=== PATIENT | male | born 1940 | race Caucasian/White ===

== ENCOUNTER 2017-08-09 17:58 | Inpatient (IN) | payer MEDICARE, SELFPAY ==
[2017-08-09 18:00] VITALS: BP 139/89; PULSE 89; RESP 20; TEMP 37.1; O2SAT 99; BMI 26.9
[2017-08-09 18:36] LABS: Anion Gap 9 (5-15); BUN 25 mg/dL (7-18); BUN/Creat Ratio 21.2 RATIO (10-20); Calcium,Total 8.6 mg/dL (8.5-10.1); Chloride 109 mmol/L (98-107); Creatinine, Serum 1.18 mg/dL (0.70-1.30); EST Glomerular Filtration Rate 63 mL/min (>60); Est Glom Filt Rate - Afr Amer 77 mL/min (>60); Estimated Creatinine Clearance 52.41 ml/min; Glucose 91 mg/dL (70-110); Potassium 3.7 mmol/L (3.5-5.1); Sodium Level 146 mmol/L (136-145)
[2017-08-09 18:49] LABS: Prothrombin Time (Protime)PT. 37.2 SECONDS (11.7-14.9)
[2017-08-09 18:50] LABS: Absolute Lymphocyte Count 1.22 X10^3/ul (0.83-4.51); Absolute Neutrophil Count 5.1 X10^3/uL (2.0-7.7); Basophil# 0.02 X10^3/uL; Basophil% 0.3 % (0-1); Eosinophil# 0.02 X10^3/uL; Eosinophils% 0.3 % (0-5); Hematocrit 31.5 % (40-54); Lymphocyte # 1.22 X10^3/ul (4.0); Lymphocyte % 17.7 % (19-41); Mean Corp Hgb Conc 28.6 g/gl (32-36); Mean Corpuscular Hgb 31.4 pg (27.0-32.0); Mean Corpuscular Volume 109.8 fL (80-94); Mean Platelet Vol. 11.4 fl (6.2-12.0); Monocyte# 0.57 X10^3/uL; Monocyte% 8.3 % (0-10); Neutrophil # 5.05 X10^3/uL (2.7-7.7); Neutrophil % 73.3 % (47-70); Platelet Count 185 K/mm3 (150-450); RBC Distribution Width SD 74.7 fl (35.1-43.9); Red Blood Count 2.87 M/mm3 (4.6-6.2); White Blood Count 6.9 K/mm3 (4.4-11.0)
[2017-08-09 18:54] LABS: Differential Indicated SCAN CRITERIA MET; POSITIVE COUNT NO; POSITIVE DIFFERENTIAL NO; POSITIVE MORPHOLOGY YES
--- NOTE | 2017-08-09 19:03 | ED.RN ---
inr called critical
[2017-08-09 19:06] VITALS: RESP 18; TEMP 36.6; O2SAT 94
[2017-08-09 19:17] LABS: Anisocytosis 2+; Differential Comment SCANNED; Microcytosis RARE; Polychromasia 1+
--- NOTE | 2017-08-09 19:53 | RAD_ITS ---
STUDY: X-RAY CHEST REASON FOR EXAM: Male, 77 years old. Shortness of breath TECHNIQUE: Single AP portable view of the chest. COMPARISON: February 08, 2017 FINDINGS: There is hyperinflation of the lungs consistent with chronic obstructive lung disease (COPD). There is no demonstrated pleural abnormality. Sternal cerclage wires are present from a prior sternotomy. Normal mediastinum and yonas. Normal visualized pulmonary arteries. There is atherosclerotic calcification of the aortic arch with tortuosity. Normal visualized thoracic spine. Normal visualized ribs, clavicles, and shoulders. There is no demonstrated abnormality of the visualized soft tissue structures of the upper abdomen. RAD/Chest 1 View (Portable) IMPRESSION: Degenerative changes, as described above. No demonstrated acute cardiopulmonary process. Electronically Signed: Yusuf Lo MD at 20:24 EST , Service support ,
[2017-08-09] MEDS: Ipratropium/Albuterol Sulfate 3 ML AMPUL.NEB INHALATION (20:08)
[2017-08-09 20:09] VITALS: PULSE 76; RESP 18
[2017-08-09 20:44] VITALS: BP 120/67; PULSE 64; RESP 18; O2SAT 96
--- NOTE | 2017-08-09 22:07 | ED.RN ---
PAGED DR. OSULLIVAN
--- NOTE | 2017-08-09 22:29 | ED.RN ---
spoke with blood bank regarding blood orders. will be hours [facility].
[2017-08-09] MEDS: Phytonadione (Vit K) 10 MG/ML Ampul PO (22:36)
[2017-08-09 22:38] VITALS: BP 114/71; PULSE 64; RESP 14; O2SAT 95
--- NOTE | 2017-08-09 22:47 | ED.RN ---
[facility]
--- NOTE | 2017-08-09 23:29 | HP.PCM_ITS ---
Problem List (1) GI bleed Status: Acute Qualifiers: GI bleed type/associated pathology: gastrointestinal hemorrhage with hematemesis Qualified Code(s): K92.0 - Hematemesis (2) Heart failure with reduced ejection fraction Status: Chronic Qualifiers: Heart failure chronicity: unspecified Qualified Code(s): I50.20 - Unspecified systolic (congestive) heart failure (3) COPD (chronic obstructive pulmonary disease) Status: Chronic Qualifiers: COPD type: unspecified COPD Qualified Code(s): J44.9 - Chronic obstructive pulmonary disease, unspecified (4) Anemia Status: Acute Qualifiers: Anemia type: unspecified type Qualified Code(s): D64.9 - Anemia, unspecified (5) Aortocoronary bypass status Status: Chronic (6) Atrial fibrillation Status: Chronic Qualifiers: Atrial fibrillation type: paroxysmal Qualified Code(s): I48.0 - Paroxysmal atrial fibrillation (7) HX: anticoagulation Status: Chronic (8) HLD (hyperlipidemia) Status: Chronic Qualifiers: Hyperlipidemia type: unspecified (9) HTN (hypertension) Status: Chronic Qualifiers: Hypertension type: essential hypertension (10) History of aortic valve replacement Status: Chronic Comment: Mechanical prosthetic (11) Spinal stenosis of lumbar region Status: Chronic Qualifiers: Neurogenic claudication status: unspecified Qualified Code(s): M48.061 - Spinal stenosis, lumbar region without neurogenic claudication (12) Tobacco use disorder Status: Chronic (13) CAD (coronary artery disease) Status: Chronic Qualifiers: Coronary Disease-Associated Artery/Lesion type: unspecified vessel or lesion type [place] vs. transplanted heart: unspecified whether telida or transplanted heart Associated angina: angina presence unspecified Qualified Code(s): I25.10 - Atherosclerotic heart disease of [place] coronary artery without angina pectoris (14) Chronic pain syndrome Status: Chronic Comment: follows with pain Management, Dr. HERNANDEZ History of Present Illness Date of Admission: 08/09/17 Chief Complaint: Dyspnea, weak The patient is a 77 y/o M w/ PMHx: PAF, Chronic COPD, HTN, HLD, CAD s/p CABG, Fe deficiency anemia, Chronic pain syndrome following with pain management, Tobacco use who presents to the [facility] ED on 10/31/16 w/ history of recent increased cough and wheezing w/ dx 08/08/17 with acute COPD exacerbation, started on z-pack and steroid taper with ongoing progressively worsening weakness and dyspnea over the last week. He takes Fe supplementation chronically so his stools are always dark and he denied any marked change from baseline. In the ED work-up included T 97.7, HR 60-70s, BP 120/67, RR 18, 96% on RA, CBC w/ WBC 6.9, Hgb 9 (reportedly [facility] 12), Plts 185 without shift, INR 4 (goal 2.5-3.5), BMP w/ Na 146, Chl 109, BUN/Cr 25/1.18, trop 0.03, guiac +, CXR with chronic changes. In the ED PRBC 1 u ordered given patient symptomatic in addition to duoneb and vitamin K 10 mg po x 1. Past Medical History Past Medical History (Chronic Problems): Chronic Problems Heart failure with reduced ejection fraction (Chronic) COPD (chronic obstructive pulmonary disease) (Chronic) Aortocoronary bypass status (Chronic) Atrial fibrillation (Chronic) 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 HERNANDEZ Right foot pain (Chronic) Synovitis of ankle (Chronic) Allergies No Known Allergies Allergy (Verified 08/09/17 18:04) Home Medications: Ambulatory Orders Medication Instructions Recorded Hydrocodone/Acetaminophen [Vicodin 1 tablet PO Q8H PRN PRN 07/15/13 Hp 10-300 mg Tablet] Isosorbide Mononitrate [Imdur] 30 mg PO QHS 07/15/13 Pantoprazole Sodium [Protonix] 40 mg PO DAILY 07/15/13 Rosuvastatin Calcium [Crestor] 40 mg PO QHS 07/15/13 Zolpidem Tartrate [Ambien] 10 mg PO QHS 07/15/13 Ferrous Sulfate 325 mg PO BIDCM 09/13/15 Albuterol Sulfate [Proair 1 puff INHALATION Q4H PRN PRN 09/25/15 Respiclick] Cholecalciferol (VIT D3) [Vitamin 2,000 unit PO DAILY 09/25/15 D3] Pregabalin [Lyrica] 75 mg PO TID 09/25/15 Nitroglycerin [Nitrostat] 0.4 mg SUBLINGUAL Q5M PRN #30 09/26/15 tablet Aspirin E.C. [Ecotrin] 81 mg PO DAILY@0800 06/24/16 Folic Acid 1 mg PO QHS 06/24/16 Ipratropium/Albuterol Sulfate 3 ml INHALATION Q4H PRN PRN #30 11/02/16 [Duoneb] ampul.neb Metoprolol Tartrate [Lopressor 12.5 mg PO BID 01/20/17 (beta zach)] Docusate Sodium [Colace] 200 mg PO BID PRN PRN capsule 01/27/17 Warfarin Sodium [Coumadin] 10 mg PO SUTHSA 01/30/17 Warfarin [Coumadin] 5 mg PO MOTUWEFR 01/30/17 Budesonide/Formoterol 160/4.5 2 puff INHALATION BID 02/08/17 [Symbicort 160/4.5 Mcg Inhaler (SP)] Furosemide [Lasix] 40 mg PO DAILY 02/08/17 Surgical History: coronary bypass surgery, - - Mechanical aortic valve replacement, back surgeries, RLE ankle surgery recently. Psychiatric History: No pertinent psych hx Lives: Alone Smoking Status: Current every day smoker - 1 ppd. Tobacco Use: Cigarettes Alcohol: None Drugs: None - *Family History Maternal History Items: Diabetes, Heart Disease, Hypertension Paternal History Items: Diabetes, Heart Disease, Hypertension Review of Systems Constitutional: Reports: Malaise, Weakness, Fatigue. Denies: Chills, Fever, Weight Change HEENT: Denies: Head Aches, Sinus Congestion, Sinus Drainage Cardiovascular: Denies: Chest Pain, Palpitations Respiratory: Reports: Cough, Shortness of Breath, Shortness of breath at rest, Shortness of breath upon exertion, Sputum production, Wheezing Gastrointestinal: Denies: Abdominal Pain, Nausea, Vomiting Genitourinary: Denies: Dysuria Musculoskeletal: Denies: Joint Pain, Joint Tenderness Skin: Denies: Rash, Wounds Neurological: Denies: Numbness, Tingling, Focal weakness Psychiatric: Denies: Anxiety, Depression, Homicidal Ideations, Suicidal Ideations Hematologic/ Lymphatic: Reports: Anemia. Denies: Easy Bruising, Easy Bleeding VTE Information - Inpt Only VTE Present on Admission: No VTE Mechan Device Prophylaxis: SCD's VTE Pharm Prophylaxis ordered?: No Reason prophylaxis not ordered:: Treatment Not Indicated Patient Problems: Active and Suspected Problems GI bleed (Acute) Subjective: Seated upright in the ED bed, mildly irritable secondary to wait, otherwise NAD. Objective: Physical Examination: General: awake, alert, oriented x 3 and cooperative, seated upright in the ED bed in no apparent distress. Skin: normal color, turgor, no icterus, cyanosis. HEENT: AT/NC, EOMI, PERRLA, mildly dry MM, no carotid bruits or JVD noted. Lungs: Severely diminished, greater bases, moderate effort, diffuse and expiratory wheezing noted, no rales, ronchi. Heart: Regular rate and rhythm; no gallop, rub audible. Abdomen: soft, NTTP, ND, normal BS, no HSM. Extremities: no cyanosis, clubbing, or edema. Neurological: patient awake, alert, oriented x 3; cognitive function intact; pupils equally reactive to light and accomodation; cranial nerves II-XII grossly normal, moving all 4 extremities, no focal deficits, strength moderately globally decreased secondary to acute presentation. Psychiatric: affect appears mildly irritable, no acute evidence of depressive or anxiety feelings. - Physical Exam Vital Signs Temp Pulse Resp BP Pulse Ox 98 F 64 14 114/71 95 08/09/17 19:06 08/09/17 22:38 08/09/17 22:38 08/09/17 22:38 08/09/17 22:38 Oxygen Delivery Method Room Air Weight: 187 lb 6.287 oz Body Mass Index (BMI) 26.9 Microbiology Past 72 Hours 08/09/17 20:40 Stool Occult Blood (COREEN) - Final Stool Occult Blood Positive Laboratory Tests Past 24 Hrs 08/09/17 08/09/17 08/09/17 18:05 18:05 18:05 WBC 6.9 RBC 2.87 L Hgb 9.0 L Hct 31.5 L MCV 109.8 H MCH 31.4 MCHC 28.6 L RDW 19.0 H RDW Differential 74.7 H Plt Count 185 MPV 11.4 Immature Gran % (Auto) 0.100 Neut % (Auto) 73.3 H Lymph % (Auto) 17.7 L [place] % (Auto) 8.3 Eos % (Auto) 0.3 Baso % (Auto) 0.3 Absolute Neuts (auto) 5.1 Absolute Lymphs (auto) 1.22 Total Counted Not Reportable Differential Comment SCANNED Polychromasia 1+ Anisocytosis 2+ Microcytosis RARE PT 37.2 H INR 4.0 H* Sodium 146 H Potassium 3.7 Chloride 109 H Carbon Dioxide 28.0 Anion Gap 9 BUN 25 H Creatinine 1.18 Estim Creat Clear Calc 52.41 Est GFR (MDRD) Af Amer 77 Est GFR (MDRD) Non-Af 63 BUN/Creatinine Ratio 21.2 H Glucose 91 Calcium 8.6 Troponin I Blood Type Antibody Screen Crossmatch 08/09/17 08/09/17 18:05 20:10 WBC RBC Hgb Hct MCV MCH MCHC RDW RDW Differential Plt Count MPV Immature Gran % (Auto) Neut % (Auto) Lymph % (Auto) [place] % (Auto) Eos % (Auto) Baso % (Auto) Absolute Neuts (auto) Absolute Lymphs (auto) Total Counted Differential Comment Polychromasia Anisocytosis Microcytosis PT INR Sodium Potassium Chloride Carbon Dioxide Anion Gap BUN Creatinine Estim Creat Clear Calc Est GFR (MDRD) Af Amer Est GFR (MDRD) Non-Af BUN/Creatinine Ratio Glucose Calcium Troponin I 0.03 Blood Type Pending Antibody Screen Pending Crossmatch See Detail Assessment/Plan Active and Suspected Problems GI bleed (Acute) The patient is a 77 y/o M w/ PMHx: PAF, Chronic COPD, HTN, HLD, CAD s/p CABG, Fe deficiency anemia, Chronic pain syndrome following with pain management, Tobacco use who presents to the [facility] ED on 10/31/16 w/ history of recent increased cough and wheezing w/ dx 08/08/17 with acute COPD exacerbation, started on z-pack and steroid taper with ongoing progressively worsening weakness and dyspnea over the last week. (1) Acute on Chronic Macrocytic Anemia w/ History additionally Fe Deficiency Anemia secondary to Acute GI Bleed: Admission Hgb 9, recently 12, guiac positive , history of anemia prior w/ unclear etiology with transfusion needs prior, will admit to PCU, maintain on IVFs, admission INR 4.0, given vitamin K 10 mg po x 1 in the ED, will trend INR but defer FFP given AVR history, obtain serial H+H q 6 hours, continue w/ ED plan for PRBC given notably symptomatic. Will maintain on IV PPI. GI consulted, Dr. Valencia noted he would see patient in AM. Continue Fe supplementation. (2) Acute on chronic COPD exacerbation: CXR w/ chronic changes, maintain on oxygen with wean as tolerated to room air, continue ATC duonebs, PRN albuterol, IV methylprednisolone, HOB, IS parameters, defer abx given afebrile, no marked WBC elevation or shift. (3) PAF: Holding coumadin, trending INR given #1, maintain on BB. (4) CAD: Will continue home statin, BB, holding both asa, coumadin. (5) Hypertension: Continue home regimen including lasix, metoprolol, imdur with hold parameters, PRN hydralazine. (6) Hyperlipidemia: Continue home statin regimen. (7) Tobacco Abuse: Encouraged cessation, inpatient consultation per RT, NR if desired. (8) Valvular Heart Disease: s/p AVR, maintained on coumadin which is being held secondary to #1, INR 4 upon admission, vitamin K given, will trend. (9) DVT Prophylaxis: SCDs, coumadin w/ INR trending. Code Visit Inpatient E&M: 42912 Init Hosp L3
--- NOTE | 2017-08-09 23:43 | ED.VISSUMM ---
- ER Visit Summary Date of Service: 08/09/17 Chief Complaint: Abnormal labs History of Present Illness: The patient is a 77 M who [facility] He had his hemoglobin checked yesterday and it was 8.3, decreased from 12 in April. Patient states for 1 week he has been having shortness of breath, bilateral lower extremity edema, and dyspnea on exertion. He states he has had these symptoms before when his blood count was low, and he has had anemia requiring transfusions, but they do not know why he gets anemia. He denies it being from a GI bleed. He states he was started on a Z-Juan and prednisone taper yesterday for COPD exacerbation. History of aortic valve replacement and anemia of unknown origin. Also COPD. Physical Examination: [ Vital signs: afebrile, hemodynamically stable, no hypoxia on room air General: well nourished, well developed, in no distress Skin: warm, dry, no rash, skin is pale and conjunctivae show pallor HEENT: normocephalic and atraumatic; PERRL, EOMI, moist mucous membranes Cardiovascular: regular rate and rhythm without murmurs, mild nonpitting symmetric peripheral edema, 2+ pulses all distal extremities Respiratory: No increased work of breathing, lungs show diffuse wheezing on inspiration and expiration Abdominal: Abdomen is soft, nontender with normoactive bowel sounds, no guarding or rebound, no masses MSK: Moves all extremities, no deformities, normal strength Neuro: Awake and alert, oriented ?4. No facial droop, sensation and motor function intact and symmetric Test Results: Abnormal Lab Results 08/09/17 08/09/17 08/09/17 18:05 18:05 18:05 WBC 6.9 RBC 2.87 L Hgb 9.0 L Hct 31.5 L MCV 109.8 H MCH 31.4 MCHC 28.6 L RDW 19.0 H RDW Differential 74.7 H Plt Count 185 MPV 11.4 Immature Gran % (Auto) 0.100 Neut % (Auto) 73.3 H Lymph % (Auto) 17.7 L [place] % (Auto) 8.3 Eos % (Auto) 0.3 Baso % (Auto) 0.3 Absolute Neuts (auto) 5.1 Absolute Lymphs (auto) 1.22 Total Counted Not Reportable Differential Comment SCANNED Polychromasia 1+ Anisocytosis 2+ Microcytosis RARE PT 37.2 H INR 4.0 H* Sodium 146 H Potassium 3.7 Chloride 109 H Carbon Dioxide 28.0 Anion Gap 9 BUN 25 H Creatinine 1.18 Estim Creat Clear Calc 52.41 Est GFR (MDRD) Af Amer 77 Est GFR (MDRD) Non-Af 63 BUN/Creatinine Ratio 21.2 H Glucose 91 Calcium 8.6 Troponin I Crossmatch 08/09/17 08/09/17 18:05 20:10 WBC RBC Hgb Hct MCV MCH MCHC RDW RDW Differential Plt Count MPV Immature Gran % (Auto) Neut % (Auto) Lymph % (Auto) [place] % (Auto) Eos % (Auto) Baso % (Auto) Absolute Neuts (auto) Absolute Lymphs (auto) Total Counted Differential Comment Polychromasia Anisocytosis Microcytosis PT INR Sodium Potassium Chloride Carbon Dioxide Anion Gap BUN Creatinine Estim Creat Clear Calc Est GFR (MDRD) Af Amer Est GFR (MDRD) Non-Af BUN/Creatinine Ratio Glucose Calcium Troponin I 0.03 Crossmatch See Detail Emergency Department Course and Treatment: EKG showed a sinus rhythm with first-degree block, no ischemic changes. Chest x-ray showed no acute process. Because of patient's lung exam, he was given a DuoNeb, and had some improvement in his respiratory effort. His dyspnea on exertion, shortness of breath at rest, and the lower extremity edema along with his pallor is concerning for possible symptomatic anemia. His labs were repeated and his hemoglobin is 9. This is still a decline from his baseline. Hemoccult was positive for blood, but there was no alyssa blood or melena on exam, no evidence of brisk bleed or bleeding elsewhere. Troponin was within normal limits. INR was 4. Patient was typed and crossed for 1 unit given his symptomatic anemia with the drop in hemoglobin. Patient does have a supratherapeutic INR, however he does not appear to have a brisk life-threatening bleed, and this likely has been a gradual process. Thus he was given oral vitamin K but no other medications were given for rapid reversal, especially since patient has an aortic valve replacement and needs the anticoagulation. Patient was cleared for admission at [place] by the [place]. Patient was discussed with Dr. Valencia, who will consult on the patient if needed for the GI bleed. He was discussed with the hospitalist and admitted for further workup and management. Impression: 1. Symptomatically anemia 2. Supratherapeutic INR 3. GI bleed This note was generated with Oversee dictation software. It may contain incorrect words, spelling, and punctuation that were not noted in review of the chart prior to signing ED Disposition - Plan for ED Patient: Chief Complaint: Abn Labs
[2017-08-10] VITALS (29 sets, daily range): BP systolic 97–130; BP diastolic 48–85; PULSE 57–109; RESP 12–20; TEMP 36.4–36.6; O2SAT 93–99; BMI 27.0
[2017-08-10] MEDS: Isosorbide Mononitrate 60 MG Tablet 30 MG PO ×2 (01:43→21:35)
[2017-08-10] MEDS: Metoprolol Tartrate 25 MG Tablet 12.5 MG PO ×3 (01:43→21:36)
[2017-08-10] MEDS: Pregabalin 25 MG Capsule 75 MG PO ×4 (01:44→21:58)
[2017-08-10] MEDS: 0.9% Normal Saline 1,000 ML 125 ML IV (01:58)
[2017-08-10 03:55] LABS: Magnesium 2.3 mg/dL (1.6-2.6)
[2017-08-10 04:26] LABS: Prothrombin Time (Protime)PT. 34.8 SECONDS (11.7-14.9)
[2017-08-10 05:11] LABS: International Normalized Ratio 3.6
--- NOTE | 2017-08-10 05:30 | EKG12_ITS ---
Test Reason : CP Blood Pressure : / mmHG Vent. Rate : 075 BPM Atrial Rate : 049 BPM P-R Int : 000 ms QRS Dur : 128 ms QT Int : 442 ms P-R-T Axes : 000 -62 035 degrees QTc Int : 493 ms Atrial fibrillation with premature ventricular or aberrantly conducted complexes Left axis deviation Right bundle branch block Abnormal ECG When compared with ECG of 08-FEB-2017 13:43, Atrial fibrillation has replaced Sinus rhythm QRS duration has decreased Confirmed by JOSÉ KO, WEI ([id number]), non linear editor ADELIA MOLINA ([id number]) on 08/12/2017 11:57:31 AM Referred By: Confirmed By:WEI KUMAR MD
[2017-08-10] MEDS: Ipratropium/Albuterol Sulfate 3 ML AMPUL.NEB INHALATION ×3 (07:18→15:15)
[2017-08-10 07:23] LABS: Hematocrit 27.8 % (40-54)
[2017-08-10] MEDS: Furosemide 40 MG Tablet PO (09:48)
[2017-08-10] MEDS: Azithromycin 250 MG Tablet PO (09:48)
[2017-08-10] MEDS: Ferrous Sulfate 325 MG Tablet PO ×2 (09:48→16:32)
[2017-08-10] MEDS: HYDROcodone Bitartrate/Apap 5/325 Tablet PO (12:26)
[2017-08-10] MEDS: 0.9% NaCl Peripheral Flush Adult/Peds IV ×2 (13:40→21:50)
--- NOTE | 2017-08-10 14:21 | CASEMGMT ---
Face to Face with patient for initial transition planning/care coordination assessment. RN ALEXANDER introduced self and role at [facility], pt voices understanding and consents to assessment at this time. Pt sitting up on side of bed in no distress at this time. Pt A/O x4 at this time and answers all questions appropriately at this time. Care providers, pharmacy, and demographics verified. See attached link. Pt voices no further concerns/needs at this time. Advised pt to ask for CM if any further questions/concerns/needs arise, voices understanding. CM to follow for any further discharge planning/needs. [place]AN: [place]
[2017-08-10 14:24] LABS: Anion Gap 11 (5-15); BUN 27 mg/dL (7-18); BUN/Creat Ratio 24.3 RATIO (10-20); Calcium,Total 8.3 mg/dL (8.5-10.1); Chloride 111 mmol/L (98-107); Creatinine, Serum 1.11 mg/dL (0.70-1.30); EST Glomerular Filtration Rate 68 mL/min (>60); Est Glom Filt Rate - Afr Amer 82 mL/min (>60); Estimated Creatinine Clearance 55.72 ml/min; Glucose 96 mg/dL (70-110); Potassium 3.6 mmol/L (3.5-5.1); Sodium Level 148 mmol/L (136-145)
[2017-08-10] MEDS: Electrolyte Solution/Peg's 4000 ML 2000 ML PO (16:32)
[2017-08-10 17:22] LABS: International Normalized Ratio 1.6; Prothrombin Time (Protime)PT. 18.1 SECONDS (11.7-14.9)
--- NOTE | 2017-08-10 17:53 | PCM.PROGNOTE ---
Patient Problems: Active and Suspected Problems GI bleed (Acute) Subjective: Patient was seen and examined today, I transfused another unit of packed red blood cells today-patient had only received one this morning and I felt that it would be beneficial to have 2 in total. I also talked to the patient about his anemia, patient's states that he had a history of anemia before and he has had a colonoscopy several years ago which he states found polyps. Patient also states that he recently had an EGD performed by the [place], he does not feel that they found anything to explain his anemia. Patient was placed on prednisone and Zithromax recently for bronchitis, on exam today, he has minimal wheezing and I really do not believe he needs to continue on corticosteroids. - Physical Exam General: Alert, Oriented x3, Cooperative, No apparent distress, Well developed, Well nourished HEENT: Atraumatic, PERRLA, EOMI, Normocephalic Oral: Moist Mucosa Neck: Supple, No JVD, No Nuchal Rigidity, Trachea Midline, Thyroid Normal Size and Texture Lungs: Clear to auscultation, Normal air movement, No rhonchi, Wheezes - Scattered expiratory wheezes bilaterally which are mild Cardiovascular: Regular rate, Regular Rhythm, Normal S1, Normal S2, No Ectopic Activity, PMI Normal, - - Systolic click is noted over the left sternal border and apex Abdomen: Bowel Sounds Present, Soft, Non Tender, Non-Distended Extremities: No clubbing, No cyanosis, No edema, Capillary Refill Less than 3 Seconds Skin: No rashes, No breakdown Neurological: Cranial nerves II-XII grossly intact, Neuro grossly intact, Motor Exam 5/5 strength throughout, Sensory exam intact to light touch and pain, Coordination normal Psych/Mental Status: Normal Affect, Appropriate, Alert and oriented to time, place, person, mood and affect Vital Signs Temp Pulse Resp BP Pulse Ox 97.5 F L 88 18 118/60 95 08/10/17 16:08/10/17 16:01 08/10/17 16:08/10/17 16:08/10/17 16:01 Oxygen Flow Rate 2 Oxygen Delivery Method Room Air Weight: 85.5 kg Body Mass Index (BMI) 27.0 Intake and Output for Last 24 Hours 08/08/17 08/09/17 08/10/17 23:59 23:59 23:59 Intake Total 4211.6 / 4211.6 Output Total 1150 / 1150 Balance 3061.6 / 3061.6 Laboratory Tests Past 24 Hrs 08/10/17 08/10/17 08/10/17 00:57 02:43 02:43 Hgb 8.0 L Hct 27.8 L PT 34.8 H INR 3.6 H* Sodium Potassium Chloride Carbon Dioxide Anion Gap BUN Creatinine Estim Creat Clear Calc Est GFR (MDRD) Af Amer Est GFR (MDRD) Non-Af BUN/Creatinine Ratio Glucose Calcium Magnesium 2.3 08/10/17 08/10/17 02:43 16:45 Hgb Hct PT 18.1 H INR 1.6 Sodium 148 H Potassium 3.6 Chloride 111 H Carbon Dioxide 26.0 Anion Gap 11 BUN 27 H Creatinine 1.11 Estim Creat Clear Calc 55.72 Est GFR (MDRD) Af Amer 82 Est GFR (MDRD) Non-Af 68 BUN/Creatinine Ratio 24.3 H Glucose 96 Calcium 8.3 L Magnesium Assessment/Plan Active and Suspected Problems GI bleed (Acute) #1 hematochezia with symptomatic anemia-patient's labs will be monitored, INR will be repeated this afternoon, he may require plasma administration if the INR is not trending downward toward 2. Gastroenterology once the INR to be 2 or lower before they are willing to do endoscopy. #2 blood loss anemia-acute on chronic-secondary to suspected GI bleed requiring blood transfusion-acute versus chronic-patient's hemoglobin was 12 in April according to the patient #3 COPD #4 coronary artery disease #5 Mechanical aortic valve #6 supratherapeutic INR-INR will be rechecked, patient was given vitamin K in the emergency room #7 pulmonary hypertension #8 chronic atrial fibrillation #9 ischemic cardiomyopathy-last EF on documented echocardiogram was 45-50% in January 2017 Code Visit Inpatient E&M: 38270 [facility] Hosp L3
[2017-08-10 21:07] LABS: Iron 18 ug/dL (65-175); Iron Binding Capacity,Total 366 ug/dL (250-450); PERCENT IRON SATURATION 4.9 % (15.0-55.0)
[2017-08-10 21:15] LABS: Vitamin B12 545 pg/mL (211-911)
[2017-08-10] MEDS: Folic Acid 1 MG Tablet PO (21:34)
[2017-08-10] MEDS: Atorvastatin Calcium 80 MG Tablet PO (21:36)
[2017-08-10] MEDS: Zolpidem Tartrate 5 MG Tablet PO (21:44)
[2017-08-11] VITALS (19 sets, daily range): BP systolic 99–134; BP diastolic 59–74; PULSE 51–113; RESP 12–20; TEMP 35.8–36.7; O2SAT 92–97; BMI 27.0
[2017-08-11] MEDS: Electrolyte Solution/Peg's 4000 ML 2000 ML PO (06:28)
[2017-08-11] MEDS: Pregabalin 75 MG Capsule PO ×3 (06:34→21:20)
[2017-08-11 06:50] LABS: Absolute Neutrophil Count 3.9 X10^3/uL (2.0-7.7); Hematocrit 31.7 % (40-54); Hemoglobin 9.5 g/dl (13.0-16.5); Lymphocyte % 12.4 % (19-41); Mean Corpuscular Hgb 30.8 pg (27.0-32.0); Mean Corpuscular Volume 102.9 fL (80-94); Mean Platelet Vol. 11.2 fl (6.2-12.0); Monocyte# 0.35 X10^3/uL; Monocyte% 7.2 % (0-10); Neutrophil # 3.87 X10^3/uL (2.7-7.7); Neutrophil % 80.2 % (47-70); Platelet Count 130 K/mm3 (150-450); RBC Distribution Width CV 22.2 % (11.6-14.6); RBC Distribution Width SD 81.5 fl (35.1-43.9); Red Blood Count 3.08 M/mm3 (4.6-6.2); White Blood Count 4.8 K/mm3 (4.4-11.0)
[2017-08-11 06:52] LABS: Differential Indicated SCAN CRITERIA MET; POSITIVE COUNT NO; POSITIVE DIFFERENTIAL YES; POSITIVE MORPHOLOGY YES
[2017-08-11 06:53] LABS: Anisocytosis 3+; Differential Comment SCANNED; Hypochromasia 1+; Microcytosis 2+; Polychromasia RARE; Target Cells 1+
[2017-08-11 06:56] LABS: Anion Gap 9 (5-15); BUN 27 mg/dL (7-18); Calcium,Total 7.8 mg/dL (8.5-10.1); Chloride 108 mmol/L (98-107); Creatinine, Serum 1.04 mg/dL (0.70-1.30); EST Glomerular Filtration Rate 73 mL/min (>60); Est Glom Filt Rate - Afr Amer 89 mL/min (>60); Estimated Creatinine Clearance 59.47 ml/min; Glucose 123 mg/dL (70-110); Sodium Level 144 mmol/L (136-145)
[2017-08-11] MEDS: Ipratropium/Albuterol Sulfate 3 ML AMPUL.NEB INHALATION ×2 (07:46→19:59)
[2017-08-11] MEDS: 0.9% NaCl Peripheral Flush Adult/Peds IV ×2 (09:34→21:20)
[2017-08-11] MEDS: Furosemide 40 MG Tablet PO (09:35)
[2017-08-11] MEDS: Ferrous Sulfate 325 MG Tablet PO ×2 (09:35→16:49)
[2017-08-11] MEDS: Metoprolol Tartrate 25 MG Tablet 12.5 MG PO ×2 (09:35→21:20)
[2017-08-11] MEDS: Azithromycin 250 MG Tablet PO (09:35)
--- NOTE | 2017-08-11 11:33 | NURSING ---
Called report to Cecy GA in PACU
--- NOTE | 2017-08-11 13:30 | COLBX_PTH ---
PATIENT: REBECCA ARRIOLA I LOC: [facility] U#:[id number] AGE/SX: 77/M ROOM: [facility] RE08/09/[address]: Dr. Jerad Nichole, : 1940 BED: 1 DIS: 08/12/2017 SPEC #: [id number] RECD: 08/11/17 15:21 STATUS: ANYI REQ #: [id number] ANGEL: 08/11/17 13:[address]: Ketan Valencia DEPT: SURGICAL PATHOLOGY RECD BY: Darien Conklin ENTERED: 08/12/17 07:31 SP TYPE: COLON BX OTHR DR: MD Dr. Jerad Calderon, [facility] Tissues: Transverse colon Procedures: Surgery Specimen Level IV Comments: @ Ordering doctor for SUIV edited from to @ by RGOOD at 08/15/17 0808 @ Submitting doctor edited from to @ by RGOOD at 08/15/17 0808 HEADER OPERATION: Colonoscopy PRE-OP DIAGNOSIS: Anemia TISSUE SUBMITTED: Transverse colon polyp; rule out adenoma MICROSCOPIC DIAGNOSIS Transverse colon polyp, biopsy: Fragments of tubular adenoma. AM:marcella 08/15/17 MICROSCOPIC DESCRIPTION Slides are reviewed. GROSS DESCRIPTION Received in fixative is one container labeled with the patient's name and designated transverse colon polyp. The specimen consists of multiple irregular fragments of light frausto soft tissue that in aggregate measure 0.6 x 0.5 x 0.1 cm. The specimen is totally submitted in one cassette. / AM:marcella 08/12/17 TC:5 CPT: 64065
--- NOTE | 2017-08-11 13:47 | PCM.OP.BLANK ---
Operative Report Date of Procedure: 08/11/17 Preop diagnosis: Patient with anemia and guaiac positive stools on Coumadin Postop diagnosis: EGD with biopsy mild gastritis no active bleeding in the upper GI tract Anesthesia: Provided a MAC Instrument: Olympus upper and Informed consent was taken prior to procedure. The patient was brought to the endoscopy suite[ she] was placed left shoulder down. Anesthesia provided the MAC. The scope was passed under direct visualization down into the esophagus. The proximal esophagus was normal Z line was intact at 39 cm from the incisors no evidence of esophageal varices. The stomach was easily insufflated no evidence of peptic ulcer disease or bleeding there was some erythema in the prepyloric region the bulbar duodenum was normal the sweep of the duodenum was normal. The scope was withdrawn back into the stomach retroflexion was performed there was no evidence of bleeding around the cardia no evidence of gastric varices. Careful examination the stomach showed no evidence of vascular malformations. Biopsies were taken of the antral mucosa for testing for H. pylori the stomach was decompressed and scope was withdrawn and the patient tolerated procedure well. Impression: Anemia guaiac positive stools patient on Coumadin no evidence of upper GI bleeding Plan: will proceed onto colonoscopy continue the patient on iron supplement
--- NOTE | 2017-08-11 13:51 | PCM.OP.BLANK ---
Operative Report Date of Procedure: 08/11/17 Preop diagnosis: [Patient with anemia guaiac positive stools] Postop diagnosis: Colonoscopy [T0 the cecum with snare polypectomies performed] Anesthesia:[Provided a MAC] Instrument:[Olympus adjustable pediatric colonoscope] Informed consent was taken prior to procedure. The patient was brought to the endoscopy suite and placed in the left shoulder down. Anesthesia provided the MAC. Rectal exam was performed prior to inserting the scope. The colonoscope was passed into the rectum rectal mucosa was normal. Moving up the left colon there was some scattered diverticuli there was some tortuosity of the left colon. Psoas: There were 2 sessile polyps noted in the mid to distal transverse area the patient was grounded using hot snare both polyps were removed. Scope was then advanced towards the hepatic flexure and down the right colon retained tubal matter of the right colon I could not exclude a small polyp or vascular malformations in the right colon there were no mass or large polyps. Backup the right colon the mucosa remain normal across the transverse colon there were no large polyps seen. Below the splenic flexure into the left colon there was some scattered diverticuli there were no large polyps seen retroflexion performed the rectum showed some small internal hemorrhoids the colon was decompressed and the patient tolerated procedure well. Impression: Guaiac positive stools and anemia no evidence of lower GI bleed Plan: Follow-up the pathology of the polyps repeat a colonoscopy in 5 years may start the patient's Coumadin tomorrow evening
[2017-08-11] MEDS: Enoxaparin 100 MG/ML Syringe 90 MG SC (17:54)
--- NOTE | 2017-08-11 20:43 | PCM.PROGNOTE ---
Subjective: Seen and examined today, he underwent a colonoscopy with removal of a small sessile polyp, he also underwent an EGD which showed some mild gastritis. These findings do not account for the patient's anemia however. I have restarted the patient's Coumadin tonight at 7.5 mg daily, I gave him an injection of Lovenox 90 mg subcu. I will recheck the patient's H&H tomorrow as well as an INR. Patient has no complaints at the present time tonight, he appears comfortable and does not complain of any chest pain or shortness of breath. - Physical Exam General: Alert, Oriented x3, Cooperative, No apparent distress, Well developed, Well nourished HEENT: Atraumatic, PERRLA, EOMI, Normocephalic Oral: Moist Mucosa Neck: Supple, No JVD, Negative Carotid Bruits Lungs: Clear to auscultation, Normal air movement Cardiovascular: No murmurs, PMI Normal, Irregular Rate, No rub noted Abdomen: Bowel Sounds Present, Soft, Non Tender, Non-Distended, No hernias noted Extremities: No edema, Capillary Refill Less than 3 Seconds Skin: No rashes, No breakdown Musculoskeletal: No Tenderness to Palpation of Joints or Extremities Neurological: Cranial nerves II-XII grossly intact, Neuro grossly intact, Sensory exam intact to light touch and pain, Coordination normal Psych/Mental Status: Normal Affect, Appropriate, Alert and oriented to time, place, person, mood and affect Vital Signs Temp Pulse Resp BP Pulse Ox 98.0 F 84 18 128/68 H 92 08/11/17 15:20 08/11/17 20:01 08/11/17 20:01 08/11/17 15:20 08/11/17 15:20 Oxygen Flow Rate 2 Oxygen Delivery Method Nasal Cannula Weight: 85.5 kg Body Mass Index (BMI) 27.0 Intake and Output for Last 24 Hours 08/09/17 08/10/17 08/11/17 23:59 23:59 23:59 Intake Total 4433.6 / 4433.6 3486.8 / 3486.8 Output Total 1300 / 1300 1375 / 1375 Balance 3133.6 / 3133.6 2111.8 / 2111.8 Laboratory Tests Past 24 Hrs 01/24/18 01/25/18 01/25/18 02:44 06:15 06:15 WBC 4.8 RBC 3.08 L Hgb 9.5 L Hct 31.7 L MCV 102.9 H MCH 30.8 MCHC 30.0 L RDW 22.2 H RDW Differential 81.5 H Plt Count 130 L MPV 11.2 Immature Gran % (Auto) 0.200 Neut % (Auto) 80.2 H Lymph % (Auto) 12.4 L Stephenson % (Auto) 7.2 Eos % (Auto) 0.0 Baso % (Auto) 0.0 Absolute Neuts (auto) 3.9 Absolute Lymphs (auto) 0.60 L Total Counted Not Reportable Differential Comment SCANNED Polychromasia RARE Hypochromasia 1+ Anisocytosis 3+ Microcytosis 2+ Target Cells 1+ Sodium 144 Potassium 4.0 Chloride 108 H Carbon Dioxide 27.0 Anion Gap 9 BUN 27 H Creatinine 1.04 Estim Creat Clear Calc 59.47 Est GFR (MDRD) Af Amer 89 Est GFR (MDRD) Non-Af 73 BUN/Creatinine Ratio 26.0 H Glucose 123 H Calcium 7.8 L Iron 18 L TIBC 366 Iron Saturation 4.9 L Assessment/Plan #1 hematochezia with symptomatic anemia-etiology unclear, labs will be repeated in the morning, patient will need to be discharged on Lovenox short-term #2 blood loss anemia-acute on chronic-secondary to suspected GI bleed requiring blood transfusion-acute versus chronic-patient's hemoglobin was 12 in April according to the patient, labs will be repeated in the morning #3 COPD #4 coronary artery disease #5 Mechanical aortic valve #6 supratherapeutic INR-resolved, patient will be started back on Coumadin #7 pulmonary hypertension #8 chronic atrial fibrillation #9 ischemic cardiomyopathy-last EF on documented echocardiogram was 45-50% in January 2017 Code Visit Inpatient E&M: 01084 Subs Hosp L2
[2017-08-11] MEDS: Folic Acid 1 MG Tablet PO (21:20)
[2017-08-11] MEDS: Zolpidem Tartrate 5 MG Tablet PO (21:20)
[2017-08-11] MEDS: Atorvastatin Calcium 80 MG Tablet PO (21:20)
[2017-08-11] MEDS: Isosorbide Mononitrate 60 MG Tablet 30 MG PO (21:20)
[2017-08-11] MEDS: HYDROcodone Bitartrate/Apap 5/325 Tablet PO (21:27)
[2017-08-12 03:00] VITALS: PULSE 69
[2017-08-12 03:15] VITALS: BP 115/53; PULSE 66; RESP 20; TEMP 36.9; O2SAT 93
[2017-08-12] MEDS: Pregabalin 75 MG Capsule PO (05:36)
[2017-08-12] MEDS: Enoxaparin 100 MG/ML Syringe 90 MG SC (05:37)
[2017-08-12 06:57] VITALS: PULSE 74; RESP 16; O2SAT 91
[2017-08-12] MEDS: Ipratropium/Albuterol Sulfate 3 ML AMPUL.NEB INHALATION (06:57)
[2017-08-12 06:58] VITALS: PULSE 81
[2017-08-12 07:17] LABS: Hemoglobin 9.7 g/dl (13.0-16.5)
[2017-08-12 08:56] LABS: International Normalized Ratio 1.4; Prothrombin Time (Protime)PT. 16.4 SECONDS (11.7-14.9)
[2017-08-12 09:18] VITALS: BP 120/60; PULSE 62; RESP 18; TEMP 36.8; O2SAT 92
[2017-08-12] MEDS: Furosemide 40 MG Tablet PO (09:23)
[2017-08-12] MEDS: Ferrous Sulfate 325 MG Tablet PO (09:23)
[2017-08-12 09:24] VITALS: BP 120/60; PULSE 62
[2017-08-12] MEDS: Metoprolol Tartrate 25 MG Tablet 12.5 MG PO (09:24)
[2017-08-12] MEDS: Pantoprazole Sodium 40 MG Tablet PO (09:24)
[2017-08-12] MEDS: Azithromycin 250 MG Tablet PO (09:24)
--- NOTE | 2017-08-12 11:55 | PCM.DC ---
- Discharge Diagnoses Current Active Problems: Current Active and Chronic Problems GI bleed (Acute) You will use the following diet at home:: No restrictions Your food should be the consistency of: Regular Your liquids should be the consistency of: Regular/Thin Discharge Activity: Return to Normal Activity Weight Bearing Status: Full weight bearing Additional Instructions: discuss getting capsule endoscopy done by electromechanical equipment tester if anemia continues Allergies/Adverse Reactions: Allergies No Known Allergies Allergy (Verified 08/09/17 18:04) Medications to take at Discharge Hydrocodone/Acetaminophen [Vicodin Hp 10-300 mg Tablet] 1 tablet PO Q8H PRN PRN 07/15/13 Isosorbide Mononitrate [Imdur] 30 mg PO DAILY 07/15/13 Pantoprazole Sodium [Protonix] 40 mg PO DAILY 07/15/13 Rosuvastatin Calcium [Crestor] 40 mg PO QHS 07/15/13 Zolpidem Tartrate [Ambien] 10 mg PO QHS 07/15/13 Ferrous Sulfate 325 mg PO BIDCM 09/13/15 Albuterol Sulfate [Proair Respiclick] 1 puff INHALATION Q4H PRN PRN 09/25/15 Cholecalciferol (VIT D3) [Vitamin D3] 2,000 unit PO DAILY 09/25/15 Pregabalin [Lyrica] 75 mg PO TID 09/25/15 Nitroglycerin [Nitrostat] 0.4 mg SUBLINGUAL Q5M PRN #30 tablet 09/26/15 Aspirin E.C. [Ecotrin] 81 mg PO DAILY@0800 06/24/16 Folic Acid 1 mg PO QHS 06/24/16 Ipratropium/Albuterol Sulfate [Duoneb] 3 ml INHALATION Q4H PRN PRN #30 ampul.neb 11/02/16 Metoprolol Tartrate [Lopressor (beta zach)] 12.5 mg PO BID 01/20/17 Docusate Sodium [Colace] 200 mg PO BID PRN PRN capsule 01/27/17 Budesonide/Formoterol 160/4.5 [Symbicort 160/4.5 Mcg Inhaler (SP)] 2 puff INHALATION BID 02/08/17 Furosemide [Lasix] 40 mg PO DAILY 02/08/17 Enoxaparin Sodium [Lovenox] 80 mg SQ BID #1 syringe 08/12/17 Warfarin Sodium [Coumadin] 1 mg PO DAILY #30 tab 08/12/17 Warfarin [Coumadin] 5 mg PO DAILY #1 tablet 08/12/17 The following prescriptions were given: Warfarin [Coumadin] 5 mg PO DAILY #1 tablet Warfarin Sodium [Coumadin] 1 mg PO DAILY #30 tab Enoxaparin Sodium [Lovenox] 80 mg SQ BID #1 syringe [facility] Care Physician: [facility] [Primary Care Provider] - Please follow up with your Primary Care Physician in: appointment to see his physician in two weeks, get Hb and INR done 08/15/17
--- NOTE | 2017-08-12 11:58 | DCINST_ITS ---
- Discharge Diagnoses Current Active Problems: Current Active and Chronic Problems GI bleed (Acute) You will use the following diet at home:: No restrictions Your food should be the consistency of: Regular Your liquids should be the consistency of: Regular/Thin Discharge Activity: Return to Normal Activity Weight Bearing Status: Full weight bearing Additional Instructions: discuss getting capsule endoscopy done by aging room hand if anemia continues Allergies/Adverse Reactions: Allergies No Known Allergies Allergy (Verified 08/09/17 18:04) Medications to take at Discharge Hydrocodone/Acetaminophen [Vicodin Hp 10-300 mg Tablet] 1 tablet PO Q8H PRN PRN 07/15/13 Isosorbide Mononitrate [Imdur] 30 mg PO DAILY 07/15/13 Pantoprazole Sodium [Protonix] 40 mg PO DAILY 07/15/13 Rosuvastatin Calcium [Crestor] 40 mg PO QHS 07/15/13 Zolpidem Tartrate [Ambien] 10 mg PO QHS 07/15/13 Ferrous Sulfate 325 mg PO BIDCM 09/13/15 Albuterol Sulfate [Proair Respiclick] 1 puff INHALATION Q4H PRN PRN 09/25/15 Cholecalciferol (VIT D3) [Vitamin D3] 2,000 unit PO DAILY 09/25/15 Pregabalin [Lyrica] 75 mg PO TID 09/25/15 Nitroglycerin [Nitrostat] 0.4 mg SUBLINGUAL Q5M PRN #30 tablet 09/26/15 Aspirin E.C. [Ecotrin] 81 mg PO DAILY@0800 06/24/16 Folic Acid 1 mg PO QHS 06/24/16 Ipratropium/Albuterol Sulfate [Duoneb] 3 ml INHALATION Q4H PRN PRN #30 ampul.neb 11/02/16 Metoprolol Tartrate [Lopressor (beta zach)] 12.5 mg PO BID 01/20/17 Docusate Sodium [Colace] 200 mg PO BID PRN PRN capsule 01/27/17 Budesonide/Formoterol 160/4.5 [Symbicort 160/4.5 Mcg Inhaler (SP)] 2 puff INHALATION BID 02/08/17 Furosemide [Lasix] 40 mg PO DAILY 02/08/17 Enoxaparin Sodium [Lovenox] 80 mg SQ BID #1 syringe 08/12/17 Warfarin Sodium [Coumadin] 1 mg PO DAILY #30 tab 08/12/17 Warfarin [Coumadin] 5 mg PO DAILY #1 tablet 08/12/17 The following prescriptions were given: Warfarin [Coumadin] 5 mg PO DAILY #1 tablet Warfarin Sodium [Coumadin] 1 mg PO DAILY #30 tab Enoxaparin Sodium [Lovenox] 80 mg SQ BID #1 syringe [facility] Care Physician: [facility] [Primary Care Provider] - Please follow up with your Primary Care Physician in: appointment to see his physician in two weeks, get Hb and INR done 08/15/17
--- NOTE | 2017-08-14 08:07 | DS.PCM_ITS ---
Discharge Date and Diagnosis Date of Admission: 08/09/17 Date of Discharge: 08/12/17 - Primary Discharge Diagnosis #1 acute on chronic blood loss anemia suspected from the gastrointestinal tract but exact etiology not confirmed, requiring blood transfusion #2 supratherapeutic INR #3 gastritis #4 colon polyp #5 chronic atrial fibrillation #6 mechanical aortic valve #7 ischemic cardiomyopathy #8 coronary artery disease #9 COPD - Secondary Discharge Diagnosis Chronic Problems Heart failure with reduced ejection fraction (Chronic) COPD (chronic obstructive pulmonary disease) (Chronic) Aortocoronary bypass status (Chronic) Atrial fibrillation (Chronic) 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 HERNANDEZ Right foot pain (Chronic) Synovitis of ankle (Chronic) Hospital Course and Treatment Operations: None Procedures: Blood transfusion, Colonoscopy, EGD Summary of Care Provided: The patient is a 77 year old M seen in the emergency room at [facility] after being sent there for evaluation after abnormal outpatient labs which showed a low hemoglobin. Labs obtained in the emergency room showed a hemoglobin of 9-the last time patient's hemoglobin was checked was April 2017 and it reportedly was 12. Patient's INR was also checked in the emergency room it was 4. Hemoccult of the stool was positive. Patient was admitted to PCU, he received blood transfusion, and he was given vitamin K to reverse his INR for colonoscopy and EGD. Colonoscopy and EGD was performed which showed some mild gastritis and a small polyp which was removed, these findings were not felt to reflect a reason for the patient's acute on chronic anemia. Discussions were carried out with the patient's daughter and it was emphasized that the patient should have more frequent blood draws and be seen by a GI specialist for a possible capsule endoscopy as an outpatient. Patient receives his care at the [facility]. On 08/12/17, patient was seen and examined felt in stable condition for discharge home, he was bridged with Lovenox as an outpatient until his INR was therapeutic, he was instructed to resume his Coumadin as an outpatient. Discharge Activity: Return to Normal Activity Weight Bearing Status: Full weight bearing Home Medications: Medications to take at Discharge Hydrocodone/Acetaminophen [Vicodin Hp 10-300 mg Tablet] 1 tablet PO Q8H PRN PRN 07/15/13 Isosorbide Mononitrate [Imdur] 30 mg PO DAILY 07/15/13 Pantoprazole Sodium [Protonix] 40 mg PO DAILY 07/15/13 Rosuvastatin Calcium [Crestor] 40 mg PO QHS 07/15/13 Zolpidem Tartrate [Ambien] 10 mg PO QHS 07/15/13 Ferrous Sulfate 325 mg PO BIDCM 09/13/15 Albuterol Sulfate [Proair Respiclick] 1 puff INHALATION Q4H PRN PRN 09/25/15 Cholecalciferol (VIT D3) [Vitamin D3] 2,000 unit PO DAILY 09/25/15 Pregabalin [Lyrica] 75 mg PO TID 09/25/15 Nitroglycerin [Nitrostat] 0.4 mg SUBLINGUAL Q5M PRN #30 tablet 09/26/15 Aspirin E.C. [Ecotrin] 81 mg PO DAILY@0800 06/24/16 Folic Acid 1 mg PO QHS 06/24/16 Ipratropium/Albuterol Sulfate [Duoneb] 3 ml INHALATION Q4H PRN PRN #30 ampul.neb 11/02/16 Metoprolol Tartrate [Lopressor (beta zach)] 12.5 mg PO BID 01/20/17 Docusate Sodium [Colace] 200 mg PO BID PRN PRN capsule 01/27/17 Budesonide/Formoterol 160/4.5 [Symbicort 160/4.5 Mcg Inhaler (SP)] 2 puff INHALATION BID 02/08/17 Furosemide [Lasix] 40 mg PO DAILY 02/08/17 Enoxaparin Sodium [Lovenox] 80 mg SQ BID #1 syringe 08/12/17 Warfarin Sodium [Coumadin] 1 mg PO DAILY #30 tab 08/12/17 Warfarin [Coumadin] 5 mg PO DAILY #1 tablet 08/12/17 Following Prescrptions Were Given to Patient: Warfarin [Coumadin] 5 mg PO DAILY #1 tablet Warfarin Sodium [Coumadin] 1 mg PO DAILY #30 tab Enoxaparin Sodium [Lovenox] 80 mg SQ BID #1 syringe [facility] Physician[facility] [Primary Care Provider] - Please follow up with your Primary Care Physician in: appointment to see his physician in two weeks, get Hb and INR done 08/15/17 [facility] Follow Up With[facility] Disposition: Home Minutes spent on discharge:: 38 Patient Condition:: Stable Meaningful Use Info Meaningful Use Diagnoses (Choose all that apply): None applicable Code Visit Inpatient E&M: 47775 Disch Hosp
== END 2017-08-12 12:50 | disposition home or self-care (01) | DRG 812 ==
LOC: ED 19:58 → PCU 23:45
PROVIDERS: Internal Medicine Gastroenterology; Admitting Provider Family Medicine; Emergency Provider Emergency Medicine; Visit Provider Internal Medicine
PROC: 0DJD8ZZ Inspection of Lower Intestinal Tract, Via Natural or Artificial Opening Endoscopic (ICD-10-PCS; CPT 45378; principal; 2017-08-11 12:40)
DX: D62 Acute posthemorrhagic anemia (principal); I27.20 Pulmonary hypertension, unspecified; I48.2 Chronic atrial fibrillation; I11.0 Hypertensive heart disease with heart failure; I50.20 Unspecified systolic (congestive) heart failure; J44.1 Chronic obstructive pulmonary disease with (acute) exacerbation; K92.2 Gastrointestinal hemorrhage, unspecified; I25.5 Ischemic cardiomyopathy; I25.10 Atherosclerotic heart disease of native coronary artery without angina pectoris; K63.5 Polyp of colon; D50.0 Iron deficiency anemia secondary to blood loss (chronic); E78.5 Hyperlipidemia, unspecified; F17.210 Nicotine dependence, cigarettes, uncomplicated; Z79.01 Long term (current) use of anticoagulants; K29.70 Gastritis, unspecified, without bleeding; Z95.2 Presence of prosthetic heart valve; Z95.1 Presence of aortocoronary bypass graft; M48.061 Spinal stenosis, lumbar region without neurogenic claudication; G89.4 Chronic pain syndrome; J44.9 Chronic obstructive pulmonary disease, unspecified; R79.1 Abnormal coagulation profile
CPT/HCPCS: 36415; 71045; 80048; 82274; 82607; 83540; 83550; 83735; 84484; 85014; 85018; 85025; 85610; 86850; 86900; 86902; 86920; 86922; 88305; 93005; 94640; 97165; 97802; 99285; 99406; J7030; J7040; P9016; A4216

== ENCOUNTER → 2018-01-19 09:27 | Outpatient (CLI) | payer OTHER, MEDICARE, SELFPAY ==
--- NOTE | 2018-01-19 09:42 | RAD_ITS ---
STUDY: X-RAY - LUMBAR SPINE REASON FOR EXAM: Male, 77 years old. Chronic low back pain TECHNIQUE: 5 view(s) of the lumbar spine were obtained. COMPARISON: Prior lumbar spine films of May 22, 2017. FINDINGS: Straightening of the lumbar spine. There is no substantial scoliosis. The patient is status post laminectomy and posterior spinal fusion of L4, L5 and S1 with posterior fusion rods and pedicle screws. There is a bilateral bone grafting. The hardware appears to be in good position and is not changed from prior exam. There is a effusion of the L4-L5 and S1 levels. Normal vertebral body height. Mild disc narrowing and spondylitic endplate changes at L1 to. Moderate disc narrowing and spondylitic endplate changes at L2-3 and L3-4. Atherosclerotic vascular calcifications of the aorta and iliac arteries. RAD/L/S Spine Min 4 Views IMPRESSION: No acute lumbar changes. Continued straightening of the lumbar spine status post posterior hardware fusion of L4, L5 and S1 without change in alignment or hardware position. The intervening disc spaces are fused. Lateral bone graft fusion at the same level. Mild to moderate degenerative disc narrowing and spondylitic endplate changes at upper lumbar levels which are not substantially changed from the prior examination. Electronically Signed: Lydia Aguayo MD at 23:59 EDT , Service support ,
== END ==
PROVIDERS: PCP Family Medicine; Visit Provider Anesthesiology Pain Medicine
DX: M54.5 Low back pain (principal)
CPT/HCPCS: 72110

== ENCOUNTER 2018-03-25 12:41 | Emergency (ER) | payer MEDICARE, OTHER, SELFPAY ==
[2018-03-25 12:43] VITALS: BP 114/59; PULSE 62; RESP 18; TEMP 36.8; O2SAT 96; BMI 26.9
[2018-03-25 12:46] VITALS: O2SAT 98
[2018-03-25] MEDS: Ondansetron ODT 4 MG Tablet PO (13:01)
[2018-03-25] MEDS: morphine 8 MG/ML Syringe SC (13:01)
[2018-03-25] MEDS: Ketorolac 15 MG/ML Vial IV (15:29)
[2018-03-25 15:50] LABS: Absolute Lymphocyte Count 0.53 X10^3/ul (0.83-4.51); Absolute Neutrophil Count 2.9 X10^3/uL (2.0-7.7); Basophil# 0.03 X10^3/uL; Basophil% 0.8 % (0-1); Eosinophil# 0.08 X10^3/uL; Eosinophils% 2.1 % (0-5); Hemoglobin 9.4 g/dl (13.0-16.5); Lymphocyte # 0.53 X10^3/ul (4.0); Lymphocyte % 13.7 % (19-41); Mean Corp Hgb Conc 30.3 g/gl (32-36); Mean Corpuscular Volume 102.3 fL (80-94); Mean Platelet Vol. 10.2 fl (6.2-12.0); Monocyte# 0.33 X10^3/uL; Monocyte% 8.5 % (0-10); Neutrophil # 2.89 X10^3/uL (2.7-7.7); Neutrophil % 74.9 % (47-70); Platelet Count 176 K/mm3 (150-450); RBC Distribution Width CV 15.3 % (11.6-14.6); RBC Distribution Width SD 57.1 fl (35.1-43.9); Red Blood Count 3.03 M/mm3 (4.6-6.2); White Blood Count 3.9 K/mm3 (4.4-11.0)
[2018-03-25 16:02] LABS: POSITIVE COUNT NO; POSITIVE DIFFERENTIAL YES; POSITIVE MORPHOLOGY NO
[2018-03-25 16:03] LABS: Differential Indicated SCAN CRITERIA MET
[2018-03-25 16:05] LABS: Anion Gap 6 (5-15); BUN 26 mg/dL (7-18); BUN/Creat Ratio 21.5 RATIO (10-20); Chloride 107 mmol/L (98-107); Creatinine, Serum 1.21 mg/dL (0.70-1.30); EST Glomerular Filtration Rate 61 mL/min (>60); Est Glom Filt Rate - Afr Amer 74 mL/min (>60); Estimated Creatinine Clearance 51.11 ml/min; Glucose 152 mg/dL (74-106); Potassium 3.4 mmol/L (3.5-5.1); Sodium Level 143 mmol/L (136-145)
[2018-03-25 16:12] LABS: Prothrombin Time (Protime)PT. 38.9 SECONDS (11.7-14.9)
[2018-03-25 16:14] VITALS: BP 145/67; PULSE 67; RESP 18; O2SAT 93
[2018-03-25 16:30] LABS: Differential Comment SCANNED
--- NOTE | 2018-03-25 16:30 | ED.VISSUMM ---
- ER Visit Summary Date of Service: 03/25/18 Chief Complaint: Right elbow left leg injury History of Present Illness: The patient is a 77 M who slipped and fell in the garage as he was attempting to leave it today. He notes bruising and pain to the right medial elbow. He notes distal left leg pain. He has a history of atrial fibrillation coronary artery disease and is [facility] R[facility]'s mechanical valve replacement. He is on Coumadin. He sees Dr. Villarreal for foot and ankle care. He denies striking his head or have any neck pain. No change in his chronic back issues. Physical Examination: Afebrile vital signs stable Patient has abrasion contusion to the right medial elbow. Full range of motion. Minimally tender to palpation The left ankle show significant swelling laterally as well as pain medially and posteriorly. Neurovascular intact distal. Test Results: X-rays of the right elbow were negative. X-rays of the tibia and fibula which were obtained through nursing protocol demonstrated a distal fibular fracture and in my opinion a distal tibial fracture. Therefore ankle films were ordered which in my opinion demonstrate a trimalleolar fracture. Emergency Department Course and Treatment: Patient received morphine and Zofran. Patient was placed in a Ortho-Glass posterior stirrup splint. Patient was able to ambulate without any difficulty on crutches. I spoke with Dr. Hale who is covering for his surgeon will be happy to follow with the patient and relay the message to his surgeon. I write the patient pain medicine at home. He is to elevate as much as possible. He is to ice on the anterior aspect of the splint. The patient is to monitor for circulatory changes of the foot. His INR today is 4 therefore we will have him hold his Coumadin tonight and tomorrow. He is to have his INR rechecked on Tuesday. Return if worsening or concerns. He is to have family stay with them. We did speak at length regarding admission and how we could offer him PT eval and ensure that he is safe at home but he ensures me that he is. Impression: 1. Left trimalleolar fracture 2. Right elbow contusion 3. Splint by physician This note was generated with [employer] Lock dictation software. It may contain incorrect words, spelling, and punctuation that were not noted in review of the chart prior to signing ED Disposition - Plan for ED Patient: Disposition: Home or Assisted Living Chief Complaint: Fall Instructions: ED Fx Ankle General Prescriptions: Hydrocodone/Acetaminophen [[place] 5-325 Tablet] 1 - 2 ea PO 4X/DAY PRN PRN 3 Days #12 tab PRN Reason: Pain Referrals: Mary Alice Villarreal DPM [STAFF PHYSICIAN] - As soon as possible Additional Instructions: Today her INR is 4. I would recommend you hold your Coumadin dose tonight and tomorrow night and have it checked on Tuesday. Do not bear any weight on this left leg. Elevate the leg as much as possible above the level of your heart. Apply ice anteriorly to the injury. These injuries resulted in a tremendous amount of swelling. Please monitor your toes for signs of decreased blood flow such as but not limited to cold, white, decreased ability to return to pink when squeezed. As discussed in the room if you feel unsafe at any point please return to the emergency department. We can have physical therapy and social work work with you to ensure safety at home. I would highly recommend you have an adult stay with you the next several days.
[2018-03-25 17:12] VITALS: BP 145/67; PULSE 76; RESP 24; O2SAT 99
[2018-03-27 13:45] LABS: Pathologist Review Reviewed
== END 2018-03-25 17:14 | disposition home or self-care (01) ==
PROVIDERS: Emergency Provider Emergency Medicine; PCP Family Medicine
DX: S82.855A Nondisplaced trimalleolar fracture of left lower leg, initial encounter for closed fracture (principal); S50.01XA Contusion of right elbow, initial encounter; I25.10 Atherosclerotic heart disease of native coronary artery without angina pectoris; J44.9 Chronic obstructive pulmonary disease, unspecified; I10 Essential (primary) hypertension; E78.00 Pure hypercholesterolemia, unspecified; I48.91 Unspecified atrial fibrillation; Z72.0 Tobacco use; Z79.82 Long term (current) use of aspirin; Z79.51 Long term (current) use of inhaled steroids; Z79.01 Long term (current) use of anticoagulants; Z79.899 Other long term (current) drug therapy; W01.0XXA Fall on same level from slipping, tripping and stumbling without subsequent striking against object, initial encounter; Y93.89 Activity, other specified; Y92.008 Other place in unspecified non-institutional (private) residence as the place of occurrence of the external cause; Y99.8 Other external cause status
CPT/HCPCS: 29515; 73080; 73590; 73610; 80048; 85025; 85610; 96372; 96374; 99285; A4216

== ENCOUNTER 2018-03-26 16:09 | Observation (INO) | payer MEDICARE, SELFPAY ==
[2018-03-26] VITALS (7 sets, daily range): BP systolic 103–121; BP diastolic 45–62; PULSE 57–79; RESP 16–18; TEMP 36.9; O2SAT 93–99; BMI 25.2; BMI 26.2; BMI 26.3
--- NOTE | 2018-03-26 16:27 | ED.VISSUMM ---
- ER Visit Summary Date of Service: 03/26/18 Chief Complaint: Left ankle pain History of Present Illness: The patient is a 77 M who presents with worsening left ankle pain. Patient states he is unable to tolerate the pain at home. Patient was seen here yesterday and diagnosed with a trimalleolar fracture. Patient had a splint placed. Patient also states he is having difficulty getting around at home. Patient denies any chest pain or shortness of breath. Patient denies any nausea or vomiting. Patient denies any paresthesias or weakness. Physical Examination: Vital signs are stable. Patient is afebrile. Patient is in no acute distress. Oral mucosa is pink and moist. Neck is supple. Trachea is midline. Heart was regular rate and rhythm. Lungs are clear and equal bilateral. Abdomen is soft. Bowel sounds are normal. There is no tenderness. Cranial nerves II through XII are intact. There are no focal motor or sensory deficits noted. Sugar tong splint is in place over the left lower extremity. Sensation was intact to light touch in all digits. Capillary refill is less than 2 seconds in all digits. The remaining physical exam is within normal limits. Test Results: CBC, comprehensive metabolic profile, pro time with INR, and PTT were obtained. Hemoglobin of 9.5. INR was elevated at 3.6. Emergency Department Course and Treatment: Patient was given morphine here. Patient states he was still having pain. Case was discussed with Dr. Mantilla. He will admit the patient to his service. Patient and family understood and were agreeable with the plan. All questions were answered. Disposition: Admit to hospital Impression: Intractable pain left ankle This note was generated with [employer] dictation software. It may contain incorrect words, spelling, and punctuation that were not noted in review of the chart prior to signing ED Disposition - Plan for ED Patient: Disposition: Acute Care Hospital [facility] Chief Complaint: Lower Extremity Injury Diagnosis: Intractable pain Referrals: Guillermo Pritchard MD [Primary Care Provider] -
[2018-03-26] MEDS: Morphine 4 MG/ML Syringe IV (16:53)
[2018-03-26] MEDS: Ondansetron 4 MG/2 ML Vial IV (16:53)
[2018-03-26 17:03] LABS: Prothrombin Time (Protime)PT. 36.3 SECONDS (11.7-14.9)
[2018-03-26 17:04] LABS: Partial Thromboplast Time 53.5 Seconds (24.1-36.2)
[2018-03-26 17:07] LABS: International Normalized Ratio 3.6
[2018-03-26 17:08] LABS: Absolute Lymphocyte Count 0.92 X10^3/ul (0.83-4.51); Basophil# 0.03 X10^3/uL; Basophil% 0.5 % (0-1); Eosinophil# 0.13 X10^3/uL; Eosinophils% 2.4 % (0-5); Hematocrit 31.7 % (40-54); Hemoglobin 9.5 g/dl (13.0-16.5); Lymphocyte # 0.92 X10^3/ul (4.0); Lymphocyte % 16.7 % (19-41); Mean Corpuscular Hgb 30.9 pg (27.0-32.0); Mean Corpuscular Volume 103.3 fL (80-94); Mean Platelet Vol. 10.3 fl (6.2-12.0); Monocyte# 0.44 X10^3/uL; Neutrophil # 3.99 X10^3/uL (2.7-7.7); Neutrophil % 72.2 % (47-70); Platelet Count 192 K/mm3 (150-450); RBC Distribution Width CV 15.6 % (11.6-14.6); RBC Distribution Width SD 57.9 fl (35.1-43.9); Red Blood Count 3.07 M/mm3 (4.6-6.2); White Blood Count 5.5 K/mm3 (4.4-11.0)
[2018-03-26 17:09] LABS: POSITIVE COUNT NO; POSITIVE DIFFERENTIAL NO; POSITIVE MORPHOLOGY NO
[2018-03-26 17:19] LABS: AST(SGOT) 27 U/L (15-37); Alanine Aminotransfer ALT/SGPT 24 U/L (16-61); Albumin, Serum 3.4 g/dL (3.2-5.0); Alkaline Phosphatase 103 U/L (45-117); Anion Gap 9 (5-15); BUN 23 mg/dL (7-18); BUN/Creat Ratio 18.1 RATIO (10-20); Calcium,Total 7.9 mg/dL (8.5-10.1); Chloride 105 mmol/L (98-107); Creatinine, Serum 1.27 mg/dL (0.70-1.30); EST Glomerular Filtration Rate 58 mL/min (>60); Est Glom Filt Rate - Afr Amer 70 mL/min (>60); Globulin 3.3 g/dL (2.2-4.2); Glucose 102 mg/dL (74-106); Potassium 3.7 mmol/L (3.5-5.1); Protein, Total 6.7 g/dL (6.4-8.2); Sodium Level 141 mmol/L (136-145)
--- NOTE | 2018-03-26 18:26 | PCM.HP.STD ---
Problem List (1) Closed left ankle fracture Status: Acute Qualifiers: Encounter type: subsequent encounter Fracture healing: with routine healing Qualified Code(s): S82.892D - Other fracture of left lower leg, subsequent encounter for closed fracture with routine healing History of Present Illness Date of Admission: 03/26/18 Chief Complaint: ankle pain The patient is a 77 year old M who is in his normal state of health and when she tripped in his garage yesterday. Patient hit his right elbow and sustained a tri-malleolar fracture of his left ankle. Patient was casted in the emergency room and he did prescription for Salem. Patient stated that his pain has gotten worse since being at home and the Salem was insufficient so return to the emergency room for pain control. In the emergency room, patient received morphine and Zofran. They are concerned because he only received 4 mg of morphine whereas he received 8 mg yesterday. The ER contacted Dr. Villarreal, who said that she would be willing to be on consult but no imminent plans for surgery until the swelling in his left ankle goes down. [] Past Medical History Past Medical History (Chronic Problems): Chronic Problems (Last Reviewed 01/10/18 @ 08:31 by Carol Bautista) Non-rheumatic tricuspid valve insufficiency (Chronic) Secondary pulmonary arterial hypertension (Chronic) Chronic systolic (congestive) heart failure (Chronic) Ischemic cardiomyopathy (Chronic) History of coronary artery stent placement (Chronic) 06/28/2011 prior to PTCA and BMS (3.0 mm X 18 mm long Integrity stent) to mid LAD, BMS to the mid distal CX (4.5 X 16mm Veriflex stent), and BMS to the proximal CX (3.5 X 15 mm Integrity stent) @ [facility] Atherosclerotic heart disease of [place] coronary artery without angina pectoris (Chronic) 03/27/1993: RED to LAD (CABG X1 along with AVR, [facility]):06/28/2011 prior to PTCA and BMS to mid LAD, BMS to the mid distal CX, and BMS to the proximal CX @ [facility] History of left heart catheterization (Chronic) 03/27/1993 [facility] prior to CABG X1 and AVR; 06/28/2011 prior to PTCA and BMS to mid LAD, BMS to the mid distal CX, and BMS to the proximal CX @ [facility] History of aortic valve replacement (Chronic) 03/27/1993: RED to LAD and 23mm [facility] Rachid Mechanical AVR placed for severe per Dr. Darrell Shaw, [facility] S/P CABG x 1 (Chronic) 03/27/1993: RED to LAD and 23mm [facility] Rachid Prosthetic AVR placed for severe per Dr. 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 HERNANDEZ Medical History: Medical History (Last Reviewed 03/26/18 @ 18:28 by Pancho Mantilla DO) Non-rheumatic tricuspid valve insufficiency (Chronic) I36.1 Secondary pulmonary arterial hypertension (Chronic) I27.21 Chronic systolic (congestive) heart failure (Chronic) I50.22 Ischemic cardiomyopathy (Chronic) I25.5 History of coronary artery stent placement (Chronic) Z95.5 06/28/2011 prior to PTCA and BMS (3.0 mm X 18 mm long Integrity stent) to mid LAD, BMS to the mid distal CX (4.5 X 16mm Veriflex stent), and BMS to the proximal CX (3.5 X 15 mm Integrity stent) @ [facility] Atherosclerotic heart disease of [place] coronary artery without angina pectoris (Chronic) I25.10 03/27/1993: RED to LAD (CABG X1 along with AVR, [facility]):06/28/2011 prior to PTCA and BMS to mid LAD, BMS to the mid distal CX, and BMS to the proximal CX @ [facility] custodial current use of anticoagulant (Chronic) Z79.01 History of GI bleed (Chronic) Z87.19 08/09/2017 GI bleed (Resolved) K92.2 COPD (chronic obstructive pulmonary disease) (Chronic) J44.9 Atrial fibrillation (Chronic) I48.91 Anemia due to chronic blood loss (Chronic) D50.0 Spinal stenosis of lumbar region (Chronic) M48.06 Tobacco use disorder (Chronic) F17.200 Chronic pain syndrome (Chronic) G89.4 follows with pain Management, Dr. HERNANDEZ Uncontrolled pain (Inactive) R52 Allergies No Known Allergies Allergy (Verified 03/26/18 16:12) Home Medications: Ambulatory Orders Medication Instructions Recorded Rosuvastatin Calcium [Crestor] 40 mg PO QHS 07/15/13 Zolpidem Tartrate [Ambien] 10 mg PO QHS 07/15/13 Ferrous Sulfate 325 mg PO BIDCM 09/13/15 Albuterol Sulfate [Proair 1 puff INHALATION Q4H PRN PRN 09/25/15 Respiclick] Cholecalciferol (VIT D3) [Vitamin 2,000 unit PO DAILY 09/25/15 D3] Nitroglycerin [Nitrostat] 0.4 mg SUBLINGUAL Q5M PRN #30 tab 09/26/15 Aspirin E.C. [Ecotrin] 81 mg PO DAILY@0800 06/24/16 Folic Acid 1 mg PO QHS 06/24/16 Ipratropium/Albuterol Sulfate 3 ml INHALATION Q4H PRN PRN #30 11/02/16 [Duoneb] ampul.neb Metoprolol Tartrate [Lopressor 12.5 mg PO BID 01/20/17 (beta zach)] Docusate Sodium [Colace] 200 mg PO BID PRN PRN cap 01/27/17 Budesonide/Formoterol 160/4.5 2 puff INHALATION BID 02/08/17 [Symbicort 160/4.5 Mcg Inhaler (SP)] Furosemide [Lasix] 40 mg PO DAILY 02/08/17 isosorbide mononitrate ER 30 mg 30 mg PO QAM 11/21/17 tablet,extended release 24 hr pregabalin 75 mg capsule 75 mg PO TID 11/21/17 pantoprazole 40 mg tablet,delayed 40 mg PO BID tab 01/02/18 release warfarin 5 mg tablet 5 mg PO DAILY tab 01/02/18 warfarin 7.5 mg tablet 7.5 mg PO QDAY tab 01/02/18 Hydrocodone/Acetaminophen [[place]em 1 - 2 ea PO 4X/DAY PRN PRN 3 Days 03/25/18 5-325 Tablet] #12 tab Surgical History: Surgical History (Last Reviewed 09/09/18 @ 18:28 by Pancho Mantilla DO) History of left heart catheterization (Chronic) Z98.890 03/27/1993 [facility] prior to CABG X1 and AVR; 06/28/2011 prior to PTCA and BMS to mid LAD, BMS to the mid distal CX, and BMS to the proximal CX @ [facility] History of aortic valve replacement (Chronic) Z95.2 03/27/1993: RED to LAD and 23mm St[facility] Rachid Mechanical AVR placed for severe per Dr. Darrell Shaw, [facility] S/P CABG x 1 (Chronic) Z95.1 03/27/1993: RED to LAD and 23mm [facility] Rachid Prosthetic AVR placed for severe per Dr. Darrell Shaw, [facility] Surgical History: coronary bypass surgery, - - Mechanical aortic valve replacement, back surgeries, RLE ankle surgery recently. Psychiatric History: No pertinent psych hx Smoking Status: Current every day smoker - *Family History Maternal Family History: Family History (Last Reviewed 03/26/18 @ 18:28 by Pancho Mantilla DO) Son CAD (coronary artery disease) Myocardial infarction Sudden cardiac Brother CAD (coronary artery disease) Sister CAD (coronary artery disease) History Items: Diabetes, Heart Disease, Hypertension Paternal Family History: Family History (Last Reviewed 03/26/18 @ 18:28 by Pancho Mantilla DO) Son CAD (coronary artery disease) Myocardial infarction Sudden cardiac Brother CAD (coronary artery disease) Sister CAD (coronary artery disease) History Items: Diabetes, Heart Disease, Hypertension Review of Systems Constitutional: Denies: Anorexia, Chills, Fever Eyes: Denies: Blurred vision, Double vision HEENT: Denies: Head Aches, Sinus Congestion, Sinus Drainage Cardiovascular: Denies: Chest Pain, Palpitations Respiratory: Denies: Cough, Shortness of breath at rest, Sputum production Gastrointestinal: Denies: Abdominal Pain, Nausea, Vomiting Genitourinary: Denies: Dysuria Musculoskeletal: Reports: Joint Pain, Joint Tenderness, - - Left ankle pain status post fracture Skin: Denies: Rash, Wounds Neurological: Reports: - - Does complain of numbness on the dorsum of his left foot since the injury.. Denies: Focal weakness, Numbness, Tingling Psychiatric: Denies: Anxiety, Depression Hematologic/ Lymphatic: Denies: Easy Bruising, Easy Bleeding, Hx of blood clot Comment: All review of systems are negative except as mentioned in the history of present illness and the other review of systems. VTE Information - Inpt Only VTE Present on Admission: No VTE Pharm Prophylaxis ordered?: Yes Patient Problems: Active and Suspected Problems (Last Reviewed 01/10/18 @ 08:31 by Carol Bautista) Closed left ankle fracture (Acute) - Physical Exam General: - - Slightly groggy. Afebrile. No acute distress. HEENT: Atraumatic, Normocephalic Oral: Moist Mucosa, No Gingival or Mucosal Lesions/ Ulcerations Neck: No Nodes, Thyroid Normal Size and Texture Lungs: Clear to auscultation, Normal air movement, No rhonchi, No wheeze Cardiovascular: Regular rate, Regular Rhythm, Normal S1, Normal S2, No murmurs Abdomen: Bowel Sounds Present, Soft, Non Tender, Non-Distended, No Hepato-splenomegaly Extremities: No edema, - - Left forefoot and distal ankle in a cast. Skin: No rashes, No breakdown Musculoskeletal: No Muscle Wasting Neurological: Sensory exam intact to light touch and pain, Coordination normal, - - Patient able to move his left toes side of the cast. Sensation of the toes is intact. Psych/Mental Status: Appropriate, Flat Affect Vital Signs Temp Pulse Resp BP Pulse Ox 36.9 C 67 18 103/62 99 03/26/18 16:10 03/26/18 16:10 03/26/18 18:20 03/26/18 16:10 03/26/18 16:10 Weight: 79.832 kg Body Mass Index (BMI) 25.2 Laboratory Tests Past 24 Hrs 03/26/18 03/26/18 03/26/18 16:41 16:41 16:41 WBC 5.5 RBC 3.07 L Hgb 9.5 L Hct 31.7 L MCV 103.3 H MCH 30.9 MCHC 30.0 L RDW 15.6 H RDW Differential 57.9 H Plt Count 192 MPV 10.3 Immature Gran % (Auto) 0.200 Neut % (Auto) 72.2 H Lymph % (Auto) 16.[address] [place] % (Auto) 8.0 Eos % (Auto) 2.4 Baso % (Auto) 0.5 Absolute Neuts (auto) 4.0 Absolute Lymphs (auto) 0.92 Total Counted Not Reportable PT 36.3 H INR 3.6 H* APTT 53.5 H Sodium 141 Potassium 3.7 Chloride 105 Carbon Dioxide 27.0 Anion Gap 9 BUN 23 H Creatinine 1.27 Estim Creat Clear Calc 48.70 Est GFR (MDRD) Af Amer 70 Est GFR (MDRD) Non-Af 58 L BUN/Creatinine Ratio 18.1 Glucose 102 Calcium 7.9 L Total Bilirubin 0.80 AST 27 ALT 24 Alkaline Phosphatase 103 Total Protein 6.7 Albumin 3.4 Globulin 3.3 Albumin/Globulin Ratio 1.0 Assessment/Plan All Active Problems (Last Reviewed 01/10/18 @ 08:31 by Carol Bautista) Closed left ankle fracture (Acute) GI bleed (Resolved) SALVADOR (acute kidney injury) (Resolved) Acute exacerbation of chronic obstructive pulmonary disease (Resolved) Bradycardia (Resolved) COPD with acute exacerbation (Resolved) Gram-negative pneumonia (Resolved) History of colonoscopy (Resolved) History of endoscopy (Resolved) Hypotension (Resolved) Hypoxia (Resolved) Subconjunctival hematoma (Resolved) 1. Left trimalleolar ankle fracture The [place] that he was discharged with yesterday was insufficient. Patient will be brought in under observation status for further optimization of pain control. Patient will be put on oxycodone 5-10 mg every 4 hours as needed +2-4 mg of IV morphine for breakthrough pain. Patient is also on Lyrica at baseline 75 mg. Nonweightbearing to left lower extremity Physical and Occupational Therapy consultations Consultation to podiatry. No urgent plans at this time for surgery until the swelling resolves. Check a 25-hydroxy vitamin D level Patient was slightly groggy in the emergency room having only received 4 mg of morphine. Given his current status even though he was alert I was concerned about patient receiving Dilaudid so I's recommend that be held. Will initiate oral treatment with oxycodone and then have the morphine available as needed for breakthrough. 2. Atrial fibrillation Currently rate controlled. Continue with metoprolol 3. Coagulopathy Secondary to Coumadin INR is elevated at 3.6 Hold Coumadin for now 4. Coronary artery disease Currently stable Continue with aspirin, metoprolol and Crestor 5. Disposition Patient will be brought in under observation status Disposition will be pending the patient's pain control, therapy evaluations, and whether or not there is any urgent need for surgery during this admission. The patient does require surgery during this admission then his status changed to admission. Code Visit OBSV E&M: 15891 Initial observation care L3
--- NOTE | 2018-03-26 18:29 | ED.RN ---
PT'S FAMILY MADE THIS RN AWARE THAT DR. BOYLE IS NOT TO SEE PT THEY HAVE HAD ISSUES IN PAST. SAVI, ED GOLD BEATER AWARE AND SPOKE WITH NURSING CUSTOMER INSIGHT ANALYST.
--- NOTE | 2018-03-26 19:16 | HP.PCM_ITS ---
Problem List (1) Closed left ankle fracture Status: Acute Qualifiers: Encounter type: subsequent encounter Fracture healing: with routine healing Qualified Code(s): S82.892D - Other fracture of left lower leg, subsequent encounter for closed fracture with routine healing History of Present Illness Date of Admission: 03/26/18 Chief Complaint: x The patient is a 77 year old M [] Past Medical History Past Medical History (Chronic Problems): Chronic Problems (Last Reviewed 03/26/18 @ 18:28 by Pancho Mantilla DO) Non-rheumatic tricuspid valve insufficiency (Chronic) Secondary pulmonary arterial hypertension (Chronic) Chronic systolic (congestive) heart failure (Chronic) Ischemic cardiomyopathy (Chronic) History of coronary artery stent placement (Chronic) 06/28/2011 prior to PTCA and BMS (3.0 mm X 18 mm long Integrity stent) to mid LAD, BMS to the mid distal CX (4.5 X 16mm Veriflex stent), and BMS to the proximal CX (3.5 X 15 mm Integrity stent) @ [facility] Atherosclerotic heart disease of [place] coronary artery without angina pectoris (Chronic) 03/27/1993: RED to LAD (CABG X1 along with AVR, [facility]):06/28/2011 prior to PTCA and BMS to mid LAD, BMS to the mid distal CX, and BMS to the proximal CX @ [facility] History of left heart catheterization (Chronic) 03/27/1993 [facility] prior to CABG X1 and AVR; 06/28/2011 prior to PTCA and BMS to mid LAD, BMS to the mid distal CX, and BMS to the proximal CX @ [facility] History of aortic valve replacement (Chronic) 03/27/1993: RED to LAD and 23mm St[facility] Rachid Mechanical AVR placed for severe per Dr. Darrell Shaw [facility] S/P CABG x 1 (Chronic) 03/27/1993: RED to LAD and 23mm [facility] Rachid Prosthetic AVR placed for severe per Dr. Darrell Shaw [facility] nursing home current use of anticoagulant (Chronic) History of GI bleed (Chronic) 08/09/2017 COPD (chronic obstructive pulmonary disease) (Chronic) Atrial fibrillation (Chronic) Anemia due to chronic blood loss (Chronic) Chronic airway obstruction (Chronic) HLD (hyperlipidemia) (Chronic) HTN (hypertension) (Chronic) Spinal stenosis of lumbar region (Chronic) Tobacco use disorder (Chronic) Chronic pain syndrome (Chronic) follows with pain Management, Dr. HERNANDEZ Medical History: Medical History (Last Reviewed 03/26/18 @ 18:28 by Pancho Mantilla DO) Non-rheumatic tricuspid valve insufficiency (Chronic) I36.1 Secondary pulmonary arterial hypertension (Chronic) I27.21 Chronic systolic (congestive) heart failure (Chronic) I50.22 Ischemic cardiomyopathy (Chronic) I25.5 History of coronary artery stent placement (Chronic) Z95.5 06/28/2011 prior to PTCA and BMS (3.0 mm X 18 mm long Integrity stent) to mid LAD, BMS to the mid distal CX (4.5 X 16mm Veriflex stent), and BMS to the proximal CX (3.5 X 15 mm Integrity stent) @ [facility] Atherosclerotic heart disease of [place] coronary artery without angina pectoris (Chronic) I25.10 03/27/1993: RED to LAD (CABG X1 along with AVR, [facility]):06/28/2011 prior to PTCA and BMS to mid LAD, BMS to the mid distal CX, and BMS to the proximal CX @ 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 HERNANDEZ Uncontrolled pain (Inactive) R52 Allergies No Known Allergies Allergy (Verified 03/26/18 16:12) Home Medications: Ambulatory Orders Medication Instructions Recorded Rosuvastatin Calcium [Crestor] 40 mg PO QHS 07/15/13 Ferrous Sulfate 325 mg PO BIDCM 09/13/15 Albuterol Sulfate [Proair 1 puff INHALATION Q4H PRN PRN 09/25/15 Respiclick] Cholecalciferol (VIT D3) [Vitamin 2,000 unit PO DAILY 09/25/15 D3] Nitroglycerin [Nitrostat] 0.4 mg SUBLINGUAL Q5M PRN #30 tab 09/26/15 Aspirin E.C. [Ecotrin] 81 mg PO DAILY@0800 06/24/16 Folic Acid 1 mg PO QHS 06/24/16 Ipratropium/Albuterol Sulfate 3 ml INHALATION Q4H PRN PRN #30 11/02/16 [Duoneb] ampul.neb Metoprolol Tartrate [Lopressor 12.5 mg PO BID 01/20/17 (beta zach)] Docusate Sodium [Colace] 200 mg PO BID PRN PRN cap 01/27/17 Budesonide/Formoterol 160/4.5 2 puff INHALATION BID 02/08/17 [Symbicort 160/4.5 Mcg Inhaler (SP)] Furosemide [Lasix] 40 mg PO DAILY 02/08/17 isosorbide mononitrate ER 30 mg 30 mg PO QAM 11/21/17 tablet,extended release 24 hr pregabalin 75 mg capsule 75 mg PO BID 11/21/17 pantoprazole 40 mg tablet,delayed 40 mg PO BID tab 01/02/18 release warfarin 5 mg tablet 5 mg PO FULLER tab 01/02/18 warfarin 7.5 mg tablet 7.5 mg PO MOTUWETHFRSA tab 01/02/18 Surgical History: Surgical History (Last Reviewed 03/26/18 @ 18:28 by Pancho Mantilla DO) History of left heart catheterization (Chronic) Z98.890 03/27/1993 [facility] prior to CABG X1 and AVR; 06/28/2011 prior to PTCA and BMS to mid LAD, BMS to the mid distal CX, and BMS to the proximal CX @ [facility] History of aortic valve replacement (Chronic) Z95.2 03/27/1993: RED to LAD and 23mm [facility] Rachid Mechanical AVR placed for severe per Dr. Darrell Shaw [facility] S/P CABG x 1 (Chronic) Z95.1 03/27/1993: RED to LAD and 23mm [facility] Rachid Prosthetic AVR placed for severe per Dr. Darrell Shaw, [facility] Surgical History: coronary bypass surgery, - - Mechanical aortic valve replacement, back surgeries, RLE ankle surgery recently. Psychiatric History: No pertinent psych hx Smoking Status: Current every day smoker - *Family History Maternal Family History: Family History (Last Reviewed 03/26/18 @ 18:28 by Pancho Mantilla DO) Son CAD (coronary artery disease) Myocardial infarction Sudden cardiac Brother CAD (coronary artery disease) Sister CAD (coronary artery disease) History Items: Diabetes, Heart Disease, Hypertension Paternal Family History: Family History (Last Reviewed 03/26/18 @ 18:28 by Pancho Mantilla DO) Son CAD (coronary artery disease) Myocardial infarction Sudden cardiac Brother CAD (coronary artery disease) Sister CAD (coronary artery disease) History Items: Diabetes, Heart Disease, Hypertension Review of Systems Unable to obtain accurate/complete ROS d/t: x Comment: x VTE Information - Inpt Only VTE Present on Admission: No Subjective: x Objective: x - Physical Exam Vital Signs Temp Pulse Resp BP Pulse Ox 36.9 C 71 18 121/57 H 96 03/26/18 16:10 03/26/18 18:28 03/26/18 18:28 03/26/18 18:28 03/26/18 18:28 Weight: 79.832 kg Body Mass Index (BMI) 25.2 Laboratory Tests Past 24 Hrs 03/26/18 03/26/18 03/26/18 16:41 16:41 16:41 WBC 5.5 RBC 3.07 L Hgb 9.5 L Hct 31.7 L MCV 103.3 H MCH 30.9 MCHC 30.0 L RDW 15.6 H RDW Differential 57.9 H Plt Count 192 MPV 10.3 Immature Gran % (Auto) 0.200 Neut % (Auto) 72.2 H Lymph % (Auto) 16.7 L [place] % (Auto) 8.0 Eos % (Auto) 2.4 Baso % (Auto) 0.5 Absolute Neuts (auto) 4.0 Absolute Lymphs (auto) 0.92 Total Counted Not Reportable PT 36.3 H INR 3.6 H* APTT 53.5 H Sodium 141 Potassium 3.7 Chloride 105 Carbon Dioxide 27.0 Anion Gap 9 BUN 23 H Creatinine 1.27 Estim Creat Clear Calc 48.70 Est GFR (MDRD) Af Amer 70 Est GFR (MDRD) Non-Af 58 L BUN/Creatinine Ratio 18.1 Glucose 102 Calcium 7.9 L Total Bilirubin 0.80 AST 27 ALT 24 Alkaline Phosphatase 103 Total Protein 6.7 Albumin 3.4 Globulin 3.3 Albumin/Globulin Ratio 1.0 Assessment/Plan All Active Problems (Last Reviewed 03/26/18 @ 18:28 by Pancho Mantilla DO) Closed left ankle fracture (Acute) Intractable pain (Acute) Trimalleolar fracture of ankle, closed (Acute) Left ankle pain (Acute) Risk for falls (Acute) GI bleed (Resolved) [place] (acute kidney injury) (Resolved) Acute exacerbation of chronic obstructive pulmonary disease (Resolved) Bradycardia (Resolved) COPD with acute exacerbation (Resolved) Gram-negative pneumonia (Resolved) History of colonoscopy (Resolved) History of endoscopy (Resolved) Hypotension (Resolved) Hypoxia (Resolved) Subconjunctival hematoma (Resolved) incomplete. see other H+P. for further details.
[2018-03-26] MEDS: oxyCODONE 5 MG Tablet PO (19:30)
[2018-03-26] MEDS: Acetaminophen 325 MG Tablet 650 MG PO (19:31)
[2018-03-26] MEDS: Morphine 2 MG/ML Syringe IV (20:28)
[2018-03-26] MEDS: 0.9% Normal Saline 1,000 ML 100 ML IV (20:30)
[2018-03-26] MEDS: Atorvastatin Calcium 80 MG Tablet PO (21:47)
[2018-03-26] MEDS: Metoprolol Tartrate 25 MG Tablet 12.5 MG PO (21:47)
[2018-03-26] MEDS: Folic Acid 1 MG Tablet PO (21:47)
[2018-03-26] MEDS: Pantoprazole Sodium 40 MG Tablet PO (21:47)
[2018-03-26] MEDS: Pregabalin 75 MG Capsule PO (21:53)
[2018-03-26] MEDS: Albuterol 2.5 MG/3 ML VIAL.NEB. INHALATION (22:50)
[2018-03-26] MEDS: Budesonide Respules 0.5 MG/2 ML AMPUL.NEB. INHALATION (22:50)
[2018-03-27] MEDS: Ketorolac 15 MG/ML Vial IV (00:03)
[2018-03-27] MEDS: oxyCODONE 5 MG Tablet PO ×2 (01:25→05:44)
[2018-03-27 03:15] VITALS: BP 110/47; PULSE 54; RESP 18; TEMP 36.7; O2SAT 99
[2018-03-27] MEDS: Morphine 2 MG/ML Syringe IV (03:18)
[2018-03-27 03:24] VITALS: PULSE 54; RESP 18; O2SAT 99
[2018-03-27] MEDS: Acetaminophen 325 MG Tablet 650 MG PO (05:44)
[2018-03-27] MEDS: Pregabalin 75 MG Capsule PO (05:44)
[2018-03-27] MEDS: 0.9% NaCl Peripheral Flush Adult/Peds IV ×2 (05:45→06:56)
[2018-03-27 06:42] LABS: International Normalized Ratio 3.3
[2018-03-27] MEDS: Ondansetron 4 MG/2 ML Vial IV (06:55)
[2018-03-27] MEDS: Budesonide Respules 0.5 MG/2 ML AMPUL.NEB. INHALATION (07:03)
[2018-03-27] MEDS: Albuterol 2.5 MG/3 ML VIAL.NEB. INHALATION (07:03)
[2018-03-27 07:04] VITALS: PULSE 52; RESP 16; O2SAT 92
[2018-03-27 08:05] VITALS: BP 132/67; PULSE 64; RESP 16; TEMP 36.6; O2SAT 97
--- NOTE | 2018-03-27 08:07 | PCM.DC ---
- Discharge Diagnoses Current Active Problems: Current Active and Chronic Problems (Last Reviewed 03/26/18 @ 18:28 by Pancho Mantilla DO) Closed left ankle fracture (Acute) Intractable pain (Acute) You will use the following diet at home:: No restrictions Your food should be the consistency of: Regular Discharge Activity: Use Walker Weight Bearing Status: No weight bearing - on the Left Foot Allergies/Adverse Reactions: Allergies No Known Allergies Allergy (Verified 03/26/18 16:12) Medications to take at Discharge Rosuvastatin Calcium [Crestor] 40 mg PO QHS 07/15/13 Ferrous Sulfate 325 mg PO BIDCM 09/13/15 Albuterol Sulfate [Proair Respiclick] 1 puff INHALATION Q4H PRN PRN 09/25/15 Cholecalciferol (VIT D3) [Vitamin D3] 2,000 unit PO DAILY 09/25/15 Nitroglycerin [Nitrostat] 0.4 mg SUBLINGUAL Q5M PRN #30 tab 09/26/15 Aspirin E.C. [Ecotrin] 81 mg PO DAILY@0800 06/24/16 Folic Acid 1 mg PO QHS 06/24/16 Ipratropium/Albuterol Sulfate [Duoneb] 3 ml INHALATION Q4H PRN PRN #30 ampul.neb 11/02/16 Metoprolol Tartrate [Lopressor (beta zach)] 12.5 mg PO BID 01/20/17 Docusate Sodium [Colace] 200 mg PO BID PRN PRN cap 01/27/17 Budesonide/Formoterol 160/4.5 [Symbicort 160/4.5 Mcg Inhaler (SP)] 2 puff INHALATION BID 02/08/17 Furosemide [Lasix] 40 mg PO DAILY 02/08/17 isosorbide mononitrate ER 30 mg tablet,extended release 24 hr 30 mg PO QAM 11/21/17 pregabalin 75 mg capsule 75 mg PO TID 11/21/17 pantoprazole 40 mg tablet,delayed release 40 mg PO BID tab 01/02/18 warfarin 5 mg tablet 5 mg PO FULLER tab 01/02/18 warfarin 7.5 mg tablet 7.5 mg PO MOTUWETHFRSA tab 01/02/18 Hydrocodone/Acetaminophen [Collins 5-325 Tablet] 1 - 2 ea PO 4X/DAY PRN PRN 3 Days #12 tab 03/25/18 Primary Care Physician: Guillermo Pritchard MD [Primary Care Provider] - Please follow up with your Primary Care Physician in: in 3-5 days Test Results: Test results from this visit will be discussed in further detail at your follow-up appointment, if applicable. Please Follow Up With: Mary Alice Villarreal DPM When: in 3-5 days Proposed Discharge Date: 03/27/18
[2018-03-27 08:11] VITALS: PULSE 64
[2018-03-27] MEDS: Isosorbide Mononitrate 30 MG Tablet PO (08:11)
[2018-03-27] MEDS: Ferrous Sulfate 325 MG Tablet PO (08:11)
[2018-03-27] MEDS: Aspirin E.C. 81 MG Tablet PO (08:11)
[2018-03-27] MEDS: Metoprolol Tartrate 25 MG Tablet 12.5 MG PO (08:11)
[2018-03-27] MEDS: Furosemide 40 MG Tablet PO (08:11)
[2018-03-27] MEDS: Pantoprazole Sodium 40 MG Tablet PO (08:12)
--- NOTE | 2018-03-27 08:16 | DS.PCM_ITS ---
Discharge Date and Diagnosis Date of Admission: 03/26/18 Date of Discharge: 03/27/18 - Primary Discharge Diagnosis Active and Suspected Problems (Last Reviewed 03/26/18 @ 18:28 by Pancho Mantilla DO) Closed left ankle fracture (Acute) Intractable pain (Acute) - Secondary Discharge Diagnosis Chronic Problems (Last Reviewed 03/26/18 @ 18:28 by Pancho Mantilla DO) Non-rheumatic tricuspid valve insufficiency (Chronic) Secondary pulmonary arterial hypertension (Chronic) Chronic systolic (congestive) heart failure (Chronic) Ischemic cardiomyopathy (Chronic) History of coronary artery stent placement (Chronic) 06/28/2011 prior to PTCA and BMS (3.0 mm X 18 mm long Integrity stent) to mid LAD, BMS to the mid distal CX (4.5 X 16mm Veriflex stent), and BMS to the proximal CX (3.5 X 15 mm Integrity stent) @ [facility] 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 Rach[facility] Mechanical AVR placed for severe per Dr. Darrell Shaw [facility] S/P CABG x 1 (Chronic) 03/27/1993: RED to LAD and 23mm [facility] 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 WSAF Hospital Course and Treatment Operations: None Summary of Care Provided: Admitted with intractable left lower extremity pain. Patient had apparently been diagnosed with left trimalleolar ankle fracture and discharge from the ED however presented back to the emergency department in view of worsening pain 1. Left trimalleolar ankle fracture patient was admitted for pain control as well as nonweightbearing to the left lower extremity patient was discharged home to follow-up with Dr. Villarreal with podiatry ; saw the patient prior to discharge 2. Paroxysmal A. fib rate controlled with metoprolol on systemic anticoagulation with Coumadin which was held and instructed to resume on 03/28/18 2. Coagulopathy secondary to Coumadin use Coumadin was held 4. CAD stable on recommended medications include aspirin beta blockers as well as statin therapy Discharge Diet: No Restrictions Discharge Activity: Use Walker Weight Bearing Status: No weight bearing - on the Left Foot Home Medications: Medications to take at Discharge Rosuvastatin Calcium [Crestor] 40 mg PO QHS 07/15/13 Ferrous Sulfate 325 mg PO BIDCM 09/13/15 Albuterol Sulfate [Proair Respiclick] 1 puff INHALATION Q4H PRN PRN 09/25/15 Cholecalciferol (VIT D3) [Vitamin D3] 2,000 unit PO DAILY 09/25/15 Nitroglycerin [Nitrostat] 0.4 mg SUBLINGUAL Q5M PRN #30 tab 09/26/15 Aspirin E.C. [Ecotrin] 81 mg PO DAILY@0800 06/24/16 Folic Acid 1 mg PO QHS 06/24/16 Ipratropium/Albuterol Sulfate [Duoneb] 3 ml INHALATION Q4H PRN PRN #30 ampul.neb 11/02/16 Metoprolol Tartrate [Lopressor (beta zach)] 12.5 mg PO BID 01/20/17 Docusate Sodium [Colace] 200 mg PO BID PRN PRN cap 01/27/17 Budesonide/Formoterol 160/4.5 [Symbicort 160/4.5 Mcg Inhaler (SP)] 2 puff INHALATION BID 02/08/17 Furosemide [Lasix] 40 mg PO DAILY 02/08/17 isosorbide mononitrate ER 30 mg tablet,extended release 24 hr 30 mg PO QAM 11/21 pregabalin 75 mg capsule 75 mg PO TID 11/21/17 pantoprazole 40 mg tablet,delayed release 40 mg PO BID tab 01/02/18 warfarin 5 mg tablet 5 mg PO FULLER tab 01/02/18 warfarin 7.5 mg tablet 7.5 mg PO MOTUWETHFRSA tab 01/02/18 Hydrocodone/Acetaminophen [[place] 5-325 Tablet] 1 - 2 ea PO 4X/DAY PRN PRN 3 Days #12 tab 03/25/18 Primary Care Physician: Guillermo Pritchard MD [Primary Care Provider] - Please follow up with your Primary Care Physician in: in 3-5 days Please Follow Up With: Mary Alice Villarreal DPM When: in 3-5 days Disposition: Home Minutes spent on discharge:: 35 Patient Condition:: Stable Medical Necessity - Tobacco Use Smoking Status: Current every day smoker Meaningful Use Info Meaningful Use Diagnoses (Choose all that apply): None applicable Code Visit OBSV E&M: 19655 Observation care discharge
--- NOTE | 2018-03-27 11:06 | PCA ---
therapy working with pt
--- NOTE | 2018-03-27 11:20 | CASEMGMT ---
RN CM Note: Pt plans to return home. Home Health was recommended as pt has ankle fx and lives alone. Pt declining. RN CM discussed PT/OT at home but pt states he has walker, crutches and daughter will be available to assist. RN discussed there would be times pt would be alone, may need assistance, may be beneficial to stay with daughter, however pt states he has no concerns with returning home and knows his family will assist. Naty MICHAELSN RN ACM
--- NOTE | 2018-03-27 12:08 | CON.PCM_ITS ---
Problem List (1) Trimalleolar fracture of ankle, closed Status: Acute (2) Closed left ankle fracture Status: Acute Qualifiers: Encounter type: subsequent encounter Fracture healing: with routine healing Qualified Code(s): S82.892D - Other fracture of left lower leg, subsequent encounter for closed fracture with routine healing (3) Left ankle pain Status: Acute (4) Risk for falls Status: Acute Reason for Consult Date of Consultation: 03/27/18 Reason for Consultation: Left ankle fracture History of Present Illness: The patient is a 77 year old M sustained a left ankle fracture when he fell in his basement yesterday when he slipped on slick adilia. He was discharged home and readmitted for pain control late yesterday evening. His pain is better controlled on IV morphine. He denies loss of consciousness. He did also hurt his right arm. His splint remains intact to the left lower extremity. Past Medical History Past Medical History (Chronic Problems): Chronic Problems (Last Reviewed 03/26/18 @ 18:28 by Pancho Mantilla DO) Non-rheumatic tricuspid valve insufficiency (Chronic) Secondary pulmonary arterial hypertension (Chronic) Chronic systolic (congestive) heart failure (Chronic) Ischemic cardiomyopathy (Chronic) History of coronary artery stent placement (Chronic) 06/28/2011 prior to PTCA and BMS (3.0 mm X 18 mm long Integrity stent) to mid LAD, BMS to the mid distal CX (4.5 X 16mm Veriflex stent), and BMS to the proximal CX (3.5 X 15 mm Integrity stent) @ [facility] Atherosclerotic heart disease of habematolel coronary artery without angina pectoris (Chronic) 03/27/1993: RED to LAD (CABG X1 along with AVR, [facility]):06/28/2011 prior to PTCA and BMS to mid LAD, BMS to the mid distal CX, and BMS to the proximal CX @ [facility] History of left heart catheterization (Chronic) 03/27/1993 [facility] prior to CABG X1 and AVR; 06/28/2011 prior to PTCA and BMS to mid LAD, BMS to the mid distal CX, and BMS to the proximal CX @ [facility] History of aortic valve replacement (Chronic) 03/27/1993: RED to LAD and 23mm St[facility] Rachid Mechanical AVR placed for severe per Dr. Darrell Shaw, [facility] S/P CABG x 1 (Chronic) 03/27/1993: RED to LAD and 23mm St[facility] 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 HERNANDEZ Medical History: Medical History (Last Reviewed 03/26/18 @ 18:28 by Pancho Mantilla DO) Non-rheumatic tricuspid valve insufficiency (Chronic) I36.1 Secondary pulmonary arterial hypertension (Chronic) I27.21 Chronic systolic (congestive) heart failure (Chronic) I50.22 Ischemic cardiomyopathy (Chronic) I25.5 History of coronary artery stent placement (Chronic) Z95.5 06/28/2011 prior to PTCA and BMS (3.0 mm X 18 mm long Integrity stent) to mid LAD, BMS to the mid distal CX (4.5 X 16mm Veriflex stent), and BMS to the proximal CX (3.5 X 15 mm Integrity stent) @ [facility] Atherosclerotic heart disease of habematolel coronary artery without angina pectoris (Chronic) I25.10 03/27/1993: RED to LAD (CABG X1 along with AVR, [facility]):06/28/2011 prior to PTCA and BMS to mid LAD, BMS to the mid distal CX, and BMS to the proximal CX @ [facility] alf current use of anticoagulant (Chronic) Z79.01 History of GI bleed (Chronic) Z87.19 08/09/2017 GI bleed (Resolved) K92.2 COPD (chronic obstructive pulmonary disease) (Chronic) J44.9 Atrial fibrillation (Chronic) I48.91 Anemia due to chronic blood loss (Chronic) D50.0 Spinal stenosis of lumbar region (Chronic) M48.06 Tobacco use disorder (Chronic) F17.200 Chronic pain syndrome (Chronic) G89.4 follows with pain Management, Dr. HERNANDEZ Uncontrolled pain (Inactive) R52 Allergies No Known Allergies Allergy (Verified 03/26/18 16:12) Home Medications: Ambulatory Orders Medication Instructions Recorded Rosuvastatin Calcium [Crestor] 40 mg PO QHS 07/15/13 Ferrous Sulfate 325 mg PO BIDCM 09/13/15 Albuterol Sulfate [Proair 1 puff INHALATION Q4H PRN PRN 09/25/15 Respiclick] Cholecalciferol (VIT D3) [Vitamin 2,000 unit PO DAILY 09/25/15 D3] Nitroglycerin [Nitrostat] 0.4 mg SUBLINGUAL Q5M PRN #30 tab 09/26/15 Aspirin E.C. [Ecotrin] 81 mg PO DAILY@0800 06/24/16 Folic Acid 1 mg PO QHS 06/24/16 Ipratropium/Albuterol Sulfate 3 ml INHALATION Q4H PRN PRN #30 11/02/16 [Duoneb] ampul.neb Metoprolol Tartrate [Lopressor 12.5 mg PO BID 01/20/17 (beta zach)] Docusate Sodium [Colace] 200 mg PO BID PRN PRN cap 01/27/17 Budesonide/Formoterol 160/4.5 2 puff INHALATION BID 02/08/17 [Symbicort 160/4.5 Mcg Inhaler (SP)] Furosemide [Lasix] 40 mg PO DAILY 02/08/17 isosorbide mononitrate ER 30 mg 30 mg PO QAM 11/21/17 tablet,extended release 24 hr pregabalin 75 mg capsule 75 mg PO TID 11/21/17 pantoprazole 40 mg tablet,delayed 40 mg PO BID tab 01/02/18 release warfarin 5 mg tablet 5 mg PO FULLER tab 01/02/18 warfarin 7.5 mg tablet 7.5 mg PO MOTUWETHFRSA tab 01/02/18 Hydrocodone/Acetaminophen [[place] 1 - 2 ea PO 4X/DAY PRN PRN 3 Days 03/25/18 5-325 Tablet] #12 tab Surgical History: Surgical History (Last Reviewed 03/26/18 @ 18:28 by Pancho Mantilla DO) History of left heart catheterization (Chronic) Z98.890 03/27/1993 [facility] prior to CABG X1 and AVR; 06/28/2011 prior to PTCA and BMS to mid LAD, BMS to the mid distal CX, and BMS to the proximal CX @ [facility] History of aortic valve replacement (Chronic) Z95.2 03/27/1993: RED to LAD and 23mm [facility] Rachid Mechanical AVR placed for severe per Dr. Darrell Shaw [facility] S/P CABG x 1 (Chronic) Z95.1 03/27/1993: RED to LAD and 23mm [facility] Rachid Prosthetic AVR placed for severe per Dr. Darrell Shaw, [facility] Surgical History: coronary bypass surgery, - - Mechanical aortic valve replacement, back surgeries, RLE ankle surgery recently. Psychiatric History: No pertinent psych hx Smoking Status: Current every day smoker - *Family History Maternal Family History: Family History (Last Reviewed 03/26/18 @ 18:28 by Pancho Mantilla DO) Son CAD (coronary artery disease) Myocardial infarction Sudden cardiac Brother CAD (coronary artery disease) Sister CAD (coronary artery disease) History Items: Diabetes, Heart Disease, Hypertension Paternal Family History: Family History (Last Reviewed 03/26/18 @ 18:28 by Pancho Mantilla DO) Son CAD (coronary artery disease) Myocardial infarction Sudden cardiac Brother CAD (coronary artery disease) Sister CAD (coronary artery disease) History Items: Diabetes, Heart Disease, Hypertension Review of Systems Constitutional: Denies: Chills, Fever Cardiovascular: Denies: Chest Pain, Claudication Respiratory: Denies: Shortness of Breath Gastrointestinal: Denies: Diarrhea, Nausea, Vomiting Musculoskeletal: Reports: Foot Pain, Joint Pain, Joint swelling, Leg Pain Skin: Reports: -. Denies: Wounds Neurological: Reports: Incoordination Hematologic/ Lymphatic: Reports: Anemia, Easy Bruising, Easy Bleeding - Physical Exam General: Alert, Oriented x3, Cooperative HEENT: Atraumatic Extremities: No cyanosis, Capillary Refill Less than 3 Seconds - All digits of the left foot, No Calf Tenderness - Negative Ibanez sign left, Peripheral Pulses Normal - 2 out of 4 palpable DP pulse. Mild to moderate edema to left ankle makes palpation of the PT pulse challenging Skin: - - No skin tenting or open lesions appreciated with the evaluation with the splint intact. His splint remains clean dry and intact with ankle and rectus position with no strikethrough or evidence of adjacent infection Musculoskeletal: No Tenderness to Palpation of Joints or Extremities, Muscle Wasting, Tenderness - Pain to palpate ankle joint including the medial lateral malleolus. No pain with heel compression, palpation of the navicula, or midfoot. There is pain to palpate the fifth metatarsal and lateral rear foot aspect Neurological: Sensory exam intact to light touch and pain, - Psych/Mental Status: Normal Affect, Appropriate Vital Signs Temp Pulse Resp BP Pulse Ox 97.8 F 64 16 132/67 H 97 03/27/18 08:05 03/27/18 08:11 03/27/18 08:05 03/27/18 08:05 03/27/18 08:05 Oxygen Flow Rate (L/min) 0.5 Oxygen Delivery Method Room Air Weight: 83 kg Body Mass Index (BMI) 26.2 Intake and Output for Last 24 Hours 03/25/18 03/26/18 03/27/18 23:59 23:59 23:59 Intake Total 1318 / 1318 Output Total 300 / 300 Balance 1018 / 1018 Laboratory Tests Past 24 Hrs 03/27/18 06:20 PT 34.0 H INR 3.3 Assessment/Plan All Active Problems (Last Reviewed 03/26/18 @ 18:28 by Pancho Mantilla DO) Closed left ankle fracture (Acute) Intractable pain (Acute) Trimalleolar fracture of ankle, closed (Acute) Left ankle pain (Acute) Risk for falls (Acute) GI bleed (Resolved) SALVADOR (acute kidney injury) (Resolved) Acute exacerbation of chronic obstructive pulmonary disease (Resolved) Bradycardia (Resolved) COPD with acute exacerbation (Resolved) Gram-negative pneumonia (Resolved) History of colonoscopy (Resolved) History of endoscopy (Resolved) Hypotension (Resolved) Hypoxia (Resolved) Subconjunctival hematoma (Resolved) Left trimalleolar ankle fracture Fall risk Uncontrolled left lower extremity pain Other comorbidities include atrial fibrillation on chronic Coumadin, anemia COPD , hypertension, hyperlipidemia, ischemic cardiomyopathy history with previous CABG, cardiac valve abnormality, history of GI bleed, history of chronic pain I reviewed and discussed his case and reviewed his x-rays which demonstrate reduction of a trimalleolar ankle fracture of the left lower extremity. This is unstable and I recommend surgical intervention if he can obtain cardiac and medical clearance. His INR was 3.6 noted yesterday and I recommend he holds his coumadin at this time. His soft tissue envelope is continuing to calm down and I recommend trying to perform the surgery within the next 1-2 weeks on an inpatient versus outpatient basis. His pain medication regimen is noted and he is tentatively scheduled for discharge today. I reached out to hospitalist, Dr. Hoffman, to further review the timing of the surgery. I recommend strict nonweightbearing. To ice and elevate for pain and inflammation management. The ptient understands he will need to be admitted after surgery for pain control given the extent of the surgical intervention as well as his history of chronic pain issues. He also understands that he may need to also consider temporary rehabilitation placement. He is considered a high fall risk at this time. Thank you for the consultation. Please not hesitate to call if you have any questions. Mary Alice Villarreal DPM, FACFAS [facility] [phone]
[2018-03-27 13:20] VITALS: BP 110/56; PULSE 59; RESP 16; TEMP 36.6; O2SAT 93
== END 2018-03-27 13:34 | disposition home or self-care (01) ==
LOC: ED 18:26 → MS2 18:28
PROVIDERS: Emergency Provider Emergency Medicine; Family Provider Family Medicine; PCP Family Medicine; Visit Provider Internal Medicine
DX: S82.852A Displaced trimalleolar fracture of left lower leg, initial encounter for closed fracture (principal); W18.40XA Slipping, tripping and stumbling without falling, unspecified, initial encounter; Y93.9 Activity, unspecified; Y92.015 Private garage of single-family (private) house as the place of occurrence of the external cause; I27.21 Secondary pulmonary arterial hypertension; E11.9 Type 2 diabetes mellitus without complications; I11.0 Hypertensive heart disease with heart failure; I50.22 Chronic systolic (congestive) heart failure; Z95.2 Presence of prosthetic heart valve; Z95.1 Presence of aortocoronary bypass graft; J44.9 Chronic obstructive pulmonary disease, unspecified; I48.2 Chronic atrial fibrillation; D50.0 Iron deficiency anemia secondary to blood loss (chronic); Z79.899 Other long term (current) drug therapy; Z79.82 Long term (current) use of aspirin; Z79.01 Long term (current) use of anticoagulants; G89.4 Chronic pain syndrome; E78.5 Hyperlipidemia, unspecified; I48.0 Paroxysmal atrial fibrillation; D68.32 Hemorrhagic disorder due to extrinsic circulating anticoagulants; T45.515A Adverse effect of anticoagulants, initial encounter; M48.061 Spinal stenosis, lumbar region without neurogenic claudication; Z79.51 Long term (current) use of inhaled steroids; F17.200 Nicotine dependence, unspecified, uncomplicated
CPT/HCPCS: 36415; 80053; 85025; 85610; 85730; 94640; 96361; 96374; 96375; 96376; 97162; 97165; 99218; 99284; J7030; A4216; G0378; G8978; G8979; G8987; G8988; J2405

== ENCOUNTER → 2018-04-03 16:07 | Outpatient (CLI) | payer MEDICARE, OTHER, SELFPAY ==
[2018-04-03 17:56] LABS: International Normalized Ratio 1.3; Prothrombin Time (Protime)PT. 16.6 SECONDS (11.7-14.9)
[2018-04-03 17:59] LABS: AST(SGOT) 31 U/L (15-37); Alanine Aminotransfer ALT/SGPT 22 U/L (16-61); Albumin, Serum 3.7 g/dL (3.2-5.0); Alkaline Phosphatase 122 U/L (45-117); Anion Gap 8 (5-15); BUN 24 mg/dL (7-18); BUN/Creat Ratio 20.2 RATIO (10-20); Calcium,Total 8.8 mg/dL (8.5-10.1); Chloride 103 mmol/L (98-107); Creatinine, Serum 1.19 mg/dL (0.70-1.30); EST Glomerular Filtration Rate 63 mL/min (>60); Est Glom Filt Rate - Afr Amer 76 mL/min (>60); Globulin 3.7 g/dL (2.2-4.2); Glucose 95 mg/dL (74-106); Potassium 3.5 mmol/L (3.5-5.1); Protein, Total 7.4 g/dL (6.4-8.2); Sodium Level 139 mmol/L (136-145)
[2018-04-03 18:03] LABS: Absolute Lymphocyte Count 0.69 X10^3/ul (0.83-4.51); Absolute Neutrophil Count 3.4 X10^3/uL (2.0-7.7); Basophil# 0.03 X10^3/uL; Basophil% 0.7 % (0-1); Eosinophil# 0.06 X10^3/uL; Eosinophils% 1.3 % (0-5); Hematocrit 34.9 % (40-54); Hemoglobin 10.5 g/dl (13.0-16.5); Lymphocyte # 0.69 X10^3/ul (4.0); Lymphocyte % 15.2 % (19-41); Mean Corp Hgb Conc 30.1 g/gl (32-36); Mean Corpuscular Hgb 30.7 pg (27.0-32.0); Mean Platelet Vol. 10.5 fl (6.2-12.0); Monocyte# 0.38 X10^3/uL; Monocyte% 8.4 % (0-10); Neutrophil # 3.37 X10^3/uL (2.7-7.7); Neutrophil % 74.2 % (47-70); POSITIVE COUNT NO; POSITIVE DIFFERENTIAL NO; POSITIVE MORPHOLOGY NO; Platelet Count 217 K/mm3 (150-450); RBC Distribution Width CV 14.8 % (11.6-14.6); RBC Distribution Width SD 55.5 fl (35.1-43.9); Red Blood Count 3.42 M/mm3 (4.6-6.2); White Blood Count 4.5 K/mm3 (4.4-11.0)
[2018-04-03 18:18] LABS: Vitamin D,25 Hydroxy 36.5 ng/mL (29.95-100.01)
== END ==
PROVIDERS: Family Provider Family Medicine; PCP Family Medicine; Visit Provider Family Medicine
DX: Z00.00 Encounter for general adult medical examination without abnormal findings (principal)
CPT/HCPCS: 36415; 80053; 82306; 85025; 85610

== ENCOUNTER → 2018-04-04 09:34 | Outpatient (CLI) | payer MEDICARE, OTHER, SELFPAY ==
--- NOTE | 2018-04-04 09:35 | STEWCON_ITS ---
Reason For Study: CAD/ASHD Stress Results Protocol: Dobutamine Stress Echocardiogram Maximum Predicted HR: 141 bpm Target HR: 120 bpm% Maximum Predicted HR: 110 % Heart Stage Duration Rate BPDos eComment (mm:ss) (bpm) DILUTED DEFINITY 4 ML USED DURING STRESS, VENTRICULAR BASELINE 95 112/ 62 BIGEMINY, TRIGEMINY, COUPLETS DSE- 10 MCG 3:29 76 110/5810.00VENTRICULAR COUPLETS, BIGEMINY, TRIGEMINY DSE- 20 MCG 3:06 11 3 .00VENTRICULAR ECTOPY CONTINUES, RARE VENTRICULAR TRIPLET DSE- 30 MCG 1:53 13 0 100/7230.00NO CP, VENTRICULAR TRIPLETS, COUPLETS, TRIGEMINY RECOVERY 155 93/ 59 PT HR WENT UP TO 155, SVT VS AFIB W/RVR PT DENIES COMPLAINT, VENTRICULAR COUPLETS, BIGEMINY AND RECOVERY 90 122/ 71 TRIGEMINY. Stress Duration: 8:28 mm:ss Maximum Stress HR: 155 bpm Baseline Echocardiogram Findings The estimated ejection fraction is 40 %. Stress Echo Wall motion Data Resting WMIntermediate WMStress WM Resting Wall Motion Anterior [facility] : Akinetic. Mid-anteroseptal : Severly Hypokinetic. EKG Data The baseline ECG displays normal sinus rhythm. RBBB. The patient was titrated from 10 mcg to a maximun of 30 mcg of dobutamine during the stress. The maximum heart rate attained was 155 beats per minute. This was 109% of maximum predicted heart rate. During dobutamine infusion, there were no ST or T wave changes noted to suggest ischemia. No clinical angina was noted. Interpretation Summary The patient was titrated from 10 mcg to a maximun of 30 mcg of dobutamine during the stress. Normal, adequate, dobutamine echocardiogram. Negative for ischemia by EKG and echocardiographic criteria. Frequent PACs and rare PVCs noted. Patient had baseline mid anteroseptal and apical hypokinesis from previous myocardial infarction. All remaining enciso contracted normally. Final LVEF of 55%. No anginal symptoms noted. Appropriate blood pressure response to dobutamine. Test terminated due to the attainment of target heart rate. Decreased sensitivity due to poor echo windows requiring Definity agent. No complications. Patient is at moderate risk for noncardiac surgery. Ordering Physician: Gavino Rosas Referring Physician: Gavino Rosas Performed By: Amarjit Zeng RCS
== END ==
PROVIDERS: Family Provider Family Medicine; PCP Family Medicine; Visit Provider Internal Medicine Cardiovascular Disease
DX: I25.5 Ischemic cardiomyopathy (principal); I50.22 Chronic systolic (congestive) heart failure; I25.10 Atherosclerotic heart disease of native coronary artery without angina pectoris; I48.91 Unspecified atrial fibrillation; Z95.5 Presence of coronary angioplasty implant and graft; Z95.1 Presence of aortocoronary bypass graft; Z95.2 Presence of prosthetic heart valve
CPT/HCPCS: 93017; 93350; J7030; Q9957; A4216; C8928

== ENCOUNTER 2018-04-07 16:53 | Inpatient (IN) | payer MEDICARE, SELFPAY ==
[2018-04-07] VITALS (11 sets, daily range): BP systolic 114–162; BP diastolic 55–76; PULSE 57–85; RESP 16–20; TEMP 36.2–37.1; O2SAT 94–100; BMI 25.1
--- NOTE | 2018-04-07 11:45 | RAD_ITS ---
STUDY: X-RAY - LEFT FOOT CLINICAL: Male, 77 years old. Fracture of the distal fibula. TECHNIQUE: 3 view(s) of the foot were obtained in a cast. COMPARISON: None. FINDINGS: Normal talus, calcaneus, and tarsal bones. Presents of a nondisplaced oblique fracture of the distal fibula extending to the lateral malleolus. Normal visualized subtalar, talonavicular, calcaneocuboid, tarsal and tarsometatarsal articulations. Normal metatarsi. Normal metatarsophalangeal joint of the great toe. Normal tibial and fibular sesamoid bones. Normal interphalangeal joint of the great toe. Normal phalanges of the great toe. Normal second through fifth metatarsophalangeal joints. Normal interphalangeal joints and phalanges of the lesser toes. Soft tissue swelling. RAD/Foot min 3 Views IMPRESSION: Nondisplaced oblique fracture distal fibula with extension of the lateral malleolus. Soft tissue swelling. Electronically Signed: Tyler Early MD at 12:54 EDT Tel [phone], Service support ,
--- NOTE | 2018-04-07 12:05 | RAD_ITS ---
STUDY: X-RAY CHEST REASON FOR EXAM: Male, 77 years old. Preoperative evaluation. TECHNIQUE: PA and lateral views of the chest. COMPARISON: Comparison is made with prior study dated August 09, 2017. FINDINGS: Hyperinflation. Decreased bronchovascular markings in the upper lobes suggestive of emphysematous changes. Scattered calcified granulomas. There is no demonstrated pleural abnormality. Sternal cerclage wires and vascular clips are present from a prior sternotomy and coronary artery bypass graft procedure (CABG). Normal mediastinum and yonas. Normal visualized pulmonary arteries. There is atherosclerotic calcification of the aortic arch with tortuosity. There is demineralization of the osseous structures. Normal visualized ribs, clavicles, and shoulders. There is no demonstrated abnormality of the visualized soft tissue structures of the upper abdomen. RAD/Chest PA and Lateral IMPRESSION: Hyperinflation. Electronically Signed: Tyler Early MD at 12:48 EDT Tel [phone], Service support ,
[2018-04-07] MEDS: Cefazolin 2 GM in 0.9% Normal Saline 100 ML IV (13:15)
--- NOTE | 2018-04-07 13:30 | RAD_ITS ---
STUDY: X-RAY - LEFT ANKLE REASON FOR EXAM: Male, 77 years old. Intraoperative assessment, ankle fracture TECHNIQUE: Three view(s) of the ankle were obtained. COMPARISON: March 25, 2018 FINDINGS: Bones: There are two lag screws through the medial malleolus. A plate and screws overlie the distal fibula. There are two additional screws in the distal fibula. Joints: The visualized joints are unremarkable. Soft tissues: There is mild soft tissue swelling. Fluoroscopy time 127.7 seconds. Cumulative dose 4.02 mGy. RAD/Ankle 2 Views IMPRESSION: Limited imaging of the left ankle was obtained intraoperatively during fracture fixation. Electronically Signed: Radha Garcia MD at 17:21 EDT Tel Direct: [phone], Service support ,
[2018-04-07] MEDS: Bupivacaine Mpf 0.5% 30 ML VIAL (14:30)
--- NOTE | 2018-04-07 16:20 | PCM.IMDPSTOP ---
Problem List (1) Intractable pain Status: Chronic (2) Trimalleolar fracture of ankle, closed Status: Acute Qualifiers: Encounter type: subsequent encounter Laterality: left (3) Tobacco use disorder Status: Chronic Immediate Post-Op Note Date of Procedure: 04/07/18 - certified pharmacist assistant: Pasquale Grande, pgy3, Kim Cabral, PGY1 Surgeon: Mary Alice Villarreal DPM Primary Surgeon/Physician: Mary Alice Villarreal DPM legal support assistant: none Pre-Operative Diagnosis: trimalleolus ankle fracture, left Post-Operative Diagnosis: trimalleolus ankle fracture, left Surgery/Procedure Performed:: Open reduction internal fixation of the left trimalleolus ankle fracture Description of Surgical Findings:: hemostasis controlled materials: arthrex fibular locking plate, 4 x locking 2.5 screws, 2 x locking 3.5 screws, 3 x cortical 3.5 screw, 2 x 4.0 cannulated short thread screws, 2-0 vicryl, 3-0 vicryl, 3-0 nylon solid fixation of fractures see detailed operation report The patient tolerated the procedure and anesthesia well. He was transported to the PACU with vital signs stable and vascular status intact to the left lower extremity. He will be transferred to the medical surgical floor upon continued stability. Post operative orders were entered electronically. Estimated Blood Loss: < 150 mL Specimen's removed: none Type of Anesthesia:: General/Regional - post op popliteal block, Local - preop: 18 cc 1:1 mix of 0.5% marcaine plain and 1% lidocain plain administered in local infiltrative / high ankle block manner of left lower extremity - Admit VTE Documentation VTE Present on Admission: No VTE Mechan Device Prophylaxis: SCD's VTE Pharm Prophylaxis ordered?: Yes
--- NOTE | 2018-04-07 16:24 | OP.PN_ITS ---
Problem List (1) Intractable pain Status: Chronic (2) Trimalleolar fracture of ankle, closed Status: Acute Qualifiers: Encounter type: subsequent encounter Laterality: left (3) Tobacco use disorder Status: Chronic Immediate Post-Op Note Date of Procedure: 04/07/18 - assistant purchasing manager: Pasquale Grande, pgy3, Kim Cabral, PGY1 Surgeon: Mary Alice Villarreal DPM Primary Surgeon/Physician: Mary Alice Villarreal DPM director of finance: none Pre-Operative Diagnosis: trimalleolus ankle fracture, left Post-Operative Diagnosis: trimalleolus ankle fracture, left Surgery/Procedure Performed:: Open reduction internal fixation of the left trimalleolus ankle fracture Description of Surgical Findings:: hemostasis controlled materials: arthrex fibular locking plate, 4 x locking 2.5 screws, 2 x locking 3.5 screws, 3 x cortical 3.5 screw, 2 x 4.0 cannulated short thread screws, 2-0 vicryl, 3-0 vicryl, 3-0 nylon solid fixation of fractures see detailed operation report The patient tolerated the procedure and anesthesia well. He was transported to the PACU with vital signs stable and vascular status intact to the left lower extremity. He will be transferred to the medical surgical floor upon continued stability. Post operative orders were entered electronically. Estimated Blood Loss: < 150 mL Specimen's removed: none Type of Anesthesia:: General/Regional - post op popliteal block, Local - preop: 18 cc 1:1 mix of 0.5% marcaine plain and 1% lidocain plain administered in local infiltrative / high ankle block manner of left lower extremity - Admit VTE Documentation VTE Present on Admission: No VTE Mechan Device Prophylaxis: SCD's VTE Pharm Prophylaxis ordered?: Yes
--- NOTE | 2018-04-07 16:38 | PCM.OPRPT ---
Problem List (1) Intractable pain Status: Chronic (2) Trimalleolar fracture of ankle, closed Status: Acute Qualifiers: Encounter type: subsequent encounter Laterality: left (3) Tobacco use disorder Status: Chronic Report of Operation Date of Procedure: 04/07/18 - research assistant professor: Pasquale Grande, pgy3, Kim Cabral, PGY1 Surgeon: Mary Alice Villarreal DPM Pre-Operative Diagnosis: trimalleolus ankle fracture, left Post-Operative Diagnosis: trimalleolus ankle fracture, left Surgery/Procedure Performed:: Open reduction internal fixation of the left trimalleolus ankle fracture Description of Surgical Findings:: hemostasis: Well-padded pneumatic thigh tourniquet at 315 mmHg, 96 minutes materials: arthrex fibular locking plate, 4 x locking 2.5 screws, 2 x locking 3.5 screws, 3 x cortical 3.5 screw, 2 x 4.0 cannulated short thread screws, 2-0 vicryl, 3-0 vicryl, 3-0 nylon Complications: None home school teacher: none Type of Anesthesia:: General/Regional - post op popliteal block, Local - preop: 18 cc 1:1 mix of 0.5% marcaine plain and 1% lidocain plain administered in local infiltrative / high ankle block manner of left lower extremity Specimen's removed: none Estimated Blood Loss (mL): < 150 mL Description of Procedure: Indications: This 77-year-old male with significant past medical history of coronary artery disease, mechanical valve on chronic anticoagulation, chronic anemia, atrial fibrillation, spinal stenosis, hypertension, hyperlipidemia, nicotine use sustained an unstable trimalleolar ankle fracture of the left lower extremity approximately two and half weeks ago. This fracture site was reduced in the emergency room and his skin envelope remains intact. His neurovascular status remains intact. He has a spiral oblique fracture of the distal fibula, transverse fracture of the medial malleolus, and a less than 20% posterior malleolus fracture fragment. He is unable to bear weight. He is still fairly active at home and I recommend surgical intervention. The preoperative indications, planned procedure, possible benefits, risks, complications, and anticipated healing time and management were discussed in detail the patient. He understands and elects to proceed with surgery at this time. He understands complications may include but are not limited to the following: Pain, swelling, scarring, delayed or non-healing of the skin or bone, hardware failure, infection, under or overcorrection, need for additional surgery, blood clot, allergic reaction, loss of limb, function, life, numbness, chronic pain syndrome. I answered all his questions. The informed surgical consent and the surgical limb were signed. Medical clearance was obtained by his primary care physician as well as his foreign agent. It is noted his ejection fraction is around 45%. His preoperative diagnostic data was reviewed and without gross abnormalities. Preoperative INR was subtherapeutic. Procedure in detail: The patient was transferred to the operating room via cart and placed on the operating table in supine position. Final verification of the patient, surgery, and limb designation was performed via the timeout procedure. A well-padded pneumatic thigh tourniquet was placed on the left lower extremity. The patient was given 2 g of IV Ancef prior to the surgical procedure initiation. General anesthesia was initiated by the anesthesia team. The left lower extremity was prepped and draped in the usual aseptic manner. Exsanguination was performed with an Esmarch bandage and the tourniquet was inflated at this time. Attention was first directed to the lateral aspect of the ankle in which a 7 cm linear incision was made through the skin. Blunt dissection was performed down to the fracture fragment taking care to preserve the periosteum. The fracture hematoma was identified and the fracture site was gently mobilized. A bone reducing forceps was used to obtain anatomic reduction. Two 3.5 cortical screws were applied perpendicular to the fracture fragment utilizing lag technique and proper AO fixation techniques to achieve solid fracture fixation and improved stability. Intraoperative fluoroscopy was utilized to confirm appropriate hinduism of the fibular length and rotational position. The distal fibula locking plate was next applied and secured with screws to the distal lateral malleolus. Additional locking and nonlocking screws were applied via the plate to span the entire fracture fragment. All reduction clamps were removed and this fracture was fixated in a stable manner removed as one solid unit. Next attention was directed to the medial malleolus in which a small incision was made in the skin and the fracture fragment was identified and gently mobilized. The periosteal lipping was reflected out of the fracture fragment site and manual manipulation of this fragment site was performed. Intraoperative fluoroscopy was used to confirm improved rectus mortise alignment in multiple views. This was next secured in place with two 4.0 cannulated screws. His bone was relatively soft and the screws however solid fixation was achieved as the screws were applied utilizing lag technique. Solid fixation was achieved clinically. Radiographically all hardware was checked and the desired trajectory, length, and position with fixated fracture position was confirmed. A fibular transitional stress test was next performed and there was no syndesmosis gapping. The posterior malleolus fracture fragment reduced into anatomic alignment and additional fixation at the site was not pursued. All wound sites were irrigated with normal saline. Deep closure was achieved with 2-0 Vicryl to cover all hardware. The tourniquet was deflated and brisk capillary refill time was noted to all digits of the left lower extremity. No pulsatile bleeding was noted. Pressure was applied to maintain hemostasis and minimal electrocauterization was needed. Deep closure was achieved with 2-0 and 3-0 Vicryl. The skin was reapproximated with 4-0 nylon utilizing no touch technique with simple and horizontal mattress technique. Formal postoperative x-rays will be obtained postoperatively. A postoperative dressing consisting of Adaptic, gauze, abdominal pads, Kerlix, sterile webril, and Kerlix was applied in a protective manner. Next, a posterior mold and sugar tong splint were applied with the foot and ankle in a rectus position and this was secured gently with Nic wraps. After procedure: The patient tolerated the procedure and anesthesia well. He was transported to the PACU with vital signs stable and vascular status intact to the left lower extremity. He will be transferred back to the medical surgical floor upon continued stability for pain control and medical management. All of his postoperative orders were entered electronically. He was advised to maintain a strict nonweightbearing left lower extremity status. To ice and elevate for pain and inflammation management. Medical management, DVT prophylaxis, and pain management per primary team is appreciated. He will resume Coumadin. Rehabilitation placement is highly recommended and this is in process pending PT/OT evaluation. I recommend nutritional supplementation, Jonathan, nicotine cessation. It is noted his vitamin D level is currently within the normal range. This case was discussed with anesthesia who will administer a popliteal block. This case was also discussed with the admitting hospitalist. All of his postoperative orders were entered electronically. Mary Alice Villarreal DPM, [facility] [place]
--- NOTE | 2018-04-07 16:44 | OP.PCM_ITS ---
Problem List (1) Intractable pain Status: Chronic (2) Trimalleolar fracture of ankle, closed Status: Acute Qualifiers: Encounter type: subsequent encounter Laterality: left (3) Tobacco use disorder Status: Chronic Report of Operation Date of Procedure: 04/07/18 - assistant press operator offset: Pasquale Grande, pgy3, Kim Cabral, PGY1 Surgeon: MaryA lice Villarreal DPM Pre-Operative Diagnosis: trimalleolus ankle fracture, left Post-Operative Diagnosis: trimalleolus ankle fracture, left Surgery/Procedure Performed:: Open reduction internal fixation of the left trimalleolus ankle fracture Description of Surgical Findings:: hemostasis: Well-padded pneumatic thigh tourniquet at 315 mmHg, 96 minutes materials: arthrex fibular locking plate, 4 x locking 2.5 screws, 2 x locking 3.5 screws, 3 x cortical 3.5 screw, 2 x 4.0 cannulated short thread screws, 2-0 vicryl, 3-0 vicryl, 3-0 nylon Complications: None merchandise flow associate: none Type of Anesthesia:: General/Regional - post op popliteal block, Local - preop: 18 cc 1:1 mix of 0.5% marcaine plain and 1% lidocain plain administered in local infiltrative / high ankle block manner of left lower extremity Specimen's removed: none Estimated Blood Loss (mL): < 150 mL Description of Procedure: Indications: This 77-year-old male with significant past medical history of coronary artery disease, mechanical valve on chronic anticoagulation, chronic anemia, atrial fibrillation, spinal stenosis, hypertension, hyperlipidemia, nicotine use sustained an unstable trimalleolar ankle fracture of the left lower extremity approximately two and half weeks ago. This fracture site was reduced in the emergency room and his skin envelope remains intact. His neurovascular status remains intact. He has a spiral oblique fracture of the distal fibula, transverse fracture of the medial malleolus, and a less than 20% posterior malleolus fracture fragment. He is unable to bear weight. He is still fairly active at home and I recommend surgical intervention. The preoperative indications, planned procedure, possible benefits, risks, complications, and anticipated healing time and management were discussed in detail the patient. He understands and elects to proceed with surgery at this time. He understands complications may include but are not limited to the following: Pain, swelling, scarring, delayed or non-healing of the skin or bone, hardware failure, infection, under or overcorrection, need for additional surgery, blood clot, allergic reaction, loss of limb, function, life, numbness, chronic pain syndrome. I answered all his questions. The informed surgical consent and the surgical limb were signed. Medical clearance was obtained by his primary care physician as well as his beamster. It is noted his ejection fraction is around 45%. His preoperative diagnostic data was reviewed and without gross abnormalities. Preoperative INR was subtherapeutic. Procedure in detail: The patient was transferred to the operating room via cart and placed on the operating table in supine position. Final verification of the patient, surgery, and limb designation was performed via the timeout procedure. A well-padded pneumatic thigh tourniquet was placed on the left lower extremity. The patient was given 2 g of IV Ancef prior to the surgical procedure initiation. General anesthesia was initiated by the anesthesia team. The left lower extremity was prepped and draped in the usual aseptic manner. Exsanguination was performed with an Esmarch bandage and the tourniquet was inflated at this time. Attention was first directed to the lateral aspect of the ankle in which a 7 cm linear incision was made through the skin. Blunt dissection was performed down to the fracture fragment taking care to preserve the periosteum. The fracture hematoma was identified and the fracture site was gently mobilized. A bone reducing forceps was used to obtain anatomic reduction. Two 3.5 cortical screws were applied perpendicular to the fracture fragment utilizing lag technique and proper AO fixation techniques to achieve solid fracture fixation and improved stability. Intraoperative fluoroscopy was utilized to confirm appropriate episcopalian of the fibular length and rotational position. The distal fibula locking plate was next applied and secured with screws to the distal lateral malleolus. Additional locking and nonlocking screws were applied via the plate to span the entire fracture fragment. All reduction clamps were removed and this fracture was fixated in a stable manner removed as one solid unit. Next attention was directed to the medial malleolus in which a small incision was made in the skin and the fracture fragment was identified and gently mobilized. The periosteal lipping was reflected out of the fracture fragment site and manual manipulation of this fragment site was performed. Intraoperative fluoroscopy was used to confirm improved rectus mortise alignment in multiple views. This was next secured in place with two 4.0 cannulated screws. His bone was relatively soft and the screws however solid fixation was achieved as the screws were applied utilizing lag technique. Solid fixation was achieved clinically. Radiographically all hardware was checked and the desired trajectory, length, and position with fixated fracture position was confirmed. A fibular transitional stress test was next performed and there was no syndesmosis gapping. The posterior malleolus fracture fragment reduced into anatomic alignment and additional fixation at the site was not pursued. All wound sites were irrigated with normal saline. Deep closure was achieved with 2-0 Vicryl to cover all hardware. The tourniquet was deflated and brisk capillary refill time was noted to all digits of the left lower extremity. No pulsatile bleeding was noted. Pressure was applied to maintain hemostasis and minimal electrocauterization was needed. Deep closure was achieved with 2-0 and 3-0 Vicryl. The skin was reapproximated with 4-0 nylon utilizing no touch technique with simple and horizontal mattress technique. Formal postoperative x-rays will be obtained postoperatively. A postoperative dressing consisting of Adaptic, gauze, abdominal pads, Kerlix, sterile webril, and Kerlix was applied in a protective manner. Next, a posterior mold and sugar tong splint were applied with the foot and ankle in a rectus position and this was secured gently with Nic wraps. After procedure: The patient tolerated the procedure and anesthesia well. He was transported to the PACU with vital signs stable and vascular status intact to the left lower extremity. He will be transferred back to the medical surgical floor upon continued stability for pain control and medical management. All of his postoperative orders were entered electronically. He was advised to maintain a strict nonweightbearing left lower extremity status. To ice and elevate for pain and inflammation management. Medical management, DVT prophylaxis, and pain management per primary team is appreciated. He will resume Coumadin. Rehabilitation placement is highly recommended and this is in process pending PT/OT evaluation. I recommend nutritional supplementation, Jonathan, nicotine cessation. It is noted his vitamin D level is currently within the normal range. This case was discussed with anesthesia who will administer a popliteal block. This case was also discussed with the admitting hospitalist. All of his postoperative orders were entered electronically. Mary Alice Villarreal DPM, [facility] [place]
--- NOTE | 2018-04-07 17:00 | RAD_ITS ---
STUDY: X-RAY - LEFT ANKLE REASON FOR EXAM: Male, 77 years old. Status post open reduction internal fixation. TECHNIQUE: 3 view(s) of the ankle. COMPARISON: 03/25/2018. FINDINGS: There are 2 surgical screws securing fracture of the medial malleolus. There is a side plate and screws securing the fracture of the distal fibula. There may be minimal step of the medial malleolus. Normal tibiotalar articulation and ankle mortise. Normal visualized talus and calcaneus. The visualized subtalar, talonavicular, calcaneocuboid and tarsal articulations are normal. The ankle is in cast obscuring the soft tissue details. RAD/Ankle min 3 Views IMPRESSION: Status post open reduction internal fixation as described above. Electronically Signed: Aristeo Jhonston MD at 0:04 EDT Tel , Service support ,
--- NOTE | 2018-04-07 17:01 | PCM.HP.STD ---
Problem List (1) Trimalleolar fracture of ankle, closed Status: Acute Qualifiers: Encounter type: subsequent encounter Laterality: left History of Present Illness Date of Admission: 04/07/18 Chief Complaint: post op pain control. The patient is a 77 year old M who suffered a fracture of his left ankle and was found to have a trimalleolar fracture. This occurred March 26. Patient was admitted through the through the for pain control. Patient was seen by podiatry and wanted to wait until the swelling improved before patient underwent surgery. Today, the patient underwent an open reduction and internal fixation of the left dry malleolus ankle fracture by Dr. Villarreal. Patient being admitted for further postoperative pain control and also assessing to see the patient will acquire additional therapeutic measures upon discharge. Currently, the patient is groggy postoperatively and unable to provide any history. [] Past Medical History Past Medical History (Chronic Problems): Chronic Problems (Last Reviewed 03/26/18 @ 18:28 by Pancho Mantilla DO) Intractable pain (Chronic) Non-rheumatic tricuspid valve insufficiency (Chronic) Secondary pulmonary arterial hypertension (Chronic) Chronic systolic (congestive) heart failure (Chronic) Ischemic cardiomyopathy (Chronic) History of coronary artery stent placement (Chronic) 06/28/2011 prior to PTCA and BMS (3.0 mm X 18 mm long Integrity stent) to mid LAD, BMS to the mid distal CX (4.5 X 16mm Veriflex stent), and BMS to the proximal CX (3.5 X 15 mm Integrity stent) @ [facility] Atherosclerotic heart disease of [place] coronary artery without angina pectoris (Chronic) 03/27/1993: RED to LAD (CABG X1 along with AVR, [facility]):06/28/2011 prior to PTCA and BMS to mid LAD, BMS to the mid distal CX, and BMS to the proximal CX @ [facility] History of left heart catheterization (Chronic) 03/27/1993 [facility] prior to CABG X1 and AVR; 06/28/2011 prior to PTCA and BMS to mid LAD, BMS to the mid distal CX, and BMS to the proximal CX @ [facility] History of aortic valve replacement (Chronic) 03/27/1993: RED to LAD and 23mm [facility] Rachid Mechanical AVR placed for severe per Dr. Darrell Shaw, [facility] S/P CABG x 1 (Chronic) 03/27/1993: RED to LAD and 23mm [facility] Rachid Prosthetic AVR placed for severe per Dr. Darrell Shaw, [facility] current use of anticoagulant (Chronic) History of GI bleed (Chronic) 08/09/2017 COPD (chronic obstructive pulmonary disease) (Chronic) Atrial fibrillation (Chronic) Anemia due to chronic blood loss (Chronic) Chronic airway obstruction (Chronic) HLD (hyperlipidemia) (Chronic) HTN (hypertension) (Chronic) Spinal stenosis of lumbar region (Chronic) Tobacco use disorder (Chronic) Chronic pain syndrome (Chronic) follows with pain Management, Dr. HERNANDEZ Medical History: Medical History (Last Reviewed 04/07/18 @ 17:04 by Pancho Mantilla DO) Non-rheumatic tricuspid valve insufficiency (Chronic) I36.1 Secondary pulmonary arterial hypertension (Chronic) I27.21 Chronic systolic (congestive) heart failure (Chronic) I50.22 Ischemic cardiomyopathy (Chronic) I25.5 History of coronary artery stent placement (Chronic) Z95.5 06/28/2011 prior to PTCA and BMS (3.0 mm X 18 mm long Integrity stent) to mid LAD, BMS to the mid distal CX (4.5 X 16mm Veriflex stent), and BMS to the proximal CX (3.5 X 15 mm Integrity stent) @ [facility] Atherosclerotic heart disease of [place] coronary artery without angina pectoris (Chronic) I25.10 03/27/1993: RED to LAD (CABG X1 along with AVR, [facility]):06/28/2011 prior to PTCA and BMS to mid LAD, BMS to the mid distal CX, and BMS to the proximal CX @ [facility] [employer] current use of anticoagulant (Chronic) Z79.01 History of GI bleed (Chronic) Z87.19 08/09/2017 GI bleed (Resolved) K92.2 COPD (chronic obstructive pulmonary disease) (Chronic) J44.9 Atrial fibrillation (Chronic) I48.91 Anemia due to chronic blood loss (Chronic) D50.0 Spinal stenosis of lumbar region (Chronic) M48.06 Tobacco use disorder (Chronic) F17.200 Chronic pain syndrome (Chronic) G89.4 follows with pain Management, Dr. HERNANDEZ Uncontrolled pain (Inactive) R52 Allergies No Known Allergies Allergy (Verified 04/04/18 12:51) Home Medications: Ambulatory Orders Medication Instructions Recorded Rosuvastatin Calcium [Crestor] 40 mg PO QHS 07/15/13 Ferrous Sulfate 325 mg PO BIDCM 09/13/15 Albuterol Sulfate [Proair 1 puff INHALATION Q4H PRN PRN 09/25/15 Respiclick] Cholecalciferol (VIT D3) [Vitamin 2,000 unit PO DAILY 09/25/15 D3] Nitroglycerin [Nitrostat] 0.4 mg SUBLINGUAL Q5M PRN #30 tab 09/26/15 Aspirin E.C. [Ecotrin] 81 mg PO DAILY@0800 06/24/16 Folic Acid 1 mg PO QHS 06/24/16 Ipratropium/Albuterol Sulfate 3 ml INHALATION Q4H PRN PRN #30 11/02/16 [Duoneb] ampul.neb Metoprolol Tartrate [Lopressor 12.5 mg PO BID 01/20/17 (beta zach)] Docusate Sodium [Colace] 200 mg PO BID PRN PRN cap 01/27/17 Budesonide/Formoterol 160/4.5 2 puff INHALATION BID 02/08/17 [Symbicort 160/4.5 Mcg Inhaler (SP)] Furosemide [Lasix] 40 mg PO DAILY 02/08/17 isosorbide mononitrate ER 30 mg 30 mg PO QAM 11/21/17 tablet,extended release 24 hr pregabalin 75 mg capsule 75 mg PO BID 11/21/17 pantoprazole 40 mg tablet,delayed 40 mg PO BID tab 01/02/18 release warfarin 5 mg tablet 5 mg PO FULLER tab 01/02/18 warfarin 7.5 mg tablet 7.5 mg PO MOTUWETHFRSA tab 01/02/18 Surgical History: Surgical History (Last Reviewed 04/07/18 @ 17:04 by Pancho Mantilla DO) History of left heart catheterization (Chronic) Z98.890 03/27/1993 [facility] prior to CABG X1 and AVR; 06/28/2011 prior to PTCA and BMS to mid LAD, BMS to the mid distal CX, and BMS to the proximal CX @ [facility] History of aortic valve replacement (Chronic) Z95.2 03/27/1993: RED to LAD and 23mm [facility] Rachid Mechanical AVR placed for severe per Dr. Darrell Shaw, [facility] S/P CABG x 1 (Chronic) Z95.1 03/27/1993: RED to LAD and 23mm [facility] Rachid Prosthetic AVR placed for severe per Dr. Darrell Shaw, [facility] Surgical History: coronary bypass surgery, - - Mechanical aortic valve replacement, back surgeries, RLE ankle surgery recently. Psychiatric History: No pertinent psych hx Smoking Status: Current every day smoker Tobacco Use: Cigarettes - *Family History Maternal Family History: Family History (Last Reviewed 04/07/18 @ 17:04 by Pancho Mantilla DO) Son CAD (coronary artery disease) Myocardial infarction Sudden cardiac Brother CAD (coronary artery disease) Sister CAD (coronary artery disease) History Items: Diabetes, Heart Disease, Hypertension Paternal Family History: Family History (Last Reviewed 04/07/18 @ 17:04 by Pancho Mantilla DO) Son CAD (coronary artery disease) Myocardial infarction Sudden cardiac Brother CAD (coronary artery disease) Sister CAD (coronary artery disease) History Items: Diabetes, Heart Disease, Hypertension Review of Systems Unable to obtain accurate/complete ROS d/t: Unable to obtain as the patient is groggy postoperatively. VTE Information - Inpt Only VTE Present on Admission: Yes VTE Pharm Prophylaxis ordered?: Yes - Physical Exam General: Confused, - - Afebrile HEENT: Atraumatic, Normocephalic Oral: Moist Mucosa, No Gingival or Mucosal Lesions/ Ulcerations Neck: No Nodes, Thyroid Normal Size and Texture Lungs: Clear to auscultation, Normal air movement, No rhonchi, No wheeze Cardiovascular: Regular rate, Regular Rhythm, Normal S1, Normal S2, No murmurs Abdomen: Bowel Sounds Present, Soft, Non Tender, Non-Distended, No Hepato-splenomegaly Musculoskeletal: - - Left foot and distal lower extremity are intact past, did not remove. Psych/Mental Status: Agitated Vital Signs Temp Pulse Resp BP Pulse Ox 36.2 C L 85 20 H 145/76 H 97 04/07/18 16:27 04/07/18 16:44 04/07/18 16:44 04/07/18 16:44 04/07/18 16:44 Oxygen Delivery Method Room Air Weight: 79.379 kg Body Mass Index (BMI) 25.1 Laboratory Tests Past 24 Hrs 04/07/18 04/07/18 12:45 12:45 PT 13.0 INR 1.0 Blood Type O POSITIVE Antibody Screen NEGATIVE Assessment/Plan All Active Problems (Last Reviewed 03/26/18 @ 18:28 by Pancho Mantilla DO) Closed left ankle fracture (Acute) Trimalleolar fracture of ankle, closed (Acute) Left ankle pain (Acute) Risk for falls (Acute) GI bleed (Resolved) SALVADOR (acute kidney injury) (Resolved) Acute exacerbation of chronic obstructive pulmonary disease (Resolved) Bradycardia (Resolved) COPD with acute exacerbation (Resolved) Gram-negative pneumonia (Resolved) History of colonoscopy (Resolved) History of endoscopy (Resolved) Hypotension (Resolved) Hypoxia (Resolved) Subconjunctival hematoma (Resolved) 1. Trimalleolar fracture Status post ORIF today Patient being admitted for further pain control Patient did have some issues in regards to oversedation with some of the pain control earlier this month so we will be cautious in regards to administration. Nonweightbearing Physical and occupational therapy evaluation for further assessment in regards to eventual disposition once patient is a stable for discharge Patient did have a nerve block performed in the PACU 2. Atrial fibrillation Continue with Coumadin. Discussed with podiatry and okay to start as his INR will not be therapeutic for several days Continue with metoprolol 3. CAD hold ASA 4. DVT proph: LMWH until INR therapeutic Code Visit Inpatient E&M: 23075 Init Hosp L2
--- NOTE | 2018-04-07 17:05 | HP.PCM_ITS ---
Problem List (1) Trimalleolar fracture of ankle, closed Status: Acute Qualifiers: Encounter type: subsequent encounter Laterality: left History of Present Illness Date of Admission: 04/07/18 Chief Complaint: post op pain control. The patient is a 77 year old M who suffered a fracture of his left ankle and was found to have a trimalleolar fracture. This occurred March 26. Patient was admitted through the through the for pain control. Patient was seen by podiatry and wanted to wait until the swelling improved before patient underwent surgery. Today, the patient underwent an open reduction and internal fixation of the left dry malleolus ankle fracture by Dr. Villarreal. Patient being admitted for further postoperative pain control and also assessing to see the patient will acquire additional therapeutic measures upon discharge. Currently, the patient is groggy postoperatively and unable to provide any history. [] Past Medical History Past Medical History (Chronic Problems): Chronic Problems (Last Reviewed 03/26/18 @ 18:28 by Pancho Mantilla DO) Intractable pain (Chronic) Non-rheumatic tricuspid valve insufficiency (Chronic) Secondary pulmonary arterial hypertension (Chronic) Chronic systolic (congestive) heart failure (Chronic) Ischemic cardiomyopathy (Chronic) History of coronary artery stent placement (Chronic) 06/28/2011 prior to PTCA and BMS (3.0 mm X 18 mm long Integrity stent) to mid LAD, BMS to the mid distal CX (4.5 X 16mm Veriflex stent), and BMS to the proximal CX (3.5 X 15 mm Integrity stent) @ [facility] Atherosclerotic heart disease of [place] coronary artery without angina pectoris (Chronic) 03/27/1993: RED to LAD (CABG X1 along with AVR, [facility]):06/28/2011 prior to PTCA and BMS to mid LAD, BMS to the mid distal CX, and BMS to the proximal CX @ [facility] History of left heart catheterization (Chronic) 03/27/1993 [facility] prior to CABG X1 and AVR; 06/28/2011 prior to PTCA and BMS to mid LAD, BMS to the mid distal CX, and BMS to the proximal CX @ [facility] History of aortic valve replacement (Chronic) 03/27/1993: RED to LAD and 23mm St[facility] Rachid Mechanical AVR placed for severe per Dr. Darrell Shaw, [facility] S/P CABG x 1 (Chronic) 03/27/1993: RED to LAD and 23mm St[facility] 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 HERNANDEZ Medical History: Medical History (Last Reviewed 04/07/18 @ 17:04 by Pancho Mantilla DO) Non-rheumatic tricuspid valve insufficiency (Chronic) I36.1 Secondary pulmonary arterial hypertension (Chronic) I27.21 Chronic systolic (congestive) heart failure (Chronic) I50.22 Ischemic cardiomyopathy (Chronic) I25.5 History of coronary artery stent placement (Chronic) Z95.5 06/28/2011 prior to PTCA and BMS (3.0 mm X 18 mm long Integrity stent) to mid LAD, BMS to the mid distal CX (4.5 X 16mm Veriflex stent), and BMS to the proximal CX (3.5 X 15 mm Integrity stent) @ [facility] Atherosclerotic heart disease of [place] coronary artery without angina pectoris (Chronic) I25.10 03/27/1993: RED to LAD (CABG X1 along with AVR, [facility]):06/28/2011 prior to PTCA and BMS to mid LAD, BMS to the mid distal CX, and BMS to the proximal CX @ [facility]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 HERNANDEZ Uncontrolled pain (Inactive) R52 Allergies No Known Allergies Allergy (Verified 04/04/18 12:51) Home Medications: Ambulatory Orders Medication Instructions Recorded Rosuvastatin Calcium [Crestor] 40 mg PO QHS 07/15/13 Ferrous Sulfate 325 mg PO BIDCM 09/13/15 Albuterol Sulfate [Proair 1 puff INHALATION Q4H PRN PRN 09/25/15 Respiclick] Cholecalciferol (VIT D3) [Vitamin 2,000 unit PO DAILY 09/25/15 D3] Nitroglycerin [Nitrostat] 0.4 mg SUBLINGUAL Q5M PRN #30 tab 09/26/15 Aspirin E.C. [Ecotrin] 81 mg PO DAILY@0800 06/24/16 Folic Acid 1 mg PO QHS 06/24/16 Ipratropium/Albuterol Sulfate 3 ml INHALATION Q4H PRN PRN #30 11/02/16 [Duoneb] ampul.neb Metoprolol Tartrate [Lopressor 12.5 mg PO BID 01/20/17 (beta zach)] Docusate Sodium [Colace] 200 mg PO BID PRN PRN cap 01/27/17 Budesonide/Formoterol 160/4.5 2 puff INHALATION BID 02/08/17 [Symbicort 160/4.5 Mcg Inhaler (SP)] Furosemide [Lasix] 40 mg PO DAILY 02/08/17 isosorbide mononitrate ER 30 mg 30 mg PO QAM 11/21/17 tablet,extended release 24 hr pregabalin 75 mg capsule 75 mg PO BID 11/21/17 pantoprazole 40 mg tablet,delayed 40 mg PO BID tab 01/02/18 release warfarin 5 mg tablet 5 mg PO FULLER tab 01/02/18 warfarin 7.5 mg tablet 7.5 mg PO MOTUWETHFRSA tab 01/02/18 Surgical History: Surgical History (Last Reviewed 04/07/18 @ 17:04 by Pancho Mantilla DO) History of left heart catheterization (Chronic) Z98.890 03/27/1993 [facility] prior to CABG X1 and AVR; 06/28/2011 prior to PTCA and BMS to mid LAD, BMS to the mid distal CX, and BMS to the proximal CX @ [facility] History of aortic valve replacement (Chronic) Z95.2 03/27/1993: RED to LAD and 23mm [facility] Rachid Mechanical AVR placed for severe per Dr. Darrell Shaw, [facility] S/P CABG x 1 (Chronic) Z95.1 03/27/1993: RED to LAD and 23mm [facility] Rachid Prosthetic AVR placed for severe per Dr. Darrell Shaw, [facility] Surgical History: coronary bypass surgery, - - Mechanical aortic valve replacement, back surgeries, RLE ankle surgery recently. Psychiatric History: No pertinent psych hx Smoking Status: Current every day smoker Tobacco Use: Cigarettes - *Family History Maternal Family History: Family History (Last Reviewed 04/07/18 @ 17:04 by Pancho Mantilla DO) Son CAD (coronary artery disease) Myocardial infarction Sudden cardiac Brother CAD (coronary artery disease) Sister CAD (coronary artery disease) History Items: Diabetes, Heart Disease, Hypertension Paternal Family History: Family History (Last Reviewed 04/07/18 @ 17:04 by Pancho Mantilla DO) Son CAD (coronary artery disease) Myocardial infarction Sudden cardiac Brother CAD (coronary artery disease) Sister CAD (coronary artery disease) History Items: Diabetes, Heart Disease, Hypertension Review of Systems Unable to obtain accurate/complete ROS d/t: Unable to obtain as the patient is groggy postoperatively. VTE Information - Inpt Only VTE Present on Admission: Yes VTE Pharm Prophylaxis ordered?: Yes - Physical Exam General: Confused, - - Afebrile HEENT: Atraumatic, Normocephalic Oral: Moist Mucosa, No Gingival or Mucosal Lesions/ Ulcerations Neck: No Nodes, Thyroid Normal Size and Texture Lungs: Clear to auscultation, Normal air movement, No rhonchi, No wheeze Cardiovascular: Regular rate, Regular Rhythm, Normal S1, Normal S2, No murmurs Abdomen: Bowel Sounds Present, Soft, Non Tender, Non-Distended, No Hepato- splenomegaly Musculoskeletal: - - Left foot and distal lower extremity are intact past, did not remove. Psych/Mental Status: Agitated Vital Signs Temp Pulse Resp BP Pulse Ox 36.2 C L 85 20 H 145/76 H 97 04/07/18 16:27 04/07/18 16:44 04/07/18 16:44 04/07/18 16:44 04/07/18 16:44 Oxygen Delivery Method Room Air Weight: 79.379 kg Body Mass Index (BMI) 25.1 Laboratory Tests Past 24 Hrs 04/07/18 04/07/18 12:45 12:45 PT 13.0 INR 1.0 Blood Type O POSITIVE Antibody Screen NEGATIVE Assessment/Plan All Active Problems (Last Reviewed 03/26/18 @ 18:28 by Pancho Mantilla DO) Closed left ankle fracture (Acute) Trimalleolar fracture of ankle, closed (Acute) Left ankle pain (Acute) Risk for falls (Acute) GI bleed (Resolved) SALVADOR (acute kidney injury) (Resolved) Acute exacerbation of chronic obstructive pulmonary disease (Resolved) Bradycardia (Resolved) COPD with acute exacerbation (Resolved) Gram-negative pneumonia (Resolved) History of colonoscopy (Resolved) History of endoscopy (Resolved) Hypotension (Resolved) Hypoxia (Resolved) Subconjunctival hematoma (Resolved) 1. Trimalleolar fracture * Status post ORIF today * Patient being admitted for further pain control * Patient did have some issues in regards to oversedation with some of the pain control earlier this month so we will be cautious in regards to administration. * Nonweightbearing * Physical and occupational therapy evaluation for further assessment in regards to eventual disposition once patient is a stable for discharge * Patient did have a nerve block performed in the PACU 2. Atrial fibrillation * Continue with Coumadin. Discussed with podiatry and okay to start as his INR will not be therapeutic for several days * Continue with metoprolol 3. CAD * hold ASA 4. DVT proph: LMWH until INR therapeutic Code Visit Inpatient E&M: 75708 Init Hosp L2
[2018-04-07] MEDS: Ferrous Sulfate 325 MG Tablet PO (20:13)
[2018-04-07] MEDS: oxyCODONE 5 MG Tablet 10 MG PO (20:14)
[2018-04-07] MEDS: Folic Acid 1 MG Tablet PO (22:38)
[2018-04-07] MEDS: Pregabalin 75 MG Capsule PO (22:38)
[2018-04-07] MEDS: Pantoprazole Sodium 40 MG Tablet PO (22:38)
[2018-04-07] MEDS: Metoprolol Tartrate 25 MG Tablet 12.5 MG PO (22:38)
[2018-04-07] MEDS: Atorvastatin Calcium 80 MG Tablet PO (22:38)
[2018-04-08] VITALS (9 sets, daily range): BP systolic 112–137; BP diastolic 52–62; PULSE 65–75; RESP 16–20; TEMP 36.7–37.3; O2SAT 90–99
[2018-04-08] MEDS: HYDROmorphone 1 MG/ML Syringe IV ×5 (01:41→22:52)
[2018-04-08] MEDS: oxyCODONE 5 MG Tablet 10 MG PO ×3 (05:02→17:21)
[2018-04-08] MEDS: Budesonide Respules 0.5 MG/2 ML AMPUL.NEB. INHALATION ×2 (06:43→19:28)
[2018-04-08] MEDS: Albuterol 2.5 MG/3 ML VIAL.NEB. INHALATION ×3 (06:43→19:28)
[2018-04-08 07:03] LABS: Absolute Lymphocyte Count 0.44 X10^3/ul (0.83-4.51); Absolute Neutrophil Count 3.8 X10^3/uL (2.0-7.7); Basophil# 0.01 X10^3/uL; Basophil% 0.2 % (0-1); Eosinophil# 0.05 X10^3/uL; Hematocrit 34.7 % (40-54); Hemoglobin 10.3 g/dl (13.0-16.5); International Normalized Ratio 1.1; Lymphocyte # 0.44 X10^3/ul (4.0); Mean Corp Hgb Conc 29.7 g/gl (32-36); Mean Corpuscular Hgb 30.3 pg (27.0-32.0); Mean Corpuscular Volume 102.1 fL (80-94); Mean Platelet Vol. 10.7 fl (6.2-12.0); Monocyte# 0.56 X10^3/uL; Monocyte% 11.5 % (0-10); Neutrophil # 3.82 X10^3/uL (2.7-7.7); Neutrophil % 78.1 % (47-70); Platelet Count 182 K/mm3 (150-450); Prothrombin Time (Protime)PT. 13.9 SECONDS (11.7-14.9); RBC Distribution Width CV 14.5 % (11.6-14.6); RBC Distribution Width SD 53.8 fl (35.1-43.9); White Blood Count 4.9 K/mm3 (4.4-11.0)
[2018-04-08 07:06] LABS: Differential Indicated SCAN CRITERIA MET; POSITIVE COUNT NO; POSITIVE DIFFERENTIAL YES; POSITIVE MORPHOLOGY NO
[2018-04-08 07:19] LABS: Differential Comment SCANNED
[2018-04-08 07:29] LABS: Anion Gap 7 (5-15); BUN 16 mg/dL (7-18); BUN/Creat Ratio 15.5 RATIO (10-20); Calcium,Total 8.6 mg/dL (8.5-10.1); Chloride 104 mmol/L (98-107); Creatinine, Serum 1.03 mg/dL (0.70-1.30); EST Glomerular Filtration Rate 74 mL/min (>60); Est Glom Filt Rate - Afr Amer 89 mL/min (>60); Estimated Creatinine Clearance 60.05 ml/min; Glucose 120 mg/dL (74-106); Potassium 4.1 mmol/L (3.5-5.1); Sodium Level 141 mmol/L (136-145)
--- NOTE | 2018-04-08 08:41 | PCM.PROGNOTE ---
Subjective: This 77 year old male was seen bedside POD #1 ORIF left trimalleolar ankle fracture. He denies fever, chill, nausea, vomiting, chest pain, shortness of breath, urinary retention, constipation, calf pain. His pain is moderate to severe. - Physical Exam General: Alert, Oriented x3, Cooperative Extremities: No cyanosis, Capillary Refill Less than 3 Seconds - All digits left foot, No Calf Tenderness - Negative Ibanez sign bilateral, Edema Skin: - - Dressing and posterior mold with sugar tong splint are clean dry and intact without strike through Musculoskeletal: No Tenderness to Palpation of Joints or Extremities, Muscle Wasting, - - Active range of motion of digits ?5 left Neurological: Sensory exam intact to light touch and pain Psych/Mental Status: Normal Affect, Appropriate Vital Signs Temp Pulse Resp BP Pulse Ox 98.8 F 67 18 137/60 H 99 04/08/18 07:17 04/08/18 07:17 04/08/18 07:17 04/08/18 07:17 04/08/18 07:17 Oxygen Flow Rate (L/min) 4 Oxygen Delivery Method Nasal Cannula Weight: 79.38 kg Body Mass Index (BMI) 25.1 Intake and Output for Last 24 Hours 04/06/18 04/07/18 04/08/18 23:59 23:59 23:59 Intake Total 1949 440 / 440 Output Total 1000 / 1000 Balance 1949 -560 / -560 Laboratory Tests Past 24 Hrs 04/07/18 04/07/18 04/08/18 12:45 12:45 06:24 WBC 4.9 RBC 3.40 L Hgb 10.3 L Hct 34.7 L MCV 102.1 H MCH 30.3 MCHC 29.7 L RDW 14.5 RDW Differential 53.8 H Plt Count 182 MPV 10.7 Immature Gran % (Auto) 0.200 Neut % (Auto) 78.1 H Lymph % (Auto) 9.0 L [place] % (Auto) 11.5 H Eos % (Auto) 1.0 Baso % (Auto) 0.2 Absolute Neuts (auto) 3.8 Absolute Lymphs (auto) 0.44 L Total Counted Not Reportable Differential Comment SCANNED PT 13.0 INR 1.0 Sodium Potassium Chloride Carbon Dioxide Anion Gap BUN Creatinine Estim Creat Clear Calc Est GFR (MDRD) Af Amer Est GFR (MDRD) Non-Af BUN/Creatinine Ratio Glucose Calcium Blood Type O POSITIVE Antibody Screen NEGATIVE 04/08/18 04/08/18 06:24 06:24 WBC RBC Hgb Hct MCV MCH MCHC RDW RDW Differential Plt Count MPV Immature Gran % (Auto) Neut % (Auto) Lymph % (Auto) [place] % (Auto) Eos % (Auto) Baso % (Auto) Absolute Neuts (auto) Absolute Lymphs (auto) Total Counted Differential Comment PT 13.9 INR 1.1 Sodium 141 Potassium 4.1 Chloride 104 Carbon Dioxide 30.0 Anion Gap 7 BUN 16 Creatinine 1.03 Estim Creat Clear Calc 60.05 Est GFR (MDRD) Af Amer 89 Est GFR (MDRD) Non-Af 74 BUN/Creatinine Ratio 15.5 Glucose 120 H Calcium 8.6 Blood Type Antibody Screen Medical Necessity - Tobacco Use Smoking Status: Current every day smoker Tobacco Use: Cigarettes Assessment/Plan All Active Problems (Last Reviewed 04/07/18 @ 17:04 by Pancho Mantilla DO) Closed left ankle fracture (Acute) Trimalleolar fracture of ankle, closed (Acute) Left ankle pain (Acute) Risk for falls (Acute) GI bleed (Resolved) SALVADOR (acute kidney injury) (Resolved) Acute exacerbation of chronic obstructive pulmonary disease (Resolved) Bradycardia (Resolved) COPD with acute exacerbation (Resolved) Gram-negative pneumonia (Resolved) History of colonoscopy (Resolved) History of endoscopy (Resolved) Hypotension (Resolved) Hypoxia (Resolved) Subconjunctival hematoma (Resolved) POD # 1 ORIF left trimalleolus ankle fracture Left lower extremity pain Fall risk and gait impairment On chronic anticoagulation medication secondary to mechanical valve and atrial fibrillation Other comorbidities are noted I reviewed and discussed his case this morning. It appears as regional anesthetic block is wearing off. To continue on IV and oral pain medication. To continue to ice and elevate for additional pain and inflammation management. I recommend he hangs his heel over the pillows while in bed to take pressure off of the surgical limb. He will continue work with PT and OT on safe gait and transfers and will likely be transferred to a intermediate facility after his pain is better controlled and his initial assessment is complete. It is noted that he does live at home alone and he has family that lives nearby in the neighborhood. His postoperative x-rays were reviewed with hardware in place in fracture reduction maintained. No acute injuries are noted. Smoking cessation was encouraged and he continues on a nicotine patch at this time. The anticipated healing time and management were reviewed improving and today. I answered all his questions. This case was discussed with hospitalist this morning. I will continue to follow him close while in house. Mary Alice Villarreal DPM, [facility] [phone]
--- NOTE | 2018-04-08 09:21 | PCM.PN.HOSP ---
Subjective: Still with pain in Left ankle. Vitals/I&O's: Vital Signs Temp Pulse Resp BP Pulse Ox 37.1 C 67 18 137/60 H 99 04/08/18 07:17 04/08/18 07:17 04/08/18 07:17 04/08/18 07:17 04/08/18 07:17 Oxygen Flow Rate (L/min) 3 Oxygen Delivery Method Nasal Cannula Weight: 79.38 kg Body Mass Index (BMI) 25.1 Intake and Output for Last 24 Hours 04/06/18 04/07/18 04/08/18 23:59 23:59 23:59 Intake Total 1949 440 / 440 Output Total 1000 / 1000 Balance 1949 -560 / -560 General: - - more alert today, but groggy. afebrile. HEENT: Atraumatic, Normocephalic Oral: Moist Mucosa, No Gingival or Mucosal Lesions/ Ulcerations Neck: No Nodes, Thyroid Normal Size and Texture Lungs: Clear to auscultation, Normal air movement, No rhonchi, No wheeze Cardiovascular: Regular rate, Regular Rhythm, Normal S1, Normal S2, - - aortic click Abdomen: Bowel Sounds Present, Soft, Non Tender, Non-Distended Extremities: No edema, No Calf Tenderness, - - LLE in cast Psych/Mental Status: Anxious Laboratory Results 04/07/18 12:45: PT 13.0, INR 1.0 04/07/18 12:45: Blood Type O POSITIVE, Antibody Screen NEGATIVE 04/08/18 06:24: WBC 4.9, RBC 3.40 L, Hgb 10.3 L, Hct 34.7 L, MCV 102.1 H, MCH 30.3, MCHC 29.7 L, RDW 14.5, RDW Differential 53.8 H, Plt Count 182, MPV 10.7, Immature Gran % (Auto) 0.200, Neut % (Auto) 78.1 H, Lymph % (Auto) 9.0 L, [place] % (Auto) 11.5 H, Eos % (Auto) 1.0, Baso % (Auto) 0.2, Absolute Neuts (auto) 3.8, Absolute Lymphs (auto) 0.44 L, Total Counted Not Reportable, Differential Comment SCANNED 04/08/18 06:24: Sodium 141, Potassium 4.1, Chloride 104, Carbon Dioxide 30.0, Anion Gap 7, BUN 16, Creatinine 1.03, Estim Creat Clear Calc 60.05, Est GFR (MDRD) Af Amer 89, Est GFR (MDRD) Non-Af 74, BUN/Creatinine Ratio 15.5, Glucose 120 H, Calcium 8.6 04/08/18 06:24: PT 13.9, INR 1.1 Current Medications Albuterol Sulfate (Ventolin Aerosols) 2.5 mg INHALATION Q4H PRN PRN PRN Reason: Wheezing Albuterol Sulfate (Ventolin Aerosols) 2.5 mg INHALATION Q6HWA.RT [facility] Last Admin: 04/08/18 06:43 Dose: 2.5 mg Albuterol/Ipratropium (Duoneb) 3 ml INHALATION Q4H PRN PRN PRN Reason: sob/wheezing Atorvastatin Calcium (Lipitor) 80 mg PO QHS [facility] Last Admin: 04/07/18 22:38 Dose: 80 mg Budesonide (Pulmicort Aerosol) 0.5 mg INHALATION BID.RT [facility] Last Admin: 04/08/18 06:43 Dose: 0.5 mg Cholecalciferol (Vitamin D) 2,000 unit PO DAILY [facility] Docusate Sodium (Colace) 200 mg PO BID PRN PRN PRN Reason: Constipation Enoxaparin Sodium (Lovenox) 40 mg SC DAILY@1000 [facility]ous [facility] ([facility]) [facility] Last Admin: 04/07/18 20:13 Dose: 325 mg Folic Acid (Folic Acid) 1 mg PO QHS [facility] Last Admin: 04/07/18 22:38 Dose: 1 mg Furosemide (Lasix) 40 mg PO DAILY [facility] Hydromorphone HCl (Dilaudid Inj) 1 mg IV Q3H PRN PRN PRN Reason: SEVERE PAIN (6-10/10) Last Admin: 04/08/18 07:21 Dose: 1 mg Influenza Virus Vaccine Quadrival (Fluarix/Fluzone) 0.5 ml IM .ONCE ONE Stop: 04/08/18 10:01 Isosorbide Mononitrate (Imdur) 30 mg PO QAM [facility] Magnesium Hydroxide (Milk Of Magnesia) 30 ml PO DAILY PRN PRN PRN Reason: Constipation Metoprolol Tartrate (Lopressor (Beta Martha)) 12.5 mg PO BID [facility] Last Admin: 04/07/18 22:38 Dose: 12.5 mg Nicotine (Nicoderm Cq (Pbkc)) 14 mg TRANSDERM. DAILY [facility] Last Admin: 04/07/18 19:22 Dose: 14 mg Nitroglycerin (Nitrostat) 0.4 mg SUBLINGUAL Q5M PRN PRN Reason: Chest Pain Oxycodone HCl (Oxyir) 10 mg PO Q6H PRN PRN PRN Reason: SEVERE PAIN (6-10/10) Last Admin: 04/08/18 05:02 Dose: 10 mg Pantoprazole Sodium (Protonix) 40 mg PO BID [facility] Last Admin: 04/07/18 22:38 Dose: 40 mg Pregabalin (Lyrica) 75 mg PO BID [facility] Last Admin: 04/07/18 22:38 Dose: 75 mg Sodium Chloride () 5 - 30 ml IV UD PRN PRN Reason: SALINE FLUSH Warfarin Sodium (Coumadin (Pbkc)) 5 mg PO Anand@1700 [facility] Warfarin Sodium (Coumadin (Pbkc)) 7.5 mg PO MoTuWeThFrSa@1700 [facility] Medical Necessity - Tobacco Use Smoking Status: Current every day smoker Tobacco Use: Cigarettes Assessment/Plan All Active Problems (Last Reviewed 04/07/18 @ 17:04 by Pancho Mantilla DO) Closed left ankle fracture (Acute) Trimalleolar fracture of ankle, closed (Acute) Left ankle pain (Acute) Risk for falls (Acute) GI bleed (Resolved) SALVADOR (acute kidney injury) (Resolved) Acute exacerbation of chronic obstructive pulmonary disease (Resolved) Bradycardia (Resolved) COPD with acute exacerbation (Resolved) Gram-negative pneumonia (Resolved) History of colonoscopy (Resolved) History of endoscopy (Resolved) Hypotension (Resolved) Hypoxia (Resolved) Subconjunctival hematoma (Resolved) 1. Trimalleolar fracture Status post ORIF today Patient being admitted for further pain control Patient did have some issues in regards to oversedation with some of the pain control earlier this month so we will be cautious in regards to administration. Nonweightbearing to LLE Physical and occupational therapy evaluation for further assessment in regards to eventual disposition once patient is a stable for discharge Patient did have a nerve block performed in the PACU 2. Atrial fibrillation Continue with Coumadin. Discussed with podiatry and okay to start as his INR will not be therapeutic for several days Continue with metoprolol 3. Mechanical aortic valve DW Dr. Villarreal, would prefer he be on heparin gtt for now. Likely upon discharge can be changed to lovenox, if needed. Goal INR is 2.5-3.5 4. CAD hold ASA 5. DVT proph: anticoagulated. Code Visit Inpatient E&M: 78818 Subs Hosp L2
--- NOTE | 2018-04-08 09:24 | PN_ITS ---
Subjective: Still with pain in Left ankle. Vitals/I&O's: Vital Signs Temp Pulse Resp BP Pulse Ox 37.1 C 67 18 137/60 H 99 04/08/18 07:17 04/08/18 07:17 04/08/18 07:17 04/08/18 07:17 04/08/18 07:17 Oxygen Flow Rate (L/min) 3 Oxygen Delivery Method Nasal Cannula Weight: 79.38 kg Body Mass Index (BMI) 25.1 Intake and Output for Last 24 Hours 04/06/18 04/07/18 04/08/18 23:59 23:59 23:59 Intake Total 1949 440 / 440 Output Total 1000 / 1000 Balance 1949 -560 / -560 General: - - more alert today, but groggy. afebrile. HEENT: Atraumatic, Normocephalic Oral: Moist Mucosa, No Gingival or Mucosal Lesions/ Ulcerations Neck: No Nodes, Thyroid Normal Size and Texture Lungs: Clear to auscultation, Normal air movement, No rhonchi, No wheeze Cardiovascular: Regular rate, Regular Rhythm, Normal S1, Normal S2, - - aortic click Abdomen: Bowel Sounds Present, Soft, Non Tender, Non-Distended Extremities: No edema, No Calf Tenderness, - - LLE in cast Psych/Mental Status: Anxious Laboratory Results 04/07/18 12:45: PT 13.0, INR 1.0 04/07/18 12:45: Blood Type O POSITIVE, Antibody Screen NEGATIVE 04/08/18 06:24: WBC 4.9, RBC 3.40 L, Hgb 10.3 L, Hct 34.7 L, MCV 102.1 H, MCH 30.3, MCHC 29.7 L, RDW 14.5, RDW Differential 53.8 H, Plt Count 182, MPV 10.7, Immature Gran % (Auto) 0.200, Neut % (Auto) 78.1 H, Lymph % (Auto) 9.0 L, [place] % (Auto) 11.5 H, Eos % (Auto) 1.0, Baso % (Auto) 0.2, Absolute Neuts (auto) 3.8 , Absolute Lymphs (auto) 0.44 L, Total Counted Not Reportable, Differential Comment SCANNED 04/08/18 06:24: Sodium 141, Potassium 4.1, Chloride 104, Carbon Dioxide 30.0, Anion Gap 7, BUN 16, Creatinine 1.03, Estim Creat Clear Calc 60.05, Est GFR ( MDRD) Af Amer 89, Est GFR (MDRD) Non-Af 74, BUN/Creatinine Ratio 15.5, Glucose 120 H, Calcium 8.6 04/08/18 06:24: PT 13.9, INR 1.1 Current Medications Albuterol Sulfate (Ventolin Aerosols) 2.5 mg INHALATION Q4H PRN PRN PRN Reason: Wheezing Albuterol Sulfate (Ventolin Aerosols) 2.5 mg INHALATION Q6HWA.RT [facility] Last Admin: 04/08/18 06:43 Dose: 2.5 mg Albuterol/Ipratropium (Duoneb) 3 ml INHALATION Q4H PRN PRN PRN Reason: sob/wheezing Atorvastatin Calcium (Lipitor) 80 mg PO QHS [facility] Last Admin: 04/07/18 22:38 Dose: 80 mg Budesonide (Pulmicort Aerosol) 0.5 mg INHALATION BID.RT [facility] Last Admin: 04/08/18 06:43 Dose: 0.5 mg Cholecalciferol (Vitamin D) 2,000 unit PO DAILY [facility] Docusate Sodium (Colace) 200 mg PO BID PRN PRN PRN Reason: Constipation Enoxaparin Sodium (Lovenox) 40 mg SC DAILY@1000 [facility] Last Admin: 04/07/18 20:13 Dose: 325 mg Folic Acid (Folic Acid) 1 mg PO QHS [facility] Last Admin: 04/07/18 22:38 Dose: 1 mg Furosemide (Lasix) 40 mg PO DAILY [facility] Hydromorphone HCl (Dilaudid Inj) 1 mg IV Q3H PRN PRN PRN Reason: SEVERE PAIN (6-10/10) Last Admin: 04/08/18 07:21 Dose: 1 mg Influenza Virus Vaccine Quadrival (Fluarix/Fluzone) 0.5 ml IM .ONCE ONE Stop: 04/08/18 10:01 Isosorbide Mononitrate (Imdur) 30 mg PO QAM [facility] Magnesium Hydroxide (Milk Of Magnesia) 30 ml PO DAILY PRN PRN PRN Reason: Constipation Metoprolol Tartrate (Lopressor (Beta Martha)) 12.5 mg PO BID [facility] Last Admin: 04/07/18 22:38 Dose: 12.5 mg Nicotine (Nicoderm Cq (Pbkc)) 14 mg TRANSDERM. DAILY [facility] Last Admin: 04/07/18 19:22 Dose: 14 mg Nitroglycerin (Nitrostat) 0.4 mg SUBLINGUAL Q5M PRN PRN Reason: Chest Pain Oxycodone HCl (Oxyir) 10 mg PO Q6H PRN PRN PRN Reason: SEVERE PAIN (6-10/10) Last Admin: 04/08/18 05:02 Dose: 10 mg Pantoprazole Sodium (Protonix) 40 mg PO BID [facility] Last Admin: 04/07/18 22:38 Dose: 40 mg Pregabalin (Lyrica) 75 mg PO BID [facility] Last Admin: 04/07/18 22:38 Dose: 75 mg Sodium Chloride () 5 - 30 ml IV UD PRN PRN Reason: SALINE FLUSH Warfarin Sodium (Coumadin (Pbkc)) 5 mg PO Anand@1700 [facility] Warfarin Sodium (Coumadin (Pbkc)) 7.5 mg PO MoTuWeThFrSa@1700 [facility] Medical Necessity - Tobacco Use Smoking Status: Current every day smoker Tobacco Use: Cigarettes Assessment/Plan All Active Problems (Last Reviewed 04/07/18 @ 17:04 by Pancho Mantilla DO) Closed left ankle fracture (Acute) Trimalleolar fracture of ankle, closed (Acute) Left ankle pain (Acute) Risk for falls (Acute) GI bleed (Resolved) SALVADOR (acute kidney injury) (Resolved) Acute exacerbation of chronic obstructive pulmonary disease (Resolved) Bradycardia (Resolved) COPD with acute exacerbation (Resolved) Gram-negative pneumonia (Resolved) History of colonoscopy (Resolved) History of endoscopy (Resolved) Hypotension (Resolved) Hypoxia (Resolved) Subconjunctival hematoma (Resolved) 1. Trimalleolar fracture * Status post ORIF today * Patient being admitted for further pain control * Patient did have some issues in regards to oversedation with some of the pain control earlier this month so we will be cautious in regards to administration. * Nonweightbearing to LLE * Physical and occupational therapy evaluation for further assessment in regards to eventual disposition once patient is a stable for discharge * Patient did have a nerve block performed in the PACU 2. Atrial fibrillation * Continue with Coumadin. Discussed with podiatry and okay to start as his INR will not be therapeutic for several days * Continue with metoprolol 3. Mechanical aortic valve * DW Dr. Villarreal, would prefer he be on heparin gtt for now. Likely upon discharge can be changed to lovenox, if needed. * Goal INR is 2.5-3.5 4. CAD * hold ASA 5. DVT proph: anticoagulated. Code Visit Inpatient E&M: 10812 Subs Hosp L2
[2018-04-08] MEDS: Isosorbide Mononitrate 30 MG Tablet PO (10:25)
[2018-04-08] MEDS: Furosemide 40 MG Tablet PO (10:25)
[2018-04-08] MEDS: Pantoprazole Sodium 40 MG Tablet PO ×2 (10:25→22:52)
[2018-04-08] MEDS: Metoprolol Tartrate 25 MG Tablet 12.5 MG PO ×2 (10:26→22:51)
[2018-04-08] MEDS: Ferrous Sulfate 325 MG Tablet PO ×2 (10:26→17:19)
[2018-04-08 10:33] LABS: Partial Thromboplast Time 32.9 Seconds (24.1-36.2)
[2018-04-08] MEDS: Docusate Sodium 100 MG Capsule 200 MG PO (10:37)
[2018-04-08] MEDS: Pregabalin 75 MG Capsule PO ×2 (10:37→22:52)
[2018-04-08] MEDS: HEPARIN/D5w 25,000 UNITS 25,000 UNITS/250 ML IV.SOLN. 11 UNITS IV (12:23)
[2018-04-08] MEDS: 0.9% NaCl Peripheral Flush Adult/Peds IV ×4 (12:34→22:52)
--- NOTE | 2018-04-08 12:47 | CASEMGMT ---
Social Work MS3 Reason for Intervention: Assess for home going needs. Reason for admission: Patient fell and broke an ankle on 03-26-18, has been at home since with family support, awaiting surgical intervention. Summary: Housing: Lives alone, one story home, one step to enter. Self Care: Was independent prior to fall. Since fall has been using home adaptive equipment to get around the home. Patient's daughter Emily has been preparing meals, setting up medications, grocery shopping, cleaning and doing the laundry. Adaptive Equipment: using manual wheelchair, crutches when transferring, and rosa maria also has a cane and rollator walker. Patient has a medical alert, provided by the [place]. Patient reports Emily is working with the [place] for possible ramp installation into the home. Support System: daughter Emily lives 4 doors down and a niece lives across the street. Patient reports to feel support system is adequate at this time. Agency involvement: Uses the [employer]. Has used [facility] in the past and reports was happy wit this service. Pharmacy: [facility] in [place]. Transportation: normally independent, now daughter assisting. Assessment: Patient states intent to return home as has been managing at home with broken ankle as before the surgery, though patient has not yet walked with therapy yet today. Patient reports belief that will be able to manage again at home as before. [facility], and even nursing if needed. Talked with patient about potential short term SNF, but at this point is not really interested in this. Patient pleasant, joking, talkative, alert, oriented, good eye contact during social work visit. Plan: If patient is discharged over the weekend, then staff will work on setting up HHC on Tuesday. If patient remains in the hospital through the weekend, ALIVIA dish network installer CM will follow up to ensure that patient still thinking HHC, or whether would consider or need SNF. At this point anticipating Home with skilled HHC. -ZAYRA Nava, LOCOMOTIVE BOILERMAKER
[2018-04-08 18:53] LABS: Partial Thromboplast Time 95.4 Seconds (24.1-36.2)
--- NOTE | 2018-04-08 18:57 | NURSING ---
PTT 95.4. PER PROTOCOL, HEPARIN DRIP STOPPED AT THIS TIME, TO RESUME AT 2000 WITH A RATE REDUCED TO 9ML/HR. WILL ORDER PTT TO BE DRAWN AT MIDNIGHT, BEING 4 HOURS AFTER DRIP IS TO BE RESUMED.
[2018-04-08] MEDS: Folic Acid 1 MG Tablet PO (22:51)
[2018-04-08] MEDS: Atorvastatin Calcium 80 MG Tablet PO (22:51)
[2018-04-09] VITALS (9 sets, daily range): BP systolic 110–127; BP diastolic 52–61; PULSE 53–70; RESP 16–18; TEMP 36.7–37.4; O2SAT 93–96
[2018-04-09 00:52] LABS: Partial Thromboplast Time 83.7 Seconds (24.1-36.2)
[2018-04-09] MEDS: oxyCODONE 5 MG Tablet 10 MG PO (02:25)
[2018-04-09] MEDS: HYDROmorphone 1 MG/ML Syringe IV (06:45)
[2018-04-09] MEDS: 0.9% NaCl Peripheral Flush Adult/Peds IV ×2 (06:46→16:27)
[2018-04-09] MEDS: Albuterol 2.5 MG/3 ML VIAL.NEB. INHALATION ×3 (07:33→19:04)
[2018-04-09] MEDS: Budesonide Respules 0.5 MG/2 ML AMPUL.NEB. INHALATION ×2 (07:33→19:05)
[2018-04-09 08:31] LABS: Absolute Lymphocyte Count 0.76 X10^3/ul (0.83-4.51); Absolute Neutrophil Count 2.4 X10^3/uL (2.0-7.7); Basophil# 0.02 X10^3/uL; Basophil% 0.5 % (0-1); Eosinophil# 0.08 X10^3/uL; Eosinophils% 2.1 % (0-5); Hematocrit 31.9 % (40-54); Hemoglobin 9.5 g/dl (13.0-16.5); Lymphocyte # 0.76 X10^3/ul (4.0); Lymphocyte % 20.3 % (19-41); Mean Corp Hgb Conc 29.8 g/gl (32-36); Mean Corpuscular Hgb 30.3 pg (27.0-32.0); Mean Corpuscular Volume 101.6 fL (80-94); Mean Platelet Vol. 10.7 fl (6.2-12.0); Monocyte# 0.45 X10^3/uL; Neutrophil # 2.43 X10^3/uL (2.7-7.7); Neutrophil % 64.8 % (47-70); Platelet Count 173 K/mm3 (150-450); RBC Distribution Width CV 14.3 % (11.6-14.6); RBC Distribution Width SD 53.4 fl (35.1-43.9); Red Blood Count 3.14 M/mm3 (4.6-6.2); White Blood Count 3.8 K/mm3 (4.4-11.0)
[2018-04-09 08:32] LABS: International Normalized Ratio 1.1; POSITIVE COUNT NO; POSITIVE DIFFERENTIAL NO; POSITIVE MORPHOLOGY NO; Prothrombin Time (Protime)PT. 14.6 SECONDS (11.7-14.9)
[2018-04-09 08:35] LABS: Partial Thromboplast Time 83.2 Seconds (24.1-36.2)
[2018-04-09] MEDS: Pantoprazole Sodium 40 MG Tablet PO ×2 (08:50→22:50)
[2018-04-09] MEDS: Ferrous Sulfate 325 MG Tablet PO ×2 (08:50→18:20)
[2018-04-09] MEDS: Furosemide 40 MG Tablet PO (08:51)
[2018-04-09] MEDS: Isosorbide Mononitrate 30 MG Tablet PO (08:51)
[2018-04-09] MEDS: Metoprolol Tartrate 25 MG Tablet 12.5 MG PO ×2 (08:51→22:48)
--- NOTE | 2018-04-09 09:42 | PCM.PROGNOTE ---
Subjective: This 77-year-old male was seen postoperative day #2 left trimalleolar ankle fracture open reduction internal fixation. He is eager to return home. He denies fever, chill, nausea, vomiting, chest pain, shortness of breath, calf pain. He rates his pain as a 5 out of 10 in relates he feels much better compared to yesterday. He has been elevating. - Physical Exam General: Alert, Oriented x3, Cooperative Extremities: No edema, Capillary Refill Less than 3 Seconds - all digits left foot, No Calf Tenderness - Negative Ibanez sign bilateral, Diminished Peripheral Pulses Skin: - - The dressing and splint to the left lower extremity remain clean dry and intact without stricture Musculoskeletal: - - Rectus left ankle. Compartments remain soft on palpation left lower extremity Neurological: Sensory exam intact to light touch and pain - To digits of the left foot Psych/Mental Status: Normal Affect, Appropriate Vital Signs Temp Pulse Resp BP Pulse Ox 98.6 F 64 16 127/52 H 96 04/09/18 08:47 04/09/18 08:51 04/09/18 08:47 04/09/18 08:51 04/09/18 08:47 Oxygen Flow Rate (L/min) 3 Oxygen Delivery Method Nasal Cannula Weight: 79.4 kg Body Mass Index (BMI) 25.1 Intake and Output for Last 24 Hours 04/07/18 04/08/18 04/09/18 23:59 23:59 23:59 Intake Total 1949 1093 / 1093 444.6 / 444.6 Output Total 1625 / 1625 550 / 550 Balance 1949 -532 / -532 -105.4 / -105.4 Laboratory Tests Past 24 Hrs 04/08/18 04/08/18 04/09/18 06:24 18:30 00:06 WBC RBC Hgb Hct MCV MCH MCHC RDW RDW Differential Plt Count MPV Immature Gran % (Auto) Neut % (Auto) Lymph % (Auto) [place] % (Auto) Eos % (Auto) Baso % (Auto) Absolute Neuts (auto) Absolute Lymphs (auto) Total Counted PT INR APTT 32.9 95.4 H* 83.7 H 04/09/18 04/09/18 04/09/18 07:38 07:38 07:38 WBC 3.8 L RBC 3.14 L Hgb 9.5 L Hct 31.9 L MCV 101.6 H MCH 30.3 MCHC 29.8 L RDW 14.3 RDW Differential 53.4 H Plt Count 173 MPV 10.7 Immature Gran % (Auto) 0.300 Neut % (Auto) 64.8 Lymph % (Auto) 20.3 [place] % (Auto) 12.0 H Eos % (Auto) 2.1 Baso % (Auto) 0.5 Absolute Neuts (auto) 2.4 Absolute Lymphs (auto) 0.76 L Total Counted Not Reportable PT 14.6 INR 1.1 APTT 83.2 H Medical Necessity - Tobacco Use Smoking Status: Current every day smoker Tobacco Use: Cigarettes Assessment/Plan All Active Problems (Last Reviewed 04/07/18 @ 17:04 by Pancho Mantilla DO) Closed left ankle fracture (Acute) Trimalleolar fracture of ankle, closed (Acute) Left ankle pain (Acute) Risk for falls (Acute) GI bleed (Resolved) SALVADOR (acute kidney injury) (Resolved) Acute exacerbation of chronic obstructive pulmonary disease (Resolved) Bradycardia (Resolved) COPD with acute exacerbation (Resolved) Gram-negative pneumonia (Resolved) History of colonoscopy (Resolved) History of endoscopy (Resolved) Hypotension (Resolved) Hypoxia (Resolved) Subconjunctival hematoma (Resolved) POD # 2 ORIF left trimalleolus ankle fracture Left lower extremity pain Fall risk and gait impairment On chronic anticoagulation medication secondary to mechanical valve and atrial fibrillation Other comorbidities are noted I reviewed and discussed his case this morning. To continue on IV and oral pain medication. He will progress off of IV pain medication prior to home discharge. To continue to ice and elevate for additional pain and inflammation management. I recommend he hangs his heel over the pillows while in bed to take pressure off of the surgical limb. He will continue work with PT and OT on safe gait and transfers and will likely be transferred to a prison facility versus home with home health care assistance. consulting services manager notes were reviewed. I recommend he continues with a strict nonweightbearing status to left lower extremity. He is on heparin at this time for anticoagulation due to his mechanical valve. Upon discharge from the hospital he will be transitioned to a therapeutic twice daily Lovenox dose while he achieves a therapeutic INR range on Coumadin (goal 2.5-3). I answered all his questions. He is okay to discharge from a surgical standpoint at this time. To follow-up with Dr. [facility] within the next week. Please do not hesitate to call if you have any questions. Mary Alice Villarreal DPM, FACFAS [facility] [phone]
--- NOTE | 2018-04-09 09:59 | PCM.DC.POD ---
Discharge Activity: Use Walker, Use Crutches, - - shower with assistance to remain non weight bearing to left. Use shower bag to surgical limb to keep dry Weight Bearing Status: No weight bearing Keep extremity elevated above heart level: Left Leg Call your doctor if your incision/area has: Continuous Slow Oozing, Sudden Increased Bleeding, Increased Pain/ Swelling, Increased Redness, Foul Smelling Discharge, Swelling at the incision site Call your doctor if you observe: Fever of 101 or Higher, Numbness or Tingling, Calf discomfort, Uncontrolled pain Cleanse incision/area with: Keep Dressing Clean & Dry Allergies/Adverse Reactions: Allergies No Known Allergies Allergy (Verified 04/04/18 12:51) Medications to take at Discharge Rosuvastatin Calcium [Crestor] 40 mg PO QHS 07/15/13 Ferrous Sulfate 325 mg PO BIDCM 09/13/15 Albuterol Sulfate [Proair Respiclick] 1 puff INHALATION Q4H PRN PRN 09/25/15 Cholecalciferol (VIT D3) [Vitamin D3] 2,000 unit PO DAILY 09/25/15 Nitroglycerin [Nitrostat] 0.4 mg SUBLINGUAL Q5M PRN #30 tab 09/26/15 Aspirin E.C. [Ecotrin] 81 mg PO DAILY@0800 06/24/16 Folic Acid 1 mg PO QHS 06/24/16 Ipratropium/Albuterol Sulfate [Duoneb] 3 ml INHALATION Q4H PRN PRN #30 ampul.neb 11/02/16 Metoprolol Tartrate [Lopressor (beta zach)] 12.5 mg PO BID 01/20/17 Docusate Sodium [Colace] 200 mg PO BID PRN PRN cap 01/27/17 Budesonide/Formoterol 160/4.5 [Symbicort 160/4.5 Mcg Inhaler (SP)] 2 puff INHALATION BID 02/08/17 Furosemide [Lasix] 40 mg PO DAILY 02/08/17 isosorbide mononitrate ER 30 mg tablet,extended release 24 hr 30 mg PO QAM 11/21/17 pregabalin 75 mg capsule 75 mg PO BID 11/21/17 pantoprazole 40 mg tablet,delayed release 40 mg PO BID tab 01/02/18 warfarin 5 mg tablet 5 mg PO FULLER tab 06/18/18 warfarin 7.5 mg tablet 7.5 mg PO MOTUWETHFRSA tab 01/02/18 Primary Care Physician: Guillermo Pritchard MD [Primary Care Provider] - Test Results: Test results from this visit will be discussed in further detail at your follow-up appointment, if applicable. Please Follow Up With: Mary Alice Villarreal DPM When: within 1 wk [facility]; [phone]
[2018-04-09] MEDS: Pregabalin 75 MG Capsule PO ×2 (10:34→22:50)
[2018-04-09] MEDS: HEPARIN/D5w 25,000 UNITS 25,000 UNITS/250 ML IV.SOLN. 7 UNITS IV (14:44)
[2018-04-09 14:53] LABS: Partial Thromboplast Time 65.6 Seconds (24.1-36.2)
--- NOTE | 2018-04-09 15:39 | PCM.PN.HOSP ---
Subjective: Patient was seen and examined. Patient has Left ankle trimalleolar fracture status post ORIF Patient also has subtherapeutic INR. Has biomechanical aortic valve replacement in . On 2-3 L of oxygen. Vitals/I&O's: Vital Signs Temp Pulse Resp BP Pulse Ox 98.6 F 55 L 16 127/52 H 96 04/09/18 08:47 04/09/18 13:20 04/09/18 13:20 04/09/18 08:51 04/09/18 08:47 Oxygen Flow Rate (L/min) 3 Oxygen Delivery Method Nasal Cannula Weight: 175 lb 0.752 oz Body Mass Index (BMI) 25.1 Intake and Output for Last 24 Hours 04/07/18 04/08/18 04/09/18 23:59 23:59 23:59 Intake Total 1949 1093 / 1093 1094.6 / 1094.6 Output Total 1625 / 1625 1050 / 1050 Balance 1949 -532 / -532 44.6 / 44.6 General: Alert, Oriented x3, Cooperative HEENT: Atraumatic, PERRLA, EOMI, Normocephalic Neck: Supple, No JVD, Negative Carotid Bruits Lungs: No rhonchi, No wheeze, Diminished Cardiovascular: Regular rate, Normal S1, Normal S2, - - Mechanical aortic valve sound Abdomen: Bowel Sounds Present, Soft, Non Tender, Non-Distended Extremities: Capillary Refill Less than 3 Seconds, Edema Skin: No rashes, No breakdown Musculoskeletal: Arthritic Changes, - - Left below-knee cast Neurological: Cranial nerves II-XII grossly intact Psych/Mental Status: Normal Affect, Appropriate Laboratory Results 04/08/18 18:30: APTT 95.4 H* 04/09/18 00:06: APTT 83.7 H 04/09/18 07:38: PT 14.6, INR 1.1 04/09/18 07:38: WBC 3.8 L, RBC 3.14 L, Hgb 9.5 L, Hct 31.9 L, MCV 101.6 H, MCH 30.3, MCHC 29.8 L, RDW 14.3, RDW Differential 53.4 H, Plt Count 173, MPV 10.7, Immature Gran % (Auto) 0.300, Neut % (Auto) 64.8, Lymph % (Auto) 20.3, [place] % (Auto) 12.0 H, Eos % (Auto) 2.1, Baso % (Auto) 0.5, Absolute Neuts (auto) 2.4, Absolute Lymphs (auto) 0.76 L, Total Counted Not Reportable 04/09/18 07:38: APTT 83.2 H 04/09/18 14:36: APTT 65.6 H Current Medications Albuterol Sulfate (Ventolin Aerosols) 2.5 mg INHALATION Q4H PRN PRN PRN Reason: Wheezing Albuterol Sulfate (Ventolin Aerosols) 2.5 mg INHALATION Q6HWA.RT [facility] Last Admin: 04/09/18 13:20 Dose: 2.5 mg Albuterol/Ipratropium (Duoneb) 3 ml INHALATION Q4H PRN PRN PRN Reason: sob/wheezing Atorvastatin Calcium (Lipitor) 80 mg PO QHS [facility] Last Admin: 04/08/18 22:51 Dose: 80 mg Budesonide (Pulmicort Aerosol) 0.5 mg INHALATION BID.RT [facility] Last Admin: 04/09/18 07:33 Dose: 0.5 mg Cholecalciferol (Vitamin D) 2,000 unit PO DAILY [facility] Last Admin: 04/09/18 10:36 Dose: 2,000 unit Docusate Sodium (Colace) 200 mg PO BID PRN PRN PRN Reason: Constipation Last Admin: 04/08/18 10:37 Dose: 200 mg Enoxaparin Sodium (Lovenox) 80 mg SC Q12H [facility] Ferrous Sulfate (Ferrous Sulfate) 325 mg PO BIDCM [facility] Last Admin: 04/09/18 08:50 Dose: 325 mg Folic Acid (Folic Acid) 1 mg PO QHS [facility] Last Admin: 04/08/18 22:51 Dose: 1 mg Furosemide (Lasix) 40 mg PO DAILY [facility] Last Admin: 04/09/18 08:51 Dose: 40 mg Hydromorphone HCl (Dilaudid Inj) 1 mg IV Q3H PRN PRN PRN Reason: SEVERE PAIN (6-10/10) Last Admin: 04/09/18 06:45 Dose: 1 mg Isosorbide Mononitrate (Imdur) [facility] Last Admin: 04/09/18 08:51 Dose: 30 mg Magnesium Hydroxide (Milk Of Magnesia) 30 ml PO DAILY PRN PRN PRN Reason: Constipation Metoprolol Tartrate (Lopressor (Beta Martha)) 12.5 mg PO BID [facility] Last Admin: 04/09/18 08:51 Dose: 12.5 mg Nicotine (Nicoderm Cq (Pbkc)) 14 mg TRANSDERM. DAILY [facility] Last Admin: 04/09/18 10:35 Dose: 14 mg Nitroglycerin (Nitrostat) 0.4 mg SUBLINGUAL Q5M PRN PRN Reason: Chest Pain Oxycodone HCl (Oxyir) 10 mg PO Q6H PRN PRN PRN Reason: SEVERE PAIN (6-10/10) Last Admin: 04/09/18 02:25 Dose: 10 mg Pantoprazole Sodium (Protonix) 40 mg PO BID [facility] Last Admin: 04/09/18 08:50 Dose: 40 mg Pregabalin (Lyrica) 75 mg PO BID [facility] Last Admin: 04/09/18 10:34 Dose: 75 mg Sodium Chloride () 5 - 30 ml IV UD PRN PRN Reason: SALINE FLUSH Last Admin: 04/09/18 06:46 Dose: 10 ml Warfarin Sodium (Coumadin (Pbkc)) 7.5 mg PO [email or web address] [facility] Last Admin: 04/08/18 17:19 Dose: 7.5 mg Warfarin Sodium (Coumadin (Pbkc)) 7.5 mg PO Anand@1700 [facility] Medical Necessity - Tobacco Use Smoking Status: Current every day smoker Tobacco Use: Cigarettes Assessment/Plan All Active Problems (Last Reviewed 04/07/18 @ 17:04 by Pancho Mantilla DO) Closed left ankle fracture (Acute) Trimalleolar fracture of ankle, closed (Acute) Left ankle pain (Acute) Risk for falls (Acute) GI bleed (Resolved) SALVADOR (acute kidney injury) (Resolved) Acute exacerbation of chronic obstructive pulmonary disease (Resolved) Bradycardia (Resolved) COPD with acute exacerbation (Resolved) Gram-negative pneumonia (Resolved) History of colonoscopy (Resolved) History of endoscopy (Resolved) Hypotension (Resolved) Hypoxia (Resolved) Subconjunctival hematoma (Resolved) This is a 77-year-old male with history of aortic valve replacement and A. fib was admitted after elective ORIF for left ankle trimalleolar fracture for further perioperative care. 1. Trimalleolar fracture Status post ORIF on 04/08/2018 Patient being admitted for further pain control Patient did have some issues in regards to oversedation with some of the pain control earlier this month so we will be cautious in regards to administration. Nonweightbearing to LLE Physical and occupational therapy evaluation for further assessment in regards to eventual disposition once patient is a stable for discharge Patient had a nerve block performed in the PACU 2. Atrial fibrillation Continue with Coumadin. INR subtherapeutic. On heparin drip Continue with metoprolol 3. Mechanical aortic valve DW Dr. Villarreal, would prefer he be on heparin gtt for now. Likely upon discharge can be changed to lovenox, if needed. Goal INR is 2.5-3.5 4. CAD hold ASA Acute hypoxic respiratory failure, exact etiology unclear possible history of COPD: Incentive spirometry. DuoNeb bronchodilator as needed. Patient does not seem to be an acute exacerbation. 5. DVT proph: anticoagulated. Code Visit Inpatient E&M: [id number] [facility] L3
--- NOTE | 2018-04-09 15:43 | PN_ITS ---
Subjective: Patient was seen and examined. Patient has Left ankle trimalleolar fracture status post ORIF Patient also has subtherapeutic INR. Has biomechanical aortic valve replacement in . On 2-3 L of oxygen. Vitals/I&O's: Vital Signs Temp Pulse Resp BP Pulse Ox 98.6 F 55 L 16 127/52 H 96 04/09/18 08:47 04/09/18 13:20 04/09/18 13:20 04/09/18 08:51 04/09/18 08:47 Oxygen Flow Rate (L/min) 3 Oxygen Delivery Method Nasal Cannula Weight: 175 lb 0.752 oz Body Mass Index (BMI) 25.1 Intake and Output for Last 24 Hours 04/07/18 04/08/18 04/09/18 23:59 23:59 23:59 Intake Total 1949 1093 / 1093 1094.6 / 1094.6 Output Total 1625 / 1625 1050 / 1050 Balance 1949 -532 / -532 44.6 / 44.6 General: Alert, Oriented x3, Cooperative HEENT: Atraumatic, PERRLA, EOMI, Normocephalic Neck: Supple, No JVD, Negative Carotid Bruits Lungs: No rhonchi, No wheeze, Diminished Cardiovascular: Regular rate, Normal S1, Normal S2, - - Mechanical aortic valve sound Abdomen: Bowel Sounds Present, Soft, Non Tender, Non-Distended Extremities: Capillary Refill Less than 3 Seconds, Edema Skin: No rashes, No breakdown Musculoskeletal: Arthritic Changes, - - Left below-knee cast Neurological: Cranial nerves II-XII grossly intact Psych/Mental Status: Normal Affect, Appropriate Laboratory Results 04/08/18 18:30: APTT 95.4 H* 04/09/18 00:06: APTT 83.7 H 04/09/18 07:38: PT 14.6, INR 1.1 04/09/18 07:38: WBC 3.8 L, RBC 3.14 L, Hgb 9.5 L, Hct 31.9 L, MCV 101.6 H, MCH 30.3, MCHC 29.8 L, RDW 14.3, RDW Differential 53.4 H, Plt Count 173, MPV 10.7, Immature Gran % (Auto) 0.300, Neut % (Auto) 64.8, Lymph % (Auto) 20.3, [place] % ( Auto) 12.0 H, Eos % (Auto) 2.1, Baso % (Auto) 0.5, Absolute Neuts (auto) 2.4, Absolute Lymphs (auto) 0.76 L, Total Counted Not Reportable 04/09/18 07:38: APTT 83.2 H 04/09/18 14:36: APTT 65.6 H Current Medications Albuterol Sulfate (Ventolin Aerosols) 2.5 mg INHALATION Q4H PRN PRN PRN Reason: Wheezing Albuterol Sulfate (Ventolin Aerosols) 2.5 mg INHALATION Q6HWA.RT [facility] Last Admin: 04/09/18 13:20 Dose: 2.5 mg Albuterol/Ipratropium (Duoneb) 3 ml INHALATION Q4H PRN PRN PRN Reason: sob/wheezing Atorvastatin Calcium (Lipitor) 80 mg PO QHS [facility] Last Admin: 04/08/18 22:51 Dose: 80 mg Budesonide (Pulmicort Aerosol) 0.5 mg INHALATION BID.RT [facility] Last Admin: 04/09/18 07:33 Dose: 0.5 mg Cholecalciferol (Vitamin D) 2,000 unit PO DAILY [facility] Last Admin: 04/09/18 10:36 Dose: 2,000 unit Docusate Sodium (Colace) 200 mg PO BID PRN PRN PRN Reason: Constipation Last Admin: 04/08/18 10:37 Dose: 200 mg Enoxaparin Sodium (Lovenox) 80 mg SC Q12H [facility] Ferrous Sulfate (Ferrous Sulfate) 325 mg PO BIDCM [facility] Last Admin: 04/09/18 08:50 Dose: 325 mg Folic Acid (Folic Acid) 1 mg PO QHS [facility] Last Admin: 04/08/18 22:51 Dose: 1 mg Furosemide (Lasix) 40 mg PO DAILY [facility] Last Admin: 04/09/18 08:51 Dose: 40 mg Hydromorphone HCl (Dilaudid Inj) 1 mg IV Q3H PRN PRN PRN Reason: SEVERE PAIN (6-10/10) Last Admin: 04/09/18 06:45 Dose: 1 mg Isosorbide [facility]onitrate (Imdur) [facility] [place] Admin: 04/09/18 08:51 Dose: 30 mg Magnesium Hydroxide (Milk Of Magnesia) 30 ml PO DAILY PRN PRN PRN Reason: Constipation Metoprolol Tartrate (Lopressor (Beta Martha)) 12.5 mg PO BID [facility] Last Admin: 04/09/18 08:51 Dose: 12.5 mg Nicotine (Nicoderm Cq (Pbkc)) 14 mg TRANSDERM. DAILY [facility] Last Admin: 04/09/18 10:35 Dose: 14 mg Nitroglycerin (Nitrostat) 0.4 mg SUBLINGUAL Q5M PRN PRN Reason: Chest Pain Oxycodone HCl (Oxyir) 10 mg PO Q6H PRN PRN PRN Reason: SEVERE PAIN (6-10/10) Last Admin: 04/09/18 02:25 Dose: 10 mg Pantoprazole Sodium (Protonix) 40 mg PO BID [facility] Last Admin: 04/09/18 08:50 Dose: 40 mg Pregabalin (Lyrica) 75 mg PO BID [facility] Last Admin: 04/09/18 10:34 Dose: 75 mg Sodium Chloride () 5 - 30 ml IV UD PRN PRN Reason: SALINE FLUSH Last Admin: 04/09/18 06:46 Dose: 10 ml Warfarin Sodium (Coumadin (Pbkc)) 7.5 mg PO [id number] [facility] Last Admin: 04/08/18 17:19 Dose: 7.5 mg Warfarin Sodium (Coumadin (Pbkc)) 7.5 mg PO Anand@1700 [facility] Medical Necessity - Tobacco Use Smoking Status: Current every day smoker Tobacco Use: Cigarettes Assessment/Plan All Active Problems (Last Reviewed 04/07/18 @ 17:04 by Pancho Mantilla DO) Closed left ankle fracture (Acute) Trimalleolar fracture of ankle, closed (Acute) Left ankle pain (Acute) Risk for falls (Acute) GI bleed (Resolved) SALVADOR (acute kidney injury) (Resolved) Acute exacerbation of chronic obstructive pulmonary disease (Resolved) Bradycardia (Resolved) COPD with acute exacerbation (Resolved) Gram-negative pneumonia (Resolved) History of colonoscopy (Resolved) History of endoscopy (Resolved) Hypotension (Resolved) Hypoxia (Resolved) Subconjunctival hematoma (Resolved) This is a 77-year-old male with history of aortic valve replacement and A. fib was admitted after elective ORIF for left ankle trimalleolar fracture for further perioperative care. 1. Trimalleolar fracture * Status post ORIF on 04/08/2018 * Patient being admitted for further pain control * Patient did have some issues in regards to oversedation with some of the pain control earlier this month so we will be cautious in regards to administration. * Nonweightbearing to LLE * Physical and occupational therapy evaluation for further assessment in regards to eventual disposition once patient is a stable for discharge * Patient had a nerve block performed in the PACU 2. Atrial fibrillation * Continue with Coumadin. INR subtherapeutic. On heparin drip * Continue with metoprolol 3. Mechanical aortic valve * DW Dr. Villarreal, would prefer he be on heparin gtt for now. Likely upon discharge can be changed to lovenox, if needed. * Goal INR is 2.5-3.5 4. CAD * hold ASA * Acute hypoxic respiratory failure, exact etiology unclear possible history of COPD: Incentive spirometry. DuoNeb bronchodilator as needed. Patient does not seem to be an acute exacerbation. 5. DVT proph: anticoagulated. Code Visit Inpatient E&M: [id number] [facility] L3
[2018-04-09] MEDS: Enoxaparin 80 MG/0.8 ML Syringe SC (18:19)
[2018-04-09] MEDS: Folic Acid 1 MG Tablet PO (22:50)
[2018-04-09] MEDS: Atorvastatin Calcium 80 MG Tablet PO (22:50)
[2018-04-10 02:13] VITALS: BP 136/59; PULSE 68; RESP 20; TEMP 36.8; O2SAT 97
[2018-04-10 06:42] LABS: International Normalized Ratio 1.1; Prothrombin Time (Protime)PT. 14.6 SECONDS (11.7-14.9)
[2018-04-10 07:06] LABS: Absolute Lymphocyte Count 0.56 X10^3/ul (0.83-4.51); Absolute Neutrophil Count 2.2 X10^3/uL (2.0-7.7); Basophil# 0.02 X10^3/uL; Basophil% 0.6 % (0-1); Eosinophil# 0.08 X10^3/uL; Eosinophils% 2.5 % (0-5); Hematocrit 32.3 % (40-54); Hemoglobin 9.9 g/dl (13.0-16.5); Lymphocyte # 0.56 X10^3/ul (4.0); Lymphocyte % 17.7 % (19-41); Mean Corp Hgb Conc 30.7 g/gl (32-36); Mean Corpuscular Hgb 30.9 pg (27.0-32.0); Mean Corpuscular Volume 100.9 fL (80-94); Mean Platelet Vol. 11.2 fl (6.2-12.0); Monocyte# 0.26 X10^3/uL; Monocyte% 8.2 % (0-10); Neutrophil # 2.24 X10^3/uL (2.7-7.7); Neutrophil % 70.7 % (47-70); Platelet Count 169 K/mm3 (150-450); RBC Distribution Width CV 13.6 % (11.6-14.6); RBC Distribution Width SD 49.2 fl (35.1-43.9); White Blood Count 3.2 K/mm3 (4.4-11.0)
[2018-04-10 07:07] LABS: Differential Indicated SCAN CRITERIA MET; POSITIVE COUNT NO; POSITIVE DIFFERENTIAL YES; POSITIVE MORPHOLOGY NO
[2018-04-10 07:08] VITALS: PULSE 70; RESP 18; O2SAT 94
[2018-04-10] MEDS: Budesonide Respules 0.5 MG/2 ML AMPUL.NEB. INHALATION (07:08)
[2018-04-10] MEDS: Albuterol 2.5 MG/3 ML VIAL.NEB. INHALATION (07:10)
[2018-04-10 08:00] VITALS: BP 125/62; PULSE 60; RESP 16; TEMP 36.9; O2SAT 98
[2018-04-10 08:02] LABS: Hypochromasia 1+; Platelet Estimate ADEQUATE (ADEQ); Polychromasia RARE
[2018-04-10 08:03] LABS: Macrocytosis RARE
[2018-04-10 09:14] VITALS: PULSE 62
[2018-04-10] MEDS: Metoprolol Tartrate 25 MG Tablet 12.5 MG PO (09:14)
[2018-04-10] MEDS: Furosemide 40 MG Tablet PO (09:14)
[2018-04-10] MEDS: Pantoprazole Sodium 40 MG Tablet PO (09:14)
[2018-04-10] MEDS: Ferrous Sulfate 325 MG Tablet PO (09:14)
[2018-04-10] MEDS: Enoxaparin 80 MG/0.8 ML Syringe SC (09:15)
[2018-04-10] MEDS: Pregabalin 75 MG Capsule PO (09:18)
[2018-04-10 09:56] VITALS: O2SAT 93
[2018-04-10] MEDS: Isosorbide Mononitrate 30 MG Tablet PO (10:32)
--- NOTE | 2018-04-10 10:40 | PCM.DC ---
You will use the following diet at home:: Calorie/Carbohydrate Controlled (specify 1200, 1400, etc) - 1800 [place] diet Discharge Activity: May not drive while taking narcotic pain medications., Use Walker, Use Crutches, - - shower with assistance to remain non weight bearing to left. Use shower bag to surgical limb to keep dry Weight Bearing Status: No weight bearing Keep extremity elevated above heart level: Left Leg Call your doctor if your incision/area has: Continuous Slow Oozing, Sudden Increased Bleeding, Increased Pain/ Swelling, Increased Redness, Foul Smelling Discharge, Swelling at the incision site Call your doctor if you observe: Fever of 101 or Higher, Numbness or Tingling, Calf discomfort, Uncontrolled pain Cleanse incision/area with: Keep Dressing Clean & Dry Allergies/Adverse Reactions: Allergies No Known Allergies Allergy (Verified 04/04/18 12:51) Medications to take at Discharge Rosuvastatin Calcium [Crestor] 40 mg PO QHS 07/15/13 Ferrous Sulfate 325 mg PO BIDCM 09/13/15 Albuterol Sulfate [Proair Respiclick] 1 puff INHALATION Q4H PRN PRN 09/25/15 Cholecalciferol (VIT D3) [Vitamin D3] 2,000 unit PO DAILY 09/25/15 Nitroglycerin [Nitrostat] 0.4 mg SUBLINGUAL Q5M PRN #30 tab 09/26/15 Aspirin E.C. [Ecotrin] 81 mg PO DAILY@0800 06/24/16 Folic Acid 1 mg PO QHS 06/24/16 Ipratropium/Albuterol Sulfate [Duoneb] 3 ml INHALATION Q4H PRN PRN #30 ampul.neb 11/02/16 Metoprolol Tartrate [Lopressor (beta zach)] 12.5 mg PO BID 01/20/17 Docusate Sodium [Colace] 200 mg PO BID PRN PRN cap 01/27/17 Budesonide/Formoterol 160/4.5 [Symbicort 160/4.5 Mcg Inhaler (SP)] 2 puff INHALATION BID 02/08/17 Furosemide [Lasix] 40 mg PO DAILY 02/08/17 isosorbide mononitrate ER 30 mg tablet,extended release 24 hr 30 mg PO QAM 11/21/17 pregabalin 75 mg capsule 75 mg PO BID 11/21/17 pantoprazole 40 mg tablet,delayed release 40 mg PO BID tab 01/02/18 warfarin 5 mg tablet 5 mg PO FULLER tab 01/02/18 warfarin 7.5 mg tablet 7.5 mg PO MOTUWETHFRSA tab 01/02/18 Enoxaparin [Lovenox] 80 mg SC Q12@0600,1800 #14 syringe 04/10/18 The following prescriptions were given: Enoxaparin [Lovenox] 80 mg SC Q12@0600,1800 #14 syringe Primary Care Physician: Guillermo Pritchard MD [Primary Care Provider] - Please follow up with your Primary Care Physician in: in 1-2 weeks Test Results: Test results from this visit will be discussed in further detail at your follow-up appointment, if applicable. F/U INR on 04/11 and titrate dose of Coumadin accordingly and CBC on 04/14/2018 Please Follow Up With: Mary Alice Villarreal DPM When: within 1 wk at [facility]; [phone]
--- NOTE | 2018-04-10 12:34 | CASEMGMT ---
SURY CM discussed discharge plans with patient. Patient states that he would like to discharge home with [facility]. Patient prefers [facility], who he has had in the past. Referral made to [facility] and they are able to accept the patient. CM will continue to follow this patient and plan for a safe discharge.
--- NOTE | 2018-04-10 12:43 | PCA ---
mariela make the appointments for the patient but the daughter Emily Montejo will make his appointments cause she is the one who takes him and so it will work around her schedule.
--- NOTE | 2018-04-10 16:37 | PCM.DC.SUM ---
Discharge Date and Diagnosis Date of Admission: 04/07/18 Date of Discharge: 04/10/18 - Primary Discharge Diagnosis Left ankle trimalleolar fracture or pain control after surgery 2. Atrial fibrillation 3. Mechanical aortic valve 4. 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) Chronic systolic (congestive) heart failure (Chronic) Ischemic cardiomyopathy (Chronic) History of coronary artery stent placement (Chronic) 06/28/2011 prior to PTCA and BMS (3.0 mm X 18 mm long Integrity stent) to mid LAD, BMS to the mid distal CX (4.5 X 16mm Veriflex stent), and BMS to the proximal CX (3.5 X 15 mm Integrity stent) @ [facility] Atherosclerotic heart disease of [place] coronary artery without angina pectoris (Chronic) 03/27/1993: RED to LAD (CABG X1 along with AVR, [facility]):06/28/2011 prior to PTCA and BMS to mid LAD, BMS to the mid distal CX, and BMS to the proximal CX @ [facility] History of left heart catheterization (Chronic) 03/27/1993 [facility] prior to CABG X1 and AVR; 06/28/2011 prior to PTCA and BMS to mid LAD, BMS to the mid distal CX, and BMS to the proximal CX @ [facility] History of aortic valve replacement (Chronic) 03/27/1993: RED to LAD and 23mm [facility] Mechanical AVR placed for severe per Dr. Darrell Shaw [facility] S/P CABG x 1 (Chronic) 03/27/1993: RED to LAD and 23mm [facility] Prosthetic AVR placed for severe per Dr. 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 HERNANDEZ Hospital Course and Treatment Operations: None Summary of Care Provided: [] This is a 77-year-old male with history of aortic valve replacement and A. fib was admitted after elective ORIF for left ankle trimalleolar fracture for further perioperative care. Patient seen and examined today. Patient is off oxygen. Sitting comfortably in the chair. No fever. General: Alert, Oriented x3, Cooperative HEENT: Atraumatic, PERRLA, EOMI, Normocephalic Neck: Supple, No JVD, Negative Carotid Bruits Lungs: No rhonchi, No wheeze, Diminished Cardiovascular: Regular rate, Normal S1, Normal S2, - - Mechanical aortic valve sound Abdomen: Bowel Sounds Present, Soft, Non Tender, Non-Distended Extremities: Capillary Refill Less than 3 Seconds, Edema Skin: No rashes, No breakdown Musculoskeletal: Arthritic Changes, - - Left below-knee cast Neurological: Cranial nerves II-XII grossly intact Psych/Mental Status: Normal Affect, Appropriate shoe 1. Trimalleolar fracture Status post ORIF on 04/08/2018 Patient being admitted for further pain control. Pain was controlled Nonweightbearing to LLE Physical and occupational therapy evaluation for further assessment in regards to eventual disposition once patient is a stable for discharge Patient had a nerve block performed in the PACU 2. Atrial fibrillation Continue with Coumadin. INR subtherapeutic. On heparin drip Continue with metoprolol 3. Mechanical aortic valve DW Dr. Villarreal, would prefer he be on heparin gtt for now. Likely upon discharge can be changed to lovenox, if needed. Goal INR is 2.5-3.5. Patient is discharged on Lovenox. Patient has experienced with Lovenox subcutaneous injection in the past and has Lovenox syringes. Prescription given for follow-up INR tomorrow and follow with PCP Dr. Simpson to titrate the dose of Coumadin accordingly. 4. CAD hold ASA Acute hypoxic respiratory failure, exact etiology unclear possible history of COPD: Incentive spirometry. DuoNeb bronchodilator as needed. Patient does not seem to be an acute exacerbation. Resolved. 5. DVT proph: anticoagulated. Discharge meds reconciliation done. Follow-up instructions given. Repeat outpatient lab of CBC and PT/INR discussed with the patient and advised follow with PCP. Total time spent, exact 35 minutes on discharge meds reconciliation, examination, review of imaging and blood test and discussion with the patient on follow-up instructions. Discharge Activity: May not drive while taking narcotic pain medications., Use Walker, Use Crutches, - - shower with assistance to remain non weight bearing to left. Use shower bag to surgical limb to keep dry Weight Bearing Status: No weight bearing Keep extremity elevated above heart level: Left Leg Call your doctor if your incision/area has: Continuous Slow Oozing, Sudden Increased Bleeding, Increased Pain/ Swelling, Increased Redness, Foul Smelling Discharge, Swelling at the incision site Call your doctor if you observe: Fever of 101 or Higher, Numbness or Tingling, Calf discomfort, Uncontrolled pain Cleanse incision/area with: Keep Dressing Clean & Dry Home Medications: Medications to take at Discharge Rosuvastatin Calcium [Crestor] 40 mg PO QHS 07/15/13 Ferrous Sulfate 325 mg PO BIDCM 09/13/15 Albuterol Sulfate [Proair Respiclick] 1 puff INHALATION Q4H PRN PRN 09/25/15 Cholecalciferol (VIT D3) [Vitamin D3] 2,000 unit PO DAILY 09/25/15 Nitroglycerin [Nitrostat] 0.4 mg SUBLINGUAL Q5M PRN #30 tab 09/26/15 Aspirin E.C. [Ecotrin] 81 mg PO DAILY@0800 06/24/16 Folic Acid 1 mg PO QHS 06/24/16 Ipratropium/Albuterol Sulfate [Duoneb] 3 ml INHALATION Q4H PRN PRN #30 ampul.neb 11/02/16 Metoprolol Tartrate [Lopressor (beta zach)] 12.5 mg PO BID 01/20/17 Docusate Sodium [Colace] 200 mg PO BID PRN PRN cap 01/27/17 Budesonide/Formoterol 160/4.5 [Symbicort 160/4.5 Mcg Inhaler (SP)] 2 puff INHALATION BID 02/08/17 Furosemide [Lasix] 40 mg PO DAILY 02/08/17 isosorbide mononitrate ER 30 mg tablet,extended release 24 hr 30 mg PO QAM 11/21/17 pregabalin 75 mg capsule 75 mg PO BID 11/21/17 pantoprazole 40 mg tablet,delayed release 40 mg PO BID tab 01/02/18 warfarin 5 mg tablet 5 mg PO FULLER tab 01/02/18 warfarin 7.5 mg tablet 7.5 mg PO MOTUWETHFRSA tab 01/02/18 Enoxaparin [Lovenox] 80 mg SC Q12@0600,1800 #14 syringe 04/10/18 Following Prescrptions Were Given to Patient: Enoxaparin [Lovenox] 80 mg SC Q12@0600,1800 #14 syringe Primary Care Physician: Guillermo Pritchard MD [Primary Care Provider] - Please follow up with your Primary Care Physician in: in 1-2 weeks Please Follow Up With: Mary Alice Villarreal DPM When: within 1 wk at [facility]; [phone] Medical Necessity - Tobacco Use Smoking Status: Current every day smoker Tobacco Use: Cigarettes Meaningful Use Info Meaningful Use Diagnoses (Choose all that apply): None applicable Code Visit Inpatient E&M: 38399 [facility]
--- NOTE | 2018-04-10 16:42 | DS.PCM_ITS ---
Discharge Date and Diagnosis Date of Admission: 04/07/18 Date of Discharge: 04/10/18 - Primary Discharge Diagnosis Left ankle trimalleolar fracture or pain control after surgery * 2. Atrial fibrillation * 3. Mechanical aortic valve 4. 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) Chronic systolic (congestive) heart failure (Chronic) Ischemic cardiomyopathy (Chronic) History of coronary artery stent placement (Chronic) 06/28/2011 prior to PTCA and BMS (3.0 mm X 18 mm long Integrity stent) to mid LAD, BMS to the mid distal CX (4.5 X 16mm Veriflex stent), and BMS to the proximal CX (3.5 X 15 mm Integrity stent) @ [facility] Atherosclerotic heart disease of [place] coronary artery without angina pectoris (Chronic) 03/27/1993: RED to LAD (CABG X1 along with AVR, [facility]):06/28/2011 prior to PTCA and BMS to mid LAD, BMS to the mid distal CX, and BMS to the proximal CX @ [facility] History of left heart catheterization (Chronic) 03/27/1993 [facility] prior to CABG X1 and AVR; 06/28/2011 prior to PTCA and BMS to mid LAD, BMS to the mid distal CX, and BMS to the proximal CX @ [facility] History of aortic valve replacement (Chronic) 03/27/1993: RED to LAD and 23mm [facility] Rachid Mechanical AVR placed for severe per Dr. Darrell Shaw [facility] S/P CABG x 1 (Chronic) 03/27/1993: RED to LAD and 23mm St[facility] Rachid Prosthetic AVR placed for severe per Dr. 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 HERNANDEZ Hospital Course and Treatment Operations: None Summary of Care Provided: [] This is a 77-year-old male with history of aortic valve replacement and A. fib was admitted after elective ORIF for left ankle trimalleolar fracture for further perioperative care. Patient seen and examined today. Patient is off oxygen. Sitting comfortably in the chair. No fever. General: Alert, Oriented x3, Cooperative HEENT: Atraumatic, PERRLA, EOMI, Normocephalic Neck: Supple, No JVD, Negative Carotid Bruits Lungs: No rhonchi, No wheeze, Diminished Cardiovascular: Regular rate, Normal S1, Normal S2, - - Mechanical aortic valve sound Abdomen: Bowel Sounds Present, Soft, Non Tender, Non-Distended Extremities: Capillary Refill Less than 3 Seconds, Edema Skin: No rashes, No breakdown Musculoskeletal: Arthritic Changes, - - Left below-knee cast Neurological: Cranial nerves II-XII grossly intact Psych/Mental Status: Normal Affect, Appropriate shoe 1. Trimalleolar fracture * Status post ORIF on 04/08/2018 * Patient being admitted for further pain control. Pain was controlled * Nonweightbearing to LLE * Physical and occupational therapy evaluation for further assessment in regards to eventual disposition once patient is a stable for discharge * Patient had a nerve block performed in the PACU 2. Atrial fibrillation * Continue with Coumadin. INR subtherapeutic. On heparin drip * Continue with metoprolol 3. Mechanical aortic valve * DW Dr. Villarreal, would prefer he be on heparin gtt for now. Likely upon discharge can be changed to lovenox, if needed. * Goal INR is 2.5-3.5. * Patient is discharged on Lovenox. Patient has experienced with Lovenox subcutaneous injection in the past and has Lovenox syringes. * Prescription given for follow-up INR tomorrow and follow with PCP Dr. Simpson to titrate the dose of Coumadin accordingly. 4. CAD * hold ASA * Acute hypoxic respiratory failure, exact etiology unclear possible history of COPD: Incentive spirometry. DuoNeb bronchodilator as needed. Patient does not seem to be an acute exacerbation. Resolved. 5. DVT proph: anticoagulated. Discharge meds reconciliation done. Follow-up instructions given. Repeat outpatient lab of CBC and PT/INR discussed with the patient and advised follow with PCP. Total time spent, exact 35 minutes on discharge meds reconciliation, examination, review of imaging and blood test and discussion with the patient on follow-up instructions. Discharge Activity: May not drive while taking narcotic pain medications., Use Walker, Use Crutches, - - shower with assistance to remain non weight bearing to left. Use shower bag to surgical limb to keep dry Weight Bearing Status: No weight bearing Keep extremity elevated above heart level: Left Leg Call your doctor if your incision/area has: Continuous Slow Oozing, Sudden Increased Bleeding, Increased Pain/ Swelling, Increased Redness, Foul Smelling Discharge, Swelling at the incision site Call your doctor if you observe: Fever of 101 or Higher, Numbness or Tingling, Calf discomfort, Uncontrolled pain Cleanse incision/area with: Keep Dressing Clean & Dry Home Medications: Medications to take at Discharge Rosuvastatin Calcium [Crestor] 40 mg PO QHS 07/15/13 Ferrous Sulfate 325 mg PO BIDCM 09/13/15 Albuterol Sulfate [Proair Respiclick] 1 puff INHALATION Q4H PRN PRN 09/25/15 Cholecalciferol (VIT D3) [Vitamin D3] 2,000 unit PO DAILY 09/25/15 Nitroglycerin [Nitrostat] 0.4 mg SUBLINGUAL Q5M PRN #30 tab 09/26/15 Aspirin E.C. [Ecotrin] 81 mg PO DAILY@0800 06/24/16 Folic Acid 1 mg PO QHS 06/24/16 Ipratropium/Albuterol Sulfate [Duoneb] 3 ml INHALATION Q4H PRN PRN #30 ampul.neb 11/02/16 Metoprolol Tartrate [Lopressor (beta zach)] 12.5 mg PO BID 01/20/17 Docusate Sodium [Colace] 200 mg PO BID PRN PRN cap 01/27/17 Budesonide/Formoterol 160/4.5 [Symbicort 160/4.5 Mcg Inhaler (SP)] 2 puff INHALATION BID 02/08/17 Furosemide [Lasix] 40 mg PO DAILY 02/08/17 isosorbide mononitrate ER 30 mg tablet,extended release 24 hr 30 mg PO QAM 11/21 pregabalin 75 mg capsule 75 mg PO BID 11/21/17 pantoprazole 40 mg tablet,delayed release 40 mg PO BID tab 01/02/18 warfarin 5 mg tablet 5 mg PO FULLER tab 01/02/18 warfarin 7.5 mg tablet 7.5 mg PO MOTUWETHFRSA tab 01/02/18 Enoxaparin [Lovenox] 80 mg SC Q12@0600,1800 #14 syringe 04/10/18 Following Prescrptions Were Given to Patient: Enoxaparin [Lovenox] 80 mg SC Q12@0600,1800 #14 syringe Primary Care Physician: Guillermo Pritchard MD [Primary Care Provider] - Please follow up with your Primary Care Physician in: in 1-2 weeks Please Follow Up With: Mary Alice Villarreal DPM When: within 1 wk at [facility]; [phone] Medical Necessity - Tobacco Use Smoking Status: Current every day smoker Tobacco Use: Cigarettes Meaningful Use Info Meaningful Use Diagnoses (Choose all that apply): None applicable Code Visit Inpatient E&M: 80186 Disch Hosp
--- NOTE | 2018-04-11 14:57 | CASEMGMT ---
SURY UMNOZ Discharge call DC Date: 01/08/18 GAUTAM 3 Intro role of CM to patient via home phone call. Pt states he does not have questions re: medications and has f/u appointment @ 1130 with podiatry. Pt states he had not heard from [facility] yet. SURY MUNOZ offered to call and check on planned start of care. Pt is agreeable and asked that I then contact his daughter. -Per Giuliana @ [facility], start of care is tomorrow and they will call in am. SURY MUNOZ called to daughter Emily to notify that [facility] was going to call in am with time of appt. Notified I would let [facility] know that INR was due to be drawn today. -INR was due to be drawn today. Call to REFUGIO Santamaria for [facility]- message left re: start of care, INR to be drawn and pt's daughter requests a call. Naty MICHAELSN RN ACM
== END 2018-04-10 12:40 | disposition home health service (06) | DRG 492 ==
LOC: MS3 04-09 03:06 → SDC 04-10 08:04
PROVIDERS: Podiatrist; Family Provider Family Medicine; PCP Family Medicine; Visit Provider Internal Medicine
PROC: 0QSK04Z Reposition Left Fibula with Internal Fixation Device, Open Approach (ICD-10-PCS; principal; 2018-04-07 13:10)
DX: S82.852A Displaced trimalleolar fracture of left lower leg, initial encounter for closed fracture (principal); J96.01 Acute respiratory failure with hypoxia; X58.XXXA Exposure to other specified factors, initial encounter; I48.91 Unspecified atrial fibrillation; I25.10 Atherosclerotic heart disease of native coronary artery without angina pectoris; F17.210 Nicotine dependence, cigarettes, uncomplicated; I10 Essential (primary) hypertension; E78.5 Hyperlipidemia, unspecified; Z95.2 Presence of prosthetic heart valve; Z95.1 Presence of aortocoronary bypass graft; Z95.5 Presence of coronary angioplasty implant and graft; Z79.01 Long term (current) use of anticoagulants; J44.9 Chronic obstructive pulmonary disease, unspecified
CPT/HCPCS: 36415; 71046; 73600; 73610; 73630; 76000; 80048; 85025; 85610; 85730; 86850; 86900; 93017; 93350; 94640; 97110; 97162; 97165; 97530; 97802; 99406; C1713; J7030; J7120; Q9957; A4216; C8928; J2405

== ENCOUNTER → 2018-04-14 11:50 | Outpatient (CLI) | payer MEDICARE, SELFPAY ==
[2018-04-14 12:30] LABS: Absolute Lymphocyte Count 0.88 X10^3/ul (0.83-4.51); Absolute Neutrophil Count 1.6 X10^3/uL (2.0-7.7); Basophil# 0.05 X10^3/uL; Basophil% 1.7 % (0-1); Eosinophils% 3.4 % (0-5); Hematocrit 35.7 % (40-54); Hemoglobin 10.9 g/dl (13.0-16.5); Lymphocyte # 0.88 X10^3/ul (4.0); Lymphocyte % 29.5 % (19-41); Mean Corp Hgb Conc 30.5 g/gl (32-36); Mean Corpuscular Hgb 29.9 pg (27.0-32.0); Mean Corpuscular Volume 97.8 fL (80-94); Mean Platelet Vol. 11.2 fl (6.2-12.0); Monocyte# 0.33 X10^3/uL; Monocyte% 11.1 % (0-10); Neutrophil # 1.62 X10^3/uL (2.7-7.7); Neutrophil % 54.3 % (47-70); POSITIVE COUNT NO; POSITIVE DIFFERENTIAL NO; POSITIVE MORPHOLOGY NO; Platelet Count 241 K/mm3 (150-450); RBC Distribution Width CV 13.9 % (11.6-14.6); RBC Distribution Width SD 49.8 fl (35.1-43.9); Red Blood Count 3.65 M/mm3 (4.6-6.2)
== END ==
PROVIDERS: Family Provider Family Medicine; PCP Family Medicine; Referring Provider Internal Medicine; Visit Provider Internal Medicine
DX: D64.9 Anemia, unspecified (principal)
CPT/HCPCS: 85025

== ENCOUNTER 2018-05-12 00:50 | Emergency (ER) | payer MEDICARE, SELFPAY ==
[2018-05-12 00:50] VITALS: BP 134/71; PULSE 66; RESP 18; TEMP 36.4; O2SAT 96; BMI 24.1
[2018-05-12 01:33] VITALS: O2SAT 97
--- NOTE | 2018-05-12 01:41 | CT_ITS ---
STUDY: CT CHEST WITHOUT CONTRAST REASON FOR EXAM: Male, 78 years old. Patient fell RADIATION DOSAGE (If Supplied By Facility): CTDIvol = ( 18.49 ) mGy, DLP = ( 785.16 ) mGycm TECHNIQUE: Transaxial imaging was performed without the administration of intravenous contrast material. Individualized dose optimization techniques were used for this CT. COMPARISON: None. FINDINGS: : TRACHEA, THYROID, ESOPHAGUS: No tracheomalacia,stricture or wall thickening. 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 At the same level with corresponding descending aorta has a diameter of 3.1 cm. The pulmonary trunk and the left and right pulmonary arteries are grossly within normal limits. ESTHER AND LYMPH NODES: No hilar masses and no mediastinal, hilar, axillary or supraclavicular adenopathy LUNGS, LOW-ATTENUATION: No traction bronchiectasis, honeycombing,emphysema, lung cysts or cavitations. No lung lacerations. Centrilobular emphysematous changes in both lung bases. It 0.4 cm lung cyst in the right lung base. LUNGS, HIGH ATTENUATION: There is a 1.1 cm groundglass nodule in the right apex. No lung contusion. LUNGS, MOSAIC/CRAZY PAVING: Not evident PLEURA AND CHEST WALL: No plural effusions, pneumothoraces,rib fractures or any osteolytic/osteoblastic changes . The soft tissue chest wall including the breasts are normal CT/Chest without Contrast IMPRESSION: No evidence of lung contusions or lacerations. No rib fractures and no pneumothoraces. A 1.1 cm groundglass nodule in the right apex. A follow-up examination in 3 months is suggested Electronically Signed: Samson Sepulveda MD at 3:13 EDT Tel , Service support ,
--- NOTE | 2018-05-12 01:41 | CT_ITS ---
STUDY: CT ABDOMEN AND PELVIS WITHOUT CONTRAST REASON FOR EXAM: Male, 78 years old. Patient fell RADIATION DOSAGE (If Supplied By Facility): CTDIvol = ( 20.37 ) mGy, DLP = ( 1172.02 ) mGycm TECHNIQUE: Transaxial images were obtained from the dome of the diaphragm to the symphysis pubis without oral contrast, and without intravenous contrast. Sagittal and coronal images were reconstructed. Individualized dose optimization techniques were used for this CT. COMPARISON: None. FINDINGS: The lung bases are clear. The liver is normal. No dilated intrahepatic biliary radicles. The gallbladder is normal with no calcifications within it. There is no pericholecystic fluid collection or streakiness The spleen is normal. The pancreas is normal. Both adrenals are normal. 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 The stomach is normal. There is no bowel distention, acute appendicitis or diverticulitis. No constricting lesions are seen in large bowel. The abdominal wall is intact with no hernias. There is no ascites or any free intraperitoneal air. No indication of epiploic appendagitis The vascular structures in the retroperitoneum are normal. There is no retrocrural, retroperitoneal or mesenteric adenopathy. Previous surgery in the lower lumbosacral spine. There are no acute fractures or dislocations The urinary bladder is normal.--The prostate is enlarged. There is no inguinal or pelvic adenopathy. There is no inguinal hernia. . CT/Abdomen/Pelvis without Cont IMPRESSION: No contusions or lacerations involving any of the intra-abdominal organs all involving the abdominal wall. There are no acute fractures. 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 No acute appendicitis or diverticulitis Electronically Signed: Samson Sepulveda MD at 3:23 EDT Tel , Service support ,
--- NOTE | 2018-05-12 01:41 | CT_ITS ---
STUDY: CT BRAIN WITHOUT CONTRAST REASON FOR EXAM: Male, 78 years old. Patient RADIATION DOSAGE (If Supplied By Facility): CTDIvol = ( 44.99 ) mGy, DLP = ( 796.11 ) mGycm TECHNIQUE: Transaxial CT imaging of the brain was performed without administration of intravenous contrast material. Individualized dose optimization techniques were used for this CT. COMPARISON: None. FINDINGS: Normal soft tissue structures. Normal calvarium. Normal size ventricles and extra-axial spaces for the patient's age. Normal white matter tracts of the cerebral hemispheres. Normal basal ganglia and thalami. Normal brainstem. Normal cerebellum. There is no intracranial hemorrhage. There are no findings of an acute ischemic infarction. Normal visualized paranasal sinuses. Bilateral senile scleral plaques are noted CT/Brain/Head without Contrast IMPRESSION: No acute findings in the brain Electronically Signed: Samson Sepulveda MD at 3:04 EDT Tel , Service support ,
--- NOTE | 2018-05-12 01:42 | ED.VIS.GEN ---
History of Present Illness Chief Complaint: Fall Informant: Patient, Family Onset: Today Context: Sudden Onset - getting out of bed to get something to drink -- I just fell Timing: Continuous Quality: pain Location: left side/flank Current Severity: Severe Maximum Severity: Severe Worsened by: moving Relieved by: nothing Associated Symptoms: none. no LOC, n/v, headache. Narrative: Patient states he does not know why he fell. He had no prodromal symptoms. He currently is using crutches because of a recent ORIF left ankle 1-2 months ago. He fell next to a closet and was able to crawl to his bed and called his daughter, who came to evaluate him and called 911 for assistance. He does not think he hit his head, but he is a relatively poor historian, although he is in a lot of pain with regards to his left side. Hurts worse to breathe but he does not feel short of breath. He scraped his left elbow/forearm but does not have any significant extremity pain except for the postoperative pain that he has been having in his left ankle he states that is no worse. - Past Medical History (1) Atrial fibrillation Status: Chronic (2) COPD (chronic obstructive pulmonary disease) Status: Chronic (3) Chronic pain syndrome Status: Chronic Comment: follows with pain Management, Dr. HERNANDEZ (4) Chronic systolic (congestive) heart failure Status: Chronic (5) HLD (hyperlipidemia) Status: Chronic (6) HTN (hypertension) Status: Chronic (7) History of GI bleed Status: Chronic Comment: 08/09/2017 (8) History of aortic valve replacement Status: Chronic Comment: 03/27/1993: RED to LAD and 23mm St[facility] Rachid Mechanical AVR placed for severe per Dr. Darrell Shaw, [facility] (9) History of coronary artery stent placement Status: Chronic Comment: 06/28/2011 prior to PTCA and BMS (3.0 mm X 18 mm long Integrity stent) to mid LAD, BMS to the mid distal CX (4.5 X 16mm Veriflex stent), and BMS to the proximal CX (3.5 X 15 mm Integrity stent) @ [facility] (10) Non-rheumatic tricuspid valve insufficiency Status: Chronic (11) S/P CABG x 1 Status: Chronic Comment: 03/27/1993: RED to LAD and 23mm St[facility] Rachid Prosthetic AVR placed for severe per Dr. Darrell Shaw, [facility] (12) Secondary pulmonary arterial hypertension Status: Chronic (13) Spinal stenosis of lumbar region Status: Chronic Past Medical History - Allergies and Home Meds Allergies/Adverse Reactions: Allergies No Known Allergies Allergy (Verified 05/12/18 00:54) Primary Care Physician: Guillermo Pritchard MD [Primary Care Provider] - Surgical History: coronary bypass surgery, - - Mechanical aortic valve replacement, back surgeries, RLE ankle surgery recently. Lives: Alone Smoking Status: Current every day smoker - Family History Maternal Family History: Family History (Last Reviewed 04/07/18 @ 17:04 by Pancho Mantilla DO) Son CAD (coronary artery disease) Myocardial infarction Sudden cardiac Brother CAD (coronary artery disease) Sister CAD (coronary artery disease) Family History: Reports: Diabetes, Heart Disease, Hypertension Paternal Family History: Family History (Last Reviewed 04/07/18 @ 17:04 by Pancho Mantilla DO) Son CAD (coronary artery disease) Myocardial infarction Sudden cardiac Brother CAD (coronary artery disease) Sister CAD (coronary artery disease) Family History: Reports: Diabetes, Heart Disease, Hypertension Review of Systems General: Denies: Chills, Fever, Sweats Eyes: Denies: Visual changes - bilaterally, Diplopia Cardiovascular: Reports: Chest pain - left lower ribcage. Denies: Palpitations Respiratory: Denies: Dyspnea, Cough, Dyspnea on exertion Gastrointestinal: Reports: Abdominal pain. Denies: Nausea, Vomiting, Diarrhea, Melena, Hematochezia Genitourinary: Denies: Dysuria, Hematuria, Frequency Musculoskeletal: Reports: Extremity Pain - left ankle. Denies: Neck pain, Back pain Skin: Denies: Rash Neurological: Denies: Headache, Weakness, Numbness Physical Exam Vital Signs/Narrative: Vital Signs Temp Pulse Resp BP Pulse Ox 05/12/18 00:50 97.5 F L 66 18 134/71 H 96 Inital Vital Signs reviewed: Yes General: Well nourished, Well developed Head: Normocephalic, Atraumatic Eyes: Perrl, EOMI ENT: Moist mucous membranes, No rhinorrhea Neck: Supple, Nontender, - - FROM w/o difficulty or meningismus. Cardiovascular: Regular rate, Regular rhythm, No murmurs Respiratory: No distress, CTA bilaterally, Chest tenderness - left lower ant-lat ribcage. no crepitance or step-offs. Abdomen: Soft, Nondistended, Normal bowel sounds, Tender - diffusely, worse throughout left side. contusion left flank., Guarding. Negative for: Rebound tenderness Back: Nontender, Normal Inspection. Negative for: Spinal tenderness Extremities: Nontender, No edema Skin: Normal color, No rash, Trauma - contusion left flank. no hematoma. Neurological: Alert, Oriented x3, Cranial nerves II-XII grossly intact, Normal Strength, Normal Sensation Psychological: - - anxious. in pain. Diagnostic/Tx/Re-eval Impressions Abdomen/Pelvis CT 05/12/18 01:41 IMPRESSION: No contusions or lacerations involving any of the intra-abdominal organs all involving the abdominal wall. There are no acute fractures. 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 No acute appendicitis or diverticulitis Electronically Signed: Samson Sepulveda MD at 3:23 EDT Tel , Service support , Brain CT 05/12/18 01:41 IMPRESSION: No acute findings in the brain Electronically Signed: Samson Sepulveda MD at 3:04 EDT Tel , Service support , Chest CT 05/12/18 01:41 IMPRESSION: No evidence of lung contusions or lacerations. No rib fractures and no pneumothoraces. A 1.1 cm groundglass nodule in the right apex. A follow-up examination in 3 months is suggested Electronically Signed: Samson Sepulveda MD at 3:13 EDT Tel , Service support , 05/12/18 01:41 Abdomen/Pelvis without Cont [CT] Stat Brain/Head without Contrast [CT] Stat Chest without Contrast [CT] Stat Laboratory Results 05/12/18 05/12/18 05/12/18 02:04 02:04 02:04 WBC 4.7 RBC 4.33 L Hgb 12.8 L Hct 41.7 MCV 96.3 H MCH 29.6 MCHC 30.7 L RDW 14.7 H RDW Differential 52.0 H Plt Count 139 L MPV 10.3 Immature Gran % (Auto) 0.000 Neut % (Auto) 70.5 H Lymph % (Auto) 17.6 L [place] % (Auto) 9.4 Eos % (Auto) 1.9 Baso % (Auto) 0.6 Absolute Neuts (auto) 3.3 Absolute Lymphs (auto) 0.82 L Total Counted Not Reportable PT 32.6 H INR 3.2 Sodium 143 Potassium 3.6 Chloride 108 H Carbon Dioxide 31.0 Anion Gap 4 L BUN 20 H Creatinine 1.08 Estim Creat Clear Calc 56.33 Est GFR (MDRD) Af Amer 85 Est GFR (MDRD) Non-Af 70 BUN/Creatinine Ratio 18.5 Glucose 131 H Calcium 8.8 - Medical Decision Making Patient is pretty tender in his left abdomen and left chest wall, and is not the greatest historian so I chose to image all of this especially since he is on Coumadin, including his head. CT scanning shows no acute injuries in any of these areas. He does have a small nodule in the left lung which I discussed with him as well as follow-up imaging it was recommended by the radiologist. His INR is therapeutic around 3. His pain was controlled with a couple doses of morphine. He is able to stand and walk and is comfortable going home. He has Percocet left over from his surgery to use as needed for pain, they are comfortable with this plan. ED Disposition - Plan for ED Patient: Disposition: Home or Assisted Living Chief Complaint: Fall Diagnosis: Contusion of flank, Contusion of rib on left side Instructions: ED Mechanical Fall, ED Contusion Chest Wall Referrals: Guillermo Pritchard MD [Primary Care Provider] - 1 Week if not improving Additional Instructions: If you need something in addition to your Percocet for the pain, use ice over the affected area, not heat.
--- NOTE | 2018-05-12 01:48 | ED.DCSUM_ITS ---
History of Present Illness Chief Complaint: Fall Informant: Patient, Family Onset: Today Context: Sudden Onset - getting out of bed to get something to drink -- I just fell Timing: Continuous Quality: pain Location: left side/flank Current Severity: Severe Maximum Severity: Severe Worsened by: moving Relieved by: nothing Associated Symptoms: none. no LOC, n/v, headache. Narrative: Patient states he does not know why he fell. He had no prodromal symptoms. He currently is using crutches because of a recent ORIF left ankle 1-2 months ago. He fell next to a closet and was able to crawl to his bed and called his daughter, who came to evaluate him and called 911 for assistance. He does not think he hit his head, but he is a relatively poor historian, although he is in a lot of pain with regards to his left side. Hurts worse to breathe but he does not feel short of breath. He scraped his left elbow/forearm but does not have any significant extremity pain except for the postoperative pain that he has been having in his left ankle he states that is no worse. - Past Medical History (1) Atrial fibrillation Status: Chronic (2) COPD (chronic obstructive pulmonary disease) Status: Chronic (3) Chronic pain syndrome Status: Chronic Comment: follows with pain Management, Dr. HERNANDEZ (4) Chronic systolic (congestive) heart failure Status: Chronic (5) HLD (hyperlipidemia) Status: Chronic (6) HTN (hypertension) Status: Chronic (7) History of GI bleed Status: Chronic Comment: 08/09/2017 (8) History of aortic valve replacement Status: Chronic Comment: 03/27/1993: RED to LAD and 23mm [facility] History of coronary artery stent placement Status: Chronic Comment: 06/28/2011 prior to PTCA and BMS (3.0 mm X 18 mm long Integrity stent) to mid LAD, BMS to the mid distal CX (4.5 X 16mm Veriflex stent), and BMS to the proximal CX (3.5 X 15 mm Integrity stent) @ [facility] (10) Non-rheumatic tricuspid valve insufficiency Status: Chronic (11) S/P CABG x 1 Status: Chronic Comment: 03/27/1993: RED to LAD and 23mm [facility] Rachid Prosthetic AVR placed for severe per Dr. Darrell Shaw, [facility] (12) Secondary pulmonary arterial hypertension Status: Chronic (13) Spinal stenosis of lumbar region Status: Chronic Past Medical History - Allergies and Home Meds Allergies/Adverse Reactions: Allergies No Known Allergies Allergy (Verified 05/12/18 00:54) Primary Care Physician: Guillermo Pritchard MD [Primary Care Provider] - Surgical History: coronary bypass surgery, - - Mechanical aortic valve replacement, back surgeries, RLE ankle surgery recently. Lives: Alone Smoking Status: Current every day smoker - Family History Maternal Family History: Family History (Last Reviewed 04/07/18 @ 17:04 by Pancho Mantilla DO) Son CAD (coronary artery disease) Myocardial infarction Sudden cardiac Brother CAD (coronary artery disease) Sister CAD (coronary artery disease) Family History: Reports: Diabetes, Heart Disease, Hypertension Paternal Family History: Family History (Last Reviewed 04/07/18 @ 17:04 by Pancho Mantilla DO) Son CAD (coronary artery disease) Myocardial infarction Sudden cardiac Brother CAD (coronary artery disease) Sister CAD (coronary artery disease) Family History: Reports: Diabetes, Heart Disease, Hypertension Review of Systems General: Denies: Chills, Fever, Sweats Eyes: Denies: Visual changes - bilaterally, Diplopia Cardiovascular: Reports: Chest pain - left lower ribcage. Denies: Palpitations Respiratory: Denies: Dyspnea, Cough, Dyspnea on exertion Gastrointestinal: Reports: Abdominal pain. Denies: Nausea, Vomiting, Diarrhea, Melena, Hematochezia Genitourinary: Denies: Dysuria, Hematuria, Frequency Musculoskeletal: Reports: Extremity Pain - left ankle. Denies: Neck pain, Back pain Skin: Denies: Rash Neurological: Denies: Headache, Weakness, Numbness Physical Exam Vital Signs/Narrative: Vital Signs Temp Pulse Resp BP Pulse Ox 05/12/18 00:50 97.5 F L 66 18 134/71 H 96 Inital Vital Signs reviewed: Yes General: Well nourished, Well developed Head: Normocephalic, Atraumatic Eyes: Perrl, EOMI ENT: Moist mucous membranes, No rhinorrhea Neck: Supple, Nontender, - - FROM w/o difficulty or meningismus. Cardiovascular: Regular rate, Regular rhythm, No murmurs Respiratory: No distress, CTA bilaterally, Chest tenderness - left lower ant-lat ribcage. no crepitance or step-offs. Abdomen: Soft, Nondistended, Normal bowel sounds, Tender - diffusely, worse throughout left side. contusion left flank., Guarding. Negative for: Rebound tenderness Back: Nontender, Normal Inspection. Negative for: Spinal tenderness Extremities: Nontender, No edema Skin: Normal color, No rash, Trauma - contusion left flank. no hematoma. Neurological: Alert, Oriented x3, Cranial nerves II-XII grossly intact, Normal Strength, Normal Sensation Psychological: - - anxious. in pain. Diagnostic/Tx/Re-eval Impressions Abdomen/Pelvis CT 05/12/18 01:41 IMPRESSION: No contusions or lacerations involving any of the intra-abdominal organs all involving the abdominal wall. There are no acute fractures. 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 No acute appendicitis or diverticulitis Electronically Signed: Samson Sepulveda MD at 3:23 EDT Tel , Service support , Brain CT 05/12/18 01:41 IMPRESSION: No acute findings in the brain Electronically Signed: Samson Sepulveda MD at 3:04 EDT Tel , Service support , Chest CT 05/12/18 01:41 IMPRESSION: No evidence of lung contusions or lacerations. No rib fractures and no pneumothoraces. A 1.1 cm groundglass nodule in the right apex. A follow-up examination in 3 months is suggested Electronically Signed: Samson Sepulveda MD at 3:13 EDT Tel , Service support , 05/12/18 01:41 Abdomen/Pelvis without Cont [CT] Stat Brain/Head without Contrast [CT] Stat Chest without Contrast [CT] Stat Laboratory Results 05/12/18 05/12/18 05/12/18 02:04 02:04 02:04 WBC 4.7 RBC 4.33 L Hgb 12.8 L Hct 41.7 MCV 96.3 H MCH 29.6 MCHC 30.7 L RDW 14.7 H RDW Differential 52.0 H Plt Count 139 L MPV 10.3 Immature Gran % (Auto) 0.000 Neut % (Auto) 70.5 H Lymph % (Auto) 17.6 L [place] % (Auto) 9.4 Eos % (Auto) 1.9 Baso % (Auto) 0.6 Absolute Neuts (auto) 3.3 Absolute Lymphs (auto) 0.82 L Total Counted Not Reportable PT 32.6 H INR 3.2 Sodium 143 Potassium 3.6 Chloride 108 H Carbon Dioxide 31.0 Anion Gap 4 L BUN 20 H Creatinine 1.08 Estim Creat Clear Calc 56.33 Est GFR (MDRD) Af Amer 85 Est GFR (MDRD) Non-Af 70 BUN/Creatinine Ratio 18.5 Glucose 131 H Calcium 8.8 - Medical Decision Making Patient is pretty tender in his left abdomen and left chest wall, and is not the greatest historian so I chose to image all of this especially since he is on Coumadin, including his head. CT scanning shows no acute injuries in any of these areas. He does have a small nodule in the left lung which I discussed with him as well as follow-up imaging it was recommended by the radiologist. His INR is therapeutic around 3. His pain was controlled with a couple doses of morphine. He is able to stand and walk and is comfortable going home. He has Percocet left over from his surgery to use as needed for pain, they are comfortable with this plan. ED Disposition - Plan for ED Patient: Disposition: Home or Assisted Living Chief Complaint: Fall Diagnosis: Contusion of flank, Contusion of rib on left side Instructions: ED Mechanical Fall, ED Contusion Chest Wall Referrals: Guillermo Pritchard MD [Primary Care Provider] - 1 Week if not improving Additional Instructions: If you need something in addition to your Percocet for the pain, use ice over the affected area, not heat.
[2018-05-12] MEDS: Ondansetron 4 MG/2 ML Vial IV (02:04)
[2018-05-12] MEDS: 0.9% Normal Saline 1,000 ML 100 ML IV (02:04)
[2018-05-12] MEDS: Morphine 4 MG/ML Syringe IV ×2 (02:07→02:58)
[2018-05-12 02:16] LABS: Absolute Lymphocyte Count 0.82 X10^3/ul (0.83-4.51); Absolute Neutrophil Count 3.3 X10^3/uL (2.0-7.7); Basophil# 0.03 X10^3/uL; Basophil% 0.6 % (0-1); Eosinophil# 0.09 X10^3/uL; Eosinophils% 1.9 % (0-5); Hematocrit 41.7 % (40-54); Hemoglobin 12.8 g/dl (13.0-16.5); Lymphocyte # 0.82 X10^3/ul (4.0); Lymphocyte % 17.6 % (19-41); Mean Corp Hgb Conc 30.7 g/gl (32-36); Mean Corpuscular Hgb 29.6 pg (27.0-32.0); Mean Corpuscular Volume 96.3 fL (80-94); Mean Platelet Vol. 10.3 fl (6.2-12.0); Monocyte# 0.44 X10^3/uL; Monocyte% 9.4 % (0-10); Neutrophil # 3.28 X10^3/uL (2.7-7.7); Neutrophil % 70.5 % (47-70); Platelet Count 139 K/mm3 (150-450); RBC Distribution Width CV 14.7 % (11.6-14.6); Red Blood Count 4.33 M/mm3 (4.6-6.2); White Blood Count 4.7 K/mm3 (4.4-11.0)
[2018-05-12 02:20] LABS: POSITIVE COUNT NO; POSITIVE DIFFERENTIAL NO; POSITIVE MORPHOLOGY NO
[2018-05-12 02:27] LABS: International Normalized Ratio 3.2; Prothrombin Time (Protime)PT. 32.6 SECONDS (11.7-14.9)
[2018-05-12 02:46] LABS: Anion Gap 4 (5-15); BUN 20 mg/dL (7-18); BUN/Creat Ratio 18.5 RATIO (10-20); Calcium,Total 8.8 mg/dL (8.5-10.1); Chloride 108 mmol/L (98-107); Creatinine, Serum 1.08 mg/dL (0.70-1.30); EST Glomerular Filtration Rate 70 mL/min (>60); Est Glom Filt Rate - Afr Amer 85 mL/min (>60); Estimated Creatinine Clearance 56.33 ml/min; Glucose 131 mg/dL (74-106); Potassium 3.6 mmol/L (3.5-5.1); Sodium Level 143 mmol/L (136-145)
[2018-05-12 02:59] VITALS: BP 136/74; PULSE 66; RESP 18; O2SAT 96
[2018-05-12 04:17] LABS: Bacteria 0 SEEN /hpf (None Seen); Mucous, Urine 0 SEEN /hpf (<or=2+); Red Blood Cells-Urine 0 SEEN /hpf (0-5)
[2018-05-12 04:22] LABS: Color, Urine Yellow (Yellow); Glucose, Dipstick Normal (Normal); Ketone-Dipstick 5 mg/dl (Negative); Leukocyte Esterase-Dipstick 25 /ul (Negative); Nitrite-Dipstick Negative (Negative); Occult Blood-Urine 25 /ul (Negative); Protein-Dipstick 30 mg/dl (Negative); Urine Bilirubin Dipstick Negative (Negative); Urine Clarity Sl. Cloudy (Clear); Urine Urobilinogen 1 mg/dl (Normal)
[2018-05-12 04:30] LABS: Squamous Epithelial Cells - UA 0-5 SEEN /hpf (0-5); White Blood Cells 0-5 SEEN /hpf (0-5)
[2018-05-12 04:42] VITALS: BP 132/74; PULSE 60; RESP 18; O2SAT 93
== END 2018-05-12 04:44 | disposition home or self-care (01) ==
PROVIDERS: Emergency Provider Emergency Medicine; Family Provider Family Medicine; PCP Family Medicine
DX: S30.1XXA Contusion of abdominal wall, initial encounter (principal); S20.212A Contusion of left front wall of thorax, initial encounter; G89.4 Chronic pain syndrome; M48.061 Spinal stenosis, lumbar region without neurogenic claudication; I48.91 Unspecified atrial fibrillation; Z95.2 Presence of prosthetic heart valve; Z95.1 Presence of aortocoronary bypass graft; Z79.01 Long term (current) use of anticoagulants; Z79.891 Long term (current) use of opiate analgesic; W06.XXXA Fall from bed, initial encounter; Y93.89 Activity, other specified; Y92.003 Bedroom of unspecified non-institutional (private) residence as the place of occurrence of the external cause; Y99.8 Other external cause status
CPT/HCPCS: 70450; 71250; 74176; 80048; 81001; 85025; 85610; 96361; 96374; 96375; 96376; 99284; J7030; J2405

== ENCOUNTER 2018-05-25 16:59 | Inpatient (IN) | payer OTHER, MEDICARE, SELFPAY ==
[2018-05-25 17:00] VITALS: BP 132/67; PULSE 65; RESP 17; TEMP 36.8; O2SAT 96
[2018-05-25 17:01] VITALS: BP 112/56; PULSE 61; RESP 18; TEMP 36.8; O2SAT 97; BMI 26.5
--- NOTE | 2018-05-25 17:23 | ED.VISSUMM ---
- ER Visit Summary Date of Service: 05/25/18 Chief Complaint: Left ankle pain History of Present Illness: The patient is a 78 M presenting with left ankle pain. He had surgery per Dr. Villarreal 04/07/2018 for open reduction internal fixation of left trimalleolus ankle fracture. He has been doing well and is scheduled to see Dr. Villarreal on Tuesday. He states today he started having significant pain in his left ankle. He was wearing a boot and has been nonweightbearing. He had to take the boot off today due to pain. He denies any new injury. He is on Percocet and in pain management. Physical Examination: Vitals are stable. Patient is afebrile. Alert no acute distress. HEENT exam is unremarkable. Neck is supple. Lungs are clear and equal bilaterally. Heart is regular rate and rhythm. Abdomen is soft nontender nondistended. Extremities left ankle erythema and warmth, purulent drainage from lateral incision Skin is warm and dry. No focal neurologic deficit. Remainder of exam is unremarkable. Emergency Department Course and Treatment: Left ankle x-ray shows no acute process. CBC unremarkable. ESR 30, CRP 61.6. Chemistries normal except for BUN of 19. Wound culture was sent. Patient given morphine, Zofran IV. He was given vancomycin and Zosyn. Discussed with Dr. Hale and Dr. Rosario. Patient will be admitted. Disposition: Admission Impression: Left ankle wound infection This note was generated with [employer] dictation software. It may contain incorrect words, spelling, and punctuation that were not noted in review of the chart prior to signing ED Disposition - Plan for ED Patient: Chief Complaint: Lower Extremity Injury Referrals: Guillermo Pritchard MD [Primary Care Provider] -
[2018-05-25] MEDS: Ondansetron 4 MG/2 ML Vial IV (17:39)
[2018-05-25] MEDS: Morphine 4 MG/ML Syringe IV (17:39)
--- NOTE | 2018-05-25 17:45 | RAD_ITS ---
STUDY: X-RAY - LEFT ANKLE REASON FOR EXAM: Male, 78 years old. Left ankle infection. Prior ankle surgery in March. TECHNIQUE: 3 view(s) of the ankle. COMPARISON: None. FINDINGS: There is no acute fracture or dislocation. The patient is status post internal fixation of the fibula with lateral plate and screws, and pinning of the medial malleolus. Bones are demineralized. Soft tissues and bony structures are otherwise unremarkable. RAD/Ankle min 3 Views IMPRESSION: 1. No acute findings. 2. Old healed ankle fractures with internal fixation. Electronically Signed: Yanira Yanez MD at 18:20 EST Tel , Service support ,
[2018-05-25 18:04] LABS: Absolute Lymphocyte Count 0.99 X10^3/ul (0.83-4.51); Basophil# 0.03 X10^3/uL; Basophil% 0.4 % (0-1); Eosinophil# 0.06 X10^3/uL; Eosinophils% 0.9 % (0-5); Hemoglobin 11.9 g/dl (13.0-16.5); Lymphocyte # 0.99 X10^3/ul (4.0); Lymphocyte % 14.7 % (19-41); Mean Corp Hgb Conc 31.3 g/gl (32-36); Mean Corpuscular Hgb 29.2 pg (27.0-32.0); Mean Corpuscular Volume 93.4 fL (80-94); Mean Platelet Vol. 10.4 fl (6.2-12.0); Monocyte% 8.9 % (0-10); Neutrophil # 5.04 X10^3/uL (2.7-7.7); Neutrophil % 75.1 % (47-70); Platelet Count 214 K/mm3 (150-450); RBC Distribution Width CV 14.4 % (11.6-14.6); RBC Distribution Width SD 48.8 fl (35.1-43.9); Red Blood Count 4.07 M/mm3 (4.6-6.2); White Blood Count 6.7 K/mm3 (4.4-11.0)
--- NOTE | 2018-05-25 18:08 | ED.RN ---
WOUND CULTURE OBTAINED PER DR CASTILLO
[2018-05-25 18:14] LABS: Anion Gap 5 (5-15); BUN 19 mg/dL (7-18); BUN/Creat Ratio 17.8 RATIO (10-20); Calcium,Total 8.9 mg/dL (8.5-10.1); Chloride 104 mmol/L (98-107); Creatinine, Serum 1.07 mg/dL (0.70-1.30); EST Glomerular Filtration Rate 71 mL/min (>60); Est Glom Filt Rate - Afr Amer 86 mL/min (>60); Estimated Creatinine Clearance 56.85 ml/min; Glucose 97 mg/dL (74-106); Potassium 3.9 mmol/L (3.5-5.1); Sodium Level 141 mmol/L (136-145)
[2018-05-25 18:16] LABS: POSITIVE COUNT NO; POSITIVE DIFFERENTIAL NO; POSITIVE MORPHOLOGY NO
[2018-05-25 18:27] LABS: Erythrocyte Sedimentation Rate 30 mm/hr (0-20)
[2018-05-25 19:31] VITALS: BMI 26.5
[2018-05-25] MEDS: Piperacil/Tazobactam 3.375 GM/50 ML ML IV (19:43)
[2018-05-25] MEDS: Vancomycin IV 1,000 MG/200 ML BAG 200 MG IV (19:43)
[2018-05-25 20:10] VITALS: BP 122/75; PULSE 65; RESP 14; O2SAT 98
--- NOTE | 2018-05-25 20:15 | PCM.HP.STD ---
Problem List (1) Trimalleolar fracture of ankle, closed Status: Chronic (2) Non-rheumatic tricuspid valve insufficiency Status: Chronic (3) Secondary pulmonary arterial hypertension Status: Chronic (4) Chronic systolic (congestive) heart failure Status: Chronic (5) Ischemic cardiomyopathy Status: Chronic (6) History of coronary artery stent placement Status: Chronic Comment: 06/28/2011 prior to PTCA and BMS (3.0 mm X 18 mm long Integrity stent) to mid LAD, BMS to the mid distal CX (4.5 X 16mm Veriflex stent), and BMS to the proximal CX (3.5 X 15 mm Integrity stent) @ [facility] (7) Atherosclerotic heart disease of [place] coronary artery without angina pectoris Status: Chronic Comment: 03/27/1993: RED to LAD (CABG X1 along with AVR, [facility]):06/28/2011 prior to PTCA and BMS to mid LAD, BMS to the mid distal CX, and BMS to the proximal CX @ [facility] (8) History of aortic valve replacement Status: Chronic Comment: 03/27/1993: RED to LAD and 23mm [facility] Mechanical AVR placed for severe per Dr. Darrell Shaw [facility] (9) S/P CABG x 1 Status: Chronic Comment: 03/27/1993: RED to LAD and 23mm [facility] Rachid Prosthetic AVR placed for severe per Dr. Darrell Shaw [facility] (10) COPD (chronic obstructive pulmonary disease) Status: Chronic Qualifiers: COPD type: unspecified COPD (11) Atrial fibrillation Status: Chronic Qualifiers: Atrial fibrillation type: paroxysmal (12) HLD (hyperlipidemia) Status: Chronic Qualifiers: Hyperlipidemia type: unspecified (13) HTN (hypertension) Status: Chronic Qualifiers: Hypertension type: essential hypertension (14) Tobacco use disorder Status: Chronic (15) Chronic pain syndrome Status: Chronic Comment: follows with pain ManagementDr. HERNANDEZ History of Present Illness Date of Admission: 05/25/18 Chief Complaint: L ankle redness, pain, mild edema, incisional discharge The patient is a 78 y/o M w/ PMHx: PAF, Ischemic Cardiomyopathy, Chronic Systolic CHF, Chronic COPD, HTN, HLD, CAD s/p CABG, Valvular Heart Disease s/p AVR (mechanical, Fe deficiency anemia, Chronic pain syndrome following with pain management, Tobacco use who presents to the [facility] ED on 05/25/18 with history of onset of day of ED presentation lateral L ankle s/p 04/07/2018 for open reduction internal fixation of left trimalleolus ankle fracture per Dr. Villarreal onset L lateral incision erythema, edema, pain and purulent drainage with chills. He notes he been well prior to this and had upcoming visit with Dr. reynaga on Tuesday. He states that he has been wearing a boot and has been compliant with nonweightbearing status. The ED workup included T 98.2, HR 65, BP 132/67, RR 17, 96% on RA, CBC with WBC 6.7, hemoglobin 11.9, platelet 214 with mild left shift, ESR 30, BMP with BUN/creatinine 19/1.07, CRP 61.6, blood culture x2 pending per ED, wound culture of the left ankle obtained and pending per ED, pain film of the ankle with no acute findings with old healed ankle fractures with internal fixation present. In the ED patient administered gentamicin, Zosyn, Zofran, morphine. Past Medical History Past Medical History (Chronic Problems): Chronic Problems (Last Reviewed 04/07/18 @ 17:04 by Pancho Mantilla DO) Intractable pain (Chronic) Trimalleolar fracture of ankle, closed (Chronic) Non-rheumatic tricuspid valve insufficiency (Chronic) Secondary pulmonary arterial hypertension (Chronic) Chronic systolic (congestive) heart failure (Chronic) Ischemic cardiomyopathy (Chronic) History of coronary artery stent placement (Chronic) 06/28/2011 prior to PTCA and BMS (3.0 mm X 18 mm long Integrity stent) to mid LAD, BMS to the mid distal CX (4.5 X 16mm Veriflex stent), and BMS to the proximal CX (3.5 X 15 mm Integrity stent) @ [facility] Atherosclerotic heart disease of [place] coronary artery without angina pectoris (Chronic) 03/27/1993: RED to LAD (CABG X1 along with AVR, [facility]):06/28/2011 prior to PTCA and BMS to mid LAD, BMS to the mid distal CX, and BMS to the proximal CX @ [facility] History of left heart catheterization (Chronic) 03/27/1993 [facility] prior to CABG X1 and AVR; 06/28/2011 prior to PTCA and BMS to mid LAD, BMS to the mid distal CX, and BMS to the proximal CX @ [facility] History of aortic valve replacement (Chronic) 03/27/1993: RED to LAD and 23mm [facility] Rachid Mechanical AVR placed for severe per Dr. Darrell Shaw, [facility] S/P CABG x 1 (Chronic) 03/27/1993: RED to LAD and 23mm [facility] 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 HERNANDEZ Medical History: Medical History (Last Reviewed 04/07/18 @ 17:04 by Pancho Mantilla DO) Non-rheumatic tricuspid valve insufficiency (Chronic) I36.1 Secondary pulmonary arterial hypertension (Chronic) I27.21 Chronic systolic (congestive) heart failure (Chronic) I50.22 Ischemic cardiomyopathy (Chronic) I25.5 Atherosclerotic heart disease of [place] coronary artery without angina pectoris (Chronic) I25.10 03/27/1993: RED to LAD (CABG X1 along with AVR, [facility]):06/28/2011 prior to PTCA and BMS to mid LAD, BMS to the mid distal CX, and BMS to the proximal CX @ [facility]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 HERNANDEZ Uncontrolled pain (Inactive) R52 Allergies No Known Allergies Allergy (Verified 05/25/18 16:59) Home Medications: Ambulatory Orders Medication Instructions Recorded Rosuvastatin Calcium [Crestor] 40 mg PO QHS 07/15/13 Ferrous Sulfate 325 mg PO BIDCM 09/13/15 Albuterol Sulfate [Proair 1 puff INHALATION Q4H PRN PRN 09/25/15 Respiclick] Cholecalciferol (VIT D3) [Vitamin 2,000 unit PO DAILY 09/25/15 D3] Nitroglycerin [Nitrostat] 0.4 mg SUBLINGUAL Q5M PRN #30 tab 09/26/15 Aspirin E.C. [Ecotrin] 81 mg PO DAILY@0800 06/24/16 Folic Acid 1 mg PO QHS 06/24/16 Ipratropium/Albuterol Sulfate 3 ml INHALATION Q4H PRN PRN #30 11/02/16 [Duoneb] ampul.neb Metoprolol Tartrate [Lopressor 12.5 mg PO BID 01/20/17 (beta zach)] Docusate Sodium [Colace] 200 mg PO BID PRN PRN cap 01/27/17 Budesonide/Formoterol 160/4.5 2 puff INHALATION BID 02/08/17 [Symbicort 160/4.5 Mcg Inhaler (SP)] Furosemide [Lasix] 40 mg PO DAILY 02/08/17 isosorbide mononitrate ER 30 mg 30 mg PO QAM 11/21/17 tablet,extended release 24 hr pregabalin 75 mg capsule 75 mg PO BID 11/21/17 pantoprazole 40 mg tablet,delayed 40 mg PO BID tab 01/02/18 release warfarin 5 mg tablet 5 mg PO FULLER tab 01/02/18 warfarin 7.5 mg tablet 7.5 mg PO MOTUWETHFRSA tab 01/02/18 Enoxaparin [Lovenox] 80 mg SC Q12@0600,1800 #14 syringe 04/10/18 Surgical History: Surgical History (Last Reviewed 04/07/18 @ 17:04 by Pancho Mantilla DO) History of coronary artery stent placement (Chronic) Z95.5 06/28/2011 prior to PTCA and BMS (3.0 mm X 18 mm long Integrity stent) to mid LAD, BMS to the mid distal CX (4.5 X 16mm Veriflex stent), and BMS to the proximal CX (3.5 X 15 mm Integrity stent) @ [facility] History of left heart catheterization (Chronic) Z98.890 03/27/1993 [facility] prior to CABG X1 and AVR; 06/28/2011 prior to PTCA and BMS to mid LAD, BMS to the mid distal CX, and BMS to the proximal CX @ [facility] History of aortic valve replacement (Chronic) Z95.2 03/27/1993: RED to LAD and 23mm [facility] Rachid Mechanical AVR placed for severe per Dr. Darrell Shaw, [facility] S/P CABG x 1 (Chronic) Z95.1 03/27/1993: RED to LAD and 23mm [facility] Rachid Prosthetic AVR placed for severe per Dr. Darrell Shaw, [facility] Surgical History: coronary bypass surgery, - - Mechanical aortic valve replacement, back surgeries, RLE ankle surgery recently. Psychiatric History: No pertinent psych hx Lives: Alone Smoking Status: Current every day smoker - 3/4 ppd. Tobacco Use: Cigarettes Alcohol: None Drugs: None - *Family History Maternal Family History: Family History (Last Reviewed 04/07/18 @ 17:04 by Pancho Mantilla DO) Son CAD (coronary artery disease) Myocardial infarction Sudden cardiac Brother CAD (coronary artery disease) Sister CAD (coronary artery disease) History Items: Diabetes, Heart Disease, Hypertension Paternal Family History: Family History (Last Reviewed 04/07/18 @ 17:04 by Pancho Mantilla DO) Son CAD (coronary artery disease) Myocardial infarction Sudden cardiac Brother CAD (coronary artery disease) Sister CAD (coronary artery disease) History Items: Diabetes, Heart Disease, Hypertension Review of Systems Constitutional: Reports: Chills, Malaise, Weakness, Fatigue. Denies: Fever, Weight Change HEENT: Denies: Head Aches, Sinus Congestion, Sinus Drainage Cardiovascular: Denies: Chest Pain, Palpitations Respiratory: Reports: Shortness of breath upon exertion. Denies: Cough, Shortness of breath at rest, Sputum production Gastrointestinal: Denies: Abdominal Pain, Nausea, Vomiting Genitourinary: Denies: Dysuria Musculoskeletal: Reports: Joint Pain, Joint stiffness, Joint swelling, Joint Tenderness Skin: Reports: Skin Changes, Wounds. Denies: Rash Neurological: Denies: Numbness, Tingling, Focal weakness Psychiatric: Denies: Anxiety, Depression, Homicidal Ideations, Suicidal Ideations Hematologic/ Lymphatic: Reports: Anemia, Easy Bruising, Easy Bleeding VTE Information - Inpt Only VTE Present on Admission: No VTE Mechan Device Prophylaxis: SCD's VTE Pharm Prophylaxis ordered?: No Reason prophylaxis not ordered:: Medical Contraindication - INR pending, on coumadin. Subjective: Seated upright in the ED bed, fatigued, NAD, noted TTP L ankle. Objective: Physical Examination: General: awake, alert, oriented x 3 and cooperative, seated upright in the ED bed in no apparent distress. Skin: normal color, turgor, no icterus, cyanosis except notable L ankle incision laterally w/ erythema, edema to the region, severe TTP, no current drainage but was purulent drainage prior obtained per ED for wound Cx. HEENT: AT/NC, EOMI, PERRLA, mildly dry MM, no carotid bruits or JVD noted. Lungs: Diminished BS diffusely, > bases, moderate effort, no rales, ronchi or wheezing. Heart: Regular rate and rhythm; no gallop, rub audible, SM, AVR mechanical. Abdomen: soft, NTTP, ND, normal BS, no HSM. Extremities: no cyanosis, clubbing, see skin. Neurological: patient awake, alert, oriented x 3; cognitive function intact; pupils equally reactive to light and accomodation; cranial nerves II-XII grossly normal, moving all 4 extremities, no focal deficits, strength moderately to severely globally decreased secondary to acute presentation. Psychiatric: affect appears normal, no acute evidence of depressive or anxiety feelings. - Physical Exam Vital Signs Temp Pulse Resp BP Pulse Ox 98.2 F 65 14 122/75 H 98 05/25/18 17:01 05/25/18 20:10 05/25/18 20:10 05/25/18 20:10 05/25/18 20:10 Oxygen Delivery Method Room Air Weight: 185 lb Body Mass Index (BMI) 26.5 Laboratory Tests Past 24 Hrs 05/25/18 05/25/18 17:40 17:40 WBC 6.7 RBC 4.07 L Hgb 11.9 L Hct 38.0 L MCV 93.4 MCH 29.2 MCHC 31.3 L RDW 14.4 RDW Differential 48.8 H Plt Count 214 MPV 10.4 Immature Gran % (Auto) 0.000 Neut % (Auto) 75.1 H Lymph % (Auto) 14.[address] [place] % (Auto) 8.9 Eos % (Auto) 0.9 Baso % (Auto) 0.4 Absolute Neuts (auto) 5.0 Absolute Lymphs (auto) 0.99 Total Counted Not Reportable ESR 30 H Sodium 141 Potassium 3.9 Chloride 104 Carbon Dioxide 32.0 Anion Gap 5 BUN 19 H Creatinine 1.07 Estim Creat Clear Calc 56.85 Est GFR (MDRD) Af Amer 86 Est GFR (MDRD) Non-Af 71 BUN/Creatinine Ratio 17.8 Glucose 97 Calcium 8.9 C-React Prot Ext Range 61.60 H Assessment/Plan All Active Problems (Last Reviewed 04/07/18 @ 17:04 by Pancho Mantilla DO) Closed left ankle fracture (Acute) Left ankle pain (Acute) Risk for falls (Acute) GI bleed (Resolved) [place] (acute kidney injury) (Resolved) Acute exacerbation of chronic obstructive pulmonary disease (Resolved) Bradycardia (Resolved) COPD with acute exacerbation (Resolved) Gram-negative pneumonia (Resolved) History of colonoscopy (Resolved) History of endoscopy (Resolved) Hypotension (Resolved) Hypoxia (Resolved) Subconjunctival hematoma (Resolved) The patient is a 78 y/o M w/ PMHx: PAF, Ischemic Cardiomyopathy, Chronic Systolic CHF, Chronic COPD, HTN, HLD, CAD s/p CABG, Valvular Heart Disease s/p AVR (mechanical, Fe deficiency anemia, Chronic pain syndrome following with pain management, Tobacco use who presents to the [facility] ED on 05/25/18 with history of onset of day of ED presentation lateral L ankle s/p 04/07/2018 for open reduction internal fixation of left trimalleolus ankle fracture per Dr. Villarreal onset L lateral incision erythema, edema, pain and purulent drainage with chills. (1) LLE Incisional Cellulitis, Purulent drainage s/p L Ankle Fx w/ ORIF: Will admit to [facility], maintain on IV vanc and zosyn, pending ED Wound Cx, will add Wound MRSA PCR, plan repeat CBC in AM, continue affected extremity elevation above heart when seated and in bed, monitor erythema outline with VS checks. Podiatry consulted and planned AM evaluation. No plans OR currently pending Dr. Villarreal evaluation. INR pending as anticoagulated as well which will need addressed prior as patient will need transitioned to heparin drip in the interim given mechanical valve status. (2) Valvular Heart Disease: s/p AVR, mechanical, INR pending upon admission, hold coumadin pending this level, given history will need to continue anticoagulation but may consider transition to heparin drip for possible OR needs. (3) Chronic COPD: Will maintain on oxygen with wean as tolerated to room air/home oxygen supplementation, continue ATC duonebs, PRN albuterol, HOB, IS parameters. (4) PAF: Holding coumadin as noted, INR pending, continue BB therapy. (5) Chronic iron deficiency anemia: Admission hemoglobin 11.9, stable, continue iron supplementation. (6) Hypertension: Continue home regimen including Lasix, metoprolol, isosorbide, PRN hydralazine. (7) Hyperlipidemia: Continue home statin regimen. (8) Tobacco Abuse: Encouraged cessation, inpatient consultation per RT, NR if desired. (9) CAD: s/p CABG x 1, maintain on asa, holding coumadin as noted pending admission INR, continue statin, BB therapy. (10) Ischemic Cardiomyopathy, Chronic Systolic CHF: Maintain on asa, holding coumadin as noted, continue statin, BB, lasix, not on NABIL/ARB. (11) GERD: Continue home PPI. (12) DVT prophylaxis: SCDs, pending INR, hold coumadin regimen in case of planned OR needs, likely not 05/26/[address] Hale. Code Visit Inpatient E&M: 82584 Init Hosp L3
[2018-05-25 20:24] VITALS: BMI 23.0
[2018-05-25 20:25] VITALS: BP 130/61; PULSE 70; RESP 18; TEMP 36.6; O2SAT 96
[2018-05-25 20:28] LABS: International Normalized Ratio 2.9; Prothrombin Time (Protime)PT. 30.8 SECONDS (11.7-14.9)
--- NOTE | 2018-05-25 20:34 | HP.PCM_ITS ---
Problem List (1) Trimalleolar fracture of ankle, closed Status: Chronic (2) Non-rheumatic tricuspid valve insufficiency Status: Chronic (3) Secondary pulmonary arterial hypertension Status: Chronic (4) Chronic systolic (congestive) heart failure Status: Chronic (5) Ischemic cardiomyopathy Status: Chronic (6) History of coronary artery stent placement Status: Chronic Comment: 06/28/2011 prior to PTCA and BMS (3.0 mm X 18 mm long Integrity stent) to mid LAD, BMS to the mid distal CX (4.5 X 16mm Veriflex stent), and BMS to the proximal CX (3.5 X 15 mm Integrity stent) @ [facility] (7) Atherosclerotic heart disease of [place] coronary artery without angina pectoris Status: Chronic Comment: 03/27/1993: RED to LAD (CABG X1 along with AVR, [facility]):06/28/2011 prior to PTCA and BMS to mid LAD, BMS to the mid distal CX, and BMS to the proximal CX @ [facility] (8) History of aortic valve replacement Status: Chronic Comment: 03/27/1993: RED to LAD and 23mm [facility] Mechanical AVR placed for severe per Dr. Darrell Shaw [facility] (9) S/P CABG x 1 Status: Chronic Comment: 03/27/1993: RED to LAD and 23mm [facility] Rachid Prosthetic AVR placed for severe per Dr. Darrell Shaw [facility] (10) COPD (chronic obstructive pulmonary disease) Status: Chronic Qualifiers: COPD type: unspecified COPD (11) Atrial fibrillation Status: Chronic Qualifiers: Atrial fibrillation type: paroxysmal (12) HLD (hyperlipidemia) Status: Chronic Qualifiers: Hyperlipidemia type: unspecified (13) HTN (hypertension) Status: Chronic Qualifiers: Hypertension type: essential hypertension (14) Tobacco use disorder Status: Chronic (15) Chronic pain syndrome Status: Chronic Comment: follows with pain ManagementDr. HERNANDEZ History of Present Illness Date of Admission: 05/25/18 Chief Complaint: L ankle redness, pain, mild edema, incisional discharge The patient is a 78 y/o M w/ PMHx: PAF, Ischemic Cardiomyopathy, Chronic Systolic CHF, Chronic COPD, HTN, HLD, CAD s/p CABG, Valvular Heart Disease s/p AVR (mechanical, Fe deficiency anemia, Chronic pain syndrome following with pain management, Tobacco use who presents to the [facility] ED on 05/25/18 with history of onset of day of ED presentation lateral L ankle s/p 04/07/2018 for open reduction internal fixation of left trimalleolus ankle fracture per Dr. Villarreal onset L lateral incision erythema, edema, pain and purulent drainage with chills. He notes he been well prior to this and had upcoming visit with Dr. reynaga on Tuesday. He states that he has been wearing a boot and has been compliant with nonweightbearing status. The ED workup included T 98.2, HR 65, BP 132/67, RR 17, 96% on RA, CBC with WBC 6.7, hemoglobin 11.9, platelet 214 with mild left shift, ESR 30, BMP with BUN/creatinine 19/1.07, CRP 61.6, blood culture x2 pending per ED, wound culture of the left ankle obtained and pending per ED, pain film of the ankle with no acute findings with old healed ankle fractures with internal fixation present. In the ED patient administered gentamicin, Zosyn, Zofran, morphine. Past Medical History Past Medical History (Chronic Problems): Chronic Problems (Last Reviewed 04/07/18 @ 17:04 by Pancho Mantilla DO) Intractable pain (Chronic) Trimalleolar fracture of ankle, closed (Chronic) Non-rheumatic tricuspid valve insufficiency (Chronic) Secondary pulmonary arterial hypertension (Chronic) Chronic systolic (congestive) heart failure (Chronic) Ischemic cardiomyopathy (Chronic) History of coronary artery stent placement (Chronic) 06/28/2011 prior to PTCA and BMS (3.0 mm X 18 mm long Integrity stent) to mid LAD, BMS to the mid distal CX (4.5 X 16mm Veriflex stent), and BMS to the proximal CX (3.5 X 15 mm Integrity stent) @ [facility] Atherosclerotic heart disease of [place] coronary artery without angina pectoris (Chronic) 03/27/1993: RED to LAD (CABG X1 along with AVR, [facility]):06/28/2011 prior to PTCA and BMS to mid LAD, BMS to the mid distal CX, and BMS to the proximal CX @ [facility] History of left heart catheterization (Chronic) 03/27/1993 [facility] prior to CABG X1 and AVR; 06/28/2011 prior to PTCA and BMS to mid LAD, BMS to the mid distal CX, and BMS to the proximal CX @ [facility] History of aortic valve replacement (Chronic) 03/27/1993: RED to LAD and 23mm [facility] Rachid Mechanical AVR placed for severe per Dr. Darrell Shaw, [facility] S/P CABG x 1 (Chronic) 03/27/1993: RED to LAD and 23mm [facility] Rachid Prosthetic AVR placed for severe per Dr. 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 HERNANDEZ Medical History: Medical History (Last Reviewed 04/07/18 @ 17:04 by Pancho Mantilla DO) Non-rheumatic tricuspid valve insufficiency (Chronic) I36.1 Secondary pulmonary arterial hypertension (Chronic) I27.21 Chronic systolic (congestive) heart failure (Chronic) I50.22 Ischemic cardiomyopathy (Chronic) I25.5 Atherosclerotic heart disease of [place] coronary artery without angina pectoris (Chronic) I25.10 03/27/1993: RED to LAD (CABG X1 along with AVR, [facility]):06/28/2011 prior to PTCA and BMS to mid LAD, BMS to the mid distal CX, and BMS to the proximal CX @ [facility] 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 HERNANDEZ Uncontrolled pain (Inactive) R52 Allergies No Known Allergies Allergy (Verified 05/25/18 16:59) Home Medications: Ambulatory Orders Medication Instructions Recorded Rosuvastatin Calcium [Crestor] 40 mg PO QHS 07/15/13 Ferrous Sulfate 325 mg PO BIDCM 09/13/15 Albuterol Sulfate [Proair 1 puff INHALATION Q4H PRN PRN 09/25/15 Respiclick] Cholecalciferol (VIT D3) [Vitamin 2,000 unit PO DAILY 09/25/15 D3] Nitroglycerin [Nitrostat] 0.4 mg SUBLINGUAL Q5M PRN #30 tab 09/26/15 Aspirin E.C. [Ecotrin] 81 mg PO DAILY@0800 06/24/16 Folic Acid 1 mg PO QHS 06/24/16 Ipratropium/Albuterol Sulfate 3 ml INHALATION Q4H PRN PRN #30 11/02/16 [Duoneb] ampul.neb Metoprolol Tartrate [Lopressor 12.5 mg PO BID 01/20/17 (beta zach)] Docusate Sodium [Colace] 200 mg PO BID PRN PRN cap 01/27/17 Budesonide/Formoterol 160/4.5 2 puff INHALATION BID 02/08/17 [Symbicort 160/4.5 Mcg Inhaler (SP)] Furosemide [Lasix] 40 mg PO DAILY 02/08/17 isosorbide mononitrate ER 30 mg 30 mg PO QAM 11/21/17 tablet,extended release 24 hr pregabalin 75 mg capsule 75 mg PO BID 11/21/17 pantoprazole 40 mg tablet,delayed 40 mg PO BID tab 01/02/18 release warfarin 5 mg tablet 5 mg PO FULLER tab 01/02/18 warfarin 7.5 mg tablet 7.5 mg PO MOTUWETHFRSA tab 01/02/18 Enoxaparin [Lovenox] 80 mg SC Q12@0600,1800 #14 syringe 04/10/18 Surgical History: Surgical History (Last Reviewed 04/07/18 @ 17:04 by Pancho Mantilla DO) History of coronary artery stent placement (Chronic) Z95.5 06/28/2011 prior to PTCA and BMS (3.0 mm X 18 mm long Integrity stent) to mid LAD, BMS to the mid distal CX (4.5 X 16mm Veriflex stent), and BMS to the proximal CX (3.5 X 15 mm Integrity stent) @ [facility] History of left heart catheterization (Chronic) Z98.890 03/27/1993 [facility] prior to CABG X1 and AVR; 06/28/2011 prior to PTCA and BMS to mid LAD, BMS to the mid distal CX, and BMS to the proximal CX @ [facility] History of aortic valve replacement (Chronic) Z95.2 03/27/1993: RED to LAD and 23mm [facility] Rachid Mechanical AVR placed for severe per Dr. Darrell Shaw, [facility] S/P CABG x 1 (Chronic) Z95.1 03/27/1993: RED to LAD and 23mm [facility] Rachid Prosthetic AVR placed for severe per Dr. Darrell Shaw, [facility] Surgical History: coronary bypass surgery, - - Mechanical aortic valve replacement, back surgeries, RLE ankle surgery recently. Psychiatric History: No pertinent psych hx Lives: Alone Smoking Status: Current every day smoker - 3/4 ppd. Tobacco Use: Cigarettes Alcohol: None Drugs: None - *Family History Maternal Family History: Family History (Last Reviewed 04/07/18 @ 17:04 by Pancho Mantilla DO) Son CAD (coronary artery disease) Myocardial infarction Sudden cardiac Brother CAD (coronary artery disease) Sister CAD (coronary artery disease) History Items: Diabetes, Heart Disease, Hypertension Paternal Family History: Family History (Last Reviewed 04/07/18 @ 17:04 by Pancho Mantilla DO) Son CAD (coronary artery disease) Myocardial infarction Sudden cardiac Brother CAD (coronary artery disease) Sister CAD (coronary artery disease) History Items: Diabetes, Heart Disease, Hypertension Review of Systems Constitutional: Reports: Chills, Malaise, Weakness, Fatigue. Denies: Fever, Weight Change HEENT: Denies: Head Aches, Sinus Congestion, Sinus Drainage Cardiovascular: Denies: Chest Pain, Palpitations Respiratory: Reports: Shortness of breath upon exertion. Denies: Cough, Shortness of breath at rest, Sputum production Gastrointestinal: Denies: Abdominal Pain, Nausea, Vomiting Genitourinary: Denies: Dysuria Musculoskeletal: Reports: Joint Pain, Joint stiffness, Joint swelling, Joint Tenderness Skin: Reports: Skin Changes, Wounds. Denies: Rash Neurological: Denies: Numbness, Tingling, Focal weakness Psychiatric: Denies: Anxiety, Depression, Homicidal Ideations, Suicidal Ideations Hematologic/ Lymphatic: Reports: Anemia, Easy Bruising, Easy Bleeding VTE Information - Inpt Only VTE Present on Admission: No VTE Mechan Device Prophylaxis: SCD's VTE Pharm Prophylaxis ordered?: No Reason prophylaxis not ordered:: Medical Contraindication - INR pending, on coumadin. Subjective: Seated upright in the ED bed, fatigued, NAD, noted TTP L ankle. Objective: Physical Examination: General: awake, alert, oriented x 3 and cooperative, seated upright in the ED bed in no apparent distress. Skin: normal color, turgor, no icterus, cyanosis except notable L ankle incision laterally w/ erythema, edema to the region, severe TTP, no current drainage but was purulent drainage prior obtained per ED for wound Cx. HEENT: AT/NC, EOMI, PERRLA, mildly dry MM, no carotid bruits or JVD noted. Lungs: Diminished BS diffusely, > bases, moderate effort, no rales, ronchi or wheezing. Heart: Regular rate and rhythm; no gallop, rub audible, SM, AVR mechanical. Abdomen: soft, NTTP, ND, normal BS, no HSM. Extremities: no cyanosis, clubbing, see skin. Neurological: patient awake, alert, oriented x 3; cognitive function intact; pupils equally reactive to light and accomodation; cranial nerves II-XII grossly normal, moving all 4 extremities, no focal deficits, strength moderately to severely globally decreased secondary to acute presentation. Psychiatric: affect appears normal, no acute evidence of depressive or anxiety feelings. - Physical Exam Vital Signs Temp Pulse Resp BP Pulse Ox 98.2 F 65 14 122/75 H 98 05/25/18 17:01 05/25/18 20:10 05/25/18 20:10 05/25/18 20:10 05/25/18 20:10 Oxygen Delivery Method Room Air Weight: 185 lb Body Mass Index (BMI) 26.5 Laboratory Tests Past 24 Hrs 05/25/18 05/25/18 17:40 17:40 WBC 6.7 RBC 4.07 L Hgb 11.9 L Hct 38.0 L MCV 93.4 MCH 29.2 MCHC 31.3 L RDW 14.4 RDW Differential 48.8 H Plt Count 214 MPV 10.4 Immature Gran % (Auto) 0.000 Neut % (Auto) 75.1 H Lymph % (Auto) 14.7 L Coleman % (Auto) 8.9 Eos % (Auto) 0.9 Baso % (Auto) 0.4 Absolute Neuts (auto) 5.0 Absolute Lymphs (auto) 0.99 Total Counted Not Reportable ESR 30 H Sodium 141 Potassium 3.9 Chloride 104 Carbon Dioxide 32.0 Anion Gap 5 BUN 19 H Creatinine 1.07 Estim Creat Clear Calc 56.85 Est GFR (MDRD) Af Amer 86 Est GFR (MDRD) Non-Af 71 BUN/Creatinine Ratio 17.8 Glucose 97 Calcium 8.9 C-React Prot Ext Range 61.60 H Assessment/Plan All Active Problems (Last Reviewed 04/07/18 @ 17:04 by Pancho Mantilla DO) Closed left ankle fracture (Acute) Left ankle pain (Acute) Risk for falls (Acute) GI bleed (Resolved) [place] (acute kidney injury) (Resolved) Acute exacerbation of chronic obstructive pulmonary disease (Resolved) Bradycardia (Resolved) COPD with acute exacerbation (Resolved) Gram-negative pneumonia (Resolved) History of colonoscopy (Resolved) History of endoscopy (Resolved) Hypotension (Resolved) Hypoxia (Resolved) Subconjunctival hematoma (Resolved) The patient is a 78 y/o M w/ PMHx: PAF, Ischemic Cardiomyopathy, Chronic Systolic CHF, Chronic COPD, HTN, HLD, CAD s/p CABG, Valvular Heart Disease s/p AVR (mechanical, Fe deficiency anemia, Chronic pain syndrome following with pain management, Tobacco use who presents to the [facility] ED on 05/25/18 with history of onset of day of ED presentation lateral L ankle s/p 04/07/2018 for open reduction internal fixation of left trimalleolus ankle fracture per Dr. Villarreal onset L lateral incision erythema, edema, pain and purulent drainage with chills. (1) LLE Incisional Cellulitis, Purulent drainage s/p L Ankle Fx w/ ORIF: Will admit to [facility], maintain on IV vanc and zosyn, pending ED Wound Cx, will add Wound MRSA PCR, plan repeat CBC in AM, continue affected extremity elevation above heart when seated and in bed, monitor erythema outline with VS checks. Podiatry consulted and planned AM evaluation. No plans OR currently pending Dr. Villarreal evaluation. INR pending as anticoagulated as well which will need addressed prior as patient will need transitioned to heparin drip in the interim given mechanical valve status. (2) Valvular Heart Disease: s/p AVR, mechanical, INR pending upon admission, hold coumadin pending this level, given history will need to continue anticoagulation but may consider transition to heparin drip for possible OR needs. (3) Chronic COPD: Will maintain on oxygen with wean as tolerated to room air/home oxygen supplementation, continue ATC duonebs, PRN albuterol, HOB, IS parameters. (4) PAF: Holding coumadin as noted, INR pending, continue BB therapy. (5) Chronic iron deficiency anemia: Admission hemoglobin 11.9, stable, continue iron supplementation. (6) Hypertension: Continue home regimen including Lasix, metoprolol, isosorbide, PRN hydralazine. (7) Hyperlipidemia: Continue home statin regimen. (8) Tobacco Abuse: Encouraged cessation, inpatient consultation per RT, NR if desired. (9) CAD: s/p CABG x 1, maintain on asa, holding coumadin as noted pending admission INR, continue statin, BB therapy. (10) Ischemic Cardiomyopathy, Chronic Systolic CHF: Maintain on asa, holding coumadin as noted, continue statin, BB, lasix, not on NABIL/ARB. (11) GERD: Continue home PPI. (12) DVT prophylaxis: SCDs, pending INR, hold coumadin regimen in case of planned OR needs, likely not 05/26/[address] Hale. Code Visit Inpatient E&M: 64744 Init Hosp L3
--- NOTE | 2018-05-25 21:19 | PCM.HOSP.N ---
Hospitalist Note INR reviewed. INR is 2.9. Hold the Coumadin and PT/INR ordered for tomorrow a.m. Depending upon the INR level and proposed date of surgery, heparin drip can be started tomorrow as a bridging as the patient has mechanical aortic valve. Currently INR is therapeutic.
[2018-05-25 22:06] VITALS: PULSE 70
[2018-05-25] MEDS: Metoprolol Tartrate 25 MG Tablet 12.5 MG PO (22:06)
[2018-05-25] MEDS: Folic Acid 1 MG Tablet PO (22:06)
[2018-05-25] MEDS: Pantoprazole Sodium 40 MG Tablet PO (22:06)
[2018-05-25] MEDS: Atorvastatin Calcium 80 MG Tablet PO (22:07)
[2018-05-25] MEDS: Pregabalin 75 MG Capsule PO (22:07)
[2018-05-25] MEDS: oxyCODONE 5 MG Tablet PO (22:09)
--- NOTE | 2018-05-25 22:29 | PCM.RX.CS ---
Consult Pharmacy has been consulted to manage selected antiobiotic: Vancomycin Type of Consult: New start Suspected Infection: Skin/Soft tissue Labs: Sodium 141 mmol/L (136-145) 05/25/18 17:40 Potassium 3.9 mmol/L (3.5-5.1) 05/25/18 17:40 Chloride 104 mmol/L (98-107) 05/25/18 17:40 Carbon Dioxide 32.0 mmol/L (21.0-32.0) 05/25/18 17:40 Anion Gap 5 (5-15) 05/25/18 17:40 BUN 19 mg/dL (7-18) H 05/25/18 17:40 Creatinine 1.07 mg/dL (0.70-1.30) 05/25/18 17:40 Est GFR (MDRD) Af Amer 86 mL/min (>60) 05/25/18 17:40 Est GFR (MDRD) Non-Af 71 mL/min (>60) 05/25/18 17:40 BUN/Creatinine Ratio 17.8 RATIO (10-20) 05/25/18 17:40 Glucose 97 mg/dL (74-106) 05/25/18 17:40 Weight used for dosin.8 kg Estimated Creatinine Clearance: 56.85 Goal Trough: 10-15 mcg/mL Pharmacy Plan for Drug Dosing: Pharmacy Service will continue to monitor and adjust dosing as required. Medications Vancomycin HCl () 500 mg in 100 mls @ 100 mls/hr IV Q12H RACHEL Discontinued Medications Vancomycin HCl (Vancomycin) 1,000 mg in 200 mls @ 200 mls/hr IV X1 ONE Stop: 05/25/18 20:12 Last Admin: 05/25/18 19:43 Dose: 200 mls/hr Follow-Up Labs: Trough Vancomycin Labs to be done on [date and time ordered]: 05/27 @ 2887
[2018-05-26] VITALS (8 sets, daily range): BP systolic 98–116; BP diastolic 53–63; PULSE 60–68; RESP 14–16; TEMP 36.4–36.8; O2SAT 93–97
[2018-05-26 01:13] LABS: M R Staph aureus DNA By PCR Negative (Negative); Probe Check PASS; Specimen Processing Control PASS; Staph aureus DNA By PCR POSITIVE (Negative)
[2018-05-26] MEDS: Acetaminophen 325 MG Tablet 650 MG PO ×3 (03:30→17:41)
[2018-05-26] MEDS: oxyCODONE 5 MG Tablet PO ×4 (03:30→22:39)
[2018-05-26 05:45] LABS: Absolute Lymphocyte Count 0.87 X10^3/ul (0.83-4.51); Absolute Neutrophil Count 3.8 X10^3/uL (2.0-7.7); Basophil# 0.05 X10^3/uL; Basophil% 0.9 % (0-1); Eosinophil# 0.09 X10^3/uL; Eosinophils% 1.7 % (0-5); Hematocrit 36.1 % (40-54); Hemoglobin 11.3 g/dl (13.0-16.5); Lymphocyte # 0.87 X10^3/ul (4.0); Lymphocyte % 16.4 % (19-41); Mean Corp Hgb Conc 31.3 g/gl (32-36); Mean Corpuscular Hgb 29.3 pg (27.0-32.0); Mean Corpuscular Volume 93.5 fL (80-94); Mean Platelet Vol. 10.9 fl (6.2-12.0); Monocyte# 0.54 X10^3/uL; Monocyte% 10.2 % (0-10); Neutrophil # 3.75 X10^3/uL (2.7-7.7); Neutrophil % 70.4 % (47-70); Platelet Count 189 K/mm3 (150-450); RBC Distribution Width CV 14.2 % (11.6-14.6); Red Blood Count 3.86 M/mm3 (4.6-6.2); White Blood Count 5.3 K/mm3 (4.4-11.0)
[2018-05-26 05:46] LABS: POSITIVE COUNT NO; POSITIVE DIFFERENTIAL NO; POSITIVE MORPHOLOGY NO
[2018-05-26 05:54] LABS: Anion Gap 8 (5-15); BUN 21 mg/dL (7-18); BUN/Creat Ratio 20.2 RATIO (10-20); Calcium,Total 8.5 mg/dL (8.5-10.1); Chloride 105 mmol/L (98-107); Creatinine, Serum 1.04 mg/dL (0.70-1.30); EST Glomerular Filtration Rate 73 mL/min (>60); Est Glom Filt Rate - Afr Amer 88 mL/min (>60); Estimated Creatinine Clearance 58.33 ml/min; Glucose 99 mg/dL (74-106); Potassium 3.9 mmol/L (3.5-5.1); Sodium Level 142 mmol/L (136-145)
[2018-05-26] MEDS: 0.9% NaCl IVPB Med Flush (250 mL) 15 ML IV (05:55)
[2018-05-26] MEDS: Piperacil/Tazobactam 3.375 GM/50 ML ML IV ×3 (05:55→22:38)
[2018-05-26] MEDS: Ipratropium/Albuterol Sulfate 3 ML AMPUL.NEB INHALATION ×2 (06:54→13:39)
[2018-05-26 07:00] LABS: Bedside Glucose 111 mg/dL (70-110)
--- NOTE | 2018-05-26 07:57 | PCM.CONS.GEN ---
Problem List (1) Cellulitis of leg, left Status: Acute (2) Intractable pain Status: Chronic (3) Trimalleolar fracture of ankle, closed Status: Chronic Reason for Consult Date of Consultation: 05/26/18 Reason for Consultation: Pain and redness to left ankle History of Present Illness: The patient is a 78 year old M with significant past medical history of COPD, chronic pain, coronary artery disease on chronic anticoagulation medication underwent open reduction internal fixation of left ankle fracture on April 07, 2018. He has been progressing well for the most part however started having left ankle pain that was progressively worsening to a 10 about two days ago. His daughter noticed some drainage at home and some redness. They presented to the emergency room and he was admitted for pain control and antibiotics. A culture was obtained from the apparent drainage at the time of admission. The patient denies current fever, chill, nausea, vomiting, chest pain, shortness of breath, calf pain. He also concerned that his cam walker may been too tight over this site. He denies placing weight on this ankle fracture site so far. He denies trauma. Since he has been admitted and started on antibiotics and leg elevation, his pain has decreased to a 6. Past Medical History Past Medical History (Chronic Problems): Chronic Problems (Last Reviewed 04/07/18 @ 17:04 by Pancho Mantilla DO) Intractable pain (Chronic) Trimalleolar fracture of ankle, closed (Chronic) Non-rheumatic tricuspid valve insufficiency (Chronic) Secondary pulmonary arterial hypertension (Chronic) Chronic systolic (congestive) heart failure (Chronic) Ischemic cardiomyopathy (Chronic) History of coronary artery stent placement (Chronic) 06/28/2011 prior to PTCA and BMS (3.0 mm X 18 mm long Integrity stent) to mid LAD, BMS to the mid distal CX (4.5 X 16mm Veriflex stent), and BMS to the proximal CX (3.5 X 15 mm Integrity stent) @ [facility] Atherosclerotic heart disease of [place] coronary artery without angina pectoris (Chronic) 03/27/1993: RED to LAD (CABG X1 along with AVR, [facility]):06/28/2011 prior to PTCA and BMS to mid LAD, BMS to the mid distal CX, and BMS to the proximal CX @ [facility] History of left heart catheterization (Chronic) 03/27/1993 [facility] prior to CABG X1 and AVR; 06/28/2011 prior to PTCA and BMS to mid LAD, BMS to the mid distal CX, and BMS to the proximal CX @ [facility] History of aortic valve replacement (Chronic) 03/27/1993: RED to LAD and 23mm [facility] Mechanical AVR placed for severe per Dr. Darrell Shaw [facility] S/P CABG x 1 (Chronic) 03/27/1993: RED to LAD and 23mm [facility] Prosthetic AVR placed for severe per Dr. 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 HERNANDEZ Medical History: Medical History (Last Reviewed 04/07/18 @ 17:04 by Pancho Mantilla DO) Non-rheumatic tricuspid valve insufficiency (Chronic) I36.1 Secondary pulmonary arterial hypertension (Chronic) I27.21 Chronic systolic (congestive) heart failure (Chronic) I50.22 Ischemic cardiomyopathy (Chronic) I25.5 Atherosclerotic heart disease of [place] coronary artery without angina pectoris (Chronic) I25.10 03/27/1993: RED to LAD (CABG X1 along with AVR, [facility]):06/28/2011 prior to PTCA and BMS to mid LAD, BMS to the mid distal CX, and BMS to the proximal CX @ [facility] superintendent [employer] terminal current use of anticoagulant (Chronic) Z79.01 History of GI bleed (Chronic) Z87.19 08/09/2017 GI bleed (Resolved) K92.2 COPD (chronic obstructive pulmonary disease) (Chronic) J44.9 Atrial fibrillation (Chronic) I48.91 Anemia due to chronic blood loss (Chronic) D50.0 Spinal stenosis of lumbar region (Chronic) M48.06 Tobacco use disorder (Chronic) F17.200 Chronic pain syndrome (Chronic) G89.4 follows with pain Management, Dr. HERNANDEZ Uncontrolled pain (Inactive) R52 Allergies No Known Allergies Allergy (Verified 05/25/18 16:59) Home Medications: Ambulatory Orders Medication Instructions Recorded Rosuvastatin Calcium [Crestor] 40 mg PO QHS 07/15/13 Ferrous Sulfate 325 mg PO BIDCM 09/13/15 Albuterol Sulfate [Proair 1 puff INHALATION Q4H PRN PRN 09/25/15 Respiclick] Cholecalciferol (VIT D3) [Vitamin 2,000 unit PO DAILY 09/25/15 D3] Nitroglycerin [Nitrostat] 0.4 mg SUBLINGUAL Q5M PRN #30 tab 09/26/15 Aspirin E.C. [Ecotrin] 81 mg PO DAILY@0800 06/24/16 Folic Acid 1 mg PO QHS 06/24/16 Ipratropium/Albuterol Sulfate 3 ml INHALATION Q4H PRN PRN #30 11/02/16 [Duoneb] ampul.neb Metoprolol Tartrate [Lopressor 12.5 mg PO BID 01/20/17 (beta zach)] Docusate Sodium [Colace] 200 mg PO BID PRN PRN cap 01/27/17 Budesonide/Formoterol 160/4.5 2 puff INHALATION BID 02/08/17 [Symbicort 160/4.5 Mcg Inhaler (SP)] Furosemide [Lasix] 40 mg PO DAILY 02/08/17 isosorbide mononitrate ER 30 mg 30 mg PO QAM 11/21/17 tablet,extended release 24 hr pantoprazole 40 mg tablet,delayed 40 mg PO BID tab 01/02/18 release warfarin 5 mg tablet 5 mg PO SUTUTH tab 01/02/18 warfarin 7.5 mg tablet 7.5 mg PO MOWEFRSA tab 01/02/18 Celecoxib [Celebrex] 200 mg PO DAILY 05/26/18 Oxycodone HCl/Acetaminophen 1 tab PO Q6H PRN PRN 05/26/18 [Percocet 7.5-325 mg Tablet] Pregabalin [Lyrica] 1 tab PO BID 05/26/18 Zolpidem Tartrate [Ambien] 10 mg PO QHS 05/26/18 Surgical History: Surgical History (Last Reviewed 04/07/18 @ 17:04 by Pancho Mantilla DO) History of coronary artery stent placement (Chronic) Z95.5 06/28/2011 prior to PTCA and BMS (3.0 mm X 18 mm long Integrity stent) to mid LAD, BMS to the mid distal CX (4.5 X 16mm Veriflex stent), and BMS to the proximal CX (3.5 X 15 mm Integrity stent) @ [facility] History of left heart catheterization (Chronic) Z98.890 03/27/1993 [facility] prior to CABG X1 and AVR; 06/28/2011 prior to PTCA and BMS to mid LAD, BMS to the mid distal CX, and BMS to the proximal CX @ [facility] History of aortic valve replacement (Chronic) Z95.2 03/27/1993: RED to LAD and 23mm [facility] Rachid Mechanical AVR placed for severe per Dr. Darrell Shaw [facility] S/P CABG x 1 (Chronic) Z95.1 03/27/1993: RED to LAD and 23mm [facility] Rachid Prosthetic AVR placed for severe per Dr. Darrell Shaw [facility] Surgical History: coronary bypass surgery, - - Mechanical aortic valve replacement, back surgeries, RLE ankle surgery recently. Psychiatric History: No pertinent psych hx Lives: Alone Smoking Status: Current every day smoker Tobacco Use: Cigarettes Alcohol: None Drugs: None - *Family History Maternal Family History: Family History (Last Reviewed 04/07/18 @ 17:04 by Pancho Mantilla DO) Son CAD (coronary artery disease) Myocardial infarction Sudden cardiac Brother CAD (coronary artery disease) Sister CAD (coronary artery disease) History Items: Diabetes, Heart Disease, Hypertension Paternal Family History: Family History (Last Reviewed 04/07/18 @ 17:04 by Pancho Mantilla DO) Son CAD (coronary artery disease) Myocardial infarction Sudden cardiac Brother CAD (coronary artery disease) Sister CAD (coronary artery disease) History Items: Diabetes, Heart Disease, Hypertension Review of Systems Constitutional: Denies: Chills, Fever, Weakness, Fatigue Cardiovascular: Denies: Chest Pain, Claudication Respiratory: Denies: Shortness of Breath Gastrointestinal: Denies: Nausea, Vomiting Musculoskeletal: Reports: Leg Pain - Left ankle lateral side Skin: Reports: Skin Changes. Denies: Pruritis Neurological: Denies: Numbness, Tingling Hematologic/ Lymphatic: Reports: Easy Bruising Patient Problems: Active and Suspected Problems (Last Reviewed 04/07/18 @ 17:04 by Pancho Mantilla DO) Cellulitis of leg, left (Acute) - Physical Exam General: Alert, Oriented x3, Cooperative HEENT: Atraumatic Extremities: No cyanosis, Capillary Refill Less than 3 Seconds - All digits of left lower extremity, No Calf Tenderness - Negative Adriana and Ibanez sign bilateral, Edema - Edema mild to left lateral ankle site, Peripheral Pulses Normal - Palpable dorsalis pedis pulse on the left lower extremity Skin: Incision - Medial left ankle incision is well-healed. The lateral left ankle incision also appears healed and I do not appreciate any drainage odor or wound today. There is some induration erythema and edema along the lateral incision and on palpation there is no fluctuance or bogginess or fluid expressed from the tissues. There is no eschar noted. His adjacent skin is very dry and peeling and is hairless and atrophic. Musculoskeletal: Muscle Wasting, Tenderness - Along the lateral surgical site. Noticing pain to the ankle joint or with passive range of motion of the ankle or to the medial aspect where the medial malleolar fracture site was repaired. The compartments of the left lower extremity remains soft on palpation Neurological: Sensory exam intact to light touch and pain - Hypersensitive to touch consistent with previous exams Psych/Mental Status: Normal Affect, Appropriate Vital Signs Temp Pulse Resp BP Pulse Ox 98.3 F 63 16 116/62 93 05/26/18 03:16 05/26/18 06:54 05/26/18 06:54 05/26/18 03:16 05/26/18 06:54 Oxygen Delivery Method Room Air Weight: 72.8 kg Body Mass Index (BMI) 23.0 Intake and Output for Last 24 Hours 05/24/18 05/25/18 05/26/18 23:59 23:59 23:59 Intake Total 600 / 600 Output Total 200 / 200 Balance 400 / 400 Laboratory Tests Past 24 Hrs 05/25/18 05/25/18 05/25/18 17:40 17:40 17:40 WBC 6.7 RBC 4.07 L Hgb 11.9 L Hct 38.0 L MCV 93.4 MCH 29.2 MCHC 31.3 L RDW 14.4 RDW Differential 48.8 H Plt Count 214 MPV 10.4 Immature Gran % (Auto) 0.000 Neut % (Auto) 75.1 H Lymph % (Auto) 14.7 L Coffey % (Auto) 8.9 Eos % (Auto) 0.9 Baso % (Auto) 0.4 Absolute Neuts (auto) 5.0 Absolute Lymphs (auto) 0.99 Total Counted Not Reportable ESR 30 H PT 30.8 H INR 2.9 Sodium 141 Potassium 3.9 Chloride 104 Carbon Dioxide 32.0 Anion Gap 5 BUN 19 H Creatinine 1.07 Estim Creat Clear Calc 56.85 Est GFR (MDRD) Af Amer 86 Est GFR (MDRD) Non-Af 71 BUN/Creatinine Ratio 17.8 Glucose 97 Calcium 8.9 Magnesium C-React Prot Ext Range 61.60 H S.aureus Protein A PCR MRSA (PCR) 05/25/18 05/25/18 05/26/18 17:40 21:17 05:17 WBC 5.3 RBC 3.86 L Hgb 11.3 L Hct 36.1 L MCV 93.5 MCH 29.3 MCHC 31.3 L RDW 14.2 RDW Differential 47.0 H Plt Count 189 MPV 10.9 Immature Gran % (Auto) 0.400 Neut % (Auto) 70.4 H Lymph % (Auto) 16.4 L Coffey % (Auto) 10.2 H Eos % (Auto) 1.7 Baso % (Auto) 0.9 Absolute Neuts (auto) 3.8 Absolute Lymphs (auto) 0.87 Total Counted Not Reportable ESR PT INR Sodium Potassium Chloride Carbon Dioxide Anion Gap BUN Creatinine Estim Creat Clear Calc Est GFR (MDRD) Af Amer Est GFR (MDRD) Non-Af BUN/Creatinine Ratio Glucose Calcium Magnesium 2.0 C-React Prot Ext Range S.aureus Protein A PCR POSITIVE H MRSA (PCR) Negative 05/26/18 05/26/18 05:17 05:17 WBC RBC Hgb Hct MCV MCH MCHC RDW RDW Differential Plt Count MPV Immature Gran % (Auto) Neut % (Auto) Lymph % (Auto) Coffey % (Auto) Eos % (Auto) Baso % (Auto) Absolute Neuts (auto) Absolute Lymphs (auto) Total Counted ESR PT 31.0 H INR 3.0 Sodium 142 Potassium 3.9 Chloride 105 Carbon Dioxide 29.0 Anion Gap 8 BUN 21 H Creatinine 1.04 Estim Creat Clear Calc 58.33 Est GFR (MDRD) Af Amer 88 Est GFR (MDRD) Non-Af 73 BUN/Creatinine Ratio 20.2 H Glucose 99 Calcium 8.5 Magnesium C-React Prot Ext Range S.aureus Protein A PCR MRSA (PCR) POC Glucose 05/26/18 06:04 POC Glucose 111 H Assessment/Plan All Active Problems (Last Reviewed 04/07/18 @ 17:04 by Pancho Mantilla DO) Closed left ankle fracture (Acute) Left ankle pain (Acute) Risk for falls (Acute) Cellulitis of leg, left (Acute) GI bleed (Resolved) [place] (acute kidney injury) (Resolved) Acute exacerbation of chronic obstructive pulmonary disease (Resolved) Bradycardia (Resolved) COPD with acute exacerbation (Resolved) Gram-negative pneumonia (Resolved) History of colonoscopy (Resolved) History of endoscopy (Resolved) Hypotension (Resolved) Hypoxia (Resolved) Subconjunctival hematoma (Resolved) Left lower extremity cellulitis with possible concurrent suture reaction and mechanical irritation from cam walker Left lower extremity pain Approximately 6 weeks status post open reduction internal fixation trimalleolar ankle fracture Other comorbidities noted I examined this patient and there is no apparent drainage noted bedside this morning. The Steri-Strips were removed and the area was cleansed with an alcohol wipe. There is erythema, inflammation, and tenderness on palpation along the lateral incision site and I am suspecting a cellulitis and mechanical irritation possibly from his cam walker boot. I recommend continuing on antibiotics. His blood cultures are pending. It is noted he did not have leukocytosis. Sedimentation rate is 30 and C-reactive protein is elevated. He is advised to elevate while in bed. I also recommend moisturizing the leg to improve skin integrity. His x-rays were reviewed and osseous bridging is noted at the fracture repair site. There is no osteolysis around the hardware or alteration in initial hardware placement. Infectious disease on consultation and input is greatly appreciated. The wound culture obtained by another care provider at the time of admission is pending. Pending response to IV antibiotics and rest, additional imaging will be obtained to rule out deeper injury or infection. It is okay for him to begin 50% weightbearing as tolerated in the cam walker boot. I will continue to follow him close while in house. I reviewed this care plan with his daughter Emily. Please not hesitate to call if you have any questions. Mary Alice Villarreal DPM, FACF[facility] [phone]
[2018-05-26] MEDS: Ferrous Sulfate 325 MG Tablet PO ×2 (08:15→17:41)
[2018-05-26] MEDS: Aspirin E.C. 81 MG Tablet PO (08:15)
[2018-05-26] MEDS: Vancomycin IV 500 MG/100 ML BAG 100 MG IV ×2 (08:18→20:29)
--- NOTE | 2018-05-26 09:47 | CASEMGMT ---
RN CM Assessment Pt presented to ER with redness, drainage,cellulitis L ankle. Hx of ORIF L trimalleolus fx on 04/07/18. Podiatry consult- 50% weight bearing is now permitted. Intro role of CM to patient in room. Pt states he has been doing well at home. Physician states he can be 50% weight bearing in the cam walker boot. PT/OT ordered. PCP: Dr. Pritchard Pharmacy: [facility] Housing: Lives alone, one story home. Ramp to entryway. Self Care: Uses crutches for mobility while NWB. Current status will be 50% WB. Patient's daughter Emily has been preparing meals, setting up medications, grocery shopping, cleaning and doing the laundry. Adaptive Equipment: using manual wheelchair, crutches when transferring, Has a cane and rollator walker. Patient has a medical alert, provided by the [place]. Pt had ramp placed to entryway. Support System: daughter Emily lives 4 doors down and a niece lives across the street. Patient reports to feel support system is adequate at this time. Agency involvement: Uses the [facility]. [facility] nursing is still active. Pt had PT/OT after foot surgery, not active now. Transportation: Daughter assists with transportation. DC Plan: Home, resume [facility] on dc. Have PT/OT eval if therapy is recommended to be added for home. Naty RASHID RN ACM
--- NOTE | 2018-05-26 09:50 | PCM.PN.HOSP ---
Patient Problems: Active and Suspected Problems (Last Reviewed 04/07/18 @ 17:04 by Pancho Mantilla DO) Cellulitis of leg, left (Acute) Subjective: Patient seen and examined. He is an 78-year-old male who was admitted with a complaint of left lateral incision erythema, edema and purulent drainage with associated chills. He had open reduction and internal fixation of left trimalleolar ankle fracture on 04/07/2018. He is status post I&D by podiatry. He has no complaints and feels well. He denies any fever chills cough or chest pain, any shortness of breath, abdominal pain, any diarrhea or vomiting. Review of systems otherwise negative. Labs and vitals reviewed. Vitals/I&O's: Vital Signs Temp Pulse Resp BP Pulse Ox 98.3 F 63 16 116/62 93 05/26/18 03:16 05/26/18 06:54 05/26/18 06:54 05/26/18 03:16 05/26/18 06:54 Oxygen Delivery Method Room Air Weight: 160 lb 7.944 oz Body Mass Index (BMI) 23.0 Intake and Output for Last 24 Hours 05/24/18 05/25/18 05/26/18 23:59 23:59 23:59 Intake Total 600 / 600 Output Total 200 / 200 Balance 400 / 400 General: Alert, Oriented x3, Cooperative, No apparent distress HEENT: Atraumatic, PERRLA, EOMI, Normocephalic Oral: Moist Mucosa Neck: Supple, No JVD, Negative Carotid Bruits, Negative Hepatojugular Reflux, No Nodes Lungs: Clear to auscultation, Normal air movement, No rhonchi, No wheeze, No rales Cardiovascular: Regular rate, Regular Rhythm, Normal S1, Normal S2, No murmurs Abdomen: Bowel Sounds Present, Soft, Non Tender, Non-Distended, No Hepato-splenomegaly Extremities: No edema, Capillary Refill Less than 3 Seconds Skin: No rashes, No breakdown Musculoskeletal: - - left ankle and LE in bandage. Distal DP and PT pulses palpable bilaterally Lymphatic: No Cervical, Supraclavicular, or Inguinal Adenopathy Neurological: Cranial nerves II-XII grossly intact, Neuro grossly intact, Motor Exam 5/5 strength throughout Psych/Mental Status: Normal Affect, Appropriate, Alert and oriented to time, place, person, mood and affect Microbiology Past 72 Hours 05/25/18 18:05 Wound - Ankle Gram Stain - Final Laboratory Results 05/25/18 17:40: WBC 6.7, RBC 4.07 L, Hgb 11.9 L, Hct 38.0 L, MCV 93.4, MCH 29.2, MCHC 31.3 L, RDW 14.4, RDW Differential 48.8 H, Plt Count 214, MPV 10.4, Immature Gran % (Auto) 0.000, Neut % (Auto) 75.1 H, Lymph % (Auto) 14.7 L, [place] % (Auto) 8.9, Eos % (Auto) 0.9, Baso % (Auto) 0.4, Absolute Neuts (auto) 5.0, Absolute Lymphs (auto) 0.99, Total Counted Not Reportable, ESR 30 H 05/25/18 17:40: Sodium 141, Potassium 3.9, Chloride 104, Carbon Dioxide 32.0, Anion Gap 5, BUN 19 H, Creatinine 1.07, Estim Creat Clear Calc 56.85, Est GFR (MDRD) Af Amer 86, Est GFR (MDRD) Non-Af 71, BUN/Creatinine Ratio 17.8, Glucose 97, Calcium 8.9, C-React Prot Ext Range 61.60 H 05/25/18 17:40: PT 30.8 H, INR 2.9 05/25/18 17:40: Magnesium 2.0 05/25/18 21:17: S.aureus Protein A PCR POSITIVE H, MRSA (PCR) Negative 05/26/18 05:17: WBC 5.3, RBC 3.86 L, Hgb 11.3 L, Hct 36.1 L, MCV 93.5, MCH 29.3, MCHC 31.3 L, RDW 14.2, RDW Differential 47.0 H, Plt Count 189, MPV 10.9, Immature Gran % (Auto) 0.400, Neut % (Auto) 70.4 H, Lymph % (Auto) 16.4 L, [place] % (Auto) 10.2 H, Eos % (Auto) 1.7, Baso % (Auto) 0.9, Absolute Neuts (auto) 3.8, Absolute Lymphs (auto) 0.87, Total Counted Not Reportable 05/26/18 05:17: Sodium 142, Potassium 3.9, Chloride 105, Carbon Dioxide 29.0, Anion Gap 8, BUN 21 H, Creatinine 1.04, Estim Creat Clear Calc 58.33, Est GFR (MDRD) Af Amer 88, Est GFR (MDRD) Non-Af 73, BUN/Creatinine Ratio 20.2 H, Glucose 99, Calcium 8.5 05/26/18 05:17: PT 31.0 H, INR 3.0 05/26/18 06:04: POC Glucose 111 H Diagnostic Data Ankle X-Ray 05/25/18 17:45 IMPRESSION: 1. No acute findings. 2. Old healed ankle fractures with internal fixation. Electronically Signed: Yanira Yanez MD at 18:20 EST Tel , Service support , Current Medications Acetaminophen (Tylenol) 650 mg PO Q6H PRN PRN PRN Reason: Mild Pain (scale 0-3)/T>100.7 Last Admin: 05/26/18 03:30 Dose: 650 mg Al Hydroxide/Mg Hydroxide (Mylanta Ii) 30 ml PO Q6H PRN PRN PRN Reason: Gastric burning Albuterol Sulfate (Ventolin Aerosols) 2.5 mg INHALATION Q2H PRN PRN PRN Reason: dyspnea, wheezing Albuterol/Ipratropium (Duoneb) 3 ml INHALATION Q6HWA.RT [facility] Last Admin: 05/26/18 06:54 Dose: 3 ml Aspirin (Ecotrin) 81 mg PO DAILY@0800 [facility] Last Admin: 05/26/18 08:15 Dose: 81 mg Atorvastatin Calcium (Lipitor) 80 mg PO QHS [facility] Last Admin: 05/25/18 22:07 Dose: 80 mg Dextrose (D50w Syringe) 0 gm IV X1 PRN; Protocol PRN Reason: Hypoglycemia Ferrous Sulfate (Ferrous Sulfate) 325 mg PO BIDCM [facility] Last Admin: 05/26/18 08:15 Dose: 325 mg Folic Acid (Folic Acid) 1 mg PO QHS [facility] Last Admin: 05/25/18 22:06 Dose: 1 mg Furosemide (Lasix) 40 mg PO DAILY [facility] Glucagon () 1 mg IM .X1 PRN PRN Reason: Hypoglycemia Piperacillin Sod/Tazobactam Sod (Zosyn) 3.375 gm in 50 mls @ 12.5 mls/hr IV Q8 [facility] Last Admin: 05/26/18 05:55 Dose: 12.5 mls/hr Vancomycin IV Pharmacy to Dose (1 ea/ Sodium Chloride) 500 mls @ 250 mls/hr IV X1 PRN; Protocol PRN Reason: Rx to Dose Sodium Chloride () 250 mls @ 15 mls/hr IV .[id number] PRN PRN Reason: SALINE FLUSH Last Admin: 05/26/18 05:55 Dose: 15 mls/hr Vancomycin HCl () 500 mg in 100 mls @ 100 mls/hr IV Q12H [facility] Last Admin: 05/26/18 08:18 Dose: 100 mls/hr Isosorbide Mononitrate (Imdur) 30 mg PO QAM [facility] Magnesium Hydroxide (Milk Of Magnesia) 30 ml PO DAILY PRN PRN PRN Reason: Constipation Metoprolol Tartrate (Lopressor (Beta Martha)) 12.5 mg PO BID [facility] Last Admin: 05/25/18 22:06 Dose: 12.5 mg Morphine Sulfate () 2 - 4 mg IV Q3H PRN PRN PRN Reason: Severe Pain (pain scale 6-10) Morphine Sulfate () 1 - 2 mg IV Q4H PRN PRN PRN Reason: Moderate Pain (pain scale 4-5) Nicotine (Nicoderm Cq (Pbkc)) 14 mg TRANSDERM. DAILY [facility] Last Admin: 05/25/18 22:07 Dose: 14 mg Ondansetron HCl (Zofran) 4 mg IV Q8H PRN PRN PRN Reason: NAUSEA Oxycodone HCl (Oxyir) 5 mg PO Q4H PRN PRN PRN Reason: Moderate Pain (pain scale 4-5) Last Admin: 05/26/18 03:30 Dose: 5 mg Pantoprazole Sodium (Protonix) 40 mg PO BID [facility] Last Admin: 05/25/18 22:06 Dose: 40 mg Pregabalin (Lyrica) 75 mg PO BID [facility] Last Admin: 05/25/18 22:07 Dose: 75 mg Sodium Chloride () 5 - 30 ml IV UD PRN PRN Reason: SALINE FLUSH Zolpidem Tartrate (Ambien (Generic)) 5 mg PO QHS PRN PRN PRN Reason: INSOMNIA Medical Necessity - Tobacco Use Smoking Status: Current every day smoker Tobacco Use: Cigarettes Assessment/Plan All Active Problems (Last Reviewed 04/07/18 @ 17:04 by Pancho Mantilla DO) Closed left ankle fracture (Acute) Left ankle pain (Acute) Risk for falls (Acute) Cellulitis of leg, left (Acute) GI bleed (Resolved) SALVADOR (acute kidney injury) (Resolved) Acute exacerbation of chronic obstructive pulmonary disease (Resolved) Bradycardia (Resolved) COPD with acute exacerbation (Resolved) Gram-negative pneumonia (Resolved) History of colonoscopy (Resolved) History of endoscopy (Resolved) Hypotension (Resolved) Hypoxia (Resolved) Subconjunctival hematoma (Resolved) 1. LLE incisional cellulitis Had a left ankle fracture not open reduction internal fixation in March 2018. currently on IV vancomycin and zosyn. has no complaints; pain is well controlled is afebrile; cultures pending podiatry on board; per their recs, continue conservative management for now with antibiotics and to have 50% weightbearing as tolerated in the calm walker boot. 2. 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 INR today is 3. 3. Successful atrial fibrillation: On beta-martha. On Coumadin. INR today is 3. 4. COPD: Saturating well on room air. On breathing treatments. 5. Hypertension: Controlled: Metoprolol, Imdur and Lasix. As needed hydralazine. 6. Iron deficiency anemia: Stable. On iron supplementation. 7. Hyperlipidemia: On statin 8. CAD status post CABG: Aspirin. On statin and beta-martha. 9. Chronic heart failure with reduced ejection fraction due to ischemic cardiomyopathy On beta-martha and Lasix. Not on NABIL or arm. Reason is not clear. Follow-up with payroll and benefits assistant on discharge. 10. GERD. on PPI DVT prophylaxis: on coumadin. Code Visit Inpatient E&M: 29035 [facility] L3
--- NOTE | 2018-05-26 10:00 | PN_ITS ---
Patient Problems: Active and Suspected Problems (Last Reviewed 04/07/18 @ 17:04 by Pancho Mantilla DO) Cellulitis of leg, left (Acute) Subjective: Patient seen and examined. He is an 78-year-old male who was admitted with a complaint of left lateral incision erythema, edema and purulent drainage with associated chills. He had open reduction and internal fixation of left trimalleolar ankle fracture on 04/07/2018. He is status post I&D by podiatry. He has no complaints and feels well. He denies any fever chills cough or chest pain, any shortness of breath, abdominal pain, any diarrhea or vomiting. Review of systems otherwise negative. Labs and vitals reviewed. Vitals/I&O's: Vital Signs Temp Pulse Resp BP Pulse Ox 98.3 F 63 16 116/62 93 05/26/18 03:16 05/26/18 06:54 05/26/18 06:54 05/26/18 03:16 05/26/18 06:54 Oxygen Delivery Method Room Air Weight: 160 lb 7.944 oz Body Mass Index (BMI) 23.0 Intake and Output for Last 24 Hours 05/24/18 05/25/18 05/26/18 23:59 23:59 23:59 Intake Total 600 / 600 Output Total 200 / 200 Balance 400 / 400 General: Alert, Oriented x3, Cooperative, No apparent distress HEENT: Atraumatic, PERRLA, EOMI, Normocephalic Oral: Moist Mucosa Neck: Supple, No JVD, Negative Carotid Bruits, Negative Hepatojugular Reflux, No Nodes Lungs: Clear to auscultation, Normal air movement, No rhonchi, No wheeze, No rales Cardiovascular: Regular rate, Regular Rhythm, Normal S1, Normal S2, No murmurs Abdomen: Bowel Sounds Present, Soft, Non Tender, Non-Distended, No Hepato-s plenomegaly Extremities: No edema, Capillary Refill Less than 3 Seconds Skin: No rashes, No breakdown Musculoskeletal: - - left ankle and LE in bandage. Distal DP and PT pulses palpable bilaterally Lymphatic: No Cervical, Supraclavicular, or Inguinal Adenopathy Neurological: Cranial nerves II-XII grossly intact, Neuro grossly intact, Motor Exam 5/5 strength throughout Psych/Mental Status: Normal Affect, Appropriate, Alert and oriented to time, pl nabil, person, mood and affect Microbiology Past 72 Hours 05/25/18 18:05 Wound - Ankle Gram Stain - Final Laboratory Results 05/25/18 17:40: WBC 6.7, RBC 4.07 L, Hgb 11.9 L, Hct 38.0 L, MCV 93.4, MCH 29.2, MCHC 31.3 L, RDW 14.4, RDW Differential 48.8 H, Plt Count 214, MPV 10.4, Immature Gran % (Auto) 0.000, Neut % (Auto) 75.1 H, Lymph % (Auto) 14.7 L, [place] % (Auto) 8.9, Eos % (Auto) 0.9, Baso % (Auto) 0.4, Absolute Neuts (auto) 5.0, Absolute Lymphs (auto) 0.99, Total Counted Not Reportable, ESR 30 H 05/25/18 17:40: Sodium 141, Potassium 3.9, Chloride 104, Carbon Dioxide 32.0, Anion Gap 5, BUN 19 H, Creatinine 1.07, Estim Creat Clear Calc 56.85, Est GFR (MDRD) Af Amer 86, Est GFR (MDRD) Non-Af 71, BUN/Creatinine Ratio 17.8, Glucose 97, Calcium 8.9, C-React Prot Ext Range 61.60 H 05/25/18 17:40: PT 30.8 H, INR 2.9 05/25/18 17:40: Magnesium 2.0 05/25/18 21:17: S.aureus Protein A PCR POSITIVE H, MRSA (PCR) Negative 05/26/18 05:17: WBC 5.3, RBC 3.86 L, Hgb 11.3 L, Hct 36.1 L, MCV 93.5, MCH 29.3, MCHC 31.3 L, RDW 14.2, RDW Differential 47.0 H, Plt Count 189, MPV 10.9, Immature Gran % (Auto) 0.400, Neut % (Auto) 70.4 H, Lymph % (Auto) 16.4 L, [place] % (Auto) 10.2 H, Eos % (Auto) 1.7, Baso % (Auto) 0.9, Absolute Neuts (auto) 3.8, Absolute Lymphs (auto) 0.87, Total Counted Not Reportable 05/26/18 05:17: Sodium 142, Potassium 3.9, Chloride 105, Carbon Dioxide 29.0, Anion Gap 8, BUN 21 H, Creatinine 1.04, Estim Creat Clear Calc 58.33, Est GFR (MDRD) Af Amer 88, Est GFR (MDRD) Non-Af 73, BUN/Creatinine Ratio 20.2 H, Glucose 99, Calcium 8.5 05/26/18 05:17: PT 31.0 H, INR 3.0 05/26/18 06:04: POC Glucose 111 H Diagnostic Data Ankle X-Ray 05/25/18 17:45 IMPRESSION: 1. No acute findings. 2. Old healed ankle fractures with internal fixation. Electronically Signed: Yanira Yanez MD at 18:20 EST Tel , Service support , Current Medications Acetaminophen (Tylenol) 650 mg PO Q6H PRN PRN PRN Reason: Mild Pain (scale 0-3)/T>100.7 Last Admin: 05/26/18 03:30 Dose: 650 mg Al Hydroxide/Mg Hydroxide (Mylanta Ii) 30 ml PO Q6H PRN PRN PRN Reason: Gastric burning Albuterol Sulfate (Ventolin Aerosols) 2.5 mg INHALATION Q2H PRN PRN PRN Reason: dyspnea, wheezing Albuterol/Ipratropium (Duoneb) 3 ml INHALATION Q6HWA.RT [facility] Last Admin: 05/26/18 06:54 Dose: 3 ml Aspirin (Ecotrin) 81 mg PO DAILY@0800 [facility] Last Admin: 05/26/18 08:15 Dose: 81 mg Atorvastatin Calcium (Lipitor) 80 mg PO QHS [facility] Last Admin: 05/25/18 22:07 Dose: 80 mg Dextrose (D50w Syringe) 0 gm IV X1 PRN; Protocol PRN Reason: Hypoglycemia Ferrous Sulfate (Ferrous Sulfate) 325 mg PO BIDCM [facility] Last Admin: 05/26/18 08:15 Dose: 325 mg Folic Acid (Folic Acid) 1 mg PO QHS [facility] Last Admin: 05/25/18 22:06 Dose: 1 mg Furosemide (Lasix) 40 mg PO DAILY [facility] Glucagon () 1 mg IM .X1 PRN PRN Reason: Hypoglycemia Piperacillin Sod/Tazobactam Sod (Zosyn) 3.375 gm in 50 mls @ 12.5 mls/hr IV Q8 [facility] Last Admin: 05/26/18 05:55 Dose: 12.5 mls/hr Vancomycin IV Pharmacy to Dose (1 ea/ Sodium Chloride) 500 mls @ 250 mls/hr IV X1 PRN; Protocol PRN Reason: Rx to Dose Sodium Chloride () 250 mls @ 15 mls/hr IV .[id number] PRN PRN Reason: SALINE FLUSH Last Admin: 05/26/18 05:55 Dose: 15 mls/hr Vancomycin HCl () 500 mg in 100 mls @ 100 mls/hr IV Q12H [facility] Last Admin: 05/26/18 08:18 Dose: 100 mls/hr Isosorbide Mononitrate (Imdur) 30 mg PO QAM [facility] Magnesium Hydroxide (Milk Of Magnesia) 30 ml PO DAILY PRN PRN PRN Reason: Constipation Metoprolol Tartrate (Lopressor (Beta Martha)) 12.5 mg PO BID [facility] Last Admin: 05/25/18 22:06 Dose: 12.5 mg Morphine Sulfate () 2 - 4 mg IV Q3H PRN PRN PRN Reason: Severe Pain (pain scale 6-10) Morphine Sulfate () 1 - 2 mg IV Q4H PRN PRN PRN Reason: Moderate Pain (pain scale 4-5) Nicotine (Nicoderm Cq (Pbkc)) 14 mg TRANSDERM. DAILY [facility] Last Admin: 05/25/18 22:07 Dose: 14 mg Ondansetron HCl (Zofran) 4 mg IV Q8H PRN PRN PRN Reason: NAUSEA Oxycodone HCl (Oxyir) 5 mg PO Q4H PRN PRN PRN Reason: Moderate Pain (pain scale 4-5) Last Admin: 05/26/18 03:30 Dose: 5 mg Pantoprazole Sodium (Protonix) 40 mg PO BID [facility] Last Admin: 05/25/18 22:06 Dose: 40 mg Pregabalin (Lyrica) 75 mg PO BID [facility] Last Admin: 05/25/18 22:07 Dose: 75 mg Sodium Chloride () 5 - 30 ml IV UD PRN PRN Reason: SALINE FLUSH Zolpidem Tartrate (Ambien (Generic)) 5 mg PO QHS PRN PRN PRN Reason: INSOMNIA Medical Necessity - Tobacco Use Smoking Status: Current every day smoker Tobacco Use: Cigarettes Assessment/Plan All Active Problems (Last Reviewed 04/07/18 @ 17:04 by Pancho Mantilla DO) Closed left ankle fracture (Acute) Left ankle pain (Acute) Risk for falls (Acute) Cellulitis of leg, left (Acute) GI bleed (Resolved) [place] (acute kidney injury) (Resolved) Acute exacerbation of chronic obstructive pulmonary disease (Resolved) Bradycardia (Resolved) COPD with acute exacerbation (Resolved) Gram-negative pneumonia (Resolved) History of colonoscopy (Resolved) History of endoscopy (Resolved) Hypotension (Resolved) Hypoxia (Resolved) Subconjunctival hematoma (Resolved) 1. LLE incisional cellulitis * Had a left ankle fracture not open reduction internal fixation in March 2018. * currently on IV vancomycin and zosyn. * has no complaints; pain is well controlled * is afebrile; cultures pending * podiatry on board; per their recs, continue conservative management for now with antibiotics and to have 50% weightbearing as tolerated in the calm walker boot. * 2. Valvular heart disease s/p mechanical aotic valve replacement * On Coumadin. INR today is 3. * 3. Successful atrial fibrillation: On beta-martha. On Coumadin. INR today is 3. 4. COPD: Saturating well on room air. On breathing treatments. 5. Hypertension: Controlled: Metoprolol, Imdur and Lasix. As needed hydralazine. 6. Iron deficiency anemia: Stable. On iron supplementation. 7. Hyperlipidemia: On statin 8. CAD status post CABG: * Aspirin. On statin and beta-martha. 9. 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 Not on NABIL or arm. Reason is not clear. * Follow-up with motor polarizer on discharge. * 10. GERD. on PPI DVT prophylaxis: on coumadin. Code Visit Inpatient E&M: 27969 [facility] L3
[2018-05-26] MEDS: Pantoprazole Sodium 40 MG Tablet PO ×2 (10:01→22:38)
[2018-05-26] MEDS: Metoprolol Tartrate 25 MG Tablet 12.5 MG PO ×2 (10:01→22:38)
[2018-05-26] MEDS: Isosorbide Mononitrate 30 MG Tablet PO (10:02)
[2018-05-26] MEDS: Furosemide 40 MG Tablet PO (10:02)
[2018-05-26] MEDS: Pregabalin 75 MG Capsule PO ×2 (10:15→22:39)
--- NOTE | 2018-05-26 12:04 | CASEMGMT ---
RN CM Note: Home Health updated re: addition of PT/OT on discharge. Naty RASHID RN ACM
--- NOTE | 2018-05-26 13:08 | PCM.HP.ID ---
Problem List (1) Cellulitis of leg, left Status: Acute Reason for Consult: cellulitis Consulted by: Dr. Tejada History of Present Illness: The patient is a 78 year old M with [facility] AVR and 04/07/18 L ankle ORIF by Dr. Villarreal who presented yesterday due to sudden onset L ankle pain, redness, drainage. Wound had been doing well prior to this point. Noticed sx when boot was taken off. No fever or chills. Saw some bloody drainage. Came to ED, given vanc/zosyn, cxs pending. Full ROS performed and neg except as noted above. 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):06/28/2011 prior to PTCA and BMS to mid LAD, BMS to the mid distal CX, and BMS to the proximal CX @ [facility] History of left heart catheterization (Chronic) 03/27/1993 [facility] prior to CABG X1 and AVR; 06/28/2011 prior to PTCA and BMS to mid LAD, BMS to the mid distal CX, and BMS to the proximal CX @ [facility] History of aortic valve replacement (Chronic) 03/27/1993: RED to LAD and 23mm [facility]ach[facility] Mechanical AVR placed for severe per Dr. Darrell Shaw, [facility] S/P CABG x 1 (Chronic) 03/27/1993: RED to LAD and 23mm [facility] 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 HERNANDEZ Allergies/Adverse Reactions: Allergies No Known Allergies Allergy (Verified 05/25/18 16:59) Home Medications: Ambulatory Orders Medication Instructions Recorded Rosuvastatin Calcium [Crestor] 40 mg PO QHS 07/15/13 Ferrous Sulfate 325 mg PO BIDCM 09/13/15 Albuterol Sulfate [Proair 1 puff INHALATION Q4H PRN PRN 09/25/15 Respiclick] Cholecalciferol (VIT D3) [Vitamin 2,000 unit PO DAILY 09/25/15 D3] Nitroglycerin [Nitrostat] 0.4 mg SUBLINGUAL Q5M PRN #30 tab 09/26/15 Aspirin E.C. [Ecotrin] 81 mg PO DAILY@0800 06/24/16 Folic Acid 1 mg PO QHS 06/24/16 Ipratropium/Albuterol Sulfate 3 ml INHALATION Q4H PRN PRN #30 11/02/16 [Duoneb] ampul.neb Metoprolol Tartrate [Lopressor 12.5 mg PO BID 01/20/17 (beta zach)] Docusate Sodium [Colace] 200 mg PO BID PRN PRN cap 01/27/17 Budesonide/Formoterol 160/4.5 2 puff INHALATION BID 02/08/17 [Symbicort 160/4.5 Mcg Inhaler (SP)] Furosemide [Lasix] 40 mg PO DAILY 02/08/17 isosorbide mononitrate ER 30 mg 30 mg PO QAM 11/21/17 tablet,extended release 24 hr pantoprazole 40 mg tablet,delayed 40 mg PO BID tab 01/02/18 release warfarin 5 mg tablet 5 mg PO SUTUTH tab 01/02/18 warfarin 7.5 mg tablet 7.5 mg PO MOWEFRSA tab 01/02/18 Celecoxib [Celebrex] 200 mg PO DAILY 05/26/18 Oxycodone HCl/Acetaminophen 1 tab PO Q6H PRN PRN 05/26/18 [Percocet 7.5-325 mg Tablet] Pregabalin [Lyrica] 1 tab PO BID 05/26/18 Zolpidem Tartrate [Ambien] 10 mg PO QHS 05/26/18 - Social History SMOKING STATUS:: Current every day smoker Vital Signs Temp Pulse Resp BP Pulse Ox 97.9 F 61 16 106/63 94 05/26/18 09:57 05/26/18 10:01 05/26/18 09:57 05/26/18 10:01 05/26/18 09:57 Oxygen Delivery Method Room Air Weight: 72.8 kg Body Mass Index (BMI) 23.0 Microbiology Past 72 Hours 05/25/18 18:05 Gram Stain - Final Wound - Ankle Wound Culture - Preliminary Gram negative hilario GPC Poss Enterococcus sp Laboratory Tests Past 24 Hrs 05/25/18 05/25/18 05/25/18 17:40 17:40 17:40 WBC 6.7 RBC 4.07 L Hgb 11.9 L Hct 38.0 L MCV 93.4 MCH 29.2 MCHC 31.3 L RDW 14.4 RDW Differential 48.8 H Plt Count 214 MPV 10.4 Immature Gran % (Auto) 0.000 Neut % (Auto) 75.1 H Lymph % (Auto) 14.7 L [place] % (Auto) 8.9 Eos % (Auto) 0.9 Baso % (Auto) 0.4 Absolute Neuts (auto) 5.0 Absolute Lymphs (auto) 0.99 Total Counted Not Reportable ESR 30 H PT 30.8 H INR 2.9 Sodium 141 Potassium 3.9 Chloride 104 Carbon Dioxide 32.0 Anion Gap 5 BUN 19 H Creatinine 1.07 Estim Creat Clear Calc 56.85 Est GFR (MDRD) Af Amer 86 Est GFR (MDRD) Non-Af 71 BUN/Creatinine Ratio 17.8 Glucose 97 Calcium 8.9 Magnesium C-React Prot Ext Range 61.60 H S.aureus Protein A PCR MRSA (PCR) 05/25/18 05/25/18 05/26/18 17:40 21:17 05:17 WBC 5.3 RBC 3.86 L Hgb 11.3 L Hct 36.1 L MCV 93.5 MCH 29.3 MCHC 31.3 L RDW 14.2 RDW Differential 47.0 H Plt Count 189 MPV 10.9 Immature Gran % (Auto) 0.400 Neut % (Auto) 70.4 H Lymph % (Auto) 16.4 L [place] % (Auto) 10.2 H Eos % (Auto) 1.7 Baso % (Auto) 0.9 Absolute Neuts (auto) 3.8 Absolute Lymphs (auto) 0.87 Total Counted Not Reportable ESR PT INR Sodium Potassium Chloride Carbon Dioxide Anion Gap BUN Creatinine Estim Creat Clear Calc Est GFR (MDRD) Af Amer Est GFR (MDRD) Non-Af BUN/Creatinine Ratio Glucose Calcium Magnesium 2.0 C-React Prot Ext Range S.aureus Protein A PCR POSITIVE H MRSA (PCR) Negative 05/26/18 05/26/18 05:17 05:17 WBC RBC Hgb Hct MCV MCH MCHC RDW RDW Differential Plt Count MPV Immature Gran % (Auto) Neut % (Auto) Lymph % (Auto) [place] % (Auto) Eos % (Auto) Baso % (Auto) Absolute Neuts (auto) Absolute Lymphs (auto) Total Counted ESR PT 31.0 H INR 3.0 Sodium 142 Potassium 3.9 Chloride 105 Carbon Dioxide 29.0 Anion Gap 8 BUN 21 H Creatinine 1.04 Estim Creat Clear Calc 58.33 Est GFR (MDRD) Af Amer 88 Est GFR (MDRD) Non-Af 73 BUN/Creatinine Ratio 20.2 H Glucose 99 Calcium 8.5 Magnesium C-React Prot Ext Range S.aureus Protein A PCR MRSA (PCR) - Other Studies Radiology: [] reviewed Other Studies: [] Route of nutrition/ use of supplements: [] Nutritional Intake: [] IV Site: [] Howell Catheter: [] - Physical Exam General: Alert, Cooperative, No apparent distress HEENT: Atraumatic, PERRLA, EOMI Neck: Supple, No Nodes Lungs: Clear to auscultation, Normal air movement Cardiovascular: Regular rate, Regular Rhythm Abdomen: Soft, Non Tender, Non-Distended Skin: Ulcer/ Wound - L ankle redness lateral IV Site: Peripheral, without redness Neurological: Cranial nerves II-XII grossly intact - Assessment/Plan Antibiotics: [] Assessment/Plan: [] Active and Suspected Problems (Last Reviewed 04/07/18 @ 17:04 by Pancho Mantilla DO) Cellulitis of leg, left (Acute) L ankle surg site infection s/p ORIF 04/07/[address] Villarreal - wound cx with enterococcus-like and GNR, pcr showing mSSA. Continue vanc/zosyn for now. May need MRI or CT to eval for deeper involvement depending on clinical progress. No fever, no leukocytosis. . Will follow, thank you.
--- NOTE | 2018-05-26 13:12 | CON.PCM_ITS ---
Problem List (1) Cellulitis of leg, left Status: Acute Reason for Consult: cellulitis Consulted by: Dr. Tejada History of Present Illness: The patient is a 78 year old M with [facility] AVR and 04/07/18 L ankle ORIF by Dr. Villarreal who presented yesterday due to sudden onset L ankle pain, redness, drainage. Wound had been doing well prior to this point. Noticed sx when boot was taken off. No fever or chills. Saw some bloody drainage. Came to ED, given vanc/zosyn, cxs pending. Full ROS performed and neg except as noted above. - Medical History Past Medical History (Chronic Problems): Chronic Problems (Last Reviewed 04/07/18 @ 17:04 by Pancho Mantilla DO) Intractable pain (Chronic) Trimalleolar fracture of ankle, closed (Chronic) Non-rheumatic tricuspid valve insufficiency (Chronic) Secondary pulmonary arterial hypertension (Chronic) Chronic systolic (congestive) heart failure (Chronic) Ischemic cardiomyopathy (Chronic) History of coronary artery stent placement (Chronic) 06/28/2011 prior to PTCA and BMS (3.0 mm X 18 mm long Integrity stent) to mid LAD, BMS to the mid distal CX (4.5 X 16mm Veriflex stent), and BMS to the proximal CX (3.5 X 15 mm Integrity stent) @ [facility] Atherosclerotic heart disease of [place] coronary artery without angina pectoris (Chronic) 03/27/1993: RED to LAD (CABG X1 along with AVR, [facility]):06/28/2011 prior to PTCA and BMS to mid LAD, BMS to the mid distal CX, and BMS to the proximal CX @ [facility] History of left heart catheterization (Chronic) 03/27/1993 [facility] prior to CABG X1 and AVR; 06/28/2011 prior to PTCA and BMS to mid LAD, BMS to the mid distal CX, and BMS to the proximal CX @ [facility] History of aortic valve replacement (Chronic) 03/27/1993: RED to LAD and 23mm [facility] Rachid Mechanical AVR placed for severe per Dr. Darrell Shaw, [facility] S/P CABG x 1 (Chronic) 03/27/1993: RED to LAD and 23mm [facility] 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 HERNANDEZ Allergies/Adverse Reactions: Allergies No Known Allergies Allergy (Verified 05/25/18 16:59) Home Medications: Ambulatory Orders Medication Instructions Recorded Rosuvastatin Calcium [Crestor] 40 mg PO QHS 07/15/13 Ferrous Sulfate 325 mg PO BIDCM 09/13/15 Albuterol Sulfate [Proair 1 puff INHALATION Q4H PRN PRN 09/25/15 Respiclick] Cholecalciferol (VIT D3) [Vitamin 2,000 unit PO DAILY 09/25/15 D3] Nitroglycerin [Nitrostat] 0.4 mg SUBLINGUAL Q5M PRN #30 tab 09/26/15 Aspirin E.C. [Ecotrin] 81 mg PO DAILY@0800 06/24/16 Folic Acid 1 mg PO QHS 06/24/16 Ipratropium/Albuterol Sulfate 3 ml INHALATION Q4H PRN PRN #30 11/02/16 [Duoneb] ampul.neb Metoprolol Tartrate [Lopressor 12.5 mg PO BID 01/20/17 (beta zach)] Docusate Sodium [Colace] 200 mg PO BID PRN PRN cap 01/27/17 Budesonide/Formoterol 160/4.5 2 puff INHALATION BID 02/08/17 [Symbicort 160/4.5 Mcg Inhaler (SP)] Furosemide [Lasix] 40 mg PO DAILY 02/08/17 isosorbide mononitrate ER 30 mg 30 mg PO QAM 11/21/17 tablet,extended release 24 hr pantoprazole 40 mg tablet,delayed 40 mg PO BID tab 01/02/18 release warfarin 5 mg tablet 5 mg PO SUTUTH tab 01/02/18 warfarin 7.5 mg tablet 7.5 mg PO MOWEFRSA tab 01/02/18 Celecoxib [Celebrex] 200 mg PO DAILY 05/26/18 Oxycodone HCl/Acetaminophen 1 tab PO Q6H PRN PRN 05/26/18 [Percocet 7.5-325 mg Tablet] Pregabalin [Lyrica] 1 tab PO BID 05/26/18 Zolpidem Tartrate [Ambien] 10 mg PO QHS 05/26/18 - Social History SMOKING STATUS:: Current every day smoker Vital Signs Temp Pulse Resp BP Pulse Ox 97.9 F 61 16 106/63 94 05/26/18 09:57 05/26/18 10:01 05/26/18 09:57 05/26/18 10:01 05/26/18 09:57 Oxygen Delivery Method Room Air Weight: 72.8 kg Body Mass Index (BMI) 23.0 Microbiology Past 72 Hours 05/25/18 18:05 Gram Stain - Final Wound - Ankle Wound Culture - Preliminary Gram negative hilario GPC Poss Enterococcus sp Laboratory Tests Past 24 Hrs 05/25/18 05/25/18 05/25/18 17:40 17:40 17:40 WBC 6.7 RBC 4.07 L Hgb 11.9 L Hct 38.0 L MCV 93.4 MCH 29.2 MCHC 31.3 L RDW 14.4 RDW Differential 48.8 H Plt Count 214 MPV 10.4 Immature Gran % (Auto) 0.000 Neut % (Auto) 75.1 H Lymph % (Auto) 14.7 L [place] % (Auto) 8.9 Eos % (Auto) 0.9 Baso % (Auto) 0.4 Absolute Neuts (auto) 5.0 Absolute Lymphs (auto) 0.99 Total Counted Not Reportable ESR 30 H PT 30.8 H INR 2.9 Sodium 141 Potassium 3.9 Chloride 104 Carbon Dioxide 32.0 Anion Gap 5 BUN 19 H Creatinine 1.07 Estim Creat Clear Calc 56.85 Est GFR (MDRD) Af Amer 86 Est GFR (MDRD) Non-Af 71 BUN/Creatinine Ratio 17.8 Glucose 97 Calcium 8.9 Magnesium C-React Prot Ext Range 61.60 H S.aureus Protein A PCR MRSA (PCR) 05/25/18 05/25/18 05/26/18 17:40 21:17 05:17 WBC 5.3 RBC 3.86 L Hgb 11.3 L Hct 36.1 L MCV 93.5 MCH 29.3 MCHC 31.3 L RDW 14.2 RDW Differential 47.0 H Plt Count 189 MPV 10.9 Immature Gran % (Auto) 0.400 Neut % (Auto) 70.4 H Lymph % (Auto) 16.4 L [place] % (Auto) 10.2 H Eos % (Auto) 1.7 Baso % (Auto) 0.9 Absolute Neuts (auto) 3.8 Absolute Lymphs (auto) 0.87 Total Counted Not Reportable ESR PT INR Sodium Potassium Chloride Carbon Dioxide Anion Gap BUN Creatinine Estim Creat Clear Calc Est GFR (MDRD) Af Amer Est GFR (MDRD) Non-Af BUN/Creatinine Ratio Glucose Calcium Magnesium 2.0 C-React Prot Ext Range S.aureus Protein A PCR POSITIVE H MRSA (PCR) Negative 05/26/18 05/26/18 05:17 05:17 WBC RBC Hgb Hct MCV MCH MCHC RDW RDW Differential Plt Count MPV Immature Gran % (Auto) Neut % (Auto) Lymph % (Auto) [place] % (Auto) Eos % (Auto) Baso % (Auto) Absolute Neuts (auto) Absolute Lymphs (auto) Total Counted ESR PT 31.0 H INR 3.0 Sodium 142 Potassium 3.9 Chloride 105 Carbon Dioxide 29.0 Anion Gap 8 BUN 21 H Creatinine 1.04 Estim Creat Clear Calc 58.33 Est GFR (MDRD) Af Amer 88 Est GFR (MDRD) Non-Af 73 BUN/Creatinine Ratio 20.2 H Glucose 99 Calcium 8.5 Magnesium C-React Prot Ext Range S.aureus Protein A PCR MRSA (PCR) - Other Studies Radiology: [] reviewed Other Studies: [] Route of nutrition/ use of supplements: [] Nutritional Intake: [] IV Site: [] Howell Catheter: [] - Physical Exam General: Alert, Cooperative, No apparent distress HEENT: Atraumatic, PERRLA, EOMI Neck: Supple, No Nodes Lungs: Clear to auscultation, Normal air movement Cardiovascular: Regular rate, Regular Rhythm Abdomen: Soft, Non Tender, Non-Distended Skin: Ulcer/ Wound - L ankle redness lateral IV Site: Peripheral, without redness Neurological: Cranial nerves II-XII grossly intact - Assessment/Plan Antibiotics: [] Assessment/Plan: [] Active and Suspected Problems (Last Reviewed 04/07/18 @ 17:04 by Pancho Mantilla DO) Cellulitis of leg, left (Acute) L ankle surg site infection s/p ORIF 04/07/[address] Villarreal - wound cx with enterococcus-like and GNR, pcr showing mSSA. Continue vanc/zosyn for now. May need MRI or CT to eval for deeper involvement depending on clinical progress. No fever, no leukocytosis. . Will follow, thank you.
[2018-05-26] MEDS: Atorvastatin Calcium 80 MG Tablet PO (22:39)
[2018-05-26] MEDS: Folic Acid 1 MG Tablet PO (22:39)
[2018-05-27] VITALS (11 sets, daily range): BP systolic 109–127; BP diastolic 57–64; PULSE 53–67; RESP 16–19; TEMP 36.3–36.8; O2SAT 95–97
[2018-05-27] MEDS: Acetaminophen 325 MG Tablet 650 MG PO (00:02)
[2018-05-27] MEDS: Morphine 2 MG/ML Syringe IV ×4 (03:24→21:52)
[2018-05-27] MEDS: Piperacil/Tazobactam 3.375 GM/50 ML ML IV ×3 (06:21→21:57)
--- NOTE | 2018-05-27 06:43 | PN_ITS ---
Patient Problems: Active and Suspected Problems (Last Reviewed 04/07/18 @ 17:04 by Pancho Mantilla DO) Cellulitis of leg, left (Acute) Subjective: This 78-year-old male was seen bedside for follow-up of left lower extremity cellulitis. He reports his pain is decreased to a 4 out of 10 and he is now able to move his ankle much better. He has been receiving IV vancomycin and Zosyn for treatment so far and has been elevating the limb. He denies drainage or odor coming from the limb. He denies current fever, chill, nausea, vomiting, chest pain, shortness of breath, calf pain. - Physical Exam General: Alert, Oriented x3, Cooperative Skin: - - The skin is intact to left lower extremity without ulcer, drainage, or streaking. The incision site remains healed. The erythema and inflammation around the previously healed incision site has decreased and this is less tender to touch. There is no fluctuance or bogginess on palpation. His lower extremity skin is dry, atrophic, hairless bilateral lower extremities. There is no interdigital maceration. Musculoskeletal: No Tenderness to Palpation of Joints or Extremities, Muscle Wasting, - - Palpation pain reduced to lateral ankle. The compartments remain soft the left lower extremity. No pain on palpation to the ankle joint line or with passive range of motion which is smooth and gliding. Muscle strength is 5 out of 5 the ankle in all directions left lower extremity Neurological: Sensory exam intact to light touch and pain Psych/Mental Status: Normal Affect, Appropriate Vital Signs Temp Pulse Resp BP Pulse Ox 97.4 F L 55 L 16 127/57 H 97 05/27/18 03:16 05/27/18 03:16 05/27/18 03:16 05/27/18 03:16 05/27/18 03:16 Oxygen Delivery Method Room Air Weight: 72.8 kg Body Mass Index (BMI) 23.0 Intake and Output for Last 24 Hours 05/25/18 05/26/18 05/27/18 23:59 23:59 23:59 Intake Total 1832 / 1832 605.5 / 605.5 Output Total 850 / 850 675 / 675 Balance 982 / 982 -69.5 / -69.5 Microbiology Past 72 Hours 05/25/18 18:05 Gram Stain - Final Wound - Ankle Wound Culture - Preliminary Gram negative hilario GPC Poss Enterococcus sp POC Glucose 05/26/18 06:04 POC Glucose 111 H Medical Necessity - Tobacco Use Smoking Status: Current every day smoker Tobacco Use: Cigarettes Assessment/Plan All Active Problems (Last Reviewed 04/07/18 @ 17:04 by Pancho Mantilla DO) Closed left ankle fracture (Acute) Left ankle pain (Acute) Risk for falls (Acute) Cellulitis of leg, left (Acute) GI bleed (Resolved) [place] (acute kidney injury) (Resolved) Acute exacerbation of chronic obstructive pulmonary disease (Resolved) Bradycardia (Resolved) COPD with acute exacerbation (Resolved) Gram-negative pneumonia (Resolved) History of colonoscopy (Resolved) History of endoscopy (Resolved) Hypotension (Resolved) Hypoxia (Resolved) Subconjunctival hematoma (Resolved) Left lower extremity cellulitis - improving Left lower extremity pain Approximately 6 weeks status post open reduction internal fixation trimalleolar ankle fracture Other comorbidities noted I examined this patient and there is no apparent drainage or wound noted bedside this morning. He is demonstrating clinical improvement. The left lower extremity limb was gently cleansed with soap. Moisturization cream was applied and I recommend performing this one to two times daily to improve skin integrity; his skin is very dry. His blood cultures are pending and are without growth so far. It is noted he did not have leukocytosis. To continue to elevate limb. His x-rays were reviewed and osseous bridging is noted at the fracture repair site. There is no osteolysis around the hardware or alteration in initial hardware placement. Infectious disease on consultation and input is greatly appreciated. The wound culture obtained by another care provider at the time of admission demonstrates enterococcus-like and GNR; pcr MSSA. He is currently on vancomycin and Zosyn intravenously. Pending continued response and continued culture finalization this broad-spectrum coverage may be narrowed down and transition to an oral antibiotic for discharge home will be considered. He understands if his status starts worsening, additional imaging will be obtained to rule out deeper involvement. He is doing much better at this time. It is okay for him to begin 50% weightbearing as tolerated in the cam walker boot. I will continue to follow him close while in house. Please not hesitate to call if you have any questions. Mary Alice Villarreal DPM, [facility] [phone]
[2018-05-27] MEDS: Ipratropium/Albuterol Sulfate 3 ML AMPUL.NEB INHALATION ×2 (06:49→19:11)
[2018-05-27] MEDS: Budesonide Respules 0.5 MG/2 ML AMPUL.NEB. INHALATION ×2 (06:49→19:11)
[2018-05-27] MEDS: Vancomycin IV 500 MG/100 ML BAG 100 MG IV ×2 (08:03→19:46)
[2018-05-27] MEDS: Pantoprazole Sodium 40 MG Tablet PO ×2 (08:04→21:50)
[2018-05-27] MEDS: Aspirin E.C. 81 MG Tablet PO (08:04)
[2018-05-27] MEDS: Ferrous Sulfate 325 MG Tablet PO ×2 (08:04→17:59)
[2018-05-27] MEDS: Isosorbide Mononitrate 30 MG Tablet PO (08:04)
[2018-05-27] MEDS: 0.9% NaCl Peripheral Flush Adult/Peds IV ×3 (08:14→18:05)
[2018-05-27 09:08] LABS: Absolute Lymphocyte Count 0.88 X10^3/ul (0.83-4.51); Absolute Neutrophil Count 4.3 X10^3/uL (2.0-7.7); Basophil# 0.03 X10^3/uL; Basophil% 0.5 % (0-1); Eosinophils% 1.8 % (0-5); Hematocrit 36.8 % (40-54); Hemoglobin 11.4 g/dl (13.0-16.5); Lymphocyte # 0.88 X10^3/ul (4.0); Lymphocyte % 15.6 % (19-41); Mean Corpuscular Hgb 28.8 pg (27.0-32.0); Mean Corpuscular Volume 92.9 fL (80-94); Mean Platelet Vol. 10.6 fl (6.2-12.0); Monocyte# 0.36 X10^3/uL; Monocyte% 6.4 % (0-10); Neutrophil # 4.27 X10^3/uL (2.7-7.7); Neutrophil % 75.5 % (47-70); Platelet Count 204 K/mm3 (150-450); RBC Distribution Width CV 14.4 % (11.6-14.6); RBC Distribution Width SD 48.7 fl (35.1-43.9); Red Blood Count 3.96 M/mm3 (4.6-6.2); White Blood Count 5.7 K/mm3 (4.4-11.0)
[2018-05-27 09:09] LABS: POSITIVE COUNT NO; POSITIVE DIFFERENTIAL NO; POSITIVE MORPHOLOGY NO
[2018-05-27 09:17] LABS: International Normalized Ratio 2.6; Prothrombin Time (Protime)PT. 27.6 SECONDS (11.7-14.9)
[2018-05-27 09:21] LABS: Anion Gap 5 (5-15); BUN 23 mg/dL (7-18); BUN/Creat Ratio 21.1 RATIO (10-20); Calcium,Total 8.4 mg/dL (8.5-10.1); Chloride 104 mmol/L (98-107); Creatinine, Serum 1.09 mg/dL (0.70-1.30); EST Glomerular Filtration Rate 69 mL/min (>60); Est Glom Filt Rate - Afr Amer 84 mL/min (>60); Estimated Creatinine Clearance 55.66 ml/min; Glucose 111 mg/dL (74-106); Potassium 3.6 mmol/L (3.5-5.1); Sodium Level 140 mmol/L (136-145)
--- NOTE | 2018-05-27 09:59 | PCM.PN.HOSP ---
Patient Problems: Active and Suspected Problems (Last Reviewed 04/07/18 @ 17:04 by Pancho Mantilla DO) Cellulitis of leg, left (Acute) Subjective: Patient seen and examined. He has no complaints and feels well. He denies any fever or chills, cough or chest pain, shortness of breath abdominal pain, any diarrhea vomiting. Pain in left lower extremity is well controlled. Labs and vitals reviewed. Review of systems otherwise negative. Vitals/I&O's: Vital Signs Temp Pulse Resp BP Pulse Ox 97.4 F L 54 L 16 114/61 97 05/27/18 07:56 05/27/18 07:56 05/27/18 07:56 05/27/18 07:56 05/27/18 07:56 Oxygen Delivery Method Room Air Weight: 160 lb 7.944 oz Body Mass Index (BMI) 23.0 Intake and Output for Last 24 Hours 05/25/18 05/26/18 05/27/18 23:59 23:59 23:59 Intake Total 1832 / 1832 605.5 / 605.5 Output Total 850 / 850 675 / 675 Balance 982 / 982 -69.5 / -69.5 General: Alert, Oriented x3, Cooperative, No apparent distress HEENT: Atraumatic, PERRLA, EOMI, Normocephalic Oral: Moist Mucosa Neck: Supple Lungs: Clear to auscultation, Normal air movement, No rhonchi, No wheeze, No rales Cardiovascular: Regular rate, Regular Rhythm, Normal S1, Normal S2, No murmurs Abdomen: Bowel Sounds Present, Soft, Non Tender, Non-Distended, No Hepato-splenomegaly Extremities: No clubbing, No cyanosis, No edema, - - mild erythema over ankle, well healed incision. minimal tenderness and differential warmth Skin: No rashes, No breakdown Musculoskeletal: No Tenderness to Palpation of Joints or Extremities Lymphatic: No Cervical, Supraclavicular, or Inguinal Adenopathy Neurological: Cranial nerves II-XII grossly intact, Neuro grossly intact, Motor Exam 5/5 strength throughout Psych/Mental Status: Normal Affect, Appropriate, Alert and oriented to time, place, person, mood and affect Microbiology Past 72 Hours 05/25/18 18:05 Wound - Ankle Gram Stain - Final 05/25/18 18:05 Wound - Ankle Wound Culture - Preliminary Morganella morganii sp morgani GPC Poss Enterococcus sp Laboratory Results 05/27/18 08:56: PT 27.6 H, INR 2.6 05/27/18 08:56: Vancomycin Trough Pending 05/27/18 08:56: WBC 5.7, RBC 3.96 L, Hgb 11.4 L, Hct 36.8 L, MCV 92.9, MCH 28.8, MCHC 31.0 L, RDW 14.4, RDW Differential 48.7 H, Plt Count 204, MPV 10.6, Immature Gran % (Auto) 0.200, Neut % (Auto) 75.5 H, Lymph % (Auto) 15.6 L, [place] % (Auto) 6.4, Eos % (Auto) 1.8, Baso % (Auto) 0.5, Absolute Neuts (auto) 4.3, Absolute Lymphs (auto) 0.88, Total Counted Not Reportable 05/27/18 08:56: Sodium 140, Potassium 3.6, Chloride 104, Carbon Dioxide 31.0, Anion Gap 5, BUN 23 H, Creatinine 1.09, Estim Creat Clear Calc 55.66, Est GFR (MDRD) Af Amer 84, Est GFR (MDRD) Non-Af 69, BUN/Creatinine Ratio 21.1 H, Glucose 111 H, Calcium 8.4 L Current Medications Acetaminophen (Tylenol) 650 mg PO Q6H PRN PRN PRN Reason: Mild Pain (scale 0-3)/T>100.7 Last Admin: 05/27/18 00:02 Dose: 650 mg Al Hydroxide/Mg Hydroxide (Mylanta Ii) 30 ml PO Q6H PRN PRN PRN Reason: Gastric burning Albuterol Sulfate (Ventolin Aerosols) 2.5 mg INHALATION Q2H PRN PRN PRN Reason: dyspnea, wheezing Albuterol/Ipratropium (Duoneb) 3 ml INHALATION Q6HWA.RT [facility] Last Admin: 05/27/18 06:49 Dose: 3 ml Aspirin (Ecotrin) 81 mg PO DAILY@0800 [facility] Last Admin: 05/27/18 08:04 Dose: 81 mg Atorvastatin Calcium (Lipitor) 80 mg PO QHS [facility] Last Admin: 05/26/18 22:39 Dose: 80 mg Budesonide (Pulmicort Aerosol) 0.5 mg INHALATION Q12H.RT [facility] Last Admin: 05/27/18 06:49 Dose: 0.5 mg Celecoxib (Celebrex) 200 mg PO DAILY [facility] Cholecalciferol (Vitamin D) 2,000 unit PO DAILY [facility] Last Admin: 05/27/18 08:04 Dose: 2,000 unit Dextrose (D50w Syringe) 0 gm IV X1 PRN; Protocol PRN Reason: Hypoglycemia Docusate Sodium (Colace) 200 mg PO BID PRN PRN PRN Reason: Constipation Ferrous Sulfate (Ferrous Sulfate) 325 mg PO BIDCM [facility] Last Admin: 05/27/18 08:04 Dose: 325 mg Folic Acid (Folic Acid) 1 mg PO QHS [facility] Last Admin: 05/26/18 22:39 Dose: 1 mg Furosemide (Lasix) 40 mg PO DAILY [facility] Last Admin: 05/26/18 10:02 Dose: 40 mg Glucagon () 1 mg IM .X1 PRN PRN Reason: Hypoglycemia Piperacillin Sod/Tazobactam Sod (Zosyn) 3.375 gm in 50 mls @ 12.5 mls/hr IV Q8 [facility] Last Admin: 05/27/18 06:21 Dose: 12.5 mls/hr Vancomycin IV Pharmacy to Dose (1 ea/ Sodium Chloride) 500 mls @ 250 mls/hr IV X1 PRN; Protocol PRN Reason: Rx to Dose Sodium Chloride () 250 mls @ 15 mls/hr IV .[id number] PRN PRN Reason: SALINE FLUSH Last Admin: 05/26/18 05:55 Dose: 15 mls/hr Vancomycin HCl () 500 mg in 100 mls @ 100 mls/hr IV Q12H [facility] Last Admin: 05/27/18 08:03 Dose: 100 mls/hr Isosorbide Mononitrate (Imdur) 30 mg PO QAM [facility] Last Admin: 05/27/18 08:04 Dose: 30 mg Lactic Acid (Lac-Hydrin, Amlactin) 1 applic TOPICAL BID [facility]; Protocol Magnesium Hydroxide (Milk Of Magnesia) 30 ml PO DAILY PRN PRN PRN Reason: Constipation Metoprolol Tartrate (Lopressor (Beta Martha)) 12.5 mg PO BID [facility] Last Admin: 05/26/18 22:38 Dose: 12.5 mg Morphine Sulfate () 2 - 4 mg IV Q3H PRN PRN PRN Reason: Severe Pain (pain scale 6-10) Morphine Sulfate () 1 - 2 mg IV Q4H PRN PRN PRN Reason: Moderate Pain (pain scale 4-5) Last Admin: 05/27/18 03:24 Dose: 2 mg Nicotine (Nicoderm Cq (Pbkc)) 14 mg TRANSDERM. DAILY [facility] Last Admin: 05/26/18 10:02 Dose: 14 mg Nitroglycerin (Nitrostat) 0.4 mg SUBLINGUAL Q5M PRN PRN Reason: Chest Pain Ondansetron HCl (Zofran) 4 mg IV Q8H PRN PRN PRN Reason: NAUSEA Oxycodone HCl (Oxyir) 5 mg PO Q4H PRN PRN PRN Reason: Moderate Pain (pain scale 4-5) Last Admin: 05/26/18 22:39 Dose: 5 mg Pantoprazole Sodium (Protonix) 40 mg PO BID [facility] Last Admin: 05/27/18 08:04 Dose: 40 mg Pregabalin (Lyrica) 75 mg PO BID [facility] Last Admin: 05/26/18 22:39 Dose: 75 mg Sodium Chloride () 5 - 30 ml IV UD PRN PRN Reason: SALINE FLUSH Last Admin: 05/27/18 08:14 Dose: 10 ml Warfarin Sodium (Coumadin (Pbkc)) 5 mg PO SuTuTh@1700 [facility] Warfarin Sodium (Coumadin (Pbkc)) 7.5 mg PO MoWeFrSa@1700 [facility] Last Admin: 05/26/18 16:43 Dose: Not Given Zolpidem Tartrate (Ambien (Generic)) 5 mg PO QHS PRN PRN PRN Reason: INSOMNIA Medical Necessity - Tobacco Use Smoking Status: Current every day smoker Tobacco Use: Cigarettes Assessment/Plan All Active Problems (Last Reviewed 04/07/18 @ 17:04 by Pancho Mantilla DO) Closed left ankle fracture (Acute) Left ankle pain (Acute) Risk for falls (Acute) Cellulitis of leg, left (Acute) GI bleed (Resolved) SALVADOR (acute kidney injury) (Resolved) Acute exacerbation of chronic obstructive pulmonary disease (Resolved) Bradycardia (Resolved) COPD with acute exacerbation (Resolved) Gram-negative pneumonia (Resolved) History of colonoscopy (Resolved) History of endoscopy (Resolved) Hypotension (Resolved) Hypoxia (Resolved) Subconjunctival hematoma (Resolved) 1. LLE incisional cellulitis Had a left ankle fracture not open reduction internal fixation in March 2018. currently on IV vancomycin and zosyn. has no complaints; pain is well controlled is afebrile; wound cultures Morganella morganii and possible Enterococcus sp, sensitive to levofloxacin, ciprofloxacin discussed with podiatry; await blood cultures and adjust antibiotics as needed. podiatry on board. conservative management for now with antibiotics.50% weightbearing as tolerated in the calm walker boot. 2. 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 INR is 2.6 continue coumadin and monitor INR 3. Successful atrial fibrillation: On beta-martha. On Coumadin. INR today is 2.6 4. COPD: Saturating well on room air. On breathing treatments. 5. Hypertension: Controlled: Metoprolol, Imdur and Lasix. As needed hydralazine. 6. Iron deficiency anemia: Stable. On iron supplementation. 7. Hyperlipidemia: On statin 8. CAD status post CABG: Aspirin. On statin and beta-martha. 9. Chronic heart failure with reduced ejection fraction due to ischemic cardiomyopathy On beta-martha and Lasix. Not on NABIL/ARB. Reason is not clear. Follow-up with varitype operator on discharge. 10. GERD. on PPI DVT prophylaxis: on coumadin. Code Visit Inpatient E&M: 77882 Subs Hosp L2
--- NOTE | 2018-05-27 10:03 | PN_ITS ---
Patient Problems: Active and Suspected Problems (Last Reviewed 04/07/18 @ 17:04 by Pancho Mantilla DO) Cellulitis of leg, left (Acute) Subjective: Patient seen and examined. He has no complaints and feels well. He denies any fever or chills, cough or chest pain, shortness of breath abdominal pain, any diarrhea vomiting. Pain in left lower extremity is well controlled. Labs and vitals reviewed. Review of systems otherwise negative. Vitals/I&O's: Vital Signs Temp Pulse Resp BP Pulse Ox 97.4 F L 54 L 16 114/61 97 05/27/18 07:56 05/27/18 07:56 05/27/18 07:56 05/27/18 07:56 05/27/18 07:56 Oxygen Delivery Method Room Air Weight: 160 lb 7.944 oz Body Mass Index (BMI) 23.0 Intake and Output for Last 24 Hours 05/25/18 05/26/18 05/27/18 23:59 23:59 23:59 Intake Total 1832 / 1832 605.5 / 605.5 Output Total 850 / 850 675 / 675 Balance 982 / 982 -69.5 / -69.5 General: Alert, Oriented x3, Cooperative, No apparent distress HEENT: Atraumatic, PERRLA, EOMI, Normocephalic Oral: Moist Mucosa Neck: Supple Lungs: Clear to auscultation, Normal air movement, No rhonchi, No wheeze, No rales Cardiovascular: Regular rate, Regular Rhythm, Normal S1, Normal S2, No murmurs Abdomen: Bowel Sounds Present, Soft, Non Tender, Non-Distended, No Hepato- splenomegaly Extremities: No clubbing, No cyanosis, No edema, - - mild erythema over ankle, well healed incision. minimal tenderness and differential warmth Skin: No rashes, No breakdown Musculoskeletal: No Tenderness to Palpation of Joints or Extremities Lymphatic: No Cervical, Supraclavicular, or Inguinal Adenopathy Neurological: Cranial nerves II-XII grossly intact, Neuro grossly intact, Motor Exam 5/5 strength throughout Psych/Mental Status: Normal Affect, Appropriate, Alert and oriented to time, place, person, mood and affect Microbiology Past 72 Hours 05/25/18 18:05 Wound - Ankle Gram Stain - Final 05/25/18 18:05 Wound - Ankle Wound Culture - Preliminary Morganella morganii sp morgani GPC Poss Enterococcus sp Laboratory Results 05/27/18 08:56: PT 27.6 H, INR 2.6 05/27/18 08:56: Vancomycin Trough Pending 05/27/18 08:56: WBC 5.7, RBC 3.96 L, Hgb 11.4 L, Hct 36.8 L, MCV 92.9, MCH 28.8, MCHC 31.0 L, RDW 14.4, RDW Differential 48.7 H, Plt Count 204, MPV 10.6, Immature Gran % (Auto) 0.200, Neut % (Auto) 75.5 H, Lymph % (Auto) 15.6 L, [place] % (Auto) 6.4, Eos % (Auto) 1.8, Baso % (Auto) 0.5, Absolute Neuts (auto) 4.3, Absolute Lymphs (auto) 0.88, Total Counted Not Reportable 05/27/18 08:56: Sodium 140, Potassium 3.6, Chloride 104, Carbon Dioxide 31.0, Anion Gap 5, BUN 23 H, Creatinine 1.09, Estim Creat Clear Calc 55.66, Est GFR (MDRD) Af Amer 84, Est GFR (MDRD) Non-Af 69, BUN/Creatinine Ratio 21.1 H, Glucose 111 H, Calcium 8.4 L Current Medications Acetaminophen (Tylenol) 650 mg PO Q6H PRN PRN PRN Reason: Mild Pain (scale 0-3)/T>100.7 Last Admin: 05/27/18 00:02 Dose: 650 mg Al Hydroxide/Mg Hydroxide (Mylanta Ii) 30 ml PO Q6H PRN PRN PRN Reason: Gastric burning Albuterol Sulfate (Ventolin Aerosols) 2.5 mg INHALATION Q2H PRN PRN PRN Reason: dyspnea, wheezing Albuterol/Ipratropium (Duoneb) 3 ml INHALATION Q6HWA.RT [facility] Last Admin: 05/27/18 06:49 Dose: 3 ml Aspirin (Ecotrin) 81 mg PO DAILY@0800 [facility] Last Admin: 05/27/18 08:04 Dose: 81 mg Atorvastatin Calcium (Lipitor) 80 mg PO QHS [facility] Last Admin: 05/26/18 22:39 Dose: 80 mg Budesonide (Pulmicort Aerosol) 0.5 mg INHALATION Q12H.RT [facility] Last Admin: 05/27/18 06:49 Dose: 0.5 mg Celecoxib (Celebrex) 200 mg PO DAILY [facility] Cholecalciferol (Vitamin D) 2,000 unit PO DAILY [facility] Last Admin: 05/27/18 08:04 Dose: 2,000 unit Dextrose (D50w Syringe) 0 gm IV X1 PRN; Protocol PRN Reason: Hypoglycemia Docusate Sodium (Colace) 200 mg PO BID PRN PRN PRN Reason: Constipation Ferrous Sulfate (Ferrous Sulfate) 325 mg PO BIDCM [facility] Last Admin: 05/27/18 08:04 Dose: 325 mg Folic Acid (Folic Acid) 1 mg PO QHS [facility] Last Admin: 05/26/18 22:39 Dose: 1 mg Furosemide (Lasix) 40 mg PO DAILY [facility] Last Admin: 05/26/18 10:02 Dose: 40 mg Glucagon () 1 mg IM .X1 PRN PRN Reason: Hypoglycemia Piperacillin Sod/Tazobactam Sod (Zosyn) 3.375 gm in 50 mls @ 12.5 mls/hr IV Q8 [facility] Last Admin: 05/27/18 06:21 Dose: 12.5 mls/hr Vancomycin IV Pharmacy to Dose (1 ea/ Sodium Chloride) 500 mls @ 250 mls/hr IV X1 PRN; Protocol PRN Reason: Rx to Dose Sodium Chloride () 250 mls @ 15 mls/hr IV .[id number] PRN PRN Reason: SALINE FLUSH Last Admin: 05/26/18 05:55 Dose: 15 mls/hr Vancomycin HCl () 500 mg in 100 mls @ 100 mls/hr IV Q12H [facility] Last Admin: 05/27/18 08:03 Dose: 100 mls/hr Isosorbide Mononitrate (Imdur) 30 mg PO QAM [facility] Last Admin: 05/27/18 08:04 Dose: 30 mg Lactic Acid (Lac-Hydrin, Amlactin) 1 applic TOPICAL BID [facility]; Protocol Magnesium Hydroxide (Milk Of Magnesia) 30 ml PO DAILY PRN PRN PRN Reason: Constipation Metoprolol Tartrate (Lopressor (Beta Martha)) 12.5 mg PO BID [facility] Last Admin: 05/26/18 22:38 Dose: 12.5 mg Morphine Sulfate () 2 - 4 mg IV Q3H PRN PRN PRN Reason: Severe Pain (pain scale 6-10) Morphine Sulfate () 1 - 2 mg IV Q4H PRN PRN PRN Reason: Moderate Pain (pain scale 4-5) Last Admin: 05/27/18 03:24 Dose: 2 mg Nicotine (Nicoderm Cq (Pbkc)) 14 mg TRANSDERM. DAILY [facility] Last Admin: 05/26/18 10:02 Dose: 14 mg Nitroglycerin (Nitrostat) 0.4 mg SUBLINGUAL Q5M PRN PRN Reason: Chest Pain Ondansetron HCl (Zofran) 4 mg IV Q8H PRN PRN PRN Reason: NAUSEA Oxycodone HCl (Oxyir) 5 mg PO Q4H PRN PRN PRN Reason: Moderate Pain (pain scale 4-5) Last Admin: 05/26/18 22:39 Dose: 5 mg Pantoprazole Sodium (Protonix) 40 mg PO BID [facility] Last Admin: 05/27/18 08:04 Dose: 40 mg Pregabalin (Lyrica) 75 mg PO BID [facility] Last Admin: 05/26/18 22:39 Dose: 75 mg Sodium Chloride () 5 - 30 ml IV UD PRN PRN Reason: SALINE FLUSH Last Admin: 05/27/18 08:14 Dose: 10 ml Warfarin Sodium (Coumadin (Pbkc)) 5 mg PO SuTuTh@1700 [facility] Warfarin Sodium (Coumadin (Pbkc)) 7.5 mg PO MoWeFrSa@1700 [facility] Last Admin: 05/26/18 16:43 Dose: Not Given Zolpidem Tartrate (Ambien (Generic)) 5 mg PO QHS PRN PRN PRN Reason: INSOMNIA Medical Necessity - Tobacco Use Smoking Status: Current every day smoker Tobacco Use: Cigarettes Assessment/Plan All Active Problems (Last Reviewed 04/07/18 @ 17:04 by Pancho Mantilla DO) Closed left ankle fracture (Acute) Left ankle pain (Acute) Risk for falls (Acute) Cellulitis of leg, left (Acute) GI bleed (Resolved) SALVADOR (acute kidney injury) (Resolved) Acute exacerbation of chronic obstructive pulmonary disease (Resolved) Bradycardia (Resolved) COPD with acute exacerbation (Resolved) Gram-negative pneumonia (Resolved) History of colonoscopy (Resolved) History of endoscopy (Resolved) Hypotension (Resolved) Hypoxia (Resolved) Subconjunctival hematoma (Resolved) 1. LLE incisional cellulitis * Had a left ankle fracture not open reduction internal fixation in March 2018. * currently on IV vancomycin and zosyn. * has no complaints; pain is well controlled * is afebrile; wound cultures Morganella morganii and possible Enterococcus sp, sensitive to levofloxacin, ciprofloxacin * discussed with podiatry; await blood cultures and adjust antibiotics as needed. * podiatry on board. conservative management for now with antibiotics.50% weightbearing as tolerated in the calm walker boot. * * 2. Valvular heart disease s/p mechanical aotic valve replacement * On Coumadin. INR is 2.6 * continue coumadin and monitor INR * 3. Successful atrial fibrillation: On beta-martha. On Coumadin. INR today is 2.6 4. COPD: Saturating well on room air. On breathing treatments. 5. Hypertension: Controlled: Metoprolol, Imdur and Lasix. As needed hydra lazine. 6. Iron deficiency anemia: Stable. On iron supplementation. 7. Hyperlipidemia: On statin 8. CAD status post CABG: * Aspirin. On statin and beta-martha. 9. 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 Not on NABIL/ARB. Reason is not clear. * Follow-up with interface developer on discharge. * 10. GERD. on PPI DVT prophylaxis: on coumadin. Code Visit Inpatient E&M: 53932 Subs Hosp L2
--- NOTE | 2018-05-27 10:35 | NURSING ---
Collin, from lab called this RN [id number] and stated that trough was ordered and that vancomycin is currently infusing. Collin asked if lab should still be collected. This RN called pharmacy and notified them that vancomycin was scheduled to be hung at 0800 and was hung at 0803 but that by the time lab came to collect trough it was almost completely infused. Chito, pharmacist states that Giuseppe will be looking at orders for troughs later today and will fix it at that time. States current one drawn will be an error and will not be needed. Lab called this RN and asked if lab will need to be resulted. Notified of what Chito in pharmacy said and that lab result will not need to be completed due to error.
[2018-05-27] MEDS: Furosemide 40 MG Tablet PO (10:50)
[2018-05-27] MEDS: Metoprolol Tartrate 25 MG Tablet 12.5 MG PO ×2 (10:51→21:50)
[2018-05-27] MEDS: Pregabalin 75 MG Capsule PO ×2 (10:55→21:56)
[2018-05-27] MEDS: Ammonium Lactate 225 gm Bottle 1 APPLIC TOPICAL ×2 (10:56→21:51)
[2018-05-27] MEDS: oxyCODONE 5 MG Tablet PO (19:56)
[2018-05-27 20:36] LABS: Vancomycin, Trough Level 11.5 ug/mL (5.0-15.0)
--- NOTE | 2018-05-27 21:22 | PCM.RX.CS ---
Consult Pharmacy has been consulted to manage selected antiobiotic: Vancomycin Type of Consult: Follow-up Suspected Infection: Skin/Soft tissue Labs: Sodium 140 mmol/L (136-145) 05/27/18 08:56 Potassium 3.6 mmol/L (3.5-5.1) 05/27/18 08:56 Chloride 104 mmol/L (98-107) 05/27/18 08:56 Carbon Dioxide 31.0 mmol/L (21.0-32.0) 05/27/18 08:56 Anion Gap 5 (5-15) 05/27/18 08:56 BUN 23 mg/dL (7-18) H 05/27/18 08:56 Creatinine 1.09 mg/dL (0.70-1.30) 05/27/18 08:56 Est GFR (MDRD) Af Amer 84 mL/min (>60) 05/27/18 08:56 Est GFR (MDRD) Non-Af 69 mL/min (>60) 05/27/18 08:56 BUN/Creatinine Ratio 21.1 RATIO (10-20) H 05/27/18 08:56 Glucose 111 mg/dL (74-106) H 05/27/18 08:56 Vancomycin Trough 11.5 ug/mL (5.0-15.0) 05/27/18 19:37 Microbiology: Microbiology 05/25/18 18:05 Wound - Ankle Gram Stain - Final 05/25/18 18:05 Wound - Ankle Wound Culture - Preliminary Morganella morganii sp morgani GPC Poss Enterococcus sp Estimated Creatinine Clearance: 55.66 Goal Trough: 10-15 mcg/mL Pharmacy Plan for Drug Dosing: Pharmacy Service will continue to monitor and adjust dosing as required. TROUGH 11.5 IN RANGE NO CHANGES AT THIS TIME. REDRAW TROUGH ON 05/31 Follow-Up Labs: Trough Vancomycin Labs to be done on [date and time ordered]: 05/31
[2018-05-27] MEDS: Zolpidem Tartrate 5 MG Tablet PO (21:49)
[2018-05-27] MEDS: Atorvastatin Calcium 80 MG Tablet PO (21:50)
[2018-05-27] MEDS: Folic Acid 1 MG Tablet PO (21:51)
[2018-05-28 04:20] VITALS: BP 109/56; PULSE 59; RESP 18; TEMP 36.4; O2SAT 96
[2018-05-28] MEDS: oxyCODONE 5 MG Tablet PO (04:23)
[2018-05-28 04:30] VITALS: PULSE 59; RESP 18; O2SAT 96
[2018-05-28 05:57] LABS: International Normalized Ratio 2.3
[2018-05-28 06:06] LABS: Absolute Lymphocyte Count 0.84 X10^3/ul (0.83-4.51); Absolute Neutrophil Count 3.4 X10^3/uL (2.0-7.7); Basophil# 0.04 X10^3/uL; Basophil% 0.8 % (0-1); Eosinophil# 0.16 X10^3/uL; Eosinophils% 3.3 % (0-5); Hematocrit 33.5 % (40-54); Hemoglobin 10.6 g/dl (13.0-16.5); Lymphocyte # 0.84 X10^3/ul (4.0); Lymphocyte % 17.1 % (19-41); Mean Corp Hgb Conc 31.6 g/gl (32-36); Mean Corpuscular Hgb 29.5 pg (27.0-32.0); Mean Corpuscular Volume 93.3 fL (80-94); Mean Platelet Vol. 10.9 fl (6.2-12.0); Monocyte# 0.45 X10^3/uL; Monocyte% 9.2 % (0-10); Neutrophil # 3.41 X10^3/uL (2.7-7.7); Neutrophil % 69.4 % (47-70); Platelet Count 205 K/mm3 (150-450); RBC Distribution Width CV 14.3 % (11.6-14.6); RBC Distribution Width SD 46.7 fl (35.1-43.9); Red Blood Count 3.59 M/mm3 (4.6-6.2); White Blood Count 4.9 K/mm3 (4.4-11.0)
[2018-05-28 06:21] LABS: POSITIVE COUNT NO; POSITIVE DIFFERENTIAL NO; POSITIVE MORPHOLOGY NO
[2018-05-28] MEDS: Piperacil/Tazobactam 3.375 GM/50 ML ML IV (06:24)
[2018-05-28] MEDS: Docusate Sodium 100 MG Capsule 200 MG PO (06:29)
[2018-05-28] MEDS: Morphine 2 MG/ML Syringe IV (06:29)
[2018-05-28 06:40] VITALS: PULSE 70; RESP 16; O2SAT 92
[2018-05-28] MEDS: Ipratropium/Albuterol Sulfate 3 ML AMPUL.NEB INHALATION (06:40)
[2018-05-28 06:50] LABS: Anion Gap 9 (5-15); BUN 21 mg/dL (7-18); BUN/Creat Ratio 18.9 RATIO (10-20); Calcium,Total 8.3 mg/dL (8.5-10.1); Chloride 106 mmol/L (98-107); Creatinine, Serum 1.11 mg/dL (0.70-1.30); EST Glomerular Filtration Rate 68 mL/min (>60); Est Glom Filt Rate - Afr Amer 82 mL/min (>60); Estimated Creatinine Clearance 54.65 ml/min; Glucose 85 mg/dL (74-106); Potassium 3.8 mmol/L (3.5-5.1); Sodium Level 145 mmol/L (136-145)
[2018-05-28 08:22] VITALS: BP 129/77; PULSE 56; RESP 18; TEMP 36.6; O2SAT 96
[2018-05-28] MEDS: Aspirin E.C. 81 MG Tablet PO (08:26)
[2018-05-28] MEDS: Ferrous Sulfate 325 MG Tablet PO (08:27)
[2018-05-28] MEDS: Isosorbide Mononitrate 30 MG Tablet PO (08:27)
[2018-05-28] MEDS: Ammonium Lactate 225 gm Bottle 1 APPLIC TOPICAL (08:28)
[2018-05-28] MEDS: Pantoprazole Sodium 40 MG Tablet PO (08:28)
[2018-05-28] MEDS: 0.9% NaCl IVPB Med Flush (250 mL) 15 ML IV (08:29)
[2018-05-28] MEDS: Vancomycin IV 500 MG/100 ML BAG 100 MG IV (08:29)
[2018-05-28] MEDS: 0.9% NaCl Peripheral Flush Adult/Peds IV (08:32)
--- NOTE | 2018-05-28 08:48 | PN_ITS ---
Patient Problems: Active and Suspected Problems (Last Reviewed 04/07/18 @ 17:04 by Pancho Mantilla DO) Cellulitis of leg, left (Acute) Subjective: This 78-year-old male was seen bedside for follow-up of left lower extremity cellulitis. He reports his pain is at worse a 4/10 and he is now able to move his ankle much better. He has been receiving IV vancomycin and Zosyn for treatment so far and has been elevating the limb. He relates after he walked with 50% weight yesterday that he developed return of drainage. He reports the drainage was only blood and there was no odor noted. He denies current fever, chill, nausea, vomiting, chest pain, shortness of breath, calf pain. He is eager to return home today. He admits he has fallen at home since his fracture repair surgery and thinks he caught his crutch on something in the room. He does not want to go to a skilled facility. His daughter does live nearby and essentially visits him multiple times a day. I have reviewed the case with her previously and she is able to help provide care on a daily basis however is concerned about his gait stability while she is not there. - Physical Exam General: Alert, Oriented x3, Cooperative Extremities: No cyanosis, Capillary Refill Less than 3 Seconds, No Calf Tenderness - Negative Adriana and Ibanez sign left lower extremity, Edema - Decreased left ankle and sundar-wound site, Peripheral Pulses Normal - Palpable dorsalis pedis pulse Skin: Ulcer/ Wound - There is a dry eschar that was peeled away today at the previous lateral incision site and there is subcutaneous tissue exposed. There is no deeper tissue exposed or probe to bone or hardware. This area was gently debrided with a 15 blade scalpel and any remnants of reactive Vicryl suture knots were also removed. This post debridement site measured 2.4 cm x 0.3 cm x 0.2 cm and is a linear cluster and this skin discontinuity accounts for approximately 30% of this measurement. The peripheral skin is hairless and atrophic. There is no purulence on expression odor streaking or erythema today. There is no bogginess or fluctuance on palpation to the adjacent site. Musculoskeletal: Muscle Wasting, - - Rectus ankle. Resolved pain on palpation to this wound site as well as to the healed fracture sites to the medial lateral malleolus. No pain with passive manipulation of the ankle and the ankle joint is smooth and gliding. Muscle strength is normal to the left ankle Neurological: Sensory exam intact to light touch and pain Psych/Mental Status: Normal Affect, Appropriate Vital Signs Temp Pulse Resp BP Pulse Ox 97.9 F 56 L 18 129/77 H 96 05/28/18 08:22 05/28/18 08:22 05/28/18 08:22 05/28/18 08:22 05/28/18 08:22 Oxygen Delivery Method Room Air Weight: 72.8 kg Body Mass Index (BMI) 23.0 Intake and Output for Last 24 Hours 05/26/18 05/27/18 05/28/18 23:59 23:59 23:59 Intake Total 1832 / 1832 1225.5 / 1225.5 574 / 574 Output Total 850 / 850 1624 / 1624 600 / 600 Balance 982 / 982 -398.5 / -398.5 -26 / -26 Microbiology Past 72 Hours 05/25/18 18:05 Gram Stain - Final Wound - Ankle Wound Culture - Final Morganella morganii sp morgani Enterococcus faecalis Laboratory Tests Past 24 Hrs 05/27/18 05/27/18 05/27/18 08:56 08:56 08:56 WBC 5.7 RBC 3.96 L Hgb 11.4 L Hct 36.8 L MCV 92.9 MCH 28.8 MCHC 31.0 L RDW 14.4 RDW Differential 48.7 H Plt Count 204 MPV 10.6 Immature Gran % (Auto) 0.200 Neut % (Auto) 75.5 H Lymph % (Auto) 15.6 L [place] % (Auto) 6.4 Eos % (Auto) 1.8 Baso % (Auto) 0.5 Absolute Neuts (auto) 4.3 Absolute Lymphs (auto) 0.88 Total Counted Not Reportable PT 27.6 H INR 2.6 Sodium Potassium Chloride Carbon Dioxide Anion Gap BUN Creatinine Estim Creat Clear Calc Est GFR (MDRD) Af Amer Est GFR (MDRD) Non-Af BUN/Creatinine Ratio Glucose Calcium Vancomycin Trough Cancelled 05/27/18 05/27/18 05/28/18 08:56 19:37 05:18 WBC RBC Hgb Hct MCV MCH MCHC RDW RDW Differential Plt Count MPV Immature Gran % (Auto) Neut % (Auto) Lymph % (Auto) [place] % (Auto) Eos % (Auto) Baso % (Auto) Absolute Neuts (auto) Absolute Lymphs (auto) Total Counted PT 25.0 H INR 2.3 Sodium 140 Potassium 3.6 Chloride 104 Carbon Dioxide 31.0 Anion Gap 5 BUN 23 H Creatinine 1.09 Estim Creat Clear Calc 55.66 Est GFR (MDRD) Af Amer 84 Est GFR (MDRD) Non-Af 69 BUN/Creatinine Ratio 21.1 H Glucose 111 H Calcium 8.4 L Vancomycin Trough 11.5 05/28/18 05/28/18 05:18 05:18 WBC 4.9 RBC 3.59 L Hgb 10.6 L Hct 33.5 L MCV 93.3 MCH 29.5 MCHC 31.6 L RDW 14.3 RDW Differential 46.7 H Plt Count 205 MPV 10.9 Immature Gran % (Auto) 0.200 Neut % (Auto) 69.4 Lymph % (Auto) 17.1 L [place] % (Auto) 9.2 Eos % (Auto) 3.3 Baso % (Auto) 0.8 Absolute Neuts (auto) 3.4 Absolute Lymphs (auto) 0.84 Total Counted Not Reportable PT INR Sodium 145 Potassium 3.8 Chloride 106 Carbon Dioxide 30.0 Anion Gap 9 BUN 21 H Creatinine 1.11 Estim Creat Clear Calc 54.65 Est GFR (MDRD) Af Amer 82 Est GFR (MDRD) Non-Af 68 BUN/Creatinine Ratio 18.9 Glucose 85 Calcium 8.3 L Vancomycin Trough Medical Necessity - Tobacco Use Smoking Status: Current every day smoker Tobacco Use: Cigarettes Assessment/Plan All Active Problems (Last Reviewed 04/07/18 @ 17:04 by Pancho Mantilla DO) Closed left ankle fracture (Acute) Left ankle pain (Acute) Risk for falls (Acute) Cellulitis of leg, left (Acute) GI bleed (Resolved) SALVADOR (acute kidney injury) (Resolved) Acute exacerbation of chronic obstructive pulmonary disease (Resolved) Bradycardia (Resolved) COPD with acute exacerbation (Resolved) Gram-negative pneumonia (Resolved) History of colonoscopy (Resolved) History of endoscopy (Resolved) Hypotension (Resolved) Hypoxia (Resolved) Subconjunctival hematoma (Resolved) Left lower extremity cellulitis - improving Left lateral ankle ulcer with fat layer exposed Left lower extremity pain Approximately 6 weeks status post open reduction internal fixation trimalleolar ankle fracture Other comorbidities: History of chronic pain syndrome, atrial fibrillation, status post stent on chronic anticoagulation, COPD, fall history I examined this patient and his skin peeling site is now draining after he went for a walk yesterday. This was further investigated and debrided today as noted. This ulcer/wound site was irrigated with normal saline and Aquacel Ag, gauze, Kerlix dressing was applied. I recommend he change this daily. He is demonstrating continued clinical improvement. To continue to moisturize adjacent skin to improve skin integrity. His blood cultures are pending and are without growth so far. It is noted he did not have leukocytosis. To continue to elevate limb. His x-rays were reviewed and osseous bridging is noted at the fracture repair site. There is no osteolysis around the hardware or alteration in initial hardware placement. Infectious disease on consultation and input is greatly appreciated. The wound culture growth includes Morganelli morganii and enterococcus faecalis. He is currently on vancomycin and Zosyn intravenously and will be transitioned likely to levofloxacin orally at time of discharge. To continue to bear 50% weight protected with cam walker boot. He does not need to sleep or rest with the boot in place. To avoid direct pressure over this wound site while lying in bed and while applying cam walker boot. I reviewed his discharge plan with his daughter Emily yesterday evening and she is concerned about his return home and current walking status. Mr. Montejo is not amenable to go to a skilled facility at this time. I discussed this case with treating hospitalist this morning we will consider home health for wound care and further therapy assistance. Discharge planning is in process. [facility]. Mary Alice Villarreal DPM, FACFAS [facility] [phone]
--- NOTE | 2018-05-28 08:55 | PCM.DC.POD ---
Weight Bearing Status: Partial weight bearing - 50% left lower extremity with cam walker Keep extremity elevated above heart level: Left Leg Call your doctor if your incision/area has: Continuous Slow Oozing, Sudden Increased Bleeding, Increased Pain/ Swelling, Increased Redness, Foul Smelling Discharge, Swelling at the incision site Call your doctor if you observe: Fever of 101 or Higher, Change in Color, Calf discomfort, Uncontrolled pain Cleanse incision/area with: - - Change left ankle dressing daily with Aquacel Ag and gauze. Do not soak. It is okay to gently cleanse the periwound site with Dial soap and water on a washcloth. To moisturize the adjacent skin of the leg and foot with lotion and avoid application directly on the wound. Additional Instructions: Avoid laying on outer ankle aspect while resting to keep pressure off of the wound site Take antibiotics as prescribed. Allergies/Adverse Reactions: Allergies No Known Allergies Allergy (Verified 05/25/18 16:59) Medications to take at Discharge Rosuvastatin Calcium [Crestor] 40 mg PO QHS 07/15/13 Ferrous Sulfate 325 mg PO BIDCM 09/13/15 Albuterol Sulfate [Proair Respiclick] 1 puff INHALATION Q4H PRN PRN 09/25/15 Cholecalciferol (VIT D3) [Vitamin D3] 2,000 unit PO DAILY 09/25/15 Nitroglycerin [Nitrostat] 0.4 mg SUBLINGUAL Q5M PRN #30 tab 09/26/15 Aspirin E.C. [Ecotrin] 81 mg PO DAILY@0800 06/24/16 Folic Acid 1 mg PO QHS 06/24/16 Ipratropium/Albuterol Sulfate [Duoneb] 3 ml INHALATION Q4H PRN PRN #30 ampul.neb 11/02/16 Metoprolol Tartrate [Lopressor (beta zach)] 12.5 mg PO BID 01/20/17 Docusate Sodium [Colace] 200 mg PO BID PRN PRN cap 01/27/17 Budesonide/Formoterol 160/4.5 [Symbicort 160/4.5 Mcg Inhaler (SP)] 2 puff INHALATION BID 02/08/17 Furosemide [Lasix] 40 mg PO DAILY 02/08/17 isosorbide mononitrate ER 30 mg tablet,extended release 24 hr 30 mg PO QAM 11/21/17 pantoprazole 40 mg tablet,delayed release 40 mg PO BID tab 01/02/18 warfarin 5 mg tablet 5 mg PO SUTUTH tab 01/02/18 warfarin 7.5 mg tablet 7.5 mg PO MOWEFRSA tab 01/02/18 Celecoxib [Celebrex] 200 mg PO DAILY 05/26/18 Oxycodone HCl/Acetaminophen [Percocet 7.5-325 mg Tablet] 1 tab PO Q6H PRN PRN 05/26/18 Pregabalin [Lyrica] 1 tab PO BID 05/26/18 Zolpidem Tartrate [Ambien] 10 mg PO QHS 05/26/18 Primary Care Physician: Guillermo Pritchard MD [Primary Care Provider] - Test Results: Test results from this visit will be discussed in further detail at your follow-up appointment, if applicable. Please Follow Up With: Mary Alice Villarreal DPM When: 1 week at [facility]; [phone] Proposed Discharge Date: 05/28/18
--- NOTE | 2018-05-28 08:58 | DCINST_ITS ---
Weight Bearing Status: Partial weight bearing - 50% left lower extremity with cam walker Keep extremity elevated above heart level: Left Leg Call your doctor if your incision/area has: Continuous Slow Oozing, Sudden Increased Bleeding, Increased Pain/ Swelling, Increased Redness, Foul Smelling Discharge, Swelling at the incision site Call your doctor if you observe: Fever of 101 or Higher, Change in Color, Calf discomfort, Uncontrolled pain Cleanse incision/area with: - - Change left ankle dressing daily with Aquacel Ag and gauze. Do not soak. It is okay to gently cleanse the periwound site with Dial soap and water on a washcloth. To moisturize the adjacent skin of the leg and foot with lotion and avoid application directly on the wound. Additional Instructions: Avoid laying on outer ankle aspect while resting to keep pressure off of the wound site Take antibiotics as prescribed. Allergies/Adverse Reactions: Allergies No Known Allergies Allergy (Verified 05/25/18 16:59) Medications to take at Discharge Rosuvastatin Calcium [Crestor] 40 mg PO QHS 07/15/13 Ferrous Sulfate 325 mg PO BIDCM 09/13/15 Albuterol Sulfate [Proair Respiclick] 1 puff INHALATION Q4H PRN PRN 09/25/15 Cholecalciferol (VIT D3) [Vitamin D3] 2,000 unit PO DAILY 09/25/15 Nitroglycerin [Nitrostat] 0.4 mg SUBLINGUAL Q5M PRN #30 tab 09/26/15 Aspirin E.C. [Ecotrin] 81 mg PO DAILY@0800 06/24/16 Folic Acid 1 mg PO QHS 06/24/16 Ipratropium/Albuterol Sulfate [Duoneb] 3 ml INHALATION Q4H PRN PRN #30 ampul.neb 11/02/16 Metoprolol Tartrate [Lopressor (beta zach)] 12.5 mg PO BID 01/20/17 Docusate Sodium [Colace] 200 mg PO BID PRN PRN cap 01/27/17 Budesonide/Formoterol 160/4.5 [Symbicort 160/4.5 Mcg Inhaler (SP)] 2 puff INHALATION BID 02/08/17 Furosemide [Lasix] 40 mg PO DAILY 02/08/17 isosorbide mononitrate ER 30 mg tablet,extended release 24 hr 30 mg PO QAM 11/21/17 pantoprazole 40 mg tablet,delayed release 40 mg PO BID tab 01/02/18 warfarin 5 mg tablet 5 mg PO SUTUTH tab 01/02/18 warfarin 7.5 mg tablet 7.5 mg PO MOWEFRSA tab 01/02/18 Celecoxib [Celebrex] 200 mg PO DAILY 05/26/18 Oxycodone HCl/Acetaminophen [Percocet 7.5-325 mg Tablet] 1 tab PO Q6H PRN PRN Pregabalin [Lyrica] 1 tab PO BID 05/26/18 Zolpidem Tartrate [Ambien] 10 mg PO QHS 05/26/18 Primary Care Physician: Guillermo Pritchard MD [Primary Care Provider] - Test Results: Test results from this visit will be discussed in further detail at your follow- up appointment, if applicable. Please Follow Up With: Mary Alice Villarreal DPM When: 1 week at [facility]; [phone] Proposed Discharge Date: 05/28/18
--- NOTE | 2018-05-28 09:21 | DCINST_ITS ---
- Discharge Diagnoses Current Active Problems: Current Active and Chronic Problems (Last Reviewed 04/07/18 @ 17:04 by Pancho Mantilla DO) Cellulitis of leg, left (Acute) You will use the following diet at home:: Cardiac Your food should be the consistency of: Regular Your liquids should be the consistency of: Regular/Thin Weight Bearing Status: Partial weight bearing - 50% left lower extremity with cam walker Keep extremity elevated above heart level: Left Leg Call your doctor if your incision/area has: Continuous Slow Oozing, Sudden Increased Bleeding, Increased Pain/ Swelling, Increased Redness, Foul Smelling Discharge, Swelling at the incision site Call your doctor if you observe: Fever of 101 or Higher, Change in Color, Calf discomfort, Uncontrolled pain Cleanse incision/area with: - - Change left ankle dressing daily with Aquacel Ag and gauze. Do not soak. It is okay to gently cleanse the periwound site with Dial soap and water on a washcloth. To moisturize the adjacent skin of the leg and foot with lotion and avoid application directly on the wound. Allergies/Adverse Reactions: Allergies No Known Allergies Allergy (Verified 05/25/18 16:59) Medications to take at Discharge Rosuvastatin Calcium [Crestor] 40 mg PO QHS 07/15/13 Ferrous Sulfate 325 mg PO BIDCM 09/13/15 Albuterol Sulfate [Proair Respiclick] 1 puff INHALATION Q4H PRN PRN 09/25/15 Cholecalciferol (VIT D3) [Vitamin D3] 2,000 unit PO DAILY 09/25/15 Nitroglycerin [Nitrostat] 0.4 mg SUBLINGUAL Q5M PRN #30 tab 09/26/15 Aspirin E.C. [Ecotrin] 81 mg PO DAILY@0800 06/24/16 Folic Acid 1 mg PO QHS 06/24/16 Ipratropium/Albuterol Sulfate [Duoneb] 3 ml INHALATION Q4H PRN PRN #30 ampul.neb 11/02/16 Metoprolol Tartrate [Lopressor (beta zach)] 12.5 mg PO BID 01/20/17 Docusate Sodium [Colace] 200 mg PO BID PRN PRN cap 01/27/17 Budesonide/Formoterol 160/4.5 [Symbicort 160/4.5 Mcg Inhaler (SP)] 2 puff INHALATION BID 02/08/17 Furosemide [Lasix] 40 mg PO DAILY 02/08/17 isosorbide mononitrate ER 30 mg tablet,extended release 24 hr 30 mg PO QAM 11/21/17 pantoprazole 40 mg tablet,delayed release 40 mg PO BID tab 01/02/18 warfarin 5 mg tablet 5 mg PO SUTUTH tab 01/02/18 warfarin 7.5 mg tablet 7.5 mg PO MOWEFRSA tab 01/02/18 Celecoxib [Celebrex] 200 mg PO DAILY 05/26/18 Oxycodone HCl/Acetaminophen [Percocet 7.5-325 mg Tablet] 1 tab PO Q6H PRN PRN 05/26/18 Pregabalin [Lyrica] 1 tab PO BID 05/26/18 Zolpidem Tartrate [Ambien] 10 mg PO QHS 05/26/18 levoFLOXacin tablet [Levaquin tablet] 500 mg PO DAILY #10 tablet 05/28/18 The following prescriptions were given: levoFLOXacin tablet [Levaquin tablet] 500 mg PO DAILY #10 tablet Primary Care Physician: Guillermo Pritchard MD [Primary Care Provider] - Please follow up with your Primary Care Physician in: one week Test Results: Test results from this visit will be discussed in further detail at your follow- up appointment, if applicable. Please Follow Up With: Mary Alice Villarreal DPM When: [facility]; [phone] Please Follow Up With: Torito Weller MD When: 2-3 weeks Proposed Discharge Date: 05/28/18
--- NOTE | 2018-05-28 09:22 | DS.PCM_ITS ---
Discharge Date and Diagnosis Date of Admission: 05/25/18 Date of Discharge: 05/28/18 - Primary Discharge Diagnosis Active and Suspected Problems (Last Reviewed 04/07/18 @ 17:04 by Pancho Mantilla DO) Cellulitis of leg, left (Acute) - Secondary Discharge Diagnosis Chronic Problems (Last Reviewed 04/07/18 @ 17:04 by Pancho Mantilla DO) Intractable pain (Chronic) Trimalleolar fracture of ankle, closed (Chronic) Non-rheumatic tricuspid valve insufficiency (Chronic) Secondary pulmonary arterial hypertension (Chronic) Chronic systolic (congestive) heart failure (Chronic) Ischemic cardiomyopathy (Chronic) History of coronary artery stent placement (Chronic) 06/28/2011 prior to PTCA and BMS (3.0 mm X 18 mm long Integrity stent) to mid LAD, BMS to the mid distal CX (4.5 X 16mm Veriflex stent), and BMS to the proximal CX (3.5 X 15 mm Integrity stent) @ [facility] Atherosclerotic heart disease of [place] coronary artery without angina pectoris (Chronic) 03/27/1993: RED to LAD (CABG X1 along with AVR, [facility]):06/28/2011 prior to PTCA and BMS to mid LAD, BMS to the mid distal CX, and BMS to the proximal CX @ [facility] History of left heart catheterization (Chronic) 03/27/1993 [facility] prior to CABG X1 and AVR; 06/28/2011 prior to PTCA and BMS to mid LAD, BMS to the mid distal CX, and BMS to the proximal CX @ [facility] History of aortic valve replacement (Chronic) 03/27/1993: RED to LAD and 23mm [facility] Mechanical AVR placed for severe per Dr. Darrell Shaw [facility] S/P CABG x 1 (Chronic) 03/27/1993: RED to LAD and 23mm [facility] Rachid Prosthetic AVR placed for severe per Dr. 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 HERNANDEZ Hospital Course and Treatment Imaging Results: Diagnostic Data Ankle X-Ray 05/25/18 17:45 IMPRESSION: 1. No acute findings. 2. Old healed ankle fractures with internal fixation. Electronically Signed: Yanira Yanez MD at 18:20 EST Tel , Service support , Operations: None Procedures: None Summary of Care Provided: Patient is an 78-year-old male with an extensive past medical history as listed below. He had open reduction and internal fixation of a left trimalleolar ankle fracture on 04/07/2018. Subsequently presents to the ED on 05/25/2018 with a complaint of erythema, pain and drainage as well as chills from the left lower extremity at the site of the surgery. CRP was 61.6 and ESR was 30, blood cultures were also drawn. He had no leukocytosis. He was admitted and managed for cellulitis of the left lower extremity. He was started on IV Zosyn and vancomycin in the ED. ID and podiatry were consulted. X-ray showed shows progression at the fracture presented with no osteolysis around the hardware. Wound cultures grew Enterococcus faecalis and Morganella morganii sensitive to levofloxacin and ciprofloxacin. Blood cultures were negative after 48 hours. Patient remained stable and was discharged home on 05/28/2018 with a 10-day course of p.o. levofloxacin. Of note, on day of discharge, podiatry inform hospitalist that patient's daughter was concerned about his falls at home. I asked patient in detail with a he had been falling at home. Patient said his first fall was when he had this ankle fracture and with that he slipped on his wet driveway. His most recent fall was when he tripped over a wire in his house. Patient states he is able to take care of himself at home and he lives alone and daughter lives close by. He was evaluated by physical therapy well at that time he was nonweightbearing and so they could not do much with him. He is now been having home physical therapy but is now willing to consider placement in a rehab facility. Patient is being discharged home on p.o. levofloxacin and with a script for home PT and OT. He is to follow-up with his primary care doctor in 1 week. Patient seen and examined prior to discharge. He denied any fever or chills, any cough or chest pain, any shortness of breath, abdominal pain, diarrhea vomiting. He said he had some mild bleeding from site of surgical incision overnight, but it resolved when his foot was bandaged. Per discussion with podiatry, there was some drainage from site of cellulitis this morning. 12 point review systems otherwise negative. Labs and vitals reviewed. Home medications reviewed and reconciled. o/e: Vital Signs Height 5 ft 10 in Weight: 160 lb 7.944 oz Weight in Pounds 160.5 lbs Pulse Ox 96 Temperature 97.9 F Pulse Rate 56 Respiratory Rate 18 Blood Pressure [BP] 115/59 Blood Pressure 129/77 Blood Pressure Position [BP] Semi-Fowlers Blood Pressure Position Semi-Fowlers Plan as stated above. He is to follow up with his PCP, podiatry and ID. Weight bearing instructions as per podiatry. - Physical Exam Vital Signs Temp Pulse Resp BP Pulse Ox 97.9 F 56 L 18 129/77 H 96 05/28/18 08:22 05/28/18 08:22 05/28/18 08:22 05/28/18 08:22 05/28/18 08:22 Oxygen Delivery Method Room Air Weight: 160 lb 7.944 oz Body Mass Index (BMI) 23.0 General: Alert, Oriented x3, Cooperative, No apparent distress HEENT: Atraumatic, PERRLA, EOMI, Normocephalic Oral: Moist Mucosa Neck: Supple Lungs: Clear to auscultation, Normal air movement, No rhonchi, No wheeze, No rales Cardiovascular: Regular rate, Regular Rhythm, Normal S1, Normal S2, No murmurs Abdomen: Bowel Sounds Present, Soft, Non Tender, Non-Distended, No Hepato- splenomegaly Extremities: No clubbing, No cyanosis, No edema, - - mild erythema over left ankle, well healed incision. minimal tenderness and differential warmth. LLE bandaged Skin: No rashes, No breakdown Musculoskeletal: No Tenderness to Palpation of Joints or Extremities Lymphatic: No Cervical, Supraclavicular, or Inguinal Adenopathy Neurological: Cranial nerves II-XII grossly intact, Neuro grossly intact, Motor Exam 5/5 strength throughout Psych/Mental Status: Normal Affect, Appropriate, Alert and oriented to time, place, person, mood and affect Intake and Output for Last 24 Hours 05/26/18 05/27/18 05/28/18 23:59 23:59 23:59 Intake Total 1832 / 1832 1225.5 / 1225.5 574 / 574 Output Total 850 / 850 1624 / 1624 600 / 600 Balance 982 / 982 -398.5 / -398.5 -26 / -26 Microbiology Past 72 Hours 05/25/18 18:05 Gram Stain - Final Wound - Ankle Wound Culture - Final Morganella morganii sp morgani Enterococcus faecalis Laboratory Tests Past 24 Hrs 05/27/18 05/27/18 05/27/18 08:56 08:56 19:37 WBC RBC Hgb Hct MCV MCH MCHC RDW RDW Differential Plt Count MPV Immature Gran % (Auto) Neut % (Auto) Lymph % (Auto) [place] % (Auto) Eos % (Auto) Baso % (Auto) Absolute Neuts (auto) Absolute Lymphs (auto) Total Counted PT INR Sodium 140 Potassium 3.6 Chloride 104 Carbon Dioxide 31.0 Anion Gap 5 BUN 23 H Creatinine 1.09 Estim Creat Clear Calc 55.66 Est GFR (MDRD) Af Amer 84 Est GFR (MDRD) Non-Af 69 BUN/Creatinine Ratio 21.1 H Glucose 111 H Calcium 8.4 L Vancomycin Trough Cancelled 11.5 05/28/18 05/28/18 05/28/18 05:18 05:18 05:18 WBC 4.9 RBC 3.59 L Hgb 10.6 L Hct 33.5 L MCV 93.3 MCH 29.5 MCHC 31.6 L RDW 14.3 RDW Differential 46.7 H Plt Count 205 MPV 10.9 Immature Gran % (Auto) 0.200 Neut % (Auto) 69.4 Lymph % (Auto) 17.1 L [place] % (Auto) 9.2 Eos % (Auto) 3.3 Baso % (Auto) 0.8 Absolute Neuts (auto) 3.4 Absolute Lymphs (auto) 0.84 Total Counted Not Reportable PT 25.0 H INR 2.3 Sodium 145 Potassium 3.8 Chloride 106 Carbon Dioxide 30.0 Anion Gap 9 BUN 21 H Creatinine 1.11 Estim Creat Clear Calc 54.65 Est GFR (MDRD) Af Amer 82 Est GFR (MDRD) Non-Af 68 BUN/Creatinine Ratio 18.9 Glucose 85 Calcium 8.3 L Vancomycin Trough Discharge Diet: Low fat/ Low Cholesterol Weight Bearing Status: Partial weight bearing - 50% left lower extremity with cam walker Keep extremity elevated above heart level: Left Leg Call your doctor if your incision/area has: Continuous Slow Oozing, Sudden Increased Bleeding, Increased Pain/ Swelling, Increased Redness, Foul Smelling Discharge, Swelling at the incision site Call your doctor if you observe: Fever of 101 or Higher, Change in Color, Calf discomfort, Uncontrolled pain Cleanse incision/area with: - - Change left ankle dressing daily with Aquacel Ag and gauze. Do not soak. It is okay to gently cleanse the periwound site with Dial soap and water on a washcloth. To moisturize the adjacent skin of the leg and foot with lotion and avoid application directly on the wound. Home Medications: Medications to take at Discharge Rosuvastatin Calcium [Crestor] 40 mg PO QHS 07/15/13 Ferrous Sulfate 325 mg PO BIDCM 09/13/15 Albuterol Sulfate [Proair Respiclick] 1 puff INHALATION Q4H PRN PRN 09/25/15 Cholecalciferol (VIT D3) [Vitamin D3] 2,000 unit PO DAILY 09/25/15 Nitroglycerin [Nitrostat] 0.4 mg SUBLINGUAL Q5M PRN #30 tab 09/26/15 Aspirin E.C. [Ecotrin] 81 mg PO DAILY@0800 06/24/16 Folic Acid 1 mg PO QHS 06/24/16 Ipratropium/Albuterol Sulfate [Duoneb] 3 ml INHALATION Q4H PRN PRN #30 ampul.neb 11/02/16 Metoprolol Tartrate [Lopressor (beta zach)] 12.5 mg PO BID 01/20/17 Docusate Sodium [Colace] 200 mg PO BID PRN PRN cap 01/27/17 Budesonide/Formoterol 160/4.5 [Symbicort 160/4.5 Mcg Inhaler (SP)] 2 puff INHALATION BID 02/08/17 Furosemide [Lasix] 40 mg PO DAILY 02/08/17 isosorbide mononitrate ER 30 mg tablet,extended release 24 hr 30 mg PO QAM 02/01 pantoprazole 40 mg tablet,delayed release 40 mg PO BID tab 01/02/18 warfarin 5 mg tablet 5 mg PO SUTUTH tab 01/02/18 warfarin 7.5 mg tablet 7.5 mg PO MOWEFRSA tab 01/02/18 Celecoxib [Celebrex] 200 mg PO DAILY 05/26/18 Oxycodone HCl/Acetaminophen [Percocet 7.5-325 mg Tablet] 1 tab PO Q6H PRN PRN 05/26/18 Pregabalin [Lyrica] 1 tab PO BID 05/26/18 Zolpidem Tartrate [Ambien] 10 mg PO QHS 05/26/18 levoFLOXacin tablet [Levaquin tablet] 500 mg PO DAILY #10 tablet 05/28/18 Following Prescrptions Were Given to Patient: levoFLOXacin tablet [Levaquin tablet] 500 mg PO DAILY #10 tablet Primary Care Physician: Guillermo Pritchard MD [Primary Care Provider] - Please follow up with your Primary Care Physician in: one week Please Follow Up With: Mary Alice Villarreal DPM When: 1 week at [facility]; [phone] Please Follow Up With: Torito Weller MD When: 2-3 weeks Additional Instructions: Avoid laying on outer ankle aspect while resting to keep pressure off of the wound site Take antibiotics as prescribed. Disposition: Home with Home Health Minutes spent on discharge:: 40 Patient Condition:: Stable Medical Necessity - Tobacco Use Smoking Status: Current every day smoker Tobacco Use: Cigarettes Meaningful Use Info Meaningful Use Diagnoses (Choose all that apply): None applicable Code Visit Inpatient E&M: 49998 Disch Hosp
--- NOTE | 2018-05-28 11:09 | NURSING ---
[pt refused am meds- daughter came in at this time and stated, he doesn't look ready to me. I am crunched for time and do not have time for this. This RN assisted with wheelchair and gathering belongings. Notified of atb to [facility] at [facility] and given phone numbers for follow up appt with Dr. Weller and phone number for PT OT- prescription written by Dr. Sellers and given to pt by this RN at time of d/c. Notified of need for dressing changes and given supplies and verbal instructions regarding dressing change and lotion-per d/c orders-to do so for the next few days. Understanding verbalized.
--- NOTE | 2018-05-28 11:21 | NURSING ---
pt left without paper prescription for percocet. This RN called his cell phone and left message that it would be at nurses' station if he wanted to pick it up. Will await reply.
--- NOTE | 2018-05-28 13:07 | NURSING ---
This RN called [facility] per green discharge sheet on chart- notifying them that pt has been discharged home. Understanding verbalized by Donna with [facility]
== END 2018-05-28 11:00 | disposition home health service (06) | DRG 857 ==
LOC: ED 17:54 → MS2 19:59
PROVIDERS: Internal Medicine; Admitting Provider Family Medicine; Emergency Provider Emergency Medicine; Family Provider Family Medicine; PCP Family Medicine; Visit Provider Student in an Organized Health Care Education/Training Program
DX: T81.41XA Infection following a procedure, superficial incisional surgical site, initial encounter (principal); I50.22 Chronic systolic (congestive) heart failure; L03.116 Cellulitis of left lower limb; I25.10 Atherosclerotic heart disease of native coronary artery without angina pectoris; I11.0 Hypertensive heart disease with heart failure; F17.210 Nicotine dependence, cigarettes, uncomplicated; J44.9 Chronic obstructive pulmonary disease, unspecified; B95.2 Enterococcus as the cause of diseases classified elsewhere; I27.21 Secondary pulmonary arterial hypertension; E78.5 Hyperlipidemia, unspecified; B96.89 Other specified bacterial agents as the cause of diseases classified elsewhere; S82.852D Displaced trimalleolar fracture of left lower leg, subsequent encounter for closed fracture with routine healing; W01.0XXD Fall on same level from slipping, tripping and stumbling without subsequent striking against object, subsequent encounter; Z95.2 Presence of prosthetic heart valve; Z79.01 Long term (current) use of anticoagulants; Z95.5 Presence of coronary angioplasty implant and graft; Z95.1 Presence of aortocoronary bypass graft; D50.9 Iron deficiency anemia, unspecified; I25.5 Ischemic cardiomyopathy; K21.9 Gastro-esophageal reflux disease without esophagitis
CPT/HCPCS: 36415; 73610; 80048; 80202; 82962; 83735; 85025; 85610; 85652; 86140; 87040; 87070; 87077; 87186; 87205; 87640; 94640; 97116; 97162; 97165; 97530; 97802; 99282; 99406; J7030; J7040; J7050; A4216; J2405

== ENCOUNTER 2018-06-04 18:38 | Emergency (ER) | payer MEDICARE, OTHER, SELFPAY ==
[2018-06-04 18:40] VITALS: BP 136/96; PULSE 76; RESP 16; TEMP 36.4; O2SAT 98; BMI 22.9
[2018-06-04 19:05] VITALS: BP 116/63; PULSE 74; RESP 16; TEMP 36.7; O2SAT 96
[2018-06-04] MEDS: Morphine 4 MG/ML Syringe IV (19:09)
[2018-06-04] MEDS: Ondansetron 4 MG/2 ML Vial IV (19:10)
[2018-06-04 19:31] LABS: International Normalized Ratio 2.8; Prothrombin Time (Protime)PT. 29.5 SECONDS (11.7-14.9)
[2018-06-04 19:34] LABS: Absolute Lymphocyte Count 1.09 X10^3/ul (0.83-4.51); Basophil# 0.04 X10^3/uL; Basophil% 0.6 % (0-1); Eosinophil# 0.11 X10^3/uL; Eosinophils% 1.7 % (0-5); Hematocrit 35.9 % (40-54); Hemoglobin 11.1 g/dl (13.0-16.5); Lymphocyte # 1.09 X10^3/ul (4.0); Lymphocyte % 16.4 % (19-41); Mean Corp Hgb Conc 30.9 g/gl (32-36); Mean Corpuscular Hgb 28.8 pg (27.0-32.0); Mean Corpuscular Volume 93.2 fL (80-94); Mean Platelet Vol. 10.3 fl (6.2-12.0); Monocyte# 0.39 X10^3/uL; Monocyte% 5.9 % (0-10); Neutrophil # 4.99 X10^3/uL (2.7-7.7); Neutrophil % 74.9 % (47-70); Platelet Count 255 K/mm3 (150-450); RBC Distribution Width CV 15.6 % (11.6-14.6); RBC Distribution Width SD 51.8 fl (35.1-43.9); Red Blood Count 3.85 M/mm3 (4.6-6.2); White Blood Count 6.7 K/mm3 (4.4-11.0)
[2018-06-04 19:35] LABS: POSITIVE COUNT NO; POSITIVE DIFFERENTIAL NO; POSITIVE MORPHOLOGY NO
[2018-06-04 19:36] LABS: Anion Gap 5 (5-15); BUN 21 mg/dL (7-18); BUN/Creat Ratio 17.4 RATIO (10-20); Calcium,Total 8.5 mg/dL (8.5-10.1); Chloride 109 mmol/L (98-107); Creatinine, Serum 1.21 mg/dL (0.70-1.30); EST Glomerular Filtration Rate 61 mL/min (>60); Est Glom Filt Rate - Afr Amer 74 mL/min (>60); Estimated Creatinine Clearance 49.98 ml/min; Glucose 123 mg/dL (74-106); Potassium 4.1 mmol/L (3.5-5.1); Sodium Level 143 mmol/L (136-145)
--- NOTE | 2018-06-04 20:00 | ED.VISSUMM ---
- ER Visit Summary Date of Service: 06/04/18 Chief Complaint: [Wound check] History of Present Illness: The patient is a 78 M [since the emergency department with concern for possible infection to surgical wound. Patient had surgery at the end of March for a fractured ankle by Dr. Villarreal. 1 week ago patient was admitted for suspected cellulitis and spent 3 days in the hospital. Patient was discharged home with Levaquin. Patient continues to complain of pain to the left ankle. Today the patient's daughter took off the dressing the patient had had on the left leg and noted that the leg was quite erythematous and warm and so a picture was sent to the surgeon who advised him to come to the emergency department for possible admission for ongoing cellulitis with possible failed outpatient therapy. Patient denies any chest pain or shortness of breath. Patient's not had any fevers.] Physical Examination: [HEENT-PERRLA, EOMI. Cranial nerves II through XII grossly intact. TMs clear. Mucous membranes moist. No adenopathy. Cardiovascular-regular rate and rhythm without murmur or ectopy Lungs-clear to auscultation, chest wall stable without crepitus or subcu emphysema Abdomen-normoactive bowel sounds, soft, nontender, no rebound or rigidity, no peritoneal signs. Extremities-intact ?4, normal range of motion, normal pulses. Left ankle-patient is noted to have surgical wound to the lateral aspect of the ankle without any evidence of erythema or drainage from the wound. There is no evidence of cellulitis at this time. He is neurovascularly intact with normal station normal cap refill. Normal dorsal pedal and posterior tibial pulses. No significant edema noted. There is some slight warmth noted to the ankle compared to the right side. I was shown a picture of the ankle prior to arrival in the emergency department it was noted that it was quite erythematous at home. Test Results: [CBC with differential obtained showed a white count 6.7, hemoglobin 11, hematocrit 36, platelets 255. Chemistries unremarkable. INR was 2.8.] Emergency Department Course and Treatment: [She was given Unasyn IV as well as vancomycin IV.] Treatment Plan: [Case was discussed with Dr. Jordan who will have patient follow-up with our office tomorrow at this point it is felt that the erythema was likely due to the dressing the patient had on the left leg. Patient does not appear septic. He does not appear ill or toxic. I feel patient can follow-up as an outpatient.] Disposition: [Discharged home in stable condition] Impression: [Postop wound check-no cellulitis noted. Postop pain] This note was generated with [employer] dictation software. It may contain incorrect words, spelling, and punctuation that were not noted in review of the chart prior to signing ED Disposition - Plan for ED Patient: Chief Complaint: Wound Referrals: Guillermo Pritchard MD [Primary Care Provider] -
[2018-06-04 20:02] VITALS: BP 121/61; PULSE 59; RESP 14; O2SAT 98
--- NOTE | 2018-06-04 20:03 | ED.DCSUM_ITS ---
- ER Visit Summary Date of Service: 06/04/18 Chief Complaint: [Wound check] History of Present Illness: The patient is a 78 M [since the emergency department with concern for possible infection to surgical wound. Patient had surgery at the end of March for a fractured ankle by Dr. Villarreal. 1 week ago patient was admitted for suspected cellulitis and spent 3 days in the hospital. Patient was discharged home with Levaquin. Patient continues to complain of pain to the left ankle. Today the patient's daughter took off the dressing the patient had had on the left leg and noted that the leg was quite erythematous and warm and so a picture was sent to the surgeon who advised him to come to the emergency department for possible admission for ongoing cellulitis with possible failed outpatient therapy. Patient denies any chest pain or shortness of breath. Patient's not had any fevers.] Physical Examination: [HEENT-PERRLA, EOMI. Cranial nerves II through XII grossly intact. TMs clear. Mucous membranes moist. No adenopathy. Cardiovascular-regular rate and rhythm without murmur or ectopy Lungs-clear to auscultation, chest wall stable without crepitus or subcu emphysema Abdomen-normoactive bowel sounds, soft, nontender, no rebound or rigidity, no peritoneal signs. Extremities-intact ?4, normal range of motion, normal pulses. Left ankle- patient is noted to have surgical wound to the lateral aspect of the ankle without any evidence of erythema or drainage from the wound. There is no evidence of cellulitis at this time. He is neurovascularly intact with normal station normal cap refill. Normal dorsal pedal and posterior tibial pulses. No significant edema noted. There is some slight warmth noted to the ankle compared to the right side. I was shown a picture of the ankle prior to arrival in the emergency department it was noted that it was quite erythematous at home. Test Results: [CBC with differential obtained showed a white count 6.7, hemoglobin 11, hematocrit 36, platelets 255. Chemistries unremarkable. INR was 2.8.] Emergency Department Course and Treatment: [She was given Unasyn IV as well as vancomycin IV.] Treatment Plan: [Case was discussed with Dr. Jordan who will have patient follow-up with our office tomorrow at this point it is felt that the erythema was likely due to the dressing the patient had on the left leg. Patient does not appear septic. He does not appear ill or toxic. I feel patient can follow- up as an outpatient.] Disposition: [Discharged home in stable condition] Impression: [Postop wound check-no cellulitis noted. Postop pain] This note was generated with [employer] dictation software. It may contain incorrect words, spelling, and punctuation that were not noted in review of the chart prior to signing ED Disposition - Plan for ED Patient: Chief Complaint: Wound Referrals: Guillermo Pritchard MD [Primary Care Provider] -
--- NOTE | 2018-06-04 20:03 | ED.DEP ---
ED Disposition - Plan for ED Patient: Chief Complaint: Wound Instructions: ED Post Op Pain, ED Wound Check Post Op No Infec Referrals: Guillermo Pritchard MD [Primary Care Provider] - Mary Alice Villarreal DPM [STAFF PHYSICIAN] - 1 Day
--- NOTE | 2018-06-04 20:05 | ED.RN ---
called daughter to roller picker pt at [phone]
[2018-06-04] MEDS: Vancomycin IV 1,000 MG/200 ML BAG 200 MG IV (20:28)
[2018-06-04 21:44] VITALS: BP 118/62; PULSE 58; RESP 13; O2SAT 97
== END 2018-06-04 21:50 | disposition home or self-care (01) ==
LOC: ED 19:19
PROVIDERS: Emergency Provider Emergency Medicine; Family Provider Family Medicine; PCP Family Medicine
DX: G89.18 Other acute postprocedural pain (principal); M25.572 Pain in left ankle and joints of left foot; I25.10 Atherosclerotic heart disease of native coronary artery without angina pectoris; J44.9 Chronic obstructive pulmonary disease, unspecified; E78.00 Pure hypercholesterolemia, unspecified; I48.91 Unspecified atrial fibrillation; I11.0 Hypertensive heart disease with heart failure; I50.9 Heart failure, unspecified; Z72.0 Tobacco use; Z79.82 Long term (current) use of aspirin; Z79.51 Long term (current) use of inhaled steroids; Z79.01 Long term (current) use of anticoagulants; Z79.899 Other long term (current) drug therapy
CPT/HCPCS: 80048; 85025; 85610; 96365; 96367; 96375; 99283; J7030; J0295; J2405

== ENCOUNTER 2018-07-28 19:05 | Emergency (ER) | payer MEDICARE, OTHER, SELFPAY ==
[2018-07-14 13:37] VITALS: BMI 23.6
[2018-07-28 19:06] VITALS: BP 125/62; PULSE 86; RESP 20; TEMP 36.4; O2SAT 96; BMI 25.4
--- NOTE | 2018-07-28 19:32 | EKG12_ITS ---
Test Reason : AFIB Blood Pressure : / mmHG Vent. Rate : 087 BPM Atrial Rate : 119 BPM P-R Int : 000 ms QRS Dur : 152 ms QT Int : 406 ms P-R-T Axes : 000 -64 084 degrees QTc Int : 488 ms Sinus tachycardia with 2nd degree A-V block (Mobitz I) Left axis deviation Right bundle branch block Anteroseptal infarct , age undetermined Abnormal ECG Confirmed by JOSÉ KO, WEI ([id number]), supervising editor news reel ADELIA MOLINA ([id number]) on 08/01/2018 4:34:38 PM Referred By: SYDNEY/SERINA Confirmed By:WEI KUMAR MD
--- NOTE | 2018-07-28 19:35 | RAD_ITS ---
STUDY: X-RAY CHEST REASON FOR EXAM: Male, 78 years old. Palpitations TECHNIQUE: AP portable COMPARISON: April 07, 2018 FINDINGS: Lungs are hyperinflated but clear.. There is no demonstrated pleural abnormality. Normal size heart. Normal mediastinum and yonas. Normal visualized pulmonary arteries. Normal visualized aortic arch and descending thoracic aorta. Postop change status post median sternotomy and CABG. Normal visualized thoracic spine. Normal visualized ribs, clavicles, and shoulders. There is no demonstrated abnormality of the visualized soft tissue structures of the upper abdomen. No significant change since prior exam RAD/Chest 1 View (Portable) IMPRESSION: COPD. No acute disease Electronically Signed: Jordy Sevilla MD at 21:24 EST , Service support ,
[2018-07-28 19:40] LABS: Absolute Lymphocyte Count 1.06 X10^3/ul (0.83-4.51); Absolute Neutrophil Count 4.9 X10^3/uL (2.0-7.7); Basophil# 0.04 X10^3/uL; Basophil% 0.6 % (0-1); Eosinophil# 0.11 X10^3/uL; Eosinophils% 1.6 % (0-5); Hematocrit 42.1 % (40-54); Hemoglobin 13.3 g/dl (13.0-16.5); Lymphocyte # 1.06 X10^3/ul (4.0); Lymphocyte % 15.8 % (19-41); Mean Corp Hgb Conc 31.6 g/gl (32-36); Mean Corpuscular Hgb 30.4 pg (27.0-32.0); Mean Corpuscular Volume 96.3 fL (80-94); Mean Platelet Vol. 10.8 fl (6.2-12.0); Monocyte# 0.56 X10^3/uL; Monocyte% 8.3 % (0-10); Neutrophil # 4.92 X10^3/uL (2.7-7.7); Neutrophil % 73.4 % (47-70); Platelet Count 159 K/mm3 (150-450); RBC Distribution Width CV 16.9 % (11.6-14.6); RBC Distribution Width SD 60.2 fl (35.1-43.9); Red Blood Count 4.37 M/mm3 (4.6-6.2); White Blood Count 6.7 K/mm3 (4.4-11.0)
[2018-07-28 19:41] LABS: POSITIVE COUNT NO; POSITIVE DIFFERENTIAL NO; POSITIVE MORPHOLOGY NO
[2018-07-28 19:48] LABS: International Normalized Ratio 2.6; Prothrombin Time (Protime)PT. 27.6 SECONDS (11.7-14.9)
[2018-07-28 19:51] VITALS: BP 122/63; PULSE 83; RESP 16; O2SAT 95
[2018-07-28] MEDS: 0.9% Normal Saline 1,000 ML 150 ML IV (19:51)
[2018-07-28 19:53] LABS: Anion Gap 8 (5-15); BUN 22 mg/dL (7-18); BUN/Creat Ratio 19.8 RATIO (10-20); Chloride 105 mmol/L (98-107); Creatinine, Serum 1.11 mg/dL (0.70-1.30); EST Glomerular Filtration Rate 68 mL/min (>60); Est Glom Filt Rate - Afr Amer 82 mL/min (>60); Glucose 99 mg/dL (74-106); Potassium 4.1 mmol/L (3.5-5.1); Sodium Level 144 mmol/L (136-145)
--- NOTE | 2018-07-28 21:02 | ED.VISSUMM ---
- ER Visit Summary Date of Service: 07/28/18 Chief Complaint: [Palpitations and racing heart] History of Present Illness: The patient is a 78 M [presents the emergency department complaint palpitations that started around 3:30 PM. Patient states that he felt like his heart was racing and when he checked it with the pulse oximeter heart rate was 110 initially and then it went up to 129. Patient denies any chest pain or shortness of breath. He denies recent illness. Patient does have a history of atrial fibrillation and states that he has had this happen before. Patient states normally his palpitations will last 15 minutes and then resolve but they have lasted much longer this time.] Physical Examination: [HEENT-PERRLA, EOMI. Cranial nerves II through XII grossly intact. TMs clear. Mucous membranes moist. No adenopathy. Cardiovascular-irregularly irregular with a 2 out of 6 systolic ejection murmur. Lungs-clear to auscultation, chest wall stable without crepitus or subcu emphysema Abdomen-normoactive bowel sounds, soft, nontender, no rebound or rigidity, no peritoneal signs. Extremities-intact ?4, normal range of motion, normal pulses, atraumatic] Test Results: EKG obtained showed atrial fibrillation with a ventricular rate of 87 bpm with some nonspecific ST changes. Patient had an incomplete right bundle branch block. CBC with differential showed a white count 6.7, hemoglobin 13, hematocrit 49, platelets 159. Chemistries unremarkable. INR was 2.6. Troponin was less than 0.015. Chest x-ray showed nothing acute.] Emergency Department Course and Treatment: [No treatment given initially and over time patient did convert back to normal sinus rhythm with occasional PVCs. Patient symptoms have resolved. I did discuss case with clamper Dr. Guillermo Bearden and discussed possibly increasing his beta-zach and this point was recommended that he increase his metoprolol to 25 mg twice a day. I discussed this with the patient and his daughter and they state that last time he was on the higher dose his heart rate went into the 30s and that is when they backed him off to 12.5 mg twice a day. At this point I recommended not making any changes in his medications and following up with a clamper within next 2-3 days] Treatment Plan: [Follow-up with cardiology 2-3 days] Disposition: [Discharged home in stable condition] Impression: [Paroxysmal atrial fibrillation] This note was generated with [employer] dictation software. It may contain incorrect words, spelling, and punctuation that were not noted in review of the chart prior to signing ED Disposition - Plan for ED Patient: Chief Complaint: Palpitations Referrals: Guillermo Pritchard MD [Primary Care Provider] -
--- NOTE | 2018-07-28 21:09 | ED.DCSUM_ITS ---
- ER Visit Summary Date of Service: 07/28/18 Chief Complaint: [Palpitations and racing heart] History of Present Illness: The patient is a 78 M [presents the emergency department complaint palpitations that started around 3:30 PM. Patient states that he felt like his heart was racing and when he checked it with the pulse oximeter heart rate was 110 initially and then it went up to 129. Patient denies any chest pain or shortness of breath. He denies recent illness. Patient does have a history of atrial fibrillation and states that he has had this happen before. Patient states normally his palpitations will last 15 minutes and then resolve but they have lasted much longer this time.] Physical Examination: [HEENT-PERRLA, EOMI. Cranial nerves II through XII grossly intact. TMs clear. Mucous membranes moist. No adenopathy. Cardiovascular-irregularly irregular with a 2 out of 6 systolic ejection murmur. Lungs-clear to auscultation, chest wall stable without crepitus or subcu emphysema Abdomen-normoactive bowel sounds, soft, nontender, no rebound or rigidity, no pe ritoneal signs. Extremities-intact ?4, normal range of motion, normal pulses, atraumatic] Test Results: EKG obtained showed atrial fibrillation with a ventricular rate of 87 bpm with some nonspecific ST changes. Patient had an incomplete right bundle branch block. CBC with differential showed a white count 6.7, hemoglobin 13, hematocrit 49, platelets 159. Chemistries unremarkable. INR was 2.6. Troponin was less than 0.015. Chest x-ray showed nothing acute.] Emergency Department Course and Treatment: [No treatment given initially and over time patient did convert back to normal sinus rhythm with occasional PVCs. Patient symptoms have resolved. I did discuss case with automatic folder seamer Dr. Guillermo Bearden and discussed possibly increasing his beta-zach and this point was recommended that he increase his metoprolol to 25 mg twice a day. I discussed this with the patient and his daughter and they state that last time he was on the higher dose his heart rate went into the 30s and that is when they backed him off to 12.5 mg twice a day. At this point I recommended not making any changes in his medications and following up with a automatic folder seamer within next 2-3 days] Treatment Plan: [Follow-up with cardiology 2-3 days] Disposition: [Discharged home in stable condition] Impression: [Paroxysmal atrial fibrillation] This note was generated with [employer] dictation software. It may contain incorrect words, spelling, and punctuation that were not noted in review of the chart prior to signing ED Disposition - Plan for ED Patient: Chief Complaint: Palpitations Referrals: Guillermo Pritchard MD [Primary Care Provider] -
--- NOTE | 2018-07-28 21:09 | ED.DEP ---
ED Disposition - Plan for ED Patient: Chief Complaint: Palpitations Instructions: ED Paroxysmal Atrial Flutter, ED Afib Referrals: Guillermo Pritchard MD [Primary Care Provider] - Gavino Rosas MD [STAFF PHYSICIAN] - 3-5 Days
[2018-07-28 21:20] VITALS: BP 128/73; PULSE 71; RESP 15; O2SAT 97
== END 2018-07-28 21:40 | disposition home or self-care (01) ==
LOC: ED 20:17
PROVIDERS: Emergency Provider Emergency Medicine; Family Provider Family Medicine; PCP Family Medicine
DX: I48.0 Paroxysmal atrial fibrillation (principal); I10 Essential (primary) hypertension; J44.9 Chronic obstructive pulmonary disease, unspecified; Z72.0 Tobacco use; Z79.82 Long term (current) use of aspirin; Z79.51 Long term (current) use of inhaled steroids; Z79.01 Long term (current) use of anticoagulants; Z79.891 Long term (current) use of opiate analgesic; Z79.899 Other long term (current) drug therapy
CPT/HCPCS: 71045; 80048; 84484; 85025; 85610; 93005; 96360; 96361; 99285; J7030; A4216

== ENCOUNTER 2019-01-07 08:10 | Emergency (ER) | payer MEDICARE, OTHER, SELFPAY ==
[2019-01-07 08:11] VITALS: BP 157/82; PULSE 55; RESP 18; TEMP 36.7; O2SAT 96; BMI 25.2
--- NOTE | 2019-01-07 08:19 | CT_ITS ---
STUDY: CT ABDOMEN AND PELVIS WITHOUT CONTRAST REASON FOR EXAM: Male, 78 years old. RADIATION DOSAGE (If Supplied By Facility): CTDIvol = ( 7.95 ) mGy, DLP = ( 379.37 ) mGycm TECHNIQUE: Transaxial images were obtained from the dome of the diaphragm to the symphysis pubis without oral contrast, and without intravenous contrast. Sagittal and coronal images were reconstructed. Individualized dose optimization techniques were used for this CT. COMPARISON: May 12, 2018 FINDINGS: The visualized lung revealed cystic changes involving the right base base. The visualized portions of the heart are within normal limits except for coronary calcification. The liver and spleen are normal in size and attenuation no focal lesion noted. The the suprarenal glands and pancreas are unremarkable. The stomach is full with food. 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 No evidence of stone formation. There is noted to rule out coronal or periaortic lymphadenopathy. Significant atherosclerotic changes noted within the abdomen and aorta and iliac vessels. The small and large bowel are unremarkable. The appendix is seen without evidence of appendicitis. The urinary bladder is nondistended. The prostate is mildly enlarged. There is no evidence of ascites or free fluid within the peritoneal cavity. Moderate hypertrophic changes noted in the spine with evidence of spinal fixation with hardware in the lower lumbar region. CT/Abdomen/Pelvis without Cont IMPRESSION: Negative unenhanced CT of the abdomen and pelvis unchanged since May 12, 2018. Electronically Signed: Anandkailash Godoytod, at 9:40 EDT Tel , Service support ,
--- NOTE | 2019-01-07 08:21 | ED.VIS.GEN ---
History of Present Illness Chief Complaint: Abd Pain Informant: Patient Onset: Today Current Severity: Moderate Narrative: Patient has a history of cardiac valve placement in the , indicates he went to bed feeling fine then at 4:00 in the morning he was awoken by pain to the right lower quadrant this persisted, he has had normal bowel bladder habits since, he said no vomiting no back pain he has no history of GI illness, no history of kidney stones, he points directly to the right lower quadrant as focus of his pain Past Medical History - Allergies and Home Meds Allergies/Adverse Reactions: Allergies No Known Allergies Allergy (Verified 07/28/18 19:08) Primary Care Physician: Guillermo Pritchard MD [Primary Care Provider] - Past Medical History: - Surgical History: coronary bypass surgery, - - Mechanical aortic valve replacement, back surgeries, RLE ankle surgery recently. Smoking Status: Current every day smoker - Family History Maternal Family History: Family History (Last Reviewed 04/07/18 @ 17:04 by Pancho Mantilla DO) Son CAD (coronary artery disease) Myocardial infarction Sudden cardiac Brother CAD (coronary artery disease) Sister CAD (coronary artery disease) Family History: Reports: Diabetes, Heart Disease, Hypertension Paternal Family History: Family History (Last Reviewed 04/07/18 @ 17:04 by Pancho Mantilla DO) Son CAD (coronary artery disease) Myocardial infarction Sudden cardiac Brother CAD (coronary artery disease) Sister CAD (coronary artery disease) Family History: Reports: Diabetes, Heart Disease, Hypertension Review of Systems ROS: - See above General: Denies: Chills, Fever, Sweats Eyes: Denies: Visual changes - bilaterally, Diplopia ENT: Denies: Rhinorrhea, Sore throat Cardiovascular: Denies: Chest pain, Palpitations Respiratory: Denies: Dyspnea, Cough, Dyspnea on exertion Gastrointestinal: Reports: Abdominal pain. Denies: Nausea, Vomiting, Diarrhea, Melena, Hematochezia Genitourinary: Denies: Dysuria, Hematuria, Frequency Musculoskeletal: Denies: Back pain, Extremity Pain Skin: Denies: Rash, Wounds Neurological: Denies: Headache, Weakness, Numbness Physical Exam Vital Signs/Narrative: Vital Signs Temp Pulse Resp BP Pulse Ox 01/07/19 08:11 98.0 F 55 L 18 157/82 H 96 General: Well nourished, Well developed, No Acute Distress Head: Normocephalic, Atraumatic Eyes: Perrl, EOMI ENT: Moist mucous membranes, No rhinorrhea Neck: Supple, Nontender Cardiovascular: Regular rate, Regular rhythm, No murmurs Respiratory: No distress, CTA bilaterally, Chest nontender Abdomen: Soft, Normal bowel sounds, Tender, - - There is discomfort to the right lower abdomen there is no rebound, his exam is unremarkable his back unremarkable he has minimal distention Back: Nontender, Normal Inspection Extremities: Nontender, No edema Skin: Normal color, No rash Neurological: Alert, Oriented x3, Cranial nerves II-XII grossly intact, Normal Strength, Normal Sensation Psychological: Normal affect, Normal Mood Diagnostic/Tx/Re-eval - Medical Decision Making The differential is extensive this was sudden onset of pain screening labs IV fluids pain management The patient screening labs are generally unremarkable see those reports except the UA shows microscopic hematuria, the CT abdomen pelvis shows nothing acute, on reevaluation the patient's symptoms are resolved his abdomen soft and nontender discussed the patient the family he apparently has had some abnormalities in the past and was seen by ND , the family was not satisfied with that evaluation they have asked that he be referred to a local urologist he is referred to us to urology he will follow-up with them return for change in symptoms Disposition Home stable Final impression Right-sided abdominal pain resolved, microscopic hematuria ED Disposition - Plan for ED Patient: Diagnosis: Abdominal pain Instructions: ABDOMINAL PAIN, Unkown Cause, (Male) Referrals: Guillermo Pritchard MD [Primary Care Provider] - Mateusz Willis MD [STAFF PHYSICIAN] -
[2019-01-07] MEDS: morphine 8 MG/ML Syringe IV (08:26)
[2019-01-07] MEDS: Ondansetron 4 MG/2 ML Vial IV (08:26)
[2019-01-07] MEDS: 0.9% Normal Saline 1,000 ML 125 ML IV (08:26)
[2019-01-07 08:46] LABS: Absolute Lymphocyte Count 0.43 X10^3/ul (0.83-4.51); Absolute Neutrophil Count 2.7 X10^3/uL (2.0-7.7); Basophil# 0.02 X10^3/uL; Basophil% 0.6 % (0-1); Differential Indicated SCAN CRITERIA MET; Eosinophil# 0.05 X10^3/uL; Eosinophils% 1.4 % (0-5); Hematocrit 39.9 % (40-54); Hemoglobin 12.2 g/dl (13.0-16.5); Lymphocyte # 0.43 X10^3/ul (4.0); Lymphocyte % 12.3 % (19-41); Mean Corp Hgb Conc 30.6 g/gl (32-36); Mean Corpuscular Hgb 30.3 pg (27.0-32.0); Mean Platelet Vol. 10.6 fl (6.2-12.0); Monocyte% 8.5 % (0-10); Neutrophil % 76.9 % (47-70); POSITIVE COUNT NO; POSITIVE DIFFERENTIAL YES; POSITIVE MORPHOLOGY NO; Platelet Count 131 K/mm3 (150-450); Red Blood Count 4.03 M/mm3 (4.6-6.2); White Blood Count 3.5 K/mm3 (4.4-11.0)
[2019-01-07 08:50] LABS: International Normalized Ratio 2.7; Prothrombin Time (Protime)PT. 29.1 SECONDS (11.7-14.9)
[2019-01-07 09:00] LABS: AST(SGOT) 44 U/L (15-37); Alanine Aminotransfer ALT/SGPT 29 U/L (16-61); Albumin, Serum 3.5 g/dL (3.2-5.0); Alkaline Phosphatase 121 U/L (45-117); Anion Gap 5 (5-15); BUN 25 mg/dL (7-18); BUN/Creat Ratio 16.4 RATIO (10-20); Bilirubin, Direct 0.17 mg/dL (0.00-0.30); Calcium,Total 8.5 mg/dL (8.5-10.1); Chloride 107 mmol/L (98-107); Creatinine, Serum 1.52 mg/dL (0.70-1.30); EST Glomerular Filtration Rate 47 mL/min (>60); Est Glom Filt Rate - Afr Amer 57 mL/min (>60); Estimated Creatinine Clearance 40.02 ml/min; Globulin 3.1 g/dL (2.2-4.2); Glucose 142 mg/dL (74-106); Lipase 72 U/L (73-393); Potassium 3.9 mmol/L (3.5-5.1); Protein, Total 6.6 g/dL (6.4-8.2); Sodium Level 142 mmol/L (136-145)
[2019-01-07 09:11] LABS: Platelet Estimate SLT DEC (ADEQ)
[2019-01-07 09:33] LABS: Mucous, Urine 0 SEEN /hpf (<or=2+); Squamous Epithelial Cells - UA 0 SEEN /hpf (0-5); White Blood Cells 0 SEEN /hpf (0-5)
[2019-01-07 09:41] LABS: Color, Urine Yellow (Yellow); Glucose, Dipstick Normal (Normal); Ketone-Dipstick Negative (Negative); Leukocyte Esterase-Dipstick Negative /ul (Negative); Nitrite-Dipstick Negative (Negative); Occult Blood-Urine 250 /ul (Negative); Protein-Dipstick 15 mg/dl (Negative); Specific Gravity, Urine 1.015 (1.002-1.030); Urine Bilirubin Dipstick Negative (Negative); Urine Clarity Sl. Cloudy (Clear); Urine Urobilinogen Normal (Normal)
[2019-01-07 09:47] LABS: Bacteria RARE /hpf (None Seen); Red Blood Cells-Urine 50-100 SEEN /hpf (0-5)
[2019-01-07 10:11] VITALS: RESP 18
[2019-01-07] MEDS: HYDROcodone Bitartrate/Apap 5/325 Tablet PO (11:41)
== END 2019-01-07 11:42 | disposition home or self-care (01) ==
PROVIDERS: Emergency Provider Emergency Medicine; Family Provider Family Medicine; PCP Family Medicine
DX: R31.29 Other microscopic hematuria (principal); R10.9 Unspecified abdominal pain; F17.200 Nicotine dependence, unspecified, uncomplicated
CPT/HCPCS: 74176; 80048; 80076; 81001; 83690; 84484; 85025; 85610; 87086; 87088; 96361; 96374; 96375; 99285; J7030; J7040; A4216; J2405

== ENCOUNTER → 2019-03-23 | Outpatient (CLI) | payer MEDICARE, OTHER, SELFPAY ==
--- NOTE | 2019-03-23 15:48 | CT_ITS ---
STUDY: CT ankle REASON FOR EXAM: Male, 78 years old. Ankle fracture RADIATION DOSAGE (If Supplied By Facility): CTDIvol = ( 15.35 ) mGy, DLP = ( 404.88 ) mGycm TECHNIQUE: Transaxial images were obtained post I.V. administration of , and oral contrast. Sagittal and coronal images were reconstructed. Individualized dose optimization techniques were used for this CT. COMPARISON: 25 May 2018 FINDINGS: There is remote fracture of medial malleolus and distal tibia with screw and plate fixation. Fracture is fully healed and not seen. Hardware is intact and in the expected location with normal bone interface. There is no acute fracture. There is mild demineralization of the ankle and hindfoot. Soft tissues are unremarkable. Appearance is similar to prior CT/Extremity Lower without Contra IMPRESSION: 1. No acute findings or change since prior. 2. Expected appearance of remote hardware fixation of medial and lateral malleolar fractures. Electronically Signed: Juanpablo Vazquez, at 18:05 EDT Tel , Service support ,
== END | disposition home or self-care (01) ==
PROVIDERS: Family Provider Family Medicine; PCP Family Medicine; Referring Provider Podiatrist; Visit Provider Podiatrist
DX: M25.572 Pain in left ankle and joints of left foot (principal); M24.172 Other articular cartilage disorders, left ankle; M19.272 Secondary osteoarthritis, left ankle and foot; M87.072 Idiopathic aseptic necrosis of left ankle
CPT/HCPCS: 73700

== ENCOUNTER → 2019-04-27 | Outpatient (CLI) | payer MEDICARE, SELFPAY ==
[2019-04-12 10:43] VITALS: BMI 24.3
--- NOTE | 2019-04-27 12:46 | ECHOCS_ITS ---
Reason For Study: VALVE REPL Procedure This was a 2D Doppler, Color Flow transthoracic echocardiogram. The study was technically difficult. Contrast injection was performed. Exam performed in department. Left Ventricle Moderately dilated left ventricle. The estimated ejection fraction is 45-50 %. Stage 2 diastolic dysfunction. Basal anteroseptal: Mildly hypokinetic. Mid-anteroseptal : Mildly hypokinetic. Right Ventricle Moderately dilated right ventricle. Normal systolic function. Atria The left atrium is mildly enlarged. Normal right atrium. Normal atrial septum. Mitral Valve The mitral valve is structurally normal. No prolapse or stenosis seen. Trivial mitral valve insufficiency. Tricuspid Valve Normal tricuspid valve. Mild (1+) tricuspid valve insufficiency. Right ventricular systolic pressure estimated to be 36 mmHg. Aortic Valve Peak aortic valve gradient 20 mmHg. Mean aortic valve gradient 13 mmHg. Stable appearing bioprosthetic aortic valve apparatus. Pulmonic Valve Normal pulmonic valve. Great Vessels Normal aortic root. Mild atherosclerosis of the aortic arch. Normal inferior vena cava. Inferior vena cava collapse with sniff. Pericardium/Pleural No pericardial effusion. Medication 22 gauge I.V. with prn adaptor inserted into right arm. Diluted definity 3.0ml given slow IV push to enhance endocardial definition. MMode/2D Measurements & Calculations LVIDd: 5.2 cm IVSd: 1.2 cm LVOT diam: 2.0 cm LVIDs: 3.8 cm LVPWd: 1.1 cm RVDd: 4.1 cm FS: 27.5 % LVOT area: 3.2 cm2 Ao root diam: 4.4 cm LAV(MOD-bp): 58.8 ml LA A4 area: 21.3 cm2 LAV(MOD-bp) Indexed: 30.2 ml/m2 LAV(MOD-sp2): 45.7 ml LAV(MOD-sp4): 65.4 ml LA dimension(2D): 4.5 cm RA A4 area: 16.5 cm2 Time Measurements MV dec time: 0.22 sec Doppler Measurements & Calculations MV E max vega: 98.2 cm/sec Lat Peak E' Vega: 12.5 cm/sec Med Peak E' Vega: 6.1 cm/sec MV A max vega: 69.1 cm/sec E/E' lat: 7.8 E/E' med: 16.2 MV E/A: 1.4 Ao V2 max: 242.4 cm/sec LV V1 max: 75.1 cm/sec SV(LVOT): 53.8 ml Ao max P.6 mmHg LV V1 max P.3 mmHg Ao V2 mean: 180.1 cm/sec LV V1 mean P.4 mmHg Ao mean P.0 mmHg LV V1 mean: 56.7 cm/sec Ao V2 VTI: 55.3 cm LV V1 VTI: 17.0 cm MATTEO(I,D): 0.97 cm2 MATTEO(V,D): 0.98 cm2 PA V2 max: 100.9 cm/sec TR max vega: 280.1 cm/sec TR max P.4 mmHg Interpretation Summary Moderately dilated left ventricle. The estimated ejection fraction is 45-50 %. Stage 2 diastolic dysfunction. Moderately dilated right ventricle. The left atrium is mildly enlarged. Mild (1+) tricuspid valve insufficiency. Right ventricular systolic pressure estimated to be 36 mmHg. Stable appearing and normally functioning bioprosthetic aortic valve apparatus. Compared to echo report dated 01/31/2017, LV function has remained the same, and RVSP has improved from 52 to 36 mm Hg. The study was technically difficult. Contrast injection was performed. Ordering Physician: Gavino Rosas Referring Physician: BLOSSOM RIOS Performed By: Rebecca Marlow, RDCS, RVT
== END | disposition home or self-care (01) ==
PROVIDERS: Family Provider Family Medicine; PCP Family Medicine; Referring Provider Internal Medicine Cardiovascular Disease; Visit Provider Internal Medicine Cardiovascular Disease
DX: I36.1 Nonrheumatic tricuspid (valve) insufficiency (principal); Z95.2 Presence of prosthetic heart valve
CPT/HCPCS: 93306; Q9957; A4216; C8929

== ENCOUNTER → 2019-08-10 17:01 | Outpatient (CLI) | payer MEDICARE, SELFPAY ==
[2019-08-03 14:17] VITALS: BMI 24.3
--- NOTE | 2019-08-10 17:03 | RAD_ITS ---
STUDY: X-RAY - LEFT SHOULDER REASON FOR EXAM: Male, 79 years old. left shoulder pain TECHNIQUE: 4 view(s) of the shoulder. COMPARISON: None. FINDINGS: There is mild degenerative arthrosis of the glenohumeral articulation. Normal acromioclavicular joint. Normal acromion. Normal humeral head and visualized proximal humerus. The soft tissue structures are unremarkable. Normal visualized pulmonary apex. RAD/Shoulder min 2 Views IMPRESSION: Mild glenohumeral joint arthrosis. Electronically Signed: Kulwant Parker MD ([place]) at 17:47 EST , Service support ,
== END ==
PROVIDERS: PCP Family Medicine; Referring Provider Family Medicine; Visit Provider Family Medicine
DX: M25.512 Pain in left shoulder (principal)
CPT/HCPCS: 73030

== ENCOUNTER → 2020-05-30 12:03 | Outpatient (CLI) | payer MEDICARE, SELFPAY ==
[2020-05-26 09:19] VITALS: BMI 23.8
[2020-05-30 15:55] LABS: Anion Gap 6 (5-15); BUN 21 mg/dL (7-18); BUN/Creat Ratio 16.9 RATIO (10-20); Calcium,Total 8.7 mg/dL (8.5-10.1); Chloride 104 mmol/L (98-107); Cholesterol 154 mg/dL (200); Creatinine, Serum 1.24 mg/dL (0.70-1.30); EST Glomerular Filtration Rate 59 mL/min (>60); Est Glom Filt Rate - Afr Amer 72 mL/min (>60); Glucose 99 mg/dL (74-106); High Density Lipoprotein 53 mg/dL; Potassium 4.2 mmol/L (3.5-5.1); Sodium Level 140 mmol/L (136-145); Triglycerides 190 mg/dL; Very Low Density Lipoprotein 38 mg/dL (5-40)
== END ==
PROVIDERS: PCP Family Medicine; Referring Provider Family Medicine; Visit Provider Family Medicine
DX: E11.9 Type 2 diabetes mellitus without complications (principal)
CPT/HCPCS: 36415; 80048; 80061

== ENCOUNTER → 2020-07-21 11:07 | Outpatient (CLI) | payer MEDICARE, SELFPAY ==
[2020-05-26 09:19] VITALS: BMI 23.8
[2020-07-21 12:56] LABS: Erythrocyte Sedimentation Rate 26 mm/hr (0-20)
[2020-07-21 12:58] LABS: Absolute Lymphocyte Count 0.73 X10^3/uL (0.83-4.51); Basophil# 0.03 X10^3/uL; Basophil% 0.6 % (0-1); Eosinophil# 0.09 X10^3/uL; Eosinophils% 1.7 % (0-5); Hematocrit 40.4 % (40-54); Hemoglobin 12.9 g/dL (13.0-16.5); Lymphocyte # 0.73 X10^3/ul (4.0); Mean Corp Hgb Conc 31.9 g/dL (32-36); Mean Corpuscular Hgb 29.9 pg (27.0-32.0); Mean Corpuscular Volume 93.7 fL (80-94); Mean Platelet Vol. 11.6 fl (6.2-12.0); Monocyte# 0.37 X10^3/uL; Monocyte% 7.1 % (0-10); NRBC Flagged by Analyzer 0 % (0-5); Neutrophil # 3.98 X10^3/uL (2.7-7.7); Platelet Count 129 K/mm3 (150-450); RBC Distribution Width CV 16.2 % (11.6-14.6); RBC Distribution Width SD 55.8 fl (35.1-43.9); Red Blood Count 4.31 M/mm3 (4.6-6.2); White Blood Count 5.2 K/mm3 (4.4-11.0)
[2020-07-21 13:29] LABS: ALB/GLOB Ratio 1.1 RATIO (0.9-2.4); AST(SGOT) 34 U/L (15-37); Alanine Aminotransfer ALT/SGPT 32 U/L (16-61); Albumin, Serum 3.7 g/dL (3.2-5.0); Alkaline Phosphatase 141 U/L (45-117); Anion Gap 6 (5-15); BUN 16 mg/dL (7-18); BUN/Creat Ratio 14.4 RATIO (10-20); CRP < 2.90 mg/L (0.0-3.0); Calcium,Total 8.6 mg/dL (8.5-10.1); Chloride 108 mmol/L (98-107); Creatinine, Serum 1.11 mg/dL (0.70-1.30); EST Glomerular Filtration Rate 67 mL/min (>60); Est Glom Filt Rate - Afr Amer 82 mL/min (>60); Globulin 3.4 g/dL (2.2-4.2); Glucose 112 mg/dL (74-106); Potassium 3.6 mmol/L (3.5-5.1); Protein, Total 7.1 g/dL (6.4-8.2); Sodium Level 143 mmol/L (136-145)
== END ==
PROVIDERS: PCP Family Medicine; Referring Provider Podiatrist; Visit Provider Podiatrist
DX: L03.116 Cellulitis of left lower limb (principal)
CPT/HCPCS: 36415; 80053; 85025; 85652; 86140; 87070; 87075; 87077; 87186; 87205

== ENCOUNTER → 2020-08-01 05:36 | Outpatient (CLI) | payer MEDICARE, SELFPAY ==
[2020-05-26 09:19] VITALS: BMI 23.8
--- NOTE | 2020-08-01 05:38 | NM_ITS ---
CLINICAL: 80-year-old male with reported history of left ankle fracture with orthopedic hardware placement, with current presentation of soft tissue wound formation involving the left ankle. LIMITED 99m Tc HMPAO LABELED LEUKOCYTE EXAMINATION COMPARISON: None available FINDINGS: Following the intravenous administration of approximately 25.0 mCi of 99m Tc HMPAO labeled leukocytes, image acquisitions of the distal lower extremities at presumably 2.0 hours post radiopharmaceutical administration reveal: 1. There is subtle asymmetric increased radiopharmaceutical concentration identified in the posterior compartment of the left ankle-hindfoot on the posterior projections only. NM/Inflammatory Process Limited IMPRESSION: 1. The increase in tracer concentration observed in the posterior compartment of the left ankle-left hindfoot likely represents a small nidus of activated leukocytes associated with active infection of bone-osteomyelitis. Further evaluation with Tc sulfur colloid imaging may be of benefit and or gallium 67 citrate if more extensive infection is a diagnostic consideration in the setting of chronicity. Select max Electronically Signed: Darien Grove DO at 8:22 EST Tel , Service support ,
== END ==
LOC: NM 05:38
PROVIDERS: PCP Family Medicine; Referring Provider Podiatrist; Visit Provider Podiatrist
DX: T85.79XA Infection and inflammatory reaction due to other internal prosthetic devices, implants and grafts, initial encounter (principal); L03.116 Cellulitis of left lower limb; M25.572 Pain in left ankle and joints of left foot
CPT/HCPCS: 78801; A9521

== ENCOUNTER → 2020-08-13 09:38 | Outpatient (CLI) | payer MEDICARE, SELFPAY ==
[2020-05-26 09:19] VITALS: BMI 23.8
--- NOTE | 2020-08-13 09:42 | NM_ITS ---
CLINICAL: 80-year-old male suspected left hindfoot osteomyelitis. LIMITED 99m Tc SULFUR COLLOID EXAMINATION COMPARISON: Tc HMPAO labeled leukocyte study dated 08/01/2020 FINDINGS: Following the intravenous administration of 10.1 mCi of 99m Tc sulfur colloid, image acquisitions obtained at 30 minutes post radiopharmaceutical administration reveal: 1. There is an increase in tracer concentration identified in the posterior medial compartment of the left ankle corresponding to the abnormality defined on labeled leukocyte imaging dated 08/01/2020. NM/Bone Scan Limited Area IMPRESSION: 1. The increase in uptake visualized in the posterior compartment of the left ankle correlating with the abnormality defined on labeled leukocyte imaging dated 08/01/2020 (labeled leukocyte-sulfur colloid MATCH) is consistent with a low likelihood of active infection of bone-osteomyelitis. (Devon et al, J Nucl Med 39: 346, 1998). Electronically Signed: Darien Grove DO at 18:32 EST Tel , Service support ,
== END ==
LOC: NM 09:39
PROVIDERS: PCP Family Medicine; Referring Provider Podiatrist; Visit Provider Podiatrist
DX: M25.572 Pain in left ankle and joints of left foot (principal); L03.116 Cellulitis of left lower limb; T85.79XA Infection and inflammatory reaction due to other internal prosthetic devices, implants and grafts, initial encounter
CPT/HCPCS: 78300; A9541

== ENCOUNTER 2020-10-11 20:41 | Inpatient (IN) | payer OTHER, MEDICARE, SELFPAY ==
[2020-05-26 09:19] VITALS: BMI 23.8
[2020-10-11] VITALS (7 sets, daily range): BP systolic 136–146; BP diastolic 67–80; PULSE 50–65; RESP 16–21; TEMP 36.4–36.5; O2SAT 94–96; BMI 27.6; BMI 25.4; BMI 25.5
--- NOTE | 2020-10-11 20:44 | ED.RN ---
CALLED FOR EKG PER RN REQUEST, PULLED OLD EKGS FOR
--- NOTE | 2020-10-11 20:55 | EKG12_ITS ---
Test Reason : SOB Blood Pressure : / mmHG Vent. Rate : 067 BPM Atrial Rate : 067 BPM P-R Int : 000 ms QRS Dur : 126 ms QT Int : 456 ms P-R-T Axes : 000 -59 037 degrees QTc Int : 481 ms Atrial fibrillation Left axis deviation Right bundle branch block Anterior infarct , age undetermined Abnormal ECG Confirmed by JOSÉ KO, WEI ([id number]), general expeditor MIMA VALDEZ ([id number]) on 10/13/2020 1:38:13 PM Referred By: RM/DANA Confirmed By:WEI KUMAR MD
--- NOTE | 2020-10-11 20:58 | ED.DCSUM_ITS ---
History of Present Illness Chief Complaint: Shortness of Breath Informant: Patient Onset: Days Context: Gradual Onset Current Severity: Mild Maximum Severity: Moderate Narrative: Present secondary to increased shortness of breath of the past 2 days. He does report a 9 pound weight gain over the past 2 weeks. He states his legs are swollen and burning. His abdomen feels distended and firm. He states he had difficulty lying down to sleep and has had to prop himself up to breathe. Patient does have a history of CHF. Last echocardiogram was from April 2019 at which time his EF was 45 to 50%. Patient states he does take a water pill at home. He states the dosing on this has not changed recently. - Past Medical History (1) Atrial fibrillation Status: Chronic (2) COPD (chronic obstructive pulmonary disease) Status: Chronic (3) Chronic systolic (congestive) heart failure Status: Chronic (4) HLD (hyperlipidemia) Status: Chronic (5) HTN (hypertension) Status: Chronic (6) History of aortic valve replacement Status: Chronic Comment: 03/27/1993: RED to LAD and 23mm [facility] History of coronary artery stent placement Status: Chronic Comment: 06/28/2011 prior to PTCA and BMS (3.0 mm X 18 mm long Integrity stent) to mid LAD, BMS to the mid distal CX (4.5 X 16mm Veriflex stent), and BMS to the proximal CX (3.5 X 15 mm Integrity stent) @ [facility] (8) Ischemic cardiomyopathy Status: Chronic (9) S/P CABG x 1 Status: Chronic Comment: 03/27/1993: RED to LAD and 23mm [facility] Rachid Prosthetic AVR [facility]) Secondary pulmonary arterial hypertension Status: Chronic Past Medical History - Allergies and Home Meds Allergies/Adverse Reactions: Allergies No Known Allergies Allergy (Verified 10/11/20 20:47) Primary Care Physician: Guillermo Pritchard MD [Primary Care Provider] - Surgical History: coronary bypass surgery, - - Mechanical aortic valve replacement, back surgeries, RLE ankle surgery recently. Smoking Status: Current every day smoker - Family History Maternal Family History: Family History (Last Reviewed 11/26/19 @ 13:35 by Laron Clay DIRECTOR OF TECHNOLOGY, DIRECTOR OF TECHNOLOGY-C) Son CAD (coronary artery disease) Myocardial infarction Sudden cardiac Brother CAD (coronary artery disease) Sister CAD (coronary artery disease) Family History: Reports: Diabetes, Heart Disease, Hypertension Paternal Family History: Family History (Last Reviewed 11/26/19 @ 13:35 by Laron Clay DIRECTOR OF TECHNOLOGY, DIRECTOR OF TECHNOLOGY-C) Son CAD (coronary artery disease) Myocardial infarction Sudden cardiac Brother CAD (coronary artery disease) Sister CAD (coronary artery disease) Family History: Reports: Diabetes, Heart Disease, Hypertension Review of Systems General: Denies: Chills, Fever Eyes: Denies: Visual changes - bilaterally ENT: Denies: Bilateral ear pain Cardiovascular: Denies: Chest pain, Palpitations Respiratory: Reports: Dyspnea. Denies: Cough Gastrointestinal: Reports: Abdominal pain - Abdominal distention. Denies: Constipation Genitourinary: Denies: Dysuria Musculoskeletal: Reports: Swelling, Extremity Pain Skin: Denies: Rash Neurological: Denies: Headache Hematologic: Denies: Easy bruising, Easy bleeding Allergy: Denies: Uticaria Physical Exam Vital Signs/Narrative: Vital Signs Temp Pulse Resp BP Pulse Ox 10/11/20 20:41 97.7 F L 65 21 H 146/73 H 96 Inital Vital Signs reviewed: Yes General: Well nourished, Well developed Head: Normocephalic Neck: Supple Cardiovascular: Irregular Respiratory: No distress, Diminished Abdomen: - - Abdomen is distended and slightly firm. Extremities: Edema - 3+ bilateral lower extremity edema. Skin: Normal color Neurological: Alert, Oriented x3 Psychological: Normal affect Diagnostic/Tx/Re-eval Chest X-Ray - ED: 1 View, Read by ED Physician, CHF Impressions Chest X-Ray 10/11/20 21:05 IMPRESSION: Increased interstitial opacities, mostly in the lung bases may represent edema and/or infection. Trace right pleural effusion. Electronically Signed: Charlie Barrientos MD at 21:25 EDT Tel , Service support , 10/11/20 21:05 Chest 1 View (Portable) [RAD] Stat Laboratory Results 10/11/20 10/11/20 10/11/20 20:53 20:53 20:53 WBC 3.3 L RBC 4.12 L Hgb 12.7 L Hct 40.4 MCV 98.1 H MCH 30.8 MCHC 31.4 L RDW Std Deviation 57.6 H RDW Coeff of Kalyan 16.1 H Plt Count 129 L MPV 10.2 Immature Gran % (Auto) 0.600 Neut % (Auto) 71.4 H Lymph % (Auto) 16.0 L [place] % (Auto) 8.4 Eos % (Auto) 2.4 Baso % (Auto) 1.2 H Absolute Neuts (auto) 2.4 Absolute Lymphs (auto) 0.53 L Nucleated RBC % 0 Differential Comment SCANNED Diff Path Review November foll PT 21.1 H INR 1.9 Sodium 143 Potassium 4.0 Chloride 112 H Carbon Dioxide 26.0 Anion Gap 5 BUN 16 Creatinine 1.12 Estim Creat Clear Calc 52.50 Est GFR (MDRD) Af Amer 81 Est GFR (MDRD) Non-Af 67 BUN/Creatinine Ratio 14.3 Glucose 110 H Calcium 8.6 Total Bilirubin 0.90 Direct Bilirubin 0.25 AST 34 ALT 36 Alkaline Phosphatase 154 H Troponin I < 0.015 B-Natriuretic Peptide Total Protein 6.6 Albumin 3.5 Globulin 3.1 10/11/20 20:53 WBC RBC Hgb Hct MCV MCH MCHC RDW Std Deviation RDW Coeff of Kalyan Plt Count MPV Immature Gran % (Auto) Neut % (Auto) Lymph % (Auto) [place] % (Auto) Eos % (Auto) Baso % (Auto) Absolute Neuts (auto) Absolute Lymphs (auto) Nucleated RBC % Differential Comment Diff Path Review PT INR Sodium Potassium Chloride Carbon Dioxide Anion Gap BUN Creatinine Estim Creat Clear Calc Est GFR (MDRD) Af Amer Est GFR (MDRD) Non-Af BUN/Creatinine Ratio Glucose Calcium Total Bilirubin Direct Bilirubin AST ALT Alkaline Phosphatase Troponin I B-Natriuretic Peptide 561.7 H Total Protein Albumin Globulin - EKG Initial EKG Interpretation: Atrial Fibrillation - A. fib at 67 with right bundle branch block. No acute ischemia. - Medical Decision Making Chest x-ray reveals signs of CHF. BNP is elevated at 560. Remainder of blood work is largely unremarkable. INR is 1.9. Patient is given 40 mg of IV Lasix. Patient discussed with hospitalist and will be admitted for further treatment. ED Disposition - Plan for ED Patient: Disposition: Acute Care Hospital [facility] Diagnosis: CHF exacerbation Referrals: Guillermo Pritchard MD [Primary Care Provider] -
[2020-10-11 21:03] LABS: Absolute Lymphocyte Count 0.53 X10^3/uL (0.83-4.51); Absolute Neutrophil Count 2.4 X10^3/uL (2.0-7.7); Basophil# 0.04 X10^3/uL; Basophil% 1.2 % (0-1); Eosinophil# 0.08 X10^3/uL; Eosinophils% 2.4 % (0-5); Hematocrit 40.4 % (40-54); Hemoglobin 12.7 g/dL (13.0-16.5); Lymphocyte # 0.53 X10^3/ul (4.0); Mean Corp Hgb Conc 31.4 g/dL (32-36); Mean Corpuscular Hgb 30.8 pg (27.0-32.0); Mean Corpuscular Volume 98.1 fL (80-94); Mean Platelet Vol. 10.2 fl (6.2-12.0); Monocyte# 0.28 X10^3/uL; Monocyte% 8.4 % (0-10); NRBC Flagged by Analyzer 0 % (0-5); Neutrophil # 2.37 X10^3/uL (2.7-7.7); Neutrophil % 71.4 % (47-70); POSITIVE DIFFERENTIAL YES; Platelet Count 129 K/mm3 (150-450); RBC Distribution Width CV 16.1 % (11.6-14.6); RBC Distribution Width SD 57.6 fl (35.1-43.9); Red Blood Count 4.12 M/mm3 (4.6-6.2); White Blood Count 3.3 K/mm3 (4.4-11.0)
--- NOTE | 2020-10-11 21:05 | RAD_ITS ---
INDICATION: sob EXAMINATION/TECHNIQUE: X-RAY - XR Chest 1 View COMPARISON: 07/28/2018.. FINDINGS: Increased interstitial opacities, most severe in the lung bases. Heart is at the upper limits of normal. Tortuous and calcified thoracic aorta. Median sternotomy wires present. Trace right pleural effusion. No acute osseous abnormalities. RAD/Chest 1 View (Portable) IMPRESSION: Increased interstitial opacities, mostly in the lung bases may represent edema and/or infection. Trace right pleural effusion. Electronically Signed: Charlie Barrientos MD at 21:25 EDT Tel , Service support ,
[2020-10-11 21:08] LABS: Differential Indicated SCAN CRITERIA MET
[2020-10-11 21:21] LABS: AST(SGOT) 34 U/L (15-37); Alanine Aminotransfer ALT/SGPT 36 U/L (16-61); Albumin, Serum 3.5 g/dL (3.2-5.0); Alkaline Phosphatase 154 U/L (45-117); Anion Gap 5 (5-15); BUN 16 mg/dL (7-18); BUN/Creat Ratio 14.3 RATIO (10-20); Bilirubin, Direct 0.25 mg/dL (0.00-0.30); Calcium,Total 8.6 mg/dL (8.5-10.1); Chloride 112 mmol/L (98-107); Creatinine, Serum 1.12 mg/dL (0.70-1.30); EST Glomerular Filtration Rate 67 mL/min (>60); Est Glom Filt Rate - Afr Amer 81 mL/min (>60); Globulin 3.1 g/dL (2.2-4.2); Glucose 110 mg/dL (74-106); Protein, Total 6.6 g/dL (6.4-8.2); Sodium Level 143 mmol/L (136-145)
[2020-10-11 21:22] LABS: International Normalized Ratio 1.9; Prothrombin Time (Protime)PT. 21.1 SECONDS (11.7-14.9)
[2020-10-11] MEDS: Furosemide 40 MG/4 ML Vial IV (21:32)
[2020-10-11 21:35] LABS: Differential Comment SCANNED
[2020-10-11 21:54] LABS: BNP,B-Type NATRIURETIC PEPTIDE 561.7 pg/mL (0-100)
--- NOTE | 2020-10-11 22:17 | PCM.HP.STD ---
Problem List (1) CHF exacerbation Status: Acute Qualifiers: Heart failure type: systolic Qualified Code(s): I50.23 - Acute on chronic systolic (congestive) heart failure (2) Chronic systolic (congestive) heart failure Status: Chronic (3) Ischemic cardiomyopathy Status: Chronic (4) History of coronary artery stent placement Status: Chronic Comment: 06/28/2011 prior to PTCA and BMS (3.0 mm X 18 mm long Integrity stent) to mid LAD, BMS to the mid distal CX (4.5 X 16mm Veriflex stent), and BMS to the proximal CX (3.5 X 15 mm Integrity stent) @ [facility] (5) Atherosclerotic heart disease of [place] coronary artery without angina pectoris Status: Chronic Qualifiers: [place] vs. transplanted heart: [place] heart Qualified Code(s): I25.10 - Atherosclerotic heart disease of [place] coronary artery without angina pectoris Comment: 03/27/1993: RED to LAD (CABG X1 along with AVR, [facility]):06/28/2011 prior to PTCA and BMS to mid LAD, BMS to the mid distal CX, and BMS to the proximal CX @ [facility] (6) History of aortic valve replacement Status: Chronic Comment: 03/27/1993: RED to LAD and 23mm [facility] Rachid Mechanical AVR placed for severe per Dr. Darrell Shaw [facility] (7) S/P CABG x 1 Status: Chronic Comment: 03/27/1993: RED to LAD and 23mm St[facility] Rachid Prosthetic AVR placed for severe per Dr. Darrell Shaw [facility] (8) History of GI bleed Status: Chronic Comment: 08/09/2017 (9) COPD (chronic obstructive pulmonary disease) Status: Chronic Qualifiers: COPD type: unspecified COPD (10) Atrial fibrillation Status: Chronic Qualifiers: Atrial fibrillation type: paroxysmal Qualified Code(s): I48.0 - Paroxysmal atrial fibrillation (11) HLD (hyperlipidemia) Status: Chronic Qualifiers: Hyperlipidemia type: pure hypercholesterolemia Qualified Code(s): E78.00 - Pure hypercholesterolemia, unspecified; E78.0 - Pure hypercholesterolemia (12) HTN (hypertension) Status: Chronic Qualifiers: Hypertension type: essential hypertension Qualified Code(s): I10 - Essential (primary) hypertension (13) Spinal stenosis of lumbar region Status: Chronic Qualifiers: Neurogenic claudication status: unspecified Qualified Code(s): M48.061 - Spinal stenosis, lumbar region without neurogenic claudication (14) Tobacco use disorder Status: Chronic (15) Chronic pain syndrome Status: Chronic Comment: follows with pain Management, Dr. HERNANDEZ History of Present Illness Date of Admission: 10/11/20 Chief Complaint: Dyspnea, orthopnea, weight gain, BL LE worsened edema. The patient is a 80 y/o M w/ PMHx: Persistent AF, Ischemic Cardiomyopathy/Chronic Systolic CHF, Chronic COPD, HTN, HLD, CAD s/p CABG, Valvular Heart Disease s/p AVR (mechanical), Chronic thrombocytopenia, Chronic normocytic anemia/Fe deficiency anemia, Chronic pain syndrome, Tobacco use ongoing who presents to the [facility] ED on 10/11/20 with history of worsening dyspnea, worse with exertion, orthopnea, bilateral lower extremity pedal to near knee worsening edema and discomfort with palpation with pitting present as well as a approximate 9 pound weight gain over the last 1.5 weeks with more severe symptoms with the last to 3 days prompting eventual ED presentation. Patient denies any recent significant productive cough, wheezing or any associated chest pain. Work-up in the ED included T 97.7, heart rate 65, BP 146/73, respiratory rate 21, 96% on 2 L nasal cannula, CBC with WC 3.3, hemoglobin 12.7, platelet 129 with mild lymphopenia, coags with INR 1.9, CMP with chloride 112, glucose 110, alk phos 154, troponin less than 0.015, BNP 561.7, EKG with rate controlled atrial fibrillation with nonspecific changes with no acute evidence of ischemia, chest x-ray with increased interstitial opacities consistent with congestion/edema with trace right pleural effusion. In the ED patient administered 40 mg IV Lasix x1. Past Medical History Past Medical History (Chronic Problems): Chronic Problems (Last Reviewed 11/26/19 @ 13:35 by Laron Clay SKIN CARE THERAPIST, SKIN CARE THERAPIST-C) Intractable pain (Chronic) Trimalleolar fracture of ankle, closed (Chronic) Non-rheumatic tricuspid valve insufficiency (Chronic) Secondary pulmonary arterial hypertension (Chronic) Chronic systolic (congestive) heart failure (Chronic) Ischemic cardiomyopathy (Chronic) History of coronary artery stent placement (Chronic) 06/28/2011 prior to PTCA and BMS (3.0 mm X 18 mm long Integrity stent) to mid LAD, BMS to the mid distal CX (4.5 X 16mm Veriflex stent), and BMS to the proximal CX (3.5 X 15 mm Integrity stent) @ [facility] Atherosclerotic heart disease of [place] coronary artery without angina pectoris (Chronic) 03/27/1993: RED to LAD (CABG X1 along with AVR, [facility]):06/28/2011 prior to PTCA and BMS to mid LAD, BMS to the mid distal CX, and BMS to the proximal CX @ [facility] History of left heart catheterization (Chronic) 03/27/1993 [facility] prior to CABG X1 and AVR; 06/28/2011 prior to PTCA and BMS to mid LAD, BMS to the mid distal CX, and BMS to the proximal CX @ [facility] History of aortic valve replacement (Chronic) 03/27/1993: RED to LAD and 23mm St[facility] Rachid Mechanical AVR placed for severe per Dr. Darrell Shaw [facility] S/P CABG x 1 (Chronic) 03/27/1993: RED to LAD and 23mm St[facility] 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 HERNANDEZ Medical History: Medical History (Last Reviewed 11/26/19 @ 13:35 by Laron Clay SKIN CARE THERAPIST, SKIN CARE THERAPIST-C) Non-rheumatic tricuspid valve insufficiency (Chronic) I36.1 Secondary pulmonary arterial hypertension (Chronic) I27.21 Chronic systolic (congestive) heart failure (Chronic) I50.22 Ischemic cardiomyopathy (Chronic) I25.5 Atherosclerotic heart disease of [place] coronary artery without angina pectoris (Chronic) I25.10 03/27/1993: RED to LAD (CABG X1 along with AVR, [facility]):06/28/2011 prior to PTCA and BMS to mid LAD, BMS to the mid distal CX, and BMS to the proximal CX @ [facility]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 HERNANDEZ Uncontrolled pain (Inactive) R52 Allergies No Known Allergies Allergy (Verified 10/11/20 20:47) Home Medications: Ambulatory Orders Medication Instructions Recorded Rosuvastatin Calcium [Crestor] 40 mg PO QHS 07/15/13 Ferrous Sulfate 325 mg PO BIDCM 09/13/15 Albuterol Sulfate [Proair 1 puff INHALATION Q4H PRN PRN 09/25/15 Respiclick] Cholecalciferol (VIT D3) [Vitamin 2,000 unit PO DAILY 09/25/15 D3] Nitroglycerin (INPATIENT USE) 0.4 mg SUBLINGUAL Q5M PRN #30 tab 09/26/15 [Nitrostat] Aspirin E.C. [Ecotrin] 81 mg PO DAILY@0800 06/24/16 Folic Acid 1 mg PO QHS 06/24/16 Ipratropium/Albuterol Sulfate 3 ml INHALATION Q4H PRN PRN #30 11/02/16 [Duoneb] ampul.neb Budesonide/Formoterol 160/4.5 2 puff INHALATION BID 02/08/17 [Symbicort 160/4.5 Mcg Inhaler (SP)] Furosemide [Lasix] 40 mg PO DAILY 02/08/17 isosorbide mononitrate 30 mg 30 mg PO QAM 11/21/17 tablet,extended release 24 hr pantoprazole 40 mg tablet,delayed 40 mg PO BID tab 01/02/18 release warfarin 5 mg tablet 5 mg PO FULLER tab 01/02/18 warfarin 7.5 mg tablet 7.5 mg PO MOTUWETHFRSA tab 01/02/18 Zolpidem Tartrate [Ambien] 10 mg PO QHS 05/26/18 Pregabalin [Lyrica] 75 mg PO TID 07/28/18 metoprolol tartrate 25 mg tablet 12.5 mg PO BID tab 11/26/19 Surgical History: Surgical History (Last Reviewed 11/26/19 @ 13:35 by Laron Clay SKIN CARE THERAPIST, SKIN CARE THERAPIST-C) History of coronary artery stent placement (Chronic) Z95.5 06/28/2011 prior to PTCA and BMS (3.0 mm X 18 mm long Integrity stent) to mid LAD, BMS to the mid distal CX (4.5 X 16mm Veriflex stent), and BMS to the proximal CX (3.5 X 15 mm Integrity stent) @ [facility] History of left heart catheterization (Chronic) Z98.890 03/27/1993 [facility] prior to CABG X1 and AVR; 06/28/2011 prior to PTCA and BMS to mid LAD, BMS to the mid distal CX, and BMS to the proximal CX @ [facility] History of aortic valve replacement (Chronic) Z95.2 03/27/1993: RED to LAD and 23mm St[facility] Rachid Mechanical AVR placed for severe per Dr. Darrell Shaw, [facility] S/P CABG x 1 (Chronic) Z95.1 03/27/1993: RED to LAD and 23mm St. Rachid Prosthetic AVR placed for severe per Dr. Darrell Shaw, [facility] Surgical History: coronary bypass surgery, - - CABG x 1 with Mechanical aortic valve replacement (St. Rachid Mechanical valve) as well as PCI x 3, back surgeries, RLE ankle surgery. Psychiatric History: No pertinent psych hx Lives: Alone Smoking Status: Current every day smoker - Ongoing 3/4 ppd cigarette tobacco usage since youth. Tobacco Use: Cigarettes Alcohol: None Drugs: None - *Family History Maternal Family History: Family History (Last Reviewed 11/26/19 @ 13:35 by Laron Clay NP, SKIN CARE THERAPIST-C) Son CAD (coronary artery disease) Myocardial infarction Sudden cardiac Brother CAD (coronary artery disease) Sister CAD (coronary artery disease) History Items: Diabetes, Heart Disease, Hypertension Paternal Family History: Family History (Last Reviewed 11/26/19 @ 13:35 by Laron Clay SKIN CARE THERAPIST, SKIN CARE THERAPIST-C) Son CAD (coronary artery disease) Myocardial infarction Sudden cardiac Brother CAD (coronary artery disease) Sister CAD (coronary artery disease) History Items: Diabetes, Heart Disease, Hypertension Review of Systems Constitutional: Reports: Malaise, Weakness, Fatigue. Denies: Anorexia, Chills, Fever, Weight Change HEENT: Denies: Head Aches, Sinus Congestion, Sinus Drainage Cardiovascular: Reports: Edema, Orthopnea. Denies: Chest Pain, Palpitations Respiratory: Reports: Shortness of Breath, Shortness of breath at rest, Shortness of breath upon exertion. Denies: Cough, Sputum production, Wheezing Gastrointestinal: Denies: Abdominal Pain, Nausea, Vomiting Genitourinary: Denies: Dysuria Musculoskeletal: Reports: Back Pain, Joint Pain, Leg Pain. Denies: Joint Tenderness Skin: Denies: Rash, Wounds Neurological: Denies: Numbness, Tingling, Focal weakness Psychiatric: Denies: Anxiety, Depression, Homicidal Ideations, Suicidal Ideations Hematologic/ Lymphatic: Reports: Anemia, Easy Bruising, Easy Bleeding VTE Information - Inpt Only VTE Present on Admission: No VTE Mechan Device Prophylaxis: SCD's VTE Pharm Prophylaxis ordered?: No Reason prophylaxis not ordered:: Treatment Not Indicated - We will continue patient Coumadin with INR trending as noted. Patient Problems: Active and Suspected Problems (Last Reviewed 11/26/19 @ 13:35 by Laron Clya SKIN CARE THERAPIST, SKIN CARE THERAPIST-C) CHF exacerbation (Acute) Subjective: Patient seated upright in the ED bed, fatigued appearance, no obvious distress. Objective: Physical Examination: General: awake, alert, oriented x 3 and cooperative, seated upright in the ED bed in no apparent distress. Skin: normal color, turgor, no icterus, cyanosis except noted staged ecchymoses to the extremities as well as stasis disease to bilateral lower extremities. HEENT: AT/NC, EOMI, PERRLA, MMM, no carotid bruits, + JVD noted. Lungs: Diminished breath sounds, greater bases, bilateral mild rales worse at bases, no obvious ronchi or wheezing. Heart: Irregular, rate controlled; no gallop, rub audible, + SM. Abdomen: soft, NTTP, ND, normal BS, no HSM. Extremities: no cyanosis or clubbing, bilateral lower extremity stasis disease skin changes as well as pedal to proximal knee 3+ pitting edema. Neurological: patient awake, alert, oriented as noted; cognitive function intact; pupils equally reactive to light and accomodation; cranial nerves II-XII grossly normal, moving all 4 extremities, no focal deficits, strength moderately to severely global decrease secondary to acute presentation. Psychiatric: affect appears fatigued, no acute evidence of depressive or anxiety feelings. - Physical Exam Vitals/I&O's: Vital Signs Temp Pulse Resp BP Pulse Ox 97.7 F L 51 L 16 136/67 H 96 10/11/20 22:01 10/11/20 22:01 10/11/20 22:01 10/11/20 22:01 10/11/20 22:01 Oxygen Flow Rate (L/min) 2 Oxygen Delivery Method Nasal Cannula Weight: 192 lb 14.472 oz Body Mass Index (BMI) 27.6 Laboratory Results 10/11/20 20:53: WBC 3.3 L, RBC 4.12 L, Hgb 12.7 L, Hct 40.4, MCV 98.1 H, MCH 30.8, MCHC 31.4 L, RDW Std Deviation 57.6 H, RDW Coeff of [place] 16.1 H, Plt Count 129 L, MPV 10.2, Immature Gran % (Auto) 0.600, Neut % (Auto) 71.4 H, Lymph % (Auto) 16.0 L, [place] % (Auto) 8.4, Eos % (Auto) 2.4, Baso % (Auto) 1.2 H, Absolute Neuts (auto) 2.4, Absolute Lymphs (auto) 0.53 L, Nucleated RBC % 0, Differential Comment SCANNED, Diff Path Review November10/11/20 20:53: PT 21.1 H, INR 1.9 10/11/20 20:53: Sodium 143, Potassium 4.0, Chloride 112 H, Carbon Dioxide 26.0, Anion Gap 5, BUN 16, Creatinine 1.12, Estim Creat Clear Calc 52.50, Est GFR (MDRD) Af Amer 81, Est GFR (MDRD) Non-Af 67, BUN/Creatinine Ratio 14.3, Glucose 110 H, Calcium 8.6, Total Bilirubin 0.90, Direct Bilirubin 0.25, AST 34, ALT 36, Alkaline Phosphatase 154 H, Troponin I < 0.015, Total Protein 6.6, Albumin 3.5, Globulin 3.1 10/11/20 20:53: B-Natriuretic Peptide 561.7 H Assessment/Plan All Active Problems (Last Reviewed 11/26/19 @ 13:35 by Laron Clay SKIN CARE THERAPIST, SKIN CARE THERAPIST-C) Closed left ankle fracture (Acute) Left ankle pain (Acute) Risk for falls (Acute) Cellulitis of leg, left (Acute) CHF exacerbation (Acute) GI bleed (Resolved) [place] (acute kidney injury) (Resolved) Acute exacerbation of chronic obstructive pulmonary disease (Resolved) Bradycardia (Resolved) COPD with acute exacerbation (Resolved) Gram-negative pneumonia (Resolved) History of colonoscopy (Resolved) History of endoscopy (Resolved) Hypotension (Resolved) Hypoxia (Resolved) Subconjunctival hematoma (Resolved) The patient is a 80 y/o M w/ PMHx: Persistent AF, Ischemic Cardiomyopathy/Chronic Systolic CHF, Chronic COPD, HTN, HLD, CAD s/p CABG, Valvular Heart Disease s/p AVR (mechanical), Chronic thrombocytopenia, Chronic anemia, Chronic pain syndrome, Tobacco use who presents to the [facility] ED on 10/11/20 with history of worsening dyspnea, worse with exertion, orthopnea, bilateral lower extremity pedal to near knee worsening edema and discomfort with palpation with pitting present as well as a approximate 9 pound weight gain over the last 1.5 weeks. 1. Acute Systolic CHF Exacerbation/Ischemic Cardiomyopathy: We will admit to the PCU, maintain on telemetry monitoring, will cycle cardiac enzymes and repeat EKGs as needed, continue IV Lasix diuresis initiated in the emergency room with initial dose x1, will obtain magnesium level with supplementation as needed, obtain TSH level, continue aspirin, Coumadin with INR trending, metoprolol, statin therapy, not on NIC inhibitor/ARB, given last echocardiogram noted 04/2019 will request repeat, will maintain on fluid restriction, snug Nic wraps to bilateral lower extremities with elevation, PT and OT assessments as well as Case management for discharge planning, nutrition consultation for education and teaching for appropriate diet with patient comorbidities. 2. Persistent atrial fibrillation: EKG with rate controlled atrial fibrillation upon ED presentation with no acute evidence of ischemia, will continue Coumadin with INR trending, 1.9 upon presentation, therefore will give additional dose and monitor repeat INR in a.m., home regimen may require alteration, continue metoprolol regimen. 3. CAD: Status post CABG x 1 (RED to LAD 03/1993) as well as PCI (angioplasty and bare-metal stenting mid a LAD and left circumflex 06/2011, bare-metal stenting left circumflex 02/2013), continue aspirin, Coumadin with INR trending with additional dose x1 as noted and home regimen may require alteration, statin, metoprolol regimen, per current list not on NIC inhibitor/ARB. 04/04/2018 stress test noted to be normal, adequate dobutamine echocardiogram negative for ischemia by EKG and echocardiographic criteria with noted frequent PACs and rare PVCs. Patient also with baseline mid anterior septal and apical hypokinesis from prior MIs with all remaining wall contractility normal with final LVEF 55%. 4. Valvular heart disease: Patient at the same time is CABG x 1 had mechanical aortic valve secondary to severe , 04/27/2019 echo with moderately dilated LV, EF 45 to 50%, stage II diastolic dysfunction, moderately dilated RV, mildly enlarged LA, mild TVI, RVSP 36 mmHg, stable appearing and normally functioning bioprosthetic AV apparatus, improved from 2017 with LV function the same with reduction in RVSP. Continue Coumadin with INR assessments, will give additional dose upon presentation given INR 1.9, chronic regimen may require alterations. 5. Hypertension: Continue home regimen including metoprolol, isosorbide, IV Lasix as noted, PRN hydralazine. 6. Hyperlipidemia: Continue home statin regimen. AM FLP. 7. Chronic COPD: Will maintain on oxygen with wean as tolerated, hold home inhalers and will continue ATC duonebs, PRN albuterol, HOB, IS parameters. 8. Chronic normocytic anemia, Fe deficiency: Admission hemoglobin 12.7, baseline appears 10-12 range, stable, continue to trend, continue patient on iron supplementation. 9. Chronic thrombocytopenia: Admission platelets 129, similar to prior, continue to trend. 10. Tobacco Abuse: Encouraged cessation, inpatient consultation per RT, NR if desired. 11. GERD: We will continue patient home PPI. 12. History of GI bleed: We will continue patient twice daily high-dose PPI. 13. DVT prophylaxis: SCDs, Coumadin with continued INR trending, admission INR 1.9, will give additional 5 mg dose in addition to home regimen and repeat INR in a.m., chronic regimen may require alterations. 14. CODE status: Patient YONATAN is his daughter Emily Montejo who is present and living will is currently in place. Discussed CODE status at length including difference between FULL code, DNR-CCA and DNR-CC status. Following discussions about the differences in these status, requested Full Code status. Advanced Care Planning Face to Face Time: 16 minutes. Inpatient E&M: 15771 Init Hosp L3 Procedures: 83283 Advncd Care Plan 30 Min
--- NOTE | 2020-10-11 22:43 | ECHOCS_ITS ---
Reason For Study: CHF Procedure This was a 2D Doppler, Color Flow transthoracic echocardiogram. The study was technically difficult. Contrast injection was performed. Exam performed portable in patient room. Left Ventricle Normal LV size. Left ventricular systolic function is normal. The estimated ejection fraction is 45 %. Right Ventricle Normal RV size. Normal systolic function. Atria The left atrium is mildly enlarged. Normal right atrium. Mitral Valve There is moderate to severe mitral annular calcification. Tricuspid Valve Normal tricuspid valve. Mild (1+) tricuspid valve insufficiency. Pulmonary artery systolic pressure is 40 mmHg. Aortic Valve Peak aortic valve gradient 33 mmHg. Mean aortic valve gradient 20 mmHg. Bioprosthetic aortic valve. Pulmonic Valve Normal pulmonic valve. Great Vessels Normal aortic root. The pulmonary artery is normal size. Normal inferior vena cava. Pericardium/Pleural No pericardial effusion. Medication Diluted definity 3.5ml given slow IV push to enhance endocardial definition. MMode/2D Measurements & Calculations LVIDd: 5.2 cm IVSd: 1.0 cm LVOT diam: 2.0 cm LVIDs: 3.4 cm LVPWd: 1.0 cm RVDd: 3.9 cm FS: 34.9 % LVOT area: 3.2 cm2 Ao root diam: 3.2 cm LAV(MOD-bp): 68.6 ml LVAd ap4: 28.9 cm2 LAV(MOD-bp) Indexed: 35.3 ml/m2 EDV(MOD-sp4): 92.0 ml LAV(MOD-sp2): 53.0 ml EDV(sp4-el): 94.0 ml LAV(MOD-sp4): 77.7 ml LVAs ap4: 16.8 cm2 ESV(MOD-sp4): 39.3 ml ESV(sp4-el): 37.2 ml EF(MOD-sp4): 57.3 % EF(sp4-el): 60.4 % SV(MOD-sp4): 52.7 ml SV(sp4-el): 56.8 ml LA A4 area: 23.4 cm2 LA dimension(2D): 4.1 cm RA A4 area: 21.3 cm2 Time Measurements MV dec time: 0.20 sec Doppler Measurements & Calculations MV E max vega: 94.1 cm/sec Med Peak E' [place]: 5.9 cm/sec Ao V2 max: 285.4 cm/sec MV A max vega: 109.7 cm/sec E/E' med: 15.9 Ao max P.8 mmHg MV E/A: 0.86 Ao V2 mean: 204.3 cm/sec Ao mean P.7 mmHg Ao V2 VTI: 57.5 cm MATTEO(I,D): 1.4 cm2 MATTEO(V,D): 0.88 cm2 LV V1 max: 78.2 cm/sec SV(LVOT): 81.0 ml PA V2 max: 127.9 cm/sec LV V1 max P.0 mmHg LV V1 mean P.4 mmHg LV V1 mean: 72.9 cm/sec LV V1 VTI: 25.1 cm TR max vega: 298.7 cm/sec TR max P.7 mmHg ECHO/Echo Complete W/ Contrast Interpretation Summary Normal LV size. Left ventricular systolic function is normal. The estimated ejection fraction is 45 %. Mean aortic valve gradient 20 mmHg. Bioprosthetic aortic valve. Compared to prior study, there is no significant change. Ordering Physician: Chichi Tejada Referring Physician: BLOSSOM RIOS Performed By: Rebecca Marlow, MARIE, RVT
[2020-10-11 22:53] LABS: Magnesium 2.3 mg/dL (1.6-2.6)
[2020-10-11] MEDS: Ipratropium/Albuterol Sulfate 3 ML AMPUL.NEB INHALATION (23:51)
[2020-10-12] VITALS (17 sets, daily range): BP systolic 107–147; BP diastolic 53–71; PULSE 39–75; RESP 9–20; TEMP 36.2–37; O2SAT 94–97
[2020-10-12 03:01] LABS: Absolute Lymphocyte Count 0.58 X10^3/uL (0.83-4.51); Absolute Neutrophil Count 2.6 X10^3/uL (2.0-7.7); Basophil# 0.04 X10^3/uL; Basophil% 1.1 % (0-1); Eosinophil# 0.08 X10^3/uL; Eosinophils% 2.2 % (0-5); Hematocrit 41.4 % (40-54); Hemoglobin 12.7 g/dL (13.0-16.5); Lymphocyte # 0.58 X10^3/ul (4.0); Lymphocyte % 16.1 % (19-41); Mean Corp Hgb Conc 30.7 g/dL (32-36); Mean Corpuscular Volume 97.6 fL (80-94); Mean Platelet Vol. 10.5 fl (6.2-12.0); Monocyte# 0.31 X10^3/uL; Monocyte% 8.6 % (0-10); NRBC Flagged by Analyzer 0 % (0-5); Neutrophil # 2.59 X10^3/uL (2.7-7.7); Neutrophil % 71.7 % (47-70); POSITIVE DIFFERENTIAL YES; Platelet Count 132 K/mm3 (150-450); RBC Distribution Width SD 57.6 fl (35.1-43.9); Red Blood Count 4.24 M/mm3 (4.6-6.2); White Blood Count 3.6 K/mm3 (4.4-11.0)
[2020-10-12 03:07] LABS: Differential Indicated SCAN CRITERIA MET
[2020-10-12 03:12] LABS: Prothrombin Time (Protime)PT. 21.5 SECONDS (11.7-14.9)
[2020-10-12 03:31] LABS: ALB/GLOB Ratio 1.1 RATIO (0.9-2.4); AST(SGOT) 31 U/L (15-37); Alanine Aminotransfer ALT/SGPT 35 U/L (16-61); Albumin, Serum 3.5 g/dL (3.2-5.0); Alkaline Phosphatase 147 U/L (45-117); Anion Gap 4 (5-15); BUN 17 mg/dL (7-18); BUN/Creat Ratio 15.6 RATIO (10-20); Calcium,Total 8.6 mg/dL (8.5-10.1); Chloride 109 mmol/L (98-107); Cholesterol 210 mg/dL (200); Creatinine, Serum 1.09 mg/dL (0.70-1.30); EST Glomerular Filtration Rate 69 mL/min (>60); Est Glom Filt Rate - Afr Amer 83 mL/min (>60); Estimated Creatinine Clearance 53.95 ml/min; Globulin 3.1 g/dL (2.2-4.2); Glucose 110 mg/dL (74-106); High Density Lipoprotein 49 mg/dL; Protein, Total 6.6 g/dL (6.4-8.2); Sodium Level 142 mmol/L (136-145); Thyroid Stim Hormone (TSH) 1.78 uIU/mL (0.358-3.74); Triglycerides 110 mg/dL; Very Low Density Lipoprotein 22 mg/dL (5-40)
[2020-10-12 03:37] LABS: Differential Comment SCANNED
[2020-10-12] MEDS: Pregabalin 75 MG Capsule PO ×3 (04:51→20:19)
[2020-10-12] MEDS: Ipratropium/Albuterol Sulfate 3 ML AMPUL.NEB INHALATION ×3 (06:54→19:41)
[2020-10-12] MEDS: Aspirin E.C. 81 MG Tablet PO (08:06)
[2020-10-12] MEDS: Pantoprazole Sodium 40 MG Tablet PO ×2 (08:06→20:19)
[2020-10-12] MEDS: Ferrous Sulfate 325 MG Tablet PO ×2 (08:07→17:15)
[2020-10-12] MEDS: Metoprolol Tartrate 25 MG Tablet 12.5 MG PO (09:27)
[2020-10-12] MEDS: Furosemide 40 MG/4 ML Vial IV ×2 (09:28→17:15)
[2020-10-12] MEDS: Isosorbide Mononitrate 30 MG Tablet PO (09:28)
[2020-10-12] MEDS: 0.9% Saline Lock 10 ML Syringe IV ×3 (09:30→17:15)
--- NOTE | 2020-10-12 11:32 | PCM.PROGNOTE ---
Patient Problems: Active and Suspected Problems (Last Reviewed 11/26/19 @ 13:35 by Laron Clay PROMOTION MANAGER, PROMOTION MANAGER-C) CHF exacerbation (Acute) Subjective: Patient seen and examined. Reports breathing and lower extremity swelling improved. States he has been using his inhalers frequently at home. Denies cough, fever, chills. - Physical Exam Vitals/I&O's: Vital Signs Temp Pulse Resp BP Pulse Ox 98.4 F 58 L 18 147/71 H 94 10/12/20 08:03 10/12/20 09:27 10/12/20 08:03 10/12/20 09:27 10/12/20 08:03 Oxygen Flow Rate (L/min) 2 Oxygen Delivery Method Nasal Cannula Weight: 178 lb 9.191 oz Body Mass Index (BMI) 25.4 Intake and Output for Last 24 Hours 10/10/20 10/11/20 10/12/20 23:59 23:59 23:59 Intake Total 120 / 120 Output Total 300 / 300 1850 / 1850 Balance -300 / -300 -1730 / -1730 General: Alert, Oriented x3, Cooperative HEENT: Atraumatic, PERRLA, EOMI, Normocephalic Neck: Supple, No JVD, Negative Carotid Bruits Lungs: Diminished, Wheezes, - - Rales bases Cardiovascular: Bradycardic, Murmur Abdomen: Bowel Sounds Present, Soft, Non Tender, Non-Distended Extremities: No clubbing, No cyanosis, Edema - Bilateral lower extremities, Nic wraps in place Skin: No rashes, No breakdown Musculoskeletal: No Tenderness to Palpation of Joints or Extremities Neurological: Cranial nerves II-XII grossly intact, Neuro grossly intact Psych/Mental Status: Normal Affect, Appropriate Laboratory Results 10/11/20 11:45: Troponin I < 0.015 10/11/20 20:53: WBC 3.3 L, RBC 4.12 L, Hgb 12.7 L, Hct 40.4, MCV 98.1 H, MCH 30.8, MCHC 31.4 L, RDW Std Deviation 57.6 H, RDW Coeff of [place] 16.1 H, Plt Count 129 L, MPV 10.2, Immature Gran % (Auto) 0.600, Neut % (Auto) 71.4 H, Lymph % (Auto) 16.0 L, [place] % (Auto) 8.4, Eos % (Auto) 2.4, Baso % (Auto) 1.2 H, Absolute Neuts (auto) 2.4, Absolute Lymphs (auto) 0.53 L, Nucleated RBC % 0, Differential Comment SCANNED, Diff Path Review November [facility] 10/11/20 20:53: PT 21.1 H, INR 1.9 10/11/20 20:53: Sodium 143, Potassium 4.0, Chloride 112 H, Carbon Dioxide 26.0, Anion Gap 5, BUN 16, Creatinine 1.12, Estim Creat Clear Calc 52.50, Est GFR (MDRD) Af Amer 81, Est GFR (MDRD) Non-Af 67, BUN/Creatinine Ratio 14.3, Glucose 110 H, Calcium 8.6, Total Bilirubin 0.90, Direct Bilirubin 0.25, AST 34, ALT 36, Alkaline Phosphatase 154 H, Troponin I < 0.015, Total Protein 6.6, Albumin 3.5, Globulin 3.1 10/11/20 20:53: B-Natriuretic Peptide 561.7 H 10/11/20 20:53: Magnesium 2.3 10/12/20 02:53: WBC 3.6 L, RBC 4.24 L, Hgb 12.7 L, Hct 41.4, MCV 97.6 H, MCH 30.0, MCHC 30.7 L, RDW Std Deviation 57.6 H, RDW Coeff of [place] 16.0 H, Plt Count 132 L, MPV 10.5, Immature Gran % (Auto) 0.300, Neut % (Auto) 71.7 H, Lymph % (Auto) 16.1 L, [place] % (Auto) 8.6, Eos % (Auto) 2.2, Baso % (Auto) 1.1 H, Absolute Neuts (auto) 2.6, Absolute Lymphs (auto) 0.58 L, Nucleated RBC % 0, Differential Comment SCANNED, Diff Path Review November [facility] 10/12/20 02:53: PT 21.5 H, INR 2.0 10/12/20 02:53: Sodium 142, Potassium 4.0, Chloride 109 H, Carbon Dioxide 29.0, Anion Gap 4 L, BUN 17, Creatinine 1.09, Estim Creat Clear Calc 53.95, Est GFR (MDRD) Af Amer 83, Est GFR (MDRD) Non-Af 69, BUN/Creatinine Ratio 15.6, Glucose 110 H, Calcium 8.6, Total Bilirubin 1.00, AST 31, ALT 35, Alkaline Phosphatase 147 H, Total Protein 6.6, Albumin 3.5, Globulin 3.1, Albumin/Globulin Ratio 1.1, Triglycerides 110, Cholesterol 210 H, LDL Cholesterol 139 H, VLDL Cholesterol 22, HDL Cholesterol 49, TSH 1.78 10/12/20 02:53: Troponin I < 0.015 Current Medications Acetaminophen (Acetaminophen 325 Mg Tablet) 650 mg PO Q6H PRN PRN PRN Reason: Pain Score 1-10/Temp > 100.7 F Albuterol Sulfate (Albuterol 2.5 Mg/3 Ml Vial.Neb.) 2.5 mg INHALATION Q2H PRN PRN PRN Reason: Dyspnea, wheezing Albuterol/Ipratropium (Ipratropium/Albuterol Sulfate 3 Ml Ampul.Neb) 3 ml INHALATION Q6HWA.RT [facility] Last Admin: 10/12/20 06:54 Dose: 3 ml Documented by: Aspirin (Aspirin E.C. 81 Mg Tablet) 81 mg PO DAILY@0800 [facility] Last Admin: 10/12/20 08:06 Dose: 81 mg Documented by: Atorvastatin Calcium (Atorvastatin Calcium 80 Mg Tablet) 80 mg PO QHS [facility] Ferrous Sulfate (Ferrous Sulfate 325 Mg Tablet) 325 mg PO BIDCM [facility] Last Admin: 10/12/20 08:07 Dose: 325 mg Documented by: Folic Acid (Folic Acid 1 Mg Tablet) 1 mg PO QHS [facility] Furosemide (Furosemide 40 Mg/4 Ml Vial) 40 mg IV BID@1000,1800 [facility] Last Admin: 10/12/20 09:28 Dose: 40 mg Documented by: Sodium Chloride () 250 mls @ 15 mls/hr IV .[id number] PRN PRN Reason: Saline Flush Isosorbide Mononitrate (Isosorbide Mononitrate 30 Mg Tablet) 30 mg PO QAM [facility] Last Admin: 10/12/20 09:28 Dose: 30 mg Documented by: Methylprednisolone (Methylprednisolone 40 Mg/Ml Vial) 20 mg IV Q8 [facility] Metoprolol Tartrate (Metoprolol Tartrate 25 Mg Tablet) 12.5 mg PO BID [facility] Last Admin: 10/12/20 09:27 Dose: 12.5 mg Documented by: Ondansetron HCl (Ondansetron 4 Mg/2 Ml Vial) 4 mg IV Q8H PRN PRN PRN Reason: NAUSEA/VOMITING Oxycodone HCl (Oxycodone 5 Mg Tablet) 5 mg PO Q4H PRN PRN PRN Reason: Pain Score 4-5 Pantoprazole Sodium (Pantoprazole Sodium 40 Mg Tablet) 40 mg PO BID [facility] Last Admin: 10/12/20 08:06 Dose: 40 mg Documented by: Pregabalin (Pregabalin 75 Mg Capsule) 75 mg PO TID [facility] Last Admin: 10/12/20 04:51 Dose: 75 mg Documented by: Senna/Docusate Sodium (Senna/Docusate Sodium 1 Tablet) 2 tablet PO BID PRN PRN PRN Reason: Constipation Sodium Chloride (0.9% Saline Lock 10 Ml Syringe) 10 - 40 ml IV UD PRN PRN Reason: SALINE FLUSH Last Admin: 10/12/20 09:30 Dose: 10 ml Documented by: Warfarin Sodium (Warfarin 5 Mg Tablet) 5 mg PO Anand@1700 [facility] Warfarin Sodium (Warfarin 7.5 Mg Tablet) 7.5 mg PO MoTuWeThFrSa@1700 [facility] Zolpidem Tartrate (Zolpidem Tartrate 5 Mg Tablet) 5 mg PO QHS [facility] Medical Necessity - Tobacco Use Smoking Status: Current every day smoker Tobacco Use: Cigarettes Assessment/Plan All Active Problems (Last Reviewed 11/26/19 @ 13:35 by Laron Clay PROMOTION MANAGER, PROMOTION MANAGER-C) Closed left ankle fracture (Acute) Left ankle pain (Acute) Risk for falls (Acute) Cellulitis of leg, left (Acute) CHF exacerbation (Acute) GI bleed (Resolved) SALVADOR (acute kidney injury) (Resolved) Acute exacerbation of chronic obstructive pulmonary disease (Resolved) Bradycardia (Resolved) COPD with acute exacerbation (Resolved) Gram-negative pneumonia (Resolved) History of colonoscopy (Resolved) History of endoscopy (Resolved) Hypotension (Resolved) Hypoxia (Resolved) Subconjunctival hematoma (Resolved) 1. Acute on chronic heart failure with reduced ejection fraction/ischemic cardiomyopathy-chest x-ray consistent with congestion. BNP 561. Patient is a poor informant however states he does not wear oxygen at home. IV Lasix. Strict I&O. Daily weight. Continue supplement oxygen to maintain O2 at above 90%. Patient not noted to be hypoxic, wean oxygen as tolerated. Echocardiogram April 2019 demonstrated an EF of 45 to 50%, stage II diastolic dysfunction, mild tricuspid valve insufficiency, RVSP estimated to be 36 mmHg. Repeat echo ordered. 2. COPD exacerbation-patient with significant wheezing on exam. IV Solu-Medrol. Albuterol and DuoNeb aerosols. 3. Persistent atrial fibrillation-currently sinus bradycardia. On metoprolol, Coumadin. 4. CAD with history of CABG-continue aspirin, isosorbide, metoprolol, statin. 5. 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 6. Hypertension-stable, continue isosorbide, metoprolol. 7. Hyperlipidemia-continue statin. 8. Chronic normocytic anemia/iron deficiency anemia/chronic thrombocytopenia-history of GI bleed. Stable, trend CBC. Continue PPI. 9. Tobacco dependence-encouraged cessation. 10. GERD-continue PPI. DVT prophylaxis-Coumadin This patient was seen by AJMES Luciano under the supervision of Dr. Nichole.
[2020-10-12] MEDS: Folic Acid 1 MG Tablet PO (20:19)
[2020-10-12] MEDS: Zolpidem Tartrate 5 MG Tablet PO (20:19)
[2020-10-12] MEDS: Atorvastatin Calcium 80 MG Tablet PO (20:19)
[2020-10-13] VITALS (9 sets, daily range): BP systolic 103–130; BP diastolic 56–67; PULSE 70–77; RESP 12–18; TEMP 36.4–36.8; O2SAT 92–96
[2020-10-13 05:25] LABS: Hematocrit 43.7 % (40-54); Hemoglobin 13.6 g/dL (13.0-16.5); Mean Corp Hgb Conc 31.1 g/dL (32-36); Mean Corpuscular Volume 96.5 fL (80-94); Mean Platelet Vol. 10.5 fl (6.2-12.0); Platelet Count 134 K/mm3 (150-450); RBC Distribution Width CV 15.9 % (11.6-14.6); RBC Distribution Width SD 56.3 fl (35.1-43.9); Red Blood Count 4.53 M/mm3 (4.6-6.2); White Blood Count 5.2 K/mm3 (4.4-11.0)
[2020-10-13 05:32] LABS: International Normalized Ratio 1.8; Prothrombin Time (Protime)PT. 20.3 SECONDS (11.7-14.9)
[2020-10-13 05:38] LABS: Anion Gap 5 (5-15); BUN 23 mg/dL (7-18); BUN/Creat Ratio 20.5 RATIO (10-20); Chloride 106 mmol/L (98-107); Creatinine, Serum 1.12 mg/dL (0.70-1.30); EST Glomerular Filtration Rate 67 mL/min (>60); Est Glom Filt Rate - Afr Amer 81 mL/min (>60); Glucose 154 mg/dL (74-106); Potassium 3.9 mmol/L (3.5-5.1); Sodium Level 140 mmol/L (136-145)
[2020-10-13] MEDS: Pregabalin 75 MG Capsule PO (06:29)
[2020-10-13] MEDS: Ipratropium/Albuterol Sulfate 3 ML AMPUL.NEB INHALATION (07:00)
[2020-10-13] MEDS: Isosorbide Mononitrate 30 MG Tablet PO (08:06)
[2020-10-13] MEDS: Pantoprazole Sodium 40 MG Tablet PO (08:06)
[2020-10-13] MEDS: Aspirin E.C. 81 MG Tablet PO (08:06)
[2020-10-13] MEDS: Metoprolol Tartrate 25 MG Tablet 12.5 MG PO (08:06)
[2020-10-13] MEDS: Ferrous Sulfate 325 MG Tablet PO (08:06)
[2020-10-13] MEDS: Furosemide 40 MG/4 ML Vial IV (09:43)
[2020-10-13] MEDS: 0.9% Saline Lock 10 ML Syringe IV (09:43)
--- NOTE | 2020-10-13 09:59 | PCM.DC ---
- Discharge Diagnoses Current Active Problems: Current Active and Chronic Problems (Last Reviewed 11/26/19 @ 13:35 by Laron Clay SALES DESIGNER, SALES DESIGNER-C) CHF exacerbation (Acute) Secondary pulmonary arterial hypertension (Chronic) Chronic systolic (congestive) heart failure (Chronic) Ischemic cardiomyopathy (Chronic) History of coronary artery stent placement (Chronic) 06/28/2011 prior to PTCA and BMS (3.0 mm X 18 mm long Integrity stent) to mid LAD, BMS to the mid distal CX (4.5 X 16mm Veriflex stent), and BMS to the proximal CX (3.5 X 15 mm Integrity stent) @ [facility] Atherosclerotic heart disease of [place] coronary artery without angina pectoris (Chronic) 03/27/1993: RED to LAD (CABG X1 along with AVR, [facility]):06/28/2011 prior to PTCA and BMS to mid LAD, BMS to the mid distal CX, and BMS to the proximal CX @ [facility] History of aortic valve replacement (Chronic) 03/27/1993: RED to LAD and 23mm [facility] Mechanical AVR placed for severe per Dr. Darrell Shaw, [facility] S/P CABG x 1 (Chronic) 03/27/1993: RED to LAD and 23mm [facility] Rach[facility] Prosthetic AVR placed for severe per Dr. Darrell Shaw [facility] History of GI bleed (Chronic) 08/09/2017 COPD (chronic obstructive pulmonary disease) (Chronic) Atrial fibrillation (Chronic) HLD (hyperlipidemia) (Chronic) HTN (hypertension) (Chronic) Spinal stenosis of lumbar region (Chronic) Tobacco use disorder (Chronic) Chronic pain syndrome (Chronic) follows with pain Management, Dr. HERNANDEZ You will use the following diet at home:: Cardiac Discharge Activity: Return to Normal Activity Call your doctor if you observe: Shortness of breath, Dizziness, Fainting spells, Chest pain Allergies/Adverse Reactions: Allergies No Known Allergies Allergy (Verified 10/11/20 20:47) Medications to take at Discharge Rosuvastatin Calcium [Crestor] 40 mg PO QHS 07/15/13 Ferrous Sulfate 325 mg PO BIDCM 09/13/15 Albuterol Sulfate [Proair Respiclick] 1 puff INHALATION Q4H PRN PRN 09/25/15 Cholecalciferol (VIT D3) [Vitamin D3] 2,000 unit PO DAILY 09/25/15 Nitroglycerin (INPATIENT USE) [Nitrostat] 0.4 mg SUBLINGUAL Q5M PRN #30 tab 09/26/15 Aspirin E.C. [Ecotrin] 81 mg PO DAILY@0800 06/24/16 Folic Acid 1 mg PO QHS 06/24/16 Ipratropium/Albuterol Sulfate [Duoneb] 3 ml INHALATION Q4H PRN PRN #30 ampul.neb 11/02/16 Budesonide/Formoterol 160/4.5 [Symbicort 160/4.5 Mcg Inhaler (SP)] 2 puff INHALATION BID 02/08/17 isosorbide mononitrate 30 mg tablet,extended release 24 hr 30 mg PO QAM 11/21/17 pantoprazole 40 mg tablet,delayed release 40 mg PO BID tab 01/02/18 warfarin 5 mg tablet 5 mg PO FULLER tab 01/02/18 warfarin 7.5 mg tablet 7.5 mg PO MOTUWETHFRSA tab 01/02/18 Zolpidem Tartrate [Ambien] 10 mg PO QHS 05/26/18 Pregabalin [Lyrica] 75 mg PO TID 07/28/18 metoprolol tartrate 25 mg tablet 12.5 mg PO BID tab 11/26/19 Furosemide [Lasix] 40 mg PO BID #30 tablet 10/13/20 Prednisone See Taper PO DAILY #30 tablet 10/13/20 The following prescriptions were given: Furosemide [Lasix] 40 mg PO BID #30 tablet Transmission Status: Pending to [facility] Prednisone See Taper PO DAILY #30 tablet Transmission Status: Pending to [facility] Primary Care Physician: Guillermo Pritchard MD [Primary Care Provider] - Please follow up with your Primary Care Physician in: 1 Week Test Results: Test results from this visit will be discussed in further detail at your follow-up appointment, if applicable. Please Follow Up With: Laron Clay NP, SALES DESIGNER-C When: 1 Week Proposed Discharge Date: 10/13/20
--- NOTE | 2020-10-13 10:00 | PCM.DC.SUM ---
<Roopa Benavidez OPERATIONS ADMINISTRATIVE ASSISTANT - Last Filed: 10/13/20 10:21> Discharge Date and Diagnosis - Problem List Patient Problems: Active and Suspected Problems (Last Reviewed 11/26/19 @ 13:35 by Laron Clay OPERATIONS ADMINISTRATIVE ASSISTANT, OPERATIONS ADMINISTRATIVE ASSISTANT-C) CHF exacerbation (Acute) Date of Admission: 10/11/20 Date of Discharge: 10/13/20 - Primary Discharge Diagnosis Acute Problems: Active Problems (Last Reviewed 11/26/19 @ 13:35 by Laron Clay OPERATIONS ADMINISTRATIVE ASSISTANT, OPERATIONS ADMINISTRATIVE ASSISTANT-C) 1. Acute on chronic heart failure with reduced ejection fraction/ischemic cardiomyopathy 2. COPD exacerbation 3. Persistent atrial fibrillation 4. CAD with history of CABG 5. 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 Hypertension 7. Hyperlipidemia 8. Chronic normocytic anemia/iron deficiency anemia/chronic thrombocytopenia 9. Tobacco dependence 10. GERD - Secondary Discharge Diagnosis Chronic Problems: Chronic Problems (Last Reviewed 11/26/19 @ 13:35 by Laron Clay OPERATIONS ADMINISTRATIVE ASSISTANT, OPERATIONS ADMINISTRATIVE ASSISTANT-C) Intractable pain (Chronic) Trimalleolar fracture of ankle, closed (Chronic) Non-rheumatic tricuspid valve insufficiency (Chronic) Secondary pulmonary arterial hypertension (Chronic) Chronic systolic (congestive) heart failure (Chronic) Ischemic cardiomyopathy (Chronic) History of coronary artery stent placement (Chronic) 06/28/2011 prior to PTCA and BMS (3.0 mm X 18 mm long Integrity stent) to mid LAD, BMS to the mid distal CX (4.5 X 16mm Veriflex stent), and BMS to the proximal CX (3.5 X 15 mm Integrity stent) @ [facility] Atherosclerotic heart disease of [place] coronary artery without angina pectoris (Chronic) 03/27/1993: RED to LAD (CABG X1 along with AVR, [facility]):06/28/2011 prior to PTCA and BMS to mid LAD, BMS to the mid distal CX, and BMS to the proximal CX @ [facility] History of left heart catheterization (Chronic) 03/27/1993 [facility] prior to CABG X1 and AVR; 06/28/2011 prior to PTCA and BMS to mid LAD, BMS to the mid distal CX, and BMS to the proximal CX @ [facility] History of aortic valve replacement (Chronic) 03/27/1993: RED to LAD and 23mm [facility] Rachid Mechanical AVR placed for severe per Dr. Darrell Shaw, [facility] S/P CABG x 1 (Chronic) 03/27/1993: RED to LAD and 23mm St. Rachid Prosthetic AVR placed for severe per Dr. Darrell Shaw [facility] alf current use of anticoagulant (Chronic) History of GI bleed (Chronic) 08/09/2017 COPD (chronic obstructive pulmonary disease) (Chronic) Atrial fibrillation (Chronic) Anemia due to chronic blood loss (Chronic) Chronic airway obstruction (Chronic) HLD (hyperlipidemia) (Chronic) HTN (hypertension) (Chronic) Spinal stenosis of lumbar region (Chronic) Tobacco use disorder (Chronic) Chronic pain syndrome (Chronic) follows with pain Management, Dr. HERNANDEZ [facility] Course and Treatment Imaging Results: Diagnostic Data Chest X-Ray 10/11/20 21:05 IMPRESSION: Increased interstitial opacities, mostly in the lung bases may represent edema and/or infection. Trace right pleural effusion. Electronically Signed: Charlie Barrientos MD at 21:25 EDT Tel , Service support , Operations: None Procedures: 2-D Echocardiogram Summary of Care Provided: The patient is a 80 year old M admitted 10/11/2020 due to dyspnea, lower extremity edema. 1. Acute on chronic heart failure with reduced ejection fraction/ischemic cardiomyopathy-chest x-ray consistent with congestion. BNP 561. IV Lasix during admission. Patient not noted to be hypoxic, patient was weaned off of minimal supplemental oxygen, walking pulse ox completed prior to discharge and patient's oxygen remained stable on room air. Echocardiogram April 2019 demonstrated an EF of 45 to 50%, stage II diastolic dysfunction, mild tricuspid valve insufficiency, RVSP estimated to be 36 mmHg. Repeat echo pending and will be reviewed prior to discharge. Will increase home Lasix regimen to 40 mg twice daily. Follow up with PCP in 1 week, follow up with cardiology in 1 week as well. 2. COPD exacerbation- IV Solu-Medrol during admission. Prednisone taper at discharge. Continue home inhaler regimen. 3. Persistent atrial fibrillation- On metoprolol, Coumadin. 4. CAD with history of CABG-continue aspirin, isosorbide, metoprolol, statin. 5. 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 6. Hypertension-stable, continue isosorbide, metoprolol. 7. Hyperlipidemia-continue statin. 8. Chronic normocytic anemia/iron deficiency anemia/chronic thrombocytopenia-history of GI bleed. Stable. Continue PPI. 9. Tobacco dependence-encouraged cessation. 10. GERD-continue PPI. General: Alert, Oriented x3, Cooperative HEENT: Atraumatic, PERRLA, EOMI, Normocephalic Neck: Supple, No JVD, Negative Carotid Bruits Lungs: Diminished, Wheezes Cardiovascular: Normal rate, Normal rhythm, Murmur Abdomen: Bowel Sounds Present, Soft, Non Tender, Non-Distended Extremities: No clubbing, No cyanosis, Edema - Bilateral lower extremities, Nic wraps in place Skin: No rashes, No breakdown Musculoskeletal: No Tenderness to Palpation of Joints or Extremities Neurological: Cranial nerves II-XII grossly intact, Neuro grossly intact Psych/Mental Status: Normal Affect, Appropriate Patient seen and examined prior to discharge. Physical assessment as noted above. Patient is stable for discharge with follow up recommendations as noted above. This patient was seen by JAMES Luciano under the supervision of Dr. Uribe. Patient Problems: Active and Suspected Problems (Last Reviewed 11/26/19 @ 13:35 by Laron Clay NP, OPERATIONS ADMINISTRATIVE ASSISTANT-C) CHF exacerbation (Acute) - Physical Exam Vitals/I&O's: Vital Signs Temp Pulse Resp BP Pulse Ox 98.3 F 71 18 103/56 L 93 10/13/20 09:36 10/13/20 09:36 10/13/20 09:36 10/13/20 09:36 10/13/20 09:50 Oxygen Flow Rate (L/min) [ 0 AMBULATING on Room Air] Oxygen Flow Rate (L/min) [At 0 REST on Room Air] Oxygen Flow Rate (L/min) 1 Oxygen Delivery Method Room Air Weight: 169 lb 5.04 oz Body Mass Index (BMI) 25.4 Intake and Output for Last 24 Hours 10/11/20 10/12/20 10/13/20 23:59 23:59 23:59 Intake Total 580 / 580 Output Total 300 / 300 4850 / 4850 100 / 100 Balance -300 / -300 -4270 / -4270 -100 / -100 Laboratory Results 10/13/20 05:06: WBC 5.2, RBC 4.53 L, Hgb 13.6, Hct 43.7, MCV 96.5 H, MCH 30.0, MCHC 31.1 L, RDW Std Deviation 56.3 H, RDW Coeff of Kalyan 15.9 H, Plt Count 134 L, MPV 10.5 10/13/20 05:06: PT 20.3 H, INR 1.8 10/13/20 05:06: Sodium 140, Potassium 3.9, Chloride 106, Carbon Dioxide 29.0, Anion Gap 5, BUN 23 H, Creatinine 1.12, Estim Creat Clear Calc 52.50, Est GFR (MDRD) Af Amer 81, Est GFR (MDRD) Non-Af 67, BUN/Creatinine Ratio 20.5 H, Glucose 154 H, Calcium 9.0 Current Medications Acetaminophen (Acetaminophen 325 Mg Tablet) 650 mg PO Q6H PRN PRN PRN Reason: Pain Score 1-10/Temp > 100.7 F Albuterol Sulfate (Albuterol 2.5 Mg/3 Ml Vial.Neb.) 2.5 mg INHALATION Q2H PRN PRN PRN Reason: Dyspnea, wheezing Albuterol/Ipratropium (Ipratropium/Albuterol Sulfate 3 Ml Ampul.Neb) 3 ml INHALATION Q6HWA.RT [facility] Last Admin: 10/13/20 07:00 Dose: 3 ml Documented by: Aspirin (Aspirin E.C. 81 Mg Tablet) 81 mg PO DAILY@0800 [facility] Last Admin: 10/13/20 08:06 Dose: 81 mg Documented by: Atorvastatin Calcium (Atorvastatin Calcium 80 Mg Tablet) 80 mg PO QHS [facility] Last Admin: 10/12/20 20:19 Dose: 80 mg Documented by: Ferrous Sulfate (Ferrous Sulfate 325 Mg Tablet) 325 mg PO BIDCM [facility] Last Admin: 10/13/20 08:06 Dose: 325 mg Documented by: Folic Acid (Folic Acid 1 Mg Tablet) 1 mg PO QHS [facility] Last Admin: 10/12/20 20:19 Dose: 1 mg Documented by: Furosemide (Furosemide 40 Mg/4 Ml Vial) 40 mg IV BID@1000,1800 [facility] Last Admin: 10/13/20 09:43 Dose: 40 mg Documented by: Sodium Chloride () 250 mls @ 15 mls/hr IV .[id number] PRN PRN Reason: Saline Flush Isosorbide Mononitrate (Isosorbide Mononitrate 30 Mg Tablet) 30 mg PO QAM [facility] Last Admin: 10/13/20 08:06 Dose: 30 mg Documented by: Methylprednisolone (Methylprednisolone 40 Mg/Ml Vial) 20 mg IV Q8 [facility] Last Admin: 10/13/20 06:29 Dose: 20 mg Documented by: Metoprolol Tartrate (Metoprolol Tartrate 25 Mg Tablet) 12.5 mg PO BID [facility] Last Admin: 10/13/20 08:06 Dose: 12.5 mg Documented by: Ondansetron HCl (Ondansetron 4 Mg/2 Ml Vial) 4 mg IV Q8H PRN PRN PRN Reason: NAUSEA/VOMITING Oxycodone HCl (Oxycodone 5 Mg Tablet) 5 mg PO Q4H PRN PRN PRN Reason: Pain Score 4-5 Pantoprazole Sodium (Pantoprazole Sodium 40 Mg Tablet) 40 mg PO BID [facility] Last Admin: 10/13/20 08:06 Dose: 40 mg Documented by: Pregabalin (Pregabalin 75 Mg Capsule) 75 mg PO TID [facility] Last Admin: 10/13/20 06:29 Dose: 75 mg Documented by: Senna/Docusate Sodium (Senna/Docusate Sodium 1 Tablet) 2 tablet PO BID PRN PRN PRN Reason: Constipation Sodium Chloride (0.9% Saline Lock 10 Ml Syringe) 10 - 40 ml IV UD PRN PRN Reason: SALINE FLUSH Last Admin: 10/13/20 09:43 Dose: 10 ml Documented by: Warfarin Sodium (Warfarin 5 Mg Tablet) 5 mg PO Fuller@1700 [facility] Last Admin: 10/12/20 17:15 Dose: 5 mg Documented by: Warfarin Sodium (Warfarin 7.5 Mg Tablet) 7.5 mg PO MoTuWeThFrSa@1700 [facility] Zolpidem Tartrate (Zolpidem Tartrate 5 Mg Tablet) 5 mg PO QHS [facility] Last Admin: 10/12/20 20:19 Dose: 5 mg Documented by: Discharge Diet: Low fat/ Low Cholesterol, 8 Cup Fluid Restriciton, 2000 mg Sodium Diet Discharge Activity: Return to Normal Activity Call your doctor if you observe: Shortness of breath, Dizziness, Fainting spells, Chest pain Home Medications: Medications to take at Discharge Rosuvastatin Calcium [Crestor] 40 mg PO QHS 07/15/13 Ferrous Sulfate 325 mg PO BIDCM 09/13/15 Albuterol Sulfate [Proair Respiclick] 1 puff INHALATION Q4H PRN PRN 09/25/15 Cholecalciferol (VIT D3) [Vitamin D3] 2,000 unit PO DAILY 09/25/15 Nitroglycerin (INPATIENT USE) [Nitrostat] 0.4 mg SUBLINGUAL Q5M PRN #30 tab 09/26/15 Aspirin E.C. [Ecotrin] 81 mg PO DAILY@0800 06/24/16 Folic Acid 1 mg PO QHS 06/24/16 Ipratropium/Albuterol Sulfate [Duoneb] 3 ml INHALATION Q4H PRN PRN #30 ampul.neb 11/02/16 Budesonide/Formoterol 160/4.5 [Symbicort 160/4.5 Mcg Inhaler (SP)] 2 puff INHALATION BID 02/08/17 isosorbide mononitrate 30 mg tablet,extended release 24 hr 30 mg PO QAM 11/21/17 pantoprazole 40 mg tablet,delayed release 40 mg PO BID tab 01/02/18 warfarin 5 mg tablet 5 mg PO FULLER tab 01/02/18 warfarin 7.5 mg tablet 7.5 mg PO MOTUWETHFRSA tab 01/02/18 Zolpidem Tartrate [Ambien] 10 mg PO QHS 05/26/18 Pregabalin [Lyrica] 75 mg PO TID 07/28/18 metoprolol tartrate 25 mg tablet 12.5 mg PO BID tab 11/26/19 Furosemide [Lasix] 40 mg PO BID #30 tablet 10/13/20 Prednisone See Taper PO DAILY #30 tablet 10/13/20 Following Prescriptions Were Given to Patient: Furosemide [Lasix] 40 mg PO BID #30 tablet Transmission Status: Received by [facility]30 Prednisone See Taper PO DAILY #30 tablet Transmission Status: Received by [facility] Primary Care Physician: Guillermo Pritchard MD [Primary Care Provider] - Please follow up with your Primary Care Physician in: 1 Week Please Follow Up With: Laron Clay OPERATIONS ADMINISTRATIVE ASSISTANT, OPERATIONS ADMINISTRATIVE ASSISTANT-C When: 1 Week Disposition: Home Minutes spent on discharge:: 35 Patient Condition:: Stable Medical Necessity - Tobacco Use Smoking Status: Current every day smoker Tobacco Use: Cigarettes Meaningful Use Info Meaningful Use Diagnoses (Choose all that apply): CHF - CHF NIC/ARB ordered at discharge?: No Reason NIC/ARB not ordered?: Hypotension Documented LVEF (%): 45 <RonySterling - Last Filed: 10/13/20 15:25> Discharge Date and Diagnosis - Primary Discharge Diagnosis Acute Problems: Active Problems (Last Reviewed 11/26/19 @ 13:35 by Laron Clay OPERATIONS ADMINISTRATIVE ASSISTANT, OPERATIONS ADMINISTRATIVE ASSISTANT-C) CHF exacerbation (Acute) - Secondary Discharge Diagnosis Chronic Problems: Chronic Problems (Last Reviewed 11/26/19 @ 13:35 by Laron Clay OPERATIONS ADMINISTRATIVE ASSISTANT, OPERATIONS ADMINISTRATIVE ASSISTANT-C) Intractable pain (Chronic) Trimalleolar fracture of ankle, closed (Chronic) Non-rheumatic tricuspid valve insufficiency (Chronic) Secondary pulmonary arterial hypertension (Chronic) Chronic systolic (congestive) heart failure (Chronic) Ischemic cardiomyopathy (Chronic) History of coronary artery stent placement (Chronic) 06/28/2011 prior to PTCA and BMS (3.0 mm X 18 mm long Integrity stent) to mid LAD, BMS to the mid distal CX (4.5 X 16mm Veriflex stent), and BMS to the proximal CX (3.5 X 15 mm Integrity stent) @ [facility] Atherosclerotic heart disease of [place] coronary artery without angina pectoris (Chronic) 03/27/1993: RED to LAD (CABG X1 along with AVR, [facility]):06/28/2011 prior to PTCA and BMS to mid LAD, BMS to the mid distal CX, and BMS to the proximal CX @ [facility] History of left heart catheterization (Chronic) 03/27/1993 [facility] prior to CABG X1 and AVR; 06/28/2011 prior to PTCA and BMS to mid LAD, BMS to the mid distal CX, and BMS to the proximal CX @ [facility] History of aortic valve replacement (Chronic) 03/27/1993: RED to LAD and 23mm St. Rachid Mechanical AVR placed for severe per Dr. Darrell Shaw [facility] S/P CABG x 1 (Chronic) 03/27/1993: RED to LAD and 23mm St. Rachid Prosthetic AVR placed for severe per Dr. 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 HERNANDEZ Hospital Course and Treatment Summary of Care Provided: This patient was seen in conjunction with Roopa Benavidez OPERATIONS ADMINISTRATIVE ASSISTANT. I have independently interviewed and examined the patient and reviewed pertinent historical, laboratory, and other data. Please refer to her note for patient's presentation, findings, and recommendations. 80-year-old male with multiple comorbidities including chronic systolic CHF, ischemic cardiomyopathy, chronic atrial fibrillation, COPD, hypertension who comes in with progressive dyspnea, orthopnea, bilateral leg edema, weight gain ongoing for 1 and half weeks. Patient was admitted and managed as acute on chronic systolic CHF. The echo during this hospital stay showed an EF of 45%. Patient was managed that acute on chronic systolic CHF as well as acute COPD exacerbation. He was discharged home on Lasix, and prednisone taper. He will follow-up with pulmonology in the outpatient. On the day of discharge, patient was seen and examined. Denied any new complaint. He was ambulated and did not require oxygen. Vitals were reviewed -stable Physical Exam: Gen: Comfortable, not pale, not jaundiced, alert oriented x3 CVS:HS I +II, regular, no murmurs RESP: Diminished at lung bases, no crackles heard GI: BS present and normal, nontender, no palpable organs EXT:Bilateral trace pedal edema - Physical Exam Vitals/I&O's: Vital Signs Temp Pulse Resp BP Pulse Ox 98.3 F 71 18 103/56 L 93 10/13/20 09:36 10/13/20 09:36 10/13/20 09:36 10/13/20 09:36 10/13/20 09:50 Oxygen Flow Rate (L/min) [ 0 AMBULATING on Room Air] Oxygen Flow Rate (L/min) [At 0 REST on Room Air] Oxygen Flow Rate (L/min) 1 Oxygen Delivery Method Room Air Weight: 76.8 kg Body Mass Index (BMI) 25.4 Intake and Output for Last 24 Hours 10/11/20 10/12/20 10/13/20 23:59 23:59 23:59 Intake Total 580 / 580 320 / 320 Output Total 300 / 300 4850 / 4850 1050 / 1050 Balance -300 / -300 -4270 / -4270 -730 / -730 Laboratory Results 10/11/20 20:53: Diff Path Review Reviewed 10/12/20 02:53: Diff Path Review Reviewed 10/13/20 05:06: WBC 5.2, RBC 4.53 L, Hgb 13.6, Hct 43.7, MCV 96.5 H, MCH 30.0, MCHC 31.1 L, RDW Std Deviation 56.3 H, RDW Coeff of Kalyan 15.9 H, Plt Count 134 L, MPV 10.5 10/13/20 05:06: PT 20.3 H, INR 1.8 10/13/20 05:06: Sodium 140, Potassium 3.9, Chloride 106, Carbon Dioxide 29.0, Anion Gap 5, BUN 23 H, Creatinine 1.12, Estim Creat Clear Calc 52.50, Est GFR (MDRD) Af Amer 81, Est GFR (MDRD) Non-Af 67, BUN/Creatinine Ratio 20.5 H, Glucose 154 H, Calcium 9.0 Inpatient E&M: 78096 Disch Hosp
--- NOTE | 2020-10-13 11:35 | CASEMGMT ---
SURY MUNOZ assessment: Face to Face with patient for initial transition planning/care coordination assessment. SURY MUNOZ introduced self and role at [facility], pt voices understanding and conssents to assessment. Pt is sitting up in bed in no distress. Pt is A/Ox4 and answers all questions appropriately. Care providers, pharmacy, and demographics verified. Presentation: SOB increased over 2 days, weight gain 9# over 2 weeks. Hx CHF, pain BLE Admitting dx: Acute CHF exacerbation PCP: Francheska/Asael CHILDERS Specialists: katina Bearden [facility]erred [facility]acy: [facility] [place] [place] Benefit: [facility] Living Will/HPOA: Pt has LW/HPOA on file at [facility] and his daughter, Emily Montejo, is HPOA. LNOK: Emily Montejo, daughter/HPOA Living Arrangements: Pt states lives alone in 1 story home and states no concerns at home. Pt states is independent with ADL's. Transportation: Pt states drives self and states no transportation concerns. DME/HHC: Pt states has the following DME: cane, walker, w/c, shower chair, hand held shower, power chair, and nebulizer thru [place]. Pt states no need for any further DME. Pt states has had HHC in the past s/p ankle fx and states no hx of SNF. Palliative screening tool completed and pt does not qualify currently. Pt states no concerns with going home at time of discharge. Pt states is retired. Pt states smokes 1/2-3/4pack cigarettes daily and states does not drink ETOH. Pt states no further concerns/needs. CM to follow for any further discharge planning/needs. Advised pt to ask for CM if any further questions/concerns/needs arise, voices understanding. Pt Goal: Home Plan: Home [place] SURY MUNOZ
--- NOTE | 2020-10-13 11:48 | PHA.DC.MC ---
Pharmacy Service has performed discharge medication reconciliation and counseling for this patient. 1. PREDNISONE 40MG PO DAILY X 3 DAYS, THEN 30MG X 3 DAYS, THEN 20MG X 3 DAYS, THEN 10MG X 3 DAYS The patient's discharge medication list was reviewed for discrepancies and discrepancies were resolved. Home Medications Rosuvastatin Calcium [Crestor] 40 mg PO QHS 07/15/13 Ferrous Sulfate 325 mg PO BIDCM 09/13/15 Albuterol Sulfate [Proair Respiclick] 1 puff INHALATION Q4H PRN PRN 09/25/15 Cholecalciferol (VIT D3) [Vitamin D3] 2,000 unit PO DAILY 09/25/15 Nitroglycerin (INPATIENT USE) [Nitrostat] 0.4 mg SUBLINGUAL Q5M PRN #30 tab 09/26/15 Aspirin E.C. [Ecotrin] 81 mg PO DAILY@0800 06/24/16 Folic Acid 1 mg PO QHS 06/24/16 Ipratropium/Albuterol Sulfate [Duoneb] 3 ml INHALATION Q4H PRN PRN #30 ampul.neb 11/02/16 Budesonide/Formoterol 160/4.5 [Symbicort 160/4.5 Mcg Inhaler (SP)] 2 puff INHALATION BID 02/08/17 isosorbide mononitrate 30 mg tablet,extended release 24 hr 30 mg PO QAM 11/21/17 pantoprazole 40 mg tablet,delayed release 40 mg PO BID tab 01/02/18 warfarin 5 mg tablet 5 mg PO FULLER tab 01/02/18 warfarin 7.5 mg tablet 7.5 mg PO MOTUWETHFRSA tab 01/02/18 Zolpidem Tartrate [Ambien] 10 mg PO QHS 05/26/18 Pregabalin [Lyrica] 75 mg PO TID 07/28/18 metoprolol tartrate 25 mg tablet 12.5 mg PO BID tab 11/26/19 Furosemide [Lasix] 40 mg PO BID #30 tablet 10/13/20 Prednisone See Taper PO DAILY #30 tablet 10/13/20 The patient was counseled on the following discharge medications and changes in medications for homegoing were reviewed. The Reason for Use, instructions for use, and potential side effects were reviewed for all new medications. The patient's questions regarding all of their medications were answered. The patient was able to verbally demonstrate an understanding of their discharge medications.
[2020-10-13 13:39] LABS: Pathologist Review Reviewed
[2020-10-13 13:44] LABS: Pathologist Review Reviewed
--- NOTE | 2020-10-14 10:42 | CASEMGMT ---
SURY MUNOZ Discharge F/U Phone Call LACE: Jaime Strata: 3 Discharge date: 10/13/20 Call date: 10/14/20 Call time: [phone] Admission dx: Acute CHF exacerbation Pt states 'I have been doing fine and I feel much better' since discharge. Pt states no questions regarding discharge instructions/medications and states My daughter got all my pills set up for me.' Pt states plans to see PCP and cardiolologist in a week. Pt states no suggestions for [facility] at this time and states 'You all took good care of me.' Pt voices no further questions/concerns/needs and thanks SURY MUNOZ for call. [place] SURY MUNOZ
== END 2020-10-13 13:04 | disposition home or self-care (01) | DRG 292 ==
LOC: ED 22:02 → PCU 10-12 02:28
PROVIDERS: Nurse Practitioner Family; Admitting Provider Family Medicine; Emergency Provider Emergency Medicine; PCP Family Medicine; Visit Provider Internal Medicine
DX: I11.0 Hypertensive heart disease with heart failure (principal); J44.1 Chronic obstructive pulmonary disease with (acute) exacerbation; I48.19 Other persistent atrial fibrillation; I25.5 Ischemic cardiomyopathy; I50.23 Acute on chronic systolic (congestive) heart failure; I25.10 Atherosclerotic heart disease of native coronary artery without angina pectoris; Z95.1 Presence of aortocoronary bypass graft; Z95.2 Presence of prosthetic heart valve; E78.5 Hyperlipidemia, unspecified; D50.9 Iron deficiency anemia, unspecified; D69.6 Thrombocytopenia, unspecified; K21.9 Gastro-esophageal reflux disease without esophagitis; F17.210 Nicotine dependence, cigarettes, uncomplicated
CPT/HCPCS: 36415; 71045; 80048; 80053; 80061; 80076; 83735; 83880; 84443; 84484; 85025; 85027; 85610; 93005; 93306; 94640; 97161; 97166; 97802; 99251; 99285; Q9957; A4216; C8929; G0463; J1940

== ENCOUNTER → 2021-05-29 10:25 | Outpatient (CLI) | payer MEDICARE, SELFPAY ==
--- NOTE | 2021-05-29 10:28 | ART_ITS ---
Reason For Study: ULCER Procedure A bilateral lower extremity continuous wave Doppler with analog waveform analysis,segmental pressures,and ankle brachial indexes without exercise. Left Segmental Pressures Left brachial= 127mmHg. Left posterior tibial artery = 163mmHg. Left dorsalis pedis artery = 159mmHg. Left digit = 136 mmHg. The left dorsalis pedis waveforms are biphasic. The left posterior tibial artery waveforms are biphasic. Right Segmental Pressures Right brachial= 141mmHg. Right posterior tibial artery = 169mmHg. Right dorsalis pedis artery = 163mmHg. Right digit = 113 mmHg. The right dorsalis pedis waveforms are biphasic. The right posterior tibial artery waveforms are biphasic. Indices The right ankle brachial index by the posterior tibial artery is 1.20. The right ankle brachial index by the dorsalis pedis is 1.16. The right digital-brachial index is .80. The left ankle brachial index by the dorsalis pedis is 1.13. The left ankle brachial index by the posterior tibial artery is 1.16. The left digital-brachial index is .96. VL/Lower Ext Art Exam w/o Exercis Interpretation Summary Biphasic Doppler waveforms are noted at ankle level bilaterally. Pulse-volume r ecordings appear satisfactory bilaterally. Resting ankle-brachial indices are normal bilaterally . Digital-brachial indices are normal bilaterally. There is no evidence of significant arterial occlusive disease in the lower ext remities bilaterally. Ordering Physician: Mary Alice Villarreal Referring Physician: BLOSSOM RIOS Performed By: JERALD VALVERDE RDCS
== END ==
PROVIDERS: PCP Family Medicine; Referring Provider Podiatrist; Visit Provider Podiatrist
DX: I73.9 Peripheral vascular disease, unspecified (principal); L97.909 Non-pressure chronic ulcer of unspecified part of unspecified lower leg with unspecified severity
CPT/HCPCS: 93923

== ENCOUNTER → 2021-06-02 | Outpatient (CLI) | payer MEDICARE, SELFPAY ==
[2021-06-02 19:37] LABS: M R Staph aureus DNA By PCR Negative (Negative); Staph aureus DNA By PCR NEGATIVE (Negative)
[2021-06-02 19:38] LABS: Probe Check PASS
== END | disposition home or self-care (01) ==
PROVIDERS: PCP Family Medicine; Visit Provider Podiatrist
DX: L03.90 Cellulitis, unspecified (principal)
CPT/HCPCS: 87070; 87075; 87077; 87186; 87205; 87640

== ENCOUNTER → 2021-06-03 13:13 | Outpatient (CLI) | payer MEDICARE, SELFPAY ==
[2021-06-03 15:42] LABS: Erythrocyte Sedimentation Rate 26 mm/hr (0-20)
[2021-06-03 15:46] LABS: Absolute Lymphocyte Count 0.93 X10^3/uL (0.83-4.51); Absolute Neutrophil Count 2.6 X10^3/uL (2.0-7.7); Basophil# 0.03 X10^3/uL; Basophil% 0.7 % (0-1); Eosinophil# 0.07 X10^3/uL; Eosinophils% 1.7 % (0-5); Hematocrit 36.7 % (40-54); Hemoglobin 11.5 g/dL (13.0-16.5); Lymphocyte # 0.93 X10^3/ul (0.83-4.51); Lymphocyte % 23.2 % (19-41); Mean Corp Hgb Conc 31.3 g/dL (32-36); Mean Corpuscular Hgb 31.7 pg (27.0-32.0); Mean Corpuscular Volume 101.1 fL (80-94); Mean Platelet Vol. 11.3 fl (6.2-12.0); Monocyte# 0.38 X10^3/uL; Monocyte% 9.5 % (0-10); NRBC Flagged by Analyzer 0 % (0-5); Neutrophil # 2.59 X10^3/uL (2.7-7.7); Neutrophil % 64.7 % (47-70); Platelet Count 144 K/mm3 (150-450); RBC Distribution Width CV 14.4 % (11.6-14.6); RBC Distribution Width SD 54.3 fl (35.1-43.9); Red Blood Count 3.63 M/mm3 (4.6-6.2)
[2021-06-03 15:56] LABS: ALB/GLOB Ratio 0.9 RATIO (0.9-2.4); AST(SGOT) 27 U/L (15-37); Alanine Aminotransfer ALT/SGPT 20 U/L (16-61); Albumin, Serum 3.5 g/dL (3.2-5.0); Alkaline Phosphatase 130 U/L (45-117); Anion Gap 5 (5-15); BUN 18 mg/dL (7-18); BUN/Creat Ratio 14.1 RATIO (10-20); Calcium,Total 8.8 mg/dL (8.5-10.1); Chloride 107 mmol/L (98-107); Creatinine, Serum 1.28 mg/dL (0.70-1.30); EST Glomerular Filtration Rate 57 mL/min (>60); Est Glom Filt Rate - Afr Amer 69 mL/min (>60); Globulin 3.7 g/dL (2.2-4.2); Glucose 95 mg/dL (74-106); Potassium 3.8 mmol/L (3.5-5.1); Protein, Total 7.2 g/dL (6.4-8.2); Sodium Level 140 mmol/L (136-145)
== END ==
PROVIDERS: PCP Family Medicine; Referring Provider Podiatrist; Visit Provider Podiatrist
DX: L03.90 Cellulitis, unspecified (principal)
CPT/HCPCS: 36415; 80053; 85025; 85652; 86140

== ENCOUNTER → 2021-06-16 13:37 | Outpatient (CLI) | payer MEDICARE, SELFPAY ==
[2021-06-16 15:06] LABS: Erythrocyte Sedimentation Rate 24 mm/hr (0-20)
[2021-06-16 15:09] LABS: Absolute Lymphocyte Count 0.87 X10^3/uL (0.83-4.51); Absolute Neutrophil Count 3.5 X10^3/uL (2.0-7.7); Basophil# 0.05 X10^3/uL; Eosinophil# 0.07 X10^3/uL; Eosinophils% 1.4 % (0-5); Hematocrit 33.4 % (40-54); Hemoglobin 10.3 g/dL (13.0-16.5); Lymphocyte # 0.87 X10^3/ul (0.83-4.51); Lymphocyte % 17.6 % (19-41); Mean Corp Hgb Conc 30.8 g/dL (32-36); Mean Corpuscular Hgb 30.7 pg (27.0-32.0); Mean Corpuscular Volume 99.4 fL (80-94); Mean Platelet Vol. 11.3 fl (6.2-12.0); Monocyte# 0.44 X10^3/uL; Monocyte% 8.9 % (0-10); NRBC Flagged by Analyzer 0 % (0-5); Neutrophil % 70.7 % (47-70); Platelet Count 165 K/mm3 (150-450); RBC Distribution Width CV 14.7 % (11.6-14.6); RBC Distribution Width SD 52.9 fl (35.1-43.9); Red Blood Count 3.36 M/mm3 (4.6-6.2)
[2021-06-16 15:23] LABS: Prothrombin Time (Protime)PT. 30.7 SECONDS (11.7-14.9)
[2021-06-16 15:29] LABS: AST(SGOT) 29 U/L (15-37); Alanine Aminotransfer ALT/SGPT 23 U/L (16-61); Albumin, Serum 3.6 g/dL (3.2-5.0); Alkaline Phosphatase 115 U/L (45-117); Anion Gap 6 (5-15); BUN 31 mg/dL (7-18); BUN/Creat Ratio 25.8 RATIO (10-20); CRP, High Sensitivity Cardiac 2.58 mg/L; Calcium,Total 8.6 mg/dL (8.5-10.1); Chloride 107 mmol/L (98-107); EST Glomerular Filtration Rate 61 mL/min (>60); Est Glom Filt Rate - Afr Amer 74 mL/min (>60); Globulin 3.6 g/dL (2.2-4.2); Glucose 121 mg/dL (74-106); Potassium 3.9 mmol/L (3.5-5.1); Protein, Total 7.2 g/dL (6.4-8.2); Sodium Level 140 mmol/L (136-145)
== END ==
PROVIDERS: PCP Family Medicine; Referring Provider Family Medicine; Visit Provider Family Medicine
DX: I10 Essential (primary) hypertension (principal)
CPT/HCPCS: 36415; 80053; 85025; 85610; 85652; 86141

== ENCOUNTER 2021-06-21 18:48 | Emergency (ER) | payer OTHER, SELFPAY ==
[2021-06-21] VITALS (7 sets, daily range): BP systolic 100–133; BP diastolic 55–76; PULSE 64–88; RESP 12–24; TEMP 36.7–36.9; O2SAT 93–100; BMI 23.6
--- NOTE | 2021-06-21 19:01 | EKG12_ITS ---
Test Reason : CP Blood Pressure : / mmHG Vent. Rate : 057 BPM Atrial Rate : 056 BPM P-R Int : 000 ms QRS Dur : 156 ms QT Int : 478 ms P-R-T Axes : 000 -63 100 degrees QTc Int : 465 ms Atrial fibrillation Right bundle branch block Left anterior fascicular block Bifascicular block Septal infarct , age undetermined T wave abnormality, consider lateral ischemia Abnormal ECG Confirmed by JOSÉ KO, WEI ([id number]), technical writer and editor MIMA VALDEZ ([id number]) on 06/23/2021 10:05:23 AM Referred By: VENTURA Confirmed By:WEI KUMAR MD
--- NOTE | 2021-06-21 19:10 | EDS_ITS ---
HPI History of Present Illness Chief Complaint: Shortness of Breath Informant: patient and family Onset/Context/Timing Onset: Today Context: sudden Timing: Continuous Quality: Positive for Dyspnea on exertion Worsened by: Exertion Relieved by: Oxygen and Albuterol Associated Symptoms Negative for cough, rhinorrhea, ear pain, fever, sore throat, chills, clear sputum, white sputum, yellow sputum or green sputum Chest Pain: Positive for Continuous and Dull Narrative Narrative: Patient presents with shortness of breath that began today. Patient states he was working in his barn when he became short of breath. Patient states he was having difficulty walking to his house. Patient states his breathing is worse with exertion. Patient states his breathing is better with rest and albuterol. Patient denies any cough. Patient denies any fevers or chills. Patient denies any sore throat or rhinorrhea. Patient denies any exposures to COVID-19. Patient states he has not been vaccinated against COVID-19. Patient states he has lost his sense of taste and smell over the past few days. [facility] Medical History Ambulates with cane Anemia due to chronic blood loss Arthritis Atherosclerotic heart disease of [place] coronary artery without angina pectoris Back pain Cardiology follow-up encounter Chronic cough Chronic pain syndrome Chronic systolic (congestive) heart failure COPD (chronic obstructive pulmonary disease) COPD (chronic obstructive pulmonary disease) Difficulty swallowing Essential hypertension Gastric reflux High cholesterol History of atrial fibrillation History of CHF (congestive heart failure) History of echocardiogram History of edema History of GI bleed History of heart attack History of pain when walking History of stress test Hx of fracture of ankle Hx of fracture of ankle Hypertension Injury of back Ischemic cardiomyopathy [facility] current use of anticoagulant Non-rheumatic tricuspid valve insufficiency Paroxysmal atrial fibrillation Pure hypercholesterolemia Restless legs Secondary pulmonary arterial hypertension Shortness of breath on exertion Smoker Spinal stenosis of lumbar region TIA (transient ischemic attack) Tobacco use disorder Uncontrolled pain Wears dentures Wears glasses Home Medications rosuvastatin 40 mg PO QHS 07/15/13 [History Last Taken 06/03/18] ferrous sulfate 325 mg PO BIDCM 09/13/15 [History Last Taken 06/04/18] albuterol sulfate 1 puff INHALATION Q4H PRN PRN 09/25/15 [History Last Taken 06/04/18] cholecalciferol (vitamin D3) 2,000 unit PO DAILY 09/25/15 [History Last Taken 06/04/18] aspirin 81 mg PO DAILY@0800 06/24/16 [History Last Taken 06/04/18] folic acid 1 mg PO QHS 06/24/16 [History Last Taken 06/03/18] ipratropium-albuterol 3 ml INHALATION Q4H PRN PRN #30 ampul.neb 11/02/16 [Rx Last Taken 06/04/18] isosorbide mononitrate 30 mg tablet,extended release 24 hr 30 mg PO QAM 11/21/17 [History Last Taken 06/04/18] pantoprazole 40 mg tablet,delayed release 40 mg PO BID tab 01/02/18 [History Last Taken 06/04/18] warfarin 5 mg tablet 5 mg PO SUTUTHSA tab 01/02/18 [History Last Taken 06/04/18] warfarin 7.5 mg tablet 7.5 mg PO MOWEFR tab 01/02/18 [History Last Taken 06/03/18] zolpidem 10 mg PO QHS 05/26/18 [History Last Taken 06/03/18] pregabalin 75 mg PO TID 07/28/18 [History Last Taken Unknown] metoprolol tartrate 25 mg tablet 12.5 mg PO BID tab 11/26/19 [History Last Taken Unknown] nitroglycerin 0.4 mg sublingual tablet 0.4 mg SUBLINGUAL Q5M PRN #30 tab 05/25/21 [Rx Last Taken Unknown] amoxicillin-pot clavulanate [Augmentin] 1 tab PO BID 7 Days #14 tab 06/03/21 [Rx Last Taken Unknown] mometasone [Asmanex HFA] 2 puff INHALATION BID 06/18/21 [History Last Taken Unknown] tiotropium-olodaterol [Stiolto Respimat] 1 puff INHALATION DAILY 06/18/21 [History Last Taken Unknown] enoxaparin 60 mg/0.6 mL subcutaneous syringe 60 mg SUBCUT Q12H #6 ml 06/19/21 [Rx Last Taken Unknown] furosemide 40 mg PO DAILY 06/21/21 [History Last Taken Unknown] Allergy/AdvReac Type Severity Reaction Status Date / Time No Known Allergies Allergy Verified 06/21/21 18:50 Family History Son , age 44 from [place] CAD (coronary artery disease) Myocardial infarction Sudden cardiac Brother CAD (coronary artery disease) Pt states all nine of his siblings have heart problems Sister CAD (coronary artery disease) Patient states all nine of his siblings have heart problems Surgical History History of coronary artery stent placement (~06/28/11) History of left heart catheterization History of lumbar fusion History of mechanical aortic valve replacement (~03/27/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) Social History Smoking Status: Current every day smoker tobacco type: cigarettes ROS ROS ED Constitutional Constitutional ED: Denies chills or fever(s) Eyes Eyes: Denies blurry vision or change in vision ENT ENT ED: Denies rhinorrhea or sore throat Cardiovascular Cardiovascular: Reports chest pain; Denies palpitations Respiratory/Chest Respiratory/Chest: Reports dyspnea; Denies cough Gastrointestinal Gastrointestinal: Denies nausea or vomiting Genitourinary Genitourinary ED: Denies dysuria or hematuria Musculoskeletal Musculoskeletal: Denies back pain or neck pain Integumentary Denies abscess or rash Neurologic Neurologic: Denies headache(s) or weakness Allergic/Immunologic Allergic/Immunologic ED: Denies mouth swelling or urticaria EXAM Physical Exam Const Vital Signs: 06/21/21 18:50 06/21/21 18:55 06/21/21 20:01 Temperature 98.0 F 98.0 F Temperature Source Oral Oral Pulse Rate 83 71 69 Respiratory Rate 24 H 16 12 Respiratory Effort Short of Breath Blood Pressure 133/56 H 133/56 H 100/63 Blood Pressure Mean 81 81 75 Pulse Ox 99 100 94 Oxygen Delivery Method Room Air Room Air Room Air 06/21/21 20:14 06/21/21 21:31 06/21/21 22:11 Temperature 98.3 F 98.1 F 98.5 F Temperature Source Temporal Temporal Temporal Pulse Rate 64 73 71 Respiratory Rate 13 18 15 Respiratory Effort Blood Pressure 130/58 H 113/55 L 116/76 Blood Pressure Mean 82 74 89 Pulse Ox 95 93 95 Oxygen Delivery Method Room Air Room Air Room Air Positive well nourished and well developed General Appearance ED: well developed HEENT Reports moist mucous membranes Neck supple and no JVD Resp normal respiratory effort Auscultation: rhonchi throughout Cardio regular rate and no murmurs Rhythm: abnormal rhythm irregularly irregular GI normal to inspection, nondistended, normoactive bowel sounds, non-tender, non- distended and no masses Auscultation: normoactive bowel sounds Palpation: soft Extremity normal to inspection General Extremety ED: Negative for edema or tenderness General Extremity: Negative for edema Neuro oriented x3, CN's II-XII intact bilaterally and no sensory deficits noted Sensorium / Orientation: alert Motor Exam: strength 5/5 throughout Psych mental status grossly normal Skin no rashes or lesions noted MDM MDM MDM Narrative Medical decision making narrative: EKG was obtained. On my interpretation, there is atrial fibrillation with a rate of 57. There is a right bundle branch block noted. There is a left anterior fascicular block. COVID-19 rapid antigen was obtained was negative. CBC was within normal limits. PT with INR was elevated at 4.3. PTT was 56.4. Comprehensive metabolic profile showed a BUN of 30 and creatinine of 1.50. These are consistent with prior results. Portable 1 view chest x-ray was obtained. On my interpretation, lung penn are clear. There is normal cardiac silhouette. Bony thorax is normal. There is no acute process noted. Radiologist also interpreted the x-ray and agrees. Lactate was slightly elevated at 3.3. Patient states he knows he has an infection in his little left ankle and is scheduled to have hardware removed because of this. Patient is currently on antibiotics for this. There is no erythema or warmth over the left ankle. There is no fluctuance. There is no abscess formation. High-sensitivity troponin was obtained and was normal. Patient wants to go home. Patient was instructed to continue his antibiotics. Patient was instructed to hold his Coumadin for the next 2 days. Patient was instructed to follow-up with his primary care physician in 2 to 3 days. Patient understood and was agreeable with the plan. All questions were answered. Lab Data Attestation: I reviewed the patient's lab results. Labs: Laboratory Results - last 24 hr 06/21/21 06/21/21 06/21/21 19:10 19:10 19:10 WBC 5.0 RBC 3.07 L Hgb 9.5 L Hct 30.6 L MCV 99.7 H MCH 30.9 MCHC 31.0 L RDW Std Deviation 53.3 H RDW Coeff of [place] 14.6 Plt Count 167 MPV 11.1 Immature Gran % (Auto) 0.400 Neut % (Auto) 77.2 H Lymph % (Auto) 13.8 L Hart % (Auto) 7.2 Eos % (Auto) 0.8 Baso % (Auto) 0.6 Absolute Neuts (auto) 3.9 Absolute Lymphs (auto) 0.69 L Nucleated RBC % 0 PT 40.7 H INR 4.3 H* APTT 56.4 H Sodium 142 Potassium 3.3 L Chloride 108 H Carbon Dioxide 26.0 Anion Gap 8 BUN 30 H Creatinine 1.50 H Estim Creat Clear Calc 37.31 Est GFR (MDRD) Af Amer 58 L Est GFR (MDRD) Non-Af 48 L BUN/Creatinine Ratio 20.0 Glucose 139 H Lactic Acid Calcium 9.1 Total Bilirubin 0.70 AST 30 ALT 26 Alkaline Phosphatase 109 Troponin I High Sens Total Protein 6.7 Albumin 3.3 Globulin 3.4 Albumin/Globulin Ratio 1.0 06/21/21 06/21/21 19:10 22:19 WBC RBC Hgb Hct MCV MCH MCHC RDW Std Deviation RDW Coeff of [place] Plt Count MPV Immature Gran % (Auto) Neut % (Auto) Lymph % (Auto) Hart % (Auto) Eos % (Auto) Baso % (Auto) Absolute Neuts (auto) Absolute Lymphs (auto) Nucleated RBC % PT INR APTT Sodium Potassium Chloride Carbon Dioxide Anion Gap BUN Creatinine Estim Creat Clear Calc Est GFR (MDRD) Af Amer Est GFR (MDRD) Non-Af BUN/Creatinine Ratio Glucose Lactic Acid 3.3 H* Calcium Total Bilirubin AST ALT Alkaline Phosphatase Troponin I High Sens 33 Total Protein Albumin Globulin Albumin/Globulin Ratio Radiography Chest X-Ray - ED: 1 View, Read by ED Physician, Read by Radiologist and Normal Diagnostic Testing: Clinical Impression(s) from Imaging Studies Chest X-Ray 06/21/21 19:37 IMPRESSION: 1. No radiographic evidence of acute cardiopulmonary disease. Electronically Signed: Ezequiel Tesfaye DO at 21:08 EST Tel , Service support , EKG Initial EKG: Attestation: I personally reviewed and interpreted this EKG as follows: Interpretation: Atrial Fibrillation, RBBB and LAFB Prior EKG tracings: available for review Prior: Unchanged (10/11/2020) Discharge Plan Triage Chief Complaint: Shortness of Breath ED Provider: Pancho Tillman Dx/Rx/DC Orders Clinical Impression: Dyspnea Instructions: ED Dyspnea Prescriptions: No Action isosorbide mononitrate 30 mg tablet extended release 24 hr 30 mg PO QAM RF: 0 warfarin 5 mg tablet 5 mg PO SUTUTHSA RF: 0 warfarin 7.5 mg tablet 7.5 mg PO MOWEFR RF: 0 metoprolol tartrate 25 mg tablet 12.5 mg PO BID RF: 0 nitroglycerin 0.4 mg tablet, sublingual 0.4 mg SUBLINGUAL Q5M PRN (Reason: Chest Pain) Qty: 30 RF: 0 rosuvastatin 40 MG tablet 40 mg PO QHS RF: 0 pantoprazole 40 mg tablet,delayed release (DR/EC) 40 mg PO BID RF: 0 ferrous sulfate 325 MG tablet 325 mg PO BIDCM RF: 0 cholecalciferol (vitamin D3) 1,000 UNIT tablet 2,000 unit PO DAILY RF: 0 albuterol sulfate 90 MCG aerosol powdr breath activated 1 puff INHALATION Q4H PRN PRN (Reason: Wheezing) RF: 0 aspirin 81 MG tablet 81 mg PO DAILY@0800 RF: 0 folic acid 1 MG tablet 1 mg PO QHS RF: 0 ipratropium-albuterol 3 ML solution for nebulization 3 ml INHALATION Q4H PRN PRN (Reason: sob/wheezing) Qty: 30 RF: 0 zolpidem 10 MG tablet 10 mg PO QHS RF: 0 pregabalin 75 MG capsule 75 mg PO TID RF: 0 amoxicillin-pot clavulanate [Augmentin] 875-125 mg tablet 1 tab PO BID 7 Days Qty: 14 RF: 0 Asmanex HFA 100 mcg/actuation Hfa Aerosol Inhaler 2 puff INHALATION BID RF: 0 Stiolto Respimat 2.5-2.5 mcg/actuation Mist 1 puff INHALATION DAILY RF: 0 furosemide 40 MG tablet 40 mg PO DAILY RF: 0 enoxaparin [Lovenox] 60 mg/0.6 mL syringe 60 mg subcut Q12H Qty: 6 RF: 1 Primary Care Provider: Guillermo Pritchard Referrals: Guillermo Pritchard MD [Primary Care Provider] - 3-5 Days Activity Restrictions/Additional Instructions: Your INR was 4.3. Hold your Coumadin for 2 days. Disposition Disposition: Home, Self Care
--- NOTE | 2021-06-21 19:37 | RAD_ITS ---
INDICATION: cough EXAMINATION/TECHNIQUE: X-RAY - XR Chest 1 View COMPARISON: 12/11/2020 chest x-ray FINDINGS: LINES/DEVICES: None. Intact sternotomy wires from prior thoracotomy. Overlying heart monitoring wires. LUNGS: Symmetric normal lung volumes. No airspace opacity or abnormal interstitial pattern. No nodule or mass. No pleural effusion or pneumothorax. MEDIASTINUM AND CARDIOVASCULAR STRUCTURES: Normal size and contour of the cardiomediastinal silhouette. No evidence of pulmonary vascular congestion. Thoracic aortic arch intimal calcifications noted. BONES AND SOFT TISSUES: No abnormality within limits of the exam. RAD/Chest 1 View (Portable) IMPRESSION: 1. No radiographic evidence of acute cardiopulmonary disease. Electronically Signed: Ezequiel Tesfaye DO at 21:08 EST Tel , Service support ,
[2021-06-21 19:51] LABS: AST(SGOT) 30 U/L (15-37); Alanine Aminotransfer ALT/SGPT 26 U/L (16-61); Albumin, Serum 3.3 g/dL (3.2-5.0); Alkaline Phosphatase 109 U/L (45-117); Anion Gap 8 (5-15); BUN 30 mg/dL (7-18); Calcium,Total 9.1 mg/dL (8.5-10.1); Chloride 108 mmol/L (98-107); EST Glomerular Filtration Rate 48 mL/min (>60); Est Glom Filt Rate - Afr Amer 58 mL/min (>60); Estimated Creatinine Clearance 37.31 ml/min; Globulin 3.4 g/dL (2.2-4.2); Glucose 139 mg/dL (74-106); Potassium 3.3 mmol/L (3.5-5.1); Protein, Total 6.7 g/dL (6.4-8.2); Sodium Level 142 mmol/L (136-145)
[2021-06-21 20:05] LABS: Partial Thromboplast Time 56.4 Seconds (24.1-36.2); Prothrombin Time (Protime)PT. 40.7 SECONDS (11.7-14.9)
[2021-06-21 20:22] LABS: Absolute Lymphocyte Count 0.69 X10^3/uL (0.83-4.51); Absolute Neutrophil Count 3.9 X10^3/uL (2.0-7.7); Basophil# 0.03 X10^3/uL; Basophil% 0.6 % (0-1); Eosinophil# 0.04 X10^3/uL; Eosinophils% 0.8 % (0-5); Hematocrit 30.6 % (40-54); Hemoglobin 9.5 g/dL (13.0-16.5); Lymphocyte # 0.69 X10^3/ul (0.83-4.51); Lymphocyte % 13.8 % (19-41); Mean Corpuscular Hgb 30.9 pg (27.0-32.0); Mean Corpuscular Volume 99.7 fL (80-94); Mean Platelet Vol. 11.1 fl (6.2-12.0); Monocyte# 0.36 X10^3/uL; Monocyte% 7.2 % (0-10); NRBC Flagged by Analyzer 0 % (0-5); Neutrophil # 3.86 X10^3/uL (2.7-7.7); Neutrophil % 77.2 % (47-70); Platelet Count 167 K/mm3 (150-450); RBC Distribution Width CV 14.6 % (11.6-14.6); RBC Distribution Width SD 53.3 fl (35.1-43.9); Red Blood Count 3.07 M/mm3 (4.6-6.2)
[2021-06-21 20:24] LABS: Lactic Acid 3.3 mmol/L (0.4-1.9)
[2021-06-21 20:29] LABS: International Normalized Ratio 4.3
[2021-06-21] MEDS: dexAMETHasone 4 MG/ML Vial 6 MG IV (21:29)
[2021-06-21 22:44] LABS: Troponin-I HS 33 pg/mL (3.0-78.0)
[2021-06-21 23:25] LABS: Reflex Lactate? Y
== END 2021-06-21 23:12 | disposition home or self-care (01) ==
PROVIDERS: Emergency Provider Emergency Medicine; PCP Family Medicine
DX: R06.00 Dyspnea, unspecified (principal); M19.90 Unspecified osteoarthritis, unspecified site; I25.10 Atherosclerotic heart disease of native coronary artery without angina pectoris; J44.9 Chronic obstructive pulmonary disease, unspecified; K21.9 Gastro-esophageal reflux disease without esophagitis; I48.0 Paroxysmal atrial fibrillation; E78.00 Pure hypercholesterolemia, unspecified; I11.0 Hypertensive heart disease with heart failure; I50.22 Chronic systolic (congestive) heart failure; F17.210 Nicotine dependence, cigarettes, uncomplicated; Z86.73 Personal history of transient ischemic attack (TIA), and cerebral infarction without residual deficits; Z79.01 Long term (current) use of anticoagulants; Z79.51 Long term (current) use of inhaled steroids; Z79.899 Other long term (current) drug therapy
CPT/HCPCS: 71045; 80053; 83605; 84484; 85025; 85610; 85730; 87040; 87426; 93005; 96361; 96374; 99285; J7040; A4216

== ENCOUNTER → 2021-06-24 08:34 | Outpatient (CLI) | payer MEDICARE, SELFPAY ==
[2021-06-24 10:26] LABS: INR Fingerstick 3.2; Prothrombin Time Fingerstick 35.5 SEC (11.9-14.4)
== END ==
PROVIDERS: PCP Family Medicine; Visit Provider Internal Medicine Cardiovascular Disease
DX: I48.0 Paroxysmal atrial fibrillation (principal); Z95.2 Presence of prosthetic heart valve; Z79.01 Long term (current) use of anticoagulants
CPT/HCPCS: 36416; 85610

== ENCOUNTER → 2021-06-29 09:09 | Outpatient (CLI) | payer MEDICARE, SELFPAY ==
[2021-06-29 10:56] LABS: INR Fingerstick 2.9; Prothrombin Time Fingerstick 32.2 SEC (11.9-14.4)
== END ==
PROVIDERS: PCP Family Medicine; Referring Provider Internal Medicine Cardiovascular Disease; Visit Provider Internal Medicine Cardiovascular Disease
DX: I48.0 Paroxysmal atrial fibrillation (principal); Z95.2 Presence of prosthetic heart valve; Z79.01 Long term (current) use of anticoagulants
CPT/HCPCS: 36416; 85610

== ENCOUNTER → 2021-07-01 04:19 | Outpatient (CLI) | payer MEDICARE, SELFPAY ==
[2021-07-01 10:31] LABS: Prothrombin Time Fingerstick 23.2 SEC (11.9-14.4)
== END ==
PROVIDERS: PCP Family Medicine; Referring Provider Internal Medicine Cardiovascular Disease; Visit Provider Internal Medicine Cardiovascular Disease
DX: I48.0 Paroxysmal atrial fibrillation (principal); Z95.2 Presence of prosthetic heart valve; Z79.01 Long term (current) use of anticoagulants
CPT/HCPCS: 36416; 85610

== ENCOUNTER 2021-07-02 13:28 | Observation (INO) | payer MEDICARE, SELFPAY ==
[2021-07-02] VITALS (15 sets, daily range): BP systolic 98–140; BP diastolic 47–80; PULSE 51–73; RESP 16–18; TEMP 36–37.2; O2SAT 92–100; BMI 24.3
[2021-07-02] MEDS: Lactated Ringers 1,000 ML 15 ML IV (11:30)
--- NOTE | 2021-07-02 11:34 | EKG12_ITS ---
Test Reason : PRE-OP Blood Pressure : / mmHG Vent. Rate : 058 BPM Atrial Rate : 058 BPM P-R Int : 188 ms QRS Dur : 152 ms QT Int : 500 ms P-R-T Axes : 017 -55 105 degrees QTc Int : 490 ms Sinus bradycardia with occasional Premature ventricular complexes Right bundle branch block Left anterior fascicular block Bifascicular block Septal infarct (cited on or before 28-JUL-2018) T wave abnormality, consider lateral ischemia Abnormal ECG Confirmed by JOSÉ KO, WEI ([id number]), purchase request editor MIMA VALDEZ ([id number]) on 07/07/2021 8:36:11 AM Referred By: Mary Alice Villarreal Confirmed By:WEI KUMAR MD
--- NOTE | 2021-07-02 13:30 | RAD_ITS ---
STUDY: INTRAOPERATIVE FLUOROSCOPY TECHNIQUE: The examination was performed with referring physician in attendance. Under fluoroscopic observation, fluoroscopic images were obtained. Radiologist was not present for the study. Radiologist did not perform the procedure. This dictation is for documentation of the radiation dosage only. There is no interpretation of the images. TOTAL NUMBER OF IMAGES: 1 COMPARISON: 05/25/18 RADIATION DOSE: 0.48 mGy FLUOROSCOPY TIME: 19.3 seconds REASON FOR EXAM: HARDWARE REMOVAL WITH BONE BX Male, 81 years old. FINDINGS: Images demonstrate removal of bone hardware. RAD/Ankle 2 Views IMPRESSION: Fluoroscopic assistance images were obtained. Dictation for documentation purposes only. Electronically Signed: John Vickers MD at 15:23 EST , Service support ,
--- NOTE | 2021-07-02 13:37 | PCM.HP.STD ---
HPI - General General Date of Admission: 07/02/21 HPI Narrative REBECCA ARRIOLA, is a 81 M who presents for infected hardware removal. He had initial open reduction internal fixation performed on 04-07-2018 which subsequently healed as planned. Over the course the last year he has had recurrent ulcers to the lateral ankle and underwent further initial work-up with a bone scan which did not confirm the diagnosis of infected hardware or osteomyelitis. Then he had subsequent continued recurrent ulcers with purulence and positive culture results. 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 He already underwent local wound care, antibiotics. He has only been able to intermittently bear weight. He has also been immobilizing with an external ankle-foot brace (Zhaopin). His pertinent significant past medical history includes the following: CAD, CABG (1992-[facility]-RED to the LAD), subsequent PTCA/BMS (LAD/LCx-2010 and LCx-2012), status post AVR (1992-[facility]-23 mm [place] mechanical aortic valve prosthesis), atrial fibrillation, hyperlipidemia, and hypertension. He is currently bridged with 60 mg of enoxaparin every 12 hours. FOR[facility]LY [facility], [facility]–1983 Medical History Ambulates with cane Anemia due to chronic blood loss Arthritis Atherosclerotic heart disease of [place] coronary artery without angina pectoris Back pain Cardiology follow-up encounter Chronic cough Chronic pain syndrome Chronic systolic (congestive) heart failure COPD (chronic obstructive pulmonary disease) COPD (chronic obstructive pulmonary disease) Difficulty swallowing Essential hypertension Gastric reflux High cholesterol History of atrial fibrillation History of CHF (congestive heart failure) History of echocardiogram History of edema History of GI bleed History of heart attack History of pain when walking History of stress test Hx of fracture of ankle Hx of fracture of ankle Hypertension Injury of back Ischemic cardiomyopathy skilled nursing current use of anticoagulant Non-rheumatic tricuspid valve insufficiency Paroxysmal atrial fibrillation Pure hypercholesterolemia Restless legs Secondary pulmonary arterial hypertension Shortness of breath on exertion Smoker Spinal stenosis of lumbar region TIA (transient ischemic attack) Tobacco use disorder Uncontrolled pain Wears dentures Wears glasses Home Medications rosuvastatin 40 mg PO QHS 07/15/13 [History Last Taken 06/03/18] ferrous sulfate 325 mg PO BIDCM 09/13/15 [History Last Taken 06/04/18] albuterol sulfate 1 puff INHALATION Q4H PRN PRN 09/25/15 [History Last Taken 06/04/18] cholecalciferol (vitamin D3) 2,000 unit PO DAILY 09/25/15 [History Last Taken 06/04/18] aspirin 81 mg PO DAILY@0800 06/24/16 [History Last Taken 06/04/18] folic acid 1 mg PO QHS 06/24/16 [History Last Taken 06/03/18] ipratropium-albuterol 3 ml INHALATION Q4H PRN PRN #30 ampul.neb 11/02/16 [Rx Last Taken 06/04/18] isosorbide mononitrate 30 mg tablet,extended release 24 hr 30 mg PO QAM 11/21/17 [History Last Taken 06/04/18] pantoprazole 40 mg tablet,delayed release 40 mg PO BID tab 01/02/18 [History Last Taken 06/04/18] warfarin 5 mg tablet 5 mg PO SUTUTHSA tab 01/02/18 [History Last Taken 06/04/18] warfarin 7.5 mg tablet 7.5 mg PO MOWEFR tab 01/02/18 [History Last Taken 06/03/18] zolpidem 10 mg PO QHS 05/26/18 [History Last Taken 06/03/18] pregabalin 75 mg PO TID 07/28/18 [History Last Taken Unknown] metoprolol tartrate 25 mg tablet 12.5 mg PO BID tab 11/26/19 [History Last Taken Unknown] nitroglycerin 0.4 mg sublingual tablet 0.4 mg SUBLINGUAL Q5M PRN #30 tab 05/25/21 [Rx Last Taken Unknown] amoxicillin-pot clavulanate [Augmentin] 1 tab PO BID 7 Days #14 tab 06/03/21 [Rx Last Taken Unknown] mometasone [Asmanex HFA] 2 puff INHALATION BID 06/18/21 [History Last Taken Unknown] tiotropium-olodaterol [Stiolto Respimat] 1 puff INHALATION DAILY 06/18/21 [History Last Taken Unknown] enoxaparin 60 mg/0.6 mL subcutaneous syringe 60 mg SUBCUT Q12H #6 ml 06/19/21 [Rx Last Taken Unknown] furosemide 40 mg PO DAILY 06/21/21 [History Last Taken Unknown] Allergy/AdvReac Type Severity Reaction Status Date / Time No Known Allergies Allergy Verified 06/21/21 18:50 Family History Son , age 44 from [place] CAD (coronary artery disease) Myocardial infarction Sudden cardiac Brother CAD (coronary artery disease) Pt states all nine of his siblings have heart problems Sister CAD (coronary artery disease) Patient states all nine of his siblings have heart problems Surgical History History of coronary artery stent placement (~06/28/11) History of left heart catheterization History of lumbar fusion History of mechanical aortic valve replacement (~03/27/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) Social History Smoking Status: Current every day smoker tobacco type: cigarettes ROS Constitutional Constitutional: Denies chills or fever(s) Cardiovascular Cardiovascular: Denies chest pain Respiratory/Chest Respiratory/Chest: Reports dry cough; Denies cough Musculoskeletal Musculoskeletal: Reports extremity pain Integumentary Integumentary: Reports wounds Neurologic Neurologic: Denies numbness Hematologic/Lymphatic Hematologic/Lymphatic: Reports easy bruising Vital Signs Vital Signs Vital Signs: 07/02/21 12:01 Temperature 99.0 F Temperature Source Temporal Pulse Rate 73 Respiratory Rate 16 Respiratory Pattern Normal Blood Pressure 122/80 H Blood Pressure Mean 94 Blood Pressure Source Monitor Blood Pressure Position Semi-Fowlers Blood Pressure Location Left Arm Pulse Ox 95 Oxygen Delivery Method Room Air Weight Weight: 77 kg Body Mass Index (BMI) 24.3 Physical Exam Const alert, oriented x3 and no apparent distress General Appearance: cooperative HEENT normocephalic Mouth: oral and palatal mucosa normal Eyes PERRL and EOMs intact bilaterally Extremity Extremity Narrative: No calf tenderness Diminished pulses Muscle wasting noted Compartments remain soft to palpate General Extremity: edema and no tenderness to palpation of joints or extremities; Negative for cyanosis Skin Skin Narrative: no purulence, no streaking, no odor. Skin discontinuity with positive probe to plate noted to lateral ankle. Now he is postoperative with sutures intact and skin edges reapproximated well to medial and lateral ankle. 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 He is under the management of infectious disease in the outpatient setting, and continues on oral Augmentin. Medical records have been requested to confirm the exact plan. He was admitted for postoperative antibiotics and pain control. To keep dressing clean, dry, and intact. It is okay to weight-bear as tolerated. Postoperative x-rays were reviewed prior to leaving the operating room which demonstrate adequate successful hardware removal without acute injuries. Bone biopsy was sent to both microbiology and pathology and the results are pending. His cardiac history is noted and he is currently bridged to heparin. He'll resume bridging back to Coumadin after discharge in which Dr. Bearden's office weekly contacted to coordinate this. Occupational and physical herapy will see him tomorrow. He has a history of chronic pain and pain medications were ordered oral and IV if needed. Hospitalist will be asked in consultation due to his complex medical history. He appears to be stable overall at this time. Please do not hesitate to call if you've any questions. Mary Alice Villarreal DPM, [facility]
[2021-07-02] MEDS: Bupivacaine Mpf 0.5% 30 ML VIAL (14:10)
[2021-07-02] MEDS: Lidocaine 1% (30 ml sdv) 30 ML Vial (14:10)
--- NOTE | 2021-07-02 15:05 | BON_PTH ---
PATIENT: REBECCA ARRIOLA I LOC: MS3 U#:[id number] AGE/SX: 81/M ROOM: RI306 RE07/02/[address]: Dr. Dania Sellers MD : 1940 BED: 1 DIS: 07/03/2021 SPEC #: [id number] RECD: 07/02/21 15:15 STATUS: ANYI REStefan #: [id number] ANGEL: 07/02/21 15:[address]: Mayr Alice Villarreal DEPT: SURGICAL PATHOLOGY RECD BY: [place] ENTERED: 07/03/21 09:46 SP TYPE: Bone OTHR DR: Dr. Mary Alice Villarreal, DPM MD Dr. Guillermo Lindsey MD Dr. Robert Leininger, MD Tissues: Bone of foot, NOS Procedures: Decalcification bone/plaque Surgery Specimen Level V Comments: @ Ordering doctor for DEC edited from to DR.JFASCI Dumont by KULDIP at 07/03/21 1133 @ Ordering doctor for SUIII edited from to DR.JFASCI Dumont by KULDIP at 07/03/21 1133 @ Ordering doctor for SUIV edited from to DR.JFASCI Dumont by KULDIP at 07/03/21 1133 @ Submitting doctor edited from to DR.JFASCI Dumont by KULDIP at 07/03/21 1133 HEADER OPERATION: Lower extremity hardware removal with bone biopsy PRE-OP DIAGNOSIS: Infected hardware left ankle TISSUE SUBMITTED: Left ankle bone biopsy MICROSCOPIC DIAGNOSIS Left ankle bone, biopsy: No pathologic change. See comment. AM:marcella 07/08/2021 COMMENT There is no evidence of osteomyelitis. Clinical correlation is suggested. MICROSCOPIC DESCRIPTION Slides are reviewed. GROSS DESCRIPTION Received in fixative is one container labeled with the patient's name and designated left ankle bone biopsy. The specimen consists of a cylindrical fragment of frausto bone measuring 0.7 cm in length and 0.2 cm in diameter. The specimen is submitted in its entirety in one cassette after decalcification. / AM:marcella 07/03/21 TC:5 CPT: 32543, 12457
--- NOTE | 2021-07-02 15:29 | PCM.OPRPT ---
Problems Associated Problem List Diagnoses (1) Ankle pain, left: (2) Infected hardware in left leg: Report of Operation Date of Procedure: 07/02/21 Pre-Operative Diagnosis: Left infected ankle hardware Left ankle pain Post-Operative Diagnosis: Left infected ankle hardware Left ankle pain Surgery/Procedure Performed:: 1. Removal of hardware left ankle 2. Bone biopsy of fibula Description of Surgical Findings:: Hemostasis: Well-padded pneumatic left thigh tourniquet, 315 mmHg, 60 minutes Materials: 2-0 Vicryl, 3-0 nylon Complications: None Specimens were sent to microbiology and pathology The patient tolerated the procedure and anesthesia well. The patient was transported to the PACU with vital signs stable and vascular status intact to the surgical limb. To ice and elevate for pain and inflammation management. Postoperative x-rays were reviewed prior to leaving the operating room. Successful hardware removal as noted and there were no acute injuries or foreign bodies. It is okay for him to weight-bear as tolerated. He will keep his dressing clean, dry, and intact. He will be admitted to observation for postoperative pain control and infection hardware continued work-up. Postoperative orders were entered electronically. Surgeon: Mary Alice Villarreal ballet company artistic director: None (Wait Staff: Evans Martini, PGY2, DPM) Type of Anesthesia: General and Local (Preoperative: One-to-one mix 1% lidocaine plain and 0.5% Marcaine plain left ankle block local infiltrative fashion) Specimen's removed: Fibula bone biopsy sent to pathology Fibula bone biopsy sent to microbiology (aerobic, anaerobic, acid-fast, fungal) Drains: none Estimated Blood Loss (mL): < 100 mL Description of Procedure: Indications: This 81-year-old male with significant past medical history of CAD (EF 45%), CABG (1992-[facility]-RED to the LAD), subsequent PTCA/BMS (LAD/LCx-2010 and LCx-2012), status post AVR (1992-[facility]-23 mm [place] mechanical aortic valve prosthesis), atrial fibrillation, hyperlipidemia, and hypertension and a prior ankle fracture in 2018 which healed within normal range. He recently over the past year had recurrent ulcers with local infection and now recently with exposed hardware. He has failed other conservative measures including advanced imaging work-up, wound care, immobilization, offloading, and oral antibiotics. He continues to smoke. He presented to the operating room today for hardware removal and bone biopsy. He had recent invasive vascular studies which did not demonstrate any occlusive disease. He also has chronic pain and is under the care of pain management. Preoperative H&P were reviewed including his diagnostic data. There is no gross abnormalities noted with labs. His preoperative INR has been monitored as he has been bridged to 60 mg enoxaparin twice daily; managed by travel med surg rn office (Dr. Bearden). His INR today is 1.7. He was cleared by Dr. Pritchard. The preoperative indications, planned procedure, benefits, risk, anticipated healing time and management were reviewed. The patient understands and elects proceed with surgery at this time. No guarantees were made. The patient understands risk and complications include but are not limited to following: pain, swelling, scarring, need for further surgery, tendon contracture, transfer lesion, hardware failure, arthritis, need for further surgery, delayed or nonhealing, infection, blood clot, allergic reaction, loss of limb, function, or life. The informed surgical limb and consent were signed. I answered all the patient's questions. The patient also understands there is an inherent risk with being in the hospital and undergoing a procedure during the time of COVID-19 pandemic. The patient understands precautions are being taken to prevent transmission. This patient understands the benefits and risks of having a procedure at this time versus waiting in which the benefits are reasonable at this time. Procedure in detail: The patient was transported to the operating room via cart and placed on the operating room table in the supine position. Final verification of the patient, surgery, limb designation was performed via the timeout procedure. Well-padded pneumatic left thigh tourniquet was placed. IV antibiotics were held until after the bone biopsy was obtained. General anesthesia was initiated by the anesthesia team. The podiatry team administered the local anesthetic. The left lower extremity was prepped and draped in the usual aseptic manner. An Esmarch bandage was used to examine at the limb and the tourniquet was inflated at this time. Surgery proceeded as the following: Attention was directed to the lateral left ankle in which an 8 cm linear incision was made through the skin using the prior cicatrix. Care was taken to ellipse out the ulcer site that had a predebridement measurements of 4 x 4 x 4 mm and a post excisional debridement of 7 x 6 x 4 mm. Next, blunt dissection was next performed down to the plate and screws taking care to identify, protect, and retract all neurovascular structures at this point and throughout the remainder of surgery. The plate and screws were removed in total without difficulty. Additional stab incisions were made to the medial malleolus ankle site in which these additional two screws were removed as well without difficulty. These were disposed of according to hospital protocol. There was no purulence, necrosis, or deep tissue abnormalities seen. No acute injuries were identified. A Brenton needle biopsy kit was next used to obtain a distal fibula bone biopsy which this was sent to pathology and microbiology. The surgical wounds were copiously irrigated with normal saline. Antibiotics were administered at this time. Intraoperative fluoroscopy was utilized to confirm removal of all hardware, no foreign body, no osseous destruction, or acute injuries. The ankle mortise is well aligned in a rectus position. Deep closure was performed with Vicryl. The skin was reapproximated with nylon suture utilizing horizontal mattress and simple suture technique with care taken to utilize no touch technique due to his skin fragility. The tourniquet was deflated at this time and brisk capillary refill time was noted to all digits of the left foot. No pulsatile bleeding was noted and pressure was applied to maintain hemostasis. A dressing consisting of Betadine soaked Adaptic, 4 x 4's, Kerlix, abdominal pad and Nic wrap were applied. After procedure: The patient tolerated the procedure and anesthesia well. The patient was transported to the PACU with vital signs stable and vascular status intact to the surgical limb. He was advised to ice and elevate for pain and inflammation management. Postoperative x-rays were reviewed prior to leaving the operating room as noted. Postoperative orders were entered electronically. It is okay for him to weight-bear as tolerated. He'll work with physical and occupational therapy tomorrow. He will continue on antibiotics. I will evaluate him clinically tomorrow to confirm resolution of infection signs. Infectious disease was also reconsulted. He is currently on augmentin per outpatient infectious disease recommendation. Hospitalist was consulted for medical management and input is appreciated. It is noted he is currently on enoxaparin for bridge and his cardiology office will be contacted upon discharge to resume the Coumadin bridge with the home out reach program. Mary Alice Villarreal DPM, [facility] Grafts/Implants Used: none Complications none Admit VTE Documentation VTE Present on Admission: No VTE Mechan Device Prophylaxis: SCD's VTE Pharm Prophylaxis ordered?: Yes
--- NOTE | 2021-07-02 15:50 | RAD_ITS ---
EXAM: XR LEFT ANKLE COMPLETE, 3 OR MORE VIEWS CLINICAL INDICATION: s/p hardware removal ankle TECHNIQUE: Frontal, lateral and oblique views of the left ankle. This report was created using [employer] report generation technology. COMPARISON: 05/25/18 FINDINGS: BONES/JOINTS: There has been removal of the distal fibular sideplate. There has been removal of the 2 cortical screws transfixing the prior noted medial malleolus fracture. Overlying soft tissue swelling noted. Preservation of the joint space. No sclerotic or destructive changes observed. SOFT TISSUES: See above. RAD/Ankle min 3 Views IMPRESSION: There has been removal of the distal fibular sideplate. There has been removal of the 2 cortical screws transfixing the prior noted medial malleolus fracture. Overlying soft tissue swelling noted. Electronically Signed: John Vickers MD at 16:28 EST , Service support ,
[2021-07-02 16:15] LABS: Absolute Lymphocyte Count 0.39 X10^3/uL (0.83-4.51); Absolute Neutrophil Count 2.6 X10^3/uL (2.0-7.7); Basophil# 0.02 X10^3/uL; Basophil% 0.6 % (0-1); Eosinophil# 0.05 X10^3/uL; Eosinophils% 1.6 % (0-5); Hematocrit 29.2 % (40-54); Hemoglobin 8.7 g/dL (13.0-16.5); Lymphocyte # 0.39 X10^3/ul (0.83-4.51); Lymphocyte % 12.4 % (19-41); Mean Corp Hgb Conc 29.8 g/dL (32-36); Mean Corpuscular Hgb 30.9 pg (27.0-32.0); Mean Corpuscular Volume 103.5 fL (80-94); Monocyte# 0.12 X10^3/uL; Monocyte% 3.8 % (0-10); NRBC Flagged by Analyzer 0 % (0-5); Neutrophil # 2.56 X10^3/uL (2.7-7.7); Neutrophil % 81.3 % (47-70); POSITIVE DIFFERENTIAL YES; Platelet Count 111 K/mm3 (150-450); RBC Distribution Width CV 15.7 % (11.6-14.6); RBC Distribution Width SD 58.9 fl (35.1-43.9); Red Blood Count 2.82 M/mm3 (4.6-6.2); White Blood Count 3.2 K/mm3 (4.4-11.0)
[2021-07-02 16:20] LABS: Differential Indicated SCAN CRITERIA MET
--- NOTE | 2021-07-02 16:22 | CON.PCM.HO_ITS ---
Assessment & Plan Assessment/Plan (1) Ankle pain, left: (2) 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 Bone biopsy taken * Management as per primary team podiatry. * incentive spirometry. * PT/OT. Fall precautions * #History of A. fib * Coumadin has been on hold and patient was transitioned to subcu Lovenox 60 mg every 6. He is to resume this when okay with podiatry. * On metoprolol 12.5 mg twice daily. We will hold for now as patient is bradycardic. Will resume once it resolves * #Bradycardia: Patient's HR is in the 50s. Might be a sequelae of anesthesia after surgery. Will monitor for now. #Heart failure with reduced ejection fraction: Not in exacerbation. On furosemide. Will continue. #CAD s/p CABG: On aspirin and Imdur. Does not appear to be on statin. Not clear why. DVT prophylaxis: Currently on therapeutic Lovenox Thank you for the courtesy of the consult. We will continue to follow with you. Please contact hospitalist team with any questions or concerns. HPI Consult Data Date of Consult: 07/02/21 HPI Narrative HPI Narrative: REBECCA ARRIOLA, is a 81 M who was admitted to the podiatry service for infected hardware removal. He had open reduction and internal fixation of an ankle fracture on 04/07/2018. For the cause of the last year, patient had recurrent ulcers on the lateral ankle. Bone scan was negative for any infected hardware or osteomyelitis. Subsequently, he kept on having the recurrent ulcers with purulence and positive culture results and so he was wor ked up for osteomyelitis. He has an extensive past medical history which includes CAD s/p CABG in 1992 as well as chronic systolic heart failure and hypertension as well as atrial fibrillation and hypercholesterolemia. Patient had removal of the infected hardware of the left ankle on 07/02/2021 and hospitalist service was consulted for medical management. Per podiatry, patient transition to subcu Lovenox in preparation for surgery and had been taken off his Coumadin which he was on for thromboprophylaxis for A. fib. Patient was seen in PACU after surgery. He had no complaints and review of systems otherwise negative. He was noted to be mildly bradycardic but he was otherwise hemodynamically stable. [facility] Medical History Ambulates with cane Anemia due to chronic blood loss Arthritis Atherosclerotic heart disease of [place] coronary artery without angina pectoris Back pain Cardiology follow-up encounter Chronic cough Chronic pain syndrome Chronic systolic (congestive) heart failure COPD (chronic obstructive pulmonary disease) COPD (chronic obstructive pulmonary disease) Difficulty swallowing Essential hypertension Gastric reflux High cholesterol History of atrial fibrillation History of CHF (congestive heart failure) History of echocardiogram History of edema History of GI bleed History of heart attack History of pain when walking History of stress test Hx of fracture of ankle Hx of fracture of ankle Hypertension Injury of back 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 Non-rheumatic tricuspid valve insufficiency Paroxysmal atrial fibrillation Pure hypercholesterolemia Restless legs Secondary pulmonary arterial hypertension Shortness of breath on exertion Smoker Spinal stenosis of lumbar region TIA (transient ischemic attack) Tobacco use disorder Uncontrolled pain Wears dentures Wears glasses Home Medications rosuvastatin 40 mg PO QHS 07/15/13 [History Last Taken 06/03/18] ferrous sulfate 325 mg PO BIDCM 09/13/15 [History Last Taken 06/04/18] albuterol sulfate 1 puff INHALATION Q4H PRN PRN 09/25/15 [History Last Taken 06/04/18] cholecalciferol (vitamin D3) 2,000 unit PO DAILY 09/25/15 [History Last Taken 06/04/18] aspirin 81 mg PO DAILY@0800 06/24/16 [History Last Taken 06/04/18] folic acid 1 mg PO QHS 06/24/16 [History Last Taken 06/03/18] ipratropium-albuterol 3 ml INHALATION Q4H PRN PRN #30 ampul.neb 11/02/16 [Rx Last Taken 06/04/18] isosorbide mononitrate 30 mg tablet,extended release 24 hr 30 mg PO QAM 11/21/17 [History Last Taken 06/04/18] pantoprazole 40 mg tablet,delayed release 40 mg PO BID tab 01/02/18 [History Last Taken 06/04/18] warfarin 5 mg tablet 5 mg PO SUTUTHSA tab 01/02/18 [History Last Taken 06/04/18] warfarin 7.5 mg tablet 7.5 mg PO MOWEFR tab 01/02/18 [History Last Taken 06/03/18] zolpidem 10 mg PO QHS 05/26/18 [History Last Taken 06/03/18] pregabalin 75 mg PO TID 07/28/18 [History Last Taken Unknown] metoprolol tartrate 25 mg tablet 12.5 mg PO BID tab 11/26/19 [History Last Taken Unknown] nitroglycerin 0.4 mg sublingual tablet 0.4 mg SUBLINGUAL Q5M PRN #30 tab 05/25/21 [Rx Last Taken Unknown] amoxicillin-pot clavulanate [Augmentin] 1 tab PO BID 7 Days #14 tab 06/03/21 [Rx Last Taken Unknown] mometasone [Asmanex HFA] 2 puff INHALATION BID 06/18/21 [History Last Taken Unknown] tiotropium-olodaterol [Stiolto Respimat] 1 puff INHALATION DAILY 06/18/21 [History Last Taken Unknown] enoxaparin 60 mg/0.6 mL subcutaneous syringe 60 mg SUBCUT Q12H #6 ml 06/19/21 [Rx Last Taken Unknown] furosemide 40 mg PO DAILY 06/21/21 [History Last Taken Unknown] Allergy/AdvReac Type Severity Reaction Status Date / Time No Known Allergies Allergy Verified 06/21/21 18:50 Family History Son , age 44 from [place] CAD (coronary artery disease) Myocardial infarction Sudden cardiac Brother CAD (coronary artery disease) Pt states all nine of his siblings have heart problems Sister CAD (coronary artery disease) Patient states all nine of his siblings have heart problems Surgical History History of coronary artery stent placement (~06/28/11) History of left heart catheterization History of lumbar fusion History of mechanical aortic valve replacement (~03/27/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) Social History Smoking Status: Current every day smoker tobacco type: cigarettes ROS Constitutional Constitutional: Denies anorexia, change in weight, chills, fatigue, fever(s), malaise or weakness Eyes Eyes: Denies change in vision ENT HEENT: Denies dysphagia or headache(s) Cardiovascular Cardiovascular: Denies chest pain, dyspnea on exertion, edema, lightheadedness, orthopnea, palpitations, rapid heart rate or syncope Respiratory/Chest Respiratory/Chest: Denies cough, productive cough, shortness of breath at rest or shortness of breath with exertion Gastrointestinal Gastrointestinal: Denies abdominal pain, nausea or vomiting Musculoskeletal Musculoskeletal: Denies arthralgias, joint pain, joint stiffness or myalgias Neurologic Neurologic: Denies confusion, dizziness, focal weakness, headache(s) or seizures Psychiatric Psychiatric: Denies anxiety Physical Exam Const alert, oriented x3 and no apparent distress HEENT normocephalic, head/scalp atraumatic, hearing grossly normal bilaterally and moist oral mucous membranes Eyes PERRL, EOMs intact bilaterally and conjunctivae normal Neck no lymphadenopathy and supple Resp normal respiratory effort, no use of accessory muscles and clear to auscultation bilaterally Cardio regular rate, regular rhythm, S1 normal heart sound, S2 normal heart sound and no murmurs GI normal to inspection, nondistended, normoactive bowel sounds, soft to palpation, non-tender and non-distended Extremity Extremity Narrative: intact dressing over left ankle Skin no rashes or lesions noted Neuro oriented x3, CN's II-XII intact bilaterally and moves all extremities Sensorium / Orientation: awake and alert Psych affect normal Lab / Micro Data Result Diagrams: 07/02/21 15:52 Labs: Laboratory Results - last 24 hr 07/02/21 15:52: WBC 3.2 L, RBC 2.82 L, Hgb 8.7 L, Hct 29.2 L, MCV 103.5 H, MCH 30.9, MCHC 29.8 L, RDW Std Deviation 58.9 H, RDW Coeff of Kaly[place] 15.7 H, Plt Count 111 L, MPV 11.0, Immature Gran % (Auto) 0.300, Neut % (Auto) 81.3 H, Lymph % (Auto) 12.4 L, [place] % (Auto) 3.8, Eos % (Auto) 1.6, Baso % (Auto) 0.6, Absolute Neuts (auto) 2.6, Absolute Lymphs (auto) 0.39 L, Nucleated RBC % 0 Micro: Microbiology 07/02/21 11:41 Interface Orders SARS-CoV-2 Antigen (Rapid) - Final Radiology Impression Ankle X-Ray 07/02/21 13:30 IMPRESSION: Fluoroscopic assistance images were obtained. Dictation for documentation purposes only. Electronically Signed: John Vickers MD at 15:23 EST , Service support , Charges/Coding Visit Charges Office Visits / Consults: [id number] IP Consult L4
[2021-07-02 16:42] LABS: CRP 5.04 mg/L (0.0-3.0)
[2021-07-02 16:45] LABS: Differential Comment SCANNED; Erythrocyte Sedimentation Rate 17 mm/hr (0-20)
[2021-07-02] MEDS: oxyCODONE 5 MG Tablet PO (19:16)
[2021-07-02] MEDS: Acetaminophen 325 MG Tablet 650 MG PO (19:16)
[2021-07-02] MEDS: Folic Acid 1 MG Tablet PO (22:15)
[2021-07-02] MEDS: Atorvastatin Calcium 80 MG Tablet PO (22:15)
[2021-07-02] MEDS: Pantoprazole Sodium 40 MG Tablet PO (22:15)
[2021-07-02] MEDS: Amox/Clavulanate 875 MG Tablet PO (23:28)
--- NOTE | 2021-07-03 00:11 | PCS.PANDOC ---
PANDEMIC DOCUMENTATION INITIATED: Date: 03/02/2021 Time: 190
[2021-07-03] MEDS: oxyCODONE 5 MG Tablet PO ×3 (01:19→15:53)
[2021-07-03] MEDS: Acetaminophen 325 MG Tablet 650 MG PO (01:20)
[2021-07-03 04:30] VITALS: BP 107/66; PULSE 64; RESP 18; TEMP 36.4; O2SAT 97
--- NOTE | 2021-07-03 05:53 | PN_ITS ---
Subjective Subjective This 81-year-old male was seen bedside postoperative day #1 left ankle hardware removal and fibula bone biopsy for work-up of infected hardware and osteomyelitis. He denies fever, chill, nausea, vomiting, calf pain, shortness of breath, chest pain. He rates his pain as a 4 out of 10. He is eager to return home today. Objective Data Objective Data Vital Signs: Vital Signs Temp Pulse Resp BP Pulse Ox 97.6 F L 64 18 107/66 97 07/03/21 04:30 07/03/21 04:30 07/03/21 04:30 07/03/21 04:30 07/03/21 04:30 Oxygen Flow Rate (L/min) 2 Oxygen Delivery Method Room Air Weight: 77 kg Body Mass Index (BMI) 24.3 Intake & Output: Intake and Output for Last 24 Hours 07/01/21 07/02/21 07/03/21 23:59 23:59 23:59 Intake Total 216.5 / 216.5 Output Total 50 / 50 Balance 216.5 / 166.5 -50 / -50 Lab / Micro Data Result Diagrams: 07/02/21 15:52 Labs: Laboratory Results - last 24 hr 07/02/21 15:52: WBC 3.2 L, RBC 2.82 L, Hgb 8.7 L, Hct 29.2 L, MCV 103.5 H, MCH 30.9, MCHC 29.8 L, RDW Std Deviation 58.9 H, RDW Coeff of [place] 15.7 H, Plt Count 111 L, MPV 11.0, Immature Gran % (Auto) 0.300, Neut % (Auto) 81.3 H, Lymph % (Auto) 12.4 L, [place] % (Auto) 3.8, Eos % (Auto) 1.6, Baso % (Auto) 0.6, Absolute Neuts (auto) 2.6, Absolute Lymphs (auto) 0.39 L, Nucleated RBC % 0, Differential Comment SCANNED, Diff Path Review November, ESR 17 07/02/21 15:52: C-React Prot Ext Range 5.04 H Micro: Microbiology 07/02/21 11:41 Interface Orders SARS-CoV-2 Antigen (Rapid) - Final Radiography Diagnostic Testing: Radiology Impression Ankle X-Ray 07/02/21 13:30 IMPRESSION: Fluoroscopic assistance images were obtained. Dictation for documentation purposes only. Electronically Signed: John Vickers MD at 15:23 EST , Service support , Ankle X-Ray 07/02/21 15:50 IMPRESSION: There has been removal of the distal fibular sideplate. There has been removal of the 2 cortical screws transfixing the prior noted medial malleolus fracture. Overlying soft tissue swelling noted. Electronically Signed: John Vickers MD at 16:28 EST , Service support , Physical Exam Const alert, oriented x3 and no apparent distress General Appearance: cooperative Extremity Extremity Narrative: No calf tenderness (negative Adriana and Ibanez sign) Diminished pulses Muscle wasting noted Compartments remain soft to palpate Pain to palpate surgical site as expected. General Extremity: edema and no tenderness to palpation of joints or extremities; Negative for cyanosis Skin Skin Narrative: no purulence, no streaking, no odor. Incision to the lateral ankle and small stab incisions to medial ankle are intact and well aligned with sutures in place. There is no gapping, necrosis, purulence on expression, or erythema. Neuro Neuro Narrative: Epicritic sensation is intact to light touch to lower extremity, left Assessment & Plan Assessment/Plan (1) Ankle pain, left: (2) Infected hardware in left leg: (3) Anticoagulant long-term use: PLAN: This patient has infected hardware and it was removed surgically today and an additional fibula bone biopsy was obtained for further osteomyelitis work-up. He is under the management of infectious disease in the outpatient setting, and continues on oral Augmentin. Infectious disease was asked to be on consult again for continuity of care. Dr. Weller's input will be greatly appreciated. Clinically and surgically, there is no purulence or local signs of infection. Bone biopsy was sent to both microbiology and pathology and the results are pending. He remains afebrile with vital signs stable. ESR 17. CRP 5.04. No leukocytosis. Pancytopenia noted. Dressing changed today with Adaptic soaked in Betadine, 4 x 4, gauze, abdominal pad, Kerlix, Nic wrap. To keep dressing clean, dry, and intact. It is okay to weight-bear as tolerated. I recommend use of assistive device. He has a walker at home. He will work with PT and OT today. His cardiac history is noted. He is on chronic anticoagulation with Coumadin plan for treatment of atrial fibrillation and will resume bridging back to Coumadin once he is discharged from the hospital under the management of Dr. Bearden's office including the home outreach program. I have their contact information and we will alert them at time of discharge. He has a history of chronic pain and pain medications were ordered oral and IV if needed. Currently controlled today. Medical management per hospitalist is greatly appreciated. Medications adjusted by medical hospitalist for bradycardia management. Potential discharge home later today pending his therapy assessment and antibiotic recommendations. He appears to be doing well so far. Please do not hesitate to call if you have any questions. Mary Alice Villarreal DPM, [facility] [phone]
[2021-07-03 07:10] VITALS: PULSE 53; RESP 16; O2SAT 97
[2021-07-03] MEDS: Budesonide Respules 0.5 MG/2 ML AMPUL.NEB. INHALATION (07:10)
[2021-07-03 08:00] VITALS: BP 113/56; PULSE 55; RESP 18; TEMP 36.5; O2SAT 96
[2021-07-03] MEDS: Umeclidinium Brm/Vilanterol 62.5-25 mcg Inh 1 PUFF INHALATION (08:03)
[2021-07-03] MEDS: Amox/Clavulanate 875 MG Tablet PO (08:04)
[2021-07-03] MEDS: Pantoprazole Sodium 40 MG Tablet PO (08:05)
[2021-07-03] MEDS: Cholecalciferol (VIT D3) 25 MCG TABLET (1,000 UNITS) 50 MCG PO (08:05)
[2021-07-03] MEDS: Ferrous Sulfate 325 MG Tablet PO (08:05)
[2021-07-03] MEDS: Isosorbide Mononitrate 30 MG Tablet PO (08:05)
--- NOTE | 2021-07-03 11:39 | PN.HOSP_ITS ---
Subjective Subjective Patient seen and examined. He has no complaints this morning. His dressing was changed by podiatry today. He says he feels like his food gets stuck in his throat sometimes, but this has been going on even at home. Review of systems is otherwise negative. He has remained hemodynamically stable. Objective Data Objective Data Vital Signs: Vital Signs Temp Pulse Resp BP Pulse Ox 97.7 F L 55 L 18 113/56 L 96 07/03/21 08:00 07/03/21 08:00 07/03/21 08:00 07/03/21 08:00 07/03/21 08:00 Oxygen Flow Rate (L/min) 2 Oxygen Delivery Method Room Air Weight: 169 lb 12.095 oz Body Mass Index (BMI) 24.3 Intake & Output: Intake and Output for Last 24 Hours 07/01/21 07/02/21 07/03/21 23:59 23:59 23:59 Intake Total 216.5 / 216.5 Output Total 400 / 400 Balance 216.5 / 166.5 -400 / -400 Lab / Micro Data Result Diagrams: 07/02/21 15:52 Labs: Laboratory Results - last 24 hr 07/02/21 15:52: WBC 3.2 L, RBC 2.82 L, Hgb 8.7 L, Hct 29.2 L, MCV 103.5 H, MCH 30.9, MCHC 29.8 L, RDW Std Deviation 58.9 H, RDW Coeff of Kalyan 15.7 H, Plt Count 111 L, MPV 11.0, Immature Gran % (Auto) 0.300, Neut % (Auto) 81.3 H, Lymph % (Auto) 12.4 L, [place] % (Auto) 3.8, Eos % (Auto) 1.6, Baso % (Auto) 0.6, Absolute Neuts (auto) 2.6, Absolute Lymphs (auto) 0.39 L, Nucleated RBC % 0, Differential Comment SCANNED, Diff Path Review November foll, ESR 17 07/02/21 15:52: C-React Prot Ext Range 5.04 H Micro: Microbiology 07/02/21 11:41 Interface Orders SARS-CoV-2 Antigen (Rapid) - Final Radiography Diagnostic Testing: Radiology Impression Ankle X-Ray 07/02/21 13:30 IMPRESSION: Fluoroscopic assistance images were obtained. Dictation for documentation purposes only. Electronically Signed: John Vickers MD at 15:23 EST , Service support , Ankle X-Ray 07/02/21 15:50 IMPRESSION: There has been removal of the distal fibular sideplate. There has been removal of the 2 cortical screws transfixing the prior noted medial malleolus fracture. Overlying soft tissue swelling noted. Electronically Signed: John Vickers MD at 16:28 EST , Service support , Physical Exam Const alert, oriented x3 and no apparent distress Exam Limitations: no limitations HEENT normocephalic, head/scalp atraumatic, hearing grossly normal bilaterally and moist oral mucous membranes Head and Scalp: normocephalic Eyes PERRL, EOMs intact bilaterally and conjunctivae normal Neck no lymphadenopathy and supple Resp normal respiratory effort, no retractions, no use of accessory muscles and clear to auscultation bilaterally Cardio regular rate, regular rhythm, S1 normal heart sound, S2 normal heart sound and no murmurs GI normal to inspection, nondistended, normoactive bowel sounds, soft to palpation, non-tender and non-distended Extremity Extremity Narrative: intact dressing over left ankle Peripheral Pulses: Yes pulses 2+ throughout Skin no rashes or lesions noted Neuro oriented x3, CN's II-XII intact bilaterally and moves all extremities Sensorium / Orientation: awake and alert Psych affect normal Assessment & Plan Assessment/Plan (1) Ankle pain, left: (2) 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 Bone biopsy taken * Management as per primary team podiatry. * incentive spirometry. * PT/OT. Fall precautions * #History of A. fib * Coumadin has been on hold and patient was transitioned to subcu Lovenox 60 mg every 12 hours. He is to resume this when okay with podiatry. * On metoprolol 12.5 mg twice daily. We will hold for now as patient is bradycardic. Will resume once it resolves * #Bradycardia: * HR remains in the mid and high 50s. on metoprolol 12.5mg bid. Will continue holding for now. #Heart failure with reduced ejection fraction: * Not in exacerbation. On furosemide. #CAD s/p CABG: On aspirin and Imdur. Does not appear to be on statin. Not clear why. DVT prophylaxis: to resume lovenox when ok with podiatry. Charges/Coding Visit Charges Inpatient E&M: 52007 Subs Hosp L2
--- NOTE | 2021-07-03 11:55 | CASEMGMT ---
SURY CM in to pt room, pt sitting up in chair. Pt states he worked with therapy today and did well. No additional therapy recommended. Pt denies need any assistance at home. He states he has a dtr and grandson close by who can assist him. Pt has a walker and rollator at home. No further needs identified at this time.
[2021-07-03 14:06] VITALS: BP 114/56; PULSE 62; RESP 18; TEMP 36.4; O2SAT 97
--- NOTE | 2021-07-03 14:19 | CASEMGMT ---
SURY CM in to discuss WALKER form with patient. RN CM explained WALKER form, patient voiced understanding. Pt signed form and filed in chart. Pt provided with a copy of signed WALKER form. Patient had no further questions or concerns at this time.
--- NOTE | 2021-07-03 14:42 | PCM.CONS.GEN ---
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 Prior cxs with Wilda fong. On augmentin, plan on 6 week course, will follow surg cxs. Will follow, thank you HPI Consult Data Date of Consult: 07/03/21 HPI Narrative HPI Narrative: REBECCA ARRIOLA, is a 81 M who presented for removal of infected hardware from L ankle. Taken to OR 07/[address] Villarreal, feeling ok but c/o pain in foot. No fever, no n/v/d. Full ROS performed and neg except as noted above. [facility] Medical History Ambulates with cane Anemia due to chronic blood loss Arthritis Atherosclerotic heart disease of zuni coronary artery without angina pectoris Back pain Cardiology follow-up encounter Chronic cough Chronic pain syndrome Chronic systolic (congestive) heart failure COPD (chronic obstructive pulmonary disease) COPD (chronic obstructive pulmonary disease) Difficulty swallowing Essential hypertension Gastric reflux High cholesterol History of atrial fibrillation History of CHF (congestive heart failure) History of echocardiogram History of edema History of GI bleed History of heart attack History of pain when walking History of stress test Hx of fracture of ankle Hx of fracture of ankle Hypertension Injury of back Ischemic cardiomyopathy pen[facility] current use of anticoagulant Non-rheumatic tricuspid valve insufficiency Paroxysmal atrial fibrillation Pure hypercholesterolemia Restless legs Secondary pulmonary arterial hypertension Shortness of breath on exertion Smoker Spinal stenosis of lumbar region TIA (transient ischemic attack) Tobacco use disorder Uncontrolled pain Wears dentures Wears glasses Home Medications rosuvastatin 40 mg PO QHS 07/15/13 [History Last Taken 06/03/18] ferrous sulfate 325 mg PO BIDCM 09/13/15 [History Last Taken 06/04/18] albuterol sulfate 1 puff INHALATION Q4H PRN PRN 09/25/15 [History Last Taken 06/04/18] cholecalciferol (vitamin D3) 2,000 unit PO DAILY 09/25/15 [History Last Taken 06/04/18] aspirin 81 mg PO DAILY@0800 06/24/16 [History Last Taken 06/04/18] folic acid 1 mg PO QHS 06/24/16 [History Last Taken 06/03/18] ipratropium-albuterol 3 ml INHALATION Q4H PRN PRN #30 ampul.neb 11/02/16 [Rx Last Taken 06/04/18] isosorbide mononitrate 30 mg tablet,extended release 24 hr 30 mg PO QAM 11/21/17 [History Last Taken 06/04/18] pantoprazole 40 mg tablet,delayed release 40 mg PO BID tab 01/02/18 [History Last Taken 06/04/18] warfarin 5 mg tablet 5 mg PO SUTUTHSA tab 01/02/18 [History Last Taken 06/04/18] warfarin 7.5 mg tablet 7.5 mg PO MOWEFR tab 01/02/18 [History Last Taken 06/03/18] zolpidem 10 mg PO QHS 05/26/18 [History Last Taken 06/03/18] pregabalin 75 mg PO TID 07/28/18 [History Last Taken Unknown] metoprolol tartrate 25 mg tablet 12.5 mg PO BID tab 11/26/19 [History Last Taken Unknown] nitroglycerin 0.4 mg sublingual tablet 0.4 mg SUBLINGUAL Q5M PRN #30 tab 05/25/21 [Rx Last Taken Unknown] mometasone [Asmanex HFA] 2 puff INHALATION BID 06/18/21 [History Last Taken Unknown] tiotropium-olodaterol [Stiolto Respimat] 1 puff INHALATION DAILY 06/18/21 [History Last Taken Unknown] enoxaparin 60 mg/0.6 mL subcutaneous syringe 60 mg SUBCUT Q12H #6 ml 06/19/21 [Rx Last Taken Unknown] furosemide 40 mg PO DAILY 06/21/21 [History Last Taken Unknown] amoxicillin-pot clavulanate [Augmentin] 1 tab PO BID 40 Days #80 tab 07/03/21 [Rx Last Taken Unknown] Allergy/AdvReac Type Severity Reaction Status Date / Time No Known Allergies Allergy Verified 06/21/21 18:50 Family History Son , age 44 from [place] CAD (coronary artery disease) Myocardial infarction Sudden cardiac Brother CAD (coronary artery disease) Pt states all nine of his siblings have heart problems Sister CAD (coronary artery disease) Patient states all nine of his siblings have heart problems Surgical History History of coronary artery stent placement (~06/28/11) History of left heart catheterization History of lumbar fusion History of mechanical aortic valve replacement (~03/27/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) Social History Smoking Status: Current every day smoker tobacco type: cigarettes Physical Exam Const alert and no apparent distress General Appearance: cooperative Exam Limitations: no limitations HEENT normocephalic and head/scalp atraumatic Eyes PERRL and EOMs intact bilaterally Neck supple and No nodes Resp normal air movement and clear to auscultation bilaterally Cardio regular rate and regular rhythm GI soft to palpation, non-tender and non-distended Extremity no clubbing, cyanosis or edema Skin no rashes or lesions noted Skin Narrative: L ankle wrapped Neuro CN's II-XII intact bilaterally Lab / Micro Data Result Diagrams: 07/02/21 15:52 Labs: Laboratory Results - last 24 hr 07/02/21 15:52: WBC 3.2 L, RBC 2.82 L, Hgb 8.7 L, Hct 29.2 L, MCV 103.5 H, MCH 30.9, MCHC 29.8 L, RDW Std Deviation 58.9 H, RDW Coeff of Kalyan 15.7 H, Plt Count 111 L, MPV 11.0, Immature Gran % (Auto) 0.300, Neut % (Auto) 81.3 H, Lymph % (Auto) 12.4 L, [place] % (Auto) 3.8, Eos % (Auto) 1.6, Baso % (Auto) 0.6, Absolute Neuts (auto) 2.6, Absolute Lymphs (auto) 0.39 L, Nucleated RBC % 0, Differential Comment SCANNED, Diff Path Review November foll, ESR 17 07/02/21 15:52: C-React Prot Ext Range 5.04 H Micro: Microbiology 07/02/21 Unknown Wound - Ankle Gram Stain - Final 07/02/21 Unknown Wound - Ankle Wound Culture - Preliminary No growth-Final to follow 07/02/21 11:41 Interface Orders SARS-CoV-2 Antigen (Rapid) - Final Radiology Impression Ankle X-Ray 07/02/21 13:30 IMPRESSION: Fluoroscopic assistance images were obtained. Dictation for documentation purposes only. Electronically Signed: John Vickers MD at 15:23 EST , Service support , Ankle X-Ray 07/02/21 15:50 IMPRESSION: There has been removal of the distal fibular sideplate. There has been removal of the 2 cortical screws transfixing the prior noted medial malleolus fracture. Overlying soft tissue swelling noted. Electronically Signed: John Vickers MD at 16:28 EST , Service support ,
[2021-07-03] MEDS: Morphine 2 MG/ML Syringe IV (15:25)
--- NOTE | 2021-07-03 16:04 | PCM.DC ---
Discharge Instructions Diet Discharge Diet: No restrictions Activity Discharge Activity: May Not Drive (if on pain medications) and Use Walker Weight Bearing Status: Full weight bearing and Partial weight bearing Lifting Restrictions: if needed for pain control Keep extremity elevated above heart level: Left Leg Dressing / Incision Call your doctor if your incision/area has: Continuous Slow Oozing, Sudden Increased Bleeding, Increased Pain/ Swelling, Increased Redness, Foul Smelling Discharge and Swelling at the incision site Call your doctor if you observe: Fever of 101 or Higher, Chest pain, Calf discomfort and Uncontrolled pain Change Dressing in: do not change dressing Cleanse incision/area with: Keep Dressing Clean & Dry Follow Up Care Please Follow Up With: Mary Alice Villarreal DPM When: next week. Call [phone] sooner if questions or concerns. Test Results: Test results from this visit will be discussed in further detail at your follow-up appointment, if applicable. Discharge Plan Admission Admit Date/Time: 07/02/21 13:28 Primary Reason for Your Visit: s/p infected hardware removal Attending Provider: Dania Sellers Primary Care Provider: Guillermo Pritchard Consulting Providers: Dania Sellers ; Torito Weller Instructions Additional Instructions / Restrictions: Weight bear as tolerated left lower extremity. If too much pain, use walker to go partial weightbearing status. Keep dressing clean, dry, and intact until follow up. Discharge Orders/Prescriptions Prescriptions: New oxycodone-acetaminophen 7.5-325 mg tablet 1 tab PO Q6H PRN (Reason: pain) 7 Days Qty: 28 RF: 0 Continued amoxicillin-pot clavulanate [Augmentin] 875-125 mg tablet 1 tab PO BID 40 Days Qty: 80 RF: 0 No Action isosorbide mononitrate 30 mg tablet extended release 24 hr 30 mg PO QAM RF: 0 warfarin 5 mg tablet 5 mg PO SUTUTHSA RF: 0 warfarin 7.5 mg tablet 7.5 mg PO MOWEFR RF: 0 metoprolol tartrate 25 mg tablet 12.5 mg PO BID RF: 0 nitroglycerin 0.4 mg tablet, sublingual 0.4 mg SUBLINGUAL Q5M PRN (Reason: Chest Pain) Qty: 30 RF: 0 rosuvastatin 40 MG tablet 40 mg PO QHS RF: 0 pantoprazole 40 mg tablet,delayed release (DR/EC) 40 mg PO BID RF: 0 ferrous sulfate 325 MG tablet 325 mg PO BIDCM RF: 0 cholecalciferol (vitamin D3) 1,000 UNIT tablet 2,000 unit PO DAILY RF: 0 albuterol sulfate 90 MCG aerosol powdr breath activated 1 puff INHALATION Q4H PRN PRN (Reason: Wheezing) RF: 0 aspirin 81 MG tablet 81 mg PO DAILY@0800 RF: 0 folic acid 1 MG tablet 1 mg PO QHS RF: 0 ipratropium-albuterol 3 ML solution for nebulization 3 ml INHALATION Q4H PRN PRN (Reason: sob/wheezing) Qty: 30 RF: 0 zolpidem 10 MG tablet 10 mg PO QHS RF: 0 pregabalin 75 MG capsule 75 mg PO TID RF: 0 Asmanex HFA 100 mcg/actuation Hfa Aerosol Inhaler 2 puff INHALATION BID RF: 0 Stiolto Respimat 2.5-2.5 mcg/actuation Mist 1 puff INHALATION DAILY RF: 0 furosemide 40 MG tablet 40 mg PO DAILY RF: 0 enoxaparin [Lovenox] 60 mg/0.6 mL syringe 60 mg subcut Q12H Qty: 6 RF: 1 Referrals / Follow Up: Mary Alice Villarreal DPM [STAFF PHYSICIAN] - In 1 Week (Call sooner if questions or concerns.) Guillermo Pritchard MD [Primary Care Provider] - Disposition Disposition (needs filled in before D/C Order can be placed): Home, Self Care
--- NOTE | 2021-07-03 17:39 | NURSING ---
Updated Dr. Sellers. She states its ok to dc patient.
[2021-07-03] MEDS: Enoxaparin 60 MG/0.6 ML Syringe SC (19:05)
--- NOTE | 2021-07-03 19:18 | NURSING ---
Verified with Dr. Villarreal that patient needs to take lovenox tonight and she states the outreach program will be following up with him regarding coumadin/INR, etc.
[2021-07-04 11:01] LABS: INR Fingerstick 1.7; Prothrombin Time Fingerstick 20.1 SEC (11.9-14.4)
[2021-07-06 10:20] LABS: Pathologist Review Reviewed
== END 2021-07-03 19:25 | disposition home or self-care (01) ==
LOC: SDC 16:20 → MS3 16:20
PROVIDERS: Admitting Provider Podiatrist; PCP Family Medicine; Referring Provider Podiatrist; Visit Provider Student in an Organized Health Care Education/Training Program
PROC: (CPT 20220; principal; 2021-07-02 13:15)
DX: T84.7XXA Infection and inflammatory reaction due to other internal orthopedic prosthetic devices, implants and grafts, initial encounter (principal); Y79.3 Surgical instruments, materials and orthopedic devices (including sutures) associated with adverse incidents; I25.10 Atherosclerotic heart disease of native coronary artery without angina pectoris; E78.5 Hyperlipidemia, unspecified; I48.0 Paroxysmal atrial fibrillation; D50.0 Iron deficiency anemia secondary to blood loss (chronic); I50.22 Chronic systolic (congestive) heart failure; I11.0 Hypertensive heart disease with heart failure; J44.9 Chronic obstructive pulmonary disease, unspecified; M25.572 Pain in left ankle and joints of left foot; K21.9 Gastro-esophageal reflux disease without esophagitis; I25.2 Old myocardial infarction; D61.818 Other pancytopenia; R00.1 Bradycardia, unspecified; I45.2 Bifascicular block; G89.4 Chronic pain syndrome; I27.21 Secondary pulmonary arterial hypertension; F17.210 Nicotine dependence, cigarettes, uncomplicated; Z79.899 Other long term (current) drug therapy; Z79.82 Long term (current) use of aspirin; Z95.1 Presence of aortocoronary bypass graft; Z95.2 Presence of prosthetic heart valve; Z79.01 Long term (current) use of anticoagulants
CPT/HCPCS: 01480; 20220; 20680; 36416; 73600; 73610; 76000; 85025; 85610; 85652; 86140; 87015; 87070; 87075; 87102; 87116; 87176; 87205; 87206; 87426; 88304; 88305; 88307; 88311; 93005; 94640; 96372; 96374; 97161; 97166; 99218; 99251; 99406; J7120; G0378; G0463; J2405

== ENCOUNTER 2021-07-04 01:42 | Emergency (ER) | payer OTHER, SELFPAY ==
[2021-07-04 01:44] VITALS: BP 137/67; PULSE 60; RESP 15; TEMP 36.5; O2SAT 100; BMI 25.0
--- NOTE | 2021-07-04 02:31 | EDS_ITS ---
HPI History of Present Illness Chief Complaint: Numb/Ting Informant: patient Onset/Context/Timing Onset: Days (2) Context: Gradual Onset Timing: Continuous Quality: Stabbing Location: Left ankle and foot Worsened by: Nothing Relieved by: Nothing Narrative Narrative: Patient presents with paresthesias to both feet that began 2 days ago. Patient states he has numbness over both feet. Patient states he has stabbing pain in his left ankle. Patient had recent removal of hardware from his left ankle. Patient denies any fevers or chills. Patient denies any discharge or drainage. Patient states that while he was in the ambulance tonight he had some pain in his chest and shortness of breath. Patient states this has resolved. [facility] Medical History Ambulates with cane Anemia due to chronic blood loss Arthritis Atherosclerotic heart disease of [place] coronary artery without angina pectoris Back pain Cardiology follow-up encounter Chronic cough Chronic pain syndrome Chronic systolic (congestive) heart failure COPD (chronic obstructive pulmonary disease) COPD (chronic obstructive pulmonary disease) Difficulty swallowing Essential hypertension Gastric reflux High cholesterol History of atrial fibrillation History of CHF (congestive heart failure) History of echocardiogram History of edema History of GI bleed History of heart attack History of pain when walking History of stress test Hx of fracture of ankle Hx of fracture of ankle Hypertension Injury of back Ischemic cardiomyopathy shelter current use of anticoagulant Non-rheumatic tricuspid valve insufficiency Paroxysmal atrial fibrillation Pure hypercholesterolemia Restless legs Secondary pulmonary arterial hypertension Shortness of breath on exertion Smoker Spinal stenosis of lumbar region TIA (transient ischemic attack) Tobacco use disorder Uncontrolled pain Wears dentures Wears glasses Home Medications rosuvastatin 40 mg PO QHS 07/15/13 [History Last Taken 06/03/18] ferrous sulfate 325 mg PO BIDCM 09/13/15 [History Last Taken 06/04/18] albuterol sulfate 1 puff INHALATION Q4H PRN PRN 09/25/15 [History Last Taken 06/04/18] cholecalciferol (vitamin D3) 2,000 unit PO DAILY 09/25/15 [History Last Taken 06/04/18] aspirin 81 mg PO DAILY@0800 06/24/16 [History Last Taken 06/04/18] folic acid 1 mg PO QHS 06/24/16 [History Last Taken 06/03/18] ipratropium-albuterol 3 ml INHALATION Q4H PRN PRN #30 ampul.neb 11/02/16 [Rx Last Taken 06/04/18] isosorbide mononitrate 30 mg tablet,extended release 24 hr 30 mg PO QAM 11/21/17 [History Last Taken 06/04/18] pantoprazole 40 mg tablet,delayed release 40 mg PO BID tab 01/02/18 [History Last Taken 06/04/18] warfarin 5 mg tablet 5 mg PO SUTUTHSA tab 01/02/18 [History Last Taken 06/04/18] warfarin 7.5 mg tablet 7.5 mg PO MOWEFR tab 01/02/18 [History Last Taken 06/03/18] zolpidem 10 mg PO QHS 05/26/18 [History Last Taken 06/03/18] pregabalin 75 mg PO TID 07/28/18 [History Last Taken Unknown] metoprolol tartrate 25 mg tablet 12.5 mg PO BID tab 11/26/19 [History Last Taken Unknown] nitroglycerin 0.4 mg sublingual tablet 0.4 mg SUBLINGUAL Q5M PRN #30 tab 05/25/21 [Rx Last Taken Unknown] mometasone [Asmanex HFA] 2 puff INHALATION BID 06/18/21 [History Last Taken Unknown] tiotropium-olodaterol [Stiolto Respimat] 1 puff INHALATION DAILY 06/18/21 [History Last Taken Unknown] enoxaparin 60 mg/0.6 mL subcutaneous syringe 60 mg SUBCUT Q12H #6 ml 06/19/21 [Rx Last Taken Unknown] furosemide 40 mg PO DAILY 06/21/21 [History Last Taken Unknown] amoxicillin-pot clavulanate [Augmentin] 1 tab PO BID 40 Days #80 tab 07/03/21 [Rx Last Taken Unknown] oxycodone-acetaminophen 1 tab PO Q6H PRN 7 Days #28 tab 07/03/21 [Rx Last Taken Unknown] Allergy/AdvReac Type Severity Reaction Status Date / Time No Known Allergies Allergy Verified 06/21/21 18:50 Family History Son , age 44 from [place] CAD (coronary artery disease) Myocardial infarction Sudden cardiac Brother CAD (coronary artery disease) Pt states all nine of his siblings have heart problems Sister CAD (coronary artery disease) Patient states all nine of his siblings have heart problems Surgical History History of coronary artery stent placement (~06/28/11) History of left heart catheterization History of lumbar fusion History of mechanical aortic valve replacement (~03/27/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) Social History Smoking Status: Current every day smoker tobacco type: cigarettes ROS ROS ED Constitutional Constitutional ED: Denies chills or fever(s) Eyes Eyes: Denies blurry vision or change in vision ENT ENT ED: Denies rhinorrhea or sore throat Cardiovascular Cardiovascular: Reports chest pain; Denies palpitations Respiratory/Chest Respiratory/Chest: Reports dyspnea; Denies cough Gastrointestinal Gastrointestinal: Denies nausea or vomiting Genitourinary Genitourinary ED: Denies dysuria or hematuria Musculoskeletal Musculoskeletal: Denies back pain or neck pain Integumentary Denies abscess or rash Neurologic Neurologic: Reports paresthesias; Denies headache(s) or weakness Allergic/Immunologic Allergic/Immunologic ED: Denies mouth swelling or urticaria EXAM Physical Exam Const Vital Signs: 07/04/21 01:44 Temperature 97.7 F L Temperature Source Oral Pulse Rate 60 Respiratory Rate 15 Blood Pressure 137/67 H Blood Pressure Mean 90 Pulse Ox 100 Oxygen Delivery Method Room Air Positive well nourished and well developed General Appearance ED: well developed HEENT Reports moist mucous membranes Resp normal respiratory effort and clear to auscultation bilaterally Cardio regular rate and regular rhythm GI non-tender Palpation: soft Extremity Extremity Narrative: There is some dried blood noted on the dressings on his left ankle. There is no active bleeding. The dressings were removed. There is no erythema or warmth. There is no discharge or drainage. There are no signs of any infection in the wound. Sensation was intact to light touch in all digits bilaterally. Pedal pulses were equal bilaterally. Neuro oriented x3, CN's II-XII intact bilaterally and no sensory deficits noted Sensorium / Orientation: alert Motor Exam: strength 5/5 throughout Psych mental status grossly normal MDM MDM MDM Narrative Medical decision making narrative: X-rays of the left ankle were obtained. There are 3 views. On my interpretation, there is no acute fracture. There is no dislocation. There is some mild soft tissue swelling. Radiologist also interpreted the x-rays and agrees. CBC was within normal limits with the exception of a hemoglobin of 9.3 hematocrit 30.9. These are stable compared to previous results. Basic metabolic profile showed a mildly elevated creatinine of 1.42 and a BUN of 21. These are stable compared to previous results. The wo unds were redressed. Patient was instructed to continue his pain medication at home. Patient was instructed to follow-up with his regulatory compliance specialist and primary care physician in 5 to 7 days. Patient understood and was agreeable with the plan. All questions were answered. Lab Data Labs: Laboratory Results - last 24 hr 07/04/21 07/04/21 01:54 01:54 WBC 6.0 RBC 2.99 L Hgb 9.3 L Hct 30.9 L MCV 103.3 H MCH 31.1 MCHC 30.1 L RDW Std Deviation 59.4 H RDW Coeff of [place] 15.7 H Plt Count 125 L MPV 11.3 Immature Gran % (Auto) 0.300 Neut % (Auto) 80.9 H Lymph % (Auto) 11.6 L [place] % (Auto) 6.6 Eos % (Auto) 0.3 Baso % (Auto) 0.3 Absolute Neuts (auto) 4.9 Absolute Lymphs (auto) 0.70 L Nucleated RBC % 0 Sodium 143 Potassium 3.7 Chloride 111 H Carbon Dioxide 25.0 Anion Gap 7 BUN 21 H Creatinine 1.42 H Estim Creat Clear Calc 40.70 Est GFR (MDRD) Af Amer 61 Est GFR (MDRD) Non-Af 51 L BUN/Creatinine Ratio 14.8 Glucose 128 H Calcium 8.8 Radiography Diagnostic Testing: Clinical Impression(s) from Imaging Studies Ankle X-Ray 07/04/21 02:38 IMPRESSION: 1. Postoperative changes of the ankle and sequela of previous fracture 2. Soft tissue swelling without obvious acute fracture. 3. If there is still clinical concern for acute fracture, follow-up radiographs in 7-10 days maybe helpful in evaluating a healing radiographically occult fracture. Electronically Signed: Gauri Haile MD at 3:21 EST , Service support , Discharge Plan Triage Chief Complaint: Numb/Ting ED Provider: Pancho Tillman Dx/Rx/DC Orders Clinical Impression: Postoperative pain Prescriptions: No Action isosorbide mononitrate 30 mg tablet extended release 24 hr 30 mg PO QAM RF: 0 warfarin 5 mg tablet 5 mg PO SUTUTHSA RF: 0 warfarin 7.5 mg tablet 7.5 mg PO MOWEFR RF: 0 metoprolol tartrate 25 mg tablet 12.5 mg PO BID RF: 0 nitroglycerin 0.4 mg tablet, sublingual 0.4 mg SUBLINGUAL Q5M PRN (Reason: Chest Pain) Qty: 30 RF: 0 rosuvastatin 40 MG tablet 40 mg PO QHS RF: 0 pantoprazole 40 mg tablet,delayed release (DR/EC) 40 mg PO BID RF: 0 ferrous sulfate 325 MG tablet 325 mg PO BIDCM RF: 0 cholecalciferol (vitamin D3) 1,000 UNIT tablet 2,000 unit PO DAILY RF: 0 albuterol sulfate 90 MCG aerosol powdr breath activated 1 puff INHALATION Q4H PRN PRN (Reason: Wheezing) RF: 0 aspirin 81 MG tablet 81 mg PO DAILY@0800 RF: 0 folic acid 1 MG tablet 1 mg PO QHS RF: 0 ipratropium-albuterol 3 ML solution for nebulization 3 ml INHALATION Q4H PRN PRN (Reason: sob/wheezing) Qty: 30 RF: 0 zolpidem 10 MG tablet 10 mg PO QHS RF: 0 pregabalin 75 MG capsule 75 mg PO TID RF: 0 Asmanex HFA 100 mcg/actuation Hfa Aerosol Inhaler 2 puff INHALATION BID RF: 0 Stiolto Respimat 2.5-2.5 mcg/actuation Mist 1 puff INHALATION DAILY RF: 0 amoxicillin-pot clavulanate [Augmentin] 875-125 mg tablet 1 tab PO BID 40 Days Qty: 80 RF: 0 oxycodone-acetaminophen 7.5-325 mg tablet 1 tab PO Q6H PRN (Reason: pain) 7 Days Qty: 28 RF: 0 furosemide 40 MG tablet 40 mg PO DAILY RF: 0 enoxaparin [Lovenox] 60 mg/0.6 mL syringe 60 mg subcut Q12H Qty: 6 RF: 1 Primary Care Provider: Guillermo Pritchard Referrals: Mary Alice Villarreal DPM [STAFF PHYSICIAN] - 3-5 Days Guillermo Pritchard MD [Primary Care Provider] - 5-7 Days Disposition Disposition: Home, Self Care
[2021-07-04] MEDS: Morphine 4 MG/ML Syringe IV (02:36)
[2021-07-04 02:37] LABS: Absolute Neutrophil Count 4.9 X10^3/uL (2.0-7.7); Basophil# 0.02 X10^3/uL; Basophil% 0.3 % (0-1); Eosinophil# 0.02 X10^3/uL; Eosinophils% 0.3 % (0-5); Hematocrit 30.9 % (40-54); Hemoglobin 9.3 g/dL (13.0-16.5); Lymphocyte % 11.6 % (19-41); Mean Corp Hgb Conc 30.1 g/dL (32-36); Mean Corpuscular Hgb 31.1 pg (27.0-32.0); Mean Corpuscular Volume 103.3 fL (80-94); Mean Platelet Vol. 11.3 fl (6.2-12.0); Monocyte% 6.6 % (0-10); NRBC Flagged by Analyzer 0 % (0-5); Neutrophil # 4.87 X10^3/uL (2.7-7.7); Neutrophil % 80.9 % (47-70); Platelet Count 125 K/mm3 (150-450); RBC Distribution Width CV 15.7 % (11.6-14.6); RBC Distribution Width SD 59.4 fl (35.1-43.9); Red Blood Count 2.99 M/mm3 (4.6-6.2)
--- NOTE | 2021-07-04 02:38 | RAD_ITS ---
STUDY: X-RAY - LEFT ANKLE REASON FOR EXAM: Male, 81 years old patient with left ankle pain after injury. TECHNIQUE: 3 view(s) of the ankle. COMPARISON: Radiographs of the left ankle dated 07/02/2021. FINDINGS: There are geographic lucencies within the distal fibula probably representing previous location of orthopedic screws. This is unchanged since the previous study. There is subtle deformity distal fibula consistent with old fracture. There is also subtle deformity of the medial malleolus probably secondary to old fracture. The distal tibia otherwise has a normal appearance. Normal tibiotalar articulation and ankle mortise. Normal visualized talus and calcaneus. The tarsal bones have generally normal alignment. There is no demonstrated fracture. There is moderate soft tissue swelling. RAD/Ankle min 3 Views IMPRESSION: 1. Postoperative changes of the ankle and sequela of previous fracture 2. Soft tissue swelling without obvious acute fracture. 3. If there is still clinical concern for acute fracture, follow-up radiographs in 7-10 days maybe helpful in evaluating a healing radiographically occult fracture. Electronically Signed: Gauri Haile MD at 3:21 EST , Service support ,
[2021-07-04 02:46] LABS: Anion Gap 7 (5-15); BUN 21 mg/dL (7-18); BUN/Creat Ratio 14.8 RATIO (10-20); Calcium,Total 8.8 mg/dL (8.5-10.1); Chloride 111 mmol/L (98-107); Creatinine, Serum 1.42 mg/dL (0.70-1.30); EST Glomerular Filtration Rate 51 mL/min (>60); Est Glom Filt Rate - Afr Amer 61 mL/min (>60); Glucose 128 mg/dL (74-106); Potassium 3.7 mmol/L (3.5-5.1); Sodium Level 143 mmol/L (136-145)
--- NOTE | 2021-07-04 03:15 | ED.RN ---
patients daughter called for an update. would like to know test results when everything is back. Emily Montejo [phone]
[2021-07-04 04:18] VITALS: BP 137/73; PULSE 65; RESP 11; O2SAT 98
--- NOTE | 2021-07-04 04:21 | ED.RN ---
patient states his house could be locked and does not have the keys. patients daughter has been called to unlock the house.
[2021-07-04 06:16] VITALS: BP 125/72; PULSE 66; RESP 15; O2SAT 95
== END 2021-07-04 08:24 | disposition home or self-care (01) ==
PROVIDERS: Emergency Provider Emergency Medicine; PCP Family Medicine
DX: G89.18 Other acute postprocedural pain (principal); F17.210 Nicotine dependence, cigarettes, uncomplicated; I25.10 Atherosclerotic heart disease of native coronary artery without angina pectoris; I25.2 Old myocardial infarction; Z86.73 Personal history of transient ischemic attack (TIA), and cerebral infarction without residual deficits; I11.0 Hypertensive heart disease with heart failure; I50.22 Chronic systolic (congestive) heart failure; I48.0 Paroxysmal atrial fibrillation; J44.9 Chronic obstructive pulmonary disease, unspecified; K21.9 Gastro-esophageal reflux disease without esophagitis; M19.90 Unspecified osteoarthritis, unspecified site; I25.5 Ischemic cardiomyopathy; E78.00 Pure hypercholesterolemia, unspecified; D50.0 Iron deficiency anemia secondary to blood loss (chronic); Z79.899 Other long term (current) drug therapy; Z79.01 Long term (current) use of anticoagulants; Z79.51 Long term (current) use of inhaled steroids; Z79.82 Long term (current) use of aspirin
CPT/HCPCS: 73610; 80048; 85025; 96374; 99285; A4216

== ENCOUNTER → 2021-07-07 09:17 | Outpatient (CLI) | payer MEDICARE, SELFPAY ==
[2021-07-07 11:16] LABS: INR Fingerstick 1.3; Prothrombin Time Fingerstick 15.5 SEC (11.9-14.4)
== END ==
PROVIDERS: PCP Family Medicine; Visit Provider Internal Medicine Cardiovascular Disease
DX: I48.0 Paroxysmal atrial fibrillation (principal); Z95.2 Presence of prosthetic heart valve; Z79.01 Long term (current) use of anticoagulants
CPT/HCPCS: 36416; 85610

== ENCOUNTER → 2021-07-09 08:53 | Outpatient (CLI) | payer MEDICARE, SELFPAY ==
[2021-07-09 11:15] LABS: Prothrombin Time Fingerstick 22.5 SEC (11.9-14.4)
== END ==
PROVIDERS: PCP Family Medicine; Referring Provider Internal Medicine Cardiovascular Disease; Visit Provider Internal Medicine Cardiovascular Disease
DX: I40.0 Infective myocarditis (principal); Z79.01 Long term (current) use of anticoagulants; Z95.2 Presence of prosthetic heart valve
CPT/HCPCS: 36416; 85610

== ENCOUNTER → 2021-07-14 09:58 | Outpatient (CLI) | payer MEDICARE, SELFPAY ==
[2021-07-14 11:06] LABS: INR Fingerstick 2.4; Prothrombin Time Fingerstick 27.3 SEC (11.9-14.4)
== END ==
PROVIDERS: PCP Family Medicine; Visit Provider Internal Medicine Cardiovascular Disease
DX: I48.0 Paroxysmal atrial fibrillation (principal); Z95.2 Presence of prosthetic heart valve; Z79.01 Long term (current) use of anticoagulants; M25.572 Pain in left ankle and joints of left foot
CPT/HCPCS: 36416; 85610

== ENCOUNTER 2021-07-21 09:16 | Outpatient (CLI) | payer MEDICARE, SELFPAY ==
[2021-07-22 08:51] LABS: INR Fingerstick 2.6; Prothrombin Time Fingerstick 28.9 SEC (11.9-14.4)
== END 2021-07-21 23:59 | disposition short-term general hospital (02) ==
LOC: LAB 09:17
PROVIDERS: PCP Family Medicine; Visit Provider Internal Medicine Cardiovascular Disease
DX: I48.0 Paroxysmal atrial fibrillation (principal); Z79.01 Long term (current) use of anticoagulants; Z95.2 Presence of prosthetic heart valve
CPT/HCPCS: 36416; 85610

== ENCOUNTER 2021-08-04 08:56 | Outpatient (CLI) | payer MEDICARE, SELFPAY ==
[2021-08-04 10:35] LABS: INR Fingerstick 2.2
== END 2021-08-04 23:59 | disposition short-term general hospital (02) ==
LOC: LAB 08:57
PROVIDERS: PCP Family Medicine; Visit Provider Internal Medicine Cardiovascular Disease
DX: I48.0 Paroxysmal atrial fibrillation (principal); Z79.01 Long term (current) use of anticoagulants; Z95.2 Presence of prosthetic heart valve
CPT/HCPCS: 36416; 85610

== ENCOUNTER 2021-08-15 13:05 | Inpatient (IN) | payer MEDICARE, SELFPAY ==
--- NOTE | 2021-08-15 06:56 | HP_ITS ---
Visit date: 08/15/21 History and Physical: Chief Complaint: Fall from bed. HPI: The patient is a 82 y/o M w/ PMHx: Chronic anemia/Fe Deficiency anemia, PAF, HTN, HLD, GERD, Chronic systolic CHF, COPD, CAD s/p CABG RED-LAD 1193 and PCI x 2 , Valvular Heart Disease s/p AVR [address] [employer] who presents to the [facility] ED on 08/15/21 w/ history of fall while at home from his bed onto his right side without any trauma but upon ED presentation he noted R hip/knee/shoulder discomfort prompting ED evaluation secondary to severity of weakness and debility with incidentally noted upon presentation fever as well as mild hypoxia prompting further investigation. Patient is unvaccinated against COVID. His daughter and grandson were both recently ill within the last week with cough and URI type symptoms. The grandson of note did have an outpatient COVID antigen that was reportedly negative. Patient denies any nausea, emesis, diarrhea, marked cough, altered sense of taste or smell. He does admit to poor appetite and not feeling generally well over the last 48 hours. He denies dyspnea or recent cough despite ED noted hypoxia. Allergies: NKDA Home medications: rosuvastatin 40 mg PO QHS ferrous sulfate 325 mg PO BIDCM albuterol sulfate 1 puff INHALATION Q4H PRN cholecalciferol (vitamin D3) 2,000 unit PO DAILY aspirin 81 mg PO DAILY@0800 folic acid 1 mg PO QHS ipratropium-albuterol 3 ml INHALATION Q4H scheduled isosorbide mononitrate 30 mg tablet,extended release 24 hr 30 mg PO QAM pantoprazole 40 mg tablet,delayed release 40 mg PO BID warfarin 5 mg tablet 5 mg PO SUTUTHSA warfarin 7.5 mg tablet 7.5 mg PO MOWEFR zolpidem 10 mg PO QHS pregabalin 75 mg PO TID metoprolol tartrate 25 mg tablet 12.5 mg PO BID nitroglycerin 0.4 mg sublingual tablet 0.4 mg SUBLINGUAL Q5M PRN mometasone [Asmanex HFA] 2 puff INHALATION BID tiotropium-olodaterol [Stiolto Respimat] 1 puff INHALATION DAILY furosemide 40 mg PO DAILY Social Hx: Patient was by himself, ongoing tobacco usage, no alcohol or illicit drug usage. PSurgHx: PCI x 2, CABG x 1, AVR Mechanical [facility], Lumbar Fusion, LLE ORIF with infected hardware eventual removal (07/02/21). Family Hx: Patient with a family history of CAD/MIs, sudden cardiac in his son who at age 44 secondary to massive [place], brother with coronary disease, sister with coronary disease. Patient does not know any of his maternal or paternal family specific history. Admission Review of Systems: CONSTITUTIONAL: No weight loss, + fever, chills, weakness or fatigue. HEENT: Eyes: No visual loss, blurred vision, double vision or yellow sclerae. Ears, Nose, Throat: No hearing loss, sneezing, congestion, runny nose or sore throat. SKIN: No rash or itching, lesions, wounds. CARDIOVASCULAR: No chest pain, chest pressure or chest discomfort, palpitations, edema, orthopnea, syncopal events. RESPIRATORY: Denies shortness of breath despite hypoxia, No cough or sputum, wheezing, hemoptysis. GASTROINTESTINAL: + anorexia, No nausea, vomiting or diarrhea, abdominal pain, melena, BRBPR. GENITOURINARY: No dysuria, frequency, urgency or retention. NEUROLOGICAL: + Generally weak. No headache, dizziness, syncope, paralysis, ataxia, numbness or tingling in the extremities, focal weakness, change in bowel or bladder control, seizure. MUSCULOSKELETAL: + muscle, back pain, joint pain or stiffness. HEMATOLOGIC: + anemia, bleeding or bruising. LYMPHATICS: No enlarged nodes. No history of splenectomy. PSYCHIATRIC: No history of depression or anxiety. ENDOCRINOLOGIC: No reports of sweating, cold or heat intolerance. No polyuria or polydipsia. ALLERGIES: No history of asthma, hives, eczema or rhinitis. Labs: CBC w/ WBC 4.22, Hgb 11.8, Plts 136 with lymphopenia CMP w/ Na 140, K 3.7, Chl 104, CO 2 28, AG 8, glucose 109, BUN/Cr 31/1.7, hepatic profile with T bili 1.1, AST/ALT 288/56 UA with occult blood 250, 0-5 WBC/RBC, neg nitrities otherwise unremarkable Pending COVID antigen Pending coags Imaging: CXR with no acute cardiopulmonary findings R shoulder with no acute findings R humurus with no acute findings R hip with no acute findings Medications administered in the ED: Duoneb x 1. VS: BP 105/76, T 100.3, HR 113, RR 20, 91% on RA initially, decreased to 87-88% laying in the bed, placed on supplementation 2L NC > 90% Physical Examination: General: awake, alert, oriented x 3 including to self, place and recent events and cooperative, seated upright in the ED bed in no apparent distress but fatigued appearing. Skin: normal color, normal turgor, no icterus, no cyanosis except left lower extremity with well-healed ankle incisions, no drainage or any erythema but tender to palpation which he notes has been similar since postop, bilateral lower extremity chronic venous skin changes. HEENT: AT/NC, EOMI, PERRLA, mildly dry MM, no carotid bruits or JVD noted. Lungs: Diffusely diminished, greater bases, moderate effort, mildly increased respiratory rate but no distress, no rales, ronchi or wheezing. Heart: Currently regular rate and rhythm; no gallop, rub audible, + notable valve click. Abdomen: soft, NTTP, ND, distant mildly hyperactive BS, no HSM. Extremities: no cyanosis, clubbing, or edema. Neurological: patient awake, alert, oriented as noted; cognitive function per discussion with family mildly decreased from baseline intact; pupils equally reactive to light and accomodation; cranial nerves II-XII grossly normal, moving all 4 extremities, no focal deficits, strength severely global decrease secondary to acute presentation. Psychiatric: affect appears fatigued otherwise normal, no acute evidence of depressive or anxiety feelings. Assessment and Plan: The patient is a 82 y/o M w/ PMHx: Chronic anemia/Fe Deficiency anemia, PAF, HTN, HLD, GERD, Chronic systolic CHF, COPD, CAD s/p CABG RED-LAD 1992 and PCI x 2 , Valvular Heart Disease s/p AVR [address] [employer] who presents to the [facility] ED on 08/15/21 w/ history of fall while at home from his bed onto his right side without any trauma but upon ED presentation he noted R hip/knee/shoulder discomfort prompting ED evaluation secondary to severity of weakness and debility with incidentally noted upon presentation fever as well as mild hypoxia prompting further investigation. #1. Acute Hypoxia suspected secondary to Acute Viral Syndrome, COVID-19: Will admit to the [facility] telemetry, maintain on COVID precautions pending antigen ED testing; however, if negative given no obvious other source would obtain PCR, will maintain on oxygen with wean as tolerated to room air, PRN albuterol, HOB, IS parameters w/ pending sputum cultures and urine antigens, will obtain D- dimer, procalcitonin, CRP, CPK, Ferritin, LDH, trop and BNP, continue supportive care including q 2 hour turning including prone given no prone bed availability and judicious hydration, closely monitor for worsening status for ARDS and multiorgan failure, will initiate and continue IV decadron x 10 doses however if Covid antigen and PCR negative will de-escalate off, will hold on any remdesivir given unclear etiology for acute presentation. If again Covid antigen and PCR negative given unremarkable chest x-ray and urinalysis may need to consider respiratory viral panel. #2. Mild Acute Renal Insufficiency on Chronic Kidney Disease Stage III, unclear subtype: Admission BUN/Cr 31/1.7, most recent baseline noted 1.42 on 07/04/2021, will continue judicious hydration and repeat CMP in AM. Additional Co-morbidities: Chronic systolic CHF: We will continue patient home aspirin, Coumadin with INR trending, statin therapy, metoprolol as well as Lasix with hold parameters, not on NABIL inhibitor/ARB, defer to outpatient. CAD: Status post CABG with RED to LAD in 1992, PCI x220 05/2013, continue aspirin, Coumadin with INR trending, statin therapy, metoprolol, not on NABIL inhibitor/ARB Valvular heart disease: Patient status post AVR 1992 with a [employer] mechanical valve . PAF: We will continue metoprolol with hold parameters as well as Coumadin with INR trending. Hypertension: We will continue patient home Lasix, metoprolol, isosorbide with hold parameters given lower BP upon presentation, as needed IV hydralazine as needed. Hyperlipidemia: We will continue patient home statin therapy. Chronic neuropathy: We will continue patient home pregabalin regimen. GERD: We will continue patient home PPI. Chronic anemia/iron deficiency: Admission hemoglobin 11.8, stable, continue trending as well as iron supplementation. Chronic COPD: We will hold home inhalers and transition to ATC DuoNeb therapy as well as pain albuterol, encourage head of bed and I-S. Tobacco Abuse: Encouraged cessation, inpatient consultation per RT, NR if desired. DVT prophylaxis: SCDs, continue patient home Coumadin with INR trending, coags pending upon evaluation. CODE status: Patient YONATAN is the patient's daughter who is present and living will is currently in place. Discussed CODE status at length including difference between FULL code, DNR-CCA and DNR-CC status. Following discussions about the differences in these status, requested DNR-CCA, no intubation status. Advanced Care Planning Face to Face Time: 16 minutes. Billing code: [id number], [id number]
--- NOTE | 2021-08-15 15:00 | RAD_ITS ---
INDICATION: fell out of bed pain in rt side extremities EXAMINATION/TECHNIQUE: X-RAY - RIGHT XR Hip Unilateral with Pelvis when performed; 2-3 Views COMPARISON: None. FINDINGS: No acute fracture or malalignment. No blastic or lytic lesions. Degenerative changes of the hips, sacroiliac joints and lumbar spine. Postsurgical changes of the lumbosacral spine. The soft tissues are unremarkable. RAD/HIP, UNI W/ Pelvis 2-3 Views IMPRESSION: No acute radiographic abnormalities. Electronically Signed: Charlie Barrientos MD at 18:04 EST ,
--- NOTE | 2021-08-15 15:00 | RAD_ITS ---
INDICATION: fell out of bed pain in rt side extremities EXAMINATION/TECHNIQUE: X-RAY - UNKNOWN XR Chest 1 View COMPARISON: None. FINDINGS: Bibasilar atelectasis. Sternal cerclage wires and vascular clips are present from a prior sternotomy and coronary artery bypass graft procedure (CABG). The heart is enlarged. Tortuous and calcified thoracic aorta. No pleural effusion or pneumothorax. No acute osseous abnormalities. RAD/Chest 1 View IMPRESSION: No acute radiographic abnormalities. Electronically Signed: Charlie Barrientos MD at 17:58 EST ,
--- NOTE | 2021-08-15 15:00 | RAD_ITS ---
INDICATION: fell out of bed pain in rt side extremities, PLEASE SEE SHOULDER XRAY FOR ADDITIONAL PROXIMAL HUMERUS IMAGES EXAMINATION/TECHNIQUE: X-RAY - RIGHT XR Humerus Min 2 Views COMPARISON: None. FINDINGS: No acute fracture or malalignment. No blastic or lytic lesions. Mild degenerative changes of the right shoulder. The soft tissues are unremarkable. RAD/Humerus min 2 Views IMPRESSION: No acute radiographic abnormalities. Electronically Signed: Charlie Barrientos MD at 18:04 [facility] ,
--- NOTE | 2021-08-15 15:00 | RAD_ITS ---
INDICATION: fell out of bed pain in rt side extremities EXAMINATION/TECHNIQUE: X-RAY - RIGHT XR Shoulder Min 2 Views COMPARISON: None. FINDINGS: No acute fracture or malalignment. Normal internal and external rotation. Degenerative changes of the glenohumeral and acromioclavicular joint. The soft tissues are unremarkable. RAD/Shoulder min 2 Views IMPRESSION: No acute radiographic abnormalities. Electronically Signed: Charlie Barrientos MD at 18:08 EST ,
[2021-08-15 20:33] LABS: Bacteria 0 SEEN /hpf (None Seen); Mucous, Urine 0 SEEN /hpf (<or=2+); Squamous Epithelial Cells - UA 0 SEEN /hpf (0-5)
[2021-08-15 20:59] LABS: Absolute Lymphocyte Count 0.42 X10^3/uL (0.83-4.51); Absolute Neutrophil Count 3.3 X10^3/uL (2.0-7.7); Basophil# 0.04 X10^3/uL; Basophil% 0.9 % (0-1); Differential Indicated SCAN CRITERIA MET; Eosinophil# 0.01 X10^3/uL; Eosinophils% 0.2 % (0-5); Hematocrit 38.2 % (40-54); Hemoglobin 11.8 g/dL (13.0-16.5); Lymphocyte # 0.42 X10^3/ul (0.83-4.51); Mean Corp Hgb Conc 30.9 g/dL (32-36); Mean Corpuscular Hgb 29.8 pg (27.0-32.0); Mean Corpuscular Volume 96.5 fL (80-94); Mean Platelet Vol. 11.2 fl (6.2-12.0); Monocyte# 0.41 X10^3/uL; Monocyte% 9.7 % (0-10); NRBC Flagged by Analyzer 0 % (0-5); Neutrophil # 3.32 X10^3/uL (2.7-7.7); Neutrophil % 78.7 % (47-70); POSITIVE DIFFERENTIAL YES; Platelet Count 136 K/mm3 (150-450); RBC Distribution Width SD 53.5 fl (35.1-43.9); Red Blood Count 3.96 M/mm3 (4.6-6.2); White Blood Count 4.2 K/mm3 (4.4-11.0)
[2021-08-15 21:00] LABS: Differential Comment SCANNED
[2021-08-15 21:01] LABS: Anisocytosis RARE; Platelet Estimate SLT DEC (ADEQ)
[2021-08-15 23:00] VITALS: BP 116/93; PULSE 87; RESP 18; TEMP 37.2; O2SAT 96
[2021-08-15] MEDS: dexAMETHasone 4 MG/ML Vial 6 MG IV (23:30)
[2021-08-15] MEDS: 0.9% Normal Saline 1,000 ML 100 ML IV (23:30)
[2021-08-16] VITALS (19 sets, daily range): BP systolic 96–138; BP diastolic 53–73; PULSE 62–105; RESP 18–21; TEMP 36.4–37.4; O2SAT 89–96; BMI 22.6
[2021-08-16 01:09] LABS: Fibrinogen 509 mg/dl (203-444)
[2021-08-16 01:31] LABS: D-Dimer Quantitative (DVT/PE) 1.04 FEU/ug/m (0.27-0.49)
[2021-08-16 01:42] LABS: BNP,B-Type NATRIURETIC PEPTIDE 276.1 pg/mL (0-100)
[2021-08-16 02:03] LABS: Lactic Acid 1.2 mmol/L (0.4-1.9)
[2021-08-16 02:09] LABS: AST(SGOT) 288 U/L (15-37); Alanine Aminotransfer ALT/SGPT 56 U/L (16-61); Albumin, Serum 3.5 g/dL (3.2-5.0); Alkaline Phosphatase 131 U/L (45-117); Anion Gap 8 (5-15); BUN 31 mg/dL (7-18); BUN/Creat Ratio 18.2 RATIO (10-20); Calcium,Total 8.7 mg/dL (8.5-10.1); Chloride 104 mmol/L (98-107); EST Glomerular Filtration Rate 41 mL/min (>60); Est Glom Filt Rate - Afr Amer 50 mL/min (>60); Estimated Creatinine Clearance 33.34 ml/min; Globulin 3.5 g/dL (2.2-4.2); Glucose 109 mg/dL (74-106); Potassium 3.7 mmol/L (3.5-5.1); Sodium Level 140 mmol/L (136-145)
[2021-08-16 02:14] LABS: CPK Total, Creatine Kinase 14275 U/L (39-308); LDH 681 U/L (87-241); Magnesium 2.3 mg/dL (1.6-2.6); Troponin-I HS 313 pg/mL (3.0-78.0)
--- NOTE | 2021-08-16 02:49 | CT_ITS ---
EXAM: CT ANGIOGRAPHY CHEST WITHOUT AND WITH INTRAVENOUS CONTRAST CLINICAL INDICATION: suspected PE suspected PE. Status post fall out of bed. Pain in the right side. TECHNIQUE: Helically acquired angiography images were obtained of the chest without and with intravenous contrast. This CT exam was performed using one or more of the following dose reduction techniques: automated exposure control, adjustment of the mA and/or kV according to patient size, and/or use of iterative reconstruction technique. This report was created using Needly report generation technology. MIP reconstructed images were created and reviewed. CONTRAST: IV 100mL [id number] COMPARISON: Chest x-ray 08/15/2021. CT scan chest 05/12/2018. FINDINGS: PULMONARY ARTERIES: Unremarkable. Normal in caliber. No evidence of pulmonary embolism. AORTA: There are atelectatic calcifications of the thoracic aorta and great vessels. The left common carotid artery originates from the right brachiocephalic artery, consistent with bovine configuration of the great vessels, a developmental variant. Ascending thoracic aorta is ectatic with diameter of 4.4 cm. There is no interval worsening from the 2018 exam. No evidence of dissection. GREAT VESSELS OF AORTIC ARCH: See above. LUNGS AND PLEURAL SPACES: There are emphysematous changes in the lungs, including both paraseptal and centrilobular emphysematous bullae. No mass. No pleural effusion or thickening. No pneumothorax. HEART: There are coronary artery calcifications. There are sternotomy wires and surgical clips suggesting previous CABG. No pericardial effusion. No signs of right heart strain, ratio of right ventricle to left ventricle measures less than 1. MEDIASTINUM: See below. THYROID: Unremarkable. No thyroid lesions. BONES/JOINTS: There is an old compression fracture of the T8 vertebral body. No suspicious lytic or blastic abnormality. SOFT TISSUES: As seen on series 2, axial images 127-154, there is a focal soft tissue density which may represent either mural thickening of a collapsed segment of the thoracic esophagus or, less likely, an enlarged subcarinal mediastinal lymph node continuous with the anterior aspect of the thoracic esophagus. There is demonstration of mild mural thickening of the thoracic esophagus more distally. CT/CTA Chest W/WO Contrast IMPRESSION: 1. No evidence for pulmonary embolism or aortic dissection. 2. Ectatic ascending thoracic aorta with diameter 4.4 cm, which is stable compared with 2018 exam. 3. Atherosclerosis. 4. There is a mural thickening of the distal thoracic esophagus. Question of focal masslike mural thickening of the esophagus in the subcarinal region versus contiguous enlarged lymph node. Would consider upper endoscopy for further evaluation. 5. Emphysematous changes in the lungs. 6. No demonstrated acute pulmonary infiltrates. Electronically Signed: El Ochoa MD at 4:20 EST Reading Location ID and State: [facility] / [place] , Service support ,
[2021-08-16 03:16] LABS: Absolute Lymphocyte Count 0.31 X10^3/uL (0.83-4.51); Absolute Neutrophil Count 4.7 X10^3/uL (2.0-7.7); Basophil# 0.05 X10^3/uL; Eosinophil# 0.01 X10^3/uL; Eosinophils% 0.2 % (0-5); Hematocrit 34.9 % (40-54); Hemoglobin 11.1 g/dL (13.0-16.5); Lymphocyte # 0.31 X10^3/ul (0.83-4.51); Lymphocyte % 5.9 % (19-41); Mean Corp Hgb Conc 31.8 g/dL (32-36); Mean Corpuscular Hgb 30.8 pg (27.0-32.0); Mean Corpuscular Volume 96.9 fL (80-94); Mean Platelet Vol. 10.3 fl (6.2-12.0); Monocyte# 0.18 X10^3/uL; Monocyte% 3.4 % (0-10); NRBC Flagged by Analyzer 0 % (0-5); Neutrophil # 4.67 X10^3/uL (2.7-7.7); Neutrophil % 89.3 % (47-70); POSITIVE DIFFERENTIAL YES; Platelet Count 132 K/mm3 (150-450); RBC Distribution Width CV 15.1 % (11.6-14.6); RBC Distribution Width SD 53.4 fl (35.1-43.9); White Blood Count 5.2 K/mm3 (4.4-11.0)
[2021-08-16 03:25] LABS: International Normalized Ratio 2.9; Prothrombin Time (Protime)PT. 29.6 SECONDS (11.7-14.9)
[2021-08-16 03:30] LABS: Procalcitonin 0.33 ng/mL (0.00-0.09)
[2021-08-16 03:48] LABS: Differential Comment SCANNED; Differential Indicated SCAN CRITERIA MET
[2021-08-16 03:53] LABS: AST(SGOT) 334 U/L (15-37); Alanine Aminotransfer ALT/SGPT 58 U/L (16-61); Albumin, Serum 3.2 g/dL (3.2-5.0); Alkaline Phosphatase 116 U/L (45-117); Anion Gap 9 (5-15); BUN 35 mg/dL (7-18); BUN/Creat Ratio 19.4 RATIO (10-20); Calcium,Total 8.1 mg/dL (8.5-10.1); Chloride 104 mmol/L (98-107); EST Glomerular Filtration Rate 39 mL/min (>60); Est Glom Filt Rate - Afr Amer 47 mL/min (>60); Estimated Creatinine Clearance 31.49 ml/min; Globulin 3.2 g/dL (2.2-4.2); Glucose 99 mg/dL (74-106); Potassium 3.9 mmol/L (3.5-5.1); Protein, Total 6.4 g/dL (6.4-8.2); Sodium Level 138 mmol/L (136-145)
[2021-08-16 04:58] LABS: Troponin-I HS 294 pg/mL (3.0-78.0)
[2021-08-16] MEDS: Acetaminophen 325 MG Tablet 650 MG PO (05:36)
[2021-08-16] MEDS: Pregabalin 75 MG Capsule PO ×3 (05:36→22:41)
[2021-08-16 06:52] LABS: Troponin-I HS 269 pg/mL (3.0-78.0)
--- NOTE | 2021-08-16 07:56 | CPS ---
started by nursing
[2021-08-16 09:02] LABS: Color, Urine Yellow (Yellow); Glucose, Dipstick NEGATIVE (Normal); Hyaline Cast 0-5 SEEN /lpf (0-5); Ketone-Dipstick Negative (Negative); Leukocyte Esterase-Dipstick Negative /ul (Negative); Nitrite-Dipstick Negative (Negative); Occult Blood-Urine 250 /ul (Negative); Protein-Dipstick 100 mg/dl (Negative); Red Blood Cells-Urine 0-5 SEEN /hpf (0-5); Urine Bilirubin Dipstick Negative (Negative); Urine Clarity Cloudy (Clear); Urine Urobilinogen Normal (Normal); White Blood Cells 0-5 SEEN /hpf (0-5)
[2021-08-16 09:03] LABS: Coarse Granular Cast 0-5 SEEN /lpf (0-5 /lpf); Fine Granular Cast- Urine 0-5 SEEN /lpf (0-5); Renal Epithelial Cells 0-5 SEEN /hpf (0-5)
[2021-08-16 09:06] LABS: Troponin-I HS 244 pg/mL (3.0-78.0)
[2021-08-16] MEDS: 0.9% Normal Saline 1,000 ML 100 ML IV ×2 (10:08→19:27)
[2021-08-16] MEDS: Ferrous Sulfate 325 MG Tablet PO ×2 (10:16→17:12)
[2021-08-16] MEDS: Aspirin E.C. 81 MG Tablet PO (10:17)
[2021-08-16] MEDS: Ipratropium/Albuterol Sulfate 3 ML AMPUL.NEB INHALATION ×3 (10:43→20:03)
[2021-08-16] MEDS: Pantoprazole Sodium 40 MG Tablet PO ×2 (11:40→22:40)
[2021-08-16] MEDS: Cholecalciferol (VIT D3) 25 MCG TABLET (1,000 UNITS) 50 MCG PO (11:40)
--- NOTE | 2021-08-16 13:06 | PN.HOSP_ITS ---
Subjective Subjective Patient seen and examined. He was admitted with a complaint of mechanical fall. Patient states he fell out of his bed and landed on his right side was brought into the ED. He denied any lightheadedness or dizziness and states he was sleeping and fell out of bed. He was admitted with right hip knee and shoulder discomfort. On admission he was also noted to be febrile with mild hypoxia. He is unvaccinated against Covid. He tested positive for Covid on admission. He has been managed for acute hypoxic respiratory failure due to COVID-19 pneumonia. Patient seen this morning. He had no active complaints. He denied any fever, chills, nausea vomiting or diarrhea. He felt his breathing was getting better. Review of systems otherwise negative. Objective Data Objective Data Vital Signs: Vital Signs Temp Pulse Resp BP Pulse Ox 98 F 66 18 117/60 95 08/16/21 12:00 08/16/21 12:58 08/16/21 12:00 08/16/21 12:00 08/16/21 12:00 Oxygen Flow Rate (L/min) 4 Oxygen Delivery Method Nasal Cannula Weight: 157 lb 13.616 oz Body Mass Index (BMI) 22.6 Intake & Output: Intake and Output for Last 24 Hours 08/14/21 08/15/21 08/16/21 23:59 23:59 23:59 Intake Total 2000 / 2000 Output Total 700 / 700 Balance 1300 / 1300 Lab / Micro Data Result Diagrams: 08/16/21 03:05 08/16/21 03:05 Labs: Laboratory Results - last 24 hr 08/15/21 14:43: WBC 4.2 L, RBC 3.96 L, Hgb 11.8 L, Hct 38.2 L, MCV 96.5 H, MCH 29.8, MCHC 30.9 L, RDW Std Deviation 53.5 H, RDW Coeff of Kalyan 15.0 H, Plt Count 136 L, MPV 11.2, Immature Gran % (Auto) 0.500, Neut % (Auto) 78.7 H, Lymph % (Auto) 10.0 L, Villalba % (Auto) 9.7, Eos % (Auto) 0.2, Baso % (Auto) 0.9, Absolute Neuts (auto) 3.3, Absolute Lymphs (auto) 0.42 L, Nucleated RBC % 0, Differential Comment SCANNED, Platelet Estimate SLT DEC, Anisocytosis RARE 08/15/21 14:43: Sodium 140, Potassium 3.7, Chloride 104, Carbon Dioxide 28.0, Anion Gap 8, BUN 31 H, Creatinine 1.70 H, Estim Creat Clear Calc 33.34, Est GFR (MDRD) Af Amer 50 L, Est GFR (MDRD) Non-Af 41 L, BUN/Creatinine Ratio 18.2, Glucose 109 H, Calcium 8.7, Total Bilirubin 1.10 H, AST 288 H, ALT 56, Alkaline Phosphatase 131 H, Total Protein 7.0, Albumin 3.5, Globulin 3.5, Albumin/Globulin Ratio 1.0 08/15/21 14:43: PT 30.0 H, INR 3.0 08/15/21 15:56: Urine Color Yellow, Urine Clarity Cloudy, Urine pH 6.0, Ur Specific Ralston 1.010, Urine Protein 100 H, Urine Glucose (UA) NEGATIVE, Urine Ketones Negative, Urine Occult Blood 250 H, Urine Nitrite Negative, Urine Bilirubin Negative, Urine Urobilinogen Normal, Ur Leukocyte Esterase Negative, Urine RBC 0-5 SEEN, Urine WBC 0-5 SEEN, Ur Squamous Epith Cells 0 SEEN, Ur Renal Epithelial Cell 0-5 SEEN, Urine Bacteria 0 SEEN, Hyaline Casts 0-5 SEEN, Fine Granular Casts 0-5 SEEN, Coarse Granular Casts 0-5 SEEN, Urine Mucus 0 SEEN 08/16/21 00:26: COVID-19 ([place]) Not Detected 08/16/21 00:38: Magnesium 2.3, Lactate Dehydrogenase 681 H, Total Creatine Kinase 04591 H, Troponin I High Sens 313 H* 08/16/21 00:38: Lactic Acid 1.2 08/16/21 00:38: B-Natriuretic Peptide 276.1 H 08/16/21 00:38: Procalcitonin 0.33 H 08/16/21 00:38: Fibrinogen 509 H, D-Dimer Quant (PE/DVT) 1.04 H* 08/16/21 03:05: Sodium 138, Potassium 3.9, Chloride 104, Carbon Dioxide 25.0, Anion Gap 9, BUN 35 H, Creatinine 1.80 H, Estim Creat Clear Calc 31.49, Est GFR (MDRD) Af Amer 47 L, Est GFR (MDRD) Non-Af 39 L, BUN/Creatinine Ratio 19.4, Glucose 99, Calcium 8.1 L, Total Bilirubin 1.10 H, AST 334 H, ALT 58, Alkaline Phosphatase 116, Total Protein 6.4, Albumin 3.2, Globulin 3.2, Albumin/Globulin Ratio 1.0 08/16/21 03:05: WBC 5.2, RBC 3.60 L, Hgb 11.1 L, Hct 34.9 L, MCV 96.9 H, MCH 30.8, MCHC 31.8 L, RDW Std Deviation 53.4 H, RDW Coeff of Kalyan 15.1 H, Plt Count 132 L, MPV 10.3, Immature Gran % (Auto) 0.200, Neut % (Auto) 89.3 H, Lymph % (Auto) 5.9 L, Villalba % (Auto) 3.4, Eos % (Auto) 0.2, Baso % (Auto) 1.0, Absolute Neuts (auto) 4.7, Absolute Lymphs (auto) 0.31 L, Nucleated RBC % 0, Differential Comment SCANNED 08/16/21 03:05: PT 29.6 H, INR 2.9 08/16/21 03:05: Troponin I High Sens 294 H* 08/16/21 04:56: Troponin I High Sens 269 H* 08/16/21 08:30: Troponin I High Sens 244 H* Micro: Microbiology 08/15/21 21:14 Nasal Secretion SARS-CoV-2 Antigen (Rapid) - Final Radiography Diagnostic Testing: Radiology Impression Chest X-Ray 08/15/21 15:00 IMPRESSION: No acute radiographic abnormalities. Electronically Signed: Charlie Barrientos MD at 17:58 EST , Hip/Pelvis X-Ray 08/15/21 15:00 IMPRESSION: No acute radiographic abnormalities. Electronically Signed: Charlie Barrientos MD at 18:04 EST , Humerus X-Ray 08/15/21 15:00 IMPRESSION: No acute radiographic abnormalities. Electronically Signed: Charlie Barrientos MD at 18:04 EST , Shoulder X-Ray 08/15/21 15:00 IMPRESSION: No acute radiographic abnormalities. Electronically Signed: Charlie Barrientos MD at 18:08 EST , Chest CTA 08/16/21 02:49 IMPRESSION: 1. No evidence for pulmonary embolism or aortic dissection. 2. Ectatic ascending thoracic aorta with diameter 4.4 cm, which is stable compared with 2018 exam. 3. Atherosclerosis. 4. There is a mural thickening of the distal thoracic esophagus. Question of focal masslike mural thickening of the esophagus in the subcarinal region versus contiguous enlarged lymph node. Would consider upper endoscopy for further evaluation. 5. Emphysematous changes in the lungs. 6. No demonstrated acute pulmonary infiltrates. Electronically Signed: El Ochoa MD at 4:20 EST , Physical Exam Const alert and oriented x3 Constitutional Narrative: lethargic Exam Limitations: no limitations HEENT head/scalp atraumatic Head and Scalp: normocephalic Mouth: dry mucous membranes Eyes PERRL, EOMs intact bilaterally and conjunctivae normal Neck no lymphadenopathy, supple and no JVD Resp Resp Narrative: diminished breath sounds bibasally, no wheezes or crackles. On 3L of oxygen by nasal canula Cardio regular rate, regular rhythm, S1 normal heart sound, S2 normal heart sound and no murmurs GI normal to inspection, nondistended, normoactive bowel sounds, soft to palpation, non-tender and non-distended Extremity normal to inspection, full ROM and no clubbing, cyanosis or edema Peripheral Pulses: Yes pulses 2+ throughout Neuro oriented x3 and CN's II-XII intact bilaterally Sensorium / Orientation: awake and alert Psych affect normal Assessment & Plan Assessment/Plan (1) Acute respiratory failure with hypoxia: (2) COVID: (3) NSTEMI, initial episode of care: PLAN: #Acute hypoxic respiratory failure due to nonstemi * covid test was negative * titrate oxygen to maintain sats >90% * breathing treatment with bronchodilators * on 4L of oxygen; doesnt wear oxygen at home. * #Non-STEMI: Initial troponin was 313 and is trended down to 244 * Denies any chest pain. Cardiology consulted. * on aspirin and statin. already on coumadin and INR is therapeutic * * #Rhabdomyolysis * CPK was 74380 on admission * being hydrated with IVF NS ~ 100cc/hr. Will not be too aggressive with fluids in light of his history of heart failure. * trend CPK #[place] on CKD stage IIIb * Baseline creatinine is around 1.2 on admission creatinine was 1.8. In light of her history of heart failure, will be cautious about hydration * Trend creatinine * Hold all nephrotoxic meds. * #Chronic heart failure with reduced ejection fraction * on lasix 40mg daily. Will hold this as he is in [place] on CKD stage 3, as well as in light of rhabdomyolysis. #CAD s/p CABG 1992 and stents in 2012. On aspirin and statin as well as metoprolol. Also on Coumadin. #Valvular heart disease status post aortic valve replacement * on coumadin. INR is 2.9 #Paroxysmal A. fib: On metoprolol and coumadin. INR is therapeutic at 2.9 #Hypertension: On metoprolol and Lasix #Hyperlipidemia: On statin #Chronic neuropathy: On pregabalin #GERD: PPI #COPD: * Not in exacerbation. * Breathing treatments bronchodilators. * Titrate oxygen to maintain saturation above 90% DVT prophylaxis: On Coumadin. INR is therapeutic CODE STATUS DNR CCA no intubation Charges/Coding Visit Charges Inpatient E&M: 70025 [facility] L3
--- NOTE | 2021-08-16 13:48 | PCS.PANDOC ---
PANDEMIC DOCUMENTATION INITIATED: Date: 03/02/2021 Time: 190
[2021-08-16 14:22] LABS: CPK Total, Creatine Kinase 11932 U/L (39-308)
--- NOTE | 2021-08-16 16:34 | EKG12_ITS ---
Test Reason : ELEVATED TROP Blood Pressure : / mmHG Vent. Rate : 074 BPM Atrial Rate : 074 BPM P-R Int : 214 ms QRS Dur : 158 ms QT Int : 450 ms P-R-T Axes : -04 -63 093 degrees QTc Int : 499 ms Sinus rhythm with 1st degree A-V block with Premature supraventricular complexes with occasional Mj ature ventricular complexes Right bundle branch block Left anterior fascicular block Bifascicular block Confirmed by JOSÉ KO, WEI ([id number]), features editor MIMA VALDEZ ([id number]) on 08/18/2021 8:48:49 AM Referred By: Pancho Tillman Confirmed By:WEI KUMAR MD
--- NOTE | 2021-08-16 16:52 | CASEMGMT ---
RN CM Assessment Introduced role of RN CM to patient. Patient is alert, oriented and able to participate in RN CM Assessment. Care providers, pharmacy, and demographics verified. Admit Dx: Fall, Respiratory failure s/t Covid (Patient Rapid Covid came back negative on 08.15.21 and PCR negative on 08.16.21) Re-Admit: No Barriers/Issues: None PCP: Guillermo Pritchard Specialists: Ortho- Fascione Preferred Pharmacy: [facility] Insurance: creads [facility], [place] Rx Benefit: Yes. [facility] LNOK: Dtr Emily Montejo LW/HPOA: Yes both on file with [facility]. HPOA- Dtr Emily Montejo Living Arrangements: Lives alone in a SSH. 1 step to enter at one entrance and a ramp to enter at other entrance. ADL?s: Ambulates with single point cane. States cane bent when he fell and needs another one. Independent with ADLs. Transportation: Patient drives. Dtr Emily will transport at [place]. DME: Rollator, single point cane, SC, Neb, handrails in shower. In Network DME list provided and preference is [employer]. HHC: Past. In Network list provided and patient preference [facility] if PT recommended. SNF: None and does not wish to go to SNF but I did leave an In Network list with patient. Goal: Home with possible HH PT if recommended-[facility], Possible DME- Cane, OT recommending Bed Cane for bed transfers, and possible Home O2- Preference [employer]. DC PLAN: Home with possible HH, F/u Mobility recommendations. Possible Home O2, Bed Cane, Single prong cane. STEPHANIE Bush
[2021-08-16] MEDS: Folic Acid 1 MG Tablet PO (22:38)
[2021-08-16] MEDS: Atorvastatin Calcium 80 MG Tablet PO (22:38)
[2021-08-16] MEDS: Metoprolol Tartrate 25 MG Tablet 12.5 MG PO (22:39)
[2021-08-17] VITALS (20 sets, daily range): BP systolic 100–143; BP diastolic 48–67; PULSE 62–102; RESP 16–18; TEMP 36.4–36.6; O2SAT 90–97
[2021-08-17] MEDS: Acetaminophen 325 MG Tablet 650 MG PO (01:57)
[2021-08-17] MEDS: MELATONIN 3 MG TABLET PO ×2 (01:57→21:49)
[2021-08-17] MEDS: 0.9% Normal Saline 1,000 ML 100 ML IV ×3 (04:51→21:49)
[2021-08-17 06:22] LABS: Absolute Lymphocyte Count 0.34 X10^3/uL (0.83-4.51); Absolute Neutrophil Count 3.9 X10^3/uL (2.0-7.7); Basophil# 0.01 X10^3/uL; Basophil% 0.2 % (0-1); Hematocrit 31.1 % (40-54); Hemoglobin 9.6 g/dL (13.0-16.5); Lymphocyte # 0.34 X10^3/ul (0.83-4.51); Lymphocyte % 7.4 % (19-41); Mean Corp Hgb Conc 30.9 g/dL (32-36); Mean Corpuscular Hgb 30.1 pg (27.0-32.0); Mean Corpuscular Volume 97.5 fL (80-94); Mean Platelet Vol. 10.9 fl (6.2-12.0); Monocyte# 0.35 X10^3/uL; Monocyte% 7.6 % (0-10); NRBC Flagged by Analyzer 0 % (0-5); Neutrophil # 3.89 X10^3/uL (2.7-7.7); Neutrophil % 84.4 % (47-70); POSITIVE DIFFERENTIAL YES; Platelet Count 108 K/mm3 (150-450); RBC Distribution Width CV 14.7 % (11.6-14.6); RBC Distribution Width SD 52.5 fl (35.1-43.9); Red Blood Count 3.19 M/mm3 (4.6-6.2); White Blood Count 4.6 K/mm3 (4.4-11.0)
[2021-08-17] MEDS: Pregabalin 75 MG Capsule PO ×3 (06:29→21:51)
[2021-08-17 06:31] LABS: Differential Indicated SCAN CRITERIA MET
[2021-08-17 06:36] LABS: Anion Gap 5 (5-15); BUN 42 mg/dL (7-18); BUN/Creat Ratio 27.5 RATIO (10-20); Calcium,Total 8.4 mg/dL (8.5-10.1); Chloride 110 mmol/L (98-107); Creatinine, Serum 1.53 mg/dL (0.70-1.30); EST Glomerular Filtration Rate 46 mL/min (>60); Est Glom Filt Rate - Afr Amer 56 mL/min (>60); Estimated Creatinine Clearance 37.77 ml/min; Glucose 173 mg/dL (74-106); Potassium 4.1 mmol/L (3.5-5.1); Sodium Level 140 mmol/L (136-145)
[2021-08-17] MEDS: Ipratropium/Albuterol Sulfate 3 ML AMPUL.NEB INHALATION ×4 (07:16→18:50)
[2021-08-17] MEDS: Ferrous Sulfate 325 MG Tablet PO ×2 (08:02→17:51)
[2021-08-17] MEDS: Aspirin E.C. 81 MG Tablet PO (08:02)
[2021-08-17] MEDS: Metoprolol Tartrate 25 MG Tablet 12.5 MG PO ×2 (09:02→21:49)
[2021-08-17] MEDS: Pantoprazole Sodium 40 MG Tablet PO ×2 (09:02→21:49)
[2021-08-17] MEDS: Isosorbide Mononitrate 30 MG Tablet PO (09:02)
[2021-08-17] MEDS: Cholecalciferol (VIT D3) 25 MCG TABLET (1,000 UNITS) 50 MCG PO (09:02)
[2021-08-17 09:28] LABS: CPK Total, Creatine Kinase 4843 U/L (39-308)
--- NOTE | 2021-08-17 11:58 | PCM.CONS.C ---
Assessment & Plan Assessment/Plan (1) Acute respiratory failure with hypoxia: PLAN: Appears to be due to his COPD. Patient is stable from a cardiac standpoint. He does not require any further cardiac work-up as an inpatient. He can follow-up with us as an outpatient. (2) Elevated troponin: PLAN: Appears to be related to rhabdomyolysis secondary to his fall. No further cardiac work-up required. Continue his cardiac medications. Follow-up with Dr. Bearden as an outpatient. We will sign off at this time. If we can be of any further assistance please let us know. Thank you for letting us participate in the care of this patient HPI Consult Data Date of Consult: 08/17/21 HPI Narrative HPI Narrative: REBECCA ARRIOLA, is an 81-year-old white male who presented after a all. He has history of CAD, CABG (1992-[facility]-RED to the LAD), subsequent PTCA/BMS (LAD/LCx-2010 and LCx-2012), status post AVR (1992-[facility]-23 mm [place] mechanical aortic valve prosthesis), atrial fibrillation, hyperlipidemia, and hypertension. Patient also has history of COPD. He had some shortness of breath and hypoxemia on presentation. His main complaint was pain on the right shoulder and right hip after his fall. Patient had a CPK of around 14,000 and high-sensitivity troponin in the 200s. He denies any chest pain. His shortness of breath is now back to baseline after nebulizer treatments. Prior to his PCI in the past he had pressure-like retrosternal chest pain. Review of systems: All systems reviewed. All else is negative except in HPI. [facility] Medical History Ambulates with cane Anemia due to chronic blood loss Arthritis Atherosclerotic heart disease of [place] coronary artery without angina pectoris Back pain Cardiology follow-up encounter Chronic cough Chronic pain syndrome Chronic systolic (congestive) heart failure COPD (chronic obstructive pulmonary disease) COPD (chronic obstructive pulmonary disease) Difficulty swallowing Essential hypertension Gastric reflux High cholesterol History of atrial fibrillation History of CHF (congestive heart failure) History of echocardiogram History of edema History of GI bleed History of heart attack History of pain when walking History of stress test Hx of fracture of ankle Hx of fracture of ankle Hypertension Injury of back 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 Non-rheumatic tricuspid valve insufficiency Paroxysmal atrial fibrillation Pure hypercholesterolemia Restless legs Secondary pulmonary arterial hypertension Shortness of breath on exertion Smoker Spinal stenosis of lumbar region TIA (transient ischemic attack) Tobacco use disorder Uncontrolled pain Wears dentures Wears glasses Home Medications rosuvastatin 40 mg PO QHS 07/15/13 [History Last Taken 08/15/21 22:00] ferrous sulfate 325 mg PO BIDCM 09/13/15 [History Last Taken 08/14/21 18:00] albuterol sulfate 1 puff INHALATION Q4H PRN PRN 09/25/15 [History Last Taken 06/04/18] cholecalciferol (vitamin D3) 2,000 unit PO DAILY 09/25/15 [History Last Taken 08/15/21 08:00] aspirin 81 mg PO DAILY@0800 06/24/16 [History Last Taken 08/15/21 08:00] folic acid 1 mg PO QHS 06/24/16 [History Last Taken 08/15/21 22:00] ipratropium-albuterol 3 ml INHALATION Q4H PRN PRN #30 ampul.neb 11/02/16 [Rx Last Taken 06/04/18] isosorbide mononitrate 30 mg tablet,extended release 24 hr 30 mg PO QAM 11/21/17 [History Last Taken 08/15/21 08:00] pantoprazole 40 mg tablet,delayed release 40 mg PO BID tab 01/02/18 [History Last Taken 08/15/21 22:00] warfarin 5 mg tablet 5 mg PO SUTUTHSA tab 01/02/18 [History Last Taken 08/15/21 17:00] warfarin 7.5 mg tablet 7.5 mg PO MOWEFR tab 01/02/18 [History Last Taken 08/14/21 17:00] zolpidem 10 mg PO QHS 05/26/18 [History Last Taken 08/15/21 22:00] pregabalin 75 mg PO TID 07/28/18 [History Last Taken 08/15/21 22:00] metoprolol tartrate 25 mg tablet 12.5 mg PO BID tab 11/26/19 [History Last Taken 08/15/21 22:00] nitroglycerin 0.4 mg sublingual tablet 0.4 mg SUBLINGUAL Q5M PRN #30 tab 05/25/21 [Rx Last Taken Unknown] mometasone [Asmanex HFA] 2 puff INHALATION BID 06/18/21 [History Last Taken 08/15/21 22:00] tiotropium-olodaterol [Stiolto Respimat] 1 puff INHALATION DAILY 06/18/21 [History Last Taken 08/15/21 08:00] furosemide 40 mg PO DAILY 06/21/21 [History Last Taken 08/15/21 08:00] amoxicillin-pot clavulanate 1 tab PO BID 08/16/21 [History Last Taken 08/14/21 22:00] buprenorphine 10 mcg TRANSDERMAL QWEEK 08/16/21 [History Last Taken 08/09/21 08:00] Allergy/AdvReac Type Severity Reaction Status Date / Time No Known Allergies Allergy Verified 06/21/21 18:50 Family History Son , age [address] [place] CAD (coronary artery disease) Myocardial infarction Sudden cardiac Brother CAD (coronary artery disease) Pt states all nine of his siblings have heart problems Sister CAD (coronary artery disease) Patient states all nine of his siblings have heart problems Surgical History History of coronary artery stent placement (~06/28/11) History of left heart catheterization History of lumbar fusion History of mechanical aortic valve replacement (~03/27/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) Social History Smoking Status: Current every day smoker tobacco type: cigarettes Physical Exam Const alert and oriented x3 Orientation / Consciousness: awake HEENT normocephalic Eyes no scleral icterus Neck supple Resp normal respiratory effort Resp Narrative: Bilateral wheezing noted Skin no rashes or lesions noted Neuro oriented x3 Psych mental status grossly normal Risk Stratification Risk Stratification Applicable: No Charges/Coding Visit Charges Inpatient E&M: 76940 Init Hosp L2 Objective Data Vital Signs: Vital Signs Temp Pulse Resp BP Pulse Ox 97.6 F L 63 16 143/67 H 94 08/17/21 07:51 08/17/21 09:02 08/17/21 07:51 08/17/21 07:51 08/17/21 08:07 Oxygen Flow Rate (L/min) 3 Oxygen Delivery Method Nasal Cannula Weight: 167 lb 5.294 oz Body Mass Index (BMI) 22.6 Intake & Output: Intake and Output for Last 24 Hours 08/15/21 08/16/21 08/17/21 23:59 23:59 23:59 Intake Total 2931.67 / 3131.67 1140 / 1140 Output Total 1100 / 1400 300 / 300 Balance 1831.67 / 1731.67 840 / 840 Lab / Micro Data Result Diagrams: 08/17/21 05:46 08/17/21 05:46 Labs: Laboratory Results - last 24 hr 08/16/21 08:30: Total Creatine Kinase 70910 H 08/17/21 05:46: WBC 4.6, RBC 3.19 L, Hgb 9.6 L, Hct 31.1 L, MCV 97.5 H, MCH 30.1, MCHC 30.9 L, RDW Std Deviation 52.5 H, RDW Coeff of Kalyan 14.7 H, Plt Count 108 L, MPV 10.9, Immature Gran % (Auto) 0.400, Neut % (Auto) 84.4 H, Lymph % (Auto) 7.4 L, Barber % (Auto) 7.6, Eos % (Auto) 0.0, Baso % (Auto) 0.2, Absolute Neuts (auto) 3.9, Absolute Lymphs (auto) 0.34 L, Nucleated RBC % 0 08/17/21 05:46: Sodium 140, Potassium 4.1, Chloride 110 H, Carbon Dioxide 25.0, Anion Gap 5, BUN 42 H, Creatinine 1.53 H, Estim Creat Clear Calc 37.77, Est GFR (MDRD) Af Amer 56 L, Est GFR (MDRD) Non-Af 46 L, BUN/Creatinine Ratio 27.5 H, Glucose 173 H, Calcium 8.4 L 08/17/21 05:46: Total Creatine Kinase 4843 H Micro: Microbiology 08/16/21 11:40 Urine, Clean Catch Legionella Antigen - Final 08/16/21 11:40 Urine, Clean Catch Streptococcus pneumoniae Antigen (M - Final Cardiology Labs/Tests 08/17/21 05:46: WBC 4.6, RBC 3.19 L, Hgb 9.6 L, Hct 31.1 L, MCV 97.5 H, MCH 30.1, MCHC 30.9 L, Plt Count 108 L, MPV 10.9, Immature Gran % (Auto) 0.400, Neut % (Auto) 84.4 H, Lymph % (Auto) 7.4 L, Barber % (Auto) 7.6, Eos % (Auto) 0.0, Baso % (Auto) 0.2, Absolute Neuts (auto) 3.9, Nucleated RBC % 0 08/17/21 05:46: Sodium 140, Potassium 4.1, Chloride 110 H, Carbon Dioxide 25.0, Anion Gap 5, BUN 42 H, Creatinine 1.53 H, Est GFR (MDRD) Af Amer 56 L, Est GFR (MDRD) Non-Af 46 L, BUN/Creatinine Ratio 27.5 H, Glucose 173 H, Calcium 8.4 L Rhythm: EKG: ECHO: Stress Test: Cardiac Cath: PCI: CT Surgery: Holter monitor: EPS: PPM: CXR: Chest CT Scan:
--- NOTE | 2021-08-17 13:03 | NURSING ---
Pt's daughter supplied new Buprenorphine patch from home, sent to pharmacy to verify. New patch applied to rt arm. Old Buprenorphine 10mcg/hr patch placed in Rx destoyer jug in med room with SURY Pop witnessing.
--- NOTE | 2021-08-17 14:12 | CASEMGMT ---
Social Work SW met w/pt in room, daughter also present but on the phone. SW spoke w/pt about financial and social issues, as there was a referral to SW to see pt for these reasons. Pt states does not have any financial or social concerns at this time. Pt states plans to get a new cane, states will pick it up at [employer]. Pt is not sure the reason for the referral. SW let pt know if he does have any social or financial concerns, SW can come back to speak w/pt. Daughter asked about home care when SW first entered the room, but did say it is up to the pt if he would like it. SW spoke w/pt about it, he states he thinks would be okay without it, but is open to speaking w/CM about it. SW explained will let CM know to give him additional information, to see if he would like home care. No further social service needs anticipated at this time. ZAYRA Garay
--- NOTE | 2021-08-17 14:51 | PN.HOSP_ITS ---
Subjective Subjective Found down at home. Fell and was too weak to reach for phone that was just out of arms reach. Abrasions on arms. Objective Data Objective Data Vital Signs: Vital Signs Temp Pulse Resp BP Pulse Ox 36.6 C 62 18 116/48 L 97 08/17/21 14:38 08/17/21 14:38 08/17/21 14:38 08/17/21 14:38 08/17/21 14:38 Oxygen Flow Rate (L/min) 2 Oxygen Delivery Method Room Air Weight: 75.9 kg Body Mass Index (BMI) 22.6 Intake & Output: Intake and Output for Last 24 Hours 08/15/21 08/16/21 08/17/21 23:59 23:59 23:59 Intake Total 2931.67 / 3131.67 2720 / 2720 Output Total 1100 / 1400 300 / 300 Balance 1831.67 / 1731.67 2420 / 2420 Lab / Micro Data Result Diagrams: 08/17/21 05:46 08/17/21 05:46 Labs: Laboratory Results - last 24 hr 08/17/21 05:46: WBC 4.6, RBC 3.19 L, Hgb 9.6 L, Hct 31.1 L, MCV 97.5 H, MCH 3 0.1, MCHC 30.9 L, RDW Std Deviation 52.5 H, RDW Coeff of Kalyan 14.7 H, Plt Count 108 L, MPV 10.9, Immature Gran % (Auto) 0.400, Neut % (Auto) 84.4 H, Lymph % (Auto) 7.4 L, [place] % (Auto) 7.6, Eos % (Auto) 0.0, Baso % (Auto) 0.2, Absolute Neuts (auto) 3.9, Absolute Lymphs (auto) 0.34 L, Nucleated RBC % 0 08/17/21 05:46: Sodium 140, Potassium 4.1, Chloride 110 H, Carbon Dioxide 25.0, Anion Gap 5, BUN 42 H, Creatinine 1.53 H, Estim Creat Clear Calc 37.77, Est GFR (MDRD) Af Amer 56 L, Est GFR (MDRD) Non-Af 46 L, BUN/Creatinine Ratio 27.5 H, Glucose 173 H, Calcium 8.4 L 08/17/21 05:46: Total Creatine Kinase 4843 H Micro: Microbiology 08/16/21 20:00 Sputum, Expectorated/Coughed Gram Stain - Final 08/16/21 11:40 Urine, Clean Catch Legionella Antigen - Final 08/16/21 11:40 Urine, Clean Catch Streptococcus pneumoniae Antigen (M - Final 08/15/21 21:14 Nasal Secretion SARS-CoV-2 Antigen (Rapid) - Final Physical Exam Const alert Constitutional Narrative: feeling well. denies Resp normal respiratory effort, no retractions, no use of accessory muscles and clear to auscultation bilaterally Cardio regular rate, regular rhythm, S1 normal heart sound and S2 normal heart sound GI normal to inspection, nondistended, normoactive bowel sounds, soft to palpation, non-tender and non-distended Extremity normal to inspection Assessment & Plan Assessment/Plan (1) Acute respiratory failure with hypoxia: (2) COVID: (3) NSTEMI, initial episode of care: (4) Rhabdomyolysis: QUALIFIERS: Rhabdomyolysis type: traumatic Encounter type: subsequent encounter Qualified Code(s): T79.6XXD - Traumatic ischemia of muscle, subsequent encounter PLAN: 1. Acute hypoxic respiratory failure * likely 2/2 AECOPD * wean oxygen as tolerated * covid tests negative * titrate oxygen to maintain sats >90% * breathing treatment with bronchodilators * on 4L of oxygen; doesnt wear oxygen at home. * CTA reviewed--no infiltrates, but COPD 2. AECOPD * start prednisone * BDs 3. Rhabdomyolysis * tramatic from being down for unspecified time * improving * continue IVF for another day 4. Elevated troponin * 2/2 rhabdomyolysis, NSTEMI ruled out * DW Dr. Benitez who feels troponin eleavtion is not a cardiac event, but rather skewed up due to the severe rhabdomyolysis * on aspirin and statin. already on coumadin and INR is therapeutic 5. KASSANDRA on CKD stage IIIb * improving. Suspect prerenal * Baseline creatinine is around 1.2 on admission creatinine was 1.8. * Trend creatinine * Hold all nephrotoxic meds. 5. Chronic heart failure with reduced ejection fraction * on lasix 40mg daily. Will hold this as he is in Kassandra on CKD stage 3, as well as in light of rhabdomyolysis. 6. CAD s/p CABG 1992 and stents in 2012. On aspirin and statin as well as metoprolol. Also on Coumadin. 7. Valvular heart disease status post aortic valve replacement * on coumadin. INR is 2.9 8. Paroxysmal A. fib: On metoprolol and coumadin. INR is therapeutic at 2.9 9. Hypertension: On metoprolol and Lasix 10. Hyperlipidemia: On statin 11. Chronic neuropathy: On pregabalin 12. GERD: PPI DVT prophylaxis: On Coumadin. INR is therapeutic CODE STATUS DNR CCA no intubation Notified by nursing that the patient's daughter does not want me involved in the patient's care. Daughter was not present when I initially evaluated the patient and he had no objection to interacting with me. I last saw the patient in 2018. Will transfer to another physician on 08/18 since I was not made aware of this until after I had seen the patient. Charges/Coding Visit Charges Inpatient E&M: 12915 Subs Hosp L2
[2021-08-17 17:14] LABS: International Normalized Ratio 3.4; Prothrombin Time (Protime)PT. 33.3 SECONDS (11.7-14.9)
[2021-08-17] MEDS: predniSONE 20 MG Tablet 40 MG PO (17:51)
[2021-08-17] MEDS: Folic Acid 1 MG Tablet PO (21:49)
[2021-08-17] MEDS: Atorvastatin Calcium 80 MG Tablet PO (21:49)
[2021-08-18] VITALS (20 sets, daily range): BP systolic 99–138; BP diastolic 55–80; PULSE 60–105; RESP 16–20; TEMP 36.5–36.9; O2SAT 88–98
[2021-08-18] MEDS: Albuterol 2.5 MG/3 ML VIAL.NEB. INHALATION (02:04)
[2021-08-18] MEDS: 0.9% Normal Saline 1,000 ML 100 ML IV (06:35)
[2021-08-18] MEDS: Pregabalin 75 MG Capsule PO ×3 (06:35→21:13)
[2021-08-18] MEDS: Ipratropium/Albuterol Sulfate 3 ML AMPUL.NEB INHALATION ×4 (07:08→20:54)
[2021-08-18 07:12] LABS: Absolute Lymphocyte Count 0.19 X10^3/uL (0.83-4.51); Absolute Neutrophil Count 2.6 X10^3/uL (2.0-7.7); Hematocrit 30.1 % (40-54); Hemoglobin 9.2 g/dL (13.0-16.5); Lymphocyte # 0.19 X10^3/ul (0.83-4.51); Lymphocyte % 6.5 % (19-41); Mean Corp Hgb Conc 30.6 g/dL (32-36); Mean Corpuscular Hgb 30.5 pg (27.0-32.0); Mean Corpuscular Volume 99.7 fL (80-94); Monocyte# 0.12 X10^3/uL; Monocyte% 4.1 % (0-10); NRBC Flagged by Analyzer 0 % (0-5); Neutrophil % 88.4 % (47-70); POSITIVE DIFFERENTIAL YES; Platelet Count 100 K/mm3 (150-450); RBC Distribution Width SD 55.1 fl (35.1-43.9); Red Blood Count 3.02 M/mm3 (4.6-6.2); White Blood Count 2.9 K/mm3 (4.4-11.0)
[2021-08-18 07:17] LABS: Differential Indicated SCAN CRITERIA MET
[2021-08-18 07:21] LABS: International Normalized Ratio 3.8; Prothrombin Time (Protime)PT. 36.3 SECONDS (11.7-14.9)
[2021-08-18] MEDS: Aspirin E.C. 81 MG Tablet PO (07:33)
[2021-08-18] MEDS: predniSONE 20 MG Tablet 40 MG PO (07:36)
[2021-08-18] MEDS: Ferrous Sulfate 325 MG Tablet PO ×2 (07:36→16:22)
[2021-08-18 07:48] LABS: ALB/GLOB Ratio 0.9 RATIO (0.9-2.4); AST(SGOT) 170 U/L (15-37); Alanine Aminotransfer ALT/SGPT 78 U/L (16-61); Albumin, Serum 2.7 g/dL (3.2-5.0); Alkaline Phosphatase 127 U/L (45-117); Anion Gap 3 (5-15); BUN 37 mg/dL (7-18); BUN/Creat Ratio 27.8 RATIO (10-20); Calcium,Total 8.4 mg/dL (8.5-10.1); Chloride 115 mmol/L (98-107); Creatinine, Serum 1.33 mg/dL (0.70-1.30); EST Glomerular Filtration Rate 55 mL/min (>60); Est Glom Filt Rate - Afr Amer 66 mL/min (>60); Estimated Creatinine Clearance 43.45 ml/min; Globulin 3.1 g/dL (2.2-4.2); Glucose 193 mg/dL (74-106); Potassium 4.6 mmol/L (3.5-5.1); Protein, Total 5.8 g/dL (6.4-8.2); Sodium Level 142 mmol/L (136-145)
[2021-08-18 08:40] LABS: Macrocytosis 1+
[2021-08-18] MEDS: Isosorbide Mononitrate 30 MG Tablet PO (09:44)
[2021-08-18] MEDS: Cholecalciferol (VIT D3) 25 MCG TABLET (1,000 UNITS) 50 MCG PO (09:44)
[2021-08-18] MEDS: Metoprolol Tartrate 25 MG Tablet 12.5 MG PO ×2 (09:44→21:13)
[2021-08-18] MEDS: Pantoprazole Sodium 40 MG Tablet PO ×2 (09:44→21:14)
--- NOTE | 2021-08-18 15:23 | PCM.PN.HOSP ---
Subjective Subjective Patient states he is feeling better.He indicates he is having less shortness of breath. He is currently on 2 L nasal cannula with the plan to wean oxygen today as able. Patient is not oxygen dependent at home. He is very interested in being able to go home and states he has considerable help from his daughter and grandson. He is willing to accept home health care if needed.When questioned about his swallowing issues after reviewing his CTA of his chest he states that he has intermittent feeling of things getting stuck in his distal esophagus but has not been consistent and he has not noticed that more with any types of food than others. He states usually he can take some small sips of water and get it to clear.He does acknowledge that he smoked for 70 years. Objective Data Objective Data Vital Signs: Vital Signs Temp Pulse Resp BP Pulse Ox 97.7 F L 60 18 138/59 H 92 08/18/21 07:37 08/18/21 15:17 08/18/21 15:17 08/18/21 09:44 08/18/21 09:01 Oxygen Flow Rate (L/min) 2 Oxygen Delivery Method Nasal Cannula Weight: 80.5 kg Body Mass Index (BMI) 22.6 Intake & Output: Intake and Output for Last 24 Hours 08/16/21 08/17/21 08/18/21 23:59 23:59 23:59 Intake Total 2931.67 / 3131.67 4136.67 / 4136.67 876.67 / 876.67 Output Total 1100 / 1400 300 / 300 Balance 1831.67 / 1731.67 3836.67 / 3836.67 876.67 / 876.67 Lab / Micro Data Result Diagrams: 08/18/21 07:06 08/18/21 07:06 Labs: Laboratory Results - last 24 hr 08/17/21 16:55: PT 33.3 H, INR 3.4 08/18/21 07:06: WBC 2.9 L, RBC 3.02 L, Hgb 9.2 L, Hct 30.1 L, MCV 99.7 H, MCH 30.5, MCHC 30.6 L, RDW Std Deviation 55.1 H, RDW Coeff of Kalyan 15.0 H, Plt Count 100 L, MPV 11.0, Immature Gran % (Auto) 1.000 H, Neut % (Auto) 88.4 H, Lymph % (Auto) 6.5 L, [place] % (Auto) 4.1, Eos % (Auto) 0.0, Baso % (Auto) 0.0, Absolute Neuts (auto) 2.6, Absolute Lymphs (auto) 0.19 L, Nucleated RBC % 0, Diff Path Review May foll, Macrocytosis 1+ 08/18/21 07:06: PT 36.3 H, INR 3.8 08/18/21 07:06: Sodium 142, Potassium 4.6, Chloride 115 H, Carbon Dioxide 24.0, Anion Gap 3 L, BUN 37 H, Creatinine 1.33 H, Estim Creat Clear Calc 43.45, Est GFR (MDRD) Af Amer 66, Est GFR (MDRD) Non-Af 55 L, BUN/Creatinine Ratio 27.8 H, Glucose 193 H, Calcium 8.4 L, Total Bilirubin 0.40, AST 170 H, ALT 78 H, Alkaline Phosphatase 127 H, Total Protein 5.8 L, Albumin 2.7 L, Globulin 3.1, Albumin/Globulin Ratio 0.9 Micro: Microbiology 08/16/21 20:00 Sputum, Expectorated/Coughed Gram Stain - Final 08/16/21 20:00 Sputum, Expectorated/Coughed Respiratory Culture - Preliminary Appears to be normal respiratory dashawn. Further studies to follow. 08/16/21 11:40 Urine, Clean Catch Legionella Antigen - Final 08/16/21 11:40 Urine, Clean Catch Streptococcus pneumoniae Antigen (M - Final 08/15/21 21:14 Nasal Secretion SARS-CoV-2 Antigen (Rapid) - Final Physical Exam Const alert, oriented x3, no apparent distress, average body habitus and well nourished Constitutional Narrative: Elderly white male sitting up in a chair at the bedside, currently on 2 L nasal cannula and appears comfortable, nontoxic, very pleasant Exam Limitations: no limitations HEENT head/scalp atraumatic and moist oral mucous membranes HEENT Narrative: Poor dentition, Mallampati 2, no thrush Head and Scalp: normocephalic Eyes PERRL and EOMs intact bilaterally Eyes Narrative: Mild conjunctival pallor with no scleral icterus Neck no lymphadenopathy, supple and no JVD Neck Narrative: Trachea midline, no thyroid enlargement Resp normal respiratory effort, no retractions, no use of accessory muscles and clear to auscultation bilaterally Resp Narrative: Diffusely diminished but clear Auscultation: Negative for crackles, rales, rhonchi or wheezes Cardio regular rate, regular rhythm, S1 normal heart sound, S2 normal heart sound, no murmurs, no rub, no gallops, no clicks and no JVD GI normal to inspection, nondistended, normoactive bowel sounds, soft to palpation, non-tender and non-distended Extremity no clubbing, cyanosis or edema Peripheral Pulses: Yes pulses 2+ throughout Skin no wounds, skin turgor normal, no jaundice, no petechiae and no mottling Skin Narrative: Scattered ecchymosis Neuro oriented x3, CN's II-XII intact bilaterally, moves all extremities and no focal motor deficits Neuro Narrative: Mild generalized weakness-proximal greater than distal Sensorium / Orientation: awake and alert Motor Exam: strength 5/5 throughout Psych affect normal Psych Narrative: Very pleasant and cooperative Assessment & Plan Assessment/Plan (1) Esophageal thickening: (2) Rhabdomyolysis: QUALIFIERS: Rhabdomyolysis type: traumatic Encounter type: subsequent encounter Qualified Code(s): T79.6XXD - Traumatic ischemia of muscle, subsequent encounter (3) Elevated troponin: (4) Acute respiratory failure with hypoxia: (5) Lymphopenia: PLAN: Acute hypoxic respiratory failure -Rapid Covid and PCR both negative -Suspect acute viral illness was the etiology -Strep pneumo and Legionella antigen are negative -Check influenza -Patient is currently on 2 L nasal cannula and has been improving clinically -CTA was performed and did not show Embolism,But does demonstrate emphysematous changes in bilateral lungs, no infiltrates were noted -Continue pulmonary toilet and incentive spirometry -Prednisone taper initiated yesterday 08/17/2021 -Weaning oxygen as baseline is room air -We will need to check with ambulation prior to discharge-->It is possible patient will need supplemental oxygen given the severity of his lung disease on his CT -Would recommend pulmonary Outpatient follow-up Rhabdomyolysis -Resolving -Peak CK was 14,275 and had trended down significantly to 4843 yesterday -No reason to Repeat -We will discontinue IV fluids at this time -Renal function is close to normal Mechanical fall -patient has had no injury -PT and OT are following -Patient was resistant to skilled facility at discharge but is open to home health care at discharge -Continue therapy services while hospitalized SALVADOR on CKD stage IIIa -Baseline serum creatinine appears to be between 1.1 and 1.3 -Maximum creatinine this admission was 1.8 -Current serum creatinine is 1.33 -Discontinue IV fluids as p.o. intake is adequate -Repeat BMP in a.m. Lymphopenia -This is consistent with acute viral illness -Continue to monitor counts ? Distal esophageal mass -Noted on CT of his chest -Discussed with patient-->Patient admits to having issues with swallowing periodically with food getting stuck in his distal esophagus creating pain -Consult GI for probable endoscopy -Continue twice daily Protonix -Patient is high risk for esophageal carcinoma given his chronic tobacco abuse history -Patient is on chronic anticoagulation for aortic valve-mechanical -Is slightly supratherapeutic at 3.8 today -Coumadin is on hold COPD -Encouraged tobacco cessation -Recommend outpatient pulmonary follow-up -Continue treatment as above Chronic anemia -Hemoglobin is stable -Continue to monitor -->Especially with supratherapeutic INR Troponin elevation -Patient was evaluated by cardiology -Case was discussed with Dr. Benitez who feels this troponin elevation is not related to a cardiac event rather than elevated secondary to his rhabdo on admission -Continue aspirin and statin Chronic heart failure with reduced ejection fraction -Continue Lasix on discharge -Held secondary to SALVADOR on admission -Continue IV fluids -Most recent echo done on 10/11/2020 shows an EF of 45% with a mean aortic valve gradient of 20 mmHg CAD/hypertension/hyperlipidemia -Status post CABG in 1992 and stents in 2012 -Continue aspirin/statin/metoprolol History of valvular heart disease status post mechanical aortic valve replacement -Patient is chronically anticoagulated with Coumadin -Current INR is 3.8 -Goal INR should be 2-3 with aortic valve -Hold Coumadin given the fact that he is supratherapeutic and that he potentially needs a biopsy of this distal esophageal mass PAF -Patient is currently in normal sinus rhythm -Continue metoprolol -Coumadin on hold secondary to supratherapeutic INR Supratherapeutic INR -Hold Coumadin -Repeat INR in the morning Chronic neuropathy -Continue pregabalin GERD -PPI DVT prophylaxis -Supratherapeutic INR CODE STATUS -DNR CCA with no intubation Charges/Coding Visit Charges Inpatient E&M: 74836 [facility] L3
--- NOTE | 2021-08-18 16:30 | CASEMGMT ---
SURY MUNOZ in to pt room, pt sitting on eob doing IS. Discussed dc planning. Pt is interested in HHC. Patient was provided a list of HHC providers including quality and resource use data and consistent with the patient?s preferred geographic region, medical needs, and insurance network. Pt to review list and SURY MUNOZ to check back with him on his choices in the morning. Pt denies further needs.
--- NOTE | 2021-08-18 18:23 | CON.PCM.GI_ITS ---
HPI Consult Data Date of Consult: 08/18/21 HPI Narrative HPI Narrative: REBECCA ARRIOLA, is a 82 y/o M w/ PMHx: Chronic anemia/Fe Deficiency anemia, PAF, HTN, HLD, GERD, Chronic systolic CHF, COPD, CAD s/p CABG RED-LAD 1193 and PCI x 2 , Valvular Heart Disease s/p AVR 1993 [facility]. He presented to the ED on 08/15/2021 after falling out of his bed. He presented to the ED with lacerations of the right hip knee shoulder. He had a CT of the chest that had shown thickening in the distal esophagus. He did have some shortness of breath. His CT scan did not show any signs of pneumonia. He is unvaccinated against Covid. He tested negative for Covid with a rapid antigen and a PCR. I was asked to see him due to the fact that he is having es ophageal dysphagia and has a history of GERD. He also admits to a chronic cough secondary to COPD which makes his GERD worse. He does take proton pump inhibitors as needed but not on a daily basis. He also admits to weight loss of about 20 pounds. [facility] Medical History (Updated 08/18/21 @ 15:[address] Aspen Machado, DO) Ambulates with cane Anemia due to chronic blood loss Arthritis Atherosclerotic heart disease of [place] coronary artery without angina pectoris Back pain Cardiology follow-up encounter Chronic cough Chronic pain syndrome Chronic systolic (congestive) heart failure COPD (chronic obstructive pulmonary disease) COPD (chronic obstructive pulmonary disease) Difficulty swallowing Essential hypertension Gastric reflux High cholesterol History of atrial fibrillation History of CHF (congestive heart failure) History of echocardiogram History of edema History of GI bleed History of heart attack History of pain when walking History of stress test Hx of fracture of ankle Hx of fracture of ankle Hypertension Injury of back Ischemic cardiomyopathy detention current use of anticoagulant 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 Paroxysmal atrial fibrillation Pure hypercholesterolemia Restless legs Secondary pulmonary arterial hypertension Shortness of breath on exertion Smoker Spinal stenosis of lumbar region TIA (transient ischemic attack) Tobacco use disorder Uncontrolled pain Wears dentures Wears glasses Home Medications rosuvastatin 40 mg PO QHS 07/15/13 [History Last Taken 08/15/21 22:00] ferrous sulfate 325 mg PO BIDCM 09/13/15 [History Last Taken 08/14/21 18:00] albuterol sulfate 1 puff INHALATION Q4H PRN PRN 09/25/15 [History Last Taken 06/04/18] cholecalciferol (vitamin D3) 2,000 unit PO DAILY 09/25/15 [History Last Taken 08/15/21 08:00] aspirin 81 mg PO DAILY@0800 06/24/16 [History Last Taken 08/15/21 08:00] folic acid 1 mg PO QHS 06/24/16 [History Last Taken 08/15/21 22:00] ipratropium-albuterol 3 ml INHALATION Q4H PRN PRN #30 ampul.neb 11/02/16 [Rx Last Taken 06/04/18] isosorbide mononitrate 30 mg tablet,extended release 24 hr 30 mg PO QAM 11/21/17 [History Last Taken 08/15/21 08:00] pantoprazole 40 mg tablet,delayed release 40 mg PO BID tab 01/02/18 [History Last Taken 08/15/21 22:00] warfarin 5 mg tablet 5 mg PO SUTUTHSA tab 01/02/18 [History Last Taken 08/15/21 17:00] warfarin 7.5 mg tablet 7.5 mg PO MOWEFR tab 01/02/18 [History Last Taken 08/14/21 17:00] zolpidem 10 mg PO QHS 05/26/18 [History Last Taken 08/15/21 22:00] pregabalin 75 mg PO TID 07/28/18 [History Last Taken 08/15/21 22:00] metoprolol tartrate 25 mg tablet 12.5 mg PO BID tab 11/26/19 [History Last Taken 08/15/21 22:00] nitroglycerin 0.4 mg sublingual tablet 0.4 mg SUBLINGUAL Q5M PRN #30 tab 05/25/21 [Rx Last Taken Unknown] mometasone [Asmanex HFA] 2 puff INHALATION BID 06/18/21 [History Last Taken 08/15/21 22:00] tiotropium-olodaterol [Stiolto Respimat] 1 puff INHALATION DAILY 06/18/21 [History Last Taken 08/15/21 08:00] furosemide 40 mg PO DAILY 06/21/21 [History Last Taken 08/15/21 08:00] amoxicillin-pot clavulanate 1 tab PO BID 08/16/21 [History Last Taken 08/14/21 22:00] buprenorphine 10 mcg TRANSDERMAL QWEEK 08/16/21 [History Last Taken 08/09/21 08:00] Allergy/AdvReac Type Severity Reaction Status Date / Time No Known Allergies Allergy Verified 06/21/21 18:50 Family History Son , age 44 from [place] CAD (coronary artery disease) Myocardial infarction Sudden cardiac Brother CAD (coronary artery disease) Pt states all nine of his siblings have heart problems Sister CAD (coronary artery disease) Patient states all nine of his siblings have heart problems Surgical History History of coronary artery stent placement (~06/28/11) History of left heart catheterization History of lumbar fusion History of mechanical aortic valve replacement (~03/27/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) Social History Smoking Status: Current every day smoker tobacco type: cigarettes ROS Gastrointestinal Gastrointestinal: Reports other Details: Dysphagia Physical Exam Const alert General Appearance: cooperative Orientation / Consciousness: oriented to person HEENT hearing grossly normal bilaterally Head and Scalp: normal to inspection Face and Sinus: face symmetric Nose: external nose normal Mouth: oral and palatal mucosa normal Eyes conjunctivae normal General Eye: normal appearance of both eyes Neck full ROM General: normal visual inspection Lymph Lymphatic: no lymphadenopathy noted Chest inspection of chest normal and palpation of chest normal Chest: symmetrical chest wall rise Resp normal respiratory effort Effort and Inspection: able to speak in complete sentences Cardio regular rate GI non-distended Percussion: normal to percussion Rectal Exam: deferred Neuro Speech: speech normal Gait (Neuro): normal gait Lab / Micro Data Result Diagrams: 08/18/21 07:06 08/18/21 07:06 Labs: Laboratory Results - last 24 hr 08/18/21 07:06: WBC 2.9 L, RBC 3.02 L, Hgb 9.2 L, Hct 30.1 L, MCV 99.7 H, MCH 30.5, MCHC 30.6 L, RDW Std Deviation 55.1 H, RDW Coeff of Kalyan 15.0 H, Plt Count 100 L, MPV 11.0, Immature Gran % (Auto) 1.000 H, Neut % (Auto) 88.4 H, Lymph % (Auto) 6.5 L, [place] % (Auto) 4.1, Eos % (Auto) 0.0, Baso % (Auto) 0.0, Absolute Neuts (auto) 2.6, Absolute Lymphs (auto) 0.19 L, Nucleated RBC % 0, Diff Path Review November, Macrocytosis 1+ 08/18/21 07:06: PT 36.3 H, INR 3.8 08/18/21 07:06: Sodium 142, Potassium 4.6, Chloride 115 H, Carbon Dioxide 24.0, Anion Gap 3 L, BUN 37 H, Creatinine 1.33 H, Estim Creat Clear Calc 43.45, Est GFR (MDRD) Af Amer 66, Est GFR (MDRD) Non-Af 55 L, BUN/Creatinine Ratio 27.8 H, Glucose 193 H, Calcium 8.4 L, Total Bilirubin 0.40, AST 170 H, ALT 78 H, Alkaline Phosphatase 127 H, Total Protein 5.8 L, Albumin 2.7 L, Globulin 3.1, Albumin/Globulin Ratio 0.9 Micro: Microbiology 08/16/21 20:00 Sputum, Expectorated/Coughed Gram Stain - Final 08/16/21 20:00 Sputum, Expectorated/Coughed Respiratory Culture - Preliminary Appears to be normal respiratory dashawn. Further studies to follow. Assessment & Plan Assessment/Plan (1) Esophageal thickening: PLAN: The differential diagnosis for thickening of the distal esophagus does include esophageal malignancy, esophageal stricture, eosinophilic esophagitis, erosive esophagitis, esophageal web. He will undergo an upper endoscopy evaluate his upper GI tract. He was explained alternatives, risk, benefits including not withstanding bleeding, infection, sepsis, perforation, Need for emergent surgery and .. He will have an ASA of 3. Charges/Coding Visit Charges Inpatient E&M: 70479 Init Hosp L2
[2021-08-18] MEDS: Folic Acid 1 MG Tablet PO (21:13)
[2021-08-18] MEDS: Atorvastatin Calcium 80 MG Tablet PO (21:13)
[2021-08-18] MEDS: MELATONIN 3 MG TABLET PO (21:16)
[2021-08-19] VITALS (28 sets, daily range): BP systolic 104–148; BP diastolic 53–76; PULSE 50–128; RESP 16–20; TEMP 36.6–37.1; O2SAT 92–100; BMI 25.7
--- NOTE | 2021-08-19 | ESO_PTH ---
PATIENT: REBECCA ARRIOLA I LOC: MS3 U#:[id number] AGE/SX: 81/M [place] [facility] [place]16/[address]: Dr. Matthew Jacome MD : [id number] BED: 1 DIS: 08/20/2021 SPEC #: [id number] RECD: 08/19/21 15:52 STATUS: ANYI NEGRON #: [id number] ANGEL: 08/19/21 00:[address]: Fazal Muir DEPT: SURGICAL PATHOLOGY RECD BY: [place] ENTERED: 08/20/21 08:26 SP TYPE: ESOPH BX OTHR DR: MD Dr. Pancho Calderon DO Dr. Nicholas F Kotsonis, MD Dr. Nagapradee Nagajothi, MD Dr. Paul Nielsen, MD Tissues: Esophagus, NOS Procedures: Surgery Specimen Level IV Comments: @ Ordering doctor for SUIV edited from to @ by KULDIP at 08/20/21923 @ Submitting doctor edited from to @ by RGOOD at 08/20/21923 HEADER OPERATION: EGD ([facility] [place]) PRE-OP DIAGNOSIS: Esophageal thickening TISSUE SUBMITTED: Random esophagus biopsy MICROSCOPIC DIAGNOSIS Random esophagus, biopsy: Acute inflammation. Fungal hyphae and budding forms present. See Comment. HECTOR/hector 08/21/21 COMMENT GMS stain with matched control supports the diagnosis. MICROSCOPIC DESCRIPTION Slides are reviewed. GROSS DESCRIPTION Received is one container labeled with the patient name and designated random esophagus biopsy. The specimen consists of multiple irregular fragments of light frausto soft tissue that together measure 1 x 0.6 x 0.1 cm. The specimen is totally submitted in one cassette. AM:rober 08/20/2021 TC:3 CPT: 33419,64348
[2021-08-19] MEDS: Ipratropium/Albuterol Sulfate 3 ML AMPUL.NEB INHALATION ×5 (03:01→20:00)
[2021-08-19] MEDS: Pregabalin 75 MG Capsule PO ×2 (05:32→22:04)
[2021-08-19 06:26] LABS: Absolute Neutrophil Count 5.1 X10^3/uL (2.0-7.7); Hematocrit 30.2 % (40-54); Lymphocyte % 6.7 % (19-41); Mean Corp Hgb Conc 29.8 g/dL (32-36); Mean Corpuscular Hgb 29.8 pg (27.0-32.0); Mean Platelet Vol. 11.7 fl (6.2-12.0); Monocyte# 0.43 X10^3/uL; Monocyte% 7.2 % (0-10); NRBC Flagged by Analyzer 0 % (0-5); Neutrophil # 5.12 X10^3/uL (2.7-7.7); Neutrophil % 85.4 % (47-70); POSITIVE DIFFERENTIAL YES; Platelet Count 122 K/mm3 (150-450); RBC Distribution Width CV 15.2 % (11.6-14.6); RBC Distribution Width SD 55.7 fl (35.1-43.9); Red Blood Count 3.02 M/mm3 (4.6-6.2)
[2021-08-19 06:29] LABS: Differential Indicated SCAN CRITERIA MET
[2021-08-19 06:34] LABS: International Normalized Ratio 3.8; Prothrombin Time (Protime)PT. 36.8 SECONDS (11.7-14.9)
[2021-08-19 06:43] LABS: Anion Gap 4 (5-15); BUN 35 mg/dL (7-18); BUN/Creat Ratio 29.2 RATIO (10-20); Calcium,Total 9.1 mg/dL (8.5-10.1); Chloride 115 mmol/L (98-107); EST Glomerular Filtration Rate 61 mL/min (>60); Est Glom Filt Rate - Afr Amer 74 mL/min (>60); Estimated Creatinine Clearance 48.16 ml/min; Glucose 152 mg/dL (74-106); Potassium 4.8 mmol/L (3.5-5.1); Sodium Level 144 mmol/L (136-145)
[2021-08-19 06:45] LABS: Differential Comment SCANNED
--- NOTE | 2021-08-19 09:31 | CASEMGMT ---
Addendum entered by Jackie Ramos 08/19/21 14:48: Received acceptance from [facility], they will see pt on Tuesday. Pt is currently off of the floor. Unable to notify him. Addendum entered by Jackie Ramos 08/19/21 13:05: SURY MUNOZ back into pt room, pt has a straight cane with him and states his dtr has ordered a bed cane from [employer]. Denies further DME needs. Original Note: SURY MUNOZ in to pt room, pt sitting up in chair. He states his choice for [facility] is [facility]. TC to Annika at [facility] to make referral. She states once a dc date is known to call back for acceptance.
[2021-08-19] MEDS: Metoprolol Tartrate 25 MG Tablet 12.5 MG PO ×2 (09:38→22:02)
--- NOTE | 2021-08-19 09:56 | CASEMGMT ---
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 SW reviewed chart. Both HCPOA and LW are on file at [facility]. SW printed off documents and placed on pt's chart. Lily Ann MSW, MOTHERCRAFT NURSE
[2021-08-19 10:26] LABS: Pathologist Review Reviewed
--- NOTE | 2021-08-19 11:20 | PCM.PN.HOSP ---
Subjective Subjective Doing well, no issues overnight. No worsening shortness of breath or chest pain. Objective Data Objective Data Vital Signs: Vital Signs Temp Pulse Resp BP Pulse Ox 98.0 F 70 18 148/69 H 100 08/19/21 08:01 08/19/21 09:38 08/19/21 08:01 08/19/21 08:01 08/19/21 08:01 Oxygen Flow Rate (L/min) 2 Oxygen Delivery Method Nasal Cannula Weight: 179 lb 7.3 oz Body Mass Index (BMI) 25.7 Intake & Output: Intake and Output for Last 24 Hours 08/18/21 08/19/21 08/20/21 03:59 03:59 03:59 Intake Total 3936.67 / 3936.67 2818.34 / 2818.34 Output Total 300 / 300 Balance 3936.67 / 3936.67 2518.34 / 2518.34 Lab / Micro Data Result Diagrams: 08/19/21 05:45 08/19/21 05:45 Labs: Laboratory Results - last 24 hr 08/18/21 07:06: Diff Path Review Reviewed 08/19/21 05:45: WBC 6.0, RBC 3.02 L, Hgb 9.0 L, Hct 30.2 L, MCV 100.0 H, MCH 29.8, MCHC 29.8 L, RDW Std Deviation 55.7 H, RDW Coeff of Kalyan 15.2 H, Plt Count 122 L, MPV 11.7, Immature Gran % (Auto) 0.700, Neut % (Auto) 85.4 H, Lymph % (Auto) 6.7 L, [place] % (Auto) 7.2, Eos % (Auto) 0.0, Baso % (Auto) 0.0, Absolute Neuts (auto) 5.1, Absolute Lymphs (auto) 0.40 L, Nucleated RBC % 0, Differential Comment SCANNED 08/19/21 05:45: PT 36.8 H, INR 3.8 08/19/21 05:45: Sodium 144, Potassium 4.8, Chloride 115 H, Carbon Dioxide 25.0, Anion Gap 4 L, BUN 35 H, Creatinine 1.20, Estim Creat Clear Calc 48.16, Est GFR (MDRD) Af Amer 74, Est GFR (MDRD) Non-Af 61, BUN/Creatinine Ratio 29.2 H, Glucose 152 H, Calcium 9.1 Micro: Microbiology 08/16/21 20:00 Sputum, Expectorated/Coughed Gram Stain - Final 08/16/21 20:00 Sputum, Expectorated/Coughed Respiratory Culture - Preliminary Presumptive C albicans Mixed Adelia 08/16/21 11:40 Urine, Clean Catch Legionella Antigen - Final 08/16/21 11:40 Urine, Clean Catch Streptococcus pneumoniae Antigen (M - Final 08/15/21 21:14 Nasal Secretion SARS-CoV-2 Antigen (Rapid) - Final Physical Exam Const alert, oriented x3 and no apparent distress General Appearance: cooperative HEENT normocephalic and moist oral mucous membranes Eyes PERRL, EOMs intact bilaterally and conjunctivae normal Neck supple and no JVD Resp normal respiratory effort, no retractions and no use of accessory muscles Auscultation: diminished lung sounds; Negative for crackles, rales, rhonchi or wheezes Cardio regular rate, regular rhythm, S1 normal heart sound, S2 normal heart sound and no murmurs GI soft to palpation, non-tender and non-distended; Negative for hepatosplenomegaly Extremity no clubbing, cyanosis or edema Skin no rashes or lesions noted Neuro no focal motor deficits and no sensory deficits noted Psych affect normal Appearance: appropriate Assessment & Plan Assessment/Plan (1) Esophageal thickening: (2) Rhabdomyolysis: QUALIFIERS: Rhabdomyolysis type: traumatic Encounter type: subsequent encounter Qualified Code(s): T79.6XXD - Traumatic ischemia of muscle, subsequent encounter (3) Elevated troponin: (4) Acute respiratory failure with hypoxia: (5) Lymphopenia: PLAN: 1. Acute hypoxic respiratory failure secondary to COPD versus acute viral illness -Rapid Covid and PCR both negative -Suspect acute viral illness was the etiology -Strep pneumo and Legionella antigen are negative ?Influenza negative -Patient is currently on 2 L nasal cannula and has been improving clinically -CTA was performed and did not show Embolism,But does demonstrate emphysematous changes in bilateral lungs, no infiltrates were noted -Continue pulmonary toilet and incentive spirometry -Prednisone taper initiated 08/17/2021 ?Continue with inhalers 2. Elevated troponin due to rhabdomyolysis secondary to mechanical fall/SALVADOR on CKD 3 a ?Rhabdo is resolving, creatinine is normal, SALVADOR has resolved ?Refuses SNF however would be okay with home health and home PT ?Cardiology felt that the elevation in troponin was secondary to his rhabdo given the fact that he has no chest pain and EKGs were unremarkable 3. Distal esophageal mass ?He has had some difficulty with swallowing ?We will proceed with an EGD today for biopsy ?Appreciate GIs assistance 4. CAD status post CABG/HTN/HLD/chronic systolic CHF/status post mechanical AVR/paroxysmal A. fib ?Coumadin was supratherapeutic, will hold and monitor ?We will hold his Lasix secondary to his SALVADOR and his rhabdo ?Echo on 10/11/2020 with an EF of 45% ?Continue with aspirin, statin, metoprolol ?Continue with isosorbide mono nitrate 5. Chronic neuropathy ?Stable ?Continue with Lyrica 6. GERD ?Stable ?Continue with PPI DVT: Supratherapeutic INR Charges/Coding Visit Charges Inpatient E&M: 48664 Subs Hosp L2
--- NOTE | 2021-08-19 14:32 | OP.CCLET_ITS ---
04/05/2022 Guillermo Pritchard MD [address] [id number] Re : Upper GI endoscopy procedure for Kash Montejo Dear Dr. Pritchard This procedure was performed on Thursday, August 19, 2021. My impressions and recommendations are as follows: Impressions : - Esophageal plaques were found, consistent with candidiasis. Biopsied. - Non-obstructing Schatzki ring. Dilated. - Normal stomach. - Normal second portion of the duodenum. Recommendations : - [facility]. - Advance diet as tolerated today. - Nystatin suspension 100,000 units PO QID for 1 week. - Diflucan (fluconazole) 100 mg PO daily for 2 weeks. - Continue present medications. My findings are described in the full procedure note, which is enclosed. If I can be of further assistance, please feel free to contact me at . Sincerely, Fazal Friend, 08/19/2021 2:31:52 PM This report has been signed electronically.
--- NOTE | 2021-08-19 14:32 | OP.EGD_ITS ---
Patient Name: Kash Montejo Procedure Date: 08/19/2021 2:03 PM Date of : 1940 Age: 81 Procedure: Upper GI endoscopy Indications: Dysphagia Providers: Fzaal Muir DO Referring MD: Pancho Tillman Medicines: See the Anesthesia note for documentation of the administered medications Complications: No immediate complications. Procedure: Pre-Anesthesia Assessment: - Prior to the procedure, a History and Physical was performed, and patient medications and allergies were reviewed. The patient is competent. The risks and benefits of the procedure and the sedation options and risks were discussed with the patient. All questions were answered and informed consent was obtained. Patient identification and proposed procedure were verified by the physician in the pre-procedure area. Mental Status Examination: alert and oriented. Airway Examination: normal oropharyngeal airway and neck mobility. Respiratory Examination: clear to auscultation. CV Examination: normal. Prophylactic Antibiotics: The patient does not require prophylactic antibiotics. Prior Anticoagulants: The patient has taken no previous anticoagulant or antiplatelet agents. ASA Grade Assessment: II - A patient with mild systemic disease. After reviewing the risks and benefits, the patient was deemed in satisfactory condition to undergo the procedure. The anesthesia plan was to use moderate sedation / analgesia (conscious sedation). Immediately prior to administration of medications, the patient was re-assessed for adequacy to receive sedatives. The heart rate, respiratory rate, oxygen saturations, blood pressure, adequacy of pulmonary ventilation, and response to care were monitored throughout the procedure. The physical status of the patient was re-assessed after the procedure. After obtaining informed consent, the endoscope was passed under direct vision. Throughout the procedure, the patient's blood pressure, pulse, and oxygen saturations were monitored continuously. The gastroscope was introduced through the mouth, and advanced to the second part of duodenum. The upper GI endoscopy was accomplished without difficulty. The patient tolerated the procedure well. Moderate Sedation: Moderate (conscious) sedation was administered by the endoscopy nurse and supervised by the endoscopist. The following parameters were monitored: oxygen saturation, heart rate, blood pressure, and response to care. Total physician intraservice time was 15 minutes. Scope In: 2:14:59 PM Scope Out: 2:19:10 PM Total Procedure Duration Time 0 hours 4 minutes 11 seconds Findings: Diffuse, white plaques were found in the entire esophagus. Biopsies were taken with a cold forceps for histology. Verification of patient identification for the specimen was done. Estimated blood loss was minimal. A non-obstructing Schatzki ring was found in the lower third of the esophagus. A guidewire was placed and the scope was withdrawn. Dilation was performed with a Savary dilator with no resistance at 33 Fr. The dilation site was examined following endoscope reinsertion and showed moderate improvement in luminal narrowing. Estimated blood loss was minimal. The entire examined stomach was normal. The second portion of the duodenum was normal. Impression: - Esophageal plaques were found, consistent with candidiasis. Biopsied. - Non-obstructing Schatzki ring. Dilated. - Normal stomach. - Normal second portion of the duodenum. Recommendation: - Return patient to [facility] for [facility] care. - Advance diet as tolerated today. - Nystatin suspension 100,000 units PO QID for 1 week. - Diflucan (fluconazole) 100 mg PO daily for 2 weeks. - Continue present medications. Procedure Code(s): --- Professional --- 32766, Esophagogastroduodenoscopy, flexible, transoral; with insertion of guide wire followed by passage of dilator(s) through esophagus over guide wire 21125, 59, Esophagogastroduodenoscopy, flexible, transoral; with biopsy, single or multiple 33692, 59, Moderate sedation services provided by the same physician or other qualified health respiratory care specialist performing the diagnostic or therapeutic service that the sedation supports, requiring the presence of an independent trained observer to assist in the monitoring of the patient's level of consciousness and physiological status; initial 15 minutes of intraservice time, patient age 5 years or older CPT copyright 2017 [employer]. All rights reserved. The codes documented in this report are preliminary and upon hostel parent review may be revised to meet current compliance requirements. Fazal Muir DO 08/19/2021 2:31:52 PM This report has been signed electronically. Number of Addenda: 1 Note Initiated On: 08/19/2021 2:03 PM Addendum Number: 1 Addendum Date: 04/05/2022 6:56:20 AM MAC was used for sedation during this procedure. Fazal Muir DO 04/05/2022 6:56:24 AM This report has been signed electronically.
[2021-08-19] MEDS: Isosorbide Mononitrate 30 MG Tablet PO (15:51)
[2021-08-19] MEDS: Ferrous Sulfate 325 MG Tablet PO (15:51)
[2021-08-19] MEDS: Fluconazole 100 MG Tablet PO (17:54)
[2021-08-19] MEDS: NYSTATIN 500,000 UNIT/5 ML UDC 500000 UNIT PO ×2 (17:54→22:04)
[2021-08-19] MEDS: Atorvastatin Calcium 80 MG Tablet PO (22:02)
[2021-08-19] MEDS: Folic Acid 1 MG Tablet PO (22:02)
[2021-08-19] MEDS: Pantoprazole Sodium 40 MG Tablet PO (22:04)
[2021-08-19] MEDS: 0.9% Saline Lock 10 ML Syringe IV (22:09)
[2021-08-20] VITALS (17 sets, daily range): BP systolic 108–144; BP diastolic 47–78; PULSE 46–98; RESP 18–22; TEMP 36.5–36.8; O2SAT 85–99
[2021-08-20] MEDS: MELATONIN 3 MG TABLET PO
[2021-08-20] MEDS: Pregabalin 75 MG Capsule PO (06:02)
[2021-08-20 06:47] LABS: Absolute Lymphocyte Count 0.57 X10^3/uL (0.83-4.51); Absolute Neutrophil Count 3.9 X10^3/uL (2.0-7.7); Basophil# 0.01 X10^3/uL; Basophil% 0.2 % (0-1); Eosinophil# 0.01 X10^3/uL; Eosinophils% 0.2 % (0-5); Hematocrit 27.2 % (40-54); Hemoglobin 8.6 g/dL (13.0-16.5); Lymphocyte # 0.57 X10^3/ul (0.83-4.51); Lymphocyte % 11.6 % (19-41); Mean Corp Hgb Conc 31.6 g/dL (32-36); Mean Corpuscular Hgb 30.7 pg (27.0-32.0); Mean Corpuscular Volume 97.1 fL (80-94); Mean Platelet Vol. 11.4 fl (6.2-12.0); Monocyte# 0.36 X10^3/uL; Monocyte% 7.3 % (0-10); NRBC Flagged by Analyzer 0.6 % (0-5); Neutrophil # 3.93 X10^3/uL (2.7-7.7); Neutrophil % 80.1 % (47-70); POSITIVE DIFFERENTIAL YES; Platelet Count 126 K/mm3 (150-450); RBC Distribution Width CV 15.2 % (11.6-14.6); RBC Distribution Width SD 53.9 fl (35.1-43.9); White Blood Count 4.9 K/mm3 (4.4-11.0)
[2021-08-20 06:52] LABS: Differential Indicated SCAN CRITERIA MET
[2021-08-20] MEDS: Ipratropium/Albuterol Sulfate 3 ML AMPUL.NEB INHALATION ×2 (07:04→10:17)
[2021-08-20 07:06] LABS: Anion Gap 5 (5-15); BUN 32 mg/dL (7-18); BUN/Creat Ratio 28.3 RATIO (10-20); Calcium,Total 8.6 mg/dL (8.5-10.1); Chloride 111 mmol/L (98-107); Creatinine, Serum 1.13 mg/dL (0.70-1.30); EST Glomerular Filtration Rate 66 mL/min (>60); Est Glom Filt Rate - Afr Amer 80 mL/min (>60); Estimated Creatinine Clearance 51.14 ml/min; Glucose 96 mg/dL (74-106); International Normalized Ratio 3.3; Potassium 4.5 mmol/L (3.5-5.1); Prothrombin Time (Protime)PT. 32.7 SECONDS (11.7-14.9); Sodium Level 142 mmol/L (136-145)
--- NOTE | 2021-08-20 07:09 | CPS ---
Pt does have short periods of apnea while sleeping, SpO2 stayed in the 90's while this R.T. was in the room.
[2021-08-20 07:10] LABS: Differential Comment SCANNED
[2021-08-20] MEDS: predniSONE 20 MG Tablet 40 MG PO (08:36)
[2021-08-20] MEDS: Pantoprazole Sodium 40 MG Tablet PO (08:36)
[2021-08-20] MEDS: Fluconazole 100 MG Tablet PO (08:36)
[2021-08-20] MEDS: Aspirin E.C. 81 MG Tablet PO (08:36)
[2021-08-20] MEDS: Cholecalciferol (VIT D3) 25 MCG TABLET (1,000 UNITS) 50 MCG PO (08:37)
[2021-08-20] MEDS: NYSTATIN 500,000 UNIT/5 ML UDC 500000 UNIT PO (08:37)
[2021-08-20] MEDS: Ferrous Sulfate 325 MG Tablet PO (08:37)
[2021-08-20] MEDS: Isosorbide Mononitrate 30 MG Tablet PO (08:41)
--- NOTE | 2021-08-20 09:29 | NURSING ---
noted on monitor HR going from 110's-120's, to 60's. pt sitting in chair. denies all symptoms. reports hx afib. noted mild sob with conversation. primary RN updated, call light within reach
--- NOTE | 2021-08-20 09:59 | PCM.DC ---
Discharge Instructions Diet Discharge Diet: Low fat / Low cholesterol Activity Discharge Activity: Return to Normal Activity Dressing / Incision Call your doctor if you observe: Fever of 101 or Higher, Shortness of breath, Dizziness, Fainting spells, Swelling in the ankles, Chest pain and Increased palpitations (irregular heartbeat) Follow Up Care Test Results: Test results from this visit will be discussed in further detail at your follow-up appointment, if applicable. Discharge Plan Admission Admit Date/Time: 08/16/21 06:56 Attending Provider: Matthew Jacome Primary Care Provider: Guillermo Pritchard Consulting Providers: Jim Benitez Instructions Additional Instructions / Restrictions: We will discharge you today with home health care. You will need to have outpatient lab work for your INR and your CBC to monitor your hemoglobin. Take care and understanding that there is an interaction between Coumadin and the antifungal medication for your esophageal candidiasis and therefore you will need to be closely monitored with her INR and have adjustments in her Coumadin by your PCP as an outpatient. Discharge Orders/Prescriptions Prescriptions: New fluconazole 100 mg Tablet 100 mg PO DAILY 12 Days Qty: 12 RF: 0 nystatin 100,000 unit/mL Suspension 500,000 unit PO 4X/DAY 6 Days Qty: 120 RF: 0 prednisone 10 mg tablet 10 mg PO DAILY Qty: 10 RF: 0 Continued isosorbide mononitrate 30 mg tablet extended release 24 hr 30 mg PO QAM RF: 0 metoprolol tartrate 25 mg tablet 12.5 mg PO BID RF: 0 nitroglycerin 0.4 mg tablet, sublingual 0.4 mg SUBLINGUAL Q5M PRN (Reason: Chest Pain) Qty: 30 RF: 0 rosuvastatin 40 MG tablet 40 mg PO QHS RF: 0 pantoprazole 40 mg tablet,delayed release (DR/EC) 40 mg PO BID RF: 0 ferrous sulfate 325 MG tablet 325 mg PO BIDCM RF: 0 cholecalciferol (vitamin D3) 1,000 UNIT tablet 2,000 unit PO DAILY RF: 0 albuterol sulfate 90 MCG aerosol powdr breath activated 1 puff INHALATION Q4H PRN PRN (Reason: Wheezing) RF: 0 aspirin 81 MG tablet 81 mg PO DAILY@0800 RF: 0 folic acid 1 MG tablet 1 mg PO QHS RF: 0 ipratropium-albuterol 3 ML solution for nebulization 3 ml INHALATION Q4H PRN PRN (Reason: sob/wheezing) Qty: 30 RF: 0 zolpidem 10 MG tablet 10 mg PO QHS RF: 0 pregabalin 75 MG capsule 75 mg PO TID RF: 0 Stiolto Respimat 2.5-2.5 mcg/actuation Mist 1 puff INHALATION DAILY RF: 0 furosemide 40 MG tablet 40 mg PO DAILY RF: 0 buprenorphine 10 mcg/hour patch weekly 10 mcg transdermal QWEEK RF: 0 warfarin 5 mg tablet 5 mg PO SUTUTHSA Qty: 30 RF: 0 Held warfarin 7.5 mg tablet 7.5 mg PO MOWEFR RF: 0 Hold Instructions: Resume on 08/22/21. Discontinued Asmanex HFA 100 mcg/actuation Hfa Aerosol Inhaler 2 puff INHALATION BID RF: 0 amoxicillin-pot clavulanate 875-125 mg tablet 1 tab PO BID RF: 0 Referrals / Follow Up: Guillermo Pritchard MD [Primary Care Provider] - Within 1 Week Disposition Disposition (needs filled in before D/C Order can be placed): Home Health Service
--- NOTE | 2021-08-20 10:13 | NURSING ---
attempted to call pt's pcp dr. Pritchard regarding following up with CBC and INR/Coumadin- office closed, unable to leave a voicemail. Primary RN updated on 's dc instructions.
[2021-08-20] MEDS: Metoprolol Tartrate 25 MG Tablet 12.5 MG PO (10:28)
--- NOTE | 2021-08-20 10:50 | CASEMGMT ---
SURY MUNOZ NOTE: Pt being discharged home today. Ambulatory O2 testing has been completed. Pt qualifies for home O2 @ 2l/m w/exertion. Call to charge nurse, Patience. She will have order faxed to [employer] for home O2, once available. Call placed to Emma @ [employer] and she was notified. She states she will watch for O2 order and is aware portable O2 tank to be given to pt from [facility] supply. She will arrange to have home O2 delivered once orders are received. Roxana MICHAELSN RN CM
--- NOTE | 2021-08-20 16:43 | DS.PCM_ITS ---
Providers Date of Admission: 08/16/21 Primary Care Physician: Dr. Guillermo Pritchard MD Consultations 08/16/21 07:01 Consult: Onc/Wound/manager of training Routine Comment: Reason for Consult:: wound left lower leg 08/16/21 16:35 Consult: Cardiology Routine Consulting Provider: Jim Benitez Reason for Consult: elevated troponins EMERGENT Consult: No MD Notified: Yes Date Notified: 08/16/21 Time Notified: 11:52 Method of Notification: Text Comments:: per Dr. Sellers she already talked with him herself 08/18/21 15:32 Consult: Gastroenterology Routine Consulting Provider: [facility] Reason for Consult: Esophageal abnormality on CT of CHEST EMERGENT Consult: No MD Notified: Yes Date Notified: 08/18/21 Time Notified: 15:32 Method of Notification: Text Reason For Visit: SUSPECT COVID,HYPOXIA Diagnosis Discharge Diagnosis (1) Esophageal thickening: Status: Acute Code(s): K22.89 - Other specified disease of esophagus (2) Rhabdomyolysis: Status: Acute Code(s): M62.82 - Rhabdomyolysis Qualifiers: Rhabdomyolysis type: traumatic Encounter type: subsequent encounter Qualified Code(s): T79.6XXD - Traumatic ischemia of muscle, subsequent encounter (3) Elevated troponin: Status: Acute Code(s): R77.8 - Other specified abnormalities of plasma proteins (4) Acute respiratory failure with hypoxia: Status: Acute Code(s): J96.01 - Acute respiratory failure with hypoxia (5) Lymphopenia: Status: Acute Code(s): D72.810 - Lymphocytopenia Medications at Discharge Home Medications rosuvastatin 40 mg PO QHS 07/15/13 ferrous sulfate 325 mg PO BIDCM 09/13/15 albuterol sulfate 1 puff INHALATION Q4H PRN PRN 09/25/15 cholecalciferol (vitamin D3) 2,000 unit PO DAILY 09/25/15 aspirin 81 mg PO DAILY@0800 06/24/16 folic acid 1 mg PO QHS 06/24/16 ipratropium-albuterol 3 ml INHALATION Q4H PRN PRN #30 ampul.neb 11/02/16 isosorbide mononitrate 30 mg tablet,extended release 24 hr 30 mg PO QAM 05/07/18 pantoprazole 40 mg tablet,delayed release 40 mg PO BID tab 01/02/18 warfarin 7.5 mg tablet 7.5 mg PO MOWEFR tab 01/02/18 zolpidem 10 mg PO QHS 05/26/18 pregabalin 75 mg PO TID 07/28/18 metoprolol tartrate 25 mg tablet 12.5 mg PO BID tab 11/26/19 nitroglycerin 0.4 mg sublingual tablet 0.4 mg SUBLINGUAL Q5M PRN #30 tab 05/25/21 Stiolto Respimat 1 puff INHALATION DAILY 06/18/21 furosemide 40 mg PO DAILY 06/21/21 buprenorphine 10 mcg TRANSDERMAL QWEEK 08/16/21 fluconazole 100 mg PO DAILY 12 Days #12 tab 08/20/21 nystatin 500,000 unit PO 4X/DAY 6 Days #120 ml 08/20/21 prednisone 10 mg PO DAILY #10 tab 08/20/21 warfarin 5 mg tablet 5 mg PO DAILY #90 tab 08/20/21 Hospital Course Operations None Procedures EGD Summary of Care Provided Minutes Spent on Discharge: 45 Hospital Course: Per HPI: The patient is a 82 y/o M w/ PMHx: Chronic anemia/Fe Deficiency anemia, PAF, HTN, HLD, GERD, Chronic systolic CHF, COPD, CAD s/p CABG RED-LAD 1193 and PCI x 2 , Valvular Heart Disease s/p AVR [address] [employer] who presents to the [facility] ED on 08/15/21 w/ history of fall while at home from his bed onto his right side without any trauma but upon ED presentation he noted R hip/knee/shoulder discomfort prompting ED evaluation secondary to severity of weakness and debility with incidentally noted upon presentation fever as well as mild hypoxia prompting further investigation. Patient is unvaccinated against COVID. His daughter and grandson were both recently ill within the last week with cough and URI type symptoms. The grandson of note did have an outpatient COVID antigen that was reportedly negative. Patient denies any nausea, emesis, diarrhea, marked cough, altered sense of taste or smell. He does admit to poor appetite and not feeling generally well over the last 48 hours. He denies dyspnea or recent cough despite ED noted hypoxia. Hospital Course: 1. Acute hypoxic respiratory failure secondary to COPD versus acute viral illness?81-year-old male presented from home with a fall and shortness of breath as well as weakness. He is unvaccinated for Covid however both a rapid and a PCR Covid test were negative. Urine antigens were also negative. He was maintained on 2 L of oxygen at rest and with ambulation and started on steroids for what was felt to be a COPD exacerbation versus acute viral illness. In discussions secondary to his debility, he stated that he did not want to go to a long-term facility therefore the situation was discussed with his daughter who respected his wishes and was okay with taking him home. He did accept assistance with home health care which will be able to see him on Tuesday. I did discuss with him and his daughter the plan for discharge today and they expressed understanding of the risk benefits of going home and would like to go home today. Of note on admission CT of the chest was negative for PE it did not show any signs of Covid pneumonia or any other type of infectious etiology. Plan will be for a 1 week taper of steroids on discharge. 2. Elevated troponin secondary to rhabdomyolysis from his mechanical fall/SALVADOR on CKD 3 a?his rhabdomyolysis completely resolved by the day of discharge as did his SALVADOR. Once again he was refusing SNF placement therefore will discharge home on home health care. Cardiology was involved for his elevated troponin and did not feel that this needed any further work-up at this time as the troponin elevation was likely secondary to his rhabdomyolysis. 3. Esophageal candidiasis with a Schatzki's ring?was noted on the CTA of his chest that he had what appeared to be a distal esophageal mass and he was also having some difficulty swallowing. Gastroenterology was consulted and they performed an EGD which demonstrated esophageal candidiasis as well as a Sc hatzki's ring. The Schatzki's ring was dilated and biopsied retaken. He was started on Diflucan to take 100 mg daily for 2 weeks and then he was on nystatin swish and swallow 1 week. This does interact with his Coumadin which was expressed to the daughter. His INR today was 3.3 therefore I do recommend holding his Coumadin and having INR is obtained as an outpatient and have his Coumadin managed by his outpatient physician. 4. Coronary artery disease status post CABG, hypertension, hyperlipidemia, chronic systolic CHF, status post mechanical aortic valve replacement, paroxysmal A. fib, chronic neuropathy, GERD are all chronic medical conditions which complicate his care. His home medications were continued where appropriate. Physical Exam Narrative Const alert, oriented x3 and no apparent distress General Appearance: cooperative HEENT normocephalic and moist oral mucous membranes Eyes PERRL, EOMs intact bilaterally and conjunctivae normal Neck supple and no JVD Resp normal respiratory effort, no retractions and no use of accessory muscles Auscultation: diminished lung sounds; Negative for crackles, rales, rhonchi or wheezes Cardio regular rate, regular rhythm, S1 normal heart sound, S2 normal heart sound and no murmurs GI soft to palpation, non-tender and non-distended; Negative for hepatosplenomegaly Extremity no clubbing, cyanosis or edema Skin no rashes or lesions noted Neuro no focal motor deficits and no sensory deficits noted Psych affect normal Appearance: appropriate Weight / BMI Weight Weight: 179 lb 0.246 oz Body Mass Index (BMI) 25.7 ABG / Lab / Microbiology Data Result Diagrams: 08/20/21 05:50 08/20/21 05:50 Laboratory: Laboratory Results - last 24 hr 08/20/21 05:50: PT 32.7 H, INR 3.3 08/20/21 05:50: WBC 4.9, RBC 2.80 L, Hgb 8.6 L, Hct 27.2 L, MCV 97.1 H, MCH 30.7, MCHC 31.6 L D, RDW Std Deviation 53.9 H, RDW Coeff of [place]aly[place] 15.2 H, Plt Cou nt 126 L, MPV 11.4, Immature Gran % (Auto) 0.600, Neut % (Auto) 80.1 H, Lymph % (Auto) 11.6 L, [place] % (Auto) 7.3, Eos % (Auto) 0.2, Baso % (Auto) 0.2, Absolute Neuts (auto) 3.9, Absolute Lymphs (auto) 0.57 L, Nucleated RBC % 0.6, Differential Comment SCANNED 08/20/21 05:50: Sodium 142, Potassium 4.5, Chloride 111 H, Carbon Dioxide 26.0, Anion Gap 5, BUN 32 H, Creatinine 1.13, Estim Creat Clear Calc 51.14, Est GFR (MDRD) Af Amer 80, Est GFR (MDRD) Non-Af 66, BUN/Creatinine Ratio 28.3 H, Glucose 96, Calcium 8.6 Microbiology: Microbiology 01/30/22 20:00 Sputum, Expectorated/Coughed Gram Stain - Final 08/16/21 20:00 Sputum, Expectorated/Coughed Respiratory Culture - Final Presumptive C albicans 08/16/21 11:40 Urine, Clean Catch Legionella Antigen - Final 08/16/21 11:40 Urine, Clean Catch Streptococcus pneumoniae Antigen (M - Final 08/15/21 21:14 Nasal Secretion SARS-CoV-2 Antigen (Rapid) - Final D/C Instructions Discharge Diet: Low fat / Low cholesterol Call your doctor if you observe: Fever of 101 or Higher, Shortness of breath, Dizziness, Fainting spells, Swelling in the ankles, Chest pain and Increased palpitations (irregular heartbeat) Meaningful Use Info Meaningful Use Diagnoses (Choose all that apply): None applicable Discharge Plan Admission Admit Date/Time: 08/16/21 06:56 Attending Provider: Matthew Jacome Primary Care Provider: Guillermo Pritchard Consulting Providers: Jim Benitez Instructions Additional Instructions / Restrictions: We will discharge you today with home health care. You will need to have outpatient lab work for your INR and your CBC to monitor your hemoglobin. Take care and understanding that there is an interaction between Coumadin and the antifungal medication for your esophageal candidiasis and therefore you will need to be closely monitored with her INR and have adjustments in her Coumadin by your PCP as an outpatient. Discharge Orders/Prescriptions Prescriptions: New fluconazole 100 mg Tablet 100 mg PO DAILY 12 Days Qty: 12 RF: 0 nystatin 100,000 unit/mL Suspension 500,000 unit PO 4X/DAY 6 Days Qty: 120 RF: 0 prednisone 10 mg tablet 10 mg PO DAILY Qty: 10 RF: 0 Continued isosorbide mononitrate 30 mg tablet extended release 24 hr 30 mg PO QAM RF: 0 metoprolol tartrate 25 mg tablet 12.5 mg PO BID RF: 0 nitroglycerin 0.4 mg tablet, sublingual 0.4 mg SUBLINGUAL Q5M PRN (Reason: Chest Pain) Qty: 30 RF: 0 rosuvastatin 40 MG tablet 40 mg PO QHS RF: 0 pantoprazole 40 mg tablet,delayed release (DR/EC) 40 mg PO BID RF: 0 ferrous sulfate 325 MG tablet 325 mg PO BIDCM RF: 0 cholecalciferol (vitamin D3) 1,000 UNIT tablet 2,000 unit PO DAILY RF: 0 albuterol sulfate 90 MCG aerosol powdr breath activated 1 puff INHALATION Q4H PRN PRN (Reason: Wheezing) RF: 0 aspirin 81 MG tablet 81 mg PO DAILY@0800 RF: 0 folic acid 1 MG tablet 1 mg PO QHS RF: 0 ipratropium-albuterol 3 ML solution for nebulization 3 ml INHALATION Q4H PRN PRN (Reason: sob/wheezing) Qty: 30 RF: 0 zolpidem 10 MG tablet 10 mg PO QHS RF: 0 pregabalin 75 MG capsule 75 mg PO TID RF: 0 Stiolto Respimat 2.5-2.5 mcg/actuation Mist 1 puff INHALATION DAILY RF: 0 furosemide 40 MG tablet 40 mg PO DAILY RF: 0 buprenorphine 10 mcg/hour patch weekly 10 mcg transdermal QWEEK RF: 0 Held warfarin 7.5 mg tablet 7.5 mg PO MOWEFR RF: 0 Hold Instructions: Resume on 08/22/21. Discontinued warfarin 5 mg tablet 5 mg PO [facility] RF: 0 Asmanex HFA 100 mcg/actuation Hfa Aerosol Inhaler 2 puff INHALATION BID RF: 0 amoxicillin-pot clavulanate 875-125 mg tablet 1 tab PO BID RF: 0 No Action warfarin 5 mg tablet 5 mg PO DAILY Qty: 90 RF: 3 Referrals / Follow Up: Guillermo Pritchard MD [Primary Care Provider] - Within 1 Week Disposition Disposition (needs filled in before D/C Order can be placed): Home Health Service Charges/Coding Visit Charges Inpatient E&M: 45302 Disch Hosp
== END 2021-08-20 12:05 | disposition home health service (06) | DRG 865 ==
LOC: ED 20:25 → MS3 21:25 → ED 08-18 07:01
PROVIDERS: Internal Medicine; Internal Medicine Gastroenterology; Student in an Organized Health Care Education/Training Program; Admitting Provider Family Medicine; Emergency Provider Emergency Medicine; PCP Family Medicine; Referring Provider Emergency Medicine; Visit Provider Family Medicine
PROC: 0DJ08ZZ Inspection of Upper Intestinal Tract, Via Natural or Artificial Opening Endoscopic (ICD-10-PCS; CPT 43235; principal; 2021-08-19 17:35)
DX: B34.9 Viral infection, unspecified (principal); J96.01 Acute respiratory failure with hypoxia; B37.81 Candidal esophagitis; J44.1 Chronic obstructive pulmonary disease with (acute) exacerbation; I13.0 Hypertensive heart and chronic kidney disease with heart failure and stage 1 through stage 4 chronic kidney disease, or unspecified chronic kidney disease; N17.9 Acute kidney failure, unspecified; I50.22 Chronic systolic (congestive) heart failure; K22.2 Esophageal obstruction; I48.0 Paroxysmal atrial fibrillation; G62.9 Polyneuropathy, unspecified; T79.6XXA Traumatic ischemia of muscle, initial encounter; N18.31 Chronic kidney disease, stage 3a; D50.9 Iron deficiency anemia, unspecified; S50.811A Abrasion of right forearm, initial encounter; E78.5 Hyperlipidemia, unspecified; K21.9 Gastro-esophageal reflux disease without esophagitis; W19.XXXA Unspecified fall, initial encounter; I25.10 Atherosclerotic heart disease of native coronary artery without angina pectoris; S50.812A Abrasion of left forearm, initial encounter; F17.210 Nicotine dependence, cigarettes, uncomplicated; I25.5 Ischemic cardiomyopathy; D72.810 Lymphocytopenia; M19.90 Unspecified osteoarthritis, unspecified site; W06.XXXA Fall from bed, initial encounter; Z79.01 Long term (current) use of anticoagulants; Z66 Do not resuscitate; G89.4 Chronic pain syndrome; R79.1 Abnormal coagulation profile; R13.10 Dysphagia, unspecified; K22.89 Other specified disease of esophagus; Z79.82 Long term (current) use of aspirin; Z20.822 Contact with and (suspected) exposure to COVID-19; Z87.891 Personal history of nicotine dependence; Z79.899 Other long term (current) drug therapy; Z79.51 Long term (current) use of inhaled steroids; Y93.9 Activity, unspecified; Y92.9 Unspecified place or not applicable
CPT/HCPCS: 36415; 71045; 71275; 73030; 73060; 73502; 80048; 80053; 81001; 82550; 83605; 83615; 83735; 83880; 84145; 84484; 85025; 85379; 85384; 85610; 87070; 87205; 87426; 87449; 87635; 88305; 93005; 94640; 94762; 96374; 96376; 97110; 97116; 97162; 97166; 97530; 97535; 99285; 99406; J7030; Q9967; A4216; J2405; U0003; U0005

== ENCOUNTER 2021-08-24 12:23 | Outpatient (RCR) | payer MEDICARE, SELFPAY ==
[2021-08-24 12:43] LABS: Hematocrit 34.6 % (40-54); Hemoglobin 10.6 g/dL (13.0-16.5); Mean Corp Hgb Conc 30.6 g/dL (32-36); Mean Corpuscular Hgb 29.9 pg (27.0-32.0); Mean Corpuscular Volume 97.7 fL (80-94); Mean Platelet Vol. 11.4 fl (6.2-12.0); Platelet Count 314 K/mm3 (150-450); RBC Distribution Width CV 14.9 % (11.6-14.6); RBC Distribution Width SD 54.2 fl (35.1-43.9); Red Blood Count 3.54 M/mm3 (4.6-6.2); White Blood Count 8.8 K/mm3 (4.4-11.0)
[2021-08-24 13:01] LABS: Prothrombin Time (Protime)PT. 54.1 SECONDS (11.7-14.9)
[2021-08-24 13:11] LABS: International Normalized Ratio 6.2
[2021-09-08 15:14] LABS: Hematocrit 28.7 % (40-54); Hemoglobin 8.7 g/dL (13.0-16.5); Mean Corp Hgb Conc 30.3 g/dL (32-36); Mean Corpuscular Hgb 29.8 pg (27.0-32.0); Mean Corpuscular Volume 98.3 fL (80-94); Mean Platelet Vol. 11.3 fl (6.2-12.0); Platelet Count 146 K/mm3 (150-450); RBC Distribution Width CV 17.8 % (11.6-14.6); RBC Distribution Width SD 63.8 fl (35.1-43.9); Red Blood Count 2.92 M/mm3 (4.6-6.2); White Blood Count 3.8 K/mm3 (4.4-11.0)
== END 2021-09-14 23:59 | disposition home or self-care (01) ==
LOC: HHLAB 12:23
PROVIDERS: PCP Family Medicine; Visit Provider Internal Medicine Cardiovascular Disease
DX: J44.1 Chronic obstructive pulmonary disease with (acute) exacerbation (principal); J96.01 Acute respiratory failure with hypoxia; B34.9 Viral infection, unspecified; D50.0 Iron deficiency anemia secondary to blood loss (chronic)
CPT/HCPCS: 85027; 85610

== ENCOUNTER 2021-09-16 15:13 | Outpatient (RCR) | payer MEDICARE, SELFPAY ==
[2021-09-16 15:44] LABS: Absolute Lymphocyte Count 0.58 X10^3/uL (0.83-4.51); Absolute Neutrophil Count 2.3 X10^3/uL (2.0-7.7); Basophil# 0.03 X10^3/uL; Basophil% 0.9 % (0-1); Eosinophil# 0.04 X10^3/uL; Eosinophils% 1.2 % (0-5); Hematocrit 31.8 % (40-54); Hemoglobin 9.1 g/dL (13.0-16.5); Lymphocyte # 0.58 X10^3/ul (0.83-4.51); Lymphocyte % 17.6 % (19-41); Mean Corp Hgb Conc 28.6 g/dL (32-36); Mean Corpuscular Hgb 29.4 pg (27.0-32.0); Mean Corpuscular Volume 102.9 fL (80-94); Mean Platelet Vol. 11.9 fl (6.2-12.0); Monocyte% 9.1 % (0-10); NRBC Flagged by Analyzer 0 % (0-5); Neutrophil # 2.34 X10^3/uL (2.7-7.7); Neutrophil % 70.9 % (47-70); POSITIVE DIFFERENTIAL YES; POSITIVE MORPHOLOGY YES; Platelet Count 146 K/mm3 (150-450); RBC Distribution Width CV 19.1 % (11.6-14.6); RBC Distribution Width SD 70.7 fl (35.1-43.9); Red Blood Count 3.09 M/mm3 (4.6-6.2); White Blood Count 3.3 K/mm3 (4.4-11.0)
[2021-09-16 16:11] LABS: Differential Indicated SCAN CRITERIA MET
[2021-09-16 16:13] LABS: Anion Gap 5 (5-15); BUN 17 mg/dL (7-18); Calcium,Total 8.3 mg/dL (8.5-10.1); Chloride 107 mmol/L (98-107); Creatinine, Serum 1.42 mg/dL (0.70-1.30); EST Glomerular Filtration Rate 51 mL/min (>60); Est Glom Filt Rate - Afr Amer 61 mL/min (>60); Glucose 128 mg/dL (74-106); Potassium 3.6 mmol/L (3.5-5.1); Sodium Level 142 mmol/L (136-145)
[2021-09-16 16:19] LABS: Anisocytosis 1+; Differential Comment SCANNED
[2021-09-18 09:15] LABS: Pathologist Review Reviewed
== END 2021-10-15 23:59 | disposition home or self-care (01) ==
LOC: LABSPEC 15:13
PROVIDERS: PCP Family Medicine; Visit Provider Family Medicine
DX: J44.1 Chronic obstructive pulmonary disease with (acute) exacerbation (principal); J96.01 Acute respiratory failure with hypoxia
CPT/HCPCS: 80048; 85025

== ENCOUNTER 2021-09-23 09:34 | Outpatient (CLI) | payer MEDICARE, SELFPAY ==
[2021-09-23 11:05] LABS: Absolute Lymphocyte Count 0.62 X10^3/uL (0.83-4.51); Absolute Neutrophil Count 2.6 X10^3/uL (2.0-7.7); Basophil# 0.04 X10^3/uL; Basophil% 1.1 % (0-1); Eosinophil# 0.03 X10^3/uL; Eosinophils% 0.8 % (0-5); Hematocrit 34.6 % (40-54); Hemoglobin 10.4 g/dL (13.0-16.5); Lymphocyte # 0.62 X10^3/ul (0.83-4.51); Lymphocyte % 17.4 % (19-41); Mean Corp Hgb Conc 30.1 g/dL (32-36); Mean Corpuscular Hgb 30.1 pg (27.0-32.0); Mean Corpuscular Volume 100.3 fL (80-94); Monocyte# 0.26 X10^3/uL; Monocyte% 7.3 % (0-10); NRBC Flagged by Analyzer 0 % (0-5); Neutrophil % 72.8 % (47-70); POSITIVE MORPHOLOGY YES; Platelet Count 142 K/mm3 (150-450); RBC Distribution Width CV 18.8 % (11.6-14.6); Red Blood Count 3.45 M/mm3 (4.6-6.2); White Blood Count 3.6 K/mm3 (4.4-11.0)
[2021-09-23 11:15] LABS: Differential Indicated SCAN CRITERIA MET
[2021-09-23 11:19] LABS: International Normalized Ratio 1.3; Prothrombin Time (Protime)PT. 15.6 SECONDS (11.7-14.9)
[2021-09-23 11:28] LABS: Anion Gap 6 (5-15); BUN 16 mg/dL (7-18); BUN/Creat Ratio 12.6 RATIO (10-20); Calcium,Total 8.8 mg/dL (8.5-10.1); Chloride 110 mmol/L (98-107); Creatinine, Serum 1.27 mg/dL (0.70-1.30); EST Glomerular Filtration Rate 58 mL/min (>60); Est Glom Filt Rate - Afr Amer 70 mL/min (>60); Glucose 117 mg/dL (74-106); Potassium 3.9 mmol/L (3.5-5.1); Sodium Level 145 mmol/L (136-145)
[2021-09-23 11:33] LABS: Anisocytosis 2+; Macrocytosis 1+; Polychromasia RARE
== END 2021-09-23 23:59 | disposition home or self-care (01) ==
LOC: LAB 09:35
PROVIDERS: PCP Family Medicine; Referring Provider Internal Medicine Cardiovascular Disease; Visit Provider Internal Medicine Cardiovascular Disease
DX: I48.0 Paroxysmal atrial fibrillation (principal); Z79.01 Long term (current) use of anticoagulants; Z95.2 Presence of prosthetic heart valve
CPT/HCPCS: 36415; 80048; 85025; 85610

== ENCOUNTER 2021-09-25 12:33 | Outpatient (CLI) | payer MEDICARE, SELFPAY ==
[2021-09-25 14:07] LABS: International Normalized Ratio 1.7; Prothrombin Time (Protime)PT. 19.4 SECONDS (11.7-14.9)
== END 2021-09-25 23:59 | disposition home or self-care (01) ==
LOC: LAB 12:36
PROVIDERS: PCP Family Medicine; Visit Provider Internal Medicine Cardiovascular Disease
DX: I48.0 Paroxysmal atrial fibrillation (principal); Z79.01 Long term (current) use of anticoagulants; Z75.2 Other waiting period for investigation and treatment
CPT/HCPCS: 36415; 85610

== ENCOUNTER 2021-09-29 08:20 | Outpatient (CLI) | payer MEDICARE, SELFPAY ==
[2021-09-29 11:31] LABS: INR Fingerstick 2.5; Prothrombin Time Fingerstick 29.5 SEC (11.7-14.9)
== END 2021-09-29 23:59 | disposition home or self-care (01) ==
LOC: LAB 08:20
PROVIDERS: PCP Family Medicine; Visit Provider Internal Medicine Cardiovascular Disease
DX: I48.0 Paroxysmal atrial fibrillation (principal); Z79.01 Long term (current) use of anticoagulants; Z95.2 Presence of prosthetic heart valve
CPT/HCPCS: 36416; 85610

== ENCOUNTER 2021-10-06 09:26 | Outpatient (CLI) | payer MEDICARE, SELFPAY ==
[2021-10-06 12:51] LABS: INR Fingerstick 2.8; Prothrombin Time Fingerstick 32.5 SEC (11.7-14.9)
== END 2021-10-06 23:59 | disposition home or self-care (01) ==
LOC: LAB 09:27
PROVIDERS: PCP Family Medicine; Visit Provider Internal Medicine Cardiovascular Disease
DX: I48.0 Paroxysmal atrial fibrillation (principal); Z79.01 Long term (current) use of anticoagulants; Z95.2 Presence of prosthetic heart valve
CPT/HCPCS: 36416; 85610

== ENCOUNTER 2021-10-22 09:51 | Inpatient (IN) | payer MEDICARE, SELFPAY ==
[2021-10-22] VITALS (20 sets, daily range): BP systolic 92–125; BP diastolic 45–88; PULSE 48–97; RESP 12–18; TEMP 36.1–36.9; O2SAT 88–100; BMI 25.2; BMI 24.4
--- NOTE | 2021-10-22 10:20 | RAD_ITS ---
STUDY: X-RAY CHEST REASON FOR EXAM: Male, 81 years old. Cough TECHNIQUE: Single AP portable view of the chest. COMPARISON: Comparison is made with prior study dated 02/03/2022. FINDINGS: EKG electrodes are seen. Mild increased markings at the lung bases likely worse at the right lung base suggestive of either early infiltrates and/or atelectasis. There is no demonstrated pleural abnormality. Sternal cerclage wires and vascular clips are present from a prior sternotomy and coronary artery bypass graft procedure (CABG). Normal mediastinum and yonas. Normal visualized pulmonary arteries. There is atherosclerotic calcification of the aortic arch with tortuosity. Normal visualized thoracic spine. Normal visualized ribs, clavicles, and shoulders. There is no demonstrated abnormality of the visualized soft tissue structures of the upper abdomen. RAD/Chest 1 View (Portable) IMPRESSION: Mild increased markings at the lung bases suggestive of either atelectasis and/or early infiltrates. Follow-up is recommended. Electronically Signed: Tyler Early MD at 10:55 EDT ,
--- NOTE | 2021-10-22 10:20 | EX.ED.DYSGE1 ---
HPI History of Present Illness Chief Complaint: GI Bleed Detail of Chief Complaint: Coughing up blood Informant: patient Narrative Narrative: Patient presents to the emergency department spitting up blood. Patient states symptoms started around 7 AM. Patient states he was drinking some hot chocolate when he started feeling like there was something in the back of his throat and he started coughing up bright red blood. Patient is on Coumadin. Patient has history of mechanical aortic valve. Patient denies any recent illness. Patient states that he was admitted recently and he believes he may have had a dilatation of his esophagus but he is not sure who did the procedure here at our hospital. Patient has history of prior OR as well as A. fib. Patient denies any abdominal pain or black tarry stool. [facility] Medical History (Updated 10/22/21 @ 11:[address] Mika Webster, ) Ambulates with cane Anemia due to chronic blood loss Arthritis Atherosclerotic heart disease of [place] coronary artery without angina pectoris Back pain Back pain due to injury Cardiology follow-up encounter CHF (congestive heart failure) Chronic cough Chronic pain syndrome Chronic systolic (congestive) heart failure COPD (chronic obstructive pulmonary disease) COPD (chronic obstructive pulmonary disease) Difficulty swallowing Essential hypertension Gastric reflux Heart attack High cholesterol History of atrial fibrillation History of CHF (congestive heart failure) History of echocardiogram History of edema History of GI bleed History of heart attack History of pain when walking History of stress test Hx of fracture of ankle Hx of fracture of ankle Hypertension Injury of back Injury of head and neck Irregular heartbeat Ischemic cardiomyopathy 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 Paroxysmal atrial fibrillation Pure hypercholesterolemia Restless legs Secondary pulmonary arterial hypertension Shortness of breath on exertion Smoker Spinal stenosis of lumbar region Stroke TIA (transient ischemic attack) Tobacco use disorder Uncontrolled pain Wears dentures Wears glasses Home Medications rosuvastatin 40 mg PO QHS 07/15/13 [History Last Taken 08/15/21 22:00] ferrous sulfate 325 mg PO BIDCM 09/13/15 [History Last Taken 08/14/21 18:00] albuterol sulfate 1 puff INHALATION Q4H PRN PRN 09/25/15 [History Last Taken 06/04/18] cholecalciferol (vitamin D3) 2,000 unit PO DAILY 09/25/15 [History Last Taken 08/15/21 08:00] aspirin 81 mg PO DAILY@0800 06/24/16 [History Last Taken 08/15/21 08:00] folic acid 1 mg PO QHS 06/24/16 [History Last Taken 08/15/21 22:00] ipratropium-albuterol 3 ml INHALATION Q4H PRN PRN #30 ampul.neb 11/02/16 [Rx Last Taken 06/04/18] isosorbide mononitrate 30 mg tablet,extended release 24 hr 30 mg PO QAM 11/21/17 [History Last Taken 08/15/21 08:00] pantoprazole 40 mg tablet,delayed release 40 mg PO BID tab 01/02/18 [History Last Taken 08/15/21 22:00] warfarin 7.5 mg tablet 7.5 mg PO MOWEFR tab 01/02/18 [History Last Taken 08/14/21 17:00] zolpidem 10 mg PO QHS 05/26/18 [History Last Taken 08/15/21 22:00] pregabalin 75 mg PO TID 07/28/18 [History Last Taken 08/15/21 22:00] metoprolol tartrate 25 mg tablet 12.5 mg PO BID tab 11/26/19 [History Last Taken 08/15/21 22:00] nitroglycerin 0.4 mg sublingual tablet 0.4 mg SUBLINGUAL Q5M PRN #30 tab 05/25/21 [Rx Last Taken Unknown] Stiolto Respimat 1 puff INHALATION DAILY 06/18/21 [History Last Taken 08/15/21 08:00] furosemide 40 mg PO DAILY 06/21/21 [History Last Taken 08/15/21 08:00] buprenorphine 10 mcg TRANSDERMAL QWEEK 08/16/21 [History Last Taken 08/09/21 08:00] fluconazole 100 mg PO DAILY 12 Days #12 tab 08/20/21 [Rx Last Taken Unknown] nystatin 500,000 unit PO 4X/DAY 6 Days #120 ml 08/20/21 [Rx Last Taken Unknown] prednisone 10 mg PO DAILY #10 tab 08/20/21 [Rx Last Taken Unknown] warfarin 5 mg tablet 5 mg PO DAILY #90 tab 08/20/21 [Rx Last Taken Unknown] enoxaparin 60 mg/0.6 mL subcutaneous syringe 60 mg SUBCUT Q12H #6 ml 09/23/21 [Rx Last Taken Unknown] Allergy/AdvReac Type Severity Reaction Status Date / Time No Known Allergies Allergy Verified 06/21/21 18:50 Family History Son , age 44 from [place] CAD (coronary artery disease) Myocardial infarction Sudden cardiac Brother CAD (coronary artery disease) Pt states all nine of his siblings have heart problems Sister CAD (coronary artery disease) Patient states all nine of his siblings have heart problems Surgical History (Updated 08/19/21 @ 09:46 by Patience Doran) H/O cardiac catheterization History of coronary artery stent placement (~06/28/11) History of left heart catheterization History of lumbar fusion History of mechanical aortic valve replacement (~03/27/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) Status post cardiac surgery Social History Smoking Status: Current every day smoker tobacco type: cigarettes ROS ROS ED Constitutional Constitutional ED: Reports systems reviewed and no addt'l complaints, except as documented; Denies body ache(s), change in weight or chills Eyes Eyes: Denies acute decrease in peripheral vision, change in vision, double vision or loss of vision ENT ENT ED: Reports none; Denies ear pain, lip swelling, loss taste/smell, neck pain, otalgia or sore throat Cardiovascular Cardiovascular: Reports none; Denies abdominal pain, chest pain with activity, leg edema, lightheadedness, palpitations, rapid heart rate or syncope Respiratory/Chest Respiratory/Chest: Reports none and cough; Denies change in mental status, dry cough, dyspnea, hemoptysis, shortness of breath at rest or shortness of breath with exertion Gastrointestinal Gastrointestinal: Reports none and other Details: Bright red blood from throat ; Denies abdominal pain, change in stool character, diarrhea, hematemesis, hematochezia, melena, rectal bleeding or vomiting Genitourinary Genitourinary ED: Reports none; Denies abdominal discomfort, anuria, dysuria, genital pain or polyuria Musculoskeletal Musculoskeletal: Reports none; Denies arthralgias, back pain, difficulty walking, extremity pain, muscle weakness or myalgias Integumentary Reports none; Denies abscess or rash Neurologic Neurologic: Reports none; Denies abnormal gait, confusion, focal weakness, frequent falls, headache(s), loss of vision, numbness, paresthesias, radicular pain, vertigo or weakness Psychiatric Psychiatric: Reports systems reviewed and no addt'l complaints, except as documented and none; Denies behavioral changes, confusion, difficulty concentrating, hallucinations, suicidal ideation, tactile hallucinations or visual hallucinations Endocrine Endocrinology: Denies none, cold intolerance, excessive sweating, fatigue or heat intolerance Hematologic/Lymphatic Hematologic/Lymphatic: Reports none; Denies anemia, easy bleeding or easy bruising Allergic/Immunologic Allergic/Immunologic ED: Denies as per HPI, none, lip swelling, mouth swelling, throat swelling, tongue swelling or hives EXAM Physical Exam Const Vital Signs: 10/22/21 09:54 10/22/21 10:52 Temperature 97.6 F L Temperature Source Temporal Pulse Rate 49 L 48 L Respiratory Rate 15 14 Blood Pressure 120/47 L 119/88 H Blood Pressure Mean 71 98 Pulse Ox 99 97 Oxygen Delivery Method Room Air Room Air Positive well nourished and well developed General Appearance ED: well developed and NAD HEENT Reports TM's clear and moist mucous membranes HEENT Narrative: Patient with small amount of blood in the mouth I do not appreciate any source of bleeding to the oropharynx or tongue. normocephalic and atraumatic; Negative for trauma or tenderness Tympanic Membrane ED: Yes TM's clear Eyes PERRL and EOMs intact bilaterally General Eye ED: Negative for pale conjunctiva or scleral icterus Neck no lymphadenopathy, supple and no JVD General: Negative for tenderness Chest Wall inspection of chest normal and palpation of chest normal Chest: Negative for tenderness Resp normal respiratory effort and clear to auscultation bilaterally Effort and Inspection: Negative for respiratory distress or pain with movement Auscultation: Negative for rhonchi, wheezes or diminished lung sounds Cardio regular rate, regular rhythm, S1 normal heart sound and S2 normal heart sound Rate: other Other Details: 2 out of 6 systolic ejection murmur and mechanical click noted Peripheral Pulses: pulses 2+ throughout GI normal to inspection, nondistended, normoactive bowel sounds, soft to palpation, non-tender, non-distended and no masses Back/Spine no CVA tenderness and no thoracic nor lumbar tenderness Extremity normal to inspection General Extremety ED: Negative for edema General Extremity: Negative for edema Neuro oriented x3, CN's II-XII intact bilaterally, no sensory deficits noted and gait normal Sensorium / Orientation: awake, alert, oriented to person, oriented to place and oriented to time Motor Exam: strength 5/5 throughout and strength abnormal Psych mental status grossly normal Skin no rashes or lesions noted and no wounds MDM MDM MDM Narrative Medical decision making narrative: IV line established on arrival. Patient placed on a quality assurance monitor chassis. Chest x-ray obtained interpreted by myself as no acute disease process. Patient was noted to have a hemoglobin of 8.7. I discussed case with data management analyst on-call Dr. Muir who will see patient. I suspect he is likely having hemoptysis. He did have recent EGD with Schatzki ring dilatation and biopsies and suspected candidiasis. I discussed case with hospitalist will admit patient. I was asked not to attempt to reverse his INR at this time given his history of mechanical heart valve. INR was elevated at 4.8. Lab Data Labs: Laboratory Results - last 24 hr 10/22/21 10/22/21 10/22/21 10:04 10:04 10:04 WBC 4.4 Cancelled Corrected WBC Cancelled RBC 2.73 L Cancelled Hgb 8.7 L Cancelled Hct 29.0 L Cancelled MCV 106.2 H Cancelled MCH 31.9 Cancelled MCHC 30.0 L Cancelled RDW Std Deviation 76.6 H Cancelled RDW Coeff of [place] 20.3 H Cancelled Plt Count 140 L Cancelled MPV 11.4 Cancelled Immature Gran % (Auto) 0.500 Cancelled Neut % (Auto) 79.5 H Cancelled Lymph % (Auto) 11.6 L Cancelled [place] % (Auto) 6.4 Cancelled Eos % (Auto) 1.1 Cancelled Baso % (Auto) 0.9 Cancelled Absolute Neuts (auto) 3.5 Cancelled Absolute Lymphs (auto) 0.51 L Cancelled Total Counted Cancelled Neutrophils % (Manual) Cancelled Band Neutrophils % Cancelled Lymphocytes % (Manual) Cancelled Monocytes % (Manual) Cancelled Eosinophils % (Manual) Cancelled Basophils % (Manual) Cancelled Metamyelocytes % Cancelled Myelocytes % Cancelled Promyelocytes % Cancelled Blast Cells % Cancelled Plasma Cell % (Manual) Cancelled Other Cells % Cancelled Nucleated RBC % 0 Cancelled Nucleated RBCs/100 WBC Cancelled Differential Comment COMMENT Cancelled Diff Path Review Cancelled Hypersegmented Neuts Cancelled Atypical Lymphocytes Cancelled Reactive Lymphocytes Cancelled Smudge Cells Cancelled Toxic Granulation Cancelled Toxic Vacuolation Cancelled Dohle Bodies Cancelled Yanira Rods Cancelled Platelet Estimate Cancelled Plt Morphology Comment Cancelled RBC Morphology Cancelled Polychromasia Cancelled Hypochromasia Cancelled Poikilocytosis Cancelled Basophilic Stippling Cancelled Anisocytosis 1+ Cancelled Microcytosis Cancelled Macrocytosis Cancelled Spherocytes Cancelled Sickle Cells Cancelled Target Cells Cancelled Tear Drop Cells Cancelled Ovalocytes Cancelled Stomatocytes Cancelled Vu-[place] Afb Bodies Cancelled Franky Cells Cancelled Bite Cells Cancelled Crenated Cell Cancelled Acanthocytes (Spur) Cancelled Rouleaux Cancelled Schistocytes Cancelled PT INR Sodium 141 Potassium 3.8 Chloride 107 Carbon Dioxide 31.0 Anion Gap 3 L BUN 29 H Creatinine 1.40 H Estim Creat Clear Calc 41.28 Est GFR (MDRD) Af Amer 62 Est GFR (MDRD) Non-Af 51 L BUN/Creatinine Ratio 20.7 H Glucose 171 H Calcium 8.1 L 10/22/21 10/22/21 10:04 10:04 WBC Corrected WBC RBC Hgb Hct MCV MCH MCHC RDW Std Deviation RDW Coeff of [place] Plt Count MPV Immature Gran % (Auto) Neut % (Auto) Lymph % (Auto) [place] % (Auto) Eos % (Auto) Baso % (Auto) Absolute Neuts (auto) Absolute Lymphs (auto) Total Counted Neutrophils % (Manual) Band Neutrophils % Lymphocytes % (Manual) Monocytes % (Manual) Eosinophils % (Manual) Basophils % (Manual) Metamyelocytes % Myelocytes % Promyelocytes % Blast Cells % Plasma Cell % (Manual) Other Cells % Nucleated RBC % Nucleated RBCs/100 WBC Differential Comment Diff Path Review Hypersegmented Neuts Atypical Lymphocytes Reactive Lymphocytes Smudge Cells Toxic Granulation Toxic Vacuolation Dohle Bodies Yanira Rods Platelet Estimate Plt Morphology Comment RBC Morphology Polychromasia Hypochromasia Poikilocytosis Basophilic Stippling Anisocytosis Microcytosis Macrocytosis Spherocytes Sickle Cells Target Cells Tear Drop Cells Ovalocytes Stomatocytes Vu-[place] Afb Bodies Franky Cells Bite Cells Crenated Cell Acanthocytes (Spur) Rouleaux Schistocytes PT 44.5 H INR 4.8 H* Sodium Cancelled Potassium Cancelled Chloride Cancelled Carbon Dioxide Cancelled Anion Gap Cancelled BUN Cancelled Creatinine Cancelled Estim Creat Clear Calc Cancelled Est GFR (MDRD) Af Amer Cancelled Est GFR (MDRD) Non-Af Cancelled BUN/Creatinine Ratio Cancelled Glucose Cancelled Calcium Cancelled Radiography Chest X-Ray - ED: 1 View Diagnostic Testing: Clinical Impression(s) from Imaging Studies Chest X-Ray 10/22/21 10:20 IMPRESSION: Mild increased markings at the lung bases suggestive of either atelectasis and/or early infiltrates. Follow-up is recommended. Electronically Signed: Tyler Early MD at 10:55 EDT , 1 view chest x-ray obtained interpreted by myself as no acute disease process. Radiology felt patient may have some mild increased markings in both bases which may be atelectasis versus early infiltrate. Discharge Plan Triage Chief Complaint: GI Bleed ED Provider: Mika Webster Dx/Rx/DC Orders Clinical Impression: Hematemesis, Supratherapeutic INR, Anemia Prescriptions: No Action isosorbide mononitrate 30 mg tablet extended release 24 hr 30 mg PO QAM RF: 0 warfarin 7.5 mg tablet 7.5 mg PO MOWEFR RF: 0 Hold Instructions: Resume on 08/22/21. metoprolol tartrate 25 mg tablet 12.5 mg PO BID RF: 0 nitroglycerin 0.4 mg tablet, sublingual 0.4 mg SUBLINGUAL Q5M PRN (Reason: Chest Pain) Qty: 30 RF: 0 rosuvastatin 40 MG tablet 40 mg PO QHS RF: 0 pantoprazole 40 mg tablet,delayed release (DR/EC) 40 mg PO BID RF: 0 ferrous sulfate 325 MG tablet 325 mg PO BIDCM RF: 0 cholecalciferol (vitamin D3) 1,000 UNIT tablet 2,000 unit PO DAILY RF: 0 albuterol sulfate 90 MCG aerosol powdr breath activated 1 puff INHALATION Q4H PRN PRN (Reason: Wheezing) RF: 0 aspirin 81 MG tablet 81 mg PO DAILY@0800 RF: 0 folic acid 1 MG tablet 1 mg PO QHS RF: 0 ipratropium-albuterol 3 ML solution for nebulization 3 ml INHALATION Q4H PRN PRN (Reason: sob/wheezing) Qty: 30 RF: 0 zolpidem 10 MG tablet 10 mg PO QHS RF: 0 pregabalin 75 MG capsule 75 mg PO TID RF: 0 Stiolto Respimat 2.5-2.5 mcg/actuation Mist 1 puff INHALATION DAILY RF: 0 furosemide 40 MG tablet 40 mg PO DAILY RF: 0 buprenorphine 10 mcg/hour patch weekly 10 mcg transdermal QWEEK RF: 0 fluconazole 100 mg Tablet 100 mg PO DAILY 12 Days Qty: 12 RF: 0 nystatin 100,000 unit/mL Suspension 500,000 unit PO 4X/DAY 6 Days Qty: 120 RF: 0 prednisone 10 mg tablet 10 mg PO DAILY Qty: 10 RF: 0 warfarin 5 mg tablet 5 mg PO DAILY Qty: 90 RF: 3 enoxaparin 60 mg/0.6 mL syringe 60 mg subcut Q12H Qty: 6 RF: 2 Primary Care Provider: Guillermo Pritchard Referrals: Guillermo Pritchard MD [Primary Care Provider] - Disposition Disposition: Acute Care Hospital [facility]
[2021-10-22 10:22] LABS: Absolute Lymphocyte Count 0.51 X10^3/uL (0.83-4.51); Absolute Neutrophil Count 3.5 X10^3/uL (2.0-7.7); Basophil# 0.04 X10^3/uL; Basophil% 0.9 % (0-1); Eosinophil# 0.05 X10^3/uL; Eosinophils% 1.1 % (0-5); Hemoglobin 8.7 g/dL (13.0-16.5); Lymphocyte # 0.51 X10^3/ul (0.83-4.51); Lymphocyte % 11.6 % (19-41); Mean Corpuscular Hgb 31.9 pg (27.0-32.0); Mean Corpuscular Volume 106.2 fL (80-94); Mean Platelet Vol. 11.4 fl (6.2-12.0); Monocyte# 0.28 X10^3/uL; Monocyte% 6.4 % (0-10); NRBC Flagged by Analyzer 0 % (0-5); Neutrophil % 79.5 % (47-70); POSITIVE DIFFERENTIAL YES; POSITIVE MORPHOLOGY YES; Platelet Count 140 K/mm3 (150-450); RBC Distribution Width CV 20.3 % (11.6-14.6); RBC Distribution Width SD 76.6 fl (35.1-43.9); Red Blood Count 2.73 M/mm3 (4.6-6.2); White Blood Count 4.4 K/mm3 (4.4-11.0)
[2021-10-22 10:23] LABS: Differential Indicated SCAN CRITERIA MET
[2021-10-22] MEDS: 0.9% Normal Saline 1,000 ML 125 ML IV (10:36)
[2021-10-22 10:40] LABS: Anion Gap 3 (5-15); BUN 29 mg/dL (7-18); BUN/Creat Ratio 20.7 RATIO (10-20); Calcium,Total 8.1 mg/dL (8.5-10.1); Chloride 107 mmol/L (98-107); EST Glomerular Filtration Rate 51 mL/min (>60); Est Glom Filt Rate - Afr Amer 62 mL/min (>60); Estimated Creatinine Clearance 41.28 ml/min; Glucose 171 mg/dL (74-106); Potassium 3.8 mmol/L (3.5-5.1); Sodium Level 141 mmol/L (136-145)
[2021-10-22 10:48] LABS: International Normalized Ratio 4.8
[2021-10-22 10:49] LABS: Prothrombin Time (Protime)PT. 44.5 SECONDS (11.7-14.9)
[2021-10-22 10:50] LABS: Anisocytosis 1+
--- NOTE | 2021-10-22 11:00 | CON.PCM.GI_ITS ---
HPI Consult Data Date of Consult: 10/22/21 HPI Narrative HPI Narrative: REBECCA ARRIOLA, is a 81 M who presents to the ED for the evaluation of possible Hematemsis. He has a PMH of Chronic anemia/Fe Deficiency anemia, PAF, HTN, HLD, GERD, Chronic systolic CHF, COPD, CAD s/p CABG RED-LAD 1193 and PCI x 2 , Valvular Heart Disease s/p AVR 1992. Patient pre sents to the emergency department spitting up blood. Patient states symptoms started around 7 AM. Patient states he was drinking some hot chocolate when he started feeling like there was something in the back of his throat and he started coughing up bright red blood. Patient is on Coumadin. Patient has history of mechanical aortic valve. Patient denies any recent illness. He also has a history of prior AR as well as A. fib. Patient denies any abdominal pain or black tarry stool. [facility] Medical History (Updated 10/22/21 @ 11:[address] Mika Webster, ) Ambulates with cane Anemia due to chronic blood loss Arthritis Atherosclerotic heart disease of [place] coronary artery without angina pectoris Back pain Back pain due to injury Cardiology follow-up encounter CHF (congestive heart failure) Chronic cough Chronic pain syndrome Chronic systolic (congestive) heart failure COPD (chronic obstructive pulmonary disease) COPD (chronic obstructive pulmonary disease) Difficulty swallowing Essential hypertension Gastric reflux Heart attack High cholesterol History of atrial fibrillation History of CHF (congestive heart failure) History of echocardiogram History of edema History of GI bleed History of heart attack History of pain when walking History of stress test Hx of fracture of ankle Hx of fracture of ankle Hypertension Injury of back Injury of head and neck Irregular heartbeat Ischemic cardiomyopathy [employer] current use of anticoagulant 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 Paroxysmal atrial fibrillation Pure hypercholesterolemia Restless legs Secondary pulmonary arterial hypertension Shortness of breath on exertion Smoker Spinal stenosis of lumbar region Stroke TIA (transient ischemic attack) Tobacco use disorder Uncontrolled pain Wears dentures Wears glasses Home Medications rosuvastatin 40 mg PO QHS 07/15/13 [History Last Taken 08/15/21 22:00] ferrous sulfate 325 mg PO BIDCM 09/13/15 [History Last Taken 08/14/21 18:00] albuterol sulfate 1 puff INHALATION Q4H PRN PRN 09/25/15 [History Last Taken 06/04/18] cholecalciferol (vitamin D3) 2,000 unit PO DAILY 09/25/15 [History Last Taken 08/15/21 08:00] aspirin 81 mg PO DAILY@0800 06/24/16 [History Last Taken 08/15/21 08:00] folic acid 1 mg PO QHS 06/24/16 [History Last Taken 08/15/21 22:00] ipratropium-albuterol 3 ml INHALATION Q4H PRN PRN #30 ampul.neb 11/02/16 [Rx Last Taken 06/04/18] isosorbide mononitrate 30 mg tablet,extended release 24 hr 30 mg PO QAM 11/21/17 [History Last Taken 08/15/21 08:00] pantoprazole 40 mg tablet,delayed release 40 mg PO BID tab 01/02/18 [History Last Taken 08/15/21 22:00] warfarin 7.5 mg tablet 7.5 mg PO MOWEFR tab 01/02/18 [History Last Taken 08/14/21 17:00] zolpidem 10 mg PO QHS 05/26/18 [History Last Taken 08/15/21 22:00] pregabalin 75 mg PO TID 07/28/18 [History Last Taken 08/15/21 22:00] metoprolol tartrate 25 mg tablet 12.5 mg PO BID tab 11/26/19 [History Last Taken 08/15/21 22:00] nitroglycerin 0.4 mg sublingual tablet 0.4 mg SUBLINGUAL Q5M PRN #30 tab 05/25/21 [Rx Last Taken Unknown] Stiolto Respimat 1 puff INHALATION DAILY 06/18/21 [History Last Taken 08/15/21 08:00] furosemide 40 mg PO DAILY 06/21/21 [History Last Taken 08/15/21 08:00] buprenorphine 10 mcg TRANSDERMAL QWEEK 08/16/21 [History Last Taken 08/09/21 08:00] fluconazole 100 mg PO DAILY 12 Days #12 tab 08/20/21 [Rx Last Taken Unknown] prednisone 10 mg PO DAILY #10 tab 08/20/21 [Rx Last Taken Unknown] warfarin 5 mg tablet 5 mg PO DAILY #90 tab 08/20/21 [Rx Last Taken Unknown] Allergy/AdvReac Type Severity Reaction Status Date / Time No Known Allergies Allergy Verified 06/21/21 18:50 Family History Son , age 44 from [place] CAD (coronary artery disease) Myocardial infarction Sudden cardiac Brother CAD (coronary artery disease) Pt states all nine of his siblings have heart problems Sister CAD (coronary artery disease) Patient states all nine of his siblings have heart problems Surgical History H/O cardiac catheterization History of coronary artery stent placement (~06/28/11) History of left heart catheterization History of lumbar fusion History of mechanical aortic valve replacement (~03/27/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) Status post cardiac surgery Social History (Updated 10/22/21 @ 14:28 by Roopa Benavidez NP, [employer]) Smoking Status: Current every day smoker tobacco type: cigarettes alcohol intake: never substance use type: does not use ROS Gastrointestinal Gastrointestinal: Reports hematemesis Physical Exam Const alert General Appearance: cooperative Orientation / Consciousness: oriented to person HEENT hearing grossly normal bilaterally Head and Scalp: normal to inspection Face and Sinus: face symmetric Nose: external nose normal Mouth: oral and palatal mucosa normal Eyes conjunctivae normal General Eye: normal appearance of both eyes Neck full ROM General: normal visual inspection Lymph Lymphatic: no lymphadenopathy noted Chest inspection of chest normal and palpation of chest normal Chest: symmetrical chest wall rise Resp normal respiratory effort Effort and Inspection: able to speak in complete sentences Cardio regular rate GI non-distended Percussion: normal to percussion Rectal Exam: deferred Neuro Speech: speech normal Gait (Neuro): normal gait Lab / Micro Data Result Diagrams: 10/22/21 15:20 10/22/21 10:04 Labs: Laboratory Results - last 24 hr 10/22/21 10:04: WBC 4.4, RBC 2.73 L, Hgb 8.7 L, Hct 29.0 L, MCV 106.2 H, MCH 31.9, MCHC 30.0 L, RDW Std Deviation 76.6 H, RDW Coeff of [place] 20.3 H, Plt Count 140 L, MPV 11.4, Immature Gran % (Auto) 0.500, Neut % (Auto) 79.5 H, Lymph % (Auto) 11.6 L, [place] % (Auto) 6.4, Eos % (Auto) 1.1, Baso % (Auto) 0.9, Absolute Neuts (auto) 3.5, Absolute Lymphs (auto) 0.51 L, Nucleated RBC % 0, Differential Comment COMMENT, Anisocytosis 1+ 10/22/21 10:04: Sodium 141, Potassium 3.8, Chloride 107, Carbon Dioxide 31.0, Anion Gap 3 L, BUN 29 H, Creatinine 1.40 H, Estim Creat Clear Calc 41.28, Est GFR (MDRD) Af Amer 62, Est GFR (MDRD) Non-Af 51 L, BUN/Creatinine Ratio 20.7 H, Glucose 171 H, Calcium 8.1 L 10/22/21 10:04: WBC Cancelled, Corrected WBC Cancelled, RBC Cancelled, Hgb Cancelled, Hct Cancelled, MCV Cancelled, MCH Cancelled, MCHC Cancelled, RDW Std Deviation Cancelled, RDW Coeff of [place] Cancelled, Plt Count Cancelled, MPV Cancelled, Immature Gran % (Auto) Cancelled, Neut % (Auto) Cancelled, Lymph % (Auto) Cancelled, [place] % (Auto) Cancelled, Eos % (Auto) Cancelled, Baso % (Auto) Cancelled, Absolute Neuts (auto) Cancelled, Absolute Lymphs (auto) Cancelled, Total Counted Cancelled, Neutrophils % (Manual) Cancelled, Band Neutrophils % Cancelled, Lymphocytes % (Manual) Cancelled, Monocytes % (Manual) Cancelled, Eosinophils % (Manual) Cancelled, Basophils % (Manual) Cancelled, Metamyelocytes % Cancelled, Myelocytes % Cancelled, Promyelocytes % Cancelled, Blast Cells % Cancelled, Plasma Cell % (Manual) Cancelled, Other Cells % Cancelled, Nucleated RBC % Cancelled, Nucleated RBCs/100 WBC Cancelled, Differential Comment Cancelled, Diff Path Review Cancelled, Hypersegmented Neuts Cancelled, Atypical Lymphocytes Cancelled, Reactive Lymphocytes Cancelled, Smudge Cells Cancelled, Toxic Granulation Cancelled, Toxic Vacuolation Cancelled, Dohle Bodies Cancelled, Yanira Rods Cancelled, Platelet Estimate Cancelled, Plt Morphology Comment Cancelled, RBC Morphology Cancelled, Polychromasia Cancelled, Hypochr omasia Cancelled, Poikilocytosis Cancelled, Basophilic Stippling Cancelled, Anisocytosis Cancelled, Microcytosis Cancelled, Macrocytosis Cancelled, Spherocytes Cancelled, Sickle Cells Cancelled, Target Cells Cancelled, Tear Drop Cells Cancelled, Ovalocytes Cancelled, Stomatocytes Cancelled, [place] Bodies Cancelled, [place] Cells Cancelled, Bite Cells Cancelled, Crenated Cell Cancelled, Acanthocytes (Spur) Cancelled, Rouleaux Cancelled, Schistocytes Cancelled 10/22/21 10:04: Sodium Cancelled, Potassium Cancelled, Chloride Cancelled, Carbon Dioxide Cancelled, Anion Gap Cancelled, BUN Cancelled, Creatinine Cancelled, Estim Creat Clear Calc Cancelled, Est GFR (MDRD) Af Amer Cancelled, Est GFR (MDRD) Non-Af Cancelled, BUN/Creatinine Ratio Cancelled, Glucose Cancelled, Calcium Cancelled 10/22/21 10:04: PT 44.5 H, INR 4.8 H* 10/22/21 10:04: Blood Type O POSITIVE, Antibody Screen NEGATIVE 10/22/21 10:04: Crossmatch See Detail 10/22/21 12:40: Hgb 7.9 L, Hct 27.1 L 10/22/21 12:40: Hgb Cancelled 10/22/21 15:20: Hgb 7.7 L, Hct 25.9 L Micro: Microbiology 10/22/21 11:36 Nasal Secretion SARS-CoV-2 Antigen (Rapid) - Final Radiology Impression Chest X-Ray 10/22/21 10:20 IMPRESSION: Mild increased markings at the lung bases suggestive of either atelectasis and/or early infiltrates. Follow-up is recommended. Electronically Signed: Tyler Early MD at 10:55 EDT , Assessment & Plan Assessment/Plan (1) Hematemesis: PLAN: Patient should undergo an egd for the evaluation of his upper GI tract for his complaints of hematemesis. The differential diagnosis does include a Alise-Almanzar tear, peptic ulcer disease, gastritis in the setting of an elevated INR, AVM, erosive esophagitis. He was explained alternatives, risk, benefits including not withstanding bleeding, infection, sepsis, perforation, need for emergent . He will have an ASA of 3. Charges/Coding Visit Charges Inpatient E&M: 78510 Init Hosp L2
[2021-10-22 12:55] LABS: Hematocrit 27.1 % (40-54); Hemoglobin 7.9 g/dL (13.0-16.5)
--- NOTE | 2021-10-22 14:13 | HP.PCM.HOS_ITS ---
Documented by User: Roopa Benavidez NP, MILKING MACHINE MECHANIC-C 10/22/21 15:57 HPI - General General Date of Admission: 10/22/21 HPI Narrative REBECCA ARRIOLA, is a 81 M who presents to the emergency room due to coughing up blood. Patient states he had recurrent episodes this morning of coughing up bright red blood. He denies any known nasal bleeding. Denies any feeling of postnasal drainage. Denies any blood in stool or black stools. Patient takes Coumadin due to history of mechanical aortic valve replacement. Patient had prior upper endoscopy in August which demonstrated candidiasis and Schatzki ring. He denies lightheadedness, chest pain. Denies other associated symptoms or complaints. Patient has a past medical history of chronic heart failure with reduced ejection fraction/ischemic cardiomyopathy, chronic kidney disease stage IIIa, chronic COPD, persistent atrial fibrillation, CAD with history of CABG, valvular heart disease with history of aortic valve replacement with mechanical valve, hypertension, hyperlipidemia, tobacco dependence, GERD. [facility] Medical History (Updated 10/22/21 @ 11:[address] Mika Webster, ) Ambulates with cane Anemia due to chronic blood loss Arthritis Atherosclerotic heart disease of [place] coronary artery without angina pectoris Back pain Back pain due to injury Cardiology follow-up encounter CHF (congestive heart failure) Chronic cough Chronic pain syndrome Chronic systolic (congestive) heart failure COPD (chronic obstructive pulmonary disease) COPD (chronic obstructive pulmonary disease) Difficulty swallowing Essential hypertension Gastric reflux Heart attack High cholesterol History of atrial fibrillation History of CHF (congestive heart failure) History of echocardiogram History of edema History of GI bleed History of heart attack History of pain when walking History of stress test Hx of fracture of ankle Hx of fracture of ankle Hypertension Injury of back Injury of head and neck Irregular heartbeat 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 Paroxysmal atrial fibrillation Pure hypercholesterolemia Restless legs Secondary pulmonary arterial hypertension Shortness of breath on exertion Smoker Spinal stenosis of lumbar region Stroke TIA (transient ischemic attack) Tobacco use disorder Uncontrolled pain Wears dentures Wears glasses Home Medications rosuvastatin 40 mg PO QHS 07/15/13 [History Last Taken 08/15/21 22:00] ferrous sulfate 325 mg PO BIDCM 09/13/15 [History Last Taken 08/14/21 18:00] albuterol sulfate 1 puff INHALATION Q4H PRN PRN 09/25/15 [History Last Taken 06/04/18] cholecalciferol (vitamin D3) 2,000 unit PO DAILY 09/25/15 [History Last Taken 08/15/21 08:00] aspirin 81 mg PO DAILY@0800 06/24/16 [History Last Taken 08/15/21 08:00] folic acid 1 mg PO QHS 06/24/16 [History Last Taken 08/15/21 22:00] ipratropium-albuterol 3 ml INHALATION Q4H PRN PRN #30 ampul.neb 11/02/16 [Rx Last Taken 06/04/18] isosorbide mononitrate 30 mg tablet,extended release 24 hr 30 mg PO QAM 11/21/17 [History Last Taken 08/15/21 08:00] pantoprazole 40 mg tablet,delayed release 40 mg PO BID tab 01/02/18 [History Last Taken 08/15/21 22:00] warfarin 7.5 mg tablet 7.5 mg PO MOWEFR tab 01/02/18 [History Last Taken 08/14/21 17:00] zolpidem 10 mg PO QHS 05/26/18 [History Last Taken 08/15/21 22:00] pregabalin 75 mg PO TID 07/28/18 [History Last Taken 08/15/21 22:00] metoprolol tartrate 25 mg tablet 12.5 mg PO BID tab 11/26/19 [History Last Taken 08/15/21 22:00] nitroglycerin 0.4 mg sublingual tablet 0.4 mg SUBLINGUAL Q5M PRN #30 tab 05/25/21 [Rx Last Taken Unknown] Stiolto Respimat 1 puff INHALATION DAILY 06/18/21 [History Last Taken 08/15/21 08:00] furosemide 40 mg PO DAILY 06/21/21 [History Last Taken 08/15/21 08:00] buprenorphine 10 mcg TRANSDERMAL QWEEK 08/16/21 [History Last Taken 08/09/21 08:00] fluconazole 100 mg PO DAILY 12 Days #12 tab 08/20/21 [Rx Last Taken Unknown] prednisone 10 mg PO DAILY #10 tab 08/20/21 [Rx Last Taken Unknown] warfarin 5 mg tablet 5 mg PO DAILY #90 tab 08/20/21 [Rx Last Taken Unknown] Allergy/AdvReac Type Severity Reaction Status Date / Time No Known Allergies Allergy Verified 06/21/21 18:50 Family History Son , age 44 from [place] CAD (coronary artery disease) Myocardial infarction Sudden cardiac Brother CAD (coronary artery disease) Pt states all nine of his siblings have heart problems Sister CAD (coronary artery disease) Patient states all nine of his siblings have heart problems Surgical History H/O cardiac catheterization History of coronary artery stent placement (~06/28/11) History of left heart catheterization History of lumbar fusion History of mechanical aortic valve replacement (~03/27/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) Status post cardiac surgery Social History (Updated 10/22/21 @ 14:28 by Roopa Benavidez NP, MILKING MACHINE MECHANIC-C) Smoking Status: Current every day smoker tobacco type: cigarettes alcohol intake: never substance use type: does not use ROS Constitutional Constitutional: Denies change in weight, chills, fatigue, fever(s) or weakness Cardiovascular Cardiovascular: Denies chest pain, edema, lightheadedness, palpitations or syncope Respiratory/Chest Respiratory/Chest: Denies cough, dyspnea, productive cough, shortness of breath at rest, shortness of breath with exertion or wheezing Gastrointestinal Gastrointestinal: Reports hematemesis; Denies abdominal pain, constipation, diarrhea, nausea or vomiting Genitourinary Genitourinary: Denies burning urination, difficulty urinating, dysuria, hematuria, urinary frequency, urinary incontinence or urinary urgency Musculoskeletal Musculoskeletal: Denies back pain, joint pain or muscle weakness Integumentary Integumentary: Denies erythema, lesions, rash or wounds Neurologic Neurologic: Denies abnormal speech, confusion, dizziness, focal weakness, numbness, paresthesias, seizure-like activity or syncope Psychiatric Psychiatric: Denies anxiety or depression Hematologic/Lymphatic Hematologic/Lymphatic: Denies anemia, easy bleeding or easy bruising Allergic/Immunologic Allergic/Immunologic: Denies hives or asthma Vital Signs Vital Signs Vital Signs: 10/22/21 09:54 10/22/21 10:52 10/22/21 11:16 Temperature 97.6 F L 97.3 F L Temperature Source Temporal Temporal Pulse Rate 49 L 48 L 49 L Respiratory Rate 15 14 17 Blood Pressure 120/47 L 119/88 H 110/55 L Blood Pressure [BP] Blood Pressure Mean 71 98 73 Blood Pressure Mean [BP] Blood Pressure Source Blood Pressure Source [BP] Blood Pressure Position Blood Pressure Position [BP] Blood Pressure Location Blood Pressure Location [BP] Baseline BP Pulse Ox 99 97 95 Oxygen Delivery Method Room Air Room Air Room Air 10/22/21 12:53 10/22/21 14:00 Temperature 98.5 F Temperature Source Temporal Pulse Rate 57 L Respiratory Rate 16 16 Blood Pressure 92/45 L Blood Pressure [BP] 95/47 L Blood Pressure Mean 60 Blood Pressure Mean [BP] 63 Blood Pressure Source Monitor Blood Pressure Source [BP] Monitor Blood Pressure Position Semi-Fowlers Blood Pressure Position [BP] Semi-Fowlers Blood Pressure Location Right Arm Blood Pressure Location [BP] Right Arm Baseline BP 119/88 Pulse Ox 94 91 Oxygen Delivery Method Room Air Room Air Weight Weight: 176 lb 5.917 oz Body Mass Index (BMI) 25.2 Physical Exam Const alert, oriented x3 and no apparent distress Orientation / Consciousness: awake, oriented to person, oriented to place and oriented to time HEENT normocephalic and moist oral mucous membranes Eyes PERRL, EOMs intact bilaterally and conjunctivae normal Neck no lymphadenopathy Resp normal respiratory effort and clear to auscultation bilaterally Cardio regular rate, regular rhythm and no murmurs Peripheral Pulses: pulses 2+ throughout GI normal to inspection, nondistended, normoactive bowel sounds, non-tender and non-distended Extremity normal to inspection Skin no rashes or lesions noted Lesions: no lesions Rashes: no rashes Trauma: no lacerations or abrasions Neuro CN's II-XII intact bilaterally, no focal motor deficits, no sensory deficits noted and deep tendon reflexes 2+ bilaterally Psych mental status grossly normal and affect normal Results Lab / Micro Data Result Diagrams: 10/22/21 15:20 10/22/21 10:04 Labs: Laboratory Results - last 24 hr 10/22/21 10:04: WBC 4.4, RBC 2.73 L, Hgb 8.7 L, Hct 29.0 L, MCV 106.2 H, MCH 31.9, MCHC 30.0 L, RDW Std Deviation 76.6 H, RDW Coeff of [place] 20.3 H, Plt Count 140 L, MPV 11.4, Immature Gran % (Auto) 0.500, Neut % (Auto) 79.5 H, Lymph % (Auto) 11.6 L, [place] % (Auto) 6.4, Eos % (Auto) 1.1, Baso % (Auto) 0.9, Absolute Neuts (auto) 3.5, Absolute Lymphs (auto) 0.51 L, Nucleated RBC % 0, Differential Comment COMMENT, Anisocytosis 1+ 10/22/21 10:04: Sodium 141, Potassium 3.8, Chloride 107, Carbon Dioxide 31.0, Anion Gap 3 L, BUN 29 H, Creatinine 1.40 H, Estim Creat Clear Calc 41.28, Est GFR (MDRD) Af Amer 62, Est GFR (MDRD) Non-Af 51 L, BUN/Creatinine Ratio 20.7 H, Glucose 171 H, Calcium 8.1 L 10/22/21 10:04: WBC Cancelled, Corrected WBC Cancelled, RBC Cancelled, Hgb Cancelled, Hct Cancelled, MCV Cancelled, MCH Cancelled, MCHC Cancelled, RDW Std Deviation Cancelled, RDW Coeff of [place] Cancelled, Plt Count Cancelled, MPV Cancelled, Immature Gran % (Auto) Cancelled, Neut % (Auto) Cancelled, Lymph % (Auto) Cancelled, [place] % (Auto) Cancelled, Eos % (Auto) Cancelled, Baso % (Auto) Cancelled, Absolute Neuts (auto) Cancelled, Absolute Lymphs (auto) Cancelled, Total Counted Cancelled, Neutrophils % (Manual) Cancelled, Band Neutrophils % Cancelled, Lymphocytes % (Manual) Cancelled, Monocytes % (Manual) Cancelled, Eo sinophils % (Manual) Cancelled, Basophils % (Manual) Cancelled, Metamyelocytes % Cancelled, Myelocytes % Cancelled, Promyelocytes % Cancelled, Blast Cells % Cancelled, Plasma Cell % (Manual) Cancelled, Other Cells % Cancelled, Nucleated RBC % Cancelled, Nucleated RBCs/100 WBC Cancelled, Differential Comment Cancelled, Diff Path Review Cancelled, Hypersegmented Neuts Cancelled, Atypical Lymphocytes Cancelled, Reactive Lymphocytes Cancelled, Smudge Cells Cancelled, Toxic Granulation Cancelled, Toxic Vacuolation Cancelled, Dohle Bodies Cancelled, Yanira Rods Cancelled, Platelet Estimate Cancelled, Plt Morphology Comment Cancelled, RBC Morphology Cancelled, Polychromasia Cancelled, Hypochromasia Cancelled, Poikilocytosis Cancelled, Basophilic Stippling Cancelled, Anisocytosis Cancelled, Microcytosis Cancelled, Macrocytosis Cancelled, Spherocytes Cancelled, Sickle Cells Cancelled, Target Cells Cancelled, Tear Drop Cells Cancelled, Ovalocytes Cancelled, Stomatocytes Cancelled, Vu-Bowlus Bodies Cancelled, [place] Cells Cancelled, Bite Cells Cancelled, Crenated Cell Cancelled, Acanthocytes (Spur) Cancelled, Rouleaux Cancelled, Schistocytes Cancelled 10/22/21 10:04: Sodium Cancelled, Potassium Cancelled, Chloride Cancelled, Carbon Dioxide Cancelled, Anion Gap Cancelled, BUN Cancelled, Creatinine Cancelled, Estim Creat Clear Calc Cancelled, Est GFR (MDRD) Af Amer Cancelled, Est GFR (MDRD) Non-Af Cancelled, BUN/Creatinine Ratio Cancelled, Glucose Cancelled, Calcium Cancelled 10/22/21 10:04: PT 44.5 H, INR 4.8 H* 10/22/21 10:04: Blood Type O POSITIVE, Antibody Screen NEGATIVE 10/22/21 10:04: Crossmatch See Detail 10/22/21 12:40: Hgb 7.9 L, Hct 27.1 L 10/22/21 12:40: Hgb Cancelled Micro: Microbiology 10/22/21 11:36 Nasal Secretion SARS-CoV-2 Antigen (Rapid) - Final Radiology Impression Chest X-Ray 10/22/21 10:20 IMPRESSION: Mild increased markings at the lung bases suggestive of either atelectasis and/or early infiltrates. Follow-up is recommended. Electronically Signed: Tyler Early MD at 10:55 EDT , Assessment & Plan Assessment/Plan (1) Anemia: (2) Supratherapeutic INR: PLAN: 1. Acute on chronic anemia/iron deficiency anemia/chronic thrombocytopenia-history of GI bleed. INR supratherapeutic. Patient underwent EGD which demonstrated red blood at the cricopharyngeus, blood coming from oropharynx. Old blood found in the gastric body. No active bleeding in the stomach or esophagus. PPI. Hold Coumadin. Trend H&H. 2. Supratherapeutic INR-hold Coumadin, trend INR. 3. Recent diagnosis esophageal candidiasis with Schatzki ring-Schatzki ring dilated 08/19/21. Completed nystatin and Diflucan. 4. Chronic heart failure with reduced ejection fraction/ischemic cardiomyopathy echocardiogram September 2020 demonstrated an EF of 45%. Continue medical management 5. Chronic kidney disease stage IIIa- at baseline. 6. Chronic COPD-as needed albuterol aerosols. 7. Persistent atrial fibrillation- On metoprolol, Coumadin. 8. CAD with history of CABG-continue aspirin, isosorbide, metoprolol, statin. 9. 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 10. Hypertension-stable, continue isosorbide, metoprolol. 11. Hyperlipidemia-continue statin. 12. Tobacco dependence-encouraged cessation. 13. GERD-continue PPI. DVT prophylaxis- hold coumadin This patient was seen by Roopa Benavidez NP-Arlene under the supervision of Dr. Nichole. Time spent examining patient, reviewing data and subsequent management of care: 17 Minutes Documented by User: Dr. Jerad Nichole DO 10/22/21 19:25 HPI - General General Date of Admission: 10/22/21 [facility] Medical History (Updated 10/22/21 @ 11:[address] Mika Webster DO) Ambulates with cane Anemia due to chronic blood loss Arthritis Atherosclerotic heart disease of [place] coronary artery without angina pectoris Back pain Back pain due to injury Cardiology follow-up encounter CHF (congestive heart failure) Chronic cough Chronic pain syndrome Chronic systolic (congestive) heart failure COPD (chronic obstructive pulmonary disease) COPD (chronic obstructive pulmonary disease) Difficulty swallowing Essential hypertension Gastric reflux Heart attack High cholesterol History of atrial fibrillation History of CHF (congestive heart failure) History of echocardiogram History of edema History of GI bleed History of heart attack History of pain when walking History of stress test Hx of fracture of ankle Hx of fracture of ankle Hypertension Injury of back Injury of head and neck Irregular heartbeat 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 Paroxysmal atrial fibrillation Pure hypercholesterolemia Restless legs Secondary pulmonary arterial hypertension Shortness of breath on exertion Smoker Spinal stenosis of lumbar region Stroke TIA (transient ischemic attack) Tobacco use disorder Uncontrolled pain Wears dentures Wears glasses Home Medications rosuvastatin 40 mg PO QHS 07/15/13 [History Last Taken 08/15/21 22:00] ferrous sulfate 325 mg PO BIDCM 09/13/15 [History Last Taken 08/14/21 18:00] albuterol sulfate 1 puff INHALATION Q4H PRN PRN 09/25/15 [History Last Taken 06/04/18] cholecalciferol (vitamin D3) 2,000 unit PO DAILY 09/25/15 [History Last Taken 08/15/21 08:00] aspirin 81 mg PO DAILY@0800 06/24/16 [History Last Taken 08/15/21 08:00] folic acid 1 mg PO QHS 06/24/16 [History Last Taken 08/15/21 22:00] ipratropium-albuterol 3 ml INHALATION Q4H PRN PRN #30 ampul.neb 11/02/16 [Rx La st Taken 06/04/18] isosorbide mononitrate 30 mg tablet,extended release 24 hr 30 mg PO QAM 11/21/17 [History Last Taken 08/15/21 08:00] pantoprazole 40 mg tablet,delayed release 40 mg PO BID tab 01/02/18 [History Last Taken 08/15/21 22:00] warfarin 7.5 mg tablet 7.5 mg PO MOWEFR tab 01/02/18 [History Last Taken 08/14/21 17:00] zolpidem 10 mg PO QHS 05/26/18 [History Last Taken 08/15/21 22:00] pregabalin 75 mg PO TID 07/28/18 [History Last Taken 08/15/21 22:00] metoprolol tartrate 25 mg tablet 12.5 mg PO BID tab 11/26/19 [History Last Taken 08/15/21 22:00] nitroglycerin 0.4 mg sublingual tablet 0.4 mg SUBLINGUAL Q5M PRN #30 tab 05/25/21 [Rx Last Taken Unknown] Stiolto Respimat 1 puff INHALATION DAILY 06/18/21 [History Last Taken 08/15/21 08:00] furosemide 40 mg PO DAILY 06/21/21 [History Last Taken 08/15/21 08:00] buprenorphine 10 mcg TRANSDERMAL QWEEK 08/16/21 [History Last Taken 08/09/21 08:00] fluconazole 100 mg PO DAILY 12 Days #12 tab 08/20/21 [Rx Last Taken Unknown] prednisone 10 mg PO DAILY #10 tab 08/20/21 [Rx Last Taken Unknown] warfarin 5 mg tablet 5 mg PO DAILY #90 tab 08/20/21 [Rx Last Taken Unknown] Allergy/AdvReac Type Severity Reaction Status Date / Time No Known Allergies Allergy Verified 06/21/21 18:50 Family History (Reviewed 10/22/21 @ 14:28 by Roopa Benavidez MILKING MACHINE MECHANIC, MILKING MACHINE MECHANIC-C) Son , age 44 from [place] CAD (coronary artery disease) Myocardial infarction Sudden cardiac Brother CAD (coronary artery disease) Pt states all nine of his siblings have heart problems Sister CAD (coronary artery disease) Patient states all nine of his siblings have heart problems Surgical History (Reviewed 10/22/21 @ 14:28 by Roopa Benavidez MILKING MACHINE MECHANIC, MILKING MACHINE MECHANIC-C) H/O cardiac catheterization History of coronary artery stent placement (~06/28/11) History of left heart catheterization History of lumbar fusion History of mechanical aortic valve replacement (~03/27/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) Status post cardiac surgery Social History (Updated 10/22/21 @ 14:28 by Roopa Benavidez MILKING MACHINE MECHANIC, MILKING MACHINE MECHANIC-C) Smoking Status: Current every day smoker tobacco type: cigarettes alcohol intake: never substance use type: does not use Results Lab / Micro Data Result Diagrams: 10/22/21 15:20 10/22/21 10:04 Charges/Coding Addendum Addendum: Patient was seen and examined today independently of Roopa Benaivdez, he came to the emergency room today with concerns of vomiting up blood, patient has a history of mechanical heart valve and has to be on Coumadin. Patient states that he noticed himself spitting up blood approximately 7 AM this morning, patient underwent an EGD in August 2021 which revealed a Schatzki's ring which was dilated and Kaycee esophagitis. On examination he appeared in good health and spirits. Vital signs as documented. Skin warm and dry and without overt rashes. Neck without JVD, neck was supple, trachea midline, thyroid was normal. Lungs clear bilaterally, normal air movement was noted. Heart exam notable for regular rhythm, normal sounds and absence of murmurs, rubs or gallops. Abdomen unremarkable and without evidence of organomegaly, masses, or abdominal aortic enlargement. Bowel sounds are present, abdomen is not distended. Extremities nonedematous, no cyanosis was noted, no clubbing was noted. Neuro: Cranial nerves II through XII are grossly intact, no focal motor deficits were noted, sensation to light touch and pinprick intact, motor exam 5/5 throughout. Psych: Patient is alert and oriented x3, he does not appear anxious or depressed, he does not appear agitated. Labs done in the emergency room showed his hemoglobin to be 8.7, INR was elevated at 4.8, creatinine was elevated at 1.4, and glucose was 171. Gastroenterology was contacted, he was taken to endoscopy directly from the emergency room, no bleeding was seen in the gastrointestinal tract on the EGD, there was felt to be bleeding from the posterior nose. No active bleeding was seen during the endoscopy, there was some old blood in the patient's esophagus and stomach. Patient will be admitted to PCU, hemoglobin will be monitored, he will be typed and crossed for 2 units of packed red blood cells, patient has an extensive history of multiple medical problems including ischemic ca rdiomyopathy, atherosclerotic heart disease, pulmonary hypertension, and mechanical heart valve. Impression: #1 acute hemorrhage from posterior nasal bleed exacerbated by chronic use of warfarin-patient will be observed on PCU, serial H&H's will be obtained, if patient drops into the 7 range I recommend transfusing 2 units of packed red blood cells due to the patient's comorbidities. #2 ischemic cardiomyopathy-patient will remain on his present medication #3 atherosclerotic heart disease-patient will remain on his present medication #4 supratherapeutic INR-patient's warfarin will be held, INR will be rechecked tomorrow #5 mechanical aortic valve-patient will have to stay on warfarin unless there is severe hemorrhage at which case we will need to keep the patient off warfarin for 48 hours and perhaps administer vitamin K. For now, I do not think the patient needs vitamin K. #6 paroxysmal atrial fibrillation-patient is currently in sinus rhythm I have reviewed Roopa Benavidez's history and physical including her medical assessment and plan of care and with the above additions and corrections, endorse it. Total clinical time spent by myself addressing the patient's medical issues, reviewing the patient's medical data, and collaborating with the patient's care team: 55 minutes Visit Charges Inpatient E&M: 36429 Init Hosp L3
--- NOTE | 2021-10-22 14:42 | OP.EGD_ITS ---
Patient Name: Kash Montejo Procedure Date: 10/22/2021 1:35 PM Date of : 1940 Age: 81 Procedure: Upper GI endoscopy Indications: Hematochezia Providers: Fazal Muir DO Medicines: See the Anesthesia note for documentation of the administered medications Patient Profile: This is an 81 year old male. Refer to note in patient chart for documentation of history and physical. Patient has symptoms of acute vomiting. Complications: No immediate complications. Procedure: Pre-Anesthesia Assessment: - Prior to the procedure, a History and Physical was performed, and patient medications and allergies were reviewed. The patient is competent. The risks and benefits of the procedure and the sedation options and risks were discussed with the patient. All questions were answered and informed consent was obtained. Patient identification and proposed procedure were verified by the physician in the pre-procedure area. Mental Status Examination: alert and oriented. Airway Examination: normal oropharyngeal airway and neck mobility. Respiratory Examination: clear to auscultation. CV Examination: normal. Prophylactic Antibiotics: The patient does not require prophylactic antibiotics. Prior Anticoagulants: The patient has taken no previous anticoagulant or antiplatelet agents. ASA Grade Assessment: II - A patient with mild systemic disease. After reviewing the risks and benefits, the patient was deemed in satisfactory condition to undergo the procedure. The anesthesia plan was to use moderate sedation / analgesia (conscious sedation). Immediately prior to administration of medications, the patient was re-assessed for adequacy to receive sedatives. The heart rate, respiratory rate, oxygen saturations, blood pressure, adequacy of pulmonary ventilation, and response to care were monitored throughout the procedure. The physical status of the patient was re-assessed after the procedure. After obtaining informed consent, the endoscope was passed under direct vision. Throughout the procedure, the patient's blood pressure, pulse, and oxygen saturations were monitored continuously. The gastroscope was introduced through the mouth, and advanced to the second part of duodenum. The upper GI endoscopy was accomplished without difficulty. The patient tolerated the procedure well. Moderate Sedation: Moderate (conscious) sedation was administered by the endoscopy nurse and supervised by the endoscopist. The patient's oxygen saturation, heart rate, blood pressure and response to care were monitored. Total physician intraservice time was 15 minutes. Scope In: 1:46:12 PM Scope Out: 1:53:00 PM Total Procedure Duration Time 0 hours 6 minutes 48 seconds Findings: Red blood was found at the cricopharyngeus. It appeared as if blood was coming from the oropharynx. old blood was found in the gastric body. No active bleeding was seen in the stomach or esophagus. The second portion of the duodenum was normal. Impression: - Red blood at the cricopharyngeus. - Red blood in the gastric body. - Normal second portion of the duodenum. - No specimens collected. Recommendation: - [facility]. - NPO today. - Continue present medications. Procedure Code(s): --- Professional --- 62238, Esophagogastroduodenoscopy, flexible, transoral; diagnostic, including collection of specimen(s) by brushing or washing, when performed (separate procedure) 34284, 59, Moderate sedation services provided by the same physician or other qualified health career technical education teacher performing the diagnostic or therapeutic service that the sedation supports, requiring the presence of an independent trained observer to assist in the monitoring of the patient's level of consciousness and physiological status; initial 15 minutes of intraservice time, patient age 5 years or older CPT copyright 2017 [employer]. All rights reserved. The codes documented in this report are preliminary and upon inspector canvas products review may be revised to meet current compliance requirements. Fazal Muir DO 10/22/2021 2:42:10 PM This report has been signed electronically. Number of Addenda: 1 Note Initiated On: 10/22/2021 1:35 PM Addendum Number: 1 Addendum Date: 04/15/2022 6:44:07 AM MAC was used as sedation for this procedure. Fazal Muir DO 04/15/2022 6:44:10 AM This report has been signed electronically.
--- NOTE | 2021-10-22 14:43 | OP.CCLET_ITS ---
04/15/2022 Guillermo Pritchard MD [address] [phone] Re : Upper GI endoscopy procedure for Kash Gustabo Dear Dr. Pritchard This procedure was performed on October. My impressions and recommendations are as follows: Impressions : - Red blood at the cricopharyngeus. - Red blood in the gastric body. - Normal second portion of the duodenum. - No specimens collected. Recommendations : - [facility]. - NPO today. - Continue present medications. My findings are described in the full procedure note, which is enclosed. If I can be of further assistance, please feel free to contact me at . Sincerely, Fazal Muir, 10/22/2021 2:42:10 PM This report has been signed electronically.
[2021-10-22] MEDS: 0.9% Normal Saline 1,000 ML 75 ML IV (15:29)
[2021-10-22 15:30] LABS: Hematocrit 25.9 % (40-54); Hemoglobin 7.7 g/dL (13.0-16.5)
[2021-10-22] MEDS: Pregabalin 75 MG Capsule PO ×2 (16:50→20:57)
[2021-10-22] MEDS: Ipratropium/Albuterol Sulfate 3 ML AMPUL.NEB INHALATION (19:00)
[2021-10-22 19:55] LABS: Hematocrit 26.2 % (40-54); Hemoglobin 7.8 g/dL (13.0-16.5)
[2021-10-22 20:16] LABS: Iron 37 ug/dL (65-175); Iron Binding Capacity,Total 304 ug/dL (250-450); PERCENT IRON SATURATION 12.2 % (15.0-55.0)
--- NOTE | 2021-10-22 20:54 | EKG12_ITS ---
Test Reason : BASELINE Blood Pressure : / mmHG Vent. Rate : 052 BPM Atrial Rate : 052 BPM P-R Int : 328 ms QRS Dur : 128 ms QT Int : 490 ms P-R-T Axes : 051 -55 030 degrees QTc Int : 455 ms Sinus bradycardia with 1st degree A-V block Left axis deviation Right bundle branch block Anteroseptal infarct (cited on or before 22-OCT-2021) Abnormal ECG When compared with ECG of 16-AUG-2021 16:38, Premature ventricular complexes are no longer Present Premature supraventricular complexes are no longer Present QRS duration has decreased Serial changes of Anteroseptal infarct Present Confirmed by RIDDHI KO, KAVON ([id number]), general expeditor MIMA VALDEZ ([id number]) on 10/30/2021 1:06:44 PM Referred By: Fazal Muir Confirmed By:CARRIE HANNON MD
[2021-10-22] MEDS: Folic Acid 1 MG Tablet PO (20:57)
[2021-10-22] MEDS: Atorvastatin Calcium 80 MG Tablet PO (20:57)
[2021-10-22 21:09] LABS: Vitamin B12 273 pg/mL (211-911)
[2021-10-22 21:22] LABS: Magnesium 2.1 mg/dL (1.6-2.6)
[2021-10-23] VITALS (11 sets, daily range): BP systolic 112–128; BP diastolic 51–66; PULSE 49–75; RESP 12–18; TEMP 35.9–36.3; O2SAT 83–99
[2021-10-23] MEDS: 0.9% Saline Lock 10 ML Syringe IV (02:59)
[2021-10-23 05:01] LABS: Hemoglobin 9.9 g/dL (13.0-16.5)
[2021-10-23 05:16] LABS: International Normalized Ratio 4.1; Prothrombin Time (Protime)PT. 38.9 SECONDS (11.7-14.9)
[2021-10-23] MEDS: 0.9% Normal Saline 1,000 ML 75 ML IV (05:31)
[2021-10-23] MEDS: Pregabalin 75 MG Capsule PO (05:31)
[2021-10-23] MEDS: Ipratropium/Albuterol Sulfate 3 ML AMPUL.NEB INHALATION (07:39)
[2021-10-23] MEDS: Furosemide 40 MG Tablet PO (08:53)
[2021-10-23] MEDS: Isosorbide Mononitrate 30 MG Tablet PO (08:53)
[2021-10-23] MEDS: Metoprolol Tartrate 25 MG Tablet 12.5 MG PO (09:03)
--- NOTE | 2021-10-23 10:46 | PCM.DC ---
Discharge Instructions Diet Discharge Diet: Low fat / Low cholesterol Activity Discharge Activity: Return to Normal Activity Dressing / Incision Call your doctor if you observe: Shortness of breath, Dizziness, Chest pain and - (recurrent nose bleed/coughing up blood) Follow Up Care Test Results: Test results from this visit will be discussed in further detail at your follow-up appointment, if applicable. Discharge Plan Admission Admit Date/Time: 10/22/21 11:17 Primary Reason for Your Visit: blood loss anemia Attending Provider: Jerad Nichole Primary Care Provider: Guillermo Pritchard Instructions Additional Instructions / Restrictions: If recurrent nosebleed, will need ENT referral/follow-up. Repeat INR in two days. Hold Coumadin until repeat INR. Cardiology to follow INR lab. Discharge Orders/Prescriptions Prescriptions: Continued isosorbide mononitrate 30 mg tablet extended release 24 hr 30 mg PO QAM RF: 0 metoprolol tartrate 25 mg tablet 12.5 mg PO BID RF: 0 nitroglycerin 0.4 mg tablet, sublingual 0.4 mg SUBLINGUAL Q5M PRN (Reason: Chest Pain) Qty: 30 RF: 0 rosuvastatin 40 MG tablet 40 mg PO QHS RF: 0 pantoprazole 40 mg tablet,delayed release (DR/EC) 40 mg PO BID RF: 0 ferrous sulfate 325 MG tablet 325 mg PO BIDCM RF: 0 cholecalciferol (vitamin D3) 1,000 UNIT tablet 2,000 unit PO DAILY RF: 0 albuterol sulfate 90 MCG aerosol powdr breath activated 1 puff INHALATION Q4H PRN PRN (Reason: Wheezing) RF: 0 aspirin 81 MG tablet 81 mg PO DAILY@0800 RF: 0 folic acid 1 MG tablet 1 mg PO QHS RF: 0 ipratropium-albuterol 3 ML solution for nebulization 3 ml INHALATION Q4H PRN PRN (Reason: sob/wheezing) Qty: 30 RF: 0 zolpidem 10 MG tablet 10 mg PO QHS RF: 0 pregabalin 75 MG capsule 75 mg PO TID RF: 0 Stiolto Respimat 2.5-2.5 mcg/actuation Mist 1 puff INHALATION DAILY RF: 0 furosemide 40 MG tablet 40 mg PO DAILY RF: 0 buprenorphine 10 mcg/hour patch weekly 10 mcg transdermal QWEEK RF: 0 Held warfarin 7.5 mg tablet 7.5 mg PO MOWEFR RF: 0 Hold Instructions: Resume on 10/26/21. Hold until repeat INR warfarin 5 mg tablet 5 mg PO DAILY Qty: 90 RF: 3 Hold Instructions: Resume on 10/26/21. Hold until repeat INR Discontinued fluconazole 100 mg Tablet 100 mg PO DAILY 12 Days Qty: 12 RF: 0 prednisone 10 mg tablet 10 mg PO DAILY Qty: 10 RF: 0 Referrals / Follow Up: Guillermo Pritchard MD [Primary Care Provider] - 11/02/21 11:20 am Laron Clay NP, LENS GENERATOR-C [Nurse Practitioner] - 11/25/21 1:00 pm (Needs INR/Coumadin follow up) Disposition Disposition (needs filled in before D/C Order can be placed): Home, Self Care
--- NOTE | 2021-10-23 11:07 | DS.PCM_ITS ---
Documented by User: Roopa Benavidez NP, [employer]OP MANAGER-C 10/23/21 11:19 Providers Date of Admission: 10/22/21 Date of Discharge: 10/23/21 Primary Care Physician: Dr. Guillermo Pritchard MD Consultations 10/22/21 15:15 Consult: Gastroenterology Routine Consulting Provider: [facility] Reason for Consult: hematemesis EMERGENT Consult: No MD Notified: Yes Date Notified: 10/22/21 Time Notified: 11:22 Method of Notification: Verbal Reason For Visit: HEMATEMESIS, ANEMIA Diagnosis Discharge Diagnosis (1) Hematemesis: Status: Acute Code(s): K92.0 - Hematemesis Medications at Discharge Home Medications rosuvastatin 40 mg PO QHS 07/15/13 ferrous sulfate 325 mg PO BIDCM 09/13/15 albuterol sulfate 1 puff INHALATION Q4H PRN PRN 09/25/15 cholecalciferol (vitamin D3) 2,000 unit PO DAILY 09/25/15 aspirin 81 mg PO DAILY@0800 06/24/16 folic acid 1 mg PO QHS 06/24/16 ipratropium-albuterol 3 ml INHALATION Q4H PRN PRN #30 ampul.neb 11/02/16 isosorbide mononitrate 30 mg tablet,extended release 24 hr 30 mg PO QAM 11/21/17 pantoprazole 40 mg tablet,delayed release 40 mg PO BID tab 01/02/18 warfarin 7.5 mg tablet 7.5 mg PO MOWEFR tab 01/02/18 zolpidem 10 mg PO QHS 05/26/18 pregabalin 75 mg PO TID 07/28/18 metoprolol tartrate 25 mg tablet 12.5 mg PO BID tab 11/26/19 nitroglycerin 0.4 mg sublingual tablet 0.4 mg SUBLINGUAL Q5M PRN #30 tab 05/25/21 Stiolto Respimat 1 puff INHALATION DAILY 06/18/21 furosemide 40 mg PO DAILY 06/21/21 buprenorphine 10 mcg TRANSDERMAL QWEEK 08/16/21 warfarin 5 mg tablet 5 mg PO DAILY #90 tab 08/20/21 Hospital Course Operations None Procedures EGD Summary of Care Provided Hospital Course: Patient is an 81 year old male admitted 10/22/21 due to coughing up blood. 1. Acute blood loss anemia secondary to hemorrhage from posterior nosebleed, complicated by chronic warfarin use on chronic anemia/iron deficiency anemia/chronic thrombocytopenia-history of GI bleed. INR supratherapeutic. Patient underwent EGD which demonstrated red blood at the cricopharyngeus, blood coming from oropharynx. Old blood found in the gastric body. No active bleeding in the stomach or esophagus. Coumadin held during admission. INR at discharge 4.1. Patient will hold Coumadin 10/23/21. Discussed with cardiology office and they will follow patient closely for Coumadin dosing adjustment and repeat INR. 2. Supratherapeutic INR-follow INR as noted above. Cardiology to adjust dosing. 3. Recent diagnosis esophageal candidiasis with Schatzki ring-Schatzki ring dilated 08/19/21. Completed nystatin and Diflucan. Continue PPI. 4. Chronic heart failure with reduced ejection fraction/ischemic cardiomyopathy echocardiogram September 2020 demonstrated an EF of 45%. Continue medical management. 5. Chronic kidney disease stage IIIa- at baseline. 6. Chronic COPD-as needed albuterol aerosols. 7. Persistent atrial fibrillation- On metoprolol, Coumadin. 8. CAD with history of CABG-continue aspirin, isosorbide, metoprolol, statin. 9. 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 10. Hypertension-stable, continue isosorbide, metoprolol. 11. Hyperlipidemia-continue statin. 12. Tobacco dependence-encouraged cessation. 13. GERD-continue PPI. Physical Exam Const alert, oriented x3 and no apparent distress Orientation / Consciousness: awake, oriented to person, oriented to place and oriented to time HEENT normocephalic and moist oral mucous membranes Eyes PERRL, EOMs intact bilaterally and conjunctivae normal Neck no lymphadenopathy Resp normal respiratory effort and clear to auscultation bilaterally Cardio regular rate, regular rhythm and no murmurs Peripheral Pulses: pulses 2+ throughout GI normal to inspection, nondistended, normoactive bowel sounds, non-tender and non-distended Extremity normal to inspection Skin no rashes or lesions noted Lesions: no lesions Rashes: no rashes Trauma: no lacerations or abrasions Neuro CN's II-XII intact bilaterally, no focal motor deficits, no sensory deficits noted and deep tendon reflexes 2+ bilaterally Psych mental status grossly normal and affect normal Patient seen and examined prior to discharge. Physical assessment as noted above. Patient is stable for discharge with follow up recommendations as noted above. This patient was seen by JAMES Luciano under the supervision of Dr. Nichole. Time spent examining patient, reviewing data and subsequent management of care: 16 Minutes Weight / BMI Weight Weight: 170 lb 8 oz Body Mass Index (BMI) 24.4 ABG / Lab / Microbiology Data Result Diagrams: 10/23/21 04:54 10/22/21 10:04 Laboratory: Laboratory Results - last 24 hr 10/22/21 10:04: Blood Type O POSITIVE, Antibody Screen NEGATIVE 10/22/21 10:04: Crossmatch See Detail 10/22/21 12:40: Hgb 7.9 L, Hct 27.1 L 10/22/21 12:40: Hgb Cancelled 10/22/21 15:20: Hgb 7.7 L, Hct 25.9 L 10/22/21 19:26: Hgb 7.8 L, Hct 26.2 L 10/22/21 19:26: Iron 37 L, TIBC 304, Iron Saturation 12.2 L 10/22/21 19:26: Vitamin B12 273 10/22/21 19:26: Magnesium 2.1 10/23/21 04:54: Hgb 9.9 L, Hct 32.0 L 10/23/21 04:54: PT 38.9 H, INR 4.1 H* Microbiology: Microbiology 10/22/21 11:36 Nasal Secretion SARS-CoV-2 Antigen (Rapid) - Final D/C Instructions Discharge Diet: Low fat / Low cholesterol Call your doctor if you observe: Shortness of breath, Dizziness, Chest pain and - (recurrent nose bleed/coughing up blood) Meaningful Use Info Meaningful Use Diagnoses (Choose all that apply): None applicable Discharge Plan Admission Admit Date/Time: 10/22/21 11:17 Primary Reason for Your Visit: blood loss anemia Attending Provider: Jerad Nichole Primary Care Provider: Guillermo Pritchard Instructions Additional Instructions / Restrictions: If recurrent nosebleed, will need ENT referral/follow-up. Repeat INR in two days. Hold Coumadin until repeat INR. Cardiology to follow INR lab. Discharge Orders/Prescriptions Prescriptions: Continued isosorbide mononitrate 30 mg tablet extended release 24 hr 30 mg PO QAM RF: 0 metoprolol tartrate 25 mg tablet 12.5 mg PO BID RF: 0 nitroglycerin 0.4 mg tablet, sublingual 0.4 mg SUBLINGUAL Q5M PRN (Reason: Chest Pain) Qty: 30 RF: 0 rosuvastatin 40 MG tablet 40 mg PO QHS RF: 0 pantoprazole 40 mg tablet,delayed release (DR/EC) 40 mg PO BID RF: 0 ferrous sulfate 325 MG tablet 325 mg PO BIDCM RF: 0 cholecalciferol (vitamin D3) 1,000 UNIT tablet 2,000 unit PO DAILY RF: 0 albuterol sulfate 90 MCG aerosol powdr breath activated 1 puff INHALATION Q4H PRN PRN (Reason: Wheezing) RF: 0 aspirin 81 MG tablet 81 mg PO DAILY@0800 RF: 0 folic acid 1 MG tablet 1 mg PO QHS RF: 0 ipratropium-albuterol 3 ML solution for nebulization 3 ml INHALATION Q4H PRN PRN (Reason: sob/wheezing) Qty: 30 RF: 0 zolpidem 10 MG tablet 10 mg PO QHS RF: 0 pregabalin 75 MG capsule 75 mg PO TID RF: 0 Stiolto Respimat 2.5-2.5 mcg/actuation Mist 1 puff INHALATION DAILY RF: 0 furosemide 40 MG tablet 40 mg PO DAILY RF: 0 buprenorphine 10 mcg/hour patch weekly 10 mcg transdermal QWEEK RF: 0 Held warfarin 7.5 mg tablet 7.5 mg PO MOWEFR RF: 0 Hold Instructions: Resume on 08/22/21. warfarin 5 mg tablet 5 mg PO DAILY Qty: 90 RF: 3 Hold Instructions: Resume on 10/26/21. Hold until repeat INR Discontinued fluconazole 100 mg Tablet 100 mg PO DAILY 12 Days Qty: 12 RF: 0 prednisone 10 mg tablet 10 mg PO DAILY Qty: 10 RF: 0 Referrals / Follow Up: Guillermo Pritchard MD [Primary Care Provider] - 11/02/21 11:20 am Laron Clay NP, [employer] MANAGER-C [Nurse Practitioner] - 11/25/21 1:00 pm (Needs INR/Coumadin follow up) Disposition Disposition (needs filled in before D/C Order can be placed): Home, Self Care Documented by User: Dr. Jerad Nichole DO 10/23/21 12:16 Providers Date of Admission: 10/22/21 Reason For Visit: HEMATEMESIS, ANEMIA Medications at Discharge Home Medications rosuvastatin 40 mg PO QHS 07/15/13 ferrous sulfate 325 mg PO BIDCM 09/13/15 albuterol sulfate 1 puff INHALATION Q4H PRN PRN 09/25/15 cholecalciferol (vitamin D3) 2,000 unit PO DAILY 09/25/15 aspirin 81 mg PO DAILY@0800 06/24/16 folic acid 1 mg PO QHS 06/24/16 ipratropium-albuterol 3 ml INHALATION Q4H PRN PRN #30 ampul.neb 11/02/16 isosorbide mononitrate 30 mg tablet,extended release 24 hr 30 mg PO QAM 11/21/17 pantoprazole 40 mg tablet,delayed release 40 mg PO BID tab 01/02/18 warfarin 7.5 mg tablet 7.5 mg PO MOWEFR tab 01/02/18 zolpidem 10 mg PO QHS 05/26/18 pregabalin 75 mg PO TID 07/28/18 metoprolol tartrate 25 mg tablet 12.5 mg PO BID tab 11/26/19 nitroglycerin 0.4 mg sublingual tablet 0.4 mg SUBLINGUAL Q5M PRN #30 tab 05/25/21 Stiolto Respimat 1 puff INHALATION DAILY 06/18/21 furosemide 40 mg PO DAILY 06/21/21 buprenorphine 10 mcg TRANSDERMAL QWEEK 08/16/21 warfarin 5 mg tablet 5 mg PO DAILY #90 tab 08/20/21 ABG / Lab / Microbiology Data Result Diagrams: 10/23/21 04:54 10/22/21 10:04 Discharge Plan Admission Admit Date/Time: 10/22/21 11:17 Primary Reason for Your Visit: blood loss anemia Attending Provider: Jerad Nichole Primary Care Provider: Guillermo Pritchard Instructions Additional Instructions / Restrictions: If recurrent nosebleed, will need ENT referral/follow-up. Repeat INR in two days. Hold Coumadin until repeat INR. Cardiology to follow INR lab. Discharge Orders/Prescriptions Prescriptions: Continued isosorbide mononitrate 30 mg tablet extended release 24 hr 30 mg PO QAM RF: 0 metoprolol tartrate 25 mg tablet 12.5 mg PO BID RF: 0 nitroglycerin 0.4 mg tablet, sublingual 0.4 mg SUBLINGUAL Q5M PRN (Reason: Chest Pain) Qty: 30 RF: 0 rosuvastatin 40 MG tablet 40 mg PO QHS RF: 0 pantoprazole 40 mg tablet,delayed release (DR/EC) 40 mg PO BID RF: 0 ferrous sulfate 325 MG tablet 325 mg PO BIDCM RF: 0 cholecalciferol (vitamin D3) 1,000 UNIT tablet 2,000 unit PO DAILY RF: 0 albuterol sulfate 90 MCG aerosol powdr breath activated 1 puff INHALATION Q4H PRN PRN (Reason: Wheezing) RF: 0 aspirin 81 MG tablet 81 mg PO DAILY@0800 RF: 0 folic acid 1 MG tablet 1 mg PO QHS RF: 0 ipratropium-albuterol 3 ML solution for nebulization 3 ml INHALATION Q4H PRN PRN (Reason: sob/wheezing) Qty: 30 RF: 0 zolpidem 10 MG tablet 10 mg PO QHS RF: 0 pregabalin 75 MG capsule 75 mg PO TID RF: 0 Stiolto Respimat 2.5-2.5 mcg/actuation Mist 1 puff INHALATION DAILY RF: 0 furosemide 40 MG tablet 40 mg PO DAILY RF: 0 buprenorphine 10 mcg/hour patch weekly 10 mcg transdermal QWEEK RF: 0 Held warfarin 7.5 mg tablet 7.5 mg PO MOWEFR RF: 0 Hold Instructions: Resume on 08/22/21. warfarin 5 mg tablet 5 mg PO DAILY Qty: 90 RF: 3 Hold Instructions: Resume on 10/26/21. Hold until repeat INR Discontinued fluconazole 100 mg Tablet 100 mg PO DAILY 12 Days Qty: 12 RF: 0 prednisone 10 mg tablet 10 mg PO DAILY Qty: 10 RF: 0 Referrals / Follow Up: Guillermo Pritchard MD [Primary Care Provider] - 11/02/21 11:20 am Laron Clay NP, [employer] MANAGER-C [Nurse Practitioner] - 11/25/21 1:00 pm (Needs INR/Coumadin follow up) Disposition Disposition (needs filled in before D/C Order can be placed): Home, Self Care Charges/Coding Addendum Addendum: Patient was seen and examined today independently of Roopa Benavidez, he has had no more episodes of spitting up blood or nosebleed. I elected to transfuse the patient yesterday due to his multiple medical problems, his hemoglobin today is 9.9. INR still elevated at 4.1. Patient's iron level which I obtained this morning was low at 37, he tells me he takes oral iron at home. On examination he appeared in good health and spirits. Vital signs as documented. Skin warm and dry and without overt rashes. Neck without JVD, neck was supple, trachea midline, thyroid was normal. Lungs clear bilaterally, normal air movement was noted. Heart exam notable for regular rhythm, normal sounds and absence of murmurs, rubs or gallops. Abdomen unremarkable and without evidence of organomegaly, masses, or abdominal aortic enlargement. Bowel sounds are present, abdomen is not distended. Extremities nonedematous, no cyanosis was noted, no clubbing was noted. Neuro: Cranial nerves II through XII are grossly intact, no focal motor deficits were noted, sensation to light touch and pinprick intact, motor exam 5/5 throughout. Psych: Patient is alert and oriented x3, he does not appear anxious or depressed, he does not appear agitated. #1 acute hemorrhage from posterior nasal bleed exacerbated by chronic use of warfarin #2 ischemic cardiomyopathy #3 atherosclerotic heart disease #4 supratherapeutic INR #5 mechanical aortic valve #6 paroxysmal atrial fibrillation #7 chronic use of anticoagulants secondary to mechanical aortic I have reviewed Roopa Benavidez's discharge summary including her medical assessment and plan of care and with the above additions endorse it. Total clinical time spent by myself addressing the patient's needs, reviewing the patient's medical data, and collaborating with the patient's care team: 20 m inutes Additional note: Patient's medical condition improved faster than estimated and he was stable for discharge today. Visit Charges Inpatient E&M: 11471 Disch Hosp
--- NOTE | 2021-10-23 11:10 | CASEMGMT ---
RN CM [employer] ATTENDANT CM to room to meet with patient for initial transition planning/care coordination assessment. SURY MUNOZ introduced self and role at [facility]. Pt voices understanding and consents to assessment at this time. Pt resting in bed in no distress at this time. Pt is A/O at this time and answers all questions appropriately. Care providers, pharmacy, and demographics verified/updated at this time. PCP: Dr Pritchard Specialists: [facility]-cardiology--they manage INR, Dr Villarreal-ortho Preferred Pharmacy: [facility], for [facility] fill. [facility]s [facility] Insurance: [employer] Prescription Benefit: Yes Living Will/HPOA: Has both LW and HPOA, who is his daughter, Emily Montejo. Both are on file @ [facility]. LNOK: Dtr, Emily/REYNALDO Living Arrangements: Lives alone in one-story home w/1 step to enter at one entrance and ramp @ other entrance. Independent w/ADL's and IADL's. Emily helps w/some meals and sets up weekly pill containers. Transportation: Pt states drives self and states no transportation concerns at this time. Emily will take pt home @ d/c. DME: States has the following DME: has rollator available, but does not use. Has cane, shower chair, handrails in shower, pulse ox. Has O2 through [employer], 2 l/m w/exertion. Pt states has not been needing to use it and does not need it to go home on. Pt states no need for further DME at this time. HHC/SNF: No hx of either. Denies need for HHC and no needs identified. Pt wishes to return home and states has no concerns with going home at time of discharge. CM to follow for any discharge planning/needs. Pt voices no concerns/needs at this time. Advised pt to ask for CM if any questions/concerns/needs arise. Voices understanding. PLAN: Home w/family support and discharge plans in place. Roxana RASHID RN, CM
== END 2021-10-23 12:13 | disposition home or self-care (01) | DRG 812 ==
LOC: ED 11:29 → PCU 11:47
PROVIDERS: Family Medicine; Admitting Provider Internal Medicine; Emergency Provider Emergency Medicine; PCP Family Medicine; Referring Provider Internal Medicine Gastroenterology; Visit Provider Internal Medicine
PROC: 0DJ08ZZ Inspection of Upper Intestinal Tract, Via Natural or Artificial Opening Endoscopic (ICD-10-PCS; CPT 43235; principal; 2021-10-22 12:55)
DX: D62 Acute posthemorrhagic anemia (principal); D68.32 Hemorrhagic disorder due to extrinsic circulating anticoagulants; I13.0 Hypertensive heart and chronic kidney disease with heart failure and stage 1 through stage 4 chronic kidney disease, or unspecified chronic kidney disease; I50.22 Chronic systolic (congestive) heart failure; I48.19 Other persistent atrial fibrillation; J44.9 Chronic obstructive pulmonary disease, unspecified; N18.31 Chronic kidney disease, stage 3a; D50.9 Iron deficiency anemia, unspecified; F17.210 Nicotine dependence, cigarettes, uncomplicated; E78.00 Pure hypercholesterolemia, unspecified; I25.5 Ischemic cardiomyopathy; E78.5 Hyperlipidemia, unspecified; K21.9 Gastro-esophageal reflux disease without esophagitis; I25.2 Old myocardial infarction; I25.10 Atherosclerotic heart disease of native coronary artery without angina pectoris; R04.0 Epistaxis; Z95.1 Presence of aortocoronary bypass graft; G89.4 Chronic pain syndrome; Z20.822 Contact with and (suspected) exposure to COVID-19; Z79.01 Long term (current) use of anticoagulants; Z79.82 Long term (current) use of aspirin; Z79.899 Other long term (current) drug therapy; Z86.73 Personal history of transient ischemic attack (TIA), and cerebral infarction without residual deficits; Z95.2 Presence of prosthetic heart valve; Z95.5 Presence of coronary angioplasty implant and graft
CPT/HCPCS: 36415; 71045; 80048; 82607; 83540; 83550; 83735; 85014; 85018; 85025; 85610; 86850; 86900; 86901; 86920; 86922; 87811; 93005; 94640; 99285; 99406; J7030; J7050; J7120; P9016; A4216; J2405; J2916

== ENCOUNTER 2021-10-26 09:49 | Outpatient (CLI) | payer MEDICARE, SELFPAY ==
[2021-10-26 11:40] LABS: INR Fingerstick 1.4; Prothrombin Time Fingerstick 16.6 SEC (11.7-14.9)
== END 2021-10-26 23:59 | disposition home or self-care (01) ==
LOC: LAB 09:50
PROVIDERS: PCP Family Medicine; Visit Provider Internal Medicine Cardiovascular Disease
DX: I48.0 Paroxysmal atrial fibrillation (principal); Z79.01 Long term (current) use of anticoagulants; Z95.2 Presence of prosthetic heart valve
CPT/HCPCS: 36416; 85610

== ENCOUNTER 2021-10-29 09:43 | Outpatient (CLI) | payer MEDICARE, SELFPAY ==
[2021-10-29 12:31] LABS: INR Fingerstick 1.2; Prothrombin Time Fingerstick 15.3 SEC (11.7-14.9)
== END 2021-10-29 23:59 | disposition home or self-care (01) ==
LOC: LAB 09:43
PROVIDERS: PCP Family Medicine; Visit Provider Internal Medicine Cardiovascular Disease
DX: I48.0 Paroxysmal atrial fibrillation (principal); Z79.01 Long term (current) use of anticoagulants; Z95.2 Presence of prosthetic heart valve
CPT/HCPCS: 36416; 85610

== ENCOUNTER 2021-11-03 09:34 | Outpatient (CLI) | payer MEDICARE, SELFPAY ==
[2021-11-03 11:26] LABS: INR Fingerstick 1.7; Prothrombin Time Fingerstick 20.2 SEC (11.7-14.9)
== END 2021-11-03 23:59 | disposition home or self-care (01) ==
LOC: LAB 09:35
PROVIDERS: PCP Family Medicine; Visit Provider Internal Medicine Cardiovascular Disease
DX: I48.0 Paroxysmal atrial fibrillation (principal); Z79.01 Long term (current) use of anticoagulants; Z95.2 Presence of prosthetic heart valve
CPT/HCPCS: 36416; 85610

== ENCOUNTER → 2021-11-05 | Outpatient (CLI) | payer MEDICARE, SELFPAY | END | disposition home or self-care (01) | LOC: OLS.DEFALT 09:27 → LAB 09:39 | PROVIDERS: PCP Family Medicine; Referring Provider Family Medicine; Visit Provider Family Medicine | DX: Z00.00 Encounter for general adult medical examination without abnormal findings (principal) ==

== ENCOUNTER 2021-11-06 09:40 | Outpatient (RCR) | payer MEDICARE, SELFPAY ==
[2021-11-06 09:50] LABS: INR Fingerstick 2.3; Prothrombin Time Fingerstick 26.4 SEC (11.7-14.9)
== END 2021-11-06 18:00 | disposition home or self-care (01) ==
LOC: LAB 09:40
PROVIDERS: PCP Family Medicine; Referring Provider Internal Medicine Cardiovascular Disease; Visit Provider Internal Medicine Cardiovascular Disease
DX: I48.0 Paroxysmal atrial fibrillation (principal); Z79.01 Long term (current) use of anticoagulants
CPT/HCPCS: 36416; 85610

== ENCOUNTER → 2021-11-13 | Outpatient (CLI) | payer MEDICARE, SELFPAY ==
[2021-11-13 10:20] LABS: Absolute Lymphocyte Count 0.39 X10^3/uL (0.83-4.51); Absolute Neutrophil Count 4.3 X10^3/uL (2.0-7.7); Basophil# 0.02 X10^3/uL; Basophil% 0.4 % (0-1); Eosinophil# 0.01 X10^3/uL; Eosinophils% 0.2 % (0-5); Hematocrit 37.8 % (40-54); Hemoglobin 11.5 g/dL (13.0-16.5); Lymphocyte # 0.39 X10^3/ul (0.83-4.51); Lymphocyte % 7.9 % (19-41); Mean Corp Hgb Conc 30.4 g/dL (32-36); Mean Corpuscular Hgb 30.3 pg (27.0-32.0); Mean Corpuscular Volume 99.7 fL (80-94); Mean Platelet Vol. 11.7 fl (6.2-12.0); Monocyte# 0.21 X10^3/uL; Monocyte% 4.3 % (0-10); NRBC Flagged by Analyzer 0 % (0-5); Neutrophil # 4.27 X10^3/uL (2.7-7.7); Neutrophil % 86.8 % (47-70); POSITIVE DIFFERENTIAL YES; Platelet Count 136 K/mm3 (150-450); RBC Distribution Width SD 62.5 fl (35.1-43.9); Red Blood Count 3.79 M/mm3 (4.6-6.2); White Blood Count 4.9 K/mm3 (4.4-11.0)
[2021-11-13 10:23] LABS: Differential Indicated SCAN CRITERIA MET
[2021-11-13 10:43] LABS: International Normalized Ratio 3.1
[2021-11-13 11:02] LABS: Platelet Estimate SLT DEC (ADEQ); Red Cell Morphology NORM C+C NORMAL (NORM C&C)
== END | disposition home or self-care (01) ==
LOC: MFPLAB 09:43
PROVIDERS: Internal Medicine Cardiovascular Disease; PCP Family Medicine; Referring Provider Family Medicine; Visit Provider Family Medicine
DX: K92.0 Hematemesis (principal)
CPT/HCPCS: 36415; 85025; 85610

== ENCOUNTER 2021-11-25 13:47 | Outpatient (RCR) | payer MEDICARE, SELFPAY ==
[2021-11-25 14:01] LABS: INR Fingerstick 3.7; Prothrombin Time Fingerstick 40.9 SEC (11.7-14.9)
== END 2021-11-25 18:00 | disposition home or self-care (01) ==
LOC: LAB 13:47
PROVIDERS: PCP Family Medicine; Referring Provider Internal Medicine Cardiovascular Disease; Visit Provider Internal Medicine Cardiovascular Disease
DX: I48.0 Paroxysmal atrial fibrillation (principal); Z79.01 Long term (current) use of anticoagulants
CPT/HCPCS: 36416; 85610

== ENCOUNTER → 2021-12-09 | Outpatient (CLI) | payer MEDICARE, SELFPAY ==
[2021-12-09 11:31] LABS: INR Fingerstick 3.6; Prothrombin Time Fingerstick 40.5 SEC (11.7-14.9)
== END | disposition home or self-care (01) ==
LOC: LAB 08:11
PROVIDERS: PCP Family Medicine; Visit Provider Internal Medicine Cardiovascular Disease
DX: I48.0 Paroxysmal atrial fibrillation (principal); Z79.01 Long term (current) use of anticoagulants; Z95.2 Presence of prosthetic heart valve
CPT/HCPCS: 36416; 85610

== ENCOUNTER → 2021-12-16 | Outpatient (CLI) | payer MEDICARE, SELFPAY ==
[2021-12-16 10:41] LABS: INR Fingerstick 2.9; Prothrombin Time Fingerstick 32.8 SEC (11.7-14.9)
== END | disposition home or self-care (01) ==
LOC: LAB 08:40
PROVIDERS: PCP Family Medicine; Referring Provider Internal Medicine Cardiovascular Disease; Visit Provider Internal Medicine Cardiovascular Disease
DX: I48.0 Paroxysmal atrial fibrillation (principal); Z79.01 Long term (current) use of anticoagulants; Z95.2 Presence of prosthetic heart valve
CPT/HCPCS: 36416; 85610

== ENCOUNTER → 2021-12-28 | Outpatient (CLI) | payer MEDICARE, SELFPAY ==
--- NOTE | 2021-12-28 08:55 | RAD_ITS ---
STUDY: X-RAY - ESOPHAGUS (BARIUM SWALLOW) WITH FLUOROSCOPY REASON FOR EXAM: Male, 81 years old. DYSPHAGIA TECHNIQUE: 34 view(s) of the esophagus were obtained following swallowing of barium. FLUOROSCOPY TIME (if supplied): (1 minute and 16 seconds) minutes/seconds COMPARISON: None. FINDINGS: There is no demonstrated esophageal foreign body. There is tertiary contractions of the esophagus. Circumferential narrowing of the distal esophagus at the level of the gastroesophageal junction. The patient ingested a 12 mm tablet of barium. The tablet is trapped at the level of the stricture of the distal esophagus. Correlation with endoscopy is recommended. There is atherosclerotic calcification of the aortic arch with tortuosity of the descending aorta. Normal visualized pulmonary parenchyma. There are diffuse degenerative changes of the visualized thoracic spine. RAD/Esophagus Dual Contrast IMPRESSION: Diffuse tertiary contractions of the esophagus with circumferential narrowing of the distal esophagus at the level of the gastroesophageal junction with trapping of the ingested 12 mm tablet of barium. Correlation with endoscopy is recommended. Electronically Signed: Tyler Early MD at 14:33 EDT ,
== END | disposition home or self-care (01) ==
PROVIDERS: PCP Family Medicine; Referring Provider Otolaryngology Otolaryngology/Facial Plastic Surgery; Visit Provider Otolaryngology Otolaryngology/Facial Plastic Surgery
DX: R13.10 Dysphagia, unspecified (principal)
CPT/HCPCS: 74221

== ENCOUNTER → 2022-01-07 | Outpatient (CLI) | payer MEDICARE, SELFPAY ==
[2022-01-07 11:11] LABS: INR Fingerstick 4.6; Prothrombin Time Fingerstick 50.1 SEC (11.7-14.9)
[2022-01-07 11:47] LABS: International Normalized Ratio 4.2; Prothrombin Time (Protime)PT. 40.4 SECONDS (11.7-14.9)
== END | disposition home or self-care (01) ==
LOC: LAB 08:23
PROVIDERS: PCP Family Medicine; Referring Provider Internal Medicine Cardiovascular Disease; Visit Provider Internal Medicine Cardiovascular Disease
DX: I48.0 Paroxysmal atrial fibrillation (principal); Z79.01 Long term (current) use of anticoagulants; Z95.2 Presence of prosthetic heart valve
CPT/HCPCS: 36415; 36416; 85610

== ENCOUNTER → 2022-01-14 | Outpatient (CLI) | payer MEDICARE, SELFPAY ==
[2022-01-14 10:17] LABS: Prothrombin Time (Protime)PT. 41.5 SECONDS (11.7-14.9)
[2022-01-14 10:25] LABS: International Normalized Ratio 4.4
[2022-01-14 16:10] LABS: INR Fingerstick 4.4; Prothrombin Time Fingerstick 48.1 SEC (11.7-14.9)
== END | disposition home or self-care (01) ==
LOC: LAB 08:59
PROVIDERS: PCP Family Medicine; Referring Provider Internal Medicine Cardiovascular Disease; Visit Provider Internal Medicine Cardiovascular Disease
DX: I48.0 Paroxysmal atrial fibrillation (principal); Z79.01 Long term (current) use of anticoagulants; Z95.2 Presence of prosthetic heart valve
CPT/HCPCS: 36415; 36416; 85610

== ENCOUNTER → 2022-01-21 | Outpatient (CLI) | payer MEDICARE, SELFPAY ==
[2022-01-21 11:21] LABS: International Normalized Ratio 2.3; Prothrombin Time (Protime)PT. 24.7 SECONDS (11.7-14.9)
[2022-01-21 11:50] LABS: Anion Gap 3 (5-15); BUN 23 mg/dL (7-18); BUN/Creat Ratio 13.9 RATIO (10-20); Calcium,Total 8.4 mg/dL (8.5-10.1); Chloride 111 mmol/L (98-107); Creatinine, Serum 1.65 mg/dL (0.70-1.30); EST Glomerular Filtration Rate 43 mL/min (>60); Est Glom Filt Rate - Afr Amer 51 mL/min (>60); Glucose 105 mg/dL (74-106); Potassium 3.9 mmol/L (3.5-5.1); Sodium Level 143 mmol/L (136-145)
== END | disposition home or self-care (01) ==
PROVIDERS: PCP Family Medicine; Referring Provider Internal Medicine Cardiovascular Disease; Visit Provider Internal Medicine Cardiovascular Disease
DX: I48.0 Paroxysmal atrial fibrillation (principal); I50.22 Chronic systolic (congestive) heart failure; Z95.2 Presence of prosthetic heart valve; Z79.01 Long term (current) use of anticoagulants
CPT/HCPCS: 36415; 80048; 85610

== ENCOUNTER → 2022-01-28 | Outpatient (CLI) | payer MEDICARE, SELFPAY ==
[2022-01-28 10:30] LABS: INR Fingerstick 3.5
== END | disposition home or self-care (01) ==
LOC: LAB 08:59
PROVIDERS: PCP Family Medicine; Referring Provider Internal Medicine Cardiovascular Disease; Visit Provider Internal Medicine Cardiovascular Disease
DX: I48.0 Paroxysmal atrial fibrillation (principal); Z79.01 Long term (current) use of anticoagulants; Z95.2 Presence of prosthetic heart valve
CPT/HCPCS: 36416; 85610

== ENCOUNTER → 2022-02-11 | Outpatient (CLI) | payer MEDICARE, SELFPAY ==
[2022-02-11 10:56] LABS: INR Fingerstick 3.3; Prothrombin Time Fingerstick 36.9 SEC (11.7-14.9)
== END | disposition home or self-care (01) ==
LOC: LAB 08:35
PROVIDERS: PCP Family Medicine; Referring Provider Internal Medicine Cardiovascular Disease; Visit Provider Internal Medicine Cardiovascular Disease
DX: I48.0 Paroxysmal atrial fibrillation (principal); Z95.2 Presence of prosthetic heart valve; Z79.01 Long term (current) use of anticoagulants
CPT/HCPCS: 36416; 85610

== ENCOUNTER → 2022-03-03 | Outpatient (CLI) | payer MEDICARE, SELFPAY ==
[2022-03-03 10:31] LABS: INR Fingerstick 3.2
== END | disposition home or self-care (01) ==
LOC: LAB 08:25
PROVIDERS: PCP Family Medicine; Referring Provider Internal Medicine Cardiovascular Disease; Visit Provider Internal Medicine Cardiovascular Disease
DX: I48.0 Paroxysmal atrial fibrillation (principal); Z79.01 Long term (current) use of anticoagulants; Z95.2 Presence of prosthetic heart valve
CPT/HCPCS: 36416; 85610

== ENCOUNTER 2022-03-11 19:20 | Emergency (ER) | payer MEDICARE, SELFPAY ==
[2022-03-11 19:20] VITALS: BP 108/65; PULSE 83; RESP 14; TEMP 36.6; O2SAT 96; BMI 22.9
--- NOTE | 2022-03-11 19:51 | ED.VIS.FALL ---
HPI HPI - Fall History of Present Illness Chief Complaint: Fall Informant: patient Narrative Narrative: Presents fall outside prior to arrival. EMS brought patient in. Was walking his dog when he got pulled on the leash. Fell onto flexed right knee. Please cause tears to the forearm and finger. No head injuries. He is on warfarin for history of mechanical valve repair. Last INR check last week states it was 3.2. No chest or back pain. Typically ambulates with a cane if needed. Tetanus was 3 years ago. Tetanus Immunization: <5 years [facility] Medical History Ambulates with cane Anemia Anemia due to chronic blood loss Arthritis Atherosclerotic heart disease of [place] coronary artery without angina pectoris Back pain Back pain due to injury Cardiology follow-up encounter CHF (congestive heart failure) Chronic cough Chronic pain syndrome Chronic systolic (congestive) heart failure COPD (chronic obstructive pulmonary disease) COPD (chronic obstructive pulmonary disease) Difficulty swallowing Essential hypertension Gastric reflux Heart attack High cholesterol History of atrial fibrillation History of CHF (congestive heart failure) History of echocardiogram History of edema History of GI bleed History of heart attack History of pain when walking History of stress test Hx of fracture of ankle Hx of fracture of ankle Hypertension Injury of back Injury of head and neck Irregular heartbeat 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 Paroxysmal atrial fibrillation Pure hypercholesterolemia Restless legs Secondary pulmonary arterial hypertension Shortness of breath on exertion Smoker Spinal stenosis of lumbar region Stroke TIA (transient ischemic attack) Tobacco use disorder Uncontrolled pain Wears dentures Wears glasses Home Medications rosuvastatin 40 mg tablet 40 mg PO QHS cholesterol 07/15/13 [History Last Taken 08/15/21 22:00] ferrous sulfate 325 mg (65 mg iron) tablet 325 mg PO BIDCM IRON SUPPLEMENT 09/13/15 [History Last Taken 08/14/21 18:00] albuterol sulfate 90 mcg/actuation breath activated powder inhaler 1 puff inhalation Q4H PRN PRN Wheezing 09/25/15 [History Last Taken 06/04/18] cholecalciferol (vitamin D3) 25 mcg (1,000 unit) tablet 2,000 unit PO DAILY SUPPLEMENT 09/25/15 [History Last Taken 08/15/21 08:00] aspirin 81 mg tablet,delayed release 81 mg PO DAILY@[address] [facility] 06/24/16 [History Last Taken 08/15/21 08:00] folic acid 1 mg tablet 1 mg PO QHS SUPPLEMENT 06/24/16 [History Last Taken 08/15/21 22:00] isosorbide mononitrate 30 mg tablet,extended release 24 hr 30 mg PO QAM BP 11/21/17 [History Last Taken 08/15/21 08:00] pantoprazole 40 mg tablet,delayed release 40 mg PO BID ACID REFLUX 01/02/18 [History Last Taken 08/15/21 22:00] zolpidem 10 mg tablet 10 mg PO QHS SLEEP 05/26/18 [History Last Taken 08/15/21 22:00] pregabalin 75 mg capsule 75 mg PO TID pain 07/28/18 [History Last Taken 08/15/21 22:00] metoprolol tartrate 25 mg tablet 12.5 mg PO BID Dose increased for Rapid Heart Rate 11/26/19 [History Last Taken 08/15/21 22:00] nitroglycerin 0.4 mg sublingual tablet 0.4 mg sublingual Q5M PRN Chest Pain #30 tabs 05/25/21 [Rx Last Taken Unknown] tiotropium 2.5 mcg-olodaterol 2.5 mcg/actuation mist for inhalation ([employer] Respimat) 1 puff inhalation DAILY Check with primary doctor 06/18/21 [History Last Taken 08/15/21 08:00] furosemide 40 mg tablet 40 mg PO DAILY WATER PILL 06/21/21 [History Last Taken 08/15/21 08:00] buprenorphine 10 mcg/hour weekly transdermal patch 10 mcg transdermal QWEEK pain 08/16/21 [History Last Taken 08/09/21 08:00] ipratropium 0.5 mg-albuterol 3 mg (2.5 mg base)/3 mL nebulization soln 3 ml inhalation Q6H PRN sob/wheezing 11/25/21 [History Last Taken Unknown] warfarin 5 mg tablet 5 mg PO .COMPLEX #45 tabs 01/27/22 [Rx Last Taken Unknown] warfarin 7.5 mg tablet 7.5 mg PO .COMPLEX #90 tabs 01/27/22 [Rx Last Taken Unknown] Allergy/AdvReac Type Severity Reaction Status Date / Time No Known Allergies Allergy Verified 03/11/22 19:23 Family History Son , age 44 from [place] CAD (coronary artery disease) Myocardial infarction Sudden cardiac Brother CAD (coronary artery disease) Pt states all nine of his siblings have heart problems Sister CAD (coronary artery disease) Patient states all nine of his siblings have heart problems Surgical History H/O cardiac catheterization History of coronary artery stent placement (~06/28/11) History of esophagogastroduodenoscopy (EGD) (~10/2021) History of left heart catheterization History of lumbar fusion History of mechanical aortic valve replacement (~03/27/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) Status post cardiac surgery Social History Smoking Status: Current every day smoker tobacco type: cigarettes alcohol intake: never substance use type: does not use caffeine: No ROS ROS ED Constitutional Constitutional ED: Denies chills, fever(s) or sweats Eyes Eyes: Denies change in vision ENT ENT ED: Denies dysphagia or sore throat Cardiovascular Cardiovascular: Denies chest pain, leg edema, palpitations or racing heartbeat Respiratory/Chest Respiratory/Chest: Denies cough, dyspnea or dyspnea on exertion Gastrointestinal Gastrointestinal: Denies abdominal pain, diarrhea, nausea or vomiting Genitourinary Genitourinary ED: Denies dysuria, hematuria or urinary frequency Musculoskeletal Musculoskeletal: Reports extremity pain and other Details: Right knee pain ; Denies back pain or neck pain Integumentary Reports wounds and other Details: Skin tears right forearm right middle finger ; Denies rash Neurologic Neurologic: Denies headache(s), paresthesias or weakness EXAM Physical Exam Const Vital Signs: 03/11/22 19:20 03/11/22 19:43 03/11/22 22:03 Temperature 97.9 F Temperature Source Temporal Pulse Rate 83 86 Respiratory Rate 14 14 Respiratory Effort Normal Blood Pressure 108/65 92/56 L Blood Pressure Mean 79 68 Pulse Ox 96 96 Oxygen Delivery Method Room Air Room Air Positive well nourished and well developed Constitutional Narrative: GCS 15. General Appearance ED: well developed and NAD HEENT Reports moist mucous membranes normocephalic and atraumatic Eyes PERRL, EOMs intact bilaterally and conjunctivae normal General Eye ED: Yes normal appearance of both eyes Neck full ROM, no lymphadenopathy and supple Neck Narrative: No midline tenderness or step-offs. General: Negative for tenderness Chest Wall inspection of chest normal and palpation of chest normal Chest: Negative for tenderness Resp normal respiratory effort and normal air movement Effort and Inspection: symmetric chest movement; Negative for respiratory distress Cardio regular rate, regular rhythm and no murmurs Peripheral Pulses: pulses 2+ throughout GI normal to inspection, nondistended, normoactive bowel sounds and non-tender Palpation: Negative for guarding or rebound tenderness present Back/Spine no CVA tenderness and no thoracic nor lumbar tenderness Back/Spine Narrative: No midline tenderness or step-offs. Extremity Extremity Narrative: Left upper extremity: Full range of motion without tenderness. Pulse intact distally. Right upper extremity: No shoulder or elbow tenderness. There is a skin tear distal dorsal forearm in the right. There is no active bleeding. Ecchymosis noted. No deformities. Right middle finger superficial skin tear of middle phalanx with no active bleeding. No deformities. Nontender. Left lower extremity: Negative logroll. No knee tenderness. Extensor mechanism intact. Pulses intact distally. Right lower extremity: Negative logroll. There is swelling to the patellar mild tenderness. Knee extensor intact. There is abrasions noted. Negative varus and valgus. No ankle tenderness. Neuro vas tact distally. General Extremety ED: Negative for edema or tenderness General Extremity: Negative for edema Neuro oriented x3, CN's II-XII intact bilaterally and no sensory deficits noted Sensorium / Orientation: awake and alert Skin Skin Narrative: See above MDM MDM MDM Narrative Medical decision making narrative: Patient mechanical fall no head injuries. Skin tear right forearm. 2 views right forearm x-ray obtained reviewed by myself and read by radiology shows no fractures. His right knee contusion with swelling. 4 view x-rays right knee reviewed myself and read by radiology degenerative changes without any fractures. He complained of shoulder pain while in x-ray on the right side. 2 view x-ray obtained reviewed by myself and read by radiology degenerative changes however no fracture. Wound care by nursing. He will use Tylenol as needed. INR checked returned 4.6. No active bleeding. He will hold his Coumadin for next 2 days he will call his PCP office tomorrow for discussion to resume. Recheck INR as an outpatient. He is able ambulate with a cane in the department at his baseline. All questions were answered. Lab Data Labs: Laboratory Results - last 24 hr 03/11/22 19:55 PT 43.5 H INR 4.6 H* Radiography Diagnostic Testing: Clinical Impression(s) from Imaging Studies Forearm X-Ray 03/11/22 20:00 IMPRESSION: Normal x-ray examination of the right radius and ulna. Electronically Signed: Garo Ch DO at 20:27 EDT Reading Location ID and State: [employer] / [place] Tel [phone], Service support , Knee X-Ray 03/11/22 20:00 IMPRESSION: Degenerative changes of the right knee without acute fracture or dislocation. Electronically Signed: Garo Ch DO at 20:39 EDT Reading Location ID and State: [employer] / [place] Tel [phone], Service support , Shoulder X-Ray 03/11/22 20:25 IMPRESSION: Able degenerative changes of the right shoulder. There is no acute fracture or dislocation. Electronically Signed: Garo Ch DO at 20:43 EDT Reading Location ID and State: [employer] / [place] Tel [phone], Service support , Discharge Plan Triage Chief Complaint: Fall ED Provider: Ricardo Chan Dx/Rx/DC Orders Clinical Impression: Contusion of knee, right, Skin tear of right forearm without complication, Right shoulder strain, Fall Instructions: ED Contusion, Lower Extremity, ED Skin Avulsion, ED Muscle Strain, Extremity Prescriptions: No Action isosorbide mononitrate 30 mg tablet extended release 24 hr 30 mg PO QAM metoprolol tartrate 25 mg tablet 12.5 mg PO BID nitroglycerin 0.4 mg tablet, sublingual 0.4 mg SUBLINGUAL Q5M PRN (Reason: Chest Pain) Qty: 30 0RF Label Comments: chest pain ipratropium-albuterol 0.5 mg-3 mg(2.5 mg base)/3 mL solution for nebulization 3 ml INHALATION Q6H PRN (Reason: sob/wheezing) Label Comments: breathing rosuvastatin 40 MG tablet 40 mg PO QHS Label Comments: cholesterol pantoprazole 40 mg tablet,delayed release (DR/EC) 40 mg PO BID Label Comments: acid reflux ferrous sulfate 325 MG tablet 325 mg PO BIDCM Label Comments: iron supplement cholecalciferol (vitamin D3) 1,000 UNIT tablet 2,000 unit PO DAILY Label Comments: supplement albuterol sulfate 90 MCG aerosol powdr breath activated 1 puff INHALATION Q4H PRN PRN (Reason: Wheezing) Label Comments: breathing aspirin 81 MG tablet 81 mg PO DAILY@0800 Label Comments: heart health WAS TOLD TO STOP FOR SURGERY folic acid 1 MG tablet 1 mg PO QHS zolpidem 10 MG tablet 10 mg PO QHS pregabalin 75 MG capsule 75 mg PO TID Stiolto Respimat 2.5-2.5 mcg/actuation Mist 1 puff INHALATION DAILY furosemide 40 MG tablet 40 mg PO DAILY buprenorphine 10 mcg/hour patch weekly 10 mcg transdermal QWEEK Label Comments: APPLY 1 (ONE) patch transdermally and wear for 1 (ONE) week warfarin 7.5 mg tablet 7.5 mg PO .COMPLEX Qty: 90 3RF Hold Instructions: Resume on 08/22/21. Protocol: Dose Management Condition: Tuesday Dose/Route: 7.5 mg Instruction: 1 x 7.5 mg tablet Condition: Tuesday Dose/Route: 5 mg Instruction: 1 x 5 mg tablet Condition: Tuesday Dose/Route: 5 mg Instruction: 1 x 5 mg tablet Condition: Tuesday Dose/Route: 5 mg Instruction: 1 x 5 mg tablet Condition: Dose/Route: 5 mg Instruction: 1 x 5 mg tablet Condition: Tuesday Dose/Route: 5 mg Instruction: 1 x 5 mg tablet Condition: Tuesday Dose/Route: 7.5 mg Instruction: 1 x 7.5 mg tablet Protocol Text: Adjustment Start Date: Tuesday03/03/22 INR Value: 3.2 INR Date: 03/03/22 Recheck Date: 03/31/22 Rx Instructions: 7.5 mg PO Daily Tuesday through Tuesday or as directed (takes a 5 mg tablet on Sat and Sun); Dose changes often so give 90 pills warfarin 5 mg tablet 5 mg PO .COMPLEX Qty: 45 3RF Hold Instructions: Resume on 10/26/21. Hold until repeat INR Protocol: Dose Management Condition: Tuesday Dose/Route: 7.5 mg Instruction: 1 x 7.5 mg tablet Condition: Tuesday Dose/Route: 5 mg Instruction: 1 x 5 mg tablet Condition: Tuesday Dose/Route: 5 mg Instruction: 1 x 5 mg tablet Condition: Tuesday Dose/Route: 5 mg Instruction: 1 x 5 mg tablet Condition: Dose/Route: 5 mg Instruction: 1 x 5 mg tablet Condition: Tuesday Dose/Route: 5 mg Instruction: 1 x 5 mg tablet Condition: Tuesday Dose/Route: 7.5 mg Instruction: 1 x 7.5 mg tablet Protocol Text: Adjustment Start Date: Tuesday03/03/22 INR Value: 3.2 INR Date: 03/03/22 Recheck Date: 03/31/22 Rx Instructions: 5 mg PO On Tuesday and Tuesday or as directed (takes a 7.5 mg tablet Tuesday through Tuesday); Dose changes often so give 90 pills Primary Care Provider: Guillermo Pritchard Referrals: Guillermo Pritchard MD [Primary Care Provider] - 1 Week Activity Restrictions/Additional Instructions: INR 4.6. Hold your warfarin for the next 2 days then restart. Call your doctor for follow-up recheck of INR. Disposition Disposition: Home, Self Care Discharge Date/Time: 03/11/22 22:09
--- NOTE | 2022-03-11 20:00 | RAD_ITS ---
STUDY: X-RAY - RIGHT RADIUS AND ULNA REASON FOR EXAM: Male, 81 years old. Fall onto gravel. Laceration of the posterior forearm. Unable to rotate forearm for AP image. TECHNIQUE: 2 view(s) of the forearm. COMPARISON: None. FINDINGS: There is no demonstrated soft tissue swelling. Normal visualized radius. Normal visualized ulna. There is no acute fracture, dislocation or destructive osseous pathology. Mild degenerative changes of the wrist. The elbow is intact. RAD/Forearm 2 Views IMPRESSION: Normal x-ray examination of the right radius and ulna. Electronically Signed: Garo Ch DO at 20:27 EDT ,
--- NOTE | 2022-03-11 20:00 | RAD_ITS ---
STUDY: X-RAY - RIGHT KNEE REASON FOR EXAM: Male, 81 years old. Fall while chasing dog. TECHNIQUE: 4 view(s) of the knee. COMPARISON: None. FINDINGS: Normal visualized distal femur. Normal visualized proximal tibia and fibula. Normal proximal tibiofibular articulation. There is no acute fracture, dislocation or destructive osseous pathology. There is mild degenerative arthrosis of the medial femorotibial compartment. Normal lateral femorotibial compartment. There is mild degenerative arthrosis of the patellofemoral articulation. There is no demonstrated joint effusion. There are atherosclerotic calcifications. RAD/Knee 4 or More Views IMPRESSION: Degenerative changes of the right knee without acute fracture or dislocation. Electronically Signed: Garo Ch DO at 20:39 EDT ,
[2022-03-11 20:17] LABS: Prothrombin Time (Protime)PT. 43.5 SECONDS (11.7-14.9)
[2022-03-11 20:20] LABS: International Normalized Ratio 4.6
--- NOTE | 2022-03-11 20:25 | RAD_ITS ---
STUDY: X-RAY - RIGHT SHOULDER REASON FOR EXAM: Male, 81 years old. Fell while spacing and dog.. TECHNIQUE: 2 view(s) of the shoulder. COMPARISON: Chest, 10/22/2021. FINDINGS: There is cephalad migration of the humeral head consistent with rotator cuff pathology. There is arthrosis of the glenohumeral joint. Normal acromioclavicular joint. Normal acromion. Normal humeral head and visualized proximal humerus. The soft tissue structures are unremarkable. Again seen is evidence of median sternotomy. Normal visualized pulmonary apex. RAD/Shoulder min 2 Views IMPRESSION: Able degenerative changes of the right shoulder. There is no acute fracture or dislocation. Electronically Signed: Garo Ch DO at 20:43 EDT ,
[2022-03-11 22:03] VITALS: BP 92/56; PULSE 86; RESP 14; O2SAT 96
== END 2022-03-11 22:09 | disposition home or self-care (01) ==
PROVIDERS: Emergency Provider Emergency Medicine; PCP Family Medicine; Visit Provider Emergency Medicine
DX: S41.111A Laceration without foreign body of right upper arm, initial encounter (principal); J44.9 Chronic obstructive pulmonary disease, unspecified; I11.0 Hypertensive heart disease with heart failure; I50.22 Chronic systolic (congestive) heart failure; S46.911A Strain of unspecified muscle, fascia and tendon at shoulder and upper arm level, right arm, initial encounter; S80.01XA Contusion of right knee, initial encounter; E78.00 Pure hypercholesterolemia, unspecified; I25.10 Atherosclerotic heart disease of native coronary artery without angina pectoris; M19.90 Unspecified osteoarthritis, unspecified site; W17.89XA Other fall from one level to another, initial encounter; Y93.K1 Activity, walking an animal; F17.210 Nicotine dependence, cigarettes, uncomplicated; Z79.82 Long term (current) use of aspirin; Z95.2 Presence of prosthetic heart valve; Z79.01 Long term (current) use of anticoagulants; Z79.899 Other long term (current) drug therapy
CPT/HCPCS: 36415; 73030; 73090; 73564; 85610; 99283

== ENCOUNTER → 2022-03-17 | Outpatient (CLI) | payer MEDICARE, SELFPAY ==
[2022-03-17 10:56] LABS: INR Fingerstick 1.9; Prothrombin Time Fingerstick 22.2 SEC (11.7-14.9)
== END | disposition home or self-care (01) ==
LOC: LAB 08:47
PROVIDERS: PCP Family Medicine; Referring Provider Internal Medicine Cardiovascular Disease; Visit Provider Internal Medicine Cardiovascular Disease
DX: I48.0 Paroxysmal atrial fibrillation (principal); Z79.01 Long term (current) use of anticoagulants; Z95.2 Presence of prosthetic heart valve
CPT/HCPCS: 36416; 85610

== ENCOUNTER → 2022-03-24 | Outpatient (CLI) | payer MEDICARE, SELFPAY ==
[2022-03-24 12:00] LABS: INR Fingerstick 3.4; Prothrombin Time Fingerstick 38.3 SEC (11.7-14.9)
== END | disposition home or self-care (01) ==
LOC: LAB 09:19
PROVIDERS: PCP Family Medicine; Referring Provider Internal Medicine Cardiovascular Disease; Visit Provider Internal Medicine Cardiovascular Disease
DX: I48.0 Paroxysmal atrial fibrillation (principal); Z95.2 Presence of prosthetic heart valve; Z79.01 Long term (current) use of anticoagulants
CPT/HCPCS: 36416; 85610

== ENCOUNTER 2022-04-02 12:25 | Observation (INO) | payer OTHER, SELFPAY ==
[2022-04-02] VITALS (11 sets, daily range): BP systolic 102–123; BP diastolic 35–85; PULSE 49–94; RESP 13–24; TEMP 36.1–36.7; O2SAT 94–99; BMI 24.0; BMI 23.8
--- NOTE | 2022-04-02 12:57 | ED.RN ---
Emily, daughter, would like notified on results and status of patient. Phone number [phone]
--- NOTE | 2022-04-02 13:30 | EKG12_ITS ---
Test Reason : SOB Blood Pressure : / mmHG Vent. Rate : 054 BPM Atrial Rate : 054 BPM P-R Int : 360 ms QRS Dur : 124 ms QT Int : 524 ms P-R-T Axes : 052 -59 061 degrees QTc Int : 496 ms Sinus bradycardia with 1st degree A-V block with Premature atrial complexes with Aberrant conduction Left axis deviation Right bundle branch block Anteroseptal infarct , age undetermined Abnormal ECG Confirmed by JOSÉ KO, WIE ([id number]), editorial cartoonist MIMA VALDEZ ([id number]) on 04/05/2022 10:58:47 AM Referred By: DK/ETHAN Confirmed By:WEI KUMAR MD
--- NOTE | 2022-04-02 13:38 | ED.VIS.DYS ---
HPI History of Present Illness Chief Complaint: Shortness of Breath Detail of Chief Complaint: Generalized weakness. Informant: patient Onset/Context/Timing Onset: Days Context: gradual Timing: Continuous Current Severity: Mild Maximum Severity: Mild Associated Symptoms Negative for cough Chest Pain: Positive for None Narrative Narrative: 81-year-old male history of anemia, CAD, COPD, A. 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 Went to see his primary care physician today sittings been generally weak and they did labs his hemoglobin was 7.2 and he sentiment for transfusion. He denies any melena. Patient tells me that he was transfused a year ago for anemia. He denies any nausea vomiting or diarrhea. No fever or chills. No chest pain. States he is generally weak and gets short of breath with exertion only. PE Risk Factors: Negative for Cancer, OCP + Smoking + > 35, Prior DVT or PE, Recent immobilization, Recent surgery or Recent travel Prior similar symptoms: Yes Recent Illness/Hospitalization: No PFSH PFSH Medical History Ambulates with cane Anemia Anemia due to chronic blood loss Arthritis Atherosclerotic heart disease of [place] coronary artery without angina pectoris Back pain Back pain due to injury Cardiology follow-up encounter CHF (congestive heart failure) Chronic cough Chronic pain syndrome Chronic systolic (congestive) heart failure COPD (chronic obstructive pulmonary disease) COPD (chronic obstructive pulmonary disease) Difficulty swallowing Essential hypertension Gastric reflux Heart attack High cholesterol History of atrial fibrillation History of CHF (congestive heart failure) History of echocardiogram History of edema History of GI bleed History of heart attack History of pain when walking History of stress test Hx of fracture of ankle Hx of fracture of ankle Hypertension Injury of back Injury of head and neck Irregular heartbeat Ischemic cardiomyopathy retirement current use of anticoagulant 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 Paroxysmal atrial fibrillation Pure hypercholesterolemia Restless legs Secondary pulmonary arterial hypertension Shortness of breath on exertion Smoker Spinal stenosis of lumbar region Stroke TIA (transient ischemic attack) Tobacco use disorder Uncontrolled pain Wears dentures Wears glasses Home Medications rosuvastatin 40 mg tablet 40 mg PO QHS cholesterol 07/15/13 [History Last Taken 08/15/21 22:00] ferrous sulfate 325 mg (65 mg iron) tablet 325 mg PO BIDCM IRON SUPPLEMENT 09/13/15 [History Last Taken 08/14/21 18:00] albuterol sulfate 90 mcg/actuation breath activated powder inhaler 1 puff inhalation Q4H PRN PRN Wheezing 09/25/15 [History Last Taken 06/04/18] cholecalciferol (vitamin D3) 25 mcg (1,000 unit) tablet 2,000 unit PO DAILY SUPPLEMENT 09/25/15 [History Last Taken 08/15/21 08:00] aspirin 81 mg tablet,delayed release 81 mg PO DAILY@0800 HEART HEALTH 06/24/16 [History Last Taken 08/15/21 08:00] folic acid 1 mg tablet 1 mg PO QHS SUPPLEMENT 06/24/16 [History Last Taken 08/15/21 22:00] isosorbide mononitrate 30 mg tablet,extended release 24 hr 30 mg PO QAM BP 11/21/17 [History Last Taken 08/15/21 08:00] pantoprazole 40 mg tablet,delayed release 40 mg PO BID ACID REFLUX 01/02/18 [History Last Taken 08/15/21 22:00] zolpidem 10 mg tablet 10 mg PO QHS SLEEP 05/26/18 [History Last Taken 08/15/21 22:00] pregabalin 75 mg capsule 75 mg PO TID pain 07/28/18 [History Last Taken 08/15/21 22:00] metoprolol tartrate 25 mg tablet 12.5 mg PO BID Dose increased for Rapid Heart Rate 11/26/19 [History Last Taken 08/15/21 22:00] nitroglycerin 0.4 mg sublingual tablet 0.4 mg sublingual Q5M PRN Chest Pain #30 tabs 05/25/21 [Rx Last Taken Unknown] tiotropium 2.5 mcg-olodaterol 2.5 mcg/actuation mist for inhalation (Stiolto Respimat) 1 puff inhalation DAILY Check with primary doctor 06/18/21 [History Last Taken 08/15/21 08:00] furosemide 40 mg tablet 40 mg PO DAILY WATER PILL 06/21/21 [History Last Taken 08/15/21 08:00] buprenorphine 10 mcg/hour weekly transdermal patch 10 mcg transdermal QWEEK pain 08/16/21 [History Last Taken 08/09/21 08:00] ipratropium 0.5 mg-albuterol 3 mg (2.5 mg base)/3 mL nebulization soln 3 ml inhalation Q6H PRN sob/wheezing 11/25/21 [History Last Taken Unknown] warfarin 5 mg tablet 5 mg PO .COMPLEX #45 tabs 01/27/22 [Rx Last Taken Unknown] warfarin 7.5 mg tablet 7.5 mg PO .COMPLEX #90 tabs 01/27/22 [Rx Last Taken Unknown] Allergy/AdvReac Type Severity Reaction Status Date / Time No Known Allergies Allergy Verified 04/02/22 12:25 Family History Son , age 44 from [place] CAD (coronary artery disease) Myocardial infarction Sudden cardiac Brother CAD (coronary artery disease) Pt states all nine of his siblings have heart problems Sister CAD (coronary artery disease) Patient states all nine of his siblings have heart problems Surgical History H/O cardiac catheterization History of coronary artery stent placement (~06/28/11) History of esophagogastroduodenoscopy (EGD) (~10/2021) History of left heart catheterization History of lumbar fusion History of mechanical aortic valve replacement (~03/27/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) Status post cardiac surgery Social History Smoking Status: Current every day smoker tobacco type: cigarettes alcohol intake: never substance use type: does not use caffeine: No ROS ROS ED ROS Narrative Restless legs. Generalized weakness. Review of Systems ROS Unobtainable: Denies due to encephalopathy Constitutional Constitutional ED: Denies chills or fever(s) Eyes Eyes: Denies blurry vision ENT ENT ED: Denies ear pain Respiratory/Chest Respiratory/Chest: Reports dyspnea and dyspnea on exertion; Denies cough Gastrointestinal Gastrointestinal: Denies abdominal pain Genitourinary Genitourinary ED: Denies dysuria or hematuria Musculoskeletal Musculoskeletal: Denies arthralgias Integumentary Denies abscess Neurologic Neurologic: Denies headache(s) Psychiatric Psychiatric: Denies anxiety Endocrine Endocrinology: Denies cold intolerance Hematologic/Lymphatic Hematologic/Lymphatic: Denies easy bleeding Allergic/Immunologic Allergic/Immunologic ED: Denies mouth swelling or tongue swelling EXAM Physical Exam Narrative Exam Narrative: 81-year-old male no acute distress. Vital signs stable. Afebrile. Pulse ox 9 9% on room air no hypoxia. H EENT exam unremarkable. Neck nontender. Lungs clear to auscultation bilaterally. Heart bradycardic rate in the 50s with a 4/6 systolic ejection murmur. He is a prosthetic valve click. Const Vital Signs: 04/02/22 12:26 04/02/22 12:45 04/02/22 12:51 Temperature 97.7 F L Temperature Source Temporal Pulse Rate 51 L Respiratory Rate 24 H Respiratory Effort Normal Non-Labored Short of Breath Short of Breath Respiratory Pattern Normal Blood Pressure 111/35 L Blood Pressure Mean 60 Pulse Ox 99 Oxygen Delivery Method Room Air Room Air 04/02/22 12:58 Temperature Temperature Source Pulse Rate 54 L Respiratory Rate 17 Respiratory Effort Respiratory Pattern Blood Pressure 109/53 L Blood Pressure Mean 71 Pulse Ox 98 Oxygen Delivery Method Room Air Positive well nourished and well developed; Negative for obese, cachectic, contractures or unkempt General Appearance ED: well developed, NAD and pallor; Negative for unkempt, cachectic or contractures Nutritional Appearance: Negative for cachectic or obese HEENT Reports moist mucous membranes; Denies dry mucous membranes atraumatic; Negative for trauma or tenderness Mouth ED: No dry mucous membranes Mouth: No dry mucous membranes Eyes PERRL and EOMs intact bilaterally General Eye ED: Negative for pale conjunctiva or scleral icterus Neck no lymphadenopathy, supple, no meningeal signs and no JVD General: Negative for tenderness Lymph Lymphatic: Negative for other Resp normal respiratory effort and clear to auscultation bilaterally Effort and Inspection: Negative for pain with movement Auscultation: Negative for rales, rhonchi or wheezes Cardio regular rhythm, S1 normal heart sound and S2 normal heart sound; Negative for regular rate or no murmurs Rate: bradycardia GI non-tender, non-distended and no masses Inspection: Negative for other Auscultation: normoactive bowel sounds Palpation: soft; Negative for tender, guarding or hepatomegaly Back/Spine no CVA tenderness and normal to inspection General Back: Negative for CVA tenderness or tenderness Extremity normal to inspection General Extremety ED: Negative for edema or tenderness General Extremity: Negative for edema Neuro oriented x3 Sensorium / Orientation: alert, oriented to person, oriented to place and oriented to time; Negative for orientation impaired, confused, lethargic or stuporous Speech: speech normal Motor Exam: strength 5/5 throughout Psych mental status grossly normal Appearance: Negative for unkempt Attitude: No agitated and No other Mood & Affect: Negative for depressed Thought Process: normal thought process Skin no wounds and skin turgor normal General Skin Exam: pallor; Negative for jaundice Trauma: Negative for abrasion MDM MDM MDM Narrative Medical decision making narrative: 81-year-old male. Anemia. Anticoagulated on Coumadin. He has been typed and crossed for 2 units. Will be transfused. A PT/INR is pending. The hospitalist and I discussed his care. He will be admitted for transfusion and further evaluation. Lab Data Attestation: I reviewed the patient's lab results. Lab results narrative: Patient CBC shows a white count 3.5. Hemoglobin 7.2 previous is 11.5. Platelets 136,000. Chemistries unremarkable BUN of 30 creatinine 1.83. PT/INR pending. Type and cross pending. Labs: Laboratory Results - last 24 hr 04/02/22 13:00 Blood Type Cancelled Antibody Screen Cancelled Crossmatch See Detail Rhythm Strip Rhythm Strip: Sinus Rhythm Rate: 54 Ectopy: PAC(s) EKG Initial EKG: Attestation: I personally reviewed and interpreted this EKG as follows: Interpretation: Sinus Rhythm and Sinus Bradycardia Comments: Sinus bradycardia rate of 54. First-degree AV block with a CT interval of 360 and PACs. Right bundle branch block. Old anteroseptal [place]. Discharge Plan Dx/Rx/DC Orders Clinical Impression: Acute anemia, Chronic anticoagulation, History of prosthetic heart valve, Transfusion of blood during current hospitalisation, History of atrial fibrillation Disposition Disposition: Acute Care Hospital [facility]
--- NOTE | 2022-04-02 13:44 | NURSING ---
CALLED [facility], TALKED TO DIANNA IN BED CONTROL. SHE TRANSFERRED ME TO TRANSFER LINE. MESSAGE LEFT ON THEIR MACHINE
--- NOTE | 2022-04-02 13:56 | NURSING ---
MED SURG OBS TERELETSKY ANEMIA, TRANSFUSION, ANTICOAGULATION, PROSTATIC VALVE
[2022-04-02 13:59] LABS: International Normalized Ratio 3.2; Prothrombin Time (Protime)PT. 32.7 SECONDS (11.7-14.9)
--- NOTE | 2022-04-02 14:05 | ED.RN ---
Attempted to contact Emily, daughter, no answer
--- NOTE | 2022-04-02 15:01 | CT_ITS ---
STUDY: CT ABDOMEN AND PELVIS WITH CONTRAST REASON FOR EXAM: Male, 81 years old. liver? LOW HEMAGLOBIN,ANEMIA RADIATION DOSAGE (If Supplied By Facility): CTDIvol = ( 9.13 ) mGy, DLP = ( 437.29 ) mGycm TECHNIQUE: Transaxial images were obtained from the dome of the diaphragm to the symphysis pubis without oral contrast. IV 75mL Isovue-300 was administered. Sagittal and coronal images were reconstructed. Individualized dose optimization techniques were used for this CT. COMPARISON: 01/07/2019. FINDINGS: Mild chronic interstitial emphysematous changes at the lung bases. Minor atelectasis in left lower lobe. The visualized portions of the heart are within normal limits. Nonspecific fatty infiltrated liver without mass or bile duct dilatation.. Normal gallbladder and extrahepatic biliary system. Spleen is mildly enlarged. Normal pancreas. Normal bilateral adrenal glands. Horseshoe kidney deformity is noted. No evidence for renal obstruction. There is a small simple cyst at the isthmus Normal visualized stomach. Normal small intestine. Minor ileus with diffuse fecal retention in the colon.. No evidence for acute appendicitis. Atherosclerotic changes of the aorta without evidence for aneurysm. Normal inferior vena cava. Normal retroperitoneum. Incompletely distended thick-walled bladder of uncertain significance. Nonspecific prominence of the prostate. Normal abdominal wall. Lumbar spine demonstrates degenerative change. Postop changes status post bilateral laminectomy and posterior fusion at L4-5 and L5-S1 CT/Abdomen/Pelvis W IV Cont ONLY IMPRESSION: Nonspecific fatty infiltrated liver and mild splenomegaly. Minor ileus with diffuse fecal retention in the colon. Nonspecific prostate enlargement Electronically Signed: Jordy Sevilla MD at 16:14 EDT ,
--- NOTE | 2022-04-02 15:48 | PCM.HP.STD ---
HPI - General General Date of Admission: 04/02/22 Date of Service: 04/02/22 Chief Complaint: Shortness of breath, generalized weakness, low hemoglobin HPI Narrative REBECCA ARRIOLA, is a 81 M who presents to the emergency room at [facility] after seeing his primary care physician today for generalized weakness and dyspnea, labs were performed which showed a low hemoglobin of 7.2 and the patient was sent to the emergency room here for evaluation. Labs performed by the emergency room showed a white blood cell count of 3.5, hemoglobin was 7.2, platelet count was 121,000, patient's chemistry profile was remarkable for creatinine of 1.83, BUN was 30, glucose was 165, TSH was normal. Patient will be placed into observation status for acute anemia, he will be seen in consultation by gastroenterology and undergo an EGD and a colonoscopy. Patient will be transfused 2 units of packed red blood cells CBC will be rechecked tomorrow [facility] Medical History Ambulates with cane Anemia Anemia due to chronic blood loss Arthritis Atherosclerotic heart disease of [place] coronary artery without angina pectoris Back pain Back pain due to injury Cardiology follow-up encounter CHF (congestive heart failure) Chronic cough Chronic pain syndrome Chronic systolic (congestive) heart failure COPD (chronic obstructive pulmonary disease) COPD (chronic obstructive pulmonary disease) Difficulty swallowing Essential hypertension Gastric reflux Heart attack High cholesterol History of atrial fibrillation History of CHF (congestive heart failure) History of echocardiogram History of edema History of GI bleed History of heart attack History of pain when walking History of stress test Hx of fracture of ankle Hx of fracture of ankle Hypertension Injury of back Injury of head and neck Irregular heartbeat Ischemic cardiomyopathy [place]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 Paroxysmal atrial fibrillation Pure hypercholesterolemia Restless legs Secondary pulmonary arterial hypertension Shortness of breath on exertion Smoker Spinal stenosis of lumbar region Stroke TIA (transient ischemic attack) Tobacco use disorder Uncontrolled pain Wears dentures Wears glasses Home Medications rosuvastatin 40 mg tablet 40 mg PO QHS cholesterol 07/15/13 [History Last Taken 08/15/21 22:00] ferrous sulfate 325 mg (65 mg iron) tablet 325 mg PO BIDCM IRON SUPPLEMENT 09/13/15 [History Last Taken 08/14/21 18:00] albuterol sulfate 90 mcg/actuation breath activated powder inhaler 1 puff inhalation Q4H PRN PRN Wheezing 09/25/15 [History Last Taken 06/04/18] cholecalciferol (vitamin D3) 25 mcg (1,000 unit) tablet 2,000 unit PO DAILY SUPPLEMENT 09/25/15 [History Last Taken 08/15/21 08:00] aspirin 81 mg tablet,delayed release 81 mg PO DAILY@0800 HEART HEALTH 06/24/16 [History Last Taken 08/15/21 08:00] folic acid 1 mg tablet 1 mg PO QHS SUPPLEMENT 06/24/16 [History Last Taken 08/15/21 22:00] isosorbide mononitrate 30 mg tablet,extended release 24 hr 30 mg PO QAM BP 11/21/17 [History Last Taken 08/15/21 08:00] pantoprazole 40 mg tablet,delayed release 40 mg PO BID ACID REFLUX 01/02/18 [History Last Taken 08/15/21 22:00] zolpidem 10 mg tablet 10 mg PO QHS SLEEP 05/26/18 [History Last Taken 08/15/21 22:00] pregabalin 75 mg capsule 75 mg PO TID pain 07/28/18 [History Last Taken 08/15/21 22:00] metoprolol tartrate 25 mg tablet 12.5 mg PO BID Dose increased for Rapid Heart Rate 11/26/19 [History Last Taken 08/15/21 22:00] nitroglycerin 0.4 mg sublingual tablet 0.4 mg sublingual Q5M PRN Chest Pain #30 tabs 05/25/21 [Rx Last Taken Unknown] tiotropium 2.5 mcg-olodaterol 2.5 mcg/actuation mist for inhalation (Stiolto Respimat) 1 puff inhalation DAILY Check with primary doctor 06/18/21 [History Last Taken 08/15/21 08:00] furosemide 40 mg tablet 40 mg PO DAILY WATER PILL 06/21/21 [History Last Taken 08/15/21 08:00] buprenorphine 10 mcg/hour weekly transdermal patch 10 mcg transdermal QWEEK pain 08/16/21 [History Last Taken 08/09/21 08:00] ipratropium 0.5 mg-albuterol 3 mg (2.5 mg base)/3 mL nebulization soln 3 ml inhalation Q6H PRN sob/wheezing 11/25/21 [History Last Taken Unknown] warfarin 5 mg tablet 5 mg PO .COMPLEX #45 tabs 01/27/22 [Rx Last Taken Unknown] warfarin 7.5 mg tablet 7.5 mg PO .COMPLEX #90 tabs 01/27/22 [Rx Last Taken Unknown] Allergy/AdvReac Type Severity Reaction Status Date / Time No Known Allergies Allergy Verified 04/02/22 12:25 Family History Son , age 44 from [place] CAD (coronary artery disease) Myocardial infarction Sudden cardiac Brother CAD (coronary artery disease) Pt states all nine of his siblings have heart problems Sister CAD (coronary artery disease) Patient states all nine of his siblings have heart problems Surgical History H/O cardiac catheterization History of coronary artery stent placement (~06/28/11) History of esophagogastroduodenoscopy (EGD) (~10/2021) History of left heart catheterization History of lumbar fusion History of mechanical aortic valve replacement (~03/27/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) Status post cardiac surgery Social History Smoking Status: Current every day smoker tobacco type: cigarettes alcohol intake: never substance use type: does not use caffeine: No ROS ROS Narrative Patient complains of generalized weakness Constitutional Constitutional: Reports weakness; Denies anorexia, change in weight, fever(s) or night sweats Eyes Eyes: Denies blurry vision, change in vision, discharge from eye(s) or eye pain ENT HEENT: Denies abnormal hearing or dysphagia Cardiovascular Cardiovascular: Reports dyspnea on exertion; Denies chest pain, claudication, edema, palpitations, paroxysmal nocturnal dyspnea or rapid heart rate Respiratory/Chest Respiratory/Chest: Reports dyspnea; Denies cough, excessive phlegm production, hemoptysis, productive cough, shortness of breath at rest or shortness of breath with exertion Gastrointestinal Gastrointestinal: Denies abdominal pain, constipation, diarrhea, hematemesis, hematochezia, melena, nausea or vomiting Genitourinary Genitourinary: Denies dysuria, hematuria, urinary frequency, urinary hesitancy, urinary incontinence or urinary urgency Musculoskeletal Musculoskeletal: Denies back pain, joint pain, joint stiffness, joint swelling, myalgias or neck pain Neurologic Neurologic: Denies abnormal gait, abnormal speech, dizziness, focal weakness, headache(s), loss of vision, numbness, other visual disturbances, paresthesias, syncope or tingling Psychiatric Psychiatric: Denies anxiety, cognitive impairment, depression, irritability, mood swings or suicidal ideation Endocrine Endocrinology: Denies change in body appearance, cold intolerance, excessive sweating, heat intolerance, polydipsia or polyuria Hematologic/Lymphatic Hematologic/Lymphatic: Denies none, anemia, easy bleeding, easy bruising or lymphadenopathy Allergic/Immunologic Allergic/Immunologic: Denies rhinitis, urticaria, eczemia or asthma Vital Signs Vital Signs Vital Signs: 04/02/22 12:26 04/02/22 12:45 04/02/22 12:51 Temperature 97.7 F L Temperature Source Temporal Pulse Rate 51 L Respiratory Rate 24 H Respiratory Effort Normal Non-Labored Short of Breath Short of Breath Respiratory Pattern Normal Blood Pressure 111/35 L Blood Pressure Mean 60 Pulse Ox 99 Oxygen Delivery Method Room Air Room Air 04/02/22 12:58 04/02/22 14:13 04/02/22 14:13 Temperature 98.0 F Temperature Source Temporal Pulse Rate 54 L 59 L 56 L Respiratory Rate 17 16 14 Respiratory Effort Respiratory Pattern Blood Pressure 109/53 L 113/53 L 113/53 L Blood Pressure Mean 71 73 73 Pulse Ox 98 Oxygen Delivery Method Room Air 04/02/22 15:00 Temperature Temperature Source Pulse Rate 58 L Respiratory Rate 13 Respiratory Effort Respiratory Pattern Blood Pressure 113/66 Blood Pressure Mean 81 Pulse Ox 95 Oxygen Delivery Method Room Air Weight Weight: 76.204 kg Body Mass Index (BMI) 24.0 Physical Exam Const alert, oriented x3, no apparent distress and average body habitus General Appearance: cooperative, well kempt and well developed Orientation / Consciousness: awake, oriented to person, oriented to place and oriented to time HEENT normocephalic, head/scalp atraumatic, hearing grossly normal bilaterally and moist oral mucous membranes Eyes PERRL, EOMs intact bilaterally and conjunctivae normal Neck supple, no JVD, thyroid normal and no carotid bruits General: trachea midline Resp normal respiratory effort, no retractions, no use of accessory muscles and clear to auscultation bilaterally Auscultation: Negative for rales, rhonchi or wheezes Cardio regular rate, regular rhythm, no murmurs, no rub and no gallops Cardio Narrative: There is a mechanical click noted over the patient's apex on auscultation GI normal to inspection, nondistended, normoactive bowel sounds, soft to palpation, non-tender and non-distended Extremity normal to inspection and no clubbing, cyanosis or edema Extremity Narrative: Patient has intermittent jerking movements of the patient's left leg during the time of my examination Skin no rashes or lesions noted General Skin Exam: no breakdown Neuro oriented x3, CN's II-XII intact bilaterally, no focal motor deficits and no sensory deficits noted Sensorium / Orientation: awake, alert, oriented to person and oriented to place Speech: speech normal Psych affect normal Results Lab / Micro Data Labs: Laboratory Results - last 24 hr 04/02/22 13:00: PT 32.7 H, INR 3.2 04/02/22 13:00: Blood Type Cancelled, Antibody Screen Cancelled, Crossmatch See Detail 04/02/22 14:09: Crossmatch See Detail Rhythm Strip Rhythm Strip: Sinus Rhythm Rate: 54 Ectopy: PAC(s) Assessment & Plan Assessment/Plan (1) Acute anemia: PLAN: Plan 1. Acute anemia-etiology unclear at this point, patient will be placed in observation status on MedSurg, he will be transfused 2 units of packed red blood cells, patient will be seen in consultation by gastroenterology and undergo an EGD and a colonoscopy tomorrow. #2 generalized weakness-probably secondary to #1, patient will be reevaluated tomorrow after he is received his transfusion #3 mechanical aortic valve-patient is currently on Coumadin, his INR today was 3.2, the Coumadin will be held for now, INR will be repeated tomorrow #4 history of atrial fibrillation-patient is currently in sinus rhythm at this time #5 mild clonus of the left leg-I am unsure whether this is restless leg syndrome or myoclonus, patient will be placed on low-dose Flexeril to see if this helps #6 chronic obstructive pulmonary disease-complicates care, management, recovery, and prognosis #7 history of coronary artery disease-patient has had a stent placed in the past as well as coronary artery bypass 1993. Patient's fluid intake will be monitored #8 long-term use of anticoagulant-patient's Coumadin will be held at this time, INR will be rechecked tomorrow Charges/Coding Visit Charges OBSV E&M: 37321 Initial observation care L3
--- NOTE | 2022-04-02 16:00 | PCM.CONS.GEN ---
Assessment & Plan Assessment/Plan (1) Acute anemia: PLAN: The differential diagnosis for his acute blood loss anemia does include angiodysplasia of the upper GI tract specifically at or near the ligament of Treitz and the duodenum and above, small bowel bleed secondary to angiodysplasia telangiectasias which is more common in patients with heart valve replacement, neoplasia of the colon or angiodysplasia of the colon would be less likely due to the patient not seeing any blood per rectum. He will undergo an upper and lower endoscopy for evaluation of his upper and lower GI tract. He was explained alternatives, risk, benefits including not withstanding bleeding, infection, sepsis, perforation, need for emergency to . He will have an ASA of 3. (2) Chronic anticoagulation: PLAN: His INR is currently 3.2. We will not need to reverse his anticoagulation at this time. We will recheck his INR in the morning. HPI Consult Data Date of Consult: 04/04/22 HPI Narrative Reason for Consultation: GI bleed HPI Narrative: REBECCA ARRIOLA, is a 81 M who presents to the ED with symptoms of weakness and fatigue. He has a past medical history of anemia, CAD, COPD, A. fib, TIA, prosthetic aortic valve on Coumadin.? His current INR is 3.2. He went to see his primary care physician today sittings been generally weak and they did labs his hemoglobin was 7.2 and he sentiment for transfusion.? He denies any melena.? Patient tells me that he was transfused a year ago for anemia.? He denies any nausea vomiting or diarrhea.? No fever or chills.? No chest pain.? States he is generally weak and gets short of breath with exertion only. Risk Factors: Negative for Cancer, OCP + Smoking + > 35, Prior DVT or PE, Recent immobilization, Recent surgery or Recent travel I saw him on a previous visit for acute blood loss anemia. He had an upper endoscopy which had shown blood in the stomach along with blood in his posterior pharynx going down into his stomach. It was assumed that this was a posterior nasal bleed. He is not noticed any significant blood loss per rectum. Denies any melena or hematochezia. He denies any chest pain or shortness of breath. All other 16 review of systems are negative except those pertinent positive mentioned HPI. [facility] Medical History (Updated 04/03/22 @ 12:[address] Pancho Mantilla, DO) Ambulates with cane Anemia Anemia due to chronic blood loss Arthritis Atherosclerotic heart disease of [place] coronary artery without angina pectoris Back pain Back pain due to injury Cardiology follow-up encounter CHF (congestive heart failure) Chronic cough Chronic pain syndrome Chronic systolic (congestive) heart failure COPD (chronic obstructive pulmonary disease) COPD (chronic obstructive pulmonary disease) Difficulty swallowing Essential hypertension Gastric reflux Heart attack High cholesterol History of atrial fibrillation History of CHF (congestive heart failure) History of echocardiogram History of edema History of GI bleed History of heart attack History of pain when walking History of stress test Hx of fracture of ankle Hx of fracture of ankle Hypertension Injury of back Injury of head and neck Irregular heartbeat Ischemic cardiomyopathy jail current use of anticoagulant 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 Paroxysmal atrial fibrillation Pure hypercholesterolemia Restless legs Secondary pulmonary arterial hypertension Shortness of breath on exertion Smoker Spinal stenosis of lumbar region Stage 3a chronic kidney disease (CKD) Stroke TIA (transient ischemic attack) Tobacco use disorder Uncontrolled pain Wears dentures Wears glasses Home Medications rosuvastatin 40 mg tablet 40 mg PO QHS cholesterol 07/15/13 [History Last Taken 04/01/22] ferrous sulfate 325 mg (65 mg iron) tablet 325 mg PO BIDCM IRON SUPPLEMENT 09/13/15 [History Last Taken 04/02/22] albuterol sulfate 90 mcg/actuation breath activated powder inhaler 1 puff inhalation Q4H PRN PRN Wheezing 09/25/15 [History Last Taken 06/04/18] cholecalciferol (vitamin D3) 25 mcg (1,000 unit) tablet 2,000 unit PO DAILY SUPPLEMENT 09/25/15 [History Last Taken 04/02/22] aspirin 81 mg tablet,delayed release 81 mg PO DAILY@0800 HEART [facility] 06/24/16 [History Last Taken 04/02/22] folic acid 1 mg tablet 1 mg PO QHS SUPPLEMENT 06/24/16 [History Last Taken 04/01/22] isosorbide mononitrate 30 mg tablet,extended release 24 hr 30 mg PO QAM BP 11/21/17 [History Last Taken 04/02/22] pantoprazole 40 mg tablet,delayed release 40 mg PO BID ACID REFLUX 01/02/18 [History Last Taken 04/02/22] zolpidem 10 mg tablet 10 mg PO QHS SLEEP 05/26/18 [History Last Taken 04/01/22] pregabalin 75 mg capsule 75 mg PO TID pain 07/28/18 [History Last Taken 04/02/22] metoprolol tartrate 25 mg tablet 12.5 mg PO BID Dose increased for Rapid Heart Rate 11/26/19 [History Last Taken 04/02/22] nitroglycerin 0.4 mg sublingual tablet 0.4 mg sublingual Q5M PRN Chest Pain #30 tabs 05/25/21 [Rx Last Taken Unknown] tiotropium 2.5 mcg-olodaterol 2.5 mcg/actuation mist for inhalation (Stiolto Respimat) 1 puff inhalation DAILY Check with primary doctor 06/18/21 [History Last Taken 08/15/21 08:00] furosemide 40 mg tablet 40 mg PO DAILY WATER PILL 06/21/21 [History Last Taken 04/02/22] buprenorphine 10 mcg/hour weekly transdermal patch 10 mcg transdermal QWEEK pain 08/16/21 [History Last Taken 03/26/22] ipratropium 0.5 mg-albuterol 3 mg (2.5 mg base)/3 mL nebulization soln 3 ml inhalation Q6H PRN sob/wheezing 11/25/21 [History Last Taken 04/02/22] warfarin 5 mg tablet 5 mg PO .COMPLEX #45 tabs 01/27/22 [Rx Last Taken 03/28/22] warfarin 7.5 mg tablet 7.5 mg PO .COMPLEX #90 tabs 01/27/22 [Rx Last Taken 04/02/22] Allergy/AdvReac Type Severity Reaction Status Date / Time No Known Allergies Allergy Verified 04/02/22 12:25 Family History Son , age 44 from [place] CAD (coronary artery disease) Myocardial infarction Sudden cardiac Brother CAD (coronary artery disease) Pt states all nine of his siblings have heart problems Sister CAD (coronary artery disease) Patient states all nine of his siblings have heart problems Surgical History (Updated 04/02/22 @ 13:[address] Jimmy Newman MD) H/O cardiac catheterization History of coronary artery stent placement (~06/28/11) History of esophagogastroduodenoscopy (EGD) (~10/2021) History of left heart catheterization History of lumbar fusion History of mechanical aortic valve replacement (~03/27/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) Status post cardiac surgery Social History Smoking Status: Current every day smoker tobacco type: cigarettes alcohol intake: never substance use type: does not use caffeine: No ROS ROS Narrative Patient complains of generalized weakness Constitutional Constitutional: Reports weakness; Denies anorexia, change in weight, fever(s) or night sweats Eyes Eyes: Denies blurry vision, change in vision, discharge from eye(s) or eye pain ENT HEENT: Denies abnormal hearing or dysphagia Cardiovascular Cardiovascular: Reports dyspnea on exertion; Denies chest pain, claudication, edema, palpitations, paroxysmal nocturnal dyspnea or rapid heart rate Respiratory/Chest Respiratory/Chest: Reports dyspnea; Denies cough, excessive phlegm production, hemoptysis, productive cough, shortness of breath at rest or shortness of breath with exertion Gastrointestinal Gastrointestinal: Denies abdominal pain, constipation, diarrhea, hematemesis, hematochezia, melena, nausea or vomiting Genitourinary Genitourinary: Denies dysuria, hematuria, urinary frequency, urinary hesitancy, urinary incontinence or urinary urgency Musculoskeletal Musculoskeletal: Denies back pain, joint pain, joint stiffness, joint swelling, myalgias or neck pain Neurologic Neurologic: Denies abnormal gait, abnormal speech, dizziness, focal weakness, headache(s), loss of vision, numbness, other visual disturbances, paresthesias, syncope or tingling Psychiatric Psychiatric: Denies anxiety, cognitive impairment, depression, irritability, mood swings or suicidal ideation Endocrine Endocrinology: Denies change in body appearance, cold intolerance, excessive sweating, heat intolerance, polydipsia or polyuria Hematologic/Lymphatic Hematologic/Lymphatic: Denies none, anemia, easy bleeding, easy bruising or lymphadenopathy Allergic/Immunologic Allergic/Immunologic: Denies rhinitis, urticaria, eczemia or asthma Lab / Micro Data Result Diagrams: 04/04/22 06:06 04/04/22 06:06 Labs: Laboratory Results - last 24 hr 04/02/22 13:00: PT 32.7 H, INR 3.2 04/02/22 13:00: Blood Type Cancelled, Antibody Screen Cancelled, Crossmatch See Detail 04/02/22 14:09: Blood Type O POSITIVE, Antibody Screen NEGATIVE, Crossmatch See Detail Rhythm Strip Rhythm Strip: Sinus Rhythm Rate: 54 Ectopy: PAC(s) Charges/Coding Visit Charges Inpatient E&M: 68138 Init Hosp L2
[2022-04-02] MEDS: Bisacodyl 5 MG Tablet 20 MG PO (18:16)
[2022-04-02] MEDS: Polyethylene Glycol 3350 BOWEL PREP PO (18:18)
[2022-04-02] MEDS: cycloBENZAPRine HCl 5 MG TABLET PO (21:24)
[2022-04-02] MEDS: Pregabalin 75 MG Capsule PO (21:24)
[2022-04-02] MEDS: Pantoprazole Sodium 40 MG Tablet PO (21:27)
[2022-04-03] VITALS (16 sets, daily range): BP systolic 100–147; BP diastolic 44–83; PULSE 53–73; RESP 16–18; TEMP 36.4–36.8; O2SAT 92–98
[2022-04-03] MEDS: cycloBENZAPRine HCl 5 MG TABLET PO ×3 (05:25→21:40)
[2022-04-03] MEDS: Pregabalin 75 MG Capsule PO ×3 (05:25→21:40)
[2022-04-03 06:14] LABS: Absolute Lymphocyte Count 0.48 X10^3/uL (0.83-4.51); Absolute Neutrophil Count 1.9 X10^3/uL (2.0-7.7); Basophil# 0.02 X10^3/uL; Basophil% 0.7 % (0-1); Eosinophil# 0.06 X10^3/uL; Eosinophils% 2.2 % (0-5); Hemoglobin 9.1 g/dL (13.0-16.5); Lymphocyte # 0.48 X10^3/ul (0.83-4.51); Lymphocyte % 17.8 % (19-41); Mean Corp Hgb Conc 29.4 g/dL (32-36); Mean Corpuscular Hgb 31.1 pg (27.0-32.0); Mean Corpuscular Volume 105.8 fL (80-94); Mean Platelet Vol. 11.2 fl (6.2-12.0); Monocyte# 0.23 X10^3/uL; Monocyte% 8.6 % (0-10); NRBC Flagged by Analyzer 0 % (0-5); Neutrophil # 1.89 X10^3/uL (2.7-7.7); Neutrophil % 70.3 % (47-70); POSITIVE DIFFERENTIAL YES; POSITIVE MORPHOLOGY YES; Platelet Count 110 K/mm3 (150-450); RBC Distribution Width CV 17.6 % (11.6-14.6); RBC Distribution Width SD 67.1 fl (35.1-43.9); Red Blood Count 2.93 M/mm3 (4.6-6.2); White Blood Count 2.7 K/mm3 (4.4-11.0)
[2022-04-03 06:31] LABS: Differential Indicated SCAN CRITERIA MET
[2022-04-03 06:47] LABS: Anisocytosis 3+; Differential Comment SCANNED; Macrocytosis 3+
--- NOTE | 2022-04-03 07:21 | PN.HOSP_ITS ---
Subjective Subjective Feels well Objective Data Objective Data Vital Signs: Vital Signs Temp Pulse Resp BP Pulse Ox O2 Del Method 36.8 C 53 L 18 117/54 L 95 Room Air 04/03/22 03:30 04/03/22 03:30 04/03/22 03:30 04/03/22 03:30 04/03/22 03:30 04/03/22 03:30 Oxygen Delivery Method Room Air Weight: 75.5 kg Body Mass Index (BMI) 23.8 Intake & Output: Intake and Output for Last 24 Hours 04/01/22 04/02/22 04/03/22 23:59 23:59 23:59 Intake Total 0 / 0 400 / 400 Balance 0 / 0 400 / 400 Lab / Micro Data Result Diagrams: 04/03/22 05:58 04/03/22 05:58 Labs: Laboratory Results - last 24 hr 04/02/22 13:00: PT 32.7 H, INR 3.2 04/02/22 13:00: Blood Type Cancelled, Antibody Screen Cancelled, Crossmatch See Detail 04/02/22 14:09: Blood Type O POSITIVE, Antibody Screen NEGATIVE, Crossmatch See Detail 04/03/22 05:58: WBC 2.7 L, RBC 2.93 L, Hgb 9.1 L, Hct 31.0 L, MCV 105.8 H D, MCH 31.1, MCHC 29.4 L, RDW Std Deviation 67.1 H, RDW Coeff of [place] 17.6 H, Plt Count 110 L, MPV 11.2, Immature Gran % (Auto) 0.400, Neut % (Auto) 70.3 H, Lymph % (Auto) 17.8 L, [place] % (Auto) 8.6, Eos % (Auto) 2.2, Baso % (Auto) 0.7, Absolute Neuts (auto) 1.9 L, Absolute Lymphs (auto) 0.48 L, Nucleated RBC % 0, Differential Comment SCANNED, Diff Path Review November foll, Anisocytosis 3+, Macrocytosis 3+ Radiography Diagnostic Testing: Radiology Impression Abdomen/Pelvis CT 04/02/22 15:01 IMPRESSION: Nonspecific fatty infiltrated liver and mild splenomegaly. Minor ileus with diffuse fecal retention in the colon. Nonspecific prostate enlargement Electronically Signed: Jordy Sevilla MD at 16:14 EDT , Rhythm Strip Rhythm Strip: Sinus Rhythm Rate: 54 Ectopy: PAC(s) Physical Exam Const alert and no apparent distress Resp normal respiratory effort, no retractions, no use of accessory muscles and clear to auscultation bilaterally Cardio regular rate, regular rhythm, S1 normal heart sound and S2 normal heart sound GI normal to inspection, nondistended, normoactive bowel sounds and soft to palpation Assessment & Plan Assessment/Plan (1) Acute anemia: PLAN: Macrocytic (appears chronic) Acute v chronic. Was 11.5 on 11/13, but labs in the interim. Transfused 2 units and Hg went from 7.2 to 9.1. GI consulted for endoscopy. TSH 2.48. Check B12 and folate Hold warfarin Keep Hg greater than equal to 8 (2) GI bleed: PLAN: Colonoscopy on April 03: Hemorrhoids found on perianal exam. Non- bleeding internal hemorrhoids. Five 1 to 3 mm polyps in the transverse colon, at the hepatic flexure and in the cecum, removed with a hot snare.? Resected and retrieved. Two bleeding colonic angiodysplastic lesions.? Treated with bipolar cautery. Blood in the terminal ileum. Hold warfain for 3 days (3) Stage 3a chronic kidney disease (CKD): PLAN: Creatinine has steadily worsened from September. Hold furosemide (4) Weakness: PLAN: may be due to anemia if persists, DC pregabalin, zolpidem PLAN: Plan Chronic conditions: * mechanical aortic valve-patient is currently on Coumadin, his INR today was 3.2, the Coumadin will be held for now, INR will be repeated tomorrow. Per GI, restart warfain in 3 days * history of atrial fibrillation-patient is currently in sinus rhythm at this time * chronic obstructive pulmonary disease-complicates care, management, recovery, and prognosis * history of coronary artery disease-patient has had a stent placed in the past as well as coronary artery bypass 1992. Patient's fluid intake will be monitored VTE prophylaxis: SCDs Charges/Coding Visit Charges Inpatient E&M: 84485 Subs Hosp L2
[2022-04-03] MEDS: Lactated Ringers 1,000 ML 15 ML IV (07:50)
[2022-04-03] MEDS: 0.9% Saline Lock 10 ML Syringe IV (07:52)
--- NOTE | 2022-04-03 08:00 | COLBX_PTH ---
PATIENT: REBECCA ARRIOLA I LOC: MS3 U#:[id number] AGE/SX: 81/M ROOM: FL318 RE04/02/[address]: Dr. Pancho Mantilla DO : 1940 BED: 1 DIS: 04/04/2022 SPEC #: [id number] RECD: 04/03/22 11:00 STATUS: ANYI MIGDALIA #: [id number] ANGEL: 04/03/22 08:[address]: Fazal Muir DEPT: SURGICAL PATHOLOGY RECD BY: Kianna Clarke ENTERED: 04/05/22 07:58 SP TYPE: COLON BX OTHR DR: DO Dr. Jerad Page, DO Dr. Guillermo Pritchard MD Tissues: A - COLON BIOPSY B - Cecum, NOS C - Cecum, NOS D - Transverse colon Procedures: Surgery Specimen Level IV HEADER OPERATION: [place] [place] DIAGNOSIS: Acute anemia TISSUE SUBMITTED: A - Hepatic flexure polyp, B - Cecal polyp, C - Cecal polyp, D - Transverse colon polyp MICROSCOPIC DIAGNOSIS A. Hepatic flexure polyp, biopsy: Fragments of tubular adenoma. B. Cecal polyp, biopsy: Tubular adenoma. Fragments of fecal material. C. Cecal polyp, biopsy: Fragments of tubular adenoma. D. Transverse colon polyp, biopsy: Fragments of tubular adenoma. SJ:marcella 04/06/2022 MICROSCOPIC DESCRIPTION Slides are reviewed. GROSS DESCRIPTION A - Received in fixative is one container labeled with the patient's name and designated hepatic flexure polyp. The specimen consists of multiple irregular fragments of light frausto soft tissue that in aggregate measure 1 x 0.5 x 0.1 cm. The specimen is totally submitted in one cassette. B - Received in fixative is one container labeled with the patient's name and designated cecal polyp. The specimen consists of multiple irregular fragments of light frausto soft tissue mixed with fecal material that in aggregate measure 2 x 0.3 x 0.1 cm. The specimen is totally submitted in one cassette. C - Received in fixative is one container labeled with the patient's name and designated cecal polyp. The specimen consists of multiple irregular fragments of light frausto soft tissue that in aggregate measure 1.5 x 0.5 x 0.3 cm. The specimen is totally submitted in one cassette. D - Received in fixative is one container labeled with the patient's name and designated transverse colon polyp. The specimen consists of multiple irregular fragments of light frausto soft tissue mixed with fecal material that in aggregate measure 1 x 1 x 0.1 cm. The specimen is totally submitted in one cassette. / SJ:marcella 04/05/2022 TC:1 CPT: 30347 x4
[2022-04-03 08:39] LABS: Anion Gap 7 (5-15); BUN 22 mg/dL (7-18); BUN/Creat Ratio 16.9 RATIO (10-20); Calcium,Total 8.2 mg/dL (8.5-10.1); Chloride 113 mmol/L (98-107); EST Glomerular Filtration Rate 56 mL/min (>60); Est Glom Filt Rate - Afr Amer 68 mL/min (>60); Estimated Creatinine Clearance 44.46 ml/min; Glucose 89 mg/dL (74-106); Sodium Level 146 mmol/L (136-145)
--- NOTE | 2022-04-03 09:12 | OP.CCLET_ITS ---
04/03/2022 Guillermo Pritchard MD [address] [id number] Re : Upper GI endoscopy procedure for Kash Gustabo Dear Dr. Pritchard This procedure was performed on Sunday, April 03, 2022. My impressions and recommendations are as follows: Impressions : - Normal esophagus. - Medium-sized hiatal hernia. - No gross lesions in the second portion of the duodenum. - No specimens collected. Recommendations : - [facility]. - Resume regular diet. - Post-Procedure Resumption of Anticoagulants: Restart warfarin in 3 days previous PO daily. My findings are described in the full procedure note, which is enclosed. If I can be of further assistance, please feel free to contact me at . Sincerely, Fazal Muir, 04/03/2022 9:11:07 AM This report has been signed electronically.
--- NOTE | 2022-04-03 09:12 | OP.EGD_ITS ---
Patient Name: Kash Montejo Procedure Date: 04/03/2022 7:51 AM Date of : 1940 Age: 81 Procedure: Upper GI endoscopy Indications: Iron deficiency anemia Providers: Fazal Muir DO Medicines: Monitored Anesthesia Care Patient Profile: This is an 81 year old male. Refer to note in patient chart for documentation of history and physical. Patient has symptoms of acute epigastric abdominal pain and acute nausea. Complications: No immediate complications. Procedure: Pre-Anesthesia Assessment: - Prior to the procedure, a History and Physical was performed, and patient medications and allergies were reviewed. The risks and benefits of the procedure and the sedation options and risks were discussed with the patient. All questions were answered and informed consent was obtained. Patient identification and proposed procedure were verified by the physician in the pre-procedure area. Mental Status Examination: alert and oriented. Airway Examination: normal oropharyngeal airway and neck mobility. Respiratory Examination: clear to auscultation. CV Examination: normal. Prophylactic Antibiotics: The patient does not require prophylactic antibiotics. Prior Anticoagulants: The patient has taken Coumadin (warfarin), last dose was 1 day prior to procedure. ASA Grade Assessment: III - A patient with severe systemic disease. After reviewing the risks and benefits, the patient was deemed in satisfactory condition to undergo the procedure. The anesthesia plan was to use monitored anesthesia care (MAC). Immediately prior to administration of medications, the patient was re-assessed for adequacy to receive sedatives. The heart rate, respiratory rate, oxygen saturations, blood pressure, adequacy of pulmonary ventilation, and response to care were monitored throughout the procedure. The physical status of the patient was re-assessed after the procedure. After obtaining informed consent, the endoscope was passed under direct vision. Throughout the procedure, the patient's blood pressure, pulse, and oxygen saturations were monitored continuously. The pediatric colonoscope was introduced through the mouth, and advanced to the second part of duodenum. The upper GI endoscopy was accomplished without difficulty. The patient tolerated the procedure well. Scope In: 8:17:26 AM Scope Out: 8:21:03 AM Total Procedure Duration Time 0 hours 3 minutes 37 seconds Findings: The examined esophagus was normal. A medium-sized hiatal hernia was present. No gross lesions were noted in the second portion of the duodenum. Impression: - Normal esophagus. - Medium-sized hiatal hernia. - No gross lesions in the second portion of the duodenum. - No specimens collected. Recommendation: - Return [facility] to [facility]. - Resume regular diet. - Post-Procedure Resumption of Anticoagulants: Restart warfarin in 3 days previous PO daily. Procedure Code(s): --- Professional --- 31567, Esophagogastroduodenoscopy, flexible, transoral; diagnostic, including collection of specimen(s) by brushing or washing, when performed (separate procedure) CPT copyright 2017 [employer]. All rights reserved. The codes documented in this report are preliminary and upon solar sales representative review may be revised to meet current compliance requirements. Fazal Muir DO 04/03/2022 9:11:07 AM This report has been signed electronically. Number of Addenda: 0 Note Initiated On: 04/03/2022 7:51 AM
--- NOTE | 2022-04-03 09:16 | OP.COLON_ITS ---
Patient Name: Kash Montejo Procedure Date: 04/03/2022 8:21 AM Date of : 1940 Age: 81 Procedure: Colonoscopy Indications: Iron deficiency anemia Providers: Fazal Muir DO Medicines: Monitored Anesthesia Care Patient Profile: This is an 81 year old male. Refer to note in patient chart for documentation of history and physical. Patient has symptoms of acute epigastric abdominal pain and acute nausea. Last Colonoscopy: 1 year ago. Complications: No immediate complications. Procedure: Pre-Anesthesia Assessment: - Prior to the procedure, a History and Physical was performed, and patient medications and allergies were reviewed. The risks and benefits of the procedure and the sedation options and risks were discussed with the patient. All questions were answered and informed consent was obtained. Patient identification and proposed procedure were verified by the physician in the pre-procedure area. Mental Status Examination: alert and oriented. Airway Examination: normal oropharyngeal airway and neck mobility. Respiratory Examination: clear to auscultation. CV Examination: normal. Prophylactic Antibiotics: The patient does not require prophylactic antibiotics. Prior Anticoagulants: The patient has taken Coumadin (warfarin), last dose was 1 day prior to procedure. ASA Grade Assessment: III - A patient with severe systemic disease. After reviewing the risks and benefits, the patient was deemed in satisfactory condition to undergo the procedure. The anesthesia plan was to use monitored anesthesia care (MAC). Immediately prior to administration of medications, the patient was re-assessed for adequacy to receive sedatives. The heart rate, respiratory rate, oxygen saturations, blood pressure, adequacy of pulmonary ventilation, and response to care were monitored throughout the procedure. The physical status of the patient was re-assessed after the procedure. After I obtained informed consent, the scope was passed under direct vision. Throughout the procedure, the patient's blood pressure, pulse, and oxygen saturations were monitored continuously. The pediatric colonoscope was introduced through the anus and advanced to the terminal ileum. The colonoscopy was performed without difficulty. The patient tolerated the procedure well. The quality of the bowel preparation was good. Moderate Sedation: Moderate (conscious) sedation was personally administered by an anesthesia professional. The following parameters were monitored: oxygen saturation, heart rate, blood pressure, respiratory rate, EKG, adequacy of pulmonary ventilation, and response to care. Scope In: 8:23:42 AM Scope Withdrawal Time 0 hours 27 minutes 41 seconds Scope Out: 9:05:32 AM Total Procedure Duration Time 0 hours 41 minutes 50 seconds Findings: Hemorrhoids were found on perianal exam. Non-bleeding internal hemorrhoids were found during retroflexion. The hemorrhoids were moderate and Grade II (internal hemorrhoids that prolapse but reduce spontaneously). Five sessile polyps were found in the transverse colon, hepatic flexure and cecum. The polyps were 1 to 3 mm in size. These polyps were removed with a hot snare. Resection and retrieval were complete. Verification of patient identification for the specimen was done. Estimated blood loss was minimal. Two medium-sized patchy angiodysplastic lesions with bleeding were found in the cecum. Coagulation for hemostasis using bipolar probe was successful. Estimated blood loss was minimal. The terminal ileum contained red blood. Impression: - Hemorrhoids found on perianal exam. - Non-bleeding internal hemorrhoids. - Five 1 to 3 mm polyps in the transverse colon, at the hepatic flexure and in the cecum, removed with a hot snare. Resected and retrieved. - Two bleeding colonic angiodysplastic lesions. Treated with bipolar cautery. - Blood in the terminal ileum. Recommendation: - Return [facility] to [facility]. - Resume previous diet. - Post-Procedure Resumption of Anticoagulants: Restart warfarin in 3 days 5 mg PO daily. - Await pathology results. - Repeat colonoscopy in 3 years for surveillance of multiple polyps. Procedure Code(s): --- Professional --- 33560, 59, Colonoscopy, flexible; with control of bleeding, any method 98878, Colonoscopy, flexible; with removal of tumor(s), polyp(s), or other lesion(s) by snare technique CPT copyright 2017 [employer]. All rights reserved. The codes documented in this report are preliminary and upon metal pickling equipment operator review may be revised to meet current compliance requirements. Fazal Muir DO 04/03/2022 9:16:22 AM This report has been signed electronically. Number of Addenda: 0 Note Initiated On: 04/03/2022 8:21 AM
--- NOTE | 2022-04-03 09:17 | OP.CCLET_ITS ---
04/03/2022 Guillermo Pritchard MD [address] [place] [address] Re : Colonoscopy procedure for Kash Montejo Dear Dr. Pritchard This procedure was performed on Sunday, April 03, 2022. My impressions and recommendations are as follows: Impressions : - Hemorrhoids found on perianal exam. - Non-bleeding internal hemorrhoids. - Five 1 to 3 mm polyps in the transverse colon, at the hepatic flexure and in the cecum, removed with a hot snare. Resected and retrieved. - Two bleeding colonic angiodysplastic lesions. Treated with bipolar cautery. - Blood in the terminal ileum. Recommendations : - [facility] patient [facility]. - Resume previous diet. - Post-Procedure Resumption of Anticoagulants: Restart warfarin in 3 days 5 mg PO daily. - Await pathology results. - Repeat colonoscopy in 3 years for surveillance of multiple polyps. My findings are described in the full procedure note, which is enclosed. If I can be of further assistance, please feel free to contact me at . Sincerely, Fazal Muir, 04/03/2022 9:16:22 AM This report has been signed electronically.
[2022-04-03 09:36] LABS: Partial Thromboplast Time 44.6 Seconds (24.1-36.2)
[2022-04-03] MEDS: Isosorbide Mononitrate 30 MG Tablet PO (10:41)
[2022-04-03] MEDS: Pantoprazole Sodium 40 MG Tablet PO ×2 (10:41→21:40)
[2022-04-03] MEDS: Metoprolol Tartrate 25 MG Tablet 12.5 MG PO (13:59)
--- NOTE | 2022-04-03 14:13 | CASEMGMT ---
Social Work LW/Healthcare POA both scanned into summary tab of echart, pt has daughter Emily Montejo listed as healthcare POA. ZAYRA Garay
[2022-04-03] MEDS: Ipratropium/Albuterol Sulfate 3 ML AMPUL.NEB INHALATION (19:50)
[2022-04-03] MEDS: Zolpidem Tartrate 5 MG Tablet PO (21:42)
[2022-04-04 02:30] VITALS: BP 97/41; PULSE 61; RESP 18; TEMP 37.3; O2SAT 92
[2022-04-04] MEDS: Pregabalin 75 MG Capsule PO ×2 (06:22→13:06)
[2022-04-04] MEDS: cycloBENZAPRine HCl 5 MG TABLET PO ×2 (06:22→13:07)
[2022-04-04 06:30] LABS: Absolute Lymphocyte Count 0.52 X10^3/uL (0.83-4.51); Absolute Neutrophil Count 2.6 X10^3/uL (2.0-7.7); Basophil# 0.02 X10^3/uL; Basophil% 0.6 % (0-1); Eosinophil# 0.04 X10^3/uL; Eosinophils% 1.1 % (0-5); Hematocrit 29.9 % (40-54); Hemoglobin 8.9 g/dL (13.0-16.5); Lymphocyte # 0.52 X10^3/ul (0.83-4.51); Lymphocyte % 14.9 % (19-41); Mean Corp Hgb Conc 29.8 g/dL (32-36); Mean Corpuscular Hgb 31.1 pg (27.0-32.0); Mean Corpuscular Volume 104.5 fL (80-94); Mean Platelet Vol. 11.6 fl (6.2-12.0); Monocyte# 0.27 X10^3/uL; Monocyte% 7.8 % (0-10); NRBC Flagged by Analyzer 0 % (0-5); Neutrophil # 2.62 X10^3/uL (2.7-7.7); Neutrophil % 75.3 % (47-70); POSITIVE DIFFERENTIAL YES; POSITIVE MORPHOLOGY YES; Platelet Count 114 K/mm3 (150-450); RBC Distribution Width CV 17.4 % (11.6-14.6); RBC Distribution Width SD 67.3 fl (35.1-43.9); Red Blood Count 2.86 M/mm3 (4.6-6.2); White Blood Count 3.5 K/mm3 (4.4-11.0)
[2022-04-04 06:34] LABS: Differential Indicated SCAN CRITERIA MET
[2022-04-04 06:50] LABS: Anisocytosis 2+; Differential Comment SCANNED; Macrocytosis 1+; Polychromasia 1+
[2022-04-04 06:55] LABS: Anion Gap 5 (5-15); BUN 23 mg/dL (7-18); Calcium,Total 8.5 mg/dL (8.5-10.1); Chloride 117 mmol/L (98-107); Creatinine, Serum 1.28 mg/dL (0.70-1.30); EST Glomerular Filtration Rate 57 mL/min (>60); Est Glom Filt Rate - Afr Amer 69 mL/min (>60); Estimated Creatinine Clearance 45.15 ml/min; Glucose 109 mg/dL (74-106); Potassium 4.2 mmol/L (3.5-5.1); Sodium Level 147 mmol/L (136-145)
[2022-04-04] MEDS: Ipratropium/Albuterol Sulfate 3 ML AMPUL.NEB INHALATION ×2 (07:38→13:31)
[2022-04-04 07:40] VITALS: PULSE 64; RESP 18
[2022-04-04 08:30] VITALS: BP 108/54; PULSE 63; RESP 18; TEMP 36.4; O2SAT 96
--- NOTE | 2022-04-04 08:44 | PN_ITS ---
Subjective Subjective Patient underwent an EGD and colonoscopy yesterday. He is not have any abdominal pain. He is not have any nausea. He is tolerating a diet. No signs of bleeding overnight. Objective Data Objective Data Vital Signs: Vital Signs Temp Pulse Resp BP Pulse Ox O2 Del Method 99.1 F 64 18 97/41 L 92 Room Air 04/04/22 02:30 04/04/22 07:40 04/04/22 07:40 04/04/22 02:30 04/04/22 02:30 04/04/22 02:30 Oxygen Delivery Method Room Air Weight: 166 lb 7.184 oz Body Mass Index (BMI) 23.8 Intake & Output: Intake and Output for Last 24 Hours 04/02/22 04/03/22 04/04/22 23:59 23:59 23:59 Intake Total 0 / 0 640 / 940 1400 / 1400 Output Total 400 / 400 Balance 0 / 0 240 / 540 1400 / 1400 Lab / Micro Data Result Diagrams: 04/04/22 06:06 04/04/22 06:06 Labs: Laboratory Results - last 24 hr 04/03/22 09:20: APTT 44.6 H 04/04/22 06:06: WBC 3.5 L, RBC 2.86 L, Hgb 8.9 L, Hct 29.9 L, MCV 104.5 H, MCH 31.1, MCHC 29.8 L, RDW Std Deviation 67.3 H, RDW Coeff of [place] 17.4 H, Plt Count 114 L, MPV 11.6, Immature Gran % (Auto) 0.300, Neut % (Auto) 75.3 H, Lymph % (Auto) 14.9 L, [place] % (Auto) 7.8, Eos % (Auto) 1.1, Baso % (Auto) 0.6, Absolute Neuts (auto) 2.6, Absolute Lymphs (auto) 0.52 L, Nucleated RBC % 0, Differential Comment SCANNED, Diff Path Review May foll, Polychromasia 1+, Anisocytosis 2+, Macrocytosis 1+ 04/04/22 06:06: Sodium 147 H, Potassium 4.2, Chloride 117 H, Carbon Dioxide 25.0, Anion Gap 5, BUN 23 H, Creatinine 1.28, Estim Creat Clear Calc 45.15, Est GFR (MDRD) Af Amer 69, Est GFR (MDRD) Non-Af 57 L, BUN/Creatinine Ratio 18.0, Glucose 109 H, Calcium 8.5 Rhythm Strip Rhythm Strip: Sinus Rhythm Rate: 54 Ectopy: PAC(s) Physical Exam Const alert and no apparent distress Resp normal respiratory effort, no retractions, no use of accessory muscles and clear to auscultation bilaterally Cardio regular rate, regular rhythm, S1 normal heart sound and S2 normal heart sound GI normal to inspection, nondistended, normoactive bowel sounds and soft to palpation Assessment & Plan Assessment/Plan (1) GI bleed: PLAN: Patient had angiodysplasia that was seen in the colon along with multiple polyps that have bleeding stigmata. He is high risk for recurrent GI bleeding secondary to malnutrition and poor healing, thrombocytopenia and the need for anticoagulation secondary to aortic valve replacement. His hemoglobin seems to be stable. I would meant to check his iron studies and keep his ferritin above 250 via iron transfusion and oral iron. Patient is okay to go back on anticoagulation tomorrow with Coumadin. Charges/Coding Visit Charges Inpatient E&M: 20140 Subs Hosp L2
--- NOTE | 2022-04-04 09:20 | PN.HOSP_ITS ---
Subjective Subjective Feeling well. No events overnight. Tolerating diet. Objective Data Objective Data Vital Signs: Vital Signs Temp Pulse Resp BP Pulse Ox O2 Del Method 37.3 C 64 18 97/41 L 92 Room Air 04/04/22 02:30 04/04/22 07:40 04/04/22 07:40 04/04/22 02:30 04/04/22 02:30 04/04/22 02:30 Oxygen Delivery Method Room Air Weight: 75.5 kg Body Mass Index (BMI) 23.8 Intake & Output: Intake and Output for Last 24 Hours 04/02/22 04/03/22 04/04/22 23:59 23:59 23:59 Intake Total 0 / 0 640 / 940 1400 / 1400 Output Total 400 / 400 Balance 0 / 0 240 / 540 1400 / 1400 Lab / Micro Data Result Diagrams: 04/04/22 06:06 04/04/22 06:06 Labs: Laboratory Results - last 24 hr 04/03/22 09:20: APTT 44.6 H 04/04/22 06:06: WBC 3.5 L, RBC 2.86 L, Hgb 8.9 L, Hct 29.9 L, MCV 104.5 H, MCH 31.1, MCHC 29.8 L, RDW Std Deviation 67.3 H, RDW Coeff of [place] 17.4 H, Plt Count 114 L, MPV 11.6, Immature Gran % (Auto) 0.300, Neut % (Auto) 75.3 H, Lymph % (Auto) 14.9 L, [place] % (Auto) 7.8, Eos % (Auto) 1.1, Baso % (Auto) 0.6, Absolute Neuts (auto) 2.6, Absolute Lymphs (auto) 0.52 L, Nucleated RBC % 0, Differential Comment SCANNED, Diff Path Review May foll, Polychromasia 1+, Anisocytosis 2+, Macrocytosis 1+ 04/04/22 06:06: Sodium 147 H, Potassium 4.2, Chloride 117 H, Carbon Dioxide 25.0, Anion Gap 5, BUN 23 H, Creatinine 1.28, Estim Creat Clear Calc 45.15, Est GFR (MDRD) Af Amer 69, Est GFR (MDRD) Non-Af 57 L, BUN/Creatinine Ratio 18.0, Glucose 109 H, Calcium 8.5 Rhythm Strip Rhythm Strip: Sinus Rhythm Rate: 54 Ectopy: PAC(s) Physical Exam Const alert and no apparent distress Cardio regular rate, regular rhythm, S1 normal heart sound and S2 normal heart sound GI normal to inspection, nondistended, normoactive bowel sounds, soft to palpation, non-tender and non-distended Extremity normal to inspection Assessment & Plan Assessment/Plan (1) Acute anemia: PLAN: Macrocytic (appears chronic) Acute v chronic. Was 11.5 on 11/13, but labs in the interim. Transfused 2 units and Hg went from 7.2 to 9.1. Currently stable GI consulted for endoscopy. TSH 2.48. B12 304. Iron low at 37. Hold warfarin Keep Hg greater than equal to 8 Would continue with ferrous sulfate every other day for the next 2 weeks (2) GI bleed: PLAN: Colonoscopy on April 03: Hemorrhoids found on perianal exam. Non- bleeding internal hemorrhoids. Five 1 to 3 mm polyps in the transverse colon, at the hepatic flexure and in the cecum, removed with a hot snare.? Resected and retrieved. Two bleeding colonic angiodysplastic lesions.? Treated with bipolar cautery. Blood in the terminal ileum. Hold warfain for 3 days (3) Stage 3a chronic kidney disease (CKD): PLAN: Creatinine has steadily worsened from September. Hold furosemide Currently improved (4) Weakness: PLAN: may be due to anemia if persists, DC pregabalin, zolpidem PLAN: Plan Chronic conditions: * mechanical aortic valve-patient is currently on Coumadin, his INR today was 3.2, the Coumadin will be held for now, INR will be repeated tomorrow. Per GI, restart warfain in 3 days * history of atrial fibrillation-patient is currently in sinus rhythm at this time * chronic obstructive pulmonary disease-complicates care, management, recovery, and prognosis * history of coronary artery disease-patient has had a stent placed in the past as well as coronary artery bypass 1992. Patient's fluid intake will be monitored DC home
[2022-04-04] MEDS: Isosorbide Mononitrate 30 MG Tablet PO (10:23)
[2022-04-04 10:24] VITALS: BP 108/54; PULSE 63
[2022-04-04] MEDS: Pantoprazole Sodium 40 MG Tablet PO (10:24)
[2022-04-04] MEDS: Metoprolol Tartrate 25 MG Tablet 12.5 MG PO (10:24)
--- NOTE | 2022-04-04 10:35 | DCINST_ITS ---
Discharge Instructions Diet Discharge Diet: Low fat / Low cholesterol Dressing / Incision Call your doctor if you observe: - (Bloody stools. Dark tarry stools.) Follow Up Care Test Results: Test results from this visit will be discussed in further detail at your follow- up appointment, if applicable. Discharge Plan Admission Admit Date/Time: 04/02/22 16:04 Primary Reason for Your Visit: GI bleed. Acute blood loss anemia. Attending Provider: Pancho Mantilla Primary Care Provider: Guillermo Pritchard Consulting Providers: Jerad Nichole Discharge Orders/Prescriptions Prescriptions: Continued isosorbide mononitrate 30 mg tablet extended release 24 hr 30 mg PO QAM metoprolol tartrate 25 mg tablet 12.5 mg PO BID nitroglycerin 0.4 mg tablet, sublingual 0.4 mg SUBLINGUAL Q5M PRN (Reason: Chest Pain) Qty: 30 0RF Label Comments: chest pain ipratropium-albuterol 0.5 mg-3 mg(2.5 mg base)/3 mL solution for nebulization 3 ml INHALATION Q6H PRN (Reason: sob/wheezing) Label Comments: breathing rosuvastatin 40 MG tablet 40 mg PO QHS Label Comments: cholesterol pantoprazole 40 mg tablet,delayed release (DR/EC) 40 mg PO BID Label Comments: acid reflux cholecalciferol (vitamin D3) 1,000 UNIT tablet 2,000 unit PO DAILY Label Comments: supplement albuterol sulfate 90 MCG aerosol powdr breath activated 1 puff INHALATION Q4H PRN PRN (Reason: Wheezing) Label Comments: breathing folic acid 1 MG tablet 1 mg PO QHS zolpidem 10 MG tablet 10 mg PO QHS pregabalin 75 MG capsule 75 mg PO TID Stiolto Respimat 2.5-2.5 mcg/actuation Mist 1 puff INHALATION DAILY buprenorphine 10 mcg/hour patch weekly 10 mcg transdermal QWEEK Label Comments: APPLY 1 (ONE) patch transdermally and wear for 1 (ONE) week Changed ferrous sulfate 325 MG tablet 325 mg PO QODAY Qty: 20 0RF Label Comments: iron supplement Held aspirin 81 MG tablet 81 mg PO DAILY@0800 Hold Instructions: Resume on 04/07/22. Label Comments: heart health WAS TOLD TO STOP FOR SURGERY warfarin 7.5 mg tablet 7.5 mg PO .COMPLEX Qty: 90 3RF Hold Instructions: Resume on 04/07/22. Protocol: Dose Management Condition: Tuesday Dose/Route: 5 mg Instruction: 1 x 5 mg tablet Condition: Tuesday Dose/Route: 5 mg Instruction: 1 x 5 mg tablet Condition: Tuesday Dose/Route: 5 mg Instruction: 1 x 5 mg tablet Condition: Tuesday Dose/Route: 5 mg Instruction: 1 x 5 mg tablet Condition: Dose/Route: 5 mg Instruction: 1 x 5 mg tablet Condition: Tuesday Dose/Route: 5 mg Instruction: 1 x 5 mg tablet Condition: Tuesday Dose/Route: 5 mg Instruction: 1 x 5 mg tablet Protocol Text: Adjustment Start Date: Tuesday03/24/22 INR Value: 3.4 INR Date: 03/24/22 Recheck Date: 04/07/22 Rx Instructions: 7.5 mg PO Daily Tuesday through Tuesday or as directed (takes a 5 mg tablet on Sat and Sun); Dose changes often so give 90 pills warfarin 5 mg tablet 5 mg PO .COMPLEX Qty: 45 3RF Hold Instructions: Resume on 04/10/22. Protocol: Dose Management Condition: Tuesday Dose/Route: 5 mg Instruction: 1 x 5 mg tablet Condition: Tuesday Dose/Route: 5 mg Instruction: 1 x 5 mg tablet Condition: Tuesday Dose/Route: 5 mg Instruction: 1 x 5 mg tablet Condition: Tuesday Dose/Route: 5 mg Instruction: 1 x 5 mg tablet Condition: Dose/Route: 5 mg Instruction: 1 x 5 mg tablet Condition: Tuesday Dose/Route: 5 mg Instruction: 1 x 5 mg tablet Condition: Tuesday Dose/Route: 5 mg Instruction: 1 x 5 mg tablet Protocol Text: Adjustment Start Date: Tuesday03/24/22 INR Value: 3.4 INR Date: 03/24/22 Recheck Date: 04/07/22 Rx Instructions: 5 mg PO On Tuesday and Tuesday or as directed (takes a 7.5 mg tablet Tuesday through Tuesday); Dose changes often so give 90 pills Discontinued furosemide 40 MG tablet 40 mg PO DAILY Referrals / Follow Up: Guillermo Pritchard MD [Primary Care Provider] - Within 2 Weeks Fazal Muir DO [Med Staff - Active Staff] - Within 3 Months Disposition Disposition (needs filled in before D/C Order can be placed): Home, Self Care
--- NOTE | 2022-04-04 10:41 | DS.PCM_ITS ---
Providers Date of Admission: 04/02/22 Primary Care Physician: Dr. Guillermo Pritchard MD Consultations 04/02/22 16:14 Consult: Gastroenterology Routine Consulting Provider: [facility] Reason for Consult: Anemia EMERGENT Consult: No MD Notified: Yes Date Notified: 04/02/22 Time Notified: 16:08 Method of Notification: Verbal Reason For Visit: ANEMIA Diagnosis Discharge Diagnosis (1) Acute anemia: Status: Acute Code(s): D64.9 - Anemia, unspecified Plan: Macrocytic (appears chronic) Acute v chronic. Was 11.5 on 11/13, but labs in the interim. Transfused 2 units and Hg went from 7.2 to 9.1. Currently stable GI consulted for endoscopy. TSH 2.48. B12 304. Iron low at 37. Hold warfarin for the next 3 days. Keep Hg greater than equal to 8 Would continue with ferrous sulfate every other day for better absorption. Patient was taking it twice daily. (2) GI bleed: Status: Acute Code(s): K92.2 - Gastrointestinal hemorrhage, unspecified Plan: Colonoscopy on April 03: Hemorrhoids found on perianal exam. Non-bleeding internal hemorrhoids. Five 1 to 3 mm polyps in the transverse colon, at the hepatic flexure and in the cecum, removed with a hot snare.? Resected and retrieved. Two bleeding colonic angiodysplastic lesions.? Treated with bipolar cautery. Blood in the terminal ileum. Hold warfain for 3 days (3) Stage 3a chronic kidney disease (CKD): Status: Chronic Code(s): N18.31 - Chronic kidney disease, stage 3a Plan: Creatinine has steadily worsened from September. Hold furosemide Currently improved (4) Weakness: Status: Acute Code(s): R53.1 - Weakness Plan: may be due to anemia if persists, DC pregabalin, zolpidem Plan Chronic conditions: * mechanical aortic valve-patient is currently on Coumadin, his INR today was 3.2, the Coumadin will be held for now, INR will be repeated tomorrow. Per GI, restart warfain in 3 days * history of atrial fibrillation-patient is currently in sinus rhythm at this time * chronic obstructive pulmonary disease-complicates care, management, recovery, and prognosis * history of coronary artery disease-patient has had a stent placed in the past as well as coronary artery bypass 1993. Patient's fluid intake will be monitored DC home Medications at Discharge Home Medications rosuvastatin 40 mg tablet 40 mg PO QHS cholesterol 07/15/13 albuterol sulfate 90 mcg/actuation breath activated powder inhaler 1 puff inhalation Q4H PRN PRN Wheezing 09/25/15 cholecalciferol (vitamin D3) 25 mcg (1,000 unit) tablet 2,000 unit PO DAILY SUPPLEMENT 09/25/15 aspirin 81 mg tablet,delayed release 81 mg PO DAILY@0800 HEART HEALTH 06/24/16 folic acid 1 mg tablet 1 mg PO QHS SUPPLEMENT 06/24/16 isosorbide mononitrate 30 mg tablet,extended release 24 hr 30 mg PO QAM BP 11/21/17 pantoprazole 40 mg tablet,delayed release 40 mg PO BID ACID REFLUX 01/02/18 zolpidem 10 mg tablet 10 mg PO QHS SLEEP 05/26/18 pregabalin 75 mg capsule 75 mg PO TID pain 07/28/18 metoprolol tartrate 25 mg tablet 12.5 mg PO BID Dose increased for Rapid Heart Rate 11/26/19 nitroglycerin 0.4 mg sublingual tablet 0.4 mg sublingual Q5M PRN Chest Pain #30 tabs 05/25/21 tiotropium 2.5 mcg-olodaterol 2.5 mcg/actuation mist for inhalation (Stiolto Respimat) 1 puff inhalation DAILY Check with primary doctor 06/18/21 buprenorphine 10 mcg/hour weekly transdermal patch 10 mcg transdermal QWEEK pain 08/16/21 ipratropium 0.5 mg-albuterol 3 mg (2.5 mg base)/3 mL nebulization soln 3 ml inhalation Q6H PRN sob/wheezing 11/25/21 warfarin 5 mg tablet 5 mg PO .COMPLEX #45 tabs 01/27/22 warfarin 7.5 mg tablet 7.5 mg PO .COMPLEX #90 tabs 01/27/22 ferrous sulfate 325 mg (65 mg iron) tablet 325 mg PO QODAY IRON SUPPLEMENT #20 tabs 04/04/22 Hospital Course Operations None Procedures Colonoscopy and EGD Summary of Care Provided Minutes Spent on Discharge: 32 Weight / BMI Weight Weight: 75.5 kg Body Mass Index (BMI) 23.8 ABG / Lab / Microbiology Data Result Diagrams: 04/04/22 06:06 04/04/22 06:06 Laboratory: Laboratory Results - last 24 hr 04/03/22 09:20: APTT 44.6 H 04/04/22 06:06: WBC 3.5 L, RBC 2.86 L, Hgb 8.9 L, Hct 29.9 L, MCV 104.5 H, MCH 31.1, MCHC 29.8 L, RDW Std Deviation 67.3 H, RDW Coeff of [place] 17.4 H, Plt Count 114 L, MPV 11.6, Immature Gran % (Auto) 0.300, Neut % (Auto) 75.3 H, Lymph % (Auto) 14.9 L, [place] % (Auto) 7.8, Eos % (Auto) 1.1, Baso % (Auto) 0.6, Absolute Neuts (auto) 2.6, Absolute Lymphs (auto) 0.52 L, Nucleated RBC % 0, Differential Comment SCANNED, Diff Path Review May foll, Polychromasia 1+, Anisocytosis 2+, Macrocytosis 1+ 04/04/22 06:06: Sodium 147 H, Potassium 4.2, Chloride 117 H, Carbon Dioxide 25.0, Anion Gap 5, BUN 23 H, Creatinine 1.28, Estim Creat Clear Calc 45.15, Est GFR (MDRD) Af Amer 69, Est GFR (MDRD) Non-Af 57 L, BUN/Creatinine Ratio 18.0, Glucose 109 H, Calcium 8.5 D/C Instructions Discharge Diet: Low fat / Low cholesterol Call your doctor if you observe: - (Bloody stools. Dark tarry stools.) Meaningful Use Info Meaningful Use Diagnoses (Choose all that apply): None applicable Discharge Plan Admission Admit Date/Time: 04/02/22 16:04 Primary Reason for Your Visit: GI bleed. Acute blood loss anemia. Attending Provider: Pancho Mantilla Primary Care Provider: Guillermo Pritchard Consulting Providers: Jerad Nichole Discharge Orders/Prescriptions Prescriptions: Continued isosorbide mononitrate 30 mg tablet extended release 24 hr 30 mg PO QAM metoprolol tartrate 25 mg tablet 12.5 mg PO BID nitroglycerin 0.4 mg tablet, sublingual 0.4 mg SUBLINGUAL Q5M PRN (Reason: Chest Pain) Qty: 30 0RF Label Comments: chest pain ipratropium-albuterol 0.5 mg-3 mg(2.5 mg base)/3 mL solution for nebulization 3 ml INHALATION Q6H PRN (Reason: sob/wheezing) Label Comments: breathing rosuvastatin 40 MG tablet 40 mg PO QHS Label Comments: cholesterol pantoprazole 40 mg tablet,delayed release (DR/EC) 40 mg PO BID Label Comments: acid reflux cholecalciferol (vitamin D3) 1,000 UNIT tablet 2,000 unit PO DAILY Label Comments: supplement albuterol sulfate 90 MCG aerosol powdr breath activated 1 puff INHALATION Q4H PRN PRN (Reason: Wheezing) Label Comments: breathing folic acid 1 MG tablet 1 mg PO QHS zolpidem 10 MG tablet 10 mg PO QHS pregabalin 75 MG capsule 75 mg PO TID Stiolto Respimat 2.5-2.5 mcg/actuation Mist 1 puff INHALATION DAILY buprenorphine 10 mcg/hour patch weekly 10 mcg transdermal QWEEK Label Comments: APPLY 1 (ONE) patch transdermally and wear for 1 (ONE) week Changed ferrous sulfate 325 MG tablet 325 mg PO QODAY Qty: 20 0RF Label Comments: iron supplement Held aspirin 81 MG tablet 81 mg PO DAILY@0800 Hold Instructions: Resume on 04/07/22. Label Comments: heart health WAS TOLD TO STOP FOR SURGERY warfarin 7.5 mg tablet 7.5 mg PO .COMPLEX Qty: 90 3RF Hold Instructions: Resume on 04/07/22. Protocol: Dose Management Condition: Tuesday Dose/Route: 5 mg Instruction: 1 x 5 mg tablet Condition: Tuesday Dose/Route: 5 mg Instruction: 1 x 5 mg tablet Condition: Tuesday Dose/Route: 5 mg Instruction: 1 x 5 mg tablet Condition: Tuesday Dose/Route: 5 mg Instruction: 1 x 5 mg tablet Condition: Dose/Route: 5 mg Instruction: 1 x 5 mg tablet Condition: Tuesday Dose/Route: 5 mg Instruction: 1 x 5 mg tablet Condition: Tuesday Dose/Route: 5 mg Instruction: 1 x 5 mg tablet Protocol Text: Adjustment Start Date: Tuesday03/24/22 INR Value: 3.4 INR Date: 03/24/22 Recheck Date: 04/07/22 Rx Instructions: 7.5 mg PO Daily Tuesday through Tuesday or as directed (takes a 5 mg tablet on Sat and Sun); Dose changes often so give 90 pills warfarin 5 mg tablet 5 mg PO .COMPLEX Qty: 45 3RF Hold Instructions: Resume on 04/10/22. Protocol: Dose Management Condition: Tuesday Dose/Route: 5 mg Instruction: 1 x 5 mg tablet Condition: Tuesday Dose/Route: 5 mg Instruction: 1 x 5 mg tablet Condition: Tuesday Dose/Route: 5 mg Instruction: 1 x 5 mg tablet Condition: Tuesday Dose/Route: 5 mg Instruction: 1 x 5 mg tablet Condition: Dose/Route: 5 mg Instruction: 1 x 5 mg tablet Condition: Tuesday Dose/Route: 5 mg Instruction: 1 x 5 mg tablet Condition: Tuesday Dose/Route: 5 mg Instruction: 1 x 5 mg tablet Protocol Text: Adjustment Start Date: Tuesday03/24/22 INR Value: 3.4 INR Date: 03/24/22 Recheck Date: 04/07/22 Rx Instructions: 5 mg PO On Tuesday and Tuesday or as directed (takes a 7.5 mg tablet Tuesday through Tuesday); Dose changes often so give 90 pills Discontinued furosemide 40 MG tablet 40 mg PO DAILY Referrals / Follow Up: Guillermo Pritchard MD [Primary Care Provider] - Within 2 Weeks Fazal Muir DO [Med Staff - Active Staff] - Within 3 Months Disposition Disposition (needs filled in before D/C Order can be placed): Home, Self Care Charges/Coding Visit Charges Inpatient E&M: 04639 Disch Hosp
[2022-04-04 13:15] VITALS: BP 120/76; PULSE 51; RESP 18; TEMP 36.5; O2SAT 93
[2022-04-04 13:32] VITALS: PULSE 53; RESP 20
[2022-04-05 13:11] LABS: Pathologist Review Reviewed
[2022-04-05 13:11] LABS: Pathologist Review Reviewed
== END 2022-04-04 14:09 | disposition home or self-care (01) ==
LOC: ED 13:59 → MS3 15:37
PROVIDERS: Anesthesiology; Internal Medicine Gastroenterology; Admitting Provider Internal Medicine; Emergency Provider Emergency Medicine; PCP Family Medicine
PROC: 0DJD8ZZ Inspection of Lower Intestinal Tract, Via Natural or Artificial Opening Endoscopic (ICD-10-PCS; CPT 45378; principal; 2022-04-03 07:55)
DX: K55.21 Angiodysplasia of colon with hemorrhage (principal); J44.9 Chronic obstructive pulmonary disease, unspecified; I13.0 Hypertensive heart and chronic kidney disease with heart failure and stage 1 through stage 4 chronic kidney disease, or unspecified chronic kidney disease; I50.22 Chronic systolic (congestive) heart failure; I27.21 Secondary pulmonary arterial hypertension; I48.0 Paroxysmal atrial fibrillation; N18.31 Chronic kidney disease, stage 3a; D62 Acute posthemorrhagic anemia; K92.2 Gastrointestinal hemorrhage, unspecified; I25.5 Ischemic cardiomyopathy; I25.10 Atherosclerotic heart disease of native coronary artery without angina pectoris; Z79.82 Long term (current) use of aspirin; D12.3 Benign neoplasm of transverse colon; G89.4 Chronic pain syndrome; Z79.01 Long term (current) use of anticoagulants; K44.9 Diaphragmatic hernia without obstruction or gangrene; E78.00 Pure hypercholesterolemia, unspecified; K64.1 Second degree hemorrhoids; Z79.899 Other long term (current) drug therapy; Z95.2 Presence of prosthetic heart valve; F17.210 Nicotine dependence, cigarettes, uncomplicated; D12.0 Benign neoplasm of cecum
CPT/HCPCS: 45385; 43235; 45382; 36415; 36430; 74177; 80048; 85025; 85610; 85730; 86850; 86900; 86901; 86902; 86920; 86922; 88305; 93005; 94640; 97162; 97165; 99218; 99284; 99406; J7040; J7120; P9016; Q9967; A4216; G0378

== ENCOUNTER → 2022-04-02 | Outpatient (CLI) | payer MEDICARE, SELFPAY ==
--- NOTE | 2022-04-02 08:58 | RAD_ITS ---
STUDY: X-RAY - LEFT KNEE REASON FOR EXAM: Male, 81 years old. PAIN TECHNIQUE: 3 view(s) of the knee. COMPARISON: None. FINDINGS: Normal visualized distal femur. Normal visualized proximal tibia and fibula. Normal proximal tibiofibular articulation. Normal medial femorotibial compartment. Normal lateral femorotibial compartment. Normal patellofemoral articulation. There are atherosclerotic calcifications. RAD/Knee 3 Views IMPRESSION: Normal x-ray examination of the knee. Electronically Signed: Tyler Early MD at 12:39 EDT ,
--- NOTE | 2022-04-02 08:59 | RAD_ITS ---
STUDY: X-RAY - RIGHT KNEE REASON FOR EXAM: Male, 81 years old. PAIN TECHNIQUE: 3 view(s) of the knee. COMPARISON: None. FINDINGS: Normal visualized distal femur. Normal visualized proximal tibia and fibula. Normal proximal tibiofibular articulation. There is mild degenerative arthrosis of the medial femorotibial compartment. There is calcification of the medial meniscus in keeping with chondrocalcinosis. Normal lateral femorotibial compartment. Normal patellofemoral articulation. There are atherosclerotic calcifications. RAD/Knee 3 Views IMPRESSION: Degenerative arthrosis. Calcification of the medial meniscus in keeping with chondrocalcinosis. Electronically Signed: Tyler Early MD at 12:38 EDT ,
[2022-04-02 10:07] LABS: Absolute Lymphocyte Count 0.37 X10^3/uL (0.83-4.51); Absolute Neutrophil Count 2.8 X10^3/uL (2.0-7.7); Basophil# 0.03 X10^3/uL; Basophil% 0.9 % (0-1); Eosinophil# 0.03 X10^3/uL; Eosinophils% 0.9 % (0-5); Hematocrit 24.8 % (40-54); Hemoglobin 7.2 g/dL (13.0-16.5); Lymphocyte # 0.37 X10^3/ul (0.83-4.51); Lymphocyte % 10.7 % (19-41); Mean Corpuscular Hgb 32.9 pg (27.0-32.0); Mean Corpuscular Volume 113.2 fL (80-94); Monocyte# 0.26 X10^3/uL; Monocyte% 7.5 % (0-10); NRBC Flagged by Analyzer 0 % (0-5); Neutrophil # 2.76 X10^3/uL (2.7-7.7); Neutrophil % 79.7 % (47-70); POSITIVE DIFFERENTIAL YES; POSITIVE MORPHOLOGY YES; Platelet Count 121 K/mm3 (150-450); RBC Distribution Width CV 17.4 % (11.6-14.6); RBC Distribution Width SD 71.2 fl (35.1-43.9); Red Blood Count 2.19 M/mm3 (4.6-6.2); White Blood Count 3.5 K/mm3 (4.4-11.0)
[2022-04-02 10:11] LABS: Differential Indicated SCAN CRITERIA MET
[2022-04-02 10:52] LABS: Anisocytosis 1+; Platelet Estimate ADEQUATE (ADEQ)
[2022-04-02 10:53] LABS: Macrocytosis 1+; Polychromasia RARE
[2022-04-02 10:57] LABS: Anion Gap 7 (5-15); BUN 30 mg/dL (7-18); BUN/Creat Ratio 16.4 RATIO (10-20); Calcium,Total 8.5 mg/dL (8.5-10.1); Chloride 112 mmol/L (98-107); Creatinine, Serum 1.83 mg/dL (0.70-1.30); EST Glomerular Filtration Rate 38 mL/min (>60); Est Glom Filt Rate - Afr Amer 46 mL/min (>60); Glucose 165 mg/dL (74-106); Sodium Level 146 mmol/L (136-145); Thyroid Stim Hormone (TSH) 2.48 uIU/mL (0.358-3.74)
[2022-04-05 09:05] LABS: Pathologist Review Reviewed
== END | disposition home or self-care (01) ==
PROVIDERS: PCP Family Medicine; Referring Provider Family Medicine; Visit Provider Family Medicine
DX: M25.561 Pain in right knee (principal); M25.562 Pain in left knee; R53.83 Other fatigue
CPT/HCPCS: 36415; 73562; 80048; 84443; 85025

== ENCOUNTER 2022-04-06 15:43 | Emergency (ER) | payer OTHER, SELFPAY ==
[2022-04-06 15:44] VITALS: BP 101/39; PULSE 55; RESP 15; TEMP 36.8; O2SAT 96; BMI 23.6
--- NOTE | 2022-04-06 16:20 | EX.ED.DYSGE1 ---
HPI History of Present Illness Chief Complaint: Weakness Informant: patient and family Onset/Context/Timing Onset: Today Current Severity: Moderate Maximum Severity: Moderate Narrative Narrative: Patient presents secondary to generalized weakness. He has a history of chronic blood loss. He was recently admitted to the hospital for weakness and blood transfusion. He was discharged 2 days ago. Patient states today he does feels very weak, almost worse than he was when he was admitted to the hospital last weekend. He denies focal pain but does states his arms feel very heavy and difficult to move. 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 loss Arthritis Atherosclerotic heart disease of [place] coronary artery without angina pectoris Back pain Back pain due to injury Cardiology follow-up encounter CHF (congestive heart failure) Chronic cough Chronic pain syndrome Chronic systolic (congestive) heart failure COPD (chronic obstructive pulmonary disease) COPD (chronic obstructive pulmonary disease) Difficulty swallowing Essential hypertension Gastric reflux Heart attack High cholesterol History of atrial fibrillation History of CHF (congestive heart failure) History of echocardiogram History of edema History of GI bleed History of heart attack History of pain when walking History of stress test Hx of fracture of ankle Hx of fracture of ankle Hypertension Injury of back Injury of head and neck Irregular heartbeat Ischemic cardiomyopathy senior living current use of anticoagulant 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 Paroxysmal atrial fibrillation Pure hypercholesterolemia Restless legs Secondary pulmonary arterial hypertension Shortness of breath on exertion Smoker Spinal stenosis of lumbar region Stage 3a chronic kidney disease (CKD) Stroke TIA (transient ischemic attack) Tobacco use disorder Uncontrolled pain Wears dentures Wears glasses Home Medications rosuvastatin 40 mg tablet 40 mg PO QHS cholesterol 07/15/13 [History Last Taken 04/05/22] albuterol sulfate 90 mcg/actuation breath activated powder inhaler 2 puff inhalation Q4H PRN PRN Wheezing 09/25/15 [History Last Taken 04/06/22] cholecalciferol (vitamin D3) 25 mcg (1,000 unit) tablet 2,000 unit PO DAILY SUPPLEMENT 09/25/15 [History Last Taken 04/06/22] aspirin 81 mg tablet,delayed release 81 mg PO DAILY@0800 HEART HEALTH 06/24/16 [History Last Taken 04/06/22] folic acid 1 mg tablet 1 mg PO QHS SUPPLEMENT 12/08/16 [History Last Taken 04/05/22] isosorbide mononitrate 30 mg tablet,extended release 24 hr 30 mg PO DAILY BP 11/21/17 [History Last Taken 04/06/22] pantoprazole 40 mg tablet,delayed release 40 mg PO BID ACID REFLUX 01/02/18 [History Last Taken 04/06/22] zolpidem 10 mg tablet 10 mg PO QHS SLEEP 05/26/18 [History Last Taken 04/05/22] pregabalin 75 mg capsule 75 mg PO TID pain 07/28/18 [History Last Taken 04/06/22] metoprolol tartrate 25 mg tablet 12.5 mg PO BID Dose increased for Rapid Heart Rate 11/26/19 [History Last Taken 04/06/22] nitroglycerin 0.4 mg sublingual tablet 0.4 mg sublingual Q5M PRN Chest Pain #30 tabs 05/25/21 [Rx Last Taken Unknown] tiotropium 2.5 mcg-olodaterol 2.5 mcg/actuation mist for inhalation ([employer] Respimat) 1 puff inhalation BID Check with primary doctor 06/18/21 [History Last Taken 04/06/22] buprenorphine 10 mcg/hour weekly transdermal patch 10 mcg transdermal FULLER pain 08/16/21 [History Last Taken 04/04/22] ipratropium 0.5 mg-albuterol 3 mg (2.5 mg base)/3 mL nebulization soln 3 ml inhalation 4X/DAY 11/25/21 [History Last Taken 04/06/22] ferrous sulfate 325 mg (65 mg iron) tablet 325 mg PO BID IRON SUPPLEMENT 04/06/22 [History Last Taken 04/06/22] warfarin 5 mg tablet 5 mg PO DAILY 04/06/22 [History Last Taken 04/05/22] Allergy/AdvReac Type Severity Reaction Status Date / Time No Known Allergies Allergy Verified 04/02/22 12:25 Family History Son , age 44 from [place] CAD (coronary artery disease) Myocardial infarction Sudden cardiac Brother CAD (coronary artery disease) Pt states all nine of his siblings have heart problems Sister CAD (coronary artery disease) Patient states all nine of his siblings have heart problems Surgical History H/O cardiac catheterization History of coronary artery stent placement (~06/28/11) History of esophagogastroduodenoscopy (EGD) (~10/2021) History of left heart catheterization History of lumbar fusion History of mechanical aortic valve replacement (~03/27/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) Status post cardiac surgery Social History Smoking Status: Current every day smoker tobacco type: cigarettes alcohol intake: never substance use type: does not use caffeine: No ROS ROS ED Constitutional Constitutional ED: Denies chills or fever(s) Eyes Eyes: Denies change in vision or discharge from eye(s) ENT ENT ED: Denies discharge from eye(s), rhinorrhea or sore throat Cardiovascular Cardiovascular: Denies chest pain or palpitations Respiratory/Chest Respiratory/Chest: Denies cough or dyspnea Gastrointestinal Gastrointestinal: Denies abdominal pain, nausea or vomiting Genitourinary Genitourinary ED: Denies dysuria Musculoskeletal Musculoskeletal: Denies back pain or extremity pain Integumentary Denies Abrasions or rash Neurologic Neurologic: Reports weakness; Denies headache(s) Allergic/Immunologic Allergic/Immunologic ED: Denies lip swelling or urticaria EXAM Physical Exam Const Vital Signs: 04/06/22 15:44 04/06/22 17:00 04/06/22 19:25 Temperature 98.2 F Temperature Source Temporal Pulse Rate 55 L 53 L 64 Respiratory Rate 15 12 22 H Blood Pressure 101/39 L 120/66 128/65 H Blood Pressure Mean 59 84 86 Pulse Ox 96 96 96 Oxygen Delivery Method Room Air Room Air 04/06/22 20:38 Temperature Temperature Source Pulse Rate 57 L Respiratory Rate 18 Blood Pressure 124/69 H Blood Pressure Mean 87 Pulse Ox 96 Oxygen Delivery Method Room Air Positive well nourished and well developed General Appearance ED: well developed HEENT Reports normocephalic and head/scalp atraumatic Eyes PERRL and EOMs intact bilaterally Neck supple Chest Wall inspection of chest normal and palpation of chest normal Resp normal respiratory effort and clear to auscultation bilaterally Cardio regular rhythm Rate: bradycardia GI non-tender Auscultation: hypoactive bowel sounds Palpation: soft Extremity normal to inspection Neuro oriented x3 Neuro Narrative: No focal neurologic deficits. Sensorium / Orientation: alert Psych Psych Narrative: Flat affect Skin no rashes or lesions noted MDM MDM MDM Narrative Medical decision making narrative: Patient placed on ekg monitor tech. EKG, lab work obtained. Urinalysis and COVID test ordered. Lab Data Attestation: I reviewed the patient's lab results. Labs: Laboratory Results - last 24 hr 04/06/22 04/06/22 04/06/22 16:30 16:30 16:30 WBC 2.9 L RBC 2.88 L Hgb 8.9 L Hct 30.0 L MCV 104.2 H MCH 30.9 MCHC 29.7 L RDW Std Deviation 61.4 H RDW Coeff of [place]aly[place] 15.9 H Plt Count 132 L MPV 10.7 Immature Gran % (Auto) 0.300 Neut % (Auto) 69.1 Lymph % (Auto) 16.7 L [place] % (Auto) 10.1 H Eos % (Auto) 3.1 Baso % (Auto) 0.7 Absolute Neuts (auto) 2.0 Absolute Lymphs (auto) 0.48 L Nucleated RBC % 0 Differential Comment SCANNED Diff Path Review November foll PT 15.5 H INR 1.3 Sodium 145 Potassium 4.0 Chloride 112 H Carbon Dioxide 29.0 Anion Gap 4 L BUN 28 H Creatinine 1.36 H Estim Creat Clear Calc 42.49 Est GFR (MDRD) Af Amer 64 Est GFR (MDRD) Non-Af 53 L BUN/Creatinine Ratio 20.6 H Glucose 104 Calcium 8.9 Total Bilirubin 0.80 Direct Bilirubin 0.30 AST 42 H ALT 37 Alkaline Phosphatase 183 H Troponin I High Sens 18 Total Protein 6.2 L Albumin 3.1 L Globulin 3.1 Urine Color Urine Clarity Urine pH Ur Specific [place] Urine Protein Urine Glucose (UA) Urine Ketones Urine Occult Blood Urine Nitrite Urine Bilirubin Urine Urobilinogen Ur Leukocyte Esterase Urine RBC Urine WBC Ur Squamous Epith Cells Urine Bacteria Urine Mucus 04/06/22 04/06/22 19:27 19:43 WBC RBC Hgb Hct MCV MCH MCHC RDW Std Deviation RDW Coeff of [place] Plt Count MPV Immature Gran % (Auto) Neut % (Auto) Lymph % (Auto) [place] % (Auto) Eos % (Auto) Baso % (Auto) Absolute Neuts (auto) Absolute Lymphs (auto) Nucleated RBC % Differential Comment Diff Path Review PT INR Sodium Potassium Chloride Carbon Dioxide Anion Gap BUN Creatinine Estim Creat Clear Calc Est GFR (MDRD) Af Amer Est GFR (MDRD) Non-Af BUN/Creatinine Ratio Glucose Calcium Total Bilirubin Direct Bilirubin AST ALT Alkaline Phosphatase Troponin I High Sens 19 Total Protein Albumin Globulin Urine Color Straw Urine Clarity Clear Urine pH 6.0 Ur Specific [place] 1.020 Urine Protein Negative Urine Glucose (UA) Normal Urine Ketones Negative Urine Occult Blood Negative Urine Nitrite Negative Urine Bilirubin Negative Urine Urobilinogen Normal Ur Leukocyte Esterase Negative Urine RBC 0 SEEN Urine WBC 0 SEEN Ur Squamous Epith Cells 0 SEEN Urine Bacteria RARE Urine Mucus 0 SEEN EKG Initial EKG: Attestation: I personally reviewed and interpreted this EKG as follows: Interpretation: Atrial Fibrillation (A. fib with bradycardia, ventricular rate 56 bpm. PVCs noted. ) Follow-up EKG: Attestation: I personally reviewed and interpreted this EKG as follows: Interpretation: Atrial Fibrillation (A. fib at 56 bpm. Occasional PVCs. No acute ST change.) Treatment and Re-Evaluation Narrative: Patient initially denied any pain, does stated that his arms felt very heavy and weak. He then called out asking for pain medication stating that he had all over body pain. He was given a dose of fentanyl. CBC reveals low white count at 2.9 with hemoglobin 8.9. This is stable when compared to his recent discharge. Platelet count 132,000. INR is 1.3, now subtherapeutic. Chemistry studies reveal a BUN of 28 and a creatinine of 1.36. This only slightly bumped when compared to his discharge labs. LFTs are unremarkable. Initial troponin is 18 with 2-hour repeat 19. Urinalysis reveals no acute infection. Rapid COVID test is negative. At this time I have advised the patient that his work-up today does not show any significant changes when compared to his prior values. He is, however, very weak and having difficulty caring for himself at home. Initial plan was to admit the patient. He then changed his mind and decided he want to go stay with his daughter who lives nearby. Nursing staff was able to get him up and walk him out into the [place]. He did quite well. He was advised that he is always welcome to return if he gets worse. Discharge Plan Triage Chief Complaint: Weakness ED Provider: Radha Holland Dx/Rx/DC Orders Clinical Impression: Declining functional status, Generalized weakness, Subtherapeutic international normalized ratio (INR) Instructions: ED Weakness (Uncertain Cause) Prescriptions: No Action isosorbide mononitrate 30 mg tablet extended release 24 hr 30 mg PO DAILY metoprolol tartrate 25 mg tablet 12.5 mg PO BID nitroglycerin 0.4 mg tablet, sublingual 0.4 mg SUBLINGUAL Q5M PRN (Reason: Chest Pain) Qty: 30 0RF Label Comments: chest pain ipratropium-albuterol 0.5 mg-3 mg(2.5 mg base)/3 mL solution for nebulization 3 ml INHALATION 4X/DAY Label Comments: breathing rosuvastatin 40 MG tablet 40 mg PO QHS Label Comments: cholesterol pantoprazole 40 mg tablet,delayed release (DR/EC) 40 mg PO BID Label Comments: acid reflux cholecalciferol (vitamin D3) 1,000 UNIT tablet 2,000 unit PO DAILY Label Comments: supplement albuterol sulfate 90 MCG aerosol powdr breath activated 2 puff INHALATION Q4H PRN PRN (Reason: Wheezing) Label Comments: breathing aspirin 81 MG tablet 81 mg PO DAILY@0800 Hold Instructions: Resume on 04/07/22. Label Comments: heart health WAS TOLD TO STOP FOR SURGERY folic acid 1 MG tablet 1 mg PO QHS zolpidem 10 MG tablet 10 mg PO QHS pregabalin 75 MG capsule 75 mg PO TID Stiolto Respimat 2.5-2.5 mcg/actuation Mist 1 puff INHALATION BID buprenorphine 10 mcg/hour patch weekly 10 mcg transdermal FULLER Label Comments: APPLY 1 (ONE) patch transdermally and wear for 1 (ONE) week ferrous sulfate 325 MG tablet 325 mg PO BID Label Comments: iron supplement warfarin 5 mg tablet 5 mg PO DAILY Protocol: Dose Management Condition: Tuesday Dose/Route: 5 mg Instruction: 1 x 5 mg tablet Condition: Tuesday Dose/Route: 5 mg Instruction: 1 x 5 mg tablet Condition: Tuesday Dose/Route: 5 mg Instruction: 1 x 5 mg tablet Condition: Tuesday Dose/Route: 5 mg Instruction: 1 x 5 mg tablet Condition: Dose/Route: 5 mg Instruction: 1 x 5 mg tablet Condition: Tuesday Dose/Route: 5 mg Instruction: 1 x 5 mg tablet Condition: Tuesday Dose/Route: 5 mg Instruction: 1 x 5 mg tablet Protocol Text: Adjustment Start Date: Tuesday03/24/22 INR Value: 3.4 INR Date: 03/24/22 Recheck Date: 04/07/22 Primary Care Provider: Guillermo Pritchard Referrals: Guillermo Pritchard MD [Primary Care Provider] - 3-5 Days if not improving Disposition Disposition: Home, Self Care
[2022-04-06] MEDS: 0.9% Normal Saline 1,000 ML 150 ML IV (16:37)
[2022-04-06 16:38] LABS: Absolute Lymphocyte Count 0.48 X10^3/uL (0.83-4.51); Basophil# 0.02 X10^3/uL; Basophil% 0.7 % (0-1); Eosinophil# 0.09 X10^3/uL; Eosinophils% 3.1 % (0-5); Hemoglobin 8.9 g/dL (13.0-16.5); Lymphocyte # 0.48 X10^3/ul (0.83-4.51); Lymphocyte % 16.7 % (19-41); Mean Corp Hgb Conc 29.7 g/dL (32-36); Mean Corpuscular Hgb 30.9 pg (27.0-32.0); Mean Corpuscular Volume 104.2 fL (80-94); Mean Platelet Vol. 10.7 fl (6.2-12.0); Monocyte# 0.29 X10^3/uL; Monocyte% 10.1 % (0-10); NRBC Flagged by Analyzer 0 % (0-5); Neutrophil # 1.98 X10^3/uL (2.7-7.7); Neutrophil % 69.1 % (47-70); POSITIVE DIFFERENTIAL YES; Platelet Count 132 K/mm3 (150-450); RBC Distribution Width CV 15.9 % (11.6-14.6); RBC Distribution Width SD 61.4 fl (35.1-43.9); Red Blood Count 2.88 M/mm3 (4.6-6.2); White Blood Count 2.9 K/mm3 (4.4-11.0)
[2022-04-06 16:43] LABS: Differential Indicated SCAN CRITERIA MET
[2022-04-06 16:47] LABS: International Normalized Ratio 1.3; Prothrombin Time (Protime)PT. 15.5 SECONDS (11.7-14.9)
[2022-04-06 16:57] LABS: AST(SGOT) 42 U/L (15-37); Alanine Aminotransfer ALT/SGPT 37 U/L (16-61); Albumin, Serum 3.1 g/dL (3.2-5.0); Alkaline Phosphatase 183 U/L (45-117); Anion Gap 4 (5-15); BUN 28 mg/dL (7-18); BUN/Creat Ratio 20.6 RATIO (10-20); Calcium,Total 8.9 mg/dL (8.5-10.1); Chloride 112 mmol/L (98-107); Creatinine, Serum 1.36 mg/dL (0.70-1.30); EST Glomerular Filtration Rate 53 mL/min (>60); Est Glom Filt Rate - Afr Amer 64 mL/min (>60); Estimated Creatinine Clearance 42.49 ml/min; Globulin 3.1 g/dL (2.2-4.2); Glucose 104 mg/dL (74-106); Protein, Total 6.2 g/dL (6.4-8.2); Sodium Level 145 mmol/L (136-145); Troponin-I HS 18 pg/mL (3.0-78.0)
[2022-04-06 16:58] LABS: Differential Comment SCANNED
[2022-04-06 17:00] VITALS: BP 120/66; PULSE 53; RESP 12; O2SAT 96
[2022-04-06] MEDS: fentaNYL 100 MCG/2 ML Ampul 25 MCG IV (17:05)
[2022-04-06 19:25] VITALS: BP 128/65; PULSE 64; RESP 22; O2SAT 96
[2022-04-06 19:35] LABS: Mucous, Urine 0 SEEN /hpf (<or=2+); Red Blood Cells-Urine 0 SEEN /hpf (0-5); Squamous Epithelial Cells - UA 0 SEEN /hpf (0-5); White Blood Cells 0 SEEN /hpf (0-5)
[2022-04-06 19:38] LABS: Color, Urine Straw (Yellow); Glucose, Dipstick Normal (Normal); Ketone-Dipstick Negative (Negative); Leukocyte Esterase-Dipstick Negative /ul (Negative); Nitrite-Dipstick Negative (Negative); Occult Blood-Urine Negative /ul (Negative); Protein-Dipstick Negative (Negative); Urine Bilirubin Dipstick Negative (Negative); Urine Clarity Clear (Clear); Urine Urobilinogen Normal (Normal)
[2022-04-06 19:54] LABS: Bacteria RARE /hpf (None Seen)
[2022-04-06 20:05] LABS: Troponin-I HS 19 pg/mL (3.0-78.0)
[2022-04-06 20:38] VITALS: BP 124/69; PULSE 57; RESP 18; O2SAT 96
[2022-04-06 21:00] VITALS: BP 124/66; PULSE 55; RESP 16
[2022-04-07 12:34] LABS: Pathologist Review Reviewed
== END 2022-04-06 21:01 | disposition home or self-care (01) ==
PROVIDERS: Emergency Provider Emergency Medicine; PCP Family Medicine; Visit Provider Emergency Medicine
DX: R53.1 Weakness (principal); J44.9 Chronic obstructive pulmonary disease, unspecified; I50.22 Chronic systolic (congestive) heart failure; I13.0 Hypertensive heart and chronic kidney disease with heart failure and stage 1 through stage 4 chronic kidney disease, or unspecified chronic kidney disease; N18.31 Chronic kidney disease, stage 3a; I25.10 Atherosclerotic heart disease of native coronary artery without angina pectoris; E78.00 Pure hypercholesterolemia, unspecified; D50.0 Iron deficiency anemia secondary to blood loss (chronic); Z79.899 Other long term (current) drug therapy; Z79.82 Long term (current) use of aspirin; Z79.01 Long term (current) use of anticoagulants
CPT/HCPCS: 36415; 80048; 80076; 81001; 84484; 85025; 85610; 87811; 93005; 96361; 96374; 99284; J7030; A4216

== ENCOUNTER → 2022-04-07 | Outpatient (CLI) | payer MEDICARE, SELFPAY ==
[2022-04-07 11:30] LABS: INR Fingerstick 1.3; Prothrombin Time Fingerstick 15.5 SEC (11.7-14.9)
== END | disposition home or self-care (01) ==
LOC: LAB 09:38
PROVIDERS: PCP Family Medicine; Referring Provider Internal Medicine Cardiovascular Disease; Visit Provider Internal Medicine Cardiovascular Disease
DX: I48.0 Paroxysmal atrial fibrillation (principal); Z79.01 Long term (current) use of anticoagulants; Z95.2 Presence of prosthetic heart valve
CPT/HCPCS: 36416; 85610

== ENCOUNTER 2022-04-08 11:26 | Emergency (ER) | payer OTHER, SELFPAY ==
[2022-04-08 11:28] VITALS: BP 115/54; PULSE 40; RESP 18; TEMP 35.9; O2SAT 98; BMI 23.6
[2022-04-08 12:22] VITALS: BP 99/52; PULSE 46; RESP 16; O2SAT 94
--- NOTE | 2022-04-08 13:10 | CT_ITS ---
INDICATION: back pain EXAMINATION: CT LUMBAR SPINE - CT Spine Lumbar W/O Contrast Injection TECHNIQUE: Helically acquired images were obtained of the lumbar spine. 2D reformats were reviewed. A radiation dose optimization technique was used for this scan. IV Contrast dosage and agent: None. COMPARISON: 04/02/2022.. FINDINGS: Straightening of alignment of the columns of the lumbar spine is visualized. Alignment of the columns of the lumbar spine demonstrate no significant change in comparison to the prior study. Bipedicular posterior internal fixation of the L4, L5 and S1 vertebral bodies is seen. Subtle lucencies visualized surrounding the internal fixation screws that was not seen on the prior study. Limited evaluation of the L4-5 and L5-S1 spinal canal due to extensive artifact, if there is a high-level suspicion of cord compression at these levels would recommend further evaluation with a myelogram. Circumferential disc bulges visualized most prominent at L4-L5, L5-S1 and L3-L4 however these demonstrate no significant change in comparison to the prior study. No evidence of collections surrounding the lumbar spine. Suggestion of severe narrowing of bilateral neuroforamina at L5-S1 demonstrating no significant change in comparison to the prior study, moderate to severe narrowing of bilateral neuroforamina at L4-L5. CT/Spine Lumbar without Contrast IMPRESSION: Suggestion of lucency surrounding the internal fixation prosthesis in comparison to the prior study. Limited evaluation of the spinal canal at L4-L5 and L5-S1 due to extensive artifact from internal fixation procedures. Multilevel circumferential disc bulges with narrowing of the neuroforamina is mentioned above. Electronically Signed: Scott Elliott MD at 14:23 EDT ,
--- NOTE | 2022-04-08 13:12 | EDS_ITS ---
HPI History of Present Illness Chief Complaint: Back Narrative Narrative: 81-year-old male presents with his daughter because of exacerbation of chronic back pain. She relates history that he was seen in the emergency department approximately a week or so ago, and admitted because he had anemia which required a blood transfusion. She states that he received a blood transfusion then was told that he needs to lay in bed and do bed rest to allow the blood to circulate. She noticed that he was bradycardic today and over the last few days he has been generally weak and lethargic. He has chronic back pain for which she sees pain management. Daughter states that she called pain management and was told to bring him to the emergency department for immediate pain relief. She denies any fever or chills. No loss of bowel or bladder. No dysuria or hematuria. No diarrhea or problems with bowel movements. He has pain in his back that has intensified in the area around his incision. He feels generally weak. [facility] Medical History Ambulates with cane Anemia Anemia due to chronic blood loss Arthritis Atherosclerotic heart disease of [place] coronary artery without angina pectoris Back pain Back pain due to injury Cardiology follow-up encounter CHF (congestive heart failure) Chronic cough Chronic pain syndrome Chronic systolic (congestive) heart failure COPD (chronic obstructive pulmonary disease) COPD (chronic obstructive pulmonary disease) Difficulty swallowing Essential hypertension Gastric reflux Heart attack High cholesterol History of atrial fibrillation History of CHF (congestive heart failure) History of echocardiogram History of edema History of GI bleed History of heart attack History of pain when walking History of stress test Hx of fracture of ankle Hx of fracture of ankle Hypertension Injury of back Injury of head and neck Irregular heartbeat 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 Paroxysmal atrial fibrillation Pure hypercholesterolemia Restless legs Secondary pulmonary arterial hypertension Shortness of breath on exertion Smoker Spinal stenosis of lumbar region Stage 3a chronic kidney disease (CKD) Stroke TIA (transient ischemic attack) Tobacco use disorder Uncontrolled pain Wears dentures Wears glasses Home Medications rosuvastatin 40 mg tablet 40 mg PO QHS cholesterol 07/15/13 [History Last Taken 04/05/22] albuterol sulfate 90 mcg/actuation breath activated powder inhaler 2 puff inhalation Q4H PRN PRN Wheezing 09/25/15 [History Last Taken 04/06/22] cholecalciferol (vitamin D3) 25 mcg (1,000 unit) tablet 2,000 unit PO DAILY SUPPLEMENT 09/25/15 [History Last Taken 04/06/22] aspirin 81 mg tablet,delayed release 81 mg PO DAILY@0800 HEART HEALTH 06/24/16 [History Last Taken 04/06/22] folic acid 1 mg tablet 1 mg PO QHS SUPPLEMENT 06/24/16 [History Last Taken 04/05/22] isosorbide mononitrate 30 mg tablet,extended release 24 hr 30 mg PO DAILY BP 11/21/17 [History Last Taken 04/06/22] pantoprazole 40 mg tablet,delayed release 40 mg PO BID ACID REFLUX 01/02/18 [History Last Taken 04/06/22] zolpidem 10 mg tablet 10 mg PO QHS SLEEP 05/26/18 [History Last Taken 04/05/22] pregabalin 75 mg capsule 75 mg PO TID pain 07/28/18 [History Last Taken 04/06/22] metoprolol tartrate 25 mg tablet 12.5 mg PO BID Dose increased for Rapid Heart Rate 11/26/19 [History Last Taken 04/06/22] nitroglycerin 0.4 mg sublingual tablet 0.4 mg sublingual Q5M PRN Chest Pain #30 tabs 05/25/21 [Rx Last Taken Unknown] tiotropium 2.5 mcg-olodaterol 2.5 mcg/actuation mist for inhalation (Stiolto Respimat) 1 puff inhalation BID Check with primary doctor 06/18/21 [History Last Taken 04/06/22] buprenorphine 10 mcg/hour weekly transdermal patch 10 mcg transdermal FULLER pain 08/16/21 [History Last Taken 04/04/22] ipratropium 0.5 mg-albuterol 3 mg (2.5 mg base)/3 mL nebulization soln 3 ml inhalation 4X/DAY 11/25/21 [History Last Taken 04/06/22] ferrous sulfate 325 mg (65 mg iron) tablet 325 mg PO BID IRON SUPPLEMENT 04/06/22 [History Last Taken 04/06/22] warfarin 5 mg tablet 5 mg PO DAILY 04/06/22 [History Last Taken 04/05/22] furosemide 40 mg tablet 40 mg PO DAILY PRN SOB, weight gain, edema #1 TAB 04/07/22 [Rx Last Taken Unknown] Allergy/AdvReac Type Severity Reaction Status Date / Time No Known Allergies Allergy Verified 04/02/22 12:25 Family History Son , age 44 from [place] CAD (coronary artery disease) Myocardial infarction Sudden cardiac Brother CAD (coronary artery disease) Pt states all nine of his siblings have heart problems Sister CAD (coronary artery disease) Patient states all nine of his siblings have heart problems Surgical History H/O cardiac catheterization History of coronary artery stent placement (~06/28/11) History of esophagogastroduodenoscopy (EGD) (~10/2021) History of left heart catheterization History of lumbar fusion History of mechanical aortic valve replacement (~03/27/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 Lethargy. HEENT: No sore throat. No neck pain. No loss of vision. No rhinorrhea. Cardiovascular: No chest pain. No palpitations. No pedal edema. Low heart rate. Respiratory: No cough, no shortness of breath. Abdominal: No abdominal pain. No nausea. No vomiting. Genitourinary: No dysuria. No hematuria. Musculoskeletal: No myalgias. No arthralgias. Positive lumbar back pain, chronic. Neurologic: No headaches. No dizziness. No lightheadedness. Generalized weakness. Skin: No rash. No change in color. Psychiatric: No depression. No anxiety. EXAM Physical Exam Narrative Exam Narrative: Afebrile. Vital signs noted. HEENT: Normocephalic. Atraumatic. PERRL, EOMI. Neck soft and supple. No point tenderness or step off. Cardiovascular: Positive bradycardia. No murmurs, rubs, or gallops appreciated. Respiratory: No tachypnea. Lungs clear to auscultation bilaterally. Gastrointestinal: Abdomen soft, nontender, with normoactive bowel sounds. No rebound or guarding. Neurological: Awake. Alert. Nonfocal, nonlateralizing. EHL intact bilaterally. Skin: No rash. Normal color. No pallor. Musculoskeletal: No pedal edema. Full range of motion extremities. Tenderness to palpation diffusely lumbar spine. No step-off. Well-healed surgical scar. No erythema. Const Vital Signs: 04/08/22 11:28 04/08/22 12:22 04/08/22 14:00 Temperature 96.7 F L Temperature Source Temporal Pulse Rate 40 L 46 L 52 L Respiratory Rate 18 16 14 Blood Pressure 115/54 L 99/52 L 122/71 H Blood Pressure Mean 74 67 88 Pulse Ox 98 94 95 Oxygen Delivery Method Room Air Room Air Room Air 04/08/22 15:13 Temperature Temperature Source Pulse Rate 53 L Respiratory Rate 16 Blood Pressure 110/76 Blood Pressure Mean 87 Pulse Ox 96 Oxygen Delivery Method Room Air MDM MDM MDM Narrative Medical decision making narrative: Comprehensive work-up was pursued. EKG was obtained in triage interpreted by myself which demonstrates sinus bradycardia at 49 bpm with sinus arrhythmia and first-degree AV block but no evidence of acute STEMI. He was bolused 500 cc of normal saline. I will send urinalysis and basic blood work to make sure he is not anemic again. He takes chronic Coumadin so INR was sent. I will obtain CT imaging of his lumbar spine. CBC shows chronic neutropenia of 2.8 with hemoglobin stable at 9.3, platelet count low at 131. INR subtherapeutic at 1.3. CMP shows chloride elevated at 110 with a normal sodium of 145 and normal potassium of 4.3. BUN elevated 26 with creatinine 1.17. Urinalysis is negative for ketones and negative for infection. I do not feel antibiotics are indicated. CT of the lumbar spine does show multilevel degenerative disc disease with disc bulging. There is suggestion of lucency around the fixation hardware/prosthesis which may demonstrate loosening. There is extensive artifact at L4-L5 and L5-S1. However, he does not have any red flag signs of cauda equina syndrome, no saddle anesthesia or loss of bowel or bladder. He has having chronic pain mainly in the first 3-4 vertebrae of the lumbar spine. Without acute fracture, I do not feel that further work-up is indicated. After administration of 50 mcg of fentanyl intravenously, he states that he has mildly improved. I rediscussed with him home health care which she declined, and also placement in rehabilitation for intractable back pain, but once again he declined. He states his hardware has been in his back for over 20 years. He will follow-up with his pain management physician. I also did have case management/social work see him. After discussion, they state that he does not want home health care, or admitted to rehab and that he would like to be discharged home. He will be discharged to follow-up with his primary care physician and his pain management physician. Return instructions to the emergency department were reviewed. Disposition is discharged home in stable condition. Lab Data Attestation: I reviewed the patient's lab results. Labs: Laboratory Results - last 24 hr 04/08/22 04/08/22 04/08/22 13:14 13:14 13:14 WBC 2.8 L RBC 3.05 L Hgb 9.3 L Hct 31.4 L MCV 103.0 H MCH 30.5 MCHC 29.6 L RDW Std Deviation 60.6 H RDW Coeff of [place] 16.0 H Plt Count 131 L MPV 11.0 Immature Gran % (Auto) 0.000 Neut % (Auto) 70.8 H Lymph % (Auto) 16.6 L [place] % (Auto) 8.3 Eos % (Auto) 2.9 Baso % (Auto) 1.4 H Absolute Neuts (auto) 2.0 Absolute Lymphs (auto) 0.46 L Nucleated RBC % 0 Differential Comment COMMENT Diff Path Review November foll PT 15.4 H INR 1.3 Sodium 145 Potassium 4.3 Chloride 110 H Carbon Dioxide 29.0 Anion Gap 6 BUN 26 H Creatinine 1.17 Estim Creat Clear Calc 49.39 Est GFR (MDRD) Af Amer 76 Est GFR (MDRD) Non-Af 63 BUN/Creatinine Ratio 22.2 H Glucose 108 H Calcium 9.0 Total Bilirubin 0.60 AST 36 ALT 36 Alkaline Phosphatase 193 H Total Protein 6.4 Albumin 3.0 L Globulin 3.4 Albumin/Globulin Ratio 0.9 Urine Color Urine Clarity Urine pH Ur Specific [place] Urine Protein Urine Glucose (UA) Urine Ketones Urine Occult Blood Urine Nitrite Urine Bilirubin Urine Urobilinogen Ur Leukocyte Esterase Urine RBC Urine WBC Ur Squamous Epith Cells Urine Bacteria Urine Mucus 04/08/22 13:24 WBC RBC Hgb Hct MCV MCH MCHC RDW Std Deviation RDW Coeff of [place] Plt Count MPV Immature Gran % (Auto) Neut % (Auto) Lymph % (Auto) [place] % (Auto) Eos % (Auto) Baso % (Auto) Absolute Neuts (auto) Absolute Lymphs (auto) Nucleated RBC % Differential Comment Diff Path Review PT INR Sodium Potassium Chloride Carbon Dioxide Anion Gap BUN Creatinine Estim Creat Clear Calc Est GFR (MDRD) Af Amer Est GFR (MDRD) Non-Af BUN/Creatinine Ratio Glucose Calcium Total Bilirubin AST ALT Alkaline Phosphatase Total Protein Albumin Globulin Albumin/Globulin Ratio Urine Color Straw Urine Clarity Clear Urine pH 6.0 Ur Specific [place] 1.010 Urine Protein Negative Urine Glucose (UA) Normal Urine Ketones Negative Urine Occult Blood 10 H Urine Nitrite Negative Urine Bilirubin Negative Urine Urobilinogen Normal Ur Leukocyte Esterase Negative Urine RBC 0 SEEN Urine WBC 0 SEEN Ur Squamous Epith Cells 0-5 SEEN Urine Bacteria 0 SEEN Urine Mucus 0 SEEN Radiography Diagnostic Testing: Clinical Impression(s) from Imaging Studies Lumbar Spine CT 04/08/22 13:10 IMPRESSION: Suggestion of lucency surrounding the internal fixation prosthesis in comparison to the prior study. Limited evaluation of the spinal canal at L4-L5 and L5-S1 due to extensive artifact from internal fixation procedures. Multilevel circumferential disc bulges with narrowing of the neuroforamina is mentioned above. Electronically Signed: Scott Elliott MD at 14:23 EDT Reading Location ID and State: [facility] / [place] Tel , Service support , Discharge Plan Triage Chief Complaint: Back Other Complaint: Numb/Ting ED Provider: Epifanio Tobar Dx/Rx/DC Orders Clinical Impression: Acute exacerbation of chronic low back pain, Generalized weakness, Bradycardia, Neutropenia, Thrombocytopenia, Degenerative joint disease of spine Instructions: ED Back Pain (Acute or Chronic), ED Bradycardia, ED Degenerative Disk Disease, ED Weakness (Uncertain Cause) Prescriptions: No Action isosorbide mononitrate 30 mg tablet extended release 24 hr 30 mg PO DAILY metoprolol tartrate 25 mg tablet 12.5 mg PO BID nitroglycerin 0.4 mg tablet, sublingual 0.4 mg SUBLINGUAL Q5M PRN (Reason: Chest Pain) Qty: 30 0RF Label Comments: chest pain ipratropium-albuterol 0.5 mg-3 mg(2.5 mg base)/3 mL solution for nebulization 3 ml INHALATION 4X/DAY Label Comments: breathing rosuvastatin 40 MG tablet 40 mg PO QHS Label Comments: cholesterol pantoprazole 40 mg tablet,delayed release (DR/EC) 40 mg PO BID Label Comments: acid reflux cholecalciferol (vitamin D3) 1,000 UNIT tablet 2,000 unit PO DAILY Label Comments: supplement albuterol sulfate 90 MCG aerosol powdr breath activated 2 puff INHALATION Q4H PRN PRN (Reason: Wheezing) Label Comments: breathing aspirin 81 MG tablet 81 mg PO DAILY@0800 Hold Instructions: Resume on 04/07/22. Label Comments: heart health WAS TOLD TO STOP FOR SURGERY folic acid 1 MG tablet 1 mg PO QHS zolpidem 10 MG tablet 10 mg PO QHS pregabalin 75 MG capsule 75 mg PO TID Stiolto Respimat 2.5-2.5 mcg/actuation Mist 1 puff INHALATION BID buprenorphine 10 mcg/hour patch weekly 10 mcg transdermal FULLER Label Comments: APPLY 1 (ONE) patch transdermally and wear for 1 (ONE) week ferrous sulfate 325 MG tablet 325 mg PO BID Label Comments: iron supplement warfarin 5 mg tablet 5 mg PO DAILY Protocol: Dose Management Condition: Tuesday Dose/Route: 5 mg Instruction: 1 x 5 mg tablet Condition: Tuesday Dose/Route: 5 mg Instruction: 1 x 5 mg tablet Condition: Tuesday Dose/Route: 5 mg Instruction: 1 x 5 mg tablet Condition: Tuesday Dose/Route: 5 mg Instruction: 1 x 5 mg tablet Condition: Dose/Route: 5 mg Instruction: 1 x 5 mg tablet Condition: Tuesday Dose/Route: 5 mg Instruction: 1 x 5 mg tablet Condition: Tuesday Dose/Route: 5 mg Instruction: 1 x 5 mg tablet Protocol Text: Adjustment Start Date: Tuesday04/07/22 INR Value: 1.3 INR Date: 04/06/22 furosemide 40 mg tablet 40 mg PO DAILY PRN (Reason: SOB, weight gain, edema) Qty: 1 0RF Primary Care Provider: Guillermo Pritchard Referrals: Guillermo Pritchard MD [Primary Care Provider] - As soon as possible Activity Restrictions/Additional Instructions: Follow-up with your pain management physician as soon as possible. Call the office today. Disposition Disposition: Home, Self Care
[2022-04-08] MEDS: fentaNYL 100 MCG/2 ML Ampul 50 MCG IV (13:19)
--- NOTE | 2022-04-08 13:26 | EKG12_ITS ---
Test Reason : BRADYCARDIA Blood Pressure : / mmHG Vent. Rate : 049 BPM Atrial Rate : 049 BPM P-R Int : 368 ms QRS Dur : 130 ms QT Int : 508 ms P-R-T Axes : 005 -58 067 degrees QTc Int : 458 ms Sinus bradycardia with marked sinus arrhythmia with 1st degree A-V block Left axis deviation Non-specific intra-ventricular conduction block T wave abnormality, consider lateral ischemia Abnormal ECG Confirmed by JOSÉ KO, WEI ([id number]), copy editor MIMA VALDEZ ([id number]) on 04/12/2022 9:45:22 AM Referred By: Confirmed By:WEI KUMAR MD
[2022-04-08 13:29] LABS: Bacteria 0 SEEN /hpf (None Seen); Mucous, Urine 0 SEEN /hpf (<or=2+); Red Blood Cells-Urine 0 SEEN /hpf (0-5); White Blood Cells 0 SEEN /hpf (0-5)
[2022-04-08 13:30] LABS: Absolute Lymphocyte Count 0.46 X10^3/uL (0.83-4.51); Basophil# 0.04 X10^3/uL; Basophil% 1.4 % (0-1); Eosinophil# 0.08 X10^3/uL; Eosinophils% 2.9 % (0-5); Hematocrit 31.4 % (40-54); Hemoglobin 9.3 g/dL (13.0-16.5); Lymphocyte # 0.46 X10^3/ul (0.83-4.51); Lymphocyte % 16.6 % (19-41); Mean Corp Hgb Conc 29.6 g/dL (32-36); Mean Corpuscular Hgb 30.5 pg (27.0-32.0); Monocyte# 0.23 X10^3/uL; Monocyte% 8.3 % (0-10); NRBC Flagged by Analyzer 0 % (0-5); Neutrophil # 1.96 X10^3/uL (2.7-7.7); Neutrophil % 70.8 % (47-70); POSITIVE DIFFERENTIAL YES; Platelet Count 131 K/mm3 (150-450); RBC Distribution Width SD 60.6 fl (35.1-43.9); Red Blood Count 3.05 M/mm3 (4.6-6.2); White Blood Count 2.8 K/mm3 (4.4-11.0)
[2022-04-08 13:32] LABS: Color, Urine Straw (Yellow); Glucose, Dipstick Normal (Normal); Ketone-Dipstick Negative (Negative); Leukocyte Esterase-Dipstick Negative /ul (Negative); Nitrite-Dipstick Negative (Negative); Occult Blood-Urine 10 /ul (Negative); Protein-Dipstick Negative (Negative); Urine Bilirubin Dipstick Negative (Negative); Urine Clarity Clear (Clear); Urine Urobilinogen Normal (Normal)
[2022-04-08 13:36] LABS: Differential Indicated SCAN CRITERIA MET
[2022-04-08 13:39] LABS: International Normalized Ratio 1.3; Prothrombin Time (Protime)PT. 15.4 SECONDS (11.7-14.9)
[2022-04-08 13:45] LABS: Squamous Epithelial Cells - UA 0-5 SEEN /hpf (0-5)
[2022-04-08 13:46] LABS: ALB/GLOB Ratio 0.9 RATIO (0.9-2.4); AST(SGOT) 36 U/L (15-37); Alanine Aminotransfer ALT/SGPT 36 U/L (16-61); Alkaline Phosphatase 193 U/L (45-117); Anion Gap 6 (5-15); BUN 26 mg/dL (7-18); BUN/Creat Ratio 22.2 RATIO (10-20); Chloride 110 mmol/L (98-107); Creatinine, Serum 1.17 mg/dL (0.70-1.30); EST Glomerular Filtration Rate 63 mL/min (>60); Est Glom Filt Rate - Afr Amer 76 mL/min (>60); Estimated Creatinine Clearance 49.39 ml/min; Globulin 3.4 g/dL (2.2-4.2); Glucose 108 mg/dL (74-106); Potassium 4.3 mmol/L (3.5-5.1); Protein, Total 6.4 g/dL (6.4-8.2); Sodium Level 145 mmol/L (136-145)
[2022-04-08 14:00] VITALS: BP 122/71; PULSE 52; RESP 14; O2SAT 95
[2022-04-08 15:13] VITALS: BP 110/76; PULSE 53; RESP 16; O2SAT 96
--- NOTE | 2022-04-08 15:51 | CM.ED ---
Addendum entered by Sushma Carr 04/08/22 15:54: Completed by Sushma BRANDON Original Note: ALIVIA Note Referral Source: MD Referral Reason: Patients functioning at home MD met with patient and he said that he wants to go home. Patient's grandson will be coming to get him. ALIVIA met with patient. He reports he uses a walker and cane at home and also has a motorized scooter. Patient said that his daughter lives 5 houses from him and his niece lives across the street.Patient has never been to a SNF. Patient felt comfortable going home and indicated no concerns about discharge home. Patient provided patient with [facility] information as a resource. Patient voiced no concerns regarding discharge plan. SW remains available if need arise. Plan: Home
[2022-04-08 16:30] VITALS: BP 138/64; PULSE 59; RESP 16; O2SAT 95
[2022-04-09 13:41] LABS: Pathologist Review Reviewed
== END 2022-04-08 16:30 | disposition home or self-care (01) ==
PROVIDERS: Emergency Provider Emergency Medicine; PCP Family Medicine; Visit Provider Emergency Medicine
DX: M54.50 Low back pain, unspecified (principal); D61.818 Other pancytopenia; J44.9 Chronic obstructive pulmonary disease, unspecified; I13.0 Hypertensive heart and chronic kidney disease with heart failure and stage 1 through stage 4 chronic kidney disease, or unspecified chronic kidney disease; I50.22 Chronic systolic (congestive) heart failure; N18.31 Chronic kidney disease, stage 3a; G89.29 Other chronic pain; Z79.01 Long term (current) use of anticoagulants; E78.00 Pure hypercholesterolemia, unspecified; I25.10 Atherosclerotic heart disease of native coronary artery without angina pectoris; I44.0 Atrioventricular block, first degree; Z79.82 Long term (current) use of aspirin; Z79.899 Other long term (current) drug therapy
CPT/HCPCS: 72131; 80053; 81001; 85025; 85610; 93005; 96361; 96374; 99284; J7040; A4216

== ENCOUNTER 2022-04-09 18:53 | Emergency (ER) | payer OTHER, MEDICARE, SELFPAY ==
[2022-04-09 18:53] VITALS: BP 126/60; PULSE 65; RESP 18; TEMP 36.6; O2SAT 98; BMI 23.6
[2022-04-09 19:21] VITALS: BP 107/52; PULSE 52; RESP 13; O2SAT 95
[2022-04-09] MEDS: Ondansetron ODT 4 MG Tablet 8 MG PO (20:51)
[2022-04-09] MEDS: Morphine 4 MG/ML Syringe IM (20:51)
--- NOTE | 2022-04-09 22:21 | ED.VIS.BACK ---
HPI History of Present Illness Chief Complaint: Back Informant: patient and family Associated Symptoms Associated Symptoms: Tingling (into BLE, chronic), Radiation to Right Leg and Radiation to Left Leg; Negative for Fever, Abdominal Pain, Unable to Ambulate, Unable to Transfer, Urinary Retention, Urinary Incontinence, Constipation or Fecal Incontinence Narrative Narrative: Patient was seen here yesterday for similar symptoms, presents again today because of back pain brought by his daughter. She is concerned about the fact that he is always in pain. He lives by himself, she lives down the street and helps him from time to time. Yesterday was seen and was offered home health, admission for placement, patient declined all of that and preferred to go home. He follows with pain management, he has had fentanyl patches weekly for a year or more for all of the symptoms which include pain in his low back, radiation into both lower extremities down to around the ankles, some tingling in both thighs, and occasionally his legs will give out on him transiently, causing him to stumble or fall, which he has not done lately. If he has his legs give out and are weak, weakness does not persist it is just brief. He denies any bowel or bladder dysfunction or saddle anesthesia, he has no new symptoms compared with yesterday when he was here in emergency department. At that visit, he had labs showing an INR of 1.3 among other things, and a CT. In comparison with his back on a CT abdomen/pelvis that was done about a week ago, it was noted by the radiologist that there was some lucency around some of the hardware and the possibility of some of the hardware loosening. The daughter states that she sent those images to [facility] and that they told her that indeed the hardware appeared to be loosening. It is unknown if the physician looked at images or if this was someone else just looking at the report, but it is Tuesday evening upon presentation here and she states that they told her that she should get her father seen as soon as possible and since it is Tuesday afternoon, the ER is your only option right now. Prior similar symptoms: Yes and With Prior Back Pain [facility] Medical History Acute respiratory failure with hypoxia Ambulates with cane Anemia Anemia due to chronic blood loss Anticoagulant long-term use Arthritis Atherosclerotic heart disease of [place] coronary artery without angina pectoris Atrial fibrillation Back pain Back pain due to injury Cardiology follow-up encounter Chest pain CHF (congestive heart failure) Chronic airway obstruction Chronic anticoagulation Chronic cough Chronic pain syndrome Chronic systolic (congestive) heart failure COPD (chronic obstructive pulmonary disease) COPD (chronic obstructive pulmonary disease) Difficulty swallowing Essential hypertension Gastric reflux GERD (gastroesophageal reflux disease) Heart attack High cholesterol History of atrial fibrillation History of atrial fibrillation History of CHF (congestive heart failure) History of echocardiogram History of edema History of GI bleed History of heart attack History of pain when walking History of stress test Hx of fracture of ankle Hx of fracture of ankle Hypertension Injury of back Injury of head and neck Irregular heartbeat Ischemic cardiomyopathy shelter current use of anticoagulant 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 On home oxygen therapy Osteoporosis Paroxysmal atrial fibrillation Pure hypercholesterolemia Restless legs Secondary pulmonary arterial hypertension Shortness of breath on exertion Smoker Spinal stenosis of lumbar region Stage 3a chronic kidney disease (CKD) Stroke TIA (transient ischemic attack) Tobacco use disorder Uncontrolled pain Wears dentures Wears glasses Home Medications rosuvastatin 40 mg tablet 40 mg PO QHS cholesterol 07/15/13 [History Last Taken 04/05/22] albuterol sulfate 90 mcg/actuation breath activated powder inhaler 2 puff inhalation Q4H PRN PRN Wheezing 09/25/15 [History Last Taken 04/06/22] cholecalciferol (vitamin D3) 25 mcg (1,000 unit) tablet 2,000 unit PO DAILY SUPPLEMENT 09/25/15 [History Last Taken 04/06/22] aspirin 81 mg tablet,delayed release 81 mg PO DAILY@0800 HEART HEALTH 06/24/16 [History Last Taken 04/06/22] folic acid 1 mg tablet 1 mg PO QHS SUPPLEMENT 06/24/16 [History Last Taken 04/05/22] isosorbide mononitrate 30 mg tablet,extended release 24 hr 30 mg PO DAILY BP 11/21/17 [History Last Taken 04/06/22] pantoprazole 40 mg tablet,delayed release 40 mg PO BID ACID REFLUX 01/02/18 [History Last Taken 04/06/22] zolpidem 10 mg tablet 10 mg PO QHS SLEEP 05/26/18 [History Last Taken 04/05/22] pregabalin 75 mg capsule 75 mg PO TID pain 07/28/18 [History Last Taken 04/06/22] metoprolol tartrate 25 mg tablet 12.5 mg PO BID Dose increased for Rapid Heart Rate 11/26/19 [History Last Taken 04/06/22] nitroglycerin 0.4 mg sublingual tablet 0.4 mg sublingual Q5M PRN Chest Pain #30 tabs 05/25/21 [Rx Last Taken Unknown] tiotropium 2.5 mcg-olodaterol 2.5 mcg/actuation mist for inhalation (Stiolto Respimat) 1 puff inhalation BID Check with primary doctor 06/18/21 [History Last Taken 04/06/22] buprenorphine 10 mcg/hour weekly transdermal patch 10 mcg transdermal FULLER pain 08/16/21 [History Last Taken 04/04/22] ipratropium 0.5 mg-albuterol 3 mg (2.5 mg base)/3 mL nebulization soln 3 ml inhalation 4X/DAY 11/25/21 [History Last Taken 04/06/22] ferrous sulfate 325 mg (65 mg iron) tablet 325 mg PO BID IRON SUPPLEMENT 04/06/22 [History Last Taken 04/06/22] warfarin 5 mg tablet 5 mg PO DAILY 04/06/22 [History Last Taken 04/05/22] furosemide 40 mg tablet 40 mg PO DAILY 04/09/22 [History Last Taken Unknown] Allergy/AdvReac Type Severity Reaction Status Date / Time No Known Allergies Allergy Verified 04/09/22 18:53 Family History Son , age 44 from [place] CAD (coronary artery disease) Myocardial infarction Sudden cardiac Brother CAD (coronary artery disease) Pt states all nine of his siblings have heart problems Sister CAD (coronary artery disease) Patient states all nine of his siblings have heart problems Surgical History H/O cardiac catheterization History of coronary artery stent placement (~06/28/11) History of esophagogastroduodenoscopy (EGD) (~10/2021) History of left heart catheterization History of lumbar fusion 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) Status post cardiac surgery Social History Smoking Status: Current every day smoker tobacco type: cigarettes alcohol intake: never substance use type: does not use caffeine: No ROS ROS ED Constitutional Constitutional ED: Denies chills or fever(s) Gastrointestinal Gastrointestinal: Denies abdominal pain, constipation, fecal incontinence, nausea or vomiting Genitourinary Genitourinary ED: Reports other Details: no urinary retention ; Denies abdominal discomfort, dysuria, urinary frequency or urinary incontinence Musculoskeletal Musculoskeletal: Reports as per HPI, back pain and extremity pain; Denies neck pain Integumentary Denies rash or wounds Neurologic Neurologic: Reports paresthesias; Denies headache(s) or weakness Psychiatric Psychiatric: Denies anxiety or suicidal ideation EXAM Physical Exam Const Vital Signs: 04/09/22 18:53 04/09/22 19:21 04/09/22 22:39 Temperature 97.8 F Temperature Source Temporal Pulse Rate 65 52 L 54 L Respiratory Rate 18 13 19 H Blood Pressure 126/60 H 107/52 L 129/65 H Blood Pressure Mean 82 70 86 Pulse Ox 98 95 94 Oxygen Delivery Method Room Air Room Air 04/09/22 22:39 Temperature Temperature Source Pulse Rate 52 L Respiratory Rate 17 Blood Pressure 129/65 H Blood Pressure Mean Pulse Ox 94 Oxygen Delivery Method Positive well nourished and well developed General Appearance ED: well developed and NAD HEENT Negative for trauma or tenderness Eyes PERRL and EOMs intact bilaterally Neck full ROM and supple GI normal to inspection, nondistended, normoactive bowel sounds, soft to palpation and non-tender Back/Spine normal to inspection Back/Spine Narrative: Attempted straight leg raises, I get to about 10 degrees on both sides and patient asked me to stop because of increased pain in his low back without radicular symptoms. Lumbar Spine / Lower Back: ROM limited; Negative for lumbar spinal tenderness or paraspinal muscle tenderness Extremity normal to inspection, full ROM and no pedal edema Neuro oriented x3 and no sensory deficits noted Sensorium / Orientation: alert Motor Exam: strength 5/5 throughout and clonus absent Deep Tendon Reflexes: Rt Patellar (L4): 1+, Lt Patellar (L4): 1+, Rt Ankle (S1): 1+ and Lt Ankle (S1): 1+ Deep Tendon Reflexes Back: Rt Patellar (L4): 1+, Lt Patellar (L4): 1+, Rt Ankle (S1): 1+ and Lt Ankle (S1): 1+ Plantar Reflex: Downgoing: bilateral Psych mental status grossly normal and thought process normal Skin no rashes or lesions noted and no wounds MDM MDM MDM Narrative Medical decision making narrative: After examining the patient, he is neurologically intact, I offered him a dose of analgesics which he accepted, he was given 4 mg of morphine IM with some prophylactic Zofran and subsequently I witnessed him walking back and forth to the bathroom in no discomfort and doing extremely well. He does not have signs or symptoms of cauda equina syndrome or conus medullaris at this time. Initially the daughter was adamant to staff that they were here in the ER to have an emergent spine consult. I advised her that that is not indicated. However I was happy to discuss with our installation specialist on-call, who tonmarcello was Dr. Richardson, and see if he had any other suggestions and/or if he would be willing to evaluate his CT scans and him clinically as an outpatient rather than having to go to [place] if they would prefer to stay locally which they do. Dr. Richardson was gracious enough to allow me to describe the CT results to him and the comparison, and would be happy to see the patient after the weekend in the office, in less than 1 week which I think is excellent. The patient is okay with this. He was offered admission for placement and/or inpatient observation again even if just for pain control understanding that it would be a 23-hour observation likely, and/or home health evaluation. He declines all this and states he is doing fine at home, and he would love to follow-up with a installation specialist after the weekend. He understands and since he is in pain management getting narcotics, I am unable to write him a prescription for controlled substances. With regards to his bradycardia, he seems to always be in the 40s. He had some occasional PVCs here. He is not having symptomatic bradycardia, even when he walks back and forth from the bathroom and he felt fine. I do not think this needs to be addressed emergently right now. I explained all this to the daughter, and the fact that he is in no immediate danger, and as a matter fact, Dr. Richardson suggested that there is a possibility these findings may even be artifactual and that there is not true loosening of the hardware. I discussed symptoms of cauda equina syndrome with the daughter and the patient, and if he develops any of these that he should be reevaluated in the emergency department, although it is likely that the age of his hardware could be incompatible with MRI. They understand this at the end and are comfortable going home at this time. Discharge Plan Triage Chief Complaint: Back ED Provider: Yusuf Corado Dx/Rx/DC Orders Clinical Impression: Acute exacerbation of chronic low back pain Instructions: ED Back Care Tips Prescriptions: No Action isosorbide mononitrate 30 mg tablet extended release 24 hr 30 mg PO DAILY metoprolol tartrate 25 mg tablet 12.5 mg PO BID nitroglycerin 0.4 mg tablet, sublingual 0.4 mg SUBLINGUAL Q5M PRN (Reason: Chest Pain) Qty: 30 0RF Label Comments: chest pain ipratropium-albuterol 0.5 mg-3 mg(2.5 mg base)/3 mL solution for nebulization 3 ml INHALATION 4X/DAY Label Comments: breathing rosuvastatin 40 MG tablet 40 mg PO QHS Label Comments: cholesterol pantoprazole 40 mg tablet,delayed release (DR/EC) 40 mg PO BID Label Comments: acid reflux cholecalciferol (vitamin D3) 1,000 UNIT tablet 2,000 unit PO DAILY Label Comments: supplement albuterol sulfate 90 MCG aerosol powdr breath activated 2 puff INHALATION Q4H PRN PRN (Reason: Wheezing) Label Comments: breathing aspirin 81 MG tablet 81 mg PO DAILY@0800 Hold Instructions: Resume on 04/07/22. Label Comments: heart health WAS TOLD TO STOP FOR SURGERY folic acid 1 MG tablet 1 mg PO QHS zolpidem 10 MG tablet 10 mg PO QHS pregabalin 75 MG capsule 75 mg PO TID Stiolto Respimat 2.5-2.5 mcg/actuation Mist 1 puff INHALATION BID buprenorphine 10 mcg/hour patch weekly 10 mcg transdermal FULLER Label Comments: APPLY 1 (ONE) patch transdermally and wear for 1 (ONE) week, sundays ferrous sulfate 325 MG tablet 325 mg PO BID Label Comments: iron supplement warfarin 5 mg tablet 5 mg PO DAILY Protocol: Dose Management Condition: Tuesday Dose/Route: 5 mg Instruction: 1 x 5 mg tablet Condition: Tuesday Dose/Route: 5 mg Instruction: 1 x 5 mg tablet Condition: Tuesday Dose/Route: 5 mg Instruction: 1 x 5 mg tablet Condition: Tuesday Dose/Route: 5 mg Instruction: 1 x 5 mg tablet Condition: Dose/Route: 5 mg Instruction: 1 x 5 mg tablet Condition: Tuesday Dose/Route: 5 mg Instruction: 1 x 5 mg tablet Condition: Tuesday Dose/Route: 5 mg Instruction: 1 x 5 mg tablet Protocol Text: Adjustment Start Date: Tuesday04/07/22 INR Value: 1.3 INR Date: 04/06/22 furosemide 40 mg tablet 40 mg PO DAILY Primary Care Provider: Guillermo Pritchard Referrals: Jordy Richardson DO [Med Staff - Active Staff] - As soon as possible (call for appt to be seen this coming week (of 04/12/22)) Guillermo Pritchard MD [Primary Care Provider] - Disposition Disposition: Home, Self Care Discharge Date/Time: 04/09/22 22:40
[2022-04-09 22:39] VITALS: BP 129/65; PULSE 52; PULSE 54; RESP 17; RESP 19; O2SAT 94
== END 2022-04-09 22:40 | disposition home or self-care (01) ==
PROVIDERS: Emergency Provider Emergency Medicine; PCP Family Medicine; Visit Provider Emergency Medicine
DX: M54.50 Low back pain, unspecified (principal); J44.9 Chronic obstructive pulmonary disease, unspecified; I13.0 Hypertensive heart and chronic kidney disease with heart failure and stage 1 through stage 4 chronic kidney disease, or unspecified chronic kidney disease; I50.22 Chronic systolic (congestive) heart failure; N18.31 Chronic kidney disease, stage 3a; G89.29 Other chronic pain; I25.10 Atherosclerotic heart disease of native coronary artery without angina pectoris; I49.3 Ventricular premature depolarization; E78.00 Pure hypercholesterolemia, unspecified; Z79.82 Long term (current) use of aspirin; Z79.01 Long term (current) use of anticoagulants; Z79.899 Other long term (current) drug therapy; R20.2 Paresthesia of skin
CPT/HCPCS: 36415; 85025; 85610; 96372; 99283

== ENCOUNTER → 2022-04-09 | Outpatient (CLI) | payer OTHER, SELFPAY ==
[2022-04-09 09:52] LABS: Absolute Lymphocyte Count 0.48 X10^3/uL (0.83-4.51); Absolute Neutrophil Count 1.8 X10^3/uL (2.0-7.7); Basophil# 0.04 X10^3/uL; Basophil% 1.6 % (0-1); Eosinophil# 0.07 X10^3/uL; Eosinophils% 2.7 % (0-5); Hematocrit 32.9 % (40-54); Hemoglobin 9.7 g/dL (13.0-16.5); Lymphocyte # 0.48 X10^3/ul (0.83-4.51); Lymphocyte % 18.6 % (19-41); Mean Corp Hgb Conc 29.5 g/dL (32-36); Mean Corpuscular Hgb 30.7 pg (27.0-32.0); Mean Corpuscular Volume 104.1 fL (80-94); Mean Platelet Vol. 11.4 fl (6.2-12.0); Monocyte# 0.19 X10^3/uL; Monocyte% 7.4 % (0-10); NRBC Flagged by Analyzer 0 % (0-5); Neutrophil # 1.79 X10^3/uL (2.7-7.7); Neutrophil % 69.3 % (47-70); POSITIVE DIFFERENTIAL YES; Platelet Count 136 K/mm3 (150-450); RBC Distribution Width CV 16.2 % (11.6-14.6); RBC Distribution Width SD 62.4 fl (35.1-43.9); Red Blood Count 3.16 M/mm3 (4.6-6.2); White Blood Count 2.6 K/mm3 (4.4-11.0)
[2022-04-09 10:10] LABS: International Normalized Ratio 1.3
[2022-04-09 10:12] LABS: Differential Indicated SCAN CRITERIA MET
[2022-04-12 12:34] LABS: Pathologist Review Reviewed
== END | disposition home or self-care (01) ==
LOC: LAB 08:38
PROVIDERS: PCP Family Medicine; Visit Provider Internal Medicine Cardiovascular Disease
DX: I48.0 Paroxysmal atrial fibrillation (principal); Z79.01 Long term (current) use of anticoagulants; Z95.2 Presence of prosthetic heart valve
CPT/HCPCS: 36415; 85025; 85610

== ENCOUNTER → 2022-04-21 | Outpatient (CLI) | payer MEDICARE, SELFPAY ==
[2022-04-21 11:10] LABS: INR Fingerstick 3.3; Prothrombin Time Fingerstick 37.8 SEC (11.7-14.9)
== END | disposition home or self-care (01) ==
LOC: LAB 08:32
PROVIDERS: PCP Family Medicine; Referring Provider Internal Medicine Cardiovascular Disease; Visit Provider Internal Medicine Cardiovascular Disease
DX: I48.0 Paroxysmal atrial fibrillation (principal); Z79.01 Long term (current) use of anticoagulants; Z95.2 Presence of prosthetic heart valve
CPT/HCPCS: 36416; 85610

== ENCOUNTER → 2022-05-07 | Outpatient (CLI) | payer MEDICARE, SELFPAY ==
[2022-05-07 10:50] LABS: Prothrombin Time Fingerstick 44.8 SEC (11.7-14.9)
== END | disposition home or self-care (01) ==
LOC: LAB 09:12
PROVIDERS: PCP Family Medicine; Visit Provider Internal Medicine Cardiovascular Disease
DX: I48.0 Paroxysmal atrial fibrillation (principal); Z79.01 Long term (current) use of anticoagulants; Z95.2 Presence of prosthetic heart valve
CPT/HCPCS: 36416; 85610

== ENCOUNTER → 2022-05-14 | Outpatient (CLI) | payer MEDICARE, SELFPAY ==
[2022-05-14 10:25] LABS: INR Fingerstick 4.1; Prothrombin Time Fingerstick 45.3 SEC (11.7-14.9)
[2022-05-14 12:01] LABS: International Normalized Ratio 4.3; Prothrombin Time (Protime)PT. 41.4 SECONDS (11.7-14.9)
== END | disposition home or self-care (01) ==
LOC: LAB 08:14
PROVIDERS: PCP Family Medicine; Visit Provider Internal Medicine Cardiovascular Disease
DX: I48.0 Paroxysmal atrial fibrillation (principal); Z79.01 Long term (current) use of anticoagulants; Z95.2 Presence of prosthetic heart valve
CPT/HCPCS: 36416; 85610

== ENCOUNTER → 2022-05-17 | Outpatient (CLI) | payer MEDICARE, SELFPAY ==
[2022-05-17 10:55] LABS: INR Fingerstick 3.2; Prothrombin Time Fingerstick 36.2 SEC (11.7-14.9)
== END | disposition home or self-care (01) ==
LOC: LAB 09:21
PROVIDERS: PCP Family Medicine; Visit Provider Internal Medicine Cardiovascular Disease
DX: I48.0 Paroxysmal atrial fibrillation (principal); Z79.01 Long term (current) use of anticoagulants; Z95.2 Presence of prosthetic heart valve
CPT/HCPCS: 36416; 85610

== ENCOUNTER → 2022-05-31 | Outpatient (CLI) | payer MEDICARE, SELFPAY ==
[2022-05-31 11:12] LABS: Absolute Lymphocyte Count 0.59 X10^3/uL (0.83-4.51); Absolute Neutrophil Count 2.8 X10^3/uL (2.0-7.7); Basophil# 0.03 X10^3/uL; Basophil% 0.8 % (0-1); Eosinophil# 0.05 X10^3/uL; Eosinophils% 1.3 % (0-5); Hemoglobin 8.3 g/dL (13.0-16.5); Lymphocyte # 0.59 X10^3/ul (0.83-4.51); Lymphocyte % 15.6 % (19-41); Mean Corp Hgb Conc 28.6 g/dL (32-36); Mean Corpuscular Hgb 32.7 pg (27.0-32.0); Mean Corpuscular Volume 114.2 fL (80-94); Mean Platelet Vol. 11.9 fl (6.2-12.0); Monocyte# 0.34 X10^3/uL; NRBC Flagged by Analyzer 0 % (0-5); Neutrophil # 2.75 X10^3/uL (2.7-7.7); POSITIVE DIFFERENTIAL YES; POSITIVE MORPHOLOGY YES; Platelet Count 151 K/mm3 (150-450); RBC Distribution Width CV 17.1 % (11.6-14.6); RBC Distribution Width SD 71.8 fl (35.1-43.9); Red Blood Count 2.54 M/mm3 (4.6-6.2); White Blood Count 3.8 K/mm3 (4.4-11.0)
[2022-05-31 11:18] LABS: Differential Indicated SCAN CRITERIA MET
[2022-05-31 11:21] LABS: International Normalized Ratio 2.6; Prothrombin Time (Protime)PT. 27.5 SECONDS (11.7-14.9)
[2022-05-31 11:38] LABS: Anion Gap 4 (5-15); BUN 23 mg/dL (7-18); BUN/Creat Ratio 13.4 RATIO (10-20); Calcium,Total 8.4 mg/dL (8.5-10.1); Chloride 109 mmol/L (98-107); Creatinine, Serum 1.72 mg/dL (0.70-1.30); EST Glomerular Filtration Rate 41 mL/min (>60); Est Glom Filt Rate - Afr Amer 49 mL/min (>60); Glucose 126 mg/dL (74-106); Potassium 3.9 mmol/L (3.5-5.1); Sodium Level 143 mmol/L (136-145)
[2022-05-31 11:53] LABS: Anisocytosis 2+; Differential Comment SCANNED; Hypochromasia 1+; Macrocytosis 1+
[2022-06-01 15:02] LABS: Pathologist Review Reviewed
== END | disposition home or self-care (01) ==
LOC: LAB 09:00
PROVIDERS: PCP Family Medicine; Referring Provider Nurse Practitioner Family; Visit Provider Nurse Practitioner Family
DX: D50.0 Iron deficiency anemia secondary to blood loss (chronic) (principal); I48.0 Paroxysmal atrial fibrillation; Z79.01 Long term (current) use of anticoagulants; Z95.2 Presence of prosthetic heart valve
CPT/HCPCS: 36415; 80048; 85025; 85610

== ENCOUNTER 2022-06-09 12:01 | Emergency (ER) | payer MEDICARE, SELFPAY ==
[2022-06-09 12:06] VITALS: PULSE 57; RESP 18; TEMP 36.7; O2SAT 99; BMI 24.2
--- NOTE | 2022-06-09 12:37 | EKG12_ITS ---
Test Reason : CHRYSTAL Blood Pressure : / mmHG Vent. Rate : 054 BPM Atrial Rate : 059 BPM P-R Int : 000 ms QRS Dur : 136 ms QT Int : 498 ms P-R-T Axes : 000 -56 105 degrees QTc Int : 472 ms Atrial fibrillation with premature ventricular or aberrantly conducted complexes Left axis deviation Right bundle branch block Septal infarct , age undetermined Abnormal ECG Confirmed by JOSÉ KO, WEI ([id number]), film editor MIMA VALDEZ ([id number]) on 06/14/2022 11:39:32 AM Referred By: DANA Confirmed By:WEI KUMAR MD
[2022-06-09 12:42] VITALS: O2SAT 95
[2022-06-09 12:59] LABS: Absolute Neutrophil Count 2.8 X10^3/uL (2.0-7.7); Basophil# 0.03 X10^3/uL; Basophil% 0.8 % (0-1); Eosinophil# 0.04 X10^3/uL; Eosinophils% 1.1 % (0-5); Hematocrit 29.9 % (40-54); Hemoglobin 8.2 g/dL (13.0-16.5); Lymphocyte % 13.4 % (19-41); Mean Corp Hgb Conc 27.4 g/dL (32-36); Mean Corpuscular Hgb 30.6 pg (27.0-32.0); Mean Corpuscular Volume 111.6 fL (80-94); NRBC Flagged by Analyzer 0 % (0-5); Neutrophil # 2.84 X10^3/uL (2.7-7.7); Neutrophil % 76.2 % (47-70); POSITIVE DIFFERENTIAL YES; POSITIVE MORPHOLOGY YES; Platelet Count 137 K/mm3 (150-450); RBC Distribution Width CV 16.1 % (11.6-14.6); RBC Distribution Width SD 65.9 fl (35.1-43.9); Red Blood Count 2.68 M/mm3 (4.6-6.2); White Blood Count 3.7 K/mm3 (4.4-11.0)
--- NOTE | 2022-06-09 13:02 | RAD_ITS ---
HISTORY: chest pain. TECHNIQUE: XR Chest 1 View. COMPARISON: 10/22/2021. FINDINGS: CARDIOMEDIASTINAL BORDERS: Cardiac silhouette within normal limits in size. Mediastinal contour unchanged with midline sternotomy and calcification of the aorta. LUNGS: Mild interstitial bibasilar opacities noted. PLEURA: Trace right pleural effusion. OSSEOUS STRUCTURES: Degenerative change. RAD/Chest 1 View (Portable) IMPRESSION: Trace right pleural effusion with mild bibasilar interstitial edema or inflammation. Electronically Signed: Maria A Gutierrez MD at 13:51 EST ,
[2022-06-09 13:07] LABS: Differential Indicated SCAN CRITERIA MET
[2022-06-09 13:08] VITALS: BP 113/42; PULSE 49; RESP 16; O2SAT 96
[2022-06-09 13:11] LABS: International Normalized Ratio 2.7
[2022-06-09 13:17] LABS: Anion Gap 4 (5-15); BUN 19 mg/dL (7-18); BUN/Creat Ratio 11.1 RATIO (10-20); Calcium,Total 8.5 mg/dL (8.5-10.1); Chloride 110 mmol/L (98-107); Creatinine, Serum 1.71 mg/dL (0.70-1.30); EST Glomerular Filtration Rate 41 mL/min (>60); Est Glom Filt Rate - Afr Amer 49 mL/min (>60); Glucose 104 mg/dL (74-106); Potassium 4.1 mmol/L (3.5-5.1); Sodium Level 144 mmol/L (136-145); Troponin-I HS (w/2H Reflex) 22 pg/mL (3.0-78.0)
[2022-06-09 13:37] LABS: Anisocytosis 2+; Differential Comment SCANNED; Hypochromasia 1+; Macrocytosis 1+; Microcytosis 1+
--- NOTE | 2022-06-09 13:58 | EDS_ITS ---
HPI History of Present Illness Chief Complaint: Palpitations Narrative Narrative: 82-year-old male presenting with generalized weakness. He states has been this way the last few days. He does not have chest pain. He is not nauseous. Is not vomiting. Denies fever or chills. He does not have a cough but he does state he is dyspneic sometimes when walking. He states he is not lightheaded with walking. He was seen by Dr. Pritchard today who had concerned that his heart rate was fluctuating. He states he was in the 30s in his office. Patient is on metoprolol 12.5 mg p.o. twice daily. He is also anticoagulated on Coumadin. His last INR was therapeutic. Patient also has a history of anemia. He states he sees hematology for this. He states that he does not have a known source of GI bleed but he does not make blood well. Recently had endoscopy by Dr. Muir. [facility] Medical History Acute respiratory failure with hypoxia Ambulates with cane Anemia Anemia due to chronic blood loss Anticoagulant long-term use Arthritis Atherosclerotic heart disease of [place] coronary artery without angina pectoris Atrial fibrillation Back pain Back pain due to injury Cardiology follow-up encounter Chest pain CHF (congestive heart failure) Chronic airway obstruction Chronic anticoagulation Chronic cough Chronic pain syndrome Chronic systolic (congestive) heart failure COPD (chronic obstructive pulmonary disease) COPD (chronic obstructive pulmonary disease) Difficulty swallowing Essential hypertension Gastric reflux GERD (gastroesophageal reflux disease) Heart attack High cholesterol History of atrial fibrillation History of atrial fibrillation History of CHF (congestive heart failure) History of echocardiogram History of edema History of GI bleed History of heart attack History of pain when walking History of stress test Hx of fracture of ankle Hx of fracture of ankle Hypertension Injury of back Injury of head and neck Irregular heartbeat Ischemic cardiomyopathy shelter current use of anticoagulant 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 On home oxygen therapy Osteoporosis Paroxysmal atrial fibrillation Pure hypercholesterolemia Restless legs Secondary pulmonary arterial hypertension Shortness of breath on exertion Smoker Spinal stenosis of lumbar region Stage 3a chronic kidney disease (CKD) Stroke TIA (transient ischemic attack) Tobacco use disorder Uncontrolled pain Wears dentures Wears glasses Home Medications albuterol sulfate 90 mcg/actuation breath activated powder inhaler 2 puff inhalation Q4H PRN PRN Wheezing 09/25/15 [History Last Taken 04/06/22] cholecalciferol (vitamin D3) 25 mcg (1,000 unit) tablet 2,000 unit PO DAILY SUPPLEMENT 09/25/15 [History Last Taken 04/06/22] aspirin 81 mg tablet,delayed release 81 mg PO DAILY@0800 HEART HEALTH 06/24/16 [History Last Taken 04/06/22] folic acid 1 mg tablet 1 mg PO QHS SUPPLEMENT 06/24/16 [History Last Taken 04/05/22] isosorbide mononitrate 30 mg tablet,extended release 24 hr 30 mg PO DAILY BP 11/21/17 [History Last Taken 04/06/22] pantoprazole 40 mg tablet,delayed release 40 mg PO BID ACID REFLUX 01/02/18 [History Last Taken 04/06/22] zolpidem 10 mg tablet 10 mg PO QHS SLEEP 05/26/18 [History Last Taken 04/05/22] pregabalin 75 mg capsule 75 mg PO TID pain 07/28/18 [History Last Taken 04/06/22] metoprolol tartrate 25 mg tablet 12.5 mg PO BID Dose increased for Rapid Heart Rate 11/26/19 [History Last Taken 04/06/22] nitroglycerin 0.4 mg sublingual tablet 0.4 mg sublingual Q5M PRN Chest Pain #30 tabs 05/25/21 [Rx Last Taken Unknown] tiotropium 2.5 mcg-olodaterol 2.5 mcg/actuation mist for inhalation (Stiolto Respimat) 1 puff inhalation BID Check with primary doctor 06/18/21 [History Last Taken 04/06/22] buprenorphine 10 mcg/hour weekly transdermal patch 10 mcg transdermal FULLER pain 08/16/21 [History Last Taken 04/04/22] ipratropium 0.5 mg-albuterol 3 mg (2.5 mg base)/3 mL nebulization soln 3 ml inhalation 4X/DAY 11/25/21 [History Last Taken 04/06/22] ferrous sulfate 325 mg (65 mg iron) tablet 325 mg PO BID IRON SUPPLEMENT 04/06/22 [History Last Taken 04/06/22] warfarin 5 mg tablet 5 mg PO .COMPLEX #180 tabs 04/20/22 [Rx Last Taken Unknown] furosemide 40 mg tablet 40 mg PO Q OTHER DAY 05/27/22 [History Last Taken Unknown] Allergy/AdvReac Type Severity Reaction Status Date / Time No Known Allergies Allergy Verified 05/27/22 13:00 Family History Son , age 44 from [place] CAD (coronary artery disease) Myocardial infarction Sudden cardiac Brother CAD (coronary artery disease) Pt states all nine of his siblings have heart problems Sister CAD (coronary artery disease) Patient states all nine of his siblings have heart problems Surgical History H/O cardiac catheterization History of coronary artery stent placement (~06/28/11) History of esophagogastroduodenoscopy (EGD) (~10/2021) History of left heart catheterization History of lumbar fusion 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) Status post cardiac surgery Social History Smoking Status: Current every day smoker tobacco type: cigarettes alcohol intake: never substance use type: does not use caffeine: No ROS ROS ED Constitutional Constitutional ED: Denies chills or fever(s) Eyes Eyes: Denies change in vision or diplopia ENT ENT ED: Denies rhinorrhea or sore throat Cardiovascular Cardiovascular: Denies chest pain or palpitations Respiratory/Chest Respiratory/Chest: Denies cough or dyspnea Gastrointestinal Gastrointestinal: Denies abdominal pain, nausea or vomiting Genitourinary Genitourinary ED: Denies dysuria or hematuria Musculoskeletal Musculoskeletal: Denies arthralgias or back pain Integumentary Denies abscess Neurologic Neurologic: Denies headache(s) or paresthesias Psychiatric Psychiatric: Denies anxiety or depression EXAM Physical Exam Const Vital Signs: 06/09/22 12:06 06/09/22 12:42 06/09/22 13:08 Temperature 98.1 F Temperature Source Oral Pulse Rate 57 L 49 L Respiratory Rate 18 16 Blood Pressure 113/42 L Blood Pressure Mean 65 Pulse Ox 99 95 96 Oxygen Delivery Method Room Air Room Air Room Air Positive well nourished General Appearance ED: NAD; Negative for pallor HEENT Reports moist mucous membranes Negative for trauma Eyes PERRL and EOMs intact bilaterally General Eye ED: Negative for pale conjunctiva or scleral icterus Neck no lymphadenopathy Resp normal respiratory effort Auscultation: Negative for rales, rhonchi or wheezes Cardio regular rhythm Rate: bradycardia GI normal to inspection, nondistended, normoactive bowel sounds Neuro oriented x3 and CN's II-XII intact bilaterally Sensorium / Orientation: alert Psych mental status grossly normal Skin no rashes or lesions noted General Skin Exam: Negative for jaundice or pallor MDM MDM MDM Narrative Medical decision making narrative: Patient presenting with generalized weakness. He is not complaining of chest pain. He only has some dyspnea when he ambulates and he states this is mild. No fevers, chills, cough. States its been like this for a few days. He saw his PCP who sent him to the ER concern for his low heart rates. Patient is on metoprolol 12.5 mg p.o. twice daily. He is also on Coumadin for history of A. fib. Today his INR is therapeutic. It is 2.7. EKG shows atrial fibrillation with rate of 54 bpm,. There is concern for heart block given the patient has had slow and fast heart rates over the last couple of days. Blood work was obtained and his CBC shows leukopenia however those leukopenic. Hemoglobin at baseline 8.2. Platelets are low at 137. Patient does have history of pancytopenia. Creatinine is still about the same at 1.71. Electrolytes are normal. High-sensitivity troponin is 22. Chest x-ray on my interpretation shows a trace right pleural effusion. Discussed with Dr. Oh who recommended the patient's discontinue his metoprolol and hold his Coumadin. He will take him for a pacemaker placement on Tuesday. He was discussed with he and his daughter at length. They are comfortable with this plan. Return precautions discussed. Impression: 1. A. fib 2. Bradycardia 3. Generalized weakness 4. Pleural effusion 5. Anemia 6. Leukopenia 7. Thrombocytopenia Lab Data Attestation: I reviewed the patient's lab results. Labs: Laboratory Results - last 24 hr 06/09/22 06/09/22 06/09/22 12:17 12:17 12:17 WBC 3.7 L RBC 2.68 L Hgb 8.2 L Hct 29.9 L MCV 111.6 H MCH 30.6 MCHC 27.4 L RDW Std Deviation 65.9 H RDW Coeff of [place]aly[place] 16.1 H Plt Count 137 L MPV 12.0 Immature Gran % (Auto) 0.500 Neut % (Auto) 76.2 H Lymph % (Auto) 13.4 L [place] % (Auto) 8.0 Eos % (Auto) 1.1 Baso % (Auto) 0.8 Absolute Neuts (auto) 2.8 Absolute Lymphs (auto) 0.50 L Nucleated RBC % 0 Differential Comment SCANNED Diff Path Review May foll Hypochromasia 1+ Anisocytosis 2+ Microcytosis 1+ Macrocytosis 1+ PT 28.0 H INR 2.7 Sodium 144 Potassium 4.1 Chloride 110 H Carbon Dioxide 30.0 Anion Gap 4 L BUN 19 H Creatinine 1.71 H Estim Creat Clear Calc 33.20 Est GFR (MDRD) Af Amer 49 L Est GFR (MDRD) Non-Af 41 L BUN/Creatinine Ratio 11.1 Glucose 104 Calcium 8.5 Troponin I High Sens 22 Radiography Diagnostic Testing: Clinical Impression(s) from Imaging Studies Chest X-Ray 06/09/22 13:02 IMPRESSION: Trace right pleural effusion with mild bibasilar interstitial edema or inflammation. Electronically Signed: Maria A Gutierrez MD at 13:51 EST Reading Location ID and State: [facility] / [place] Tel , Service support , Discharge Plan Triage Chief Complaint: Palpitations ED Provider: Nnamdi Henry Dx/Rx/DC Orders Prescriptions: No Action isosorbide mononitrate 30 mg tablet extended release 24 hr 30 mg PO DAILY metoprolol tartrate 25 mg tablet 12.5 mg PO BID nitroglycerin 0.4 mg tablet, sublingual 0.4 mg SUBLINGUAL Q5M PRN (Reason: Chest Pain) Qty: 30 0RF Label Comments: chest pain ipratropium-albuterol 0.5 mg-3 mg(2.5 mg base)/3 mL solution for nebulization 3 ml INHALATION 4X/DAY Label Comments: breathing furosemide 40 mg tablet 40 mg PO Q OTHER DAY pantoprazole 40 mg tablet,delayed release (DR/EC) 40 mg PO BID Label Comments: acid reflux cholecalciferol (vitamin D3) 1,000 UNIT tablet 2,000 unit PO DAILY Label Comments: supplement albuterol sulfate 90 MCG aerosol powdr breath activated 2 puff INHALATION Q4H PRN PRN (Reason: Wheezing) Label Comments: breathing aspirin 81 MG tablet 81 mg PO DAILY@0800 Hold Instructions: Resume on 04/07/22. Label Comments: heart health WAS TOLD TO STOP FOR SURGERY folic acid 1 MG tablet 1 mg PO QHS zolpidem 10 MG tablet 10 mg PO QHS pregabalin 75 MG capsule 75 mg PO TID Stiolto Respimat 2.5-2.5 mcg/actuation Mist 1 puff INHALATION BID buprenorphine 10 mcg/hour patch weekly 10 mcg transdermal FULLER Label Comments: APPLY 1 (ONE) patch transdermally and wear for 1 (ONE) week, sundays ferrous sulfate 325 MG tablet 325 mg PO BID Label Comments: iron supplement warfarin 5 mg tablet 5 mg PO .COMPLEX Qty: 180 3RF Protocol: Dose Management Condition: Tuesday Dose/Route: 2.5 mg Instruction: 0.5 x 5 mg tablets Condition: Tuesday Dose/Route: 5 mg Instruction: 1 x 5 mg tablet Condition: Tuesday Dose/Route: 5 mg Instruction: 1 x 5 mg tablet Condition: Tuesday Dose/Route: 5 mg Instruction: 1 x 5 mg tablet Condition: Dose/Route: 5 mg Instruction: 1 x 5 mg tablet Condition: Tuesday Dose/Route: 5 mg Instruction: 1 x 5 mg tablet Condition: Tuesday Dose/Route: 2.5 mg Instruction: 0.5 x 5 mg tablets Protocol Text: Adjustment Start Date: Tuesday05/31/22 INR Value: 2.6 INR Date: 05/31/22 Recheck Date: 06/21/22 Rx Instructions: 5 mg orally daily except 7.5 mg Tue and Tuesday, or as directed; dose changes often so give extra pills; Primary Care Provider: Guillermo Pritchard Referrals: Guillermo Pritchard MD [Primary Care Provider] -
--- NOTE | 2022-06-09 14:19 | PCM.CONS.C ---
Assessment & Plan Assessment/Plan (1) Atrial fibrillation: PLAN: Patient presents with atrial fibrillation with a slow ventricular response rate. My recommendation at this time with to discontinue the beta-zach and hold the anticoagulation for now and consider a permanent pacemaker. I did discuss the above with him as well as his daughter they understand and agree to proceed. We will schedule the above for the next few days. (2) Atherosclerotic heart disease of [place] coronary artery without angina pectoris: QUALIFIERS: [place] vs. transplanted heart: [place] heart Qualified Code(s): I25.10 - Atherosclerotic heart disease of [place] coronary artery without angina pectoris PLAN: He does have a history of coronary disease and appears to be stable at this particular time without any angina the plan to be to continue current medical therapy. (3) Essential hypertension: PLAN: His blood pressure appears to be under good control at this particular time I would not recommend that we make any major changes other than discontinuing the beta-zach temporarily. This will be restarted after the procedure. (4) CHF (congestive heart failure): PLAN: He does have evidence of diastolic heart failure and the plan to be to continue him on the medical therapy as stipulated by his primary care point of care technician. 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 He appears to be stable at this time with respect to the above. He is therapeutically anticoagulated with an INR of 2.7. At this time after discussion it was felt that we should let the INR drift and then perform the procedure on Tuesday as this is a holiday week and he is relatively asymptomatic. He would have his INR checked at the morning of the procedure. Thank you for allowing me to participate in the care of your patient. Please don't hesitate to call if any issues arise. HPI Consult Data Date of Consult: 06/09/22 HPI Narrative HPI Narrative: REBECCA ARRIOLA, is a 82 M who presents after being sent here by his primary physician because the patient was feeling weak. He was previously being followed by Dr. Guillermo Bearden of the heart group. He has a history CAD, CABG (1992-[facility]-RED to the LAD), subsequent PTCA/BMS (LAD/LCx-2010 and LCx-2012), status post AVR (1992-[facility]-23 mm [place] mechanical aortic valve prosthesis), atrial fibrillation, hyperlipidemia, and hypertension.? Review of his EKG in the emergency room demonstrated atrial fibrillation with a ventricular response rate of 45 bpm with premature ventricular complexes. He has not had any symptoms suggestive of chest pain presyncope or syncope. He has just been feeling weak. He has had no dizziness or diaphoresis near syncope or syncope. It appears that his last echocardiogram had demonstrated an ejection fraction of 45% with mild left atrial enlargement moderate to severe mitral calcification and a bioprosthetic valve though it says that he did have a mechanical aortic valve. [facility] Medical History Acute respiratory failure with hypoxia Ambulates with cane Anemia Anemia due to chronic blood loss Anticoagulant long-term use Arthritis Atherosclerotic heart disease of [place] coronary artery without angina pectoris Atrial fibrillation Back pain Back pain due to injury Cardiology follow-up encounter Chest pain CHF (congestive heart failure) Chronic airway obstruction Chronic anticoagulation Chronic cough Chronic pain syndrome Chronic systolic (congestive) heart failure COPD (chronic obstructive pulmonary disease) COPD (chronic obstructive pulmonary disease) Difficulty swallowing Essential hypertension Gastric reflux GERD (gastroesophageal reflux disease) Heart attack High cholesterol History of atrial fibrillation History of atrial fibrillation History of CHF (congestive heart failure) History of echocardiogram History of edema History of GI bleed History of heart attack History of pain when walking History of stress test Hx of fracture of ankle Hx of fracture of ankle Hypertension Injury of back Injury of head and neck Irregular heartbeat 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 On home oxygen therapy Osteoporosis Paroxysmal atrial fibrillation Pure hypercholesterolemia Restless legs Secondary pulmonary arterial hypertension Shortness of breath on exertion Smoker Spinal stenosis of lumbar region Stage 3a chronic kidney disease (CKD) Stroke TIA (transient ischemic attack) Tobacco use disorder Uncontrolled pain Wears dentures Wears glasses Home Medications albuterol sulfate 90 mcg/actuation breath activated powder inhaler 2 puff inhalation Q4H PRN PRN Wheezing 09/25/15 [History Last Taken 04/06/22] cholecalciferol (vitamin D3) 25 mcg (1,000 unit) tablet 2,000 unit PO DAILY SUPPLEMENT 09/25/15 [History Last Taken 04/06/22] aspirin 81 mg tablet,delayed release 81 mg PO DAILY@0800 HEART HEALTH 06/24/16 [History Last Taken 04/06/22] folic acid 1 mg tablet 1 mg PO QHS SUPPLEMENT 06/24/16 [History Last Taken 04/05/22] isosorbide mononitrate 30 mg tablet,extended release 24 hr 30 mg PO DAILY BP 11/21/17 [History Last Taken 04/06/22] pantoprazole 40 mg tablet,delayed release 40 mg PO BID ACID REFLUX 01/02/18 [History Last Taken 04/06/22] zolpidem 10 mg tablet 10 mg PO QHS SLEEP 05/26/18 [History Last Taken 04/05/22] pregabalin 75 mg capsule 75 mg PO TID pain 07/28/18 [History Last Taken 04/06/22] metoprolol tartrate 25 mg tablet 12.5 mg PO BID Dose increased for Rapid Heart Rate 11/26/19 [History Last Taken 04/06/22] nitroglycerin 0.4 mg sublingual tablet 0.4 mg sublingual Q5M PRN Chest Pain #30 tabs 05/25/21 [Rx Last Taken Unknown] tiotropium 2.5 mcg-olodaterol 2.5 mcg/actuation mist for inhalation ([employer] Respimat) 1 puff inhalation BID Check with primary doctor 06/18/21 [History Last Taken 04/06/22] buprenorphine 10 mcg/hour weekly transdermal patch 10 mcg transdermal FULLER pain 08/16/21 [History Last Taken 04/04/22] ipratropium 0.5 mg-albuterol 3 mg (2.5 mg base)/3 mL nebulization soln 3 ml inhalation 4X/DAY 11/25/21 [History Last Taken 04/06/22] ferrous sulfate 325 mg (65 mg iron) tablet 325 mg PO BID IRON SUPPLEMENT 04/06/22 [History Last Taken 04/06/22] warfarin 5 mg tablet 5 mg PO .COMPLEX #180 tabs 04/20/22 [Rx Last Taken Unknown] furosemide 40 mg tablet 40 mg PO Q OTHER DAY 05/27/22 [History Last Taken Unknown] Allergy/AdvReac Type Severity Reaction Status Date / Time No Known Allergies Allergy Verified 05/27/22 13:00 Family History Son , age 44 from [place] CAD (coronary artery disease) Myocardial infarction Sudden cardiac Brother CAD (coronary artery disease) Pt states all nine of his siblings have heart problems Sister CAD (coronary artery disease) Patient states all nine of his siblings have heart problems Surgical History H/O cardiac catheterization History of coronary artery stent placement (~06/28/11) History of esophagogastroduodenoscopy (EGD) (~10/2021) History of left heart catheterization History of lumbar fusion 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) Status post cardiac surgery Social History Smoking Status: Current every day smoker tobacco type: cigarettes alcohol intake: never substance use type: does not use caffeine: No ROS Constitutional Constitutional: Denies fever(s) or weight loss Eyes Eyes: Reports systems reviewed and no addt'l complaints, except as documented ENT HEENT: Reports systems reviewed and no addt'l complaints, except as documented Cardiovascular Cardiovascular: Reports dyspnea at rest and dyspnea on exertion; Denies chest pain at rest, chest pain with activity, edema, palpitations or paroxysmal nocturnal dyspnea Respiratory/Chest Respiratory/Chest: Denies dyspnea on exertion, productive cough, shortness of breath at rest or shortness of breath with exertion Gastrointestinal Gastrointestinal: Denies change in bowel habits, nausea, vomiting or weight changes Genitourinary Genitourinary: Denies difficulty urinating Musculoskeletal Musculoskeletal: Denies joint stiffness or muscle weakness Integumentary Integumentary: Denies lesions Neurologic Neurologic: Denies dizziness or syncope Psychiatric Psychiatric: Denies anxiety Endocrine Endocrinology: Denies excessive sweating or fatigue Hematologic/Lymphatic Hematologic/Lymphatic: Denies anemia Allergic/Immunologic Allergic/Immunologic: Denies seasonal rhinorrhea Physical Exam Const alert, oriented x3 and no apparent distress General Appearance: cooperative HEENT hearing grossly normal bilaterally Head and Scalp: atraumatic Eyes EOMs intact bilaterally Neck General: normal visual inspection Chest inspection of chest normal and palpation of chest normal Resp normal respiratory effort Auscultation: clear to auscultation bilaterally Cardio S1 normal heart sound and S2 normal heart sound Jugular Venous Distention: JVD Rhythm: abnormal rhythm irregularly irregular GI normal to inspection, nondistended, normoactive bowel sounds Extremity normal capillary refill and no pedal edema Peripheral Pulses: Yes pulses 2+ throughout and femoral pulses present Skin no rashes or lesions noted Neuro oriented x3 and CN's II-XII intact bilaterally Psych Appearance: grossly normal and appropriate Risk Stratification Risk Stratification Applicable: No Objective Data Vital Signs: Vital Signs Temp Pulse Resp BP Pulse Ox O2 Del Method 98.1 F 49 L 16 113/42 L 96 Room Air 06/09/22 12:06 06/09/22 13:08 06/09/22 13:08 06/09/22 13:08 06/09/22 13:08 06/09/22 13:08 Oxygen Delivery Method Room Air Weight: 168 lb 13.985 oz Body Mass Index (BMI) 24.2 Lab / Micro Data Result Diagrams: 06/09/22 12:17 06/09/22 12:17 Labs: Laboratory Results - last 24 hr 06/09/22 12:17: WBC 3.7 L, RBC 2.68 L, Hgb 8.2 L, Hct 29.9 L, MCV 111.6 H, MCH 30.6, MCHC 27.4 L, RDW Std Deviation 65.9 H, RDW Coeff of [place]aly[place] 16.1 H, Plt Count 137 L, MPV 12.0, Immature Gran % (Auto) 0.500, Neut % (Auto) 76.2 H, Lymph % (Auto) 13.4 L, [place] % (Auto) 8.0, Eos % (Auto) 1.1, Baso % (Auto) 0.8, Absolute Neuts (auto) 2.8, Absolute Lymphs (auto) 0.50 L, Nucleated RBC % 0, Differential Comment SCANNED, Diff Path Review May foll, Hypochromasia 1+, Anisocytosis 2+, Microcytosis 1+, Macrocytosis 1+ 06/09/22 12:17: PT 28.0 H, INR 2.7 06/09/22 12:17: Sodium 144, Potassium 4.1, Chloride 110 H, Carbon Dioxide 30.0, Anion Gap 4 L, BUN 19 H, Creatinine 1.71 H, Estim Creat Clear Calc 33.20, Est GFR (MDRD) Af Amer 49 L, Est GFR (MDRD) Non-Af 41 L, BUN/Creatinine Ratio 11.1, Glucose 104, Calcium 8.5, Troponin I High Sens 22 Cardiology Labs/Tests 06/09/22 12:17: WBC 3.7 L, RBC 2.68 L, Hgb 8.2 L, Hct 29.9 L, MCV 111.6 H, MCH 30.6, MCHC 27.4 L, Plt Count 137 L, MPV 12.0, Immature Gran % (Auto) 0.500, Neut % (Auto) 76.2 H, Lymph % (Auto) 13.4 L, [place] % (Auto) 8.0, Eos % (Auto) 1.1, Baso % (Auto) 0.8, Absolute Neuts (auto) 2.8, Nucleated RBC % 0 06/09/22 12:17: PT 28.0 H, INR 2.7 06/09/22 12:17: Sodium 144, Potassium 4.1, Chloride 110 H, Carbon Dioxide 30.0, Anion Gap 4 L, BUN 19 H, Creatinine 1.71 H, Est GFR (MDRD) Af Amer 49 L, Est GFR (MDRD) Non-Af 41 L, BUN/Creatinine Ratio 11.1, Glucose 104, Calcium 8.5 Rhythm: EKG: ECHO: Stress Test: Cardiac Cath: PCI: CT Surgery: Holter monitor: EPS: PPM: CXR: Chest CT Scan: Radiography Diagnostic Testing: Radiology Impression Chest X-Ray 06/09/22 13:02 IMPRESSION: Trace right pleural effusion with mild bibasilar interstitial edema or inflammation. Electronically Signed: Maria A Gutierrez MD at 13:51 EST Reading Location ID and State: [facility] / [place] Tel , Service support ,
[2022-06-09 14:49] LABS: Reflex Troponin-HS? (from REC) Y
[2022-06-11 13:25] LABS: Pathologist Review Reviewed
== END 2022-06-09 15:09 | disposition home or self-care (01) ==
PROVIDERS: Emergency Provider Student in an Organized Health Care Education/Training Program; PCP Family Medicine; Visit Provider Student in an Organized Health Care Education/Training Program
DX: R00.2 Palpitations (principal); J44.9 Chronic obstructive pulmonary disease, unspecified; I50.22 Chronic systolic (congestive) heart failure; I13.0 Hypertensive heart and chronic kidney disease with heart failure and stage 1 through stage 4 chronic kidney disease, or unspecified chronic kidney disease; I48.91 Unspecified atrial fibrillation; D69.6 Thrombocytopenia, unspecified; N18.31 Chronic kidney disease, stage 3a; R53.1 Weakness; D72.819 Decreased white blood cell count, unspecified; I25.10 Atherosclerotic heart disease of native coronary artery without angina pectoris; E78.5 Hyperlipidemia, unspecified; Z95.0 Presence of cardiac pacemaker; Z95.3 Presence of xenogenic heart valve
CPT/HCPCS: 71045; 80048; 84484; 85025; 85610; 86850; 86900; 86901; 93005; 99284

== ENCOUNTER 2022-06-11 11:58 | Emergency (ER) | payer MEDICARE, SELFPAY ==
[2022-06-11] VITALS (10 sets, daily range): BP systolic 100–134; BP diastolic 50–78; PULSE 60–81; RESP 16–18; TEMP 36.3–36.9; O2SAT 94–100; BMI 25.1
--- NOTE | 2022-06-11 12:11 | EKG12_ITS ---
Test Reason : CP/SOB Blood Pressure : / mmHG Vent. Rate : 066 BPM Atrial Rate : 000 BPM P-R Int : 000 ms QRS Dur : 128 ms QT Int : 438 ms P-R-T Axes : 000 -59 107 degrees QTc Int : 459 ms Atrial fibrillation with premature ventricular or aberrantly conducted complexes Left axis deviation Right bundle branch block Anterior infarct , age undetermined T wave abnormality, consider lateral ischemia Abnormal ECG Confirmed by JOSÉ KO, WEI ([id number]), science editor MIMA VALDEZ ([id number]) on 06/14/2022 11:22:58 AM Referred By: MARIA R Confirmed By:WEI KUMAR MD
[2022-06-11 12:31] LABS: Absolute Lymphocyte Count 0.42 X10^3/uL (0.83-4.51); Absolute Neutrophil Count 2.4 X10^3/uL (2.0-7.7); Basophil# 0.02 X10^3/uL; Basophil% 0.6 % (0-1); Eosinophil# 0.02 X10^3/uL; Eosinophils% 0.6 % (0-5); Hematocrit 29.1 % (40-54); Hemoglobin 8.1 g/dL (13.0-16.5); Lymphocyte # 0.42 X10^3/ul (0.83-4.51); Lymphocyte % 13.4 % (19-41); Mean Corp Hgb Conc 27.8 g/dL (32-36); Mean Corpuscular Volume 111.5 fL (80-94); Mean Platelet Vol. 11.7 fl (6.2-12.0); Monocyte# 0.29 X10^3/uL; Monocyte% 9.2 % (0-10); NRBC Flagged by Analyzer 0 % (0-5); Neutrophil # 2.38 X10^3/uL (2.7-7.7); Neutrophil % 75.9 % (47-70); POSITIVE DIFFERENTIAL YES; POSITIVE MORPHOLOGY YES; Platelet Count 128 K/mm3 (150-450); RBC Distribution Width CV 16.3 % (11.6-14.6); RBC Distribution Width SD 68.1 fl (35.1-43.9); Red Blood Count 2.61 M/mm3 (4.6-6.2); White Blood Count 3.1 K/mm3 (4.4-11.0)
[2022-06-11 12:41] LABS: Anion Gap 2 (5-15); BUN 23 mg/dL (7-18); BUN/Creat Ratio 14.7 RATIO (10-20); Calcium,Total 9.2 mg/dL (8.5-10.1); Chloride 113 mmol/L (98-107); Creatinine, Serum 1.56 mg/dL (0.70-1.30); EST Glomerular Filtration Rate 45 mL/min (>60); Est Glom Filt Rate - Afr Amer 55 mL/min (>60); Glucose 128 mg/dL (74-106); Potassium 4.2 mmol/L (3.5-5.1); Sodium Level 145 mmol/L (136-145)
--- NOTE | 2022-06-11 12:57 | ED.RN ---
pt. arrives to [facility] via em[facility] pt states c/o sob, unable to cath breath this am. pt. daughter arrives stating pt. was having chest pain as well and upset he did not go right back to a room. explained to daughter that there is no open room currently and we will get an ekg, and blood work started here in [facility]
--- NOTE | 2022-06-11 13:14 | ED.VIS.CHEST ---
HPI History of Present Illness Chief Complaint: Shortness of Breath Detail of Chief Complaint: Midsternal chest pressure with shortness of breath Informant: patient Onset/Context/Timing Onset: Hours Activity at onset: rest Timing: Continuous Quality: Positive for Pressure (An elephant is sitting on my chest ) Location: Substernal Current Severity: Mild Maximum Severity: Severe Worsened By: Nothing Relieved By: Nothing and - (Used his inhaler because he had shortness of breath with no improvement. Did not take nitro) Associated Symptoms: Positive for Dyspnea and Lightheadedness; Negative for Nausea, Vomiting, Diaphoresis, Cough, Fever, Acid Reflux or Palpitations Narrative Narrative: Patient is an 82-year-old male with history of coronary disease status post four-vessel bypass surgery in the s and has had stents placed since. He also has history of hypercholesterolemia, hypertension, anemia, persistent atrial fibrillation on Coumadin. INR was assessed 1 week ago and was 2.5. He did take his meds this morning including 1 baby aspirin. He denies radiation. He denies black or maroon-colored stool. He denies fever, chills night sweats. Denies ocular, visual or auditory symptoms. He denies history of food intolerance or peptic ulcer disease. Prior Similar Symptoms: Yes, With Prior CT and With Prior Angina Recent Illness/Hospitalization: No CVD Risk Factors: Positive for Hypertension, Hypercholesterolemia and Smoking; Negative for Family History 1' </=55 PE Risk Factors: Negative for Recent Travel/Surgery, Recent Immobilization, Prior DVT or PE, Cancer or OCP + Smoking + >/=35 TAD Risk Factors: Positive for Hypertension; Negative for Marfan's Syndrome or Family History [facility] Medical History (Updated 06/11/22 @ 16:[address] Michele Ssoa MD) Acute respiratory failure with hypoxia Ambulates with cane Anemia Anemia due to chronic blood loss Anticoagulant long-term use Arthritis Atherosclerotic heart disease of nikolai coronary artery without angina pectoris Atrial fibrillation Back pain Back pain due to injury Cardiology follow-up encounter Chest pain CHF (congestive heart failure) Chronic airway obstruction Chronic anticoagulation Chronic cough Chronic pain syndrome Chronic systolic (congestive) heart failure COPD (chronic obstructive pulmonary disease) COPD (chronic obstructive pulmonary disease) Difficulty swallowing Essential hypertension Gastric reflux GERD (gastroesophageal reflux disease) Heart attack High cholesterol History of atrial fibrillation History of atrial fibrillation History of CHF (congestive heart failure) History of echocardiogram History of edema History of GI bleed History of heart attack History of pain when walking History of stress test Hx of fracture of ankle Hx of fracture of ankle Hypertension Injury of back Injury of head and neck Irregular heartbeat 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 On home oxygen therapy Osteoporosis Paroxysmal atrial fibrillation Persistent atrial fibrillation Pure hypercholesterolemia Restless legs Secondary pulmonary arterial hypertension Shortness of breath on exertion Sick sinus syndrome Smoker Spinal stenosis of lumbar region Stage 3a chronic kidney disease (CKD) Stroke Symptomatic bradycardia TIA (transient ischemic attack) Tobacco use disorder Uncontrolled pain Wears dentures Wears glasses Home Medications albuterol sulfate 90 mcg/actuation breath activated powder inhaler 2 puff inhalation Q4H PRN PRN Wheezing 09/25/15 [History Last Taken 04/06/22] cholecalciferol (vitamin D3) 25 mcg (1,000 unit) tablet 2,000 unit PO DAILY SUPPLEMENT 09/25/15 [History Last Taken 06/11/22 08:00] aspirin 81 mg tablet,delayed release 81 mg PO DAILY@0800 HEART HEALTH 06/24/16 [History Last Taken 06/11/22 08:00] folic acid 1 mg tablet 1 mg PO QHS SUPPLEMENT 06/24/16 [History Last Taken 06/10/22 22:00] isosorbide mononitrate 30 mg tablet,extended release 24 hr 30 mg PO DAILY BP 11/21/17 [History Last Taken 06/11/22 08:00] pantoprazole 40 mg tablet,delayed release 40 mg PO BID ACID REFLUX 01/02/18 [History Last Taken 06/11/22 08:00] zolpidem 10 mg tablet 10 mg PO QHS SLEEP 05/26/18 [History Last Taken 06/10/22 22:00] pregabalin 75 mg capsule 75 mg PO TID pain 07/28/18 [History Last Taken 06/11/22 08:00] nitroglycerin 0.4 mg sublingual tablet 0.4 mg sublingual Q5M PRN Chest Pain #30 tabs 05/25/21 [Rx Last Taken Unknown] tiotropium 2.5 mcg-olodaterol 2.5 mcg/actuation mist for inhalation (Stiolto Respimat) 1 puff inhalation BID Check with primary doctor 06/18/21 [History Last Taken 06/11/22 08:00] buprenorphine 10 mcg/hour weekly transdermal patch 10 mcg transdermal FULLER pain 08/16/21 [History Last Taken 06/09/22 08:00] ipratropium 0.5 mg-albuterol 3 mg (2.5 mg base)/3 mL nebulization soln 3 ml inhalation 4X/DAY 11/25/21 [History Last Taken 04/06/22] ferrous sulfate 325 mg (65 mg iron) tablet 325 mg PO BID IRON SUPPLEMENT 04/06/22 [History Last Taken 06/11/22 08:00] warfarin 5 mg tablet 5 mg PO .COMPLEX #180 tabs 04/20/22 [Rx Last Taken 06/10/22 22:00] furosemide 40 mg tablet 40 mg PO Q OTHER DAY 05/27/22 [History Last Taken 06/10/22 08:00] Allergy/AdvReac Type Severity Reaction Status Date / Time No Known Allergies Allergy Verified 06/11/22 11:59 Family History Son , age [address] [place] [address] CAD (coronary artery disease) Myocardial infarction Sudden cardiac Brother CAD (coronary artery disease) Pt states all nine of his siblings have heart problems Sister CAD (coronary artery disease) Patient states all nine of his siblings have heart problems Surgical History H/O cardiac catheterization History of coronary artery stent placement (~06/28/11) History of esophagogastroduodenoscopy (EGD) (~10/2021) History of left heart catheterization History of lumbar fusion 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 Michele Sosa MD) household members: family Smoking Status: Current every day smoker tobacco type: cigarettes alcohol intake: never substance use type: does not use caffeine: No ROS ROS ED Constitutional Constitutional ED: Denies chills, fever(s), subjective, sweats or weight loss Eyes Eyes: Reports none ENT ENT ED: Denies ear pain, rhinorrhea or sore throat Cardiovascular Cardiovascular: Reports as per HPI; Denies orthopnea or paroxysmal nocturnal dyspnea Respiratory/Chest Respiratory/Chest: Reports dyspnea; Denies cough, dyspnea on exertion, orthopnea, paroxysmal nocturnal dyspnea or sputum Gastrointestinal Gastrointestinal: Denies abdominal pain, constipation, diarrhea, melena, nausea or vomiting Genitourinary Genitourinary ED: Denies dysuria, hematuria or urinary frequency Musculoskeletal Musculoskeletal: Denies arthralgias, back pain, myalgias or neck pain Integumentary Denies abscess, Abrasions or rash Neurologic Neurologic: Denies headache(s), paresthesias or weakness Psychiatric Psychiatric: Denies anxiety or depression Endocrine Endocrinology: Denies cold intolerance, heat intolerance, polydipsia or polyuria Hematologic/Lymphatic Hematologic/Lymphatic: Denies easy bleeding, easy bruising or lymphadenopathy EXAM Physical Exam Const Vital Signs: 06/11/22 11:59 06/11/22 13:25 06/11/22 13:27 Temperature 98.4 F Temperature Source Temporal Pulse Rate 81 64 Respiratory Rate 16 Respiratory Effort Respiratory Depth Respiratory Pattern Blood Pressure 100/52 L 118/55 L Blood Pressure Mean 68 Pulse Ox 100 97 Oxygen Delivery Method Room Air Room Air 06/11/22 13:32 06/11/22 13:11 06/11/22 13:20 Temperature 98.3 F Temperature Source Oral Pulse Rate 60 64 Respiratory Rate 16 Respiratory Effort Respiratory Depth Respiratory Pattern Blood Pressure 112/62 118/55 L Blood Pressure Mean 76 Pulse Ox 94 97 Oxygen Delivery Method Room Air Room Air 06/11/22 13:45 06/11/22 14:07 06/11/22 15:00 Temperature 97.8 F Temperature Source Temporal Pulse Rate 65 Respiratory Rate 18 18 Respiratory Effort Short of Breath Respiratory Depth Normal Respiratory Pattern Normal Blood Pressure 124/50 H Blood Pressure Mean 74 Pulse Ox 96 98 Oxygen Delivery Method Room Air Room Air Room Air Positive well nourished, well developed and unkempt; Negative for cachectic General Appearance ED: unkempt, well developed and NAD; Negative for cachectic or pallor Nutritional Appearance: Negative for cachectic HEENT Reports TM's clear and dry mucous membranes HEENT Narrative: Pain.Uvula midline. No deviation of protrusion. No erythema or exudate the posterior pharynx. No discharge. Tympanic Membrane ED: Yes TM's clear Mouth ED: Yes dry mucous membranes Mouth: dry mucous membranes Eyes PERRL and EOMs intact bilaterally General Eye ED: Negative for pale conjunctiva or scleral icterus Neck no lymphadenopathy, supple and no JVD Neck Narrative: Trachea is midline. Voice is slightly hoarse. There is no stridor. Chest Wall inspection of chest normal and palpation of chest normal Resp normal respiratory effort and clear to auscultation bilaterally Resp Narrative: There is diminished breath sounds bilaterally. Breath sounds are symmetric. Cardio regular rate, regular rhythm, S1 normal heart sound, S2 normal heart sound and no murmurs Peripheral Pulses: pulses 2+ throughout GI normal to inspection, nondistended, normoactive bowel sounds, soft to palpation, non-tender, non-distended and no masses; Negative for hepatosplenomegaly Back/Spine no CVA tenderness Extremity normal to inspection General Extremety ED: Negative for edema, pulses abnormal or tenderness General Extremity: Negative for edema or pulses abnormal Neuro oriented x3, CN's II-XII intact bilaterally and no sensory deficits noted Sensorium / Orientation: awake and alert Motor Exam: strength 5/5 throughout Psych mental status grossly normal Appearance: unkempt Skin no rashes or lesions noted and no wounds General Skin Exam: Negative for jaundice or pallor Heart Score History: Moderately Suspicious ECG: Nonspecific Repolarization Age: >/= 65 years Risk Factors: >/= 3 Risk Factors or History of CAD Score: 6 MDM MDM MDM Narrative Medical decision making narrative: Presents with description of heaviness in his chest described as a elephant sitting on my chest . He has known coronary disease with multiple risk factors. Will obtain EKG to rule out acute ST elevation CT or subendocardial ischemia. Chest x-ray to assess for CHF, pneumonia pneumothorax since he is complain of shortness of breath and initially uses inhaler and not nitroglycerin. CBC to assess white count and rule out anemia. Basic metabolic panel to assess renal function as well as troponin and 2-hour troponin. Lab Data Attestation: I reviewed the patient's lab results. Lab results narrative: Patient is neutropenic which would suggest possible viral infection. H&H is 8.1 and 29.1. We will need to review prior results. MCV is 115. We will need to ask patient if he drinks on a regular basis otherwise 1 we will need to entertain folate or B12 deficiency. Basic metabolic panel is remarkable for a BUN and creatinine of 23 and 1.56. GFR is 45. Blood sugar slight elevated 141. Delta troponin is -3. Patient was seen by Dr. Billings. Plan is discharge to home. Pacemaker is an outpatient Labs: Laboratory Results - last 24 hr 06/11/22 06/11/22 06/11/22 12:20 12:20 12:20 WBC 3.1 L RBC 2.61 L Hgb 8.1 L Hct 29.1 L MCV 111.5 H MCH 31.0 MCHC 27.8 L RDW Std Deviation 68.1 H RDW Coeff of Kalyan 16.3 H Plt Count 128 L MPV 11.7 Immature Gran % (Auto) 0.300 Neut % (Auto) 75.9 H Lymph % (Auto) 13.4 L Casey % (Auto) 9.2 Eos % (Auto) 0.6 Baso % (Auto) 0.6 Absolute Neuts (auto) 2.4 Absolute Lymphs (auto) 0.42 L Nucleated RBC % 0 Differential Comment SCANNED Diff Path Review May foll Anisocytosis 2+ Microcytosis 1+ Macrocytosis 1+ PT INR Sodium 145 Potassium 4.2 Chloride 113 H Carbon Dioxide 30.0 Anion Gap 2 L BUN 23 H Creatinine 1.56 H Estim Creat Clear Calc 36.40 Est GFR (MDRD) Af Amer 55 L Est GFR (MDRD) Non-Af 45 L BUN/Creatinine Ratio 14.7 Glucose 128 H Calcium 9.2 Troponin I High Sens 33 B-Natriuretic Peptide 06/11/22 06/11/22 06/11/22 12:20 12:20 15:35 WBC RBC Hgb Hct MCV MCH MCHC RDW Std Deviation RDW Coeff of Kalyan Plt Count MPV Immature Gran % (Auto) Neut % (Auto) Lymph % (Auto) Casey % (Auto) Eos % (Auto) Baso % (Auto) Absolute Neuts (auto) Absolute Lymphs (auto) Nucleated RBC % Differential Comment Diff Path Review Anisocytosis Microcytosis Macrocytosis PT 30.7 H INR 3.0 Sodium Potassium Chloride Carbon Dioxide Anion Gap BUN Creatinine Estim Creat Clear Calc Est GFR (MDRD) Af Amer Est GFR (MDRD) Non-Af BUN/Creatinine Ratio Glucose Calcium Troponin I High Sens 30 B-Natriuretic Peptide 314.0 H Radiography Diagnostic Testing: Clinical Impression(s) from Imaging Studies Chest X-Ray 06/11/22 13:54 IMPRESSION: No significant interval change. Electronically Signed: Maria A Gutierrez MD at 14:08 EST , EKG Initial EKG: Attestation: I personally reviewed and interpreted this EKG as follows: Interpretation: Atrial Fibrillation (Ventricular rate is 66. QRS durations 128 ms. QT duration 4 to 38 ms. [place] to the left. There is evidence of a right bundle branch block. There is nonseptic ST-T wave changes consistent with the bundle branch block. Will obtain old for comparison. Since patient is still complaining of a heavy) Discharge Plan Triage Chief Complaint: Shortness of Breath ED Provider: Michele Sosa Dx/Rx/DC Orders Clinical Impression: Chest pain, midsternal, Atrial fibrillation, Atherosclerotic heart disease of nikolai coronary artery without angina pectoris, Essential hypertension, Pure hypercholesterolemia, Anticoagulant long-term use Instructions: ED Chest Pain, Noncardiac, ED Chest Pain, Uncertain Cause Prescriptions: No Action isosorbide mononitrate 30 mg tablet extended release 24 hr 30 mg PO DAILY nitroglycerin 0.4 mg tablet, sublingual 0.4 mg SUBLINGUAL Q5M PRN (Reason: Chest Pain) Qty: 30 0RF Label Comments: chest pain ipratropium-albuterol 0.5 mg-3 mg(2.5 mg base)/3 mL solution for nebulization 3 ml INHALATION 4X/DAY Label Comments: breathing furosemide 40 mg tablet 40 mg PO Q OTHER DAY pantoprazole 40 mg tablet,delayed release (DR/EC) 40 mg PO BID Label Comments: acid reflux cholecalciferol (vitamin D3) 1,000 UNIT tablet 2,000 unit PO DAILY Label Comments: supplement albuterol sulfate 90 MCG aerosol powdr breath activated 2 puff INHALATION Q4H PRN PRN (Reason: Wheezing) Label Comments: breathing aspirin 81 MG tablet 81 mg PO DAILY@0800 Hold Instructions: Resume on 04/07/22. Label Comments: heart health WAS TOLD TO STOP FOR SURGERY folic acid 1 MG tablet 1 mg PO QHS zolpidem 10 MG tablet 10 mg PO QHS pregabalin 75 MG capsule 75 mg PO TID Stiolto Respimat 2.5-2.5 mcg/actuation Mist 1 puff INHALATION BID buprenorphine 10 mcg/hour patch weekly 10 mcg transdermal FULLER Label Comments: APPLY 1 (ONE) patch transdermally and wear for 1 (ONE) week, sundays ferrous sulfate 325 MG tablet 325 mg PO BID Label Comments: iron supplement warfarin 5 mg tablet 5 mg PO .COMPLEX Qty: 180 3RF Protocol: Dose Management Condition: Tuesday Dose/Route: 2.5 mg Instruction: 0.5 x 5 mg tablets Condition: Tuesday Dose/Route: 5 mg Instruction: 1 x 5 mg tablet Condition: Tuesday Dose/Route: 5 mg Instruction: 1 x 5 mg tablet Condition: Tuesday Dose/Route: 5 mg Instruction: 1 x 5 mg tablet Condition: Dose/Route: 5 mg Instruction: 1 x 5 mg tablet Condition: Tuesday Dose/Route: 5 mg Instruction: 1 x 5 mg tablet Condition: Tuesday Dose/Route: 2.5 mg Instruction: 0.5 x 5 mg tablets Protocol Text: Adjustment Start Date: Tuesday05/31/22 INR Value: 2.6 INR Date: 05/31/22 Recheck Date: 06/21/22 Rx Instructions: 5 mg orally daily except 7.5 mg Tue and Tuesday, or as directed; dose changes often so give extra pills; Primary Care Provider: Guillermo Pritchard Referrals: Dennis Oh MD [Med Staff - Active Staff] - Keep Jadyn appointment Guillermo Pritchard MD [Primary Care Provider] - Activity Restrictions/Additional Instructions: Hold your Coumadin. Disposition Disposition: Home, Self Care
[2022-06-11 13:19] LABS: Differential Indicated SCAN CRITERIA MET
[2022-06-11 13:20] LABS: Anisocytosis 2+; Differential Comment SCANNED; Macrocytosis 1+; Microcytosis 1+
[2022-06-11] MEDS: Aspirin 81 MG TAB.CHEW 253 MG PO (13:23)
[2022-06-11] MEDS: Nitroglycerin SL (ED/IMG/CATH) 0.4 MG TABLET SL ×2 (13:25→13:32)
--- NOTE | 2022-06-11 13:54 | RAD_ITS ---
HISTORY: SOB. TECHNIQUE: XR Chest 1 View. COMPARISON: 06/09/2022. FINDINGS: LINES/TUBES: None. CARDIOMEDIASTINAL BORDERS: Stable with midline sternotomy. LUNGS: Chronic right upper lobe scarring laterally. Mild interstitial bibasilar opacities again seen. PLEURA: Trace right pleural effusion or pleural scarring again noted. RAD/Chest 1 View (Portable) IMPRESSION: No significant interval change. Electronically Signed: Maria A Gutierrez MD at 14:08 EST ,
[2022-06-11 14:00] LABS: Prothrombin Time (Protime)PT. 30.7 SECONDS (11.7-14.9)
[2022-06-11 14:04] LABS: Troponin-I HS (w/2H Reflex) 33 pg/mL (3.0-78.0)
[2022-06-11] MEDS: Morphine 2 MG/ML Syringe IV (14:05)
[2022-06-11 15:45] LABS: Reflex Troponin-HS? (from REC) Y
[2022-06-11 16:04] LABS: Troponin-I HS 30 pg/mL (3.0-78.0)
[2022-06-14 12:56] LABS: Pathologist Review Reviewed
== END 2022-06-11 16:39 | disposition home or self-care (01) ==
PROVIDERS: Emergency Provider Emergency Medicine; PCP Family Medicine; Visit Provider Emergency Medicine
DX: R07.89 Other chest pain (principal); J44.9 Chronic obstructive pulmonary disease, unspecified; I50.22 Chronic systolic (congestive) heart failure; I13.0 Hypertensive heart and chronic kidney disease with heart failure and stage 1 through stage 4 chronic kidney disease, or unspecified chronic kidney disease; I48.91 Unspecified atrial fibrillation; N18.31 Chronic kidney disease, stage 3a; R06.02 Shortness of breath; I25.10 Atherosclerotic heart disease of native coronary artery without angina pectoris; E78.00 Pure hypercholesterolemia, unspecified; Z79.01 Long term (current) use of anticoagulants; F17.210 Nicotine dependence, cigarettes, uncomplicated
CPT/HCPCS: 71045; 80048; 83880; 84484; 85025; 85610; 87811; 93005; 94760; 96374; 99285; A4216

== ENCOUNTER 2022-06-14 13:42 | Observation (INO) | payer MEDICARE, SELFPAY ==
[2022-06-11 08:36] VITALS: BMI 24.3
[2022-06-14] VITALS (11 sets, daily range): BP systolic 102–129; BP diastolic 48–109; PULSE 60–71; RESP 12–16; TEMP 36.4–36.5; O2SAT 92–98
[2022-06-14 11:31] LABS: INR Fingerstick 1.9; Prothrombin Time Fingerstick 22.6 SEC (11.7-14.9)
--- NOTE | 2022-06-14 13:56 | CL.IE_ITS ---
Patient: REBECCA ARRIOLA I Study Date: 06/14/2022 Performing: Dennis Oh MD : [id number] Age: 82 Gender: male PROCEDURES PERFORMED [id number])INITIAL PACER INSERT+DUAL LEADS INDICATIONS Sinoatrial node dysfunction/Sick sinus syndrome PROCEDURE DETAILS The patient was brought to the Catheterization Lab in the postabsorptive nonsedated state. Informed consent was obtained prior to the procedure. Local anesthetic was given subcutaneously to the left subclavian region with Lidocaine 2%. Access was achieved and a guidewire was advanced into the left subclavian vein. Incision was made to the left subclavicular area. PPM ventricular lead was inserted / positioned to right ventricular septal wall. PPM ventricular lead testing performed. PPM ventricular lead testing performed. PPM atrial lead was inserted / positioned to the right atrial appendage. PPM atrial lead testing performed. PPM generator was attached to the lead(s) and inserted into the pocket. Device pocket was irrigated with antibiotic. PPM generator was attached to the lead(s) and inserted into the pocket. The Atrial lead sutured in place with. The Ventricular PM lead sutured in place with. The PPM generator was sutured in place with. Subcutaneous closure was completed with 3-0 Vicryl. Skin closure was completed with 4-0 Vicryl. Steri-strips applied to left subclavicular incision. Instrument, sponge, and needle counts were noted to be normal. The patient tolerated the procedure well. Estimated Blood Loss: 50 ml's IMPLANTED / EX-PLANTED DEVICES IMPLANTED DEVICE(S): PPM Ventricular lead - General House Worker: [employer], Model # 2088TC , Serial # [id number] PPM Atrial lead - General House Worker: [employer], Model # 2088TC , Serial # [id number] PPM Generator - General House Worker: [employer], Model # [id number] , Serial # [id number] DEVICE PARAMETERS DEVICE PARAMETERS: Mode - DDDR lower rate - 60 upper rate - 120 rate response on Mode- DDDR CONCLUSIONS / RECOMMENDATIONS Device Conclusions: Successful implantation of a dual chamber pacemaker Device Recommendations: Follow up with Primary Care Physician PROCEDURE MEDICATIONS Versed 1 mg IV Versed 1 mg IV Fentanyl 25 mcg IV Fentanyl 25 mcg IV Oxygen: 2 L/min via nasal cannula Ancef 2 Gm IV @ 06/14/2022 11:49:59 Signed By Dennis Oh MD On 06/14/2022 13:55:58 Dennis Oh MD
[2022-06-14] MEDS: Ferrous Sulfate 325 MG Tablet PO (17:05)
[2022-06-14] MEDS: Furosemide 40 MG Tablet PO (17:05)
--- NOTE | 2022-06-14 20:45 | NURSING ---
This rn assumed pts care at this time.
[2022-06-14] MEDS: Pantoprazole Sodium 40 MG Tablet PO (21:34)
[2022-06-14] MEDS: Zolpidem Tartrate 5 MG Tablet 10 MG PO (22:22)
[2022-06-15 03:15] VITALS: BP 100/48; PULSE 80; RESP 16; TEMP 36.8; O2SAT 95
[2022-06-15 03:21] VITALS: PULSE 80
[2022-06-15] MEDS: Pregabalin 75 MG Capsule PO (05:14)
--- NOTE | 2022-06-15 05:57 | RAD_ITS ---
STUDY: X-RAY CHEST REASON FOR EXAM: Male, 82 years old. S/p pacemaker TECHNIQUE: Single AP portable view of the chest. COMPARISON: June 11, 2022 chest x-ray FINDINGS: There is a left-sided pacemaker with leads overlying the heart. There is no visualized pneumothorax. Lungs appear grossly clear. There is trace blunting of the left costophrenic angle. Sternal cerclage wires are present from a prior sternotomy. Normal mediastinum and yonas. Normal visualized pulmonary arteries. There is atherosclerotic calcification of the aortic arch with tortuosity. There are diffuse degenerative changes of the visualized thoracic spine. Normal visualized ribs, clavicles, and shoulders. There is no demonstrated abnormality of the visualized soft tissue structures of the upper abdomen. RAD/Chest 3 View IMPRESSION: Status post pacemaker placement. No visualized pneumothorax. Trace left effusion suspected. Electronically Signed: Tanisha Valdes MD at 6:48 EST Reading Location ID and State: [facility] / [place] Tel , Service support ,
[2022-06-15 07:26] VITALS: PULSE 65
[2022-06-15 07:53] VITALS: BP 96/51; PULSE 80; RESP 18; TEMP 36.6; O2SAT 96
[2022-06-15] MEDS: Aspirin E.C. 81 MG Tablet PO (08:03)
[2022-06-15] MEDS: Ferrous Sulfate 325 MG Tablet PO (08:03)
[2022-06-15] MEDS: Pantoprazole Sodium 40 MG Tablet PO (08:03)
[2022-06-15 08:13] VITALS: BP 96/51; PULSE 80; RESP 18; TEMP 36.6; O2SAT 96
--- NOTE | 2022-06-15 09:28 | PCM.PN.CARD ---
Subjective Subjective Patient seen and evaluated. Appears to be doing quite well at this time. Underwent pacemaker implantation yesterday. Objective Data Vital Signs: Vital Signs Temp Pulse Resp BP Pulse Ox O2 Del Method 97.9 F 80 18 96/51 L 96 Room Air 06/15/22 08:13 06/15/22 08:13 06/15/22 08:13 06/15/22 08:13 06/15/22 08:13 06/15/22 08:13 Oxygen Delivery Method Room Air Weight: 173 lb 15.115 oz Body Mass Index (BMI) 24.3 Intake & Output: Intake and Output for Last 24 Hours 06/13/22 06/14/22 06/15/22 23:59 23:59 23:59 Intake Total 640 / 640 120 / 120 Output Total 700 / 700 925 / 925 Balance -60 / -60 -805 / -805 Lab / Micro Data Labs: Laboratory Results - last 24 hr 06/14/22 10:25: POC PT 22.6 H, INR 1.9 Cardiology Labs/Tests 06/14/22 10:25: INR 1.9 Rhythm: EKG: ECHO: Stress Test: Cardiac Cath: PCI: CT Surgery: Holter monitor: EPS: PPM: CXR: Chest CT Scan: Radiography Diagnostic Testing: Radiology Impression Chest X-Ray 06/15/22 05:57 IMPRESSION: Status post pacemaker placement. No visualized pneumothorax. Trace left effusion suspected. Electronically Signed: Tanisha Valdes MD at 6:48 EST Reading Location ID and State: [address] [place] [address] Tel , Service support , Physical Exam Const alert, oriented x3 and no apparent distress General Appearance: cooperative HEENT hearing grossly normal bilaterally Head and Scalp: atraumatic Eyes EOMs intact bilaterally Neck General: normal visual inspection Chest inspection of chest normal and palpation of chest normal Resp normal respiratory effort Auscultation: clear to auscultation bilaterally Cardio S1 normal heart sound and S2 normal heart sound Jugular Venous Distention: JVD Rhythm: abnormal rhythm irregularly irregular GI normal to inspection, nondistended, normoactive bowel sounds Extremity normal capillary refill and no pedal edema Peripheral Pulses: Yes pulses 2+ throughout and femoral pulses present Skin no rashes or lesions noted Neuro oriented x3 and CN's II-XII intact bilaterally Psych Appearance: grossly normal and appropriate Assessment & Plan Assessment/Plan (1) Atrial fibrillation: PLAN: Patient presents with atrial fibrillation with a slow ventricular response rate. He underwent placement of a dual-chamber pacemaker. The above appears to be functioning well. Chest x-ray was unremarkable and pacemaker check was stable. He will be discharged for outpatient follow-up. 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 transplanted heart: [place] heart Qualified Code(s): I25.10 - Atherosclerotic heart disease of [place] coronary artery without angina pectoris PLAN: He does have a history of coronary disease and appears to be stable at this particular time without any angina the plan to be to continue current medical therapy. (3) Essential hypertension: PLAN: His blood pressure appears to be under good control at this particular time I would not recommend that we make any major changes other than discontinuing the beta-zach temporarily. This will be restarted after the procedure. (4) CHF (congestive heart failure): PLAN: He does have evidence of diastolic heart failure and the plan to be to continue him on the medical therapy as stipulated by his primary care certified juvenile probation officer. 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 He appears to be stable at this time with respect to the above. Thank you for allowing me to participate in the care of your patient. Please don't hesitate to call if any issues arise.
--- NOTE | 2022-06-15 09:31 | DCINST_ITS ---
Discharge Instructions Diet Discharge Diet: No restrictions Activity Discharge Activity: May Not Drive May shower in (days): 3 Additional Activity Instructions:: May shower or bathe on [day 3]. Do not scrub the incision or soak in the tub. Just wash with soap and let the water run over the incision. Gently pat dry with towel. Medications: Take your pain medication as directed. Refer to your discharge instruction sheet for a list of medications you are to take. Dressing / Incision Call your doctor if your incision/area has: Continuous Slow Oozing, Sudden Increased Bleeding, Increased Pain/ Swelling, Increased Redness, Foul Smelling Discharge and Swelling at the incision site Call your doctor if you observe: Fever of 101 or Higher, Shortness of breath, Dizziness, Fainting spells, Swelling in the ankles, Chest pain, Prolonged hiccupping and Increased palpitations (irregular heartbeat) Suture Line Care: Avoid Pulling/Pushing and Avoid Pinching/Bending Change Dressing in: 3 days Remove Dressing in: 3 days Additional Dressing/Incision Instructions:: When dressing is removed, wash and dry incision. Keep covered with a light bandage if it is rubbing against your clothing. Do not cover the incision with an airtight bandage. Change the bandage daily. Do not remove steri strips. The strips will fall off on their own. Follow Up Care Please Follow Up With: Dennis Oh MD When: Pacer follow up on June 21 at 11 AM..... Start Coumadin again tomorrow Tuesday Test Results: Test results from this visit will be discussed in further detail at your follow- up appointment, if applicable. Discharge Plan Admission Admit Date/Time: 06/14/22 13:42 Attending Provider: Dennis Oh Primary Care Provider: Guillermo Pritchard Discharge Orders/Prescriptions Prescriptions: No Action isosorbide mononitrate 30 mg tablet extended release 24 hr 30 mg PO DAILY nitroglycerin 0.4 mg tablet, sublingual 0.4 mg SUBLINGUAL Q5M PRN (Reason: Chest Pain) Qty: 30 0RF Label Comments: chest pain ipratropium-albuterol 0.5 mg-3 mg(2.5 mg base)/3 mL solution for nebulization 3 ml INHALATION 4X/DAY Label Comments: breathing furosemide 40 mg tablet 40 mg PO Q OTHER DAY pantoprazole 40 mg tablet,delayed release (DR/EC) 40 mg PO BID Label Comments: acid reflux cholecalciferol (vitamin D3) 1,000 UNIT tablet 2,000 unit PO DAILY Label Comments: supplement albuterol sulfate 90 MCG aerosol powdr breath activated 2 puff INHALATION Q4H PRN PRN (Reason: Wheezing) Label Comments: breathing aspirin 81 MG tablet 81 mg PO DAILY@0800 Hold Instructions: Resume on 04/07/22. Label Comments: heart health WAS TOLD TO STOP FOR SURGERY folic acid 1 MG tablet 1 mg PO QHS zolpidem 10 MG tablet 10 mg PO QHS pregabalin 75 MG capsule 75 mg PO TID Stiolto Respimat 2.5-2.5 mcg/actuation Mist 1 puff INHALATION BID buprenorphine 10 mcg/hour patch weekly 10 mcg transdermal FULLER Label Comments: APPLY 1 (ONE) patch transdermally and wear for 1 (ONE) week, sundays ferrous sulfate 325 MG tablet 325 mg PO BID Label Comments: iron supplement warfarin 5 mg tablet 5 mg PO .COMPLEX Qty: 180 3RF Protocol: Dose Management Condition: Tuesday Dose/Route: 2.5 mg Instruction: 0.5 x 5 mg tablets Condition: Tuesday Dose/Route: 5 mg Instruction: 1 x 5 mg tablet Condition: Tuesday Dose/Route: 5 mg Instruction: 1 x 5 mg tablet Condition: Tuesday Dose/Route: 5 mg Instruction: 1 x 5 mg tablet Condition: Dose/Route: 5 mg Instruction: 1 x 5 mg tablet Condition: Tuesday Dose/Route: 5 mg Instruction: 1 x 5 mg tablet Condition: Tuesday Dose/Route: 2.5 mg Instruction: 0.5 x 5 mg tablets Protocol Text: Adjustment Start Date: Tuesday05/31/22 INR Value: 2.6 INR Date: 05/31/22 Recheck Date: 06/21/22 Rx Instructions: 5 mg orally daily except 7.5 mg Tue and Tuesday, or as directed; dose changes often so give extra pills; Referrals / Follow Up: Guillermo Pritchard MD [Primary Care Provider] - Disposition Disposition (needs filled in before D/C Order can be placed): Home, Self Care
--- NOTE | 2022-06-15 09:37 | PHA.DC.MR ---
Pharmacy Service has performed discharge medication reconciliation for this patient. The patient's discharge medication list was reviewed for discrepancies and discrepancies were resolved. Home Medications albuterol sulfate 90 mcg/actuation breath activated powder inhaler 2 puff inhalation Q4H PRN PRN Wheezing 09/25/15 cholecalciferol (vitamin D3) 25 mcg (1,000 unit) tablet 2,000 unit PO DAILY SUPPLEMENT 09/25/15 aspirin 81 mg tablet,delayed release 81 mg PO DAILY@0800 HEART HEALTH 06/24/16 folic acid 1 mg tablet 1 mg PO QHS SUPPLEMENT 06/24/16 isosorbide mononitrate 30 mg tablet,extended release 24 hr 30 mg PO DAILY BP 11/21/17 pantoprazole 40 mg tablet,delayed release 40 mg PO BID ACID REFLUX 01/02/18 zolpidem 10 mg tablet 10 mg PO QHS SLEEP 05/26/18 pregabalin 75 mg capsule 75 mg PO TID pain 07/28/18 nitroglycerin 0.4 mg sublingual tablet 0.4 mg sublingual Q5M PRN Chest Pain #30 tabs 05/25/21 tiotropium 2.5 mcg-olodaterol 2.5 mcg/actuation mist for inhalation (Stiolto Respimat) 1 puff inhalation BID Check with primary doctor 06/18/21 buprenorphine 10 mcg/hour weekly transdermal patch 10 mcg transdermal FULLER pain 08/16/21 ipratropium 0.5 mg-albuterol 3 mg (2.5 mg base)/3 mL nebulization soln 3 ml inhalation 4X/DAY 11/25/21 ferrous sulfate 325 mg (65 mg iron) tablet 325 mg PO BID IRON SUPPLEMENT 04/06/22 warfarin 5 mg tablet 5 mg PO .COMPLEX #180 tabs 04/20/22 furosemide 40 mg tablet 40 mg PO Q OTHER DAY 05/27/22
--- NOTE | 2022-06-15 10:25 | NURSING ---
This RN taking over care of pt at this time.
[2022-06-15 11:29] VITALS: BP 105/50
[2022-06-15] MEDS: Isosorbide Mononitrate 30 MG Tablet PO (11:30)
--- NOTE | 2022-06-15 13:45 | HP_ITS ---
HPI HPI History of Present Illness Details: 82-year-old white male who presents today for outpatient cardiovascular follow- up for history of CAD, CABG (1992-[facility]-RED to the LAD), subsequent PTCA/BMS (LAD/LCx-2010 and LCx-2012), status post AVR (1992-[facility]-23 mm [place] mechanical aortic valve prosthesis), atrial fibrillation, hyperlipidemia, and hypertension. He denies chest, arm, jaw, or neck discomfort. He acknowledges palpitations that he describes as fast and irregular. This tends to occur in the evening. This lasts 5-10 minutes and resolves on its own. He denies bilateral lower extremity edema. He denies claudication. He acknowledges shortness of breath with activity. This is not new or worsening. This is most noted when hurrying. This improves with rest. He denies shortness of breath at rest, orthopnea, or PND. He denies chronic cough. He denies significant, sudden weight gain. He denies lightheadedness, dizziness, near-syncope, or syncope. He denies blood in urine, blood in stool, or epistaxis. He denies fever or chills. He denies myalgia. He denies fatigue. His exercise level has remained stable. 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 Accompanied by: Daughter Is patient in pain?: No Allergies No Known Allergies Allergy (Verified 05/27/22 13:00) Medications albuterol sulfate 90 mcg/actuation breath activated powder inhaler 2 puff inhalation Q4H PRN PRN Wheezing 09/25/15 [History Confirmed 05/27/22] cholecalciferol (vitamin D3) 25 mcg (1,000 unit) tablet 2,000 unit PO DAILY SUPPLEMENT 09/25/15 [History Confirmed 05/27/22] aspirin 81 mg tablet,delayed release 81 mg PO DAILY@0800 [facility] 06/24/16 [History Confirmed 05/27/22] folic acid 1 mg tablet 1 mg PO QHS SUPPLEMENT 06/24/16 [History Confirmed 05/27/22] isosorbide mononitrate 30 mg tablet,extended release 24 hr 30 mg PO DAILY BP 11/21/17 [History Confirmed 05/27/22] pantoprazole 40 mg tablet,delayed release 40 mg PO BID ACID REFLUX 01/02/18 [History Confirmed 05/27/22] zolpidem 10 mg tablet 10 mg PO QHS SLEEP 05/26/18 [History Confirmed 05/27/22] pregabalin 75 mg capsule 75 mg PO TID pain 07/28/18 [History Confirmed 05/27/22] metoprolol tartrate 25 mg tablet 12.5 mg PO BID Dose increased for Rapid Heart Rate 11/26/19 [History Confirmed 05/27/22] nitroglycerin 0.4 mg sublingual tablet 0.4 mg sublingual Q5M PRN Chest Pain #30 tabs 05/25/21 [Rx Confirmed 05/27/22] tiotropium 2.5 mcg-olodaterol 2.5 mcg/actuation mist for inhalation ([employer]) 1 puff inhalation BID Check with primary doctor 06/18/21 [History Confirmed 05/27/22] buprenorphine 10 mcg/hour weekly transdermal patch 10 mcg transdermal FULLER pain 08/16/21 [History Confirmed 05/27/22] ipratropium 0.5 mg-albuterol 3 mg (2.5 mg base)/3 mL nebulization soln 3 ml inhalation 4X/DAY 11/25/21 [History Confirmed 05/27/22] ferrous sulfate 325 mg (65 mg iron) tablet 325 mg PO BID IRON SUPPLEMENT 04/06/22 [History Confirmed 05/27/22] warfarin 5 mg tablet 5 mg PO .COMPLEX #180 tabs 04/20/22 [Rx Confirmed 05/27/22] furosemide 40 mg tablet 40 mg PO Q OTHER DAY 05/27/22 [History Confirmed 05/27/22] Ejection fraction %: 45 to 49 [facility] Medical History (Updated 05/27/22 @ 13:51 by Laron Clay SHUT OFF WORKER, SHUT OFF WORKER-C) Acute respiratory failure with hypoxia Ambulates with cane Anemia Anemia due to chronic blood loss Anticoagulant long-term use Arthritis Atherosclerotic heart disease of [place] coronary artery without angina pectoris Atrial fibrillation Back pain Back pain due to injury Cardiology follow-up encounter Chest pain CHF (congestive heart failure) Chronic airway obstruction Chronic anticoagulation Chronic cough Chronic pain syndrome Chronic systolic (congestive) heart failure COPD (chronic obstructive pulmonary disease) COPD (chronic obstructive pulmonary disease) Difficulty swallowing Essential hypertension Gastric reflux GERD (gastroesophageal reflux disease) Heart attack High cholesterol History of atrial fibrillation History of atrial fibrillation History of CHF (congestive heart failure) History of echocardiogram History of edema History of GI bleed History of heart attack History of pain when walking History of stress test Hx of fracture of ankle Hx of fracture of ankle Hypertension Injury of back Injury of head and neck Irregular heartbeat 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 On home oxygen therapy Osteoporosis Paroxysmal atrial fibrillation Pure hypercholesterolemia Restless legs Secondary pulmonary arterial hypertension Shortness of breath on exertion Smoker Spinal stenosis of lumbar region Stage 3a chronic kidney disease (CKD) Stroke TIA (transient ischemic attack) Tobacco use disorder Uncontrolled pain Wears dentures Wears glasses Surgical History H/O cardiac catheterization History of coronary artery stent placement (~06/28/11) History of esophagogastroduodenoscopy (EGD) (~10/2021) History of left heart catheterization History of lumbar fusion 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) Status post cardiac surgery Family History Son , age 44 from [place] CAD (coronary artery disease) Myocardial infarction Sudden cardiac Brother CAD (coronary artery disease) Pt states all nine of his siblings have heart problems Sister CAD (coronary artery disease) Patient states all nine of his siblings have heart problems Social History Smoking Status: Current every day smoker tobacco type: cigarettes alcohol intake: never substance use type: does not use caffeine: No ROS Const Const: Negative for fatigue, weakness, headache(s), frequent falls, difficulty sleeping or excessive sweating Eyes Eyes: Negative for loss of peripheral vision, transient loss of vision, blurry vision, double vision or tunnel vision ENT ENT: Positive for balance problems (Related to weakness in legs); Negative for headache(s), dizziness or Nosebleed/epistaxis Cardio Chest Pain: No Palpitations: Yes feels like its: fast and irregular Edema: None Muscle aches with walking: None Resp Respiratory: Positive for SOB with activity; Negative for SOB at rest, SOB orthopnea\SOB lying down, Cough or paroxysmal nocturnal dyspnea GI GI: Negative nausea, vomiting, heartburn or black,tarry stools : Negative for hematuria Musc Musc: Positive for muscle weakness (BLE) and balance problems (Related to weakness in legs); Negative for muscle aches/ myalgia or joint pain Skin Skin: Negative non-healing lesions, rash or unusual bruising Neuro Neuro: Negative for dizziness, lightheadedness, near syncope, syncope, frequent falls, headache(s), weakness, blurry vision, double vision or lack of coordination Jayant Hematologic/Lymphatic: Negative for easy bleeding or easy bruising Endo Endo: Negative for fatigue, excessive sweating or increased thirst/drinking Psych Psych: Negative for anxiety or depression Allergy Allergy/Immunology: Negative for hives and Negative for rash Cardiology Exam Const Appearance: cooperative, healthy appearing, comfortable and no acute distress Nutritional Appearance: average body habitus and well nourished Orientation: alert, awake and oriented x3 Head Head: normal to inspection Ears: hearing grossly normal bilaterally Nose: external nose normal Face and Sinus: face symmetric Mouth: oral mucosae normal Eyes General: appearance normal, both eyes and all related structures Eyelids: eyelids normal EOM: EOM intact bilaterally Neck Neck: normal visual inspection and no JVD Carotids: normal carotid upstroke Chest Chest inspection: normal inspection of the chest, symmetric chest movement and normal respiratory effort; Negative cough Auscultation: Bilateral: Expiratory Wheezes Cardio Rate: bradycardic Rhythm: irregular rhythm Heart sounds: S1 normal, S2 normal and crisp prosthetic S2; Negative rub, gallop or murmur Murmur: Grade 2/6, soft and CRYSTAL loudest LLSB GI GI: normal to inspection Neuro General: patient alert, patient awake, patient oriented x3 and CN's II-XI intact bilaterally Skin Skin: no rashes or lesions noted Extremities Pulses: Normal: Right Posterior Tibial Pulse, Left Posterior Tibial Pulse, Right Radial Pulse and Left Radial Pulse Lower Extremity Edema: None: Bilateral Psych Psychological: normal affect Supplemental Info Supplemental Information Echocardiogram from 04/27/2019: Interpretation Summary Moderately dilated left ventricle. The estimated ejection fraction is 45-50 %. Stage 2 diastolic dysfunction. Moderately dilated right ventricle. The left atrium is mildly enlarged. Mild (1+) tricuspid valve insufficiency. Right ventricular systolic pressure estimated to be 36 mmHg. Stable appearing and normally functioning bioprosthetic aortic valve apparatus. Compared to echo report dated 01/31/2017, LV function has remained the same, and RVSP has improved from 52 to 36 mm Hg. The study was technically difficult. Contrast injection was performed. Echocardiogram: 10-13-2020 Interpretation Summary Normal LV size. Left ventricular systolic function is normal. The estimated ejection fraction is 45 %. Mean aortic valve gradient 20 mmHg. Bioprosthetic aortic valve. Compared to prior study, there is no significant change. Stress Echocardiogram from 04/04/2018: Interpretation summary The patient was titrated from 10 mcg to a maximum of 30 mcg to been during the stress. Normal, adequate, dobutamine echocardiogram. Negative for ischemia by EKG and echocardiographic criteria. Frequent PACs and rare PVCs noted. Patient has baseline mid anterior septal and apical hypokinesis from previous myocardial infarction. All remaining enciso contract normally. Final LVEF of 55%. No anginal symptoms noted. Appropriate blood pressure response to dobutamine. Test terminated due to attainment of target heart rate. Decrease sensitivity due to poor echo windows requiring Definity agent. No complications. Patient is at moderate risk for noncardiac surgery. Labs: LDL Cholesterol 139 mg/dL (0-130) H HDL Cholesterol 49 mg/dL (40-) Triglycerides 110 mg/dL (-199) VLDL Cholesterol 22 mg/dL (5-40) Diagnostics: Electrocardiogram Echocardiogram Stress Echocardiogram Stress Test NM Stress Test Chest X-Ray Pulmonary: No Data to Display Assessment and Plan Assessment and Plan (1) Atherosclerotic heart disease of [place] coronary artery without angina pectoris: Status: Acute Qualifiers: [place] vs. transplanted heart: [place] heart Qualified Code(s): I25.10 - Atherosclerotic heart disease of [place] coronary artery without angina pectoris Comment: 03/27/1993: RED to LAD (CABG X1 along with AVR, [facility]):06/28/2011 prior to PTCA and BMS to mid LAD, BMS to the mid distal CX, and BMS to the proximal CX @ [facility] Plan: He denies chest, arm, jaw, or neck discomfort. He does note shortness of breath with activity. He denies fatigue. His last echocardiogram in September 2020 showed ejection fraction of 45%. At this time, he was asked to continue current medical therapy. He will continue risk factor and lifestyle modification. His shortness of breath is thought to be pulmonary related as he does have bilateral expiratory wheeze on exam. (2) History of coronary artery stent placement: Status: Inactive Comment: 06/28/2011 prior to PTCA and BMS (3.0 mm X 18 mm long Integrity stent) to mid LAD, BMS to the mid distal CX (4.5 X 16mm Veriflex stent), and BMS to the proximal CX (3.5 X 15 mm Integrity stent) @ [facility] Plan: He will continue current medical therapy with aspirin 81 mg p.o. daily, isosorbide 30 mg p.o. daily, metoprolol tartrate 12.5 mg p.o. twice daily, and Crestor 40 mg p.o. nightly. (3) S/P CABG x 1: Status: Inactive Comment: 03/27/1993: RED to LAD and 23mm [facility] Prosthetic [facility] Plan: He we will continue current medical therapy. He will continue risk factor and lifestyle modification (4) History of aortic valve replacement: Status: Deleted Comment: 03/27/1993: RED to LAD and 23mm [facility] Plan: His echocardiogram in September 2020 showed an ejection fraction of 45%, peak aortic valve gradient of 33 mmHg, and mean aortic valve gradient of 20 mmHg. (5) Ischemic cardiomyopathy: Status: Inactive Plan: His most recent echocardiogram showed an ejection fraction of 45%. He does acknowledge shortness of breath with activity. He does not appear to be in overt fluid volume overload state on exam. Over time, could consider additional medication such as SGLT2 inhibitor as this will hopefully not impact heart rate and blood pressure as other medication such as NABIL inhibitor/ARB/ARNI. As his blood pressure is low and appears to be euvolemic on exam, we will change Lasix to every other day to avoid ongoing hypotension and reduced safety risk. (6) Chronic systolic (congestive) heart failure: Status: Inactive Plan: He will continue current treatment plan as outlined above. (7) Paroxysmal atrial fibrillation: Status: Inactive Plan: He appears to be in an irregular rhythm on exam. His heart rate is on the low side today. His heart remained low throughout his recent hospitalization. There is no specific comments/concerns regarding dysrhythmia during hospitalization. His twelve-lead EKG on 04/08/2022 shows sinus rhythm with marked sinus arrhythmia with first-degree AV block. He will continue low-dose metoprolol tartrate 12.5 mg p.o. twice daily for rate control. He will continue warfarin for CVA protection maintaining an INR goal of 2.5?3.5. (8) Pure hypercholesterolemia: Status: Chronic Plan: He will continue Crestor 40 mg p.o. nightly. (9) Essential hypertension: Status: Acute Plan: Patient's blood pressure is well-controlled today in the office. We will continue to monitor this. We will not make any medication regimen changes. (10) Anemia: Status: Chronic Qualifiers: Anemia type: iron deficiency Iron deficiency anemia type: chronic blood loss Qualified Code(s): D50.0 - Iron deficiency anemia secondary to blood loss (chronic) Comment: Had colonic/cecal angiodysplasia and coagulation was done on 04/03/2022. Discussed Iron replacement IV vs PO. He want oral replacement. Plan: To assure stability regarding this, is asked to undergo a CBC at next routine INR draw. He was encouraged continue to follow GI and hematology/oncology. Orders: Orders CBC W/Diff, Automated Today D50.0 - Iron deficiency anemia secondary to blood loss (chronic) Basic Metabolic Profile (BMP) Today D50.0 - Iron deficiency anemia secondary to blood loss (chronic) Medications: Changed From furosemide 40 mg PO DAILY To furosemide 40 mg PO Q OTHER DAY Resumed aspirin 81 mg PO DAILY@0800 [facility] Plan Details Additional Comments: Thank you for allowing me to participate in the care of your patient. Please don't hesitate to call if any issues arise. This note was generated using a voice recognition system and there may be incorrect words, spelling or punctuation that were not noted when reviewing the office note prior to saving. Follow Up: 4-6 weeks (SHUT OFF WORKER/PA) Keep as is (PFM) Coding Level of Care Code Off vis,est,level 4 Diagnoses Atherosclerotic heart disease of [place] coronary artery without angina pectoris I25.10 [place] vs. transplanted heart: [place] heart History of coronary artery stent placement Z95.5 S/P CABG x 1 Z95.1 History of aortic valve replacement Z95.2 Ischemic cardiomyopathy I25.5 Chronic systolic (congestive) heart failure I50.22 Paroxysmal atrial fibrillation I48.0 Pure hypercholesterolemia E78.00 Essential hypertension I10 Anemia D50.0 Anemia type: iron deficiency Iron deficiency anemia type: chronic blood loss Coding Level of Care Code Off vis,est,level 4 Diagnoses Atherosclerotic heart disease of [place] coronary artery without angina pectoris I25.10 [place] vs. transplanted heart: [place] heart History of coronary artery stent placement Z95.5 S/P CABG x 1 Z95.1 History of aortic valve replacement Z95.2 Ischemic cardiomyopathy I25.5 Chronic systolic (congestive) heart failure I50.22 Paroxysmal atrial fibrillation I48.0 Pure hypercholesterolemia E78.00 Essential hypertension I10 Anemia D50.0 Anemia type: iron deficiency Iron deficiency anemia type: chronic blood loss
== END 2022-06-15 09:31 | disposition home or self-care (01) ==
LOC: PCU 14:28
PROVIDERS: Admitting Provider Internal Medicine Cardiovascular Disease; PCP Family Medicine; Referring Provider Internal Medicine Cardiovascular Disease; Visit Provider Internal Medicine Cardiovascular Disease
DX: Z45.018 Encounter for adjustment and management of other part of cardiac pacemaker (principal); J44.9 Chronic obstructive pulmonary disease, unspecified; I13.0 Hypertensive heart and chronic kidney disease with heart failure and stage 1 through stage 4 chronic kidney disease, or unspecified chronic kidney disease; I50.22 Chronic systolic (congestive) heart failure; I27.21 Secondary pulmonary arterial hypertension; I49.5 Sick sinus syndrome; I48.0 Paroxysmal atrial fibrillation; N18.31 Chronic kidney disease, stage 3a; G89.4 Chronic pain syndrome; I25.5 Ischemic cardiomyopathy; E78.00 Pure hypercholesterolemia, unspecified; Z95.1 Presence of aortocoronary bypass graft; I25.10 Atherosclerotic heart disease of native coronary artery without angina pectoris; D50.0 Iron deficiency anemia secondary to blood loss (chronic); Z79.01 Long term (current) use of anticoagulants; Z79.899 Other long term (current) drug therapy; Z79.82 Long term (current) use of aspirin; Z95.2 Presence of prosthetic heart valve; K21.9 Gastro-esophageal reflux disease without esophagitis; I25.2 Old myocardial infarction; F17.210 Nicotine dependence, cigarettes, uncomplicated
CPT/HCPCS: 33208; 36416; 71047; 85610; 99152; 99153; 99218; J7040; J7050; Q9967; A4216; C1894; G0378

== ENCOUNTER → 2022-06-24 | Outpatient (CLI) | payer MEDICARE, SELFPAY ==
[2022-06-24 15:18] LABS: Absolute Lymphocyte Count 0.51 X10^3/uL (0.83-4.51); Absolute Neutrophil Count 2.9 X10^3/uL (2.0-7.7); Basophil# 0.03 X10^3/uL; Basophil% 0.8 % (0-1); Eosinophil# 0.06 X10^3/uL; Eosinophils% 1.6 % (0-5); Hematocrit 27.5 % (40-54); Hemoglobin 7.6 g/dL (13.0-16.5); Lymphocyte # 0.51 X10^3/ul (0.83-4.51); Lymphocyte % 13.3 % (19-41); Mean Corp Hgb Conc 27.6 g/dL (32-36); Mean Corpuscular Hgb 29.9 pg (27.0-32.0); Mean Corpuscular Volume 108.3 fL (80-94); Mean Platelet Vol. 11.6 fl (6.2-12.0); Monocyte# 0.33 X10^3/uL; Monocyte% 8.6 % (0-10); NRBC Flagged by Analyzer 0 % (0-5); Neutrophil # 2.89 X10^3/uL (2.7-7.7); Neutrophil % 75.2 % (47-70); POSITIVE DIFFERENTIAL YES; Platelet Count 160 K/mm3 (150-450); RBC Distribution Width CV 15.8 % (11.6-14.6); RBC Distribution Width SD 62.3 fl (35.1-43.9); Red Blood Count 2.54 M/mm3 (4.6-6.2); White Blood Count 3.8 K/mm3 (4.4-11.0)
[2022-06-24 15:53] LABS: Differential Indicated SCAN CRITERIA MET
[2022-06-24 16:24] LABS: Differential Comment SCANNED
[2022-06-25 12:06] LABS: Pathologist Review Reviewed
== END | disposition home or self-care (01) ==
LOC: MFPLAB 12:06
PROVIDERS: PCP Family Medicine; Referring Provider Family Medicine; Visit Provider Family Medicine
DX: D64.9 Anemia, unspecified (principal)
CPT/HCPCS: 36415; 85025

== ENCOUNTER → 2022-06-28 | Outpatient (CLI) | payer MEDICARE, SELFPAY ==
[2022-06-28 11:11] LABS: INR Fingerstick 2.2; Prothrombin Time Fingerstick 25.8 SEC (11.7-14.9)
== END | disposition home or self-care (01) ==
LOC: LAB 09:43
PROVIDERS: PCP Family Medicine; Referring Provider Family Medicine; Visit Provider Family Medicine
DX: I48.0 Paroxysmal atrial fibrillation (principal); Z95.2 Presence of prosthetic heart valve; Z79.01 Long term (current) use of anticoagulants
CPT/HCPCS: 36416; 85610

== ENCOUNTER 2022-06-29 09:52 | Emergency (ER) | payer OTHER, SELFPAY ==
[2022-06-29 09:53] VITALS: BP 106/58; PULSE 48; RESP 18; TEMP 36.6; O2SAT 98; BMI 23.3
--- NOTE | 2022-06-29 10:45 | EKG12_ITS ---
Test Reason : GENERAL Blood Pressure : / mmHG Vent. Rate : 071 BPM Atrial Rate : 053 BPM P-R Int : 172 ms QRS Dur : 172 ms QT Int : 458 ms P-R-T Axes : -66 -88 085 degrees QTc Int : 497 ms AV dual-paced rhythm with occasional ventricular-paced complexes Abnormal ECG Confirmed by JOSÉ KO, WEI ([id number]), design editor MIMA VALDEZ ([id number]) on 06/30/2022 11:58:57 AM Referred By: Confirmed By:WEI KUMAR MD
--- NOTE | 2022-06-29 10:49 | EX.ED.DYSGE1 ---
HPI History of Present Illness Chief Complaint: Abn Labs Informant: patient and family Narrative Narrative: Patient sent from the GI office secondary to low blood pressure and low hemoglobin. Patient is complains of being tired. He has a history of chronic anemia on last check his hemoglobin 7.6. He is reportedly hypotensive in the office and sent to the ER. He denies any obvious source of blood loss. [facility] Medical History (Updated 06/29/22 @ 12:[address] Radha Holland MD) Acute respiratory failure with hypoxia Ambulates with cane Anemia due to chronic blood loss Anticoagulant long-term use Arthritis Atherosclerotic heart disease of [place] coronary artery without angina pectoris Atrial fibrillation Back pain Back pain due to injury Cardiology follow-up encounter Chest pain CHF (congestive heart failure) Chronic airway obstruction Chronic anticoagulation Chronic cough Chronic pain syndrome Chronic systolic (congestive) heart failure COPD (chronic obstructive pulmonary disease) Difficulty swallowing Essential hypertension Gastric reflux Heart attack High cholesterol History of echocardiogram History of edema History of GI bleed History of heart attack History of pain when walking History of stress test Hx of fracture of ankle Hx of fracture of ankle Hypertension Injury of back Injury of head and neck Irregular heartbeat Ischemic cardiomyopathy alf current use of anticoagulant 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 On home oxygen therapy Osteoporosis Paroxysmal atrial fibrillation Persistent atrial fibrillation Presence of cardiac pacemaker Pure hypercholesterolemia Restless legs Secondary pulmonary arterial hypertension Shortness of breath on exertion Sick sinus syndrome Smoker Spinal stenosis of lumbar region Stage 3a chronic kidney disease (CKD) Stroke Symptomatic bradycardia TIA (transient ischemic attack) Tobacco use disorder Uncontrolled pain Wears dentures Wears glasses Home Medications albuterol sulfate 90 mcg/actuation breath activated powder inhaler 2 puff inhalation Q4H PRN PRN Wheezing 09/25/15 [History Last Taken 04/06/22] cholecalciferol (vitamin D3) 25 mcg (1,000 unit) tablet 2,000 unit PO DAILY SUPPLEMENT 09/25/15 [History Last Taken 06/11/22 08:00] aspirin 81 mg tablet,delayed release 81 mg PO DAILY@0800 HEART HEALTH 06/24/16 [History Last Taken 06/11/22 08:00] folic acid 1 mg tablet 1 mg PO QHS SUPPLEMENT 06/24/16 [History Last Taken 06/10/22 22:00] isosorbide mononitrate 30 mg tablet,extended release 24 hr 30 mg PO DAILY BP 11/21/17 [History Last Taken 06/11/22 08:00] pantoprazole 40 mg tablet,delayed release 40 mg PO BID ACID REFLUX 01/02/18 [History Last Taken 06/11/22 08:00] zolpidem 10 mg tablet 10 mg PO QHS SLEEP 05/26/18 [History Last Taken 06/10/22 22:00] pregabalin 75 mg capsule 75 mg PO TID pain 07/28/18 [History Last Taken 06/11/22 08:00] nitroglycerin 0.4 mg sublingual tablet 0.4 mg sublingual Q5M PRN Chest Pain #30 tabs 05/25/21 [Rx Last Taken Unknown] tiotropium 2.5 mcg-olodaterol 2.5 mcg/actuation mist for inhalation (Stiolto Respimat) 1 puff inhalation BID Check with primary doctor 06/18/21 [History Last Taken 06/11/22 08:00] buprenorphine 10 mcg/hour weekly transdermal patch 10 mcg transdermal FULLER pain 08/16/21 [History Last Taken 06/09/22 08:00] ipratropium 0.5 mg-albuterol 3 mg (2.5 mg base)/3 mL nebulization soln 3 ml inhalation 4X/DAY 11/25/21 [History Last Taken 04/06/22] ferrous sulfate 325 mg (65 mg iron) tablet 325 mg PO BID IRON SUPPLEMENT 04/06/22 [History Last Taken 06/11/22 08:00] warfarin 5 mg tablet 5 mg PO .COMPLEX #180 tabs 04/20/22 [Rx Last Taken 06/10/22 22:00] furosemide 40 mg tablet 40 mg PO Q OTHER DAY 05/27/22 [History Last Taken 06/10/22 08:00] Allergy/AdvReac Type Severity Reaction Status Date / Time No Known Allergies Allergy Verified 06/29/22 09:55 Family History Son , age 44 from [place] CAD (coronary artery disease) Myocardial infarction Sudden cardiac Brother CAD (coronary artery disease) Pt states all nine of his siblings have heart problems Sister CAD (coronary artery disease) Patient states all nine of his siblings have heart problems Surgical History H/O cardiac catheterization History of coronary artery stent placement (~06/28/11) History of esophagogastroduodenoscopy (EGD) (~10/2021) History of left heart catheterization History of lumbar fusion 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) Status post cardiac surgery Social History household members: family Smoking Status: Current every day smoker tobacco type: cigarettes alcohol intake: never substance use type: does not use caffeine: No ROS ROS ED Constitutional Constitutional ED: Denies chills or fever(s) Eyes Eyes: Denies change in vision or discharge from eye(s) ENT ENT ED: Denies discharge from eye(s), rhinorrhea or sore throat Cardiovascular Cardiovascular: Denies chest pain or palpitations Respiratory/Chest Respiratory/Chest: Denies cough or dyspnea Gastrointestinal Gastrointestinal: Denies abdominal pain, diarrhea, nausea or vomiting Genitourinary Genitourinary ED: Denies dysuria Musculoskeletal Musculoskeletal: Denies back pain or extremity pain Integumentary Denies Abrasions or rash Neurologic Neurologic: Reports weakness and other Details: Generalized weakness and fatigue. ; Denies headache(s) Psychiatric Psychiatric: Denies anxiety or depression Allergic/Immunologic Allergic/Immunologic ED: Denies lip swelling or urticaria EXAM Physical Exam Const Vital Signs: 06/29/22 09:53 06/29/22 11:12 Temperature 97.9 F Temperature Source Temporal Pulse Rate 48 L Respiratory Rate 18 Respiratory Effort Normal Non-Labored Respiratory Pattern Normal Blood Pressure 106/58 L Blood Pressure Mean 74 Pulse Ox 98 Oxygen Delivery Method Room Air Positive well nourished and well developed General Appearance ED: well developed HEENT Reports normocephalic and head/scalp atraumatic Eyes PERRL and EOMs intact bilaterally Neck supple Chest Wall inspection of chest normal and palpation of chest normal Resp normal respiratory effort and clear to auscultation bilaterally Cardio regular rhythm Rate: bradycardia GI non-tender Auscultation: hypoactive bowel sounds Palpation: soft Extremity normal to inspection Neuro oriented x3 and no sensory deficits noted Sensorium / Orientation: alert Motor Exam: strength 5/5 throughout Psych mental status grossly normal Skin no rashes or lesions noted MDM MDM MDM Narrative Medical decision making narrative: Lab work obtained. Patient placed on director of cardiac cath lab and EKG ordered. Patient does have a new pacemaker. It appears the pacemaker is functioning appropriately and I believe that the bradycardic rate documented in triage was taken off of a radial pulse or from a pulse ox reading. Lab Data Attestation: I reviewed the patient's lab results. Labs: Laboratory Results - last 24 hr 06/29/22 06/29/22 06/29/22 11:00 11:00 11:00 WBC 3.1 L RBC 2.86 L Hgb 8.1 L Hct 29.6 L MCV 103.5 H MCH 28.3 MCHC 27.4 L RDW Std Deviation 57.3 H RDW Coeff of [place] 15.0 H Plt Count 147 L MPV 10.6 Immature Gran % (Auto) 0.600 Neut % (Auto) 75.1 H Lymph % (Auto) 11.5 L [place] % (Auto) 10.2 H Eos % (Auto) 1.6 Baso % (Auto) 1.0 Absolute Neuts (auto) 2.4 Absolute Lymphs (auto) 0.36 L Nucleated RBC % 0 Diff Path Review May foll Hypochromasia 1+ PT 26.3 H INR 2.5 APTT 45.6 H Sodium 141 Potassium 4.1 Chloride 107 Carbon Dioxide 31.0 Anion Gap 3 L BUN 14 Creatinine 1.33 H Estim Creat Clear Calc 42.69 Est GFR (MDRD) Af Amer 66 Est GFR (MDRD) Non-Af 54 L BUN/Creatinine Ratio 10.5 Glucose 106 Calcium 8.4 L Blood Type Antibody Screen 06/29/22 11:00 WBC RBC Hgb Hct MCV MCH MCHC RDW Std Deviation RDW Coeff of [place] Plt Count MPV Immature Gran % (Auto) Neut % (Auto) Lymph % (Auto) [place] % (Auto) Eos % (Auto) Baso % (Auto) Absolute Neuts (auto) Absolute Lymphs (auto) Nucleated RBC % Diff Path Review Hypochromasia PT INR APTT Sodium Potassium Chloride Carbon Dioxide Anion Gap BUN Creatinine Estim Creat Clear Calc Est GFR (MDRD) Af Amer Est GFR (MDRD) Non-Af BUN/Creatinine Ratio Glucose Calcium Blood Type O POSITIVE Antibody Screen NEGATIVE EKG Initial EKG: Attestation: I personally reviewed and interpreted this EKG as follows: Interpretation: - (AV paced rhythm with a ventricular rate of 71 bpm. No acute ischemia.) Treatment and Re-Evaluation Narrative: CBC reveals chronic leukopenia with a white count of 3.1. Hemoglobin is 8.1. This is actually increased compared to his most recent blood draw at which time his hemoglobin was 7.6. INR is therapeutic at 2.5. Chemistry studies are largely unremarkable and not significantly changed from baseline. I reviewed the patient's blood pressure readings while in the emergency room. His lowest blood pressure reading has been 102. I believe he was likely hypotensive in the doctor's office because he had kicked into [employer] RVR. His heart rate is since converted and he is now appropriately paced. I did speak with Dr. Muir. We reviewed his laboratory findings today. With no significant changes patient we discharged home to continue follow-up as scheduled. Discharge Plan Triage Chief Complaint: Abn Labs ED Provider: Radha Holland Dx/Rx/DC Orders Clinical Impression: Chronic anemia, PAF (paroxysmal atrial fibrillation) Instructions: ED AFIB, ED Anemia, Type Not Specified (Adult) Prescriptions: No Action isosorbide mononitrate 30 mg tablet extended release 24 hr 30 mg PO DAILY nitroglycerin 0.4 mg tablet, sublingual 0.4 mg SUBLINGUAL Q5M PRN (Reason: Chest Pain) Qty: 30 0RF Label Comments: chest pain ipratropium-albuterol 0.5 mg-3 mg(2.5 mg base)/3 mL solution for nebulization 3 ml INHALATION 4X/DAY Label Comments: breathing furosemide 40 mg tablet 40 mg PO Q OTHER DAY pantoprazole 40 mg tablet,delayed release (DR/EC) 40 mg PO BID Label Comments: acid reflux cholecalciferol (vitamin D3) 1,000 UNIT tablet 2,000 unit PO DAILY Label Comments: supplement albuterol sulfate 90 MCG aerosol powdr breath activated 2 puff INHALATION Q4H PRN PRN (Reason: Wheezing) Label Comments: breathing aspirin 81 MG tablet 81 mg PO DAILY@0800 Hold Instructions: Resume on 04/07/22. Label Comments: heart [facility] WAS TOLD TO STOP FOR SURGERY folic acid 1 MG tablet 1 mg PO QHS zolpidem 10 MG tablet 10 mg PO QHS pregabalin 75 MG capsule 75 mg PO TID Stiolto Respimat 2.5-2.5 mcg/actuation Mist 1 puff INHALATION BID buprenorphine 10 mcg/hour patch weekly 10 mcg transdermal FULLER Label Comments: APPLY 1 (ONE) patch transdermally and wear for 1 (ONE) week, sundays ferrous sulfate 325 MG tablet 325 mg PO BID Label Comments: iron supplement warfarin 5 mg tablet 5 mg PO .COMPLEX Qty: 180 3RF Protocol: Dose Management Condition: Tuesday Dose/Route: 5 mg Instruction: 1 x 5 mg tablet Condition: Tuesday Dose/Route: 7.5 mg Instruction: 1.5 x 5 mg tablets Condition: Tuesday Dose/Route: 5 mg Instruction: 1 x 5 mg tablet Condition: Tuesday Dose/Route: 5 mg Instruction: 1 x 5 mg tablet Condition: Dose/Route: 5 mg Instruction: 1 x 5 mg tablet Condition: Tuesday Dose/Route: 5 mg Instruction: 1 x 5 mg tablet Condition: Tuesday Dose/Route: 5 mg Instruction: 1 x 5 mg tablet Protocol Text: Adjustment Start Date: Tuesday06/21/22 INR Value: 1.9 INR Date: 06/21/22 Recheck Date: 06/28/22 Rx Instructions: 5 mg orally daily except 7.5 mg Tue and Tuesday, or as directed; dose changes often so give extra pills; Primary Care Provider: Guillermo Pritchard Referrals: Guillermo Pritchard MD [Primary Care Provider] - Fazal Muir DO [Med Staff - Active Staff] - 1-2 Weeks Disposition Disposition: Home, Self Care
[2022-06-29] MEDS: 0.9% Normal Saline 1,000 ML 150 ML IV (11:11)
[2022-06-29 11:19] LABS: Absolute Lymphocyte Count 0.36 X10^3/uL (0.83-4.51); Absolute Neutrophil Count 2.4 X10^3/uL (2.0-7.7); Basophil# 0.03 X10^3/uL; Eosinophil# 0.05 X10^3/uL; Eosinophils% 1.6 % (0-5); Hematocrit 29.6 % (40-54); Hemoglobin 8.1 g/dL (13.0-16.5); Lymphocyte # 0.36 X10^3/ul (0.83-4.51); Lymphocyte % 11.5 % (19-41); Mean Corp Hgb Conc 27.4 g/dL (32-36); Mean Corpuscular Hgb 28.3 pg (27.0-32.0); Mean Corpuscular Volume 103.5 fL (80-94); Mean Platelet Vol. 10.6 fl (6.2-12.0); Monocyte# 0.32 X10^3/uL; Monocyte% 10.2 % (0-10); NRBC Flagged by Analyzer 0 % (0-5); Neutrophil # 2.36 X10^3/uL (2.7-7.7); Neutrophil % 75.1 % (47-70); POSITIVE DIFFERENTIAL YES; Platelet Count 147 K/mm3 (150-450); RBC Distribution Width SD 57.3 fl (35.1-43.9); Red Blood Count 2.86 M/mm3 (4.6-6.2); White Blood Count 3.1 K/mm3 (4.4-11.0)
[2022-06-29 11:28] LABS: Differential Indicated SCAN CRITERIA MET
[2022-06-29 11:30] LABS: International Normalized Ratio 2.5; Partial Thromboplast Time 45.6 Seconds (24.1-36.2); Prothrombin Time (Protime)PT. 26.3 SECONDS (11.7-14.9)
[2022-06-29 11:31] LABS: Anion Gap 3 (5-15); BUN 14 mg/dL (7-18); BUN/Creat Ratio 10.5 RATIO (10-20); Calcium,Total 8.4 mg/dL (8.5-10.1); Chloride 107 mmol/L (98-107); Creatinine, Serum 1.33 mg/dL (0.70-1.30); EST Glomerular Filtration Rate 54 mL/min (>60); Est Glom Filt Rate - Afr Amer 66 mL/min (>60); Estimated Creatinine Clearance 42.69 ml/min; Glucose 106 mg/dL (74-106); Potassium 4.1 mmol/L (3.5-5.1); Sodium Level 141 mmol/L (136-145)
[2022-06-29 11:48] LABS: Hypochromasia 1+
[2022-06-29 13:06] VITALS: BP 115/59; PULSE 56; RESP 18; O2SAT 98
[2022-06-30 15:38] LABS: Pathologist Review Reviewed
--- NOTE | 2022-07-01 09:43 | ED.RN ---
THIS [facility] ABOUT WHAT HIS FINAL PATIENT DIAGNOSIS WAS.
== END 2022-06-29 13:07 | disposition home or self-care (01) ==
PROVIDERS: Emergency Provider Emergency Medicine; PCP Family Medicine; Visit Provider Emergency Medicine
DX: I48.0 Paroxysmal atrial fibrillation (principal); J44.9 Chronic obstructive pulmonary disease, unspecified; I13.0 Hypertensive heart and chronic kidney disease with heart failure and stage 1 through stage 4 chronic kidney disease, or unspecified chronic kidney disease; I50.22 Chronic systolic (congestive) heart failure; N18.31 Chronic kidney disease, stage 3a; D64.9 Anemia, unspecified; I95.9 Hypotension, unspecified; E78.00 Pure hypercholesterolemia, unspecified; Z95.0 Presence of cardiac pacemaker; I25.10 Atherosclerotic heart disease of native coronary artery without angina pectoris
CPT/HCPCS: 80048; 85025; 85610; 85730; 86850; 86900; 86901; 93005; 96360; 96361; 99284; J7030; A4216

== ENCOUNTER → 2022-07-05 | Outpatient (CLI) | payer MEDICARE, SELFPAY ==
[2022-07-05 12:00] LABS: INR Fingerstick 1.9; Prothrombin Time Fingerstick 22.8 SEC (11.7-14.9)
== END | disposition home or self-care (01) ==
LOC: LAB 08:11
PROVIDERS: PCP Family Medicine; Visit Provider Internal Medicine Cardiovascular Disease
DX: I48.0 Paroxysmal atrial fibrillation (principal); Z79.01 Long term (current) use of anticoagulants; Z95.2 Presence of prosthetic heart valve
CPT/HCPCS: 36416; 85610

== ENCOUNTER 2022-07-08 12:47 | Outpatient (RCR) | payer MEDICARE, SELFPAY ==
[2022-06-21 14:26] LABS: INR Fingerstick 1.9
[2022-07-08 12:55] LABS: INR Fingerstick 2.6; Prothrombin Time Fingerstick 29.9 SEC (11.7-14.9)
[2022-07-08 14:47] LABS: Absolute Lymphocyte Count 0.66 X10^3/uL (0.83-4.51); Absolute Neutrophil Count 2.6 X10^3/uL (2.0-7.7); Basophil# 0.03 X10^3/uL; Basophil% 0.8 % (0-1); Eosinophil# 0.06 X10^3/uL; Eosinophils% 1.7 % (0-5); Hematocrit 32.1 % (40-54); Hemoglobin 8.8 g/dL (13.0-16.5); Lymphocyte # 0.66 X10^3/ul (0.83-4.51); Lymphocyte % 18.4 % (19-41); Mean Corp Hgb Conc 27.4 g/dL (32-36); Mean Corpuscular Hgb 28.1 pg (27.0-32.0); Mean Corpuscular Volume 102.6 fL (80-94); Mean Platelet Vol. 10.5 fl (6.2-12.0); Monocyte# 0.22 X10^3/uL; Monocyte% 6.1 % (0-10); NRBC Flagged by Analyzer 0 % (0-5); Neutrophil # 2.61 X10^3/uL (2.7-7.7); Neutrophil % 72.7 % (47-70); Platelet Count 177 K/mm3 (150-450); RBC Distribution Width CV 15.3 % (11.6-14.6); RBC Distribution Width SD 56.7 fl (35.1-43.9); Red Blood Count 3.13 M/mm3 (4.6-6.2); White Blood Count 3.6 K/mm3 (4.4-11.0)
== END 2022-07-08 18:00 | disposition home or self-care (01) ==
LOC: LAB 12:47
PROVIDERS: Nurse Practitioner Gerontology; PCP Family Medicine; Referring Provider Internal Medicine Cardiovascular Disease; Visit Provider Internal Medicine Cardiovascular Disease
DX: I48.0 Paroxysmal atrial fibrillation (principal); Z79.01 Long term (current) use of anticoagulants; D50.0 Iron deficiency anemia secondary to blood loss (chronic)
CPT/HCPCS: 36415; 36416; 85025; 85610

== ENCOUNTER → 2022-07-26 | Outpatient (CLI) | payer MEDICARE, SELFPAY ==
[2022-07-26 11:01] LABS: INR Fingerstick 3.8; Prothrombin Time Fingerstick 42.6 SEC (11.7-14.9)
== END | disposition home or self-care (01) ==
LOC: LAB 10:44
PROVIDERS: PCP Family Medicine; Referring Provider Internal Medicine Cardiovascular Disease; Visit Provider Internal Medicine Cardiovascular Disease
DX: I48.0 Paroxysmal atrial fibrillation (principal); Z79.01 Long term (current) use of anticoagulants; Z95.2 Presence of prosthetic heart valve
CPT/HCPCS: 36416; 85610

== ENCOUNTER → 2022-08-02 | Outpatient (CLI) | payer MEDICARE, SELFPAY ==
[2022-08-02 11:51] LABS: INR Fingerstick 3.7
== END | disposition home or self-care (01) ==
LOC: LAB 09:18
PROVIDERS: PCP Family Medicine; Referring Provider Internal Medicine Cardiovascular Disease; Visit Provider Internal Medicine Cardiovascular Disease
DX: I48.0 Paroxysmal atrial fibrillation (principal); Z79.01 Long term (current) use of anticoagulants; Z95.2 Presence of prosthetic heart valve
CPT/HCPCS: 36416; 85610

== ENCOUNTER → 2022-08-09 | Outpatient (CLI) | payer MEDICARE, SELFPAY ==
[2022-08-09 10:45] LABS: Prothrombin Time Fingerstick 23.7 SEC (11.7-14.9)
== END | disposition home or self-care (01) ==
LOC: LAB 08:58
PROVIDERS: PCP Family Medicine; Visit Provider Internal Medicine Cardiovascular Disease
DX: I48.0 Paroxysmal atrial fibrillation (principal); Z95.2 Presence of prosthetic heart valve; Z79.01 Long term (current) use of anticoagulants
CPT/HCPCS: 36416; 85610

== ENCOUNTER → 2022-08-16 | Outpatient (CLI) | payer MEDICARE, SELFPAY ==
[2022-08-16 11:41] LABS: Prothrombin Time Fingerstick 34.4 SEC (11.7-14.9)
== END | disposition home or self-care (01) ==
LOC: LAB 10:18
PROVIDERS: PCP Family Medicine; Visit Provider Internal Medicine Cardiovascular Disease
DX: I48.0 Paroxysmal atrial fibrillation (principal); Z79.01 Long term (current) use of anticoagulants; Z95.2 Presence of prosthetic heart valve
CPT/HCPCS: 36416; 85610

== ENCOUNTER → 2022-08-20 | Outpatient (CLI) | payer MEDICARE, SELFPAY ==
[2022-08-20 10:26] LABS: INR Fingerstick 3.8; Prothrombin Time Fingerstick 42.6 SEC (11.7-14.9)
== END | disposition home or self-care (01) ==
LOC: LAB 09:06
PROVIDERS: PCP Family Medicine; Visit Provider Internal Medicine Cardiovascular Disease
DX: I48.0 Paroxysmal atrial fibrillation (principal); Z95.2 Presence of prosthetic heart valve; Z79.01 Long term (current) use of anticoagulants
CPT/HCPCS: 36416; 85610

== ENCOUNTER → 2022-08-23 | Outpatient (CLI) | payer MEDICARE, SELFPAY ==
[2022-08-23 10:39] LABS: International Normalized Ratio 2.8; Prothrombin Time (Protime)PT. 29.2 SECONDS (11.7-14.9)
== END | disposition home or self-care (01) ==
LOC: LAB 09:05
PROVIDERS: PCP Family Medicine; Visit Provider Internal Medicine Cardiovascular Disease
DX: I48.0 Paroxysmal atrial fibrillation (principal); Z79.01 Long term (current) use of anticoagulants; Z95.2 Presence of prosthetic heart valve
CPT/HCPCS: 36415; 85610

== ENCOUNTER 2022-08-24 09:52 | Inpatient (IN) | payer MEDICARE, SELFPAY ==
[2022-08-24 10:06] VITALS: BP 108/66; PULSE 96; RESP 14; TEMP 36.4; O2SAT 99; BMI 22.8
[2022-08-24 13:32] LABS: Absolute Lymphocyte Count 0.67 X10^3/uL (0.83-4.51); Absolute Neutrophil Count 5.7 X10^3/uL (2.0-7.7); Basophil# 0.04 X10^3/uL; Basophil% 0.6 % (0-1); Eosinophils% 1.4 % (0-5); Hematocrit 35.9 % (40-54); Hemoglobin 10.9 g/dL (13.0-16.5); Lymphocyte # 0.67 X10^3/ul (0.83-4.51); Lymphocyte % 9.5 % (19-41); Mean Corp Hgb Conc 30.4 g/dL (32-36); Mean Corpuscular Hgb 28.3 pg (27.0-32.0); Mean Corpuscular Volume 93.2 fL (80-94); Mean Platelet Vol. 10.7 fl (6.2-12.0); Monocyte# 0.51 X10^3/uL; Monocyte% 7.2 % (0-10); NRBC Flagged by Analyzer 0 % (0-5); Neutrophil % 80.7 % (47-70); Platelet Count 182 K/mm3 (150-450); RBC Distribution Width CV 16.1 % (11.6-14.6); RBC Distribution Width SD 55.4 fl (35.1-43.9); Red Blood Count 3.85 M/mm3 (4.6-6.2); White Blood Count 7.1 K/mm3 (4.4-11.0)
[2022-08-24 13:45] LABS: Anion Gap 5 (5-15); BUN 19 mg/dL (7-18); Calcium,Total 8.4 mg/dL (8.5-10.1); Chloride 107 mmol/L (98-107); Creatinine, Serum 1.27 mg/dL (0.70-1.30); EST Glomerular Filtration Rate 57 mL/min (>60); Est Glom Filt Rate - Afr Amer 69 mL/min (>60); Estimated Creatinine Clearance 44.17 ml/min; Glucose 106 mg/dL (74-106); Potassium 4.5 mmol/L (3.5-5.1); Sodium Level 142 mmol/L (136-145)
--- NOTE | 2022-08-24 14:16 | CT_ITS ---
STUDY: CT PELVIS WITH CONTRAST REASON FOR EXAM: Male, 82 years old. Recurring left rectal abscess RADIATION DOSAGE (If Supplied By Facility): CTDIvol = ( 8.87 ) mGy, DLP = ( 325.07 ) mGycm TECHNIQUE: Transaxial imaging of the pelvis was performed without oral contrast. IV 100mL Isovue-300 was administered intravenously. Multiplanar coronal and sagittal images were reformatted. Individualized dose optimization techniques were used for this CT. COMPARISON: Comparison is made with prior examination of 04/02/2022. 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 There is a 1.8 cm cyst in the inferior medial aspect of the right kidney. There is diffuse subcutaneous edema in the medial posterior aspect of the left gluteal region. Within the edema, there is evidence of a 2 cm x 2 cm hypolucency suggestive of a localized abscess. There is also evidence of a scrotal thickening. Diffuse bladder wall thickening. Prostatic enlargement. Normal visualized small intestine. There are multiple colonic diverticula of the sigmoid colon consistent with chronic diverticulosis. There is no pelvic fluid. There is no pelvic lymphadenopathy or mass lesion. There is diffuse atherosclerotic calcification of the pelvic arteries. Normal abdominal wall. There are diffuse degenerative changes of the visualized lumbar spine. Prior multilevel laminectomy and interpedicular screw and hilario fixation of the lumbar spine. CT/Pelvis WITH IV Contrast IMPRESSION: Cellulitis involving the medial posterior aspect of the left gluteal region with evidence of a 2 cm x 2 cm hypodensity suggestive of a localized abscess. Electronically Signed: Tyler Early MD at 14:52 EST ,
--- NOTE | 2022-08-24 14:18 | EX.ED.DYSGE1 ---
HPI History of Present Illness Chief Complaint: Wound Narrative Narrative: 82-year-old male presenting with abscess to the left perirectal area. He reportedly has had this since the 70s. It is recurrent. He states he saw a surgeon at 1 point but cannot recall the name of the surgeon. He has had this incised and drained several times. Unknown history of MRSA. He states currently has been here for a couple of days. Yesterday it was a quarter size. Today it is more of a tennis ball size. No drainage. He does admit to increased pain. No fever, chills, nausea, vomiting. Patient is on Coumadin due to history of A-fib. States today he was 2.8 INR. He has been holding his Coumadin because he was supratherapeutic. [facility] Medical History Acute respiratory failure with hypoxia Ambulates with cane Anemia due to chronic blood loss Anticoagulant long-term use Arthritis Atherosclerotic heart disease of [place] coronary artery without angina pectoris Atrial fibrillation Back pain Back pain due to injury Cardiology follow-up encounter Chest pain CHF (congestive heart failure) Chronic airway obstruction Chronic anticoagulation Chronic cough Chronic pain syndrome Chronic systolic (congestive) heart failure COPD (chronic obstructive pulmonary disease) Difficulty swallowing Essential hypertension Gastric reflux Heart attack High cholesterol History of echocardiogram History of edema History of GI bleed History of heart attack History of pain when walking History of stress test Hx of fracture of ankle Hx of fracture of ankle Hypertension Injury of back Injury of head and neck Irregular heartbeat 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 On home oxygen therapy Osteoporosis Paroxysmal atrial fibrillation Persistent atrial fibrillation Presence of cardiac pacemaker Pure hypercholesterolemia Restless legs Secondary pulmonary arterial hypertension Shortness of breath on exertion Sick sinus syndrome Smoker Spinal stenosis of lumbar region Stage 3a chronic kidney disease (CKD) Stroke Symptomatic bradycardia TIA (transient ischemic attack) Tobacco use disorder Uncontrolled pain Wears dentures Wears glasses Home Medications albuterol sulfate 90 mcg/actuation breath activated powder inhaler 2 puff inhalation Q4H PRN PRN Wheezing 09/25/15 [History Last Taken 04/06/22] cholecalciferol (vitamin D3) 25 mcg (1,000 unit) tablet 2,000 unit PO DAILY SUPPLEMENT 09/25/15 [History Last Taken 06/11/22 08:00] aspirin 81 mg tablet,delayed release 81 mg PO DAILY@0800 HEART HEALTH 06/24/16 [History Last Taken 06/11/22 08:00] folic acid 1 mg tablet 1 mg PO QHS SUPPLEMENT 06/24/16 [History Last Taken 06/10/22 22:00] isosorbide mononitrate 30 mg tablet,extended release 24 hr 30 mg PO DAILY BP 11/21/17 [History Last Taken 06/11/22 08:00] pantoprazole 40 mg tablet,delayed release 40 mg PO BID ACID REFLUX 01/02/18 [History Last Taken 06/11/22 08:00] zolpidem 10 mg tablet 10 mg PO QHS SLEEP 05/26/18 [History Last Taken 06/10/22 22:00] pregabalin 75 mg capsule 75 mg PO TID pain 07/28/18 [History Last Taken 06/11/22 08:00] nitroglycerin 0.4 mg sublingual tablet 0.4 mg sublingual Q5M PRN Chest Pain #30 tabs 05/25/21 [Rx Last Taken Unknown] tiotropium 2.5 mcg-olodaterol 2.5 mcg/actuation mist for inhalation (Stiolto Respimat) 1 puff inhalation BID Check with primary doctor 06/18/21 [History Last Taken 06/11/22 08:00] buprenorphine 10 mcg/hour weekly transdermal patch 10 mcg transdermal FULLER pain 08/16/21 [History Last Taken 06/09/22 08:00] ipratropium 0.5 mg-albuterol 3 mg (2.5 mg base)/3 mL nebulization soln 3 ml inhalation 4X/DAY 11/25/21 [History Last Taken 04/06/22] ferrous sulfate 325 mg (65 mg iron) tablet 325 mg PO BID IRON SUPPLEMENT 04/06/22 [History Last Taken 06/11/22 08:00] warfarin 5 mg tablet 5 mg PO .COMPLEX #180 tabs 04/20/22 [Rx Last Taken 06/10/22 22:00] furosemide 40 mg tablet 40 mg PO Q OTHER DAY 05/27/22 [History Last Taken 06/10/22 08:00] enoxaparin 60 mg/0.6 mL subcutaneous syringe 60 mg (0.6 mL) subcut Q12H bridging while off warfarin for procedure #6 mL 08/19/22 [Rx Last Taken Unknown] Allergy/AdvReac Type Severity Reaction Status Date / Time No Known Allergies Allergy Verified 08/24/22 10:09 Family History Son , age 44 from [place] CAD (coronary artery disease) Myocardial infarction Sudden cardiac Brother CAD (coronary artery disease) Pt states all nine of his siblings have heart problems Sister CAD (coronary artery disease) Patient states all nine of his siblings have heart problems Surgical History H/O cardiac catheterization History of coronary artery stent placement (~06/28/11) History of esophagogastroduodenoscopy (EGD) (~10/2021) History of left heart catheterization History of lumbar fusion History of mechanical aortic valve replacement (~03/27/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 Hx of cardiac pacemaker (~05/2022) S/P CABG x 1 (~03/27/93) Status post cardiac surgery Social History household members: family Smoking Status: Current every day smoker tobacco type: cigarettes alcohol intake: never substance use type: does not use caffeine: No ROS ROS ED Constitutional Constitutional ED: Denies chills, fever(s) or sweats Eyes Eyes: Denies blurry vision or change in vision ENT ENT ED: Denies ear pain or sore throat Cardiovascular Cardiovascular: Denies chest pain, palpitations or racing heartbeat Respiratory/Chest Respiratory/Chest: Denies cough, dyspnea or sputum Gastrointestinal Gastrointestinal: Denies abdominal pain, constipation, diarrhea, nausea or vomiting Genitourinary Genitourinary ED: Denies dysuria, hematuria or urinary frequency Musculoskeletal Musculoskeletal: Denies arthralgias, myalgias or neck pain Integumentary Reports abscess and rash; Denies Abrasions Neurologic Neurologic: Denies headache(s), paresthesias or weakness Psychiatric Psychiatric: Denies anxiety, depression, suicidal ideation or suicidal thoughts Endocrine Endocrinology: Denies polydipsia or polyuria EXAM Physical Exam Const Vital Signs: 08/24/22 10:06 Temperature 97.6 F L Temperature Source Temporal Pulse Rate 96 Respiratory Rate 14 Blood Pressure 108/66 Blood Pressure Mean 80 Pulse Ox 99 Oxygen Delivery Method Room Air Positive well nourished General Appearance ED: NAD HEENT Reports moist mucous membranes Eyes PERRL and EOMs intact bilaterally Chest Wall inspection of chest normal Resp normal respiratory effort and clear to auscultation bilaterally GI normal to inspection, nondistended, normoactive bowel sounds Extremity normal to inspection Neuro oriented x3 and CN's II-XII intact bilaterally Sensorium / Orientation: alert Skin Skin Narrative: Large fluctuant region of the left perianal/rectal region. No drainage. Tender to palpation. Erythema and warmth here. MDM MDM MDM Narrative Medical decision making narrative: Patient presenting with abscess on the left gluteal region. The area of fluctuance is fairly small however there is some erythema and edema surrounding the left gluteal fold. Very tender to palpation. Patient was sent to the ER for surgical consult. He was unsure why. I spoke with Dr. Marissa Moraes who stated that he probably has some fistulas which are the issue given his ongoing recurrent abscess. Blood work was obtained CBC showed no leukocytosis. Hemoglobin at 10.9 this is his baseline. Platelets 182 and normal. INR is 2.2 and has come down from 2.8 yesterday. Renal function and electrolytes are normal. Dr. Galindo requested that I I&D and admission for IV antibiotics and will follow. Patient's wound was cleaned with chlorhexidine. Prepped and draped in a sterile fashion. Anesthesia achieved with 5 cc of lidocaine. 2 cm x 2 cm cruciate incision made with 11 blade with serosanguineous drainage. Not much purulent drainage achieved. Culture was obtained. Wound was deloculated. Wound was irrigated with 500 cc of sterile saline. Patient tolerated procedure well. Patient started on Zosyn. Will be admitted to the hospitalist. Impression: 1. Left gluteal abscess 2. Gluteal cellulitis Lab Data Attestation: I reviewed the patient's lab results. Labs: Laboratory Results - last 24 hr 08/24/22 08/24/22 08/24/22 13:22 13:22 Unknown WBC 7.1 RBC 3.85 L Hgb 10.9 L Hct 35.9 L MCV 93.2 MCH 28.3 MCHC 30.4 L RDW Std Deviation 55.4 H RDW Coeff of [place] 16.1 H Plt Count 182 MPV 10.7 Immature Gran % (Auto) 0.600 Neut % (Auto) 80.7 H Lymph % (Auto) 9.[address] [place] % (Auto) 7.2 Eos % (Auto) 1.4 Baso % (Auto) 0.6 Absolute Neuts (auto) 5.7 Absolute Lymphs (auto) 0.67 L Nucleated RBC % 0 PT 24.3 H INR 2.2 Sodium 142 Potassium 4.5 Chloride 107 Carbon Dioxide 30.0 Anion Gap 5 BUN 19 H Creatinine 1.27 Estim Creat Clear Calc 44.17 Est GFR (MDRD) Af Amer 69 Est GFR (MDRD) Non-Af 57 L BUN/Creatinine Ratio 15.0 Glucose 106 Calcium 8.4 L Radiography Diagnostic Testing: Clinical Impression(s) from Imaging Studies Pelvis CT 08/24/22 14:16 IMPRESSION: Cellulitis involving the medial posterior aspect of the left gluteal region with evidence of a 2 cm x 2 cm hypodensity suggestive of a localized abscess. Electronically Signed: Tyler Early MD at 14:52 EST , Discharge Plan Triage Chief Complaint: Wound ED Provider: Nnamdi Henry Dx/Rx/DC Orders Prescriptions: No Action isosorbide mononitrate 30 mg tablet extended release 24 hr 30 mg PO DAILY nitroglycerin 0.4 mg tablet, sublingual 0.4 mg SUBLINGUAL Q5M PRN (Reason: Chest Pain) Qty: 30 0RF Label Comments: chest pain ipratropium-albuterol 0.5 mg-3 mg(2.5 mg base)/3 mL solution for nebulization 3 ml INHALATION 4X/DAY Label Comments: breathing furosemide 40 mg tablet 40 mg PO Q OTHER DAY pantoprazole 40 mg tablet,delayed release (DR/EC) 40 mg PO BID Label Comments: acid reflux cholecalciferol (vitamin D3) 1,000 UNIT tablet 2,000 unit PO DAILY Label Comments: supplement albuterol sulfate 90 MCG aerosol powdr breath activated 2 puff INHALATION Q4H PRN PRN (Reason: Wheezing) Label Comments: breathing aspirin 81 MG tablet 81 mg PO DAILY@0800 Hold Instructions: anemia Label Comments: heart health WAS TOLD TO STOP FOR SURGERY folic acid 1 MG tablet 1 mg PO QHS zolpidem 10 MG tablet 10 mg PO QHS pregabalin 75 MG capsule 75 mg PO TID Stiolto Respimat 2.5-2.5 mcg/actuation Mist 1 puff INHALATION BID buprenorphine 10 mcg/hour patch weekly 10 mcg transdermal FULLER Label Comments: APPLY 1 (ONE) patch transdermally and wear for 1 (ONE) week, sundays ferrous sulfate 325 MG tablet 325 mg PO BID Label Comments: iron supplement warfarin 5 mg tablet 5 mg PO .COMPLEX Qty: 180 3RF Protocol: Dose Management Condition: Tuesday Dose/Route: 5 mg Instruction: 1 x 5 mg tablet Condition: Tuesday Dose/Route: 0 mg Instruction: 0 tablets Condition: Tuesday Dose/Route: 0 mg Instruction: 0 tablets Condition: Tuesday Dose/Route: 0 mg Instruction: 0 tablets Condition: Dose/Route: 5 mg Instruction: 1 x 5 mg tablet Condition: Tuesday Dose/Route: 5 mg Instruction: 1 x 5 mg tablet Condition: Tuesday Dose/Route: 5 mg Instruction: 1 x 5 mg tablet Protocol Text: Adjustment Start Date: Tuesday08/23/22 INR Value: 2.8 INR Date: 08/23/22 Rx Instructions: 5 mg orally daily except 7.5 mg Tue and Tuesday, or as directed; dose changes often so give extra pills; enoxaparin 60 mg/0.6 mL syringe 60 mg subcut Q12H Qty: 6 1RF Primary Care Provider: Guillermo Pritchard Referrals: Guillermo Pritchard MD [Primary Care Provider] -
[2022-08-24 14:39] LABS: International Normalized Ratio 2.2; Prothrombin Time (Protime)PT. 24.3 SECONDS (11.7-14.9)
[2022-08-24] MEDS: Ondansetron 4 MG/2 ML Vial IV (16:35)
[2022-08-24] MEDS: Morphine 4 MG/ML Syringe IV (16:35)
--- NOTE | 2022-08-24 16:55 | ED.RN ---
ATTEMPTED TO CALL DAUGHTER DEBBIE TO UPDATE ON PT'S STATUS, NO ANSWER.
--- NOTE | 2022-08-24 17:02 | PCM.HP.STD ---
HPI - General General Date of Admission: 08/24/22 Date of Service: 08/24/22 Chief Complaint: L gluteal pain, fluctuance. HPI Narrative The patient is an 82 y/o M w/ PMHx: COPD with chronic hypoxic respiratory failure, Chronic anemia/Fe deficiency anemia, Hx sick sinus syndrome s/p pacemaker placement, HTN, HLD, Valvular Heart Disease s/p AVR, CAD s/p CABG x 1 and PCI, Tobacco use, GERD, PAF, Chronic Diastolic CHF who presents to the [facility] ED on 08/24/22 with history of persistent issues with a reoccurring left perirectal abscess with serial I&D necessity with unclear history of MRSA with onset over the last 48 hours of progressively worsening discomfort to the left perirectal region noted quarter size the day prior however today it is grown to a tennis ball size per his report with no significant drainage with severe pain with no recent fevers, chills, nausea or emesis however given worsening status prompted ED evaluation. Patient reports that he has recently been holding his Coumadin because it had been supratherapeutic and at home prior to presentation noted level 2.8. Patient reports pain 10/10 with any manipulation to the region. Work-up in the ED included T97.6, heart 96, BP 108/66, respiratory rate 14, 99% on room air, CBC with WC 7.1, hemoglobin 10.9, platelet 182 increased neutrophils but no significant shift, lymphopenia, coags with INR 2.2, BMP not marked appearing, blood culture x2 pending per ED, pelvic CT with cellulitis involving the medial posterior aspect of the left gluteal region with evidence of a 2 cm x 2 cm hypodensity suggestive of a localized abscess. In the ED patient ministered Zofran 4 mg IV x1 as well as morphine 4 mg IV x1. In the ED I+D of the abscess performed with notable serosanguinous maternal per ED physician report. Discussed with ED physician and he will start zosyn in the ED. ED discussed case with Dr. Galindo who will evaluate the patient. In the ED hospitalist upon wound evaluation did obtained wound culture, MRSA wound and deep culture. [facility] Medical History Acute respiratory failure with hypoxia Ambulates with cane Anemia due to chronic blood loss Anticoagulant long-term use Arthritis Atherosclerotic heart disease of [place] coronary artery without angina pectoris Atrial fibrillation Back pain Back pain due to injury Cardiology follow-up encounter Chest pain CHF (congestive heart failure) Chronic airway obstruction Chronic anticoagulation Chronic cough Chronic pain syndrome Chronic systolic (congestive) heart failure COPD (chronic obstructive pulmonary disease) Difficulty swallowing Essential hypertension Gastric reflux Heart attack High cholesterol History of echocardiogram History of edema History of GI bleed History of heart attack History of pain when walking History of stress test Hx of fracture of ankle Hx of fracture of ankle Hypertension Injury of back Injury of head and neck Irregular heartbeat Ischemic cardiomyopathy jail current use of anticoagulant 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 On home oxygen therapy Osteoporosis Paroxysmal atrial fibrillation Persistent atrial fibrillation Presence of cardiac pacemaker Pure hypercholesterolemia Restless legs Secondary pulmonary arterial hypertension Shortness of breath on exertion Sick sinus syndrome Smoker Spinal stenosis of lumbar region Stage 3a chronic kidney disease (CKD) Stroke Symptomatic bradycardia TIA (transient ischemic attack) Tobacco use disorder Uncontrolled pain Wears dentures Wears glasses Home Medications albuterol sulfate 90 mcg/actuation breath activated powder inhaler 2 puff inhalation Q4H PRN PRN Wheezing 09/25/15 [History Last Taken 04/06/22] cholecalciferol (vitamin D3) 25 mcg (1,000 unit) tablet 2,000 unit PO DAILY SUPPLEMENT 09/25/15 [History Last Taken 06/11/22 08:00] folic acid 1 mg tablet 1 mg PO QHS SUPPLEMENT 06/24/16 [History Last Taken 06/10/22 22:00] isosorbide mononitrate 30 mg tablet,extended release 24 hr 30 mg PO DAILY BP 11/21/17 [History Last Taken 06/11/22 08:00] pantoprazole 40 mg tablet,delayed release 40 mg PO BID ACID REFLUX 01/02/18 [History Last Taken 06/11/22 08:00] zolpidem 10 mg tablet 10 mg PO QHS SLEEP 05/26/18 [History Last Taken 06/10/22 22:00] pregabalin 75 mg capsule 75 mg PO TID pain 07/28/18 [History Last Taken 06/11/22 08:00] nitroglycerin 0.4 mg sublingual tablet 0.4 mg sublingual Q5M PRN Chest Pain #30 tabs 05/25/21 [Rx Last Taken Unknown] tiotropium 2.5 mcg-olodaterol 2.5 mcg/actuation mist for inhalation (Stiolto Respimat) 1 puff inhalation BID Check with primary doctor 06/18/21 [History Last Taken 06/11/22 08:00] ipratropium 0.5 mg-albuterol 3 mg (2.5 mg base)/3 mL nebulization soln 3 ml inhalation 4X/DAY 11/25/21 [History Last Taken 04/06/22] ferrous sulfate 325 mg (65 mg iron) tablet 325 mg PO BID IRON SUPPLEMENT 04/06/22 [History Last Taken 06/11/22 08:00] furosemide 40 mg tablet 40 mg PO Q OTHER DAY 05/27/22 [History Last Taken 06/10/22 08:00] enoxaparin 60 mg/0.6 mL subcutaneous syringe 60 mg (0.6 mL) subcut Q12H bridging while off warfarin for procedure #6 mL 08/19/22 [Rx Last Taken Unknown] amoxicillin 875 mg-potassium clavulanate 125 mg tablet 1 tab PO BID ANTIBIOTIC 08/24/22 [History Last Taken 08/23/22] buprenorphine 15 mcg/hour weekly transdermal patch 15 mcg transdermal FULLER PAIN 08/24/22 [History Last Taken 08/15/22] warfarin 5 mg tablet 5 mg PO DAILY BLOOD THINNER 08/24/22 [History Last Taken 08/22/22] Allergy/AdvReac Type Severity Reaction Status Date / Time No Known Allergies Allergy Verified 08/24/22 10:09 Family History Son , age 44 from [place] CAD (coronary artery disease) Myocardial infarction Sudden cardiac Brother CAD (coronary artery disease) Pt states all nine of his siblings have heart problems Sister CAD (coronary artery disease) Patient states all nine of his siblings have heart problems Surgical History Cardiac pacemaker in situ H/O cardiac catheterization History of coronary artery stent placement (~06/28/11) History of esophagogastroduodenoscopy (EGD) (~10/2021) History of left heart catheterization History of lumbar fusion 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) Status post cardiac surgery Social History (Updated 08/24/22 @ 17:[address] Chichi Tejada MD) household members: family Smoking Status: Current every day smoker tobacco type: cigarettes Smoking packs per day: 1 Smoking cigarettes per day: 20.0 alcohol intake: never substance use type: does not use caffeine: No ROS ROS Narrative Admission Review of Systems: CONSTITUTIONAL: No weight loss, fever, chills, + weakness or fatigue. HEENT: Eyes: No visual loss, blurred vision, double vision or yellow sclerae. Ears, Nose, Throat: No hearing loss, sneezing, congestion, runny nose or sore throat. SKIN: + Left lower gluteal region with an area of erythema and induration status post I&D with no purulent discharge at this time but notable clot and active blood on the dressing removed following ED I&D, recurrent. CARDIOVASCULAR: No chest pain, chest pressure or chest discomfort, palpitations, edema, orthopnea, syncopal events. RESPIRATORY: No shortness of breath, cough or sputum, wheezing, hemoptysis. GASTROINTESTINAL: + anorexia, nausea, No vomiting, diarrhea, abdominal pain, melena, BRBPR, rectal see skin. GENITOURINARY: No dysuria, frequency, urgency or retention. NEUROLOGICAL: No headache, dizziness, syncope, paralysis, ataxia, numbness or tingling in the extremities, focal weakness, change in bowel or bladder control, seizure. MUSCULOSKELETAL: + muscle, back pain, joint pain or stiffness. HEMATOLOGIC: + anemia, bleeding or bruising. LYMPHATICS: No enlarged nodes. No history of splenectomy. PSYCHIATRIC: No history of depression or anxiety. ENDOCRINOLOGIC: No reports of sweating, cold or heat intolerance. No polyuria or polydipsia. ALLERGIES: No history of asthma, hives, eczema or rhinitis. Vital Signs Vital Signs Vital Signs: 08/24/22 10:06 Temperature 97.6 F L Temperature Source Temporal Pulse Rate 96 Respiratory Rate 14 Blood Pressure 108/66 Blood Pressure Mean 80 Pulse Ox 99 Oxygen Delivery Method Room Air Weight Weight: 159 lb Body Mass Index (BMI) 22.8 Physical Exam Narrative Physical Examination: General: Awake, alert, oriented x 3 and cooperative, laying in the ED bed, fatigued, with evaluation significant 10 out of 10 pain. Skin: Normal color, normal turgor, no icterus, no cyanosis except for significant left lower perirectal/gluteal indurated region, erythematous, status post I&D with a small opening with no significant purulent drainage able to be expressed, extremely tender to palpation, 10 out of 10, notable blood actively on the previous dressing from the ED I&D as well as large clots, wound cultures obtained and following pressure held with subsided bleeding. HEENT: AT/NC, EOMI, PERRLA, dry MM, no carotid bruits or JVD noted. Lungs: Diminished, greater bases, proper effort no rales, ronchi or wheezing. Heart: Currently regular/status post pacemaker; no gallop, rub audible, + notable valve click. Abdomen: Soft, NTTP, ND, distant hyperactive BS, no HSM. Extremities: No cyanosis, clubbing, or edema. Neurological: Patient awake, alert, oriented as noted, cognitive function intact; pupils equally reactive to light and accommodation, cranial nerves II-XII grossly normal, moving all 4 extremities, no focal deficits, strength severely decreased secondary to acute presentation in pain Psychiatric: Affect appears uncomfortable, no acute evidence of depressive or anxiety feelings. Results Lab / Micro Data Result Diagrams: 08/24/22 13:22 08/24/22 13:22 Labs: Laboratory Results - last 24 hr 08/24/22 13:22: WBC 7.1, RBC 3.85 L, Hgb 10.9 L, Hct 35.9 L, MCV 93.2, MCH 28.3, MCHC 30.4 L, RDW Std Deviation 55.4 H, RDW Coeff of [place]aly[place] 16.1 H, Plt Count 182, MPV 10.7, Immature Gran % (Auto) 0.600, Neut % (Auto) 80.7 H, Lymph % (Auto) 9.5 L, [place] % (Auto) 7.2, Eos % (Auto) 1.4, Baso % (Auto) 0.6, Absolute Neuts (auto) 5.7, Absolute Lymphs (auto) 0.67 L, Nucleated RBC % 0 08/24/22 13:22: Sodium 142, Potassium 4.5, Chloride 107, Carbon Dioxide 30.0, Anion Gap 5, BUN 19 H, Creatinine 1.27, Estim Creat Clear Calc 44.17, Est GFR (MDRD) Af Amer 69, Est GFR (MDRD) Non-Af 57 L, BUN/Creatinine Ratio 15.0, Glucose 106, Calcium 8.4 L 08/24/22 : PT 24.3 H, INR 2.[address] 08/24/22 14:16 IMPRESSION: Cellulitis involving the medial posterior aspect of the left gluteal region with evidence of a 2 cm x 2 cm hypodensity suggestive of a localized abscess. Electronically Signed: Tyler Early MD at 14:52 EST , Assessment & Plan Assessment/Plan (1) Perirectal abscess: PLAN: Plan The patient is an 82 y/o M w/ PMHx: COPD with chronic hypoxic respiratory failure, Chronic anemia/Fe deficiency anemia, Hx sick sinus syndrome s/p pacemaker placement, HTN, HLD, Valvular Heart Disease s/p AVR, CAD s/p CABG x 1 and PCI, Tobacco use, GERD, PAF, Chronic Diastolic CHF who presents to the [facility] ED on 08/24/22 with history of persistent issues with a reoccurring left perirectal abscess with serial I&D necessity with unclear history of MRSA with onset over the last 48 hours of progressively worsening discomfort to the left perirectal region noted quarter size the day prior however today it is grown to a tennis ball size per his report with no significant drainage with severe pain with no recent fevers, chills, nausea or emesis however given worsening status prompted ED evaluation. #1. Acute Left-sided perirectal abscess with associated cellulitis, recurrent w/ concern fistulas: We will admit to medical surgical floor, will continue General surgery consultation initiated per ED with wound care and packing per their discretion s/p recent I+D in the ED, wound RN consulted, request wound culture as well as wound MRSA, initiate and maintain on IV Zosyn therapy strongly encourage follow-up outpatient with surgery to assure complete resolution, sitz bath's and otherwise these types of interventions also per surgery discretion, as needed oral and IV pain regimen with continuation of his chronic baseline pain patch, PRN antiemetic regimen, as noted Coumadin being held given bleeding with heparin drip start to be able to stop more quickly if bleeding increases without bolus, continue INR trending, need INR with coumadin goal 2.5-3 per patient/family report with his mechanical valve. #2. Chronic anemia, iron deficiency anemia: Admission hemoglobin 10.9, prior baseline noted 07/21/2019 310.7 however prior to this baseline primarily 8-9, continue trend, continue iron supplementation. #3. PAF: Status post prior pacemaker placement, INR 2.2, adjustments as noted given bleeding with recent I+D, not on rate or rhythm agent per review of current list. #4. Valvular heart disease: 04/27/2019 echocardiogram with moderately dilated LV, EF 45 to 50%, stage II diastolic dysfunction, moderately dilated RV, mildly enlarged LA, mild TBI, RVSP 36 mmHg, stable appearing and normally functioning AV apparatus. #5. Chronic diastolic CHF: We will continue aspirin, Coumadin with INR trending, Lasix, not on NABIL inhibitor/ARB nor beta-zach therapy nor statin therapy, clarifying. #6. CAD: Status post prior CABG and PCI, will continue aspirin, Coumadin with INR trending is noted, not on NABIL inhibitor/ARB nor beta-zach therapy of note but does have history of significant bradycardia however status post pacemaker placement, also not on statin therapy, clarifying. #7. Hypertension: Continue home regimen including isosorbide, Lasix, PRN hydralazine. #8. Hyperlipidemia: Not on statin therapy, defer to outpatient. #9. Tobacco Abuse: Encouraged cessation, inpatient consultation per RT, NR if desired. #10. Chronic pain syndrome: We will continue patient home buprenorphine transdermal patch, usually placed on Tuesday per report. #11. Chronic COPD with chronic hypoxic respiratory failure: Will maintain on home oxygen supplementation, hold home inhalers then transition in the interim to ATC duonebs, PRN albuterol, HOB, IS parameters. #12. GERD: We will continue patient on PPI. #13. DVT prophylaxis: SCDs, continue INR trending, reportedly had been recently supratherapeutic and patient has been holding it, current presentation with INR 2.2 with reported goal 2.5-3 per patient and family report, given noted active bleeding in the ED will defer lovenox bridge and will instead start heparin drip without bolus at this time with restart coumadin in AM if bleeding subsided and also pending surgery evaluation. #14. CODE status: Patient YONATAN is his daughter who is and living will is he reports not employed. Discussed CODE status at length including difference between FULL code, DNR-CCA and DNR-CC status. Following discussions about the differences in these status, requested DNR-CCA, no intubation. Advanced Care Planning Face to Face Time: 16 minutes. Admission Evaluation Time spent evaluating chart, patient history, patient evaluation, care planning and discussion with specialists: 77 minutes. Charges/Coding Visit Charges Inpatient E&M: 03687 Init Hosp L3 Procedures Hospitalists Procedures: 61860 Advncd Care Plan 30 Min
[2022-08-24] MEDS: HYDROmorphone 0.5 MG/0.5 ML SYRINGE IV (17:30)
[2022-08-24 17:39] VITALS: BP 97/54; PULSE 81; RESP 18; TEMP 36.6; O2SAT 96
[2022-08-24 18:05] VITALS: RESP 18
[2022-08-24 19:06] LABS: Partial Thromboplast Time 48.7 Seconds (24.1-36.2)
[2022-08-24 20:00] VITALS: BP 94/72; PULSE 77; RESP 15; O2SAT 92
[2022-08-24 20:27] LABS: M R Staph aureus DNA By PCR Negative (Negative); Probe Check PASS; Specimen Processing Control PASS; Staph aureus DNA By PCR NEGATIVE (Negative)
[2022-08-24 20:50] VITALS: BMI 21.9
[2022-08-24 20:54] VITALS: BP 118/71; PULSE 76; RESP 16; TEMP 36.8; O2SAT 94
[2022-08-24 21:35] VITALS: PULSE 72; RESP 18; RESP 20; O2SAT 93
[2022-08-24] MEDS: Ipratropium/Albuterol Sulfate 3 ML AMPUL.NEB INHALATION (21:35)
[2022-08-24] MEDS: Pantoprazole Sodium 40 MG Tablet PO (21:54)
[2022-08-24] MEDS: oxyCODONE 5 MG Tablet PO (21:54)
[2022-08-24] MEDS: Acetaminophen 325 MG Tablet 650 MG PO (21:54)
[2022-08-24] MEDS: Pregabalin 75 MG Capsule PO (21:54)
[2022-08-24] MEDS: HEPARIN/D5w 25,000 UNITS 25,000 UNITS/250 ML IV.SOLN. 10 UNITS CONT INF (22:22)
--- NOTE | 2022-08-24 22:26 | NURSING ---
Addendum entered by Gustavo Andrea 08/24/22 22:27: based off this weight. running at 1000u/hr, 10ml/hr Original Note: pts weight upon admission is 69.456kg. heparin nomogram initiated based off this wi
[2022-08-24 23:00] LABS: Partial Thromboplast Time 47.1 Seconds (24.1-36.2)
[2022-08-25] VITALS (10 sets, daily range): BP systolic 104–128; BP diastolic 54–71; PULSE 58–81; RESP 12–18; TEMP 36.4–36.9; O2SAT 92–97
[2022-08-25 04:23] LABS: Absolute Lymphocyte Count 0.62 X10^3/uL (0.83-4.51); Absolute Neutrophil Count 3.2 X10^3/uL (2.0-7.7); Basophil# 0.04 X10^3/uL; Basophil% 0.9 % (0-1); Eosinophil# 0.13 X10^3/uL; Lymphocyte # 0.62 X10^3/ul (0.83-4.51); Lymphocyte % 14.4 % (19-41); Mean Corp Hgb Conc 30.3 g/dL (32-36); Mean Corpuscular Hgb 28.5 pg (27.0-32.0); Mean Platelet Vol. 10.3 fl (6.2-12.0); Monocyte# 0.31 X10^3/uL; Monocyte% 7.2 % (0-10); NRBC Flagged by Analyzer 0 % (0-5); Neutrophil # 3.19 X10^3/uL (2.7-7.7); Neutrophil % 74.3 % (47-70); Platelet Count 153 K/mm3 (150-450); RBC Distribution Width CV 15.9 % (11.6-14.6); RBC Distribution Width SD 54.8 fl (35.1-43.9); Red Blood Count 3.51 M/mm3 (4.6-6.2); White Blood Count 4.3 K/mm3 (4.4-11.0)
[2022-08-25 04:41] LABS: International Normalized Ratio 2.3; Partial Thromboplast Time 140.1 Seconds (24.1-36.2); Prothrombin Time (Protime)PT. 24.8 SECONDS (11.7-14.9)
[2022-08-25] MEDS: Pregabalin 75 MG Capsule PO ×3 (04:47→20:36)
[2022-08-25 04:49] LABS: ALB/GLOB Ratio 0.8 RATIO (0.9-2.4); AST(SGOT) 23 U/L (15-37); Alanine Aminotransfer ALT/SGPT 16 U/L (16-61); Albumin, Serum 2.7 g/dL (3.2-5.0); Alkaline Phosphatase 118 U/L (45-117); Anion Gap 6 (5-15); BUN 20 mg/dL (7-18); BUN/Creat Ratio 13.5 RATIO (10-20); Calcium,Total 8.3 mg/dL (8.5-10.1); Chloride 110 mmol/L (98-107); Creatinine, Serum 1.48 mg/dL (0.70-1.30); EST Glomerular Filtration Rate 48 mL/min (>60); Est Glom Filt Rate - Afr Amer 58 mL/min (>60); Globulin 3.3 g/dL (2.2-4.2); Glucose 125 mg/dL (74-106); Potassium 4.3 mmol/L (3.5-5.1); Sodium Level 144 mmol/L (136-145)
[2022-08-25] MEDS: Ipratropium/Albuterol Sulfate 3 ML AMPUL.NEB INHALATION ×2 (07:00→18:37)
--- NOTE | 2022-08-25 08:26 | WOUNDNOTE ---
wound photo: left inner buttock
[2022-08-25] MEDS: Aspirin E.C. 81 MG Tablet PO (08:56)
[2022-08-25] MEDS: Pantoprazole Sodium 40 MG Tablet PO ×2 (10:34→20:36)
[2022-08-25] MEDS: Isosorbide Mononitrate 30 MG Tablet PO (10:34)
[2022-08-25] MEDS: Ferrous Sulfate 325 MG Tablet PO ×2 (12:30→17:02)
--- NOTE | 2022-08-25 13:24 | PN.HOSP_ITS ---
Reason for Visit Reason for Visit: Diagnoses Rectal abscess (08/24/22) Subjective Subjective Patient seen and examined. Daughter was by her bedside. He had no active complaints. He didnt have any pain at the site of the rectal abscess. He denies fever, chills, cough, chest pain, palpitations, dizziness, nausea, vomiting or diarrhea. Review of systems was otherwise negative. Objective Data Objective Data Vital Signs: Vital Signs Temp Pulse Resp BP Pulse Ox O2 Del Method 97.7 F L 62 12 104/61 96 Room Air 08/25/22 12:56 08/25/22 12:56 08/25/22 12:56 08/25/22 12:56 08/25/22 12:56 08/25/22 12:56 Oxygen Delivery Method Room Air Weight: 153 lb 0.013 oz Body Mass Index (BMI) 21.9 Intake & Output: Intake and Output for Last 24 Hours 08/23/22 08/24/22 08/25/22 23:59 23:59 23:59 Intake Total 50 / 50 863.67 / 863.67 Output Total 500 / 500 Balance 50 / 50 363.67 / 363.67 Medical Nutrition Assessment Dietitian: Malnutrition Criteria Met Start: 08/25/22 11:18 Freq: Status: Active Protocol: Document 08/25/22 11:18 AG (Rec: 08/25/22 11:18 AG [id number]) Nutrition Malnutrition Evidence of Malnutrition Exists Yes Malnutrition (severe): Chronic Evidenced By Suboptimal Energy Intake ( Severe),Weight Loss (Severe) Clinical Problem Chronic Disease or Condition Related Malnutrition Etiology severe, chronic malnutrition related to inadequate oral intake d/t early satiety, decreased appetite Signs/Symptoms as evidenced by estimated PO intake meeting <75% of estimated energy needs > 1 month, unintentional wt loss of 20.8#/12% x 2 months Status Active Problem Recommendation Dietitian Recommendations/Changes will liberalize diet to regular given evidence of malnutrition; milk w/ meals- pt not agreeable to Ensure or other ONS at this time. Lab / Micro Data Result Diagrams: 08/25/22 04:17 08/25/22 04:17 Labs: Laboratory Results - last 24 hr 08/24/22 13:22: WBC 7.1, RBC 3.85 L, Hgb 10.9 L, Hct 35.9 L, MCV 93.2, MCH 28.3, MCHC 30.4 L, RDW Std Deviation 55.4 H, RDW Coeff of Kaly[place] 16.1 H, Plt Count 182, MPV 10.7, Immature Gran % (Auto) 0.600, Neut % (Auto) 80.7 H, Lymph % (Auto) 9.5 L, [place] % (Auto) 7.2, Eos % (Auto) 1.4, Baso % (Auto) 0.6, Absolute Neuts (auto) 5.7, Absolute Lymphs (auto) 0.67 L, Nucleated RBC % 0 08/24/22 13:22: Sodium 142, Potassium 4.5, Chloride 107, Carbon Dioxide 30.0, Anion Gap 5, BUN 19 H, Creatinine 1.27, Estim Creat Clear Calc 44.17, Est GFR (MDRD) Af Amer 69, Est GFR (MDRD) Non-Af 57 L, BUN/Creatinine Ratio 15.0, Glucose 106, Calcium 8.4 L 08/24/22 17:30: S.aureus Protein A PCR NEGATIVE, MRSA (PCR) Negative 08/24/22 22:17: APTT 47.1 H 08/24/22 : PT 24.3 H, INR 2.2 08/24/22 : APTT 48.7 H 08/25/22 04:17: WBC 4.3 L, RBC 3.51 L, Hgb 10.0 L, Hct 33.0 L, MCV 94.0, MCH 28.5, MCHC 30.3 L, RDW Std Deviation 54.8 H, RDW Coeff of Kaly[place] 15.9 H, Plt Count 153, MPV 10.3, Immature Gran % (Auto) 0.200, Neut % (Auto) 74.3 H, Lymph % (Auto) 14.4 L, [place] % (Auto) 7.2, Eos % (Auto) 3.0, Baso % (Auto) 0.9, Absolute Neuts (auto) 3.2, Absolute Lymphs (auto) 0.62 L, Nucleated RBC % 0 08/25/22 04:17: PT 24.8 H, INR 2.3 08/25/22 04:17: Sodium 144, Potassium 4.3, Chloride 110 H, Carbon Dioxide 28.0, Anion Gap 6, BUN 20 H, Creatinine 1.48 H, Estim Creat Clear Calc 36.50, Est GFR (MDRD) Af Amer 58 L, Est GFR (MDRD) Non-Af 48 L, BUN/Creatinine Ratio 13.5, Glucose 125 H, Calcium 8.3 L, Total Bilirubin 0.60, AST 23, ALT 16, Alkaline Phosphatase 118 H, Total Protein 6.0 L, Albumin 2.7 L, Globulin 3.3, Albumin/Globulin Ratio 0.8 L 08/25/22 04:17: APTT 140.1 H* Micro: Microbiology 08/24/22 17:30 Wound Abcess - Buttock Gram Stain - Final 08/24/22 17:30 Wound Abcess - Buttock Wound Culture - Preliminary No growth-Final to follow Radiography Diagnostic Testing: Radiology Impression Pelvis CT 08/24/22 14:16 IMPRESSION: Cellulitis involving the medial posterior aspect of the left gluteal region with evidence of a 2 cm x 2 cm hypodensity suggestive of a localized abscess. Electronically Signed: Tyler Early MD at 14:52 EST , Physical Exam Const alert, oriented x3 and no apparent distress HEENT head/scalp atraumatic, moist oral mucous membranes and oropharynx normal Head and Scalp: normocephalic Mouth: oral and palatal mucosa normal Eyes PERRL, EOMs intact bilaterally and conjunctivae normal Neck no lymphadenopathy and supple Resp normal respiratory effort, no retractions, no use of accessory muscles and clear to auscultation bilaterally Cardio regular rate, regular rhythm, S1 normal heart sound, S2 normal heart sound and no murmurs GI normal to inspection, nondistended, normoactive bowel sounds, soft to palpation, non-tender and non-distended Extremity normal to inspection, full ROM and no clubbing, cyanosis or edema Skin Skin Narrative: erythema over left inner buttock, with intact dressing over abscess site on left lower inner gluteal region. Neuro oriented x3, CN's II-XII intact bilaterally, moves all extremities and no focal motor deficits Sensorium / Orientation: awake and alert Motor Exam: strength 5/5 throughout Psych affect normal Assessment & Plan Assessment/Plan (1) Perirectal abscess: PLAN: Plan #Left sundar-rectal abscess * imaging done showed cellulitis and 2cm x 2cm localised abscess of the left gluteal region. * had I&D done in the ED, and had intact dressing in place * on IV zosyn. * wound culture pending * general surgery on board. * #Paroxysmal afib * on coumadin. INR is therapeutic. * s/p pacemaker placement * #Aortic valve stenosis * s/p aortic valve replacement. Stable * #HFpEF: not in exacerbation. on lasix. #CAD s/p CABG and PCI * on aspirin. * #Hypertension: on imdur and lasix. IV hydralazine prn # Hyperlipidemia: not on statin. Follow up with PCP on outpatient basis. #Chronic pain syndrome: o buprenorhine transdermal patch #COPD: not in exacerbation. Breathing treatment with bronchodilators. DVT prophylaxis: on coumadin. Charges/Coding Visit Charges Inpatient E&M: 10997 Subs Hosp L2
[2022-08-25 14:03] LABS: Partial Thromboplast Time 100.1 Seconds (24.1-36.2)
--- NOTE | 2022-08-25 16:20 | CASEMGMT ---
SURY MUNOZ PULLEY WORKER CM to room to meet with patient for initial transition planning/care coordination assessment. SURY MUNOZ introduced self and role at [facility].? Pt voices understanding and consents to assessment at this time.? Pt sitting on edge of bed in no distress at this time.? Pt is A/O at this time and answers all questions appropriately.?? Care providers, pharmacy, and demographics verified/updated at this time. PCP: Dr Pritchard. Pt goes to [place] in [place] Q months. Specialists: Dr Bearden-cardiology, Dr Rapp-pain mgmt Preferred Pharmacy: [facility] Insurance: [employer] Prescription Benefit:? Yes Living Will/HPOA:? Pt has HCPOA, who is his dtr, Emily. He thinks he has done LW also. LNOK: DtrEmily Living Arrangements: Lives alone in one-story home w/ramp entrance. Indep w/ADL's. Dtr, Emily, manages his medications and sets up weekly pill containers for him. Emily takes pt grocery shopping. Transportation: DtrEmily DME: ?States has the following DME:?Pt states he uses home O2 @ 2l/m @ [facility] only. Call placed to Zulma @ [employer]. She states current orders are for 2 l/m w/exertion only. Pt states he has a cane. He is getting an electric scooter from the [place] and it is supposed to arrive 08/31. Pt also has available, but does not use: walker, rollator, W/C Pt states no need for further DME at this time.? HHC/SNF: No hx of either. Pt wishes to return home and states has no concerns with going home at time of discharge.? CM to follow for any discharge planning/needs.? Pt voices no concerns/needs at this time.? Uncertain at this time what wound care/dsg changes may be needed @ discharge. Pt states he is not sure if his dtr would feel comfortable learning/doing this for pt. PLAN: ?Home. CM to follow for any wound care/dsg change needs @ d/c. Roxana RASHID RN, CM
[2022-08-25] MEDS: Acetaminophen 325 MG Tablet 650 MG PO (20:42)
[2022-08-25] MEDS: oxyCODONE 5 MG Tablet PO (20:43)
[2022-08-25 21:20] LABS: Partial Thromboplast Time 77.1 Seconds (24.1-36.2)
[2022-08-26] MEDS: oxyCODONE 5 MG Tablet PO (00:34)
[2022-08-26] MEDS: Acetaminophen 325 MG Tablet 650 MG PO (00:34)
[2022-08-26 00:36] VITALS: BP 115/60; PULSE 59; RESP 18; TEMP 36.8; O2SAT 94
[2022-08-26] MEDS: Zolpidem Tartrate 5 MG Tablet PO (00:43)
[2022-08-26 03:42] LABS: Absolute Lymphocyte Count 0.57 X10^3/uL (0.83-4.51); Absolute Neutrophil Count 1.8 X10^3/uL (2.0-7.7); Basophil# 0.02 X10^3/uL; Basophil% 0.7 % (0-1); Eosinophil# 0.11 X10^3/uL; Eosinophils% 3.9 % (0-5); Hematocrit 31.6 % (40-54); Hemoglobin 9.4 g/dL (13.0-16.5); Lymphocyte # 0.57 X10^3/ul (0.83-4.51); Lymphocyte % 20.3 % (19-41); Mean Corp Hgb Conc 29.7 g/dL (32-36); Mean Corpuscular Hgb 27.8 pg (27.0-32.0); Mean Corpuscular Volume 93.5 fL (80-94); Mean Platelet Vol. 10.6 fl (6.2-12.0); Monocyte# 0.29 X10^3/uL; Monocyte% 10.3 % (0-10); NRBC Flagged by Analyzer 0 % (0-5); Neutrophil % 64.1 % (47-70); POSITIVE DIFFERENTIAL YES; Platelet Count 133 K/mm3 (150-450); RBC Distribution Width CV 15.8 % (11.6-14.6); RBC Distribution Width SD 54.4 fl (35.1-43.9); Red Blood Count 3.38 M/mm3 (4.6-6.2); White Blood Count 2.8 K/mm3 (4.4-11.0)
[2022-08-26 03:45] LABS: Differential Indicated SCAN CRITERIA MET
[2022-08-26 03:52] LABS: Anisocytosis 1+; Platelet Estimate SLT DEC (ADEQ)
[2022-08-26 03:55] LABS: Partial Thromboplast Time 68.9 Seconds (24.1-36.2)
[2022-08-26 04:08] LABS: Anion Gap 5 (5-15); BUN 23 mg/dL (7-18); BUN/Creat Ratio 16.2 RATIO (10-20); Calcium,Total 8.4 mg/dL (8.5-10.1); Chloride 111 mmol/L (98-107); Creatinine, Serum 1.42 mg/dL (0.70-1.30); EST Glomerular Filtration Rate 50 mL/min (>60); Est Glom Filt Rate - Afr Amer 61 mL/min (>60); Estimated Creatinine Clearance 38.01 ml/min; Glucose 117 mg/dL (74-106); Potassium 4.6 mmol/L (3.5-5.1); Sodium Level 144 mmol/L (136-145)
[2022-08-26 05:30] VITALS: BP 133/65; PULSE 62; RESP 18; TEMP 36.6; O2SAT 97
[2022-08-26] MEDS: Pregabalin 75 MG Capsule PO (05:35)
--- NOTE | 2022-08-26 07:18 | EX.PCM.CON.S ---
Assessment & Plan Assessment/Plan (1) Perirectal abscess: PLAN: Patient has buttock abscess. It is nowhere near the perirectal or perianal area. Patient had drainage of this in the emergency room the cellulitis seems to be improving on antibiotics. Patient may go home on oral antibiotics and follow-up as needed. Darrell Galindo MD Pager: [facility] [address] [place] [address], [address] [place] [address] Office: HPI Consult Data Date of Consult: 08/26/22 HPI Narrative HPI Narrative: REBECCA ARRIOLA, is a 82 M who presents with left buttock abscess patient says has been there for a few days and it is growing. No drainage. Patient had incision and drainage in the emergency room. Patient reports his pain is improved since drainage. [facility] Medical History (Updated 08/24/22 @ 21:02 by Kathryn Raines) Acute respiratory failure with hypoxia Ambulates with cane Anemia due to chronic blood loss Anticoagulant long-term use Arthritis Asthma Atherosclerotic heart disease of [place] coronary artery without angina pectoris Atrial fibrillation Back pain Back pain due to injury Cardiology follow-up encounter Chest pain CHF (congestive heart failure) Chronic airway obstruction Chronic anticoagulation Chronic cough Chronic pain Chronic pain syndrome Chronic systolic (congestive) heart failure COPD (chronic obstructive pulmonary disease) COPD (chronic obstructive pulmonary disease) Difficulty swallowing Essential hypertension Gastric reflux Heart attack High cholesterol History of echocardiogram History of edema History of GI bleed History of heart attack History of pain when walking History of stress test Hx of fracture of ankle Hx of fracture of ankle Hypertension Injury of back Injury of head and neck Irregular heartbeat 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 On home oxygen therapy Osteoporosis Paroxysmal atrial fibrillation Persistent atrial fibrillation Presence of cardiac pacemaker Pure hypercholesterolemia Restless legs Secondary pulmonary arterial hypertension Shortness of breath on exertion Sick sinus syndrome Smoker Spinal stenosis of lumbar region Stage 3a chronic kidney disease (CKD) Stroke Symptomatic bradycardia TIA (transient ischemic attack) Tobacco use disorder Uncontrolled pain Wears dentures Wears glasses Home Medications albuterol sulfate 90 mcg/actuation breath activated powder inhaler 2 puff inhalation Q4H PRN Shortness Of Breath 09/25/15 [History Last Taken 08/23/22] cholecalciferol (vitamin D3) 25 mcg (1,000 unit) tablet 1,000 unit PO DAILY SUPPLEMENT 09/25/15 [History Last Taken 08/24/22] folic acid 1 mg tablet 1 mg PO QHS SUPPLEMENT 06/24/16 [History Last Taken 08/23/22] isosorbide mononitrate 30 mg tablet,extended release 24 hr 30 mg PO DAILY BLOOD PRESSURE 11/21/17 [History Last Taken 08/24/22] pantoprazole 40 mg tablet,delayed release 40 mg PO BID ACID REFLUX 01/02/18 [History Last Taken 08/24/22] zolpidem 10 mg tablet 10 mg PO QHS INSOMNIA 05/26/18 [History Last Taken 08/23/22] pregabalin 75 mg capsule 75 mg PO TID PAIN 07/28/18 [History Last Taken 08/24/22] nitroglycerin 0.4 mg sublingual tablet 0.4 mg sublingual Q5M PRN Chest Pain #30 tabs 05/25/21 [Rx Last Taken Unknown] tiotropium 2.5 mcg-olodaterol 2.5 mcg/actuation mist for inhalation (Stiolto Respimat) 1 puff inhalation BID ASTHMA 06/18/21 [History Last Taken 08/24/22] ipratropium 0.5 mg-albuterol 3 mg (2.5 mg base)/3 mL nebulization soln 3 ml inhalation 4X/DAY SHORTNESS OF BREATH 11/25/21 [History Last Taken 04/06/22] ferrous sulfate 325 mg (65 mg iron) tablet 325 mg PO BID IRON SUPPLEMENT 04/06/22 [History Last Taken 08/24/22] furosemide 40 mg tablet 40 mg PO QODAY FLUID 05/27/22 [History Last Taken 08/24/22] enoxaparin 60 mg/0.6 mL subcutaneous syringe 60 mg (0.6 mL) subcut Q12H bridging while off warfarin for procedure #6 mL 08/19/22 [Rx Last Taken Unknown] amoxicillin 875 mg-potassium clavulanate 125 mg tablet 1 tab PO BID ANTIBIOTIC 08/24/22 [History Last Taken 08/23/22] buprenorphine 15 mcg/hour weekly transdermal patch 15 mcg transdermal FULLER PAIN 08/24/22 [History Last Taken 08/15/22] warfarin 5 mg tablet 5 mg PO DAILY BLOOD THINNER 08/24/22 [History Last Taken 08/22/22] Allergy/AdvReac Type Severity Reaction Status Date / Time No Known Allergies Allergy Verified 08/24/22 10:09 Family History Son , age 44 from [place] CAD (coronary artery disease) Myocardial infarction Sudden cardiac Brother CAD (coronary artery disease) Pt states all nine of his siblings have heart problems Sister CAD (coronary artery disease) Patient states all nine of his siblings have heart problems Surgical History Cardiac pacemaker in situ H/O cardiac catheterization History of coronary artery stent placement (~06/28/11) History of esophagogastroduodenoscopy (EGD) (~10/2021) History of left heart catheterization History of lumbar fusion 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) Status post cardiac surgery Social History (Updated 08/24/22 @ 17:[address] Chichi Tejada MD) household members: family Smoking Status: Current every day smoker tobacco type: cigarettes Smoking packs per day: 1 Smoking cigarettes per day: 20.0 alcohol intake: never substance use type: does not use caffeine: No ROS Constitutional Constitutional: Denies anorexia, chills, fatigue or fever(s) Eyes Eyes: Denies blurry vision Cardiovascular Cardiovascular: Denies chest pain Respiratory/Chest Respiratory/Chest: Denies cough or dyspnea Gastrointestinal Gastrointestinal: Denies abdominal pain Musculoskeletal Musculoskeletal: Denies abnormal gait or muscle weakness Integumentary Integumentary: Denies jaundice Neurologic Neurologic: Denies abnormal gait Endocrine Endocrinology: Denies flushing Hematologic/Lymphatic Hematologic/Lymphatic: Denies easy bleeding Physical Exam Const alert and oriented x3 HEENT normocephalic Eyes PERRL Chest inspection of chest normal Cardio Rate: regular rate Rhythm: regular rhythm GI GI Narrative: Patient has a buttock abscess with surrounding cellulitis that seems adequately drained with no further fluctuance or purulent drainage Medical Records Data Medical Nutrition Assessment Dietitian: Malnutrition Criteria Met Start: 08/25/22 11:18 Freq: Status: Active Protocol: Document 08/25/22 11:18 AG (Rec: 02/08/23 11:18 AG [id number]) Nutrition Malnutrition Evidence of Malnutrition Exists Yes Malnutrition (severe): Chronic Evidenced By Suboptimal Energy Intake ( Severe),Weight Loss (Severe) Clinical Problem Chronic Disease or Condition Related Malnutrition Etiology severe, chronic malnutrition related to inadequate oral intake d/t early satiety, decreased appetite Signs/Symptoms as evidenced by estimated PO intake meeting <75% of estimated energy needs > 1 month, unintentional wt loss of 20.8#/12% x 2 months Status Active Problem Recommendation Dietitian Recommendations/Changes will liberalize diet to regular given evidence of malnutrition; milk w/ meals- pt not agreeable to Ensure or other ONS at this time. Lab / Micro Data Result Diagrams: 08/26/22 03:36 08/26/22 03:36 Labs: Laboratory Results - last 24 hr 08/25/22 12:55: APTT 100.1 H* 08/25/22 21:00: APTT 77.1 H 08/26/22 03:36: WBC 2.8 L, RBC 3.38 L, Hgb 9.4 L, Hct 31.6 L, MCV 93.5, MCH 27.8, MCHC 29.7 L, RDW Std Deviation 54.4 H, RDW Coeff of [place]aly[place] 15.8 H, Plt Count 133 L, MPV 10.6, Immature Gran % (Auto) 0.700, Neut % (Auto) 64.1, Lymph % (Auto) 20.3, [place] % (Auto) 10.3 H, Eos % (Auto) 3.9, Baso % (Auto) 0.7, Absolute Neuts (auto) 1.8 L, Absolute Lymphs (auto) 0.57 L, Nucleated RBC % 0, Diff Path Review May foll, Platelet Estimate SLT DEC, Anisocytosis 1+ 08/26/22 03:36: Sodium 144, Potassium 4.6, Chloride 111 H, Carbon Dioxide 28.0, Anion Gap 5, BUN 23 H, Creatinine 1.42 H, Estim Creat Clear Calc 38.01, Est GFR (MDRD) Af Amer 61, Est GFR (MDRD) Non-Af 50 L, BUN/Creatinine Ratio 16.2, Glucose 117 H, Calcium 8.4 L 08/26/22 03:36: APTT 68.9 H Micro: Microbiology 08/24/22 17:30 Wound Abcess - Buttock Gram Stain - Final 08/24/22 17:30 Wound Abcess - Buttock Wound Culture - Preliminary No growth-Final to follow
[2022-08-26 07:29] VITALS: PULSE 63; RESP 17; O2SAT 93
[2022-08-26] MEDS: Ipratropium/Albuterol Sulfate 3 ML AMPUL.NEB INHALATION (07:29)
[2022-08-26 07:55] VITALS: BP 130/67; PULSE 64; RESP 18; TEMP 36.5; O2SAT 97
[2022-08-26] MEDS: Aspirin E.C. 81 MG Tablet PO (07:58)
[2022-08-26] MEDS: Pantoprazole Sodium 40 MG Tablet PO (10:22)
[2022-08-26] MEDS: Furosemide 40 MG Tablet PO (10:23)
[2022-08-26] MEDS: Isosorbide Mononitrate 30 MG Tablet PO (10:23)
--- NOTE | 2022-08-26 10:46 | DS.PCM_ITS ---
Providers Date of Admission: 08/24/22 Date of Discharge: 08/26/22 Primary Care Physician: Dr. 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 * had I&D done in the ED, and had intact dressing in place * on IV zosyn. * wound culture pending * general surgery on board. * #Paroxysmal afib * on coumadin. INR is therapeutic. * s/p pacemaker placement * #Aortic valve stenosis * s/p aortic valve replacement. Stable * #HFpEF: not in exacerbation. on lasix. #CAD s/p CABG and PCI * on aspirin. * #Hypertension: on imdur and lasix. IV hydralazine prn # Hyperlipidemia: not on statin. Follow up with PCP on outpatient basis. #Chronic pain syndrome: o buprenorhine transdermal patch #COPD: not in exacerbation. Breathing treatment with bronchodilators. DVT prophylaxis: on coumadin. Medications at Discharge Home Medications albuterol sulfate 90 mcg/actuation breath activated powder inhaler 2 puff inhalation Q4H PRN Shortness Of Breath 09/25/15 cholecalciferol (vitamin D3) 25 mcg (1,000 unit) tablet 1,000 unit PO DAILY SUPPLEMENT 09/25/15 folic acid 1 mg tablet 1 mg PO QHS SUPPLEMENT 06/24/16 isosorbide mononitrate 30 mg tablet,extended release 24 hr 30 mg PO DAILY BLOOD PRESSURE 11/21/17 pantoprazole 40 mg tablet,delayed release 40 mg PO BID ACID REFLUX 01/02/18 zolpidem 10 mg tablet 10 mg PO QHS INSOMNIA 05/26/18 pregabalin 75 mg capsule 75 mg PO TID PAIN 07/28/18 nitroglycerin 0.4 mg sublingual tablet 0.4 mg sublingual Q5M PRN Chest Pain #30 tabs 05/25/21 tiotropium 2.5 mcg-olodaterol 2.5 mcg/actuation mist for inhalation (Stiolto Respimat) 1 puff inhalation BID ASTHMA 06/18/21 ipratropium 0.5 mg-albuterol 3 mg (2.5 mg base)/3 mL nebulization soln 3 ml inhalation 4X/DAY SHORTNESS OF BREATH 11/25/21 ferrous sulfate 325 mg (65 mg iron) tablet 325 mg PO BID IRON SUPPLEMENT 2 furosemide 40 mg tablet 40 mg PO QODAY FLUID 05/27/22 buprenorphine 15 mcg/hour weekly transdermal patch 15 mcg transdermal FULLER PAIN 08/24/22 warfarin 5 mg tablet 5 mg PO DAILY BLOOD THINNER 08/24/22 amoxicillin 875 mg-potassium clavulanate 125 mg tablet 1 tab PO BID #20 tabs 08/26/22 Hospital Course Operations None Procedures - (incision and drainage of left buttock abscess) Summary of Care Provided Minutes Spent on Discharge: 45 Hospital Course: Patient is an 82-year-old male with extensive past medical history as outlined was admitted through the ED on 08/24/2022 with a complaint of left buttock pain. He had had a recurring abscess in the left buttock area which was initially thought to be perirectal abscess. He had had repeated incision and drainage for this. Subsequently started having symptoms of this swelling and pain over the same area for 48 hours prior to admission. He had gradually increased in size. On admission, CT pelvis done showed cellulitis of the medial posterior aspect of the left gluteal region with evidence of a 2 x 2 cm hypodensity suggestive of a localized abscess. Patient had I&D done in the ED with discharge of significant serosanguineous material. He was started on IV antibiotics and wound cultures were ordered. Wound cultures were negative for any evidence of bacteria. General surgery reviewed patient and thought the abscess was not perirectal but was small of gluteal abscess. Patient felt better and pain did improve. He remained stable and was discharged on 08/26/2022 on p.o. Augmentin for 10-day course. He is follow-up with his primary care doctor and follow-up with general surgery. Patient seen and examined prior to discharge. He has no active complaints and had an uneventful night. Review of systems otherwise negative. Labs and vitals reviewed. Home medication reviewed and reconciled. Physical Exam Const alert, oriented x3 and no apparent distress General Appearance: cooperative and comfortable Orientation / Consciousness: awake Exam Limitations: no limitations HEENT normocephalic, head/scalp atraumatic, hearing grossly normal bilaterally, moist oral mucous membranes and oropharynx normal Mouth: oral and palatal mucosa normal Eyes PERRL, EOMs intact bilaterally and conjunctivae normal Neck no lymphadenopathy and supple Resp normal respiratory effort, no retractions, no use of accessory muscles and clear to auscultation bilaterally Cardio regular rate, regular rhythm, S1 normal heart sound, S2 normal heart sound and no murmurs GI normal to inspection, nondistended, normoactive bowel sounds, soft to palpation, non-tender and non-distended Extremity normal to inspection, full ROM and no clubbing, cyanosis or edema Skin Skin Narrative: erythema over left inner buttock is improving, with intact dressing over abscess site on left lower inner gluteal region. Neuro oriented x3, CN's II-XII intact bilaterally, moves all extremities and no focal motor deficits Sensorium / Orientation: awake and alert Motor Exam: strength 5/5 throughout Psych affect normal Medical Records Data Medical Nutrition Assessment Dietitian: Malnutrition Criteria Met Start: 08/25/22 11:18 Freq: Status: Active Protocol: Document 08/25/22 11:18 (Rec: 08/25/22 11:18 [id number]) Nutrition Malnutrition Evidence of Malnutrition Exists Yes Malnutrition (severe): Chronic Evidenced By Suboptimal Energy Intake ( Severe),Weight Loss (Severe) Clinical Problem Chronic Disease or Condition Related Malnutrition Etiology severe, chronic malnutrition related to inadequate oral intake d/t early satiety, decreased appetite Signs/Symptoms as evidenced by estimated PO intake meeting <75% of estimated energy needs > 1 month, unintentional wt loss of 20.8#/12% x 2 months Status Active Problem Recommendation Dietitian Recommendations/Changes will liberalize diet to regular given evidence of malnutrition; milk w/ meals- pt not agreeable to Ensure or other ONS at this time. Weight / BMI Weight Weight: 156 lb Body Mass Index (BMI) 21.9 ABG / Lab / Microbiology Data Result Diagrams: 08/26/22 03:36 08/26/22 03:36 Laboratory: Laboratory Results - last 24 hr 08/25/22 12:55: APTT 100.1 H* 08/25/22 21:00: APTT 77.1 H 08/26/22 03:36: WBC 2.8 L, RBC 3.38 L, Hgb 9.4 L, Hct 31.6 L, MCV 93.5, MCH 27.8, MCHC 29.7 L, RDW Std Deviation 54.4 H, RDW Coeff of [place]aly[place] 15.8 H, Plt Count 133 L, MPV 10.6, Immature Gran % (Auto) 0.700, Neut % (Auto) 64.1, Lymph % (Auto) 20.3, [place] % (Auto) 10.3 H, Eos % (Auto) 3.9, Baso % (Auto) 0.7, Absolute Neuts (auto) 1.8 L, Absolute Lymphs (auto) 0.57 L, Nucleated RBC % 0, Diff Path Review November, Platelet Estimate SLT DEC, Anisocytosis 1+ 08/26/22 03:36: Sodium 144, Potassium 4.6, Chloride 111 H, Carbon Dioxide 28.0, Anion Gap 5, BUN 23 H, Creatinine 1.42 H, Estim Creat Clear Calc 38.01, Est GFR (MDRD) Af Amer 61, Est GFR (MDRD) Non-Af 50 L, BUN/Creatinine Ratio 16.2, Glucose 117 H, Calcium 8.4 L 08/26/22 03:36: APTT 68.9 H Microbiology: Microbiology 08/24/22 13:22 Blood Culture (Wb) - Anticubital Right Blood Culture - Preliminary No growth in 48 hours. 08/24/22 17:30 Wound Abcess - Buttock Gram Stain - Final 08/24/22 17:30 Wound Abcess - Buttock Wound Culture - Preliminary No growth-Final to follow D/C Instructions Discharge Diet: Low fat / Low cholesterol Discharge Activity: Return to Normal Activity Weight Bearing Status: Weight bearing as tolerated Call your doctor if your incision/area has: Continuous Slow Oozing, Sudden Increased Bleeding, Increased Pain/ Swelling, Increased Redness, Foul Smelling Discharge and Swelling at the incision site Call your doctor if you observe: Fever of 101 or Higher, Shortness of breath, Sw elling in the ankles, Increased palpitations (irregular heartbeat) and Uncontrolled pain Meaningful Use Info Meaningful Use Diagnoses (Choose all that apply): None applicable Discharge Plan Admission Admit Date/Time: 08/24/22 17:04 Primary Reason for Your Visit: buttock abscess Attending Provider: Dania Sellers Primary Care Provider: Guillermo Pritchard Consulting Providers: Darrell Galindo ; Chichi Tejada Instructions Patient Instructions: Abscess Drainage Discharge Orders/Prescriptions Prescriptions: New amoxicillin-pot clavulanate 875-125 mg tablet 1 tab PO BID Qty: 20 0RF Continued isosorbide mononitrate 30 mg tablet extended release 24 hr 30 mg PO DAILY nitroglycerin 0.4 mg tablet, sublingual 0.4 mg SUBLINGUAL Q5M PRN (Reason: Chest Pain) Qty: 30 0RF ipratropium-albuterol 0.5 mg-3 mg(2.5 mg base)/3 mL solution for nebulization 3 ml INHALATION 4X/DAY furosemide 40 mg tablet 40 mg PO QODAY pantoprazole 40 mg tablet,delayed release (DR/EC) 40 mg PO BID cholecalciferol (vitamin D3) 1,000 UNIT tablet 1,000 unit PO DAILY albuterol sulfate 90 MCG aerosol powdr breath activated 2 puff INHALATION Q4H PRN (Reason: Shortness Of Breath) Label Comments: folic acid 1 MG tablet 1 mg PO QHS zolpidem 10 MG tablet 10 mg PO QHS pregabalin 75 MG capsule 75 mg PO TID Stiolto Respimat 2.5-2.5 mcg/actuation Mist 1 puff INHALATION BID ferrous sulfate 325 MG tablet 325 mg PO BID Label Comments: iron supplement buprenorphine 15 mcg/hour patch weekly 15 mcg transdermal FULLER warfarin 5 mg tablet 5 mg PO DAILY Protocol: Dose Management Condition: Tuesday Dose/Route: 5 mg Instruction: 1 x 5 mg tablet Condition: Tuesday Dose/Route: 0 mg Instruction: 0 tablets Condition: Tuesday Dose/Route: 0 mg Instruction: 0 tablets Condition: Tuesday Dose/Route: 0 mg Instruction: 0 tablets Condition: Dose/Route: 5 mg Instruction: 1 x 5 mg tablet Condition: Tuesday Dose/Route: 5 mg Instruction: 1 x 5 mg tablet Condition: Tuesday Dose/Route: 5 mg Instruction: 1 x 5 mg tablet Protocol Text: Adjustment Start Date: Tuesday08/23/22 INR Value: 2.8 INR Date: 08/23/22 Discontinued amoxicillin-pot clavulanate 875-125 mg tablet 1 tab PO BID enoxaparin 60 mg/0.6 mL syringe 60 mg subcut Q12H Qty: 6 1RF Referrals / Follow Up: Darrell Galindo MD [Med Staff - Active Staff] - Within 2 Weeks Guillermo Pritchard MD [Primary Care Provider] - Within 1 Week Disposition Disposition (needs filled in before D/C Order can be placed): Home, Self Care Charges/Coding Visit Charges Inpatient E&M: 94712 Disch Hosp >30min
--- NOTE | 2022-08-26 11:48 | CASEMGMT ---
RN ALEXANDER Follow-up: Face to face with pt and pt's daughter. Discussed wound care. Pt's daughter states she is comfortable with completing dressing changes. This RN CM spoke with Susanna Wound RN and states a 2x2 dressing can be used starting with the dressing change tomorrow. Explained this to pt's daughter who expressed understanding. Discussed with pt and pt's daughter the need to monitor pt's INR. Pt states he works with the [facility] for this. Encouraged pt to contact them to arrange next INR check. This RN CM contacted SURY Santamaria at the [facility] and notified them of his discharge for ongoing INR monitoring. Per Dr. Sellers, pt does not need to continue with the lovenox at discharge. SURY Aguilera notified for correction of discharge instructions. Pt and his daughter deny any additional needs at this time. Toby Esteban RN CM
[2022-08-26 12:10] VITALS: BP 130/74; PULSE 68; RESP 18; TEMP 36.9; O2SAT 98
[2022-08-26 14:10] LABS: Pathologist Review Reviewed
== END 2022-08-26 12:08 | disposition home or self-care (01) | DRG 602 ==
LOC: ED 14:27 → MS3 20:41
PROVIDERS: Admitting Provider Family Medicine; Emergency Provider Student in an Organized Health Care Education/Training Program; PCP Family Medicine; Visit Provider Student in an Organized Health Care Education/Training Program
DX: L02.31 Cutaneous abscess of buttock (principal); E43 Unspecified severe protein-calorie malnutrition; I13.0 Hypertensive heart and chronic kidney disease with heart failure and stage 1 through stage 4 chronic kidney disease, or unspecified chronic kidney disease; J96.11 Chronic respiratory failure with hypoxia; I50.32 Chronic diastolic (congestive) heart failure; I49.5 Sick sinus syndrome; I48.0 Paroxysmal atrial fibrillation; N18.31 Chronic kidney disease, stage 3a; J44.9 Chronic obstructive pulmonary disease, unspecified; E78.00 Pure hypercholesterolemia, unspecified; I25.10 Atherosclerotic heart disease of native coronary artery without angina pectoris; K21.9 Gastro-esophageal reflux disease without esophagitis; I25.5 Ischemic cardiomyopathy; I35.0 Nonrheumatic aortic (valve) stenosis; F17.210 Nicotine dependence, cigarettes, uncomplicated; L03.317 Cellulitis of buttock; Z99.81 Dependence on supplemental oxygen; G89.4 Chronic pain syndrome; Z79.82 Long term (current) use of aspirin; Z79.01 Long term (current) use of anticoagulants; Z79.899 Other long term (current) drug therapy; Z95.0 Presence of cardiac pacemaker; Z95.1 Presence of aortocoronary bypass graft; Z95.2 Presence of prosthetic heart valve; Z95.5 Presence of coronary angioplasty implant and graft
CPT/HCPCS: 36415; 72193; 80048; 80053; 85025; 85610; 85730; 87040; 87070; 87075; 87205; 87640; 94640; 94668; 97802; 99252; 99285; Q9967; A4216; G0463; J2405

== ENCOUNTER → 2022-08-30 | Outpatient (CLI) | payer MEDICARE, SELFPAY ==
[2022-08-30 11:05] LABS: INR Fingerstick 1.8; Prothrombin Time Fingerstick 21.3 SEC (11.7-14.9)
== END | disposition home or self-care (01) ==
LOC: LAB 08:54
PROVIDERS: PCP Family Medicine; Visit Provider Internal Medicine Cardiovascular Disease
DX: I48.0 Paroxysmal atrial fibrillation (principal); Z79.01 Long term (current) use of anticoagulants; Z95.2 Presence of prosthetic heart valve
CPT/HCPCS: 36416; 85610

== ENCOUNTER → 2022-09-02 | Outpatient (CLI) | payer MEDICARE, SELFPAY ==
[2022-09-02 10:50] LABS: INR Fingerstick 2.4; Prothrombin Time Fingerstick 28.3 SEC (11.7-14.9)
== END | disposition home or self-care (01) ==
LOC: LAB 09:29
PROVIDERS: PCP Family Medicine; Visit Provider Internal Medicine Cardiovascular Disease
DX: I48.0 Paroxysmal atrial fibrillation (principal); Z79.01 Long term (current) use of anticoagulants; Z95.2 Presence of prosthetic heart valve
CPT/HCPCS: 36416; 85610

== ENCOUNTER → 2022-09-09 | Outpatient (CLI) | payer MEDICARE, SELFPAY ==
[2022-09-09 12:55] LABS: INR Fingerstick 2.6; Prothrombin Time Fingerstick 30.5 SEC (11.7-14.9)
== END | disposition home or self-care (01) ==
LOC: LAB 07:33
PROVIDERS: PCP Family Medicine; Referring Provider Internal Medicine Cardiovascular Disease; Visit Provider Internal Medicine Cardiovascular Disease
DX: I48.0 Paroxysmal atrial fibrillation (principal); Z95.2 Presence of prosthetic heart valve; Z79.01 Long term (current) use of anticoagulants
CPT/HCPCS: 36416; 85610

== ENCOUNTER → 2022-09-13 | Outpatient (CLI) | payer MEDICARE, SELFPAY ==
[2022-09-13 10:16] LABS: Prothrombin Time Fingerstick 23.3 SEC (11.7-14.9)
== END | disposition home or self-care (01) ==
LOC: LAB 08:05
PROVIDERS: PCP Family Medicine; Visit Provider Internal Medicine Cardiovascular Disease
DX: I48.0 Paroxysmal atrial fibrillation (principal); Z79.01 Long term (current) use of anticoagulants; Z95.2 Presence of prosthetic heart valve
CPT/HCPCS: 36416; 85610

== ENCOUNTER → 2022-09-20 | Outpatient (CLI) | payer MEDICARE, SELFPAY ==
[2022-09-20 10:26] LABS: INR Fingerstick 1.4; Prothrombin Time Fingerstick 17.5 SEC (11.7-14.9)
== END | disposition home or self-care (01) ==
LOC: LAB 08:52
PROVIDERS: PCP Family Medicine; Referring Provider Internal Medicine Cardiovascular Disease; Visit Provider Internal Medicine Cardiovascular Disease
DX: I48.0 Paroxysmal atrial fibrillation (principal); Z79.01 Long term (current) use of anticoagulants; Z95.2 Presence of prosthetic heart valve
CPT/HCPCS: 36416; 85610

== ENCOUNTER → 2022-09-22 | Outpatient (CLI) | payer MEDICARE, SELFPAY ==
[2022-09-22 11:36] LABS: INR Fingerstick 2.4; Prothrombin Time Fingerstick 27.6 SEC (11.7-14.9)
== END | disposition home or self-care (01) ==
LOC: LAB 07:30
PROVIDERS: PCP Family Medicine; Referring Provider Internal Medicine Cardiovascular Disease; Visit Provider Internal Medicine Cardiovascular Disease
DX: I48.0 Paroxysmal atrial fibrillation (principal); Z95.2 Presence of prosthetic heart valve; Z79.01 Long term (current) use of anticoagulants
CPT/HCPCS: 36416; 85610

== ENCOUNTER → 2022-09-30 | Outpatient (CLI) | payer MEDICARE, SELFPAY ==
[2022-09-30 10:50] LABS: INR Fingerstick 2.6; Prothrombin Time Fingerstick 27.6 SEC (11.7-14.9)
== END | disposition home or self-care (01) ==
LOC: LAB 07:45
PROVIDERS: PCP Family Medicine; Referring Provider Internal Medicine Cardiovascular Disease; Visit Provider Internal Medicine Cardiovascular Disease
DX: I48.0 Paroxysmal atrial fibrillation (principal); Z95.2 Presence of prosthetic heart valve; Z79.01 Long term (current) use of anticoagulants
CPT/HCPCS: 36416; 85610

== ENCOUNTER → 2022-10-13 | Outpatient (CLI) | payer MEDICARE, SELFPAY ==
[2022-10-13 10:45] LABS: INR Fingerstick 2.6; Prothrombin Time Fingerstick 27.9 SEC (11.7-14.9)
== END | disposition home or self-care (01) ==
LOC: LAB 07:39
PROVIDERS: PCP Family Medicine; Referring Provider Internal Medicine Cardiovascular Disease; Visit Provider Internal Medicine Cardiovascular Disease
DX: I48.0 Paroxysmal atrial fibrillation (principal); Z95.2 Presence of prosthetic heart valve; Z79.01 Long term (current) use of anticoagulants
CPT/HCPCS: 36416; 85610

== ENCOUNTER → 2022-10-29 | Outpatient (CLI) | payer MEDICARE, SELFPAY ==
[2022-10-29 15:03] LABS: Absolute Lymphocyte Count 0.71 X10^3/uL (0.83-4.51); Absolute Neutrophil Count 3.9 X10^3/uL (2.0-7.7); Basophil# 0.05 X10^3/uL; Eosinophil# 0.08 X10^3/uL; Eosinophils% 1.6 % (0-5); Hematocrit 42.7 % (40-54); Hemoglobin 13.7 g/dL (13.0-16.5); Lymphocyte # 0.71 X10^3/ul (0.83-4.51); Lymphocyte % 13.8 % (19-41); Mean Corp Hgb Conc 32.1 g/dL (32-36); Mean Corpuscular Hgb 29.7 pg (27.0-32.0); Mean Corpuscular Volume 92.4 fL (80-94); Mean Platelet Vol. 11.3 fl (6.2-12.0); Monocyte# 0.43 X10^3/uL; Monocyte% 8.3 % (0-10); NRBC Flagged by Analyzer 0 % (0-5); Neutrophil # 3.86 X10^3/uL (2.7-7.7); Neutrophil % 74.9 % (47-70); Platelet Count 165 K/mm3 (150-450); RBC Distribution Width CV 17.4 % (11.6-14.6); RBC Distribution Width SD 59.6 fl (35.1-43.9); Red Blood Count 4.62 M/mm3 (4.6-6.2); White Blood Count 5.2 K/mm3 (4.4-11.0)
== END | disposition home or self-care (01) ==
LOC: MFPLAB 11:20
PROVIDERS: PCP Family Medicine; Visit Provider Family Medicine
DX: D64.9 Anemia, unspecified (principal)
CPT/HCPCS: 36415; 85025

== ENCOUNTER → 2022-11-03 | Outpatient (CLI) | payer MEDICARE, SELFPAY ==
[2022-11-03 11:20] LABS: INR Fingerstick 2.6; Prothrombin Time Fingerstick 27.6 SEC (11.7-14.9)
== END | disposition home or self-care (01) ==
LOC: LAB 09:01
PROVIDERS: PCP Family Medicine; Referring Provider Internal Medicine Cardiovascular Disease; Visit Provider Internal Medicine Cardiovascular Disease
DX: I48.0 Paroxysmal atrial fibrillation (principal); Z79.01 Long term (current) use of anticoagulants; Z95.2 Presence of prosthetic heart valve
CPT/HCPCS: 36416; 85610

== ENCOUNTER → 2022-12-01 | Outpatient (REF) | payer MEDICARE, SELFPAY ==
[2022-12-01 11:11] LABS: INR Fingerstick 4.1; Prothrombin Time Fingerstick 42.6 SEC (11.7-14.9)
[2022-12-01 11:34] LABS: International Normalized Ratio 3.3; Prothrombin Time (Protime)PT. 33.9 SECONDS (11.7-14.9)
== END ==
LOC: LAB 09:16
PROVIDERS: PCP Family Medicine; Visit Provider Internal Medicine Cardiovascular Disease
DX: Z79.01 Long term (current) use of anticoagulants (principal); I48.0 Paroxysmal atrial fibrillation; Z95.2 Presence of prosthetic heart valve
CPT/HCPCS: 36416; 85610

== ENCOUNTER → 2022-12-29 | Outpatient (CLI) | payer MEDICARE, SELFPAY ==
[2022-12-29 11:25] LABS: INR Fingerstick 3.3; Prothrombin Time Fingerstick 34.9 SEC (11.7-14.9)
== END | disposition home or self-care (01) ==
LOC: LAB 09:06
PROVIDERS: PCP Family Medicine; Referring Provider Internal Medicine Cardiovascular Disease; Visit Provider Internal Medicine Cardiovascular Disease
DX: I48.0 Paroxysmal atrial fibrillation (principal); Z79.01 Long term (current) use of anticoagulants; Z95.2 Presence of prosthetic heart valve
CPT/HCPCS: 36416; 85610

== ENCOUNTER → 2023-01-13 | Outpatient (CLI) | payer MEDICARE, SELFPAY ==
[2023-01-13 17:39] LABS: Absolute Lymphocyte Count 0.68 X10^3/uL (0.83-4.51); Absolute Neutrophil Count 3.2 X10^3/uL (2.0-7.7); Basophil# 0.04 X10^3/uL; Basophil% 0.9 % (0-1); Eosinophil# 0.05 X10^3/uL; Eosinophils% 1.1 % (0-5); Hematocrit 39.2 % (40-54); Hemoglobin 12.1 g/dL (13.0-16.5); Lymphocyte # 0.68 X10^3/ul (0.83-4.51); Lymphocyte % 15.5 % (19-41); Mean Corp Hgb Conc 30.9 g/dL (32-36); Mean Corpuscular Hgb 29.5 pg (27.0-32.0); Mean Corpuscular Volume 95.6 fL (80-94); Mean Platelet Vol. 10.8 fl (6.2-12.0); Monocyte% 9.1 % (0-10); NRBC Flagged by Analyzer 0 % (0-5); Neutrophil # 3.19 X10^3/uL (2.7-7.7); Neutrophil % 72.7 % (47-70); Platelet Count 163 K/mm3 (150-450); RBC Distribution Width CV 16.9 % (11.6-14.6); White Blood Count 4.4 K/mm3 (4.4-11.0)
[2023-01-13 17:46] LABS: Anion Gap 6 (5-15); BUN 16 mg/dL (7-18); BUN/Creat Ratio 12.3 RATIO (10-20); Calcium,Total 8.7 mg/dL (8.5-10.1); Chloride 106 mmol/L (98-107); Cholesterol 128 mg/dL (200); EST Glomerular Filtration Rate 56 mL/min (>60); Est Glom Filt Rate - Afr Amer 68 mL/min (>60); Glucose 106 mg/dL (74-106); High Density Lipoprotein 48 mg/dL; PSA,Total - Annual Screen 1.89 ng/mL (0.00-4.00); Potassium 4.1 mmol/L (3.5-5.1); Sodium Level 141 mmol/L (136-145); Triglycerides 94 mg/dL; Very Low Density Lipoprotein 19 mg/dL (5-40)
== END | disposition home or self-care (01) ==
LOC: MFPLAB 14:44
PROVIDERS: PCP Family Medicine; Visit Provider Family Medicine
DX: Z00.00 Encounter for general adult medical examination without abnormal findings (principal); D64.9 Anemia, unspecified
CPT/HCPCS: 36415; 80048; 80061; 84153; 85025; G0103

== ENCOUNTER → 2023-01-26 | Outpatient (CLI) | payer MEDICARE, SELFPAY ==
[2023-01-26 11:14] LABS: International Normalized Ratio 3.3; Prothrombin Time (Protime)PT. 33.9 SECONDS (11.7-14.9)
== END | disposition home or self-care (01) ==
LOC: LAB 08:14
PROVIDERS: PCP Family Medicine; Referring Provider Internal Medicine Cardiovascular Disease; Visit Provider Internal Medicine Cardiovascular Disease
DX: I48.0 Paroxysmal atrial fibrillation (principal); Z95.2 Presence of prosthetic heart valve; Z79.01 Long term (current) use of anticoagulants
CPT/HCPCS: 36415; 85610

== ENCOUNTER → 2023-02-25 | Outpatient (CLI) | payer MEDICARE, SELFPAY ==
[2023-02-25 10:40] LABS: International Normalized Ratio 3.5
== END | disposition home or self-care (01) ==
LOC: LAB 08:28
PROVIDERS: PCP Family Medicine; Visit Provider Internal Medicine Cardiovascular Disease
DX: I48.0 Paroxysmal atrial fibrillation (principal); Z79.01 Long term (current) use of anticoagulants; Z95.2 Presence of prosthetic heart valve
CPT/HCPCS: 36415; 85610

== ENCOUNTER → 2023-03-28 | Outpatient (CLI) | payer MEDICARE, SELFPAY ==
[2023-03-28 10:54] LABS: Prothrombin Time (Protime)PT. 63.2 SECONDS (11.7-14.9)
[2023-03-28 11:02] LABS: International Normalized Ratio 7.2
== END | disposition home or self-care (01) ==
LOC: LAB 09:11
PROVIDERS: PCP Family Medicine; Referring Provider Internal Medicine Cardiovascular Disease; Visit Provider Internal Medicine Cardiovascular Disease
DX: I48.91 Unspecified atrial fibrillation (principal); Z95.2 Presence of prosthetic heart valve; Z79.01 Long term (current) use of anticoagulants
CPT/HCPCS: 36415; 85610

== ENCOUNTER 2023-03-29 15:47 | Inpatient (IN) | payer MEDICARE, SELFPAY ==
[2023-03-29] VITALS (7 sets, daily range): BP systolic 90–110; BP diastolic 47–56; PULSE 60–66; RESP 12–18; TEMP 36.1–36.7; O2SAT 93–96; BMI 23.0; BMI 21.3
--- NOTE | 2023-03-29 16:17 | EKG12_ITS ---
Test Reason : ALT LOC Blood Pressure : / mmHG Vent. Rate : 060 BPM Atrial Rate : 060 BPM P-R Int : 176 ms QRS Dur : 182 ms QT Int : 508 ms P-R-T Axes : 090 263 085 degrees QTc Int : 508 ms AV dual-paced rhythm Abnormal ECG Confirmed by JOSÉ KO, WEI ([id number]), design editor RAVEN RADFORD ([id number]) on 03/31/2023 1:44:14 PM Referred By: Confirmed By:WEI KUMAR MD
--- NOTE | 2023-03-29 16:17 | CT_ITS ---
INDICATION: altered mental status, confusion. EXAMINATION: CT BRAIN - CT Head or Brain W/O Contrast Injection TECHNIQUE: Multiple axial images were obtained of the head without intravenous contrast. A radiation dose optimization technique was used for this scan. IV Contrast dosage and agent: None. RADIATION DOSAGE (If Supplied By Facility): CTDIvol = ( 44.99 ) mGy, DLP = ( 863.60 ) mGycm COMPARISON: 05/12/2018 FINDINGS: HEMISPHERES: 1. The cerebral parenchyma, ventricular system, subarachnoid spaces have normal configuration and density. There is a normal gyral pattern. There is normal rubin/white differentiation. No midline shift.. 2. Diffuse involutional changes and chronic microvascular deep white matter changes. Findings are stable. 3. No intraparenchymal mass, hemorrhage, or acute territorial infarct. CEREBELLUM - BRAINSTEM: The cerebellum, brainstem, basilar and suprasellar cisterns have normal appearance. No Chiari malformation. PITUITARY: Infundibulum and pituitary have normal configuration. Midline structures appear normal. CSF SPACES: Appropriate for age. No hydrocephalus. Basal cisterns are patent. VESSELS: 1. Extensive vascular calcifications in the cavernous carotid vessels. 2. No hyperdense vascular signs noted.. ORBITS AND PARANASAL SINUSES: 1. Normal appearance of the bony orbits. Normal appearance of the globes and retrobulbar soft tissues.. Incidental note of bilateral scleral calcifications. 2. Paranasal sinuses are clear. BONY ELEMENTS: Bony elements of the cranial vault, facial skeleton and skull base have normal appearance. SCALP AND SOFT TISSUES: Normal appearance of the soft tissues of the scalp and the visualized face OTHER: None ASPECTS Score for Acute Strokes: 10 CT/Brain/Head without Contrast IMPRESSION: 1. Stable exam. 2. Diffuse involutional changes and chronic microvascular deep white matter disease. 3. No intracranial mass, hemorrhage or acute territorial infarct. 4. No radiographically significant sinus disease.. Electronically Signed: Darien Sims MD at 17:58 EDT ,
--- NOTE | 2023-03-29 16:21 | EDS_ITS ---
HPI History of Present Illness Chief Complaint: Pacer/ICD Informant: patient and EMS Narrative Narrative: Sent in by EMS from home for reported increasing confusion and low pulse ox however stayed in the 90s. Patient discharged from [facility] 4 days ago. He states he lives with his daughter. From paperwork apparently had 2 stents placed there and pacemaker, questionable revision not confirmed at this time due to being on the right side and previous left-sided healing scar. He states mild cough. Blood glucose 114 per EMS pulse ox 96% on room air per EMS blood pressure stable. Denies vomiting or diarrhea. He is on warfarin for history of paroxysmal A-fib. [facility] Medical History (Updated 03/29/23 @ 19:35 by Latisha Gonzalez) Acute respiratory failure with hypoxia Ambulates with cane Anemia due to chronic blood loss Anticoagulant long-term use Arthritis Asthma Atherosclerotic heart disease of [place] coronary artery without angina pectoris Atrial fibrillation Back pain Back pain due to injury Cardiology follow-up encounter Chest pain CHF (congestive heart failure) Chronic airway obstruction Chronic anticoagulation Chronic cough Chronic pain Chronic pain syndrome Chronic systolic (congestive) heart failure COPD (chronic obstructive pulmonary disease) COPD (chronic obstructive pulmonary disease) Coronary artery disease Difficulty swallowing Erosion of pacemaker pocket due to and not concurrent with implantation of cardiac pacemaker Essential hypertension Former smoker Gastric reflux GERD (gastroesophageal reflux disease) Heart attack High cholesterol History of echocardiogram History of edema History of GI bleed History of heart attack History of pain when walking History of stress test Hx of fracture of ankle Hx of fracture of ankle Hypertension ICD (implantable cardioverter-defibrillator) in place Injury of back Injury of head and neck Intermittent complete heart block Irregular heartbeat Ischemic cardiomyopathy Kidney disease longterm current use of anticoagulant 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 On home oxygen therapy Osteoporosis Paroxysmal atrial fibrillation Pericardial effusion after operative procedure Perirectal abscess Persistent atrial fibrillation Presence of cardiac pacemaker Pure hypercholesterolemia Restless legs Secondary pulmonary arterial hypertension Shortness of breath on exertion Sick sinus syndrome Smoker Spinal stenosis of lumbar region Stage 3a chronic kidney disease (CKD) Stroke Symptomatic bradycardia TIA (transient ischemic attack) Tobacco use disorder Uncontrolled pain Wears dentures Wears glasses Home Medications albuterol sulfate 90 mcg/actuation breath activated powder inhaler 2 puff inhalation Q4H PRN Shortness Of Breath 09/25/15 [History Last Taken 08/23/22] cholecalciferol (vitamin D3) 25 mcg (1,000 unit) tablet 1,000 unit PO DAILY SUPPLEMENT 09/25/15 [History Last Taken 08/24/22] folic acid 1 mg tablet 1 mg PO QHS SUPPLEMENT 06/24/16 [History Last Taken 08/23/22] pantoprazole 40 mg tablet,delayed release 40 mg PO BID ACID REFLUX 01/02/18 [History Last Taken 08/24/22] zolpidem 10 mg tablet 10 mg PO QHS INSOMNIA 05/26/18 [History Last Taken 08/23/22] pregabalin 75 mg capsule 75 mg PO TID PAIN 07/28/18 [History Last Taken 08/24/22] tiotropium 2.5 mcg-olodaterol 2.5 mcg/actuation mist for inhalation ([employer] Respimat) 1 puff inhalation BID ASTHMA 06/18/21 [History Last Taken 08/24/22] ipratropium 0.5 mg-albuterol 3 mg (2.5 mg base)/3 mL nebulization soln 3 ml inhalation 4X/DAY SHORTNESS OF BREATH 11/25/21 [History Last Taken 04/06/22] ferrous sulfate 325 mg (65 mg iron) tablet 325 mg PO BID IRON SUPPLEMENT 04/06/22 [History Last Taken 08/24/22] furosemide 40 mg tablet 40 mg PO QODAY FLUID 05/27/22 [History Last Taken 08/24/22] buprenorphine 15 mcg/hour weekly transdermal patch 15 mcg transdermal FULLER PAIN 08/24/22 [History Last Taken 08/15/22] nitroglycerin 0.4 mg sublingual tablet 0.4 mg sublingual Q5M PRN Chest Pain #25 tabs 09/17/22 [Rx Last Taken Unknown] warfarin 5 mg tablet 5 mg PO .COMPLEX BLOOD THINNER #90 tabs 12/01/22 [Rx Last Taken Unknown] warfarin 7.5 mg tablet 7.5 mg PO .COMPLEX #90 tabs 12/01/22 [Rx Last Taken Unknown] amiodarone 200 mg tablet 400 mg PO Q8H afib 03/28/23 [History Last Taken Unknown] clopidogrel 75 mg tablet 75 mg PO DAILY 03/29/23 [History Last Taken Unknown] empagliflozin 10 mg tablet (Jardiance) 10 mg PO DAILY 03/29/23 [History Last Taken Unknown] metoprolol succinate 100 mg tablet,extended release 24 hr 100 mg PO Q12H 03/29/23 [History Last Taken Unknown] rosuvastatin 40 mg tablet (Crestor) 40 mg PO DAILY 03/29/23 [History Last Taken Unknown] Allergy/AdvReac Type Severity Reaction Status Date / Time No Known Allergies Allergy Verified 03/29/23 15:56 Family History Son , age 44 from [place] CAD (coronary artery disease) Myocardial infarction Sudden cardiac Brother CAD (coronary artery disease) Pt states all nine of his siblings have heart problems Sister CAD (coronary artery disease) Patient states all nine of his siblings have heart problems Surgical History (Updated 03/29/23 @ 19:35 by Latisha Gonzalez) Cardiac pacemaker in situ H/O cardiac catheterization History of coronary artery stent placement (~06/28/11) History of coronary artery stent placement History of esophagogastroduodenoscopy (EGD) (~10/2021) History of left heart catheterization History of lumbar fusion History of mechanical aortic valve replacement (~03/27/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 Hx of CABG S/P CABG x 1 (~03/27/93) Status post cardiac surgery Social History household members: family Smoking Status: Former smoker alcohol intake: never substance use type: does not use caffeine: No ROS ROS ED Constitutional Constitutional ED: Denies chills, fever(s) or sweats Eyes Eyes: Denies change in vision ENT ENT ED: Denies dysphagia or sore throat Cardiovascular Cardiovascular: Denies chest pain, leg edema, palpitations or racing heartbeat Respiratory/Chest Respiratory/Chest: Reports cough; Denies dyspnea or dyspnea on exertion Gastrointestinal Gastrointestinal: Denies abdominal pain, diarrhea, nausea or vomiting Genitourinary Genitourinary ED: Denies dysuria, hematuria or urinary frequency Musculoskeletal Musculoskeletal: Denies back pain, extremity pain or neck pain Integumentary Denies rash or wounds Neurologic Neurologic: Denies headache(s), paresthesias or weakness EXAM Physical Exam Const Vital Signs: 03/29/23 15:49 03/29/23 15:47 03/29/23 15:57 Temperature 96.9 F L Temperature Source Temporal Pulse Rate 60 Respiratory Rate 12 Respiratory Effort Normal Respiratory Pattern Normal Blood Pressure 100/51 L 110/56 L Blood Pressure Mean 67 74 Blood Pressure Source Blood Pressure Position Blood Pressure Location Pulse Ox 96 Oxygen Delivery Method Room Air 03/29/23 17:43 03/29/23 19:10 03/29/23 19:05 Temperature 96.9 F L 97.7 F L Temperature Source Temporal Oral Pulse Rate 60 60 60 Respiratory Rate 18 14 17 Respiratory Effort Respiratory Pattern Blood Pressure 107/54 L 96/55 L 90/55 L Blood Pressure Mean 71 68 66 Blood Pressure Source Monitor Blood Pressure Position Semi-Fowlers Blood Pressure Location Right Arm Pulse Ox 95 95 93 Oxygen Delivery Method Room Air Room Air Room Air Positive well nourished and well developed Constitutional Narrative: Drowsy and fatigued appearing, nontoxic. Answering questions. General Appearance ED: well developed HEENT Reports dry mucous membranes normocephalic and atraumatic Mouth ED: Yes dry mucous membranes Mouth: dry mucous membranes Eyes PERRL and EOMs intact bilaterally General Eye ED: Yes normal appearance of both eyes and pale conjunctiva Neck no lymphadenopathy and supple General: Negative for tenderness Chest Wall Chest Narrative: Right stress covered dressing with ecchymosis lower this, pacemaker device noted below the dressing. Left chest bandage removed healing wound. Chest: Negative for tenderness Resp normal respiratory effort and normal air movement Effort and Inspection: symmetric chest movement; Negative for respiratory distress Cardio regular rate, regular rhythm and no murmurs Peripheral Pulses: pulses 2+ throughout GI normal to inspection, nondistended, normoactive bowel sounds and non-tender Palpation: Negative for guarding or rebound tenderness present Back/Spine no CVA tenderness and no thoracic nor lumbar tenderness Extremity normal to inspection General Extremety ED: Negative for edema or tenderness General Extremity: Negative for edema Neuro oriented x3, CN's II-XII intact bilaterally and no sensory deficits noted Sensorium / Orientation: awake and alert Skin Skin Narrative: See above MDM MDM MDM Narrative Medical decision making narrative: Interventions / MDM: Differential diagnosis: Infectious, anemia, electrolyte abnormalities Diagnosis considered but do not suspect: Intracranial hemorrhage however CT negative. My EKG interpretation: Paced rhythm rate of 60, no acute findings. Imaging independently reviewed and interpreted by myself: CT brain: No acute process. 1 view chest x-ray: ICD wires intact, no acute process. External documents reviewed: N/A Test considered but not ordered:N/A ED course: Patient vital signs are stable, clinically dehydrated and pale on exam. He is alert and oriented x3. Pulse ox 96% on room air. Reported hypoxia and confusion from report. Work-up initiated. There is no focal neurologic deficits. CT brain, chest x-ray labs and urine ordered. Results of labs notes hemoglobin . Creatinine 3.09 up from 1.3, 2 months ago. Initially was given 500 cc of fluid bolus. History of cardiomyopathy. INR returns to 6.7. Hemoccult sent to the lab, has returned negative. 2 units of blood ordered to be transfused slowly with his cardiomyopathy. I spoke with hospitalist, Dr. Nichole for admission. Blood pressure remained stable. Re-evaluation: stable Disposition discussed with patient/family/significant other: Patient and daughter Case discussed with consulting clinician: Hospitalist This note was generated with [employer] dictation software. It may contain incorrect words, spelling, and punctuation that were not noted in checking the note before signing. Lab Data Attestation: I reviewed the patient's lab results. Labs: Laboratory Results - last 24 hr 03/29/23 03/29/23 03/29/23 16:25 17:11 18:01 WBC 4.2 L RBC 2.26 L Hgb 6.6 L Hct 22.3 L MCV 98.7 H MCH 29.2 MCHC 29.6 L RDW Std Deviation 61.3 H RDW Coeff of [place] 17.2 H Plt Count 142 L MPV 10.8 Immature Gran % (Auto) 0.700 Neut % (Auto) 64.0 Lymph % (Auto) 17.7 L [place] % (Auto) 13.2 H Eos % (Auto) 3.5 Baso % (Auto) 0.9 Absolute Neuts (auto) 2.7 Absolute Lymphs (auto) 0.75 L Nucleated RBC % 0 PT 59.4 H INR 6.7 H* APTT 81.5 H Sodium 142 Potassium 4.2 Chloride 108 H Carbon Dioxide 29.0 Anion Gap 5 BUN 55 H Creatinine 3.09 H Estim Creat Clear Calc 18.32 Est GFR (MDRD) Af Amer 25 L Est GFR (MDRD) Non-Af 21 L BUN/Creatinine Ratio 17.8 Glucose 122 H Calcium 9.1 Total Bilirubin 0.60 AST 305 H ALT 233 H Alkaline Phosphatase 269 H Total Protein 6.1 L Albumin 2.9 L Globulin 3.2 Albumin/Globulin Ratio 0.9 Urine Color Yellow Urine Clarity Sl. Cloudy Urine pH 6.0 Ur Specific [place] 1.015 Urine Protein 30 H Urine Glucose (UA) 1000 H Urine Ketones Negative Urine Occult Blood 25 H Urine Nitrite Negative Urine Bilirubin Negative Urine Urobilinogen Normal Ur Leukocyte Esterase Negative Urine RBC 0-5 SEEN Urine WBC 0-5 SEEN Ur Squamous Epith Cells 0 SEEN Urine Bacteria 0 SEEN Hyaline Casts 5-10 SEEN Fine Granular Casts 10-25 SEEN Urine Mucus 0 SEEN Blood Type O POSITIVE Antibody Screen NEGATIVE Radiography Diagnostic Testing: Clinical Impression(s) from Imaging Studies Brain CT 03/29/23 16:17 IMPRESSION: 1. Stable exam. 2. Diffuse involutional changes and chronic microvascular deep white matter disease. 3. No intracranial mass, hemorrhage or acute territorial infarct. 4. No radiographically significant sinus disease.. Electronically Signed: Darien Sims MD at 17:58 EDT , Chest X-Ray 03/29/23 17:15 IMPRESSION: 1. Median sternotomy wires and vascular clips consistent with prior CABG. 2. Removal of previous transvenous pacer, interval placement of RIGHT sided transvenous pacer/AICD system with leads in normal position. 3. No pneumothorax. 4. No congestive failure. 5. Minimal stable atelectasis at the LEFT base. No focal infiltrate or consolidation. Electronically Signed: Darien Sims MD at 17:49 EDT , Discharge Plan Dx/Rx/DC Orders Clinical Impression: Anemia, CHF (congestive heart failure), Chronic anticoagulation, Presence of cardiac pacemaker, [place] (acute kidney injury), Supratherapeutic INR Disposition Disposition: Acute Care Hospital [facility] Discharge Date/Time: 03/29/23 19:11
[2023-03-29 16:39] LABS: Absolute Lymphocyte Count 0.75 X10^3/uL (0.83-4.51); Absolute Neutrophil Count 2.7 X10^3/uL (2.0-7.7); Basophil# 0.04 X10^3/uL; Basophil% 0.9 % (0-1); Eosinophil# 0.15 X10^3/uL; Eosinophils% 3.5 % (0-5); Hematocrit 22.3 % (40-54); Hemoglobin 6.6 g/dL (13.0-16.5); Lymphocyte # 0.75 X10^3/ul (0.83-4.51); Lymphocyte % 17.7 % (19-41); Mean Corp Hgb Conc 29.6 g/dL (32-36); Mean Corpuscular Hgb 29.2 pg (27.0-32.0); Mean Corpuscular Volume 98.7 fL (80-94); Mean Platelet Vol. 10.8 fl (6.2-12.0); Monocyte# 0.56 X10^3/uL; Monocyte% 13.2 % (0-10); NRBC Flagged by Analyzer 0 % (0-5); Neutrophil # 2.71 X10^3/uL (2.7-7.7); Platelet Count 142 K/mm3 (150-450); RBC Distribution Width CV 17.2 % (11.6-14.6); RBC Distribution Width SD 61.3 fl (35.1-43.9); Red Blood Count 2.26 M/mm3 (4.6-6.2); White Blood Count 4.2 K/mm3 (4.4-11.0)
[2023-03-29 16:46] LABS: Prothrombin Time (Protime)PT. 59.4 SECONDS (11.7-14.9)
[2023-03-29 16:47] LABS: Partial Thromboplast Time 81.5 Seconds (24.1-36.2)
[2023-03-29 16:49] LABS: International Normalized Ratio 6.7
[2023-03-29 16:51] LABS: ALB/GLOB Ratio 0.9 RATIO (0.9-2.4); AST(SGOT) 305 U/L (15-37); Alanine Aminotransfer ALT/SGPT 233 U/L (16-61); Albumin, Serum 2.9 g/dL (3.2-5.0); Alkaline Phosphatase 269 U/L (45-117); Anion Gap 5 (5-15); BUN 55 mg/dL (7-18); BUN/Creat Ratio 17.8 RATIO (10-20); Calcium,Total 9.1 mg/dL (8.5-10.1); Chloride 108 mmol/L (98-107); Creatinine, Serum 3.09 mg/dL (0.70-1.30); EST Glomerular Filtration Rate 21 mL/min (>60); Est Glom Filt Rate - Afr Amer 25 mL/min (>60); Estimated Creatinine Clearance 18.32 ml/min; Globulin 3.2 g/dL (2.2-4.2); Glucose 122 mg/dL (74-106); Potassium 4.2 mmol/L (3.5-5.1); Protein, Total 6.1 g/dL (6.4-8.2); Sodium Level 142 mmol/L (136-145)
--- NOTE | 2023-03-29 16:51 | ED.RN ---
DR. OSUNA NOTIFIED OF INR RESULTS
[2023-03-29] MEDS: 0.9% Normal Saline (500mL Bag) 500 ML 1000 ML IV (17:00)
--- NOTE | 2023-03-29 17:15 | RAD_ITS ---
INDICATION: cough, confusion recent pacemaker placement. EXAMINATION/TECHNIQUE: X-RAY - XR Chest 1 View COMPARISON: 06/15/2022 FINDINGS: LIFE-SUPPORT AND LINES: 1. External wires, vascular clips, transvenous pacer/AICD system are noted. Transvenous pacer is been placed in the interval with removal of the previous LEFT sided dual lead pacer. 2. No pneumothorax. HEART AND VESSELS: The cardiac silhouette, pulmonary vasculature have normal appearance. No evidence of congestive failure. LUNGS AND PLEURAL SPACES: Minimal atelectasis at the LEFT base without change. No focal infiltrate consolidation or effusion. No pulmonary mass is noted. MEDIASTINUM AND HILAR REGIONS: No masses adenopathy noted. No areas of calcification. Visualized upper airway is normal in position. BONY ELEMENTS: No acute bony changes noted. RAD/Chest 1 View (Portable) IMPRESSION: 1. Median sternotomy wires and vascular clips consistent with prior CABG. 2. Removal of previous transvenous pacer, interval placement of RIGHT sided transvenous pacer/AICD system with leads in normal position. 3. No pneumothorax. 4. No congestive failure. 5. Minimal stable atelectasis at the LEFT base. No focal infiltrate or consolidation. Electronically Signed: Darien Sims MD at 17:49 EDT ,
[2023-03-29 17:16] LABS: Bacteria 0 SEEN /hpf (None Seen); Mucous, Urine 0 SEEN /hpf (<or=2+); Squamous Epithelial Cells - UA 0 SEEN /hpf (0-5)
[2023-03-29 17:23] LABS: Color, Urine Yellow (Yellow); Glucose, Dipstick 1000 mg/dl (Normal); Ketone-Dipstick Negative (Negative); Leukocyte Esterase-Dipstick Negative /ul (Negative); Nitrite-Dipstick Negative (Negative); Occult Blood-Urine 25 /ul (Negative); Protein-Dipstick 30 mg/dl (Negative); Specific Gravity, Urine 1.015 (1.002-1.030); Urine Bilirubin Dipstick Negative (Negative); Urine Clarity Sl. Cloudy (Clear); Urine Urobilinogen Normal (Normal)
[2023-03-29 18:24] LABS: Fine Granular Cast- Urine 10-25 SEEN /lpf (0-5); Hyaline Cast 5-10 SEEN /lpf (0-5); Red Blood Cells-Urine 0-5 SEEN /hpf (0-5)
[2023-03-29 18:26] LABS: White Blood Cells 0-5 SEEN /hpf (0-5)
[2023-03-29] MEDS: 0.9% Normal Saline (1000mL) 1,000 ML 100 ML IV (18:47)
--- NOTE | 2023-03-29 19:32 | EX.PCM.CON.G ---
HPI Consult Data Date of Consult: 03/29/23 HPI Narrative Reason for Consultation: Anemia HPI Narrative: REBECCA ARRIOLA, is a 82 M who presents by EMS from home for reported increasing confusion and low pulse ox however stayed in the 90s. Patient discharged from [facility] ago. He states he lives with his daughter. He apparently had 2 stents placed there and pacemaker, questionable revision not confirmed at this time due to being on the right side and previous left-sided healing scar. He recently was on Brilinta and risk on aspirin and Plavix along with amiodarone. He states mild cough. Blood glucose 114 per EMS pulse ox 96% on room air per EMS blood pressure stable. Denies vomiting or diarrhea. He has a past medical history of anemia, CAD, COPD, A. fib, TIA, prosthetic aortic valve on Coumadin.? His current INR is 6.2. His current hemoglobin is down to 6.6. He states that he is generally weak and gets short of breath with exertion only. I saw him on a previous visit for acute blood loss anemia. He had an upper endoscopy which had shown blood in the stomach along with blood in his posterior pharynx going down into his stomach. It was assumed that this was a posterior nasal bleed. He is not noticed any significant blood loss per rectum. Denies any melena or hematochezia. He denies any chest pain or shortness of breath. [facility] Medical History Acute respiratory failure with hypoxia Ambulates with cane Anemia due to chronic blood loss Anticoagulant long-term use Arthritis Asthma Atherosclerotic heart disease of [place] coronary artery without angina pectoris Atrial fibrillation Back pain Back pain due to injury Cardiology follow-up encounter Chest pain CHF (congestive heart failure) Chronic airway obstruction Chronic anticoagulation Chronic cough Chronic pain Chronic pain syndrome Chronic systolic (congestive) heart failure COPD (chronic obstructive pulmonary disease) COPD (chronic obstructive pulmonary disease) Difficulty swallowing Erosion of pacemaker pocket due to and not concurrent with implantation of cardiac pacemaker Essential hypertension Gastric reflux Heart attack High cholesterol History of echocardiogram History of edema History of GI bleed History of heart attack History of pain when walking History of stress test Hx of fracture of ankle Hx of fracture of ankle Hypertension Injury of back Injury of head and neck Intermittent complete heart block Irregular heartbeat Ischemic cardiomyopathy long-term current use of anticoagulant 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 On home oxygen therapy Osteoporosis Paroxysmal atrial fibrillation Pericardial effusion after operative procedure Perirectal abscess Persistent atrial fibrillation Presence of cardiac pacemaker Pure hypercholesterolemia Restless legs Secondary pulmonary arterial hypertension Shortness of breath on exertion Sick sinus syndrome Smoker Spinal stenosis of lumbar region Stage 3a chronic kidney disease (CKD) Stroke Symptomatic bradycardia TIA (transient ischemic attack) Tobacco use disorder Uncontrolled pain Wears dentures Wears glasses Home Medications albuterol sulfate 90 mcg/actuation breath activated powder inhaler 2 puff inhalation Q4H PRN Shortness Of Breath 09/25/15 [History Last Taken 08/23/22] cholecalciferol (vitamin D3) 25 mcg (1,000 unit) tablet 1,000 unit PO DAILY SUPPLEMENT 09/25/15 [History Last Taken 08/24/22] folic acid 1 mg tablet 1 mg PO QHS SUPPLEMENT 06/24/16 [History Last Taken 08/23/22] pantoprazole 40 mg tablet,delayed release 40 mg PO BID ACID REFLUX 01/02/18 [History Last Taken 08/24/22] zolpidem 10 mg tablet 10 mg PO QHS INSOMNIA 05/26/18 [History Last Taken 08/23/22] pregabalin 75 mg capsule 75 mg PO TID PAIN 07/28/18 [History Last Taken 08/24/22] tiotropium 2.5 mcg-olodaterol 2.5 mcg/actuation mist for inhalation ([employer] Respimat) 1 puff inhalation BID ASTHMA 06/18/21 [History Last Taken 08/24/22] ipratropium 0.5 mg-albuterol 3 mg (2.5 mg base)/3 mL nebulization soln 3 ml inhalation 4X/DAY SHORTNESS OF BREATH 11/25/21 [History Last Taken 04/06/22] ferrous sulfate 325 mg (65 mg iron) tablet 325 mg PO BID IRON SUPPLEMENT 04/06/22 [History Last Taken 08/24/22] furosemide 40 mg tablet 40 mg PO QODAY FLUID 05/27/22 [History Last Taken 08/24/22] buprenorphine 15 mcg/hour weekly transdermal patch 15 mcg transdermal FULLER PAIN 08/24/22 [History Last Taken 08/15/22] nitroglycerin 0.4 mg sublingual tablet 0.4 mg sublingual Q5M PRN Chest Pain #25 tabs 09/17/22 [Rx Last Taken Unknown] warfarin 5 mg tablet 5 mg PO .COMPLEX BLOOD THINNER #90 tabs 12/01/22 [Rx Last Taken Unknown] warfarin 7.5 mg tablet 7.5 mg PO .COMPLEX #90 tabs 12/01/22 [Rx Last Taken Unknown] amiodarone 200 mg tablet 200 mg PO .COMPLEX 03/28/23 [History Last Taken Unknown] clopidogrel 75 mg tablet 75 mg PO DAILY 03/29/23 [History Last Taken Unknown] empagliflozin 10 mg tablet (Jardiance) 10 mg PO DAILY 03/29/23 [History Last Taken Unknown] metoprolol succinate 100 mg tablet,extended release 24 hr 100 mg PO Q12H 03/29/23 [History Last Taken Unknown] rosuvastatin 40 mg tablet (Crestor) 40 mg PO DAILY 03/29/23 [History Last Taken Unknown] Allergy/AdvReac Type Severity Reaction Status Date / Time No Known Allergies Allergy Verified 03/29/23 15:56 Family History Son , age 44 from [place] CAD (coronary artery disease) Myocardial infarction Sudden cardiac Brother CAD (coronary artery disease) Pt states all nine of his siblings have heart problems Sister CAD (coronary artery disease) Patient states all nine of his siblings have heart problems Surgical History Cardiac pacemaker in situ H/O cardiac catheterization History of coronary artery stent placement (~06/28/11) History of esophagogastroduodenoscopy (EGD) (~10/2021) History of left heart catheterization History of lumbar fusion 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) Status post cardiac surgery Social History household members: family Smoking Status: Former smoker alcohol intake: never substance use type: does not use caffeine: No ROS Constitutional Constitutional: Denies anorexia, chills, fatigue or fever(s) Eyes Eyes: Denies blurry vision Cardiovascular Cardiovascular: Denies chest pain Respiratory/Chest Respiratory/Chest: Denies cough or dyspnea Gastrointestinal Gastrointestinal: Denies abdominal pain Musculoskeletal Musculoskeletal: Denies abnormal gait or muscle weakness Integumentary Integumentary: Denies jaundice Neurologic Neurologic: Denies abnormal gait Endocrine Endocrinology: Denies flushing Hematologic/Lymphatic Hematologic/Lymphatic: Denies easy bleeding Physical Exam Const alert, oriented x3 and no apparent distress Lab / Micro Data 03/29/23 16:25 03/29/23 16:25 Labs: Laboratory Results - last 24 hr 03/29/23 16:25: WBC 4.2 L, RBC 2.26 L, Hgb 6.6 L, Hct 22.3 L, MCV 98.7 H, MCH 29.2, MCHC 29.6 L, RDW Std Deviation 61.3 H, RDW Coeff of [place]aly[place] 17.2 H, Plt Count 142 L, MPV 10.8, Immature Gran % (Auto) 0.700, Neut % (Auto) 64.0, Lymph % (Auto) 17.7 L, [place] % (Auto) 13.2 H, Eos % (Auto) 3.5, Baso % (Auto) 0.9, Absolute Neuts (auto) 2.7, Absolute Lymphs (auto) 0.75 L, Nucleated RBC % 0, PT 59.4 H, INR 6.7 H*, APTT 81.5 H, Sodium 142, Potassium 4.2, Chloride 108 H, Carbon Dioxide 29.0, Anion Gap 5, BUN 55 H, Creatinine 3.09 H, Estim Creat Clear Calc 18.32, Est GFR (MDRD) Af Amer 25 L, Est GFR (MDRD) Non-Af 21 L, BUN/Creatinine Ratio 17.8, Glucose 122 H, Calcium 9.1, Total Bilirubin 0.60, AST 305 H, ALT 233 H, Alkaline Phosphatase 269 H, Total Protein 6.1 L, Albumin 2.9 L, Globulin 3.2, Albumin/Globulin Ratio 0.9 03/29/23 17:11: Urine Color Yellow, Urine Clarity Sl. Cloudy, Urine pH 6.0, Ur Specific [place] 1.015, Urine Protein 30 H, Urine Glucose (UA) 1000 H, Urine Ketones Negative, Urine Occult Blood 25 H, Urine Nitrite Negative, Urine Bilirubin Negative, Urine Urobilinogen Normal, Ur Leukocyte Esterase Negative, Urine RBC 0-5 SEEN, Urine WBC 0-5 SEEN, Ur Squamous Epith Cells 0 SEEN, Urine Bacteria 0 SEEN, Hyaline Casts 5-10 SEEN, Fine Granular Casts 10-25 SEEN, Urine Mucus 0 SEEN Micro: Microbiology 03/29/23 18:05 Stool Stool Occult Blood (COREEN) - Final 03/29/23 16:35 Nasal Secretion SARS-CoV-2 & FLU Antigen (Rapid) - Final Radiology Impression Brain CT 03/29/23 16:17 IMPRESSION: 1. Stable exam. 2. Diffuse involutional changes and chronic microvascular deep white matter disease. 3. No intracranial mass, hemorrhage or acute territorial infarct. 4. No radiographically significant sinus disease.. Electronically Signed: Darien Sims MD at 17:58 EDT , Chest X-Ray 03/29/23 17:15 IMPRESSION: 1. Median sternotomy wires and vascular clips consistent with prior CABG. 2. Removal of previous transvenous pacer, interval placement of RIGHT sided transvenous pacer/AICD system with leads in normal position. 3. No pneumothorax. 4. No congestive failure. 5. Minimal stable atelectasis at the LEFT base. No focal infiltrate or consolidation. Electronically Signed: Darien Sims MD at 17:49 EDT , Assessment & Plan Assessment/Plan (1) Acute anemia: PLAN: The differential diagnosis for his acute blood loss anemia does include angiodysplasia of the upper GI tract specifically at or near the ligament of Treitz and the duodenum and above, small bowel bleed secondary to angiodysplasia telangiectasias which is more common in patients with heart valve replacement, He will undergo an upper endoscopy for evaluation of his upper and lower GI tract. He was explained alternatives, risk, benefits including not withstanding bleeding, infection, sepsis, perforation, need for emergency to . He will have an ASA of 3. (2) Chronic anticoagulation: PLAN: His INR is currently 6.6. There is no sign of active GI bleeding at this time. Hold his warfarin. We will recheck his INR in the morning. Charges/Coding Visit Charges Inpatient E&M: 99546 Init Hosp L3
--- NOTE | 2023-03-29 19:42 | PCM.HP.STD ---
HPI - General General Date of Admission: 03/29/23 Date of Service: 03/29/23 Chief Complaint: Lethargy, mental status change HPI Narrative REBECCA ARRIOLA, is a 82 M who presents to the emergency room at after being brought in by his daughter due to increased lethargy and mild confusion today. Patient had just been discharged from [facility] approximately 4 days ago, he had an extended hospitalization of approximately 3 weeks and had 2 drug-eluting stents placed in his LAD and an ICD placed. 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 Patient has been weeks since his discharge from the hospital, his daughter states that he has been using a wheelchair rather than ambulate. Work-up in the emergency room included labs which showed a low hemoglobin at 6.6, white blood cell count was 4.2, INR was 6.7, creatinine was elevated at 3.09 and BUN was 55. Patient's liver enzymes were elevated with his AST at 305, ALT of 233, and alkaline phosphatase at 269. Urinalysis was unremarkable, chest x-ray did not show evidence of pneumonia. CT of the brain showed diffuse involutional changes and chronic microvascular deep white matter disease, there is no acute process noted. I talked to the patient, he was able to answer simple questions but did not carry on a conversation with this examiner. He knew he was in the hospital, he did not get the year correct (he thought it was 1922) but he knew it was the month of March. I talked at length with his daughter, patient has had a chronic anemia and he has had work-up in the past by gastroenterology without a definite bleeding source noted to be present although blood at 1 point was seen in his esophagus. Patient also follows with Dr. Kraus for his iron deficiency anemia, he does take oral iron. I do not know what the patient's hemoglobin results were from [facility] during his hospitalization, the daughter states that the special needs librarian office called her yesterday to state that his INR was elevated (Dr. Oh's office). Patient was placed on amiodarone at [facility] and this could be the cause of his elevated INR. I discussed the case briefly with Dr. Oh by phone, it does not appear that the patient is actively bleeding at this time and Dr. Oh did not think the patient needed vitamin K to reverse the effects of the Coumadin. Patient will be admitted to ICU, he will be transferred 2 units of packed red blood cells, his Coumadin will be held, he will be seen by gastroenterology and undergo an EGD tomorrow to make sure he does not have a bleeding site. I am not sure what the reason for the patient's lethargy is at this time. [facility] Medical History (Updated 03/29/23 @ 19:35 by Latisha Gonzalez) Acute respiratory failure with hypoxia Ambulates with cane Anemia due to chronic blood loss Anticoagulant long-term use Arthritis Asthma Atherosclerotic heart disease of [place] coronary artery without angina pectoris Atrial fibrillation Back pain Back pain due to injury Cardiology follow-up encounter Chest pain CHF (congestive heart failure) Chronic airway obstruction Chronic anticoagulation Chronic cough Chronic pain Chronic pain syndrome Chronic systolic (congestive) heart failure COPD (chronic obstructive pulmonary disease) COPD (chronic obstructive pulmonary disease) Coronary artery disease Difficulty swallowing Erosion of pacemaker pocket due to and not concurrent with implantation of cardiac pacemaker Essential hypertension Former smoker Gastric reflux GERD (gastroesophageal reflux disease) Heart attack High cholesterol History of echocardiogram History of edema History of GI bleed History of heart attack History of pain when walking History of stress test Hx of fracture of ankle Hx of fracture of ankle Hypertension ICD (implantable cardioverter-defibrillator) in place Injury of back Injury of head and neck Intermittent complete heart block Irregular heartbeat Ischemic cardiomyopathy Kidney disease [employer] current use of anticoagulant 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 On home oxygen therapy Osteoporosis Paroxysmal atrial fibrillation Pericardial effusion after operative procedure Perirectal abscess Persistent atrial fibrillation Presence of cardiac pacemaker Pure hypercholesterolemia Restless legs Secondary pulmonary arterial hypertension Shortness of breath on exertion Sick sinus syndrome Smoker Spinal stenosis of lumbar region Stage 3a chronic kidney disease (CKD) Stroke Symptomatic bradycardia TIA (transient ischemic attack) Tobacco use disorder Uncontrolled pain Wears dentures Wears glasses Home Medications albuterol sulfate 90 mcg/actuation breath activated powder inhaler 2 puff inhalation Q4H PRN Shortness Of Breath 09/25/15 [History Last Taken 08/23/22] cholecalciferol (vitamin D3) 25 mcg (1,000 unit) tablet 1,000 unit PO DAILY SUPPLEMENT 09/25/15 [History Last Taken 08/24/22] folic acid 1 mg tablet 1 mg PO QHS SUPPLEMENT 06/24/16 [History Last Taken 08/23/22] pantoprazole 40 mg tablet,delayed release 40 mg PO BID ACID REFLUX 01/02/18 [History Last Taken 08/24/22] zolpidem 10 mg tablet 10 mg PO QHS INSOMNIA 05/26/18 [History Last Taken 08/23/22] pregabalin 75 mg capsule 75 mg PO TID PAIN 07/28/18 [History Last Taken 08/24/22] tiotropium 2.5 mcg-olodaterol 2.5 mcg/actuation mist for inhalation (Stiolto Respimat) 1 puff inhalation BID ASTHMA 06/18/21 [History Last Taken 08/24/22] ipratropium 0.5 mg-albuterol 3 mg (2.5 mg base)/3 mL nebulization soln 3 ml inhalation 4X/DAY SHORTNESS OF BREATH 11/25/21 [History Last Taken 04/06/22] ferrous sulfate 325 mg (65 mg iron) tablet 325 mg PO BID IRON SUPPLEMENT 04/06/22 [History Last Taken 08/24/22] furosemide 40 mg tablet 40 mg PO QODAY FLUID 05/27/22 [History Last Taken 08/24/22] buprenorphine 15 mcg/hour weekly transdermal patch 15 mcg transdermal FULLER PAIN 08/24/22 [History Last Taken 08/15/22] nitroglycerin 0.4 mg sublingual tablet 0.4 mg sublingual Q5M PRN Chest Pain #25 tabs 09/17/22 [Rx Last Taken Unknown] warfarin 5 mg tablet 5 mg PO .COMPLEX BLOOD THINNER #90 tabs 12/01/22 [Rx Last Taken Unknown] warfarin 7.5 mg tablet 7.5 mg PO .COMPLEX #90 tabs 12/01/22 [Rx Last Taken Unknown] amiodarone 200 mg tablet 200 mg PO .COMPLEX 03/28/23 [History Last Taken Unknown] clopidogrel 75 mg tablet 75 mg PO DAILY 03/29/23 [History Last Taken Unknown] empagliflozin 10 mg tablet (Jardiance) 10 mg PO DAILY 03/29/23 [History Last Taken Unknown] metoprolol succinate 100 mg tablet,extended release 24 hr 100 mg PO Q12H 03/29/23 [History Last Taken Unknown] rosuvastatin 40 mg tablet (Crestor) 40 mg PO DAILY 03/29/23 [History Last Taken Unknown] Allergy/AdvReac Type Severity Reaction Status Date / Time No Known Allergies Allergy Verified 03/29/23 15:56 Family History Son , age 44 from [place] CAD (coronary artery disease) Myocardial infarction Sudden cardiac Brother CAD (coronary artery disease) Pt states all nine of his siblings have heart problems Sister CAD (coronary artery disease) Patient states all nine of his siblings have heart problems Surgical History (Updated 03/29/23 @ 19:35 by Latisha Gonzalez) Cardiac pacemaker in situ H/O cardiac catheterization History of coronary artery stent placement (~06/28/11) History of coronary artery stent placement History of esophagogastroduodenoscopy (EGD) (~10/2021) History of left heart catheterization History of lumbar fusion History of mechanical aortic valve replacement (~03/27/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 Hx of CABG S/P CABG x 1 (~03/27/93) Status post cardiac surgery Social History household members: family Smoking Status: Former smoker alcohol intake: never substance use type: does not use caffeine: No ROS ROS Narrative Review of systems could not be obtained from the patient due to lethargy, medical information was obtained from the patient's daughter Vital Signs Vital Signs Vital Signs: 03/29/23 15:49 03/29/23 15:47 03/29/23 15:57 Temperature 96.9 F L Temperature Source Temporal Pulse Rate 60 Respiratory Rate 12 Respiratory Effort Normal Respiratory Pattern Normal Blood Pressure 100/51 L 110/56 L Blood Pressure Mean 67 74 Blood Pressure Source Blood Pressure Position Blood Pressure Location Pulse Ox 96 Oxygen Delivery Method Room Air 03/29/23 17:43 03/29/23 19:10 03/29/23 19:05 Temperature 96.9 F L 97.7 F L Temperature Source Temporal Oral Pulse Rate 60 60 60 Respiratory Rate 18 14 17 Respiratory Effort Respiratory Pattern Blood Pressure 107/54 L 96/55 L 90/55 L Blood Pressure Mean 71 68 66 Blood Pressure Source Monitor Blood Pressure Position Semi-Fowlers Blood Pressure Location Right Arm Pulse Ox 95 95 93 Oxygen Delivery Method Room Air Room Air Room Air Weight Weight: 67.5 kg Body Mass Index (BMI) 21.3 Physical Exam Const no apparent distress and average body habitus Constitutional Narrative: Patient is lethargic, he is able to answer some simple questions, he is not able to carry on a lengthy conversation with this examiner General Appearance: cooperative, well kempt and well developed Orientation / Consciousness: awake, oriented to person and oriented to place HEENT normocephalic, head/scalp atraumatic, hearing grossly normal bilaterally and moist oral mucous membranes Eyes PERRL, EOMs intact bilaterally and conjunctivae normal Neck supple, no JVD, thyroid normal and no carotid bruits General: trachea midline Resp normal respiratory effort, no retractions, no use of accessory muscles and clear to auscultation bilaterally Auscultation: Negative for rales, rhonchi or wheezes Cardio regular rate, regular rhythm, S1 normal heart sound, S2 normal heart sound, no murmurs, no rub and no gallops GI normal to inspection, nondistended, normoactive bowel sounds, soft to palpation, non-tender and non-distended Extremity no clubbing, cyanosis or edema Skin no rashes or lesions noted General Skin Exam: no breakdown Neuro oriented x3, CN's II-XII intact bilaterally, moves all extremities, no focal motor deficits and no sensory deficits noted Sensorium / Orientation: awake and alert Speech: speech normal Psych Psych Narrative: Patient has a flat affect, he appears appropriate answering simple questions. Results Lab / Micro Data 03/29/23 16:25 03/29/23 16:25 Labs: Laboratory Results - last 24 hr 03/29/23 16:25: WBC 4.2 L, RBC 2.26 L, Hgb 6.6 L, Hct 22.3 L, MCV 98.7 H, MCH 29.2, MCHC 29.6 L, RDW Std Deviation 61.3 H, RDW Coeff of [place] 17.2 H, Plt Count 142 L, MPV 10.8, Immature Gran % (Auto) 0.700, Neut % (Auto) 64.0, Lymph % (Auto) 17.7 L, Reynolds % (Auto) 13.2 H, Eos % (Auto) 3.5, Baso % (Auto) 0.9, Absolute Neuts (auto) 2.7, Absolute Lymphs (auto) 0.75 L, Nucleated RBC % 0, PT 59.4 H, INR 6.7 H*, APTT 81.5 H, Sodium 142, Potassium 4.2, Chloride 108 H, Carbon Dioxide 29.0, Anion Gap 5, BUN 55 H, Creatinine 3.09 H, Estim Creat Clear Calc 18.32, Est GFR (MDRD) Af Amer 25 L, Est GFR (MDRD) Non-Af 21 L, BUN/Creatinine Ratio 17.8, Glucose 122 H, Calcium 9.1, Total Bilirubin 0.60, AST 305 H, ALT 233 H, Alkaline Phosphatase 269 H, Total Protein 6.1 L, Albumin 2.9 L, Globulin 3.2, Albumin/Globulin Ratio 0.9 03/29/23 17:11: Urine Color Yellow, Urine Clarity Sl. Cloudy, Urine pH 6.0, Ur Specific [place] 1.015, Urine Protein 30 H, Urine Glucose (UA) 1000 H, Urine Ketones Negative, Urine Occult Blood 25 H, Urine Nitrite Negative, Urine Bilirubin Negative, Urine Urobilinogen Normal, Ur Leukocyte Esterase Negative, Urine RBC 0-5 SEEN, Urine WBC 0-5 SEEN, Ur Squamous Epith Cells 0 SEEN, Urine Bacteria 0 SEEN, Hyaline Casts 5-10 SEEN, Fine Granular Casts 10-25 SEEN, Urine Mucus 0 SEEN 03/29/23 18:01: Blood Type O POSITIVE, Antibody Screen NEGATIVE Micro: Microbiology 03/29/23 18:05 Stool Stool Occult Blood (COREEN) - Final 03/29/23 16:35 Nasal Secretion SARS-CoV-2 & FLU Antigen (Rapid) - Final Radiology Impression Brain CT 03/29/23 16:17 IMPRESSION: 1. Stable exam. 2. Diffuse involutional changes and chronic microvascular deep white matter disease. 3. No intracranial mass, hemorrhage or acute territorial infarct. 4. No radiographically significant sinus disease.. Electronically Signed: Darien Sims MD at 17:58 EDT , Chest X-Ray 03/29/23 17:15 IMPRESSION: 1. Median sternotomy wires and vascular clips consistent with prior CABG. 2. Removal of previous transvenous pacer, interval placement of RIGHT sided transvenous pacer/AICD system with leads in normal position. 3. No pneumothorax. 4. No congestive failure. 5. Minimal stable atelectasis at the LEFT base. No focal infiltrate or consolidation. Electronically Signed: Darien Sims MD at 17:49 EDT , Assessment & Plan Assessment/Plan (1) Supratherapeutic INR: PLAN: Plan 1. Acute on chronic iron deficiency anemia-patient will be admitted to ICU, he will receive 2 units of packed red blood cells, patient was placed on IV Protonix, he will be seen by gastroenterology and undergo an EGD to rule out bleeding. Labs will be monitored #2 supratherapeutic INR-patient's Coumadin will be held, INR will be rechecked tomorrow #3 ischemic cardiomyopathy-according to [facility] records, patient's ejection fraction was 35%, I have decided not to administer fluids to the patient, labs will be monitored, he will remain on his current cardiac medications with the exception of Lasix. #4 elevated creatinine and BUN-it appears the patient's baseline creatinine was 1.3 in January of this year, I have decided not to administer fluids at this time, creatinine and BUN will be rechecked tomorrow, patient will be receiving 2 units of packed red blood cells. #5 permanent atrial fibrillation-patient's EKG shows a ventricularly paced rhythm with underlying atrial fibrillation, again due to elevated INR, patient's warfarin will be held, he will remain on amiodarone-it appears that he will need to take amiodarone 200 mg 3 times daily for the next 3 days, and then decrease the dosage to 200 mg daily. #6 mechanical aortic valve-again I was advised by cardiology not to administer vitamin K to the patient #7 coronary artery disease-patient had recent stents placed in the LAD. #8 lethargy/mental status change-etiology unclear at this point, supportive care will be given, it does not appear the patient has an active infection or stroke at this time, he does answer some simple questions appropriately but he seems very somnolent and lethargic during my examination. Patient is a DNR CC arrest without intubation-I discussed this with the patient's daughter and the patient today. Total clinical time spent by myself addressing the patient's medical issues, reviewing all of his data, and collaborating with patient's care team: 75 minutes Charges/Coding Visit Charges Inpatient E&M: 22972 Init Hosp L3
[2023-03-29] MEDS: Atorvastatin Calcium 80 MG Tablet PO (21:38)
[2023-03-29] MEDS: Pantoprazole Sodium 40 MG in 0.9% Normal Saline (100mL MB+) 100 ML 330 MG IV (21:38)
[2023-03-29] MEDS: Pregabalin 75 MG Capsule PO (21:38)
[2023-03-29] MEDS: Zolpidem Tartrate 5 MG Tablet 10 MG PO (21:38)
[2023-03-29] MEDS: Amiodarone 200 MG Tablet 400 MG PO (21:38)
[2023-03-29] MEDS: Folic Acid 1 MG Tablet PO (21:38)
[2023-03-30] VITALS (26 sets, daily range): BP systolic 78–124; BP diastolic 39–78; PULSE 58–63; RESP 10–17; TEMP 36.2–36.9; O2SAT 92–100; BMI 21.3
[2023-03-30 06:30] LABS: Absolute Lymphocyte Count 0.71 X10^3/uL (0.83-4.51); Absolute Neutrophil Count 3.9 X10^3/uL (2.0-7.7); Basophil# 0.04 X10^3/uL; Basophil% 0.8 % (0-1); Eosinophil# 0.15 X10^3/uL; Eosinophils% 2.8 % (0-5); Hematocrit 22.4 % (40-54); Hemoglobin 6.6 g/dL (13.0-16.5); Lymphocyte # 0.71 X10^3/ul (0.83-4.51); Lymphocyte % 13.3 % (19-41); Mean Corp Hgb Conc 29.5 g/dL (32-36); Mean Corpuscular Hgb 29.2 pg (27.0-32.0); Mean Corpuscular Volume 99.1 fL (80-94); Monocyte# 0.48 X10^3/uL; NRBC Flagged by Analyzer 0 % (0-5); Neutrophil % 73.2 % (47-70); Platelet Count 147 K/mm3 (150-450); RBC Distribution Width CV 17.3 % (11.6-14.6); RBC Distribution Width SD 61.3 fl (35.1-43.9); Red Blood Count 2.26 M/mm3 (4.6-6.2); White Blood Count 5.3 K/mm3 (4.4-11.0)
[2023-03-30 06:41] LABS: International Normalized Ratio 5.5
--- NOTE | 2023-03-30 08:17 | PCM.PN.HOSP ---
Reason for Visit Reason for Visit: Diagnoses Anemia, unspecified (03/29/23) Abnormal coagulation profile (03/29/23) retirement (current) use of anticoagulants (03/29/23) Subjective Subjective Denies any current complaints. Objective Data Objective Data Vital Signs: Vital Signs Temp Pulse Resp BP Pulse Ox O2 Del Method 36.6 C 60 14 97/40 L 99 Room Air 03/30/23 07:59 03/30/23 07:59 03/30/23 07:59 03/30/23 07:59 03/30/23 07:59 03/30/23 07:59 Oxygen Delivery Method Room Air Weight: 67.5 kg Body Mass Index (BMI) 21.3 Intake & Output: Intake and Output for Last 24 Hours 03/28/23 03/29/23 03/30/23 23:59 23:59 23:59 Intake Total 828.33 / 828.33 Output Total 350 / 350 Balance 828.33 / 628.33 -350 / -350 Lab / Micro Data 03/30/23 05:39 03/30/23 05:39 Labs: Laboratory Results - last 24 hr 03/29/23 16:25: WBC 4.2 L, RBC 2.26 L, Hgb 6.6 L, Hct 22.3 L, MCV 98.7 H, MCH 29.2, MCHC 29.6 L, RDW Std Deviation 61.3 H, RDW Coeff of [place] 17.2 H, Plt Count 142 L, MPV 10.8, Immature Gran % (Auto) 0.700, Neut % (Auto) 64.0, Lymph % (Auto) 17.7 L, [place] % (Auto) 13.2 H, Eos % (Auto) 3.5, Baso % (Auto) 0.9, Absolute Neuts (auto) 2.7, Absolute Lymphs (auto) 0.75 L, Nucleated RBC % 0, PT 59.4 H, INR 6.7 H*, APTT 81.5 H, Sodium 142, Potassium 4.2, Chloride 108 H, Carbon Dioxide 29.0, Anion Gap 5, BUN 55 H, Creatinine 3.09 H, Estim Creat Clear Calc 18.32, Est GFR (MDRD) Af Amer 25 L, Est GFR (MDRD) Non-Af 21 L, BUN/Creatinine Ratio 17.8, Glucose 122 H, Calcium 9.1, Total Bilirubin 0.60, AST 305 H, ALT 233 H, Alkaline Phosphatase 269 H, Total Protein 6.1 L, Albumin 2.9 L, Globulin 3.2, Albumin/Globulin Ratio 0.9 03/29/23 17:11: Urine Color Yellow, Urine Clarity Sl. Cloudy, Urine pH 6.0, Ur Specific [place] 1.015, Urine Protein 30 H, Urine Glucose (UA) 1000 H, Urine Ketones Negative, Urine Occult Blood 25 H, Urine Nitrite Negative, Urine Bilirubin Negative, Urine Urobilinogen Normal, Ur Leukocyte Esterase Negative, Urine RBC 0-5 SEEN, Urine WBC 0-5 SEEN, Ur Squamous Epith Cells 0 SEEN, Urine Bacteria 0 SEEN, Hyaline Casts 5-10 SEEN, Fine Granular Casts 10-25 SEEN, Urine Mucus 0 SEEN 03/29/23 18:01: Blood Type O POSITIVE, Antibody Screen NEGATIVE, Crossmatch See Detail 03/29/23 18:01: Crossmatch See Detail 03/30/23 05:39: WBC 5.3, RBC 2.26 L, Hgb 6.6 L, Hct 22.4 L, MCV 99.1 H, MCH 29.2, MCHC 29.5 L, RDW Std Deviation 61.3 H, RDW Coeff of [place] 17.3 H, Plt Count 147 L, MPV 12.0, Immature Gran % (Auto) 0.900, Neut % (Auto) 73.2 H, Lymph % (Auto) 13.3 L, [place] % (Auto) 9.0, Eos % (Auto) 2.8, Baso % (Auto) 0.8, Absolute Neuts (auto) 3.9, Absolute Lymphs (auto) 0.71 L, Nucleated RBC % 0, PT 51.0 H, INR 5.5 H* Micro: Microbiology 03/29/23 18:05 Stool Stool Occult Blood (COREEN) - Final 03/29/23 16:35 Nasal Secretion SARS-CoV-2 & FLU Antigen (Rapid) - Final Radiography Diagnostic Testing: Radiology Impression Brain CT 03/29/23 16:17 IMPRESSION: 1. Stable exam. 2. Diffuse involutional changes and chronic microvascular deep white matter disease. 3. No intracranial mass, hemorrhage or acute territorial infarct. 4. No radiographically significant sinus disease.. Electronically Signed: Darien Sims MD at 17:58 EDT , Chest X-Ray 03/29/23 17:15 IMPRESSION: 1. Median sternotomy wires and vascular clips consistent with prior CABG. 2. Removal of previous transvenous pacer, interval placement of RIGHT sided transvenous pacer/AICD system with leads in normal position. 3. No pneumothorax. 4. No congestive failure. 5. Minimal stable atelectasis at the LEFT base. No focal infiltrate or consolidation. Electronically Signed: Darien Sims MD at 17:49 EDT , Physical Exam Const alert and no apparent distress HEENT head/scalp atraumatic and moist oral mucous membranes Resp normal respiratory effort, no retractions, no use of accessory muscles and clear to auscultation bilaterally Cardio regular rate and regular rhythm Cardio Narrative: 2/6 systolic click at LUSB. GI normal to inspection, nondistended, normoactive bowel sounds, soft to palpation, non-tender and non-distended Extremity normal to inspection Assessment & Plan Assessment/Plan (1) Acute blood loss anemia: PLAN: Hg 6.6. Ordered 2 units of PRBCs Suspected upper GI source complicated by supratherapeutic INR and clopidogrel Warfarin currently held Given recent PCI, will need to continue clopidogrel On pantoprazole gtt GI consulted. Planning for EGD. (2) Supratherapeutic INR: PLAN: 7.2 on 03/28, 6.7 on 03/29, 5.5 today Cardiology recommending holding vitamin K Takes warfarin 5mg/d. Will require lower dosing upon discharge. (3) SALVADOR (acute kidney injury): PLAN: Creatinine 3.09 on the . Baseline creatinine 1.3. Check urine studies. Follow up BMP. Furosemide currently held (4) Encephalopathy: PLAN: acute No acute process on CT Hold potentiating medications (pregabalin, zolpidem) May be metabolic given multiple medical derrangements PLAN: Plan Chronic complicating conditions: HFrEF ischemic cardiomyopathy-according to [facility] records, patient's ejection fraction was 20-30%. No evidence of acute exacerbation on CXR. Continue metoprolol succinate. permanent atrial fibrillation-warfarin held currently due to supratherapeutic INR and anemia. Continue amiodarone-it appears that he will need to take amiodarone 200 mg 3 times daily for the next 3 days, and then decrease the dosage to 200 mg daily. 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 Cleared by ID then replaced on contralateral side on 03/22. Pt has follow up appointment on 04/07/23. Pt completed antibiotics (doxycycline on 03/20). mechanical aortic valve-Resume anticoagulation when safe. coronary artery disease-patient had recent stents placed in the LAD on 03/11. Pt to continue clopidogrel, then after 1 year, change to ASA. VTE prophylaxis: SCDs Patient is a DNR CC arrest without intubation Greater than 55 minutes of which greater than 50% of the time was reviewing data, reviewing records from [facility] and evaluating patient. Charges/Coding Visit Charges Inpatient E&M: 51537 [facility] Hosp L3
[2023-03-30 09:49] LABS: Anion Gap 5 (5-15); BUN 52 mg/dL (7-18); BUN/Creat Ratio 17.3 RATIO (10-20); Calcium,Total 8.9 mg/dL (8.5-10.1); Chloride 112 mmol/L (98-107); EST Glomerular Filtration Rate 21 mL/min (>60); Est Glom Filt Rate - Afr Amer 26 mL/min (>60); Glucose 110 mg/dL (74-106); Potassium 4.5 mmol/L (3.5-5.1); Sodium Level 143 mmol/L (136-145)
--- NOTE | 2023-03-30 12:24 | OP.CCLET_ITS ---
03/30/2023 Guillermo Pritchard MD [address] [id number] Re : Upper GI endoscopy procedure for Kash Gustabo Dear Dr. Pritchard This procedure was performed on Thursday, March 30, 2023. My impressions and recommendations are as follows: Impressions : - Normal esophagus. - No gross lesions in the entire stomach. - Normal second portion of the duodenum. - No specimens collected. Recommendations : - [facility]. - Resume regular diet. - Continue present medications. My findings are described in the full procedure note, which is enclosed. If I can be of further assistance, please feel free to contact me at . Sincerely, Fazal Muir, 03/30/2023 12:23:57 PM This report has been signed electronically.
--- NOTE | 2023-03-30 12:24 | OP.EGD_ITS ---
Patient Name: Kash Montejo Procedure Date: 03/30/2023 12:16 PM Date of : 1940 Age: 82 Procedure: Upper GI endoscopy Indications: Iron deficiency anemia Providers: Fazal Muir DO Medicines: Monitored Anesthesia Care Patient Profile: This is an 82 year old male. Refer to note in patient chart for documentation of history and physical. Patient has symptoms of acute dyspepsia. Complications: No immediate complications. Procedure: Pre-Anesthesia Assessment: - Prior to the procedure, a History and Physical was performed, and patient medications and allergies were reviewed. The patient is competent. The risks and benefits of the procedure and the sedation options and risks were discussed with the patient. All questions were answered and informed consent was obtained. Patient identification and proposed procedure were verified by the physician in the pre-procedure area. Mental Status Examination: alert and oriented. Airway Examination: normal oropharyngeal airway and neck mobility. Respiratory Examination: clear to auscultation. CV Examination: normal. Prophylactic Antibiotics: The patient does not require prophylactic antibiotics. Prior Anticoagulants: The patient has taken no anticoagulant or antiplatelet agents. ASA Grade Assessment: IV - A patient with severe systemic disease that is a constant threat to life. After reviewing the risks and benefits, the patient was deemed in satisfactory condition to undergo the procedure. The anesthesia plan was to use monitored anesthesia care (MAC). Immediately prior to administration of medications, the patient was re-assessed for adequacy to receive sedatives. The heart rate, respiratory rate, oxygen saturations, blood pressure, adequacy of pulmonary ventilation, and response to care were monitored throughout the procedure. The physical status of the patient was re-assessed after the procedure. After obtaining informed consent, the endoscope was passed under direct vision. Throughout the procedure, the patient's blood pressure, pulse, and oxygen saturations were monitored continuously. The Endoscope was introduced through the mouth, and advanced to the second part of duodenum. The upper GI endoscopy was accomplished without difficulty. The patient tolerated the procedure well. Scope In: 12:17:35 PM Scope Out: 12:21:28 PM Total Procedure Duration Time 0 hours 3 minutes 53 seconds Findings: The examined esophagus was normal. No gross lesions were noted in the entire examined stomach. The second portion of the duodenum was normal. Impression: - Normal esophagus. - No gross lesions in the entire stomach. - Normal second portion of the duodenum. - No specimens collected. Recommendation: - [facility]. - Resume regular diet. - Continue present medications. Procedure Code(s): --- Professional --- 55812, Esophagogastroduodenoscopy, flexible, transoral; diagnostic, including collection of specimen(s) by brushing or washing, when performed (separate procedure) CPT copyright 2021 [employer]. All rights reserved. The codes documented in this report are preliminary and upon pre coder review may be revised to meet current compliance requirements. Fazal Muir DO 03/30/2023 12:23:57 PM This report has been signed electronically. Number of Addenda: 0 Note Initiated On: 03/30/2023 12:16 PM
--- NOTE | 2023-03-30 14:40 | CASEMGMT ---
RN CM Face to Face with patient for initial transition planning/care coordination assessment. RN CM introduced self and role at [facility]. Patient lying in bed, alert and oriented. Patient willing to participate in assessment and is able to answer all questions appropriately. Care providers, pharmacy, and demographics verified. Patient wishes to discharge home, will monitor progress with therapy. Patient states he has no further needs or concerns at this time. CM to follow for discharge planning needs that may arise. PCP: Francheska Specialists: Asael Steven Pharmacy: [facility] Insurance: [employer] [facility] Prescription Benefit: yes Living Will/HPOA: yes, daughter Emily Montejo LNOK: daughter Living Arrangements: Patient lives alone in single story home with ramp to enter. Patient states he is independent at home. Daughter lives just down the street. Transportation: self, daughter DME/HHC: Patient states he has shower chair, raised toilet, cane, walker, rollator, wheelchair, grab bars, pusle ox, and home oxygen through [employer]. No previous SNF. [facility] but was admitted to hospital prior to start of care. Disposition Plan: TBD, anticipate HHC vs SNF pending progress with therapy. Lily RASHID, RN, CM
[2023-03-30] MEDS: Amiodarone 200 MG Tablet 400 MG PO (15:49)
[2023-03-30] MEDS: Ferrous Sulfate 325 MG Tablet PO (16:42)
[2023-03-30] MEDS: Clopidogrel Bisulfate 75 MG Tablet PO (16:42)
[2023-03-30 18:20] LABS: Urea Nitrogen, Urine 645 mg/dL (NO RANGE EST.)
[2023-03-30] MEDS: 0.9% Normal Saline (1000mL) 500 ML 100 ML IV (19:06)
[2023-03-30] MEDS: Ipratropium/Albuterol Sulfate 3 ML AMPUL.NEB INHALATION (19:55)
[2023-03-30 20:30] LABS: Hemoglobin 8.6 g/dL (13.0-16.5)
[2023-03-30] MEDS: Pantoprazole Sodium 40 MG in 0.9% Normal Saline (100mL MB+) 100 ML 330 MG IV (22:04)
[2023-03-30] MEDS: Atorvastatin Calcium 80 MG Tablet PO (22:08)
[2023-03-30] MEDS: Folic Acid 1 MG Tablet PO (22:08)
[2023-03-31] VITALS (12 sets, daily range): BP systolic 88–100; BP diastolic 51–70; PULSE 59–68; RESP 16–18; TEMP 36.4–36.8; O2SAT 94–97
[2023-03-31 05:46] LABS: Absolute Lymphocyte Count 0.66 X10^3/uL (0.83-4.51); Basophil# 0.02 X10^3/uL; Basophil% 0.4 % (0-1); Eosinophil# 0.12 X10^3/uL; Eosinophils% 2.2 % (0-5); Hematocrit 25.6 % (40-54); Hemoglobin 7.9 g/dL (13.0-16.5); Lymphocyte # 0.66 X10^3/ul (0.83-4.51); Lymphocyte % 12.1 % (19-41); Mean Corp Hgb Conc 30.9 g/dL (32-36); Mean Corpuscular Hgb 30.6 pg (27.0-32.0); Mean Corpuscular Volume 99.2 fL (80-94); Mean Platelet Vol. 11.4 fl (6.2-12.0); NRBC Flagged by Analyzer 0.4 % (0-5); Neutrophil # 4.04 X10^3/uL (2.7-7.7); Neutrophil % 73.8 % (47-70); Platelet Count 128 K/mm3 (150-450); RBC Distribution Width CV 17.3 % (11.6-14.6); RBC Distribution Width SD 61.1 fl (35.1-43.9); Red Blood Count 2.58 M/mm3 (4.6-6.2); White Blood Count 5.5 K/mm3 (4.4-11.0)
[2023-03-31 05:55] LABS: International Normalized Ratio 4.5; Prothrombin Time (Protime)PT. 43.1 SECONDS (11.7-14.9)
[2023-03-31 06:13] LABS: Anion Gap 5 (5-15); BUN 44 mg/dL (7-18); BUN/Creat Ratio 16.5 RATIO (10-20); Calcium,Total 8.4 mg/dL (8.5-10.1); Chloride 116 mmol/L (98-107); Creatinine, Serum 2.66 mg/dL (0.70-1.30); EST Glomerular Filtration Rate 24 mL/min (>60); Est Glom Filt Rate - Afr Amer 30 mL/min (>60); Estimated Creatinine Clearance 19.74 ml/min; Glucose 110 mg/dL (74-106); Potassium 4.5 mmol/L (3.5-5.1); Sodium Level 144 mmol/L (136-145)
[2023-03-31] MEDS: Ipratropium/Albuterol Sulfate 3 ML AMPUL.NEB INHALATION ×4 (07:23→20:37)
--- NOTE | 2023-03-31 08:04 | PN.HOSP_ITS ---
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 Objective Data Objective Data Vital Signs: Vital Signs Temp Pulse Resp BP Pulse Ox O2 Del Method O2 Flow Rate 36.6 C 65 17 96/70 97 Room Air 2 03/31/23 03:30 03/31/23 03:30 03/31/23 03:30 03/31/23 03:30 03/31/23 03:30 03/31/23 03:30 03/30/23 20:21 Oxygen Flow Rate (L/min) 2 Oxygen Delivery Method Room Air Weight: 67.5 kg Body Mass Index (BMI) 21.3 Intake & Output: Intake and Output for Last 24 Hours 03/29/23 03/30/23 03/31/23 23:59 23:59 23:59 Intake Total 828.33 / 828.33 1250 / 1570 930 / 930 Output Total 350 / 350 Balance 828.33 / 628.33 900 / 1220 930 / 930 Lab / Micro Data 03/31/23 05:27 03/31/23 05:27 Labs: Laboratory Results - last 24 hr 03/29/23 18:01: Crossmatch See Detail 03/30/23 05:39: Sodium 143, Potassium 4.5, Chloride 112 H, Carbon Dioxide 26.0, Anion Gap 5, BUN 52 H, Creatinine 3.00 H, Estim Creat Clear Calc 17.50, Est GFR (MDRD) Af Amer 26 L, Est GFR (MDRD) Non-Af 21 L, BUN/Creatinine Ratio 17.3, Glucose 110 H, Calcium 8.9 03/30/23 17:35: Urine Creatinine 70.00, Urine Urea Nitrogen 645 03/30/23 20:20: Hgb 8.6 L 03/31/23 05:27: WBC 5.5, RBC 2.58 L, Hgb 7.9 L, Hct 25.6 L, MCV 99.2 H, MCH 30.6, MCHC 30.9 L, RDW Std Deviation 61.1 H, RDW Coeff of Kalyan 17.3 H, Plt Count 128 L, MPV 11.4, Immature Gran % (Auto) 0.500, Neut % (Auto) 73.8 H, Lymph % (Auto) 12.1 L, [place] % (Auto) 11.0 H, Eos % (Auto) 2.2, Baso % (Auto) 0.4, Absolute Neuts (auto) 4.0, Absolute Lymphs (auto) 0.66 L, Nucleated RBC % 0.4, PT 43.1 H, INR 4.5 H*, Sodium 144, Potassium 4.5, Chloride 116 H, Carbon Dioxide 23.0, Anion Gap 5, BUN 44 H, Creatinine 2.66 H, Estim Creat Clear Calc 19.74, Est GFR (MDRD) Af Amer 30 L, Est GFR (MDRD) Non-Af 24 L, BUN/Creatinine Ratio 16.5, Glucose 110 H, Calcium 8.4 L Micro: Microbiology 03/29/23 18:05 Stool Stool Occult Blood (COREEN) - Final 03/29/23 16:35 Nasal Secretion SARS-CoV-2 & FLU Antigen (Rapid) - Final Physical Exam Const alert and no apparent distress HEENT head/scalp atraumatic and moist oral mucous membranes Resp normal respiratory effort, no retractions, no use of accessory muscles and clear to auscultation bilaterally Cardio regular rate, regular rhythm, S1 normal heart sound and S2 normal heart sound GI normal to inspection, nondistended, normoactive bowel sounds, soft to palpation, non-tender and non-distended Assessment & Plan Assessment/Plan (1) Acute blood loss anemia: PLAN: Hg 6.6. Ordered 2 units of PRBCs Suspected upper GI source complicated by supratherapeutic INR and clopidogrel Warfarin currently held Given recent PCI, will need to continue clopidogrel On pantoprazole gtt GI consulted. EGD unremarkable. (2) Supratherapeutic INR: PLAN: 7.2 on 03/28, 6.7 on 03/29, 4.5 today Cardiology recommending holding vitamin K Takes warfarin 5mg/d. Will require lower dosing upon discharge. (3) SALVADOR (acute kidney injury): PLAN: Creatinine 3.09 on the . Baseline creatinine 1.3. Check urine studies. Follow up BMP. Furosemide currently held (4) Encephalopathy: PLAN: acute No acute process on CT Hold potentiating medications (pregabalin, zolpidem) May be metabolic given multiple medical derrangements PLAN: Plan Chronic complicating conditions: * HFrEF ischemic cardiomyopathy-according to [facility] records, patient's ejection fraction was 20-30%. No evidence of acute exacerbation on CXR. Continue metoprolol succinate. * permanent atrial fibrillation-warfarin held currently due to supratherapeutic INR and anemia. Continue amiodarone-it appears that he will need to take amiodarone 200 mg 3 times daily for the next 3 days, and then decrease the dosage to 200 mg daily. 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 Cleared by ID then replaced on contralateral side on 03/22. Pt has follow up appointment on 04/07/23. Pt completed antibiotics (doxycycline on 03/20). * mechanical aortic valve-Resume anticoagulation when safe. * coronary artery disease-patient had recent stents placed in the LAD on 03/11. Pt to continue clopidogrel, then after 1 year, change to ASA. VTE prophylaxis: SCDs Patient is a DNR CC arrest without intubation Disposition: TBD. HHC v SNF. Charges/Coding Visit Charges Inpatient E&M: 39470 Subs Hosp L2
[2023-03-31] MEDS: Pantoprazole Sodium 40 MG in 0.9% Normal Saline (100mL MB+) 100 ML 330 MG IV ×2 (10:20→22:44)
[2023-03-31] MEDS: Cholecalciferol (VIT D3) 25 MCG TABLET (1,000 UNITS) PO (10:26)
[2023-03-31] MEDS: Clopidogrel Bisulfate 75 MG Tablet PO (10:26)
--- NOTE | 2023-03-31 13:46 | NURSING ---
Spoke with pacer nurse Nivia who is familiar with pt. Informed her that there is a dressing with packing to left chest and a dressing to right chest. Per Nivia, pt's left chest is old pacer site that was packed and has sutures that will need removed 2 weeks post op (roughly 04/05). Nivia advised this RN to leave dressing to left chest intact. She also advised this RN to remove dressing from right chest and leave steri-strips intact if they are not heavily soiled. Pt is set to f/u with her.
[2023-03-31] MEDS: Ferrous Sulfate 325 MG Tablet PO ×2 (14:08→16:50)
[2023-03-31] MEDS: Amiodarone 200 MG Tablet 400 MG PO (14:08)
[2023-03-31] MEDS: Folic Acid 1 MG Tablet PO (22:37)
[2023-03-31] MEDS: Atorvastatin Calcium 80 MG Tablet PO (22:37)
[2023-04-01] VITALS (10 sets, daily range): BP systolic 95–134; BP diastolic 61–67; PULSE 58–64; RESP 16–18; TEMP 36.1–36.6; O2SAT 95–98
[2023-04-01 06:08] LABS: Absolute Lymphocyte Count 0.45 X10^3/uL (0.83-4.51); Absolute Neutrophil Count 3.3 X10^3/uL (2.0-7.7); Basophil# 0.03 X10^3/uL; Basophil% 0.7 % (0-1); Eosinophil# 0.14 X10^3/uL; Eosinophils% 3.2 % (0-5); Hematocrit 27.1 % (40-54); Lymphocyte # 0.45 X10^3/ul (0.83-4.51); Lymphocyte % 10.2 % (19-41); Mean Corp Hgb Conc 29.5 g/dL (32-36); Mean Corpuscular Hgb 30.1 pg (27.0-32.0); Mean Corpuscular Volume 101.9 fL (80-94); Mean Platelet Vol. 11.7 fl (6.2-12.0); Monocyte# 0.44 X10^3/uL; Monocyte% 9.9 % (0-10); NRBC Flagged by Analyzer 0 % (0-5); Neutrophil # 3.33 X10^3/uL (2.7-7.7); Neutrophil % 75.1 % (47-70); POSITIVE DIFFERENTIAL YES; POSITIVE MORPHOLOGY YES; Platelet Count 121 K/mm3 (150-450); RBC Distribution Width CV 18.2 % (11.6-14.6); RBC Distribution Width SD 66.7 fl (35.1-43.9); Red Blood Count 2.66 M/mm3 (4.6-6.2); White Blood Count 4.4 K/mm3 (4.4-11.0)
[2023-04-01 06:14] LABS: Differential Indicated SCAN CRITERIA MET
[2023-04-01 06:16] LABS: International Normalized Ratio 3.2; Prothrombin Time (Protime)PT. 33.4 SECONDS (11.7-14.9)
[2023-04-01 06:25] LABS: Anisocytosis 1+; Differential Comment SCANNED; Macrocytosis 1+; Polychromasia RARE
[2023-04-01 06:44] LABS: Anion Gap 4 (5-15); BUN 40 mg/dL (7-18); BUN/Creat Ratio 14.1 RATIO (10-20); Calcium,Total 8.7 mg/dL (8.5-10.1); Chloride 117 mmol/L (98-107); Creatinine, Serum 2.83 mg/dL (0.70-1.30); EST Glomerular Filtration Rate 23 mL/min (>60); Est Glom Filt Rate - Afr Amer 28 mL/min (>60); Estimated Creatinine Clearance 18.55 ml/min; Glucose 143 mg/dL (74-106); Potassium 4.3 mmol/L (3.5-5.1); Sodium Level 145 mmol/L (136-145)
[2023-04-01] MEDS: Ipratropium/Albuterol Sulfate 3 ML AMPUL.NEB INHALATION ×3 (06:47→19:32)
--- NOTE | 2023-04-01 08:20 | PCM.PN.HOSP ---
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 Objective Data Objective Data Vital Signs: Vital Signs Temp Pulse Resp BP Pulse Ox O2 Del Method O2 Flow Rate 36.6 C 58 L 18 95/67 96 Room Air 2 04/01/23 04:04/01/23 04:04/01/23 04:24 04/01/23 04:04/01/23 04:04/01/23 04:03/31/23 08:08 Oxygen Flow Rate (L/min) 2 Oxygen Delivery Method Room Air Weight: 67.5 kg Body Mass Index (BMI) 21.3 Intake & Output: Intake and Output for Last 24 Hours 03/30/23 03/31/23 04/01/23 23:59 23:59 23:59 Intake Total 1250 / 1570 1989 Output Total 350 / 350 1150 / 1150 300 / 300 Balance 900 / 1220 840 / 840 -300 / -300 Lab / Micro Data 04/01/23 05:20 04/01/23 05:20 Labs: Laboratory Results - last 24 hr 04/01/23 05:20: WBC 4.4, RBC 2.66 L, Hgb 8.0 L, Hct 27.1 L, MCV 101.9 H, MCH 30.1, MCHC 29.5 L, RDW Std Deviation 66.7 H, RDW Coeff of Kalyan 18.2 H, Plt Count 121 L, MPV 11.7, Immature Gran % (Auto) 0.900, Neut % (Auto) 75.1 H, Lymph % (Auto) 10.2 L, [place] % (Auto) 9.9, Eos % (Auto) 3.2, Baso % (Auto) 0.7, Absolute Neuts (auto) 3.3, Absolute Lymphs (auto) 0.45 L, Nucleated RBC % 0, Differential Comment SCANNED, Polychromasia RARE, Anisocytosis 1+, Macrocytosis 1+, PT 33.4 H, INR 3.2, Sodium 145, Potassium 4.3, Chloride 117 H, Carbon Dioxide 24.0, Anion Gap 4 L, BUN 40 H, Creatinine 2.83 H, Estim Creat Clear Calc 18.55, Est GFR (MDRD) Af Amer 28 L, Est GFR (MDRD) Non-Af 23 L, BUN/Creatinine Ratio 14.1, Glucose 143 H, Calcium 8.7 Micro: Microbiology 03/29/23 18:05 Stool Stool Occult Blood (COREEN) - Final 03/29/23 16:35 Nasal Secretion SARS-CoV-2 & FLU Antigen (Rapid) - Final Physical Exam Const alert and no apparent distress HEENT head/scalp atraumatic Resp normal respiratory effort, no retractions, no use of accessory muscles and clear to auscultation bilaterally Cardio regular rate, regular rhythm, S1 normal heart sound and S2 normal heart sound GI normal to inspection, nondistended, normoactive bowel sounds, soft to palpation, non-tender and non-distended Extremity normal to inspection Neuro oriented x3, CN's II-XII intact bilaterally, moves all extremities and no focal motor deficits Assessment & Plan Assessment/Plan (1) Acute blood loss anemia: PLAN: Hg 6.6. Ordered 2 units of PRBCs Suspected upper GI source complicated by supratherapeutic INR and clopidogrel Warfarin currently held Given recent PCI, will need to continue clopidogrel On pantoprazole gtt GI consulted. EGD unremarkable. (2) Supratherapeutic INR: PLAN: 7.2 on 03/28, 6.7 on 03/29, 4.5. Now 3.2. Takes warfarin 5mg/d. Will start warfarin at 3 (3) SALVADOR (acute kidney injury): PLAN: Creatinine 3.09 on the . Creatinine from [facility] on 03/25 was 1.33. FEUrea 53.16% renal US shows horseshoe kidney. right renal cyst. (4) Encephalopathy: PLAN: acute No acute process on CT Hold potentiating medications (pregabalin, zolpidem) May be metabolic given multiple medical derrangements PLAN: Plan Chronic complicating conditions: HFrEF ischemic cardiomyopathy-according to [facility] records, patient's ejection fraction was 20-30%. No evidence of acute exacerbation on CXR. Continue metoprolol succinate. permanent atrial fibrillation-warfarin held currently due to supratherapeutic INR and anemia. Continue amiodarone-it appears that he will need to take amiodarone 200 mg 3 times daily for the next 3 days, and then decrease the dosage to 200 mg daily. 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 Cleared by ID then replaced on contralateral side on 03/22. Pt has follow up appointment on 04/07/23. Pt completed antibiotics (doxycycline on 03/20). mechanical aortic valve-Resume anticoagulation when safe. coronary artery disease-patient had recent stents placed in the LAD on 03/11. Pt to continue clopidogrel, then after 1 year, change to ASA. VTE prophylaxis: SCDs Patient is a DNR CC arrest without intubation Disposition: TBD. HHC v SNF. Charges/Coding Visit Charges Inpatient E&M: 05665 Subs Hosp L2
--- NOTE | 2023-04-01 08:25 | US_ITS ---
STUDY: RENAL ULTRASOUND - COMPLETE REASON FOR EXAM: Male, 82 years old. SALVADOR TECHNIQUE: Ultrasound evaluation of the kidneys was performed with real-time and static kenney-scale imaging. COMPARISON: None. FINDINGS: Horseshoe kidneys. RIGHT KIDNEY: Normal location of the right kidney, which is normal in size. The right kidney measures 11.9 cm x 4.5 cm x 3.8 cm. There is a normal cortex of the right kidney. The renal cortex measures 1.1 cm. There is a 2.4 cm x 2.5 cm x 2.5 some mucous cyst. There are no right renal calculi. There is no right hydronephrosis. DISTAL RIGHT URETER: There is non-visualization of the distal right ureter. There is no demonstrated right ureterovesical junction calculus. There is a visualized right ureteral jet. LEFT KIDNEY: Normal location of the left kidney, which is normal in size. The left kidney measures 11 cm x 4.4 cm x 3.8 cm. There is a normal cortex of the left kidney. The renal cortex measures 1.2 cm. There is no left renal mass or cyst. There are no left renal calculi. There is no left hydronephrosis. DISTAL LEFT URETER: There is non-visualization of the distal left ureter. There is no demonstrated left ureterovesical junction calculus. There is no demonstrated left ureteral jet. BLADDER: The distended urinary bladder has a volume of 206 ml. There is a normal wall thickness of the distended urinary bladder. There is no demonstrated mass within the urinary bladder. There are no demonstrated bladder calculi. US/Kidney and Bladder IMPRESSION: Horseshoe kidney. Right renal cyst. Electronically Signed: Tyler Early MD at 12:21 EDT ,
[2023-04-01] MEDS: Pantoprazole Sodium 40 MG in 0.9% Normal Saline (100mL MB+) 100 ML 330 MG IV ×2 (09:08→21:15)
[2023-04-01] MEDS: Metoprolol(XL)Succ 100 MG Tablet PO (09:09)
[2023-04-01] MEDS: Clopidogrel Bisulfate 75 MG Tablet PO (09:09)
[2023-04-01] MEDS: Cholecalciferol (VIT D3) 25 MCG TABLET (1,000 UNITS) PO (09:09)
[2023-04-01] MEDS: Amiodarone 200 MG Tablet PO (09:09)
[2023-04-01] MEDS: 0.9% Normal Saline (1000mL) 1,000 ML 150 ML IV (13:33)
[2023-04-01] MEDS: Ferrous Sulfate 325 MG Tablet PO ×2 (13:34→18:06)
--- NOTE | 2023-04-01 15:29 | CASEMGMT ---
SURY MUNOZ reviewed progress with therapy, patient walked 300 feet contact guard. SURY CM in to discuss discharge plans with patient. Patient would like [facility] and declined list. Referral made and they are able to accept patient with planned start of care for Thursday 04/05. SURY MUNOZ updated patient. Patient had no further questions or concerns at this time.
[2023-04-01] MEDS: Atorvastatin Calcium 80 MG Tablet PO (21:10)
[2023-04-01] MEDS: Folic Acid 1 MG Tablet PO (21:10)
[2023-04-02] MEDS: Acetaminophen 325 MG Tablet 650 MG PO (00:55)
[2023-04-02 03:04] VITALS: BP 106/59; PULSE 60; RESP 16; TEMP 36.6; O2SAT 94
[2023-04-02 07:24] VITALS: PULSE 66; RESP 16; O2SAT 99
[2023-04-02] MEDS: Ipratropium/Albuterol Sulfate 3 ML AMPUL.NEB INHALATION ×2 (07:24→11:21)
[2023-04-02 08:01] LABS: Absolute Lymphocyte Count 0.48 X10^3/uL (0.83-4.51); Absolute Neutrophil Count 3.8 X10^3/uL (2.0-7.7); Basophil# 0.03 X10^3/uL; Basophil% 0.6 % (0-1); Eosinophil# 0.19 X10^3/uL; Eosinophils% 3.9 % (0-5); Hematocrit 27.9 % (40-54); Hemoglobin 8.4 g/dL (13.0-16.5); Lymphocyte # 0.48 X10^3/ul (0.83-4.51); Lymphocyte % 9.8 % (19-41); Mean Corp Hgb Conc 30.1 g/dL (32-36); Mean Corpuscular Hgb 30.9 pg (27.0-32.0); Mean Corpuscular Volume 102.6 fL (80-94); Mean Platelet Vol. 11.8 fl (6.2-12.0); Monocyte% 8.2 % (0-10); NRBC Flagged by Analyzer 0 % (0-5); Neutrophil # 3.75 X10^3/uL (2.7-7.7); Neutrophil % 76.9 % (47-70); POSITIVE DIFFERENTIAL YES; POSITIVE MORPHOLOGY YES; Platelet Count 132 K/mm3 (150-450); RBC Distribution Width CV 18.6 % (11.6-14.6); RBC Distribution Width SD 69.4 fl (35.1-43.9); Red Blood Count 2.72 M/mm3 (4.6-6.2); White Blood Count 4.9 K/mm3 (4.4-11.0)
[2023-04-02 08:04] LABS: Differential Indicated SCAN CRITERIA MET
--- NOTE | 2023-04-02 08:05 | PN.HOSP_ITS ---
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 No events overnight. Objective Data Objective Data Vital Signs: Vital Signs Temp Pulse Resp BP Pulse Ox O2 Del Method O2 Flow Rate 36.6 C 60 16 106/59 L 94 Room Air 2 04/02/23 03:04 04/02/23 03:04 04/02/23 03:04 04/02/23 03:04 04/02/23 03:04 04/02/23 08:01 03/31/23 08:08 Oxygen Flow Rate (L/min) 2 Oxygen Delivery Method Room Air Weight: 67.5 kg Body Mass Index (BMI) 21.3 Intake & Output: Intake and Output for Last 24 Hours 03/31/23 04/01/23 04/02/23 23:59 23:59 23:59 Intake Total 1989 / 1989 2180 / 2180 Output Total 1150 / 1150 1050 / 1050 200 / 200 Balance 840 / 840 1130 / 1130 -200 / -200 Lab / Micro Data 04/02/23 07:12 04/02/23 07:12 Labs: Laboratory Results - last 24 hr 03/29/23 18:01: Crossmatch See Detail 04/02/23 07:12: WBC 4.9, RBC 2.72 L, Hgb 8.4 L, Hct 27.9 L, MCV 102.6 H, MCH 30.9, MCHC 30.1 L, RDW Std Deviation 69.4 H, RDW Coeff of Kalyan 18.6 H, Plt Count 132 L, MPV 11.8, Immature Gran % (Auto) 0.600, Neut % (Auto) 76.9 H, Lymph % (Au to) 9.8 L, [place] % (Auto) 8.2, Eos % (Auto) 3.9, Baso % (Auto) 0.6, Absolute Neuts (auto) 3.8, Absolute Lymphs (auto) 0.48 L, Nucleated RBC % 0 Micro: Microbiology 03/29/23 18:05 Stool Stool Occult Blood (COREEN) - Final 03/29/23 16:35 Nasal Secretion SARS-CoV-2 & FLU Antigen (Rapid) - Final Radiography Diagnostic Testing: Radiology Impression Renal Ultrasound 04/01/23 08:25 IMPRESSION: Horseshoe kidney. Right renal cyst. Electronically Signed: Tyler Early MD at 12:21 EDT , Physical Exam Const alert and no apparent distress Resp normal respiratory effort, no retractions, no use of accessory muscles and clear to auscultation bilaterally Cardio regular rate, regular rhythm, S1 normal heart sound and S2 normal heart sound GI normal to inspection, nondistended, normoactive bowel sounds, soft to palpation and non-tender Extremity Extremity Narrative: left chest pacer site open with packing. no surrounding erythema. right chest pa cer site well approximated. boggy, but no erythema nor induration. Assessment & Plan Assessment/Plan (1) Acute blood loss anemia: PLAN: Hg 6.6. Ordered 2 units of PRBCs Suspected upper GI source complicated by supratherapeutic INR and clopidogrel Warfarin currently held Given recent PCI, will need to continue clopidogrel On pantoprazole gtt GI consulted. EGD unremarkable. (2) Supratherapeutic INR: PLAN: 7.2 on 03/28, 6.7 on 03/29, 4.5. 3.2. 2.8 Takes warfarin 5mg/d. Will start warfarin at 3 (3) SALVADOR (acute kidney injury): PLAN: Creatinine 3.09 on the . Creatinine from [facility] on 03/25 was 1.33. FEUrea 53.16% renal US shows horseshoe kidney. right renal cyst. Hold furosemide Overall, improving. (4) Encephalopathy: PLAN: acute and now resolved. No acute process on CT Hold potentiating medications (pregabalin, zolpidem) May be metabolic given multiple medical derrangements PLAN: Plan Chronic complicating conditions: * HFrEF ischemic cardiomyopathy-according to [facility] records, patient's ejection fraction was 20-30%. No evidence of acute exacerbation on CXR. Continue metoprolol succinate. * permanent atrial fibrillation-warfarin held currently due to supratherapeutic INR and anemia. Continue amiodarone-it appears that he will need to take amiodarone 200 mg 3 times daily for the next 3 days, and then decrease the dosage to 200 mg daily. 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 Cleared by ID then replaced on contralateral side on 03/22. Pt has follow up appointment on 04/07/23. Pt completed antibiotics (doxycycline on 03/20). * mechanical aortic valve-Resume anticoagulation when safe. * coronary artery disease-patient had recent stents placed in the LAD on 03/11. Pt to continue clopidogrel, then after 1 year, change to ASA. VTE prophylaxis: SCDs Patient is a DNR CC arrest without intubation Disposition: to home w [facility]
[2023-04-02 08:07] LABS: International Normalized Ratio 2.8; Prothrombin Time (Protime)PT. 29.6 SECONDS (11.7-14.9)
[2023-04-02 08:22] LABS: Anion Gap 4 (5-15); BUN 32 mg/dL (7-18); BUN/Creat Ratio 13.6 RATIO (10-20); Calcium,Total 8.7 mg/dL (8.5-10.1); Chloride 118 mmol/L (98-107); Creatinine, Serum 2.36 mg/dL (0.70-1.30); EST Glomerular Filtration Rate 28 mL/min (>60); Est Glom Filt Rate - Afr Amer 34 mL/min (>60); Estimated Creatinine Clearance 22.25 ml/min; Glucose 100 mg/dL (74-106); Potassium 4.2 mmol/L (3.5-5.1); Sodium Level 146 mmol/L (136-145)
[2023-04-02 08:38] LABS: Anisocytosis 1+; Hypochromasia 1+
[2023-04-02 09:00] VITALS: BP 122/61; PULSE 60; RESP 16; TEMP 36.5; O2SAT 94
[2023-04-02] MEDS: Pantoprazole Sodium 40 MG in 0.9% Normal Saline (100mL MB+) 100 ML 330 MG IV (09:07)
[2023-04-02 09:08] VITALS: BP 122/61; PULSE 60
[2023-04-02] MEDS: Metoprolol(XL)Succ 100 MG Tablet PO (09:08)
[2023-04-02] MEDS: Amiodarone 200 MG Tablet PO (09:08)
[2023-04-02] MEDS: Clopidogrel Bisulfate 75 MG Tablet PO (09:08)
[2023-04-02] MEDS: Cholecalciferol (VIT D3) 25 MCG TABLET (1,000 UNITS) PO (09:09)
[2023-04-02] MEDS: 0.9% Saline Lock 10 ML Syringe IV (09:11)
--- NOTE | 2023-04-02 10:19 | PCM.DC.SUM ---
Providers Date of Admission: 03/29/23 Primary Care Physician: Dr. Guillermo Pritchard MD Consultations 03/29/23 19:58 Consult: Gastroenterology Routine Consulting Provider: [facility] Reason for Consult: need for EGD EMERGENT Consult: No MD Notified: Yes Date Notified: 03/29/23 Time Notified: 19:31 Method of Notification: Verbal Reason For Visit: ANEMIA, SUPRTHERAPEUTIC INR Diagnosis Discharge Diagnosis (1) Acute blood loss anemia: Status: Acute Code(s): D62 - Acute posthemorrhagic anemia Plan: Hg 6.6. Ordered 2 units of PRBCs Suspected upper GI source complicated by supratherapeutic INR and clopidogrel Warfarin currently held Given recent PCI, will need to continue clopidogrel On pantoprazole gtt GI consulted. EGD unremarkable. (2) Supratherapeutic INR: Status: Acute Code(s): R79.1 - Abnormal coagulation profile Plan: 7.2 on 03/28, 6.7 on 03/29, 4.5. 3.2. 2.8 Takes warfarin 7.5 mg/day on Tuesday and then 5 mg on other days. We will have the patient continue with 5 mg moving forward. (3) SALVADOR (acute kidney injury): Status: Acute Code(s): N17.9 - Acute kidney failure, unspecified Plan: Creatinine 3.09 on the . Creatinine from [facility] on 03/25 was 1.33. FEUrea 53.16% renal US shows horseshoe kidney. right renal cyst. Hold furosemide Overall, improving. (4) Encephalopathy: Status: Acute Code(s): G93.40 - Encephalopathy, unspecified Plan: acute and now resolved. No acute process on CT Hold potentiating medications (pregabalin, zolpidem) May be metabolic given multiple medical derrangements Plan Chronic complicating conditions: HFrEF ischemic cardiomyopathy-according to [facility] records, patient's ejection fraction was 20-30%. No evidence of acute exacerbation on CXR. Continue metoprolol succinate. permanent atrial fibrillation-warfarin held currently due to supratherapeutic INR and anemia. Continue amiodarone-it appears that he will need to take amiodarone 200 mg 3 times daily for the next 3 days, and then decrease the dosage to 200 mg daily. 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 Cleared by ID then replaced on contralateral side on 03/22. Pt has follow up appointment on 04/07/23. Pt completed antibiotics (doxycycline on 03/20). mechanical aortic valve-Resume anticoagulation when safe. coronary artery disease-patient had recent stents placed in the LAD on 03/11. Pt to continue clopidogrel, then after 1 year, change to ASA. VTE prophylaxis: SCDs Patient is a DNR CC arrest without intubation Disposition: to home w [facility] Medications at Discharge Home Medications albuterol sulfate 90 mcg/actuation breath activated powder inhaler 2 puff inhalation Q4H PRN Shortness Of Breath 09/25/15 cholecalciferol (vitamin D3) 25 mcg (1,000 unit) tablet 1,000 unit PO DAILY SUPPLEMENT 09/25/15 folic acid 1 mg tablet 1 mg PO QHS SUPPLEMENT 06/24/16 pantoprazole 40 mg tablet,delayed release 40 mg PO BID ACID REFLUX 01/02/18 tiotropium 2.5 mcg-olodaterol 2.5 mcg/actuation mist for inhalation (Stiolto Respimat) 1 puff inhalation BID ASTHMA 06/18/21 ipratropium 0.5 mg-albuterol 3 mg (2.5 mg base)/3 mL nebulization soln 3 ml inhalation 4X/DAY SHORTNESS OF BREATH 11/25/21 ferrous sulfate 325 mg (65 mg iron) tablet 325 mg PO BID IRON SUPPLEMENT 04/06/22 buprenorphine 15 mcg/hour weekly transdermal patch 15 mcg transdermal FULLER PAIN 08/24/22 nitroglycerin 0.4 mg sublingual tablet 0.4 mg sublingual Q5M PRN Chest Pain #25 tabs 09/17/22 amiodarone 200 mg tablet 400 mg PO Q8H afib 03/28/23 clopidogrel 75 mg tablet 75 mg PO DAILY 03/29/23 empagliflozin 10 mg tablet (Jardiance) 10 mg PO DAILY 03/29/23 metoprolol succinate 100 mg tablet,extended release 24 hr 100 mg PO Q12H 03/29/23 rosuvastatin 40 mg tablet (Crestor) 40 mg PO DAILY 03/29/23 warfarin 5 mg tablet 5 mg PO DAILY BLOOD THINNER #90 tabs 04/02/23 Hospital Course Operations None Procedures None Summary of Care Provided Minutes Spent on Discharge: 35 Hospital Course: Patient presents with lethargy. Patient was found to be anemic and received 2 units packed red blood cells. GI was consulted and patient underwent EGD that showed no acute process. INR was supratherapeutic but cardiology had recommended no treatment for that. Patient is on warfarin for a new mechanical aortic valve. INR has drifted down and patient has been resumed on Coumadin. Patient was taking a mixed regimen of warfarin at home with 7.5 mg and 5 mg on alternating days. Advised the patient continue with 5 mg moving forward and have that followed up as outpatient. Patient also had acute kidney injury seems more consistent with an ischemic ATN. Did slowly improve. Ultrasound of his kidneys was unremarkable. Patient will be discontinuing his furosemide as well. Patient with lethargic upon arrival and that is improved. Patient advised to hold his pregabalin and zolpidem. Weight / BMI Weight Weight: 67.5 kg Body Mass Index (BMI) 21.3 ABG / Lab / Microbiology Data 04/02/23 07:12 04/02/23 07:12 Laboratory: Laboratory Results - last 24 hr 03/29/23 18:01: Crossmatch See Detail 04/02/23 07:12: WBC 4.9, RBC 2.72 L, Hgb 8.4 L, Hct 27.9 L, MCV 102.6 H, MCH 30.9, MCHC 30.1 L, RDW Std Deviation 69.4 H, RDW Coeff of Kalyan 18.6 H, Plt Count 132 L, MPV 11.8, Immature Gran % (Auto) 0.600, Neut % (Auto) 76.9 H, Lymph % (Auto) 9.8 L, Ector % (Auto) 8.2, Eos % (Auto) 3.9, Baso % (Auto) 0.6, Absolute Neuts (auto) 3.8, Absolute Lymphs (auto) 0.48 L, Nucleated RBC % 0, Hypochromasia 1+, Anisocytosis 1+, PT 29.6 H, INR 2.8, Sodium 146 H, Potassium 4.2, Chloride 118 H, Carbon Dioxide 24.0, Anion Gap 4 L, BUN 32 H, Creatinine 2.36 H, Estim Creat Clear Calc 22.25, Est GFR (MDRD) Af Amer 34 L, Est GFR (MDRD) Non-Af 28 L, BUN/Creatinine Ratio 13.6, Glucose 100, Calcium 8.7 Microbiology: Microbiology 03/29/23 18:05 Stool Stool Occult Blood (COREEN) - Final 03/29/23 16:35 Nasal Secretion SARS-CoV-2 & FLU Antigen (Rapid) - Final Radiography Diagnostic Testing: Radiology Impression Renal Ultrasound 04/01/23 08:25 IMPRESSION: Horseshoe kidney. Right renal cyst. Electronically Signed: Tyler Early MD at 12:21 EDT , D/C Instructions Discharge Diet: Low fat / Low cholesterol and 2000 mg Sodium Diet Additional Dressing/Incision Instructions: pack left chest wound until healed. cover with gauze. Meaningful Use Info Meaningful Use Diagnoses (Choose all that apply): None applicable Discharge Plan Admission Admit Date/Time: 03/29/23 19:22 Primary Reason for Your Visit: anemia. Attending Provider: Pancho Mantilla Primary Care Provider: Guillermo Pritchard Consulting Providers: Jerad Nichole Instructions Additional Instructions / Restrictions: You presented with anemia. He received 2 units of blood. Hemoglobin has been stable. The EGD that you had was unremarkable.. Its unclear where your bleeding came from but hemoglobins been stable after transfusions. Your INR was very high upon arrival. At home you are taking mix of 5 mg and 7.5 mg of warfarin. Your INR is improved, I recommend that you continue with warfarin but to take it 5 mg daily. You will need to have close follow-up with your primary care provider regards to management of your INR. He also had acute kidney injury but that has gotten better. Recommend holding off on taking any more furosemide (lasix). Continue with routine wound care of your left chest pacemaker site. Continue packing until that is healed and covered with gauze. 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 You presented to the hospital confused. I recommend discontinuing your pregabalin and zolpidem. Discharge Orders/Prescriptions Prescriptions: Continued ipratropium-albuterol 0.5 mg-3 mg(2.5 mg base)/3 mL solution for nebulization 3 ml INHALATION 4X/DAY pantoprazole 40 mg tablet,delayed release (DR/EC) 40 mg PO BID cholecalciferol (vitamin D3) 1,000 UNIT tablet 1,000 unit PO DAILY albuterol sulfate 90 MCG aerosol powdr breath activated 2 puff INHALATION Q4H PRN (Reason: Shortness Of Breath) Patient Comments: folic acid 1 MG tablet 1 mg PO QHS Stiolto Respimat 2.5-2.5 mcg/actuation Mist 1 puff INHALATION BID ferrous sulfate 325 MG tablet 325 mg PO BID Patient Comments: iron supplement buprenorphine 15 mcg/hour patch weekly 15 mcg transdermal FULLER clopidogrel 75 mg tablet 75 mg PO DAILY Jardiance 10 mg tablet 10 mg PO DAILY Patient Comments: TAKE 1 TABLET BY MOUTH DAILY metoprolol succinate 100 mg tablet extended release 24 hr 100 mg PO Q12H Patient Comments: Take 1 tablet by mouth every 12 hours. rosuvastatin [Crestor] 40 mg tablet 40 mg PO DAILY amiodarone 200 mg tablet 400 mg PO Q8H Rx Instructions: take two tabs (400mg) PO x one week, to end on 03/31/23. Then take one tab 200mg Daily thereafter Changed warfarin 5 mg tablet 5 mg PO DAILY Qty: 90 3RF Protocol: Dose Management Condition: Tuesday Dose/Route: 5 mg Instruction: 1 x 5 mg tablet Condition: Tuesday Dose/Route: 0 mg Instruction: 0 tablets Condition: Tuesday Dose/Route: 0 mg Instruction: 0 tablets Condition: Tuesday Dose/Route: 0 mg Instruction: 0 tablets Condition: Dose/Route: 2.5 mg Instruction: 0.5 x 5 mg tablets Condition: Tuesday Dose/Route: 2.5 mg Instruction: 0.5 x 5 mg tablets Condition: Tuesday Dose/Route: 2.5 mg Instruction: 0.5 x 5 mg tablets Protocol Text: Adjustment Start Date: Tuesday03/28/23 INR Value: 7.2 INR Date: 03/28/23 Recheck Date: 03/31/23 Discontinued furosemide 40 mg tablet 40 mg PO QODAY zolpidem 10 MG tablet 10 mg PO QHS pregabalin 75 MG capsule 75 mg PO TID warfarin 7.5 mg tablet 7.5 mg PO .COMPLEX Qty: 90 3RF Protocol: Dose Management Condition: Tuesday Dose/Route: 5 mg Instruction: 1 x 5 mg tablet Condition: Tuesday Dose/Route: 0 mg Instruction: 0 tablets Condition: Tuesday Dose/Route: 0 mg Instruction: 0 tablets Condition: Tuesday Dose/Route: 0 mg Instruction: 0 tablets Condition: Dose/Route: 2.5 mg Instruction: 0.5 x 5 mg tablets Condition: Tuesday Dose/Route: 2.5 mg Instruction: 0.5 x 5 mg tablets Condition: Tuesday Dose/Route: 2.5 mg Instruction: 0.5 x 5 mg tablets Protocol Text: Adjustment Start Date: Tuesday03/28/23 INR Value: 7.2 INR Date: 03/28/23 Recheck Date: 03/31/23 Rx Instructions: 7.5 mg orally on Tue, , Tue; takes a 5 mg pill all other days of the week; give 90 tablets as dose changes often; No Action nitroglycerin 0.4 mg tablet, sublingual 0.4 mg SUBLINGUAL Q5M PRN (Reason: Chest Pain) Qty: 25 3RF Referrals / Follow Up: [facility] [Provider Group] - 04/04/23 11:00 am [facility] [Provider Group] - 04/07/23 8:30 am Guillermo Pritchard MD [Primary Care Provider] - Within 2 Weeks Disposition Disposition (needs filled in before D/C Order can be placed): Home Health Service Charges/Coding Visit Charges Inpatient E&M: 35660 Disch Hosp >30min
[2023-04-02 12:50] VITALS: BP 107/55; PULSE 64; RESP 16; TEMP 36.6; O2SAT 100
[2023-04-02] MEDS: Ferrous Sulfate 325 MG Tablet PO (12:54)
--- NOTE | 2023-04-02 14:16 | NURSING ---
Reviewed charting with Yasmany Yin RN
== END 2023-04-02 13:28 | disposition home health service (06) | DRG 811 ==
LOC: ED 18:19 → PCU 20:02
PROVIDERS: Internal Medicine Gastroenterology; Admitting Provider Internal Medicine; Emergency Provider Emergency Medicine; PCP Family Medicine
PROC: 0DJ08ZZ Inspection of Upper Intestinal Tract, Via Natural or Artificial Opening Endoscopic (ICD-10-PCS; CPT 43235; principal; 2023-03-30 16:35)
DX: D62 Acute posthemorrhagic anemia (principal); G93.41 Metabolic encephalopathy; N17.9 Acute kidney failure, unspecified; I13.0 Hypertensive heart and chronic kidney disease with heart failure and stage 1 through stage 4 chronic kidney disease, or unspecified chronic kidney disease; I50.22 Chronic systolic (congestive) heart failure; I48.21 Permanent atrial fibrillation; N18.31 Chronic kidney disease, stage 3a; J44.9 Chronic obstructive pulmonary disease, unspecified; D50.9 Iron deficiency anemia, unspecified; E78.00 Pure hypercholesterolemia, unspecified; I25.5 Ischemic cardiomyopathy; I25.10 Atherosclerotic heart disease of native coronary artery without angina pectoris; Z95.2 Presence of prosthetic heart valve; Q63.1 Lobulated, fused and horseshoe kidney; N28.1 Cyst of kidney, acquired; G89.4 Chronic pain syndrome; R79.1 Abnormal coagulation profile; Z66 Do not resuscitate; Z79.01 Long term (current) use of anticoagulants; Z79.02 Long term (current) use of antithrombotics/antiplatelets; Z79.899 Other long term (current) drug therapy; Z87.891 Personal history of nicotine dependence; Z95.0 Presence of cardiac pacemaker; Z95.5 Presence of coronary angioplasty implant and graft
CPT/HCPCS: 36415; 70450; 71045; 76770; 80048; 80053; 81001; 82274; 82570; 84540; 85018; 85025; 85610; 85730; 86850; 86900; 86901; 86902; 86920; 86922; 87428; 93005; 94640; 97110; 97162; 97530; 99285; 99406; J7030; J7040; P9016; A4216; J2405

== ENCOUNTER 2023-04-04 11:13 | Outpatient (CLI) | payer MEDICARE, SELFPAY ==
[2023-04-04 12:07] LABS: BNP,B-Type NATRIURETIC PEPTIDE 885.4 pg/mL (0-100)
[2023-04-04 12:35] LABS: Absolute Lymphocyte Count 0.61 X10^3/uL (0.83-4.51); Absolute Neutrophil Count 4.7 X10^3/uL (2.0-7.7); Basophil# 0.05 X10^3/uL; Basophil% 0.8 % (0-1); Eosinophil# 0.18 X10^3/uL; Hematocrit 29.3 % (40-54); Hemoglobin 8.8 g/dL (13.0-16.5); Lymphocyte # 0.61 X10^3/ul (0.83-4.51); Lymphocyte % 10.1 % (19-41); Mean Corpuscular Hgb 30.6 pg (27.0-32.0); Mean Corpuscular Volume 101.7 fL (80-94); Mean Platelet Vol. 11.2 fl (6.2-12.0); Monocyte# 0.49 X10^3/uL; Monocyte% 8.1 % (0-10); NRBC Flagged by Analyzer 0 % (0-5); Neutrophil # 4.69 X10^3/uL (2.7-7.7); Neutrophil % 77.7 % (47-70); POSITIVE MORPHOLOGY YES; Platelet Count 142 K/mm3 (150-450); RBC Distribution Width CV 18.4 % (11.6-14.6); RBC Distribution Width SD 68.6 fl (35.1-43.9); Red Blood Count 2.88 M/mm3 (4.6-6.2)
[2023-04-04 12:37] LABS: Differential Indicated SCAN CRITERIA MET
[2023-04-04 12:41] LABS: International Normalized Ratio 4.1; Prothrombin Time (Protime)PT. 40.7 SECONDS (11.7-14.9)
[2023-04-04 13:07] LABS: Anisocytosis 1+
[2023-04-04 13:14] LABS: AST(SGOT) 42 U/L (15-37); Alanine Aminotransfer ALT/SGPT 67 U/L (16-61); Albumin, Serum 3.3 g/dL (3.2-5.0); Alkaline Phosphatase 193 U/L (45-117); Anion Gap 8 (5-15); BUN 30 mg/dL (7-18); BUN/Creat Ratio 12.7 RATIO (10-20); Calcium,Total 8.8 mg/dL (8.5-10.1); Chloride 112 mmol/L (98-107); Creatinine, Serum 2.36 mg/dL (0.70-1.30); EST Glomerular Filtration Rate 28 mL/min (>60); Est Glom Filt Rate - Afr Amer 34 mL/min (>60); Ferritin 39 ng/mL (26-388); Globulin 3.2 g/dL (2.2-4.2); Glucose 102 mg/dL (74-106); Protein, Total 6.5 g/dL (6.4-8.2); Sodium Level 143 mmol/L (136-145)
[2023-04-05 15:08] LABS: Anti-Mitochondrial AB <20.0 Units (0.0-20.0); Anti-Smooth Muscle ABS 4 Units (0-19)
== END 2023-04-04 23:59 | disposition home or self-care (01) ==
LOC: LAB 11:15
PROVIDERS: PCP Family Medicine; Referring Provider Internal Medicine Gastroenterology; Visit Provider Internal Medicine Gastroenterology
DX: D50.0 Iron deficiency anemia secondary to blood loss (chronic) (principal); I50.9 Heart failure, unspecified; G93.40 Encephalopathy, unspecified; D64.9 Anemia, unspecified
CPT/HCPCS: 36415; 80053; 82140; 82728; 83516; 83880; 85025; 85610

== ENCOUNTER 2023-04-04 18:59 | Emergency (ER) | payer MEDICARE, SELFPAY ==
[2023-04-04 19:02] VITALS: BP 127/53; PULSE 62; RESP 20; TEMP 36.4; O2SAT 100; BMI 23.2
[2023-04-04 19:08] VITALS: BP 127/53; PULSE 67; RESP 19; O2SAT 100
--- NOTE | 2023-04-04 19:37 | ED.VIS.GI ---
HPI HPI - GI History of Present Illness Chief Complaint: Abd Pain Informant: patient and family Abdominal Pain/Flank Pain Onset: Today and Yesterday Context: Gradual Onset Timing: Continuous Quality: Cramping Location: - (Suprapubic) Current Severity: Mild Maximum Severity: Mild Worsened by: Nothing Relieved by: Nothing Nausea/Vomiting/Emesis GI Symptom: Positive for Nausea Severity: Mild Diarrhea/Melena/Hematochezia GI Symptom: Positive for Hematochezia and - (Dark stool. Patient is on iron.); Negative for Diarrhea Onset: Today Severity: Mild Associated Symptoms Associated Symptoms: Negative for Dysuria, Frequency, Hematuria or Urgency Narrative Narrative: 82-year-old male extensive past medical history on Coumadin due to mechanical valve, CAD with stents, chronic anemia, chronic kidney disease, A-fib. Recent hospitalization at [facility] where he had a pacemaker replacement became infected he was in the hospital around 4 weeks. He came home and he was readmitted here for anemia and transfusion. Yesterday and today has had suprapubic abdominal pain. With nausea and vomiting yesterday at its improved today. No fever. No dysuria. He has dark stool he is currently on iron. He has had recent endoscopy they could not find any bleeding source. Prior similar symptoms: Yes Recent Illness/Hospitalization: Yes PFSH [facility] Medical History Acute respiratory failure with hypoxia Ambulates with cane Anemia due to chronic blood loss Anticoagulant long-term use Arthritis Asthma Atherosclerotic heart disease of [place] coronary artery without angina pectoris Atrial fibrillation Back pain Back pain due to injury Cardiology follow-up encounter Chest pain CHF (congestive heart failure) Chronic airway obstruction Chronic anticoagulation Chronic cough Chronic pain Chronic pain syndrome Chronic systolic (congestive) heart failure COPD (chronic obstructive pulmonary disease) COPD (chronic obstructive pulmonary disease) Coronary artery disease Difficulty swallowing Erosion of pacemaker pocket due to and not concurrent with implantation of cardiac pacemaker Essential hypertension Former smoker Gastric reflux GERD (gastroesophageal reflux disease) Heart attack High cholesterol History of echocardiogram History of edema History of GI bleed History of heart attack History of pain when walking History of stress test Hx of fracture of ankle Hx of fracture of ankle Hypertension ICD (implantable cardioverter-defibrillator) in place Injury of back Injury of head and neck Intermittent complete heart block Irregular heartbeat Ischemic cardiomyopathy 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 On home oxygen therapy Osteoporosis Paroxysmal atrial fibrillation Pericardial effusion after operative procedure Perirectal abscess Persistent atrial fibrillation Presence of cardiac pacemaker Pure hypercholesterolemia Restless legs Secondary pulmonary arterial hypertension Shortness of breath on exertion Sick sinus syndrome Smoker Spinal stenosis of lumbar region Stage 3a chronic kidney disease (CKD) Stroke Symptomatic bradycardia TIA (transient ischemic attack) Tobacco use disorder Uncontrolled pain Wears dentures Wears glasses Home Medications albuterol sulfate 90 mcg/actuation breath activated powder inhaler 2 puff inhalation Q4H PRN Shortness Of Breath 09/25/15 [History Last Taken 08/23/22] cholecalciferol (vitamin D3) 25 mcg (1,000 unit) tablet 1,000 unit PO DAILY SUPPLEMENT 09/25/15 [History Last Taken 08/24/22] folic acid 1 mg tablet 1 mg PO QHS SUPPLEMENT 06/24/16 [History Last Taken 08/23/22] pantoprazole 40 mg tablet,delayed release 40 mg PO BID ACID REFLUX 01/02/18 [History Last Taken 08/24/22] tiotropium 2.5 mcg-olodaterol 2.5 mcg/actuation mist for inhalation (Stiolto Respimat) 1 puff inhalation BID ASTHMA 06/18/21 [History Last Taken 08/24/22] ipratropium 0.5 mg-albuterol 3 mg (2.5 mg base)/3 mL nebulization soln 3 ml inhalation 4X/DAY SHORTNESS OF BREATH 11/25/21 [History Last Taken 04/06/22] ferrous sulfate 325 mg (65 mg iron) tablet 325 mg PO BID IRON SUPPLEMENT 04/06/22 [History Last Taken 08/24/22] buprenorphine 15 mcg/hour weekly transdermal patch 15 mcg transdermal FULLER PAIN 08/24/22 [History Last Taken 08/15/22] nitroglycerin 0.4 mg sublingual tablet 0.4 mg sublingual Q5M PRN Chest Pain #25 tabs 09/17/22 [Rx Last Taken Unknown] amiodarone 200 mg tablet 400 mg PO Q8H afib 03/28/23 [History Last Taken Unknown] clopidogrel 75 mg tablet 75 mg PO DAILY antiplatelet 03/29/23 [History Last Taken Unknown] empagliflozin 10 mg tablet (Jardiance) 10 mg PO DAILY heart health 03/29/23 [History Last Taken Unknown] metoprolol succinate 100 mg tablet,extended release 24 hr 100 mg PO Q12H blood pressure 03/29/23 [History Last Taken Unknown] rosuvastatin 40 mg tablet (Crestor) 40 mg PO DAILY cholesterol 03/29/23 [History Last Taken Unknown] warfarin 5 mg tablet 5 mg PO DAILY BLOOD THINNER #90 tabs 04/02/23 [Rx Last Taken Unknown] lactulose 10 gram/15 mL (15 mL) oral solution 20 g (30 mL) PO DAILY #1,440 mL 04/04/23 [Rx Last Taken Unknown] Allergy/AdvReac Type Severity Reaction Status Date / Time No Known Allergies Allergy Verified 04/04/23 19:01 Family History Son , age 44 from [place] CAD (coronary artery disease) Myocardial infarction Sudden cardiac Brother CAD (coronary artery disease) Pt states all nine of his siblings have heart problems Sister CAD (coronary artery disease) Patient states all nine of his siblings have heart problems Other History of mechanical aortic valve replacement Surgical History Cardiac pacemaker in situ H/O cardiac catheterization History of coronary artery stent placement (~06/28/11) History of coronary artery stent placement History of esophagogastroduodenoscopy (EGD) (~10/2021) History of left heart catheterization History of lumbar fusion History of mechanical aortic valve replacement (~03/27/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 Hx of CABG S/P CABG x 1 (~03/27/93) Status post cardiac surgery Social History household members: family Smoking Status: Former smoker alcohol intake: never substance use type: does not use caffeine: No ROS ROS ED ROS Narrative Lower abdominal pain. Nausea vomiting. Review of Systems ROS Unobtainable: Denies due to encephalopathy Constitutional Constitutional ED: Denies chills or fever(s) ENT ENT ED: Denies ear pain Cardiovascular Cardiovascular: Denies chest pain Respiratory/Chest Respiratory/Chest: Denies cough or dyspnea Gastrointestinal Gastrointestinal: Reports abdominal pain, constipation, diarrhea and vomiting Genitourinary Genitourinary ED: Denies dysuria or hematuria Musculoskeletal Musculoskeletal: Denies arthralgias Integumentary Denies abscess or Abrasions Neurologic Neurologic: Denies headache(s) Psychiatric Psychiatric: Denies anxiety or depression Endocrine Endocrinology: Denies polydipsia or polyphagia Hematologic/Lymphatic Hematologic/Lymphatic: Denies easy bleeding or easy bruising Allergic/Immunologic Allergic/Immunologic ED: Denies mouth swelling or tongue swelling EXAM Physical Exam Narrative Exam Narrative: 82-year-old male vital signs stable afebrile. H EENT exam unremarkable. Moist extremities. Neck nontender. Lungs clear to auscultation. Heart regular rhythm rate about 65. Abdomen soft nondistended normal bowel sounds no peritoneal signs. Suprapubic tenderness. No rebound guarding rigidity. Right upper right lower quadrant unremarkable. No hernia or mass. No signs of distention. No pulsatile mass. Moving all 4 extremities. Nontender no edema. He is awake and alert. Const Vital Signs: 04/04/23 19:02 04/04/23 19:08 Temperature 97.6 F L Temperature Source Temporal Pulse Rate 62 67 Respiratory Rate 20 H 19 H Blood Pressure 127/53 H 127/53 H Blood Pressure Mean 77 77 Pulse Ox 100 100 Oxygen Delivery Method Room Air Room Air Positive well nourished and well developed; Negative for obese, cachectic, contractures or unkempt General Appearance ED: well developed and NAD; Negative for unkempt, cachectic, contractures or pallor Nutritional Appearance: Negative for cachectic or obese HEENT Reports moist mucous membranes; Denies dry mucous membranes normocephalic and atraumatic; Negative for trauma or tenderness Mouth ED: No dry mucous membranes Mouth: No dry mucous membranes Eyes EOMs intact bilaterally General Eye ED: Negative for pale conjunctiva or scleral icterus Neck no lymphadenopathy, supple and no JVD General: Negative for tenderness Carotids: Negative for other Lymph Lymphatic: Negative for other Resp normal respiratory effort and clear to auscultation bilaterally Effort and Inspection: Negative for respiratory distress Auscultation: Negative for rales, rhonchi or wheezes Cardio regular rate, regular rhythm, S1 normal heart sound, S2 normal heart sound and no murmurs Rate: Negative for bradycardia or tachycardic Rhythm: Negative for abnormal rhythm GI non-distended and no masses; Negative for non-tender Inspection: Negative for abdominal distention Auscultation: normoactive bowel sounds Palpation: soft and tender; Negative for guarding, rigid, hepatomegaly, splenomegaly, hernia, mass, pulsatile mass or rebound tenderness present Back/Spine no CVA tenderness General Back: Negative for CVA tenderness Cervical Spine: Negative for cervical spine tenderness Thoracic Spine / Upper Back: Negative for thoracic spinal tenderness Lumbar Spine / Lower Back: Negative for lumbar spinal tenderness Coccyx: Negative for other Extremity full ROM General Extremety ED: Negative for edema or tenderness General Extremity: Negative for edema Neuro CN's II-XII intact bilaterally and moves all extremities Sensorium / Orientation: alert, oriented to person, oriented to place and oriented to time; Negative for orientation impaired, confused, lethargic or stuporous Motor Exam: strength 5/5 throughout Psych mental status grossly normal and thought process normal Appearance: Negative for unkempt Attitude: No agitated Mood & Affect: Negative for depressed, anxious or tearful Skin no wounds General Skin Exam: Negative for jaundice or pallor Lesions: no lesions Rashes: no rashes Trauma: Negative for abrasion Nails: Negative for discolored MDM MDM MDM Narrative Medical decision making narrative: 82-year-old male with lower abdominal pain, nausea and vomiting. History of chronic kidney disease and recent anemia requiring transfusion but they could not find any source of GI bleed. He is also on Coumadin due to mechanical valve. He did have outpatient labs done earlier today at his GI doctor's office. We will check some additional labs. Get a CAT scan without contrast because his creatinine is greater than 2 due to the abdominal pain. He was also treated with 4 morphine and Zofran. Repeat exam at 9:39 PM patient doing well. Abdomen benign. I discussed all his test results with both the patient and his daughter at bedside are comfortable with him being discharged home. History & Record Review Discussion w/independent historian: Patient and Family Additional record(s) reviewed:: Prior inpatient record, Prior outpatient record, Prior ED visit and Prior labs Lab Data Attestation: I reviewed the patient's lab results. Lab results narrative: CBC shows a white count of 4.4. H&H 8.7 and 27.9 which is consistent with his baseline anemia. Platelets 143,000. Electrolytes show a gap of 7. BUN and creatinine are 30 and 2.2 Urinalysis shows RBC of 10-25. No white cells. Rare bacteria. No nitrites These are consistent with patient's baseline labs. Chronic anemia. Chronic thrombocytopenia. Chronic renal insufficiency. PT and INR was done earlier today as an outpatient the INR was 4.1. We will discuss that with the patient's daughter to have that re-checked. Labs: Laboratory Results - last 24 hr 04/04/23 04/04/23 18:53 20:58 WBC 4.4 RBC 2.85 L Hgb 8.7 L Hct 27.9 L MCV 97.9 H MCH 30.5 MCHC 31.2 L RDW Std Deviation 65.2 H RDW Coeff of [place] 18.1 H Plt Count 143 L MPV 11.9 Immature Gran % (Auto) 0.200 Neut % (Auto) 74.1 H Lymph % (Auto) 14.7 L [place] % (Auto) 7.4 Eos % (Auto) 2.7 Baso % (Auto) 0.9 Absolute Neuts (auto) 3.3 Absolute Lymphs (auto) 0.65 L Nucleated RBC % 0 Differential Comment SCANNED Sodium 144 Potassium 4.2 Chloride 114 H Carbon Dioxide 23.0 Anion Gap 7 BUN 30 H Creatinine 2.29 H Estim Creat Clear Calc 24.79 Est GFR (MDRD) Af Amer 35 L Est GFR (MDRD) Non-Af 29 L BUN/Creatinine Ratio 13.1 Glucose 105 Calcium 8.4 L Urine Color Yellow Urine Clarity Sl. Cloudy Urine pH 5.0 Ur Specific [place] 1.020 Urine Protein 100 H Urine Glucose (UA) 1000 H Urine Ketones Negative Urine Occult Blood 150 H Urine Nitrite Negative Urine Bilirubin Negative Urine Urobilinogen Normal Ur Leukocyte Esterase 25 H Urine RBC 10-25 SEEN Urine WBC 0-5 SEEN Ur Squamous Epith Cells 0-5 SEEN Amorphous Sediment 2+ URATE Urine Bacteria RARE Urine Mucus 0 SEEN Radiography Diagnostic Testing: Clinical Impression(s) from Imaging Studies Abdomen/Pelvis CT 04/04/23 19:43 IMPRESSION: Right nephrolithiasis without evidence for obstruction or ureteral calculus.. Incompletely distended thick walled bladder of uncertain etiology or significance. Cannot definitively exclude cystitis Mild diffuse ileus with fecal retention in colon. Electronically Signed: Jordy Sevilla MD at 20:23 EDT , Discharge Plan Triage Chief Complaint: Abd Pain ED Provider: Jimmy Newman Dx/Rx/DC Orders Clinical Impression: Abdominal pain, Chronic anticoagulation, Acute constipation, Chronic anemia, Chronic kidney disease, History of atrial fibrillation Instructions: Abdominal Pain Prescriptions: No Action ipratropium-albuterol 0.5 mg-3 mg(2.5 mg base)/3 mL solution for nebulization 3 ml INHALATION 4X/DAY nitroglycerin 0.4 mg tablet, sublingual 0.4 mg SUBLINGUAL Q5M PRN (Reason: Chest Pain) Qty: 25 3RF lactulose 10 gram/15 mL (15 mL) solution 20 g PO DAILY Qty: 1440 0RF pantoprazole 40 mg tablet,delayed release (DR/EC) 40 mg PO BID cholecalciferol (vitamin D3) 1,000 UNIT tablet 1,000 unit PO DAILY albuterol sulfate 90 MCG aerosol powdr breath activated 2 puff INHALATION Q4H PRN (Reason: Shortness Of Breath) Patient Comments: folic acid 1 MG tablet 1 mg PO QHS Stiolto Respimat 2.5-2.5 mcg/actuation Mist 1 puff INHALATION BID ferrous sulfate 325 MG tablet 325 mg PO BID Patient Comments: iron supplement buprenorphine 15 mcg/hour patch weekly 15 mcg transdermal FULLER clopidogrel 75 mg tablet 75 mg PO DAILY Jardiance 10 mg tablet 10 mg PO DAILY Patient Comments: TAKE 1 TABLET BY MOUTH DAILY metoprolol succinate 100 mg tablet extended release 24 hr 100 mg PO Q12H Patient Comments: Take 1 tablet by mouth every 12 hours. rosuvastatin [Crestor] 40 mg tablet 40 mg PO DAILY warfarin 5 mg tablet 5 mg PO DAILY Qty: 90 3RF Protocol: Dose Management Condition: Tuesday Dose/Route: 5 mg Instruction: 1 x 5 mg tablet Condition: Tuesday Dose/Route: 0 mg Instruction: 0 tablets Condition: Tuesday Dose/Route: 2.5 mg Instruction: 0.5 x 5 mg tablets Condition: Tuesday Dose/Route: 2.5 mg Instruction: 0.5 x 5 mg tablets Condition: Dose/Route: 2.5 mg Instruction: 0.5 x 5 mg tablets Condition: Tuesday Dose/Route: 2.5 mg Instruction: 0.5 x 5 mg tablets Condition: Tuesday Dose/Route: 2.5 mg Instruction: 0.5 x 5 mg tablets Protocol Text: Adjustment Start Date: Tuesday04/04/23 INR Value: 4.1 INR Date: 04/04/23 Recheck Date: 04/06/23 amiodarone 200 mg tablet 400 mg PO Q8H Rx Instructions: take two tabs (400mg) PO x one week, to end on 03/31/23. Then take one tab 200mg Daily thereafter Primary Care Provider: Guillermo Pritchard Referrals: Guillermo Pritchard MD [Primary Care Provider] - 3-5 Days Activity Restrictions/Additional Instructions: Plenty of fluids, fruits and vegetables and fiber and stool softener. Follow-up with his doctor if not improving. Return if worse. Disposition Disposition: Home, Self Care
[2023-04-04] MEDS: Ondansetron 4 MG/2 ML Vial IV (19:43)
[2023-04-04] MEDS: Morphine 4 MG/ML Syringe IV ×2 (19:43→21:14)
--- NOTE | 2023-04-04 19:43 | CT_ITS ---
STUDY: CT ABDOMEN AND PELVIS WITHOUT CONTRAST REASON FOR EXAM: Male, 82 years old. lower abd pain. Suprapubic. RADIATION DOSAGE (If Supplied By Facility): CTDIvol = ( 6.23 ) mGy, DLP = ( 315.75 ) mGycm TECHNIQUE: Transaxial images were obtained from the dome of the diaphragm to the symphysis pubis without oral contrast, and without intravenous contrast. Sagittal and coronal images were reconstructed. Individualized dose optimization techniques were used for this CT. COMPARISON: None. FINDINGS: Mild interstitial thickening and emphysematous changes in the lower lobes. Small left pleural effusion and left lower lobe atelectasis. Heart is enlarged. There is elongation of the right lobe liver which may be consistent with normal variant. Liver is homogeneous attenuation without mass or bile duct dilatation. Normal gallbladder and extrahepatic biliary system. Spleen is upper normal in size Normal pancreas. Normal bilateral adrenal glands. Horseshoe kidney deformity is noted which is normal developmental variant. There are 2 tiny nonobstructing renal calculi. Small simple cyst noted in the renal isthmus Normal visualized stomach. Mild ileus with diffuse fecal retention in colon.. No evidence for acute appendicitis. Atherosclerotic changes of the aorta without evidence for aneurysm. Normal inferior vena cava. Normal retroperitoneum. Incompletely distended thick walled bladder of uncertain significance. Cannot exclude possibility of cystitis.. Nonspecific enlargement of prostate. Normal abdominal wall. Lumbar spine demonstrates degenerative change. Postop changes at L4-5 and L5-S1 . CT/Abdomen/Pelvis without Cont IMPRESSION: Right nephrolithiasis without evidence for obstruction or ureteral calculus.. Incompletely distended thick walled bladder of uncertain etiology or significance. Cannot definitively exclude cystitis Mild diffuse ileus with fecal retention in colon. Electronically Signed: Jordy Sevilla MD at 20:23 EDT ,
[2023-04-04 19:45] LABS: Absolute Lymphocyte Count 0.65 X10^3/uL (0.83-4.51); Absolute Neutrophil Count 3.3 X10^3/uL (2.0-7.7); Basophil# 0.04 X10^3/uL; Basophil% 0.9 % (0-1); Eosinophil# 0.12 X10^3/uL; Eosinophils% 2.7 % (0-5); Hematocrit 27.9 % (40-54); Hemoglobin 8.7 g/dL (13.0-16.5); Lymphocyte # 0.65 X10^3/ul (0.83-4.51); Lymphocyte % 14.7 % (19-41); Mean Corp Hgb Conc 31.2 g/dL (32-36); Mean Corpuscular Hgb 30.5 pg (27.0-32.0); Mean Corpuscular Volume 97.9 fL (80-94); Mean Platelet Vol. 11.9 fl (6.2-12.0); Monocyte# 0.33 X10^3/uL; Monocyte% 7.4 % (0-10); NRBC Flagged by Analyzer 0 % (0-5); Neutrophil # 3.28 X10^3/uL (2.7-7.7); Neutrophil % 74.1 % (47-70); POSITIVE MORPHOLOGY YES; Platelet Count 143 K/mm3 (150-450); RBC Distribution Width CV 18.1 % (11.6-14.6); RBC Distribution Width SD 65.2 fl (35.1-43.9); Red Blood Count 2.85 M/mm3 (4.6-6.2); White Blood Count 4.4 K/mm3 (4.4-11.0)
[2023-04-04 19:50] LABS: Differential Indicated SCAN CRITERIA MET
[2023-04-04 19:58] LABS: Anion Gap 7 (5-15); BUN 30 mg/dL (7-18); BUN/Creat Ratio 13.1 RATIO (10-20); Calcium,Total 8.4 mg/dL (8.5-10.1); Chloride 114 mmol/L (98-107); Creatinine, Serum 2.29 mg/dL (0.70-1.30); EST Glomerular Filtration Rate 29 mL/min (>60); Est Glom Filt Rate - Afr Amer 35 mL/min (>60); Estimated Creatinine Clearance 24.79 ml/min; Glucose 105 mg/dL (74-106); Potassium 4.2 mmol/L (3.5-5.1); Sodium Level 144 mmol/L (136-145)
[2023-04-04 20:28] LABS: Differential Comment SCANNED
[2023-04-04 21:09] LABS: Mucous, Urine 0 SEEN /hpf (<or=2+)
[2023-04-04 21:12] LABS: Color, Urine Yellow (Yellow); Glucose, Dipstick 1000 mg/dl (Normal); Ketone-Dipstick Negative (Negative); Leukocyte Esterase-Dipstick 25 /ul (Negative); Nitrite-Dipstick Negative (Negative); Occult Blood-Urine 150 /ul (Negative); Protein-Dipstick 100 mg/dl (Negative); Urine Bilirubin Dipstick Negative (Negative); Urine Clarity Sl. Cloudy (Clear); Urine Urobilinogen Normal (Normal)
[2023-04-04 21:20] LABS: Amorphous Sediment 2+ URATE; Bacteria RARE /hpf (None Seen); Red Blood Cells-Urine 10-25 SEEN /hpf (0-5); Squamous Epithelial Cells - UA 0-5 SEEN /hpf (0-5); White Blood Cells 0-5 SEEN /hpf (0-5)
[2023-04-04 22:05] VITALS: PULSE 63; RESP 18; O2SAT 98
[2023-04-04 22:07] VITALS: BP 108/62; PULSE 60; RESP 20; O2SAT 100
== END 2023-04-04 22:08 | disposition home or self-care (01) ==
PROVIDERS: Emergency Provider Emergency Medicine; PCP Family Medicine; Visit Provider Emergency Medicine
DX: R10.9 Unspecified abdominal pain (principal); J44.9 Chronic obstructive pulmonary disease, unspecified; I13.0 Hypertensive heart and chronic kidney disease with heart failure and stage 1 through stage 4 chronic kidney disease, or unspecified chronic kidney disease; I50.22 Chronic systolic (congestive) heart failure; I48.0 Paroxysmal atrial fibrillation; N18.31 Chronic kidney disease, stage 3a; D64.9 Anemia, unspecified; G89.4 Chronic pain syndrome; K92.1 Melena; Z87.891 Personal history of nicotine dependence; Z79.01 Long term (current) use of anticoagulants; I25.10 Atherosclerotic heart disease of native coronary artery without angina pectoris; E78.00 Pure hypercholesterolemia, unspecified; Z95.2 Presence of prosthetic heart valve; Z95.5 Presence of coronary angioplasty implant and graft; Z95.0 Presence of cardiac pacemaker; K59.00 Constipation, unspecified; G93.40 Encephalopathy, unspecified; D50.0 Iron deficiency anemia secondary to blood loss (chronic)
CPT/HCPCS: 36415; 74176; 80048; 80053; 81001; 82140; 82728; 83516; 83880; 85025; 85610; 96374; 96375; 96376; 99285; J2405

== ENCOUNTER → 2023-04-11 | Outpatient (CLI) | payer MEDICARE, SELFPAY ==
[2023-04-11 11:18] LABS: Absolute Lymphocyte Count 0.51 X10^3/uL (0.83-4.51); Absolute Neutrophil Count 4.1 X10^3/uL (2.0-7.7); Basophil# 0.03 X10^3/uL; Basophil% 0.6 % (0-1); Eosinophil# 0.16 X10^3/uL; Eosinophils% 3.1 % (0-5); Hematocrit 34.7 % (40-54); Hemoglobin 10.2 g/dL (13.0-16.5); Lymphocyte # 0.51 X10^3/ul (0.83-4.51); Lymphocyte % 9.8 % (19-41); Mean Corp Hgb Conc 29.4 g/dL (32-36); Mean Corpuscular Hgb 29.6 pg (27.0-32.0); Mean Corpuscular Volume 100.6 fL (80-94); Mean Platelet Vol. 10.9 fl (6.2-12.0); Monocyte% 7.7 % (0-10); NRBC Flagged by Analyzer 0 % (0-5); Neutrophil # 4.06 X10^3/uL (2.7-7.7); Neutrophil % 78.4 % (47-70); POSITIVE DIFFERENTIAL YES; Platelet Count 179 K/mm3 (150-450); RBC Distribution Width CV 17.3 % (11.6-14.6); RBC Distribution Width SD 63.7 fl (35.1-43.9); Red Blood Count 3.45 M/mm3 (4.6-6.2); White Blood Count 5.2 K/mm3 (4.4-11.0)
[2023-04-11 11:27] LABS: International Normalized Ratio 1.9; Prothrombin Time (Protime)PT. 21.8 SECONDS (11.7-14.9)
[2023-04-11 11:27] LABS: Differential Indicated SCAN CRITERIA MET
[2023-04-11 11:50] LABS: Anion Gap 5 (5-15); BUN 21 mg/dL (7-18); BUN/Creat Ratio 9.3 RATIO (10-20); Calcium,Total 8.2 mg/dL (8.5-10.1); Chloride 109 mmol/L (98-107); Creatinine, Serum 2.25 mg/dL (0.70-1.30); EST Glomerular Filtration Rate 30 mL/min (>60); Est Glom Filt Rate - Afr Amer 36 mL/min (>60); Free T3 1.3 pg/mL (2.18-3.98); Glucose 120 mg/dL (74-106); Potassium 3.5 mmol/L (3.5-5.1); Sodium Level 143 mmol/L (136-145); T4 Free Direct 1.01 ng/dL (0.76-1.46); Thyroid Stim Hormone (TSH) 2.37 uIU/mL (0.358-3.74)
[2023-04-11 18:28] LABS: BNP,B-Type NATRIURETIC PEPTIDE 631.1 pg/mL (0-100)
== END | disposition home or self-care (01) ==
LOC: HHLAB 11:03 → LABSPEC 11:04
PROVIDERS: Nurse Practitioner Gerontology; Physician Assistant Medical; PCP Family Medicine
DX: R53.83 Other fatigue (principal); T82.7XXA Infection and inflammatory reaction due to other cardiac and vascular devices, implants and grafts, initial encounter; N17.9 Acute kidney failure, unspecified; R06.09 Other forms of dyspnea; D62 Acute posthemorrhagic anemia; Y71.2 Prosthetic and other implants, materials and accessory cardiovascular devices associated with adverse incidents
CPT/HCPCS: 80048; 83880; 84439; 84443; 84481; 85025; 85610

== ENCOUNTER → 2023-04-14 | Outpatient (CLI) | payer MEDICARE, SELFPAY ==
--- NOTE | 2023-04-14 07:53 | US_ITS ---
STUDY: ABDOMINAL ULTRASOUND - RIGHT UPPER QUADRANT; ELASTOGRAPHY REASON FOR VISIT: Male, 83 years old. Abdominal pain. TECHNIQUE: Ultrasound evaluation of the right upper quadrant was performed with real-time and static rubin-scale imaging. Point quantification shear wave elastography was performed ([email or web address]). TECHNICAL QUALITY: Adequate. COMPARISON: Comparison is made with prior CT scan of abdomen and pelvis-April 04, 2023. FINDINGS: Liver: The liver measures 13.5 cm. There is normal echogenicity of the liver. The bile ducts are within normal limits. There is hepatic color flow. The direction of portal flow is hepatopetal. There is no demonstrated mass lesion. Median liver stiffness measured 11.7 kPa. Gallbladder: Normal distended gallbladder. The gallbladder wall measures 1.8 mm. There is a negative sonographic Weaver''s sign. There is no pericholecystic fluid. There are no gallstones. Common Bile Duct (C.B.D.): The common bile duct measures 9.7 mm. Pancreas: There is normal echogenicity of the visualized pancreas. There is no demonstrated pancreatic mass or cyst. Right Kidney: Normal size of the right kidney. The right kidney measures 10.7 cm x 4.1 cm x 3.3 cm. Normal renal cortex. The right cortex measures 1.1 cm. There is a 2.4 cm x 2.4 cm x 2.1 centimeters cyst in the inferior pole of the right kidney. There is no right hydronephrosis. Horseshoe kidney. US/ABD Limited w/ Elastography IMPRESSION: 1. 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 Electronically Signed: Tyler Early MD at 10:37 EDT ,
[2023-04-14 09:27] LABS: International Normalized Ratio 2.1; Prothrombin Time (Protime)PT. 23.4 SECONDS (11.7-14.9)
[2023-04-14 09:33] LABS: Anion Gap 4 (5-15); BUN 24 mg/dL (7-18); BUN/Creat Ratio 10.6 RATIO (10-20); Calcium,Total 8.6 mg/dL (8.5-10.1); Chloride 109 mmol/L (98-107); Creatinine, Serum 2.26 mg/dL (0.70-1.30); EST Glomerular Filtration Rate 30 mL/min (>60); Est Glom Filt Rate - Afr Amer 36 mL/min (>60); Glucose 94 mg/dL (74-106); Potassium 3.9 mmol/L (3.5-5.1); Sodium Level 143 mmol/L (136-145)
== END | disposition home or self-care (01) ==
PROVIDERS: Internal Medicine Cardiovascular Disease; PCP Family Medicine; Referring Provider Internal Medicine Gastroenterology; Visit Provider Internal Medicine Gastroenterology
DX: I48.19 Other persistent atrial fibrillation (principal); I50.9 Heart failure, unspecified; Z95.2 Presence of prosthetic heart valve; R10.9 Unspecified abdominal pain; I25.5 Ischemic cardiomyopathy; Z51.81 Encounter for therapeutic drug level monitoring; Z79.899 Other long term (current) drug therapy
CPT/HCPCS: 36415; 76705; 76981; 80048; 85610

== ENCOUNTER 2023-04-25 13:43 | Outpatient (RCR) | payer MEDICARE, SELFPAY ==
[2023-04-21 12:49] LABS: International Normalized Ratio 2.4; Prothrombin Time (Protime)PT. 26.8 SECONDS (11.7-14.9)
[2023-04-21 13:39] LABS: Anion Gap 6 (5-15); BUN 32 mg/dL (7-18); BUN/Creat Ratio 11.7 RATIO (10-20); Calcium,Total 9.3 mg/dL (8.5-10.1); Chloride 99 mmol/L (98-107); Creatinine, Serum 2.73 mg/dL (0.70-1.30); EST Glomerular Filtration Rate 24 mL/min (>60); Est Glom Filt Rate - Afr Amer 29 mL/min (>60); Glucose 123 mg/dL (74-106); Sodium Level 137 mmol/L (136-145)
[2023-04-25 14:07] LABS: Hematocrit 42.5 % (40-54); Hemoglobin 12.6 g/dL (13.0-16.5); Mean Corp Hgb Conc 29.6 g/dL (32-36); Mean Corpuscular Hgb 29.4 pg (27.0-32.0); Mean Corpuscular Volume 99.3 fL (80-94); Mean Platelet Vol. 11.4 fl (6.2-12.0); Platelet Count 179 K/mm3 (150-450); RBC Distribution Width CV 16.2 % (11.6-14.6); RBC Distribution Width SD 59.3 fl (35.1-43.9); Red Blood Count 4.28 M/mm3 (4.6-6.2); White Blood Count 5.5 K/mm3 (4.4-11.0)
[2023-04-25 14:18] LABS: International Normalized Ratio 2.9
[2023-04-25 14:23] LABS: Anion Gap 7 (5-15); BUN 36 mg/dL (7-18); BUN/Creat Ratio 12.6 RATIO (10-20); Calcium,Total 9.1 mg/dL (8.5-10.1); Chloride 101 mmol/L (98-107); Creatinine, Serum 2.86 mg/dL (0.70-1.30); EST Glomerular Filtration Rate 22 mL/min (>60); Est Glom Filt Rate - Afr Amer 27 mL/min (>60); Glucose 173 mg/dL (74-106); Potassium 3.3 mmol/L (3.5-5.1); Sodium Level 140 mmol/L (136-145)
== END 2023-04-25 18:00 | disposition home or self-care (01) ==
LOC: HHLAB 13:43
PROVIDERS: PCP Family Medicine; Referring Provider Nurse Practitioner Gerontology; Visit Provider Nurse Practitioner Gerontology
DX: T82.7XXA Infection and inflammatory reaction due to other cardiac and vascular devices, implants and grafts, initial encounter (principal); D62 Acute posthemorrhagic anemia; N17.9 Acute kidney failure, unspecified
CPT/HCPCS: 80048; 85027; 85610

== ENCOUNTER 2023-05-01 17:55 | Inpatient (IN) | payer OTHER, SELFPAY ==
[2023-05-01] VITALS (17 sets, daily range): BP systolic 93–123; BP diastolic 40–63; PULSE 60–67; RESP 10–20; TEMP 36.2–36.7; O2SAT 97–100; BMI 20.1; BMI 19.4
--- NOTE | 2023-05-01 18:09 | EKG12_ITS ---
Test Reason : DEFIB PROBLEM Blood Pressure : / mmHG Vent. Rate : 060 BPM Atrial Rate : 060 BPM P-R Int : 176 ms QRS Dur : 164 ms QT Int : 518 ms P-R-T Axes : -70 268 090 degrees QTc Int : 518 ms AV dual-paced rhythm Biventricular pacemaker detected Abnormal ECG Confirmed by JOSÉ KO, WEI ([id number]), editorial cartoonist RAVEN RADFORD ([id number]) on 05/05/2023 11:29:55 AM Referred By: SONIA/BB Confirmed By:WEI KUMAR MD
--- NOTE | 2023-05-01 18:11 | ED.VIS.DYS ---
HPI History of Present Illness Chief Complaint: Shortness of Breath Informant: patient, family (Daughter) and EMS Onset/Context/Timing Onset: Yesterday Narrative Narrative: 83-year-old male who does not feel well and has been short of breath with minimal exertion all day today starting last night, as well as chest discomfort like an achy pain in his substernal area off and on all day today as well. He is a relatively poor historian due to not feeling well. Much of the history is given by the daughter who accompanies him. While he was dyspneic today the checked a pulse oximetry at home and it was in the 90s, he uses 2 L of home oxygen just as needed and he was not using it today. No edema in his legs. History of chronic orthopnea, saw cardiology within the last day or 2, worsening renal function so they decreased his Lasix because they do not want him to be without it. He has a pacer defibrillator that was placed maybe 3 months ago, he was doing pretty well afterwards until all of this. Patient denies having any cough or fevers. [facility] Medical History Acute respiratory failure with hypoxia Ambulates with cane Anemia Anemia due to chronic blood loss Anticoagulant long-term use Arthritis Asthma Atherosclerotic heart disease of [place] coronary artery without angina pectoris Atrial fibrillation Back pain Back pain due to injury Cardiology follow-up encounter Chest pain CHF (congestive heart failure) Chronic airway obstruction Chronic anticoagulation Chronic cough Chronic pain Chronic pain syndrome Chronic systolic (congestive) heart failure COPD (chronic obstructive pulmonary disease) COPD (chronic obstructive pulmonary disease) Coronary artery disease Difficulty swallowing Erosion of pacemaker pocket due to and not concurrent with implantation of cardiac pacemaker Essential hypertension Former smoker Gastric reflux GERD (gastroesophageal reflux disease) Heart attack HFrEF (heart failure with reduced ejection fraction) High cholesterol History of echocardiogram History of edema History of GI bleed History of heart attack History of pain when walking History of stress test Hx of fracture of ankle Hx of fracture of ankle Hypertension ICD (implantable cardioverter-defibrillator) in place Injury of back Injury of head and neck Intermittent complete heart block Irregular heartbeat Ischemic cardiomyopathy 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 On home oxygen therapy Osteoporosis Paroxysmal atrial fibrillation Pericardial effusion after operative procedure Perirectal abscess Persistent atrial fibrillation Pure hypercholesterolemia Restless legs Secondary pulmonary arterial hypertension Shortness of breath on exertion Sick sinus syndrome Smoker Spinal stenosis of lumbar region Stage 3a chronic kidney disease (CKD) Stroke Symptomatic bradycardia TIA (transient ischemic attack) Tobacco use disorder Uncontrolled pain Wears dentures Wears glasses Home Medications albuterol sulfate 90 mcg/actuation breath activated powder inhaler 2 puff inhalation Q4H PRN Shortness Of Breath 09/25/15 [History Last Taken 08/23/22] cholecalciferol (vitamin D3) 25 mcg (1,000 unit) tablet 1,000 unit PO DAILY SUPPLEMENT 09/25/15 [History Last Taken 08/24/22] folic acid 1 mg tablet 1 mg PO QHS SUPPLEMENT 06/24/16 [History Last Taken 08/23/22] pantoprazole 40 mg tablet,delayed release 40 mg PO BID ACID REFLUX 01/02/18 [History Last Taken 08/24/22] tiotropium 2.5 mcg-olodaterol 2.5 mcg/actuation mist for inhalation (Stiolto Respimat) 1 puff inhalation BID ASTHMA 06/18/21 [History Last Taken 08/24/22] ipratropium 0.5 mg-albuterol 3 mg (2.5 mg base)/3 mL nebulization soln 3 ml inhalation 4X/DAY SHORTNESS OF BREATH 11/25/21 [History Last Taken 04/06/22] ferrous sulfate 325 mg (65 mg iron) tablet 325 mg PO BID IRON SUPPLEMENT 04/06/22 [History Last Taken 08/24/22] buprenorphine 15 mcg/hour weekly transdermal patch 15 mcg transdermal FULLER PAIN 08/24/22 [History Last Taken 08/15/22] nitroglycerin 0.4 mg sublingual tablet 0.4 mg sublingual Q5M PRN Chest Pain #25 tabs 09/17/22 [Rx Last Taken Unknown] clopidogrel 75 mg tablet 75 mg PO DAILY antiplatelet 03/29/23 [History Last Taken Unknown] rosuvastatin 40 mg tablet (Crestor) 40 mg PO DAILY cholesterol 03/29/23 [History Last Taken Unknown] lactulose 10 gram/15 mL (15 mL) oral solution 20 g (30 mL) PO DAILY #1,440 mL 04/04/23 [Rx Last Taken Unknown] furosemide 20 mg tablet 20 mg PO DAILY dose has been decreased #90 tabs 04/25/23 [Rx Last Taken Unknown] potassium chloride 10 mEq tablet,extended release 10 meq PO DAILY #30 tabs 04/25/23 [Rx Last Taken Unknown] amiodarone 200 mg tablet 200 mg PO DAILY afib #90 tabs 04/28/23 [Rx Last Taken Unknown] empagliflozin 10 mg tablet (Jardiance) 10 mg PO DAILY heart health #90 tabs 04/28/23 [Rx Last Taken Unknown] metoprolol succinate 100 mg tablet,extended release 24 hr 100 mg PO Q12H blood pressure #180 tabs 04/28/23 [Rx Last Taken Unknown] warfarin 5 mg tablet 2.5 - 5 mg PO DAILY BLOOD THINNER 05/01/23 [History Last Taken Unknown] Allergy/AdvReac Type Severity Reaction Status Date / Time No Known Allergies Allergy Verified 05/01/23 17:56 Family History Son , age 44 from [place] CAD (coronary artery disease) Myocardial infarction Sudden cardiac Brother CAD (coronary artery disease) Pt states all nine of his siblings have heart problems Sister CAD (coronary artery disease) Patient states all nine of his siblings have heart problems Other History of mechanical aortic valve replacement Surgical History Cardiac pacemaker in situ H/O cardiac catheterization History of coronary artery stent placement (~06/28/11) History of coronary artery stent placement History of esophagogastroduodenoscopy (EGD) (~10/2021) History of left heart catheterization History of lumbar fusion History of mechanical aortic valve replacement (~03/27/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 Hx of CABG Presence of biventricular implantable cardioverter-defibrillator (ICD) S/P CABG x 1 (~03/27/93) Status post cardiac surgery Social History household members: family Smoking Status: Former smoker alcohol intake: never substance use type: does not use caffeine: No ROS ROS ED Review of Systems ROS Unobtainable: other Details: Somewhat limited due to condition see above Constitutional Constitutional ED: Denies chills or fever(s) ENT ENT ED: Denies sore throat Cardiovascular Cardiovascular: Reports chest pain and orthopnea; Denies palpitations Respiratory/Chest Respiratory/Chest: Reports dyspnea, dyspnea on exertion and orthopnea; Denies cough Gastrointestinal Gastrointestinal: Denies abdominal pain, diarrhea, nausea or vomiting Musculoskeletal Musculoskeletal: Denies back pain or neck pain Neurologic Neurologic: Denies headache(s), paresthesias or weakness Psychiatric Psychiatric: Denies anxiety or suicidal thoughts EXAM Physical Exam Const Vital Signs: 05/01/23 17:56 05/01/23 18:01 05/01/23 18:04 Temperature 97.7 F L Temperature Source Oral Pulse Rate 60 60 Respiratory Rate 18 20 H Respiratory Effort Short of Breath Blood Pressure 96/57 L 100/58 L Blood Pressure Mean 70 72 Pulse Ox 97 100 Oxygen Delivery Method Room Air Room Air 05/01/23 18:36 05/01/23 18:56 Temperature Temperature Source Pulse Rate 67 60 Respiratory Rate 14 12 Respiratory Effort Blood Pressure 101/55 L Blood Pressure Mean 70 Pulse Ox 98 Oxygen Delivery Method Room Air Positive well nourished and well developed Constitutional Narrative: Somnolent but opens eyes to voice and answers questions appropriately. General Appearance ED: well developed and NAD HEENT Reports moist mucous membranes normocephalic and atraumatic Eyes PERRL and EOMs intact bilaterally Neck full ROM, supple and no JVD Resp normal respiratory effort and clear to auscultation bilaterally Cardio regular rate and regular rhythm Cardio Narrative: Audible click consistent with prior metallic valve replacement GI non-tender and non-distended Auscultation: normoactive bowel sounds Palpation: soft Back/Spine no CVA tenderness General Back: other FROM Extremity normal to inspection General Extremety ED: Yes edema; Negative for pulses abnormal or tenderness General Extremity: edema; Negative for pulses abnormal Neuro oriented x3, CN's II-XII intact bilaterally and no sensory deficits noted Sensorium / Orientation: awake and alert Motor Exam: general weakness Psych mental status grossly normal Skin no rashes or lesions noted and no wounds MDM MDM MDM Narrative Medical decision making narrative: Initial work-up shows chronic renal insufficiency that is no worse than before except his BUN is elevated likely due to diuresis recently vs. UGIB, his BNP is much better than it had been in the past, chest x-ray 1 view on my interpretation looks clear and with no pulmonary edema or pleural effusions or pneumothorax or pneumonia, and his hemoglobin is low at 7.8, and looking back at his old outpatient labs, this is a significant change of 4-5 g drop in several days. Hence I then discussed with the patient asking if he was having dark tarry stools in the last several days and he states yes. We sent Hemoccult and it is positive. At this point the daughter states this is happened before and he has had scopes up and down without finding the source and he has had blood transfusions in the past. Blood pressure is borderline at this time, and his INR is 15.1, so I recommend type and cross him for at least 1 unit for right now and giving him vitamin K to help correct his INR. Discussed with GI Friend who agrees with IV pantoprazole, with drip, and Rocephin, and admitting him to the hospital and will consult. Patient amenable to getting a blood transfusion, 1 unit ordered. In discussion w/ hospitalist, also ordered 1 unit FFP to be given, with the understanding we do not want to completely reverse his coagulopathy due to his mechanical aortic valve. History & Record Review Discussion w/independent historian: EMS personnel, Patient and Family Lab Data Attestation: I reviewed the patient's lab results. Labs: Laboratory Results - last 24 hr 05/01/23 05/01/23 18:12 19:16 WBC 4.9 RBC 2.63 L Hgb 7.8 L Hct 25.8 L MCV 98.1 H MCH 29.7 MCHC 30.2 L RDW Std Deviation 57.3 H RDW Coeff of [place] 16.0 H Plt Count 127 L MPV 10.7 Immature Gran % (Auto) 0.600 Neut % (Auto) 73.7 H Lymph % (Auto) 17.2 L [place] % (Auto) 7.1 Eos % (Auto) 0.6 Baso % (Auto) 0.8 Absolute Neuts (auto) 3.6 Absolute Lymphs (auto) 0.85 Nucleated RBC % 0 PT 113.0 H INR 15.0 H* Sodium 142 Potassium 4.0 Chloride 109 H Carbon Dioxide 26.0 Anion Gap 7 BUN 53 H Creatinine 2.53 H Estim Creat Clear Calc 19.23 Est GFR (MDRD) Af Amer 31 L Est GFR (MDRD) Non-Af 26 L BUN/Creatinine Ratio 20.9 H Glucose 120 H Calcium 8.3 L Troponin I High Sens 20 B-Natriuretic Peptide 183.1 H Blood Type O POSITIVE Antibody Screen NEGATIVE Radiography Diagnostic Testing: Clinical Impression(s) from Imaging Studies Chest X-Ray 05/01/23 18:30 IMPRESSION: No acute cardiopulmonary disease. Electronically Signed: Vilma Fritz MD at 18:51 EDT , Rhythm Strip Rhythm Strip: paced Rate: 60 Ectopy: None EKG Initial EKG: Attestation: I personally reviewed and interpreted this EKG as follows: Interpretation: Paced Comments: Wide-complex ventricular pacing no acute injury pattern Management Discussion w/another healthcare provider: Hospitalist and Insulation Worker (GI) Critical Care Time Critical care time (excluding procedures): 30-74 minutes (41 min), Including time spent:, Discussing w/Patient &/or Family/[place] Clerk, Discussing w/Consultants, Arranging Admission or Transfer and Performing Direct Patient Care at Bedside Discharge Plan Dx/Rx/DC Orders Clinical Impression: CKD (chronic kidney disease), Supratherapeutic INR, Acute blood loss anemia, Acute upper GI bleed, Chest pain Disposition Disposition: [facility] Discharge Date/Time: 05/01/23 21:04
[2023-05-01 18:20] LABS: Absolute Lymphocyte Count 0.85 X10^3/uL (0.83-4.51); Absolute Neutrophil Count 3.6 X10^3/uL (2.0-7.7); Basophil# 0.04 X10^3/uL; Basophil% 0.8 % (0-1); Eosinophil# 0.03 X10^3/uL; Eosinophils% 0.6 % (0-5); Hematocrit 25.8 % (40-54); Hemoglobin 7.8 g/dL (13.0-16.5); Lymphocyte # 0.85 X10^3/ul (0.83-4.51); Lymphocyte % 17.2 % (19-41); Mean Corp Hgb Conc 30.2 g/dL (32-36); Mean Corpuscular Hgb 29.7 pg (27.0-32.0); Mean Corpuscular Volume 98.1 fL (80-94); Mean Platelet Vol. 10.7 fl (6.2-12.0); Monocyte# 0.35 X10^3/uL; Monocyte% 7.1 % (0-10); NRBC Flagged by Analyzer 0 % (0-5); Neutrophil # 3.64 X10^3/uL (2.7-7.7); Neutrophil % 73.7 % (47-70); Platelet Count 127 K/mm3 (150-450); RBC Distribution Width SD 57.3 fl (35.1-43.9); Red Blood Count 2.63 M/mm3 (4.6-6.2); White Blood Count 4.9 K/mm3 (4.4-11.0)
--- NOTE | 2023-05-01 18:30 | RAD_ITS ---
STUDY: X-RAY CHEST REASON FOR EXAM: Male, 83 years old. sob TECHNIQUE: Single AP portable view of the chest. COMPARISON: 03/29/2023. FINDINGS: There is a right-sided pacemaker in place. The lungs are clear and expanded. There is no demonstrated pleural abnormality. Normal cardiac size with midline sternotomy wires and suggestion of prior CABG repair. Normal mediastinum and yonas. Normal visualized pulmonary arteries. There is atherosclerotic calcification of the aortic arch with tortuosity. Normal visualized thoracic spine. Normal visualized ribs, clavicles, and shoulders. There is no demonstrated abnormality of the visualized soft tissue structures of the upper abdomen. RAD/Chest 1 View (Portable) IMPRESSION: No acute cardiopulmonary disease. Electronically Signed: Vilma Fritz MD at 18:51 EDT ,
[2023-05-01] MEDS: Albuterol 2.5 MG/3 ML VIAL.NEB. INHALATION (18:34)
[2023-05-01 18:43] LABS: Anion Gap 7 (5-15); BUN 53 mg/dL (7-18); BUN/Creat Ratio 20.9 RATIO (10-20); Calcium,Total 8.3 mg/dL (8.5-10.1); Chloride 109 mmol/L (98-107); Creatinine, Serum 2.53 mg/dL (0.70-1.30); EST Glomerular Filtration Rate 26 mL/min (>60); Est Glom Filt Rate - Afr Amer 31 mL/min (>60); Estimated Creatinine Clearance 19.23 ml/min; Glucose 120 mg/dL (74-106); Sodium Level 142 mmol/L (136-145); Troponin-I HS 20 pg/mL (3.0-78.0)
[2023-05-01 18:48] LABS: BNP,B-Type NATRIURETIC PEPTIDE 183.1 pg/mL (0-100)
[2023-05-01] MEDS: Phytonadione (Vit K) 5 MG in 0.9% Normal Saline (50mL Bag) 50 ML 150 MG IV (19:56)
[2023-05-01] MEDS: Pantoprazole Sodium 80 MG in 0.9% Normal Saline (50mL Bag) 15 ML 420 MG IV BOLUS (20:07)
[2023-05-01] MEDS: Pantoprazole Sodium 80 MG in 0.9% Normal Saline (100mL Bag) 80 ML 10 MG CONT INF (20:20)
[2023-05-01] MEDS: Ceftriaxone 1 GM/50 ML BAG IV (20:21)
--- NOTE | 2023-05-01 20:21 | PCM.HP.STD ---
[facility] - General General Date of Admission: 05/01/23 Date of Service: 05/01/23 Chief Complaint: Shortness of breath HPI Narrative REBECCA ARRIOLA, is a 83 M with a significant history of prosthetic aortic valve replacement; heart failure with ejection fraction; AICD; A-fib; and on Coumadin therapy who presents to the emergency department with shortness of breath. Associated with his symptoms is intermittent chest pain; melena and weakness. Patient reports that he is too weak to stand. Further he reports lightheadedness. His symptoms started at night before presentation. Further patient complains of diarrhea with loose stools. A day before presentation he had 3 loose stools; and on the day of presentation he had 1 loose stool. Of note he he takes lactulose. [facility], [facility] Medical History Acute respiratory failure with hypoxia Ambulates with cane Anemia Anemia due to chronic blood loss Anticoagulant long-term use Arthritis Asthma Atherosclerotic heart disease of [place] coronary artery without angina pectoris Atrial fibrillation Back pain Back pain due to injury Cardiology follow-up encounter Chest pain CHF (congestive heart failure) Chronic airway obstruction Chronic anticoagulation Chronic cough Chronic pain Chronic pain syndrome Chronic systolic (congestive) heart failure COPD (chronic obstructive pulmonary disease) COPD (chronic obstructive pulmonary disease) Coronary artery disease Difficulty swallowing Erosion of pacemaker pocket due to and not concurrent with implantation of cardiac pacemaker Essential hypertension Former smoker Gastric reflux GERD (gastroesophageal reflux disease) Heart attack HFrEF (heart failure with reduced ejection fraction) High cholesterol History of echocardiogram History of edema History of GI bleed History of heart attack History of pain when walking History of stress test Hx of fracture of ankle Hx of fracture of ankle Hypertension ICD (implantable cardioverter-defibrillator) in place Injury of back Injury of head and neck Intermittent complete heart block Irregular heartbeat Ischemic cardiomyopathy Kidney disease [place] current use of anticoagulant 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 On home oxygen therapy Osteoporosis Paroxysmal atrial fibrillation Pericardial effusion after operative procedure Perirectal abscess Persistent atrial fibrillation Pure hypercholesterolemia Restless legs Secondary pulmonary arterial hypertension Shortness of breath on exertion Sick sinus syndrome Smoker Spinal stenosis of lumbar region Stage 3a chronic kidney disease (CKD) Stroke Symptomatic bradycardia TIA (transient ischemic attack) Tobacco use disorder Uncontrolled pain Wears dentures Wears glasses Home Medications albuterol sulfate 90 mcg/actuation breath activated powder inhaler 2 puff inhalation Q4H PRN Shortness Of Breath 09/25/15 [History Last Taken 08/23/22] cholecalciferol (vitamin D3) 25 mcg (1,000 unit) tablet 1,000 unit PO DAILY SUPPLEMENT 09/25/15 [History Last Taken 08/24/22] folic acid 1 mg tablet 1 mg PO QHS SUPPLEMENT 06/24/16 [History Last Taken 08/23/22] pantoprazole 40 mg tablet,delayed release 40 mg PO BID ACID REFLUX 01/02/18 [History Last Taken 08/24/22] tiotropium 2.5 mcg-olodaterol 2.5 mcg/actuation mist for inhalation (Stiolto Respimat) 1 puff inhalation BID ASTHMA 06/18/21 [History Last Taken 08/24/22] ipratropium 0.5 mg-albuterol 3 mg (2.5 mg base)/3 mL nebulization soln 3 ml inhalation 4X/DAY SHORTNESS OF BREATH 11/25/21 [History Last Taken 04/06/22] ferrous sulfate 325 mg (65 mg iron) tablet 325 mg PO BID IRON SUPPLEMENT 04/06/22 [History Last Taken 08/24/22] buprenorphine 15 mcg/hour weekly transdermal patch 15 mcg transdermal FULLER PAIN 08/24/22 [History Last Taken 08/15/22] nitroglycerin 0.4 mg sublingual tablet 0.4 mg sublingual Q5M PRN Chest Pain #25 tabs 09/17/22 [Rx Last Taken Unknown] clopidogrel 75 mg tablet 75 mg PO DAILY antiplatelet 03/29/23 [History Last Taken Unknown] rosuvastatin 40 mg tablet (Crestor) 40 mg PO DAILY cholesterol 03/29/23 [History Last Taken Unknown] lactulose 10 gram/15 mL (15 mL) oral solution 20 g (30 mL) PO DAILY #1,440 mL 04/04/23 [Rx Last Taken Unknown] furosemide 20 mg tablet 20 mg PO DAILY dose has been decreased #90 tabs 04/25/23 [Rx Last Taken Unknown] potassium chloride 10 mEq tablet,extended release 10 meq PO DAILY #30 tabs 04/25/23 [Rx Last Taken Unknown] amiodarone 200 mg tablet 200 mg PO DAILY afib #90 tabs 04/28/23 [Rx Last Taken Unknown] empagliflozin 10 mg tablet (Jardiance) 10 mg PO DAILY heart health #90 tabs 04/28/23 [Rx Last Taken Unknown] metoprolol succinate 100 mg tablet,extended release 24 hr 100 mg PO Q12H blood pressure #180 tabs 04/28/23 [Rx Last Taken Unknown] warfarin 5 mg tablet 2.5 - 5 mg PO DAILY BLOOD THINNER 05/01/23 [History Last Taken Unknown] Allergy/AdvReac Type Severity Reaction Status Date / Time No Known Allergies Allergy Verified 05/01/23 17:56 Family History Son , age 44 from [place] CAD (coronary artery disease) Myocardial infarction Sudden cardiac Brother CAD (coronary artery disease) Pt states all nine of his siblings have heart problems Sister CAD (coronary artery disease) Patient states all nine of his siblings have heart problems Other History of mechanical aortic valve replacement Surgical History Cardiac pacemaker in situ H/O cardiac catheterization History of coronary artery stent placement (~06/28/11) History of coronary artery stent placement History of esophagogastroduodenoscopy (EGD) (~10/2021) History of left heart catheterization History of lumbar fusion History of mechanical aortic valve replacement (~03/27/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 Hx of CABG Presence of biventricular implantable cardioverter-defibrillator (ICD) S/P CABG x 1 (~03/27/93) Status post cardiac surgery Social History household members: family Smoking Status: Former smoker alcohol intake: never substance use type: does not use caffeine: No ROS ROS Narrative Pertinent positives and pertinent negatives as noted in HPI. All other systems were reviewed and are negative Vital Signs Vital Signs Vital Signs: 05/01/23 17:56 05/01/23 18:01 05/01/23 18:04 Temperature 97.7 F L Temperature Source Oral Pulse Rate 60 60 Respiratory Rate 18 20 H Respiratory Effort Short of Breath Blood Pressure 96/57 L 100/58 L Blood Pressure Mean 70 72 Pulse Ox 97 100 Oxygen Delivery Method Room Air Room Air 05/01/23 18:36 05/01/23 18:56 05/01/23 20:08 Temperature 98.0 F Temperature Source Pulse Rate 67 60 60 Respiratory Rate 14 12 13 Respiratory Effort Blood Pressure 101/55 L 102/63 Blood Pressure Mean 70 76 Pulse Ox 98 98 Oxygen Delivery Method Room Air Weight Weight: 63.7 kg Body Mass Index (BMI) 20.1 Physical Exam Narrative Physical exam: General: Well-nourished, well-developed. Head: Normocephalic, atraumatic, no tenderness Eyes: Vision is grossly intact. EOMI ENT, no trauma, moist mucous membranes, no rhinorrhea Neck: Nontender, No thyromegaly. CVS: Regular rate and rhythm. S1-S2 present. No murmur, gallop or rub. Respiratory : clear to auscultation bilaterally, chest wall nontender Abdomen: Soft, nontender, nondistended, normal bowel sounds, no masses : Deferred Back: Nontender, no CVA tenderness, no midline spinal tenderness, deformities, step-offs Extremities: Nontender full range of motion, no trauma Skin:pallor, no trauma, abrasions Neuro: Alert, oriented, cranial nerves II through XII grossly intact. Psychiatry: Normal mood. Normal affect. Not depressed. Not anxious. Results Lab / Micro Data 05/01/23 18:12 05/01/23 18:12 Labs: Laboratory Results - last 24 hr 05/01/23 18:12: WBC 4.9, RBC 2.63 L, Hgb 7.8 L, Hct 25.8 L, MCV 98.1 H, MCH 29.7, MCHC 30.2 L, RDW Std Deviation 57.3 H, RDW Coeff of [place]aly[place] 16.0 H, Plt Count 127 L, MPV 10.7, Immature Gran % (Auto) 0.600, Neut % (Auto) 73.7 H, Lymph % (Auto) 17.2 L, [place] % (Auto) 7.1, Eos % (Auto) 0.6, Baso % (Auto) 0.8, Absolute Neuts (auto) 3.6, Absolute Lymphs (auto) 0.85, Nucleated RBC % 0, PT 113.0 H, INR 15.0 H*, Sodium 142, Potassium 4.0, Chloride 109 H, Carbon Dioxide 26.0, Anion Gap 7, BUN 53 H, Creatinine 2.53 H, Estim Creat Clear Calc 19.23, Est GFR (MDRD) Af Amer 31 L, Est GFR (MDRD) Non-Af 26 L, BUN/Creatinine Ratio 20.9 H, Glucose 120 H, Calcium 8.3 L, Troponin I High Sens 20, B-Natriuretic Peptide 183.1 H Micro: Microbiology 05/01/23 19:12 Stool Stool Occult Blood (COREEN) - Final Occult Blood Positive Rhythm Strip Rhythm Strip: paced Rate: 60 Ectopy: None Radiology Impression Chest X-Ray 05/01/23 18:30 IMPRESSION: No acute cardiopulmonary disease. Electronically Signed: Vilma Fritz MD at 18:51 EDT , Assessment & Plan Assessment/Plan (1) Acute blood loss anemia: (2) H/O prosthetic aortic valve replacement: (3) HFrEF (heart failure with reduced ejection fraction): (4) History of mechanical aortic valve replacement: PLAN: Plan Acute blood loss anemia ED doctor reports melena on rectal examination; positive occult stools. Two units of packed red blood cells were ordered at the emergency department to transfuse 1. Of note patient has weird antibodies to blood. 5 mg of vitamin K IV was ordered at the emergency department. Blood pressures are soft. Will give additional 5mg of vitamin K. Will give Kcentra. Fresh frozen plasma 1 unit was ordered at the emergency department to be transfused. Of note patient has mechanical aortic valve which we should be careful about clotting. However his INR is excessively high. Will trend INR. We will hold off IV fluids at this time. Will also hold of patient Lasix. If patient becomes hypotensive will give fluid bolus. Protonix drip started emergency department and continued. Started on ceftriaxone IV at the emergency department and continued. GI consult. Chronic pain Buprenorphine patch continued. Chronic heart failure with reduced ejection fraction/AICD Impression of chest x-ray by radiologist: No acute cardiopulmonary disease Patient is stable from heart failure standpoint his present symptoms is most likely from acute blood anemia. We will hold off Lasix as above. We will continue empagliflozin. While n.p.o. we will check Accu-Cheks. Hold off home Lasix. Hold off metoprolol. AICD was interrogated at the ED with negative results. [place] Creatinine presentation was up to 2.53. In the past month his creatinine has been elevated and is about current value or even worse. However looking back patient has creatinine baseline of around 1.45. BUN on presentation was 53 with the highest so far. Likely secondary to upper GI bleed. Hold Lasix as above. Patient is to get FFP and packed red blood cells. Trend BMP. Tobacco abuse Reportedly quit smoking about 8 weeks ago. Counseled DVT prophylaxis: Not a candidate as patient is supratherapeutic on his INR. CODE STATUS: Patient is DNR CCA no intubation. Discussed with patient that if he is to undergo a scope his DNR status will be automatically revoke at that time. Patient agrees. Time spent in the patient's overall evaluation,decision-making process, review of diagnostic data, adjustment of management, discussion with other providers, nursing and ancillary staff involved in patient's care documentation, 70 minutes. Charges/Coding Visit Charges Inpatient E&M: 38107 Init Hosp L3
[2023-05-01 21:43] LABS: Platelet Count 104 K/mm3 (150-450); RET-HE 34.5 pg (30-35); Reticulocyte Count 1.96 % (0.5-1.5)
[2023-05-01] MEDS: Phytonadione (Vit K) 5 MG in 0.9% Normal Saline (50mL Bag) 50 ML 153 MG IV (21:59)
[2023-05-01] MEDS: Folic Acid 1 MG Tablet PO (22:02)
[2023-05-01] MEDS: Atorvastatin Calcium 80 MG Tablet PO (22:02)
[2023-05-01 22:33] LABS: Ferritin 45 ng/mL (26-388); Iron 63 ug/dL (65-175); Iron Binding Capacity,Total 241 ug/dL (250-450); PERCENT IRON SATURATION 26.1 % (15.0-55.0)
[2023-05-02] VITALS (43 sets, daily range): BP systolic 78–145; BP diastolic 41–77; PULSE 60–66; RESP 7–20; TEMP 36.2–36.7; O2SAT 94–100; BMI 20.4
[2023-05-02] MEDS: 0.9% Normal Saline (1000mL) 1,000 ML 999 ML IV ×2 (00:49→05:27)
[2023-05-02] MEDS: Ipratropium/Albuterol Sulfate 3 ML AMPUL.NEB INHALATION ×4 (04:18→18:59)
[2023-05-02 04:55] LABS: International Normalized Ratio 1.1; Prothrombin Time (Protime)PT. 14.1 SECONDS (11.7-14.9)
[2023-05-02 05:01] LABS: Anion Gap 4 (5-15); BUN 46 mg/dL (7-18); BUN/Creat Ratio 23.8 RATIO (10-20); Calcium,Total 7.2 mg/dL (8.5-10.1); Chloride 118 mmol/L (98-107); Creatinine, Serum 1.93 mg/dL (0.70-1.30); EST Glomerular Filtration Rate 35 mL/min (>60); Est Glom Filt Rate - Afr Amer 43 mL/min (>60); Estimated Creatinine Clearance 24.34 ml/min; Glucose 81 mg/dL (74-106); Potassium 3.9 mmol/L (3.5-5.1); Sodium Level 146 mmol/L (136-145)
[2023-05-02 05:38] LABS: Absolute Lymphocyte Count 0.69 X10^3/uL (0.83-4.51); Absolute Neutrophil Count 3.8 X10^3/uL (2.0-7.7); Basophil# 0.02 X10^3/uL; Basophil% 0.4 % (0-1); Eosinophil# 0.05 X10^3/uL; Hemoglobin 6.2 g/dL (13.0-16.5); Lymphocyte # 0.69 X10^3/ul (0.83-4.51); Lymphocyte % 13.9 % (19-41); Mean Corp Hgb Conc 29.5 g/dL (32-36); Mean Corpuscular Hgb 29.7 pg (27.0-32.0); Mean Corpuscular Volume 100.5 fL (80-94); Monocyte# 0.31 X10^3/uL; Monocyte% 6.3 % (0-10); NRBC Flagged by Analyzer 0 % (0-5); Neutrophil # 3.84 X10^3/uL (2.7-7.7); Neutrophil % 77.6 % (47-70); POSITIVE COUNT YES; Platelet Count 86 K/mm3 (150-450); RBC Distribution Width CV 16.3 % (11.6-14.6); RBC Distribution Width SD 59.3 fl (35.1-43.9); Red Blood Count 2.09 M/mm3 (4.6-6.2)
[2023-05-02 05:39] LABS: Differential Indicated SCAN CRITERIA MET
[2023-05-02 06:12] LABS: Anisocytosis 1+; Macrocytosis 1+
[2023-05-02 06:13] LABS: Hypochromasia 1+; Platelet Estimate MOD DEC (ADEQ)
[2023-05-02] MEDS: Pantoprazole Sodium 80 MG in 0.9% Normal Saline (100mL Bag) 80 ML 10 MG CONT INF ×2 (06:13→16:18)
[2023-05-02] MEDS: 0.9% Saline Lock 10 ML Syringe IV (06:14)
--- NOTE | 2023-05-02 06:22 | PCM.PN.BLA ---
Progress Note With npo status and with hypoglycemia discontinue Farxiga. Amp of dextrose ordered; D10 infusion ordered. SCD ordered. Aortic Valve replacement. INR 1.1 With hypotension and abla inr was reversed. Will continue to hold anticoagulation Cardiology consult.
[2023-05-02] MEDS: Dextrose 10%-Water 250 ML 20 ML IV (06:29)
[2023-05-02] MEDS: Dextrose 50%-Water 25 GM/50 ML DISP.SYRIN IV (06:29)
[2023-05-02 06:34] LABS: Bedside Glucose 66 mg/dL (74-106)
[2023-05-02 07:19] LABS: Bedside Glucose 166 mg/dL (74-106)
--- NOTE | 2023-05-02 07:27 | EX.PCM.CONCC ---
Assessment & Plan Assessment/Plan (1) Acute blood loss anemia: PLAN: Plan RECOMMENDATIONS: 1. Transfuse blood products as ordered. 2. Gastroenterology consultation pending. Tentative plans for endoscopic evaluation today. 3. Continue PPI therapy and ceftriaxone. 4. As needed bronchodilators. 5. Resume systemic anticoagulation as quickly as safely feasible, given underlying mechanical aortic valve. IMPRESSIONS: 1. Acute blood loss anemia in the setting of presenting coagulopathy The patient presented to the hospital with melena and weakness in the setting of a supratherapeutic INR. The patient appears to be experiencing acute blood loss anemia. His coagulopathy was fully reversed. He has a pending evaluation by gastroenterology, with tentative plans for endoscopic evaluation. In the interim, recommend transfusion of blood products as ordered. Check H&H posttransfusion. Continue PPI therapy as ordered. The patient will need to be resumed on some form of systemic anticoagulation, preferably heparin infusion, once feasible, given his underlying mechanical aortic valve. 2. History of coronary artery disease status post CABG/atrial fibrillation/mechanical aortic valve/ischemic cardiomyopathy Continue to hold Coumadin for now. I would recommend starting a heparin infusion once gastroenterology evaluation is complete. Continue baseline cardiac medications as tolerated. 3. Chronic pain/hyperlipidemia/tobacco abuse history Complicates care, management, recovery and prognosis. Continue home medications as indicated. This note was generated with [employer]ora dictation software. It may contain incorrect words, spelling, and punctuation that were not noted in checking the note before signing. HPI Consult Data Date of Consult: 05/02/23 HPI Narrative Reason for Consultation: Acute blood loss anemia HPI Narrative: The patient is an 83-year-old male, with a history as outlined below, who presented to the emergency department via EMS on May 01 with shortness of breath and chest discomfort. The patient has a known history of coronary artery disease status post CABG, atrial fibrillation and is status post aortic valve replacement with a [place] mechanical aortic valve prosthesis. The patient has also been followed by gastroenterology on an outpatient basis due to a history of iron deficiency anemia. The patient has been experiencing frequent loose stools and melena. He reports associated dizziness and lightheadedness. On presentation to the emergency department, the patient was noted to be afebrile with a presenting blood pressure of 96/57 mmHg. He was maintaining appropriate oxygen saturations on room air. Initial laboratory evaluation revealed a hemoglobin of 7.8 g/dL. Previously, on April 25, the patient was documented to have a hemoglobin of 12.6 g/dL. Platelet count was low at 127,000. Coagulation profile was notable for an INR of 15. Chemistry profile was notable for a creatinine of 2.53. Troponin was negative. BNP was elevated at 183. Chest x-ray demonstrated no acute cardiopulmonary process. The patient was ultimately administered vitamin K and Kcentra. He was administered FFP and packed red blood cells. The patient was subsequently admitted to the medical intensive care unit for further management. [facility] Medical History Acute respiratory failure with hypoxia Ambulates with cane Anemia Anemia due to chronic blood loss Anticoagulant long-term use Arthritis Asthma Atherosclerotic heart disease of [place] coronary artery without angina pectoris Atrial fibrillation Back pain Back pain due to injury Cardiology follow-up encounter Chest pain CHF (congestive heart failure) Chronic airway obstruction Chronic anticoagulation Chronic cough Chronic pain Chronic pain syndrome Chronic systolic (congestive) heart failure COPD (chronic obstructive pulmonary disease) COPD (chronic obstructive pulmonary disease) Coronary artery disease Difficulty swallowing Erosion of pacemaker pocket due to and not concurrent with implantation of cardiac pacemaker Essential hypertension Former smoker Gastric reflux GERD (gastroesophageal reflux disease) Heart attack HFrEF (heart failure with reduced ejection fraction) High cholesterol History of echocardiogram History of edema History of GI bleed History of heart attack History of pain when walking History of stress test Hx of fracture of ankle Hx of fracture of ankle Hypertension ICD (implantable cardioverter-defibrillator) in place Injury of back Injury of head and neck Intermittent complete heart block Irregular heartbeat Ischemic cardiomyopathy Kidney disease custodial current use of anticoagulant 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 On home oxygen therapy Osteoporosis Paroxysmal atrial fibrillation Pericardial effusion after operative procedure Perirectal abscess Persistent atrial fibrillation Pure hypercholesterolemia Restless legs Secondary pulmonary arterial hypertension Shortness of breath on exertion Sick sinus syndrome Smoker Spinal stenosis of lumbar region Stage 3a chronic kidney disease (CKD) Stroke Symptomatic bradycardia TIA (transient ischemic attack) Tobacco use disorder Uncontrolled pain Wears dentures Wears glasses Home Medications albuterol sulfate 90 mcg/actuation breath activated powder inhaler 2 puff inhalation Q4H PRN Shortness Of Breath 09/25/15 [History Last Taken 08/23/22] cholecalciferol (vitamin D3) 25 mcg (1,000 unit) tablet 1,000 unit PO DAILY SUPPLEMENT 09/25/15 [History Last Taken 08/24/22] folic acid 1 mg tablet 1 mg PO QHS SUPPLEMENT 06/24/16 [History Last Taken 08/23/22] pantoprazole 40 mg tablet,delayed release 40 mg PO BID ACID REFLUX 01/02/18 [History Last Taken 08/24/22] tiotropium 2.5 mcg-olodaterol 2.5 mcg/actuation mist for inhalation (Stiolto Respimat) 1 puff inhalation BID ASTHMA 06/18/21 [History Last Taken 08/24/22] ipratropium 0.5 mg-albuterol 3 mg (2.5 mg base)/3 mL nebulization soln 3 ml inhalation 4X/DAY SHORTNESS OF BREATH 11/25/21 [History Last Taken 04/06/22] ferrous sulfate 325 mg (65 mg iron) tablet 325 mg PO BID IRON SUPPLEMENT 04/06/22 [History Last Taken 08/24/22] buprenorphine 15 mcg/hour weekly transdermal patch 15 mcg transdermal FULLER PAIN 08/24/22 [History Last Taken 08/15/22] nitroglycerin 0.4 mg sublingual tablet 0.4 mg sublingual Q5M PRN Chest Pain #25 tabs 09/17/22 [Rx Last Taken Unknown] clopidogrel 75 mg tablet 75 mg PO DAILY antiplatelet 03/29/23 [History Last Taken Unknown] rosuvastatin 40 mg tablet (Crestor) 40 mg PO DAILY cholesterol 03/29/23 [History Last Taken Unknown] lactulose 10 gram/15 mL (15 mL) oral solution 20 g (30 mL) PO DAILY #1,440 mL 04/04/23 [Rx Last Taken Unknown] furosemide 20 mg tablet 20 mg PO DAILY dose has been decreased #90 tabs 04/25/23 [Rx Last Taken Unknown] potassium chloride 10 mEq tablet,extended release 10 meq PO DAILY #30 tabs 04/25/23 [Rx Last Taken Unknown] amiodarone 200 mg tablet 200 mg PO DAILY afib #90 tabs 04/28/23 [Rx Last Taken Unknown] empagliflozin 10 mg tablet (Jardiance) 10 mg PO DAILY heart health #90 tabs 04/28/23 [Rx Last Taken Unknown] metoprolol succinate 100 mg tablet,extended release 24 hr 100 mg PO Q12H blood pressure #180 tabs 04/28/23 [Rx Last Taken Unknown] warfarin 5 mg tablet 2.5 - 5 mg PO DAILY BLOOD THINNER 05/01/23 [History Last Taken Unknown] Allergy/AdvReac Type Severity Reaction Status Date / Time No Known Allergies Allergy Verified 05/01/23 17:56 Family History Son , age 44 from [place] CAD (coronary artery disease) Myocardial infarction Sudden cardiac Brother CAD (coronary artery disease) Pt states all nine of his siblings have heart problems Sister CAD (coronary artery disease) Patient states all nine of his siblings have heart problems Other History of mechanical aortic valve replacement Surgical History Cardiac pacemaker in situ H/O cardiac catheterization History of coronary artery stent placement (~06/28/11) History of coronary artery stent placement History of esophagogastroduodenoscopy (EGD) (~10/2021) History of left heart catheterization History of lumbar fusion History of mechanical aortic valve replacement (~03/27/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 Hx of CABG Presence of biventricular implantable cardioverter-defibrillator (ICD) S/P CABG x 1 (~03/27/93) Status post cardiac surgery Social History household members: family Smoking Status: Former smoker alcohol intake: never substance use type: does not use caffeine: No ROS ROS Narrative 10 systems were reviewed with pertinent positives as noted in the HPI above. Physical Exam Const alert and no apparent distress General Appearance: cooperative HEENT normocephalic and head/scalp atraumatic Eyes PERRL, EOMs intact bilaterally and conjunctivae normal Neck supple General: trachea midline Chest inspection of chest normal Resp normal respiratory effort Auscultation: Negative for rales, rhonchi or wheezes Cardio regular rate, S1 normal heart sound and S2 normal heart sound Heart Sounds: murmur GI normal to inspection, nondistended, normoactive bowel sounds Extremity no clubbing, cyanosis or edema Skin no rashes or lesions noted Neuro CN's II-XII intact bilaterally and no focal motor deficits Psych cooperative and affect normal Lab / Micro Data 05/02/23 05:25 05/02/23 03:50 Labs: Laboratory Results - last 24 hr 05/01/23 18:12: WBC 4.9, RBC 2.63 L, Hgb 7.8 L, Hct 25.8 L, MCV 98.1 H, MCH 29.7, MCHC 30.2 L, RDW Std Deviation 57.3 H, RDW Coeff of [place] 16.0 H, Plt Count 127 L, MPV 10.7, Immature Gran % (Auto) 0.600, Neut % (Auto) 73.7 H, Lymph % (Auto) 17.2 L, [place] % (Auto) 7.1, Eos % (Auto) 0.6, Baso % (Auto) 0.8, Absolute Neuts (auto) 3.6, Absolute Lymphs (auto) 0.85, Nucleated RBC % 0, PT 113.0 H, INR 15.0 H*, Sodium 142, Potassium 4.0, Chloride 109 H, Carbon Dioxide 26.0, Anion Gap 7, BUN 53 H, Creatinine 2.53 H, Estim Creat Clear Calc 19.23, Est GFR (MDRD) Af Amer 31 L, Est GFR (MDRD) Non-Af 26 L, BUN/Creatinine Ratio 20.9 H, Glucose 120 H, Calcium 8.3 L, Iron 63 L, TIBC 241 L, Iron Saturation 26.1, Ferritin 45, Troponin I High Sens 20, B-Natriuretic Peptide 183.1 H, Folate 64.70 H 05/01/23 19:16: Blood Type O POSITIVE, Antibody Screen NEGATIVE 05/01/23 21:34: Retic Count 1.96 H, Immature Retic Fraction 25.10 H, Retic Hgb Equivalent 34.5 05/02/23 03:50: PT 14.1, INR 1.1, Sodium 146 H, Potassium 3.9, Chloride 118 H, Carbon Dioxide 24.0, Anion Gap 4 L, BUN 46 H, Creatinine 1.93 H, Estim Creat Clear Calc 24.34, Est GFR (MDRD) Af Amer 43 L, Est GFR (MDRD) Non-Af 35 L, BUN/Creatinine Ratio 23.8 H, Glucose 81, Calcium 7.2 L 05/02/23 05:25: WBC 5.0, RBC 2.09 L, Hgb 6.2 L, Hct 21.0 L, MCV 100.5 H, MCH 29.7, MCHC 29.5 L, RDW Std Deviation 59.3 H, RDW Coeff of [place] 16.3 H, Plt Count 86 L, MPV 11.0, Immature Gran % (Auto) 0.800, Neut % (Auto) 77.6 H, Lymph % (Auto) 13.9 L, [place] % (Auto) 6.3, Eos % (Auto) 1.0, Baso % (Auto) 0.4, Absolute Neuts (auto) 3.8, Absolute Lymphs (auto) 0.69 L, Nucleated RBC % 0, Platelet Estimate MOD DEC, Hypochromasia 1+, Anisocytosis 1+, Macrocytosis 1+ 05/02/23 06:16: POC Glucose 66 L 05/02/23 06:58: POC Glucose 166 H Micro: Microbiology 05/01/23 19:12 Stool Stool Occult Blood (COREEN) - Final Occult Blood Positive Rhythm Strip Rhythm Strip: paced Rate: 60 Ectopy: None Radiology Impression Chest X-Ray 05/01/23 18:30 IMPRESSION: No acute cardiopulmonary disease. Electronically Signed: Vilma Fritz MD at 18:51 EDT , Charges/Coding Visit Charges Inpatient E&M: 63474 Init Hosp L3
[2023-05-02 08:19] LABS: Vitamin B12 379 pg/mL (211-911)
--- NOTE | 2023-05-02 10:00 | NURSING ---
This RN called blood bank staff to question status of ordered blood. Per staff, blood has not arrived from the [place] yet and no ETA available. Dr. Willoughby notified.
--- NOTE | 2023-05-02 10:06 | PN_ITS ---
Subjective Subjective Patient seen and examined. He had no active complaints. He denied any fever, chills, cough, chest pain, palpitations, dizziness, nausea, vomiting or any other symptoms. Review of systems is otherwise negative. His Hb today is 6.2. He is awaiting his PRBCs to arrive from the [place]. He is for EGD this morning. Objective Data Objective Data Vital Signs: Vital Signs Temp Pulse Resp BP Pulse Ox O2 Del Method 97.4 F L 60 12 99/51 L 100 Room Air 05/02/23 08:31 05/02/23 09:15 05/02/23 09:15 05/02/23 08:31 05/02/23 09:15 05/02/23 09:15 Oxygen Delivery Method Room Air Weight: 142 lb 6.698 oz Body Mass Index (BMI) 20.4 Intake & Output: Intake and Output for Last 24 Hours 04/30/23 05/01/23 05/02/23 23:59 23:59 23:59 Intake Total 506.0 / 506.0 2146.99 / 2146.99 Output Total 200 / 200 100 / 100 Balance 306.0 / 306.0 2046.99 / 2046.99 Lab / Micro Data 05/02/23 05:25 05/02/23 03:50 Labs: Laboratory Results - last 24 hr 05/01/23 18:12: WBC 4.9, RBC 2.63 L, Hgb 7.8 L, Hct 25.8 L, MCV 98.1 H, MCH 29.7, MCHC 30.2 L, RDW Std Deviation 57.3 H, RDW Coeff of Kalyan 16.0 H, Plt Count 127 L, MPV 10.7, Immature Gran % (Auto) 0.600, Neut % (Auto) 73.7 H, Lymph % (Auto) 17.2 L, Garrard % (Auto) 7.1, Eos % (Auto) 0.6, Baso % (Auto) 0.8, Absolute Neuts (auto) 3.6, Absolute Lymphs (auto) 0.85, Nucleated RBC % 0, PT 113.0 H, INR 15.0 H*, Sodium 142, Potassium 4.0, Chloride 109 H, Carbon Dioxide 26.0, Anion Gap 7, BUN 53 H, Creatinine 2.53 H, Estim Creat Clear Calc 19.23, Est GFR (MDRD) Af Amer 31 L, Est GFR (MDRD) Non-Af 26 L, BUN/Creatinine Ratio 20.9 H, Glucose 120 H, Calcium 8.3 L, Iron 63 L, TIBC 241 L, Iron Saturation 26.1, Ferritin 45, Troponin I High Sens 20, B-Natriuretic Peptide 183.1 H, Folate 64 .70 H 05/01/23 19:16: Blood Type O POSITIVE, Antibody Screen NEGATIVE 05/01/23 21:34: Retic Count 1.96 H, Immature Retic Fraction 25.10 H, Retic Hgb Equivalent 34.5, Vitamin B12 379 05/02/23 03:50: PT 14.1, INR 1.1, Sodium 146 H, Potassium 3.9, Chloride 118 H, Carbon Dioxide 24.0, Anion Gap 4 L, BUN 46 H, Creatinine 1.93 H, Estim Creat Clear Calc 24.34, Est GFR (MDRD) Af Amer 43 L, Est GFR (MDRD) Non-Af 35 L, BUN/Creatinine Ratio 23.8 H, Glucose 81, Calcium 7.2 L 05/02/23 05:25: WBC 5.0, RBC 2.09 L, Hgb 6.2 L, Hct 21.0 L, MCV 100.5 H, MCH 29.7, MCHC 29.5 L, RDW Std Deviation 59.3 H, RDW Coeff of Kalyan 16.3 H, Plt Count 86 L, MPV 11.0, Immature Gran % (Auto) 0.800, Neut % (Auto) 77.6 H, Lymph % (Auto) 13.9 L, Garrard % (Auto) 6.3, Eos % (Auto) 1.0, Baso % (Auto) 0.4, Absolute Neuts (auto) 3.8, Absolute Lymphs (auto) 0.69 L, Nucleated RBC % 0, Platelet Estimate MOD DEC, Hypochromasia 1+, Anisocytosis 1+, Macrocytosis 1+ 05/02/23 06:16: POC Glucose 66 L 05/02/23 06:58: POC Glucose 166 H Micro: Microbiology 05/01/23 19:12 Stool Stool Occult Blood (COREEN) - Final Occult Blood Positive Radiography Diagnostic Testing: Radiology Impression Chest X-Ray 05/01/23 18:30 IMPRESSION: No acute cardiopulmonary disease. Electronically Signed: Vilma Mischiu, MD at 18:51 EDT , Rhythm Strip Rhythm Strip: paced Rate: 60 Ectopy: None Physical Exam Const alert and no apparent distress General Appearance: cooperative HEENT normocephalic, head/scalp atraumatic, moist oral mucous membranes and oropharynx normal Eyes PERRL and EOMs intact bilaterally Neck supple and no JVD Lymph Lymphatic: no lymphadenopathy noted Resp normal respiratory effort, normal air movement and clear to auscultation bilaterally Cardio regular rate, regular rhythm, S1 normal heart sound and S2 normal heart sound Peripheral Pulses: pulses 2+ throughout GI normal to inspection, nondistended, normoactive bowel sounds, soft to palpation, non-tender and non-distended Extremity normal capillary refill, no clubbing, cyanosis or edema and no calf tenderness Skin General Skin Exam: no breakdown Neuro CN's II-XII intact bilaterally, no focal motor deficits, no sensory deficits noted and deep tendon reflexes 2+ bilaterally Motor Exam: strength 5/5 throughout and general weakness Psych thought process normal and cooperative Appearance: appropriate Assessment & Plan Assessment/Plan (1) Acute upper GI bleed: (2) Acute blood loss anemia: (3) Supratherapeutic INR: PLAN: Plan #Acute on chronic anemia due to acute blood loss anemia * admitted with a complaint of shortness of breath and melena stools. Stool for occult blood was positive * INR was ~ 15. He received K Centra and vitamin K; INR is now ~ 1 * Hb this morning is 6.2. He is awaiting PRBCs from the [facility] in light of presence of antibodies * on IV PPI drip * gastroenterology on board. For EGD today. * keep NPO for now * #Supratherapeutic iNR: resolved with K Centra and Vitamin K #HFrEF: not in exacerbation. lasix held for now. ON Jardiance. Metoprolol also held. #SALVADOR on CKD 3: Cr was 2.53; now down to 1.93. Baseline is ~ 1.4. WIll trend Cr and kidneyu function #HIstory of aortic valve stenosis s/p artificial aortic valve: he has a JSt Rachid aortic valve in place. Coumadin on hold due to supratherapeutic iNR. #Nicotine dependence: counseled to quit. #Chronic pain: on buprenophine patch DVT prophylaxis: SCDs Charges/Coding Visit Charges Inpatient E&M: 51119 Subs Hosp L3
--- NOTE | 2023-05-02 10:19 | NURSING ---
Patient left unit for EGD with Dr. Muir, report given to Endo staff- all questions and concerns answered.
--- NOTE | 2023-05-02 12:04 | OP.EGD_ITS ---
Patient Name: Kash Montejo Procedure Date: 05/02/2023 10:55 AM Date of : 1940 Age: 83 Procedure: Upper GI endoscopy Indications: Epigastric abdominal pain, Melena Providers: Fazal Muir DO Medicines: Monitored Anesthesia Care Patient Profile: This is an 83 year old male. Refer to note in patient chart for documentation of history and physical. Patient has symptoms of acute epigastric abdominal pain and acute dyspepsia. Complications: No immediate complications. Procedure: Pre-Anesthesia Assessment: - Prior to the procedure, a History and Physical was performed, and patient medications and allergies were reviewed. The patient is competent. The risks and benefits of the procedure and the sedation options and risks were discussed with the patient. All questions were answered and informed consent was obtained. Patient identification and proposed procedure were verified by the physician in the pre-procedure area. Mental Status Examination: alert and oriented. Airway Examination: normal oropharyngeal airway and neck mobility. Respiratory Examination: clear to auscultation. CV Examination: normal. Prophylactic Antibiotics: The patient does not require prophylactic antibiotics. Prior Anticoagulants: The patient has taken no anticoagulant or antiplatelet agents. ASA Grade Assessment: III - A patient with severe systemic disease. After reviewing the risks and benefits, the patient was deemed in satisfactory condition to undergo the procedure. The anesthesia plan was to use monitored anesthesia care (MAC). Immediately prior to administration of medications, the patient was re-assessed for adequacy to receive sedatives. The heart rate, respiratory rate, oxygen saturations, blood pressure, adequacy of pulmonary ventilation, and response to care were monitored throughout the procedure. The physical status of the patient was re-assessed after the procedure. After obtaining informed consent, the endoscope was passed under direct vision. Throughout the procedure, the patient's blood pressure, pulse, and oxygen saturations were monitored continuously. The Colonoscope was introduced through the mouth, and advanced to the second part of duodenum. The upper GI endoscopy was accomplished without difficulty. The patient tolerated the procedure well. Scope In: 11:47:26 AM Scope Out: 11:52:13 AM Total Procedure Duration Time 0 hours 4 minutes 47 seconds Findings: The examined esophagus was normal. One oozing linear gastric ulcer with pigmented material was found in the gastric body. The lesion was 6 mm in largest dimension. Area was successfully injected with 5 mL of a 0.4 mg/mL solution of epinephrine for drug delivery. Five oozing linear gastric ulcers with a visible vessel were found in the stomach. The largest lesion was 5 mm in largest dimension. Coagulation for hemostasis using heater probe was successful. Estimated blood loss was minimal. No gross lesions were noted in the second portion of the duodenum. Impression: - Normal esophagus. - Oozing gastric ulcer with pigmented material. Injected. - Oozing gastric ulcers with a visible vessel. Treated with a heater probe. - No gross lesions in the second portion of the duodenum. - No specimens collected. Recommendation: - [facility]. - Resume previous diet. - Continue present medications. Procedure Code(s): --- Professional --- 56676, Esophagogastroduodenoscopy, flexible, transoral; with control of bleeding, any method 23089, 59,51, Esophagogastroduodenoscopy, flexible, transoral; with directed submucosal injection(s), any substance CPT copyright 2021 [employer]. All rights reserved. The codes documented in this report are preliminary and upon deck mechanic review may be revised to meet current compliance requirements. Fazal Muir DO 05/02/2023 12:03:48 PM This report has been signed electronically. Number of Addenda: 0 Note Initiated On: 05/02/2023 10:55 AM
--- NOTE | 2023-05-02 12:04 | OP.CCLET_ITS ---
05/02/2023 Guillermo Pritchard MD [address] [id number] Re : Upper GI endoscopy procedure for Kashamy Montejo Dear Dr. Pritchard This procedure was performed on Tuesday, May 02, 2023. My impressions and recommendations are as follows: Impressions : - Normal esophagus. - Oozing gastric ulcer with pigmented material. Injected. - Oozing gastric ulcers with a visible vessel. Treated with a heater probe. - No gross lesions in the second portion of the duodenum. - No specimens collected. Recommendations : - Return patient to [facility]. - Resume previous diet. - Continue present medications. My findings are described in the full procedure note, which is enclosed. If I can be of further assistance, please feel free to contact me at . Sincerely, Fazal Muir, 05/02/2023 12:03:48 PM This report has been signed electronically.
[2023-05-02 13:04] LABS: Bedside Glucose 93 mg/dL (74-106)
--- NOTE | 2023-05-02 15:15 | CASEMGMT ---
SURY MUNOZ chart review: Patient was admitted 03/29-04/02/23 for anemia. See SURY MUNOZ assessment from 03/30/23. Patient was discharge home with [facility]. Patient returned to [facility] ED for SOB. Patient was admitted for ABLA from GI Bleed. Hgb was 7.8 and received 1 unit of FFP. Patient is currently on a protonix gtt. GI consulted. SURY MUNOZ in to discuss readmission with patient. Patient states he has been attending his follow-up appts and taking his medications as prescribed. Patient wishes to return home with resumption of [facility], will follow progress with therapy. CM will continue to follow this patient and plan for a safe discharge.
--- NOTE | 2023-05-02 15:40 | CHAPLAIN ---
Type of Pastoral Visit _x__ Initial Visit ___ Follow-up Visit ___ On-call Visit ___ General Patient Visit ___ Spiritual Assessment ___ Family Conference ___ Bereavement ___ Rapid Response ___ Code Blue ___ Other (describe below) Pastoral Care Referral From _x__ Patient ___ Family ___ Nurse ___ Physician ___ Instructor Industrial Design ___ Machined Parts Quality Inspector ___ Other (describe below) Sacrament/Intervention _x__ Active listening ___ Anointing ___ Anglican ___ Bereavement ___ Communion ___ Rachele exploration ___ ___ Life review _x__ Prayer ___ Reconciliation ___ Sacrament of Sick _x__ Supportive presence ___ Wedding ___ Other (describe below) Pastoral Comments patient returned from a medical procedure but was alert and able to answer questions; daughter was present but soon left due to an appointment; offered presence and prayer for pt after asking how he might appreciate support; pt admitted to feeling sleepy but that a prayer would be helpful; prayer given and then left so pt could rest
[2023-05-02] MEDS: Ferrous Sulfate 325 MG Tablet PO (16:20)
--- NOTE | 2023-05-02 16:45 | NURSING ---
This RN contacted blood bank staff questioning status of ordered blood. Per lab staff, no blood has arrived from [place] yet. Patient stable at this time.
[2023-05-02 17:48] LABS: Bedside Glucose 120 mg/dL (74-106)
--- NOTE | 2023-05-02 21:25 | NURSING ---
Pt w/ order from Dr. Valenzuela for indwelling cath placement after evidence of retention. This RN went into patients room to place esparza, pt stating he has to urinate. 175ml into urinal. Post void bladder scan showed pt w/ 404 ml remaining in bladder, previous bladder scan showed 505. observed pt's lower abdomen, continues to remain distended, pt feeling pressure. Esparza placed at 2110 by this RN, pt tolerated well, 400 ml out after esparza placement
--- NOTE | 2023-05-02 21:30 | NURSING ---
Pt reporting SOB, lung sounds remained diminished, SpO2 ranging from 98 to 100%. Pt denies lightheadedness/ chest pain. Pt states he typically wears 2L nasal cannula at home at night. Placed pt on 2L nasal cannula for comfort.
[2023-05-02] MEDS: Ceftriaxone 1 GM/50 ML BAG IV (21:40)
[2023-05-02] MEDS: Folic Acid 1 MG Tablet PO (21:40)
[2023-05-02] MEDS: Atorvastatin Calcium 80 MG Tablet PO (21:40)
[2023-05-03] VITALS (25 sets, daily range): BP systolic 98–141; BP diastolic 41–78; PULSE 60–88; RESP 8–21; TEMP 36.3–36.6; O2SAT 96–100; BMI 20.5
[2023-05-03 00:09] LABS: Bedside Glucose 102 mg/dL (74-106)
[2023-05-03] MEDS: Pantoprazole Sodium 80 MG in 0.9% Normal Saline (100mL Bag) 80 ML 10 MG CONT INF ×3 (01:25→21:49)
[2023-05-03 04:50] LABS: Absolute Lymphocyte Count 0.44 X10^3/uL (0.83-4.51); Absolute Neutrophil Count 3.2 X10^3/uL (2.0-7.7); Basophil# 0.02 X10^3/uL; Basophil% 0.5 % (0-1); Eosinophil# 0.05 X10^3/uL; Eosinophils% 1.2 % (0-5); Hematocrit 26.7 % (40-54); Hemoglobin 8.1 g/dL (13.0-16.5); Lymphocyte # 0.44 X10^3/ul (0.83-4.51); Lymphocyte % 10.9 % (19-41); Mean Corp Hgb Conc 30.3 g/dL (32-36); Mean Corpuscular Hgb 29.5 pg (27.0-32.0); Mean Corpuscular Volume 97.1 fL (80-94); Mean Platelet Vol. 10.2 fl (6.2-12.0); Monocyte# 0.32 X10^3/uL; Monocyte% 7.9 % (0-10); NRBC Flagged by Analyzer 0 % (0-5); Neutrophil # 3.18 X10^3/uL (2.7-7.7); Neutrophil % 78.8 % (47-70); POSITIVE COUNT YES; POSITIVE DIFFERENTIAL YES; Platelet Count 81 K/mm3 (150-450); RBC Distribution Width CV 16.5 % (11.6-14.6); RBC Distribution Width SD 57.8 fl (35.1-43.9); Red Blood Count 2.75 M/mm3 (4.6-6.2)
[2023-05-03 05:01] LABS: Prothrombin Time (Protime)PT. 13.3 SECONDS (11.7-14.9)
[2023-05-03 05:02] LABS: Anion Gap 5 (5-15); BUN 29 mg/dL (7-18); BUN/Creat Ratio 16.2 RATIO (10-20); Calcium,Total 7.6 mg/dL (8.5-10.1); Chloride 120 mmol/L (98-107); Creatinine, Serum 1.79 mg/dL (0.70-1.30); EST Glomerular Filtration Rate 39 mL/min (>60); Est Glom Filt Rate - Afr Amer 47 mL/min (>60); Estimated Creatinine Clearance 27.61 ml/min; Glucose 96 mg/dL (74-106); Potassium 3.8 mmol/L (3.5-5.1); Sodium Level 147 mmol/L (136-145)
[2023-05-03 05:10] LABS: Differential Indicated SCAN CRITERIA MET
[2023-05-03 05:15] LABS: ERROR RESULT FLAG YES
[2023-05-03 05:18] LABS: Anisocytosis 1+; Macrocytosis 1+; Platelet Estimate MOD DEC (ADEQ)
[2023-05-03] MEDS: Ipratropium/Albuterol Sulfate 3 ML AMPUL.NEB INHALATION ×4 (06:53→18:53)
--- NOTE | 2023-05-03 07:10 | PN.CC_ITS ---
Assessment & Plan Assessment/Plan (1) Acute blood loss anemia: PLAN: Plan RECOMMENDATIONS: 1. Continue to monitor H&H and transfuse if hemoglobin drops below 7 g/dL. 2. Initiate weight-based heparin infusion. 3. Continue PPI therapy and ceftriaxone. 4. As needed bronchodilators. 5. Encourage incentive spirometer use and mobilize patient as tolerated. IMPRESSIONS: 1. Acute blood loss anemia in the setting of presenting coagulopathy The patient presented to the hospital with melena and weakness in the setting of a supratherapeutic INR. The patient was taken for endoscopic evaluation by gastroenterology with oozing gastric ulcers, which were injected and treated with a heater probe. The patient's hemoglobin improved with transfusion of blood products. He remains hemodynamically stable. Plan to continue pantoprazole per recommendations. I did speak with gastroenterology regarding his mechanical valve and need for systemic anticoagulation. They are comfortable with the initiation of a heparin infusion. 2. History of coronary artery disease status post CABG/atrial fibrillation/mechanical aortic valve/ischemic cardiomyopathy Continue to hold Coumadin for now. The patient will be started on a continuous heparin infusion today and blood counts will be monitored accordingly. Moss sfuse if hemoglobin drops below 7 g/dL. 3. Chronic pain/hyperlipidemia/tobacco abuse history Complicates care, management, recovery and prognosis. Continue home medications as indicated. This note was generated with [employer] dictation software. It may contain incorrect words, spelling, and punctuation that were not noted in checking the note before signing. Subjective Subjective The patient was seen and examined at the bedside this morning. Events from the last 24 hours have been reviewed. The patient is currently afebrile, hemodynamically stable and maintaining appropriate oxygen saturations on 2 L/min. The patient had an upper endoscopy performed yesterday which revealed oozing gastric ulcers which were injected and treated with a heater probe. The patient was also transfused 2 units of packed red blood cells overnight. Hemoglobin has improved to 8.1 g/dL. Platelet count was low at 81,000. INR was noted to be 1.0. The patient appeared to be anxious and distressed this morning over the presence of his Howell catheter. Therefore, his indwelling Howell was removed. Objective Data Objective Data The patient's most recent lab work, culture data and imaging studies have all been personally reviewed. Vital Signs: Vital Signs Temp Pulse Resp BP Pulse Ox O2 Del Method O2 Flow Rate 97.7 F L 60 21 H 130/77 H 100 Nasal Cannula 2 05/03/23 06:00 05/03/23 07:00 05/03/23 07:00 05/03/23 07:00 05/03/23 07:00 05/03/23 07:00 05/03/23 07:00 Oxygen Flow Rate (L/min) 2 Oxygen Delivery Method Nasal Cannula Weight: 142 lb 10.225 oz Body Mass Index (BMI) 20.5 Intake & Output: Intake and Output for Last 24 Hours 05/01/23 05/02/23 05/03/23 23:59 23:59 23:59 Intake Total 506.0 / 506.0 2445.49 / 2445.49 889.17 / 889.17 Output Total 200 / 200 1035 / 1035 370 / 370 Balance 306.0 / 306.0 1410.49 / 1410.49 519.17 / 519.17 Medical Nutrition Assessment Dietitian: Malnutrition Criteria Met Start: 05/02/23 10:39 Freq: Status: Active Protocol: Document 05/02/23 10:39 SLA (Rec: 05/02/23 10:39 SLA Desktop) Nutrition Malnutrition Evidence of Malnutrition Exists Yes Malnutrition (severe): Acute Illness/Injury Evidenced By Suboptimal Energy Intake ( Severe),Weight Loss (Severe) Clinical Problem Acute Disease or Injury Related Malnutrition Etiology related to acute illness and suboptimal energy intake Signs/Symptoms as evidenced by suspected 4.34 % unintended wt loss and <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 05/03/23 04:40 05/03/23 04:40 Labs: Laboratory Results - last 24 hr 05/01/23 19:16: Crossmatch See Detail 05/01/23 19:16: Crossmatch See Detail 05/01/23 21:34: Vitamin B12 379 05/02/23 06:58: POC Glucose 166 H 05/02/23 12:42: POC Glucose 93 05/02/23 17:27: POC Glucose 120 H 05/02/23 23:51: POC Glucose 102 05/03/23 04:40: WBC 4.0 L, RBC 2.75 L, Hgb 8.1 L, Hct 26.7 L, MCV 97.1 H, MCH 29.5, MCHC 30.3 L, RDW Std Deviation 57.8 H, RDW Coeff of Kalyan 16.5 H, Plt Count 81 L, MPV 10.2, Immature Gran % (Auto) 0.700, Neut % (Auto) 78.8 H, Lymph % (Auto) 10.9 L, Izard % (Auto) 7.9, Eos % (Auto) 1.2, Baso % (Auto) 0.5, Absolute Neuts (auto) 3.2, Absolute Lymphs (auto) 0.44 L, Nucleated RBC % 0, Diff Path Review May , Platelet Estimate MOD DEC, Anisocytosis 1+, Macrocytosis 1+, PT 13.3, INR 1.0, Sodium 147 H, Potassium 3.8, Chloride 120 H, Carbon Dioxide 22.0, Anion Gap 5, BUN 29 H, Creatinine 1.79 H, Estim Creat Clear Calc 27.61, Est GFR (MDRD) Af Amer 47 L, Est GFR (MDRD) Non-Af 39 L, BUN/Creatinine Ratio 16.2, Gl ucose 96, Calcium 7.6 L Micro: Microbiology 05/01/23 19:12 Stool Stool Occult Blood (COREEN) - Final Occult Blood Positive Rhythm Strip Rhythm Strip: paced Rate: 60 Ectopy: None Physical Exam Const alert and no apparent distress General Appearance: cooperative HEENT normocephalic and head/scalp atraumatic Eyes PERRL, EOMs intact bilaterally and conjunctivae normal Neck supple General: trachea midline Chest inspection of chest normal Resp normal respiratory effort Auscultation: Negative for rales, rhonchi or wheezes Cardio regular rate, S1 normal heart sound and S2 normal heart sound Heart Sounds: murmur GI normal to inspection, nondistended, normoactive bowel sounds Extremity no clubbing, cyanosis or edema Skin no rashes or lesions noted Neuro CN's II-XII intact bilaterally and no focal motor deficits Psych cooperative and affect normal Charges/Coding Visit Charges Inpatient E&M: 29403 Subs Hosp L2
--- NOTE | 2023-05-03 07:23 | NURSING ---
0710- pt calling out with call light and stating he feels like he can't breath and to just let me . Assessed pt, SpO2 100% on 2L NC, RR 21, lung sounds diminished w/ new expiratory wheeze, bilateral radial pulses present and 2+. Pt w/ moderate anxiety at this time, directed pt to slow RR/ deep breaths. RR 18 and pt continued w/ oxygen saturation of 100% on 2 L NC. Consulted oncoming day shift RN, Yasmany Butcher and updated on patient condition. Dr. Willoughby contacted by Yasmany Butcher RN.
--- NOTE | 2023-05-03 07:52 | NURSING ---
This RN and SURY Perez, were at bedside for handoff. Patient was in clear distress with labored breathing and moaning. He denied being in pain and at the same time said he hurt everywhere. Patient stated he couldn't catch his breath and I feel like I'm dying. Patient vital signs were all stable and unchanged on 2L oxygen per Ana and she also stated that she had been in patients room about 10-15 minutes before and he was calm and denied any needs. Lungs sounds with some expiratory wheezes on Left but not severe. Dr Willoughby notified, order received for STAT chest X-ray and coming to assess patient. After returning to patient's room, patient began to complain about esparza catheter and Dr Willoughby also arrived. Patient stated that the esparza was painful and was the source of his distress. Catheter inspected and found to be in good working order and positioned correctly per policy. Decision was made to discontinue esparza at this time and flomax ordered per Dr willoughby. Esparza removed by this RN and patient tolerated without complication.
[2023-05-03] MEDS: Heparin Injection (Vial) 5,000 UNIT/ML VIAL 4500 UNIT IV (08:30)
[2023-05-03] MEDS: HEPARIN/D5w 25,000 UNITS 25,000 UNITS/250 ML IV.SOLN. 10 UNITS CONT INF (08:36)
[2023-05-03] MEDS: Amiodarone 200 MG Tablet PO (08:38)
[2023-05-03] MEDS: Ferrous Sulfate 325 MG Tablet PO ×2 (08:38→16:58)
[2023-05-03] MEDS: Tamsulosin HCl 0.4 MG Capsule PO (08:45)
[2023-05-03 09:01] LABS: Partial Thromboplast Time 31.5 Seconds (24.1-36.2)
--- NOTE | 2023-05-03 10:57 | PN_ITS ---
Subjective Subjective Patient seen and examined. He feels better today. He has no active complaints and review of systems is otherwise negative. He has remained hemodynamically stable. He had EGD which showed bleeding gastric ulcer which was injected and treated with a heater probe. He has remained hemodynamically stable. Objective Data Objective Data Vital Signs: Vital Signs Temp Pulse Resp BP Pulse Ox O2 Del Method O2 Flow Rate 97.9 F 88 18 117/46 L 98 Nasal Cannula 2 05/03/23 09:37 05/03/23 10:30 05/03/23 10:30 05/03/23 09:37 05/03/23 09:37 05/03/23 09:37 05/03/23 09:37 Oxygen Flow Rate (L/min) 2 Oxygen Delivery Method Nasal Cannula Weight: 142 lb 10.225 oz Body Mass Index (BMI) 20.5 Intake & Output: Intake and Output for Last 24 Hours 05/01/23 05/02/23 05/03/23 23:59 23:59 23:59 Intake Total 506.0 / 506.0 2445.49 / 2445.49 889.17 / 889.17 Output Total 200 / 200 1035 / 1035 595 / 595 Balance 306.0 / 306.0 1410.49 / 1410.49 294.17 / 294.17 Medical Nutrition Assessment Dietitian: Malnutrition Criteria Met Start: 05/02/23 10:39 Freq: Status: Active Protocol: Document 05/02/23 10:39 SLA (Rec: 05/02/23 10:39 SLA Desktop) Nutrition Malnutrition Evidence of Malnutrition Exists Yes Malnutrition (severe): Acute Illness/Injury Evidenced By Suboptimal Energy Intake ( Severe),Weight Loss (Severe) Clinical Problem Acute Disease or Injury Related Malnutrition Etiology related to acute illness and suboptimal energy intake Signs/Symptoms as evidenced by suspected 4.34 % unintended wt loss and <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 Problem Recommendation Dietitian Recommendations/Changes As medically able, rec KWADWO to liberal regular w/ 8 oz CIB w/ meals d/t signs and symptoms of malnutrition Rec consider appetite stimulant if po intake remains poor once diet resumes Lab / Micro Data 05/03/23 04:40 05/03/23 04:40 Labs: Laboratory Results - last 24 hr 05/01/23 19:16: Crossmatch See Detail 05/01/23 19:16: Crossmatch See Detail 05/02/23 12:42: POC Glucose 93 05/02/23 17:27: POC Glucose 120 H 05/02/23 23:51: POC Glucose 102 05/03/23 04:40: WBC 4.0 L, RBC 2.75 L, Hgb 8.1 L, Hct 26.7 L, MCV 97.1 H, MCH 29.5, MCHC 30.3 L, RDW Std Deviation 57.8 H, RDW Coeff of Kalyan 16.5 H, Plt Count 81 L, MPV 10.2, Immature Gran % (Auto) 0.700, Neut % (Auto) 78.8 H, Lymph % (Auto) 10.9 L, [place] % (Auto) 7.9, Eos % (Auto) 1.2, Baso % (Auto) 0.5, Absolute Neuts (auto) 3.2, Absolute Lymphs (auto) 0.44 L, Nucleated RBC % 0, Diff Path Review November, Platelet Estimate MOD DEC, Anisocytosis 1+, Macrocytosis 1+, PT 13.3, INR 1.0, Sodium 147 H, Potassium 3.8, Chloride 120 H, Carbon Dioxide 22.0, Anion Gap 5, BUN 29 H, Creatinine 1.79 H, Estim Creat Clear Calc 27.61, Est GFR (MDRD) Af Amer 47 L, Est GFR (MDRD) Non-Af 39 L, BUN/Creatinine Ratio 16.2, Glucose 96, Calcium 7.6 L 05/03/23 08:20: APTT 31.5 Micro: Microbiology 05/01/23 19:12 Stool Stool Occult Blood (COREEN) - Final Occult Blood Positive Rhythm Strip Rhythm Strip: paced Rate: 60 Ectopy: None Physical Exam Const alert, oriented x3 and no apparent distress General Appearance: cooperative HEENT normocephalic, head/scalp atraumatic, moist oral mucous membranes and oropharynx normal Eyes PERRL and EOMs intact bilaterally Neck supple and no JVD Lymph Lymphatic: no lymphadenopathy noted Resp normal respiratory effort, normal air movement and clear to auscultation bilaterally Cardio regular rate, regular rhythm, S1 normal heart sound and S2 normal heart sound Peripheral Pulses: pulses 2+ throughout GI normal to inspection, nondistended, normoactive bowel sounds, soft to palpation, non-tender and non-distended Extremity normal capillary refill, no clubbing, cyanosis or edema and no calf tenderness Skin General Skin Exam: no breakdown Neuro CN's II-XII intact bilaterally, no focal motor deficits, no sensory deficits noted and deep tendon reflexes 2+ bilaterally Motor Exam: strength 5/5 throughout and general weakness Psych thought process normal and cooperative Appearance: appropriate Assessment & Plan Assessment/Plan (1) Acute upper GI bleed: (2) Acute blood loss anemia: (3) Supratherapeutic INR: PLAN: Plan #Acute on chronic anemia due to acute blood loss anemia * s/p EGD which showed oozing gastric ulcer with pigmented material which was injected and and oozing gastric ulcers with visible vessel which was treated with a heater probe. * on IV PPI drip still * started on heparin drip as INR is subtherapeutic. * gastroenterology on board * critical care also on board. * * #Supratherapeutic iNR: resolved with K Centra and Vitamin K. Now on heparin drip #Hypernatremia: Na is 147. Will place on D5W and monitor sodium. #Afib: on amiodarone. now on heparin drip. coumadin on hold due to supratherapeutic INR. #HFrEF: not in exacerbation. lasix held for now. ON Jardiance. Metoprolol also held. #SALVADOR on CKD 3: Cr down to 1.79, from 1.93 yesterday. Baseline Cr is 1.4. Will trend. #History of aortic valve stenosis s/p artificial aortic valve: he has a St Rachid aortic valve in place. Coumadin on hold due to supratherapeutic iNR. #Nicotine dependence: counseled to quit. #Chronic pain: on buprenophine patch DVT prophylaxis: now on heparin drip Disposition; transfer out of ICU to PCU today Charges/Coding Visit Charges Inpatient E&M: 66788 Subs Hosp L2
[2023-05-03] MEDS: Dextrose 5%-Water (1000mL Bag) 1,000 ML 75 ML IV (11:22)
--- NOTE | 2023-05-03 16:00 | NURSING ---
PTT result delayed in Lab. Heparin gtt paused per protocol, Ptt <200.
[2023-05-03 16:09] LABS: Partial Thromboplast Time > 200.0 Seconds (24.1-36.2)
--- NOTE | 2023-05-03 16:40 | EX.PCM.PN.GI ---
Subjective Subjective Patient underwent an upper endoscopy yesterday for melanotic stools and presumed upper GI bleed. She does not have any abdominal pain at this time. He has not seen any signs of bleeding today per rectum. He denies any nausea vomiting or hematemesis. Objective Data Objective Data Vital Signs: Vital Signs Temp Pulse Resp BP Pulse Ox O2 Del Method O2 Flow Rate 97.8 F 62 18 116/49 L 98 Room Air 2 05/03/23 15:00 05/03/23 15:41 05/03/23 15:41 05/03/23 15:00 05/03/23 15:00 05/03/23 15:00 05/03/23 14:27 Oxygen Flow Rate (L/min) 2 Oxygen Delivery Method Room Air Weight: 142 lb 10.225 oz Body Mass Index (BMI) 20.5 Intake & Output: Intake and Output for Last 24 Hours 05/01/23 05/02/23 05/03/23 23:59 23:59 23:59 Intake Total 506.0 / 506.0 2445.49 / 2445.49 988.50 / 988.50 Output Total 200 / 200 1035 / 1035 595 / 595 Balance 306.0 / 306.0 1410.49 / 1410.49 393.50 / 393.50 Medical Nutrition Assessment Dietitian: Malnutrition Criteria Met Start: 05/02/23 10:39 Freq: Status: Active Protocol: Document 05/02/23 10:39 SLA (Rec: 05/02/23 10:39 SLA Desktop) Nutrition Malnutrition Evidence of Malnutrition Exists Yes Malnutrition (severe): Acute Illness/Injury Evidenced By Suboptimal Energy Intake ( Severe),Weight Loss (Severe) Clinical Problem Acute Disease or Injury Related Malnutrition Etiology related to acute illness and suboptimal energy intake Signs/Symptoms as evidenced by suspected 4.34 % unintended wt loss and <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 Problem Recommendation Dietitian Recommendations/Changes As medically able, rec KWADWO to liberal regular w/ 8 oz CIB w/ meals d/t signs and symptoms of malnutrition Rec consider appetite stimulant if po intake remains poor once diet resumes Lab / Micro Data 05/03/23 04:40 05/03/23 04:40 Labs: Laboratory Results - last 24 hr 05/01/23 19:16: Crossmatch See Detail 05/01/23 19:16: Crossmatch See Detail 05/02/23 17:27: POC Glucose 120 H 05/02/23 23:51: POC Glucose 102 05/03/23 04:40: WBC 4.0 L, RBC 2.75 L, Hgb 8.1 L, Hct 26.7 L, MCV 97.1 H, MCH 29.5, MCHC 30.3 L, RDW Std Deviation 57.8 H, RDW Coeff of Kalyan 16.5 H, Plt Count 81 L, MPV 10.2, Immature Gran % (Auto) 0.700, Neut % (Auto) 78.8 H, Lymph % (Auto) 10.9 L, [place] % (Auto) 7.9, Eos % (Auto) 1.2, Baso % (Auto) 0.5, Absolute Neuts (auto) 3.2, Absolute Lymphs (auto) 0.44 L, Nucleated RBC % 0, Diff Path Review May , Platelet Estimate MOD DEC, Anisocytosis 1+, Macrocytosis 1+, PT 13.3, INR 1.0, Sodium 147 H, Potassium 3.8, Chloride 120 H, Carbon Dioxide 22.0, Anion Gap 5, BUN 29 H, Creatinine 1.79 H, Estim Creat Clear Calc 27.61, Est GFR (MDRD) Af Amer 47 L, Est GFR (MDRD) Non-Af 39 L, BUN/Creatinine Ratio 16.2, Glucose 96, Calcium 7.6 L 05/03/23 08:20: APTT 31.5 05/03/23 14:10: APTT > 200.0 H* Micro: Microbiology 05/01/23 19:12 Stool Stool Occult Blood (COREEN) - Final Occult Blood Positive Rhythm Strip Rhythm Strip: paced Rate: 60 Ectopy: None Physical Exam Const alert, oriented x3 and no apparent distress General Appearance: cooperative HEENT normocephalic, head/scalp atraumatic, moist oral mucous membranes and oropharynx normal Eyes PERRL and EOMs intact bilaterally Neck supple and no JVD Lymph Lymphatic: no lymphadenopathy noted Resp normal respiratory effort, normal air movement and clear to auscultation bilaterally Cardio regular rate, regular rhythm, S1 normal heart sound and S2 normal heart sound Peripheral Pulses: pulses 2+ throughout GI normal to inspection, nondistended, normoactive bowel sounds, soft to palpation, non-tender and non-distended Extremity normal capillary refill, no clubbing, cyanosis or edema and no calf tenderness Skin General Skin Exam: no breakdown Neuro CN's II-XII intact bilaterally, no focal motor deficits, no sensory deficits noted and deep tendon reflexes 2+ bilaterally Motor Exam: strength 5/5 throughout and general weakness Psych thought process normal and cooperative Appearance: appropriate Assessment & Plan Assessment/Plan (1) Acute upper GI bleed: PLAN: Acute GI bleed secondary to bleeding gastric ulcer status post endoscopic treatment. His hemoglobin seems to be improving. He was started back on heparin drip today. I would continue Protonix IV while he is getting heparin drip to make him therapeutic for his mechanical heart valve. I will continue to follow. Charges/Coding Visit Charges Inpatient E&M: 57985 Subs Hosp L2
[2023-05-03] MEDS: Folic Acid 1 MG Tablet PO (20:41)
[2023-05-03] MEDS: Atorvastatin Calcium 80 MG Tablet PO (20:41)
[2023-05-03] MEDS: Zolpidem Tartrate 5 MG Tablet PO (21:49)
[2023-05-03] MEDS: Ceftriaxone 1 GM/50 ML BAG IV (23:00)
[2023-05-04] VITALS (10 sets, daily range): BP systolic 96–131; BP diastolic 43–77; PULSE 60–100; RESP 10–20; TEMP 36.4–36.7; O2SAT 95–99; BMI 20.4
[2023-05-04 00:01] LABS: Partial Thromboplast Time 194.4 Seconds (24.1-36.2)
[2023-05-04 05:31] LABS: Absolute Neutrophil Count 2.5 X10^3/uL (2.0-7.7); Basophil# 0.02 X10^3/uL; Basophil% 0.6 % (0-1); Eosinophil# 0.05 X10^3/uL; Eosinophils% 1.6 % (0-5); Hematocrit 24.1 % (40-54); Hemoglobin 7.4 g/dL (13.0-16.5); Lymphocyte % 12.5 % (19-41); Mean Corp Hgb Conc 30.7 g/dL (32-36); Mean Corpuscular Hgb 29.8 pg (27.0-32.0); Mean Corpuscular Volume 97.2 fL (80-94); Mean Platelet Vol. 11.2 fl (6.2-12.0); Monocyte# 0.21 X10^3/uL; Monocyte% 6.6 % (0-10); NRBC Flagged by Analyzer 0 % (0-5); Neutrophil % 78.1 % (47-70); POSITIVE COUNT YES; POSITIVE DIFFERENTIAL YES; Platelet Count 76 K/mm3 (150-450); RBC Distribution Width CV 17.5 % (11.6-14.6); RBC Distribution Width SD 60.9 fl (35.1-43.9); Red Blood Count 2.48 M/mm3 (4.6-6.2); White Blood Count 3.2 K/mm3 (4.4-11.0)
[2023-05-04 05:46] LABS: Differential Indicated SCAN CRITERIA MET
[2023-05-04 05:53] LABS: Anion Gap 4 (5-15); BUN 19 mg/dL (7-18); BUN/Creat Ratio 11.7 RATIO (10-20); Calcium,Total 7.3 mg/dL (8.5-10.1); Chloride 120 mmol/L (98-107); Creatinine, Serum 1.62 mg/dL (0.70-1.30); EST Glomerular Filtration Rate 43 mL/min (>60); Est Glom Filt Rate - Afr Amer 52 mL/min (>60); Estimated Creatinine Clearance 30.46 ml/min; Glucose 111 mg/dL (74-106); Potassium 3.4 mmol/L (3.5-5.1); Sodium Level 147 mmol/L (136-145)
[2023-05-04 06:13] LABS: Anisocytosis 1+; Macrocytosis 1+; Platelet Estimate MOD DEC (ADEQ)
--- NOTE | 2023-05-04 06:54 | PCM.PN.INT ---
Assessment & Plan Assessment/Plan (1) Acute blood loss anemia: PLAN: Plan RECOMMENDATIONS: 1. Continue to monitor H&H and transfuse if hemoglobin drops below 7 g/dL. 2. Continue weight-based heparin infusion. 3. Continue PPI therapy and ceftriaxone. 4. As needed bronchodilators. 5. Encourage incentive spirometer use and mobilize patient as tolerated. IMPRESSIONS: 1. Acute blood loss anemia in the setting of presenting coagulopathy The patient presented to the hospital with melena and weakness in the setting of a supratherapeutic INR. The patient was taken for endoscopic evaluation by gastroenterology with oozing gastric ulcers, which were injected and treated with a heater probe. The patient's hemoglobin improved with transfusion of blood products. He remains hemodynamically stable. Plan to continue pantoprazole per recommendations. Continue to monitor H&H and transfuse if hemoglobin drops below 7 g/dL. 2. History of coronary artery disease status post CABG/atrial fibrillation/mechanical aortic valve/ischemic cardiomyopathy The patient will be continued on a heparin infusion and blood counts will be monitored accordingly. Transfuse if hemoglobin drops below 7 g/dL. The patient will ultimately need to be restarted on his Coumadin, once medically stabilized. 3. Chronic pain/hyperlipidemia/tobacco abuse history Complicates care, management, recovery and prognosis. Continue home medications as indicated. This note was generated with [employer] dictation software. It may contain incorrect words, spelling, and punctuation that were not noted in checking the note before signing. Subjective Subjective The patient was seen and examined at the bedside this morning. Events from the last 24 hours have been reviewed. The patient is currently afebrile, hemodynamically stable and maintaining appropriate oxygen saturations on 2 L/min via nasal cannula. The patient is documented to be overall net +2.5 L for the hospitalization. Hemoglobin is dropped to 7.4 g/dL this morning. Platelet count remains low at 76,000. The patient remains on a heparin infusion. Objective Data Objective Data The patient's most recent lab work, culture data and imaging studies have all been personally reviewed. Vital Signs: Vital Signs Temp Pulse Resp BP Pulse Ox O2 Del Method O2 Flow Rate 97.6 F L 60 16 96/43 L 98 Nasal Cannula 2 05/04/23 03:00 05/04/23 03:00 05/04/23 03:00 05/04/23 03:00 05/04/23 03:00 05/04/23 03:00 05/04/23 03:00 Oxygen Flow Rate (L/min) 2 Oxygen Delivery Method Nasal Cannula Weight: 142 lb 6.698 oz Body Mass Index (BMI) 20.4 Intake & Output: Intake and Output for Last 24 Hours 05/02/23 05/03/23 05/04/23 23:59 23:59 23:59 Intake Total 2445.49 / 2445.49 1162.50 / 1162.50 1092.7 / 1092.7 Output Total 1035 / 1035 1145 / 1445 300 / 300 Balance 1410.49 / 1410.49 17.50 / -282.50 792.7 / 792.7 Medical Nutrition Assessment Dietitian: Malnutrition Criteria Met Start: 05/02/23 10:39 Freq: Status: Active Protocol: Document 05/02/23 10:39 SLA (Rec: 05/02/23 10:39 SLA Desktop) Nutrition Malnutrition Evidence of Malnutrition Exists Yes Malnutrition (severe): Acute Illness/Injury Evidenced By Suboptimal Energy Intake ( Severe),Weight Loss (Severe) Clinical Problem Acute Disease or Injury Related Malnutrition Etiology related to acute illness and suboptimal energy intake Signs/Symptoms as evidenced by suspected 4.34 % unintended wt loss and <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 Status Active Problem Recommendation Dietitian Recommendations/Changes As medically able, rec KWADWO to liberal regular w/ 8 oz CIB w/ meals d/t signs and symptoms of malnutrition Rec consider appetite stimulant if po intake remains poor once diet resumes Lab / Micro Data Attestation: I reviewed the patient's lab results. 05/04/23 05:25 05/04/23 05:25 Labs: Laboratory Results - last 24 hr 05/03/23 08:20: APTT 31.5 05/03/23 14:10: APTT > 200.0 H* 05/03/23 23:45: APTT 194.4 H* 05/04/23 05:25: WBC 3.2 L, RBC 2.48 L, Hgb 7.4 L, Hct 24.1 L, MCV 97.2 H, MCH 29.8, MCHC 30.7 L, RDW Std Deviation 60.9 H, RDW Coeff of Kalyan 17.5 H, Plt Count 76 L, MPV 11.2, Immature Gran % (Auto) 0.600, Neut % (Auto) 78.1 H, Lymph % (Auto) 12.5 L, [place] % (Auto) 6.6, Eos % (Auto) 1.6, Baso % (Auto) 0.6, Absolute Neuts (auto) 2.5, Absolute Lymphs (auto) 0.40 L, Nucleated RBC % 0, Diff Path Review May , Platelet Estimate MOD DEC, Anisocytosis 1+, Macrocytosis 1+, Sodium 147 H, Potassium 3.4 L, Chloride 120 H, Carbon Dioxide 23.0, Anion Gap 4 L, BUN 19 H, Creatinine 1.62 H, Estim Creat Clear Calc 30.46, Est GFR (MDRD) Af Amer 52 L, Est GFR (MDRD) Non-Af 43 L, BUN/Creatinine Ratio 11.7, Glucose 111 H, Calcium 7.3 L Micro: Microbiology 05/01/23 19:12 Stool Stool Occult Blood (COREEN) - Final Occult Blood Positive Rhythm Strip Rhythm Strip: paced Rate: 60 Ectopy: None Physical Exam Const alert and no apparent distress General Appearance: cooperative HEENT normocephalic and head/scalp atraumatic Eyes PERRL, EOMs intact bilaterally and conjunctivae normal Neck supple General: trachea midline Chest inspection of chest normal Resp normal respiratory effort Auscultation: Negative for rales, rhonchi or wheezes Cardio regular rate, S1 normal heart sound and S2 normal heart sound Heart Sounds: murmur GI normal to inspection, nondistended, normoactive bowel sounds Extremity no clubbing, cyanosis or edema Skin no rashes or lesions noted Neuro CN's II-XII intact bilaterally and no focal motor deficits Psych cooperative and affect normal Charges/Coding Visit Charges Inpatient E&M: 35957 Subs Hosp L2
[2023-05-04] MEDS: Ipratropium/Albuterol Sulfate 3 ML AMPUL.NEB INHALATION ×3 (07:09→19:23)
[2023-05-04] MEDS: Pantoprazole Sodium 80 MG in 0.9% Normal Saline (100mL Bag) 80 ML 10 MG CONT INF ×2 (07:32→17:46)
[2023-05-04] MEDS: Ferrous Sulfate 325 MG Tablet PO ×2 (07:33→14:14)
[2023-05-04] MEDS: Amiodarone 200 MG Tablet PO (07:33)
[2023-05-04 08:52] LABS: Partial Thromboplast Time 52.8 Seconds (24.1-36.2)
[2023-05-04 09:03] LABS: International Normalized Ratio 1.3; Prothrombin Time (Protime)PT. 15.9 SECONDS (11.7-14.9)
--- NOTE | 2023-05-04 12:49 | PN_ITS ---
Subjective Subjective Patient seen and examined. He felt well and had no active complaints. He had an uneventful night. REview of systems is otherwise negative. hb has dropped from 8.3 yesterday to 7.4. He has otherwise remained hemodynamically stable. BP did run low overnight but has now improved. Objective Data Objective Data Vital Signs: Vital Signs Temp Pulse Resp BP Pulse Ox O2 Del Method O2 Flow Rate 97.8 F 80 16 131/77 H 98 Room Air 2 05/04/23 09:00 05/04/23 10:42 05/04/23 10:42 05/04/23 09:00 05/04/23 09:00 05/04/23 09:00 05/04/23 03:00 Oxygen Flow Rate (L/min) 2 Oxygen Delivery Method Room Air Weight: 142 lb 6.698 oz Body Mass Index (BMI) 20.4 Intake & Output: Intake and Output for Last 24 Hours 05/02/23 05/03/23 05/04/23 23:59 23:59 23:59 Intake Total 2445.49 / 2445.49 1162.50 / 1162.50 1221.40 / 1221.40 Output Total 1035 / 1035 1145 / 1445 825 / 825 Balance 1410.49 / 1410.49 17.50 / -282.50 396.40 / 396.40 Medical Nutrition Assessment Dietitian: Malnutrition Criteria Met Start: 05/02/23 10:39 Freq: Status: Active Protocol: Document 05/02/23 10:39 SLA (Rec: 05/02/23 10:39 SLA Desktop) Nutrition Malnutrition Evidence of Malnutrition Exists Yes Malnutrition (severe): Acute Illness/Injury Evidenced By Suboptimal Energy Intake ( Severe),Weight Loss (Severe) Clinical Problem Acute Disease or Injury Related Malnutrition Etiology related to acute illness and suboptimal energy intake Signs/Symptoms as evidenced by suspected 4.34 % unintended wt loss 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 Problem Recommendation Dietitian Recommendations/Changes As medically able, rec KWADWO to liberal regular w/ 8 oz CIB w/ meals d/t signs and symptoms of malnutrition Rec consider appetite stimulant if po intake remains poor once diet resumes Lab / Micro Data 05/04/23 05:25 05/04/23 05:25 Labs: Laboratory Results - last 24 hr 05/03/23 14:10: APTT > 200.0 H* 05/03/23 23:45: APTT 194.4 H* 05/04/23 05:25: WBC 3.2 L, RBC 2.48 L, Hgb 7.4 L, Hct 24.1 L, MCV 97.2 H, MCH 29.8, MCHC 30.7 L, RDW Std Deviation 60.9 H, RDW Coeff of Kalyan 17.5 H, Plt Count 76 L, MPV 11.2, Immature Gran % (Auto) 0.600, Neut % (Auto) 78.1 H, Lymph % (Auto) 12.5 L, [place] % (Auto) 6.6, Eos % (Auto) 1.6, Baso % (Auto) 0.6, Absolute Neuts (auto) 2.5, Absolute Lymphs (auto) 0.40 L, Nucleated RBC % 0, Diff Path Review May , Platelet Estimate MOD DEC, Anisocytosis 1+, Macrocytosis 1+, Sodium 147 H, Potassium 3.4 L, Chloride 120 H, Carbon Dioxide 23.0, Anion Gap 4 L, BUN 19 H, Creatinine 1.62 H, Estim Creat Clear Calc 30.46, Est GFR (MDRD) Af Amer 52 L, Est GFR (MDRD) Non-Af 43 L, BUN/Creatinine Ratio 11.7, Glucose 111 H, Calcium 7.3 L 05/04/23 08:10: PT 15.9 H, INR 1.3, APTT 52.8 H Micro: Microbiology 05/01/23 19:12 Stool Stool Occult Blood (COREEN) - Final Occult Blood Positive Rhythm Strip Rhythm Strip: paced Rate: 60 Ectopy: None Physical Exam Const alert, oriented x3 and no apparent distress General Appearance: cooperative HEENT normocephalic, head/scalp atraumatic, moist oral mucous membranes and oropharynx normal Eyes PERRL and EOMs intact bilaterally Neck supple and no JVD Lymph Lymphatic: no lymphadenopathy noted and no lymphedema noted Resp normal respiratory effort, normal air movement and clear to auscultation bilaterally Cardio regular rate, regular rhythm, S1 normal heart sound and S2 normal heart sound Peripheral Pulses: pulses 2+ throughout GI normal to inspection, nondistended, normoactive bowel sounds, soft to palpation, non-tender and non-distended Extremity normal capillary refill, no clubbing, cyanosis or edema and no calf tenderness Skin General Skin Exam: no breakdown Neuro CN's II-XII intact bilaterally, no focal motor deficits, no sensory deficits noted and deep tendon reflexes 2+ bilaterally Motor Exam: strength 5/5 throughout and general weakness Psych thought process normal and cooperative Appearance: appropriate Assessment & Plan Assessment/Plan (1) Acute upper GI bleed: (2) Acute blood loss anemia: (3) Supratherapeutic INR: PLAN: Plan #Acute on chronic anemia due to acute blood loss anemia * s/p EGD which showed oozing gastric ulcer with pigmented material which was injected and and oozing gastric ulcers with visible vessel which was treated with a heater probe. * on IV PPI drip still * on heparin drip * Hb dropped to 7.4 from 8.3 yesterday. continue heparin drip and hold off on coumadin in light of further drop in platelets and Hb * gastroenterology on board * critical care also on board. * #Pancytopenia * Platelets are Low at 76. Have dropped from 127 on admission. Platelets were 179 on 04/25/2023. Hemoglobin today 7.4 and WBC is 3.2. * Likely due to acute GI bleed. * Will monitor for now and trend. Hold off on coumadin in light of low platelets * #Supratherapeutic iNR: resolved with K Centra and Vitamin K. Now on heparin drip #Hypernatremia: Na is still [address] on D5W and monitor sodium. #Hypokalemia: K is 3.4. Will replace and trend. #Afib: on amiodarone. now on heparin drip. coumadin on hold due to supratherapeutic INR. #HFrEF: not in exacerbation. lasix held for now. ON Jardiance. Metoprolol also held. #SALVADOR on CKD 3: Cr down to 1.79, from 1.93 yesterday. Baseline Cr is 1.4. Will trend. #History of aortic valve stenosis s/p artificial aortic valve: he has a St Rachid aortic valve in place. Coumadin on hold due to supratherapeutic iNR. Will resume coumadin today #Nicotine dependence: counseled to quit. #Chronic pain: on buprenophine patch DVT prophylaxis: now on heparin drip. continue heparin drip Disposition; transfer out of ICU to PCU today Charges/Coding Visit Charges Inpatient E&M: 55356 Subs Hosp L2
[2023-05-04 12:57] LABS: Pathologist Review Reviewed
[2023-05-04] MEDS: Dextrose 5%-Water (1000mL Bag) 1,000 ML 75 ML IV (14:11)
[2023-05-04] MEDS: Metoprolol(XL)Succ 100 MG Tablet PO ×2 (14:14→20:38)
[2023-05-04] MEDS: Potassium Chloride Oral Tablet 20 MEQ 40 MEQ PO (14:14)
[2023-05-04 15:21] LABS: Pathologist Review Reviewed
[2023-05-04] MEDS: Tamsulosin HCl 0.4 MG Capsule PO (17:27)
--- NOTE | 2023-05-04 19:47 | EX.PCM.PN.GI ---
Subjective Subjective This is postop day #2 from him on are going in the upper endoscopy, and for acute blood loss, anemia, discovered to be secondary to peptic also disease with a super therapeutic INR. He is nothe has not shown any signs of recurrent yeah bleeding at this time. However, his hemoglobin has dropped down to 7.4. Objective Data Objective Data Vital Signs: Vital Signs Temp Pulse Resp BP Pulse Ox O2 Del Method O2 Flow Rate 98.1 F 60 10 L 105/59 L 96 Room Air 2 05/04/23 15:00 05/04/23 19:23 05/04/23 19:23 05/04/23 15:00 05/04/23 15:00 05/04/23 15:00 05/04/23 03:00 Oxygen Flow Rate (L/min) 2 Oxygen Delivery Method Room Air Weight: 142 lb 6.698 oz Body Mass Index (BMI) 20.4 Intake & Output: Intake and Output for Last 24 Hours 05/02/23 05/03/23 05/04/23 23:59 23:59 23:59 Intake Total 2445.49 / 2445.49 1162.50 / 1162.50 1323.17 / 1323.17 Output Total 1035 / 1035 1145 / 1445 825 / 825 Balance 1410.49 / 1410.49 17.50 / -282.50 498.17 / 498.17 Medical Nutrition Assessment Dietitian: Malnutrition Criteria Met Start: 05/02/23 10:39 Freq: Status: Active Protocol: Document 05/02/23 10:39 SLA (Rec: 05/02/23 10:39 SLA Desktop) Nutrition Malnutrition Evidence of Malnutrition Exists Yes Malnutrition (severe): Acute Illness/Injury Evidenced By Suboptimal Energy Intake ( Severe),Weight Loss (Severe) Clinical Problem Acute Disease or Injury Related Malnutrition Etiology related to acute illness and suboptimal energy intake Signs/Symptoms as evidenced by suspected 4.34 % unintended wt loss 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 Problem Recommendation Dietitian Recommendations/Changes As medically able, rec KWADWO to liberal regular w/ 8 oz CIB w/ meals d/t signs and symptoms of malnutrition Rec consider appetite stimulant if po intake remains poor once diet resumes Lab / Micro Data 05/04/23 05:25 05/04/23 05:25 Labs: Laboratory Results - last 24 hr 05/03/23 04:40: Diff Path Review Reviewed 05/03/23 23:45: APTT 194.4 H* 05/04/23 05:25: WBC 3.2 L, RBC 2.48 L, Hgb 7.4 L, Hct 24.1 L, MCV 97.2 H, MCH 29.8, MCHC 30.7 L, RDW Std Deviation 60.9 H, RDW Coeff of Kalyan 17.5 H, Plt Count 76 L, MPV 11.2, Immature Gran % (Auto) 0.600, Neut % (Auto) 78.1 H, Lymph % (Auto) 12.5 L, [place] % (Auto) 6.6, Eos % (Auto) 1.6, Baso % (Auto) 0.6, Absolute Neuts (auto) 2.5, Absolute Lymphs (auto) 0.40 L, Nucleated RBC % 0, Diff Path Review Reviewed, Platelet Estimate MOD DEC, Anisocytosis 1+, Macrocytosis 1+, Sodium 147 H, Potassium 3.4 L, Chloride 120 H, Carbon Dioxide 23.0, Anion Gap 4 L, BUN 19 H, Creatinine 1.62 H, Estim Creat Clear Calc 30.46, Est GFR (MDRD) Af Amer 52 L, Est GFR (MDRD) Non-Af 43 L, BUN/Creatinine Ratio 11.7, Glucose 111 H, Calcium 7.3 L 05/04/23 08:10: PT 15.9 H, INR 1.3, APTT 52.8 H Micro: Microbiology 05/01/23 19:12 Stool Stool Occult Blood (COREEN) - Final Occult Blood Positive Rhythm Strip Rhythm Strip: paced Rate: 60 Ectopy: None Physical Exam Const alert, oriented x3 and no apparent distress General Appearance: cooperative HEENT normocephalic, head/scalp atraumatic, moist oral mucous membranes and oropharynx normal Eyes PERRL and EOMs intact bilaterally Neck supple and no JVD Lymph Lymphatic: no lymphadenopathy noted and no lymphedema noted Resp normal respiratory effort, normal air movement and clear to auscultation bilaterally Cardio regular rate, regular rhythm, S1 normal heart sound and S2 normal heart sound Peripheral Pulses: pulses 2+ throughout GI normal to inspection, nondistended, normoactive bowel sounds, soft to palpation, non-tender and non-distended Extremity normal capillary refill, no clubbing, cyanosis or edema and no calf tenderness Skin General Skin Exam: no breakdown Neuro CN's II-XII intact bilaterally, no focal motor deficits, no sensory deficits noted and deep tendon reflexes 2+ bilaterally Motor Exam: strength 5/5 throughout and general weakness Psych thought process normal and cooperative Appearance: appropriate Assessment & Plan Assessment/Plan (1) Acute blood loss anemia: PLAN: Hg 7.4. Transfuse for a hgb < seven. Gastric gastric ulcer from an anti-platelet medicine complicated by supratherapeutic INR and clopidogrel Warfarin currently held Given recent PCI, will need to continue clopidogrel On ppi (2) Supratherapeutic INR: PLAN: I I am not sure that he doesn't have cirrhosis. H his Phibro scan did show a stiffness of 11.5 kPa and he has persistent thrombocytopenia with elevated MCV. Given his underlying heart disease, he has a strong probability of cirrhosis. (3) SALVADOR (acute kidney injury): PLAN: Creatinine 1.62. Creatinine from [facility] on 03/25 was 1.33. Previous FEUrea 53.16% renal US shows horseshoe kidney. right renal cyst. (4) Encephalopathy: PLAN: He's nothe is not showing any signs of encephalopathy at this time. I would play some on lactulose 20 cc twice a day as a fax and five and 50 mg twice a day while he's in the hospital. PLAN: Plan Chronic complicating conditions: HFrEF ischemic cardiomyopathy-according to [facility] records, patient's ejection fraction was 20-30%. No evidence of acute exacerbation on CXR. Continue metoprolol succinate. permanent atrial fibrillation on Heparin, drip. Patient has also been on amiodarone which can cause fatty liver disease, and DJ Rosa Marquez. He is at risk for congestive hepatopathy. mechanical aortic valve- On heparin drip coronary artery disease-patient had recent stents placed in the LAD on 03/11. Charges/Coding Visit Charges Inpatient E&M: 32608 [facility] Hosp L3
[2023-05-04] MEDS: Ceftriaxone 1 GM/50 ML BAG IV (20:39)
[2023-05-04] MEDS: Folic Acid 1 MG Tablet PO (20:39)
[2023-05-04] MEDS: Atorvastatin Calcium 80 MG Tablet PO (20:39)
[2023-05-04] MEDS: Zolpidem Tartrate 5 MG Tablet PO (22:35)
[2023-05-05] VITALS (9 sets, daily range): BP systolic 100–126; BP diastolic 52–70; PULSE 60–65; RESP 10–18; TEMP 36.4–36.8; O2SAT 93–98; BMI 20.5
[2023-05-05] MEDS: Pantoprazole Sodium 80 MG in 0.9% Normal Saline (100mL Bag) 80 ML 10 MG CONT INF ×2 (03:28→14:40)
[2023-05-05 05:40] LABS: Absolute Lymphocyte Count 0.36 X10^3/uL (0.83-4.51); Absolute Neutrophil Count 2.8 X10^3/uL (2.0-7.7); Basophil# 0.02 X10^3/uL; Basophil% 0.6 % (0-1); Eosinophil# 0.06 X10^3/uL; Eosinophils% 1.7 % (0-5); Hematocrit 25.5 % (40-54); Hemoglobin 7.8 g/dL (13.0-16.5); Lymphocyte # 0.36 X10^3/ul (0.83-4.51); Lymphocyte % 10.2 % (19-41); Mean Corp Hgb Conc 30.6 g/dL (32-36); Mean Corpuscular Hgb 29.5 pg (27.0-32.0); Mean Corpuscular Volume 96.6 fL (80-94); Mean Platelet Vol. 10.9 fl (6.2-12.0); Monocyte% 8.5 % (0-10); NRBC Flagged by Analyzer 0.6 % (0-5); Neutrophil # 2.77 X10^3/uL (2.7-7.7); Neutrophil % 78.4 % (47-70); POSITIVE COUNT YES; POSITIVE DIFFERENTIAL YES; Platelet Count 88 K/mm3 (150-450); RBC Distribution Width CV 17.6 % (11.6-14.6); Red Blood Count 2.64 M/mm3 (4.6-6.2); White Blood Count 3.5 K/mm3 (4.4-11.0)
[2023-05-05 05:47] LABS: International Normalized Ratio 1.6; Prothrombin Time (Protime)PT. 19.2 SECONDS (11.7-14.9)
[2023-05-05 05:52] LABS: Anion Gap 4 (5-15); BUN 14 mg/dL (7-18); BUN/Creat Ratio 9.6 RATIO (10-20); Calcium,Total 8.1 mg/dL (8.5-10.1); Chloride 117 mmol/L (98-107); Creatinine, Serum 1.46 mg/dL (0.70-1.30); EST Glomerular Filtration Rate 49 mL/min (>60); Est Glom Filt Rate - Afr Amer 59 mL/min (>60); Estimated Creatinine Clearance 34.06 ml/min; Glucose 103 mg/dL (74-106); Potassium 3.8 mmol/L (3.5-5.1); Sodium Level 144 mmol/L (136-145)
[2023-05-05 05:54] LABS: Differential Indicated SCAN CRITERIA MET
[2023-05-05 06:00] LABS: Anisocytosis 1+; Macrocytosis 1+; Platelet Estimate MOD DEC (ADEQ)
[2023-05-05 06:01] LABS: Hypochromasia 1+
[2023-05-05] MEDS: Ipratropium/Albuterol Sulfate 3 ML AMPUL.NEB INHALATION ×3 (06:52→19:05)
--- NOTE | 2023-05-05 07:15 | PCM.PN.INT ---
Assessment & Plan Assessment/Plan (1) Acute blood loss anemia: PLAN: Plan RECOMMENDATIONS: 1. Continue to monitor H&H and transfuse if hemoglobin drops below 7 g/dL. 2. Continue weight-based heparin infusion, with bridge back to Coumadin. Continue to monitor INR daily. 3. Continue PPI therapy and ceftriaxone. 4. As needed bronchodilators. 5. Encourage incentive spirometer use and mobilize patient as tolerated. 6. We will sign off from a pulmonary/critical care perspective. Please call with any additional questions. IMPRESSIONS: 1. Acute blood loss anemia in the setting of presenting coagulopathy The patient presented to the hospital with melena and weakness in the setting of a supratherapeutic INR. The patient was taken for endoscopic evaluation by gastroenterology with oozing gastric ulcers, which were injected and treated with a heater probe. The patient's hemoglobin improved with transfusion of blood products. He remains hemodynamically stable. Plan to continue pantoprazole per recommendations. Continue to monitor H&H and transfuse if hemoglobin drops below 7 g/dL. 2. History of coronary artery disease status post CABG/atrial fibrillation/mechanical aortic valve/ischemic cardiomyopathy The patient will be continued on a heparin infusion and blood counts will be monitored accordingly. Transfuse if hemoglobin drops below 7 g/dL. The patient has been restarted on his Coumadin. Continue to monitor INR daily. 3. Chronic pain/hyperlipidemia/tobacco abuse history Complicates care, management, recovery and prognosis. Continue home medications as indicated. This note was generated with [employer] dictation software. It may contain incorrect words, spelling, and punctuation that were not noted in checking the note before signing. Subjective Subjective The patient was seen and examined at the bedside this morning. Events from the last 24 hours have been reviewed. The patient is currently afebrile, hemodynamically stable and maintaining appropriate oxygen saturations on room air. Hemoglobin and platelet count are stable. INR was noted to be 1.6 this morning. The patient was restarted on Coumadin last evening. No overnight events were noted by the nursing staff. Objective Data Objective Data The patient's most recent lab work, culture data and imaging studies have all been personally reviewed. Vital Signs: Vital Signs Temp Pulse Resp BP Pulse Ox O2 Del Method O2 Flow Rate 97.9 F 62 18 112/52 L 93 Room Air 2 05/05/23 03:00 05/05/23 06:53 05/05/23 06:53 05/05/23 03:00 05/05/23 06:53 05/05/23 06:53 05/04/23 03:00 Oxygen Flow Rate (L/min) 2 Oxygen Delivery Method Room Air Weight: 143 lb 8.335 oz Body Mass Index (BMI) 20.5 Intake & Output: Intake and Output for Last 24 Hours 05/03/23 05/04/23 05/05/23 23:59 23:59 23:59 Intake Total 1162.50 / 1162.50 1373.17 / 1373.17 1097 / 1097 Output Total 1145 / 1445 1075 / 1075 Balance 17.50 / -282.50 298.17 / 298.17 1097 / 1097 Medical Nutrition Assessment Dietitian: Malnutrition Criteria Met Start: 05/02/23 10:39 Freq: Status: Active Protocol: Document 05/02/23 10:39 SLA (Rec: 05/02/23 10:39 SLA Desktop) Nutrition Malnutrition Evidence of Malnutrition Exists Yes Malnutrition (severe): Acute Illness/Injury Evidenced By Suboptimal Energy Intake ( Severe),Weight Loss (Severe) Clinical Problem Acute Disease or Injury Related Malnutrition Etiology related to acute illness and suboptimal energy intake Signs/Symptoms as evidenced by suspected 4.34 % unintended wt loss 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 05/05/23 05:30 05/05/23 05:30 Labs: Laboratory Results - last 24 hr 05/03/23 04:40: Diff Path Review Reviewed 05/04/23 05:25: Diff Path Review Reviewed 05/04/23 08:10: PT 15.9 H, INR 1.3, APTT 52.8 H 05/05/23 05:30: WBC 3.5 L, RBC 2.64 L, Hgb 7.8 L, Hct 25.5 L, MCV 96.6 H, MCH 29.5, MCHC 30.6 L, RDW Std Deviation 62.0 H, RDW Coeff of Kalyan 17.6 H, Plt Count 88 L, MPV 10.9, Immature Gran % (Auto) 0.600, Neut % (Auto) 78.4 H, Lymph % (Auto) 10.2 L, [place] % (Auto) 8.5, Eos % (Auto) 1.7, Baso % (Auto) 0.6, Absolute Neuts (auto) 2.8, Absolute Lymphs (auto) 0.36 L, Nucleated RBC % 0.6, Diff Path Review May foll, Platelet Estimate MOD DEC, Hypochromasia 1+, Anisocytosis 1+, Macrocytosis 1+, PT 19.2 H, INR 1.6, Sodium 144, Potassium 3.8, Chloride 117 H, Carbon Dioxide 23.0, Anion Gap 4 L, BUN 14, Creatinine 1.46 H, Estim Creat Clear Calc 34.06, Est GFR (MDRD) Af Amer 59 L, Est GFR (MDRD) Non-Af 49 L, BUN/Creatinine Ratio 9.6 L, Glucose 103, Calcium 8.1 L Micro: Microbiology 05/01/23 19:12 Stool Stool Occult Blood (COREEN) - Final Occult Blood Positive Rhythm Strip Rhythm Strip: paced Rate: 60 Ectopy: None Physical Exam Const alert and no apparent distress General Appearance: cooperative HEENT normocephalic and head/scalp atraumatic Eyes PERRL, EOMs intact bilaterally and conjunctivae normal Neck supple General: trachea midline Chest inspection of chest normal Resp normal respiratory effort Auscultation: Negative for rales, rhonchi or wheezes Cardio regular rate, S1 normal heart sound and S2 normal heart sound Heart Sounds: murmur GI normal to inspection, nondistended, normoactive bowel sounds Extremity no clubbing, cyanosis or edema Skin no rashes or lesions noted Neuro CN's II-XII intact bilaterally and no focal motor deficits Psych cooperative and affect normal Charges/Coding Visit Charges Inpatient E&M: 31211 Subs Hosp L2
[2023-05-05] MEDS: Potassium Chloride Oral Tablet 10 MEQ PO (10:13)
[2023-05-05] MEDS: Cholecalciferol (VIT D3) 25 MCG TABLET (1,000 UNITS) PO (10:13)
[2023-05-05] MEDS: Amiodarone 200 MG Tablet PO (10:13)
[2023-05-05] MEDS: Ferrous Sulfate 325 MG Tablet PO ×2 (10:13→17:08)
[2023-05-05] MEDS: Metoprolol(XL)Succ 100 MG Tablet PO ×2 (10:14→21:33)
--- NOTE | 2023-05-05 10:40 | CASEMGMT ---
SURY MUNOZ note: Annika @ [facility] made aware anticipate pt may be medically ready for discharge tomorrow. Roxana RASHID RN CM
--- NOTE | 2023-05-05 10:41 | PCM.PROGNOTE ---
Subjective Subjective Patient seen and examined. He had no complaints today. Review of systems is otherwise negative. Hb is 7.8. Coumadin was started yesterday. Objective Data Objective Data Vital Signs: Vital Signs Temp Pulse Resp BP Pulse Ox O2 Del Method O2 Flow Rate 98.2 F 60 16 113/70 98 Room Air 2 05/05/23 10:14 05/05/23 10:14 05/05/23 10:14 05/05/23 10:14 05/05/23 10:14 05/05/23 10:14 05/04/23 03:00 Oxygen Flow Rate (L/min) 2 Oxygen Delivery Method Room Air Weight: 143 lb 8.335 oz Body Mass Index (BMI) 20.5 Intake & Output: Intake and Output for Last 24 Hours 05/03/23 05/04/23 05/05/23 23:59 23:59 23:59 Intake Total 1162.50 / 1162.50 1373.17 / 1373.17 1097 / 1097 Output Total 1145 / 1445 1075 / 1075 Balance 17.50 / -282.50 298.17 / 298.17 1097 / 1097 Medical Nutrition Assessment Dietitian: Malnutrition Criteria Met Start: 05/02/23 10:39 Freq: Status: Active Protocol: Document 05/05/23 09:55 AG (Rec: 05/05/23 09:56 AG [id number]) Nutrition Malnutrition Evidence of Malnutrition Exists Yes Malnutrition (severe): Acute Illness/Injury Evidenced By Suboptimal Energy Intake ( Severe),Weight Loss (Severe) Clinical Problem Acute Disease or Injury Related Malnutrition Etiology severe acute malnutrition related to inadequate energy intake Signs/Symptoms as evidenced by unintentional 5.3#/3.5% wt loss x 2 weeks, estimated PO intake meeting < 75% of estimated energy needs > 1 week Status Active Problem Recommendation Dietitian Recommendations/Changes Continue regular diet as tolerated; will add carnation instant breakfast 8 ounces w/ lunch and dinner for additional nutrition if consumed given evidence of malnutrition Lab / Micro Data 05/05/23 05:30 05/05/23 05:30 Labs: Laboratory Results - last 24 hr 05/01/23 19:16: Crossmatch See Detail 05/03/23 04:40: Diff Path Review Reviewed 05/04/23 05:25: Diff Path Review Reviewed 05/05/23 05:30: WBC 3.5 L, RBC 2.64 L, Hgb 7.8 L, Hct 25.5 L, MCV 96.6 H, MCH 29.5, MCHC 30.6 L, RDW Std Deviation 62.0 H, RDW Coeff of Kalyan 17.6 H, Plt Count 88 L, MPV 10.9, Immature Gran % (Auto) 0.600, Neut % (Auto) 78.4 H, Lymph % (Auto) 10.2 L, [place] % (Auto) 8.5, Eos % (Auto) 1.7, Baso % (Auto) 0.6, Absolute Neuts (auto) 2.8, Absolute Lymphs (auto) 0.36 L, Nucleated RBC % 0.6, Diff Path Review November, Platelet Estimate MOD DEC, Hypochromasia 1+, Anisocytosis 1+, Macrocytosis 1+, PT 19.2 H, INR 1.6, Sodium 144, Potassium 3.8, Chloride 117 H, Carbon Dioxide 23.0, Anion Gap 4 L, BUN 14, Creatinine 1.46 H, Estim Creat Clear Calc 34.06, Est GFR (MDRD) Af Amer 59 L, Est GFR (MDRD) Non-Af 49 L, BUN/Creatinine Ratio 9.6 L, Glucose 103, Calcium 8.1 L Micro: Microbiology 05/01/23 19:12 Stool Stool Occult Blood (COREEN) - Final Occult Blood Positive Rhythm Strip Rhythm Strip: paced Rate: 60 Ectopy: None Physical Exam Const alert, oriented x3 and no apparent distress General Appearance: cooperative HEENT normocephalic, head/scalp atraumatic, moist oral mucous membranes and oropharynx normal Eyes PERRL and EOMs intact bilaterally Neck supple and no JVD Lymph Lymphatic: no lymphadenopathy noted and no lymphedema noted Resp normal respiratory effort, normal air movement and clear to auscultation bilaterally Cardio regular rate, regular rhythm, S1 normal heart sound and S2 normal heart sound Peripheral Pulses: pulses 2+ throughout GI normal to inspection, nondistended, normoactive bowel sounds, soft to palpation, non-tender and non-distended Extremity normal capillary refill, no clubbing, cyanosis or edema and no calf tenderness Skin General Skin Exam: no breakdown Neuro CN's II-XII intact bilaterally, no focal motor deficits, no sensory deficits noted and deep tendon reflexes 2+ bilaterally Motor Exam: strength 5/5 throughout and general weakness Psych thought process normal and cooperative Appearance: appropriate Assessment & Plan Assessment/Plan (1) Acute upper GI bleed: (2) Acute blood loss anemia: (3) Supratherapeutic INR: PLAN: Plan #Acute on chronic anemia due to acute blood loss anemia s/p EGD which showed oozing gastric ulcer with pigmented material which was injected and and oozing gastric ulcers with visible vessel which was treated with a heater probe. on IV PPI drip still on heparin drip; coumadin resumed. Hb today is 7.8 gastroenterology on board critical care also on board. #Pancytopenia Platelets are up to 88, have improved from 76. hb today is 7.8 and wbc is 3.5. Likely due to acute GI bleed. Will monitor for now and trend. #Supratherapeutic iNR: resolved with K Centra and Vitamin K. Now on heparin drip and coumadin resumed. INR is 1.6. #Hypernatremia: resolved. sodium is 144. #Hypokalemia: resolved. K is 3.8 #Afib: on amiodarone. now on heparin drip. coumadin resumed. INR is 1.6. #HFrEF: not in exacerbation. lasix held for now. ON Jardiance. Metoprolol also held. #SALVADOR on CKD 3: Cr is 1.46 today, which is around his baseline of 1.4. #History of aortic valve stenosis s/p artificial aortic valve: he has a St Rachid aortic valve in place. coumadin resumed today. INR is 1.6. #Nicotine dependence: counseled to quit. #Chronic pain: on buprenorphine patch DVT prophylaxis: now on heparin drip. coumadin also resumed. INR is 1.6 Disposition; dc when INR is therapeutic. Charges/Coding Visit Charges Inpatient E&M: 31198 Subs Hosp L2
[2023-05-05] MEDS: Tamsulosin HCl 0.4 MG Capsule PO (17:08)
--- NOTE | 2023-05-05 17:12 | PN.GI_ITS ---
Subjective Subjective Patient is eating in the chair with his daughter at the bedside. He has not seen any signs of GI bleeding. He denies any abdominal pain, chest pain or shortness of breath. Objective Data Objective Data Vital Signs: Vital Signs Temp Pulse Resp BP Pulse Ox O2 Del Method O2 Flow Rate 97.6 F L 60 12 126/67 H 95 Room Air 2 05/05/23 17:05 05/05/23 17:05 05/05/23 17:05 05/05/23 17:05 05/05/23 17:05 05/05/23 17:05 05/04/23 03:00 Oxygen Flow Rate (L/min) 2 Oxygen Delivery Method Room Air Weight: 143 lb 8.335 oz Body Mass Index (BMI) 20.5 Intake & Output: Intake and Output for Last 24 Hours 05/03/23 05/04/23 05/05/23 23:59 23:59 23:59 Intake Total 1162.50 / 1162.50 1373.17 / 1373.17 1197 / 1197 Output Total 1145 / 1445 1075 / 1075 Balance 17.50 / -282.50 298.17 / 298.17 1197 / 1197 Medical Nutrition Assessment Dietitian: Malnutrition Criteria Met Start: 05/02/23 10:39 Freq: Status: Active Protocol: Document 05/05/23 09:55 AG (Rec: 05/05/23 09:56 AG [id number]) Nutrition Malnutrition Evidence of Malnutrition Exists Yes Malnutrition (severe): Acute Illness/Injury Evidenced By Suboptimal Energy Intake ( Severe),Weight Loss (Severe) Clinical Problem Acute Disease or Injury Related Malnutrition Etiology severe acute malnutrition related to inadequate energy intake Signs/Symptoms as evidenced by unintentional 5.3#/3.5% wt loss x 2 weeks, estimated PO intake meeting < 75% of estimated energy needs > 1 week Status Active Problem Recommendation Dietitian Recommendations/Changes Continue regular diet as tolerated; will add carnation instant breakfast 8 ounces w/ lunch and dinner for additional nutrition if consumed given evidence of malnutrition Lab / Micro Data 05/05/23 05:30 05/05/23 05:30 Labs: Laboratory Results - last 24 hr 05/01/23 19:16: Crossmatch See Detail 05/05/23 05:30: WBC 3.5 L, RBC 2.64 L, Hgb 7.8 L, Hct 25.5 L, MCV 96.6 H, MCH 29.5, MCHC 30.6 L, RDW Std Deviation 62.0 H, RDW Coeff of Kalyan 17.6 H, Plt Count 88 L, MPV 10.9, Immature Gran % (Auto) 0.600, Neut % (Auto) 78.4 H, Lymph % (Auto) 10.2 L, [place] % (Auto) 8.5, Eos % (Auto) 1.7, Baso % (Auto) 0.6, Absolute Neuts (auto) 2.8, Absolute Lymphs (auto) 0.36 L, Nucleated RBC % 0.6, Diff Path Review November, Platelet Estimate MOD DEC, Hypochromasia 1+, Anisocytosis 1+, Macrocytosis 1+, PT 19.2 H, INR 1.6, Sodium 144, Potassium 3.8, Chloride 117 H, Carbon Dioxide 23.0, Anion Gap 4 L, BUN 14, Creatinine 1.46 H, Estim Creat Clear Calc 34.06, Est GFR (MDRD) Af Amer 59 L, Est GFR (MDRD) Non-Af 49 L, BUN/Creatinine Ratio 9.6 L, Glucose 103, Calcium 8.1 L Micro: Microbiology 05/01/23 19:12 Stool Stool Occult Blood (COREEN) - Final Occult Blood Positive Rhythm Strip Rhythm Strip: paced Rate: 60 Ectopy: None Physical Exam Const alert, oriented x3 and no apparent distress General Appearance: cooperative HEENT normocephalic, head/scalp atraumatic, moist oral mucous membranes and oropharynx normal Eyes PERRL and EOMs intact bilaterally Neck supple and no JVD Lymph Lymphatic: no lymphadenopathy noted and no lymphedema noted Resp normal respiratory effort, normal air movement and clear to auscultation bilaterally Cardio regular rate, regular rhythm, S1 normal heart sound and S2 normal heart sound Peripheral Pulses: pulses 2+ throughout GI normal to inspection, nondistended, normoactive bowel sounds, soft to palpation, non-tender and non-distended Extremity normal capillary refill, no clubbing, cyanosis or edema and no calf tenderness Skin General Skin Exam: no breakdown Neuro CN's II-XII intact bilaterally, no focal motor deficits, no sensory deficits noted and deep tendon reflexes 2+ bilaterally Motor Exam: strength 5/5 throughout and general weakness Psych thought process normal and cooperative Appearance: appropriate Assessment & Plan Assessment/Plan (1) Acute blood loss anemia: PLAN: Hgb is up to 7.8. Transfuse for a hgb < seven. Gastric gastric ulcer from an anti-platelet medicine complicated by supratherapeutic INR and clopidogrel Warfarin currently held Given recent PCI, will need to continue clopidogrel On ppi (2) Supratherapeutic INR: PLAN: I am not sure that he doesn't have cirrhosis. H his fibro scan did show a stiffness of 11.5 kPa and he has persistent thrombocytopenia with elevated MCV. Given his underlying heart disease, he has a strong probability of cirrhosis. His INR is increasing and it is up to 1.6. He was started back on Coumadin. He has not shown any signs of bleeding at this time and that is on heparin drip and Coumadin. Hopefully as hemoglobin will continue to increase. He will need to get a capsule endoscopy as an outpatient. (3) SALVADOR (acute kidney injury): PLAN: Creatinine 1.62. Creatinine from [facility] on 03/25 was 1.33. Previous FEUrea 53.16% renal US shows horseshoe kidney. right renal cyst. (4) Encephalopathy: PLAN: He's nothe is not showing any signs of encephalopathy at this time. I would play some on lactulose 20 cc twice a day as a fax and five and 50 mg twice a day while he's in the hospital. PLAN: Plan Chronic complicating conditions: * HFrEF ischemic cardiomyopathy-according to [facility] records, patient's ejection fraction was 20-30%. No evidence of acute exacerbation on CXR. Continue metoprolol succinate. * permanent atrial fibrillation on Heparin, drip. Patient has also been on amiodarone which can cause fatty liver disease, and MEJIA Marquez. He is at risk for congestive hepatopathy. * mechanical aortic valve- On heparin drip * coronary artery disease-patient had recent stents placed in the LAD on 03/11. Charges/Coding Visit Charges Inpatient E&M: 16783 [facility] Hosp L3
[2023-05-05] MEDS: Atorvastatin Calcium 80 MG Tablet PO (21:32)
[2023-05-05] MEDS: Folic Acid 1 MG Tablet PO (21:32)
[2023-05-05] MEDS: Ceftriaxone 1 GM/50 ML BAG IV (21:32)
[2023-05-05] MEDS: Zolpidem Tartrate 5 MG Tablet PO (21:34)
[2023-05-06] MEDS: Pantoprazole Sodium 80 MG in 0.9% Normal Saline (100mL Bag) 80 ML 10 MG CONT INF (00:27)
[2023-05-06 02:00] VITALS: BP 112/60; PULSE 60; RESP 18; TEMP 36.6; O2SAT 97
[2023-05-06 02:42] VITALS: BMI 20.8
[2023-05-06 02:43] LABS: Absolute Lymphocyte Count 0.41 X10^3/uL (0.83-4.51); Absolute Neutrophil Count 2.9 X10^3/uL (2.0-7.7); Basophil# 0.02 X10^3/uL; Basophil% 0.5 % (0-1); Eosinophil# 0.06 X10^3/uL; Eosinophils% 1.6 % (0-5); Hematocrit 26.5 % (40-54); Lymphocyte # 0.41 X10^3/ul (0.83-4.51); Lymphocyte % 11.1 % (19-41); Mean Corp Hgb Conc 30.2 g/dL (32-36); Mean Corpuscular Hgb 29.2 pg (27.0-32.0); Mean Corpuscular Volume 96.7 fL (80-94); Mean Platelet Vol. 11.3 fl (6.2-12.0); Monocyte# 0.27 X10^3/uL; Monocyte% 7.3 % (0-10); NRBC Flagged by Analyzer 0 % (0-5); Neutrophil # 2.91 X10^3/uL (2.7-7.7); POSITIVE DIFFERENTIAL YES; Platelet Count 100 K/mm3 (150-450); RBC Distribution Width CV 17.8 % (11.6-14.6); RBC Distribution Width SD 61.5 fl (35.1-43.9); Red Blood Count 2.74 M/mm3 (4.6-6.2); White Blood Count 3.7 K/mm3 (4.4-11.0)
[2023-05-06 02:57] LABS: Differential Indicated SCAN CRITERIA MET
[2023-05-06 02:59] LABS: Anion Gap 4 (5-15); BUN 19 mg/dL (7-18); BUN/Creat Ratio 12.3 RATIO (10-20); Calcium,Total 8.3 mg/dL (8.5-10.1); Chloride 117 mmol/L (98-107); Creatinine, Serum 1.55 mg/dL (0.70-1.30); EST Glomerular Filtration Rate 46 mL/min (>60); Est Glom Filt Rate - Afr Amer 55 mL/min (>60); Estimated Creatinine Clearance 32.53 ml/min; Glucose 110 mg/dL (74-106); Potassium 4.4 mmol/L (3.5-5.1); Sodium Level 145 mmol/L (136-145)
[2023-05-06 03:16] LABS: Differential Comment SCANNED
[2023-05-06 07:36] VITALS: PULSE 73; RESP 18
[2023-05-06] MEDS: Ipratropium/Albuterol Sulfate 3 ML AMPUL.NEB INHALATION (07:45)
[2023-05-06 08:00] VITALS: BP 109/93; PULSE 60; RESP 16; TEMP 36.8; O2SAT 98
[2023-05-06 08:07] VITALS: BP 109/93; PULSE 60
[2023-05-06] MEDS: Metoprolol(XL)Succ 100 MG Tablet PO (08:07)
[2023-05-06] MEDS: Amiodarone 200 MG Tablet PO (08:07)
[2023-05-06] MEDS: Cholecalciferol (VIT D3) 25 MCG TABLET (1,000 UNITS) PO (08:07)
[2023-05-06] MEDS: Ferrous Sulfate 325 MG Tablet PO (08:07)
[2023-05-06] MEDS: Potassium Chloride Oral Tablet 10 MEQ PO ×2 (08:07)
[2023-05-06] MEDS: Lactulose 20 GM/30 ML UDC PO (08:07)
[2023-05-06 08:44] LABS: International Normalized Ratio 2.2; Prothrombin Time (Protime)PT. 24.5 SECONDS (11.7-14.9)
[2023-05-06] MEDS: Pantoprazole Sodium 40 MG Tablet PO (10:31)
[2023-05-06 10:48] LABS: Pathologist Review Reviewed
--- NOTE | 2023-05-06 11:59 | NURSING ---
Dr Sellers rounded on this patient this am while daughter was in the room. She expressed her plans to discharge the patient, after Dr. Sellers had left the daughter expressed concern about the patients confusion and him being unsteady, this RN offered multiple times to call the physician and have her re-evaluate before discharge. Daughter declined. Daughter was also in the hallway speaking to other visitors about her concern of the patient going home. This RN again expressed to the daughter I would call the physician and have her come back and evaluate the patient again the daughter declined. Director Of Customer Service notified as well by this RN.
--- NOTE | 2023-05-06 12:02 | PCM.DC.SUM ---
Providers Date of Admission: 05/01/23 Date of Discharge: 05/06/23 Primary Care Physician: Dr. Guillermo Pritchard MD Consultations 05/01/23 20:57 Consult: Gastroenterology Routine Consulting Provider: WoodFazal Reason for Consult: GI bleed EMERGENT Consult: No Notified: Yes Date Notified: 05/01/23 Time Notified: 20:19 Method of Notification: ED Physician Initiated Consult: Manager Of Sales / Pulmonary Medicine Routine Consulting Provider: Kevin Benites Reason for Consult: ABLA; With scheduled aortic valve EMERGENT Consult: No Notified: Yes Date Notified: 05/01/23 Time Notified: 20:54 Method of Notification: Text Reason For Visit: ABLA FROM UPPER GI BLEED Diagnosis Discharge Diagnosis (1) Acute blood loss anemia: Status: Resolved Code(s): D62 - Acute posthemorrhagic anemia (2) Supratherapeutic INR: Status: Resolved Code(s): R79.1 - Abnormal coagulation profile (3) SALVADOR (acute kidney injury): Status: Resolved Code(s): N17.9 - Acute kidney failure, unspecified (4) Encephalopathy: Status: Resolved Code(s): G93.40 - Encephalopathy, unspecified Plan #Acute on chronic anemia due to acute blood loss anemia s/p EGD which showed oozing gastric ulcer with pigmented material which was injected and and oozing gastric ulcers with visible vessel which was treated with a heater probe. on IV PPI drip still on heparin drip; coumadin resumed. Hb today is 7.8 gastroenterology on board critical care also on board. #Pancytopenia Platelets are up to 88, have improved from 76. hb today is 7.8 and wbc is 3.5. Likely due to acute GI bleed. Will monitor for now and trend. #Supratherapeutic iNR: resolved with K Centra and Vitamin K. Now on heparin drip and coumadin resumed. INR is 1.6. #Hypernatremia: resolved. sodium is 144. #Hypokalemia: resolved. K is 3.8 #Afib: on amiodarone. now on heparin drip. coumadin resumed. INR is 1.6. #HFrEF: not in exacerbation. lasix held for now. ON Jardiance. Metoprolol also held. #SALVADOR on CKD 3: Cr is 1.46 today, which is around his baseline of 1.4. #History of aortic valve stenosis s/p artificial aortic valve: he has a St Rachid aortic valve in place. coumadin resumed today. INR is 1.6. #Nicotine dependence: counseled to quit. #Chronic pain: on buprenorphine patch DVT prophylaxis: now on heparin drip. coumadin also resumed. INR is 1.6 Disposition; dc when INR is therapeutic. Medications at Discharge Home Medications albuterol sulfate 90 mcg/actuation breath activated powder inhaler 2 puff inhalation Q4H PRN Shortness Of Breath 09/25/15 cholecalciferol (vitamin D3) 25 mcg (1,000 unit) tablet 1,000 unit PO DAILY SUPPLEMENT 09/25/15 folic acid 1 mg tablet 1 mg PO QHS SUPPLEMENT 06/24/16 pantoprazole 40 mg tablet,delayed release 40 mg PO BID ACID REFLUX 01/02/18 tiotropium 2.5 mcg-olodaterol 2.5 mcg/actuation mist for inhalation (Stiolto Respimat) 1 puff inhalation BID ASTHMA 06/18/21 ipratropium 0.5 mg-albuterol 3 mg (2.5 mg base)/3 mL nebulization soln 3 ml inhalation 4X/DAY SHORTNESS OF BREATH 11/25/21 ferrous sulfate 325 mg (65 mg iron) tablet 325 mg PO BID IRON SUPPLEMENT 04/06/22 buprenorphine 15 mcg/hour weekly transdermal patch 15 mcg transdermal FULLER PAIN 08/24/22 nitroglycerin 0.4 mg sublingual tablet 0.4 mg sublingual Q5M PRN Chest Pain #25 tabs 09/17/22 clopidogrel 75 mg tablet 75 mg PO DAILY antiplatelet 03/29/23 rosuvastatin 40 mg tablet (Crestor) 40 mg PO DAILY cholesterol 03/29/23 lactulose 10 gram/15 mL (15 mL) oral solution 20 g (30 mL) PO DAILY #1,440 mL 04/04/23 furosemide 20 mg tablet 20 mg PO DAILY dose has been decreased #90 tabs 04/25/23 potassium chloride 10 mEq tablet,extended release 10 meq PO DAILY #30 tabs 04/25/23 amiodarone 200 mg tablet 200 mg PO DAILY afib #90 tabs 04/28/23 empagliflozin 10 mg tablet (Jardiance) 10 mg PO DAILY heart health #90 tabs 10/12/23 metoprolol succinate 100 mg tablet,extended release 24 hr 100 mg PO Q12H blood pressure #180 tabs 04/28/23 warfarin 5 mg tablet 2.5 - 5 mg PO DAILY BLOOD THINNER 05/01/23 zolpidem 10 mg tablet mg sleep 05/03/23 Hospital Course Summary of Care Provided Minutes Spent on Discharge: 55 Hospital Course: Patient is an 83-year-old man with a past medical history as outlined which includes a history of prosthetic aortic valve replacement as well as ICD in place. He was on Coumadin. He was admitted to the ED on 05/01/2023 with a complaint of shortness of breath with associated symptoms of chest pain, melena and weakness. He felt very weak and lightheaded. He had been having loose stools at home. His stools were dark in color. On admission he was found to be anemic and INR was supratherapeutic at more than 15. He was given IV vitamin K and fresh frozen plasma. He was also given Kcentra. Gastroenterology was consulted. He was hydrated with IV fluids and admitted to the ICU. Critical care was also consulted. He was admitted and managed for acute on chronic anemia due to acute blood loss anemia. He was started on IV pantoprazole drip. He had EGD which showed oozing gastric ulcer with pigmented material which was injected and also showed oozing gastric ulcer with visible vessel which was treated with heater probe. INR came down to 1.6. He was placed on heparin drip. Bleeding did not recur. He was placed back on his Coumadin. INR the day of discharge was 2.2 and is therapeutic. He was discharged on 1 05/06/2023. He is to follow-up with his primary care doctor and gastroenterology within 1 to 2 weeks. Patient seen and examined. His daughter was by his bedside. She complained about some confusion her father had. Patient was able to tell me where he was in his full name and the year but thought that Theron was president. He had taken Ambien last night and this could have contributed to his confusion as well as the mere fact that he was in the hospital. He was about otherwise stable. He had been working well with physical therapy. Labs and vitals reviewed. Home medication reviewed and reconciled. He is follow-up with PCP for regular INR checks to make sure his INR is within the recommended 2-3 level. Physical Exam Const alert, oriented x3 and no apparent distress General Appearance: cooperative, comfortable and well kempt HEENT normocephalic, head/scalp atraumatic, hearing grossly normal bilaterally, moist oral mucous membranes and oropharynx normal Mouth: oral and palatal mucosa normal Eyes PERRL and EOMs intact bilaterally Neck no lymphadenopathy, supple and no JVD Lymph Lymphatic: no lymphadenopathy noted and no lymphedema noted Resp normal respiratory effort, normal air movement and clear to auscultation bilaterally Cardio regular rate, regular rhythm, S1 normal heart sound and S2 normal heart sound Peripheral Pulses: pulses 2+ throughout GI normal to inspection, nondistended, normoactive bowel sounds, soft to palpation, non-tender and non-distended Extremity normal to inspection, full ROM, normal capillary refill, no clubbing, cyanosis or edema and no calf tenderness Skin no rashes or lesions noted General Skin Exam: no breakdown Neuro oriented x3, CN's II-XII intact bilaterally, moves all extremities, no focal motor deficits, no sensory deficits noted and deep tendon reflexes 2+ bilaterally Sensorium / Orientation: awake Motor Exam: strength 5/5 throughout and general weakness Psych thought process normal, cooperative and affect normal Appearance: appropriate Medical Records Data Medical Nutrition Assessment Dietitian: Malnutrition Criteria Met Start: 05/02/23 10:39 Freq: Status: Active Protocol: Document 05/05/23 09:55 AG (Rec: 05/05/23 09:56 [id number]) Nutrition Malnutrition Evidence of Malnutrition Exists Yes Malnutrition (severe): Acute Illness/Injury Evidenced By Suboptimal Energy Intake ( Severe),Weight Loss (Severe) Clinical Problem Acute Disease or Injury Related Malnutrition Etiology severe acute malnutrition related to inadequate energy intake Signs/Symptoms as evidenced by unintentional 5.3#/3.5% wt loss x 2 weeks, estimated PO intake meeting < 75% of estimated energy needs > 1 week Status Active Problem Recommendation Dietitian Recommendations/Changes Continue regular diet as tolerated; will add carnation instant breakfast 8 ounces w/ lunch and dinner for additional nutrition if consumed given evidence of malnutrition Weight / BMI Weight Weight: 145 lb 8.081 oz Body Mass Index (BMI) 20.8 ABG / Lab / Microbiology Data 05/06/23 02:33 05/06/23 02:33 Laboratory: Laboratory Results - last 24 hr 05/05/23 05:30: Diff Path Review Reviewed 05/06/23 02:33: WBC 3.7 L, RBC 2.74 L, Hgb 8.0 L, Hct 26.5 L, MCV 96.7 H, MCH 29.2, MCHC 30.2 L, RDW Std Deviation 61.5 H, RDW Coeff of Kalyan 17.8 H, Plt Count 100 L, MPV 11.3, Immature Gran % (Auto) 0.500, Neut % (Auto) 79.0 H, Lymph % (Auto) 11.1 L, Caroline % (Auto) 7.3, Eos % (Auto) 1.6, Baso % (Auto) 0.5, Absolute Neuts (auto) 2.9, Absolute Lymphs (auto) 0.41 L, Nucleated RBC % 0, Differential Comment SCANNED, Diff Path Review November, Sodium 145, Potassium 4.4, Chloride 117 H, Carbon Dioxide 24.0, Anion Gap 4 L, BUN 19 H, Creatinine 1.55 H, Estim Creat Clear Calc 32.53, Est GFR (MDRD) Af Amer 55 L, Est GFR (MDRD) Non-Af 46 L, BUN/Creatinine Ratio 12.3, Glucose 110 H, Calcium 8.3 L 05/06/23 08:25: PT 24.5 H, INR 2.2 Microbiology: Microbiology 05/01/23 19:12 Stool Stool Occult Blood (COREEN) - Final Occult Blood Positive D/C Instructions Discharge Diet: Low fat / Low cholesterol Discharge Activity: Return to Normal Activity Weight Bearing Status: Weight bearing as tolerated Call your doctor if you observe: Fever of 101 or Higher, Shortness of breath, Dizziness, Swelling in the ankles and Chest pain Meaningful Use Info Meaningful Use Diagnoses (Choose all that apply): None applicable Discharge Plan Admission Admit Date/Time: 05/01/23 19:45 Primary Reason for Your Visit: GI bleed Attending Provider: Dania Sellers Primary Care Provider: Guillermo Pritchard Consulting Providers: Marv Valenzuela; Friend,Fazal Instructions Patient Instructions: GI Bleeding Ch Discharge Orders/Prescriptions Prescriptions: Continued ipratropium-albuterol 0.5 mg-3 mg(2.5 mg base)/3 mL solution for nebulization 3 ml INHALATION 4X/DAY nitroglycerin 0.4 mg tablet, sublingual 0.4 mg SUBLINGUAL Q5M PRN (Reason: Chest Pain) Qty: 25 3RF lactulose 10 gram/15 mL (15 mL) solution 20 g PO DAILY Qty: 1440 0RF pantoprazole 40 mg tablet,delayed release (DR/EC) 40 mg PO BID cholecalciferol (vitamin D3) 1,000 UNIT tablet 1,000 unit PO DAILY albuterol sulfate 90 MCG aerosol powdr breath activated 2 puff INHALATION Q4H PRN (Reason: Shortness Of Breath) Patient Comments: folic acid 1 MG tablet 1 mg PO QHS Stiolto Respimat 2.5-2.5 mcg/actuation Mist 1 puff INHALATION BID ferrous sulfate 325 MG tablet 325 mg PO BID Patient Comments: iron supplement buprenorphine 15 mcg/hour patch weekly 15 mcg transdermal FULLER warfarin 5 mg tablet 2.5 - 5 mg PO DAILY Protocol: Dose Management Condition: Tuesday Dose/Route: 2.5 mg Instruction: 0.5 x 5 mg tablets Condition: Tuesday Dose/Route: 5 mg Instruction: 1 x 5 mg tablet Condition: Tuesday Dose/Route: 2.5 mg Instruction: 0.5 x 5 mg tablets Condition: Tuesday Dose/Route: 5 mg Instruction: 1 x 5 mg tablet Condition: Dose/Route: 2.5 mg Instruction: 0.5 x 5 mg tablets Condition: Tuesday Dose/Route: 5 mg Instruction: 1 x 5 mg tablet Condition: Tuesday Dose/Route: 2.5 mg Instruction: 0.5 x 5 mg tablets Protocol Text: Adjustment Start Date: Tuesday04/25/23 INR Value: 2.9 INR Date: 04/25/23 Recheck Date: 05/02/23 Patient Comments: MOWEFR 5 mg 2.5 mg SUTUTHSA zolpidem 10 mg tablet Patient Comments: TAKE 1 TABLET BY MOUTH EVERY DAY clopidogrel 75 mg tablet 75 mg PO DAILY rosuvastatin [Crestor] 40 mg tablet 40 mg PO DAILY potassium chloride 10 mEq tablet extended release 10 meq PO DAILY Qty: 30 11RF furosemide 20 mg tablet 20 mg PO DAILY Qty: 90 3RF amiodarone 200 mg tablet 200 mg PO DAILY Qty: 90 3RF Jardiance 10 mg tablet 10 mg PO DAILY Qty: 90 3RF metoprolol succinate 100 mg tablet extended release 24 hr 100 mg PO Q12H Qty: 180 3RF Referrals / Follow Up: Guillermo Pritchard MD [Primary Care Provider] - Within 2 Weeks Fazal Muir DO [Med Staff - Active Staff] - Within 2 Weeks Disposition Disposition (needs filled in before D/C Order can be placed): Home, Self Care Charges/Coding Visit Charges Inpatient E&M: 37015 Disch Hosp >30min
--- NOTE | 2023-05-06 12:30 | CASEMGMT ---
Patient has order for discharge. SURY MUNOZ updated [facility], start of care planned for tomorrow. SURY MUNOZ in to room to discuss discharge needs with patient and daughter. Patient and daughter deny needs at discharge. SURY MUNOZ updated regading resumption of care with [facility] starting tomorrow. Patient and daughter had no further questions or concerns.
[2023-05-06 12:51] VITALS: BP 122/63; PULSE 60; RESP 18; TEMP 37.1; O2SAT 97
[2023-05-06] MEDS: Flu Vacc QS2023-24(65YR UP)/PF 240 MCG/0.7 ML Syringe IM (12:59)
[2023-05-06 14:30] LABS: Pathologist Review Reviewed
== END 2023-05-06 13:12 | disposition home health service (06) | DRG 377 ==
LOC: ED 19:45 → ICU 20:42
PROVIDERS: Internal Medicine; Internal Medicine Critical Care Medicine; Internal Medicine Gastroenterology; Admitting Provider Hospitalist; Emergency Provider Emergency Medicine; PCP Family Medicine; Visit Provider Student in an Organized Health Care Education/Training Program
PROC: 0DJ08ZZ Inspection of Upper Intestinal Tract, Via Natural or Artificial Opening Endoscopic (ICD-10-PCS; CPT 43235; principal; 2023-05-02 11:25)
DX: K25.4 Chronic or unspecified gastric ulcer with hemorrhage (principal); E43 Unspecified severe protein-calorie malnutrition; D61.818 Other pancytopenia; I13.0 Hypertensive heart and chronic kidney disease with heart failure and stage 1 through stage 4 chronic kidney disease, or unspecified chronic kidney disease; N17.9 Acute kidney failure, unspecified; I50.22 Chronic systolic (congestive) heart failure; E87.0 Hyperosmolality and hypernatremia; I48.21 Permanent atrial fibrillation; D62 Acute posthemorrhagic anemia; I95.9 Hypotension, unspecified; I27.21 Secondary pulmonary arterial hypertension; J44.9 Chronic obstructive pulmonary disease, unspecified; K74.60 Unspecified cirrhosis of liver; N18.31 Chronic kidney disease, stage 3a; K76.0 Fatty (change of) liver, not elsewhere classified; E78.00 Pure hypercholesterolemia, unspecified; I25.5 Ischemic cardiomyopathy; I25.10 Atherosclerotic heart disease of native coronary artery without angina pectoris; E87.6 Hypokalemia; Z95.2 Presence of prosthetic heart valve; N28.1 Cyst of kidney, acquired; Q63.1 Lobulated, fused and horseshoe kidney; R07.9 Chest pain, unspecified; R79.1 Abnormal coagulation profile; G89.4 Chronic pain syndrome; Z66 Do not resuscitate; Z79.02 Long term (current) use of antithrombotics/antiplatelets; Z79.84 Long term (current) use of oral hypoglycemic drugs; Z79.01 Long term (current) use of anticoagulants; Z87.891 Personal history of nicotine dependence; Z95.810 Presence of automatic (implantable) cardiac defibrillator; Z95.5 Presence of coronary angioplasty implant and graft; Z95.1 Presence of aortocoronary bypass graft; Z68.20 Body mass index [BMI] 20.0-20.9, adult; T45.525A Adverse effect of antithrombotic drugs, initial encounter
CPT/HCPCS: 71045; 80048; 82274; 82607; 82728; 82746; 82962; 83540; 83550; 83880; 84484; 85025; 85045; 85610; 85730; 86850; 86900; 86901; 86920; 86922; 93005; 94640; 94668; 94762; 97802; 97803; 99285; 99406; J7030; J7168; P9016; 90662; A4216; J2405; J3490; P9017

== ENCOUNTER → 2023-05-07 | Outpatient (CLI) | payer OTHER, SELFPAY ==
[2023-05-07 13:28] LABS: Absolute Lymphocyte Count 0.41 X10^3/uL (0.83-4.51); Absolute Neutrophil Count 3.6 X10^3/uL (2.0-7.7); Basophil# 0.02 X10^3/uL; Basophil% 0.4 % (0-1); Differential Indicated SCAN CRITERIA MET; Eosinophils% 2.2 % (0-5); Hematocrit 28.6 % (40-54); Hemoglobin 8.6 g/dL (13.0-16.5); Lymphocyte # 0.41 X10^3/ul (0.83-4.51); Lymphocyte % 9.1 % (19-41); Mean Corp Hgb Conc 30.1 g/dL (32-36); Mean Corpuscular Hgb 29.8 pg (27.0-32.0); Mean Platelet Vol. 11.5 fl (6.2-12.0); Monocyte# 0.31 X10^3/uL; Monocyte% 6.9 % (0-10); NRBC Flagged by Analyzer 0 % (0-5); Neutrophil # 3.64 X10^3/uL (2.7-7.7); POSITIVE DIFFERENTIAL YES; Platelet Count 143 K/mm3 (150-450); RBC Distribution Width CV 17.6 % (11.6-14.6); RBC Distribution Width SD 62.9 fl (35.1-43.9); Red Blood Count 2.89 M/mm3 (4.6-6.2); White Blood Count 4.5 K/mm3 (4.4-11.0)
[2023-05-07 13:32] LABS: International Normalized Ratio 2.1; Prothrombin Time (Protime)PT. 23.4 SECONDS (11.7-14.9)
[2023-05-07 13:37] LABS: Anion Gap 6 (5-15); BUN 23 mg/dL (7-18); BUN/Creat Ratio 14.8 RATIO (10-20); Calcium,Total 8.5 mg/dL (8.5-10.1); Chloride 114 mmol/L (98-107); Creatinine, Serum 1.55 mg/dL (0.70-1.30); EST Glomerular Filtration Rate 46 mL/min (>60); Est Glom Filt Rate - Afr Amer 55 mL/min (>60); Glucose 106 mg/dL (74-106); Potassium 4.7 mmol/L (3.5-5.1); Sodium Level 144 mmol/L (136-145)
[2023-05-07 13:56] LABS: Anisocytosis 1+
== END | disposition home or self-care (01) ==
PROVIDERS: PCP Family Medicine; Visit Provider Internal Medicine Gastroenterology
DX: K74.02 Hepatic fibrosis, advanced fibrosis (principal)
CPT/HCPCS: 80048; 85025; 85610

== ENCOUNTER → 2023-05-27 | Outpatient (CLI) | payer MEDICARE, SELFPAY ==
[2023-05-27 11:20] LABS: International Normalized Ratio 3.4; Prothrombin Time (Protime)PT. 34.5 SECONDS (11.7-14.9)
== END | disposition home or self-care (01) ==
LOC: LAB 09:41
PROVIDERS: PCP Family Medicine; Visit Provider Physician Assistant Medical
DX: I48.19 Other persistent atrial fibrillation (principal); Z79.01 Long term (current) use of anticoagulants
CPT/HCPCS: 36415; 85610

== ENCOUNTER → 2023-06-14 | Outpatient (CLI) | payer MEDICARE, SELFPAY ==
[2023-06-14 11:05] LABS: Prothrombin Time (Protime)PT. 56.8 SECONDS (11.7-14.9)
[2023-06-14 11:11] LABS: International Normalized Ratio 6.3
== END | disposition home or self-care (01) ==
LOC: LAB 10:33
PROVIDERS: PCP Family Medicine; Visit Provider Physician Assistant Medical
DX: I48.19 Other persistent atrial fibrillation (principal); Z79.01 Long term (current) use of anticoagulants
CPT/HCPCS: 36415; 85610

== ENCOUNTER 2023-06-15 11:46 | Day surgery (SDC) | payer MEDICARE, SELFPAY ==
[2023-06-15 12:08] VITALS: BP 105/53; PULSE 60; RESP 18; TEMP 36.3; O2SAT 100; BMI 20.7
[2023-06-15] MEDS: Lactated Ringers 1,000 ML 15 ML IV (12:10)
--- NOTE | 2023-06-15 12:29 | HP.PCM_ITS ---
History and Physical Date of Admission: 06/15/23 REBECCA ARRIOLA, is a 83 M who presents to the office today for follow up. *[facility] hospitalization 08.16.21-2 for management of acute respiratory failure, rhabdomyolysis and dysphagia. GI consulted and discharged in stable condition. EGD .09.08 diffuse white plaques; Schatzki ring, Savary 33F. Acute inflammation with fungal infection. [facility] hospitalization 10.22.21-4 for hematemesis with acute blood loss anemia noting supratherapeutic INR. EGD 10.22.21 red blood at cricopharyngeus, gastric body. No specimens collected. No active bleed, suspect oropharynx origin. Outpatient workup: Barium swallow 12.28.21 tertiary contraction of esophagus; circumferential narrowing at GEJ with tablet trapping. [facility] hospitalization 04.02.22-04.04.22 acute blood loss anemia with GIB CT abd/pel emphysema changes of lung; hepatic fatty infiltration with splenomegaly; horseshoe kidney; minor ileus with diffuse fecal retention; thick walled urinary bladder with prostate prominence EGD and colonoscopy 04.03.22 EGD medium hiatal hernia. No specimens Colonoscopy non bleeding hemorrhoids; five TA polyps; two medium bleeding AVM, bipolar probe; TI with red blood. OV 06.29.22 noting hgb trending downward with SOB and dizziness and hypotension with pacemaker placement . [facility] ED 06.29.22 following BGI OV with suspicion of hypotension r/t HR or A.Fib RVR in office; hgb increased from previously to 8.9. Discharged home without intervention [facility] hospitalization 08.24.22-08.26.22 without GI consult for rectal pain noting perirectal abscess, recurrent of left buttock with repeated incision and drainage. Discharge with PO augmentin. OV 10.05.22 doing well without signs/symptoms GIB. Hematology established for management of anemia with oral iron replacement. [facility] hospitalization 03.29.23-04.02.23 for management of blood loss anemia s/p 2 units PRBC, subtherapeutic INR, SALVADOR, encephalopathy likely metabolic. e OV 04.04.23 with abdominal pain. US/elastography 04.15.23 hepatic measurement 13.5cm with normal echogenicity, stiffness 11.7kPa Contact 04.22.23 with results. Continue current therapy [facility] hospitalization 05.01.23-05.06.23 for management of GIB with anemia, SALVADOR and encephalopathy with chronic conditions. EGD 05.02.23 six oozing gastric ulcers, one injected with epinephrine and five with heater probe. FIB 4 .14. 3.36 02.08. 3.16 07.. 3.21 OV 05.24.23: The patient was admitted in May 01- May 09 for multiple acute issues including acute on chronic anemia due to acute blood loss anemia, pancytopenia, supratherapeutic INR which required Kcentra and vitamin K, hyponatremia and hypokalemia. Pt has improved since last hospital stay. Daughter reports he has not had any dizziness or weakness. Some SOB on exertion. Was able to go out and grocery shop the other day. Denies abdominal pain, nausea or heartburn. BM have been normal. Has not had to use the Lactulose. No bloody or dark stools. ROS Const Constitutional: Positive for fatigue, weakness and weight change ENT ENT: Positive for difficulty swallowing Cardio Cardiology: Positive for leg pain with exertion Gastro GI: Positive for heartburn and difficulty swallowing; No abdominal pain, belching, bloating, change in bowel habits, change in stool character, coffee ground emesis, constipation, cramping, diarrhea, feeling full early, excessive flatus, incontinent of stools, Vomiting blood/hematemesis, Blood in stool, loose stools, Black,tarry stools, nausea/dyspepsia, pain with swallowing, vomiting or other Musc Musculoskeletal: Positive for joint pain, back pain, Arthritis, restless legs, leg pain at night and leg pain with exertion Skin Skin: No yellowing of the eye or itchy eyes Neuro Neurology: Positive for weakness and restless legs Psych Psychiatric: No anxiety and No depression Endo Endocrine: Positive for fatigue and weight change Aller/Imm Allergy/Immunologic: No itchy eyes Jayant/Lymp Hematologic/Lymphatic: Positive for easy bruising; No easy bleeding Exam Const General: cooperative, no acute distress and well developed Nutritional Appearance: average body habitus Orientation: alert, awake and oriented x3 HENMT Head: normocephalic and atraumatic Nose: external nose normal Face and sinus: normal facial exam Mouth: moist mucous membranes Eyes Pupils: PERRL EOM: EOM intact bilaterally Neck Neck: normal visual inspection, no meningeal signs and trachea midline Carotids: no bruits Chest Chest palpation & inspection: normal inspection of the chest Resp Effort & Inspection: normal respiratory effort and symmetric chest movement Auscultation: Bilateral: Clear to Auscultation Cardio Palpation: normal PMI Rate: regular rate Rhythm: regular rhythm Heart Sounds: S1 normal and S2 normal Other: Artificial aortic valve metallic sound. Systolic murmur cardiac And LLSB. GI Auscultation: normal bowel sounds Percussion: normal to percussion Palpation: soft, no hepatosplenomegaly and no guarding General: bimanual renal exam normal bilaterally, bladder normal to inspection and bladder normal to palpation Musc Musculoskeletal: No joint tenderness, joint redness, joint warmth or decreased range of motion Thoracic/Lumbar Spine: thor and lumb spine abnorm to inspection Skin General: rashes and/or lesions noted, turgor normal and no erythema Wounds: wound noted Neuro General: patient alert, patient awake, patient oriented x3 and no focal motor deficits Speech: speech normal Motor: muscle tone normal throughout Extrem General: normal exam except as noted Psych Appearance: grossly normal Mood: congruent mood Affect: normal affect Attitude: cooperative Quality Reporting Tobacco Screening ([facility] 138) Smoking Status: Former smoker Assessment and Plan Assessment and Plan (1) Liver fibrosis: Status: Chronic Plan: FIB 4 score, 3.05 point suggestive of advanced fibrosis Metavir F3 F4, approximate Barney 2-3 NAFLD score -0.09 correlates with intraoperative discord. Liver ultrasound with elastography shows a liver 13.5 cm with normal echogen icity. Hepatopetal color flow no demonstrated mass. Median liver stiffness 11.7 kPa. Disparity between the median liver stiffness and the NAFLD score in ideal condition we should do liver biopsy but with increased risk of bleeding on 2 blood thinners and low functional status, liver biopsy is contraindicated. We will try to manage comorbidities.Patient does not have diabetes mellitus. He is BMI is 19.8%. BP is on lower side. Last fasting profile in December 2022, within normal limit. Triglyceride 94, LDL 61. The patient might have increased liver fibrosis score because of cardiac issues. (2) Low BP: Status: Acute Qualifiers: Hypotension type: hypotension due to drug Qualified Code(s): I95.2 - Hypotension due to drugs Plan: Patient is on metoprolol succinate 100 mg twice daily advised to decrease to 50 mg twice daily. Her daughter manage heart rate and blood pressure. Advised to inform the [facility]. Patient has extensive heart disease including chronic HFrEF with EF 20- 30% as per last echo in February 2023 by [facility], artificial aortic valve and coronary artery disease status post stents. Mild global hypokinesis. Patient also had 2 stents in February 2023 along with a deflated and is on Plavix and warfarin Patient is also on Lasix and potassium supplement and potassium is 4.7. 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 (3) Anemia: Status: Chronic Qualifiers: Anemia type: iron deficiency Iron deficiency anemia type: chronic blood loss Qualified Code(s): D50.0 - Iron deficiency anemia secondary to blood loss (chronic) Comment: Anemia is improving, iron profile is normal today. Plan: Hemoglobin is 8.6/hematocrit 28.6. Platelet count is 143. MCV 99. We will do iron work-up and ferritin. INR is 2.1. With recent in-stent defibrillator and aortic artificial valve and A-fib patient has to be both on Plavix and warfarin. (4) Thrombocytopenia: Status: Chronic Orders: Orders ABD Limited w/ Elastography 4 Months D64.9 - Anemia, unspecified, D69.6 - Thrombocytopenia, unspecified, I25.5 - Ischemic cardiomyopathy, K74.00 - Hepatic fibrosis, unspecified Dr. Syd Rosario MD AFP, Tumor Marker 4 Months D64.9 - Anemia, unspecified, D69.6 - Thrombocytopenia, unspecified, I25.5 - Ischemic cardiomyopathy, K74.00 - Hepatic fibrosis, unspecified Dr. Syd Rosario MD QI Comprehensive Panel 4 Months D64.9 - Anemia, unspecified, D69.6 - Thrombocytopenia, unspecified, I25.5 - Ischemic cardiomyopathy, K74.00 - Hepatic fibrosis, unspecified Dr. Syd Rosario MD ANCA 4 Months D64.9 - Anemia, unspecified, D69.6 - Thrombocytopenia, unspecified, I25.5 - Ischemic cardiomyopathy, K74.00 - Hepatic fibrosis, unspecified Dr. Syd Rosario MD Anti-Mitochondrial AB 4 Months D64.9 - Anemia, unspecified, D69.6 - Thrombocytopenia, unspecified, I25.5 - Ischemic cardiomyopathy, K74.00 - Hepatic fibrosis, unspecified Dr. Syd Rosario MD Anti-Smooth Muscle ABS 4 Months D64.9 - Anemia, unspecified, D69.6 - Thrombocytopenia, unspecified, I25.5 - Ischemic cardiomyopathy, K74.00 - Hepatic fibrosis, unspecified Dr. Syd Rosario MD CBC W/Diff, Automated 4 Months D50.0 - Iron deficiency anemia secondary to blood loss (chronic), D69.6 - Thrombocytopenia, unspecified, I25.5 - Ischemic cardiomyopathy, K74.00 - Hepatic fibrosis, unspecified Dr. Syd Rosario MD Ceruloplasmin 4 Months D64.9 - Anemia, unspecified, D69.6 - Thrombocytopenia, unspecified, I25.5 - Ischemic cardiomyopathy, K74.00 - Hepatic fibrosis, unspecified Dr. Syd Rosario MD Comprehensive Metabolic Profil 4 Months D64.9 - Anemia, unspecified, D69.6 - Thrombocytopenia, unspecified, I25.5 - Ischemic cardiomyopathy, K74.00 - Hepatic fibrosis, unspecified Dr. Syd Rosario MD Copper, Serum or Plasma 4 Months D64.9 - Anemia, unspecified, D69.6 - Thrombocytopenia, unspecified, I25.5 - Ischemic cardiomyopathy, K74.00 - Hepatic fibrosis, unspecified Dr. Syd Rosario MD CRP 4 Months D64.9 - Anemia, unspecified, D69.6 - Thrombocytopenia, unspecified, I25.5 - Ischemic cardiomyopathy, K74.00 - Hepatic fibrosis, unspecified Dr. Syd Rosario MD Erythrocyte Sed Rate 4 Months D64.9 - Anemia, unspecified, D69.6 - Thrombocytopenia, unspecified, I25.5 - Ischemic cardiomyopathy, K74.00 - Hepatic fibrosis, unspecified Dr. Syd Rosario MD Ferritin 4 Months D50.0 - Iron deficiency anemia secondary to blood loss (chronic), D69.6 - Thrombocytopenia, unspecified, I25.5 - Ischemic card iomyopathy, K74.00 - Hepatic fibrosis, unspecified Dr. Syd Rosario MD Haptoglobin 4 Months D64.9 - Anemia, unspecified, D69.6 - Thrombocytopenia, unspecified, I25.5 - Ischemic cardiomyopathy, K74.00 - Hepatic fibrosis, unspecified Dr. Syd Rosario MD Hemoglobin A1c 4 Months D50.0 - Iron deficiency anemia secondary to blood loss (chronic), D69.6 - Thrombocytopenia, unspecified, I25.5 - Ischemic cardiomyopathy, K74.00 - Hepatic fibrosis, unspecified Dr. Syd Rosario MD Hepatitis Panel Acute 4 Months D64.9 - Anemia, unspecified, D69.6 - Thrombocytopenia, unspecified, I25.5 - Ischemic cardiomyopathy, K74.00 - Hepatic fibrosis, unspecified, R53.83 - Other fatigue Dr. Syd Rosario MD HIV - [facility] 4 Months D50.0 - Iron deficiency anemia secondary to blood loss (chronic), D69.6 - Thrombocytopenia, unspecified, I25.5 - Ischemic cardiomyopathy, K74.00 - Hepatic fibrosis, unspecified Dr. Syd Rosario MD LDH 4 Months D64.9 - Anemia, unspecified, D69.6 - Thrombocytopenia, unspecified, I25.5 - Ischemic cardiomyopathy, K74.00 - Hepatic fibrosis, unspecified Dr. Syd Rosario MD Transferrin 4 Months D50.0 - Iron deficiency anemia secondary to blood loss (chronic), D69.6 - Thrombocytopenia, unspecified, I25.5 - Ischemic cardiomyopat hy, K74.00 - Hepatic fibrosis, unspecified Dr. Syd Rosario MD Prothrombin Time w/INR 4 Months D50.0 - Iron deficiency anemia secondary to blood loss (chronic), D69.6 - Thrombocytopenia, unspecified, I25.5 - Ischemic cardiomyopathy, K74.00 - Hepatic fibrosis, unspecified Dr. Syd Rosario MD Triglycerides 4 Months D64.9 - Anemia, unspecified, D69.6 - Thrombocytopenia, unspecified, I25.5 - Ischemic cardiomyopathy, I50.9 - Heart failure, unspecified, K74.00 - Hepatic fibrosis, unspecified Dr. Syd Rosario MD Lipid Profile 4 Months D64.9 - Anemia, unspecified, D69.6 - Thrombocytopenia, unspecified, I25.5 - Ischemic cardiomyopathy, I50.9 - Heart failure, unspecified, K74.00 - Hepatic fibrosis, unspecified Dr. Syd Rosario MD Iron+Iron Binding Capacity 4 Months D64.9 - Anemia, unspecified, D69.6 - Thrombocytopenia, unspecified Dr. Syd Rosario MD Medications: New ascorbic acid (vitamin C) 500 mg PO BID [address] Syd Rosario MD Changed From ferrous sulfate 325 mg PO BID IRON SUPPLEMENT To ferrous sulfate [address] Syd Rosario MD Resumed warfarin See Protocol 5 mg PO On Tuesday and Tuesday or as directed (takes a 7.5 mg tablet Tuesday through Tuesday); Dose changes often so give 90 pills 45 tabs 3R F I have examined the patient and the H&P has been reviewed. There are no clinical changes since date of exam.
[2023-06-15 12:50] VITALS: BP 105/53; BP 118/57; PULSE 60; RESP 16; TEMP 36.8; O2SAT 98
--- NOTE | 2023-06-15 12:50 | OP.CCLET_ITS ---
06/15/2023 Guillermo Pritchard MD [address] [phone] Re : Upper GI endoscopy procedure for Kash Gustabo Dear Dr. Pritchard This procedure was performed on Thursday, June 15, 2023. My impressions and recommendations are as follows: Impressions : - Abnormal esophageal motility, suspicious for esophageal spasm. Dilated. - Normal stomach. - Normal second portion of the duodenum. - No specimens collected. Recommendations : - Discharge patient to home. - Resume previous diet. - Continue present medications. My findings are described in the full procedure note, which is enclosed. If I can be of further assistance, please feel free to contact me at . Sincerely, Fazal Muir, 06/15/2023 12:49:32 PM This report has been signed electronically.
--- NOTE | 2023-06-15 12:50 | OP.EGD_ITS ---
Patient Name: Kash Montejo Procedure Date: 06/15/2023 12:13 PM Date of : 1940 Age: 83 Procedure: Upper GI endoscopy Indications: Dysphagia Providers: Fazal Muir DO Medicines: Monitored Anesthesia Care Patient Profile: This is an 83 year old male. Refer to note in patient chart for documentation of history and physical. Patient has symptoms of acute dysphagia. Complications: No immediate complications. Procedure: Pre-Anesthesia Assessment: - Prior to the procedure, a History and Physical was performed, and patient medications and allergies were reviewed. The patient is competent. The risks and benefits of the procedure and the sedation options and risks were discussed with the patient. All questions were answered and informed consent was obtained. Patient identification and proposed procedure were verified by the physician in the pre-procedure area. Mental Status Examination: alert and oriented. Airway Examination: normal oropharyngeal airway and neck mobility. Respiratory Examination: clear to auscultation. CV Examination: normal. Prophylactic Antibiotics: The patient does not require prophylactic antibiotics. Prior Anticoagulants: The patient has taken no anticoagulant or antiplatelet agents. ASA Grade Assessment: III - A patient with severe systemic disease. After reviewing the risks and benefits, the patient was deemed in satisfactory condition to undergo the procedure. The anesthesia plan was to use monitored anesthesia care (MAC). Immediately prior to administration of medications, the patient was re-assessed for adequacy to receive sedatives. The heart rate, respiratory rate, oxygen saturations, blood pressure, adequacy of pulmonary ventilation, and response to care were monitored throughout the procedure. The physical status of the patient was re-assessed after the procedure. After obtaining informed consent, the endoscope was passed under direct vision. Throughout the procedure, the patient's blood pressure, pulse, and oxygen saturations were monitored continuously. The gastroscope was introduced through the mouth, and advanced to the second part of duodenum. The upper GI endoscopy was accomplished without difficulty. The patient tolerated the procedure well. Scope In: 12:36:21 PM Scope Out: 12:39:26 PM Total Procedure Duration Time 0 hours 3 minutes 5 seconds Findings: Abnormal motility was noted in the middle third of the esophagus. The cricopharyngeus was abnormal. There is spasticity of the esophageal body. The distal esophagus/lower esophageal sphincter is spastic, but gives up passage to the endoscope. A guidewire was placed and the scope was withdrawn. Dilation was performed with a Savary dilator with no resistance at 51 Fr. The dilation site was examined following endoscope reinsertion and showed moderate improvement in luminal narrowing. The entire examined stomach was normal. The second portion of the duodenum was normal. Impression: - Abnormal esophageal motility, suspicious for esophageal spasm. Dilated. - Normal stomach. - Normal second portion of the duodenum. - No specimens collected. Recommendation: - Discharge patient to home. - Resume previous diet. - Continue present medications. Procedure Code(s): --- Professional --- 75407, Esophagogastroduodenoscopy, flexible, transoral; with insertion of guide wire followed by passage of dilator(s) through esophagus over guide wire CPT copyright 2021 [employer]. All rights reserved. The codes documented in this report are preliminary and upon medical biller/coder review may be revised to meet current compliance requirements. Fazal Muir DO 06/15/2023 12:49:32 PM This report has been signed electronically. Number of Addenda: 0 Note Initiated On: 06/15/2023 12:13 PM
--- NOTE | 2023-06-15 12:54 | SUR.PHASEI ---
SPOKE WITH DR. FONG WHO STATES IT IS OK FOR PATIENT TO EAT AND DRINK TOLERATED WITH NO RESTRICTIONS PILL CAM WAS NOT VISUALIZED AND IS NOW DOWN IN THE STOMACH
[2023-06-15 12:55] VITALS: BP 105/53; BP 108/53; PULSE 60; RESP 16; O2SAT 97
[2023-06-15 13:00] VITALS: BP 105/53; BP 89/51; PULSE 60; RESP 16; O2SAT 99
[2023-06-15 13:05] VITALS: BP 105/53; BP 94/51; PULSE 61; RESP 16; TEMP 36.6; O2SAT 94
[2023-06-15 13:27] VITALS: BP 105/53
== END 2023-06-15 13:36 | disposition home or self-care (01) ==
LOC: EN 11:48 → AC 12:03
PROVIDERS: PCP Family Medicine; Referring Provider Family Medicine; Visit Provider Internal Medicine Gastroenterology
PROC: 0DJ08ZZ Inspection of Upper Intestinal Tract, Via Natural or Artificial Opening Endoscopic (ICD-10-PCS; CPT 43235; principal; 2023-06-15 11:45)
DX: K22.4 Dyskinesia of esophagus (principal); J44.9 Chronic obstructive pulmonary disease, unspecified; I50.9 Heart failure, unspecified; I11.0 Hypertensive heart disease with heart failure; I48.19 Other persistent atrial fibrillation; D69.6 Thrombocytopenia, unspecified; Z87.891 Personal history of nicotine dependence; K74.00 Hepatic fibrosis, unspecified; D50.0 Iron deficiency anemia secondary to blood loss (chronic); I95.2 Hypotension due to drugs; I25.5 Ischemic cardiomyopathy; Z79.01 Long term (current) use of anticoagulants; Z79.899 Other long term (current) drug therapy; Z95.1 Presence of aortocoronary bypass graft; Z95.2 Presence of prosthetic heart valve; E78.00 Pure hypercholesterolemia, unspecified
CPT/HCPCS: 43248; J7120; C1769; J2405

== ENCOUNTER 2023-06-15 17:11 | Inpatient (IN) | payer MEDICARE, SELFPAY ==
[2023-06-15 17:12] VITALS: BP 104/60; PULSE 60; RESP 16; TEMP 36.2; O2SAT 100
--- NOTE | 2023-06-15 17:17 | EKG12_ITS ---
Test Reason : Blood Pressure : / mmHG Vent. Rate : 060 BPM Atrial Rate : 060 BPM P-R Int : 176 ms QRS Dur : 156 ms QT Int : 422 ms P-R-T Axes : 000 265 104 degrees QTc Int : 422 ms AV dual-paced rhythm Biventricular pacemaker detected Abnormal ECG Confirmed by JOSÉ KO, WEI ([id number]), metropolitan editor MIMA VALDEZ ([id number]) on 06/16/2023 10:49:46 AM Referred By: Confirmed By:WEI KUMAR MD
--- NOTE | 2023-06-15 17:27 | RAD_ITS ---
STUDY: X-RAY CHEST REASON FOR EXAM: Male, 83 years old. cough TECHNIQUE: AP portable COMPARISON: May 01, 2023 FINDINGS: The lungs are clear and expanded. There is no demonstrated pleural abnormality. Postop change status post median sternotomy and CABG. Pacer noted on the right with electrodes in satisfactory position Normal size heart. Normal mediastinum and yonas. Normal visualized pulmonary arteries. Mildly calcified aortic arch and descending thoracic aorta. Dorsal spine and shoulders demonstrate mild degenerative change Normal visualized ribs, and clavicles. There is no demonstrated abnormality of the visualized soft tissue structures of the upper abdomen. RAD/Chest 1 View (Portable) IMPRESSION: No acute cardiopulmonary pathology. Electronically Signed: Jordy Sevilla MD at 18:23 EST ,
[2023-06-15] MEDS: 0.9% Normal Saline (1000mL) 1,000 ML 1000 ML IV (17:38)
[2023-06-15] MEDS: Ondansetron 4 MG/2 ML Vial IV ×2 (17:39→23:04)
[2023-06-15] MEDS: fentaNYL 100 MCG/2 ML Ampul 50 MCG IV (17:39)
--- NOTE | 2023-06-15 17:44 | EX.ED.DYSGE1 ---
HPI <JAMES Lopez - Last Filed: 06/15/23 18:41> History of Present Illness Chief Complaint: Sore Throat Narrative Narrative: Patient is a 83-year-old male with history of chronic swallowing issues, low blood pressure, thrombocytopenia, on Coumadin, who presents to the emergency department for ongoing throat pain, difficulty swallowing. Patient was seen by Dr. Muir today, had a scope secondary to not being able to swallow. They did expand his esophagus. Patient went home and is continue to having difficulty swallowing, patient cannot eat or drink. I spoke with Dr. Muir on the phone that believe the patient needs to be admitted to have a Botox injection. Patient is complaining of sore throat, generalized weakness. [facility] <JAMES Lopez - Last Filed: 06/15/23 18:41> [facility] Medical History (Updated 06/15/23 @ 18:41 by JAMES Lopez) Acute respiratory failure with hypoxia Ambulates with cane Anemia Anemia due to chronic blood loss Anticoagulant long-term use Arthritis Asthma Atherosclerotic heart disease of [place] coronary artery without angina pectoris Atrial fibrillation Back pain Back pain due to injury Cardiology follow-up encounter Chest pain CHF (congestive heart failure) Chronic airway obstruction Chronic anticoagulation Chronic cough Chronic pain Chronic pain syndrome Chronic systolic (congestive) heart failure CKD (chronic kidney disease) COPD (chronic obstructive pulmonary disease) COPD (chronic obstructive pulmonary disease) Coronary artery disease Difficulty swallowing Erosion of pacemaker pocket due to and not concurrent with implantation of cardiac pacemaker Essential hypertension Former smoker Gastric reflux GERD (gastroesophageal reflux disease) Heart attack HFrEF (heart failure with reduced ejection fraction) High cholesterol History of echocardiogram History of edema History of GI bleed History of heart attack History of pain when walking History of stress test Hx of fracture of ankle Hx of fracture of ankle Hypertension ICD (implantable cardioverter-defibrillator) in place Injury of back Injury of head and neck Intermittent complete heart block Irregular heartbeat Ischemic cardiomyopathy Kidney disease 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 On home oxygen therapy Osteoporosis Paroxysmal atrial fibrillation Pericardial effusion after operative procedure Perirectal abscess Persistent atrial fibrillation Pure hypercholesterolemia Restless legs Secondary pulmonary arterial hypertension Shortness of breath on exertion Sick sinus syndrome Smoker Spinal stenosis of lumbar region Stage 3a chronic kidney disease (CKD) Stroke Symptomatic bradycardia TIA (transient ischemic attack) Tobacco use disorder Uncontrolled pain Wears dentures Wears glasses Home Medications albuterol sulfate 90 mcg/actuation breath activated powder inhaler 2 puff inhalation Q4H PRN Shortness Of Breath 09/25/15 [History Last Taken 08/23/22] cholecalciferol (vitamin D3) 25 mcg (1,000 unit) tablet 1,000 unit PO DAILY SUPPLEMENT 09/25/15 [History Last Taken 08/24/22] folic acid 1 mg tablet 1 mg PO QHS SUPPLEMENT 06/24/16 [History Last Taken 08/23/22] pantoprazole 40 mg tablet,delayed release 40 mg PO BID ACID REFLUX 01/02/18 [History Last Taken 08/24/22] tiotropium 2.5 mcg-olodaterol 2.5 mcg/actuation mist for inhalation (Stiolto Respimat) 1 puff inhalation BID ASTHMA 06/18/21 [History Last Taken 08/24/22] ipratropium 0.5 mg-albuterol 3 mg (2.5 mg base)/3 mL nebulization soln 3 ml inhalation 4X/DAY SHORTNESS OF BREATH 11/25/21 [History Last Taken 04/06/22] buprenorphine 15 mcg/hour weekly transdermal patch 20 mcg transdermal FULLER PAIN 08/24/22 [History Last Taken 08/15/22] nitroglycerin 0.4 mg sublingual tablet 0.4 mg sublingual Q5M PRN Chest Pain #25 tabs 09/17/22 [Rx Last Taken Unknown] clopidogrel 75 mg tablet 75 mg PO DAILY antiplatelet 03/29/23 [History Last Taken Unknown] rosuvastatin 40 mg tablet (Crestor) 40 mg PO DAILY cholesterol 03/29/23 [History Last Taken Unknown] lactulose 10 gram/15 mL (15 mL) oral solution 20 g (30 mL) PO DAILY #1,440 mL 04/04/23 [Rx Last Taken Unknown] furosemide 20 mg tablet 20 mg PO DAILY dose has been decreased #90 tabs 04/25/23 [Rx Last Taken Unknown] potassium chloride 10 mEq tablet,extended release 10 meq PO DAILY #30 tabs 04/25/23 [Rx Last Taken Unknown] amiodarone 200 mg tablet 200 mg PO DAILY afib #90 tabs 04/28/23 [Rx Last Taken Unknown] empagliflozin 10 mg tablet (Jardiance) 10 mg PO DAILY heart health #90 tabs 04/28/23 [Rx Last Taken Unknown] warfarin 5 mg tablet 5 mg PO SUTUTHSA BLOOD THINNER 05/01/23 [History Last Taken 06/13/23] zolpidem 10 mg tablet 10 mg PO QHS sleep 05/03/23 [History Last Taken Unknown] ferrous sulfate 325 mg (65 mg iron) tablet 325 mg PO DAILY IRON SUPPLEMENT 05/24/23 [History Last Taken Unknown] metoprolol succinate 100 mg tablet,extended release 24 hr 50 mg PO DAILY 06/15/23 [History Last Taken Unknown] warfarin 7.5 mg tablet 7.5 mg PO MOWEFR 06/15/23 [History Last Taken Unknown] Allergy/AdvReac Type Severity Reaction Status Date / Time No Known Allergies Allergy Verified 06/15/23 12:06 Family History Son , age 44 from [place] CAD (coronary artery disease) Myocardial infarction Sudden cardiac Brother CAD (coronary artery disease) Pt states all nine of his siblings have heart problems Sister CAD (coronary artery disease) Patient states all nine of his siblings have heart problems Other History of mechanical aortic valve replacement Surgical History Cardiac pacemaker in situ H/O cardiac catheterization H/O prosthetic aortic valve replacement History of coronary artery stent placement (~06/28/11) History of coronary artery stent placement History of esophagogastroduodenoscopy (EGD) (~10/2021) History of left heart catheterization History of lumbar fusion History of mechanical aortic valve replacement (~03/27/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 Hx of CABG Presence of biventricular implantable cardioverter-defibrillator (ICD) S/P CABG x 1 (~03/27/93) Status post cardiac surgery Social History household members: family Smoking Status: Former smoker alcohol intake: never substance use type: does not use caffeine: No ROS <JAMES Lopez - Last Filed: 06/15/23 18:41> ROS ED ROS Narrative Constitutional: Negative for fever, chills, weight loss. Positive for weakness Eyes: Negative for vision loss, vision change, double vision ENT: Negative for any ear pain, congestion. Positive sore throat Cardiovascular: Negative for any chest pain, tightness, palpitations Respiratory: Negative for any cough, sputum production, hemoptysis, dyspnea, dyspnea on exertion, orthopnea Gastrointestinal: Negative for any abdominal pain, nausea, vomiting, diarrhea, constipation, blood in stool, blood in vomit : Negative for any urinary frequency, dysuria, retention, blood in urine. Positive decreased urinary output Muscle skeletal: Negative for any myalgias, arthralgias, neck pain, back pain Neurological: Negative for any headache, syncope, numbness or tingling, dizziness Skin: Negative for any rashes, lumps, itching, abrasions, lacerations Psychiatric: Negative for any depression, anxiety, stress, suicidal ideation, homicidal ideation Hematologic: Negative for any easy bruising, excessive bruising, easy bleeding Allergies: Negative for any eczema, hives, rash EXAM <JAMES Lopez - Last Filed: 06/15/23 18:41> Physical Exam Narrative Exam Narrative: Vital signs reviewed. HEET: Head normocephalic atraumatic, TMs clear bilaterally. Posterior pharynx is clear, moist mucous membranes. Nares clear bilaterally. Patient is continually spitting up because he cannot swallow his spit. Patient is no obvious respiratory distress. Neck: Supple with no lymphadenopathy or tenderness. No signs of meningismus. Cardiac: Regular rate and rhythm no murmurs gallops or rubs, equal peripheral pulses bilaterally. Mechanical valve present Respiratory: Lungs clear to auscultation bilaterally. No chest tenderness. Abdomen: Soft, nontender, nondistended. No abdominal bruit or pulsatile masses. No hepatosplenomegaly Extremities: No peripheral edema, no signs of gross trauma or deformity. Active full range of motion of all extremities. Neuro: Cranial nerves II through XII intact, no focal neurological deficits. Skin: Clean dry and intact with no rash, purpura, petechiae, vesicles or pustules. Backs/flank: No CVA tenderness, no midline spinal tenderness, no deformity. Psych: Normal mood and affect. No SI, HI or acute psychosis. Const Vital Signs: 06/15/23 17:12 Temperature 97.1 F L Temperature Source Temporal Pulse Rate 60 Respiratory Rate 16 Blood Pressure 104/60 Blood Pressure Mean 74 Pulse Ox 100 Oxygen Delivery Method Room Air <Dr. Mika Webster DO - Last Filed: 06/15/23 18:23> Physical Exam Const Vital Signs: 06/15/23 17:12 Temperature 97.1 F L Temperature Source Temporal Pulse Rate 60 Respiratory Rate 16 Blood Pressure 104/60 Blood Pressure Mean 74 Pulse Ox 100 Oxygen Delivery Method Room Air [facility] <Guillermo Alamo MAULIKC - Last Filed: 06/15/23 18:41> [facility] Lab Data Labs: Laboratory Results - last 24 hr 06/15/23 17:35 WBC 5.1 RBC 3.43 L Hgb 10.0 L Hct 32.8 L MCV 95.6 H MCH 29.2 MCHC 30.5 L RDW Std Deviation 59.8 H RDW Coeff of [place]aly[place] 17.0 H Plt Count 184 MPV 10.4 Immature Gran % (Auto) 0.400 Neut % (Auto) 93.0 H Lymph % (Auto) 5.8 L Major % (Auto) 0.6 Eos % (Auto) 0.0 Baso % (Auto) 0.2 Absolute Neuts (auto) 4.8 Absolute Lymphs (auto) 0.30 L Nucleated RBC % 0 Differential Comment SEE COMMENT Platelet Estimate ADEQUATE RBC Morphology N CHROM Hypochromasia RARE Anisocytosis RARE Macrocytosis RARE Ovalocytes RARE PT 63.4 H INR 7.2 H* Sodium 139 Potassium 3.7 Chloride 105 Carbon Dioxide 27.0 Anion Gap 7 BUN 24 H Creatinine 2.30 H Estim Creat Clear Calc 22.12 Est GFR (MDRD) Af Amer 35 L Est GFR (MDRD) Non-Af 29 L BUN/Creatinine Ratio 10.4 Glucose 152 H Calcium 9.2 Total Bilirubin 0.80 AST 29 ALT 36 Alkaline Phosphatase 116 Total Protein 7.0 Albumin 3.6 Globulin 3.4 Albumin/Globulin Ratio 1.1 Lipase 12 L Radiography Diagnostic Testing: Clinical Impression(s) from Imaging Studies Chest X-Ray 06/15/23 17:27 IMPRESSION: No acute cardiopulmonary pathology. Electronically Signed: Jordy Sevilla MD at 18:23 EST , EKG Paced rhythm: Attestation: I personally reviewed and interpreted this EKG as follows: Comments: Paced rhythm, rate of 60 bpm, AR 160 ms, QRS duration 156 ms, no acute ST elevation, no acute infarct noted Treatment and Re-Evaluation :: Patient appears to be in mild distress secondary to constant hiccuping, as well as spitting. Patient is having difficulty swallowing. Differential diagnosis includes obstruction, pharyngitis, achalasia. I did speak with Dr. Muir regarding this patient, he would like admitted for EGD tomorrow. Patient received basic laboratory values including PT/INR secondary to patient being on Coumadin. Per the daughter, his last INR was 6.5. He has held his Coumadin for the last 2 days. Patient received basic labs IV fluids Zofran pain medicine. All radiologic examinations were read, reviewed by the emergency department attending. From these reads, a plan of care will be put in place. Patient reevaluation was in no distress. Patient's chest x-ray shows no acute cardiopulmonary disease. Patient's EKG was unremarkable no evidence of ACS or PR. Patient CBC shows a chronic anemia, patient's PT/INR shows an PT of 63.4 as well as an INR of 7.2, patient has held his Coumadin for the last 2 days. Patient's chemistries show acute kidney injury with a creatinine of 2.30, with a glucose of 152, BUN of 24. This is likely secondary not eating and drinking normally. At this time, patient be admitted to the hospital. Spoke with the hospitalist, all questions were answered, patient stable for admission patient was given 1 L of normal saline. <Dr. Mika Webster, DO - Last Filed: 06/15/23 18:23> [facility] Narrative Medical decision making narrative: Patient I have personally performed a face to face assessment of the patient and have reviewed the SANTO Note. I performed a substantive portion of the visit including all aspects of the following. My mederos findings include: History is [patient presents to the emergency department with complaint of difficulty swallowing. Patient states that he had an upper scope with Dr. Muir today. Patient has history of achalasia. Unable to swallow Jell-O. Patient was instructed by Dr. Muir to come to the emergency department to get fluids and get admitted for possible Botox intervention tomorrow. Patient denies abdominal pain.] Exam is [HEENT-PERRLA, EOMI. Cranial nerves II through XII grossly intact. TMs clear. Mucous membranes moist. No adenopathy. Cardiovascular-regular rate and rhythm without murmur or ectopy Lungs-clear to auscultation, chest wall stable without crepitus or subcu emphysema Abdomen-normoactive bowel sounds, soft, nontender, no rebound or rigidity, no peritoneal signs. Extremities-intact ?4, normal range of motion, normal pulses, atraumatic] Medical Decison Making [patient with difficulty swallowing with history of achalasia. Evidence of SALVADOR on lab work. 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 for further definitive care.] Other additions or changes: [None] Lab Data Labs: Laboratory Results - last 24 hr 06/15/23 17:35 WBC 5.1 RBC 3.43 L Hgb 10.0 L Hct 32.8 L MCV 95.6 H MCH 29.2 MCHC 30.5 L RDW Std Deviation 59.8 H RDW Coeff of [place]aly[place] 17.0 H Plt Count 184 MPV 10.4 Immature Gran % (Auto) 0.400 Neut % (Auto) 93.0 H Lymph % (Auto) 5.8 L Major % (Auto) 0.6 Eos % (Auto) 0.0 Baso % (Auto) 0.2 Absolute Neuts (auto) 4.8 Absolute Lymphs (auto) 0.30 L Nucleated RBC % 0 Differential Comment SEE COMMENT Platelet Estimate ADEQUATE RBC Morphology N CHROM Hypochromasia RARE Anisocytosis RARE Macrocytosis RARE Ovalocytes RARE PT 63.4 H INR 7.2 H* Sodium 139 Potassium 3.7 Chloride 105 Carbon Dioxide 27.0 Anion Gap 7 BUN 24 H Creatinine 2.30 H Estim Creat Clear Calc 22.12 Est GFR (MDRD) Af Amer 35 L Est GFR (MDRD) Non-Af 29 L BUN/Creatinine Ratio 10.4 Glucose 152 H Calcium 9.2 Total Bilirubin 0.80 AST 29 ALT 36 Alkaline Phosphatase 116 Total Protein 7.0 Albumin 3.6 Globulin 3.4 Albumin/Globulin Ratio 1.1 Lipase 12 L Radiography Diagnostic Testing: Clinical Impression(s) from Imaging Studies Chest X-Ray 06/15/23 17:27 IMPRESSION: No acute cardiopulmonary pathology. Electronically Signed: Jordy Sevilla MD at 18:23 EST , 1 view chest x-ray obtained interpreted by myself as no infiltrate or pneumothorax or acute process. No evidence for mediastinum.. Official report from radiology pending EKG Initial EKG: Attestation: I personally reviewed and interpreted this EKG as follows: Comments: AV dual paced rhythm rate of 60 bpm Discharge Plan Dx/Rx/DC Orders Clinical Impression: SALVADOR (acute kidney injury), Medication induced coagulopathy, Dysphagia, Thrombocytopenia Disposition Disposition: Acute Care Hospital [facility]
[2023-06-15 17:50] VITALS: BMI 21.0
[2023-06-15 17:58] LABS: Absolute Neutrophil Count 4.8 X10^3/uL (2.0-7.7); Basophil# 0.01 X10^3/uL; Basophil% 0.2 % (0-1); Hematocrit 32.8 % (40-54); Lymphocyte % 5.8 % (19-41); Mean Corp Hgb Conc 30.5 g/dL (32-36); Mean Corpuscular Hgb 29.2 pg (27.0-32.0); Mean Corpuscular Volume 95.6 fL (80-94); Mean Platelet Vol. 10.4 fl (6.2-12.0); Monocyte# 0.03 X10^3/uL; Monocyte% 0.6 % (0-10); NRBC Flagged by Analyzer 0 % (0-5); Neutrophil # 4.78 X10^3/uL (2.7-7.7); POSITIVE DIFFERENTIAL YES; Platelet Count 184 K/mm3 (150-450); RBC Distribution Width SD 59.8 fl (35.1-43.9); Red Blood Count 3.43 M/mm3 (4.6-6.2); White Blood Count 5.1 K/mm3 (4.4-11.0)
[2023-06-15 18:11] LABS: Differential Indicated SCAN CRITERIA MET; Prothrombin Time (Protime)PT. 63.4 SECONDS (11.7-14.9)
[2023-06-15 18:13] LABS: ALB/GLOB Ratio 1.1 RATIO (0.9-2.4); AST(SGOT) 29 U/L (15-37); Alanine Aminotransfer ALT/SGPT 36 U/L (16-61); Albumin, Serum 3.6 g/dL (3.2-5.0); Alkaline Phosphatase 116 U/L (45-117); Anion Gap 7 (5-15); BUN 24 mg/dL (7-18); BUN/Creat Ratio 10.4 RATIO (10-20); Calcium,Total 9.2 mg/dL (8.5-10.1); Chloride 105 mmol/L (98-107); EST Glomerular Filtration Rate 29 mL/min (>60); Est Glom Filt Rate - Afr Amer 35 mL/min (>60); Estimated Creatinine Clearance 22.12 ml/min; Globulin 3.4 g/dL (2.2-4.2); Glucose 152 mg/dL (74-106); Lipase 12 U/L (13-75); Potassium 3.7 mmol/L (3.5-5.1); Sodium Level 139 mmol/L (136-145)
[2023-06-15 18:19] LABS: International Normalized Ratio 7.2
[2023-06-15 18:23] LABS: Anisocytosis RARE; Platelet Estimate ADEQUATE (ADEQ); Red Cell Morphology N CHROM NORMAL (NORM C&C)
[2023-06-15 18:24] LABS: Hypochromasia RARE; Macrocytosis RARE; Ovalocyte RARE
[2023-06-15 18:30] LABS: Mucous, Urine 0 SEEN /hpf (<or=2+); White Blood Cells 0 SEEN /hpf (0-5)
--- NOTE | 2023-06-15 18:33 | PCM.HP.STD ---
HPI - General General Date of Admission: 06/15/23 Date of Service: 06/15/23 Chief Complaint: Worsening dysphagia HPI Narrative REBECCA ARRIOLA, is a 83 M who presented to [facility] ED on 06/15/2023 for worsening dysphagia. Patient seen at bedside in the ED, daughter present. Patient has a very complex past medical history, further details as noted below. Patient saw Dr. Muir with GI today, had an EGD done for dysphagia and was found to have concern for possible esophageal spasms; dilation was done at that time and patient was discharged home from endoscopy. However, patient and daughter state that he has been unable to swallow much of anything since returning home, and she brought him back to the ED only a few hours after being home. Patient was sitting up in bed on my interview and conversing normally. He did appear to be in mild discomfort during my interview due to his sore throat and difficulty swallowing. Patient states he tried to drink some water at home and it felt like it got stuck in his lower esophagus. Also try to eat Jell-O, which also got stuck in the lower esophagus and came right back up. Patient feels fairly weak and fatigued at this time. He denies any bowel movements over the past few days. No BRBPR or dark tarry stools recently. Patient denies any fevers or chills, chest pain, shortness of breath. Patient lives at home on his own, has continued to be quite functional at home despite his significant medical comorbidities as noted below. Patient recently had a prolonged hospitalization at [facility] from 03/02 to 03/25/23 with multiple significant medical complications. See cardiology office visit note on 04/07/2023 for complete details. In short, patient presented to [facility] on 03/02 for concern for pacemaker infection. Pacemaker was extracted on 03/07, cultures grew light Staph epidermidis and he was treated with antibiotics. However, after his pacemaker extraction the patient became hypotensive and bradycardic. Echo showed severely reduced EF of 20 to 30%. Had left heart cath done on 03/11 with 2 drug-eluting stents placed in the mid LAD. Patient then was cleared to have device replacement on the contralateral side of his chest, and underwent DIRECTOR APPAREL-D implantation on 03/22. Ultimately discharged home on 03/25 off of most home medications due to his fairly persistent hypotension. Patient also had a recent hospitalization at [facility] from 05/01-05/06/23. He presented to the ED on 05/01 with worsening shortness of breath and melena. Was found to have acute on chronic anemia in the setting of a supratherapeutic INR. Dr. Muir followed, EGD showed oozing gastric ulcers that were injected and treated with heater probe. Hemoglobin stabilized around 7-8 prior to discharge. Patient states has been taking his PPI twice daily and other home medications as prescribed since that discharge. [facility] Medical History (Updated 06/15/23 @ 18:41 by Guillermo Alamo NP-Arlene) Acute respiratory failure with hypoxia Ambulates with cane Anemia Anemia due to chronic blood loss Anticoagulant long-term use Arthritis Asthma Atherosclerotic heart disease of [place] coronary artery without angina pectoris Atrial fibrillation Back pain Back pain due to injury Cardiology follow-up encounter Chest pain CHF (congestive heart failure) Chronic airway obstruction Chronic anticoagulation Chronic cough Chronic pain Chronic pain syndrome Chronic systolic (congestive) heart failure CKD (chronic kidney disease) COPD (chronic obstructive pulmonary disease) COPD (chronic obstructive pulmonary disease) Coronary artery disease Difficulty swallowing Erosion of pacemaker pocket due to and not concurrent with implantation of cardiac pacemaker Essential hypertension Former smoker Gastric reflux GERD (gastroesophageal reflux disease) Heart attack HFrEF (heart failure with reduced ejection fraction) High cholesterol History of echocardiogram History of edema History of GI bleed History of heart attack History of pain when walking History of stress test Hx of fracture of ankle Hx of fracture of ankle Hypertension ICD (implantable cardioverter-defibrillator) in place Injury of back Injury of head and neck Intermittent complete heart block Irregular heartbeat Ischemic cardiomyopathy Kidney disease detention current use of anticoagulant 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 On home oxygen therapy Osteoporosis Paroxysmal atrial fibrillation Pericardial effusion after operative procedure Perirectal abscess Persistent atrial fibrillation Pure hypercholesterolemia Restless legs Secondary pulmonary arterial hypertension Shortness of breath on exertion Sick sinus syndrome Smoker Spinal stenosis of lumbar region Stage 3a chronic kidney disease (CKD) Stroke Symptomatic bradycardia TIA (transient ischemic attack) Tobacco use disorder Uncontrolled pain Wears dentures Wears glasses Home Medications albuterol sulfate 90 mcg/actuation breath activated powder inhaler 2 puff inhalation Q4H PRN Shortness Of Breath 09/25/15 [History Last Taken 08/23/22] cholecalciferol (vitamin D3) 25 mcg (1,000 unit) tablet 1,000 unit PO DAILY SUPPLEMENT 09/25/15 [History Last Taken 08/24/22] folic acid 1 mg tablet 1 mg PO QHS SUPPLEMENT 06/24/16 [History Last Taken 08/23/22] pantoprazole 40 mg tablet,delayed release 40 mg PO BID ACID REFLUX 01/02/18 [History Last Taken 08/24/22] tiotropium 2.5 mcg-olodaterol 2.5 mcg/actuation mist for inhalation (Stiolto Respimat) 1 puff inhalation BID ASTHMA 06/18/21 [History Last Taken 08/24/22] ipratropium 0.5 mg-albuterol 3 mg (2.5 mg base)/3 mL nebulization soln 3 ml inhalation 4X/DAY SHORTNESS OF BREATH 11/25/21 [History Last Taken 04/06/22] buprenorphine 15 mcg/hour weekly transdermal patch 20 mcg transdermal FULLER PAIN 08/24/22 [History Last Taken 08/15/22] nitroglycerin 0.4 mg sublingual tablet 0.4 mg sublingual Q5M PRN Chest Pain #25 tabs 09/17/22 [Rx Last Taken Unknown] clopidogrel 75 mg tablet 75 mg PO DAILY antiplatelet 03/29/23 [History Last Taken Unknown] rosuvastatin 40 mg tablet (Crestor) 40 mg PO DAILY cholesterol 03/29/23 [History Last Taken Unknown] lactulose 10 gram/15 mL (15 mL) oral solution 20 g (30 mL) PO DAILY #1,440 mL 04/04/23 [Rx Last Taken Unknown] furosemide 20 mg tablet 20 mg PO DAILY dose has been decreased #90 tabs 04/25/23 [Rx Last Taken Unknown] potassium chloride 10 mEq tablet,extended release 10 meq PO DAILY #30 tabs 04/25/23 [Rx Last Taken Unknown] amiodarone 200 mg tablet 200 mg PO DAILY afib #90 tabs 04/28/23 [Rx Last Taken Unknown] empagliflozin 10 mg tablet (Jardiance) 10 mg PO DAILY heart health #90 tabs 04/28/23 [Rx Last Taken Unknown] warfarin 5 mg tablet 5 mg PO SUTUTHSA BLOOD THINNER 05/01/23 [History Last Taken 06/13/23] zolpidem 10 mg tablet 10 mg PO QHS sleep 05/03/23 [History Last Taken Unknown] ferrous sulfate 325 mg (65 mg iron) tablet 325 mg PO DAILY IRON SUPPLEMENT 05/24/23 [History Last Taken Unknown] metoprolol succinate 100 mg tablet,extended release 24 hr 50 mg PO DAILY 06/15/23 [History Last Taken Unknown] warfarin 7.5 mg tablet 7.5 mg PO MOWEFR 06/15/23 [History Last Taken Unknown] Allergy/AdvReac Type Severity Reaction Status Date / Time No Known Allergies Allergy Verified 06/15/23 12:06 Family History Son , age 44 from [place] CAD (coronary artery disease) Myocardial infarction Sudden cardiac Brother CAD (coronary artery disease) Pt states all nine of his siblings have heart problems Sister CAD (coronary artery disease) Patient states all nine of his siblings have heart problems Other History of mechanical aortic valve replacement Surgical History Cardiac pacemaker in situ H/O cardiac catheterization H/O prosthetic aortic valve replacement History of coronary artery stent placement (~06/28/11) History of coronary artery stent placement History of esophagogastroduodenoscopy (EGD) (~10/2021) History of left heart catheterization History of lumbar fusion History of mechanical aortic valve replacement (~03/27/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 Hx of CABG Presence of biventricular implantable cardioverter-defibrillator (ICD) S/P CABG x 1 (~03/27/93) Status post cardiac surgery Social History household members: family Smoking Status: Current every day smoker tobacco type: cigarettes alcohol intake: never substance use type: does not use caffeine: No ROS Constitutional Constitutional: Reports fatigue; Denies chills, fever(s) or weakness Eyes Eyes: Denies change in vision ENT HEENT: Reports dysphagia and sore throat Cardiovascular Cardiovascular: Denies chest pain Respiratory/Chest Respiratory/Chest: Denies cough Gastrointestinal Gastrointestinal: Denies abdominal pain, diarrhea, hematochezia or melena Genitourinary Genitourinary: Denies dysuria Neurologic Neurologic: Denies confusion, dizziness, focal weakness, headache(s) or numbness Vital Signs Vital Signs Vital Signs: 06/15/23 17:12 Temperature 97.1 F L Temperature Source Temporal Pulse Rate 60 Respiratory Rate 16 Blood Pressure 104/60 Blood Pressure Mean 74 Pulse Ox 100 Oxygen Delivery Method Room Air Weight Weight: 66.6 kg Body Mass Index (BMI) 21.0 Physical Exam Const alert and oriented x3 Constitutional Narrative: Elderly male, chronically ill-appearing, thin, sitting up in bed, conversing normally, mild distress due to sore throat and difficulty swallowing noted. Fatigued appearing. General Appearance: cooperative HEENT normocephalic, head/scalp atraumatic, hearing grossly normal bilaterally, nasal mucous membranes and turbinates normal and moist oral mucous membranes Eyes PERRL, EOMs intact bilaterally and conjunctivae normal Neck full ROM, no lymphadenopathy and supple Lymph Lymphatic: no lymphadenopathy noted Chest inspection of chest normal Resp normal respiratory effort, normal air movement, no use of accessory muscles and clear to auscultation bilaterally Cardio regular rate, regular rhythm, no murmurs and peripheral pulses 2+ throughout GI normal to inspection, nondistended, normoactive bowel sounds, soft to palpation, non-tender and non-distended Back/Spine normal ROM Extremity normal to inspection, full ROM and no pedal edema Skin no rashes or lesions noted Psych mental status grossly normal Results Lab / Micro Data 06/15/23 17:35 06/15/23 17:35 Labs: Laboratory Results - last 24 hr 06/15/23 17:35: WBC 5.1, RBC 3.43 L, Hgb 10.0 L, Hct 32.8 L, MCV 95.6 H, MCH 29.2, MCHC 30.5 L, RDW Std Deviation 59.8 H, RDW Coeff of [place] 17.0 H, Plt Count 184, MPV 10.4, Immature Gran % (Auto) 0.400, Neut % (Auto) 93.0 H, Lymph % (Auto) 5.8 L, [place] % (Auto) 0.6, Eos % (Auto) 0.0, Baso % (Auto) 0.2, Absolute Neuts (auto) 4.8, Absolute Lymphs (auto) 0.30 L, Nucleated RBC % 0, Differential Comment SEE COMMENT, Platelet Estimate ADEQUATE, RBC Morphology N CHROM, Hypochromasia RARE, Anisocytosis RARE, Macrocytosis RARE, Ovalocytes RARE, PT 63.4 H, INR 7.2 H*, Sodium 139, Potassium 3.7, Chloride 105, Carbon Dioxide 27.0, Anion Gap 7, BUN 24 H, Creatinine 2.30 H, Estim Creat Clear Calc 22.12, Est GFR (MDRD) Af Amer 35 L, Est GFR (MDRD) Non-Af 29 L, BUN/Creatinine Ratio 10.4, Glucose 152 H, Calcium 9.2, Total Bilirubin 0.80, AST 29, ALT 36, Alkaline Phosphatase 116, Total Protein 7.0, Albumin 3.6, Globulin 3.4, Albumin/Globulin Ratio 1.1, Lipase 12 L Imagaing Radiology Impression Chest X-Ray 06/15/23 17:27 IMPRESSION: No acute cardiopulmonary pathology. Electronically Signed: Jordy Sevilla MD at 18:23 EST , Assessment & Plan Assessment/Plan (1) Dysphagia: PLAN: Plan Patient is an 83-year-old male who presented to [facility] ED on 06/15/2023 with worsening dysphagia. 1. Dysphagia, concern for esophageal spasms Complex GI history, follows with Dr. Muir, see his H&P note from 06/15 for further details. Patient had EGD done on 06/15 for dysphagia, dilation done during EGD; Dr. Muir noted abnormal esophageal motility suspicious for esophageal spasm. Patient discharged home from endoscopy but had severe dysphagia with any food or drink at home, came back to the ED on afternoon of 06/15. ? Admit under inpatient status to [facility]. GI consulted. Per Dr. Muir, plan is for upper endoscopy tomorrow with likely Botox injection for suspected esophageal spasms. N.p.o. for now. 2. Paroxysmal atrial fibrillation on Coumadin, supratherapeutic INR Follows with cardiology, last office visit on 04/07/2023. Notably had prolonged hospitalization in February with several complications as noted in HPI. Noted at cardiology office visit that patient has history of paroxysmal A-fib, recent pacemaker interrogation showed atrial tachycardia. Was continued on Toprol 100 mg twice daily, amiodarone 200 mg daily, warfarin with goal INR 2.5-3.5. INR was noted to be supratherapeutic on recent admission in April, had significant GI bleed from multiple oozing gastric ulcers at that time; INR improved to normal range with Kcentra and vitamin K. Now again with supratherapeutic INR of 6.3 on 06/14, repeat INR 7.2 on 06/15. Patient has held his home Coumadin for the last 2 days, and he and his daughter state that his dose has been decreased multiple times recently. Have concern that patient's possible liver fibrosis as noted below may be causing poor clearance of Coumadin, leading to an elevated INR. No active signs of bleeding noted. ? Given 1 dose of p.o. vitamin K 5 mg in the ED. Repeat INR tomorrow morning. Continue to hold on any anticoagulation. Monitor telemetry. Continue home amiodarone. Notably patient's Toprol was decreased to 50 mg daily recently due to hypotension, continue Toprol at lower dose. Monitor closely for signs of bleeding. 3. SALVADOR on CKD stage 3 Creatinine 2.30 on admit, BUN 24. Baseline creatinine 1.4-1.7. Suspect mild prerenal SALVADOR in setting of poor p.o. intake recently. Notably patient's CBC values appeared hemoconcentrated, would be consistent with dehydration and prerenal SALVADOR. ? Follow-up a.m. BMP. Monitor urine output. Can consider IV fluids as needed but will need to be very careful with fluid administration given patient's severe HFrEF as noted below. 4. Chronic iron deficiency anemia, recent GI bleed Hemoglobin 10.0 on admit, MCV 95. Hemoglobin on recent admission ranged between 7 and 9. Had recent admission for significant upper GI bleed as noted in HPI. No BRBPR or dark stools noted per patient and daughter on admission. ? Follow-up a.m. CBC. 5. 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 Echo from 02/2023 showed an EF of 20 to 30%. Had left heart cath done on 03/11/2023 with successful intervention of the mid LAD with 2 drug-eluting stents. S/p DIRECTOR APPAREL-D implantation on contralateral side on 03/22/2023. Had significant hypotension and bradycardia during that admission, patient's losartan, Lasix and Aldactone were held on that discharge. Since that cardiology visit, patient's dose of Toprol has been decreased as noted above, appears he has been taking his losartan, Lasix, Aldactone as he was previously. ? Will hold home Plavix for tomorrow morning given supratherapeutic INR and bleeding risk with GI intervention, restart as soon as able. Continue home Toprol at reduced dose. Hold home losartan, Lasix, Aldactone, Jardiance for now given SALVADOR as noted above, restart as needed. Continue home atorvastatin. 6. Concern for liver fibrosis Follows with Dr. Muir, see his H&P on 06/15 for further details. In short, patient has conflicting results that could be indicative of possible liver fibrosis. Per Dr. Muir, patient ideally would need liver biopsy for ultimate determination but given he is on 2 blood thinners and has poor functional status, liver biopsy is contraindicated at this point. ? Defer to GI for further management. Chronic medical conditions: ? History of aortic stenosis s/p artificial aortic valve replacement: Anticoagulation management as noted above. ? Nicotine dependence: NRT as needed. ? Chronic pain: Continue home buprenorphine patch. DVT prophylaxis: SCDs CODE STATUS: DNR CCA, DO NOT INTUBATE Expected disposition: Home, TBD Total clinical time spent by myself addressing the patient's medical issues, reviewing all the data, and collaborating with patient's care team: 75 minutes. Charges/Coding Visit Charges Inpatient E&M: 12069 Init Hosp L3
[2023-06-15 18:36] LABS: Color, Urine Yellow (Yellow); Glucose, Dipstick 1000 mg/dl (Normal); Ketone-Dipstick Negative (Negative); Leukocyte Esterase-Dipstick Negative /ul (Negative); Nitrite-Dipstick Negative (Negative); Occult Blood-Urine 150 /ul (Negative); Protein-Dipstick 100 mg/dl (Negative); Specific Gravity, Urine 1.015 (1.002-1.030); Urine Bilirubin Dipstick Negative (Negative); Urine Clarity Clear (Clear); Urine Urobilinogen Normal (Normal)
[2023-06-15 18:50] LABS: Bacteria 1+ /hpf (None Seen); Squamous Epithelial Cells - UA 0-5 SEEN /hpf (0-5)
[2023-06-15 18:52] LABS: Fine Granular Cast- Urine 0-5 SEEN /lpf (0-5); Red Blood Cells-Urine 5-10 SEEN /hpf (0-5)
--- NOTE | 2023-06-15 20:03 | ED.RN ---
PT STATES UNABLE TO SWALLOW ANYTHING, INCLUDING SALIVA. PO MED NOT GIVEN.
[2023-06-15 20:09] VITALS: BP 92/52; PULSE 60; RESP 14; O2SAT 97
[2023-06-15 20:27] VITALS: BMI 19.3
[2023-06-15 20:57] VITALS: BP 106/56; PULSE 60; RESP 18; TEMP 36.7; O2SAT 99
[2023-06-15 22:50] VITALS: PULSE 60; RESP 18; O2SAT 97
[2023-06-15] MEDS: Zolpidem Tartrate 5 MG Tablet 10 MG PO (22:52)
[2023-06-15] MEDS: Pantoprazole Sodium 40 MG Tablet PO (22:52)
[2023-06-15] MEDS: Folic Acid 1 MG Tablet PO (22:52)
[2023-06-15] MEDS: BENZOCAINE/MENTHOL 1 LOZENGE MUCOUS MEM (22:52)
--- NOTE | 2023-06-15 22:55 | NURSING ---
Patient was able to get a few medications down with sips before becoming nauseated and spitting up phlem. The remainder of medications held at this time.
--- NOTE | 2023-06-15 23:00 | EX.PCM.CON.G ---
HPI Consult Data Date of Consult: 06/15/23 HPI Narrative Reason for Consultation: Dysphagia HPI Narrative: REBECCA ARRIOLA, is a 83 M who presents for the evaluation of dysphagia. Patient has a very complex past medical history, further details as noted below. Patient saw me today for trouble swallowing after swallowing a video capsule endoscopy pill. Previously he, had an EGD done for dysphagia and was found to have concern for possible esophageal spasms; dilation was done at that time and patient was discharged home from endoscopy. However, patient and daughter state that he has been unable to swallow much of anything since returning home, and she brought him back to the ED only a few hours after being home. Patient states he tried to drink some water at home and it felt like it got stuck in his lower esophagus. Also try to eat Jell-O, which also got stuck in the lower esophagus and came right back up. Patient feels fairly weak and fatigued at this time. He denies any bowel movements over the past few days. No BRBPR or dark tarry stools recently. Patient denies any fevers or chills, chest pain, shortness of breath. Patient lives at home on his own, has continued to be quite functional at home despite his significant medical comorbidities as noted below. Patient recently had a prolonged hospitalization at [facility] from 03/02 to 03/25/23 with multiple significant medical complications. See cardiology office visit note on 04/07/2023 for complete details. In short, patient presented to [facility] on 03/02 for concern for pacemaker infection. Pacemaker was extracted on 03/07, cultures grew light Staph epidermidis and he was treated with antibiotics. However, after his pacemaker extraction the patient became hypotensive and bradycardic. Echo showed severely reduced EF of 20 to 30%. Had left heart cath done on 03/11 with 2 drug-eluting stents placed in the mid LAD. Patient then was cleared to have device replacement on the contralateral side of his chest, and underwent [employer]ICAL MASSAGE THERAPIST-D implantation on 03/22. Ultimately discharged home on 03/25 off of most home medications due to his fairly persistent hypotension. Patient also had a recent hospitalization at [facility] from 05/01-05/06/23. He presented to the ED on 05/01 with worsening shortness of breath and melena. Was found to have acute on chronic anemia in the setting of a supratherapeutic INR. Patient states has been taking his PPI twice daily and other home medications as prescribed since that discharge. [facility] Medical History (Updated 06/16/23 @ 10:[address] Diehl Friend, DO) Acute respiratory failure with hypoxia Ambulates with cane Anemia Anemia due to chronic blood loss Anticoagulant long-term use Arthritis Asthma Atherosclerotic heart disease of hopi coronary artery without angina pectoris Atrial fibrillation Back pain Back pain due to injury Cardiology follow-up encounter Chest pain CHF (congestive heart failure) Chronic airway obstruction Chronic anticoagulation Chronic cough Chronic pain Chronic pain syndrome Chronic systolic (congestive) heart failure CKD (chronic kidney disease) COPD (chronic obstructive pulmonary disease) COPD (chronic obstructive pulmonary disease) Coronary artery disease Difficulty swallowing Erosion of pacemaker pocket due to and not concurrent with implantation of cardiac pacemaker Essential hypertension Former smoker Gastric reflux GERD (gastroesophageal reflux disease) Heart attack HFrEF (heart failure with reduced ejection fraction) High cholesterol History of echocardiogram History of edema History of GI bleed History of heart attack History of pain when walking History of stress test Hx of fracture of ankle Hx of fracture of ankle Hypertension ICD (implantable cardioverter-defibrillator) in place Injury of back Injury of head and neck Intermittent complete heart block Irregular heartbeat Ischemic cardiomyopathy Kidney disease longterm current use of anticoagulant 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 On home oxygen therapy Osteoporosis Paroxysmal atrial fibrillation Pericardial effusion after operative procedure Perirectal abscess Persistent atrial fibrillation Pure hypercholesterolemia Restless legs Secondary pulmonary arterial hypertension Shortness of breath on exertion Sick sinus syndrome Smoker Spinal stenosis of lumbar region Stage 3a chronic kidney disease (CKD) Stroke Symptomatic bradycardia TIA (transient ischemic attack) Tobacco use disorder Uncontrolled pain Wears dentures Wears glasses Home Medications albuterol sulfate 90 mcg/actuation breath activated powder inhaler 2 puff inhalation Q4H PRN Shortness Of Breath 09/25/15 [History Last Taken 08/23/22] cholecalciferol (vitamin D3) 25 mcg (1,000 unit) tablet 1,000 unit PO DAILY SUPPLEMENT 09/25/15 [History Last Taken 08/24/22] folic acid 1 mg tablet 1 mg PO QHS SUPPLEMENT 06/24/16 [History Last Taken 08/23/22] pantoprazole 40 mg tablet,delayed release 40 mg PO BID ACID REFLUX 01/02/18 [History Last Taken 08/24/22] tiotropium 2.5 mcg-olodaterol 2.5 mcg/actuation mist for inhalation (Stiolto Respimat) 1 puff inhalation BID ASTHMA 06/18/21 [History Last Taken 08/24/22] ipratropium 0.5 mg-albuterol 3 mg (2.5 mg base)/3 mL nebulization soln 3 ml inhalation 4X/DAY SHORTNESS OF BREATH 11/25/21 [History Last Taken 04/06/22] buprenorphine 15 mcg/hour weekly transdermal patch 20 mcg transdermal FULLER PAIN 08/24/22 [History Last Taken 08/15/22] nitroglycerin 0.4 mg sublingual tablet 0.4 mg sublingual Q5M PRN Chest Pain #25 tabs 09/17/22 [Rx Last Taken Unknown] clopidogrel 75 mg tablet 75 mg PO DAILY antiplatelet 03/29/23 [History Last Taken Unknown] rosuvastatin 40 mg tablet (Crestor) 40 mg PO DAILY cholesterol 03/29/23 [History Last Taken Unknown] lactulose 10 gram/15 mL (15 mL) oral solution 20 g (30 mL) PO DAILY #1,440 mL 04/04/23 [Rx Last Taken Unknown] furosemide 20 mg tablet 20 mg PO DAILY dose has been decreased #90 tabs 04/25/23 [Rx Last Taken Unknown] potassium chloride 10 mEq tablet,extended release 10 meq PO DAILY #30 tabs 04/25/23 [Rx Last Taken Unknown] amiodarone 200 mg tablet 200 mg PO DAILY afib #90 tabs 04/28/23 [Rx Last Taken Unknown] empagliflozin 10 mg tablet (Jardiance) 10 mg PO DAILY heart health #90 tabs 04/28/23 [Rx Last Taken Unknown] warfarin 5 mg tablet 5 mg PO SUTUTHSA BLOOD THINNER 05/01/23 [History Last Taken 06/13/23] zolpidem 10 mg tablet 10 mg PO QHS sleep 05/03/23 [History Last Taken Unknown] ferrous sulfate 325 mg (65 mg iron) tablet 325 mg PO DAILY IRON SUPPLEMENT 05/24/23 [History Last Taken Unknown] metoprolol succinate 100 mg tablet,extended release 24 hr 50 mg PO DAILY 06/15/23 [History Last Taken Unknown] warfarin 7.5 mg tablet 7.5 mg PO MOWEFR 06/15/23 [History Last Taken Unknown] Allergy/AdvReac Type Severity Reaction Status Date / Time No Known Allergies Allergy Verified 06/15/23 12:06 Family History Son , age 44 from [place] CAD (coronary artery disease) Myocardial infarction Sudden cardiac Brother CAD (coronary artery disease) Pt states all nine of his siblings have heart problems Sister CAD (coronary artery disease) Patient states all nine of his siblings have heart problems Other History of mechanical aortic valve replacement Surgical History Cardiac pacemaker in situ H/O cardiac catheterization H/O prosthetic aortic valve replacement History of coronary artery stent placement (~06/28/11) History of coronary artery stent placement History of esophagogastroduodenoscopy (EGD) (~10/2021) History of left heart catheterization History of lumbar fusion History of mechanical aortic valve replacement (~03/27/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 Hx of CABG Presence of biventricular implantable cardioverter-defibrillator (ICD) S/P CABG x 1 (~03/27/93) Status post cardiac surgery Social History household members: family Smoking Status: Current every day smoker tobacco type: cigarettes alcohol intake: never substance use type: does not use caffeine: No ROS Constitutional Constitutional: Reports fatigue; Denies chills, fever(s) or weakness Eyes Eyes: Denies change in vision ENT HEENT: Reports dysphagia and sore throat Cardiovascular Cardiovascular: Denies chest pain Respiratory/Chest Respiratory/Chest: Denies cough Gastrointestinal Gastrointestinal: Denies abdominal pain, diarrhea, hematochezia or melena Genitourinary Genitourinary: Denies dysuria Neurologic Neurologic: Denies confusion, dizziness, focal weakness, headache(s) or numbness Physical Exam Narrative General: Alert, oriented, no apparent distress HEENT: Atraumatic, normocephalic Eyes: Anicteric, normal conjunctiva, extraocular movements grossly intact Neck: Supple Respiratory: Clear to auscultation bilaterally, normal respiratory effort Cardiovascular: Regular rate GI: Soft, nontender, nondistended Extremities: No edema Musculoskeletal: Moving all extremities Neuro: No overt focal neurological deficits Skin: No rashes appreciated Psych: Cooperative Medical Records Data Medical Nutrition Assessment Dietitian: Malnutrition Criteria Met Start: 06/16/23 10:39 Freq: Status: Active Protocol: Document 06/16/23 10:39 AG (Rec: 06/16/23 10:39 AG Desktop) Nutrition Malnutrition Evidence of Malnutrition Exists Yes Malnutrition (severe): Chronic Evidenced By Suboptimal Energy Intake ( Severe),Weight Loss (Severe) Clinical Problem Chronic Disease or Condition Related Malnutrition Etiology severe, chronic malnutrition related to inadequate energy intake, dysphagia Signs/Symptoms as evidenced by unintentional wt loss of 14.1#/9% wt loss < 3 months, estimated PO intake meeting < 75% of estimated energy needs > 3 months Status Active Problem Recommendation Dietitian Recommendations/Changes recommend advance diet as tolerated to regular- texture/ consistency per [employer]; ensure plus high protein 120mL 4x/day w/ medpass when diet advanced . Consider enteral nutrition support if unable to advance PO diet, consult RDN for further recs as needed. Lab / Micro Data 06/16/23 05:35 06/16/23 05:35 Labs: Laboratory Results - last 24 hr 06/15/23 17:35: WBC 5.1, RBC 3.43 L, Hgb 10.0 L, Hct 32.8 L, MCV 95.6 H, MCH 29.2, MCHC 30.5 L, RDW Std Deviation 59.8 H, RDW Coeff of Kalyan 17.0 H, Plt Count 184, MPV 10.4, Immature Gran % (Auto) 0.400, Neut % (Auto) 93.0 H, Lymph % (Auto) 5.8 L, Harmon % (Auto) 0.6, Eos % (Auto) 0.0, Baso % (Auto) 0.2, Absolute Neuts (auto) 4.8, Absolute Lymphs (auto) 0.30 L, Nucleated RBC % 0, Differential Comment SEE COMMENT, Platelet Estimate ADEQUATE, RBC Morphology N CHROM, Hypochromasia RARE, Anisocytosis RARE, Macrocytosis RARE, Ovalocytes RARE, PT 63.4 H, INR 7.2 H*, Sodium 139, Potassium 3.7, Chloride 105, Carbon Dioxide 27.0, Anion Gap 7, BUN 24 H, Creatinine 2.30 H, Estim Creat Clear Calc 22.12, Est GFR (MDRD) Af Amer 35 L, Est GFR (MDRD) Non-Af 29 L, BUN/Creatinine Ratio 10.4, Glucose 152 H, Calcium 9.2, Total Bilirubin 0.80, AST 29, ALT 36, Alkaline Phosphatase 116, Total Protein 7.0, Albumin 3.6, Globulin 3.4, Albumin/Globulin Ratio 1.1, Lipase 12 L 06/15/23 18:20: Urine Color Yellow, Urine Clarity Clear, Urine pH 7.0, Ur Specific Garrison 1.015, Urine Protein 100 H, Urine Glucose (UA) 1000 H, Urine Ketones Negative, Urine Occult Blood 150 H, Urine Nitrite Negative, Urine Bilirubin Negative, Urine Urobilinogen Normal, Ur Leukocyte Esterase Negative, Urine RBC 5-10 SEEN, Urine WBC 0 SEEN, Ur Squamous Epith Cells 0-5 SEEN, Urine Bacteria 1+, Fine Granular Casts 0-5 SEEN, Urine Mucus 0 SEEN 06/16/23 05:35: WBC 3.8 L, RBC 2.81 L, Hgb 8.6 L, Hct 27.7 L, MCV 98.6 H, MCH 30.6, MCHC 31.0 L, RDW Std Deviation 60.5 H, RDW Coeff of Kalyan 17.0 H, Plt Count 139 L, MPV 10.4, Immature Gran % (Auto) 0.800, Neut % (Auto) 88.1 H, Lymph % (Auto) 9.5 L, Harmon % (Auto) 1.6, Eos % (Auto) 0.0, Baso % (Auto) 0.0, Absolute Neuts (auto) 3.3, Absolute Lymphs (auto) 0.36 L, Nucleated RBC % 0, Differential Comment SCANNED, Diff Path Review November, PT 63.6 H, INR 7.3 H*, Sodium 142, Potassium 3.9, Chloride 110 H, Carbon Dioxide 27.0, Anion Gap 5, BUN 29 H, Creatinine 1.97 H, Estim Creat Clear Calc 23.69, Est GFR (MDRD) Af Amer 42 L, Est GFR (MDRD) Non-Af 35 L, BUN/Creatinine Ratio 14.7, Glucose 110 H, Calcium 8.2 L Imagaing Radiology Impression Chest X-Ray 06/15/23 17:27 IMPRESSION: No acute cardiopulmonary pathology. Electronically Signed: Jordy Sevilla MD at 18:23 EST , Assessment & Plan Assessment/Plan (1) Acute blood loss anemia: PLAN: Previous gastric gastric ulcer from an anti-platelet medicine complicated by supratherapeutic INR and clopidogrel Warfarin currently held (2) Supratherapeutic INR: PLAN: I am not sure that he doesn't have cirrhosis. H his fibro scan did show a stiffness of 11.5 kPa and he has persistent thrombocytopenia with elevated MCV. Given his underlying heart disease, he has a strong probability of cirrhosis. His INR is increasing and was up to 7.3. He was given Kcentra and vitamin K. (3) SALVADOR (acute kidney injury): PLAN: Creatinine 1.62. Creatinine from [facility] on 03/25 was 1.33. Previous FEUrea 53.16% renal US shows horseshoe kidney. right renal cyst. (4) Encephalopathy: PLAN: He's nothe is not showing any signs of encephalopathy at this time. I would play some on lactulose 20 cc twice a day as a fax and five and 50 mg twice a day while he's in the hospital. (5) Dysphagia: QUALIFIERS: Dysphagia type: esophageal phase Qualified Code(s): R13.19 - Other dysphagia PLAN: He will undergo an upper endoscopy for esophageal dysphagia secondary to esophageal spasms and inappropriate esophageal motility disorder. We will inject Botox into the lower esophageal sphincter. He was explained alternatives, risk, benefits including not withstanding bleeding, infection, sepsis, perforation, need for emergent surgery . He will have an ASA of 3. PLAN: Plan Chronic complicating conditions: HFrEF ischemic cardiomyopathy-according to [facility] records, patient's ejection fraction was 20-30%. No evidence of acute exacerbation on CXR. Continue metoprolol succinate. permanent atrial fibrillation on Heparin, drip. Patient has also been on amiodarone which can cause fatty liver disease, and DJ Rosa Marquez. He is at risk for congestive hepatopathy. mechanical aortic valve- On heparin drip coronary artery disease-patient had recent stents placed in the LAD on 03/11. Charges/Coding Visit Charges Inpatient E&M: 83281 Init Hosp L3
[2023-06-15] MEDS: 0.9% Saline Lock 10 ML Syringe IV (23:04)
[2023-06-16] VITALS (15 sets, daily range): BP systolic 94–135; BP diastolic 49–63; PULSE 59–66; RESP 12–20; TEMP 36.2–36.8; O2SAT 95–99; BMI 19.3
[2023-06-16] MEDS: 0.9% Saline Lock 10 ML Syringe IV (01:05)
--- NOTE | 2023-06-16 03:49 | PCM.HOSP.N ---
Hospitalist Note INR 7.2. With plans for endoscopy today, and with pt w dysphagia being NPO, I will give KCentra and IV vitamin. Follow up INR.
[2023-06-16] MEDS: Phytonadione (Vit K) 5 MG in 0.9% Normal Saline (50mL Bag) 50 ML 150 MG IV (04:31)
[2023-06-16 06:14] LABS: Absolute Lymphocyte Count 0.36 X10^3/uL (0.83-4.51); Absolute Neutrophil Count 3.3 X10^3/uL (2.0-7.7); Hematocrit 27.7 % (40-54); Hemoglobin 8.6 g/dL (13.0-16.5); Lymphocyte # 0.36 X10^3/ul (0.83-4.51); Lymphocyte % 9.5 % (19-41); Mean Corpuscular Hgb 30.6 pg (27.0-32.0); Mean Corpuscular Volume 98.6 fL (80-94); Mean Platelet Vol. 10.4 fl (6.2-12.0); Monocyte# 0.06 X10^3/uL; Monocyte% 1.6 % (0-10); NRBC Flagged by Analyzer 0 % (0-5); Neutrophil # 3.32 X10^3/uL (2.7-7.7); Neutrophil % 88.1 % (47-70); POSITIVE DIFFERENTIAL YES; Platelet Count 139 K/mm3 (150-450); RBC Distribution Width SD 60.5 fl (35.1-43.9); Red Blood Count 2.81 M/mm3 (4.6-6.2); White Blood Count 3.8 K/mm3 (4.4-11.0)
[2023-06-16 06:24] LABS: Differential Indicated SCAN CRITERIA MET; Prothrombin Time (Protime)PT. 63.6 SECONDS (11.7-14.9)
[2023-06-16 06:29] LABS: International Normalized Ratio 7.3
[2023-06-16 06:47] LABS: Anion Gap 5 (5-15); BUN 29 mg/dL (7-18); BUN/Creat Ratio 14.7 RATIO (10-20); Calcium,Total 8.2 mg/dL (8.5-10.1); Chloride 110 mmol/L (98-107); Creatinine, Serum 1.97 mg/dL (0.70-1.30); EST Glomerular Filtration Rate 35 mL/min (>60); Est Glom Filt Rate - Afr Amer 42 mL/min (>60); Estimated Creatinine Clearance 23.69 ml/min; Glucose 110 mg/dL (74-106); Potassium 3.9 mmol/L (3.5-5.1); Sodium Level 142 mmol/L (136-145)
[2023-06-16 06:48] LABS: Differential Comment SCANNED
--- NOTE | 2023-06-16 09:27 | PN.HOSP_ITS ---
Reason for Visit Reason for Visit: Diagnoses Dysphagia, unspecified (06/15/23) Subjective Subjective Still has sticking feeling in his throat, awaiting EGD, has no other acute complaints no abdominal pain Objective Data Objective Data Vital Signs: Vital Signs Temp Pulse Resp BP Pulse Ox O2 Del Method 97.2 F L 60 18 107/54 L 97 Room Air 06/16/23 07:45 06/16/23 07:45 06/16/23 07:45 06/16/23 08:24 06/16/23 07:45 06/16/23 08:02 Oxygen Delivery Method Room Air Weight: 61.1 kg Body Mass Index (BMI) 19.3 Intake & Output: Intake and Output for Last 24 Hours 06/14/23 06/15/23 06/16/23 23:59 23:59 23:59 Intake Total 1000 / 1070 240.5 / 240.5 Output Total 250 / 250 Balance 1000 / 1070 -9.5 / -9.5 Lab / Micro Data 06/16/23 05:35 06/16/23 05:35 Labs: Laboratory Results - last 24 hr 06/15/23 17:35: WBC 5.1, RBC 3.43 L, Hgb 10.0 L, Hct 32.8 L, MCV 95.6 H, MCH 29.2, MCHC 30.5 L, RDW Std Deviation 59.8 H, RDW Coeff of Kalyan 17.0 H, Plt Count 184, MPV 10.4, Immature Gran % (Auto) 0.400, Neut % (Auto) 93.0 H, Lymph % (Auto) 5.8 L, Barron % (Auto) 0.6, Eos % (Auto) 0.0, Baso % (Auto) 0.2, Absolute Neuts (auto) 4.8, Absolute Lymphs (auto) 0.30 L, Nucleated RBC % 0, Differential Comment SEE COMMENT, Platelet Estimate ADEQUATE, RBC Morphology N CHROM, Hypochromasia RARE, Anisocytosis RARE, Macrocytosis RARE, Ovalocytes RARE, PT 63.4 H, INR 7.2 H*, Sodium 139, Potassium 3.7, Chloride 105, Carbon Dioxide 27.0, Anion Gap 7, BUN 24 H, Creatinine 2.30 H, Estim Creat Clear Calc 22.12, Est GFR (MDRD) Af Amer 35 L, Est GFR (MDRD) Non-Af 29 L, BUN/Creatinine Ratio 10.4, Glucose 152 H, Calcium 9.2, Total Bilirubin 0.80, AST 29, ALT 36, Alkaline Phosphatase 116, Total Protein 7.0, Albumin 3.6, Globulin 3.4, Albumin/Globulin Ratio 1.1, Lipase 12 L 06/15/23 18:20: Urine Color Yellow, Urine Clarity Clear, Urine pH 7.0, Ur Specific [place] 1.015, Urine Protein 100 H, Urine Glucose (UA) 1000 H, Urine Ketones Negative, Urine Occult Blood 150 H, Urine Nitrite Negative, Urine Bilirubin Negative, Urine Urobilinogen Normal, Ur Leukocyte Esterase Negative, Urine RBC 5-10 SEEN, Urine WBC 0 SEEN, Ur Squamous Epith Cells 0-5 SEEN, Urine Bacteria 1+, Fine Granular Casts 0-5 SEEN, Urine Mucus 0 SEEN 06/16/23 05:35: WBC 3.8 L, RBC 2.81 L, Hgb 8.6 L, Hct 27.7 L, MCV 98.6 H, MCH 30.6, MCHC 31.0 L, RDW Std Deviation 60.5 H, RDW Coeff of Kalyan 17.0 H, Plt Count 139 L, MPV 10.4, Immature Gran % (Auto) 0.800, Neut % (Auto) 88.1 H, Lymph % (Auto) 9.5 L, Barron % (Auto) 1.6, Eos % (Auto) 0.0, Baso % (Auto) 0.0, Absolute Neuts (auto) 3.3, Absolute Lymphs (auto) 0.36 L, Nucleated RBC % 0, Differential Comment SCANNED, Diff Path Review November, PT 63.6 H, INR 7.3 H*, Sodium 142, Potassium 3.9, Chloride 110 H, Carbon Dioxide 27.0, Anion Gap 5, BUN 29 H, Creatinine 1.97 H, Estim Creat Clear Calc 23.69, Est GFR (MDRD) Af Amer 42 L, Est GFR (MDRD) Non-Af 35 L, BUN/Creatinine Ratio 14.7, Glucose 110 H, Calcium 8.2 L Radiography Diagnostic Testing: Radiology Impression Chest X-Ray 06/15/23 17:27 IMPRESSION: No acute cardiopulmonary pathology. Electronically Signed: Jordy Sevilla MD at 18:23 EST , Physical Exam Narrative General: Alert, oriented, no apparent distress HEENT: Atraumatic, normocephalic Eyes: Anicteric, normal conjunctiva, extraocular movements grossly intact Neck: Supple Respiratory: Clear to auscultation bilaterally, normal respiratory effort Cardiovascular: Regular rate GI: Soft, nontender, nondistended Extremities: No edema Musculoskeletal: Moving all extremities Neuro: No overt focal neurological deficits Skin: No rashes appreciated Psych: Cooperative Assessment & Plan Assessment/Plan (1) Dysphagia: PLAN: Plan Patient is an 83-year-old male who presented to [facility] ED on 06/15/2023 with worsening dysphagia. 1. Dysphagia, concern for esophageal spasms Complex GI history, follows with Dr. Muir, see his H&P note from 06/15 for further details. Patient had EGD done on 06/15 for dysphagia, dilation done during EGD; Dr. Muir noted abnormal esophageal motility suspicious for esophageal spasm. Patient discharged home from endoscopy but had severe dysphagia with any food or drink at home, came back to the ED on afternoon of 06/15. ? Admit under inpatient status to [facility]. GI consulted. Per Dr. Muir, plan is for upper endoscopy tomorrow with likely Botox injection for suspected esophageal spasms. N.p.o. for now. -06/16: Patient for EGD today, maintain n.p.o. 2. Paroxysmal atrial fibrillation on Coumadin, supratherapeutic INR Follows with cardiology, last office visit on 04/07/2023. Notably had prolonged hospitalization in February with several complications as noted in HPI. Noted at cardiology office visit that patient has history of paroxysmal A-fib, recent pacemaker interrogation showed atrial tachycardia. Was continued on Toprol 100 mg twice daily, amiodarone 200 mg daily, warfarin with goal INR 2.5-3.5. INR was noted to be supratherapeutic on recent admission in April, had significant GI bleed from multiple oozing gastric ulcers at that time; INR improved to normal range with Kcentra and vitamin K. Now again with supratherapeutic INR of 6.3 on 06/14, repeat INR 7.2 on 06/15. Patient has held his home Coumadin for the last 2 days, and he and his daughter state that his dose has been decreased multiple times recently. Have concern that patient's possible liver fibrosis as noted below may be causing poor clearance of Coumadin, leading to an elevated INR. No active signs of bleeding noted. ? Given 1 dose of p.o. vitamin K 5 mg in the ED. Repeat INR tomorrow morning. Continue to hold on any anticoagulation. Monitor telemetry. Continue home amiodarone. Notably patient's Toprol was decreased to 50 mg daily recently due to hypotension, continue Toprol at lower dose. Monitor closely for signs of bleeding. -06/16: Still had elevated INR so patient given further vitamin K and PCC, daily INR. Continue Amio. Patient has INR goal of 2.5-3.5 and has a [place] Rachid aortic valve, has had problems being supratherapeutic in the past. This will need to be monitored carefully moving forward and will need to explore if patient needs bridged on discharge 3. SALVADOR on CKD stage 3 Creatinine 2.30 on admit, BUN 24. Baseline creatinine 1.4-1.7. Suspect mild prerenal SALVADOR in setting of poor p.o. intake recently. Notably patient's CBC values appeared hemoconcentrated, would be consistent with dehydration and prerenal SALVADOR. ? Follow-up a.m. BMP. Monitor urine output. Can consider IV fluids as needed but will need to be very careful with fluid administration given patient's severe HFrEF as noted below. -06/16: Improving, has variable baseline but is close to her previous values, will hold Lasix again today, daily weights, patient n.p.o., will consider resuming Lasix tomorrow but will monitor clinically 4. Chronic iron deficiency anemia, recent GI bleed Hemoglobin 10.0 on admit, MCV 95. Hemoglobin on recent admission ranged between 7 and 9. Had recent admission for significant upper GI bleed as noted in HPI. No BRBPR or dark stools noted per patient and daughter on admission. ? Follow-up a.m. CBC. -06/16:Hemoglobin 8.6 down from 10 yesterday however appears that this is actually his baseline and no evidence of acute blood loss 5. 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 Echo from 02/2023 showed an EF of 20 to 30%. Had left heart cath done on 03/11/2023 with successful intervention of the mid LAD with 2 drug-eluting stents. S/p E [employer]-D i mplantation on contralateral side on 03/22/2023. Had significant hypotension and bradycardia during that admission, patient's losartan, Lasix and Aldactone were held on that discharge. Since that cardiology visit, patient's dose of Toprol has been decreased as noted above, appears he has been taking his losartan, Lasix, Aldactone as he was previously. ? Will hold home Plavix for tomorrow morning given supratherapeutic INR and bleeding risk with GI intervention, restart as soon as able. Continue home Toprol at reduced dose. Hold home losartan, Lasix, Aldactone, Jardiance for now given SALVADOR as noted above, restart as needed. Continue home atorvastatin. -06/16: Lasix held and Plavix held, daily weights, monitor respiratory status 6. Concern for liver fibrosis Follows with Dr. Muir, see his H&P on 06/15 for further details. In short, patient has conflicting results that could be indicative of possible liver fibrosis. Per Dr. Muir, patient ideally would need liver biopsy for ultimate determination but given he is on 2 blood thinners and has poor functional status, liver biopsy is contraindicated at this point. ? Defer to GI for further management. -06/16: If patient able to swallow after EGD will need to resume his lactulose Chronic medical conditions: ? History of aortic stenosis s/p artificial aortic valve replacement: Anticoagulation management as noted above. ? Nicotine dependence: NRT as needed. ? Chronic pain: Continue home buprenorphine patch. DVT prophylaxis: SCDs CODE STATUS: DNR CCA, DO NOT INTUBATE Expected disposition: Home, TBD Total clinical time spent by myself addressing the patient's medical issues, reviewing all the data, and collaborating with patient's care team: 36 minutes. Charges/Coding Visit Charges Inpatient E&M: 58123 Subs Hosp L2
[2023-06-16] MEDS: Lactated Ringers 1,000 ML 15 ML IV (09:42)
--- NOTE | 2023-06-16 10:15 | EGD_PTH ---
PATIENT: REBECCA ARRIOLA I LOC: [facility] U#:[id number] AGE/SX: 83/M ROOM: [facility] RE06/15/[address]: Dr. Kaitlynn Dasilva MD : 1940 BED: 1 DIS: 06/19/2023 SPEC #: [id number] RECD: 06/16/23 12:27 STATUS: ANYI REQ #: [id number] ANGEL: 06/16/23 10:[address]: Kaitlynn Dasilva DEPT: SURGICAL PATHOLOGY RECD BY: Shira No ENTERED: 06/16/23 13:10 SP TYPE: EGD BIOPSY OT DR: DO Dr. Guillermo Pinto MD Tissues: Esophagus, NOS Procedures: Special Stain Group II Surgery Specimen Level IV Alcian Blue/PAS (control) HEADER OPERATION: EGD with Botox and biopsy PRE-OP DIAGNOSIS: Dysphagia TISSUE SUBMITTED: Random esophagus biopsy MICROSCOPIC DIAGNOSIS Esophagus, random biopsy: Gastroesophageal junctional mucosa with mild chronic inflammation. No evidence of goblet cell metaplasia. See comment. AM:marcella 06/17/2023 MICROSCOPIC DESCRIPTION Slides are reviewed. GROSS DESCRIPTION Received in fixative is one container labeled with the patient's name and designated random esophagus biopsy. The specimen consists of multiple irregular fragments of light frausto soft tissue that in aggregate measure 1.5 x 0.3 x 0.1 cm. The specimen is totally submitted in one cassette. / AM:marcella 06/16/2023 TC:3 CPT: 76644, 76215
[2023-06-16] MEDS: Botulinum Toxin A 100 Units Vial IJ (11:01)
[2023-06-16] MEDS: 0.9% Normal Saline (Pres. free 10 ML Vial (11:01)
--- NOTE | 2023-06-16 11:19 | OP.EGD_ITS ---
Patient Name: Kash Montejo Procedure Date: 06/16/2023 10:46 AM Date of : 1940 Age: 83 Procedure: Upper GI endoscopy Indications: Dysphagia Providers: Fazal Muir DO Medicines: Monitored Anesthesia Care Patient Profile: This is an 83 year old male. Refer to note in patient chart for documentation of history and physical. Patient has symptoms of acute dysphagia and dysphagia with both liquids and solids. Complications: No immediate complications. Procedure: Pre-Anesthesia Assessment: - Prior to the procedure, a History and Physical was performed, and patient medications and allergies were reviewed. The patient is competent. The risks and benefits of the procedure and the sedation options and risks were discussed with the patient. All questions were answered and informed consent was obtained. Patient identification and proposed procedure were verified by the physician. Mental Status Examination: normal. CV Examination: normal. Prophylactic Antibiotics: The patient does not require prophylactic antibiotics. Prior Anticoagulants: The patient has taken no anticoagulant or antiplatelet agents. After reviewing the risks and benefits, the patient was deemed in satisfactory condition to undergo the procedure. The anesthesia plan was to use monitored anesthesia care (MAC). Immediately prior to administration of medications, the patient was re-assessed for adequacy to receive sedatives. The heart rate, respiratory rate, oxygen saturations, blood pressure, adequacy of pulmonary ventilation, and response to care were monitored throughout the procedure. The physical status of the patient was re-assessed after the procedure. After obtaining informed consent, the endoscope was passed under direct vision. Throughout the procedure, the patient's blood pressure, pulse, and oxygen saturations were monitored continuously. The Endoscope was introduced through the mouth, and advanced to the second part of duodenum. The upper GI endoscopy was accomplished without difficulty. The patient tolerated the procedure well. Scope In: 10:59:38 AM Scope Out: 11:07:26 AM Total Procedure Duration Time 0 hours 7 minutes 48 seconds Findings: Abnormal motility was noted in the esophagus. The cricopharyngeus was abnormal. There is spasticity of the esophageal body. The distal esophagus/lower esophageal sphincter is spastic, but gives up passage to the endoscope. Tertiary peristaltic waves are noted. Area was successfully injected with 100 units botulinum toxin. Biopsies were obtained from the proximal and distal esophagus with cold forceps for histology of suspected eosinophilic esophagitis. A moderate Schatzki ring was found at the gastroesophageal junction. A guidewire was placed and the scope was withdrawn. Dilation was performed with a Savary dilator with no resistance at 45 Fr. A small hiatal hernia was present. No other significant abnormalities were identified in a careful examination of the stomach. The second portion of the duodenum was normal. Impression: - Abnormal esophageal motility, suspicious for esophageal spasm. Injected with botulinum toxin. - Moderate Schatzki ring. Dilated. - Small hiatal hernia. - Normal second portion of the duodenum. - Biopsies were taken with a cold forceps for evaluation of eosinophilic esophagitis. Recommendation: - Return [facility] to [facility]. - Clear liquid diet. - Continue present medications. Procedure Code(s): --- Professional --- 51890, Esophagogastroduodenoscopy, flexible, transoral; with insertion of guide wire followed by passage of dilator(s) through esophagus over guide wire 64836, 59, Esophagogastroduodenoscopy, flexible, transoral; with biopsy, single or multiple 32450, 59, Esophagogastroduodenoscopy, flexible, transoral; with directed submucosal injection(s), any substance CPT copyright 2021 [employer] [place] [employer]. All rights reserved. The codes documented in this report are preliminary and upon magnet valve assembler review may be revised to meet current compliance requirements. Fazal Muir DO 06/16/2023 11:18:34 AM This report has been signed electronically. Number of Addenda: 0 Note Initiated On: 06/16/2023 10:46 AM
--- NOTE | 2023-06-16 11:19 | OP.CCLET_ITS ---
06/16/2023 Guillermo Pritchard MD [address] [place] [address] Re : Upper GI endoscopy procedure for Kash Montejo Dear Dr. Pritchard This procedure was performed on May. My impressions and recommendations are as follows: Impressions : - Abnormal esophageal motility, suspicious for esophageal spasm. Injected with botulinum toxin. - Moderate Schatzki ring. Dilated. - Small hiatal hernia. - Normal second portion of the duodenum. - Biopsies were taken with a cold forceps for evaluation of eosinophilic esophagitis. Recommendations : - Return patient to [facility] for [facility] care. - Clear liquid diet. - Continue present medications. My findings are described in the full procedure note, which is enclosed. If I can be of further assistance, please feel free to contact me at . Sincerely, Fazal Muir, 06/16/2023 11:18:34 AM This report has been signed electronically.
[2023-06-16] MEDS: Metoprolol(XL)Succ 50 MG Tablet PO (12:04)
[2023-06-16] MEDS: Pantoprazole Sodium 40 MG Tablet PO ×2 (12:04→21:29)
[2023-06-16] MEDS: Cholecalciferol (VIT D3) 25 MCG TABLET (1,000 UNITS) PO (12:05)
[2023-06-16] MEDS: Amiodarone 200 MG Tablet PO (12:05)
[2023-06-16] MEDS: Ferrous Sulfate 325 MG Tablet PO (12:05)
[2023-06-16 12:39] LABS: International Normalized Ratio 1.1; Prothrombin Time (Protime)PT. 14.4 SECONDS (11.7-14.9)
--- NOTE | 2023-06-16 14:45 | CASEMGMT ---
RN ALEXANDER Face to Face with patient for initial transition planning/care coordination assessment. RN CM introduced self and role at [facility]. Patient lying in bed, alert and oriented. Patient willing to participate in assessment and is able to answer all questions appropriately. Care providers, pharmacy, and demographics verified. Patient wishes to discharge home, denies need for home health at this time. Patient states he has no further needs or concerns at this time. CM to follow for discharge planning needs that may arise. PCP: [facility] Specialists: Friend, GI; [facility], cardiology Preferred Pharmacy: [facility] Insurance: [facility] Prescription Benefit: yes Living Will/HPOA: yes, daughter Emily Montejo LNOK: daughter Living Arrangements: Patient lives alone in a single story home with ramp to enter. Patient is independent at home. Daughter lives [address] patient[address] Transportation: self, daughter DME/HHC: Patient has shower chair, cane, grab bars, walker, rollator, nebuizler, pulse ox, power wheelchair, and home oxygen with portability. Patient has had [facility] in the past. No previous SNF. Disposition Plan: Patient to discharge home with family support and follow-up plans in place. Lily RASHID, RN, CM
[2023-06-16] MEDS: Ipratropium/Albuterol Sulfate 3 ML AMPUL.NEB INHALATION ×2 (15:07→19:28)
[2023-06-16] MEDS: Folic Acid 1 MG Tablet PO (21:29)
[2023-06-16] MEDS: Atorvastatin Calcium 80 MG Tablet PO (21:29)
[2023-06-16] MEDS: Lactulose 20 GM/30 ML UDC PO (21:38)
[2023-06-16] MEDS: Zolpidem Tartrate 5 MG Tablet 10 MG PO (21:38)
[2023-06-17] VITALS (8 sets, daily range): BP systolic 103–120; BP diastolic 50–64; PULSE 60–67; RESP 14–18; TEMP 36.3–36.6; O2SAT 94–100; BMI 19.4
[2023-06-17 06:26] LABS: Absolute Lymphocyte Count 0.26 X10^3/uL (0.83-4.51); Absolute Neutrophil Count 6.2 X10^3/uL (2.0-7.7); Hematocrit 26.4 % (40-54); Lymphocyte # 0.26 X10^3/ul (0.83-4.51); Lymphocyte % 3.8 % (19-41); Mean Corp Hgb Conc 30.3 g/dL (32-36); Mean Corpuscular Hgb 29.7 pg (27.0-32.0); Mean Corpuscular Volume 98.1 fL (80-94); Mean Platelet Vol. 10.5 fl (6.2-12.0); Monocyte# 0.29 X10^3/uL; Monocyte% 4.3 % (0-10); NRBC Flagged by Analyzer 0 % (0-5); Neutrophil % 91.3 % (47-70); POSITIVE DIFFERENTIAL YES; Platelet Count 155 K/mm3 (150-450); RBC Distribution Width CV 16.8 % (11.6-14.6); RBC Distribution Width SD 59.9 fl (35.1-43.9); Red Blood Count 2.69 M/mm3 (4.6-6.2); White Blood Count 6.8 K/mm3 (4.4-11.0)
[2023-06-17 06:29] LABS: Differential Indicated SCAN CRITERIA MET
[2023-06-17 06:36] LABS: Prothrombin Time (Protime)PT. 13.5 SECONDS (11.7-14.9)
[2023-06-17] MEDS: Ipratropium/Albuterol Sulfate 3 ML AMPUL.NEB INHALATION ×3 (07:21→19:50)
[2023-06-17 07:28] LABS: Anion Gap 4 (5-15); BUN 32 mg/dL (7-18); Calcium,Total 8.2 mg/dL (8.5-10.1); Chloride 111 mmol/L (98-107); EST Glomerular Filtration Rate 34 mL/min (>60); Est Glom Filt Rate - Afr Amer 41 mL/min (>60); Estimated Creatinine Clearance 23.45 ml/min; Glucose 139 mg/dL (74-106); Sodium Level 141 mmol/L (136-145)
--- NOTE | 2023-06-17 09:04 | PCM.PN.HOSP ---
Reason for Visit Reason for Visit: Diagnoses Acute posthemorrhagic anemia (06/15/23) Encephalopathy, unspecified (06/15/23) Acute kidney failure, unspecified (06/15/23) Dysphagia, unspecified (06/15/23) Other dysphagia (06/15/23) Abnormal coagulation profile (06/15/23) Subjective Subjective Swallowing clear liquids without significant difficulty, overall feeling much better Objective Data Objective Data Vital Signs: Vital Signs Temp Pulse Resp BP Pulse Ox O2 Del Method 97.7 F L 61 16 103/50 L 94 Room Air 06/17/23 04:00 06/17/23 04:00 06/17/23 04:00 06/17/23 04:00 06/17/23 04:00 06/17/23 08:00 Oxygen Delivery Method Room Air Weight: 61.4 kg Body Mass Index (BMI) 19.4 Intake & Output: Intake and Output for Last 24 Hours 06/15/23 06/16/23 06/17/23 23:59 23:59 23:59 Intake Total 1000 / 1070 676.0 / 676.0 Output Total 600 / 600 Balance 1000 / 1070 76.0 / 76.0 Medical Nutrition Assessment Dietitian: Malnutrition Criteria Met Start: 06/16/23 10:39 Freq: Status: Active Protocol: Document 06/16/23 10:39 AG (Rec: 06/16/23 10:39 AG Desktop) Nutrition Malnutrition Evidence of Malnutrition Exists Yes Malnutrition (severe): Chronic Evidenced By Suboptimal Energy Intake ( Severe),Weight Loss (Severe) Clinical Problem Chronic Disease or Condition Related Malnutrition Etiology severe, chronic malnutrition related to inadequate energy intake, dysphagia Signs/Symptoms as evidenced by unintentional wt loss of 14.1#/9% wt loss < 3 months, estimated PO intake meeting < 75% of estimated energy needs > 3 months Status Active Problem Recommendation Dietitian Recommendations/Changes recommend advance diet as tolerated to regular- texture/ consistency per GAS TESTER; ensure plus high protein 120mL 4x/day w/ medpass when diet advanced . Consider enteral nutrition support if unable to advance PO diet, consult RDN for further recs as needed. Lab / Micro Data 06/17/23 05:50 06/17/23 05:50 Labs: Laboratory Results - last 24 hr 06/16/23 12:02: PT 14.4, INR 1.1 06/17/23 05:50: WBC 6.8, RBC 2.69 L, Hgb 8.0 L, Hct 26.4 L, MCV 98.1 H, MCH 29.7, MCHC 30.3 L, RDW Std Deviation 59.9 H, RDW Coeff of Kalyan 16.8 H, Plt Count 155, MPV 10.5, Immature Gran % (Auto) 0.600, Neut % (Auto) 91.3 H, Lymph % (Auto) 3.8 L, [place] % (Auto) 4.3, Eos % (Auto) 0.0, Baso % (Auto) 0.0, Absolute Neuts (auto) 6.2, Absolute Lymphs (auto) 0.26 L, Nucleated RBC % 0, Differential Comment COMMENT, PT 13.5, INR 1.0, Sodium 141, Potassium 4.0, Chloride 111 H, Carbon Dioxide 26.0, Anion Gap 4 L, BUN 32 H, Creatinine 2.00 H, Estim Creat Clear Calc 23.45, Est GFR (MDRD) Af Amer 41 L, Est GFR (MDRD) Non-Af 34 L, BUN/Creatinine Ratio 16.0, Glucose 139 H, Calcium 8.2 L Physical Exam Narrative General: Alert, oriented, no apparent distress HEENT: Atraumatic, normocephalic Eyes: Anicteric, normal conjunctiva, extraocular movements grossly intact Neck: Supple Respiratory: Clear to auscultation bilaterally, normal respiratory effort Cardiovascular: Regular rate GI: Soft, nontender, nondistended Extremities: No edema Musculoskeletal: Moving all extremities Neuro: No overt focal neurological deficits Skin: No rashes appreciated Psych: Cooperative Assessment & Plan Assessment/Plan (1) Dysphagia: QUALIFIERS: Dysphagia type: esophageal phase Qualified Code(s): R13.19 - Other dysphagia PLAN: Plan Patient is an 83-year-old male who presented to [facility] ED on 06/15/2023 with worsening dysphagia. 1. Dysphagia, concern for esophageal spasms Complex GI history, follows with Dr. Muir, see his H&P note from 06/15 for further details. Patient had EGD done on 06/15 for dysphagia, dilation done during EGD; Dr. Muir noted abnormal esophageal motility suspicious for esophageal spasm. Patient discharged home from endoscopy but had severe dysphagia with any food or drink at home, came back to the ED on afternoon of 06/15. ? Admit under inpatient status to [facility]. GI consulted. Per Dr. Muir, plan is for upper endoscopy tomorrow with likely Botox injection for suspected esophageal spasms. N.p.o. for now. -06/16: Patient for EGD today, maintain n.p.o. -06/17: Patient had EGD which showed abnormal esophageal motility suspicious for spasm and was treated with Botox, had moderate Schatzki ring which was dilated. Tolerated procedure and was started on clear liquid diet. Evaluated by speech today and given modified recommendations based on clear liquid diet and will continue to progress with recommendations once cleared for further diet by GI. Continue to work with speech therapy. Continue PPI, patient advance to full diet today 2. Paroxysmal atrial fibrillation on Coumadin, supratherapeutic INR Follows with cardiology, last office visit on 04/07/2023. Notably had prolonged hospitalization in February with several complications as noted in HPI. Noted at cardiology office visit that patient has history of paroxysmal A-fib, recent pacemaker interrogation showed atrial tachycardia. Was continued on Toprol 100 mg twice daily, amiodarone 200 mg daily, warfarin with goal INR 2.5-3.5. INR was noted to be supratherapeutic on recent admission in April, had significant GI bleed from multiple oozing gastric ulcers at that time; INR improved to normal range with Kcentra and vitamin K. Now again with supratherapeutic INR of 6.3 on 06/14, repeat INR 7.2 on 06/15. Patient has held his home Coumadin for the last 2 days, and he and his daughter state that his dose has been decreased multiple times recently. Have concern that patient's possible liver fibrosis as noted below may be causing poor clearance of Coumadin, leading to an elevated INR. No active signs of bleeding noted. ? Given 1 dose of p.o. vitamin K 5 mg in the ED. Repeat INR tomorrow morning. Continue to hold on any anticoagulation. Monitor telemetry. Continue home amiodarone. Notably patient's Toprol was decreased to 50 mg daily recently due to hypotension, continue Toprol at lower dose. Monitor closely for signs of bleeding. -06/16: Still had elevated INR so patient given further vitamin K and PCC, daily INR. Continue Amio. Patient has INR goal of 2.5-3.5 and has a [place] aortic valve, has had problems being supratherapeutic in the past. This will need to be monitored carefully moving forward and will need to explore if patient needs bridged on discharge -06/17: INR 1 today, previously was bridged back to Coumadin, discussed with GI, okay to resume anticoagulation and antiplatelet we will resume Coumadin at a dose decrease of 15 %/week per RE-LY trial recommendations and start patient on 5 mg daily with Lovenox bridge 3. SALVADOR on CKD stage 3 Creatinine 2.30 on admit, BUN 24. Baseline creatinine 1.4-1.7. Suspect mild prerenal SALVADOR in setting of poor p.o. intake recently. Notably patient's CBC values appeared hemoconcentrated, would be consistent with dehydration and prerenal SALVADOR. ? Follow-up a.m. BMP. Monitor urine output. Can consider IV fluids as needed but will need to be very careful with fluid administration given patient's severe HFrEF as noted below. -06/16: Improving, has variable baseline but is close to her previous values, will hold Lasix again today, daily weights, patient n.p.o., will consider resuming Lasix tomorrow but will monitor clinically -06/17: Creatinine similar to yesterday with slight uptrend in BUN, continue to hold Lasix and assess if patient able to improve with oral intake now that he is able to have clear liquids, hesitant to give fluids and to avoid overload however if continues to worsen and has suboptimal p.o. intake may need to give gentle IVF 4. Chronic iron deficiency anemia, recent GI bleed Hemoglobin 10.0 on admit, MCV 95. Hemoglobin on recent admission ranged between 7 and 9. Had recent admission for significant upper GI bleed as noted in HPI. No BRBPR or dark stools noted per patient and daughter on admission. ? Follow-up a.m. CBC. -06/16:Hemoglobin 8.6 down from 10 yesterday however appears that this is actually his baseline and no evidence of acute blood loss -06/17: Hemoglobin 8.0, no evidence of ongoing blood loss 5. 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 Echo from 02/2023 showed an EF of 20 to 30%. Had left heart cath done on 03/11/2023 with successful intervention of the mid LAD with 2 drug-eluting stents. 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 Had significant hypotension and bradycardia during that admission, patient's losartan, Lasix and Aldactone were held on that discharge. Since that cardiology visit, patient's dose of Toprol has been decreased as noted above, appears he has been taking his losartan, Lasix, Aldactone as he was previously. ? Will hold home Plavix for tomorrow morning given supratherapeutic INR and bleeding risk with GI intervention, restart as soon as able. Continue home Toprol at reduced dose. Hold home losartan, Lasix, Aldactone, Jardiance for now given SALVADOR as noted above, restart as needed. Continue home atorvastatin. -06/16: Lasix held and Plavix held, daily weights, monitor respiratory status -06/17: Patient seems to be slightly volume down based on labs so Lasix are held, continue daily weights and I's and O's 6. Concern for liver fibrosis Follows with Dr. Muir, see his H&P on 06/15 for further details. In short, patient has conflicting results that could be indicative of possible liver fibrosis. Per Dr. Muir, patient ideally would need liver biopsy for ultimate determination but given he is on 2 blood thinners and has poor functional status, liver biopsy is contraindicated at this point. ? Defer to GI for further management. -06/16: If patient able to swallow after EGD will need to resume his lactulose -06/17: Lactulose resumed Chronic medical conditions: ? History of aortic stenosis s/p artificial aortic valve replacement: Anticoagulation management as noted above. ? Nicotine dependence: NRT as needed. ? Chronic pain: Continue home buprenorphine patch. DVT prophylaxis: SCDs CODE STATUS: DNR CCA, DO NOT INTUBATE Total clinical time spent by myself addressing the patient's medical issues, reviewing all the data, and collaborating with patient's care team: 36 minutes. Charges/Coding Visit Charges Inpatient E&M: 11239 Subs Hosp L2
[2023-06-17] MEDS: Pantoprazole Sodium 40 MG Tablet PO ×2 (09:42→22:52)
[2023-06-17] MEDS: Ferrous Sulfate 325 MG Tablet PO (09:42)
[2023-06-17] MEDS: Lactulose 20 GM/30 ML UDC PO ×2 (09:42→22:51)
[2023-06-17] MEDS: Amiodarone 200 MG Tablet PO (09:42)
[2023-06-17] MEDS: Cholecalciferol (VIT D3) 25 MCG TABLET (1,000 UNITS) PO (09:43)
[2023-06-17] MEDS: Metoprolol(XL)Succ 50 MG Tablet PO (09:45)
[2023-06-17 10:28] LABS: Pathologist Review Reviewed
--- NOTE | 2023-06-17 15:13 | CASEMGMT ---
Discharge Planning A list of?HH providers including quality and resource use data and consistent with the patient's preferred geographic region, medical needs, and insurance network was created in [employer] Guide.? This list was provided to the RN ALEXANDER. Maria Recinos, Discharge Planning Asst
--- NOTE | 2023-06-17 15:25 | CASEMGMT ---
Addendum entered by Lily Murrell 06/17/23 16:12: Received call back from [facility] and they are able to accept patient with planned start of care for Tuesday. SURY MUNOZ updated patient and daughter. Original Note: SURY MUNOZ in to discuss needs at discharge. Review recommendations or HHC at discharge. Daughter at bedside. Patient agreeable. A list of C providers including quality and resource use data and consistent with the patient?s preferred geographical region, medical needs, and insurance network were provided from the [employer] Guide. Patient prefers [facility]. SURY MUNOZ called and made referral awaiting acceptance. Patient denied further needs at discharge. Patient and daughter had no further questions or concerns.
--- NOTE | 2023-06-17 17:25 | EX.PCM.PN.GI ---
Subjective Subjective Patient underwent an upper endoscopy yesterday for esophageal dysphagia to liquids and solids. 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 He was treated with esophageal dilation and Botox to his esophagus. He has been tolerating a clear liquid diet and has been advanced to full liquid diet. Objective Data Objective Data Vital Signs: Vital Signs Temp Pulse Resp BP Pulse Ox O2 Del Method 97.4 F L 60 16 115/61 97 Room Air 06/17/23 15:39 06/17/23 15:39 06/17/23 15:39 06/17/23 15:39 06/17/23 15:39 06/17/23 15:39 Oxygen Delivery Method Room Air Weight: 135 lb 5.821 oz Body Mass Index (BMI) 19.4 Intake & Output: Intake and Output for Last 24 Hours 06/15/23 06/16/23 06/17/23 23:59 23:59 23:59 Intake Total 1000 / 1070 676.0 / 676.0 600 / 600 Output Total 600 / 600 Balance 1000 / 1070 76.0 / 76.0 600 / 600 Medical Nutrition Assessment Dietitian: Malnutrition Criteria Met Start: 06/16/23 10:39 Freq: Status: Active Protocol: Document 06/16/23 10:39 AG (Rec: 06/16/23 10:39 AG Desktop) Nutrition Malnutrition Evidence of Malnutrition Exists Yes Malnutrition (severe): Chronic Evidenced By Suboptimal Energy Intake ( Severe),Weight Loss (Severe) Clinical Problem Chronic Disease or Condition Related Malnutrition Etiology severe, chronic malnutrition related to inadequate energy intake, dysphagia Signs/Symptoms as evidenced by unintentional wt loss of 14.1#/9% wt loss < 3 months, estimated PO intake meeting < 75% of estimated energy needs > 3 months Status Active Problem Recommendation Dietitian Recommendations/Changes recommend advance diet as tolerated to regular- texture/ consistency per TRAINS SERVICE CONDUCTOR; ensure plus high protein 120mL 4x/day w/ medpass when diet advanced . Consider enteral nutrition support if unable to advance PO diet, consult RDN for further recs as needed. Lab / Micro Data 06/17/23 05:50 06/17/23 05:50 Labs: Laboratory Results - last 24 hr 06/16/23 05:35: Diff Path Review Reviewed 06/17/23 05:50: WBC 6.8, RBC 2.69 L, Hgb 8.0 L, Hct 26.4 L, MCV 98.1 H, MCH 29.7, MCHC 30.3 L, RDW Std Deviation 59.9 H, RDW Coeff of Kalyan 16.8 H, Plt Count 155, MPV 10.5, Immature Gran % (Auto) 0.600, Neut % (Auto) 91.3 H, Lymph % (Auto) 3.8 L, [place] % (Auto) 4.3, Eos % (Auto) 0.0, Baso % (Auto) 0.0, Absolute Neuts (auto) 6.2, Absolute Lymphs (auto) 0.26 L, Nucleated RBC % 0, Differential Comment COMMENT, PT 13.5, INR 1.0, Sodium 141, Potassium 4.0, Chloride 111 H, Carbon Dioxide 26.0, Anion Gap 4 L, BUN 32 H, Creatinine 2.00 H, Estim Creat Clear Calc 23.45, Est GFR (MDRD) Af Amer 41 L, Est GFR (MDRD) Non-Af 34 L, BUN/Creatinine Ratio 16.0, Glucose 139 H, Calcium 8.2 L Physical Exam Narrative General: Alert, oriented, no apparent distress HEENT: Atraumatic, normocephalic Eyes: Anicteric, normal conjunctiva, extraocular movements grossly intact Neck: Supple Respiratory: Clear to auscultation bilaterally, normal respiratory effort Cardiovascular: Regular rate GI: Soft, nontender, nondistended Extremities: No edema Musculoskeletal: Moving all extremities Neuro: No overt focal neurological deficits Skin: No rashes appreciated Psych: Cooperative Assessment & Plan Assessment/Plan (1) Dysphagia: QUALIFIERS: Dysphagia type: esophageal phase Qualified Code(s): R13.19 - Other dysphagia PLAN: Plan Patient is an 83-year-old male who presented to [facility] ED on 06/15/2023 with worsening dysphagia. Dysphagia, concern for esophageal spasms Complex GI history, follows with Dr. Muir, see his H&P note from 06/15 for further details. Patient had EGD done on 06/15 for dysphagia, dilation done during EGD; abnormal esophageal motility suspicious for esophageal spasm. Patient discharged home from endoscopy but had severe dysphagia with any food or drink at home, came back to the ED on afternoon of 06/15. ? If ok by speech therapy he can be advanced to a solid food diet tomorrow. Paroxysmal atrial fibrillation on Coumadin, supratherapeutic INR Follows with cardiology, last office visit on 04/07/2023. Notably had prolonged hospitalization in February with several complications as noted in HPI. Noted at cardiology office visit that patient has history of paroxysmal A-fib, recent pacemaker interrogation showed atrial tachycardia. He was continued on Toprol 100 mg twice daily, amiodarone 200 mg daily, warfarin with goal INR 2.5-3.5. INR was noted to be supratherapeutic on recent admission in April, had significant GI bleed from multiple oozing gastric ulcers at that time; INR improved to normal range with Kcentra and vitamin K. Now again with supratherapeutic INR of 6.3 on 06/14, repeat INR 7.2 on 06/15. Patient has held his home Coumadin for the last 2 days, and he and his daughter state that his dose has been decreased multiple times recently. Have concern that patient's possible liver fibrosis as noted below may be causing poor clearance of Coumadin, leading to an elevated INR. No active signs of bleeding noted. ? Given 1 dose of p.o. vitamin K 5 mg in the ED. Repeat INR tomorrow morning. Continue to hold on any anticoagulation. Monitor telemetry. Continue home amiodarone. Notably patient's Toprol was decreased to 50 mg daily recently due to hypotension, continue Toprol at lower dose. Monitor closely for signs of bleeding. Chronic iron deficiency anemia, recent GI bleed Hemoglobin 10.0 on admit, MCV 95. Hemoglobin on recent admission ranged between 7 and 9. Had recent admission for significant upper GI bleed as noted in HPI. No BRBPR or dark stools noted per patient and daughter on admission. ? Follow-up a.m. CBC. Charges/Coding Visit Charges Inpatient E&M: 28936 [facility] Hosp L3
[2023-06-17] MEDS: Enoxaparin 60 MG/0.6 ML Syringe SC (22:51)
[2023-06-17] MEDS: 0.9% Saline Lock 10 ML Syringe IV (22:51)
[2023-06-17] MEDS: Atorvastatin Calcium 80 MG Tablet PO (22:52)
[2023-06-17] MEDS: Folic Acid 1 MG Tablet PO (22:52)
[2023-06-17] MEDS: Zolpidem Tartrate 5 MG Tablet 10 MG PO (22:52)
[2023-06-18] VITALS (9 sets, daily range): BP systolic 117–126; BP diastolic 53–66; PULSE 59–79; RESP 14–18; TEMP 36.6–37.1; O2SAT 94–98; BMI 19.5
[2023-06-18 06:29] LABS: Absolute Lymphocyte Count 0.37 X10^3/uL (0.83-4.51); Absolute Neutrophil Count 4.2 X10^3/uL (2.0-7.7); Hematocrit 27.1 % (40-54); Hemoglobin 8.1 g/dL (13.0-16.5); Lymphocyte # 0.37 X10^3/ul (0.83-4.51); Lymphocyte % 7.4 % (19-41); Mean Corp Hgb Conc 29.9 g/dL (32-36); Mean Corpuscular Hgb 30.1 pg (27.0-32.0); Mean Corpuscular Volume 100.7 fL (80-94); Mean Platelet Vol. 10.3 fl (6.2-12.0); Monocyte# 0.38 X10^3/uL; Monocyte% 7.6 % (0-10); NRBC Flagged by Analyzer 0 % (0-5); Neutrophil # 4.24 X10^3/uL (2.7-7.7); Neutrophil % 84.8 % (47-70); POSITIVE DIFFERENTIAL YES; Platelet Count 146 K/mm3 (150-450); RBC Distribution Width CV 17.5 % (11.6-14.6); RBC Distribution Width SD 63.5 fl (35.1-43.9); Red Blood Count 2.69 M/mm3 (4.6-6.2)
[2023-06-18 06:55] LABS: Differential Indicated SCAN CRITERIA MET
[2023-06-18] MEDS: Ipratropium/Albuterol Sulfate 3 ML AMPUL.NEB INHALATION ×3 (06:55→19:58)
[2023-06-18 06:56] LABS: International Normalized Ratio 1.2; Prothrombin Time (Protime)PT. 15.6 SECONDS (11.7-14.9)
[2023-06-18 08:32] LABS: Anion Gap 4 (5-15); BUN 26 mg/dL (7-18); BUN/Creat Ratio 14.4 RATIO (10-20); Calcium,Total 8.5 mg/dL (8.5-10.1); Chloride 112 mmol/L (98-107); EST Glomerular Filtration Rate 38 mL/min (>60); Est Glom Filt Rate - Afr Amer 46 mL/min (>60); Estimated Creatinine Clearance 26.18 ml/min; Glucose 87 mg/dL (74-106); Potassium 3.7 mmol/L (3.5-5.1); Sodium Level 143 mmol/L (136-145)
[2023-06-18] MEDS: Lactulose 20 GM/30 ML UDC PO ×2 (09:37→21:57)
[2023-06-18] MEDS: Sodium Ferric Gluconat/Sucrose 250 MG in 0.9% Normal Saline (250mL Bag) 250 ML 135 MG IV (09:37)
[2023-06-18] MEDS: Ferrous Sulfate 325 MG Tablet PO (09:38)
[2023-06-18] MEDS: Cholecalciferol (VIT D3) 25 MCG TABLET (1,000 UNITS) PO (09:38)
[2023-06-18] MEDS: Clopidogrel Bisulfate 75 MG Tablet PO (09:38)
[2023-06-18] MEDS: Pantoprazole Sodium 40 MG Tablet PO ×2 (09:38→21:58)
[2023-06-18] MEDS: Amiodarone 200 MG Tablet PO (09:38)
[2023-06-18] MEDS: Metoprolol(XL)Succ 50 MG Tablet PO (09:47)
[2023-06-18 09:54] LABS: Differential Comment SCANNED
--- NOTE | 2023-06-18 10:08 | PN.HOSP_ITS ---
Reason for Visit Reason for Visit: Diagnoses Acute posthemorrhagic anemia (06/15/23) Encephalopathy, unspecified (06/15/23) Acute kidney failure, unspecified (06/15/23) Dysphagia, unspecified (06/15/23) Other dysphagia (06/15/23) Abnormal coagulation profile (06/15/23) Subjective Subjective Tolerating full liquids thus far, no acute complaints today Objective Data Objective Data Vital Signs: Vital Signs Temp Pulse Resp BP Pulse Ox O2 Del Method 98.2 F 79 14 117/53 L 98 Room Air 06/18/23 09:53 06/18/23 09:53 06/18/23 09:53 06/18/23 09:53 06/18/23 09:53 06/18/23 09:53 Oxygen Delivery Method Room Air Weight: 61.7 kg Body Mass Index (BMI) 19.5 Intake & Output: Intake and Output for Last 24 Hours 06/16/23 06/17/23 06/18/23 23:59 23:59 23:59 Intake Total 676.0 / 676.0 900 / 900 Output Total 600 / 600 Balance 76.0 / 76.0 900 / 900 Medical Nutrition Assessment Dietitian: Malnutrition Criteria Met Start: 06/16/23 10:39 Freq: Status: Active Protocol: Document 06/16/23 10:39 AG (Rec: 06/16/23 10:39 AG Desktop) Nutrition Malnutrition Evidence of Malnutrition Exists Yes Malnutrition (severe): Chronic Evidenced By Suboptimal Energy Intake ( Severe),Weight Loss (Severe) Clinical Problem Chronic Disease or Condition Related Malnutrition Etiology severe, chronic malnutrition related to inadequate energy intake, dysphagia Signs/Symptoms as evidenced by unintentional wt loss of 14.1#/9% wt loss < 3 months, estimated PO intake meeting < 75% of estimated energy needs > 3 months Status Active Problem Recommendation Dietitian Recommendations/Changes recommend advance diet as tolerated to regular- texture/ consistency per ENERGY ADVISOR; ensure plus high protein 120mL 4x/day w/ medpass when diet advanced . Consider enteral nutrition support if unable to advance PO diet, consult RDN for further recs as needed. Lab / Micro Data 06/18/23 05:52 06/18/23 05:52 Labs: Laboratory Results - last 24 hr 06/16/23 05:35: Diff Path Review Reviewed 12/02/23 05:52: WBC 5.0, RBC 2.69 L, Hgb 8.1 L, Hct 27.1 L, MCV 100.7 H, MCH 30.1, MCHC 29.9 L, RDW Std Deviation 63.5 H, RDW Coeff of Kalyan 17.5 H, Plt Count 146 L, MPV 10.3, Immature Gran % (Auto) 0.200, Neut % (Auto) 84.8 H, Lymph % (Auto) 7.4 L, Woods % (Auto) 7.6, Eos % (Auto) 0.0, Baso % (Auto) 0.0, Absolute Neuts (auto) 4.2, Absolute Lymphs (auto) 0.37 L, Nucleated RBC % 0, Differential Comment SCANNED, PT 15.6 H, INR 1.2, Sodium 143, Potassium 3.7, Chloride 112 H, Carbon Dioxide 27.0, Anion Gap 4 L, BUN 26 H, Creatinine 1.80 H, Estim Creat Clear Calc 26.18, Est GFR (MDRD) Af Amer 46 L, Est GFR (MDRD) Non-Af 38 L, BUN/Creatinine Ratio 14.4, Glucose 87, Calcium 8.5 Physical Exam Narrative General: Alert, oriented, no apparent distress HEENT: Atraumatic, normocephalic Eyes: Anicteric, normal conjunctiva, extraocular movements grossly intact Neck: Supple Respiratory: Clear to auscultation bilaterally, normal respiratory effort Cardiovascular: Regular rate GI: Soft, nontender, nondistended Extremities: No edema Musculoskeletal: Moving all extremities Neuro: No overt focal neurological deficits Skin: No rashes appreciated Psych: Cooperative Assessment & Plan Assessment/Plan (1) Dysphagia: QUALIFIERS: Dysphagia type: esophageal phase Qualified Code(s): R13.19 - Other dysphagia PLAN: Plan Patient is an 83-year-old male who presented to [facility] ED on 06/15/2023 with worsening dysphagia. 1. Dysphagia, concern for esophageal spasms Complex GI history, follows with Dr. Muir, see his H&P note from 06/15 for further details. Patient had EGD done on 06/15 for dysphagia, dilation done during EGD; Dr. Muir noted abnormal esophageal motility suspicious for e sophageal spasm. Patient discharged home from endoscopy but had severe dysphagia with any food or drink at home, came back to the ED on afternoon of 06/15. ? Admit under inpatient status to [facility]. GI consulted. Per Dr. Muir, plan is for upper endoscopy tomorrow with likely Botox injection for suspected esophageal spasms. N.p.o. for now. -06/16: Patient for EGD today, maintain n.p.o. -06/17: Patient had EGD which showed abnormal esophageal motility suspicious for spasm and was treated with Botox, had moderate Schatzki ring which was dilated. Tolerated procedure and was started on clear liquid diet. Evaluated by speech today and given modified recommendations based on clear liquid diet and will continue to progress with recommendations once cleared for further diet by GI. Continue to work with speech therapy. Continue PPI, patient advance to full diet today -06/18: Per GI note would like speech therapy to assess and advance to a solid food if he does well 2. Paroxysmal atrial fibrillation on Coumadin, supratherapeutic INR Follows with cardiology, last office visit on 04/07/2023. Notably had prolonged hospitalization in February with several complications as noted in HPI. Noted at cardiology office visit that patient has history of paroxysmal A-fib, recent pacemaker interrogation showed atrial tachycardia. Was continued on Toprol 100 mg twice daily, amiodarone 200 mg daily, warfarin with goal INR 2.5-3.5. INR was noted to be supratherapeutic on recent admission in April, had significant GI bleed from multiple oozing gastric ulcers at that time; INR improved to normal range with Kcentra and vitamin K. Now again with supratherapeutic INR of 6.3 on 06/14, repeat INR 7.2 on 06/15. Patient has held his home Coumadin for the last 2 days, and he and his daughter state that his dose has been decreased multiple times recently. Have concern that patient's possible liver fibrosis as noted below may be causing poor clearance of Coumadin, leading to an elevated INR. No active signs of bleeding noted. ? Given 1 dose of p.o. vitamin K 5 mg in the ED. Repeat INR tomorrow morning. Continue to hold on any anticoagulation. Monitor telemetry. Continue home ami odarone. Notably patient's Toprol was decreased to 50 mg daily recently due to hypotension, continue Toprol at lower dose. Monitor closely for signs of bleeding. -06/16: Still had elevated INR so patient given further vitamin K and PCC, daily INR. Continue Amio. Patient has INR goal of 2.5-3.5 and has a [place] Rachid aortic valve, has had problems being supratherapeutic in the past. This will ne ed to be monitored carefully moving forward and will need to explore if patient needs bridged on discharge -06/17: INR 1 today, previously was bridged back to Coumadin, discussed with GI, okay to resume anticoagulation and antiplatelet we will resume Coumadin at a dose decrease of 15 %/week per RE-LY trial recommendations and start patient on 5 mg daily with Lovenox bridge -06/18: INR 1.2, continue present management with bridge 3. SALVADOR on CKD stage 3 Creatinine 2.30 on admit, BUN 24. Baseline creatinine 1.4-1.7. Suspect mild prerenal SALVADOR in setting of poor p.o. intake recently. Notably patient's CBC values appeared hemoconcentrated, would be consistent with dehydration and prerenal SALVADOR. ? Follow-up a.m. BMP. Monitor urine output. Can consider IV fluids as needed but will need to be very careful with fluid administration given patient's severe HFrEF as noted below. -06/16: Improving, has variable baseline but is close to her previous values, will hold Lasix again today, daily weights, patient n.p.o., will consider resuming Lasix tomorrow but will monitor clinically -06/17: Creatinine similar to yesterday with slight uptrend in BUN, continue to hold Lasix and assess if patient able to improve with oral intake now that he is able to have clear liquids, hesitant to give fluids and to avoid overload however if continues to worsen and has suboptimal p.o. intake may need to give gentle IVF -06/18: Improved today, continue present management 4. Chronic iron deficiency anemia, recent GI bleed Hemoglobin 10.0 on admit, MCV 95. Hemoglobin on recent admission ranged between 7 and 9. Had recent admission for significant upper GI bleed as noted in HPI. No BRBPR or dark stools noted per patient and daughter on admission. ? Follow-up a.m. CBC. -06/16:Hemoglobin 8.6 down from 10 yesterday however appears that this is actually his baseline and no evidence of acute blood loss -06/17: Hemoglobin 8.0, no evidence of ongoing blood loss 5. 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 Echo from 02/2023 showed an EF of 20 to 30%. Had left heart cath done on 03/11/2023 with successful intervention of the mid LAD with 2 drug-eluting stents. S/p [employer]IN[employer]IVE[employer] INSPECTOR-D implantation on contralateral side on 03/22/2023. Had significant hypotension and bradycardia during that admission, patient's losartan, Lasix and Aldactone were held on that discharge. Since that cardiology visit, patient's dose of Toprol has been decreased as noted above, appears he has been taking his losartan, Lasix, Aldactone as he was previously. ? Will hold home Plavix for tomorrow morning given supratherapeutic INR and b leeding risk with GI intervention, restart as soon as able. Continue home Toprol at reduced dose. Hold home losartan, Lasix, Aldactone, Jardiance for now given SALVADOR as noted above, restart as needed. Continue home atorvastatin. -06/16: Lasix held and Plavix held, daily weights, monitor respiratory status -06/17: Patient seems to be slightly volume down based on labs so Lasix are held, continue daily weights and I's and O's -06/18: Continue to monitor weight, patient doing well with present management stable continue at this time 6. Concern for liver fibrosis Follows with Dr. Muir, see his H&P on 06/15 for further details. In short, patient has conflicting results that could be indicative of possible liver fibrosis. Per Dr. Muir, patient ideally would need liver biopsy for ultimate determination but given he is on 2 blood thinners and has poor functional status, liver biopsy is contraindicated at this point. ? Defer to GI for further management. -06/16: If patient able to swallow after EGD will need to resume his lactulose -06/17: Lactulose resumed Chronic medical conditions: ? History of aortic stenosis s/p artificial aortic valve replacement: Anticoagulation management as noted above. ? Nicotine dependence: NRT as needed. ? Chronic pain: Continue home buprenorphine patch. DVT prophylaxis: SCDs CODE STATUS: DNR CCA, DO NOT INTUBATE Total clinical time spent by myself addressing the patient's medical issues, reviewing all the data, and collaborating with patient's care team: 36 minutes. Charges/Coding Visit Charges Inpatient E&M: 03835 Subs Hosp L2
[2023-06-18] MEDS: Folic Acid 1 MG Tablet PO (21:57)
[2023-06-18] MEDS: Atorvastatin Calcium 80 MG Tablet PO (21:57)
[2023-06-18] MEDS: Enoxaparin 60 MG/0.6 ML Syringe SC (21:57)
[2023-06-18] MEDS: Zolpidem Tartrate 5 MG Tablet 10 MG PO (21:57)
[2023-06-19 03:35] VITALS: BP 124/68; PULSE 60; RESP 15; TEMP 36.8; O2SAT 98
[2023-06-19 06:00] VITALS: BMI 19.4
[2023-06-19 06:54] VITALS: PULSE 63; RESP 16; O2SAT 95
[2023-06-19] MEDS: Ipratropium/Albuterol Sulfate 3 ML AMPUL.NEB INHALATION (06:54)
[2023-06-19 07:16] LABS: Absolute Lymphocyte Count 0.33 X10^3/uL (0.83-4.51); Absolute Neutrophil Count 3.1 X10^3/uL (2.0-7.7); Basophil# 0.01 X10^3/uL; Basophil% 0.3 % (0-1); Eosinophil# 0.02 X10^3/uL; Eosinophils% 0.5 % (0-5); Hematocrit 28.7 % (40-54); Hemoglobin 8.6 g/dL (13.0-16.5); Lymphocyte # 0.33 X10^3/ul (0.83-4.51); Lymphocyte % 8.5 % (19-41); Mean Corpuscular Hgb 30.2 pg (27.0-32.0); Mean Corpuscular Volume 100.7 fL (80-94); Mean Platelet Vol. 10.9 fl (6.2-12.0); Monocyte# 0.36 X10^3/uL; Monocyte% 9.2 % (0-10); NRBC Flagged by Analyzer 0.8 % (0-5); Neutrophil # 3.13 X10^3/uL (2.7-7.7); Neutrophil % 80.2 % (47-70); POSITIVE DIFFERENTIAL YES; Platelet Count 138 K/mm3 (150-450); RBC Distribution Width CV 17.5 % (11.6-14.6); RBC Distribution Width SD 63.3 fl (35.1-43.9); Red Blood Count 2.85 M/mm3 (4.6-6.2); White Blood Count 3.9 K/mm3 (4.4-11.0)
[2023-06-19 07:29] LABS: International Normalized Ratio 1.3; Prothrombin Time (Protime)PT. 16.7 SECONDS (11.7-14.9)
[2023-06-19 08:04] LABS: Anion Gap 3 (5-15); BUN 20 mg/dL (7-18); BUN/Creat Ratio 12.3 RATIO (10-20); Calcium,Total 8.1 mg/dL (8.5-10.1); Chloride 114 mmol/L (98-107); Creatinine, Serum 1.62 mg/dL (0.70-1.30); EST Glomerular Filtration Rate 43 mL/min (>60); Est Glom Filt Rate - Afr Amer 52 mL/min (>60); Glucose 95 mg/dL (74-106); Potassium 3.6 mmol/L (3.5-5.1); Sodium Level 144 mmol/L (136-145)
[2023-06-19 08:26] LABS: Differential Indicated SCAN CRITERIA MET
[2023-06-19 08:42] VITALS: BP 118/61; PULSE 60; RESP 16; TEMP 36.7; O2SAT 93
[2023-06-19 08:54] VITALS: BP 118/61; PULSE 60
[2023-06-19] MEDS: Lactulose 20 GM/30 ML UDC PO (08:54)
[2023-06-19] MEDS: Ferrous Sulfate 325 MG Tablet PO (08:54)
[2023-06-19] MEDS: Amiodarone 200 MG Tablet PO (08:54)
[2023-06-19] MEDS: Pantoprazole Sodium 40 MG Tablet PO (08:54)
[2023-06-19] MEDS: Metoprolol(XL)Succ 50 MG Tablet PO (08:54)
[2023-06-19] MEDS: Clopidogrel Bisulfate 75 MG Tablet PO (08:54)
[2023-06-19] MEDS: Cholecalciferol (VIT D3) 25 MCG TABLET (1,000 UNITS) PO (08:54)
[2023-06-19 11:33] LABS: Differential Comment SCANNED
[2023-06-19 12:38] VITALS: BP 131/67; PULSE 61; RESP 16; TEMP 36.9; O2SAT 96
[2023-06-19] MEDS: BUPRENORPHINE 10 MCG/HR PATCH 2 PATCH TD (12:42)
--- NOTE | 2023-06-19 13:49 | DCINST_ITS ---
Discharge Instructions Diet Discharge Diet: Light diet - advance as tolerated Activity Discharge Activity: Return to Normal Activity Follow Up Care Test Results: Test results from this visit will be discussed in further detail at your follow- up appointment, if applicable. Discharge Plan Admission Admit Date/Time: 06/15/23 18:37 Primary Reason for Your Visit: Difficulty swallowing Attending Provider: Kaitlynn Dasilva Primary Care Provider: Guillermo Pritchard Consulting Providers: Syed Rincon Instructions Patient Instructions: Lovenox Prefilled Syringe 60 mg/0.6 mL Additional Instructions / Restrictions: DISCHARGE INSTRUCTIONS PLEASE READ *Please take this with you to your next doctors appointment* -You will be discharged on Lovenox 60 mg subcutaneously at night, he will only need to use this once daily given your kidney function. You will be given a dose of Lovenox before you leave -You will be taking 5 mg of Coumadin daily and will need your INR checked in 3 days, further checks and adjustments at the discretion of your prescribing phys ician. Would also recommend repeat CBC to check your blood counts and your platelet counts, please call your primary care physician's office upon discharge to obtain an order for labs -You will need to follow-up with Dr. Muir with GI in his office upon discharge. Please call his office to schedule your hospital follow-up appointment (ph. [phone]) -Please call your primary care provider's office upon discharge to schedule a hospital follow up within 1 week. -For any concerning signs or symptoms please call 911 or proceed to the nearest emergency department Discharge Orders/Prescriptions Prescriptions: New enoxaparin 60 mg/0.6 mL Syringe 60 mg subcut QHS Qty: 6 0RF Continued ipratropium-albuterol 0.5 mg-3 mg(2.5 mg base)/3 mL solution for nebulization 3 ml INHALATION 4X/DAY nitroglycerin 0.4 mg tablet, sublingual 0.4 mg SUBLINGUAL Q5M PRN (Reason: Chest Pain) Qty: 25 3RF lactulose 10 gram/15 mL (15 mL) solution 20 g PO DAILY Qty: 1440 0RF ferrous sulfate 325 mg (65 mg iron) tablet 325 mg PO DAILY Patient Comments: iron supplement pantoprazole 40 mg tablet,delayed release (DR/EC) 40 mg PO BID cholecalciferol (vitamin D3) 1,000 UNIT tablet 1,000 unit PO DAILY albuterol sulfate 90 MCG aerosol powdr breath activated 2 puff INHALATION Q4H PRN (Reason: Shortness Of Breath) Patient Comments: folic acid 1 MG tablet 1 mg PO QHS Stiolto Respimat 2.5-2.5 mcg/actuation Mist 1 puff INHALATION BID buprenorphine 15 mcg/hour patch weekly 20 mcg transdermal FULLER zolpidem 10 mg tablet 10 mg PO QHS Patient Comments: TAKE 1 TABLET BY MOUTH EVERY DAY clopidogrel 75 mg tablet 75 mg PO DAILY rosuvastatin [Crestor] 40 mg tablet 40 mg PO DAILY metoprolol succinate 100 mg tablet extended release 24 hr 50 mg PO DAILY potassium chloride 10 mEq tablet extended release 10 meq PO DAILY Qty: 30 11RF furosemide 20 mg tablet 20 mg PO DAILY Qty: 90 3RF amiodarone 200 mg tablet 200 mg PO DAILY Qty: 90 3RF Jardiance 10 mg tablet 10 mg PO DAILY Qty: 90 3RF Changed warfarin 5 mg tablet 5 mg PO DINNER Qty: 30 0RF Protocol: Dose Management Condition: Tuesday Dose/Route: 5 mg Instruction: 1 x 5 mg tablet Condition: Tuesday Dose/Route: 5 mg Instruction: 1 x 5 mg tablet Condition: Tuesday Dose/Route: 0 mg Instruction: 0 tablets Condition: Tuesday Dose/Route: 0 mg Instruction: 0 tablets Condition: Dose/Route: 5 mg Instruction: 1 x 5 mg tablet Condition: Tuesday Dose/Route: 5 mg Instruction: 1 x 5 mg tablet Condition: Tuesday Dose/Route: 5 mg Instruction: 1 x 5 mg tablet Protocol Text: Adjustment Start Date: Tuesday06/14/23 INR Value: 6.3 INR Date: 06/14/23 Recheck Date: 06/16/23 Discontinued warfarin 7.5 mg tablet 7.5 mg PO [id number] Referrals / Follow Up: Guillermo Pritchard MD [Primary Care Provider] - Within 1 Week Fazal Muir DO [Med Staff - Active Staff] - ( -You will need to follow-up with Dr. Muir with GI in his office upon discharge. Please call his office to schedule your hospital follow-up appointment (ph. [phone])) Disposition Disposition (needs filled in before D/C Order can be placed): Home Health Service
--- NOTE | 2023-06-19 14:14 | DS.PCM_ITS ---
Providers Date of Admission: 06/15/23 Date of Discharge: 06/19/23 Primary Care Physician: Dr. Guillermo Pritchard MD Consultations 06/15/23 20:27 Consult: Gastroenterology Routine Consulting Provider: [facility] Reason for Consult: severe dysphagia EMERGENT Consult: No MD Notified: Yes Date Notified: 06/16/23 Time Notified: 05:33 Method of Notification: Text Reason For Visit: DYSPHAGIA Diagnosis Discharge Diagnosis (1) Dysphagia: Status: Acute Code(s): R13.10 - Dysphagia, unspecified Qualifiers: Dysphagia type: esophageal phase Qualified Code(s): R13.19 - Other dysphagia (2) Atrial fibrillation: Status: Acute Code(s): I48.91 - Unspecified atrial fibrillation (3) Essential hypertension: Status: Acute Code(s): I10 - Essential (primary) hypertension (4) History of left heart catheterization: Status: Acute Code(s): Z98.890 - Other specified postprocedural states (5) Persistent atrial fibrillation: Status: Acute Code(s): I48.19 - Other persistent atrial fibrillation (6) Presence of biventricular implantable cardioverter-defibrillator (ICD): Status: Acute Code(s): Z95.810 - Presence of automatic (implantable) cardiac defibrillator (7) History of prosthetic heart valve: Status: Acute Code(s): Z95.2 - Presence of prosthetic heart valve Plan #Dysphagia, concern for esophageal spasms #Moderate Schatzki ring #Small hiatal hernia #Paroxysmal atrial fibrillation on Coumadin, supratherapeutic INR #Hx mechanical AV valve #SALVADOR on CKD stage 3 #Chronic iron deficiency anemia, recent GI bleed #HFrEF, CAD with history of CABG and recent stenting x 2 in 02/2023, recent history of pacemaker infection s/p #Concern for liver fibrosis #Nicotine dependence: #Chronic pain: Medications at Discharge Home Medications albuterol sulfate 90 mcg/actuation breath activated powder inhaler 2 puff inhalation Q4H PRN Shortness Of Breath 09/25/15 cholecalciferol (vitamin D3) 25 mcg (1,000 unit) tablet 1,000 unit PO DAILY SUPPLEMENT 09/25/15 folic acid 1 mg tablet 1 mg PO QHS SUPPLEMENT 06/24/16 pantoprazole 40 mg tablet,delayed release 40 mg PO BID ACID REFLUX 01/02/18 tiotropium 2.5 mcg-olodaterol 2.5 mcg/actuation mist for inhalation (Stiolto Respimat) 1 puff inhalation BID ASTHMA 06/18/21 ipratropium 0.5 mg-albuterol 3 mg (2.5 mg base)/3 mL nebulization soln 3 ml inhalation 4X/DAY SHORTNESS OF BREATH 11/25/21 buprenorphine 15 mcg/hour weekly transdermal patch 20 mcg transdermal FULLER PAIN 08/24/22 nitroglycerin 0.4 mg sublingual tablet 0.4 mg sublingual Q5M PRN Chest Pain #25 tabs 09/17/22 clopidogrel 75 mg tablet 75 mg PO DAILY antiplatelet 03/29/23 rosuvastatin 40 mg tablet (Crestor) 40 mg PO DAILY cholesterol 03/29/23 lactulose 10 gram/15 mL (15 mL) oral solution 20 g (30 mL) PO DAILY #1,440 mL 04/04/23 furosemide 20 mg tablet 20 mg PO DAILY dose has been decreased #90 tabs 04/25/23 potassium chloride 10 mEq tablet,extended release 10 meq PO DAILY #30 tabs 04/25/23 amiodarone 200 mg tablet 200 mg PO DAILY afib #90 tabs 04/28/23 empagliflozin 10 mg tablet (Jardiance) 10 mg PO DAILY heart health #90 tabs 04/28/23 zolpidem 10 mg tablet 10 mg PO QHS sleep 05/03/23 ferrous sulfate 325 mg (65 mg iron) tablet 325 mg PO DAILY IRON SUPPLEMENT 05/24/23 metoprolol succinate 100 mg tablet,extended release 24 hr 50 mg PO DAILY 06/15/23 enoxaparin 60 mg/0.6 mL subcutaneous syringe 60 mg (0.6 mL) subcut QHS #6 mL 06/19/23 warfarin 5 mg tablet 5 mg PO DINNER BLOOD THINNER #30 tabs 06/19/23 Hospital Course Procedures EGD Summary of Care Provided Minutes Spent on Discharge: 32 Hospital Course: 83-year-old male history of A-fib, mechanical aortic valve, CHF, CKD, COPD, GERD, CAD presented to [facility] 06/15/2023 for worsening dysphagia. He had seen GI earlier in the day and had EGD done for dysphagia and there was concern for esophageal spasm, dilation was done and he was discharged home however upon returning home he was unable to swallow anything and felt that everything was getting stuck in his throat. He presented back to the hospital and GI consulted. He was taken for EGD 06/09 which again was suspicious for esophageal spasm and he was treated with Botox and had moderate Schatzki ring dilated. Tolerated procedure well and advancement of diet. When he presented initially of note he had an INR of 7.2 and this was reversed prior to his procedure, has history of aortic mechanical valve and A-fib and has required bridging multiple times in the past., Discussed with GI and patient okay for resumption of anticoagulation. He was started on a bridge. Doing very well with diet and discharged home in stable condition with the following discharge instructions: -You will be discharged on Lovenox 60 mg subcutaneously at night, he will only need to use this once daily given your kidney function. You will be given a dose of Lovenox before you leave -You will be taking 5 mg of Coumadin daily and will need your INR checked in 3 days, further checks and adjustments at the discretion of your prescribing physician. Would also recommend repeat CBC to check your blood counts and your platelet counts, please call your primary care physician's office upon discharge to obtain an order for labs -You will need to follow-up with Dr. Muir with [facility] in his office upon discharge. Please call his office to schedule your hospital follow-up appointme hunter (ph. [phone]) -Please call your primary care provider's office upon discharge to schedule a hospital follow up within 1 week. -For any concerning signs or symptoms please call 911 or proceed to the nearest emergency department Physical Exam Narrative General: Alert, oriented, no apparent distress HEENT: Atraumatic, normocephalic Eyes: Anicteric, normal conjunctiva, extraocular movements grossly intact Neck: Supple Respiratory: Clear to auscultation bilaterally, normal respiratory effort Cardiovascular: Regular rate GI: Soft, nontender, nondistended Extremities: No edema Musculoskeletal: Moving all extremities Neuro: No overt focal neurological deficits Skin: No rashes appreciated Psych: Cooperative Medical Records Data Medical Nutrition Assessment Dietitian: Malnutrition Criteria Met Start: 06/16/23 10:39 Freq: Status: Active Protocol: Document 06/16/23 10:39 AG (Rec: 06/16/23 10:39 AG Desktop) Nutrition Malnutrition Evidence of Malnutrition Exists Yes Malnutrition (severe): Chronic Evidenced By Suboptimal Energy Intake ( Severe),Weight Loss (Severe) Clinical Problem Chronic Disease or Condition Related Malnutrition Etiology severe, chronic malnutrition related to inadequate energy intake, dysphagia Signs/Symptoms as evidenced by unintentional wt loss of 14.1#/9% wt loss < 3 months, estimated PO intake meeting < 75% of estimated energy needs > 3 months Status Active Problem Recommendation Dietitian Recommendations/Changes recommend advance diet as tolerated to regular- texture/ consistency per SURFACE WATER MANAGER; ensure plus high protein 120mL 4x/day w/ medpass when diet advanced . Consider enteral nutrition support if unable to advance PO diet, consult RDN for further recs as needed. Weight / BMI Weight Weight: 61.5 kg Body Mass Index (BMI) 19.4 ABG / Lab / Microbiology Data 06/19/23 06:04 06/19/23 06:04 Laboratory: Laboratory Results - last 24 hr 06/19/23 06:04: WBC 3.9 L, RBC 2.85 L, Hgb 8.6 L, Hct 28.7 L, MCV 100.7 H, MCH 30.2, MCHC 30.0 L, RDW Std Deviation 63.3 H, RDW Coeff of Kalyan 17.5 H, Plt Count 138 L, MPV 10.9, Immature Gran % (Auto) 1.300 H, Neut % (Auto) 80.2 H, Lymph % (Auto) 8.5 L, Harvey % (Auto) 9.2, Eos % (Auto) 0.5, Baso % (Auto) 0.3, Absolute Neuts (auto) 3.1, Absolute Lymphs (auto) 0.33 L, Nucleated RBC % 0.8, Differential Comment SCANNED, Diff Path Review November foll, PT 16.7 H, INR 1.3, Sodium 144, Potassium 3.6, Chloride 114 H, Carbon Dioxide 27.0, Anion Gap 3 L, BUN 20 H, Creatinine 1.62 H, Estim Creat Clear Calc 29.00, Est GFR (MDRD) Af Amer 52 L, Est GFR (MDRD) Non-Af 43 L, BUN/Creatinine Ratio 12.3, Glucose 95, Calcium 8.1 L D/C Instructions Discharge Diet: Light diet - advance as tolerated Meaningful Use Info Meaningful Use Diagnoses (Choose all that apply): None applicable Discharge Plan Admission Admit Date/Time: 06/15/23 18:37 Primary Reason for Your Visit: Difficulty swallowing Attending Provider: Kaitlynn Dasilva Primary Care Provider: Guillermo Pritchard Consulting Providers: Syed Rincon Instructions Patient Instructions: Lovenox Prefilled Syringe 60 mg/0.6 mL Additional Instructions / Restrictions: DISCHARGE INSTRUCTIONS PLEASE READ *Please take this with you to your next doctors appointment* -You will be discharged on Lovenox 60 mg subcutaneously at night, he will only need to use this once daily given your kidney function. You will be given a dose of Lovenox before you leave -You will be taking 5 mg of Coumadin daily and will need your INR checked in 3 days, further checks and adjustments at the discretion of your prescribing physician. Would also recommend repeat CBC to check your blood counts and your platelet counts, please call your primary care physician's office upon discharge to obtain an order for labs -You will need to follow-up with Dr. Muir with GI in his office upon discharge. Please call his office to schedule your hospital follow-up marcos ointment (ph. [phone]) -Please call your primary care provider's office upon discharge to schedule a hospital follow up within 1 week. -For any concerning signs or symptoms please call 911 or proceed to the nearest emergency department Discharge Orders/Prescriptions Prescriptions: New enoxaparin 60 mg/0.6 mL Syringe 60 mg subcut QHS Qty: 6 0RF Continued ipratropium-albuterol 0.5 mg-3 mg(2.5 mg base)/3 mL solution for nebulization 3 ml INHALATION 4X/DAY nitroglycerin 0.4 mg tablet, sublingual 0.4 mg SUBLINGUAL Q5M PRN (Reason: Chest Pain) Qty: 25 3RF lactulose 10 gram/15 mL (15 mL) solution 20 g PO DAILY Qty: 1440 0RF ferrous sulfate 325 mg (65 mg iron) tablet 325 mg PO DAILY Patient Comments: iron supplement pantoprazole 40 mg tablet,delayed release (DR/EC) 40 mg PO BID cholecalciferol (vitamin D3) 1,000 UNIT tablet 1,000 unit PO DAILY albuterol sulfate 90 MCG aerosol powdr breath activated 2 puff INHALATION Q4H PRN (Reason: Shortness Of Breath) Patient Comments: folic acid 1 MG tablet 1 mg PO QHS Stiolto Respimat 2.5-2.5 mcg/actuation Mist 1 puff INHALATION BID buprenorphine 15 mcg/hour patch weekly 20 mcg transdermal FULLER zolpidem 10 mg tablet 10 mg PO QHS Patient Comments: TAKE 1 TABLET BY MOUTH EVERY DAY clopidogrel 75 mg tablet 75 mg PO DAILY rosuvastatin [Crestor] 40 mg tablet 40 mg PO DAILY metoprolol succinate 100 mg tablet extended release 24 hr 50 mg PO DAILY potassium chloride 10 mEq tablet extended release 10 meq PO DAILY Qty: 30 11RF furosemide 20 mg tablet 20 mg PO DAILY Qty: 90 3RF amiodarone 200 mg tablet 200 mg PO DAILY Qty: 90 3RF Jardiance 10 mg tablet 10 mg PO DAILY Qty: 90 3RF Changed warfarin 5 mg tablet 5 mg PO DINNER Qty: 30 0RF Protocol: Dose Management Condition: Tuesday Dose/Route: 5 mg Instruction: 1 x 5 mg tablet Condition: Tuesday Dose/Route: 5 mg Instruction: 1 x 5 mg tablet Condition: Tuesday Dose/Route: 0 mg Instruction: 0 tablets Condition: Tuesday Dose/Route: 0 mg Instruction: 0 tablets Condition: Dose/Route: 5 mg Instruction: 1 x 5 mg tablet Condition: Tuesday Dose/Route: 5 mg Instruction: 1 x 5 mg tablet Condition: Tuesday Dose/Route: 5 mg Instruction: 1 x 5 mg tablet Protocol Text: Adjustment Start Date: Tuesday06/14/23 INR Value: 6.3 INR Date: 06/14/23 Recheck Date: 06/16/23 Discontinued warfarin 7.5 mg tablet 7.5 mg PO MOWE Referrals / Follow Up: Guillermo Pritchard MD [Primary Care Provider] - Within 1 Week Fazal Muir DO [Med Staff - Active Staff] - ( -You will need to follow-up with Dr. Muir with GI in his office upon dis charge. Please call his office to schedule your hospital follow-up appointment (ph. [phone])) Disposition Disposition (needs filled in before D/C Order can be placed): Home Health Service Charges/Coding Visit Charges Inpatient E&M: 53194 Disch Hosp >30min
[2023-06-19] MEDS: Enoxaparin 60 MG/0.6 ML Syringe SC (15:48)
[2023-06-20 13:38] LABS: Pathologist Review Reviewed
== END 2023-06-19 16:08 | disposition home health service (06) | DRG 391 ==
LOC: ED 18:45 → MS3 18:50 → PCU 06-16 08:48 → MS3 06-20 12:12 → PCU 06-20 12:12
PROVIDERS: Internal Medicine Gastroenterology; Nurse Practitioner; Admitting Provider Hospitalist; Emergency Provider Emergency Medicine; PCP Family Medicine; Visit Provider Internal Medicine
PROC: 0DJ08ZZ Inspection of Upper Intestinal Tract, Via Natural or Artificial Opening Endoscopic (ICD-10-PCS; CPT 43235; principal; 2023-06-16 10:10)
DX: K22.4 Dyskinesia of esophagus (principal); E43 Unspecified severe protein-calorie malnutrition; I13.0 Hypertensive heart and chronic kidney disease with heart failure and stage 1 through stage 4 chronic kidney disease, or unspecified chronic kidney disease; D62 Acute posthemorrhagic anemia; N17.9 Acute kidney failure, unspecified; I50.22 Chronic systolic (congestive) heart failure; I48.21 Permanent atrial fibrillation; Z68.1 Body mass index [BMI] 19.9 or less, adult; I27.21 Secondary pulmonary arterial hypertension; D69.6 Thrombocytopenia, unspecified; J44.9 Chronic obstructive pulmonary disease, unspecified; K74.60 Unspecified cirrhosis of liver; N18.31 Chronic kidney disease, stage 3a; I48.0 Paroxysmal atrial fibrillation; D50.9 Iron deficiency anemia, unspecified; K22.2 Esophageal obstruction; K74.00 Hepatic fibrosis, unspecified; I25.10 Atherosclerotic heart disease of native coronary artery without angina pectoris; I25.5 Ischemic cardiomyopathy; E78.00 Pure hypercholesterolemia, unspecified; K44.9 Diaphragmatic hernia without obstruction or gangrene; K20.0 Eosinophilic esophagitis; F17.210 Nicotine dependence, cigarettes, uncomplicated; Q63.1 Lobulated, fused and horseshoe kidney; N28.1 Cyst of kidney, acquired; Z66 Do not resuscitate; Z79.02 Long term (current) use of antithrombotics/antiplatelets; Z79.01 Long term (current) use of anticoagulants; Z95.5 Presence of coronary angioplasty implant and graft; Z95.810 Presence of automatic (implantable) cardiac defibrillator
CPT/HCPCS: 36415; 71045; 80048; 80053; 81001; 83690; 85025; 85610; 88305; 88313; 92610; 93005; 94640; 94668; 97110; 97162; 97166; 97530; 97535; 97802; 99284; J7030; J7040; J7050; J7120; J7168; A4216; J0585; J2405; J2916; J3490

== ENCOUNTER → 2023-06-23 | Outpatient (CLI) | payer MEDICARE, SELFPAY ==
[2023-06-23 10:15] LABS: Absolute Neutrophil Count 5.2 X10^3/uL (2.0-7.7); Basophil# 0.04 X10^3/uL; Basophil% 0.6 % (0-1); Eosinophil# 0.12 X10^3/uL; Eosinophils% 1.8 % (0-5); Hematocrit 33.6 % (40-54); Hemoglobin 10.3 g/dL (13.0-16.5); Lymphocyte % 9.2 % (19-41); Mean Corp Hgb Conc 30.7 g/dL (32-36); Mean Corpuscular Hgb 30.6 pg (27.0-32.0); Mean Corpuscular Volume 99.7 fL (80-94); Mean Platelet Vol. 10.4 fl (6.2-12.0); Monocyte# 0.49 X10^3/uL; Monocyte% 7.6 % (0-10); NRBC Flagged by Analyzer 0 % (0-5); Neutrophil % 80.2 % (47-70); POSITIVE DIFFERENTIAL YES; POSITIVE MORPHOLOGY YES; Platelet Count 214 K/mm3 (150-450); Red Blood Count 3.37 M/mm3 (4.6-6.2); White Blood Count 6.5 K/mm3 (4.4-11.0)
[2023-06-23 10:16] LABS: Differential Indicated SCAN CRITERIA MET
[2023-06-23 10:30] LABS: ALB/GLOB Ratio 0.9 RATIO (0.9-2.4); AST(SGOT) 24 U/L (15-37); Alanine Aminotransfer ALT/SGPT 47 U/L (16-61); Albumin, Serum 3.4 g/dL (3.2-5.0); Alkaline Phosphatase 156 U/L (45-117); Anion Gap 4 (5-15); BUN 19 mg/dL (7-18); BUN/Creat Ratio 11.1 RATIO (10-20); Calcium,Total 8.8 mg/dL (8.5-10.1); Chloride 108 mmol/L (98-107); Creatinine, Serum 1.71 mg/dL (0.70-1.30); EST Glomerular Filtration Rate 41 mL/min (>60); Est Glom Filt Rate - Afr Amer 49 mL/min (>60); Globulin 3.6 g/dL (2.2-4.2); Glucose 137 mg/dL (74-106); LDH 253 U/L (87-241); Potassium 3.9 mmol/L (3.5-5.1); Sodium Level 141 mmol/L (136-145)
[2023-06-23 10:37] LABS: International Normalized Ratio 1.9; Prothrombin Time (Protime)PT. 22.1 SECONDS (11.7-14.9)
[2023-06-23 10:42] LABS: Anisocytosis 2+; Differential Comment SCANNED; Erythrocyte Sedimentation Rate 17 mm/hr (0-20); Macrocytosis 1+; Microcytosis 1+
== END | disposition home or self-care (01) ==
LOC: LAB 08:35
PROVIDERS: Internal Medicine Gastroenterology; PCP Family Medicine; Visit Provider Physician Assistant Medical
DX: I48.19 Other persistent atrial fibrillation (principal); Z79.01 Long term (current) use of anticoagulants
CPT/HCPCS: 36415; 80053; 82140; 83615; 85025; 85610; 85652; 86140

== ENCOUNTER → 2023-07-05 | Outpatient (CLI) | payer MEDICARE, SELFPAY ==
[2023-07-05 11:23] LABS: International Normalized Ratio 2.1; Prothrombin Time (Protime)PT. 24.1 SECONDS (11.7-14.9)
[2023-07-05 11:44] LABS: Thyroid Stim Hormone (TSH) 1.95 uIU/mL (0.358-3.74)
== END | disposition home or self-care (01) ==
LOC: LAB 10:07
PROVIDERS: PCP Family Medicine; Visit Provider Physician Assistant Medical
DX: I48.19 Other persistent atrial fibrillation (principal); Z79.01 Long term (current) use of anticoagulants
CPT/HCPCS: 36415; 84443; 85610

== ENCOUNTER → 2023-07-13 | Outpatient (CLI) | payer MEDICARE, SELFPAY ==
[2023-07-13 11:38] LABS: Prothrombin Time (Protime)PT. 50.4 SECONDS (11.7-14.9)
[2023-07-13 11:44] LABS: International Normalized Ratio 5.4
== END | disposition home or self-care (01) ==
LOC: LAB 08:55
PROVIDERS: PCP Family Medicine; Visit Provider Physician Assistant Medical
DX: I48.19 Other persistent atrial fibrillation (principal); Z79.01 Long term (current) use of anticoagulants
CPT/HCPCS: 36415; 85610

== ENCOUNTER → 2023-07-15 | Outpatient (CLI) | payer MEDICARE, SELFPAY ==
[2023-07-15 10:24] LABS: International Normalized Ratio 4.6; Prothrombin Time (Protime)PT. 44.6 SECONDS (11.7-14.9)
== END | disposition home or self-care (01) ==
LOC: LAB 09:08
PROVIDERS: PCP Family Medicine; Visit Provider Physician Assistant Medical
DX: I48.19 Other persistent atrial fibrillation (principal); Z79.01 Long term (current) use of anticoagulants
CPT/HCPCS: 36415; 85610

== ENCOUNTER → 2023-07-19 | Outpatient (CLI) | payer MEDICARE, SELFPAY ==
[2023-07-19 15:22] LABS: International Normalized Ratio 2.4; Prothrombin Time (Protime)PT. 26.6 SECONDS (11.7-14.9)
== END | disposition home or self-care (01) ==
LOC: MFPLAB 12:07
PROVIDERS: PCP Family Medicine; Visit Provider Physician Assistant Medical
DX: I48.19 Other persistent atrial fibrillation (principal); Z79.01 Long term (current) use of anticoagulants
CPT/HCPCS: 36415; 85610

== ENCOUNTER → 2023-07-26 | Outpatient (CLI) | payer MEDICARE, SELFPAY ==
[2023-07-26 11:30] LABS: International Normalized Ratio 5.6
== END | disposition home or self-care (01) ==
LOC: LAB 08:32
PROVIDERS: PCP Family Medicine; Visit Provider Physician Assistant Medical
DX: I48.19 Other persistent atrial fibrillation (principal); Z79.01 Long term (current) use of anticoagulants
CPT/HCPCS: 36415; 85610

== ENCOUNTER → 2023-07-28 | Outpatient (CLI) | payer MEDICARE, SELFPAY ==
[2023-07-28 10:46] LABS: Prothrombin Time (Protime)PT. 41.7 SECONDS (11.7-14.9)
[2023-07-28 11:00] LABS: International Normalized Ratio 4.3
== END | disposition home or self-care (01) ==
LOC: LAB 08:43
PROVIDERS: PCP Family Medicine; Visit Provider Physician Assistant Medical
DX: I48.19 Other persistent atrial fibrillation (principal); Z79.01 Long term (current) use of anticoagulants
CPT/HCPCS: 36415; 85610

== ENCOUNTER → 2023-08-01 | Outpatient (CLI) | payer MEDICARE, SELFPAY ==
[2023-08-01 10:56] LABS: International Normalized Ratio 1.6
== END | disposition home or self-care (01) ==
LOC: LAB 08:32
PROVIDERS: PCP Family Medicine; Visit Provider Physician Assistant Medical
DX: I48.19 Other persistent atrial fibrillation (principal); Z79.01 Long term (current) use of anticoagulants
CPT/HCPCS: 36415; 85610

== ENCOUNTER → 2023-08-08 | Outpatient (CLI) | payer MEDICARE, SELFPAY ==
[2023-08-08 11:14] LABS: International Normalized Ratio 1.3; Prothrombin Time (Protime)PT. 15.7 SECONDS (11.7-14.9)
== END | disposition home or self-care (01) ==
LOC: LAB 09:34
PROVIDERS: PCP Family Medicine; Referring Provider Physician Assistant Medical; Visit Provider Physician Assistant Medical
DX: I48.19 Other persistent atrial fibrillation (principal); Z79.01 Long term (current) use of anticoagulants
CPT/HCPCS: 36415; 85610

== ENCOUNTER → 2023-08-11 | Outpatient (CLI) | payer MEDICARE, SELFPAY ==
[2023-08-11 10:21] LABS: International Normalized Ratio 1.5
== END | disposition home or self-care (01) ==
LOC: LAB 08:54
PROVIDERS: PCP Family Medicine; Visit Provider Physician Assistant Medical
DX: I48.19 Other persistent atrial fibrillation (principal); Z79.01 Long term (current) use of anticoagulants
CPT/HCPCS: 36415; 85610

== ENCOUNTER → 2023-08-16 | Outpatient (CLI) | payer MEDICARE, SELFPAY ==
[2023-08-16 11:05] LABS: International Normalized Ratio 3.2
== END | disposition home or self-care (01) ==
LOC: LAB 08:48
PROVIDERS: PCP Family Medicine; Visit Provider Physician Assistant Medical
DX: I48.19 Other persistent atrial fibrillation (principal); Z79.01 Long term (current) use of anticoagulants
CPT/HCPCS: 36415; 85610

== ENCOUNTER → 2023-08-30 | Outpatient (CLI) | payer MEDICARE, SELFPAY ==
[2023-08-30 11:39] LABS: Prothrombin Time (Protime)PT. 48.6 SECONDS (11.7-14.9)
[2023-08-30 11:53] LABS: International Normalized Ratio 5.2
== END | disposition home or self-care (01) ==
LOC: LAB 10:00
PROVIDERS: PCP Family Medicine; Visit Provider Physician Assistant Medical
DX: I48.19 Other persistent atrial fibrillation (principal); Z79.01 Long term (current) use of anticoagulants
CPT/HCPCS: 36415; 85610

== ENCOUNTER 2023-09-02 09:51 | Outpatient (CLI) | payer MEDICARE, SELFPAY ==
[2023-09-02 11:07] LABS: Absolute Lymphocyte Count 0.59 X10^3/uL (0.83-4.51); Absolute Neutrophil Count 4.8 X10^3/uL (2.0-7.7); Basophil# 0.04 X10^3/uL; Basophil% 0.7 % (0-1); Eosinophil# 0.06 X10^3/uL; Hematocrit 33.5 % (40-54); Hemoglobin 9.9 g/dL (13.0-16.5); Lymphocyte # 0.59 X10^3/ul (0.83-4.51); Lymphocyte % 9.9 % (19-41); Mean Corp Hgb Conc 29.6 g/dL (32-36); Mean Corpuscular Hgb 31.2 pg (27.0-32.0); Mean Corpuscular Volume 105.7 fL (80-94); Mean Platelet Vol. 11.1 fl (6.2-12.0); Monocyte% 6.7 % (0-10); NRBC Flagged by Analyzer 0 % (0-5); POSITIVE DIFFERENTIAL YES; Platelet Count 187 K/mm3 (150-450); RBC Distribution Width SD 64.5 fl (35.1-43.9); Red Blood Count 3.17 M/mm3 (4.6-6.2); White Blood Count 5.9 K/mm3 (4.4-11.0)
[2023-09-02 11:15] LABS: International Normalized Ratio 2.5; Prothrombin Time (Protime)PT. 27.6 SECONDS (11.7-14.9)
[2023-09-02 11:16] LABS: Erythrocyte Sedimentation Rate 13 mm/hr (0-20)
[2023-09-02 11:34] LABS: Hemoglobin A1c 5.2 % (3.8-5.6)
[2023-09-02 11:49] LABS: ALB/GLOB Ratio 1.2 RATIO (0.9-2.4); AST(SGOT) 58 U/L (15-37); Alanine Aminotransfer ALT/SGPT 84 U/L (16-61); Albumin, Serum 3.7 g/dL (3.2-5.0); Alkaline Phosphatase 127 U/L (45-117); Anion Gap 5 (5-15); BUN 28 mg/dL (7-18); BUN/Creat Ratio 12.4 RATIO (10-20); CRP < 2.90 mg/L (0.0-3.0); Calcium,Total 9.1 mg/dL (8.5-10.1); Chloride 114 mmol/L (98-107); Cholesterol 128 mg/dL (200); Creatinine, Serum 2.25 mg/dL (0.70-1.30); EST Glomerular Filtration Rate 30 mL/min (>60); Est Glom Filt Rate - Afr Amer 36 mL/min (>60); Ferritin 40 ng/mL (26-388); Globulin 3.1 g/dL (2.2-4.2); Glucose 143 mg/dL (74-106); High Density Lipoprotein 45 mg/dL; Iron 137 ug/dL (65-175); Iron Binding Capacity,Total 349 ug/dL (250-450); LDH 257 U/L (87-241); PERCENT IRON SATURATION 39.3 % (15.0-55.0); Potassium 3.9 mmol/L (3.5-5.1); Protein, Total 6.8 g/dL (6.4-8.2); Sodium Level 144 mmol/L (136-145); Triglycerides 139 mg/dL; Very Low Density Lipoprotein 28 mg/dL (5-40)
[2023-09-02 11:57] LABS: HIV - WCH Non-Reactive (Nonreactive)
[2023-09-05 13:07] LABS: Anti-Centromere B Ab <0.2 AI (0.0-0.9); Anti-Chromatin <0.2 AI (0.0-0.9); Anti-Jo <0.2 AI (0.0-0.9); Anti-Mitochondrial AB <20.0 Units (0.0-20.0); Anti-Scleroderma-70 AB <0.2 AI (0.0-0.9); Anti-dsDNA Ab <1 IU/mL (0-9); RNP Ab <0.2 AI (0.0-0.9); SJOGREN'S Anti-SS-A test < 0.2 AI (0.0-0.9); SJOGREN'S Anti-SS-B test < 0.2 AI (0.0-0.9); Smith Ab 0.7 AI (0.0-0.9)
[2023-09-09 20:07] LABS: AFP, Tumor Marker 3.7 ng/mL (0.0-6.4); Anti-Smooth Muscle ABS 4 Units (0-19); Ceruloplasmin 21.9 mg/dL (16.0-31.0); Copper, Serum or Plasma 97 ug/dL (69-132); Cytoplasmic Ab (C-ANCA) <1:20 titer (Neg:<1:20); HEPATITIS B SURFACE AG Negative (Negative); Haptoglobin 161 mg/dL (38-329); Hep C Antibodies Non Reactive (Non Reactive); Hepatitis A IgM Antibody Negative (Negative); Hepatitis B Core AB IgM Negative (Negative); Perinuclear Ab (P-ANCA) <1:20 titer (Neg:<1:20); Transferrin 279 mg/dL (149-313)
== END 2023-09-02 23:59 | disposition home or self-care (01) ==
LOC: LAB 09:53
PROVIDERS: Internal Medicine; PCP Family Medicine; Referring Provider Physician Assistant Medical; Visit Provider Physician Assistant Medical
DX: I48.19 Other persistent atrial fibrillation (principal); I50.9 Heart failure, unspecified; D69.6 Thrombocytopenia, unspecified; Z79.01 Long term (current) use of anticoagulants; K74.00 Hepatic fibrosis, unspecified; I25.5 Ischemic cardiomyopathy; D50.0 Iron deficiency anemia secondary to blood loss (chronic); Z79.899 Other long term (current) drug therapy
CPT/HCPCS: 80053; 80061; 80074; 82105; 82390; 82525; 82728; 83010; 83036; 83516; 83540; 83550; 83615; 84466; 85025; 85610; 85652; 86140; 86225; 86235; 86256; 86703

== ENCOUNTER → 2023-09-13 | Outpatient (CLI) | payer MEDICARE, SELFPAY ==
[2023-09-13 11:11] LABS: International Normalized Ratio 4.1; Prothrombin Time (Protime)PT. 39.3 SECONDS (11.7-14.9)
== END | disposition home or self-care (01) ==
LOC: LAB 08:54
PROVIDERS: PCP Family Medicine; Visit Provider Physician Assistant Medical
DX: I48.19 Other persistent atrial fibrillation (principal); Z79.01 Long term (current) use of anticoagulants
CPT/HCPCS: 36415; 85610

== ENCOUNTER 2023-09-22 17:31 | Inpatient (IN) | payer MEDICARE, SELFPAY ==
[2023-09-22 17:41] VITALS: BP 92/60; PULSE 60; RESP 20; TEMP 36.2; O2SAT 100; BMI 18.6
--- NOTE | 2023-09-22 17:48 | RAD_ITS ---
STUDY: X-RAY CHEST REASON FOR EXAM: Male, 83 years old. SOB TECHNIQUE: Single frontal view of the chest. COMPARISON: June 15, 2023 FINDINGS: Dual chamber pacemaker device on the right is stable. There are interstitial fibrotic changes of the lungs. There is left lower lung granuloma. There is no demonstrated pleural abnormality. Sternal cerclage wires are present from a prior sternotomy. Normal mediastinum and yonas. Normal visualized pulmonary arteries. There is atherosclerotic calcification of the aortic arch. Normal visualized thoracic spine. Normal visualized ribs, clavicles, and shoulders. There is no demonstrated abnormality of the visualized soft tissue structures of the upper abdomen. RAD/Chest 1 View IMPRESSION: Degenerative changes, as described above. No demonstrated acute cardiopulmonary process. Electronically Signed: Yusuf Lo MD at 18:20 EST ,
[2023-09-22 17:56] LABS: Absolute Lymphocyte Count 0.59 X10^3/uL (0.83-4.51); Absolute Neutrophil Count 3.9 X10^3/uL (2.0-7.7); Basophil# 0.03 X10^3/uL; Basophil% 0.6 % (0-1); Hematocrit 25.5 % (40-54); Hemoglobin 7.7 g/dL (13.0-16.5); Lymphocyte # 0.59 X10^3/ul (0.83-4.51); Lymphocyte % 11.6 % (19-41); Mean Corp Hgb Conc 30.2 g/dL (32-36); Mean Corpuscular Volume 109.4 fL (80-94); Mean Platelet Vol. 11.2 fl (6.2-12.0); Monocyte# 0.49 X10^3/uL; Monocyte% 9.6 % (0-10); NRBC Flagged by Analyzer 0.4 % (0-5); Neutrophil # 3.92 X10^3/uL (2.7-7.7); POSITIVE DIFFERENTIAL YES; POSITIVE MORPHOLOGY YES; Platelet Count 154 K/mm3 (150-450); RBC Distribution Width CV 18.4 % (11.6-14.6); RBC Distribution Width SD 72.6 fl (35.1-43.9); Red Blood Count 2.33 M/mm3 (4.6-6.2); White Blood Count 5.1 K/mm3 (4.4-11.0)
[2023-09-22 17:57] LABS: Differential Indicated SCAN CRITERIA MET
--- NOTE | 2023-09-22 18:03 | ED.RN ---
INCREAED WORK OF BREATHING AND WHEEZING NOTED IN WAITING AREA. SATS 99% HR 61.
[2023-09-22 18:08] LABS: Anion Gap 11 (5-15); BUN 47 mg/dL (7-18); BUN/Creat Ratio 20.2 RATIO (10-20); Calcium,Total 9.6 mg/dL (8.5-10.1); Chloride 108 mmol/L (98-107); Creatinine, Serum 2.33 mg/dL (0.70-1.30); EST Glomerular Filtration Rate 28 mL/min (>60); Est Glom Filt Rate - Afr Amer 34 mL/min (>60); Estimated Creatinine Clearance 19.33 ml/min; Glucose 115 mg/dL (74-106); Potassium 3.7 mmol/L (3.5-5.1); Sodium Level 142 mmol/L (136-145)
[2023-09-22 18:11] LABS: BNP,B-Type NATRIURETIC PEPTIDE 210.8 pg/mL (0-100)
[2023-09-22 18:48] LABS: Anisocytosis 2+; Differential Comment SCANNED; Hypochromasia 1+; Macrocytosis 1+; Microcytosis 1+
--- NOTE | 2023-09-22 18:55 | EKG12_ITS ---
Test Reason : SOB Blood Pressure : / mmHG Vent. Rate : 060 BPM Atrial Rate : 060 BPM P-R Int : 178 ms QRS Dur : 172 ms QT Int : 508 ms P-R-T Axes : 042 266 089 degrees QTc Int : 508 ms AV dual-paced rhythm Biventricular pacemaker detected Abnormal ECG Confirmed by Ezequiel Acharya ([id number]), sports editor RAVEN RADFORD ([id number]) on 09/26/2023 2:09:54 PM Referred By: Chichi Tejada Confirmed By:Ezequiel Acharya
[2023-09-22 19:15] LABS: Prothrombin Time (Protime)PT. 89.7 SECONDS (11.7-14.9)
--- NOTE | 2023-09-22 19:15 | EX.ED.DYSGE1 ---
HPI History of Present Illness Chief Complaint: Weakness Informant: patient and family (Daughter) Onset/Context/Timing Onset: Days (4) Context: Gradual Onset Timing: Continuous Quality: Dyspnea with exertion Location: Chest Worsened by: Exertion Relieved by: Rest Narrative Narrative: Patient presents with weakness and shortness of breath that has been getting worse over the past 4 days. Patient states his breathing is worse with any exertion. Family states patient is unable to walk to the bathroom because he becomes short of breath after walking a few feet. Patient denies any fevers or chills. Patient admits to some nausea and vomiting. Patient denies any hematemesis or coffee-ground emesis. Patient denies any diarrhea, melena, or hematochezia. Patient has had bleeding ulcers in the past and has had similar symptoms with anemia. Prior similar symptoms: Yes PFSH [facility] Medical History Acute respiratory failure with hypoxia [place] (acute kidney injury) Ambulates with cane Anemia Anemia due to chronic blood loss Anticoagulant long-term use Arthritis Asthma Atherosclerotic heart disease of [place] coronary artery without angina pectoris Atrial fibrillation Back pain Back pain due to injury Cardiology follow-up encounter Chest pain CHF (congestive heart failure) Chronic airway obstruction Chronic anticoagulation Chronic cough Chronic pain Chronic pain syndrome Chronic systolic (congestive) heart failure CKD (chronic kidney disease) COPD (chronic obstructive pulmonary disease) COPD (chronic obstructive pulmonary disease) Coronary artery disease Difficulty swallowing Erosion of pacemaker pocket due to and not concurrent with implantation of cardiac pacemaker Essential hypertension Former smoker Gastric reflux GERD (gastroesophageal reflux disease) Heart attack HFrEF (heart failure with reduced ejection fraction) High cholesterol History of echocardiogram History of edema History of GI bleed History of heart attack History of pain when walking History of stress test Hx of fracture of ankle Hx of fracture of ankle Hypertension ICD (implantable cardioverter-defibrillator) in place Injury of back Injury of head and neck Intermittent complete heart block Irregular heartbeat Ischemic cardiomyopathy Kidney disease knock out hand current use of anticoagulant 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 On home oxygen therapy Osteoporosis Paroxysmal atrial fibrillation Pericardial effusion after operative procedure Perirectal abscess Persistent atrial fibrillation Pure hypercholesterolemia Restless legs Secondary pulmonary arterial hypertension Shortness of breath on exertion Sick sinus syndrome Smoker Spinal stenosis of lumbar region Stage 3a chronic kidney disease (CKD) Stroke Symptomatic bradycardia TIA (transient ischemic attack) Tobacco use disorder Uncontrolled pain Wears dentures Wears glasses Home Medications albuterol sulfate 90 mcg/actuation breath activated powder inhaler 2 puff inhalation Q4H PRN Shortness Of Breath 09/25/15 [History Last Taken 08/23/22] cholecalciferol (vitamin D3) 25 mcg (1,000 unit) tablet 1,000 unit PO DAILY SUPPLEMENT 09/25/15 [History Last Taken 08/24/22] folic acid 1 mg tablet 1 mg PO QHS SUPPLEMENT 06/24/16 [History Last Taken 08/23/22] pantoprazole 40 mg tablet,delayed release 40 mg PO BID ACID REFLUX 01/02/18 [History Last Taken 08/24/22] tiotropium 2.5 mcg-olodaterol 2.5 mcg/actuation mist for inhalation (Stiolto Respimat) 1 puff inhalation BID ASTHMA 06/18/21 [History Last Taken 08/24/22] ipratropium 0.5 mg-albuterol 3 mg (2.5 mg base)/3 mL nebulization soln 3 ml inhalation 4X/DAY SHORTNESS OF BREATH 11/25/21 [History Last Taken 04/06/22] buprenorphine 15 mcg/hour weekly transdermal patch 20 mcg transdermal FULLER PAIN 08/24/22 [History Last Taken 08/15/22] nitroglycerin 0.4 mg sublingual tablet 0.4 mg sublingual Q5M PRN Chest Pain #25 tabs 09/17/22 [Rx Last Taken Unknown] clopidogrel 75 mg tablet 75 mg PO DAILY antiplatelet 03/29/23 [History Last Taken Unknown] rosuvastatin 40 mg tablet (Crestor) 40 mg PO DAILY cholesterol 03/29/23 [History Last Taken Unknown] furosemide 20 mg tablet 20 mg PO DAILY dose has been decreased #90 tabs 04/25/23 [Rx Last Taken Unknown] potassium chloride 10 mEq tablet,extended release 10 meq PO DAILY #30 tabs 04/25/23 [Rx Last Taken Unknown] amiodarone 200 mg tablet 200 mg PO DAILY afib #90 tabs 04/28/23 [Rx Last Taken Unknown] empagliflozin 10 mg tablet (Jardiance) 10 mg PO DAILY heart health #90 tabs 04/28/23 [Rx Last Taken Unknown] zolpidem 10 mg tablet 10 mg PO QHS sleep 05/03/23 [History Last Taken Unknown] ferrous sulfate 325 mg (65 mg iron) tablet 325 mg PO DAILY IRON SUPPLEMENT 05/24/23 [History Last Taken Unknown] metoprolol succinate 50 mg tablet,extended release 24 hr 50 mg PO DAILY 07/05/23 [History Last Taken Unknown] lactulose 10 gram/15 mL (15 mL) oral solution 20 g (30 mL) PO DAILY #1,440 mL 08/01/23 [Rx Last Taken Unknown] enoxaparin 60 mg/0.6 mL subcutaneous syringe 60 mg (0.6 mL) subcut QHS #6 mL 08/08/23 [Rx Last Taken Unknown] warfarin 2 mg tablet 2 mg PO .COMPLEX 09/02/23 [History Last Taken Unknown] warfarin 5 mg tablet 5 mg PO .COMPLEX 09/02/23 [History Last Taken Unknown] Allergy/AdvReac Type Severity Reaction Status Date / Time No Known Allergies Allergy Verified 09/22/23 17:41 Family History Son , age 44 from [place] CAD (coronary artery disease) Myocardial infarction Sudden cardiac Brother CAD (coronary artery disease) Pt states all nine of his siblings have heart problems Sister CAD (coronary artery disease) Patient states all nine of his siblings have heart problems Other History of mechanical aortic valve replacement Surgical History Cardiac pacemaker in situ H/O cardiac catheterization H/O prosthetic aortic valve replacement History of coronary artery stent placement (~06/28/11) History of coronary artery stent placement History of esophagogastroduodenoscopy (EGD) (~10/2021) History of left heart catheterization History of lumbar fusion History of mechanical aortic valve replacement (~03/27/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 Hx of CABG Presence of biventricular implantable cardioverter-defibrillator (ICD) S/P CABG x 1 (~03/27/93) Status post cardiac surgery Social History household members: family and none housing: house Smoking Status: Current every day smoker tobacco type: cigarettes alcohol intake: never substance use type: does not use caffeine: No ROS ROS ED Constitutional Constitutional ED: Denies chills or fever(s) Eyes Eyes: Denies blurry vision or change in vision ENT ENT ED: Denies rhinorrhea or sore throat Cardiovascular Cardiovascular: Reports chest pain; Denies palpitations Respiratory/Chest Respiratory/Chest: Reports dyspnea; Denies cough Gastrointestinal Gastrointestinal: Reports nausea and vomiting Genitourinary Genitourinary ED: Denies dysuria or hematuria Musculoskeletal Musculoskeletal: Denies back pain or neck pain Integumentary Denies abscess or rash Neurologic Neurologic: Reports weakness; Denies headache(s) Allergic/Immunologic Allergic/Immunologic ED: Denies mouth swelling or urticaria EXAM Physical Exam Const Vital Signs: 09/22/23 17:41 09/22/23 19:22 Temperature 97.1 F L Temperature Source Temporal Pulse Rate 60 Respiratory Rate 20 H Respiratory Effort Short of Breath Respiratory Pattern Normal Blood Pressure 92/60 Blood Pressure Mean 70 Pulse Ox 100 Oxygen Delivery Method Room Air Positive well nourished and well developed General Appearance ED: well developed and NAD HEENT Reports moist mucous membranes Eyes PERRL and EOMs intact bilaterally Neck supple and no JVD Resp normal respiratory effort and clear to auscultation bilaterally Cardio regular rate and regular rhythm GI non-tender and non-distended Palpation: soft Rectal Exam: normal sphincter tone and heme positive stool Neuro oriented x3, CN's II-XII intact bilaterally and no sensory deficits noted Sensorium / Orientation: alert Motor Exam: strength 5/5 throughout Psych mental status grossly normal MDM MDM MDM Narrative Medical decision making narrative: Differential diagnosis includes gastrointestinal bleeding, anemia, electrolyte abnormality, cardiac dysrhythmia, cardiac ischemia, coagulopathy, congestive heart failure, and pneumonia. CBC will be obtained to assess for leukocytosis and anemia. PT with INR will be obtained to assess for coagulopathy. Basic metabolic profile will be obtained to assess for electrolyte abnormality and renal function. High-sensitivity troponin will be obtained to assess for cardiac ischemia. BNP will be obtained to assess for congestive heart failure. Chest x-ray will be obtained to assess for pneumonia and pneumothorax. EKG will be obtained to assess for cardiac dysrhythmia and cardiac ischemia. Lab Data Attestation: I reviewed the patient's lab results. Lab results narrative: CBC was reviewed. Hemoglobin was low at 7.7 and hematocrit was 25.5. Platelets were normal. Basic metabolic profile was reviewed. BUN was 47 and creatinine was 2.33. These are consistent with prior results. High-sensitivity troponin was reviewed and was slightly elevated at 97. BNP was reviewed and was slightly elevated at 210.8. Labs: Laboratory Results - last 24 hr 09/22/23 17:45 WBC 5.1 RBC 2.33 L Hgb 7.7 L Hct 25.5 L MCV 109.4 H MCH 33.0 H MCHC 30.2 L RDW Std Deviation 72.6 H RDW Coeff of [place] 18.4 H Plt Count 154 MPV 11.2 Immature Gran % (Auto) 1.200 H Neut % (Auto) 77.0 H Lymph % (Auto) 11.6 L [place] % (Auto) 9.6 Eos % (Auto) 0.0 Baso % (Auto) 0.6 Absolute Neuts (auto) 3.9 Absolute Lymphs (auto) 0.59 L Nucleated RBC % 0.4 Differential Comment SCANNED Hypochromasia 1+ Anisocytosis 2+ Microcytosis 1+ Macrocytosis 1+ PT 89.7 H INR 11.9 H* Sodium 142 Potassium 3.7 Chloride 108 H Carbon Dioxide 23.0 Anion Gap 11 BUN 47 H Creatinine 2.33 H Estim Creat Clear Calc 19.33 Est GFR (MDRD) Af Amer 34 L Est GFR (MDRD) Non-Af 28 L BUN/Creatinine Ratio 20.2 H Glucose 115 H Calcium 9.6 Troponin I High Sens 97 H B-Natriuretic Peptide 210.8 H Radiography Diagnostic Testing: Clinical Impression(s) from Imaging Studies Chest X-Ray 09/22/23 17:48 IMPRESSION: Degenerative changes, as described above. No demonstrated acute cardiopulmonary process. Electronically Signed: Yusuf Lo MD at 18:20 EST , Portable 1 view chest x-ray was obtained. On my independent interpretation, lung penn are clear. There is normal cardiac silhouette. Bony thorax shows some degenerative changes. There is no acute process noted. Radiologist also interpreted the x-ray and agrees. EKG Initial EKG: Attestation: I personally reviewed and interpreted this EKG as follows: Interpretation: Paced (60) Comments: EKG was obtained. On my independent interpretation, shows a paced rhythm with a rate of 60. MI interval was normal at 178 ms. QRS interval was prolonged at 172 ms. QTc interval was slightly prolonged at 508 ms. There is right axis deviation at 266. There is a left bundle branch block pattern noted. Prior EKG tracings: available for review Prior: Unchanged (06/15/2023) Management Discussion w/another healthcare provider: Hospitalist (Dr. Tejada) and Valve Inspector (Dr. Muir) Treatment and Re-Evaluation :: Patient was given a dose of IV vitamin K for his coagulopathy. Patient was given a type and crossmatch for 2 units packed red blood cells. Case was discussed with Dr. Muir from gastroenterology. He will follow along with the patient. Case was discussed with the hospitalist. She will admit the patient to her service. Patient understood and was agreeable with the plan. All questions were answered. Discharge Plan Triage Chief Complaint: Weakness ED Provider: Pancho Tillman Dx/Rx/DC Orders Prescriptions: No Action ipratropium-albuterol 0.5 mg-3 mg(2.5 mg base)/3 mL solution for nebulization 3 ml INHALATION 4X/DAY nitroglycerin 0.4 mg tablet, sublingual 0.4 mg SUBLINGUAL Q5M PRN (Reason: Chest Pain) Qty: 25 3RF ferrous sulfate 325 mg (65 mg iron) tablet 325 mg PO DAILY Patient Comments: iron supplement pantoprazole 40 mg tablet,delayed release (DR/EC) 40 mg PO BID cholecalciferol (vitamin D3) 1,000 UNIT tablet 1,000 unit PO DAILY albuterol sulfate 90 MCG aerosol powdr breath activated 2 puff INHALATION Q4H PRN (Reason: Shortness Of Breath) Patient Comments: folic acid 1 MG tablet 1 mg PO QHS Stiolto Respimat 2.5-2.5 mcg/actuation Mist 1 puff INHALATION BID buprenorphine 15 mcg/hour patch weekly 20 mcg transdermal FULLER zolpidem 10 mg tablet 10 mg PO QHS Patient Comments: TAKE 1 TABLET BY MOUTH EVERY DAY clopidogrel 75 mg tablet 75 mg PO DAILY rosuvastatin [Crestor] 40 mg tablet 40 mg PO DAILY potassium chloride 10 mEq tablet extended release 10 meq PO DAILY Qty: 30 11RF furosemide 20 mg tablet 20 mg PO DAILY Qty: 90 3RF amiodarone 200 mg tablet 200 mg PO DAILY Qty: 90 3RF Jardiance 10 mg tablet 10 mg PO DAILY Qty: 90 3RF metoprolol succinate 50 mg tablet extended release 24 hr 50 mg PO DAILY lactulose 10 gram/15 mL (15 mL) solution 20 g PO DAILY Qty: 1440 4RF enoxaparin 60 mg/0.6 mL syringe 60 mg subcut QHS Qty: 6 0RF warfarin 5 mg tablet 5 mg PO .COMPLEX Protocol: Dose Management Condition: Tuesday Dose/Route: 4 mg Instruction: 2 x 2 mg tablets Condition: Tuesday Dose/Route: 4 mg Instruction: 2 x 2 mg tablets Condition: Tuesday Dose/Route: 0 mg Instruction: 0 tablets Condition: Tuesday Dose/Route: 4 mg Instruction: 2 x 2 mg tablets Condition: Dose/Route: 4 mg Instruction: 2 x 2 mg tablets Condition: Tuesday Dose/Route: 4 mg Instruction: 2 x 2 mg tablets Condition: Tuesday Dose/Route: 4 mg Instruction: 2 x 2 mg tablets Protocol Text: Adjustment Start Date: Tuesday09/13/23 INR Value: 4.1 INR Date: 09/13/23 Recheck Date: 09/20/23 Rx Instructions: 5 mg orally Tue, , , (takes 2mg on Fri, Sat, Sun or as directed); warfarin 2 mg tablet 2 mg PO .COMPLEX Protocol: Dose Management Condition: Tuesday Dose/Route: 4 mg Instruction: 2 x 2 mg tablets Condition: Tuesday Dose/Route: 4 mg Instruction: 2 x 2 mg tablets Condition: Tuesday Dose/Route: 0 mg Instruction: 0 tablets Condition: Tuesday Dose/Route: 4 mg Instruction: 2 x 2 mg tablets Condition: Dose/Route: 4 mg Instruction: 2 x 2 mg tablets Condition: Tuesday Dose/Route: 4 mg Instruction: 2 x 2 mg tablets Condition: Tuesday Dose/Route: 4 mg Instruction: 2 x 2 mg tablets Protocol Text: Adjustment Start Date: Tuesday09/13/23 INR Value: 4.1 INR Date: 09/13/23 Recheck Date: 09/20/23 Rx Instructions: 2 mg orally Fri, Sat and Sun (takes a 5mg tablet all other days of the week, or as directed); Primary Care Provider: Guillermo Pritchard
[2023-09-22 19:25] LABS: Troponin-I HS 97 pg/mL (3.0-78.0)
[2023-09-22 19:30] VITALS: BP 92/56; PULSE 60; RESP 10; O2SAT 99
[2023-09-22 19:46] LABS: International Normalized Ratio 11.9
[2023-09-22] MEDS: Phytonadione (Vit K) 5 MG in 0.9% Normal Saline (50mL Bag) 50 ML 150 MG IV (20:44)
[2023-09-22 21:00] VITALS: BP 100/57; PULSE 60; RESP 10; O2SAT 99
--- NOTE | 2023-09-22 21:14 | PCM.HP.STD ---
HPI - General General Date of Admission: 09/22/23 Date of Service: 09/22/23 Chief Complaint: Dyspnea, fatigue, dyspnea, black stools. 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 Workup in the ED included T97.1, heart rate 60, BP 92/60, respiratory rate 20, 100% on room air, CBC with WBC 5.1, hemoglobin 7.7, MCV 109.4, platelet 154 with increased immature granulocytes and lymphopenia, coags with INR 11.9, PT 89.7, BMP with chloride 108, BUN/creatinine 47/2.33, glucose 115, troponin 97, BNP 210.8, chest x-ray with degenerative changes with no acute cardiopulmonary findings, stool guaiac positive. In the ED patient administered vitamin K 5 mg x 1. ED physician T+C 2 u per ED physician given difficult match history. In the ED patient administered morphine 4 mg IV x 1 as well as Zofran 4 mg IV x 1. [facility] Medical History Ambulates with cane Anemia Anemia due to chronic blood loss Anticoagulant long-term use Arthritis Asthma Atherosclerotic heart disease of [place] coronary artery without angina pectoris Atrial fibrillation Back pain due to injury CHF (congestive heart failure) Chronic airway obstruction Chronic anticoagulation Chronic cough Chronic pain Chronic pain syndrome CKD (chronic kidney disease) COPD (chronic obstructive pulmonary disease) COPD (chronic obstructive pulmonary disease) Coronary artery disease Erosion of pacemaker pocket due to and not concurrent with implantation of cardiac pacemaker Essential hypertension Former smoker GERD (gastroesophageal reflux disease) Heart attack HFrEF (heart failure with reduced ejection fraction) High cholesterol History of edema History of GI bleed History of heart attack History of pain when walking History of stress test Hx of fracture of ankle Hx of fracture of ankle Hypertension ICD (implantable cardioverter-defibrillator) in place Injury of back Injury of head and neck Intermittent complete heart block Ischemic cardiomyopathy 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 On home oxygen therapy Osteoporosis Paroxysmal atrial fibrillation Pericardial effusion after operative procedure Persistent atrial fibrillation Pure hypercholesterolemia Restless legs Secondary pulmonary arterial hypertension Sick sinus syndrome Spinal stenosis of lumbar region Stage 3a chronic kidney disease (CKD) Stroke Symptomatic bradycardia TIA (transient ischemic attack) Tobacco use disorder Wears dentures Wears glasses Home Medications albuterol sulfate 90 mcg/actuation breath activated powder inhaler 2 puff inhalation Q4H PRN Shortness Of Breath 09/25/15 [History Last Taken 08/23/22] cholecalciferol (vitamin D3) 25 mcg (1,000 unit) tablet 1,000 unit PO DAILY SUPPLEMENT 09/25/15 [History Last Taken 08/24/22] folic acid 1 mg tablet 1 mg PO QHS SUPPLEMENT 06/24/16 [History Last Taken 08/23/22] pantoprazole 40 mg tablet,delayed release 40 mg PO BID ACID REFLUX 01/02/18 [History Last Taken 08/24/22] tiotropium 2.5 mcg-olodaterol 2.5 mcg/actuation mist for inhalation (Stiolto Respimat) 1 puff inhalation BID ASTHMA 06/18/21 [History Last Taken 08/24/22] ipratropium 0.5 mg-albuterol 3 mg (2.5 mg base)/3 mL nebulization soln 3 ml inhalation 4X/DAY SHORTNESS OF BREATH 11/25/21 [History Last Taken 04/06/22] buprenorphine 15 mcg/hour weekly transdermal patch 20 mcg transdermal FULLER PAIN 08/24/22 [History Last Taken 08/15/22] nitroglycerin 0.4 mg sublingual tablet 0.4 mg sublingual Q5M PRN Chest Pain #25 tabs 09/17/22 [Rx Last Taken Unknown] clopidogrel 75 mg tablet 75 mg PO DAILY antiplatelet 03/29/23 [History Last Taken Unknown] rosuvastatin 40 mg tablet (Crestor) 40 mg PO DAILY cholesterol 03/29/23 [History Last Taken Unknown] furosemide 20 mg tablet 20 mg PO DAILY dose has been decreased #90 tabs 04/25/23 [Rx Last Taken Unknown] potassium chloride 10 mEq tablet,extended release 10 meq PO DAILY #30 tabs 04/25/23 [Rx Last Taken Unknown] amiodarone 200 mg tablet 200 mg PO DAILY afib #90 tabs 04/28/23 [Rx Last Taken Unknown] empagliflozin 10 mg tablet (Jardiance) 10 mg PO DAILY heart health #90 tabs 04/28/23 [Rx Last Taken Unknown] zolpidem 10 mg tablet 10 mg PO QHS sleep 05/03/23 [History Last Taken Unknown] ferrous sulfate 325 mg (65 mg iron) tablet 325 mg PO DAILY IRON SUPPLEMENT 05/24/23 [History Last Taken Unknown] metoprolol succinate 50 mg tablet,extended release 24 hr 50 mg PO DAILY 07/05/23 [History Last Taken Unknown] lactulose 10 gram/15 mL (15 mL) oral solution 20 g (30 mL) PO DAILY #1,440 mL 08/01/23 [Rx Last Taken Unknown] enoxaparin 60 mg/0.6 mL subcutaneous syringe 60 mg (0.6 mL) subcut QHS #6 mL 08/08/23 [Rx Last Taken Unknown] warfarin 2 mg tablet 2 mg PO .COMPLEX 09/02/23 [History Last Taken Unknown] warfarin 5 mg tablet 5 mg PO .COMPLEX 09/02/23 [History Last Taken Unknown] Allergy/AdvReac Type Severity Reaction Status Date / Time No Known Allergies Allergy Verified 09/22/23 17:41 Family History Son , age 44 from [place] CAD (coronary artery disease) Myocardial infarction Sudden cardiac Brother CAD (coronary artery disease) Pt states all nine of his siblings have heart problems Sister CAD (coronary artery disease) Patient states all nine of his siblings have heart problems Other History of mechanical aortic valve replacement Surgical History Cardiac pacemaker in situ H/O cardiac catheterization H/O prosthetic aortic valve replacement History of coronary artery stent placement (~06/28/11) History of coronary artery stent placement History of esophagogastroduodenoscopy (EGD) (~10/2021) History of left heart catheterization History of lumbar fusion History of mechanical aortic valve replacement (~03/27/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 Hx of CABG Presence of biventricular implantable cardioverter-defibrillator (ICD) S/P CABG x 1 (~03/27/93) Status post cardiac surgery Social History (Updated 09/22/23 @ 22:[address] Chichi Tejada MD) household members: family and none housing: house Smoking Status: Current every day smoker tobacco type: cigarettes Smoking packs per day: 0.25 Smoking cigarettes per day: 5.0 alcohol intake: never substance use type: does not use caffeine: No ROS ROS Narrative Admission Review of Systems: CONSTITUTIONAL: No weight loss, fever, chills, + weakness or fatigue. HEENT: Eyes: No visual loss, blurred vision, double vision or yellow sclerae. Ears, Nose, Throat: No hearing loss, sneezing, congestion, runny nose or sore throat. SKIN: No rash or itching, lesions, wounds. CARDIOVASCULAR: No chest pain, chest pressure or chest discomfort, palpitations, edema, orthopnea, syncopal events. RESPIRATORY: + Shortness of breath. No cough or sputum, wheezing, hemoptysis. GASTROINTESTINAL: + Dark black appearing stools, mild anorexia, No nausea, vomiting, diarrhea, abdominal pain, BRBPR. GENITOURINARY: No dysuria, frequency, urgency or retention. NEUROLOGICAL: No headache, dizziness, syncope, paralysis, ataxia, numbness or tingling in the extremities, focal weakness, change in bowel or bladder control, seizure. MUSCULOSKELETAL: + muscle, back pain, joint pain or stiffness. HEMATOLOGIC: + anemia, active GI bleeding, easey bruising. LYMPHATICS: No enlarged nodes. No history of splenectomy. PSYCHIATRIC: No history of depression or anxiety. ENDOCRINOLOGIC: No reports of sweating, cold or heat intolerance. No polyuria or polydipsia. ALLERGIES: No history of asthma, hives, eczema or rhinitis. Vital Signs Vital Signs Vital Signs: 09/22/23 17:41 09/22/23 19:22 Temperature 97.1 F L Temperature Source Temporal Pulse Rate 60 Respiratory Rate 20 H Respiratory Effort Short of Breath Respiratory Pattern Normal Blood Pressure 92/60 Blood Pressure Mean 70 Pulse Ox 100 Oxygen Delivery Method Room Air Weight Weight: 130 lb Body Mass Index (BMI) 18.6 Physical Exam Narrative Physical Examination: General: Awake, alert, oriented x 3 and cooperative, laying in the ED bed, fatigued. Skin: Normal color, normal turgor, no icterus, no cyanosis except for occasional staged ecchymoses, abrasion. HEENT: AT/NC, EOMI, PERRLA, dry MM, no carotid bruits or JVD noted. Lungs: Diminished, greater bases, proper effort no rales, ronchi or wheezing. Heart: Currently regular/status post pacemaker; no gallop, rub audible, + notable valve click. Abdomen: Soft, NTTP, ND, hyperactive BS, no appreciated HSM. Extremities: No cyanosis, clubbing, or edema. Neurological: Patient awake, alert, oriented as noted, cognitive function intact; pupils equally reactive to light and accommodation, cranial nerves II-XII grossly normal, moving all 4 extremities, no focal deficits, strength severely decreased secondary to acute presentation. Psychiatric: Affect appears flat, fatigued, no acute evidence of depressive or anxiety feelings. Results Lab / Micro Data 09/22/23 17:45 09/22/23 17:45 Labs: Laboratory Results - last 24 hr 09/22/23 17:45: WBC 5.1, RBC 2.33 L, Hgb 7.7 L, Hct 25.5 L, MCV 109.4 H, MCH 33.0 H, MCHC 30.2 L, RDW Std Deviation 72.6 H, RDW Coeff of [place] 18.4 H, Plt Count 154, MPV 11.2, Immature Gran % (Auto) 1.200 H, Neut % (Auto) 77.0 H, Lymph % (Auto) 11.6 L, [place] % (Auto) 9.6, Eos % (Auto) 0.0, Baso % (Auto) 0.6, Absolute Neuts (auto) 3.9, Absolute Lymphs (auto) 0.59 L, Nucleated RBC % 0.4, Differential Comment SCANNED, Hypochromasia 1+, Anisocytosis 2+, Microcytosis 1+, Macrocytosis 1+, PT 89.7 H, INR 11.9 H*, Sodium 142, Potassium 3.7, Chloride 108 H, Carbon Dioxide 23.0, Anion Gap 11, BUN 47 H, Creatinine 2.33 H, Estim Creat Clear Calc 19.33, Est GFR (MDRD) Af Amer 34 L, Est GFR (MDRD) Non-Af 28 L, BUN/Creatinine Ratio 20.2 H, Glucose 115 H, Calcium 9.6, Troponin I High Sens 97 H, B-Natriuretic Peptide 210.8 H 09/22/23 19:07: Blood Type O POSITIVE, Antibody Screen NEGATIVE Micro: Microbiology 09/22/23 20:15 Stool Stool Occult Blood ([facility]EN) - Final Occult Blood Positive Imaging Radiology Impression Chest X-Ray 09/22/23 17:48 IMPRESSION: Degenerative changes, as described above. No demonstrated acute cardiopulmonary process. Electronically Signed: Yusuf Lo MD at 18:20 EST , Assessment & Plan Assessment/Plan (1) GI bleed: PLAN: Plan The patient is an 83 y/o M w/ PMHx: CKD stage III unclear subtype, PAF, Asthma/COPD, Chronic anemia/Fe deficiency anemia, HTN, HLD, Valvular Heart Disease s/p mechanical aortic valve replacement, tobacco use, Chronic pain syndrome, Hx GI bleed, Ongoing evaluation with GI for possible Liver fibrosis, Chronic dysphagia, HFrEF, Hx Intermittent Complete HB/sick sinus syndrome s/p history of pacemaker infection s/p pacemaker extraction and replacement on contralateral side (ECHO 02/2023 showed an EF of 20 to 30%), CAD s/p CABG and PCI x 2 on 02/2023 who presents to the [facility] ED on 09/22/23 with history of notable fatigue, malaise, dyspnea worse with exertion with difficulty walking over the last 4 days with noted black appearing stools prompting eventual ED evaluation. #1. Acute GI Bleed w/ resultant Acute Blood Loss Anemia on Chronic anemia/Fe deficiency anemia with associated mild hypotension with ongoing outpatient evaluation of note for possible liver fibrosis: ED stool guiac positive, admission Hgb 8.5, 08/22/23 Hgb 10.8 of note, will admit to [facility], maintain on IVFs, obtain serial H+H q 6 hours, obtain T+C w/ for 2 u PRBC administration given orthostasis associated symptom complaints to be cautious now especially given issues with crossmatch with antibodies, maintain on IV PPI with bolus and drip, GI consulted, clears until midnight then NPO status. Given unfortunately patient history of mechanical aortic valve will at this time cautiously administer IV vitamin K x 1 and closely trend INR but once appropriate level would need to then consider transition to heparin drip until assured GI bleed is resolved. Most recent GI evaluation during admission 06/2023 with upper endoscopy 06/16/2023 noted most recently prior with abnormal esophageal motility suspicious for esophageal spasm with injection of botulinum toxin, moderate Schatzki ring that was dilated, small hiatal hernia, normal second portion duodenum, biopsies obtained for evaluation of eosinophilic esophagitis. Given unclear liver disease to be cautious will maintain on IV rocephin. PT/OT/CM consulted for discharge planning. #2. Supratherapeutic INR: Given unfortunately patient history of mechanical aortic valve will at this time cautiously administer IV vitamin K x 1 and closely trend INR but once appropriate level would need to then consider transition to heparin drip until assured GI bleed is resolved. #3. Indeterminate cardiac enzyme, suspected secondary demand with GI bleed presentation as noted above: EKG in ED [], CXR w/ degenerative changes with no acute cardiopulmonary findings, initial trop 97 with normal levels previously. Will place on a monitored bed to assure no acute myocardial infarction with serial cardiac enzymes and EKGs. Again suspect this is primarily demand. If enzymes rise further will obtain echocardiogram as well as possible cardiology involvement. Given presentation as noted holding Coumadin, administering judicious IV vitamin K and once appropriate transition to heparin drip until GI bleed evaluated and cleared for resumption of oral anticoagulant. Magnesium level requested. #4. CAD: CAD s/p CABG and PCI x 2 mid LAD with drug-eluting stents on 02/2023, ECHO 02/2023 showed an EF of 20 to 30%, Intermittent Complete HB/sick sinus syndrome s/p history of pacemaker infection s/p pacemaker extraction and replacement on contralateral side 03/2023, given acute presentation holding coumadin, given IV Vitamin K in the ED, will repeat INR following and in AM with further interventions pending level, once appropriate transition to heparin drip given mechanical valve, holding plavix given now > 6 months but would immediately restart once assure GI bleed controlled. #5. Chronic Kidney Disease Stage III, unclear subtype: Admission BUN/Cr 47/2.33, baseline renal function more recently 2.2-2.4, most recent prior 09/02/2023 creatinine 2.25,, repeat BMP in AM. #6. Severe dysphagia: Most recent GI evaluation during admission 06/2023 with upper endoscopy 06/16/2023 noted most recently prior with abnormal esophageal motility suspicious for esophageal spasm with injection of botulinum toxin, moderate Schatzki ring that was dilated, small hiatal hernia, normal second portion duodenum, biopsies obtained for evaluation of eosinophilic esophagitis. #7. Chronic pain syndrome: Continue home buprenorphine patch cautiously given low blood pressure secondary to acute GI bleed presentation as noted however do not want patient to withdrawal. #8. PAF: We will continue patient home amiodarone regimen, given acute presentation holding coumadin, given IV Vitamin K in the ED, will repeat INR following and in AM with further interventions pending level, once appropriate transition to heparin drip given mechanical valve. Will continue metoprolol but placed very strong hold parameters given low BP upon presentation. #9. 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 #10. Valvular Heart Disease s/p mechanical aortic valve replacement, given acute presentation holding coumadin, given IV Vitamin K in the ED, will repeat INR following and in AM with further interventions pending level, once appropriate transition to heparin drip given mechanical valve. #11. HFrEF: ECHO 02/2023 showed an EF of 20 to 30%, s/p AICD placement, will very judiciously hydrate given history, will place hold parameters on patient's metoprolol and Lasix but give if able, as noted holding Coumadin with IV vitamin K administered in the ED with repeat INR trending with transition to heparin drip once appropriate, continue statin therapy, not on NABIL or/ARB be likely secondary to underlying renal disease, with PRBC may need if BP allows Lasix to tolerate. #12. Hx Intermittent Complete HB/sick sinus syndrome: s/p history of pacemaker infection s/p pacemaker extraction and replacement on contralateral side. #13. Hypertension: Patient with low blood pressure upon presentation associated with #1, will continue patient home metoprolol and Lasix but will place very aggressive strong hold parameters on these therefore likely will not get these medications for at least the next 24 hours until PRBC administered and BP is improved. #14. Hyperlipidemia: We will continue patient on statin therapy. #15. Tobacco Abuse: Encouraged cessation, inpatient consultation per RT, NR if desired. #16. CODE status: Patient YONATAN is his daughter Emily and living will is he believes possibly in place. Discussed CODE status at length including difference between FULL code, DNR-CCA and DNR-CC status. Following discussions about the differences in these status, requested DNR-CCA, no intubation status. Advanced Care Planning Face to Face Time: 16 minutes. Charges/Coding Visit Charges Inpatient E&M: 76057 Init Hosp L3 Procedures Hospitalists Procedures: 47273 Advncd Care Plan 30 Min
[2023-09-22] MEDS: Morphine 4 MG/ML Syringe IV (22:03)
[2023-09-22] MEDS: Ondansetron 4 MG/2 ML Vial IV (22:03)
[2023-09-22 22:09] VITALS: BP 111/57; PULSE 60; RESP 12; TEMP 36.8; O2SAT 99
[2023-09-22 22:45] VITALS: BMI 18.3
[2023-09-22 22:50] VITALS: BP 123/63; PULSE 60; RESP 18; TEMP 36.6; O2SAT 100
[2023-09-22 23:00] VITALS: O2SAT 98
--- NOTE | 2023-09-22 23:00 | EX.PCM.CON.G ---
HPI Consult Data Date of Consult: 09/22/23 HPI Narrative Reason for Consultation: GI bleed HPI Narrative: REBECCA ARRIOLA, is a 83 y/o M with CKD stage III unclear subtype, PAF, Asthma/COPD, Chronic anemia/Fe deficiency anemia, HTN, HLD, Valvular Heart Disease s/p mechanical aortic valve replacement, /sick sinus syndrome s/p history of pacemaker infection s/p pacemaker (ECHO 02/2023 showed an EF of 20 to 30%), CAD s/p CABG and PCI x 2 on 02/2023 who presents to the [facility] ED on 09/22/23 with history of notable fatigue, malaise, dyspnea worse with exertion with difficulty walking . He also admits to black appearing stools prompting eventual ED evaluation. Workup in the ED included T97.1, heart rate 60, BP 92/60, respiratory rate 20, 100% on room air, CBC with WBC 5.1, hemoglobin 7.7, MCV 109.4, platelet 154 with increased immature granulocytes and lymphopenia, coags with INR 11.9, PT 89.7, BMP with chloride 108, BUN/creatinine 47/2.33, glucose 115, troponin 97, BNP 210.8, chest x-ray with degenerative changes with no acute cardiopulmonary findings, stool guaiac positive. In the ED patient administered vitamin K 5 mg x 1. ED physician T+C 2 u per ED physician given difficult match history. In the ED patient administered morphine 4 mg IV x 1 as well as Zofran 4 mg IV x 1. I was consulted for GI bleed secondary to warfarin induced coagulopathy. ON LICENSE OF [facility] Medical History Ambulates with cane Anemia Anemia due to chronic blood loss Anticoagulant long-term use Arthritis Asthma Atherosclerotic heart disease of [place] coronary artery without angina pectoris Atrial fibrillation Back pain due to injury CHF (congestive heart failure) Chronic airway obstruction Chronic anticoagulation Chronic cough Chronic pain Chronic pain syndrome CKD (chronic kidney disease) COPD (chronic obstructive pulmonary disease) COPD (chronic obstructive pulmonary disease) Coronary artery disease Erosion of pacemaker pocket due to and not concurrent with implantation of cardiac pacemaker Essential hypertension Former smoker GERD (gastroesophageal reflux disease) Heart attack HFrEF (heart failure with reduced ejection fraction) High cholesterol History of edema History of GI bleed History of heart attack History of pain when walking History of stress test Hx of fracture of ankle Hx of fracture of ankle Hypertension ICD (implantable cardioverter-defibrillator) in place Injury of back Injury of head and neck Intermittent complete heart block Ischemic cardiomyopathy 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 On home oxygen therapy Osteoporosis Paroxysmal atrial fibrillation Pericardial effusion after operative procedure Persistent atrial fibrillation Pure hypercholesterolemia Restless legs Secondary pulmonary arterial hypertension Sick sinus syndrome Spinal stenosis of lumbar region Stage 3a chronic kidney disease (CKD) Stroke Symptomatic bradycardia TIA (transient ischemic attack) Tobacco use disorder Wears dentures Wears glasses Home Medications albuterol sulfate 90 mcg/actuation breath activated powder inhaler 2 puff inhalation Q4H PRN Shortness Of Breath 09/25/15 [History Last Taken 08/23/22] cholecalciferol (vitamin D3) 25 mcg (1,000 unit) tablet 1,000 unit PO DAILY SUPPLEMENT 09/25/15 [History Last Taken 08/24/22] folic acid 1 mg tablet 1 mg PO QHS SUPPLEMENT 06/24/16 [History Last Taken 08/23/22] pantoprazole 40 mg tablet,delayed release 40 mg PO BID ACID REFLUX 01/02/18 [History Last Taken 08/24/22] tiotropium 2.5 mcg-olodaterol 2.5 mcg/actuation mist for inhalation (Stiolto Respimat) 1 puff inhalation BID ASTHMA 06/18/21 [History Last Taken 08/24/22] ipratropium 0.5 mg-albuterol 3 mg (2.5 mg base)/3 mL nebulization soln 3 ml inhalation 4X/DAY SHORTNESS OF BREATH 11/25/21 [History Last Taken 04/06/22] nitroglycerin 0.4 mg sublingual tablet 0.4 mg sublingual Q5M PRN Chest Pain #25 tabs 09/17/22 [Rx Last Taken Unknown] clopidogrel 75 mg tablet 75 mg PO DAILY antiplatelet 03/29/23 [History Last Taken Unknown] rosuvastatin 40 mg tablet (Crestor) 40 mg PO DAILY cholesterol 03/29/23 [History Last Taken Unknown] furosemide 20 mg tablet 20 mg PO DAILY dose has been decreased #90 tabs 04/25/23 [Rx Last Taken Unknown] potassium chloride 10 mEq tablet,extended release 10 meq PO DAILY #30 tabs 04/25/23 [Rx Last Taken Unknown] amiodarone 200 mg tablet 200 mg PO DAILY afib #90 tabs 04/28/23 [Rx Last Taken Unknown] empagliflozin 10 mg tablet (Jardiance) 10 mg PO DAILY heart health #90 tabs 04/28/23 [Rx Last Taken Unknown] zolpidem 10 mg tablet 10 mg PO QHS sleep 05/03/23 [History Last Taken Unknown] ferrous sulfate 325 mg (65 mg iron) tablet 325 mg PO DAILY IRON SUPPLEMENT 05/24/23 [History Last Taken Unknown] lactulose 10 gram/15 mL (15 mL) oral solution 20 g (30 mL) PO DAILY #1,440 mL 08/01/23 [Rx Last Taken Unknown] enoxaparin 60 mg/0.6 mL subcutaneous syringe 60 mg (0.6 mL) subcut QHS #6 mL 08/08/23 [Rx Last Taken Unknown] warfarin 2 mg tablet 2 mg PO .COMPLEX blood thinner 09/02/23 [History Last Taken Unknown] warfarin 5 mg tablet 5 mg PO .COMPLEX afib 09/02/23 [History Last Taken Unknown] metoprolol succinate 100 mg tablet,extended release 24 hr 100 mg PO Q12H bp 09/22/23 [History Last Taken Unknown] Allergy/AdvReac Type Severity Reaction Status Date / Time No Known Allergies Allergy Verified 09/22/23 17:41 Family History Son , age 44 from [place] CAD (coronary artery disease) Myocardial infarction Sudden cardiac Brother CAD (coronary artery disease) Pt states all nine of his siblings have heart problems Sister CAD (coronary artery disease) Patient states all nine of his siblings have heart problems Other History of mechanical aortic valve replacement Surgical History Cardiac pacemaker in situ H/O cardiac catheterization H/O prosthetic aortic valve replacement History of coronary artery stent placement (~06/28/11) History of coronary artery stent placement History of esophagogastroduodenoscopy (EGD) (~10/2021) History of left heart catheterization History of lumbar fusion History of mechanical aortic valve replacement (~03/27/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 Hx of CABG Presence of biventricular implantable cardioverter-defibrillator (ICD) S/P CABG x 1 (~03/27/93) Status post cardiac surgery Social History (Updated 09/22/23 @ 22:[address] Chichi Tejada MD) household members: family and none housing: house Smoking Status: Current every day smoker tobacco type: cigarettes Smoking packs per day: 0.25 Smoking cigarettes per day: 5.0 alcohol intake: never substance use type: does not use caffeine: No ROS ROS Narrative Admission Review of Systems: CONSTITUTIONAL: No weight loss, fever, chills, + weakness or fatigue. HEENT: Eyes: No visual loss, blurred vision, double vision or yellow sclerae. Ears, Nose, Throat: No hearing loss, sneezing, congestion, runny nose or sore throat. SKIN: No rash or itching, lesions, wounds. CARDIOVASCULAR: No chest pain, chest pressure or chest discomfort, palpitations, edema, orthopnea, syncopal events. RESPIRATORY: + Shortness of breath. No cough or sputum, wheezing, hemoptysis. GASTROINTESTINAL: + Dark black appearing stools, mild anorexia, No nausea, vomiting, diarrhea, abdominal pain, BRBPR. GENITOURINARY: No dysuria, frequency, urgency or retention. NEUROLOGICAL: No headache, dizziness, syncope, paralysis, ataxia, numbness or tingling in the extremities, focal weakness, change in bowel or bladder control, seizure. MUSCULOSKELETAL: + muscle, back pain, joint pain or stiffness. HEMATOLOGIC: + anemia, active GI bleeding, easey bruising. LYMPHATICS: No enlarged nodes. No history of splenectomy. PSYCHIATRIC: No history of depression or anxiety. ENDOCRINOLOGIC: No reports of sweating, cold or heat intolerance. No polyuria or polydipsia. ALLERGIES: No history of asthma, hives, eczema or rhinitis. Physical Exam Narrative Physical Examination: General: Awake, alert, oriented x 3 and cooperative, laying in the ED bed, fatigued. Skin: Normal color, normal turgor, no icterus, no cyanosis except for occasional staged ecchymoses, abrasion. HEENT: AT/NC, EOMI, PERRLA, dry MM, no carotid bruits or JVD noted. Lungs: Diminished, greater bases, proper effort no rales, ronchi or wheezing. Heart: Currently regular/status post pacemaker; no gallop, rub audible, + notable valve click. Abdomen: Soft, NTTP, ND, hyperactive BS, no appreciated HSM. Extremities: No cyanosis, clubbing, or edema. Neurological: Patient awake, alert, oriented as noted, cognitive function intact; pupils equally reactive to light and accommodation, cranial nerves II-XII grossly normal, moving all 4 extremities, no focal deficits, strength severely decreased secondary to acute presentation. Psychiatric: Affect appears flat, fatigued, no acute evidence of depressive or anxiety feelings. Medical Records Data Medical Nutrition Assessment Dietitian: Malnutrition Criteria Met Start: 09/23/23 13:56 Freq: Status: Active Protocol: Document 09/23/23 14:40 RMA (Rec: 09/23/23 14:40 RMA [id number]) Nutrition Malnutrition Evidence of Malnutrition Exists Yes Malnutrition (moderate): Chronic Evidenced By Suboptimal Energy Intake ( Moderate),Weight Loss ( Moderate),Physical Changes ( Moderate) Intake Problem Inadequate Oral Intake Etiology related to GI dysfunction Signs/Symptoms as evidenced by NPO Status Active Problem Clinical Problem Chronic Disease or Condition Related Malnutrition Etiology 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 Add 120mL ensure plus HP 4 times per day w/ medpass as diet advanced beyond clear liquids. Additional ONS as needed once PO adequacy established with meals. Lab / Micro Data 09/23/23 06:53 09/23/23 05:04 Labs: Laboratory Results - last 24 hr 09/22/23 17:45: WBC 5.1, RBC 2.33 L, Hgb 7.7 L, Hct 25.5 L, MCV 109.4 H, MCH 33.0 H, MCHC 30.2 L, RDW Std Deviation 72.6 H, RDW Coeff of [place]aly[place] 18.4 H, Plt Count 154, MPV 11.2, Immature Gran % (Auto) 1.200 H, Neut % (Auto) 77.0 H, Lymph % (Auto) 11.6 L, [place] % (Auto) 9.6, Eos % (Auto) 0.0, Baso % (Auto) 0.6, Absolute Neuts (auto) 3.9, Absolute Lymphs (auto) 0.59 L, Nucleated RBC % 0.4, Differential Comment SCANNED, Hypochromasia 1+, Anisocytosis 2+, Microcytosis 1+, Macrocytosis 1+, PT 89.7 H, INR 11.9 H*, Sodium 142, Potassium 3.7, Chloride 108 H, Carbon Dioxide 23.0, Anion Gap 11, BUN 47 H, Creatinine 2.33 H, Estim Creat Clear Calc 19.33, Est GFR (MDRD) Af Amer 34 L, Est GFR (MDRD) Non-Af 28 L, BUN/Creatinine Ratio 20.2 H, Glucose 115 H, Calcium 9.6, Troponin I High Sens 97 H, B-Natriuretic Peptide 210.8 H 09/22/23 19:07: Blood Type O POSITIVE, Antibody Screen NEGATIVE 09/22/23 21:17: Crossmatch See Detail 09/22/23 23:45: Hgb 7.8 L, Hct 26.0 L, PT 40.3 H, INR 4.2 H*, Troponin I High Sens 107 H 09/23/23 01:27: Troponin I High Sens 97 H 09/23/23 05:04: PT 26.8 H, INR 2.5, Sodium 144, Potassium 3.8, Chloride 111 H, Carbon Dioxide 28.0, Anion Gap 5, BUN 51 H, Creatinine 2.01 H, Estim Creat Clear Calc 22.04, Est GFR (MDRD) Af Amer 41 L, Est GFR (MDRD) Non-Af 34 L, BUN/Creatinine Ratio 25.4 H, Glucose 106, Calcium 8.7, Total Bilirubin 0.50, AST 232 H, ALT 182 H, Alkaline Phosphatase 120 H, Troponin I High Sens 111 H, Total Protein 5.1 L, Albumin 2.7 L, Globulin 2.4, Albumin/Globulin Ratio 1.1 09/23/23 06:53: WBC 5.3, RBC 2.59 L, Hgb 8.1 L, Hct 27.1 L, MCV 104.6 H, MCH 31.3, MCHC 29.9 L, RDW Std Deviation 80.1 H, RDW Coeff of [place] 21.1 H, Plt Count 116 L, MPV 10.8, Immature Gran % (Auto) 1.300 H, Neut % (Auto) 78.3 H, Lymph % (Auto) 9.2 L, [place] % (Auto) 10.2 H, Eos % (Auto) 0.6, Baso % (Auto) 0.4, Absolute Neuts (auto) 4.2, Absolute Lymphs (auto) 0.49 L, Nucleated RBC % 0.6, Anisocytosis 2+ Micro: Microbiology 09/22/23 20:15 Stool Stool Occult Blood (COREEN) - Final Occult Blood Positive Imaging Radiology Impression Chest X-Ray 09/22/23 17:48 IMPRESSION: Degenerative changes, as described above. No demonstrated acute cardiopulmonary process. Electronically Signed: Yusuf Lo MD at 18:20 EST , Assessment & Plan Assessment/Plan (1) GI bleed: PLAN: Plan The patient is an 83 yo with CKD stage III unclear subtype, PAF, Asthma/COPD, Chronic anemia/Fe deficiency anemia, HTN, HLD, Valvular Heart Disease s/p mechanical aortic valve replacement, Hx GI bleed, sick sinus syndrome s/p history of pacemaker infection s/p pacemaker extraction and replacement on contralateral side (ECHO 02/2023 showed an EF of 20 to 30%), CAD s/p CABG and PCI x 2 on 02/2023 who presents to the [facility] ED on 09/22/23 with history of notable fatigue, malaise, dyspnea worse with exertion with difficulty walking over the last 4 days with noted black appearing stools prompting eventual ED evaluation. Acute GI Bleed w/ resultant Acute Blood Loss Anemia he has had a history of peptic ulcer disease in the past. He will need to to undergo an upper endoscopy to evaluate his upper GI tract. Him and his daughter were explained alternatives, risk, benefits including not withstanding bleeding, infection, sepsis, perforation, need for emergent surgery and . He will have an ASA of 3. Most recent GI evaluation during admission 06/2023 with upper endoscopy 06/16/2023 noted most recently prior with abnormal esophageal motility suspicious for esophageal spasm with injection of botulinum toxin, moderate Schatzki ring that was dilated, small hiatal hernia, normal second portion duodenum, biopsies obtained for evaluation of eosinophilic esophagitis. Given unclear liver disease to be cautious will maintain on IV rocephin. PT/OT/CM consulted for discharge planning. Charges/Coding Visit Charges Inpatient E&M: 87128 Init Hosp L3
[2023-09-22] MEDS: Pantoprazole Sodium 80 MG in 0.9% Normal Saline (50mL Bag) 15 ML 420 MG IV BOLUS (23:19)
[2023-09-22] MEDS: 0.9% Normal Saline (1000mL) 1,000 ML 100 ML IV (23:24)
[2023-09-22] MEDS: Menthol/Lanolin/Calamine/Znox 113 GM Tube 1 APPLIC TOPICAL (23:30)
[2023-09-22] MEDS: Folic Acid 1 MG Tablet PO (23:34)
[2023-09-22] MEDS: Atorvastatin Calcium 80 MG Tablet PO (23:34)
[2023-09-22] MEDS: Pantoprazole Sodium 80 MG in 0.9% Normal Saline (100mL Bag) 80 ML 10 MG CONT INF (23:36)
[2023-09-23] VITALS (17 sets, daily range): BP systolic 92–107; BP diastolic 45–60; PULSE 59–88; RESP 12–20; TEMP 36–36.7; O2SAT 96–100; BMI 18.3
[2023-09-23 00:09] LABS: Prothrombin Time (Protime)PT. 40.3 SECONDS (11.7-14.9)
[2023-09-23 00:13] LABS: International Normalized Ratio 4.2
[2023-09-23 00:19] LABS: Hemoglobin 7.8 g/dL (13.0-16.5); Troponin-I HS 107 pg/mL (3.0-78.0)
[2023-09-23 02:27] LABS: Troponin-I HS 97 pg/mL (3.0-78.0)
[2023-09-23 05:23] LABS: International Normalized Ratio 2.5; Prothrombin Time (Protime)PT. 26.8 SECONDS (11.7-14.9)
[2023-09-23 05:37] LABS: ALB/GLOB Ratio 1.1 RATIO (0.9-2.4); AST(SGOT) 232 U/L (15-37); Alanine Aminotransfer ALT/SGPT 182 U/L (16-61); Albumin, Serum 2.7 g/dL (3.2-5.0); Alkaline Phosphatase 120 U/L (45-117); Anion Gap 5 (5-15); BUN 51 mg/dL (7-18); BUN/Creat Ratio 25.4 RATIO (10-20); Calcium,Total 8.7 mg/dL (8.5-10.1); Chloride 111 mmol/L (98-107); Creatinine, Serum 2.01 mg/dL (0.70-1.30); EST Glomerular Filtration Rate 34 mL/min (>60); Est Glom Filt Rate - Afr Amer 41 mL/min (>60); Estimated Creatinine Clearance 22.04 ml/min; Globulin 2.4 g/dL (2.2-4.2); Glucose 106 mg/dL (74-106); Potassium 3.8 mmol/L (3.5-5.1); Protein, Total 5.1 g/dL (6.4-8.2); Sodium Level 144 mmol/L (136-145); Troponin-I HS 111 pg/mL (3.0-78.0)
[2023-09-23] MEDS: Ipratropium/Albuterol Sulfate 3 ML AMPUL.NEB INHALATION ×3 (06:57→19:37)
[2023-09-23 07:01] LABS: Absolute Lymphocyte Count 0.49 X10^3/uL (0.83-4.51); Absolute Neutrophil Count 4.2 X10^3/uL (2.0-7.7); Basophil# 0.02 X10^3/uL; Basophil% 0.4 % (0-1); Eosinophil# 0.03 X10^3/uL; Eosinophils% 0.6 % (0-5); Hematocrit 27.1 % (40-54); Hemoglobin 8.1 g/dL (13.0-16.5); Lymphocyte # 0.49 X10^3/ul (0.83-4.51); Lymphocyte % 9.2 % (19-41); Mean Corp Hgb Conc 29.9 g/dL (32-36); Mean Corpuscular Hgb 31.3 pg (27.0-32.0); Mean Corpuscular Volume 104.6 fL (80-94); Mean Platelet Vol. 10.8 fl (6.2-12.0); Monocyte# 0.54 X10^3/uL; Monocyte% 10.2 % (0-10); NRBC Flagged by Analyzer 0.6 % (0-5); Neutrophil # 4.15 X10^3/uL (2.7-7.7); Neutrophil % 78.3 % (47-70); POSITIVE DIFFERENTIAL YES; POSITIVE MORPHOLOGY YES; Platelet Count 116 K/mm3 (150-450); RBC Distribution Width CV 21.1 % (11.6-14.6); RBC Distribution Width SD 80.1 fl (35.1-43.9); Red Blood Count 2.59 M/mm3 (4.6-6.2); White Blood Count 5.3 K/mm3 (4.4-11.0)
--- NOTE | 2023-09-23 07:14 | PCM.PN.HOSP ---
Reason for Visit Reason for Visit: Diagnoses Gastrointestinal hemorrhage, unspecified (09/22/23) Objective Data Objective Data Vital Signs: Vital Signs Temp Pulse Resp BP Pulse Ox O2 Del Method 98.0 F 60 18 96/54 L 96 Room Air 09/23/23 05:02 09/23/23 05:02 09/23/23 05:02 09/23/23 05:02 09/23/23 05:02 09/23/23 05:02 Oxygen Delivery Method Room Air Weight: 127 lb 13.89 oz Body Mass Index (BMI) 18.3 Intake & Output: Intake and Output for Last 24 Hours 09/21/23 09/22/23 09/23/23 23:59 23:59 23:59 Intake Total 85.5 / 85.5 569.33 / 569.33 Output Total 300 / 300 350 / 350 Balance -214.5 / -214.5 219.33 / 219.33 Lab / Micro Data 09/23/23 06:53 09/23/23 05:04 Labs: Laboratory Results - last 24 hr 09/22/23 17:45: WBC 5.1, RBC 2.33 L, Hgb 7.7 L, Hct 25.5 L, MCV 109.4 H, MCH 33.0 H, MCHC 30.2 L, RDW Std Deviation 72.6 H, RDW Coeff of [place] 18.4 H, Plt Count 154, MPV 11.2, Immature Gran % (Auto) 1.200 H, Neut % (Auto) 77.0 H, Lymph % (Auto) 11.6 L, [place] % (Auto) 9.6, Eos % (Auto) 0.0, Baso % (Auto) 0.6, Absolute Neuts (auto) 3.9, Absolute Lymphs (auto) 0.59 L, Nucleated RBC % 0.4, Differential Comment SCANNED, Hypochromasia 1+, Anisocytosis 2+, Microcytosis 1+, Macrocytosis 1+, PT 89.7 H, INR 11.9 H*, Sodium 142, Potassium 3.7, Chloride 108 H, Carbon Dioxide 23.0, Anion Gap 11, BUN 47 H, Creatinine 2.33 H, Estim Creat Clear Calc 19.33, Est GFR (MDRD) Af Amer 34 L, Est GFR (MDRD) Non-Af 28 L, BUN/Creatinine Ratio 20.2 H, Glucose 115 H, Calcium 9.6, Troponin I High Sens 97 H, B-Natriuretic Peptide 210.8 H 09/22/23 19:07: Blood Type O POSITIVE, Antibody Screen NEGATIVE 09/22/23 21:17: Crossmatch See Detail 09/22/23 23:45: Hgb 7.8 L, Hct 26.0 L, PT 40.3 H, INR 4.2 H*, Troponin I High Sens 107 H 09/23/23 01:27: Troponin I High Sens 97 H 09/23/23 05:04: PT 26.8 H, INR 2.5, Sodium 144, Potassium 3.8, Chloride 111 H, Carbon Dioxide 28.0, Anion Gap 5, BUN 51 H, Creatinine 2.01 H, Estim Creat Clear Calc 22.04, Est GFR (MDRD) Af Amer 41 L, Est GFR (MDRD) Non-Af 34 L, BUN/Creatinine Ratio 25.4 H, Glucose 106, Calcium 8.7, Total Bilirubin 0.50, AST 232 H, ALT 182 H, Alkaline Phosphatase 120 H, Troponin I High Sens 111 H, Total Protein 5.1 L, Albumin 2.7 L, Globulin 2.4, Albumin/Globulin Ratio 1.1 Micro: Microbiology 09/22/23 20:15 Stool Stool Occult Blood (COREEN) - Final Occult Blood Positive Radiography Diagnostic Testing: Radiology Impression Chest X-Ray 09/22/23 17:48 IMPRESSION: Degenerative changes, as described above. No demonstrated acute cardiopulmonary process. Electronically Signed: Yusuf Lo MD at 18:20 EST , Physical Exam Narrative Seen and examined. Patient is not feeling dizziness or lightheadedness. Has mechanical aortic valve. Right-sided AICD. Multiple comorbidities. No acute chest pain or shortness of breath. Patient denies acute hematemesis melena or hematochezia but patient history not clear as sometimes. Dark stool. Physical exam General: Alert, Oriented x3, Cooperative HEENT: Atraumatic, PERRLA, EOMI, Normocephalic Oral: No Gingival or Mucosal Lesions/ Ulcerations Neck: Supple, No JVD, Negative Carotid Bruits Chest wall/Lungs: Air entry diminished in bilateral lung bases. No crepitation/rhonchi Cardiovascular: Regular rate, Regular Rhythm, Normal S1, Normal S2, mechanical aortic valve click. Systolic murmur. Status post AICD Abdomen: Bowel Sounds Present, Soft, Non Tender, Non-Distended : No dysuria. No renal angle tenderness. No suprapubic tenderness. Extremities: No edema, Capillary Refill Less than 3 Seconds Skin: No rashes, No breakdown Musculoskeletal: No Tenderness to Palpation of Joints or Extremities Neurological: Cranial nerves II-XII grossly intact, DTR 2+/4. No acute focal neurological deficit. Psych/Mental Status: Flat affect. Assessment & Plan Assessment/Plan (1) GI bleed: PLAN: Plan The patient is an 83 y/o M came to ED for shortness of breath At rest, worse with exertion/Dyspnea on exertion and generalized weakness getting worse over the past 4 days. Patient could not walk after few steps . No nausea or vomiting. Denies hematemesis or coffee-ground emesis, melena or hematochezia. History of GI bleed in the past with anemia. #1. Acute GI Bleed w/ resultant Acute Blood Loss Anemia on Chronic anemia/Fe deficiency anemia with associated mild hypotension with ongoing outpatient evaluation of note for possible liver fibrosis:Patient is admitted in PCU. GI is consulted. EGD on 06/16/2023 Impressions : - Abnormal esophageal motility, suspicious for esophageal spasm. Injected with botulinum toxin. - Moderate Schatzki ring. Dilated. - Small hiatal hernia. - Normal second portion of the duodenum. - Biopsies were taken with a cold forceps for evaluation of eosinophilic esophagitis. 09/22: Patient has history of peptic ulcer disease. EGD is planned. Alcohol blood positive. Admitted with H&H 7.7/25%. Last H&H 8.1/27.7. Platelet count 116,000. 2. Paroxysmal A-fib on warfarin, mechanical aortic valve: Patient was given vitamin K x 1 dose. Brain hemostasis controlled will need to put on IV heparin drip. 09/22: INR 2.5. #4. 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 Chronic Kidney Disease stage IV: Creatinine clearance is about 20 mill per minute. Baseline is that is around 2.25. Currently 2.01. #6. Severe dysphagia: Most recent GI evaluation during admission 06/2023 with upper endoscopy 06/16/2023 noted most recently prior with abnormal esophageal motility suspicious for esophageal spasm with injection of botulinum toxin, moderate Schatzki ring that was dilated, small hiatal hernia, normal second portion duodenum, biopsies obtained for evaluation of eosinophilic esophagitis. #7. Chronic pain syndrome: Continue home buprenorphine patch cautiously given low blood pressure secondary to acute GI bleed presentation as noted however do not want patient to withdrawal. #8. PAF: We will continue patient home amiodarone regimen, given acute presentation holding coumadin, given IV Vitamin K in the ED, will repeat INR following and in AM with further interventions pending level, once appropriate transition to heparin drip given mechanical valve. Will continue metoprolol but placed very strong hold parameters given low BP upon presentation. #9. 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 #10. Valvular Heart Disease s/p mechanical aortic valve replacement, given acute presentation holding coumadin, given IV Vitamin K in the ED, will repeat INR following and in AM with further interventions pending level, once appropriate transition to heparin drip given mechanical valve. #11. HFrEF: ECHO 02/2023 showed an EF of 20 to 30%, s/p AICD placement, will very judiciously hydrate given history, will place hold parameters on patient's metoprolol and Lasix but give if able, as noted holding Coumadin with IV vitamin K administered in the ED with repeat INR trending with transition to heparin drip once appropriate, continue statin therapy, not on NABIL or/ARB be likely secondary to underlying renal disease, with PRBC may need if BP allows Lasix to tolerate. #12. Hx Intermittent Complete HB/sick sinus syndrome: s/p history of pacemaker infection s/p pacemaker extraction and replacement on contralateral side. #13. Hypertension: Patient with low blood pressure upon presentation associated with #1, will continue patient home metoprolol and Lasix but will place very aggressive strong hold parameters on these therefore likely will not get these medications for at least the next 24 hours until PRBC administered and BP is improved. #14. Hyperlipidemia: We will continue patient on statin therapy. #15. Tobacco Abuse: Encouraged cessation, inpatient consultation per RT, NR if desired. #16. CODE status: Patient YONATAN is his daughter Emily and living will is he believes possibly in place. Discussed CODE status at length including difference between FULL code, DNR-CCA and DNR-CC status. Following discussions about the differences in these status, requested DNR-CCA, no intubation status. A Charges/Coding Visit Charges Inpatient E&M: 32543 Subs Hosp L2
[2023-09-23 07:15] LABS: Differential Indicated SCAN CRITERIA MET
[2023-09-23 08:01] LABS: Anisocytosis 2+
[2023-09-23] MEDS: Potassium Chloride Oral Tablet 10 MEQ PO (10:06)
[2023-09-23] MEDS: Ferrous Sulfate 325 MG Tablet PO (10:06)
[2023-09-23] MEDS: Menthol/Lanolin/Calamine/Znox 113 GM Tube 1 APPLIC TOPICAL ×2 (10:06→21:02)
[2023-09-23] MEDS: Amiodarone 200 MG Tablet PO (10:06)
[2023-09-23] MEDS: Ceftriaxone 1 GM/50 ML BAG IV (10:13)
--- NOTE | 2023-09-23 11:42 | CASEMGMT ---
SURY MUNOZ Assessment Face to Face with patient for initial transition planning/care coordination assessment. SURY MUNOZ introduced self and role at [facility], pt voices understanding. Pt is A&Ox4 and is resting comfortably in bed and is calm. Care providers, pharmacy, and demographics verified. Admitting dx: GI Bleed LACE Strata: 3 PCP: Guillermo Pritchard Specialists: Friend, VIKTORIA, Pain Management in [place] Preferred Pharmacy: [facility] Insurance: [email or web address] [facility] Prescription Benefit: Yes LNOK: Emily Montejo (POA) Living Arrangements: Pt lives alone in a single story home with a BM but the pt does not go downstairs. Pt states there is a ramp to enter the home. Pt states that the pt daughter lives [address]. ADLs/IADLs: States ind Transportation: Self, daughter DME: Pt states that he wears 2L of O2 at night via [place]. Pt states this is through [employer]. TC to [employer] from [employer] at this time and she states that the pt current order is 2L with exertion. Pt reports that he has a concentrator, Pulse Ox, and portable tanks at home. Pt states that he does not have a tank with him at this time and states that his daughter can bring a tank in if needed. Pt also states that he has a walk-in shower with GB and a seat. Pt also has a walker, cane, rollator, nebulizer, and inhaler. Pt states that he has mainly been using the rollator lately. HHC/SNF: Denies SNF. States history of [facility] HHC. Pt?s goal: Home Plan: 6-Click is 20. therapy eval pending. Pt states that he wants to wait and see how he does in the hospital before setting any additional therapy up. Pt is anticipating home with no needs at time of assessment. CM to follow for home going needs including oxygen and possible therapy for safe DC home. Rachel Haile RN, CM
--- NOTE | 2023-09-23 11:58 | CASEMGMT ---
Green sheet regarding O2 placed in chart incase of weekend DC
[2023-09-23] MEDS: Acetaminophen 325 MG Tablet 650 MG PO (13:52)
[2023-09-23] MEDS: 0.9% Normal Saline (1000mL) 1,000 ML 15 ML IV (14:48)
--- NOTE | 2023-09-23 16:26 | OP.CCLET_ITS ---
09/23/2023 Guillermo Pritchard MD [address] [phone] Re : Upper GI endoscopy procedure for Kash Montejo Dear Dr. Pritchard This procedure was performed on Saturday, September 23, 2023. My impressions and recommendations are as follows: Impressions : - Normal esophagus. - A medium amount of food (residue) in the stomach. - Oozing gastric ulcers with pigmented material. Injected. Treated with a heater probe. - No gross lesions in the duodenal bulb. - Retained food in the duodenum. - No specimens collected. Recommendations : - [facility]. - Full liquid diet today. - Continue present medications. My findings are described in the full procedure note, which is enclosed. If I can be of further assistance, please feel free to contact me at . Sincerely, Fazal Muir, 09/23/2023 4:25:54 PM This report has been signed electronically.
--- NOTE | 2023-09-23 16:26 | OP.EGD_ITS ---
Patient Name: Kash Montejo Procedure Date: 09/23/2023 3:55 PM Date of : 1940 Age: 83 Procedure: Upper GI endoscopy Indications: Melena Providers: Fazal Muir DO Referring MD: Chichi Tejada Medicines: Monitored Anesthesia Care Patient Profile: This is an 83 year old male. Refer to note in patient chart for documentation of history and physical. Patient has symptoms of acute epigastric abdominal pain. Complications: No immediate complications. Procedure: Pre-Anesthesia Assessment: - Prior to the procedure, a History and Physical was performed, and patient medications and allergies were reviewed. The patient is competent. The risks and benefits of the procedure and the sedation options and risks were discussed with the patient. All questions were answered and informed consent was obtained. Patient identification and proposed procedure were verified by the physician in the pre-procedure area. Mental Status Examination: alert and oriented. Airway Examination: normal oropharyngeal airway and neck mobility. Respiratory Examination: clear to auscultation. CV Examination: normal. Prophylactic Antibiotics: The patient does not require prophylactic antibiotics. Prior Anticoagulants: The patient has taken no anticoagulant or antiplatelet agents. ASA Grade Assessment: IV - A patient with severe systemic disease that is a constant threat to life. After reviewing the risks and benefits, the patient was deemed in satisfactory condition to undergo the procedure. The anesthesia plan was to use monitored anesthesia care (MAC). Immediately prior to administration of medications, the patient was re-assessed for adequacy to receive sedatives. The heart rate, respiratory rate, oxygen saturations, blood pressure, adequacy of pulmonary ventilation, and response to care were monitored throughout the procedure. The physical status of the patient was re-assessed after the procedure. After obtaining informed consent, the endoscope was passed under direct vision. Throughout the procedure, the patient's blood pressure, pulse, and oxygen saturations were monitored continuously. The gastroscope was introduced through the mouth, and advanced to the second part of duodenum. The upper GI endoscopy was accomplished without difficulty. The patient tolerated the procedure well. Scope In: 4:02:32 PM Scope Out: 4:11:41 PM Total Procedure Duration Time 0 hours 9 minutes 9 seconds Findings: The examined esophagus was normal. A medium amount of food (residue) was found in the gastric body. Three oozing linear gastric ulcers with pigmented material were found in the gastric body. The largest lesion was 6 mm in largest dimension. Area was successfully injected with 5 mL of a 0.1 mg/mL solution of epinephrine for drug delivery. Coagulation for hemostasis using heater probe was successful. Estimated blood loss was minimal. No gross lesions were noted in the duodenal bulb. Food (residue) was found in the duodenal bulb, in the first portion of the duodenum and in the second portion of the duodenum. Impression: - Normal esophagus. - A medium amount of food (residue) in the stomach. - Oozing gastric ulcers with pigmented material. Injected. Treated with a heater probe. - No gross lesions in the duodenal bulb. - Retained food in the duodenum. - No specimens collected. Recommendation: - Return patient to [facility] for [facility] care. - Full liquid diet today. - Continue present medications. Procedure Code(s): --- Professional --- 07423, Esophagogastroduodenoscopy, flexible, transoral; with control of bleeding, any method 43331, 59,51, Esophagogastroduodenoscopy, flexible, transoral; with directed submucosal injection(s), any substance CPT copyright 2021 [employer]. All rights reserved. The codes documented in this report are preliminary and upon crystal finisher review may be revised to meet current compliance requirements. Fazal Muir DO 09/23/2023 4:25:54 PM This report has been signed electronically. Number of Addenda: 0 Note Initiated On: 09/23/2023 3:55 PM
[2023-09-23] MEDS: Atorvastatin Calcium 80 MG Tablet PO (21:04)
[2023-09-23] MEDS: Folic Acid 1 MG Tablet PO (21:05)
[2023-09-23] MEDS: Pantoprazole Sodium 40 MG in 0.9% Normal Saline (100mL MB+) 100 ML 330 MG IV (21:05)
[2023-09-23] MEDS: MELATONIN 3 MG TABLET PO (23:41)
[2023-09-24] VITALS (10 sets, daily range): BP systolic 97–109; BP diastolic 50–56; PULSE 59–88; RESP 14–19; TEMP 36.2–37.8; O2SAT 94–100; BMI 19.3
[2023-09-24] MEDS: Ipratropium/Albuterol Sulfate 3 ML AMPUL.NEB INHALATION ×2 (07:35→19:35)
[2023-09-24] MEDS: Potassium Chloride Oral Tablet 10 MEQ PO (07:46)
[2023-09-24] MEDS: Amiodarone 200 MG Tablet PO (07:46)
[2023-09-24] MEDS: Ferrous Sulfate 325 MG Tablet PO (07:46)
[2023-09-24] MEDS: Ceftriaxone 1 GM/50 ML BAG IV (07:47)
[2023-09-24] MEDS: Furosemide 20 MG Tablet PO (07:47)
[2023-09-24] MEDS: Pantoprazole Sodium 40 MG in 0.9% Normal Saline (100mL MB+) 100 ML 330 MG IV ×2 (07:47→21:53)
[2023-09-24] MEDS: Menthol/Lanolin/Calamine/Znox 113 GM Tube 1 APPLIC TOPICAL ×3 (07:49→21:50)
[2023-09-24 07:51] LABS: Absolute Lymphocyte Count 0.47 X10^3/uL (0.83-4.51); Absolute Neutrophil Count 4.5 X10^3/uL (2.0-7.7); Basophil# 0.04 X10^3/uL; Basophil% 0.7 % (0-1); Eosinophil# 0.05 X10^3/uL; Eosinophils% 0.9 % (0-5); Hematocrit 27.3 % (40-54); Hemoglobin 8.2 g/dL (13.0-16.5); Lymphocyte # 0.47 X10^3/ul (0.83-4.51); Lymphocyte % 8.5 % (19-41); Mean Corpuscular Hgb 31.7 pg (27.0-32.0); Mean Corpuscular Volume 105.4 fL (80-94); Mean Platelet Vol. 10.3 fl (6.2-12.0); Monocyte# 0.46 X10^3/uL; Monocyte% 8.3 % (0-10); NRBC Flagged by Analyzer 0 % (0-5); Neutrophil # 4.45 X10^3/uL (2.7-7.7); Neutrophil % 80.9 % (47-70); POSITIVE DIFFERENTIAL YES; POSITIVE MORPHOLOGY YES; Platelet Count 117 K/mm3 (150-450); RBC Distribution Width CV 21.9 % (11.6-14.6); RBC Distribution Width SD 82.9 fl (35.1-43.9); Red Blood Count 2.59 M/mm3 (4.6-6.2); White Blood Count 5.5 K/mm3 (4.4-11.0)
[2023-09-24 07:55] LABS: Differential Indicated SCAN CRITERIA MET
[2023-09-24 08:01] LABS: International Normalized Ratio 1.6; Prothrombin Time (Protime)PT. 19.2 SECONDS (11.7-14.9)
[2023-09-24 08:07] LABS: AST(SGOT) 179 U/L (15-37); Alanine Aminotransfer ALT/SGPT 150 U/L (16-61); Albumin, Serum 2.6 g/dL (3.2-5.0); Alkaline Phosphatase 111 U/L (45-117); Anion Gap 5 (5-15); BUN 45 mg/dL (7-18); BUN/Creat Ratio 21.5 RATIO (10-20); Calcium,Total 8.1 mg/dL (8.5-10.1); Chloride 115 mmol/L (98-107); Creatinine, Serum 2.09 mg/dL (0.70-1.30); EST Glomerular Filtration Rate 32 mL/min (>60); Est Glom Filt Rate - Afr Amer 39 mL/min (>60); Estimated Creatinine Clearance 22.33 ml/min; Globulin 2.6 g/dL (2.2-4.2); Glucose 100 mg/dL (74-106); Potassium 3.9 mmol/L (3.5-5.1); Protein, Total 5.2 g/dL (6.4-8.2); Sodium Level 145 mmol/L (136-145)
[2023-09-24 08:33] LABS: Anisocytosis 2+; Differential Comment SCANNED; Macrocytosis 1+; Microcytosis 1+
[2023-09-24] MEDS: Acetaminophen 325 MG Tablet 650 MG PO ×2 (10:04→21:51)
[2023-09-24] MEDS: Mag Hydrox/Al Hydrox/Simeth 30 ML UDC PO (10:04)
[2023-09-24] MEDS: Bisacodyl 5 MG Tablet 10 MG PO (10:51)
[2023-09-24] MEDS: Bisacodyl 10 MG Suppository RC (10:52)
--- NOTE | 2023-09-24 13:37 | PN.HOSP_ITS ---
Reason for Visit Reason for Visit: Diagnoses Gastrointestinal hemorrhage, unspecified (09/22/23) Objective Data Objective Data Vital Signs: Vital Signs Temp Pulse Resp BP Pulse Ox O2 Del Method 97.3 F L 59 L 18 108/52 L 99 Room Air 09/24/23 07:42 09/24/23 07:48 09/24/23 07:42 09/24/23 07:48 09/24/23 07:42 09/24/23 08:00 Oxygen Delivery Method Room Air Weight: 134 lb 11.239 oz Body Mass Index (BMI) 19.3 Intake & Output: Intake and Output for Last 24 Hours 09/22/23 09/23/23 09/24/23 23:59 23:59 23:59 Intake Total 85.5 / 85.5 1379.33 / 1379.33 540.25 / 540.25 Output Total 300 / 300 650 / 650 450 / 450 Balance -214.5 / -214.5 729.33 / 729.33 90.25 / 90.25 Medical Nutrition Assessment Dietitian: Malnutrition Criteria Met Start: 09/23/23 13:56 Freq: Status: Active Protocol: Document 09/23/23 14:40 RMA (Rec: 09/23/23 14:40 RMA [id number]) Nutrition Malnutrition Evidence of Malnutrition Exists Yes Malnutrition (moderate): Chronic Evidenced By Suboptimal Energy Intake ( Moderate),Weight Loss ( Moderate),Physical Changes ( Moderate) Intake Problem Inadequate Oral Intake Etiology related to GI dysfunction Signs/Symptoms as evidenced by NPO Status Active Problem Clinical Problem Chronic Disease or Condition Related Malnutrition Etiology 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 Add 120mL ensure plus HP 4 times per day w/ medpass as diet advanced beyond clear liquids. Additional ONS as needed once PO adequacy established with meals. Lab / Micro Data 09/24/23 07:42 09/24/23 07:42 Labs: Laboratory Results - last 24 hr 09/24/23 07:42: WBC 5.5, RBC 2.59 L, Hgb 8.2 L, Hct 27.3 L, MCV 105.4 H, MCH 31.7, MCHC 30.0 L, RDW Std Deviation 82.9 H, RDW Coeff of Kalyan 21.9 H, Plt Count 117 L, MPV 10.3, Immature Gran % (Auto) 0.700, Neut % (Auto) 80.9 H, Lymph % (Auto) 8.5 L, [place] % (Auto) 8.3, Eos % (Auto) 0.9, Baso % (Auto) 0.7, Absolute Neuts (auto) 4.5, Absolute Lymphs (auto) 0.47 L, Nucleated RBC % 0, Differential Comment SCANNED, Anisocytosis 2+, Microcytosis 1+, Macrocytosis 1+, PT 19.2 H, INR 1.6, Sodium 145, Potassium 3.9, Chloride 115 H, Carbon Dioxide 25.0, Anion Gap 5, BUN 45 H, Creatinine 2.09 H, Estim Creat Clear Calc 22.33, Est GFR (MDRD) Af Amer 39 L, Est GFR (MDRD) Non-Af 32 L, BUN/Creatinine Ratio 21.5 H, Glucose 100, Calcium 8.1 L, Total Bilirubin 0.50, AST 179 H, ALT 150 H, Alkaline Phosphatase 111, Total Protein 5.2 L, Albumin 2.6 L, Globulin 2.6, Albumin/Globulin Ratio 1.0 Micro: Microbiology 09/22/23 20:15 Stool Stool Occult Blood (COREEN) - Final Occult Blood Positive Physical Exam Narrative Seen and examined. Patient complain of abdominal pain mid abdomen after he ate breakfast. He had last bowel movement 2 days ago but passing flatus. He has history of constipation and he states sometimes he has to strain and hard feces comes out. Denies rectal pain but feels rectal sensation that something is stuck. Has mechanical aortic valve. Right-sided AICD. Multiple comorbidities. No acute chest pain or shortness of breath. Patient denies acute hematemesis melena or hematochezia but patient history not clear as sometimes. Dark stool. No further GI bleed. Physical exam General: Alert, Oriented x3, Cooperative HEENT: Atraumatic, PERRLA, EOMI, Normocephalic Oral: No Gingival or Mucosal Lesions/ Ulcerations Neck: Supple, No JVD, Negative Carotid Bruits Chest wall/Lungs: Air entry diminished in bilateral lung bases. No crepitation/rhonchi Cardiovascular: Regular rate, Regular Rhythm, Normal S1, Normal S2, mechanical aortic valve click. Systolic murmur. Status post AICD Abdomen: Bowel Sounds Present, Soft, generalized tenderness present all over abdomen with mild voluntary guarding. : No dysuria. No renal angle tenderness. No suprapubic tenderness. Extremities: No edema, Capillary Refill Less than 3 Seconds Skin: No rashes, No breakdown Musculoskeletal: No Tenderness to Palpation of Joints or Extremities. ROM intact Neurological: Cranial nerves II-XII grossly intact, DTR 2+/4. No acute focal neurological deficit. Psych/Mental Status: Flat affect. Assessment & Plan Assessment/Plan (1) GI bleed: PLAN: Plan The patient is an 83 y/o M came to ED for shortness of breath At rest, worse with exertion/Dyspnea on exertion and generalized weakness getting worse over the past 4 days. Patient could not walk after few steps . No nausea or vomiting. Denies hematemesis or coffee-ground emesis, melena or hematochezia. History of GI bleed in the past with anemia. #1. Acute GI Bleed w/ resultant Acute Blood Loss Anemia on Chronic anemia/Fe deficiency anemia with associated mild hypotension with ongoing outpatient evaluation of note for possible liver fibrosis:Patient is admitted in PCU. GI is consulted. EGD on 06/16/2023 Impressions : - Abnormal esophageal motility, suspicious for esophageal spasm. Injected with botulinum toxin. - Moderate Schatzki ring. Dilated. - Small hiatal hernia. - Normal second portion of the duodenum. - Biopsies were taken with a cold forceps for evaluation of eosinophilic esophagitis. 09/22: Patient has history of peptic ulcer disease. EGD is planned. Alcohol blood positive. Admitted with H&H 7.7/25%. Last H&H 8.127.7. Platelet count 116,000. 09/23: EGD was done yesterday on 09/22. Complain of abdominal pain 7/10 intensity. No BM for 2 days. Has rectal urge/sensation and feels something stuck there. Dulcolax 10 mg oral and suppository given but no BM. Tried soapsuds enema if does not move, will order CT abdomen/pelvis with oral contrast. Continue IV PPI. Hemoglobin 8.2/27%. Platelet count 117,000. Impression: - Normal esophagus. - A medium amount of food (residue) in the stomach. - Oozing gastric ulcers with pigmented material. Injected. Treated with a heater probe. - No gross lesions in the duodenal bulb. - Retained food in the duodenum. - No specimens collected. 2. Paroxysmal A-fib on warfarin, mechanical aortic valve: Patient was given vitamin K x 1 dose. Brain hemostasis controlled will need to put on IV heparin drip. 09/22: INR 2.5. #4. 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 Chronic Kidney Disease stage IV: Creatinine clearance is about 20 mill per minute. Baseline is that is around 2.25. Currently 2.01. #6. Severe dysphagia: Most recent GI evaluation during admission 06/2023 with upper endoscopy 06/16/2023 noted most recently prior with abnormal esophageal motility suspicious for esophageal spasm with injection of botulinum toxin, moderate Schatzki ring that was dilated, small hiatal hernia, normal second portion duodenum, biopsies obtained for evaluation of eosinophilic esophagitis. #7. Chronic pain syndrome: Continue home buprenorphine patch cautiously given low blood pressure secondary to acute GI bleed presentation as noted however do not want patient to withdrawal. #8. PAF: We will continue patient home amiodarone regimen, given acute presentation holding coumadin, given IV Vitamin K in the ED, will repeat INR following and in AM with further interventions pending level, once appropriate transition to heparin drip given mechanical valve. Will continue metoprolol but placed very strong hold parameters given low BP upon presentation. 09/23: INR is 1.6. Will start on IV heparin drip. #9. 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 #10. Valvular Heart Disease s/p mechanical aortic valve replacement, given acute presentation holding coumadin, given IV Vitamin K in the ED, will repeat INR following and in AM with further interventions pending level, once appropriate transition to heparin drip given mechanical valve. #11. HFrEF: ECHO 02/2023 showed an EF of 20 to 30%, s/p AICD placement, will very judiciously hydrate given history, will place hold parameters on patient's metoprolol and Lasix but give if able, as noted holding Coumadin with IV vitamin K administered in the ED with repeat INR trending with transition to heparin drip once appropriate, continue statin therapy, not on NABIL or/ARB be likely secondary to underlying renal disease, with PRBC may need if BP allows Lasix to tolerate. #12. Hx Intermittent Complete HB/sick sinus syndrome: s/p history of pacemaker infection s/p pacemaker extraction and replacement on contralateral side. #13. Hypertension: Patient with low blood pressure upon presentation associated with #1, will continue patient home metoprolol and Lasix but will place very aggressive strong hold parameters on these therefore likely will not get these medications for at least the next 24 hours until PRBC administered and BP is improved. #14. Hyperlipidemia: We will continue patient on statin therapy. #15. Tobacco Abuse: Encouraged cessation, inpatient consultation per RT, NR if desired. #16. CODE status: Patient YONATAN is his daughter Emily and living will is he believes possibly in place. Discussed CODE status at length including difference between FULL code, DNR-CCA and DNR-CC status. Following discussions about the differences in these status, requested DNR-CCA, no intubation status. A Charges/Coding Visit Charges Inpatient E&M: 87303 Subs Hosp L2
--- NOTE | 2023-09-24 13:47 | CT_ITS ---
INDICATION: abdominal pain, constipation EXAMINATION: CT ABDOMEN AND PELVIS WITHOUT CONTRAST - CT Abdomen And Pelvis W/O Contrast Injection TECHNIQUE: Helically acquired images were obtained of the abdomen and pelvis without oral or IV contrast. A radiation dose optimization technique was used for this scan. IV Contrast dosage and agent: None. Oral contrast: None. RADIATION DOSAGE (If Supplied By Facility): CTDIvol = ( 7.89 ) mGy, DLP = ( 382.59 ) mGycm COMPARISON: No relevant prior comparison study available FINDINGS: LOWER CHEST: Emphysematous and bullous changes in right lower lung. 4 mm right lower lobe nodule for which no further follow-up exam is needed. No cardiomegaly or pericardial effusion. LIVER: Homogeneous. No focal mass. GALLBLADDER AND BILIARY TREE: No calcified gallstones. No gallbladder distension or wall edema. No intra- or extrahepatic biliary ductal dilation. PANCREAS: No focal cystic or solid mass. SPLEEN: Normal size without focal cystic or solid mass. ADRENAL GLANDS: No nodules. KIDNEYS AND URETERS: Horseshoe kidneys. Right extrarenal pelvis. No hydronephrosis. PERITONEUM: No ascites or free air. No other fluid collection. BOWEL: The appendix is not definitely identified. Mildly distended stomach. Normal caliber small bowel loops. Fecal retention concerning for constipation. No focal inflammatory change. LYMPH NODES: No enlarged mesenteric or retroperitoneal lymph nodes. VESSELS: Atherosclerotic calcifications of the abdominal aorta without evidence of aneurysm. URINARY BLADDER: Distended urinary bladder. Small calcification on the left side of the bladder base could represent bladder calculi stone in the left ureterovesical junction is unlikely. REPRODUCTIVE ORGANS: Slightly prominent prostate. ABDOMINAL WALL: No discrete abdominal or pelvic wall hernia. BONES: Fusion of L4, L5 and S1 with bilateral pedicle screws creating significant artifacts. Degenerative changes. CT/Abdomen/Pel W ORAL Cont Only IMPRESSION: 1. Fecal retention concerning for constipation. 2. No focal acute inflammatory process. 3. Possible small bladder calculus. 4. Slightly prominent prostate. Electronically Signed: Aristeo Johnston MD at 11:46 EDT ,
[2023-09-24] MEDS: HEPARIN/D5w 25,000 UNITS 25,000 UNITS/250 ML IV.SOLN. 10 UNITS CONT INF (15:30)
[2023-09-24 16:26] LABS: Partial Thromboplast Time 35.6 Seconds (24.1-36.2)
[2023-09-24] MEDS: Jantoven 2 MG Tablet PO (16:45)
[2023-09-24 21:23] LABS: Partial Thromboplast Time 170.8 Seconds (24.1-36.2)
[2023-09-24] MEDS: 0.9% Saline Lock 10 ML Syringe IV (21:49)
[2023-09-24] MEDS: Folic Acid 1 MG Tablet PO (21:51)
[2023-09-24] MEDS: Atorvastatin Calcium 80 MG Tablet PO (21:52)
[2023-09-24] MEDS: Senna/Docusate Sodium 1 Tablet 2 TABLET PO (21:56)
[2023-09-24] MEDS: Polyethylene Glycol 3350 17 GM PACKET PO (21:57)
[2023-09-25] VITALS (7 sets, daily range): BP systolic 113–123; BP diastolic 53–58; PULSE 60–62; RESP 16–19; TEMP 36.1–37.1; O2SAT 98–100; BMI 19.1
[2023-09-25 06:58] LABS: Partial Thromboplast Time 107.7 Seconds (24.1-36.2)
--- NOTE | 2023-09-25 08:03 | PN.HOSP_ITS ---
Reason for Visit Reason for Visit: Diagnoses Gastrointestinal hemorrhage, unspecified (09/22/23) Objective Data Objective Data Vital Signs: Vital Signs Temp Pulse Resp BP Pulse Ox O2 Del Method O2 Flow Rate 97.0 F L 60 18 117/58 L 100 Nasal Cannula 2.5 09/25/23 03:37 09/25/23 03:37 09/25/23 03:37 09/25/23 03:37 09/25/23 03:37 09/25/23 03:41 09/25/23 03:41 Oxygen Flow Rate (L/min) 2.5 Oxygen Delivery Method Nasal Cannula Weight: 133 lb 2.547 oz Body Mass Index (BMI) 19.1 Intake & Output: Intake and Output for Last 24 Hours 09/23/23 09/24/23 09/26/23 23:59 23:59 00:59 Intake Total 1379.33 / 1379.33 961.75 / 961.75 46.2 / 46.2 Output Total 650 / 650 1050 / 1050 Balance 729.33 / 729.33 -88.25 / -88.25 46.2 / 46.2 Medical Nutrition Assessment Dietitian: Malnutrition Criteria Met Start: 09/23/23 13:5 6 Freq: Status: Active Protocol: Document 09/23/23 14:40 RMA (Rec: 09/23/23 14:40 RMA [id number]) Nutrition Malnutrition Evidence of Malnutrition Exists Yes Malnutrition (moderate): Chronic Evidenced By Suboptimal Energy Intake ( Moderate),Weight Loss ( Moderate),Physical Changes ( Moderate) Intake Problem Inadequate Oral Intake Etiology related to GI dysfunction Signs/Symptoms as evidenced by NPO Status Active Problem Clinical Problem Chronic Disease or Condition Related Malnutrition Etiology 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 Add 120mL ensure plus HP 4 times per day w/ medpass as diet advanced beyond clear liquids. Additional ONS as needed once PO adequacy established with meals. Lab / Micro Data 09/24/23 07:42 09/24/23 07:42 Labs: Laboratory Results - last 24 hr 09/24/23 07:42: WBC 5.5, RBC 2.59 L, Hgb 8.2 L, Hct 27.3 L, MCV 105.4 H, MCH 31.7, MCHC 30.0 L, RDW Std Deviation 82.9 H, RDW Coeff of Kalyan 21.9 H, Plt Count 117 L, MPV 10.3, Immature Gran % (Auto) 0.700, Neut % (Auto) 80.9 H, Lymph % (Auto) 8.5 L, [place] % (Auto) 8.3, Eos % (Auto) 0.9, Baso % (Auto) 0.7, Absolute Neuts (auto) 4.5, Absolute Lymphs (auto) 0.47 L, Nucleated RBC % 0, Differential Comment SCANNED, Anisocytosis 2+, Microcytosis 1+, Macrocytosis 1+, PT 19.2 H, INR 1.6, Sodium 145, Potassium 3.9, Chloride 115 H, Carbon Dioxide 25.0, Anion Gap 5, BUN 45 H, Creatinine 2.09 H, Estim Creat Clear Calc 22.33, Est GFR (MDRD) Af Amer 39 L, Est GFR (MDRD) Non-Af 32 L, BUN/Creatinine Ratio 21.5 H, Glucose 100, Calcium 8.1 L, Total Bilirubin 0.50, AST 179 H, ALT 150 H, Alkaline Phosphatase 111, Total Protein 5.2 L, Albumin 2.6 L, Globulin 2.6, Albumin/Globulin Ratio 1.0 09/24/23 15:42: APTT 35.6 09/24/23 20:55: APTT 170.8 H* 09/25/23 05:57: APTT 107.7 H* Micro: Microbiology 09/22/23 20:15 Stool Stool Occult Blood (COREEN) - Final Occult Blood Positive Physical Exam Narrative Seen and examined. Patient has abdominal pain but he states better than yesterday. He had 1 bowel movement yesterday after Dulcolax 10 mg oral, suppository, MiraLAX and senna S. Patient was also given soapsuds enema. No fever. Has mechanical aortic valve. Right-sided AICD. Multiple comorbidities. No ac [place] chest pain or shortness of breath. Patient denies acute hematemesis melena or hematochezia but patient history not clear as sometimes. Dark stool. No further GI bleed. Physical exam General: Alert, Oriented x3, Cooperative HEENT: Atraumatic, PERRLA, EOMI, Normocephalic Oral: No Gingival or Mucosal Lesions/ Ulcerations Neck: Supple, No JVD, Negative Carotid Bruits Chest wall/Lungs: Air entry diminished in bilateral lung bases. No crepitation/rhonchi Cardiovascular: Regular rate, Regular Rhythm, Normal S1, Normal S2, mechanical aortic valve click. Systolic murmur. Status post AICD Abdomen: Bowel Sounds Present, Soft, generalized tenderness present all over abdomen with mild voluntary guarding. : No dysuria. No renal angle tenderness. No suprapubic tenderness. Extremities: No edema, Capillary Refill Less than 3 Seconds Skin: No rashes, No breakdown Musculoskeletal: No Tenderness to Palpation of Joints or Extremities. ROM intact Neurological: Cranial nerves II-XII grossly intact, DTR 2+/4. No acute focal neurological deficit. Psych/Mental Status: Flat affect. Assessment & Plan Assessment/Plan (1) GI bleed: PLAN: Plan The patient is an 83 y/o M came to ED for shortness of breath At rest, worse with exertion/Dyspnea on exertion and generalized weakness getting worse over the past 4 days. Patient could not walk after few steps . No nausea or vomiting. Denies hematemesis or coffee-ground emesis, melena or hematochezia. History of GI bleed in the past with anemia. #1. Acute GI Bleed w/ resultant Acute Blood Loss Anemia on Chronic anemia/Fe deficiency anemia with associated mild hypotension with ongoing outpatient evaluation of note for possible liver fibrosis:Patient is admitted in PCU. GI is consulted. EGD on 06/16/2023 Impressions : - Abnormal esophageal motility, suspicious for esophageal spasm. Injected with botulinum toxin. - Moderate Schatzki ring. Dilated. - Small hiatal hernia. - Normal second portion of the duodenum. - Biopsies were taken with a cold forceps for evaluation of eosinophilic esophagitis. 09/22: Patient has history of peptic ulcer disease. EGD is planned. Alcohol blood positive. Admitted with H&H 7.02/08%. Last H&H 8.1/27.7. Platelet count 116,000. 09/23: EGD was done yesterday on 09/22. Complain of abdominal pain 7/10 intensity. No BM for 2 days. Has rectal urge/sensation and feels something stuck there. Dulcolax 10 mg oral and suppository given but no BM. Tried soapsuds enema if does not move, will order CT abdomen/pelvis with oral contrast. Continue IV PPI. Hemoglobin 8.2/27%. Platelet count 117,000. Impression: - Normal esophagus. - A medium amount of food (residue) in the stomach. - Oozing gastric ulcers with pigmented material. Injected. Treated with a heater probe. - No gross lesions in the duodenal bulb. - Retained food in the duodenum. - No specimens collected. 09/24: Severe constipation: Patient had multiple oral, rectal suppository including MiraLAX, senna S, Dulcolax 10 mg oral and suppository and soapsuds enema. Patient had [address] abdomen and pelvis individually reviewed and discussed with the surgeon. Left-sided fecal matter with the stretching of splenic flexure and left side of the colon. Patient has tenderness on the left side coincides with the CT findings. Soapsuds enema today. Lactulose added and discontinue MiraLAX as both are osmotic laxatives 2. Paroxysmal A-fib on warfarin, mechanical aortic valve: Patient was given vitamin K x 1 dose. Brain hemostasis controlled will need to put on IV heparin drip. 09/22: INR 2.5. 09/23 INR 1.6. Repeat INR today. #4. 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 Chronic Kidney Disease stage IV: Creatinine clearance is about 20 mill per minute. Baseline is that is around 2.25. Currently 2.01. #6. Severe dysphagia: Most recent GI evaluation during admission 06/2023 with upper endoscopy 06/16/2023 noted most recently prior with abnormal esophageal motility suspicious for esophageal spasm with injection of botulinum toxin, moderate Schatzki ring that was dilated, small hiatal hernia, normal second portion duodenum, biopsies obtained for evaluation of eosinophilic esophagitis. #7. Chronic pain syndrome: Continue home buprenorphine patch cautiously given low blood pressure secondary to acute GI bleed presentation as noted however do not want patient to withdrawal. #8. PAF: We will continue patient home amiodarone regimen, given acute presentation holding coumadin, given IV Vitamin K in the ED, will repeat INR following and in AM with further interventions pending level, once appropriate transition to heparin drip given mechanical valve. Will continue metoprolol but placed very strong hold parameters given low BP upon presentation. 09/23: INR is 1.6. Will start on IV heparin drip. #9. 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 #10. Valvular Heart Disease s/p mechanical aortic valve replacement, given acute presentation holding coumadin, given IV Vitamin K in the ED, will repeat INR following and in AM with further interventions pending level, once appropriate transition to heparin drip given mechanical valve. #11. HFrEF: ECHO 02/2023 showed an EF of 20 to 30%, s/p AICD placement, will very judiciously hydrate given history, will place hold parameters on patient's metoprolol and Lasix but give if able, as noted holding Coumadin with IV vitamin K administered in the ED with repeat INR trending with transition to heparin drip once appropriate, continue statin therapy, not on NABIL or/ARB be likely se condary to underlying renal disease, with PRBC may need if BP allows Lasix to tolerate. #12. Hx Intermittent Complete HB/sick sinus syndrome: s/p history of pacemaker infection s/p pacemaker extraction and replacement on contralateral side. #13. Hypertension: Patient with low blood pressure upon presentation associated with #1, will continue patient home metoprolol and Lasix but will place very aggressive strong hold parameters on these therefore likely will not get these medications for at least the next 24 hours until PRBC administered and BP is improved. #14. Hyperlipidemia: We will continue patient on statin therapy. #15. Tobacco Abuse: Encouraged cessation, inpatient consultation per RT, NR if desired. #16. CODE status: Patient YONATAN is his daughter Emily and living will is he believes possibly in place. Discussed CODE status at length including difference between FULL code, DNR-CCA and DNR-CC status. Following discussions about the differences in these status, requested DNR-CCA, no intubation status. A Charges/Coding Addendum Addendum: Total time of the visit including total time spent in counseling or coordination of care, (more than 50% of the total time, spent in obtaining medical information from nurses and other ancillary care providers,explaining to the patient about labs, imaging, diagnosis and management of active complex medical conditions), multiple acute conditions including cardiac condition, GI bleed, severe anemia, severe constipation, CKD, discussion with surgeon review of labs and imaging is 40 minutes. Visit Charges Inpatient E&M: 82623 [facility] Hosp L3
[2023-09-25] MEDS: Ipratropium/Albuterol Sulfate 3 ML AMPUL.NEB INHALATION (08:20)
[2023-09-25] MEDS: Metoprolol(XL)Succ 50 MG Tablet PO (08:44)
[2023-09-25 08:45] LABS: Absolute Lymphocyte Count 0.43 X10^3/uL (0.83-4.51); Absolute Neutrophil Count 3.2 X10^3/uL (2.0-7.7); Basophil# 0.02 X10^3/uL; Basophil% 0.5 % (0-1); Eosinophil# 0.03 X10^3/uL; Eosinophils% 0.7 % (0-5); Hematocrit 25.8 % (40-54); Hemoglobin 7.8 g/dL (13.0-16.5); Lymphocyte # 0.43 X10^3/ul (0.83-4.51); Lymphocyte % 10.5 % (19-41); Mean Corp Hgb Conc 30.2 g/dL (32-36); Mean Corpuscular Hgb 31.7 pg (27.0-32.0); Mean Corpuscular Volume 104.9 fL (80-94); Mean Platelet Vol. 11.4 fl (6.2-12.0); Monocyte# 0.37 X10^3/uL; NRBC Flagged by Analyzer 0 % (0-5); Neutrophil # 3.23 X10^3/uL (2.7-7.7); Neutrophil % 78.6 % (47-70); POSITIVE DIFFERENTIAL YES; POSITIVE MORPHOLOGY YES; Platelet Count 118 K/mm3 (150-450); RBC Distribution Width CV 21.5 % (11.6-14.6); RBC Distribution Width SD 82.2 fl (35.1-43.9); Red Blood Count 2.46 M/mm3 (4.6-6.2); White Blood Count 4.1 K/mm3 (4.4-11.0)
[2023-09-25] MEDS: Potassium Chloride Oral Tablet 10 MEQ PO (08:45)
[2023-09-25] MEDS: Furosemide 20 MG Tablet PO (08:45)
[2023-09-25] MEDS: Ferrous Sulfate 325 MG Tablet PO (08:45)
[2023-09-25] MEDS: Lactulose 20 GM/30 ML UDC PO ×2 (08:46→13:17)
[2023-09-25] MEDS: Amiodarone 200 MG Tablet PO (08:47)
[2023-09-25] MEDS: Ceftriaxone 1 GM/50 ML BAG IV (08:47)
[2023-09-25] MEDS: Senna/Docusate Sodium 1 Tablet 2 TABLET PO (08:47)
[2023-09-25] MEDS: Pantoprazole Sodium 40 MG in 0.9% Normal Saline (100mL MB+) 100 ML 330 MG IV ×2 (08:47→21:25)
[2023-09-25 08:49] LABS: Differential Indicated SCAN CRITERIA MET
[2023-09-25] MEDS: Menthol/Lanolin/Calamine/Znox 113 GM Tube 1 APPLIC TOPICAL ×3 (08:51→21:21)
[2023-09-25 08:59] LABS: International Normalized Ratio 2.5; Prothrombin Time (Protime)PT. 26.8 SECONDS (11.7-14.9)
--- NOTE | 2023-09-25 09:04 | CON.PCM.SX_ITS ---
Assessment & Plan Assessment/Plan (1) Constipation: (2) Anticoagulant long-term use: PLAN: Plan Currently patient states that abdominal pain is improved after having bowel movement. Will continue with laxatives patient was ordered lactulose as well as additional enemas. Will continue to monitor. No current plans for acute surgical intervention. Taylor Jesus M.D. Pager: [phone] [facility] [address] [place] [address], Outpatient [place], [address] [place] [address] Office: [phone] HPI Consult Data Date of Consult: 09/25/23 HPI Narrative Reason for Consultation: Abdominal pain HPI Narrative: REBECCA ARRIOLA, is a 83 M who admitted due to GI bleed s/p EGD was found to have some oozing gastric ulcers treated with heater probe. Patient has a mechanical aortic valve and is on warfarin/currently heparin drip and also has a significant cardiac history with status post AICD. Patient states he has been tolerating p.o. while in the hospital. But was noted to have some abdominal pain CT abdomen pelvis was done with p.o. contrast official reads not done however patient did have constipation of the right colon transverse and splenic flexure/left colon on my read. Patient was given some laxatives as well as suppositories patient had a small bowel movement yesterday and had a larger bow el movement this morning. Patient states abdominal pain is improved currently. Patient does have additional bowel regimen enemas/laxatives ordered. [facility] Medical History Ambulates with cane Anemia Anemia due to chronic blood loss Anticoagulant long-term use Arthritis Asthma Atherosclerotic heart disease of [place] coronary artery without angina pectoris Atrial fibrillation Back pain due to injury CHF (congestive heart failure) Chronic airway obstruction Chronic anticoagulation Chronic cough Chronic pain Chronic pain syndrome CKD (chronic kidney disease) COPD (chronic obstructive pulmonary disease) COPD (chronic obstructive pulmonary disease) Coronary artery disease Erosion of pacemaker pocket due to and not concurrent with implantation of cardiac pacemaker Essential hypertension Former smoker GERD (gastroesophageal reflux disease) Heart attack HFrEF (heart failure with reduced ejection fraction) High cholesterol History of edema History of GI bleed History of heart attack History of pain when walking History of stress test Hx of fracture of ankle Hx of fracture of ankle Hypertension ICD (implantable cardioverter-defibrillator) in place Injury of back Injury of head and neck Intermittent complete heart block Ischemic cardiomyopathy Kidney disease [facility] current use of anticoagulant 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 On home oxygen therapy Osteoporosis Paroxysmal atrial fibrillation Pericardial effusion after operative procedure Persistent atrial fibrillation Pure hypercholesterolemia Restless legs Secondary pulmonary arterial hypertension Sick sinus syndrome Spinal stenosis of lumbar region Stage 3a chronic kidney disease (CKD) Stroke Symptomatic bradycardia TIA (transient ischemic attack) Tobacco use disorder Wears dentures Wears glasses Home Medications albuterol sulfate 90 mcg/actuation breath activated powder inhaler 2 puff inhalation Q4H PRN Shortness Of Breath 09/25/15 [History Last Taken 08/23/22] cholecalciferol (vitamin D3) 25 mcg (1,000 unit) tablet 1,000 unit PO DAILY SUPPLEMENT 09/25/15 [History Last Taken 08/24/22] folic acid 1 mg tablet 1 mg PO QHS SUPPLEMENT 06/24/16 [History Last Taken 08/23/22] pantoprazole 40 mg tablet,delayed release 40 mg PO BID ACID REFLUX 01/02/18 [History Last Taken 08/24/22] tiotropium 2.5 mcg-olodaterol 2.5 mcg/actuation mist for inhalation (Stiolto Respimat) 1 puff inhalation BID ASTHMA 06/18/21 [History Last Taken 08/24/22] ipratropium 0.5 mg-albuterol 3 mg (2.5 mg base)/3 mL nebulization soln 3 ml inhalation 4X/DAY SHORTNESS OF BREATH 11/25/21 [History Last Taken 04/06/22] nitroglycerin 0.4 mg sublingual tablet 0.4 mg sublingual Q5M PRN Chest Pain #25 tabs 09/17/22 [Rx Last Taken Unknown] clopidogrel 75 mg tablet 75 mg PO DAILY antiplatelet 03/29/23 [History Last Taken Unknown] rosuvastatin 40 mg tablet (Crestor) 40 mg PO DAILY cholesterol 03/29/23 [History Last Taken Unknown] furosemide 20 mg tablet 20 mg PO DAILY dose has been decreased #90 tabs 04/25/23 [Rx Last Taken Unknown] potassium chloride 10 mEq tablet,extended release 10 meq PO DAILY #30 tabs 04/25/23 [Rx Last Taken Unknown] amiodarone 200 mg tablet 200 mg PO DAILY afib #90 tabs 04/28/23 [Rx Last Taken Unknown] empagliflozin 10 mg tablet (Jardiance) 10 mg PO DAILY heart health #90 tabs 04/28/23 [Rx Last Taken Unknown] zolpidem 10 mg tablet 10 mg PO QHS sleep 05/03/23 [History Last Taken Unknown] ferrous sulfate 325 mg (65 mg iron) tablet 325 mg PO DAILY IRON SUPPLEMENT 05/24/23 [History Last Taken Unknown] lactulose 10 gram/15 mL (15 mL) oral solution 20 g (30 mL) PO DAILY #1,440 mL 08/01/23 [Rx Last Taken Unknown] enoxaparin 60 mg/0.6 mL subcutaneous syringe 60 mg (0.6 mL) subcut QHS #6 mL 08/08/23 [Rx Last Taken Unknown] warfarin 2 mg tablet 2 mg PO .COMPLEX blood thinner 09/02/23 [History Last Taken Unknown] warfarin 5 mg tablet 5 mg PO .COMPLEX afib 09/02/23 [History Last Taken Unknown] metoprolol succinate 100 mg tablet,extended release 24 hr 100 mg PO Q12H bp 09/22/23 [History Last Taken Unknown] Allergy/AdvReac Type Severity Reaction Status Date / Time No Known Allergies Allergy Verified 09/22/23 17:41 Family History Son , age 44 from [place] CAD (coronary artery disease) Myocardial infarction Sudden cardiac Brother CAD (coronary artery disease) Pt states all nine of his siblings have heart problems Sister CAD (coronary artery disease) Patient states all nine of his siblings have heart problems Other History of mechanical aortic valve replacement Surgical History Cardiac pacemaker in situ H/O cardiac catheterization H/O prosthetic aortic valve replacement History of coronary artery stent placement (~06/28/11) History of coronary artery stent placement History of esophagogastroduodenoscopy (EGD) (~10/2021) History of left heart catheterization History of lumbar fusion History of mechanical aortic valve replacement (~03/27/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 Hx of CABG Presence of biventricular implantable cardioverter-defibrillator (ICD) S/P CABG x 1 (~03/27/93) Status post cardiac surgery Social History (Updated 09/22/23 @ 22:[address] Chichi Tejada MD) household members: family and none housing: house Smoking Status: Current every day smoker tobacco type: cigarettes Smoking packs per day: 0.25 Smoking cigarettes per day: 5.0 alcohol intake: never substance use type: does not use caffeine: No ROS Constitutional Constitutional: Denies anorexia Eyes Eyes: Denies loss of central vision ENT HEENT: Denies dysphagia Cardiovascular Cardiovascular: Denies chest pain Respiratory/Chest Respiratory/Chest: Denies productive cough Gastrointestinal Gastrointestinal: Reports abdominal pain and constipation; Denies diarrhea, nausea or vomiting Genitourinary Genitourinary: Denies dysuria Musculoskeletal Musculoskeletal: Denies joint swelling Integumentary Integumentary: Denies jaundice Neurologic Neurologic: Denies focal weakness Psychiatric Psychiatric: Denies anxiety or depression Hematologic/Lymphatic Hematologic/Lymphatic: Reports easy bleeding and easy bruising Physical Exam Const alert, oriented x3 and no apparent distress HEENT normocephalic and head/scalp atraumatic Neck supple Resp normal respiratory effort Cardio regular rate GI soft to palpation; Negative for non-distended Palpation: tender other (Mild diffuse, no peritoneal signs); Negative for guarding Extremity no clubbing, cyanosis or edema Skin no rashes or lesions noted Neuro CN's II-XII intact bilaterally Psych mental status grossly normal Medical Records Data Medical Nutrition Assessment Dietitian: Malnutrition Criteria Met Start: 09/23/23 13:56 Freq: Status: Active Protocol: Document 09/23/23 14:40 RMA (Rec: 09/23/23 14:40 RMA [id number]) Nutrition Malnutrition Evidence of Malnutrition Exists Yes Malnutrition (moderate): Chronic Evidenced By Suboptimal Energy Intake ( Moderate),Weight Loss ( Moderate),Physical Changes ( Moderate) Intake Problem Inadequate Oral Intake Etiology related to GI dysfunction Signs/Symptoms as evidenced by NPO Status Active Problem Clinical Problem Chronic Disease or Condition Related Malnutrition Etiology 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 Add 120mL ensure plus HP 4 times per day w/ medpass as diet advanced beyond clear liquids. Additional ONS as needed once PO adequacy established with meals. Lab / Micro Data 09/25/23 05:57 09/24/23 07:42 Labs: Laboratory Results - last 24 hr 09/24/23 07:42: Differential Comment SCANNED, Anisocytosis 2+, Microcytosis 1+, Macrocytosis 1+, Sodium 145, Potassium 3.9, Chloride 115 H, Carbon Dioxide 25.0, Anion Gap 5, BUN 45 H, Creatinine 2.09 H, Estim Creat Clear Calc 22.33, Est GFR (MDRD) Af Amer 39 L, Est GFR (MDRD) Non-Af 32 L, BUN/Creatinine Ratio 21.5 H, Glucose 100, Calcium 8.1 L, Total Bilirubin 0.50, AST 179 H, ALT 150 H, Alkaline Phosphatase 111, Total Protein 5.2 L, Albumin 2.6 L, Globulin 2.6, Albumin/Globulin Ratio 1.0 09/24/23 15:42: APTT 35.6 09/24/23 20:55: APTT 170.8 H* 09/25/23 05:57: WBC 4.1 L, RBC 2.46 L, Hgb 7.8 L, Hct 25.8 L, MCV 104.9 H, MCH 31.7, MCHC 30.2 L, RDW Std Deviation 82.2 H, RDW Coeff of Kalyan 21.5 H, Plt Count 118 L, MPV 11.4, Immature Gran % (Auto) 0.700, Neut % (Auto) 78.6 H, Lymph % (Auto) 10.5 L, [place] % (Auto) 9.0, Eos % (Auto) 0.7, Baso % (Auto) 0.5, Absolute Neuts (auto) 3.2, Absolute Lymphs (auto) 0.43 L, Nucleated RBC % 0, PT 26.8 H, INR 2.5, APTT 107.7 H* Charges/Coding Visit Charges Inpatient E&M: 44113 Init Hosp L3
[2023-09-25 09:14] LABS: Platelet Estimate ADEQUATE (ADEQ)
[2023-09-25 09:15] LABS: Anisocytosis 1+; Macrocytosis 1+
[2023-09-25 09:25] LABS: Anion Gap 3 (5-15); BUN 34 mg/dL (7-18); BUN/Creat Ratio 16.6 RATIO (10-20); Calcium,Total 8.4 mg/dL (8.5-10.1); Chloride 114 mmol/L (98-107); Creatinine, Serum 2.05 mg/dL (0.70-1.30); EST Glomerular Filtration Rate 33 mL/min (>60); Est Glom Filt Rate - Afr Amer 40 mL/min (>60); Estimated Creatinine Clearance 22.51 ml/min; Glucose 104 mg/dL (74-106); Magnesium 2.8 mg/dL (1.6-2.6); Phosphorus 2.8 mg/dL (2.5-4.9); Potassium 3.9 mmol/L (3.5-5.1); Sodium Level 145 mmol/L (136-145)
[2023-09-25] MEDS: Buprenorphine 15 MCG PATCH.TDWK 1 PATCH TD (11:18)
[2023-09-25 15:55] LABS: Partial Thromboplast Time 48.3 Seconds (24.1-36.2)
[2023-09-25] MEDS: 0.9% Saline Lock 10 ML Syringe IV (21:17)
[2023-09-25] MEDS: MELATONIN 3 MG TABLET PO (21:21)
[2023-09-25] MEDS: Atorvastatin Calcium 80 MG Tablet PO (21:22)
[2023-09-25] MEDS: Folic Acid 1 MG Tablet PO (21:23)
[2023-09-25 21:54] LABS: Partial Thromboplast Time 63.2 Seconds (24.1-36.2)
[2023-09-26 03:42] VITALS: BP 91/55; PULSE 60; RESP 18; TEMP 36.6; O2SAT 98
[2023-09-26 04:02] LABS: Absolute Neutrophil Count 3.7 X10^3/uL (2.0-7.7); Basophil# 0.03 X10^3/uL; Basophil% 0.7 % (0-1); Eosinophil# 0.02 X10^3/uL; Eosinophils% 0.4 % (0-5); Hematocrit 26.8 % (40-54); Hemoglobin 7.9 g/dL (13.0-16.5); Lymphocyte % 8.9 % (19-41); Mean Corp Hgb Conc 29.5 g/dL (32-36); Mean Corpuscular Hgb 31.3 pg (27.0-32.0); Mean Corpuscular Volume 106.3 fL (80-94); Mean Platelet Vol. 10.5 fl (6.2-12.0); Monocyte# 0.36 X10^3/uL; NRBC Flagged by Analyzer 0 % (0-5); Neutrophil # 3.65 X10^3/uL (2.7-7.7); Neutrophil % 81.6 % (47-70); POSITIVE DIFFERENTIAL YES; POSITIVE MORPHOLOGY YES; Platelet Count 108 K/mm3 (150-450); RBC Distribution Width CV 21.2 % (11.6-14.6); Red Blood Count 2.52 M/mm3 (4.6-6.2); White Blood Count 4.5 K/mm3 (4.4-11.0)
[2023-09-26 04:12] LABS: Partial Thromboplast Time 76.4 Seconds (24.1-36.2)
[2023-09-26 04:17] LABS: Anion Gap 5 (5-15); BUN 29 mg/dL (7-18); Calcium,Total 8.2 mg/dL (8.5-10.1); Chloride 115 mmol/L (98-107); Creatinine, Serum 1.81 mg/dL (0.70-1.30); EST Glomerular Filtration Rate 38 mL/min (>60); Est Glom Filt Rate - Afr Amer 46 mL/min (>60); Estimated Creatinine Clearance 25.49 ml/min; Glucose 117 mg/dL (74-106); Potassium 3.8 mmol/L (3.5-5.1); Sodium Level 145 mmol/L (136-145)
[2023-09-26 04:21] LABS: International Normalized Ratio 3.2; Prothrombin Time (Protime)PT. 32.8 SECONDS (11.7-14.9)
[2023-09-26 04:26] LABS: Differential Indicated SCAN CRITERIA MET
[2023-09-26 04:40] LABS: Differential Comment SCANNED
[2023-09-26 04:41] LABS: Anisocytosis 1+; Hypochromasia 2+
[2023-09-26] MEDS: Lactulose 20 GM/30 ML UDC PO (05:20)
[2023-09-26 05:52] VITALS: BMI 18.5
[2023-09-26 07:56] VITALS: PULSE 64; RESP 16; O2SAT 96
[2023-09-26] MEDS: Ipratropium/Albuterol Sulfate 3 ML AMPUL.NEB INHALATION (07:56)
--- NOTE | 2023-09-26 08:02 | PCM.PN.SRG ---
Subjective Subjective Patient is an 83 y/o M I am following in conjunction with Dr. Jesus. Patient denies any abdominal pain this morning. He has had multiple loose bowel movements over night. He is passing flatus well. He declined the laxatives overnight. Objective Data Objective Data Vital Signs: Vital Signs Temp Pulse Resp BP Pulse Ox O2 Del Method O2 Flow Rate 97.8 F 60 18 91/55 L 98 Nasal Cannula 2.5 09/26/23 03:42 09/26/23 03:42 09/26/23 03:42 09/26/23 03:42 09/26/23 03:42 09/26/23 03:45 09/26/23 03:45 Oxygen Flow Rate (L/min) 2.5 Oxygen Delivery Method Nasal Cannula Weight: 128 lb 15.527 oz Body Mass Index (BMI) 18.5 Intake & Output: Intake and Output for Last 24 Hours 09/24/23 09/25/23 09/26/23 22:59 23:59 23:59 Intake Total 250 / 250 Output Total Balance 250 / 250 Medical Nutrition Assessment Dietitian: Malnutrition Criteria Met Start: 09/23/23 13:56 Freq: Status: Active Protocol: Document 09/23/23 14:40 RMA (Rec: 09/23/23 14:40 RMA [id number]) Nutrition Malnutrition Evidence of Malnutrition Exists Yes Malnutrition (moderate): Chronic Evidenced By Suboptimal Energy Intake ( Moderate),Weight Loss ( Moderate),Physical Changes ( Moderate) Intake Problem Inadequate Oral Intake Etiology related to GI dysfunction Signs/Symptoms as evidenced by NPO Status Active Problem Clinical Problem Chronic Disease or Condition Related Malnutrition Etiology 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 Add 120mL ensure plus HP 4 times per day w/ medpass as diet advanced beyond clear liquids. Additional ONS as needed once PO adequacy established with meals. Lab / Micro Data 09/26/23 03:50 09/26/23 03:50 Labs: Laboratory Results - last 24 hr 09/25/23 05:57: WBC 4.1 L, RBC 2.46 L, Hgb 7.8 L, Hct 25.8 L, MCV 104.9 H, MCH 31.7, MCHC 30.2 L, RDW Std Deviation 82.2 H, RDW Coeff of Kalyan 21.5 H, Plt Count 118 L, MPV 11.4, Immature Gran % (Auto) 0.700, Neut % (Auto) 78.6 H, Lymph % (Auto) 10.5 L, [place] % (Auto) 9.0, Eos % (Auto) 0.7, Baso % (Auto) 0.5, Absolute Neuts (auto) 3.2, Absolute Lymphs (auto) 0.43 L, Nucleated RBC % 0, Platelet Estimate ADEQUATE, Anisocytosis 1+, Macrocytosis 1+, PT 26.8 H, INR 2.5 09/25/23 09:01: Sodium 145, Potassium 3.9, Chloride 114 H, Carbon Dioxide 28.0, Anion Gap 3 L, BUN 34 H, Creatinine 2.05 H, Estim Creat Clear Calc 22.51, Est GFR (MDRD) Af Amer 40 L, Est GFR (MDRD) Non-Af 33 L, BUN/Creatinine Ratio 16.6, Glucose 104, Calcium 8.4 L, Phosphorus 2.8, Magnesium 2.8 H 09/25/23 15:00: APTT 48.3 H 09/25/23 21:36: APTT 63.2 H 09/26/23 03:50: WBC 4.5, RBC 2.52 L, Hgb 7.9 L, Hct 26.8 L, MCV 106.3 H, MCH 31.3, MCHC 29.5 L, RDW Std Deviation 84.0 H, RDW Coeff of Kalyan 21.2 H, Plt Count 108 L, MPV 10.5, Immature Gran % (Auto) 0.400, Neut % (Auto) 81.6 H, Lymph % (Auto) 8.9 L, [place] % (Auto) 8.0, Eos % (Auto) 0.4, Baso % (Auto) 0.7, Absolute Neuts (auto) 3.7, Absolute Lymphs (auto) 0.40 L, Nucleated RBC % 0, Differential Comment SCANNED, Hypochromasia 2+, Anisocytosis 1+, PT 32.8 H, INR 3.2, APTT 76.4 H, Sodium 145, Potassium 3.8, Chloride 115 H, Carbon Dioxide 25.0, Anion Gap 5, BUN 29 H, Creatinine 1.81 H, Estim Creat Clear Calc 25.49, Est GFR (MDRD) Af Amer 46 L, Est GFR (MDRD) Non-Af 38 L, BUN/Creatinine Ratio 16.0, Glucose 117 H, Calcium 8.2 L Micro: Microbiology 09/22/23 20:15 Stool Stool Occult Blood (COREEN) - Final Occult Blood Positive Radiography Diagnostic Testing: Radiology Impression Abdomen CT 09/24/23 13:47 IMPRESSION: 1. Fecal retention concerning for constipation. 2. No focal acute inflammatory process. 3. Possible small bladder calculus. 4. Slightly prominent prostate. Electronically Signed: Aristeo Johnston MD at 11:46 EDT , Physical Exam GI GI Narrative: Abdomen- soft, nontender. No pain to palpation. Positive bowel sounds. Assessment & Plan Assessment/Plan (1) Constipation: QUALIFIERS: Constipation type: unspecified constipation type Qualified Code(s): K59.00 - Constipation, unspecified PLAN: I am following this patient in conjunction with Dr. Jesus. Patient's constipation has seemed to resolve at this time We will continue to monitor as needed Charges/Coding Visit Charges Inpatient E&M: 60649 [facility] Hosp L1
[2023-09-26 08:18] VITALS: BP 109/56; PULSE 60; RESP 16; TEMP 37.1; O2SAT 95
[2023-09-26] MEDS: Senna/Docusate Sodium 1 Tablet 2 TABLET PO (08:20)
[2023-09-26] MEDS: Pantoprazole Sodium 40 MG in 0.9% Normal Saline (100mL MB+) 100 ML 330 MG IV (08:20)
[2023-09-26] MEDS: Ceftriaxone 1 GM/50 ML BAG IV (08:21)
[2023-09-26 08:22] VITALS: BP 109/56; PULSE 60
[2023-09-26] MEDS: Ferrous Sulfate 325 MG Tablet PO (08:22)
[2023-09-26] MEDS: Potassium Chloride Oral Tablet 10 MEQ PO (08:22)
[2023-09-26] MEDS: Furosemide 20 MG Tablet PO (08:22)
[2023-09-26] MEDS: Metoprolol(XL)Succ 50 MG Tablet PO (08:22)
[2023-09-26] MEDS: Menthol/Lanolin/Calamine/Znox 113 GM Tube 1 APPLIC TOPICAL (08:23)
[2023-09-26] MEDS: Amiodarone 200 MG Tablet PO (08:23)
--- NOTE | 2023-09-26 08:43 | PCM.DC ---
Discharge Instructions Diet Discharge Diet: Low fat / Low cholesterol and 2000 mg Sodium Diet Follow Up Care Test Results: Test results from this visit will be discussed in further detail at your follow-up appointment, if applicable. Discharge Plan Admission Admit Date/Time: 09/22/23 21:18 Attending Provider: Syd Rosario Primary Care Provider: Guillermo Pritchard Consulting Providers: Chichi Tejada; Taylor Jesus Discharge Orders/Prescriptions Prescriptions: New sennosides-docusate sodium [Stool Softener-Stimulant Laxat] 8.6-50 mg Tablet 2 tab PO BID Qty: 0 0RF Rx Instructions: 2 tablet twice daily. lactulose 20 gram/30 mL Solution 20 g PO TID 30 Days Qty: 2700 2RF Rx Instructions: For constipation. Hold if more than 2 complete BM per day metoprolol succinate 50 mg Tablet Extended Release 24 Hr 50 mg PO DAILY 30 Days Qty: 30 2RF Rx Instructions: Hold for heart less than 50 or systolic blood pressure less than 100 mmHg. Continued ipratropium-albuterol 0.5 mg-3 mg(2.5 mg base)/3 mL solution for nebulization 3 ml INHALATION 4X/DAY nitroglycerin 0.4 mg tablet, sublingual 0.4 mg SUBLINGUAL Q5M PRN (Reason: Chest Pain) Qty: 25 3RF cholecalciferol (vitamin D3) 1,000 UNIT tablet 1,000 unit PO DAILY albuterol sulfate 90 MCG aerosol powdr breath activated 2 puff INHALATION Q4H PRN (Reason: Shortness Of Breath) Patient Comments: folic acid 1 MG tablet 1 mg PO QHS Stiolto Respimat 2.5-2.5 mcg/actuation Mist 1 puff INHALATION BID rosuvastatin [Crestor] 40 mg tablet 40 mg PO DAILY pantoprazole 40 mg tablet,delayed release (DR/EC) 40 mg PO BID 30 Days Qty: 60 2RF potassium chloride 10 mEq tablet extended release 10 meq PO DAILY Qty: 30 11RF furosemide 20 mg tablet 20 mg PO DAILY Qty: 90 3RF amiodarone 200 mg tablet 200 mg PO DAILY Qty: 90 3RF Hold Instructions: not taking lactulose 10 gram/15 mL (15 mL) solution 20 g PO DAILY Qty: 1440 4RF Changed ferrous sulfate 325 mg (65 mg iron) tablet 325 mg PO QODAY 30 Days Qty: 0 0RF Patient Comments: iron supplement warfarin 2 mg tablet 2 mg PO .COMPLEX 3 Days Qty: 0 0RF Protocol: Dose Management Condition: Tuesday Dose/Route: 4 mg Instruction: 2 x 2 mg tablets Condition: Tuesday Dose/Route: 4 mg Instruction: 2 x 2 mg tablets Condition: Tuesday Dose/Route: 0 mg Instruction: 0 tablets Condition: Tuesday Dose/Route: 4 mg Instruction: 2 x 2 mg tablets Condition: Dose/Route: 4 mg Instruction: 2 x 2 mg tablets Condition: Tuesday Dose/Route: 4 mg Instruction: 2 x 2 mg tablets Condition: Tuesday Dose/Route: 4 mg Instruction: 2 x 2 mg tablets Protocol Text: Adjustment Start Date: Tuesday09/13/23 INR Value: 4.1 INR Date: 09/13/23 Recheck Date: 09/20/23 Rx Instructions: takes 2mg on Mon, Weds, Fri, and Sun as directed. (5 mg orally Tues, Thurs and Sat). Keep INR around 3.0. warfarin 5 mg tablet 5 mg PO .COMPLEX 30 Days Qty: 0 0RF Protocol: Dose Management Condition: Tuesday Dose/Route: 4 mg Instruction: 2 x 2 mg tablets Condition: Tuesday Dose/Route: 4 mg Instruction: 2 x 2 mg tablets Condition: Tuesday Dose/Route: 0 mg Instruction: 0 tablets Condition: Tuesday Dose/Route: 4 mg Instruction: 2 x 2 mg tablets Condition: Dose/Route: 4 mg Instruction: 2 x 2 mg tablets Condition: Tuesday Dose/Route: 4 mg Instruction: 2 x 2 mg tablets Condition: Tuesday Dose/Route: 4 mg Instruction: 2 x 2 mg tablets Protocol Text: Adjustment Start Date: Tuesday09/13/23 INR Value: 4.1 INR Date: 09/13/23 Recheck Date: 09/20/23 Rx Instructions: 5 mg orally Tues, Thurs and Sat (takes 2mg on Mon, Weds, Fri, and Sun as directed) zolpidem 10 mg tablet 5 mg PO QHS 3 Days Qty: 0 0RF Patient Comments: TAKE 1 TABLET BY MOUTH EVERY DAY Held Jardiance 10 mg tablet 10 mg PO DAILY Qty: 90 3RF Hold Instructions: Hold for 3 days. Discontinued clopidogrel 75 mg tablet 75 mg PO DAILY metoprolol succinate 100 mg tablet extended release 24 hr 100 mg PO Q12H Patient Comments: TAKE 1 TABLET BY MOUTH EVERY 12 HOURS enoxaparin 60 mg/0.6 mL syringe 60 mg subcut QHS Qty: 6 0RF Referrals / Follow Up: Marv Kraus MD [Med Staff - Active Staff] - 10/03/23 2:15 pm (Or severe anemia.) Guillermo Pritchard MD [Primary Care Provider] - 10/13/23 9:10 am Fazal Muir DO [Med Staff - Active Staff] - 10/18/23 10:30 am Adilia Vidales NP, [employer] [Non-Staff -Ordering Privileges] - 10/07/23 2:00 pm Disposition Disposition (needs filled in before D/C Order can be placed): Home, Self Care
--- NOTE | 2023-09-26 09:11 | DS.PCM_ITS ---
Providers Date of Admission: 09/22/23 Date of Discharge: 09/26/23 Primary Care Physician: Dr. Guillermo Pritchard MD Consultations 09/22/23 22:42 Consult: Gastroenterology Routine Consulting Provider: [facility] Reason for Consult: ABLA, GI bleed EMERGENT Consult: No Notified: Yes Date Notified: 09/22/23 Time Notified: 21:26 Method of Notification: ED Physician Initiated 09/24/23 13:48 Consult: General Surgery Routine Consulting Provider: Taylor Jesus Reason for Consult: still pain abd 7/10, no BM with dulcolax 10 mg oral and supp EMERGENT Consult: No Notified: Yes Date Notified: 09/24/23 Time Notified: 13:48 Method of Notification: Verbal Reason For Visit: GI BLEED, ABLA, SUPRATHERAPEUTIC INR, Diagnosis Discharge Diagnosis (1) Constipation: Status: Acute Code(s): K59.00 - Constipation, unspecified Qualifiers: Constipation type: unspecified constipation type Qualified Code(s): K59.00 - Constipation, unspecified Plan The patient is an 83 y/o M came to ED for shortness of breath At rest, worse with exertion/Dyspnea on exertion and generalized weakness getting worse over the past 4 days. Patient could not walk after few steps . No nausea or vomiting. Denies hematemesis or coffee-ground emesis, melena or hematochezia. History of GI bleed in the past with anemia. #1. Acute GI Bleed w/ resultant Acute Blood Loss Anemia on Chronic anemia/Fe deficiency anemia with associated mild hypotension with ongoing outpatient evaluation of note for possible liver fibrosis:Patient is admitted in PCU. GI is consulted. EGD on 06/16/2023 Impressions : - Abnormal esophageal motility, suspicious for esophageal spasm. Injected with botulinum toxin. - Moderate Schatzki ring. Dilated. - Small hiatal hernia. - Normal second portion of the duodenum. - Biopsies were taken with a cold forceps for evaluation of eosinophilic esophagitis. 09/22: Patient has history of peptic ulcer disease. EGD is planned. Alcohol blood positive. Admitted with H&H 7.7/25%. Last H&H 8.1/27.7. Platelet count 116,000. 09/23: EGD was done yesterday on 09/22. Complain of abdominal pain 7/10 intensity. No BM for 2 days. Has rectal urge/sensation and feels something stuck there. Dulcolax 10 mg oral and suppository given but no BM. Tried soapsuds enema if does not move, will order CT abdomen/pelvis with oral contrast. Continue IV PPI. Hemoglobin 8.2/27%. Platelet count 117,000. Impression: - Normal esophagus. - A medium amount of food (residue) in the stomach. - Oozing gastric ulcers with pigmented material. Injected. Treated with a heater probe. - No gross lesions in the duodenal bulb. - Retained food in the duodenum. - No specimens collected. 09/24: Severe constipation: Patient had multiple oral, rectal suppository including MiraLAX, senna S, Dulcolax 10 mg oral and suppository and soapsuds enema. Patient had [address] abdomen and pelvis individually reviewed and discussed with the surgeon. Left-sided fecal matter with the stretching of splenic flexure and left side of the colon. Patient has tenderness on the left side coincides with the CT findings. Soapsuds enema today. Lactulose added and discontinue MiraLAX as both are osmotic laxatives 09/25: Hemoglobin is 7.9, MCV 11. Patient is discharged on PPI pantoprazole 40 mg twice daily and Carafate. Follow-up in GI clinic in 1 month. Patient had several bowel movements 3-4. Patient is discharged on lactulose and senna S. Follow-up general surgery if needed for constipation. Patient has severe anemia and is on ferrous sulfate and folic acid. 2. Paroxysmal A-fib on warfarin, mechanical aortic valve: Patient was given vitamin K x 1 dose. Brain hemostasis controlled will need to put on IV heparin drip. 09/22: INR 2.5. 09/23 INR 1.6. Repeat INR today. 09/25 INR 3.2. Discontinue IV heparin drip. Patient is okay for discharge. #4. 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 Chronic Kidney Disease stage IV: Creatinine clearance is about 20 mill per minute. Baseline is that is around 2.25. Currently 2.01. #6. Severe dysphagia: Most recent GI evaluation during admission 06/2023 with upper endoscopy 06/16/2023 noted most recently prior with abnormal esophageal motility suspicious for esophageal spasm with injection of botulinum toxin, moderate Schatzki ring that was dilated, small hiatal hernia, normal second portion duodenum, biopsies obtained for evaluation of eosinophilic esophagitis. #7. Chronic pain syndrome: Continue home buprenorphine patch cautiously given low blood pressure secondary to acute GI bleed presentation as noted however do not want patient to withdrawal. #8. PAF: We will continue patient home amiodarone regimen, given acute presentation holding coumadin, given IV Vitamin K in the ED, will repeat INR following and in AM with further interventions pending level, once appropriate transition to heparin drip given mechanical valve. Will continue metoprolol but placed very strong hold parameters given low BP upon presentation. 09/23: INR is 1.6. Will start on IV heparin drip. #9. 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 #10. Valvular Heart Disease s/p mechanical aortic valve replacement, given acute presentation holding coumadin, given IV Vitamin K in the ED, will repeat INR following and in AM with further interventions pending level, once appropriate transition to heparin drip given mechanical valve. #11. HFrEF: ECHO 02/2023 showed an EF of 20 to 30%, s/p AICD placement, will very judiciously hydrate given history, will place hold parameters on patient's metoprolol and Lasix but give if able, as noted holding Coumadin with IV vitamin K administered in the ED with repeat INR trending with transition to heparin drip once appropriate, continue statin therapy, not on NABIL or/ARB be likely s econdary to underlying renal disease, with PRBC may need if BP allows Lasix to tolerate. #12. Hx Intermittent Complete HB/sick sinus syndrome: s/p history of pacemaker infection s/p pacemaker extraction and replacement on contralateral side. #13. Hypertension: Patient with low blood pressure upon presentation associated with #1, will continue patient home metoprolol and Lasix but will place very aggressive strong hold parameters on these therefore likely will not get these medications for at least the next 24 hours until PRBC administered and BP is improved. #14. Hyperlipidemia: We will continue patient on statin therapy. #15. Tobacco Abuse: Encouraged cessation, inpatient consultation per RT, NR if desired. #16. CODE status: Patient YONATAN is his daughter Emily and living will is he believes possibly in place. Discussed CODE status at length including difference between FULL code, DNR-CCA and DNR-CC status. Following discussions about the differences in these status, requested DNR-CCA, no intubation status. A Discharge medication reconciliation done. Discharge follow-up instructions completed. Discharge process discussed with the patient and all questions were answered to patient's satisfaction. Follow with PCP in 1 to 2 weeks Total time spent, exact 35 minutes on discharge meds reconciliation, examination, coordination of care with nurses and ancillary staff, review of imaging and blood test and discussion with the patient on follow-up instructions. Medications at Discharge Home Medications albuterol sulfate 90 mcg/actuation breath activated powder inhaler 2 puff inhalation Q4H PRN Shortness Of Breath 09/25/15 cholecalciferol (vitamin D3) 25 mcg (1,000 unit) tablet 1,000 unit PO DAILY S UPPLEMENT 09/25/15 folic acid 1 mg tablet 1 mg PO QHS SUPPLEMENT 06/24/16 tiotropium 2.5 mcg-olodaterol 2.5 mcg/actuation mist for inhalation (Stiolto Respimat) 1 puff inhalation BID ASTHMA 06/18/21 ipratropium 0.5 mg-albuterol 3 mg (2.5 mg base)/3 mL nebulization soln 3 ml inhalation 4X/DAY SHORTNESS OF BREATH 11/25/21 nitroglycerin 0.4 mg sublingual tablet 0.4 mg sublingual Q5M PRN Chest Pain #25 tabs 09/17/22 rosuvastatin 40 mg tablet (Crestor) 40 mg PO DAILY cholesterol 03/29/23 furosemide 20 mg tablet 20 mg PO DAILY dose has been decreased #90 tabs 04/25/23 potassium chloride 10 mEq tablet,extended release 10 meq PO DAILY #30 tabs 04/25/23 amiodarone 200 mg tablet 200 mg PO DAILY afib #90 tabs 04/28/23 empagliflozin 10 mg tablet (Jardiance) 10 mg PO DAILY heart Qlusters #90 tabs 04/28/23 lactulose 10 gram/15 mL (15 mL) oral solution 20 g (30 mL) PO DAILY #1,440 mL 08/01/23 ferrous sulfate 325 mg (65 mg iron) tablet 325 mg PO QODAY IRON SUPPLEMENT 30 days #0 tabs 09/26/23 lactulose 20 gram/30 mL oral solution 20 g (30 mL) PO TID 1 month #2,700 mL 09/26/23 metoprolol succinate 50 mg tablet,extended release 24 hr 50 mg PO DAILY 30 days #30 tabs 09/26/23 pantoprazole 40 mg tablet,delayed release 40 mg PO BID ACID REFLUX 30 days #60 tabs 09/26/23 sennosides 8.6 mg-docusate sodium 50 mg tablet (Stool Softener-Stimulant Laxative) 2 tab PO BID #0 tabs 09/26/23 sucralfate 100 mg/mL oral suspension (Carafate) 1 g (10 mL) PO TID 1 month #900 mL 09/26/23 warfarin 2 mg tablet 2 mg PO .COMPLEX blood thinner 3 days #0 tabs 09/26/23 warfarin 5 mg tablet 5 mg PO .COMPLEX afib 30 days #0 tabs 09/26/23 zolpidem 10 mg tablet 5 mg (1/2 x 10 mg) PO QHS sleep 3 days #0 tabs 09/26/23 Physical Exam Narrative Seen and examined. Abdominal pain is relieved and resolved. Patient had multiple bowel movements. Has mechanical aortic valve. Right-sided AICD. Multiple comorbidities. No acute chest pain or shortness of breath. Patient denies acute hematemesis melena or hematochezia but patient history not clear as sometimes. Dark stool. No further GI bleed. Physical exam General: Alert, Oriented x3, Cooperative HEENT: Atraumatic, PERRLA, EOMI, Normocephalic Oral: No Gingival or Mucosal Lesions/ Ulcerations Neck: Supple, No JVD, Negative Carotid Bruits Chest wall/Lungs: Air entry diminished in bilateral lung bases. No crepitation/rhonchi Cardiovascular: Regular rate, Regular Rhythm, Normal S1, Normal S2, mechanical aortic valve click. Systolic murmur. Status post AICD Abdomen: Bowel Sounds Present, Soft, generalized tenderness present all over abdomen with mild voluntary guarding. : No dysuria. No renal angle tenderness. No suprapubic tenderness. Extremities: No edema, Capillary Refill Less than 3 Seconds Skin: No rashes, No breakdown Musculoskeletal: No Tenderness to Palpation of Joints or Extremities. ROM intact Neurological: Cranial nerves II-XII grossly intact, DTR 2+/4. No acute focal neurological deficit. Psych/Mental Status: Flat affect. Medical Records Data Medical Nutrition Assessment Dietitian: Malnutrition Criteria Met Start: 09/23/23 13:56 Freq: Status: Active Protocol: Document 09/23/23 14:40 RMA (Rec: 09/23/23 14:40 RMA [id number]) Nutrition Malnutrition Evidence of Malnutrition Exists Yes Malnutrition (moderate): Chronic Evidenced By Suboptimal Energy Intake ( Moderate),Weight Loss ( Moderate),Physical Changes ( Moderate) Intake Problem Inadequate Oral Intake Etiology related to GI dysfunction Signs/Symptoms as evidenced by NPO Status Active Problem Clinical Problem Chronic Disease or Condition Related Malnutrition Etiology 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 Add 120mL ensure plus HP 4 times per day w/ medpass as diet advanced beyond clear liquids. Additional ONS as needed once PO adequacy established with meals. Weight / BMI Weight Weight: 128 lb 15.527 oz Body Mass Index (BMI) 18.5 ABG / Lab / Microbiology Data 09/26/23 03:50 09/26/23 03:50 Laboratory: Laboratory Results - last 24 hr 09/25/23 05:57: Platelet Estimate ADEQUATE, Anisocytosis 1+, Macrocytosis 1+ 09/25/23 09:01: Sodium 145, Potassium 3.9, Chloride 114 H, Carbon Dioxide 28.0, Anion Gap 3 L, BUN 34 H, Creatinine 2.05 H, Estim Creat Clear Calc 22.51, Est GFR (MDRD) Af Amer 40 L, Est GFR (MDRD) Non-Af 33 L, BUN/Creatinine Ratio 16.6, Glucose 104, Calcium 8.4 L, Phosphorus 2.8, Magnesium 2.8 H 09/25/23 15:00: APTT 48.3 H 09/25/23 21:36: APTT 63.2 H 09/26/23 03:50: WBC 4.5, RBC 2.52 L, Hgb 7.9 L, Hct 26.8 L, MCV 106.3 H, MCH 31.3, MCHC 29.5 L, RDW Std Deviation 84.0 H, RDW Coeff of Kalyan 21.2 H, Plt Count 108 L, MPV 10.5, Immature Gran % (Auto) 0.400, Neut % (Auto) 81.6 H, Lymph % (Auto) 8.9 L, Benzie % (Auto) 8.0, Eos % (Auto) 0.4, Baso % (Auto) 0.7, Absolute Neuts (auto) 3.7, Absolute Lymphs (auto) 0.40 L, Nucleated RBC % 0, Differential Comment SCANNED, Hypochromasia 2+, Anisocytosis 1+, PT 32.8 H, INR 3.2, APTT 76.4 H, Sodium 145, Potassium 3.8, Chloride 115 H, Carbon Dioxide 25.0, Anion Gap 5, BUN 29 H, Creatinine 1.81 H, Estim Creat Clear Calc 25.49, Est GFR (MDRD) Af Amer 46 L, Est GFR (MDRD) Non-Af 38 L, BUN/Creatinine Ratio 16.0, Glucose 117 H, Calcium 8.2 L Microbiology: Microbiology 09/22/23 20:15 Stool Stool Occult Blood (COREEN) - Final Occult Blood Positive Radiography Diagnostic Testing: Radiology Impression Abdomen CT 09/24/23 13:47 IMPRESSION: 1. Fecal retention concerning for constipation. 2. No focal acute inflammatory process. 3. Possible small bladder calculus. 4. Slightly prominent prostate. Electronically Signed: Aristeo Johnston MD at 11:46 EDT , Meaningful Use Info Meaningful Use Diagnoses (Choose all that apply): None applicable Discharge Plan Admission Admit Date/Time: 09/22/23 21:18 Primary Reason for Your Visit: Acute upper GI bleed, on warfarin. Attending Provider: Syd Rosario Primary Care Provider: Guillermo Pritchard Consulting Providers: Chichi Tejada; Taylor Jesus Discharge Orders/Prescriptions Prescriptions: New sennosides-docusate sodium [Stool Softener-Stimulant Laxat] 8.6-50 mg Tablet 2 tab PO BID Qty: 0 0RF Rx Instructions: 2 tablet twice daily. lactulose 20 gram/30 mL Solution 20 g PO TID 30 Days Qty: 2700 2RF Rx Instructions: For constipation. Hold if more than 2 complete BM per day metoprolol succinate 50 mg Tablet Extended Release 24 Hr 50 mg PO DAILY 30 Days Qty: 30 2RF Rx Instructions: Hold for heart less than 50 or systolic blood pressure less than 100 mmHg. sucralfate [Carafate] 100 mg/mL suspension 1 g PO TID 30 Days Qty: 900 2RF Rx Instructions: Please do not take medication 1 hour before or 2 hours after Carafate. Continued ipratropium-albuterol 0.5 mg-3 mg(2.5 mg base)/3 mL solution for nebulization 3 ml INHALATION 4X/DAY nitroglycerin 0.4 mg tablet, sublingual 0.4 mg SUBLINGUAL Q5M PRN (Reason: Chest Pain) Qty: 25 3RF cholecalciferol (vitamin D3) 1,000 UNIT tablet 1,000 unit PO DAILY albuterol sulfate 90 MCG aerosol powdr breath activated 2 puff INHALATION Q4H PRN (Reason: Shortness Of Breath) Patient Comments: folic acid 1 MG tablet 1 mg PO QHS Stiolto Respimat 2.5-2.5 mcg/actuation Mist 1 puff INHALATION BID rosuvastatin [Crestor] 40 mg tablet 40 mg PO DAILY pantoprazole 40 mg tablet,delayed release (DR/EC) 40 mg PO BID 30 Days Qty: 60 2RF potassium chloride 10 mEq tablet extended release 10 meq PO DAILY Qty: 30 11RF furosemide 20 mg tablet 20 mg PO DAILY Qty: 90 3RF amiodarone 200 mg tablet 200 mg PO DAILY Qty: 90 3RF Hold Instructions: not taking lactulose 10 gram/15 mL (15 mL) solution 20 g PO DAILY Qty: 1440 4RF Changed ferrous sulfate 325 mg (65 mg iron) tablet 325 mg PO QODAY 30 Days Qty: 0 0RF Patient Comments: iron supplement warfarin 2 mg tablet 2 mg PO .COMPLEX 3 Days Qty: 0 0RF Protocol: Dose Management Condition: Tuesday Dose/Route: 4 mg Instruction: 2 x 2 mg tablets Condition: Tuesday Dose/Route: 4 mg Instruction: 2 x 2 mg tablets Condition: Tuesday Dose/Route: 0 mg Instruction: 0 tablets Condition: Tuesday Dose/Route: 4 mg Instruction: 2 x 2 mg tablets Condition: Dose/Route: 4 mg Instruction: 2 x 2 mg tablets Condition: Tuesday Dose/Route: 4 mg Instruction: 2 x 2 mg tablets Condition: Tuesday Dose/Route: 4 mg Instruction: 2 x 2 mg tablets Protocol Text: Adjustment Start Date: Tuesday09/13/23 INR Value: 4.1 INR Date: 09/13/23 Recheck Date: 09/20/23 Rx Instructions: takes 2mg on Mon, Weds, Fri, and Sun as directed. (5 mg orally Tues, and Sat). Keep INR around 3.0. warfarin 5 mg tablet 5 mg PO .COMPLEX 30 Days Qty: 0 0RF Protocol: Dose Management Condition: Tuesday Dose/Route: 4 mg Instruction: 2 x 2 mg tablets Condition: Tuesday Dose/Route: 4 mg Instruction: 2 x 2 mg tablets Condition: Tuesday Dose/Route: 0 mg Instruction: 0 tablets Condition: Tuesday Dose/Route: 4 mg Instruction: 2 x 2 mg tablets Condition: Dose/Route: 4 mg Instruction: 2 x 2 mg tablets Condition: Tuesday Dose/Route: 4 mg Instruction: 2 x 2 mg tablets Condition: Tuesday Dose/Route: 4 mg Instruction: 2 x 2 mg tablets Protocol Text: Adjustment Start Date: Tuesday09/13/23 INR Value: 4.1 INR Date: 09/13/23 Recheck Date: 09/20/23 Rx Instructions: 5 mg orally Tues, and Sat (takes 2mg on Mon, Weds, Fri, and Sun as directed) zolpidem 10 mg tablet 5 mg PO QHS 3 Days Qty: 0 0RF Patient Comments: TAKE 1 TABLET BY MOUTH EVERY DAY Held Jardiance 10 mg tablet 10 mg PO DAILY Qty: 90 3RF Hold Instructions: Hold for 3 days. Discontinued clopidogrel 75 mg tablet 75 mg PO DAILY metoprolol succinate 100 mg tablet extended release 24 hr 100 mg PO Q12H Patient Comments: TAKE 1 TABLET BY MOUTH EVERY 12 HOURS enoxaparin 60 mg/0.6 mL syringe 60 mg subcut QHS Qty: 6 0RF Referrals / Follow Up: Marv Kraus MD [Med Staff - Active Staff] - 10/03/23 2:15 pm (Or severe anemia.) Guillermo Pritchard MD [Primary Care Provider] - 10/13/23 9:10 am Fazal Muir DO [Med Staff - Active Staff] - 10/18/23 10:30 am Taylor Jesus MD [Med Staff - Active Staff] - Within 1 Month (severe constipation as needed) Adilia Vidales TICKET SALES AGENT, TICKET SALES AGENT-C [Non-Staff -Ordering Privileges] - 10/07/23 2:00 pm Disposition Disposition (needs filled in before D/C Order can be placed): Home, Self Care Charges/Coding Visit Charges Inpatient E&M: 76208 Disch Hosp >30min
[2023-09-26 09:14] VITALS: O2SAT 0; O2SAT 2
--- NOTE | 2023-09-26 09:46 | CASEMGMT ---
Discharge PlanningA list of HH providers including quality and resource use data and consistent with the patient's preferred geographic region, medical needs, and insurance network was created in [facility] Guide.? This list was provided to the Maria Recinos Discharge Planning Asst.
--- NOTE | 2023-09-26 10:01 | CASEMGMT ---
Addendum entered by Lily Murrell 09/26/23 11:42: SURY MUNOZ received call back from [facility] and they are able to accept patient with planned start of care for Wednesday 09/27. SURY MUNOZ updated patient and daughter. Patient and daughter had no further question or concerns. Original Note: Patient has order for discharge. SURY MUNOZ in to discuss needs at discharge. Therapy recommending additional therapy at discharge, discussed HHC at discharge. Patient agreeable to [facility], list provided, prefers [facility]. Patient had no further question or concerns at this time. SURY MUNOZ called [facility] and made referral, awaiting call back.
--- NOTE | 2023-09-26 10:19 | PHA.DC.MC.R ---
Pharmacy [facility] has performed discharge medication reconciliation and counseling for this patient. The patient's discharge medication list was reviewed for discrepancies and discrepancies were resolved. The patient was counseled on the following discharge medications and changes in medications for homegoing were reviewed. The Reason for Use, instructions for use, and potential side effects were reviewed for all new medications. The patient's questions regarding all of their medications were answered. 1. Lactulose 20 grams PO TID 2. Senna/docusate 2 tablets PO BID 3. Metoprolol succinate 50 mg PO daily The patient was able to verbally demonstrate an understanding of their discharge medications. Medications at Discharge Home Medications albuterol sulfate 90 mcg/actuation breath activated powder inhaler 2 puff inhalation Q4H PRN Shortness Of Breath 09/25/15 cholecalciferol (vitamin D3) 25 mcg (1,000 unit) tablet 1,000 unit PO DAILY SUPPLEMENT 09/25/15 folic acid 1 mg tablet 1 mg PO QHS SUPPLEMENT 06/24/16 tiotropium 2.5 mcg-olodaterol 2.5 mcg/actuation mist for inhalation (Stiolto Respimat) 1 puff inhalation BID ASTHMA 06/18/21 ipratropium 0.5 mg-albuterol 3 mg (2.5 mg base)/3 mL nebulization soln 3 ml inhalation 4X/DAY SHORTNESS OF BREATH 11/25/21 nitroglycerin 0.4 mg sublingual tablet 0.4 mg sublingual Q5M PRN Chest Pain #25 tabs 09/17/22 rosuvastatin 40 mg tablet (Crestor) 40 mg PO DAILY cholesterol 03/29/23 furosemide 20 mg tablet 20 mg PO DAILY dose has been decreased #90 tabs 04/25/23 potassium chloride 10 mEq tablet,extended release 10 meq PO DAILY #30 tabs 04/25/23 amiodarone 200 mg tablet 200 mg PO DAILY afib #90 tabs 04/28/23 empagliflozin 10 mg tablet (Jardiance) 10 mg PO DAILY heart health #90 tabs 04/28/23 lactulose 10 gram/15 mL (15 mL) oral solution 20 g (30 mL) PO DAILY #1,440 mL 08/01/23 ferrous sulfate 325 mg (65 mg iron) tablet 325 mg PO QODAY IRON SUPPLEMENT 30 days #0 tabs 09/26/23 lactulose 20 gram/30 mL oral solution 20 g (30 mL) PO TID 1 month #2,700 mL 09/26/23 metoprolol succinate 50 mg tablet,extended release 24 hr 50 mg PO DAILY 30 days #30 tabs 09/26/23 pantoprazole 40 mg tablet,delayed release 40 mg PO BID ACID REFLUX 30 days #60 tabs 09/26/23 sennosides 8.6 mg-docusate sodium 50 mg tablet (Stool Softener-Stimulant Laxative) 2 tab PO BID #0 tabs 09/26/23 warfarin 2 mg tablet 2 mg PO .COMPLEX blood thinner 3 days #0 tabs 09/26/23 warfarin 5 mg tablet 5 mg PO .COMPLEX afib 30 days #0 tabs 09/26/23 zolpidem 10 mg tablet 5 mg (1/2 x 10 mg) PO QHS sleep 3 days #0 tabs 09/26/23
== END 2023-09-26 11:48 | disposition home or self-care (01) | DRG 378 ==
LOC: ED 21:36 → PCU 21:41
PROVIDERS: Internal Medicine Gastroenterology; Admitting Provider Family Medicine; Emergency Provider Emergency Medicine; PCP Family Medicine; Referring Provider Family Medicine; Visit Provider Internal Medicine
PROC: 0DJ08ZZ Inspection of Upper Intestinal Tract, Via Natural or Artificial Opening Endoscopic (ICD-10-PCS; CPT 43235; principal; 2023-09-23 15:25)
DX: K25.4 Chronic or unspecified gastric ulcer with hemorrhage (principal); D62 Acute posthemorrhagic anemia; E44.0 Moderate protein-calorie malnutrition; I13.0 Hypertensive heart and chronic kidney disease with heart failure and stage 1 through stage 4 chronic kidney disease, or unspecified chronic kidney disease; D68.32 Hemorrhagic disorder due to extrinsic circulating anticoagulants; J96.11 Chronic respiratory failure with hypoxia; I50.22 Chronic systolic (congestive) heart failure; N18.4 Chronic kidney disease, stage 4 (severe); Z68.1 Body mass index [BMI] 19.9 or less, adult; I49.5 Sick sinus syndrome; D50.9 Iron deficiency anemia, unspecified; F17.210 Nicotine dependence, cigarettes, uncomplicated; I95.9 Hypotension, unspecified; J44.9 Chronic obstructive pulmonary disease, unspecified; I48.0 Paroxysmal atrial fibrillation; K74.00 Hepatic fibrosis, unspecified; E78.00 Pure hypercholesterolemia, unspecified; I25.5 Ischemic cardiomyopathy; I25.10 Atherosclerotic heart disease of native coronary artery without angina pectoris; K44.9 Diaphragmatic hernia without obstruction or gangrene; K59.00 Constipation, unspecified; Z95.2 Presence of prosthetic heart valve; G89.4 Chronic pain syndrome; R13.10 Dysphagia, unspecified; T45.515A Adverse effect of anticoagulants, initial encounter; Z79.01 Long term (current) use of anticoagulants; Z79.02 Long term (current) use of antithrombotics/antiplatelets; Z79.899 Other long term (current) drug therapy; Z99.81 Dependence on supplemental oxygen; Z66 Do not resuscitate; Z87.11 Personal history of peptic ulcer disease; Z95.810 Presence of automatic (implantable) cardiac defibrillator; Z95.1 Presence of aortocoronary bypass graft; Z95.5 Presence of coronary angioplasty implant and graft
CPT/HCPCS: 36415; 71045; 74176; 80048; 80053; 82274; 83735; 83880; 84100; 84484; 85014; 85018; 85025; 85610; 85730; 86850; 86900; 86901; 86902; 86920; 86921; 86922; 93005; 94640; 94668; 94762; 97116; 97162; 97166; 97535; 97802; 99252; 99285; 99406; J7030; J7040; P9016; A4216; G0463; J2405; J3490

== ENCOUNTER 2023-09-26 22:11 | Observation (INO) | payer MEDICARE, SELFPAY ==
[2023-09-26] VITALS (8 sets, daily range): BP systolic 121–133; BP diastolic 54–61; PULSE 60; RESP 11–18; TEMP 36.3–36.7; O2SAT 97–99; BMI 18.6
--- NOTE | 2023-09-26 22:43 | CT_ITS ---
STUDY: CT BRAIN WITHOUT CONTRAST REASON FOR EXAM: Male, 83 years old. leg weakness RADIATION DOSAGE (If Supplied By Facility): CTDIvol = ( 44.99 ) mGy, DLP = ( 829.85 ) mGycm TECHNIQUE: Transaxial CT imaging of the brain was performed without administration of intravenous contrast material. Individualized dose optimization techniques were used for this CT. COMPARISON: No relevant priors. FINDINGS: Normal soft tissue structures. Normal calvarium. Normal size ventricles and extra-axial spaces for the patient''s age. Mild white matter microangiopathic ischemic changes of the cerebral hemispheres. Normal basal ganglia and thalami. Normal brainstem. Normal cerebellum. There is no intracranial hemorrhage. There are no findings of an acute ischemic infarction. Normal visualized paranasal sinuses. CT/Brain/Head without Contrast IMPRESSION: Age-related changes of the brain. Electronically Signed: Fredis Stanford DO at 23:18 EDT ,
--- NOTE | 2023-09-26 22:44 | EDS_ITS ---
HPI History of Present Illness Chief Complaint: Numb/Ting Informant: patient and EMS Narrative Narrative: 83-year-old male presenting to the emergency room with bilateral lower leg weakness numbness. Patient states that he was admitted to the hospital for GI bleed found to have stomach ulcers and was discharged home this morning. States this morning he was ambulating up on the floor with a walker. He states it was a long distance but he was able to do it. He states that he had a very difficult time getting into his house today even using a ramp. States that this afternoon around 2 PM he began to feel that the bilateral legs were numb from the knees inferiorly. He states he was very difficult for him to get around. His daughter was not home and then this evening had significant difficulty trying to get to the bathroom so EMS was called and brought him in. He has a history of chronic back pain and has had prior back surgeries. He states he has no change in the pain. He was able to urinate this evening. Omar like he emptied his bladder. He had multiple bowel movements yesterday none today. Patient states that he is able to contract the muscles of his legs but he just cannot lift them very far up off the bed. Patient is on Coumadin for mechanical heart valve and atrial fibrillation. He has an ICD in place. This was replaced due to infection in March 2023. [facility] Medical History Ambulates with cane Anemia Anemia due to chronic blood loss Anticoagulant long-term use Arthritis Asthma Atherosclerotic heart disease of [place] coronary artery without angina pectoris Atrial fibrillation Back pain due to injury CHF (congestive heart failure) Chronic airway obstruction Chronic anticoagulation Chronic cough Chronic pain Chronic pain syndrome CKD (chronic kidney disease) COPD (chronic obstructive pulmonary disease) COPD (chronic obstructive pulmonary disease) Coronary artery disease Erosion of pacemaker pocket due to and not concurrent with implantation of cardiac pacemaker Essential hypertension Former smoker GERD (gastroesophageal reflux disease) Heart attack HFrEF (heart failure with reduced ejection fraction) High cholesterol History of edema History of GI bleed History of heart attack History of pain when walking History of stress test Hx of fracture of ankle Hx of fracture of ankle Hypertension ICD (implantable cardioverter-defibrillator) in place Injury of back Injury of head and neck Intermittent complete heart block Ischemic cardiomyopathy Kidney disease [facility] current use of anticoagulant 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 On home oxygen therapy Osteoporosis Paroxysmal atrial fibrillation Pericardial effusion after operative procedure Persistent atrial fibrillation Pure hypercholesterolemia Restless legs Secondary pulmonary arterial hypertension Sick sinus syndrome Spinal stenosis of lumbar region Stage 3a chronic kidney disease (CKD) Stroke Symptomatic bradycardia TIA (transient ischemic attack) Tobacco use disorder Wears dentures Wears glasses Home Medications albuterol sulfate 90 mcg/actuation breath activated powder inhaler 2 puff inhalation Q4H PRN Shortness Of Breath 09/25/15 [History Last Taken 08/23/22] cholecalciferol (vitamin D3) 25 mcg (1,000 unit) tablet 1,000 unit PO DAILY SUPPLEMENT 09/25/15 [History Last Taken 08/24/22] folic acid 1 mg tablet 1 mg PO QHS SUPPLEMENT 06/24/16 [History Last Taken 08/23/22] tiotropium 2.5 mcg-olodaterol 2.5 mcg/actuation mist for inhalation (Stiolto Respimat) 1 puff inhalation BID ASTHMA 06/18/21 [History Last Taken 08/24/22] ipratropium 0.5 mg-albuterol 3 mg (2.5 mg base)/3 mL nebulization soln 3 ml inhalation 4X/DAY SHORTNESS OF BREATH 11/25/21 [History Last Taken 04/06/22] nitroglycerin 0.4 mg sublingual tablet 0.4 mg sublingual Q5M PRN Chest Pain #25 tabs 09/17/22 [Rx Last Taken Unknown] rosuvastatin 40 mg tablet (Crestor) 40 mg PO DAILY cholesterol 03/29/23 [History Last Taken Unknown] furosemide 20 mg tablet 20 mg PO DAILY dose has been decreased #90 tabs 04/25/23 [Rx Last Taken Unknown] potassium chloride 10 mEq tablet,extended release 10 meq PO DAILY #30 tabs 04/25/23 [Rx Last Taken Unknown] amiodarone 200 mg tablet 200 mg PO DAILY afib #90 tabs 04/28/23 [Rx Last Taken Unknown] empagliflozin 10 mg tablet (Jardiance) 10 mg PO DAILY heart health #90 tabs 04/28/23 [Rx Last Taken Unknown] lactulose 10 gram/15 mL (15 mL) oral solution 20 g (30 mL) PO DAILY #1,440 mL 08/01/23 [Rx Last Taken Unknown] ferrous sulfate 325 mg (65 mg iron) tablet 325 mg PO QODAY IRON SUPPLEMENT 30 days #0 tabs 09/26/23 [Rx Last Taken Unknown] lactulose 20 gram/30 mL oral solution 20 g (30 mL) PO TID 1 month #2,700 mL 09/26/23 [Rx Last Taken Unknown] metoprolol succinate 50 mg tablet,extended release 24 hr 50 mg PO DAILY 30 days #30 tabs 09/26/23 [Rx Last Taken Unknown] pantoprazole 40 mg tablet,delayed release 40 mg PO BID ACID REFLUX 30 days #60 tabs 09/26/23 [Rx Last Taken Unknown] sennosides 8.6 mg-docusate sodium 50 mg tablet (Stool Softener-Stimulant Laxative) 2 tab PO BID #0 tabs 09/26/23 [Rx Last Taken Unknown] sucralfate 100 mg/mL oral suspension (Carafate) 1 g (10 mL) PO TID 1 month #900 mL 09/26/23 [Rx Last Taken Unknown] warfarin 2 mg tablet 4 mg PO DAILY blood thinner #0 tabs 09/26/23 [Rx Last Taken Unknown] zolpidem 10 mg tablet 5 mg (1/2 x 10 mg) PO QHS sleep 3 days #0 tabs 09/26/23 [Rx Last Taken Unknown] Allergy/AdvReac Type Severity Reaction Status Date / Time No Known Allergies Allergy Verified 09/26/23 22:26 Family History Son , age 44 from [place] CAD (coronary artery disease) Myocardial infarction Sudden cardiac Brother CAD (coronary artery disease) Pt states all nine of his siblings have heart problems Sister CAD (coronary artery disease) Patient states all nine of his siblings have heart problems Other History of mechanical aortic valve replacement Surgical History Cardiac pacemaker in situ H/O cardiac catheterization H/O prosthetic aortic valve replacement History of coronary artery stent placement (~06/28/11) History of coronary artery stent placement History of esophagogastroduodenoscopy (EGD) (~10/2021) History of left heart catheterization History of lumbar fusion History of mechanical aortic valve replacement (~03/27/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 Hx of CABG Presence of biventricular implantable cardioverter-defibrillator (ICD) S/P CABG x 1 (~03/27/93) Status post cardiac surgery Social History household members: family and none housing: house Smoking Status: Current every day smoker tobacco type: cigarettes and smokeless tobacco alcohol intake: never substance use type: does not use caffeine: No ROS ROS ED Constitutional Constitutional ED: Denies chills or weight loss Eyes Eyes: Denies change in vision or diplopia ENT ENT ED: Denies ear pain, rhinorrhea or sore throat Cardiovascular Cardiovascular: Denies chest pain, orthopnea, palpitations or racing heartbeat Respiratory/Chest Respiratory/Chest: Denies cough, dyspnea or orthopnea Gastrointestinal Gastrointestinal: Denies abdominal pain, diarrhea, nausea or vomiting Genitourinary Genitourinary ED: Denies dysuria, hematuria or urinary frequency Musculoskeletal Musculoskeletal: Reports back pain and other Details: Chronic back pain no change ; Denies arthralgias or myalgias Integumentary Denies abscess or rash Neurologic Neurologic: Reports other Details: Bilateral lower leg weakness and numbness from the knees inferiorly ; Denies headache(s) Psychiatric Psychiatric: Denies anxiety, depression, suicidal ideation or suicidal thoughts Endocrine Endocrinology: Denies polydipsia, polyphagia or polyuria Allergic/Immunologic Allergic/Immunologic ED: Denies mouth swelling, tongue swelling or urticaria EXAM Physical Exam Const Vital Signs: 09/26/23 22:20 09/26/23 23:12 09/26/23 23:26 Temperature 98.1 F 97.4 F L Temperature Source Oral Temporal Pulse Rate 60 60 60 Respiratory Rate 18 14 14 Blood Pressure 123/56 H 133/61 H 126/57 H Blood Pressure Mean 78 85 80 Pulse Ox 99 99 99 Oxygen Delivery Method Room Air Room Air Room Air 09/26/23 23:28 09/26/23 23:30 09/26/23 23:40 Temperature Temperature Source Pulse Rate 60 60 60 Respiratory Rate 13 11 L 12 Blood Pressure 126/57 H Blood Pressure Mean 80 Pulse Ox 99 97 Oxygen Delivery Method Room Air 09/26/23 23:45 09/26/23 23:50 09/27/23 00:00 Temperature Temperature Source Pulse Rate 60 60 60 Respiratory Rate 12 14 8 L Blood Pressure 121/54 H 115/58 L Blood Pressure Mean 76 76 Pulse Ox 98 98 Oxygen Delivery Method Room Air 09/27/23 00:10 09/27/23 00:15 Temperature Temperature Source Pulse Rate 60 60 Respiratory Rate 9 L 11 L Blood Pressure 127/59 H Blood Pressure Mean 80 Pulse Ox 98 99 Oxygen Delivery Method Room Air Positive well nourished and well developed General Appearance ED: well developed HEENT Reports normocephalic, head/scalp atraumatic and moist mucous membranes Eyes PERRL and EOMs intact bilaterally Neck no lymphadenopathy, supple and no JVD Resp normal respiratory effort and clear to auscultation bilaterally Cardio regular rate, regular rhythm and no murmurs GI normal to inspection, nondistended, normoactive bowel sounds and non-tender Palpation: soft Back/Spine no CVA tenderness Back/Spine Narrative: Patient has painful range of motion when I attempt to set him up which she states is not any different than normal. He has healed surgical incision over the lumbar spine. No significant tenderness to palpation. I do not appreciate any tissue texture changes that would suggest underlying infection. Extremity normal to inspection General Extremety ED: Negative for edema General Extremity: Negative for edema Neuro oriented x3 and CN's II-XII intact bilaterally Neuro Narrative: Patient has bilateral lower extremity weakness. He is able to contract the quadriceps musculatures and dorsi and plantarflex the feet. He withdraws to pain. He states he cannot feel light touch. He reports normal sensation of the thighs. Patient has bilateral Achilles reflexes at +2 and patellar reflexes bilateral at +2 Sensorium / Orientation: alert Psych mental status grossly normal Mood & Affect: Negative for depressed or tearful Skin no rashes or lesions noted and no wounds MDM MDM MDM Narrative Medical decision making narrative: Basic blood work was obtained. Hemoglobin stable tonight at 8.8. Platelet count is 143. He has been thrombocytopenic but this is elevated compared to her has been. INR is therapeutic at 2.8. Sodium potassium within normal limits. BUN of 28 with a creatinine of 2.05. Does have elevation of his transaminases and his alkaline phosphatase with a normal bilirubin. His transaminases have been elevated but this is slightly higher than where they have been. CT the brain shows no acute findings. Urinalysis is negative. Postvoid residual volume is 112. Negative interpretation of the plain films of the lumbar spine is degenerative changes or surgical hardware. At this point I am not seeing evidence of acute stroke. I do not see cauda equina or any other obvious spinal cord emergency. Not sure if this is a peripheral neuropathy but exactly not sure. No change in back pain to suggest hematoma or bleeding event. He is not having hip flexor pain or significant weakness with that to suggest psoas hematoma. I do not see electrolyte disturbance. Patient has extensive medical problems with recent 4-day hospital stay may benefit from transfer to rehab facility. I spoke with the hospitalist and we will be admitting. History & Record Review Discussion w/independent historian: Patient and Family Additional record(s) reviewed:: Prior inpatient record, Prior ED visit and Prior labs Lab Data Attestation: I reviewed the patient's lab results. Labs: Laboratory Results - last 24 hr 09/26/23 09/26/23 22:56 23:24 WBC 5.8 RBC 2.77 L Hgb 8.8 L Hct 29.7 L MCV 107.2 H MCH 31.8 MCHC 29.6 L RDW Std Deviation 82.3 H RDW Coeff of [place] 20.7 H Plt Count 143 L MPV 11.3 Immature Gran % (Auto) 0.700 Neut % (Auto) 82.4 H Lymph % (Auto) 6.4 L [place] % (Auto) 9.3 Eos % (Auto) 0.7 Baso % (Auto) 0.5 Absolute Neuts (auto) 4.8 Absolute Lymphs (auto) 0.37 L Nucleated RBC % 0 Differential Comment SEE COMMENT Platelet Estimate ADEQUATE RBC Morphology N CHROM Hypochromasia RARE Anisocytosis 1+ Macrocytosis 1+ Ovalocytes RARE PT 29.1 H INR 2.8 Sodium 145 Potassium 4.2 Chloride 112 H Carbon Dioxide 27.0 Anion Gap 6 BUN 28 H Creatinine 2.05 H Estim Creat Clear Calc 21.95 Est GFR (MDRD) Af Amer 40 L Est GFR (MDRD) Non-Af 33 L BUN/Creatinine Ratio 13.7 Glucose 144 H Calcium 8.2 L Total Bilirubin 0.50 AST 317 H ALT 223 H Alkaline Phosphatase 131 H Total Protein 5.7 L Albumin 2.9 L Globulin 2.8 Albumin/Globulin Ratio 1.0 Urine Color Yellow Urine Clarity Sl. Cloudy Urine pH 5.0 Ur Specific [place] 1.015 Urine Protein 100 H Urine Glucose (UA) 1000 H Urine Ketones Negative Urine Occult Blood 250 H Urine Nitrite Negative Urine Bilirubin Negative Urine Urobilinogen Normal Ur Leukocyte Esterase 25 H Urine RBC 0 SEEN Urine WBC 0-5 SEEN Ur Squamous Epith Cells 0 SEEN Urine Bacteria 0 SEEN Hyaline Casts 0-5 SEEN Fine Granular Casts 5-10 SEEN Coarse Granular Casts 10-25 SEEN Urine Mucus 0 SEEN Radiography Diagnostic Testing: Clinical Impression(s) from Imaging Studies Brain CT 09/26/23 22:43 IMPRESSION: Age-related changes of the brain. Electronically Signed: Fredis Stanford DO at 23:18 EDT , Lumbar Spine X-Ray 09/26/23 23:00 IMPRESSION: Degenerative and postsurgical changes of the lumbar spine. Electronically Signed: Fredis Stanford DO at 23:38 EDT , Discharge Plan Dx/Rx/DC Orders Clinical Impression: Anemia, Anticoagulant long-term use, Bilateral leg weakness, Elevated liver enzymes, Bilateral leg numbness, Thrombocytopenia Disposition Disposition: Acute Care [facility]
--- NOTE | 2023-09-26 23:00 | RAD_ITS ---
STUDY: X-RAY - LUMBAR SPINE REASON FOR EXAM: Male, 83 years old. leg weakness TECHNIQUE: 3 view(s) of the lumbar spine were obtained. COMPARISON: None FINDINGS: Normal lumbar lordosis. There is no substantial scoliosis. There is a normal alignment of the vertebrae. Degenerative changes of the vertebral bodies with spurring at the endplates. Surgical fusion of L4-S1 with laminectomy of L4 and L5. Slightly narrowed L2-3 L4-5 and L5-S1 disc space heights. The soft tissue structures are unremarkable. Diffusely calcified aorta. RAD/Lumbar Spine 2 or 3 Views IMPRESSION: Degenerative and postsurgical changes of the lumbar spine. Electronically Signed: Fredis Stanford DO at 23:38 EDT ,
[2023-09-26 23:02] LABS: Absolute Lymphocyte Count 0.37 X10^3/uL (0.83-4.51); Absolute Neutrophil Count 4.8 X10^3/uL (2.0-7.7); Basophil# 0.03 X10^3/uL; Basophil% 0.5 % (0-1); Eosinophil# 0.04 X10^3/uL; Eosinophils% 0.7 % (0-5); Hematocrit 29.7 % (40-54); Hemoglobin 8.8 g/dL (13.0-16.5); Lymphocyte # 0.37 X10^3/ul (0.83-4.51); Lymphocyte % 6.4 % (19-41); Mean Corp Hgb Conc 29.6 g/dL (32-36); Mean Corpuscular Hgb 31.8 pg (27.0-32.0); Mean Corpuscular Volume 107.2 fL (80-94); Mean Platelet Vol. 11.3 fl (6.2-12.0); Monocyte# 0.54 X10^3/uL; Monocyte% 9.3 % (0-10); NRBC Flagged by Analyzer 0 % (0-5); Neutrophil # 4.77 X10^3/uL (2.7-7.7); Neutrophil % 82.4 % (47-70); POSITIVE DIFFERENTIAL YES; POSITIVE MORPHOLOGY YES; Platelet Count 143 K/mm3 (150-450); RBC Distribution Width CV 20.7 % (11.6-14.6); RBC Distribution Width SD 82.3 fl (35.1-43.9); Red Blood Count 2.77 M/mm3 (4.6-6.2); White Blood Count 5.8 K/mm3 (4.4-11.0)
[2023-09-26 23:10] LABS: Differential Indicated SCAN CRITERIA MET
[2023-09-26 23:12] LABS: International Normalized Ratio 2.8; Prothrombin Time (Protime)PT. 29.1 SECONDS (11.7-14.9)
[2023-09-26 23:17] LABS: Anisocytosis 1+; Hypochromasia RARE; Macrocytosis 1+; Platelet Estimate ADEQUATE (ADEQ); Red Cell Morphology N CHROM NORMAL (NORM C&C)
[2023-09-26 23:18] LABS: Ovalocyte RARE
[2023-09-26 23:23] LABS: AST(SGOT) 317 U/L (15-37); Alanine Aminotransfer ALT/SGPT 223 U/L (16-61); Albumin, Serum 2.9 g/dL (3.2-5.0); Alkaline Phosphatase 131 U/L (45-117); Anion Gap 6 (5-15); BUN 28 mg/dL (7-18); BUN/Creat Ratio 13.7 RATIO (10-20); Calcium,Total 8.2 mg/dL (8.5-10.1); Chloride 112 mmol/L (98-107); Creatinine, Serum 2.05 mg/dL (0.70-1.30); EST Glomerular Filtration Rate 33 mL/min (>60); Est Glom Filt Rate - Afr Amer 40 mL/min (>60); Estimated Creatinine Clearance 21.95 ml/min; Globulin 2.8 g/dL (2.2-4.2); Glucose 144 mg/dL (74-106); Potassium 4.2 mmol/L (3.5-5.1); Protein, Total 5.7 g/dL (6.4-8.2); Sodium Level 145 mmol/L (136-145)
[2023-09-26 23:27] LABS: Bacteria 0 SEEN /hpf (None Seen); Mucous, Urine 0 SEEN /hpf (<or=2+); Red Blood Cells-Urine 0 SEEN /hpf (0-5); Squamous Epithelial Cells - UA 0 SEEN /hpf (0-5)
[2023-09-26 23:29] LABS: Color, Urine Yellow (Yellow); Glucose, Dipstick 1000 mg/dl (Normal); Ketone-Dipstick Negative (Negative); Leukocyte Esterase-Dipstick 25 /ul (Negative); Nitrite-Dipstick Negative (Negative); Occult Blood-Urine 250 /ul (Negative); Protein-Dipstick 100 mg/dl (Negative); Specific Gravity, Urine 1.015 (1.002-1.030); Urine Bilirubin Dipstick Negative (Negative); Urine Clarity Sl. Cloudy (Clear); Urine Urobilinogen Normal (Normal)
[2023-09-26 23:49] LABS: White Blood Cells 0-5 SEEN /hpf (0-5)
[2023-09-26 23:50] LABS: Coarse Granular Cast 10-25 SEEN /lpf (0-5 /lpf); Fine Granular Cast- Urine 5-10 SEEN /lpf (0-5)
[2023-09-26 23:51] LABS: Hyaline Cast 0-5 SEEN /lpf (0-5)
[2023-09-27] VITALS (27 sets, daily range): BP systolic 88–127; BP diastolic 47–66; PULSE 59–79; RESP 8–18; TEMP 36.6–36.8; O2SAT 95–100; BMI 18.0; BMI 17.9
--- NOTE | 2023-09-27 01:23 | HP.PCM.HOS_ITS ---
[facility] General General Date of Admission: 09/27/23 Date of Service: 09/27/23 Chief Complaint: Back Pain with Numbness and Tingling in Both Legs. [facility] Narrative REBECCA ARRIOLA, is a 83 M with a past medical history of essential hypertension, hyperlipidemia, DM-2; of unknown control, PAF and history of Mechanical AVR; on Coumadin, CAD; s/p CABG x 1 (1992) and PCI x 2 to mid-LAD (02/2023), Chronic Systolic CHF; with LVEF ~20-30% (02/2023), history of SSS; s/p PPM/AICD (replaced 08/19 infection 03/2023), CKD; stage III-IV (with baseline creatinine of ~2.25 mg/dL), history of tobacco abuse with subsequent asthma/COPD; with chronic respiratory failure, DNR-CCA; with no intubation, OA; with history of 4 back surgeries with lumbar fusion (last ~1989) and migrating hardware; on buprenorphine patch and recent admission here from September 22, 2023 to September 26, 2023 for treatment of an Acute GI Bleed in the setting of chronic JEREMY with EGD done by Dr. 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 After he made it into the house he had an acute worsening of his chronic severe back pain and then he went to the bathroom and then felt like he did not have enough strength to stand up made worse by worsening numbness and tingling so his daughter then called one of his doctors who instructed her to come back in for further evaluation and treatment so she activated EMS. He currently is not complaining of a change in his chronic back pain and he was able to urinate with multiple BM's yesterday but none today. He had been able to live at home with help from his daughter who lives down the street from him - but now he is not able to return home safely because he cannot independently do his ADL's - including make it up to the ramp into his home without becoming completely exhausted. He states he can barely lift his legs off the bed and his daughter wondered aloud whether he was having a further migration of the old hardware from his previous back surgeries. He denies associated fever, chills, nausea, vomiting, diarrhea or further GI bleeding but he does admit to chronic constipation. In the ER he was diagnosed with Generalized Weakness with Ambulatory Dysfunction in the setting of a recent admission for GI Bleed with a known history of migrating hardware in his lumbar spine with suspected radiculopathy causing numbness and weakness in both of his legs and he was then admitted to the general medical floor under observation status for consideration of possible rehabilitation on TCU to help prevent further serial readmission for a stay that is expected to be less than 48 hours. [facility] Medical History Ambulates with cane Anemia Anemia due to chronic blood loss Anticoagulant long-term use Arthritis Asthma Atherosclerotic heart disease of [place] coronary artery without angina pectoris Atrial fibrillation Back pain due to injury CHF (congestive heart failure) Chronic airway obstruction Chronic anticoagulation Chronic cough Chronic pain Chronic pain syndrome CKD (chronic kidney disease) COPD (chronic obstructive pulmonary disease) COPD (chronic obstructive pulmonary disease) Coronary artery disease Erosion of pacemaker pocket due to and not concurrent with implantation of cardiac pacemaker Essential hypertension Former smoker GERD (gastroesophageal reflux disease) Heart attack HFrEF (heart failure with reduced ejection fraction) High cholesterol History of edema History of GI bleed History of heart attack History of pain when walking History of stress test Hx of fracture of ankle Hx of fracture of ankle Hypertension ICD (implantable cardioverter-defibrillator) in place Injury of back Injury of head and neck Intermittent complete heart block Ischemic cardiomyopathy Kidney disease [place] current use of anticoagulant 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 On home oxygen therapy Osteoporosis Paroxysmal atrial fibrillation Pericardial effusion after operative procedure Persistent atrial fibrillation Pure hypercholesterolemia Restless legs Secondary pulmonary arterial hypertension Sick sinus syndrome Spinal stenosis of lumbar region Stage 3a chronic kidney disease (CKD) Stroke Symptomatic bradycardia TIA (transient ischemic attack) Tobacco use disorder Wears dentures Wears glasses Home Medications albuterol sulfate 90 mcg/actuation breath activated powder inhaler 2 puff inhalation Q4H PRN Shortness Of Breath 09/25/15 [History Last Taken 08/23/22] cholecalciferol (vitamin D3) 25 mcg (1,000 unit) tablet 1,000 unit PO DAILY SUPPLEMENT 09/25/15 [History Last Taken 08/24/22] folic acid 1 mg tablet 1 mg PO QHS SUPPLEMENT 06/24/16 [History Last Taken 08/23/22] tiotropium 2.5 mcg-olodaterol 2.5 mcg/actuation mist for inhalation (Stiolto Respimat) 1 puff inhalation BID ASTHMA 06/18/21 [History Last Taken 08/24/22] ipratropium 0.5 mg-albuterol 3 mg (2.5 mg base)/3 mL nebulization soln 3 ml inhalation 4X/DAY SHORTNESS OF BREATH 11/25/21 [History Last Taken 04/06/22] nitroglycerin 0.4 mg sublingual tablet 0.4 mg sublingual Q5M PRN Chest Pain #25 tabs 09/17/22 [Rx Last Taken Unknown] rosuvastatin 40 mg tablet (Crestor) 40 mg PO DAILY cholesterol 03/29/23 [History Last Taken Unknown] furosemide 20 mg tablet 20 mg PO DAILY dose has been decreased. water pill #90 tabs 04/25/23 [Rx Last Taken Unknown] potassium chloride 10 mEq tablet,extended release 10 meq PO DAILY supplement #30 tabs 04/25/23 [Rx Last Taken Unknown] amiodarone 200 mg tablet 200 mg PO DAILY afib #90 tabs 04/28/23 [Rx Last Taken Unknown] empagliflozin 10 mg tablet (Jardiance) 10 mg PO DAILY heart health #90 tabs 04/28/23 [Rx Last Taken Unknown] lactulose 10 gram/15 mL (15 mL) oral solution 20 g (30 mL) PO DAILY see #1,440 mL 08/01/23 [Rx Last Taken Unknown] ferrous sulfate 325 mg (65 mg iron) tablet 325 mg PO QODAY IRON SUPPLEMENT 30 days #0 tabs 09/26/23 [Rx Last Taken Unknown] lactulose 20 gram/30 mL oral solution 20 g (30 mL) PO TID 1 month #2,700 mL 09/26/23 [Rx Last Taken Unknown] metoprolol succinate 50 mg tablet,extended release 24 hr 50 mg PO DAILY 30 days #30 tabs 09/26/23 [Rx Last Taken Unknown] pantoprazole 40 mg tablet,delayed release 40 mg PO BID ACID REFLUX 30 days #60 tabs 09/26/23 [Rx Last Taken Unknown] sennosides 8.6 mg-docusate sodium 50 mg tablet (Stool Softener-Stimulant Laxative) 2 tab PO BID stool softener #0 tabs 09/26/23 [Rx Last Taken Unknown] sucralfate 100 mg/mL oral suspension (Carafate) 1 g (10 mL) PO TID gerd 1 month #900 mL 09/26/23 [Rx Last Taken Unknown] zolpidem 10 mg tablet 5 mg (1/2 x 10 mg) PO QHS sleep 3 days #0 tabs 09/26/23 [Rx Last Taken Unknown] buprenorphine 20 mcg/hour weekly transdermal patch 1 patch transdermal QWEEK 09/27/23 [History Last Taken Unknown] nicotine 7 mg/24 hr daily transdermal patch (Nicoderm CQ) 1 patch transdermal DAILY smoking 09/27/23 [History Last Taken Unknown] warfarin 2 mg tablet See Rx Instructions PO .COMPLEX blood thinner 09/27/23 [History Last Taken Unknown] Allergy/AdvReac Type Severity Reaction Status Date / Time No Known Allergies Allergy Verified 09/26/23 22:26 Family History Son , age 44 from [place] CAD (coronary artery disease) Myocardial infarction Sudden cardiac Brother CAD (coronary artery disease) Pt states all nine of his siblings have heart problems Sister CAD (coronary artery disease) Patient states all nine of his siblings have heart problems Other History of mechanical aortic valve replacement Surgical History Cardiac pacemaker in situ H/O cardiac catheterization H/O prosthetic aortic valve replacement History of coronary artery stent placement (~06/28/11) History of coronary artery stent placement History of esophagogastroduodenoscopy (EGD) (~10/2021) History of left heart catheterization History of lumbar fusion History of mechanical aortic valve replacement (~03/27/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 Hx of CABG Presence of biventricular implantable cardioverter-defibrillator (ICD) S/P CABG x 1 (~03/27/93) Status post cardiac surgery Social History household members: family and none housing: house Smoking Status: Current every day smoker tobacco type: cigarettes and smokeless tobacco alcohol intake: never substance use type: does not use caffeine: No ROS ROS Narrative Review of systems: Constitutional: Patient denies fever or chills. Eyes: Patient denies changes in vision or discharge from eyes. ENT: Patient denies sore throat, runny nose or ear pain. Resp: Patient admits to BRAGG but he denies cough. CV: Patient denies chest pain, palpitations or heart racing. GI: Patient denies abdominal pain, nausea or vomiting. : Patient denies dysuria, hematuria or urinary frequency. MSK: Patient admits to arthralgias and myalgias of both legs. Skin: Patient denies rash. Neuro: Patient admits to severe weakness in his legs causing unsteady gait with paresthesias as per HPI. Hematology: Patient denies easy bleeding or easy bruisability. Allergy: Patient denies lip swelling, tongue swelling or urticaria. Psych: Patient denies uncontrolled depression or anxiety. 14 point ROS otherwise negative except for positives noted above. Vital Signs Vital Signs Vital Signs: 09/26/23 22:20 09/26/23 23:12 09/26/23 23:26 Temperature 98.1 F 97.4 F L Temperature Source Oral Temporal Pulse Rate 60 60 60 Respiratory Rate 18 14 14 Blood Pressure 123/56 H 133/61 H 126/57 H Blood Pressure Mean 78 85 80 Pulse Ox 99 99 99 Oxygen Delivery Method Room Air Room Air Room Air 09/27/23 01:00 09/27/23 01:00 09/26/23 23:28 Temperature 97.9 F 97.9 F Temperature Source Oral Pulse Rate 60 60 60 Respiratory Rate 12 12 13 Blood Pressure 122/57 H 122/57 H Blood Pressure Mean 78 78 Pulse Ox 99 99 99 Oxygen Delivery Method Room Air 09/26/23 23:30 09/26/23 23:40 09/26/23 23:45 Temperature Temperature Source Pulse Rate 60 60 60 Respiratory Rate 11 L 12 12 Blood Pressure 126/57 H 121/54 H Blood Pressure Mean 80 76 Pulse Ox 97 98 Oxygen Delivery Method Room Air Room Air 09/26/23 23:50 09/27/23 00:00 09/27/23 00:10 Temperature Temperature Source Pulse Rate 60 60 60 Respiratory Rate 14 8 L 9 L Blood Pressure 115/58 L Blood Pressure Mean 76 Pulse Ox 98 98 Oxygen Delivery Method 09/27/23 00:15 Temperature Temperature Source Pulse Rate 60 Respiratory Rate 11 L Blood Pressure 127/59 H Blood Pressure Mean 80 Pulse Ox 99 Oxygen Delivery Method Room Air Weight Weight: 129 lb 13.636 oz Body Mass Index (BMI) 18.6 Physical Exam Const alert, oriented x3, no apparent distress and average body habitus General Appearance: cooperative HEENT normocephalic, head/scalp atraumatic, hearing grossly normal bilaterally and moist oral mucous membranes Eyes PERRL and EOMs intact bilaterally Neck no lymphadenopathy and supple Resp normal respiratory effort, no retractions, no use of accessory muscles and clear to auscultation bilaterally Cardio regular rate and regular rhythm GI normal to inspection, nondistended, normoactive bowel sounds, soft to palpation, non-tender and non-distended Extremity normal to inspection and no clubbing, cyanosis or edema Skin Skin Narrative: Patient has no evidence of rash. Neuro oriented x3, CN's II-XII intact bilaterally and moves all extremities Neuro Narrative: Patient can lift his legs off the bed with difficulty with unsteady gait. Sensorium / Orientation: awake, alert, oriented to person, oriented to place and oriented to time Speech: speech normal Psych affect normal Results Medical Records Data Attestation: I reviewed the patient's medical records Lab / Micro Data Attestation: I reviewed the patient's lab results. 09/26/23 22:56 09/26/23 22:56 Labs: Laboratory Results - last 24 hr 09/26/23 22:56: WBC 5.8, RBC 2.77 L, Hgb 8.8 L, Hct 29.7 L, MCV 107.2 H, MCH 31.8, MCHC 29.6 L, RDW Std Deviation 82.3 H, RDW Coeff of [place] 20.7 H, Plt Count 143 L, MPV 11.3, Immature Gran % (Auto) 0.700, Neut % (Auto) 82.4 H, Lymph % (Auto) 6.4 L, [place] % (Auto) 9.3, Eos % (Auto) 0.7, Baso % (Auto) 0.5, Absolute Neuts (auto) 4.8, Absolute Lymphs (auto) 0.37 L, Nucleated RBC % 0, Differential Comment SEE COMMENT, Platelet Estimate ADEQUATE, RBC Morphology N CHROM, Hypochromasia RARE, Anisocytosis 1+, Macrocytosis 1+, Ovalocytes RARE, PT 29.1 H , INR 2.8, Sodium 145, Potassium 4.2, Chloride 112 H, Carbon Dioxide 27.0, Anion Gap 6, BUN 28 H, Creatinine 2.05 H, Estim Creat Clear Calc 21.95, Est GFR (MDRD) Af Amer 40 L, Est GFR (MDRD) Non-Af 33 L, BUN/Creatinine Ratio 13.7, Glucose 144 H, Calcium 8.2 L, Total Bilirubin 0.50, AST 317 H, ALT 223 H, Alkaline Phosphatase 131 H, Total Protein 5.7 L, Albumin 2.9 L, Globulin 2.8, Albumin/Globulin Ratio 1.0 09/26/23 23:24: Urine Color Yellow, Urine Clarity Sl. Cloudy, Urine pH 5.0, Ur Specific [place] 1.015, Urine Protein 100 H, Urine Glucose (UA) 1000 H, Urine Ketones Negative, Urine Occult Blood 250 H, Urine Nitrite Negative, Urine Bilirubin Negative, Urine Urobilinogen Normal, Ur Leukocyte Esterase 25 H, Urine RBC 0 SEEN, Urine WBC 0-5 SEEN, Ur Squamous Epith Cells 0 SEEN, Urine Bacteria 0 SEEN, Hyaline Casts 0-5 SEEN, Fine Granular Casts 5-10 SEEN, Coarse Granular Casts 10-25 SEEN, Urine Mucus 0 SEEN Imaging Radiology Impression Brain CT 09/26/23 22:43 IMPRESSION: Age-related changes of the brain. Electronically Signed: Fredis Stanford DO at 23:18 EDT , Lumbar Spine X-Ray 09/26/23 23:00 IMPRESSION: Degenerative and postsurgical changes of the lumbar spine. Electronically Signed: Fredis Stanford DO at 23:38 EDT , Assessment & Plan Assessment/Plan (1) Bilateral leg numbness: (2) Bilateral leg weakness: (3) Lumbar radiculopathy: (4) Ambulatory dysfunction: PLAN: Plan 1. Generalized Weakness with Ambulatory Dysfunction in the setting of a recent admission here from September 22, 2023 to September 26, 2023 for treatment of an Acute GI Bleed in the setting of chronic JEREMY with EGD done by Dr. 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 Continue PPI and Sucralfate as previous. We will consult PT/OT and Case Management to see this patient on-rounds in the AM to set up possible transition to TCU with help appreciated in advance. 2. Migrating hardware in his lumbar spine with suspected radiculopathy causing numbness and weakness in both of his legs with ambulatory dysfunction in the setting of OA; with history of 4 back surgeries with lumbar fusion (last ~1989) and migrating hardware; on buprenorphine patch complicating #1 - Check CT of L- spine without contrast to re-evaluate hardware from previous lumbar fusion for possible worsening migration. Continue Buprenex patch as previous plus add daily MiraLAX. 3. PAF and history of Mechanical AVR; on Coumadin, CAD; s/p CABG x 1 (1992) and PCI x 2 to mid-LAD (02/2023) in elderly patient with DNR-CCA code status without intubation compounding #1 & #2 - Resume home regimen as previous. Check daily PT/INR. 4. Chronic Systolic CHF; with LVEF ~20-30% (02/2023) with history of SSS; s/p PPM/AICD (replaced 2/2 infection 03/2023) adding to the pathology of #1 - #3 - Continue home regimen as previous. 5. History of tobacco abuse with subsequent asthma/COPD; with chronic respiratory failure - Stable with no evidence of flare. Resume prn nebulizers as previous. 6. Essential hypertension - Continue home medications plus give prn IV Hydralazine for systolic blood pressure > 160 mm Hg. 7. Hyperlipidemia - Continue statin. 8. DM-2; of unknown control - ADA diet. FSBS q. AC/HS plus SSI. Check HgbA1c. 9. CKD; stage III-IV (with baseline creatinine of ~2.25 mg/dL) - Stable. Check daily BMP and avoid potentially nephrotoxic agents. 10. DVT prophylaxis - Patient on Coumadin for #3 which will be continued. Check daily PT/INR. Total time: Approximately 45 minutes. Charges/Coding Visit Charges OBSV E&M: 40864 Observ/hosp same date L1
--- NOTE | 2023-09-27 02:53 | CT_ITS ---
EXAM: CT LUMBAR SPINE WITHOUT INTRAVENOUS CONTRAST CLINICAL INDICATION: Back Pain with Radiculopathy and migrating hardwar TECHNIQUE: Helically acquired images were obtained of the lumbar spine without intravenous contrast. 2D reformats were reviewed. This CT exam was performed using one or more of the following dose reduction techniques: automated exposure control, adjustment of the mA and/or kV according to patient size, and/or use of iterative reconstruction technique. RADIATION DOSE: CTDIvol = 11.51 mGy, DLP = 452.62 mGy-cm COMPARISON: No relevant prior studies available. FINDINGS: VERTEBRAE: The bones are diffusely osteopenic. DISCS/SPINAL CANAL/NEURAL FORAMINA: Posterior spinal fusion with pedicle screws and rods from L4 through S1 that appear intact. The spinal canal at the L4-L5 and L5-S1 levels is difficult to evaluate due to artifact from metal hardware. No definite critical stenosis. VASCULATURE: Visualized abdominal aorta is not dilated. LYMPH NODES: Unremarkable. No retroperitoneal adenopathy. CT/Spine Lumbar without Contrast IMPRESSION: 1. Posterior spinal fusion with pedicle screws and rods from L4 through S1 that appear intact. No signs of loosening of the hardware. 2. The spinal canal at the L4-L5 and L5-S1 levels is difficult to evaluate due to artifact from metal hardware. No gross spinal stenosis. 3. The bones are diffusely osteopenic. No fractures. Electronically Signed: Ezequiel Pederson MD at 5:04 EDT ,
[2023-09-27] MEDS: 0.9% Normal Saline (1000mL) 1,000 ML 30 ML IV (03:38)
[2023-09-27] MEDS: Sucralfate 1 GM Tablet PO ×3 (06:30→17:12)
[2023-09-27] MEDS: Lactulose 20 GM/30 ML UDC PO ×2 (06:30→14:40)
[2023-09-27 06:39] LABS: Absolute Lymphocyte Count 0.38 X10^3/uL (0.83-4.51); Absolute Neutrophil Count 3.2 X10^3/uL (2.0-7.7); Basophil# 0.03 X10^3/uL; Basophil% 0.8 % (0-1); Eosinophil# 0.02 X10^3/uL; Eosinophils% 0.5 % (0-5); Hematocrit 26.6 % (40-54); Lymphocyte # 0.38 X10^3/ul (0.83-4.51); Lymphocyte % 9.5 % (19-41); Mean Corp Hgb Conc 30.1 g/dL (32-36); Mean Corpuscular Hgb 31.7 pg (27.0-32.0); Mean Corpuscular Volume 105.6 fL (80-94); Mean Platelet Vol. 11.4 fl (6.2-12.0); Monocyte# 0.32 X10^3/uL; NRBC Flagged by Analyzer 0 % (0-5); Neutrophil # 3.23 X10^3/uL (2.7-7.7); Neutrophil % 80.9 % (47-70); POSITIVE DIFFERENTIAL YES; POSITIVE MORPHOLOGY YES; Platelet Count 120 K/mm3 (150-450); RBC Distribution Width CV 20.4 % (11.6-14.6); Red Blood Count 2.52 M/mm3 (4.6-6.2)
[2023-09-27 06:43] LABS: Differential Indicated SCAN CRITERIA MET
[2023-09-27 06:44] LABS: Bedside Glucose 98 mg/dL (74-106)
[2023-09-27 08:11] LABS: AST(SGOT) 282 U/L (15-37); Alanine Aminotransfer ALT/SGPT 198 U/L (16-61); Albumin, Serum 2.6 g/dL (3.2-5.0); Alkaline Phosphatase 116 U/L (45-117); Anion Gap 3 (5-15); BUN 28 mg/dL (7-18); BUN/Creat Ratio 15.5 RATIO (10-20); Calcium,Total 7.9 mg/dL (8.5-10.1); Chloride 115 mmol/L (98-107); Creatinine, Serum 1.81 mg/dL (0.70-1.30); EST Glomerular Filtration Rate 38 mL/min (>60); Est Glom Filt Rate - Afr Amer 46 mL/min (>60); Estimated Creatinine Clearance 24.06 ml/min; Globulin 2.5 g/dL (2.2-4.2); Glucose 89 mg/dL (74-106); Magnesium 2.6 mg/dL (1.6-2.6); Phosphorus 2.5 mg/dL (2.5-4.9); Protein, Total 5.1 g/dL (6.4-8.2); Sodium Level 146 mmol/L (136-145); Thyroid Stim Hormone (TSH) 2.14 uIU/mL (0.358-3.74)
[2023-09-27 08:25] LABS: Anisocytosis 2+
[2023-09-27] MEDS: Cholecalciferol (VIT D3) 25 MCG TABLET (1,000 UNITS) PO (09:59)
[2023-09-27] MEDS: Pantoprazole Sodium 40 MG Tablet PO ×2 (09:59→21:12)
[2023-09-27] MEDS: Amiodarone 200 MG Tablet PO (09:59)
[2023-09-27] MEDS: Potassium Chloride Oral Tablet 10 MEQ PO (09:59)
[2023-09-27] MEDS: Senna/Docusate Sodium 1 Tablet 2 TABLET PO (09:59)
--- NOTE | 2023-09-27 11:52 | PN_ITS ---
Subjective Subjective Patient seen and examined. He was discharged home just one day prior to this admission after being managed for GI bleed. He went home but was too weak to get up into his house, so was brought back on account of debility and weakness. He complained of some numbness and tingling in his LLE. He had no other complaints nad review of systems was otherwise negative. Objective Data Objective Data Vital Signs: Vital Signs Temp Pulse Resp BP Pulse Ox O2 Del Method O2 Flow Rate 98.1 F 60 14 111/53 L 97 Nasal Cannula 2 09/27/23 07:55 09/27/23 07:55 09/27/23 07:55 09/27/23 07:55 09/27/23 07:55 09/27/23 08:19 09/27/23 08:19 Oxygen Flow Rate (L/min) 2 Oxygen Delivery Method Nasal Cannula Weight: 125 lb 10.616 oz Body Mass Index (BMI) 17.9 Intake & Output: Intake and Output for Last 24 Hours 09/25/23 09/26/23 09/27/23 23:59 23:59 23:59 Intake Total 360 / 360 Output Total 100 / 100 100 / 100 Balance -100 / -100 260 / 260 Lab / Micro Data 09/27/23 05:29 09/27/23 05:29 Labs: Laboratory Results - last 24 hr 09/26/23 22:56: WBC 5.8, RBC 2.77 L, Hgb 8.8 L, Hct 29.7 L, MCV 107.2 H, MCH 31.8, MCHC 29.6 L, RDW Std Deviation 82.3 H, RDW Coeff of Kalyan 20.7 H, Plt Count 143 L, MPV 11.3, Immature Gran % (Auto) 0.700, Neut % (Auto) 82.4 H, Lymph % (Auto) 6.4 L, Nolan % (Auto) 9.3, Eos % (Auto) 0.7, Baso % (Auto) 0.5, Absolute Neuts (auto) 4.8, Absolute Lymphs (auto) 0.37 L, Nucleated RBC % 0, Differential Comment SEE COMMENT, Platelet Estimate ADEQUATE, RBC Morphology N CHROM, Hypochromasia RARE, Anisocytosis 1+, Macrocytosis 1+, Ovalocytes RARE, PT 29.1 H , INR 2.8, Sodium 145, Potassium 4.2, Chloride 112 H, Carbon Dioxide 27.0, Anion Gap 6, BUN 28 H, Creatinine 2.05 H, Estim Creat Clear Calc 21.95, Est GFR (MDRD) Af Amer 40 L, Est GFR (MDRD) Non-Af 33 L, BUN/Creatinine Ratio 13.7, Glucose 144 H, Calcium 8.2 L, Total Bilirubin 0.50, AST 317 H, ALT 223 H, Alkaline Phosphatase 131 H, Total Protein 5.7 L, Albumin 2.9 L, Globulin 2.8, Albumin/Globulin Ratio 1.0 09/26/23 23:24: Urine Color Yellow, Urine Clarity Sl. Cloudy, Urine pH 5.0, Ur Specific Vanderbilt 1.015, Urine Protein 100 H, Urine Glucose (UA) 1000 H, Urine Ketones Negative, Urine Occult Blood 250 H, Urine Nitrite Negative, Urine Bilirubin Negative, Urine Urobilinogen Normal, Ur Leukocyte Esterase 25 H, Urine RBC 0 SEEN, Urine WBC 0-5 SEEN, Ur Squamous Epith Cells 0 SEEN, Urine Bacteria 0 SEEN, Hyaline Casts 0-5 SEEN, Fine Granular Casts 5-10 SEEN, Coarse Granular Casts 10-25 SEEN, Urine Mucus 0 SEEN 09/27/23 05:29: WBC 4.0 L, RBC 2.52 L, Hgb 8.0 L, Hct 26.6 L, MCV 105.6 H, MCH 31.7, MCHC 30.1 L, RDW Std Deviation 80.0 H, RDW Coeff of Kalyan 20.4 H, Plt Count 120 L, MPV 11.4, Immature Gran % (Auto) 0.300, Neut % (Auto) 80.9 H, Lymph % (Auto) 9.5 L, Nolan % (Auto) 8.0, Eos % (Auto) 0.5, Baso % (Auto) 0.8, Absolute Neuts (auto) 3.2, Absolute Lymphs (auto) 0.38 L, Nucleated RBC % 0, Differential Comment COMMENT, Anisocytosis 2+, Sodium 146 H, Potassium 4.0, Chloride 115 H, Carbon Dioxide 28.0, Anion Gap 3 L, BUN 28 H, Creatinine 1.81 H, Estim Creat Clear Calc 24.06, Est GFR (MDRD) Af Amer 46 L, Est GFR (MDRD) Non-Af 38 L, BUN/Creatinine Ratio 15.5, Glucose 89, Calcium 7.9 L, Phosphorus 2.5, Magnesium 2.6, Total Bilirubin 0.40, AST 282 H, ALT 198 H, Alkaline Phosphatase 116, Total Protein 5.1 L, Albumin 2.6 L, Globulin 2.5, Albumin/Globulin Ratio 1.0, TSH 2.14 09/27/23 06:26: POC Glucose 98 Radiography Diagnostic Testing: Radiology Impression Brain CT 09/26/23 22:43 IMPRESSION: Age-related changes of the brain. Electronically Signed: Fredis Stanford DO at 23:18 EDT , Lumbar Spine X-Ray 09/26/23 23:00 IMPRESSION: Degenerative and postsurgical changes of the lumbar spine. Electronically Signed: Fredis Stanford DO at 23:38 EDT , Lumbar Spine CT 09/27/23 02:53 IMPRESSION: 1. Posterior spinal fusion with pedicle screws and rods from L4 through S1 that appear intact. No signs of loosening of the hardware. 2. The spinal canal at the L4-L5 and L5-S1 levels is difficult to evaluate due to artifact from metal hardware. No gross spinal stenosis. 3. The bones are diffusely osteopenic. No fractures. Electronically Signed: Ezequiel Pederson MD at 5:04 EDT , Physical Exam Const alert, oriented x3 and no apparent distress Constitutional Narrative: frail General Appearance: cooperative HEENT normocephalic, head/scalp atraumatic, moist oral mucous membranes and oropharynx normal Eyes PERRL and EOMs intact bilaterally Neck no lymphadenopathy and supple Lymph Lymphatic: no lymphadenopathy noted and no lymphedema noted Resp Resp Narrative: mildly diminished breath sounds bibasally, no wheezes or crackles. Cardio regular rate, regular rhythm, S1 normal heart sound, S2 normal heart sound and no murmurs GI normal to inspection, nondistended, normoactive bowel sounds, soft to palpation, non-tender and non-distended Extremity normal capillary refill, no clubbing, cyanosis or edema and no calf tenderness General Extremity: no tenderness to palpation of joints or extremities Skin General Skin Exam: no breakdown and turgor normal Neuro CN's II-XII intact bilaterally, no focal motor deficits, no sensory deficits noted and deep tendon reflexes 2+ bilaterally Motor Exam: strength 5/5 throughout and general weakness Psych thought process normal, cooperative and affect normal Appearance: appropriate Assessment & Plan Assessment/Plan (1) Bilateral leg numbness: (2) Lumbar radiculopathy: PLAN: Plan #Debility and weakness due to probable radiculopathy * Was just discharged today before admission after being treated for acute GI bleed. * On return home was unable to ambulate. He does have a history of 4 back surgeries with intermittent hardware after lumbar fusion. * PT OT on board. Fall precautions. On buprenorphine patch. Patient will likely need to placement states her weakness and inability to perform activities of daily living. He is amenable to this. * #Paroxysmal A-fib in the setting of mechanical aortic valve replacement: On Coumadin. Monitor INR. INR was therapeutic on admission at 2.8. #CAD s/p CABG and stents: On statin. Not on aspirin or statin: Likely due to history of GI bleed #History of recent GI bleed. * Was discharged with the day before admission. * On pantoprazole 40 mg twice daily. * Had EGD which showed abnormal esophageal motility suspicious for esophageal spasm and a moderate Schatzki ring which was dilated. * Esophagus was injected with botulinum. #Heart failure with reduced ejection fraction: Has known EF of 20 to 30%. Has a pacemaker in place. On Lasix. Not in exacerbation #Benign essential hypertension: IV hydralazine as needed. #Pancytopenia: This is chronic. Hemoglobin is 8. Will continue to monitor WBC, platelets and hemoglobin. #CKD stage IIIa: Creatinine is 1.81 which is lower than his baseline. Will continue to monitor. # Hyperlipidemia: On statin #History of A-fib: On amiodarone. On Coumadin. Monitor INR. #DVT prophylaxis: On Coumadin. Monitor INR. Charges/Coding Visit Charges Inpatient E&M: 75555 Subs Hosp L2
[2023-09-27] MEDS: Ipratropium/Albuterol Sulfate 3 ML AMPUL.NEB INHALATION ×2 (13:35→19:36)
--- NOTE | 2023-09-27 15:30 | CASEMGMT ---
SURY MUNOZ into pt room, pt dtr present. Pt states he got home yesterday and had a hard time getting into the house although he has a ramp. He states then he began with numbness and tingling in the LE's. Pt was to have HHC from [facility] come out to the home tomorrow. TC to HHC to [facility], she is aware pt is hospitalized. Pt states he has portable oxygen to bring in at dc. Pt would like to go home again with HHC from [facility]. Pt dtr then states they are awaiting results of testing and spoke to pt about staying in the hospital for rehab. Discussed possible s/t therapy with pt. He states he cannot make a decision until his testing results are given to him. SURY MUNOZ to follow.
[2023-09-27 18:46] LABS: International Normalized Ratio 2.4
[2023-09-27] MEDS: Atorvastatin Calcium 80 MG Tablet PO (21:12)
[2023-09-27] MEDS: Folic Acid 1 MG Tablet PO (21:12)
--- NOTE | 2023-09-27 21:25 | NURSING ---
This nurse witness Mari Rn waste 20mcq butran patch into waste disposal.
--- NOTE | 2023-09-27 21:25 | NURSING ---
pt had a 15mch bup patch on his left shoulder and a 20mcg bup patch on his rt shoulder. pt states the 20mcg patch should have been removed when the other patch was placed, his dose was decreased. 20mcg patch removed and wasted with SURY Briones charge
[2023-09-27] MEDS: Zolpidem Tartrate 5 MG Tablet PO (22:30)
[2023-09-27] MEDS: Menthol/Lanolin/Calamine/Znox 113 GM Tube 1 APPLIC TOPICAL (22:47)
[2023-09-27] MEDS: BACITRACIN 15 GM Tube 1 APPLIC TOPICAL (22:48)
[2023-09-28] VITALS (10 sets, daily range): BP systolic 93–118; BP diastolic 43–60; PULSE 59–77; RESP 14–20; TEMP 36.3–36.7; O2SAT 92–100; BMI 18.0
[2023-09-28] MEDS: Sucralfate 1 GM Tablet PO ×3 (05:59→16:16)
[2023-09-28 07:36] LABS: Absolute Lymphocyte Count 0.41 X10^3/uL (0.83-4.51); Absolute Neutrophil Count 4.3 X10^3/uL (2.0-7.7); Basophil# 0.02 X10^3/uL; Basophil% 0.4 % (0-1); Eosinophil# 0.06 X10^3/uL; Eosinophils% 1.2 % (0-5); Hematocrit 28.4 % (40-54); Hemoglobin 8.3 g/dL (13.0-16.5); Lymphocyte # 0.41 X10^3/ul (0.83-4.51); Mean Corp Hgb Conc 29.2 g/dL (32-36); Mean Corpuscular Hgb 31.3 pg (27.0-32.0); Mean Corpuscular Volume 107.2 fL (80-94); Mean Platelet Vol. 11.3 fl (6.2-12.0); Monocyte# 0.35 X10^3/uL; Monocyte% 6.8 % (0-10); NRBC Flagged by Analyzer 0 % (0-5); Neutrophil # 4.26 X10^3/uL (2.7-7.7); POSITIVE DIFFERENTIAL YES; POSITIVE MORPHOLOGY YES; Platelet Count 130 K/mm3 (150-450); RBC Distribution Width CV 19.9 % (11.6-14.6); RBC Distribution Width SD 78.2 fl (35.1-43.9); Red Blood Count 2.65 M/mm3 (4.6-6.2); White Blood Count 5.1 K/mm3 (4.4-11.0)
[2023-09-28 07:42] LABS: Differential Indicated SCAN CRITERIA MET
[2023-09-28] MEDS: BACITRACIN 15 GM Tube 1 APPLIC TOPICAL ×2 (08:11→20:27)
[2023-09-28] MEDS: Ferrous Sulfate 325 MG Tablet PO (08:11)
[2023-09-28] MEDS: Menthol/Lanolin/Calamine/Znox 113 GM Tube 1 APPLIC TOPICAL ×2 (08:12→20:28)
[2023-09-28] MEDS: Amiodarone 200 MG Tablet PO (08:13)
[2023-09-28] MEDS: Potassium Chloride Oral Tablet 10 MEQ PO (08:14)
[2023-09-28] MEDS: Pantoprazole Sodium 40 MG Tablet PO ×2 (08:17→20:29)
[2023-09-28] MEDS: Cholecalciferol (VIT D3) 25 MCG TABLET (1,000 UNITS) PO (08:18)
[2023-09-28 08:19] LABS: Anion Gap 4 (5-15); BUN 24 mg/dL (7-18); BUN/Creat Ratio 13.6 RATIO (10-20); Calcium,Total 8.2 mg/dL (8.5-10.1); Chloride 114 mmol/L (98-107); Creatinine, Serum 1.76 mg/dL (0.70-1.30); EST Glomerular Filtration Rate 39 mL/min (>60); Est Glom Filt Rate - Afr Amer 48 mL/min (>60); Estimated Creatinine Clearance 24.78 ml/min; Glucose 109 mg/dL (74-106); Potassium 4.1 mmol/L (3.5-5.1); Sodium Level 145 mmol/L (136-145)
[2023-09-28 08:25] LABS: Anisocytosis 2+
[2023-09-28 08:26] LABS: Hypochromasia 1+
[2023-09-28 09:30] LABS: Prothrombin Time (Protime)PT. 31.2 SECONDS (11.7-14.9)
--- NOTE | 2023-09-28 09:47 | CASEMGMT ---
Discharge Planning A list of?SNF providers including quality and resource use data and consistent with the patient's preferred geographic region, medical needs, and insurance network was created in [facility] Guide.? This list was provided to the SW. Maria Recinos Discharge Planning Asst.
--- NOTE | 2023-09-28 09:56 | CASEMGMT ---
Met with?patient to complete WALKER form. WALKER form explained to?patient who voiced understanding and signed form. Original form placed in pt?s chart and copy provided to?patient. Maria Recinos, Discharge Planning Asst
--- NOTE | 2023-09-28 10:26 | CASEMGMT ---
Addendum entered by Alessandra Harris 09/28/23 14:14: Social Work Pt has been accepted to the TCU and precert has been obtained. SW met with pt and updated and pt is agreeable with dc plan. With pt permission, phone call to pt's dgt Emily and updated on discharge plan. Emily is agreeable. Physician updated. Plan: TCU, when medically ready DRISS Ford Original Note: Social Work SW met with pt and introduced self and role of SW. SW reviewed with pt his currently living situation (pt lives alone). SW discussed short term SNF with pt for rehabilitation prior to returning home. Functional limitations as exhibited with therapy were discussed. A list of SNF providers including quality and resource use data and consistent with the patient?s preferred geographic region, medical needs, and insurance network were provided from the [employer] Guide. Pt preferred provider is [facility]. Referral sent to TCU. SW will await determination on acceptance. Plan: TCU, pending acceptance and precert DRISS Ford
[2023-09-28] MEDS: Ensure Plus High Protein 120 ML LIQUID PO ×2 (10:27→20:29)
--- NOTE | 2023-09-28 10:28 | PN_ITS ---
Subjective Subjective Patient seen and examined. He was eating breakfast. He still complaining of some numbness in his lower extremities. Per charge nurse, he was noted to have 2 buprenorphine patches on yesterday so 1 was removed. His pain is well- controlled. Review of systems otherwise negative. Objective Data Objective Data Vital Signs: Vital Signs Temp Pulse Resp BP Pulse Ox O2 Del Method O2 Flow Rate 97.4 F L 60 16 118/60 97 Nasal Cannula 2 09/28/23 07:37 09/28/23 07:37 09/28/23 07:37 09/28/23 07:37 09/28/23 09:30 09/28/23 08:41 09/28/23 09:30 Oxygen Flow Rate (L/min) 2 Oxygen Delivery Method Nasal Cannula Weight: 125 lb 14.143 oz Body Mass Index (BMI) 18.0 Intake & Output: Intake and Output for Last 24 Hours 09/26/23 09/27/23 09/28/23 23:59 23:59 23:59 Intake Total 1089 / 1089 Output Total 100 / 100 830 / 830 200 / 200 Balance -100 / -100 259 / 259 -200 / -200 Lab / Micro Data 09/28/23 06:45 09/28/23 06:45 Labs: Laboratory Results - last 24 hr 09/27/23 17:29: PT 26.0 H, INR 2.4 09/28/23 06:45: WBC 5.1, RBC 2.65 L, Hgb 8.3 L, Hct 28.4 L, MCV 107.2 H, MCH 31.3, MCHC 29.2 L, RDW Std Deviation 78.2 H, RDW Coeff of Kalyan 19.9 H, Plt Count 130 L, MPV 11.3, Immature Gran % (Auto) 0.600, Neut % (Auto) 83.0 H, Lymph % (Auto) 8.0 L, Runnels % (Auto) 6.8, Eos % (Auto) 1.2, Baso % (Auto) 0.4, Absolute Neuts (auto) 4.3, Absolute Lymphs (auto) 0.41 L, Nucleated RBC % 0, Hypochromasia 1+, Anisocytosis 2+, Sodium 145, Potassium 4.1, Chloride 114 H, Carbon Dioxide 27.0, Anion Gap 4 L, BUN 24 H, Creatinine 1.76 H, Estim Creat Clear Calc 24.78, Est GFR (MDRD) Af Amer 48 L, Est GFR (MDRD) Non-Af 39 L, BUN/Creatinine Ratio 13.6, Glucose 109 H, Calcium 8.2 L 09/28/23 08:03: PT 31.2 H, INR 3.0 Physical Exam Const alert, oriented x3, no apparent distress and average body habitus Constitutional Narrative: frail General Appearance: cooperative HEENT normocephalic, head/scalp atraumatic, hearing grossly normal bilaterally, moist oral mucous membranes and oropharynx normal Eyes PERRL and EOMs intact bilaterally Neck no lymphadenopathy and supple Lymph Lymphatic: no lymphadenopathy noted and no lymphedema noted Resp normal respiratory effort, no retractions, no use of accessory muscles and clear to auscultation bilaterally Resp Narrative: mildly diminished breath sounds bibasally, no wheezes or crackles. Cardio regular rate, regular rhythm, S1 normal heart sound, S2 normal heart sound and no murmurs GI normal to inspection, nondistended, normoactive bowel sounds, soft to palpation, non-tender and non-distended Extremity normal to inspection, normal capillary refill, no clubbing, cyanosis or edema and no calf tenderness General Extremity: no tenderness to palpation of joints or extremities Skin General Skin Exam: no breakdown and turgor normal Neuro oriented x3, CN's II-XII intact bilaterally, moves all extremities, no focal motor deficits, no sensory deficits noted and deep tendon reflexes 2+ bilaterally Sensorium / Orientation: awake and alert Speech: speech normal Motor Exam: strength 5/5 throughout and general weakness Psych thought process normal, cooperative and affect normal Appearance: appropriate Assessment & Plan Assessment/Plan (1) Bilateral leg numbness: (2) Lumbar radiculopathy: PLAN: Plan #Debility and weakness due to probable radiculopathy * Was just discharged the day before admission after being treated for acute GI bleed. * On return home was unable to ambulate. He does have a history of 4 back surgeries with intermittent hardware after lumbar fusion. * PT OT on board. Fall precautions. On buprenorphine patch. Patient will l ikely need to placement states her weakness and inability to perform activities of daily living. He is amenable to this. * CT of the lumbar spine showed posterior spinal fusion with pedicle screws and rods from L4 through S1 that appear intact, with no signs of loosening of the hardware. * #Paroxysmal A-fib in the setting of mechanical aortic valve replacement: On Coumadin. Monitor INR. INR is 3 today. #CAD s/p CABG and stents: On statin. Not on aspirin or statin: Likely due to history of GI bleed #History of recent GI bleed. * On pantoprazole 40 mg twice daily. * Had EGD which showed abnormal esophageal motility suspicious for esophageal spasm and a moderate Schatzki ring which was dilated. * Esophagus was injected with botulinum. #Heart failure with reduced ejection fraction: Has known EF of 20 to 30%. Has a pacemaker in place. On Lasix. Not in exacerbation #Benign essential hypertension: IV hydralazine as needed. #Pancytopenia: This is chronic. Hemoglobin is 8.3. Will continue to monitor WBC, platelets and hemoglobin. #CKD stage IIIa: Creatinine is 1.81 which is lower than his baseline. Will continue to monitor. # Hyperlipidemia: On statin #History of A-fib: On amiodarone. On Coumadin. Monitor INR. #DVT prophylaxis: On Coumadin. Monitor INR. Disposition: will benefit from short term placement. PT/OT on board. Fall precautions Charges/Coding Visit Charges Inpatient E&M: 84519 Subs Hosp L2
[2023-09-28] MEDS: Ipratropium/Albuterol Sulfate 3 ML AMPUL.NEB INHALATION ×2 (13:08→19:42)
[2023-09-28] MEDS: Jantoven 2 MG Tablet PO (16:16)
--- NOTE | 2023-09-28 16:18 | NURSING ---
All documentation by Larisa FONG reviewed by [employer] office instructor, Radha Watson RN
[2023-09-28] MEDS: Atorvastatin Calcium 80 MG Tablet PO (20:29)
[2023-09-28] MEDS: Folic Acid 1 MG Tablet PO (20:29)
[2023-09-28] MEDS: Zolpidem Tartrate 5 MG Tablet PO (22:07)
[2023-09-29] VITALS (7 sets, daily range): BP systolic 95–116; BP diastolic 47–55; PULSE 60–87; RESP 16–18; TEMP 36.5–36.8; O2SAT 93–100; BMI 19.3
[2023-09-29] MEDS: Sucralfate 1 GM Tablet PO ×3 (06:01→16:33)
[2023-09-29] MEDS: Ipratropium/Albuterol Sulfate 3 ML AMPUL.NEB INHALATION ×2 (07:31→13:50)
[2023-09-29 08:18] LABS: Absolute Lymphocyte Count 0.47 X10^3/uL (0.83-4.51); Basophil# 0.02 X10^3/uL; Basophil% 0.4 % (0-1); Eosinophil# 0.05 X10^3/uL; Hematocrit 27.7 % (40-54); Hemoglobin 8.1 g/dL (13.0-16.5); Lymphocyte # 0.47 X10^3/ul (0.83-4.51); Lymphocyte % 9.6 % (19-41); Mean Corp Hgb Conc 29.2 g/dL (32-36); Mean Corpuscular Hgb 31.2 pg (27.0-32.0); Mean Corpuscular Volume 106.5 fL (80-94); Mean Platelet Vol. 11.6 fl (6.2-12.0); Monocyte# 0.34 X10^3/uL; Monocyte% 6.9 % (0-10); NRBC Flagged by Analyzer 0 % (0-5); Neutrophil % 81.5 % (47-70); POSITIVE DIFFERENTIAL YES; POSITIVE MORPHOLOGY YES; Platelet Count 139 K/mm3 (150-450); RBC Distribution Width CV 19.4 % (11.6-14.6); RBC Distribution Width SD 75.8 fl (35.1-43.9); White Blood Count 4.9 K/mm3 (4.4-11.0)
[2023-09-29 08:22] LABS: Differential Indicated SCAN CRITERIA MET
[2023-09-29 08:52] LABS: International Normalized Ratio 3.3; Prothrombin Time (Protime)PT. 33.2 SECONDS (11.7-14.9)
[2023-09-29 08:55] LABS: Anion Gap 6 (5-15); BUN 27 mg/dL (7-18); BUN/Creat Ratio 17.9 RATIO (10-20); Calcium,Total 8.2 mg/dL (8.5-10.1); Chloride 114 mmol/L (98-107); Creatinine, Serum 1.51 mg/dL (0.70-1.30); EST Glomerular Filtration Rate 47 mL/min (>60); Est Glom Filt Rate - Afr Amer 57 mL/min (>60); Estimated Creatinine Clearance 31.01 ml/min; Glucose 102 mg/dL (74-106); Potassium 4.1 mmol/L (3.5-5.1); Sodium Level 145 mmol/L (136-145)
[2023-09-29] MEDS: BACITRACIN 15 GM Tube 1 APPLIC TOPICAL (09:13)
[2023-09-29] MEDS: Amiodarone 200 MG Tablet PO (09:14)
[2023-09-29] MEDS: Menthol/Lanolin/Calamine/Znox 113 GM Tube 1 APPLIC TOPICAL (09:14)
[2023-09-29] MEDS: Potassium Chloride Oral Tablet 10 MEQ PO (09:15)
[2023-09-29] MEDS: Pantoprazole Sodium 40 MG Tablet PO (09:17)
[2023-09-29] MEDS: Cholecalciferol (VIT D3) 25 MCG TABLET (1,000 UNITS) PO (09:17)
[2023-09-29] MEDS: 0.9% Normal Saline (1000mL) 1,000 ML 999 ML IV (10:45)
--- NOTE | 2023-09-29 14:41 | DS.PCM_ITS ---
Providers Date of Admission: 09/27/23 Date of Discharge: 09/29/23 Primary Care Physician: Dr. Guillermo Pritchard MD Reason For Visit: BACK PAIN WITH LE NUMBNESS AND TINGLING Diagnosis Discharge Diagnosis (1) Bilateral leg numbness: Status: Acute Code(s): R20.0 - Anesthesia of skin (2) Lumbar radiculopathy: Status: Acute Code(s): M54.16 - Radiculopathy, lumbar region Plan #Debility and weakness due to probable radiculopathy * Was just discharged the day before admission after being treated for acute GI bleed. * On return home was unable to ambulate. He does have a history of 4 back surgeries with intermittent hardware after lumbar fusion. * PT OT on board. Fall precautions. On buprenorphine patch. Patient will lik wendy need to placement states her weakness and inability to perform activities of daily living. He is amenable to this. * CT of the lumbar spine showed posterior spinal fusion with pedicle screws and rods from L4 through S1 that appear intact, with no signs of loosening of the hardware. * #Paroxysmal A-fib in the setting of mechanical aortic valve replacement: On Coumadin. Monitor INR. INR is 3 today. #CAD s/p CABG and stents: On statin. Not on aspirin or statin: Likely due to history of GI bleed #History of recent GI bleed. * On pantoprazole 40 mg twice daily. * Had EGD which showed abnormal esophageal motility suspicious for esophageal spasm and a moderate Schatzki ring which was dilated. * Esophagus was injected with botulinum. #Heart failure with reduced ejection fraction: Has known EF of 20 to 30%. Has a pacemaker in place. On Lasix. Not in exacerbation #Benign essential hypertension: IV hydralazine as needed. #Pancytopenia: This is chronic. Hemoglobin is 8.3. Will continue to monitor WBC, platelets and hemoglobin. #CKD stage IIIa: Creatinine is 1.81 which is lower than his baseline. Will continue to monitor. # Hyperlipidemia: On statin #History of A-fib: On amiodarone. On Coumadin. Monitor INR. #DVT prophylaxis: On Coumadin. Monitor INR. Disposition: will benefit from short term placement. PT/OT on board. Fall precautions Medications at Discharge Home Medications albuterol sulfate 90 mcg/actuation breath activated powder inhaler 2 puff inhalation Q4H PRN Shortness Of Breath 09/25/15 cholecalciferol (vitamin D3) 25 mcg (1,000 unit) tablet 1,000 unit PO DAILY SUPPLEMENT 09/25/15 folic acid 1 mg tablet 1 mg PO QHS SUPPLEMENT 06/24/16 tiotropium 2.5 mcg-olodaterol 2.5 mcg/actuation mist for inhalation (Stiolto Respimat) 1 puff inhalation BID ASTHMA 06/18/21 ipratropium 0.5 mg-albuterol 3 mg (2.5 mg base)/3 mL nebulization soln 3 ml inhalation 4X/DAY SHORTNESS OF BREATH 11/25/21 nitroglycerin 0.4 mg sublingual tablet 0.4 mg sublingual Q5M PRN Chest Pain #25 tabs 09/17/22 rosuvastatin 40 mg tablet (Crestor) 40 mg PO DAILY cholesterol 03/29/23 furosemide 20 mg tablet 20 mg PO DAILY dose has been decreased. water pill #90 tabs 04/25/23 potassium chloride 10 mEq tablet,extended release 10 meq PO DAILY supplement #30 tabs 04/25/23 amiodarone 200 mg tablet 200 mg PO DAILY afib #90 tabs 04/28/23 empagliflozin 10 mg tablet (Jardiance) 10 mg PO DAILY heart health #90 tabs 04/28/23 ferrous sulfate 325 mg (65 mg iron) tablet 325 mg PO QODAY IRON SUPPLEMENT 30 days #0 tabs 09/26/23 lactulose 20 gram/30 mL oral solution 20 g (30 mL) PO TID 1 month #2,700 mL 09/26/23 pantoprazole 40 mg tablet,delayed release 40 mg PO BID ACID REFLUX 30 days #60 tabs 09/26/23 sennosides 8.6 mg-docusate sodium 50 mg tablet (Stool Softener-Stimulant Laxative) 2 tab PO BID stool softener #0 tabs 09/26/23 sucralfate 100 mg/mL oral suspension (Carafate) 1 g (10 mL) PO TID gerd 1 month #900 mL 09/26/23 zolpidem 10 mg tablet 5 mg (1/2 x 10 mg) PO QHS sleep 3 days #0 tabs 09/26/23 buprenorphine 20 mcg/hour weekly transdermal patch 1 patch transdermal QWEEK 09/27/23 nicotine 7 mg/24 hr daily transdermal patch (Nicoderm CQ) 1 patch transdermal DAILY smoking 09/27/23 warfarin 2 mg tablet See Rx Instructions PO .COMPLEX blood thinner 09/27/23 Hospital Course Operations None Procedures None Summary of Care Provided Minutes Spent on Discharge: 45 Hospital Course: Patient is an 83-year-old male with a past medical history as outlined was admitted through the ED on 09/27/2023 with complaint of back pain and numbness and tingling both lower extremities. Patient had just been discharged the day before admission after being managed for acute GI bleed and had an EGD which showed abnormal esophageal motility was treated with injection of botulinum toxin as well as dilation of her moderate Schatzki ring. Biopsies were done for possible eosinophilic esophagitis. Patient went home but apparently he was very weak at home and could not ambulate well. He also had severe back pain which was chronic so he was brought back into the ED. She was admitted and managed for debility in the setting of chronic back pain. Patient was too weak to go home and so he and family opted for placement option. Physical therapy was consulted and he did work with physical therapy. He had CT of the lumbar spine which showed posterior spinal fusion with pedicle screws and rods from L4 through to S1 which appeared intact with no loosening of the hardware seen. Of note, patient was noted to be hypotensive during admission. This was asymptomatic. His blood pressure was mainly in the 90s and low 100 systolic. Of note it was also found that patient had on 2 buprenorphine patches when he came on instead of 1 patch. And on side effects of buprenorphine is hypotension so my concern was that hypotension may have been due to the 2 buprenorphine patches that he had on. His metoprolol was discontinued and patient was continued on his amiodarone and Lasix. He was discharged to longterm facility on 09/29/2023. He is to follow-up with his primary care doctor within 1 to 2 weeks. He is to have his blood pressure monitored closely for adjustment of his medications as needed. If his blood pressure improves, which likely will after the buprenorphine is worn off, his metoprolol may be resumed at the discretion of his physicians. Patient seen and examined prior to discharge. He had no active complaint. Review of systems otherwise negative. Labs and vitals reviewed. Home medication reviewed and reconciled.. Physical Exam Const alert, oriented x3, no apparent distress and average body habitus Constitutional Narrative: frail General Appearance: cooperative, comfortable and well kempt HEENT normocephalic, head/scalp atraumatic, hearing grossly normal bilaterally, moist oral mucous membranes and oropharynx normal Mouth: oral and palatal mucosa normal Eyes PERRL and EOMs intact bilaterally Neck no lymphadenopathy and supple Lymph Lymphatic: no lymphadenopathy noted and no lymphedema noted Resp Resp Narrative: mildly diminished breath sounds bibasally, no wheezes or crackles. On room air. Cardio regular rate, regular rhythm, S1 normal heart sound, S2 normal heart sound and no murmurs GI normal to inspection, nondistended, normoactive bowel sounds, soft to palpation, non-tender and non-distended Extremity normal to inspection, normal capillary refill, no clubbing, cyanosis or edema and no calf tenderness General Extremity: no tenderness to palpation of joints or extremities Skin Skin Narrative: General Skin Exam: no breakdown and turgor normal Neuro oriented x3, CN's II-XII intact bilaterally, moves all extremities, no focal motor deficits, no sensory deficits noted and deep tendon reflexes 2+ bilaterally Sensorium / Orientation: awake, alert, oriented to person, oriented to place and oriented to time Speech: speech normal Motor Exam: strength 5/5 throughout and general weakness Psych thought process normal, cooperative and affect normal Appearance: appropriate Weight / BMI Weight Weight: 135 lb 2.294 oz Body Mass Index (BMI) 19.3 ABG / Lab / Microbiology Data 09/29/23 06:36 09/29/23 06:36 Laboratory: Laboratory Results - last 24 hr 09/29/23 06:36: WBC 4.9, RBC 2.60 L, Hgb 8.1 L, Hct 27.7 L, MCV 106.5 H, MCH 31.2, MCHC 29.2 L, RDW Std Deviation 75.8 H, RDW Coeff of Kalyan 19.4 H, Plt Count 139 L, MPV 11.6, Immature Gran % (Auto) 0.600, Neut % (Auto) 81.5 H, Lymph % (Auto) 9.6 L, [place] % (Auto) 6.9, Eos % (Auto) 1.0, Baso % (Auto) 0.4, Absolute Neuts (auto) 4.0, Absolute Lymphs (auto) 0.47 L, Nucleated RBC % 0, PT 33.2 H, INR 3.3, Sodium 145, Potassium 4.1, Chloride 114 H, Carbon Dioxide 25.0, Anion Gap 6, BUN 27 H, Creatinine 1.51 H, Estim Creat Clear Calc 31.01, Est GFR (MDRD) Af Amer 57 L, Est GFR (MDRD) Non-Af 47 L, BUN/Creatinine Ratio 17.9, Glucose 102, Calcium 8.2 L D/C Instructions Discharge Diet: Low fat / Low cholesterol Weight Bearing Status: Weight bearing as tolerated Call your doctor if you observe: Fever of 101 or Higher, Shortness of breath, Dizziness, Swelling in the ankles and Chest pain Meaningful Use Info Meaningful Use Diagnoses (Choose all that apply): None applicable Discharge Plan Admission Admit Date/Time: 09/27/23 02:02 Primary Reason for Your Visit: debility and weakness Attending Provider: Dania Sellers Primary Care Provider: Guillermo Pritchard Consulting Providers: Darrell Kim Instructions Patient Instructions: ED FALL-from [id number] Discharge Orders/Prescriptions Prescriptions: Continued ipratropium-albuterol 0.5 mg-3 mg(2.5 mg base)/3 mL solution for nebulization 3 ml INHALATION 4X/DAY nitroglycerin 0.4 mg tablet, sublingual 0.4 mg SUBLINGUAL Q5M PRN (Reason: Chest Pain) Qty: 25 3RF cholecalciferol (vitamin D3) 1,000 UNIT tablet 1,000 unit PO DAILY albuterol sulfate 90 MCG aerosol powdr breath activated 2 puff INHALATION Q4H PRN (Reason: Shortness Of Breath) Patient Comments: folic acid 1 MG tablet 1 mg PO QHS Stiolto Respimat 2.5-2.5 mcg/actuation Mist 1 puff INHALATION BID rosuvastatin [Crestor] 40 mg tablet 40 mg PO DAILY sennosides-docusate sodium [Stool Softener-Stimulant Laxat] 8.6-50 mg Tablet 2 tab PO BID Qty: 0 0RF Rx Instructions: 2 tablet twice daily. lactulose 20 gram/30 mL Solution 20 g PO TID 30 Days Qty: 2700 2RF Rx Instructions: For constipation. Hold if more than 2 complete BM per day pantoprazole 40 mg tablet,delayed release (DR/EC) 40 mg PO BID 30 Days Qty: 60 2RF ferrous sulfate 325 mg (65 mg iron) tablet 325 mg PO QODAY 30 Days Qty: 0 0RF Patient Comments: iron supplement zolpidem 10 mg tablet 5 mg PO QHS 3 Days Qty: 0 0RF Patient Comments: TAKE 1 TABLET BY MOUTH EVERY DAY sucralfate [Carafate] 100 mg/mL suspension 1 g PO TID 30 Days Qty: 900 2RF Rx Instructions: Please do not take medication 1 hour before or 2 hours after Carafate. warfarin 2 mg tablet See Rx Instructions PO .COMPLEX Protocol: Dose Management Condition: Tuesday Dose/Route: 4 mg Instruction: 2 x 2 mg tablets Condition: Tuesday Dose/Route: 4 mg Instruction: 2 x 2 mg tablets Condition: Tuesday Dose/Route: 4 mg Instruction: 2 x 2 mg tablets Condition: Tuesday Dose/Route: 4 mg Instruction: 2 x 2 mg tablets Condition: Dose/Route: 4 mg Instruction: 2 x 2 mg tablets Condition: Tuesday Dose/Route: 4 mg Instruction: 2 x 2 mg tablets Condition: Tuesday Dose/Route: 4 mg Instruction: 2 x 2 mg tablets Protocol Text: Adjustment Start Date: Tuesday09/26/23 INR Value: 3.2 INR Date: 09/26/23 Recheck Date: 10/03/23 Patient Comments: prescription changed to 4mg daily until INR recheck d/t patient confusion 09/26/2023 Rx Instructions: 5mg orally , , and Tue; takes 2mg on Tue, , Fri, and Sun as directed buprenorphine 20 mcg/hour patch weekly 1 patch transdermal QWEEK Patient Comments: has a patch on now 09/27/2023 nicotine [Nicoderm CQ] 7 mg/24 hr patch 24 hour 1 patch transdermal DAILY potassium chloride 10 mEq tablet extended release 10 meq PO DAILY Qty: 30 11RF furosemide 20 mg tablet 20 mg PO DAILY Qty: 90 3RF amiodarone 200 mg tablet 200 mg PO DAILY Qty: 90 3RF Hold Instructions: not taking Jardiance 10 mg tablet 10 mg PO DAILY Qty: 90 3RF Hold Instructions: Hold for 3 days. Patient Comments: not sure when it should be restarted Discontinued metoprolol succinate 50 mg Tablet Extended Release 24 Hr 50 mg PO DAILY 30 Days Qty: 30 2RF Rx Instructions: Hold for heart less than 50 or systolic blood pressure less than 100 mmHg. Referrals / Follow Up: Guillermo Pritchard MD [Primary Care Provider] - Within 1 Week Disposition Disposition (needs filled in before D/C Order can be placed): [facility] Facility Charges/Coding Visit Charges Inpatient E&M: 64481 Disch Hosp >30min
--- NOTE | 2023-09-29 14:51 | TREXTCAR_ITS ---
Diet Diet Order/Speech Therapy: 09/27/23 02:53 Diet: Consistent Carb - Calorie Controlled Food consistency:: Regular Liquid Consistency:: Regular/Thin Type of Dietary Supplement:: Ensure Plus High Protein How many daily calories?: 2000 calorie Routine Orders/Code Status Enema Type: Fleetz Enema Frequency: Daily PRN Suppository Type: Dulcolax 10mg Suppository Frequency: Daily PRN O2 Frequency: PRN Keep PO Greater than or Equal to (%): 90 Wound(s) rt pinky finger: Wound Type: Laceration Therapies Weight Bearing: Weight bearing as tolerated Physical Therapy: Eval and Treat Occupational Therapy: Eval and Treat Problem/Diagnosis (1) Bilateral leg numbness: Status: Acute Code(s): R20.0 - Anesthesia of skin (2) Lumbar radiculopathy: Status: Acute Code(s): M54.16 - Radiculopathy, lumbar region Plan #Debility and weakness due to probable radiculopathy * Was just discharged the day before admission after being treated for acute GI bleed. * On return home was unable to ambulate. He does have a history of 4 back surgeries with intermittent hardware after lumbar fusion. * PT OT on board. Fall precautions. On buprenorphine patch. Patient will likely need to placement states her weakness and inability to perform activities of daily living. He is amenable to this. * CT of the lumbar spine showed posterior spinal fusion with pedicle screws and rods from L4 through S1 that appear intact, with no signs of loosening of the hardware. * #Paroxysmal A-fib in the setting of mechanical aortic valve replacement: On Coumadin. Monitor INR. INR is 3 today. #CAD s/p CABG and stents: On statin. Not on aspirin or statin: Likely due to history of GI bleed #History of recent GI bleed. * On pantoprazole 40 mg twice daily. * Had EGD which showed abnormal esophageal motility suspicious for esophageal spasm and a moderate Schatzki ring which was dilated. * Esophagus was injected with botulinum. #Heart failure with reduced ejection fraction: Has known EF of 20 to 30%. Has a pacemaker in place. On Lasix. Not in exacerbation #Benign essential hypertension: IV hydralazine as needed. #Pancytopenia: This is chronic. Hemoglobin is 8.3. Will continue to monitor WBC, platelets and hemoglobin. #CKD stage IIIa: Creatinine is 1.81 which is lower than his baseline. Will continue to monitor. # Hyperlipidemia: On statin #History of A-fib: On amiodarone. On Coumadin. Monitor INR. #DVT prophylaxis: On Coumadin. Monitor INR. Disposition: will benefit from short term placement. PT/OT on board. Fall precautions Allergies/Procedures Done in Hospital Allergies No Known Allergies Allergy (Verified 09/26/23 22:26) Procedures: None Type of Care/Length of Stay Estimated LOS: Convalescent Care Less Than 30 days Type of Care Needed: Skilled Rehab Potential: Fair Prognosis: Fair Additional Orders/Day of Discharge Day of Discharge: 09/29/23 Discharge Plan Admission Admit Date/Time: 09/27/23 02:02 Primary Reason for Your Visit: debility and weakness Attending Provider: Dania Sellers Primary Care Provider: Guillermo Pritchard Consulting Providers: Darrell Kim Instructions Patient Instructions: ED FALL-from [id number] Discharge Orders/Prescriptions Prescriptions: Continued ipratropium-albuterol 0.5 mg-3 mg(2.5 mg base)/3 mL solution for nebulization 3 ml INHALATION 4X/DAY nitroglycerin 0.4 mg tablet, sublingual 0.4 mg SUBLINGUAL Q5M PRN (Reason: Chest Pain) Qty: 25 3RF cholecalciferol (vitamin D3) 1,000 UNIT tablet 1,000 unit PO DAILY albuterol sulfate 90 MCG aerosol powdr breath activated 2 puff INHALATION Q4H PRN (Reason: Shortness Of Breath) Patient Comments: folic acid 1 MG tablet 1 mg PO QHS Stiolto Respimat 2.5-2.5 mcg/actuation Mist 1 puff INHALATION BID rosuvastatin [Crestor] 40 mg tablet 40 mg PO DAILY sennosides-docusate sodium [Stool Softener-Stimulant Laxat] 8.6-50 mg Tablet 2 tab PO BID Qty: 0 0RF Rx Instructions: 2 tablet twice daily. lactulose 20 gram/30 mL Solution 20 g PO TID 30 Days Qty: 2700 2RF Rx Instructions: For constipation. Hold if more than 2 complete BM per day pantoprazole 40 mg tablet,delayed release (DR/EC) 40 mg PO BID 30 Days Qty: 60 2RF ferrous sulfate 325 mg (65 mg iron) tablet 325 mg PO QODAY 30 Days Qty: 0 0RF Patient Comments: iron supplement zolpidem 10 mg tablet 5 mg PO QHS 3 Days Qty: 0 0RF Patient Comments: TAKE 1 TABLET BY MOUTH EVERY DAY sucralfate [Carafate] 100 mg/mL suspension 1 g PO TID 30 Days Qty: 900 2RF Rx Instructions: Please do not take medication 1 hour before or 2 hours after Carafate. warfarin 2 mg tablet See Rx Instructions PO .COMPLEX Protocol: Dose Management Condition: Tuesday Dose/Route: 4 mg Instruction: 2 x 2 mg tablets Condition: Tuesday Dose/Route: 4 mg Instruction: 2 x 2 mg tablets Condition: Tuesday Dose/Route: 4 mg Instruction: 2 x 2 mg tablets Condition: Tuesday Dose/Route: 4 mg Instruction: 2 x 2 mg tablets Condition: Dose/Route: 4 mg Instruction: 2 x 2 mg tablets Condition: Tuesday Dose/Route: 4 mg Instruction: 2 x 2 mg tablets Condition: Tuesday Dose/Route: 4 mg Instruction: 2 x 2 mg tablets Protocol Text: Adjustment Start Date: Tuesday09/26/23 INR Value: 3.2 INR Date: 09/26/23 Recheck Date: 10/03/23 Patient Comments: prescription changed to 4mg daily until INR recheck d/t patient confusion 05/2024 Rx Instructions: 5mg orally , , and Tue; takes 2mg on Tue, , Tue, and Sun as directed buprenorphine 20 mcg/hour patch weekly 1 patch transdermal QWEEK Patient Comments: has a patch on now 09/27/2023 nicotine [Nicoderm CQ] 7 mg/24 hr patch 24 hour 1 patch transdermal DAILY potassium chloride 10 mEq tablet extended release 10 meq PO DAILY Qty: 30 11RF furosemide 20 mg tablet 20 mg PO DAILY Qty: 90 3RF amiodarone 200 mg tablet 200 mg PO DAILY Qty: 90 3RF Hold Instructions: not taking Jardiance 10 mg tablet 10 mg PO DAILY Qty: 90 3RF Hold Instructions: Hold for 3 days. Patient Comments: not sure when it should be restarted Discontinued metoprolol succinate 50 mg Tablet Extended Release 24 Hr 50 mg PO DAILY 30 Days Qty: 30 2RF Rx Instructions: Hold for heart less than 50 or systolic blood pressure less than 100 mmHg. Referrals / Follow Up: Guillermo Pritchard MD [Primary Care Provider] - Within 1 Week Disposition Disposition (needs filled in before D/C Order can be placed): [facility] Facility Charges/Coding Visit Charges Inpatient E&M: 91154 Disch Hosp >30min
--- NOTE | 2023-09-29 16:06 | CASEMGMT ---
Social Work Per physician, pt is ready for discharge today to TCU. Discharge orders faxed to TCU. SW met with pt and updated and pt is agreeable with dc plan. Phone call to pt jarek Diaz and notified of dc plan. Dispostion: TCU, skilled level of care [facility]
== END 2023-09-29 17:49 | disposition skilled nursing facility (03) ==
LOC: ED 23:29 → MS3 09-27 02:22
PROVIDERS: Admitting Provider Internal Medicine; Emergency Provider Emergency Medicine; PCP Family Medicine; Visit Provider Student in an Organized Health Care Education/Training Program
DX: M54.16 Radiculopathy, lumbar region (principal); D61.818 Other pancytopenia; J44.9 Chronic obstructive pulmonary disease, unspecified; I13.0 Hypertensive heart and chronic kidney disease with heart failure and stage 1 through stage 4 chronic kidney disease, or unspecified chronic kidney disease; I50.22 Chronic systolic (congestive) heart failure; E11.22 Type 2 diabetes mellitus with diabetic chronic kidney disease; J96.10 Chronic respiratory failure, unspecified whether with hypoxia or hypercapnia; I48.0 Paroxysmal atrial fibrillation; D69.6 Thrombocytopenia, unspecified; N18.31 Chronic kidney disease, stage 3a; K92.2 Gastrointestinal hemorrhage, unspecified; I25.10 Atherosclerotic heart disease of native coronary artery without angina pectoris; Z87.891 Personal history of nicotine dependence; E78.00 Pure hypercholesterolemia, unspecified; Z98.1 Arthrodesis status; D50.0 Iron deficiency anemia secondary to blood loss (chronic); Z79.01 Long term (current) use of anticoagulants; R53.81 Other malaise; I25.5 Ischemic cardiomyopathy; Z95.2 Presence of prosthetic heart valve; Z95.810 Presence of automatic (implantable) cardiac defibrillator; Z66 Do not resuscitate; Z79.899 Other long term (current) drug therapy; F17.220 Nicotine dependence, chewing tobacco, uncomplicated; F17.210 Nicotine dependence, cigarettes, uncomplicated
CPT/HCPCS: 36415; 70450; 72100; 72131; 80048; 80053; 81001; 82962; 83735; 84100; 84443; 85025; 85610; 94640; 96360; 97162; 97166; 97530; 97535; 99221; 99285; 99406; J7030; A4216; G0378

== ENCOUNTER 2023-09-29 18:03 | Inpatient (IN) | payer MEDICARE, SELFPAY ==
[2023-09-29 18:26] VITALS: BP 130/46; PULSE 61; RESP 24; TEMP 36.6; O2SAT 97
[2023-09-29 20:30] VITALS: PULSE 62; RESP 16; O2SAT 96
[2023-09-29] MEDS: Folic Acid 1 MG Tablet PO (21:30)
[2023-09-29] MEDS: Pantoprazole Sodium 40 MG Tablet PO (21:30)
[2023-09-29] MEDS: Senna/Docusate Sodium 1 Tablet 2 TABLET PO (21:30)
[2023-09-29] MEDS: Zolpidem Tartrate 5 MG Tablet PO (21:31)
[2023-09-29] MEDS: Lactulose 20 GM/30 ML UDC PO (21:31)
[2023-09-29] MEDS: Sucralfate 1 GM Tablet PO (21:31)
--- NOTE | 2023-09-29 22:12 | PCM.HP.STD ---
HPI - General General Date of Admission: 09/29/23 Date of Service: 09/30/23 Chief Complaint: Here for rehabilitation. HPI Narrative 09/26/2023 REBECCA ARRIOLA, is a 83 Male who presents to [facility] ED numbness/tingling. Bilateral lower extremity weakness, numbness. Discharged from [facility] this AM for GI bleed, stomach ulcers. Walking with walker, hard time getting into house despite ramp. Bilateral lower extremity numbness from knees down. Unable to lift legs off bed. Hemoglobin 8.8, INR 2.8, Creatinine 2.05. CT brain negative, UA negative, PVR 112mL. X-ray LS spine negative. Etiology of leg weakness unclear. Unable to go home. 09/27/2023 Admit to [facility]. PT/OT for debility. CT Lumbar spine to evaluate migration of hardware, history of lumbar spine surgery. as cause of bilateral lower extremity numbness/weakness. 09/27/2023 Numbness/tingling left lower extremity. PT/OT for placement. Weakness 2/2 lumbar radiculopathy. 09/28/2023 Eating breakfast, numbness bilateral lower extremity. Butrans patch for chronic pain. CT L spine negative for loose hardware. Pantoprazole 40mg bid, Sucralfate 1gm tid for peptic ulcer disease. 09/29/2023 Admit to TCU with debility, here for rehabilitation, strengthening, prior to discharge home with family. [facility] Medical History (Updated 09/29/23 @ 22:[address] Marty Robledo MD) Ambulates with cane Anemia Anemia due to chronic blood loss Anticoagulant long-term use Arthritis Asthma Atherosclerotic heart disease of [place] coronary artery without angina pectoris Atrial fibrillation Back pain due to injury CHF (congestive heart failure) Chronic airway obstruction Chronic anticoagulation Chronic cough Chronic pain Chronic pain syndrome CKD (chronic kidney disease) COPD (chronic obstructive pulmonary disease) COPD (chronic obstructive pulmonary disease) Coronary artery disease Erosion of pacemaker pocket due to and not concurrent with implantation of cardiac pacemaker Essential hypertension Former smoker GERD (gastroesophageal reflux disease) Heart attack HFrEF (heart failure with reduced ejection fraction) High cholesterol History of edema History of GI bleed History of heart attack History of pain when walking History of stress test Hx of fracture of ankle Hx of fracture of ankle Hypertension ICD (implantable cardioverter-defibrillator) in place Injury of back Injury of head and neck Intermittent complete heart block Ischemic cardiomyopathy Kidney disease longterm current use of anticoagulant 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 On home oxygen therapy Osteoporosis Paroxysmal atrial fibrillation Pericardial effusion after operative procedure Persistent atrial fibrillation Pure hypercholesterolemia Restless legs Secondary pulmonary arterial hypertension Sick sinus syndrome Spinal stenosis of lumbar region Stage 3a chronic kidney disease (CKD) Stroke Symptomatic bradycardia TIA (transient ischemic attack) Tobacco use disorder Wears dentures Wears glasses Home Medications albuterol sulfate 90 mcg/actuation breath activated powder inhaler 2 puff inhalation Q4H PRN Shortness Of Breath 09/25/15 [History Last Taken 08/23/22] cholecalciferol (vitamin D3) 25 mcg (1,000 unit) tablet 1,000 unit PO DAILY SUPPLEMENT 09/25/15 [History Last Taken 08/24/22] folic acid 1 mg tablet 1 mg PO QHS SUPPLEMENT 06/24/16 [History Last Taken 08/23/22] tiotropium 2.5 mcg-olodaterol 2.5 mcg/actuation mist for inhalation (Stiolto Respimat) 1 puff inhalation BID ASTHMA 06/18/21 [History Last Taken 08/24/22] ipratropium 0.5 mg-albuterol 3 mg (2.5 mg base)/3 mL nebulization soln 3 ml inhalation 4X/DAY SHORTNESS OF BREATH 11/25/21 [History Last Taken 04/06/22] nitroglycerin 0.4 mg sublingual tablet 0.4 mg sublingual Q5M PRN Chest Pain #25 tabs 09/17/22 [Rx Last Taken Unknown] rosuvastatin 40 mg tablet (Crestor) 40 mg PO DAILY cholesterol 03/29/23 [History Last Taken Unknown] furosemide 20 mg tablet 20 mg PO DAILY dose has been decreased. water pill #90 tabs 04/25/23 [Rx Last Taken Unknown] potassium chloride 10 mEq tablet,extended release 10 meq PO DAILY supplement #30 tabs 04/25/23 [Rx Last Taken Unknown] amiodarone 200 mg tablet 200 mg PO DAILY afib #90 tabs 04/28/23 [Rx Last Taken Unknown] empagliflozin 10 mg tablet (Jardiance) 10 mg PO DAILY heart health #90 tabs 04/28/23 [Rx Last Taken Unknown] ferrous sulfate 325 mg (65 mg iron) tablet 325 mg PO QODAY IRON SUPPLEMENT 30 days #0 tabs 09/26/23 [Rx Last Taken Unknown] lactulose 20 gram/30 mL oral solution 20 g (30 mL) PO TID liver 1 month #2,700 mL 09/26/23 [Rx Last Taken Unknown] pantoprazole 40 mg tablet,delayed release 40 mg PO BID ACID REFLUX 30 days #60 tabs 09/26/23 [Rx Last Taken Unknown] sennosides 8.6 mg-docusate sodium 50 mg tablet (Stool Softener-Stimulant Laxative) 2 tab PO BID stool softener #0 tabs 09/26/23 [Rx Last Taken Unknown] sucralfate 100 mg/mL oral suspension (Carafate) 1 g (10 mL) PO TID gerd 1 month #900 mL 09/26/23 [Rx Last Taken Unknown] zolpidem 10 mg tablet 5 mg (1/2 x 10 mg) PO QHS sleep 3 days #0 tabs 09/26/23 [Rx Last Taken Unknown] buprenorphine 20 mcg/hour weekly transdermal patch 1 patch transdermal QWEEK pain 09/27/23 [History Last Taken Unknown] nicotine 7 mg/24 hr daily transdermal patch (Nicoderm CQ) 1 patch transdermal DAILY smoking 09/27/23 [History Last Taken Unknown] warfarin 2 mg tablet See Rx Instructions PO .COMPLEX blood thinner 09/27/23 [History Last Taken Unknown] Allergy/AdvReac Type Severity Reaction Status Date / Time No Known Allergies Allergy Verified 09/26/23 22:26 Family History Son , age 44 from [place] CAD (coronary artery disease) Myocardial infarction Sudden cardiac Brother CAD (coronary artery disease) Pt states all nine of his siblings have heart problems Sister CAD (coronary artery disease) Patient states all nine of his siblings have heart problems Other History of mechanical aortic valve replacement Surgical History Cardiac pacemaker in situ H/O cardiac catheterization H/O prosthetic aortic valve replacement History of coronary artery stent placement (~06/28/11) History of coronary artery stent placement History of esophagogastroduodenoscopy (EGD) (~10/2021) History of left heart catheterization History of lumbar fusion History of mechanical aortic valve replacement (~03/27/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 Hx of CABG Presence of biventricular implantable cardioverter-defibrillator (ICD) S/P CABG x 1 (~03/27/93) Status post cardiac surgery Social History household members: family and none housing: house Smoking Status: Current every day smoker tobacco type: cigarettes and smokeless tobacco alcohol intake: never substance use type: does not use caffeine: No ROS Constitutional Constitutional: Denies chills, fever(s) or weight gain ENT HEENT: Denies headache(s), nasal congestion or nasal discharge Cardiovascular Cardiovascular: Denies chest pain or palpitations Respiratory/Chest Respiratory/Chest: Denies cough, excessive phlegm production or shortness of breath with exertion Gastrointestinal Gastrointestinal: Denies abdominal pain, nausea or vomiting Genitourinary Genitourinary: Denies dysuria Musculoskeletal Musculoskeletal: Denies joint pain or joint swelling Integumentary Integumentary: Denies rash or wounds Neurologic Neurologic: Reports numbness, tingling and weakness; Denies focal weakness Psychiatric Psychiatric: Denies anxiety, auditory hallucinations, depression, homicidal ideation or suicidal ideation Vital Signs Vital Signs Vital Signs: 09/29/23 18:26 Temperature 97.8 F Temperature Source Temporal Pulse Rate 61 Respiratory Rate 24 H Blood Pressure 130/46 H Blood Pressure Mean 74 Blood Pressure Source Monitor Blood Pressure Position Semi-Fowlers Blood Pressure Location Right Arm Pulse Ox 97 Oxygen Delivery Method Room Air Weight Weight: 63.321 kg Body Mass Index (BMI) 20.0 Physical Exam Const alert General Appearance: cooperative HEENT normocephalic Eyes PERRL and EOMs intact bilaterally Neck supple, no JVD and no carotid bruits Resp normal respiratory effort, normal air movement and clear to auscultation bilaterally Cardio regular rate and regular rhythm GI normal to inspection, nondistended, normoactive bowel sounds, non-tender and non-distended Extremity normal capillary refill General Extremity: Negative for edema Skin no rashes or lesions noted General Skin Exam: no breakdown Psych affect normal Appearance: appropriate Results Lab / Micro Data 09/30/23 05:30 09/30/23 05:30 Assessment & Plan Assessment/Plan (1) Debility: (2) Lumbar radiculopathy: (3) Peptic ulcer disease: (4) Chronic back pain: (5) Atrial fibrillation: (6) Chronic airway obstruction: (7) Hyperlipidemia: (8) Hypokalemia: (9) HFrEF (heart failure with reduced ejection fraction): (10) Iron deficiency anemia: (11) Insomnia: (12) Tobacco abuse: PLAN: Plan 83 year old male recently hospitalized for UGIB, peptic ulcer disease, admitted for leg weakness 2/2 lumbar radiculopathy, transferred to TCU with debility, here for rehabilitation, strengthening prior to discharge home with family. Debility - PT/OT. Pain - Butrans 10mcg 2 patches td qweek. Bowel - senna/colace 2 tablets bid, Lactulose 20gm tid, Dulcolax 10mg pr x 1 prn. Adult immunization - Administer pneumonia vaccine, covid vaccine, flu vaccine as appropriate. DVT prophylaxis - on warfarin. COPD - Anoro 1 puff daily, Albuterol 2 puffs q4 prn. Atrial fibrillation - Amiodarone 200mg daily, warfarin 2mg 4 days/week, 5mg 3 days/week. Hyperlipidemia - Atorvastatin 80mg qhs. Vitamin D deficiency - D3 25mcg daily. HFrEF - Jardiance 10mg daily, Furosemide 20mg daily. Iron deficiency anemia - Hemoglobin 7.5, transfuse 2 units PRBC, check stool guaiac, Ferrex 150mg daily, Vitamin C 500mg daily, consider reconsulting Dr. Muir, consider holding warfarin. Folate deficiency - Folic acid 1mg daily. Tobacco Abuse - Nicotine 7mg td daily. Coronary artery disease - NTG 0.4mg sl q5m prn. PUD - Pantoprazole 40mg bid, Sucralfate 1gm tid. Hypokalemia - KCL 10meq daily. Insomnia - Zolpidem 5mg qhs.
[2023-09-30 06:01] LABS: Absolute Lymphocyte Count 0.38 X10^3/uL (0.83-4.51); Absolute Neutrophil Count 3.1 X10^3/uL (2.0-7.7); Basophil# 0.02 X10^3/uL; Basophil% 0.5 % (0-1); Eosinophil# 0.06 X10^3/uL; Eosinophils% 1.5 % (0-5); Hematocrit 25.1 % (40-54); Hemoglobin 7.5 g/dL (13.0-16.5); Lymphocyte # 0.38 X10^3/ul (0.83-4.51); Lymphocyte % 9.6 % (19-41); Mean Corp Hgb Conc 29.9 g/dL (32-36); Mean Corpuscular Hgb 31.8 pg (27.0-32.0); Mean Corpuscular Volume 106.4 fL (80-94); Mean Platelet Vol. 11.1 fl (6.2-12.0); Monocyte# 0.36 X10^3/uL; Monocyte% 9.1 % (0-10); NRBC Flagged by Analyzer 0 % (0-5); Neutrophil # 3.13 X10^3/uL (2.7-7.7); POSITIVE DIFFERENTIAL YES; POSITIVE MORPHOLOGY YES; Platelet Count 131 K/mm3 (150-450); RBC Distribution Width CV 19.4 % (11.6-14.6); Red Blood Count 2.36 M/mm3 (4.6-6.2)
[2023-09-30] MEDS: Lactulose 20 GM/30 ML UDC PO (06:04)
[2023-09-30] MEDS: Sucralfate 1 GM Tablet PO ×3 (06:04→16:59)
[2023-09-30 06:10] VITALS: PULSE 71; RESP 20; O2SAT 96
[2023-09-30 06:10] LABS: Differential Indicated SCAN CRITERIA MET
[2023-09-30 06:30] LABS: Anion Gap 4 (5-15); BUN 25 mg/dL (7-18); BUN/Creat Ratio 18.8 RATIO (10-20); Calcium,Total 8.3 mg/dL (8.5-10.1); Chloride 116 mmol/L (98-107); Creatinine, Serum 1.33 mg/dL (0.70-1.30); EST Glomerular Filtration Rate 54 mL/min (>60); Est Glom Filt Rate - Afr Amer 66 mL/min (>60); Estimated Creatinine Clearance 36.37 ml/min; Glucose 98 mg/dL (74-106); Potassium 3.9 mmol/L (3.5-5.1); Sodium Level 146 mmol/L (136-145)
[2023-09-30 06:50] LABS: Bedside Glucose 106 mg/dL (74-106)
[2023-09-30 07:03] LABS: Differential Comment SCANNED
[2023-09-30 07:04] LABS: Anisocytosis 2+
[2023-09-30 07:15] VITALS: O2SAT 96
[2023-09-30] MEDS: Amiodarone 200 MG Tablet PO (08:51)
[2023-09-30] MEDS: Potassium Chloride Oral Tablet 10 MEQ PO (08:51)
[2023-09-30] MEDS: Umeclidinium Brm/Vilanterol 62.5-25 mcg Inh 1 PUFF INHALATION (08:51)
[2023-09-30] MEDS: Empagliflozin 10 MG Tablet PO (08:52)
[2023-09-30] MEDS: Atorvastatin Calcium 80 MG Tablet PO (08:52)
[2023-09-30] MEDS: Furosemide 20 MG Tablet PO (08:52)
[2023-09-30] MEDS: Cholecalciferol (VIT D3) 25 MCG TABLET (1,000 UNITS) PO (08:53)
[2023-09-30] MEDS: Pantoprazole Sodium 40 MG Tablet PO ×2 (08:53→22:13)
[2023-09-30] MEDS: Senna/Docusate Sodium 1 Tablet 2 TABLET PO (08:53)
[2023-09-30] MEDS: Iron Polysaccharide Complex 150 MG CAPSULE PO (08:58)
[2023-09-30] MEDS: Ascorbic Acid 500 MG Tablet PO (08:58)
[2023-09-30] MEDS: Tuberculin,Purif.prot.deriv. 50 TU/ML Vial 0.1 ML ID (09:02)
--- NOTE | 2023-09-30 10:08 | PCM.PN.DRR ---
Documented by User: Jayjay Mercedes 09/30/23 10:39 TCU RX Drug Regimen Review Subjective/Objective Subjective/Objective: Subjective: TCU admission note. 83 year old male recently hospitalized for UGIB, peptic ulcer disease, admitted for leg weakness 2/2 lumbar radiculopathy, transferred to TCU with debility, here for rehabilitation, strengthening prior to discharge home with family. Objective: Allergies No Known Allergies Allergy (Verified 09/26/23 22:26) Current Medications Generic Name Dose Route Start Last Admin Trade Name Freq PRN Reason Stop Dose Admin Acetaminophen 1,000 mg 09/30/23 07:57 Acetaminophen 500 Mg Tablet PO Q6H PRN PRN Pain Score 1-10 Albuterol Sulfate 2 puff 09/29/23 18:48 Albuterol Ih (6.7 Gm) 1 Puff Inhaler INHALATION Q4H PRN Shortness Of Breath Amiodarone HCl 200 mg 09/30/23 10:00 09/30/23 08:51 Amiodarone 200 Mg Tablet PO 200 mg DAILY [facility] Administration Ascorbic Acid 500 mg 09/30/23 10:00 09/30/23 08:58 Ascorbic Acid 500 Mg Tablet PO 500 mg DAILY [facility] Administration Atorvastatin Calcium 80 mg 09/30/23 10:00 09/30/23 08:52 Atorvastatin Calcium 80 Mg Tablet PO 80 mg DAILY [facility] Administration Bisacodyl 10 mg 09/29/23 18:42 Bisacodyl 10 Mg Suppository RC DAILY PRN constipation Buprenorphine 2 patch 10/02/23 10:00 Buprenorphine 10 Mcg Patch.Tdwk TD Anand@1000 [facility] Calamine/Phenol 1 applic 09/30/23 10:00 Menthol/Lanolin/Calamine/Znox 113 Gm Tube TOPICAL BID [facility] Protocol Cholecalciferol 25 mcg 09/30/23 10:00 09/30/23 08:53 Cholecalciferol (Vit D3) 25 Mcg Tablet (1,000 Units) PO 25 mcg DAILY [facility] Administration Empagliflozin 10 mg 09/30/23 10:00 09/30/23 08:52 Empagliflozin 10 Mg Tablet PO 10 mg DAILY [facility] Administration Folic Acid 1 mg 09/29/23 22:00 09/29/23 21:30 Folic Acid 1 Mg Tablet PO 1 mg QHS [facility] Administration Furosemide 20 mg 09/30/23 10:00 09/30/23 08:52 Furosemide 20 Mg Tablet PO 20 mg DAILY [facility] Administration Protocol Lactulose 20 gm 09/29/23 22:00 09/30/23 06:04 Lactulose 20 Gm/30 Ml Udc PO 20 gm TID [facility] Administration Nicotine 7 mg 09/30/23 10:00 09/30/23 08:52 Nicotine 7 Mg Patch TD 7 mg DAILY [facility] Administration Nitroglycerin 0.4 mg 09/29/23 18:40 Nitroglycerin (Inpatient Use) 0.4 Mg Tab.Subl SL Q5M PRN Chest Pain Pantoprazole Sodium 40 mg 09/29/23 22:00 09/30/23 08:53 Pantoprazole Sodium 40 Mg Tablet PO 40 mg BID [facility] Administration Polysaccharide Iron Complex 150 mg 09/30/23 10:00 09/30/23 08:58 Iron Polysaccharide Complex 150 Mg Capsule PO 150 mg DAILY [facility] Administration Potassium Chloride 10 meq 09/30/23 08:00 09/30/23 08:51 Potassium Chloride Oral Tablet 10 Meq PO 10 meq DAILYCM [facility] Administration Senna/Docusate Sodium 2 tablet 09/29/23 22:00 09/30/23 08:53 Senna/Docusate Sodium 1 Tablet PO 2 tablet BID [facility] Administration Sucralfate 1 gm 09/29/23 22:00 09/30/23 06:04 Sucralfate 1 Gm Tablet PO 1 gm TID@0700,1100,1600 [facility] Administration Tuberculin PPD 0.1 ml 10/07/23 10:00 Tuberculin,Purif.Prot.Deriv. 50 Tu/Ml Vial ID 10/07/23 10:01 X1 ONE Umeclidinium/Vilanterol 1 puff 09/30/23 10:00 09/30/23 08:51 Umeclidinium Brm/Vilanterol 62.5-25 Mcg Inh INHALATION 1 puff DAILY [facility] Administration Warfarin Sodium 2 mg 09/30/23 17:00 Jantoven 2 Mg Tablet PO SuMoWeFr@1700 [facility] Warfarin Sodium 5 mg 10/01/23 17:00 Warfarin 5 Mg Tablet PO TuThSa@1700 [facility] Zolpidem Tartrate 5 mg 09/29/23 22:00 09/29/23 21:31 Zolpidem Tartrate 5 Mg Tablet PO 5 mg QHS [facility] Administration Problem List (Updated 09/29/23 @ 22:[address] Marty Robledo MD) Tobacco abuse (Acute) Insomnia (Acute) Iron deficiency anemia (Acute) HFrEF (heart failure with reduced ejection fraction) (Acute) Hypokalemia (Acute) Hyperlipidemia (Acute) Chronic airway obstruction (Chronic) Chronic back pain (Chronic) Peptic ulcer disease (Acute) Debility (Acute) Lumbar radiculopathy (Acute) Atrial fibrillation (Acute) Vital Signs Temp Pulse Resp BP Pulse Ox O2 Del Method O2 Flow Rate 97.8 F 71 20 H 130/46 H 96 Nasal Cannula 2 09/29/23 18:26 09/30/23 06:10 09/30/23 06:10 09/29/23 18:26 09/30/23 07:15 09/30/23 07:15 09/30/23 07:15 Oxygen Flow Rate (L/min) 2 Oxygen Delivery Method Nasal Cannula Weight: 63.321 kg Body Mass Index (BMI) 20.0 Sodium 146 mmol/L (136-145) H 09/30/23 05:30 Potassium 3.9 mmol/L (3.5-5.1) 09/30/23 05:30 Chloride 116 mmol/L (98-107) H 09/30/23 05:30 Carbon Dioxide 26.0 mmol/L (21.0-32.0) 09/30/23 05:30 Anion Gap 4 (5-15) L 09/30/23 05:30 BUN 25 mg/dL (7-18) H 09/30/23 05:30 Creatinine 1.33 mg/dL (0.70-1.30) H 09/30/23 05:30 Est GFR (MDRD) Af Amer 66 mL/min (>60) 09/30/23 05:30 Est GFR (MDRD) Non-Af 54 mL/min (>60) L 09/30/23 05:30 BUN/Creatinine Ratio 18.8 RATIO (10-20) 09/30/23 05:30 Glucose 98 mg/dL (74-106) 09/30/23 05:30 Assessment/Plan: 1. Pain: buprenorphine 20 mcg TD weekly, acetaminophen 1000 mg PO Q6H PRN pain. The patient has not required any PRN doses of acetaminophen so far this admission. Please continue to monitor LFTs (AST/ALT = 282/198 U/L on 09/27/23), PRN pain medication usage, pain scores, constipation, itching, drowsiness/dizziness, respiratory depression, and ataxia/syncope/falls. 2. Bowel: senna/docusate 2 tablets PO BID, lactulose 20 grams PO TID, bisacodyl 10 mg PO daily PRN constipation. The patient has not required any PRN doses of bisacodyl so far this admission. The patient's last documented bowel movement was 09/27/23. Please continue to monitor for constipation, diarrhea, PRN pain medication usage, and bowel movements. 3. COPD: albuterol 2 puffs Q4H PRN shortness of breath, umeclidinium/vilanterol 1 puff daily. The patient has not required any PRN doses of albuterol so far this admission. Please continue to monitor for s/s of COPD exacerbation such as cough or shortness of breath, PRN medication usage, palpitations, and constipation. 4. Atrial fibrillation (history of mechanical AVR): amiodarone 200 mg PO daily, warfarin 2 mg on Sundays, Mondays, Wednesdays and Fridays, warfarin 5 mg on Tuesdays, and Saturdays. Please continue to monitor for s/s of atrial fibrillation such as palpitations, LFTs (AST/ALT = 282/198 U/L on 09/27/23), nausea/vomiting, lung function, thyroid function level (TSH = 2.14 uIU/mL on 09/27/23 with T4 = 1.01 on 04/11/23), INR levels (INR = 3.3 on 09/29/23), for s/s of bleeding/excessive bruising, hemoglobin levels (Hgb = 7.5 g/dL on 09/30/23), and platelet count (Plt = 131 K/mm3). The patient's LFTs have been elevated and he is on amiodarone, please consider re-ordering LFTs in around a week to ensure they decrease/stabilize. 5. Hyperlipidemia: atorvastatin 80 mg PO QHS. Please continue to monitor lipid levels (cholesterol = 128 mg/dL with LDL = 55 mg/dL on 09/02/23), for myalgias and LFTs (AST/ALT = 282/198 U/L on 09/27/23). Would recommend holding atorvastatin at this time until LFTs have returned to at lest < 3 times UNL. 6. HFrEF: empagliflozin 10 mg PO daily, furosemide 20 mg PO daily. Please continue to monitor for s/s of heart failure exacerbation such as lower extremity edema and shortness of breath, renal function (serum creatinine = 1.33 mg/dL with GFR = ~54 mL/min and creatinine clearance = ~ 36 mL/min on 09/30/23), for s/s of dehydration, for urinary tract infections, for s/s of infections, sodium levels (Na = 146 mmol/L on 09/30/23), potassium levels (K = 3.9 mmol/L on 09/30/23), and calcium levels (Ca = 8.3 mg/dL on 09/30/23). 7. CAD: nitroglycerin 0.4 mg SL Q5M PRN chest pain. The patient has not required any PRN doses of nitroglycerin so far this admission. Please continue to monitor for chest pain and PRN nitroglycerin usage. 8. Iron deficiency anemia: iron polysaccharide 150 mg PO daily, ascorbic acid 500 mg PO daily. Please continue to monitor hemoglobin levels (Hgb = 7.5 g/dL on 09/30/23), platelet count (Plt = 131 K/mm3 on 09/30/23), and iron levels (iron = 137 ug/dL on 09/02/23). 9. PUD: pantoprazole 40 mg PO BID, sucralfate 1 gram PO TID. Please continue to monitor for s/s of PUD, for diarrhea that could indicate clostridium difficile infection, and for s/s of bone resorption such as fractures. 10. Tobacco abuse: nicotine 7 mg patch TD daily. Please continue to monitor for nicotine cravings and nightmares. If nightmares/unpleasant dreams occur, please consider removing the nicotine patch prior to bedtime. 11. Hypokalemia: potassium chloride 10 mEq daily with a meal. Please continue to monitor for s/s of hypokalemia and potassium levels (K = 3.9 mmol/L on 09/30/23). 12. Vitamin D deficiency: cholecalciferol 25 mcg PO daily. Please continue to monitor for s/s of vitamin D deficiency as well as vitamin D levels (Vitamin D level = 36.5 ng/mL on 04/03/18). 13. Folate deficiency: folic acid 1 mg PO daily. Please continue to monitor for s/s of folate deficiency. 14. Skin irritation: calmoseptine 1 application topically BID. Please continue to monitor for skin irritation/skin integrity. Assessment/Plan for indications treated with psychotropic medications: 1. Insomnia: zolpidem 5 mg PO QHS. This is a long-term chronic therapy, GDR not recommended. Please continue to monitor for insomnia, drowsiness, dizziness, headache, abnormal dreams, anxiety and hallucinations. Medical chart and medication regimen reviewed. The following medication irregularities or issues were identified: 4. Atrial fibrillation (history of mechanical AVR): amiodarone 200 mg PO daily, warfarin 2 mg on Sundays, Mondays, Wednesdays and Fridays, warfarin 5 mg on Tuesdays, and Saturdays. The patient's LFTs have been elevated and he is on amiodarone, please consider re-ordering LFTs in around a week to ensure they decrease/stabilize. 5. Hyperlipidemia: atorvastatin 80 mg PO QHS. Would recommend holding atorvastatin at this time until LFTs have returned to at lest < 3 times UNL. Date Date of Note:: 09/30/23 Documented by User: Dr. Marty Robledo MD 09/30/23 11:17 TCU RX Drug Regimen Review Provider Comments Provider responsibility Provider Comments to Recommendations by Pharmacy: Agree
[2023-09-30] MEDS: Menthol/Lanolin/Calamine/Znox 113 GM Tube 1 APPLIC TOPICAL ×2 (13:24→22:11)
--- NOTE | 2023-09-30 14:31 | NURSING ---
Called patient PCP for PN vaccine records and they report they have no records of patient having received a PN shot through them. When discussed with patient, he reports he would have received them through the [facility]. Message left with Sarai GA in Dr. Chase office.
--- NOTE | 2023-09-30 14:35 | CHAPLAIN ---
Type of Pastoral Visit _x__ Initial Visit ___ Follow-up Visit ___ On-call Visit ___ General Patient Visit ___ Spiritual Assessment ___ Family Conference ___ Bereavement ___ Rapid Response ___ Code Blue ___ Other (describe below) Pastoral Care Referral From _x__ Patient ___ Family ___ Nurse ___ Physician ___ Cabinet Finisher ___ Pan Puller ___ Other (describe below) Sacrament/Intervention _x__ Active listening ___ Anointing ___ Mandaeism ___ Bereavement ___ Communion ___ Rachele exploration ___ _x__ Life review _x__ Prayer ___ Reconciliation ___ Sacrament of Sick _x__ Supportive presence ___ Wedding ___ Other (describe below) Pastoral Comments patient was in bed working on [employer] when this retail account manager entered room; pt is welcoming and answers questions about his life and experiences with clarity; pt has lived all of his life in [place] [facility] [place] except for three years when serving in the ; 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
[2023-09-30 15:47] VITALS: BP 103/50; PULSE 68; RESP 16; TEMP 36.7; O2SAT 96
--- NOTE | 2023-09-30 16:08 | CASEMGMT ---
Social Work Met with patient to complete initial assessment. Introduced self and role. Verified/updated contacts. Pt confirmed code status as DNR-CCA, no intubation. Educated to [facility] insurance with NRD 10/02 and continued stay is not guaranteed with each review. Pt's goal is to return home alone at [facility]. SW will continue to follow for DC planning. Goldie Ramirez, SALES MANAGER [employer] COMPLIANCE REPRESENTATIVE
[2023-09-30] MEDS: Ensure Plus High Protein 120 ML LIQUID PO ×2 (17:00→22:11)
[2023-09-30] MEDS: Zolpidem Tartrate 5 MG Tablet PO (22:11)
[2023-09-30] MEDS: Folic Acid 1 MG Tablet PO (22:13)
[2023-10-01] MEDS: Ensure Plus High Protein 120 ML LIQUID PO ×3 (06:22→16:39)
[2023-10-01] MEDS: Sucralfate 1 GM Tablet PO ×3 (06:23→16:39)
[2023-10-01 06:35] LABS: Bedside Glucose 87 mg/dL (74-106)
[2023-10-01 07:39] VITALS: O2SAT 95
[2023-10-01 08:06] VITALS: BP 123/51; PULSE 71; RESP 16; TEMP 36.8; O2SAT 96
[2023-10-01] MEDS: Potassium Chloride Oral Tablet 10 MEQ PO (08:10)
[2023-10-01] MEDS: Furosemide 20 MG Tablet PO (08:11)
[2023-10-01] MEDS: Umeclidinium Brm/Vilanterol 62.5-25 mcg Inh 1 PUFF INHALATION (08:11)
[2023-10-01] MEDS: Iron Polysaccharide Complex 150 MG CAPSULE PO (08:11)
[2023-10-01] MEDS: Amiodarone 200 MG Tablet PO (08:11)
[2023-10-01] MEDS: Menthol/Lanolin/Calamine/Znox 113 GM Tube 1 APPLIC TOPICAL ×2 (08:11→22:44)
[2023-10-01] MEDS: Empagliflozin 10 MG Tablet PO (08:11)
[2023-10-01] MEDS: Pantoprazole Sodium 40 MG Tablet PO ×2 (08:12→22:45)
[2023-10-01] MEDS: Ascorbic Acid 500 MG Tablet PO (08:13)
[2023-10-01] MEDS: Cholecalciferol (VIT D3) 25 MCG TABLET (1,000 UNITS) PO (08:14)
--- NOTE | 2023-10-01 08:20 | NURSING ---
Verified Butrans pain patch on left shoulder.
--- NOTE | 2023-10-01 09:09 | NURSING ---
Addendum entered by Nico Shaikh 10/01/23 15:37: Patient returned to unit post blood transfusion. Addendum entered by Ncio Shaikh 10/01/23 11:28: Carafate and Ensure taken to [facility] and given to patient. Name and verified. Patient took w/o difficulties. No further needs at this time. Call light within reach. Original Note: Patient left unit for [facility] [id number] for blood transfusion.
[2023-10-01 22:15] VITALS: O2SAT 95
[2023-10-01] MEDS: Zolpidem Tartrate 5 MG Tablet PO (22:44)
[2023-10-01] MEDS: Lactulose 20 GM/30 ML UDC PO (22:45)
[2023-10-01] MEDS: Senna/Docusate Sodium 1 Tablet 2 TABLET PO (22:45)
[2023-10-01] MEDS: Folic Acid 1 MG Tablet PO (22:46)
[2023-10-02] MEDS: Lactulose 20 GM/30 ML UDC PO (05:36)
[2023-10-02] MEDS: Ensure Plus High Protein 120 ML LIQUID PO ×3 (05:36→18:02)
[2023-10-02] MEDS: Sucralfate 1 GM Tablet PO ×3 (06:42→16:23)
[2023-10-02 06:49] LABS: Bedside Glucose 103 mg/dL (74-106)
[2023-10-02 07:10] VITALS: O2SAT 99
[2023-10-02 08:12] VITALS: BP 104/53; PULSE 62; RESP 18; TEMP 36; O2SAT 98
[2023-10-02] MEDS: Amiodarone 200 MG Tablet PO (08:14)
[2023-10-02] MEDS: Umeclidinium Brm/Vilanterol 62.5-25 mcg Inh 1 PUFF INHALATION (08:14)
[2023-10-02] MEDS: Furosemide 20 MG Tablet PO (08:15)
[2023-10-02] MEDS: Potassium Chloride Oral Tablet 10 MEQ PO (08:15)
[2023-10-02] MEDS: Pantoprazole Sodium 40 MG Tablet PO ×2 (08:15→22:09)
[2023-10-02] MEDS: Iron Polysaccharide Complex 150 MG CAPSULE PO (08:15)
[2023-10-02] MEDS: Empagliflozin 10 MG Tablet PO (08:21)
[2023-10-02] MEDS: Senna/Docusate Sodium 1 Tablet 2 TABLET PO (08:22)
[2023-10-02] MEDS: Cholecalciferol (VIT D3) 25 MCG TABLET (1,000 UNITS) PO (08:22)
[2023-10-02] MEDS: Ascorbic Acid 500 MG Tablet PO (08:22)
[2023-10-02] MEDS: Menthol/Lanolin/Calamine/Znox 113 GM Tube 1 APPLIC TOPICAL ×2 (08:24→22:09)
[2023-10-02] MEDS: Buprenorphine 10 MCG PATCH.TDWK 2 PATCH TD (11:09)
--- NOTE | 2023-10-02 11:13 | NURSING ---
Addendum entered by Krystal Freeman 10/02/23 11:19: Witnessed waste of 15mcg Butrans patch with REFUGIO Kruse Original Note: Per orders, applied two 10mcg Butrans patches, to back of right shoulder. Removed one 15mcg Butrans patch from left shoulder; wasted patch with SURY.
[2023-10-02 16:00] LABS: Hematocrit 30.8 % (40-54); Hemoglobin 9.3 g/dL (13.0-16.5)
[2023-10-02] MEDS: Zolpidem Tartrate 5 MG Tablet PO (22:08)
[2023-10-02] MEDS: Folic Acid 1 MG Tablet PO (22:09)
[2023-10-02] MEDS: 0.9% Saline Lock 10 ML Syringe IV (22:09)
[2023-10-03] MEDS: Sucralfate 1 GM Tablet PO ×3 (05:56→16:46)
[2023-10-03 06:31] LABS: International Normalized Ratio 1.5; Prothrombin Time (Protime)PT. 17.9 SECONDS (11.7-14.9)
[2023-10-03 06:47] LABS: Bedside Glucose 93 mg/dL (74-106)
[2023-10-03 06:51] LABS: ALB/GLOB Ratio 0.9 RATIO (0.9-2.4); AST(SGOT) 73 U/L (15-37); Alanine Aminotransfer ALT/SGPT 129 U/L (16-61); Albumin, Serum 2.5 g/dL (3.2-5.0); Alkaline Phosphatase 134 U/L (45-117); Anion Gap 5 (5-15); BUN 32 mg/dL (7-18); BUN/Creat Ratio 22.9 RATIO (10-20); Calcium,Total 8.6 mg/dL (8.5-10.1); Chloride 111 mmol/L (98-107); EST Glomerular Filtration Rate 51 mL/min (>60); Est Glom Filt Rate - Afr Amer 62 mL/min (>60); Estimated Creatinine Clearance 34.55 ml/min; Globulin 2.7 g/dL (2.2-4.2); Glucose 92 mg/dL (74-106); Potassium 4.3 mmol/L (3.5-5.1); Protein, Total 5.2 g/dL (6.4-8.2); Sodium Level 145 mmol/L (136-145)
[2023-10-03 07:02] VITALS: O2SAT 96
[2023-10-03 10:05] VITALS: BP 100/46; PULSE 60; RESP 18; TEMP 36.6; O2SAT 97
[2023-10-03] MEDS: Umeclidinium Brm/Vilanterol 62.5-25 mcg Inh 1 PUFF INHALATION (10:07)
[2023-10-03] MEDS: Ascorbic Acid 500 MG Tablet PO (10:08)
[2023-10-03] MEDS: Pantoprazole Sodium 40 MG Tablet PO ×2 (10:08→21:05)
[2023-10-03] MEDS: Empagliflozin 10 MG Tablet PO (10:08)
[2023-10-03] MEDS: Furosemide 20 MG Tablet PO (10:08)
[2023-10-03] MEDS: Potassium Chloride Oral Tablet 10 MEQ PO (10:08)
[2023-10-03] MEDS: Iron Polysaccharide Complex 150 MG CAPSULE PO (10:08)
[2023-10-03] MEDS: Cholecalciferol (VIT D3) 25 MCG TABLET (1,000 UNITS) PO (10:08)
[2023-10-03] MEDS: Amiodarone 200 MG Tablet PO (10:08)
[2023-10-03] MEDS: 0.9% Saline Lock 10 ML Syringe IV (10:16)
[2023-10-03] MEDS: Menthol/Lanolin/Calamine/Znox 113 GM Tube 1 APPLIC TOPICAL ×2 (11:33→21:06)
--- NOTE | 2023-10-03 11:48 | NURSING ---
Information Systems Security Analyst Note; Activity Asset: Roma Hewitt is independent in his choice of daily activities. He prefers to be called Garry. Garry enjoys reading the paper, watching tv and working on word search puzzles. His family will come and visit w/him and he welcomes visits from both the [place] and therapy dog. 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 Staff will remind him of weekly activities and respect his right to say no.
--- NOTE | 2023-10-03 11:49 | NURSING ---
Offered covid vaccine, VIS provided. Patient refuses at this time.
[2023-10-03] MEDS: Ensure Plus High Protein 120 ML LIQUID PO ×3 (12:11→21:05)
--- NOTE | 2023-10-03 16:54 | EX.PCM.CON.G ---
HPI Consult Data Date of Consult: 10/03/23 HPI Narrative Reason for Consultation: Anemia HPI Narrative: REBECCA ARRIOLA, is a 83-year-old male with a past medical history as outlined was admitted through the ED on 09/27/2023 with complaint of back pain and numbness and tingling both lower extremities. Patient had just been discharged the day before admission after being managed for acute GI bleed and had an EGD which showed abnormal esophageal motility was treated with injection of botulinum toxin as well as dilation of her moderate Schatzki ring. Biopsies were done for possible eosinophilic esophagitis. Patient has not been having any more problems with esophageal dysphagia. Patient went home but apparently he was very weak at home and could not ambulate well. He also had severe back pain which was chronic so he was brought back into the ED. He was admitted and managed for debility in the setting of chronic back pain. Patient was too weak to go home and so he and family opted for placement option. Physical therapy was consulted and he did work with physical therapy. He had CT of the lumbar spine which showed posterior spinal fusion with pedicle screws and rods from L4 through to S1 which appeared intact with no loosening of the hardware seen. Of note, patient was noted to be hypotensive during admission. This was asymptomatic. His blood pressure was mainly in the 90s and low 100 systolic. Of note it was also found that patient had on 2 buprenorphine patches when he came on instead of 1 patch. And on side effects of buprenorphine is hypotension so my concern was that hypotension may have been due to the 2 buprenorphine patches that he had on. His metoprolol was discontinued and patient was continued on his amiodarone and Lasix. He was discharged to [facility] on 09/29/2023. I was asked to see him on consult again because of decreasing hemoglobin. As per his significant other he still continues to smoke. He does have a history of thrombocytopenia along with anemia and leukopenia. His anemia is a macrocytic anemia. He still remains on blood thinners at this time. His hemoglobin was 6.7 and is up to 8.7 after blood transfusion. [facility] Medical History (Updated 09/29/23 @ 22:[address] Marty Robledo MD) Ambulates with cane Anemia Anemia due to chronic blood loss Anticoagulant long-term use Arthritis Asthma Atherosclerotic heart disease of [place] coronary artery without angina pectoris Atrial fibrillation Back pain due to injury CHF (congestive heart failure) Chronic airway obstruction Chronic anticoagulation Chronic cough Chronic pain Chronic pain syndrome CKD (chronic kidney disease) COPD (chronic obstructive pulmonary disease) COPD (chronic obstructive pulmonary disease) Coronary artery disease Erosion of pacemaker pocket due to and not concurrent with implantation of cardiac pacemaker Essential hypertension Former smoker GERD (gastroesophageal reflux disease) Heart attack HFrEF (heart failure with reduced ejection fraction) High cholesterol History of edema History of GI bleed History of heart attack History of pain when walking History of stress test Hx of fracture of ankle Hx of fracture of ankle Hypertension ICD (implantable cardioverter-defibrillator) in place Injury of back Injury of head and neck Intermittent complete heart block Ischemic cardiomyopathy Kidney disease jail current use of anticoagulant 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 On home oxygen therapy Osteoporosis Paroxysmal atrial fibrillation Pericardial effusion after operative procedure Persistent atrial fibrillation Pure hypercholesterolemia Restless legs Secondary pulmonary arterial hypertension Sick sinus syndrome Spinal stenosis of lumbar region Stage 3a chronic kidney disease (CKD) Stroke Symptomatic bradycardia TIA (transient ischemic attack) Tobacco use disorder Wears dentures Wears glasses Home Medications albuterol sulfate 90 mcg/actuation breath activated powder inhaler 2 puff inhalation Q4H PRN Shortness Of Breath 09/25/15 [History Last Taken 08/23/22] cholecalciferol (vitamin D3) 25 mcg (1,000 unit) tablet 1,000 unit PO DAILY SUPPLEMENT 09/25/15 [History Last Taken 08/24/22] folic acid 1 mg tablet 1 mg PO QHS SUPPLEMENT 06/24/16 [History Last Taken 08/23/22] tiotropium 2.5 mcg-olodaterol 2.5 mcg/actuation mist for inhalation (Stiolto Respimat) 1 puff inhalation BID ASTHMA 06/18/21 [History Last Taken 08/24/22] ipratropium 0.5 mg-albuterol 3 mg (2.5 mg base)/3 mL nebulization soln 3 ml inhalation 4X/DAY SHORTNESS OF BREATH 11/25/21 [History Last Taken 04/06/22] nitroglycerin 0.4 mg sublingual tablet 0.4 mg sublingual Q5M PRN Chest Pain #25 tabs 09/17/22 [Rx Last Taken Unknown] rosuvastatin 40 mg tablet (Crestor) 40 mg PO DAILY cholesterol 03/29/23 [History Last Taken Unknown] furosemide 20 mg tablet 20 mg PO DAILY dose has been decreased. water pill #90 tabs 04/25/23 [Rx Last Taken Unknown] potassium chloride 10 mEq tablet,extended release 10 meq PO DAILY supplement #30 tabs 04/25/23 [Rx Last Taken Unknown] amiodarone 200 mg tablet 200 mg PO DAILY afib #90 tabs 04/28/23 [Rx Last Taken Unknown] empagliflozin 10 mg tablet (Jardiance) 10 mg PO DAILY heart health #90 tabs 04/28/23 [Rx Last Taken Unknown] ferrous sulfate 325 mg (65 mg iron) tablet 325 mg PO QODAY IRON SUPPLEMENT 30 days #0 tabs 09/26/23 [Rx Last Taken Unknown] lactulose 20 gram/30 mL oral solution 20 g (30 mL) PO TID liver 1 month #2,700 mL 09/26/23 [Rx Last Taken Unknown] pantoprazole 40 mg tablet,delayed release 40 mg PO BID ACID REFLUX 30 days #60 tabs 09/26/23 [Rx Last Taken Unknown] sennosides 8.6 mg-docusate sodium 50 mg tablet (Stool Softener-Stimulant Laxative) 2 tab PO BID stool softener #0 tabs 09/26/23 [Rx Last Taken Unknown] sucralfate 100 mg/mL oral suspension (Carafate) 1 g (10 mL) PO TID gerd 1 month #900 mL 09/26/23 [Rx Last Taken Unknown] zolpidem 10 mg tablet 5 mg (1/2 x 10 mg) PO QHS sleep 3 days #0 tabs 09/26/23 [Rx Last Taken Unknown] buprenorphine 20 mcg/hour weekly transdermal patch 1 patch transdermal QWEEK pain 09/27/23 [History Last Taken Unknown] nicotine 7 mg/24 hr daily transdermal patch (Nicoderm CQ) 1 patch transdermal DAILY smoking 09/27/23 [History Last Taken Unknown] warfarin 2 mg tablet See Rx Instructions PO .COMPLEX blood thinner 09/27/23 [History Last Taken Unknown] Allergy/AdvReac Type Severity Reaction Status Date / Time No Known Allergies Allergy Verified 09/26/23 22:26 Family History Son , age 44 from [place] CAD (coronary artery disease) Myocardial infarction Sudden cardiac Brother CAD (coronary artery disease) Pt states all nine of his siblings have heart problems Sister CAD (coronary artery disease) Patient states all nine of his siblings have heart problems Other History of mechanical aortic valve replacement Surgical History Cardiac pacemaker in situ H/O cardiac catheterization H/O prosthetic aortic valve replacement History of coronary artery stent placement (~06/28/11) History of coronary artery stent placement History of esophagogastroduodenoscopy (EGD) (~10/2021) History of left heart catheterization History of lumbar fusion History of mechanical aortic valve replacement (~03/27/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 Hx of CABG Presence of biventricular implantable cardioverter-defibrillator (ICD) S/P CABG x 1 (~03/27/93) Status post cardiac surgery Social History household members: family and none housing: house Smoking Status: Current every day smoker tobacco type: cigarettes and smokeless tobacco alcohol intake: never substance use type: does not use caffeine: No ROS Constitutional Constitutional: Denies chills, fever(s) or weight gain ENT HEENT: Denies headache(s), nasal congestion or nasal discharge Cardiovascular Cardiovascular: Denies chest pain or palpitations Respiratory/Chest Respiratory/Chest: Denies cough, excessive phlegm production or shortness of breath with exertion Gastrointestinal Gastrointestinal: Denies abdominal pain, nausea or vomiting Genitourinary Genitourinary: Denies dysuria Musculoskeletal Musculoskeletal: Denies joint pain or joint swelling Integumentary Integumentary: Denies rash or wounds Neurologic Neurologic: Reports numbness, tingling and weakness; Denies focal weakness Psychiatric Psychiatric: Denies anxiety, auditory hallucinations, depression, homicidal ideation or suicidal ideation Physical Exam Const alert Constitutional Narrative: frail General Appearance: cooperative HEENT normocephalic Mouth: oral and palatal mucosa normal Eyes PERRL and EOMs intact bilaterally Neck supple, no JVD and no carotid bruits Lymph Lymphatic: no lymphadenopathy noted and no lymphedema noted Resp normal respiratory effort, normal air movement and clear to auscultation bilaterally Resp Narrative: mildly diminished breath sounds bibasally, no wheezes or crackles. On room air. Cardio regular rate and regular rhythm GI normal to inspection, nondistended, normoactive bowel sounds, non-tender and non-distended Extremity normal capillary refill General Extremity: Negative for edema Skin no rashes or lesions noted Skin Narrative: General Skin Exam: no breakdown Neuro oriented x3, CN's II-XII intact bilaterally, moves all extremities, no focal motor deficits, no sensory deficits noted and deep tendon reflexes 2+ bilaterally Sensorium / Orientation: awake, alert, oriented to person, oriented to place and oriented to time Speech: speech normal Motor Exam: strength 5/5 throughout and general weakness Psych affect normal Appearance: appropriate Medical Records Data Medical Nutrition Assessment Dietitian: Malnutrition Criteria Met Start: 09/30/23 12:28 Freq: Status: Active Protocol: Document 09/30/23 12:28 [facility] (Rec: 09/30/23 12:28 SLA Desktop) Nutrition Malnutrition Evidence of Malnutrition Exists Yes Malnutrition (severe): Chronic Evidenced By Suboptimal Energy Intake ( Severe),Weight Loss (Severe), Physical Changes (Moderate) Clinical Problem Chronic Disease or Condition Related Malnutrition Etiology related to inadequate energy intake Signs/Symptoms as evidenced with <50% po intake of estimated nutritional needs and 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; 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 body Status Active Problem Recommendation Dietitian Recommendations/Changes Will liberalize diet to regular d/t signs and symptoms of malnutrition Will order 4 oz ensure plus high protein 4x/day w/ medpass Will order magic cup w/ lunch and dinner for increased nutrition if consumed Lab / Micro Data 10/02/23 15:55 10/03/23 05:17 Labs: Laboratory Results - last 24 hr 10/03/23 05:17: PT 17.9 H, INR 1.5, Sodium 145, Potassium 4.3, Chloride 111 H, Carbon Dioxide 29.0, Anion Gap 5, BUN 32 H, Creatinine 1.40 H, Estim Creat Clear Calc 34.55, Est GFR (MDRD) Af Amer 62, Est GFR (MDRD) Non-Af 51 L, BUN/Creatinine Ratio 22.9 H, Glucose 92, Calcium 8.6, Total Bilirubin 0.70, AST 73 H, ALT 129 H, Alkaline Phosphatase 134 H, Total Protein 5.2 L, Albumin 2.5 L, Globulin 2.7, Albumin/Globulin Ratio 0.9 10/03/23 06:29: POC Glucose 93 Assessment & Plan Assessment/Plan (1) GI bleed: PLAN: Plan The patient is an 83 y/o M came to ED for shortness of breath At rest, worse with exertion/Dyspnea on exertion and generalized weakness getting worse over the past 4 days. Patient could not walk after few steps . No nausea or vomiting. Denies hematemesis or coffee-ground emesis, melena or hematochezia. History of GI bleed in the past with anemia. Acute GI Bleed w/ resultant Acute Blood Loss Anemia on Chronic anemia/Fe deficiency anemia with associated mild hypotension with ongoing outpatient evaluation of note for possible liver fibrosis: EGD on 06/16/2023 Impressions : - Abnormal esophageal motility, suspicious for esophageal spasm. Injected with botulinum toxin. - Moderate Schatzki ring. Dilated. - Small hiatal hernia. - Normal second portion of the duodenum. - Biopsies were taken with a cold forceps for evaluation of eosinophilic esophagitis. Ordered CT abdomen/pelvis with oral contrast. Continue IV PPI. Hemoglobin 6.2/27%. Platelet count 117,000. Impression: - Normal esophagus. - A medium amount of food (residue) in the stomach. - Oozing gastric ulcers with pigmented material. Injected. Treated with a heater probe. - No gross lesions in the duodenal bulb. - Retained food in the duodenum. - No specimens collected. Severe constipation: Patient had multiple oral, rectal suppository including MiraLAX, senna S, Dulcolax 10 mg oral and suppository and soapsuds enema. Patient had 1 bowel movement. General surgery was consulted and they recommended CT scan abdomen pelvis. CT abdomen and pelvis individually reviewed and discussed with the surgeon. Left-sided fecal matter with the stretching of splenic flexure and left side of the colon. Patient has tenderness on the left side coincides with the CT findings. Soapsuds enema today. Lactulose added and discontinue MiraLAX as both are osmotic laxatives Patient had a capsule endoscopy that did show some signs of bleeding in the mid small bowel. He would benefit from a repeat upper endoscopy and he will need to go to tertiary care center for deep enteroscopy or IR guided therapy. Charges/Coding Visit Charges Inpatient E&M: 31505 SNF Init L2
--- NOTE | 2023-10-03 17:34 | NURSING ---
Addendum entered by Aixa Morales 10/03/23 17:41: Received callback from candy; she is in agreement with plan of care. Original Note: Dr. Muir consulted today, gave new orders for NPO after midnight tonight, EGD with possible cauterization and/or injection therapy. Spoke with pt, who is in agreement with plan of care. States he has had procedure done before, no further questions. Attempted to call daughter, Candy (POA), left voicemail to return call when possible.
[2023-10-03] MEDS: Folic Acid 1 MG Tablet PO (21:05)
[2023-10-03] MEDS: Zolpidem Tartrate 5 MG Tablet PO (21:06)
[2023-10-03] MEDS: Senna/Docusate Sodium 1 Tablet 2 TABLET PO (21:06)
[2023-10-04 06:28] LABS: Bedside Glucose 102 mg/dL (74-106)
[2023-10-04 08:27] VITALS: O2SAT 96
[2023-10-04 08:45] VITALS: BMI 18.8
[2023-10-04 10:00] VITALS: O2SAT 98
[2023-10-04] MEDS: Umeclidinium Brm/Vilanterol 62.5-25 mcg Inh 1 PUFF INHALATION (10:31)
[2023-10-04] MEDS: Menthol/Lanolin/Calamine/Znox 113 GM Tube 1 APPLIC TOPICAL ×2 (10:35→22:05)
[2023-10-04] MEDS: Amiodarone 200 MG Tablet PO (11:41)
[2023-10-04] MEDS: Pantoprazole Sodium 40 MG Tablet PO ×2 (11:41→20:30)
[2023-10-04] MEDS: Empagliflozin 10 MG Tablet PO (11:41)
[2023-10-04] MEDS: Furosemide 20 MG Tablet PO (11:41)
[2023-10-04] MEDS: Senna/Docusate Sodium 1 Tablet 2 TABLET PO ×2 (11:41→20:30)
[2023-10-04] MEDS: Iron Polysaccharide Complex 150 MG CAPSULE PO (11:41)
[2023-10-04] MEDS: Cholecalciferol (VIT D3) 25 MCG TABLET (1,000 UNITS) PO (11:41)
[2023-10-04] MEDS: Ascorbic Acid 500 MG Tablet PO (11:41)
[2023-10-04] MEDS: Ensure Plus High Protein 120 ML LIQUID PO ×3 (11:46→20:29)
[2023-10-04 13:11] VITALS: BP 116/52; PULSE 60; RESP 18; TEMP 36.2; O2SAT 97
[2023-10-04] MEDS: Sucralfate 1 GM Tablet PO (16:24)
--- NOTE | 2023-10-04 18:21 | EX.PCM.PN.GI ---
Subjective Subjective Patient's procedure was put on hold today by anesthesia. The plan is for him to have an upper endoscopy tomorrow to evaluate his acute blood loss anemia. Objective Data Objective Data Vital Signs: Vital Signs Temp Pulse Resp BP Pulse Ox O2 Del Method O2 Flow Rate 97.2 F L 60 18 116/52 L 97 Room Air 2 10/04/23 13:11 10/04/23 13:11 10/04/23 13:11 10/04/23 13:11 10/04/23 13:11 10/04/23 13:11 10/02/23 07:10 Oxygen Flow Rate (L/min) 2 Oxygen Delivery Method Room Air Weight: 131 lb 11.2 oz Body Mass Index (BMI) 18.8 Intake & Output: Intake and Output for Last 24 Hours 10/02/23 10/03/23 10/04/23 23:59 23:59 23:59 Intake Total 950 / 950 960 / 960 240 / 240 Output Total 125 / 125 Balance 825 / 825 960 / 960 240 / 240 Medical Nutrition Assessment Dietitian: Malnutrition Criteria Met Start: 09/30/23 12:28 Freq: Status: Active Protocol: Document 09/30/23 12:28 [facility] (Rec: 09/30/23 12:28 SLA Desktop) Nutrition Malnutrition Evidence of Malnutrition Exists Yes Malnutrition (severe): Chronic Evidenced By Suboptimal Energy Intake ( Severe),Weight Loss (Severe), Physical Changes (Moderate) Clinical Problem Chronic Disease or Condition Related Malnutrition Etiology related to inadequate energy intake Signs/Symptoms as evidenced with <50% po intake of estimated nutritional needs and 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; 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 body Status Active Problem Recommendation Dietitian Recommendations/Changes Will liberalize diet to regular d/t signs and symptoms of malnutrition Will order 4 oz ensure plus high protein 4x/day w/ medpass Will order magic cup w/ lunch and dinner for increased nutrition if consumed Lab / Micro Data 10/02/23 15:55 10/03/23 05:17 Labs: Laboratory Results - last 24 hr 10/04/23 06:10: POC Glucose 102 Micro: Microbiology 09/30/23 11:33 Stool Stool Occult Blood ([facility]) - Final Occult Blood Positive Physical Exam Const alert Constitutional Narrative: frail General Appearance: cooperative HEENT normocephalic Mouth: oral and palatal mucosa normal Eyes PERRL and EOMs intact bilaterally Neck supple, no JVD and no carotid bruits Lymph Lymphatic: no lymphadenopathy noted and no lymphedema noted Resp normal respiratory effort, normal air movement and clear to auscultation bilaterally Resp Narrative: mildly diminished breath sounds bibasally, no wheezes or crackles. On room air. Cardio regular rate and regular rhythm GI normal to inspection, nondistended, normoactive bowel sounds, non-tender and non-distended Extremity normal capillary refill General Extremity: Negative for edema Skin no rashes or lesions noted Skin Narrative: General Skin Exam: no breakdown Neuro oriented x3, CN's II-XII intact bilaterally, moves all extremities, no focal motor deficits, no sensory deficits noted and deep tendon reflexes 2+ bilaterally Sensorium / Orientation: awake, alert, oriented to person, oriented to place and oriented to time Speech: speech normal Motor Exam: strength 5/5 throughout and general weakness Psych affect normal Appearance: appropriate Assessment & Plan Assessment/Plan (1) GI bleed: PLAN: Plan The patient is an 83 y/o M came to ED for shortness of breath At rest, worse with exertion/Dyspnea on exertion and generalized weakness getting worse over the past 4 days. Patient could not walk after few steps . No nausea or vomiting. Denies hematemesis or coffee-ground emesis, melena or hematochezia. History of GI bleed in the past with anemia. Acute GI Bleed w/ resultant Acute Blood Loss Anemia on Chronic anemia/Fe deficiency anemia with associated mild hypotension with ongoing outpatient evaluation of note for possible liver fibrosis: EGD on 06/16/2023 Impressions : - Abnormal esophageal motility, suspicious for esophageal spasm. Injected with botulinum toxin. - Moderate Schatzki ring. Dilated. - Small hiatal hernia. - Normal second portion of the duodenum. - Biopsies were taken with a cold forceps for evaluation of eosinophilic esophagitis. Ordered CT abdomen/pelvis with oral contrast. Continue IV PPI. Hemoglobin 6.2/27%. Platelet count 117,000. Impression: - Normal esophagus. - A medium amount of food (residue) in the stomach. - Oozing gastric ulcers with pigmented material. Injected. Treated with a heater probe. - No gross lesions in the duodenal bulb. - Retained food in the duodenum. - No specimens collected. Severe constipation: Patient had multiple oral, rectal suppository including MiraLAX, senna S, Dulcolax 10 mg oral and suppository and soapsuds enema. Patient had 1 bowel movement. General surgery was consulted and they recommended CT scan abdomen pelvis. CT abdomen and pelvis individually reviewed and discussed with the surgeon. Left-sided fecal matter with the stretching of splenic flexure and left side of the colon. Patient has tenderness on the left side coincides with the CT findings. Soapsuds enema today. Lactulose added and discontinue MiraLAX as both are osmotic laxatives Patient had a capsule endoscopy that did show some signs of bleeding in the mid small bowel. He would benefit from a repeat upper endoscopy and he will need to go to tertiary care center for deep enteroscopy or IR guided therapy. N.p.o. past midnight. Charges/Coding Visit Charges Inpatient E&M: 74717 SNF Subs L3
[2023-10-04] MEDS: Lactulose 20 GM/30 ML UDC PO (20:29)
[2023-10-04] MEDS: Folic Acid 1 MG Tablet PO (20:30)
[2023-10-04] MEDS: Zolpidem Tartrate 5 MG Tablet PO (22:02)
[2023-10-05 06:49] LABS: Bedside Glucose 97 mg/dL (74-106)
[2023-10-05] MEDS: Amiodarone 200 MG Tablet PO (09:06)
[2023-10-05] MEDS: Umeclidinium Brm/Vilanterol 62.5-25 mcg Inh 1 PUFF INHALATION (09:11)
[2023-10-05] MEDS: Menthol/Lanolin/Calamine/Znox 113 GM Tube 1 APPLIC TOPICAL ×2 (09:13→22:11)
[2023-10-05] MEDS: 0.9% Saline Lock 10 ML Syringe IV (09:17)
[2023-10-05 09:22] VITALS: BP 114/50; PULSE 59
--- NOTE | 2023-10-05 09:24 | CASEMGMT ---
Social Work IDT met with patient and dtr for care plan meeting. Discussed patient's progress in PT/OT/SN. Educated to [employer] insurance with NRD 10/10, EDC 10/13. Pt is progressing well and pt's goal remains to DC home alone. No concerns noted. Offered HHC vs OP therapy and any DME needs. Pt prefers [facility], whom he used prior. No DME needs. SW to coordinate at DC. Will continue to follow. Goldie Ramirez, MEDIA MARKETING COORDINATOR HANDLE SANDER OPERATOR
--- NOTE | 2023-10-05 11:39 | NURSING ---
Patient off floor for EGD.
[2023-10-05 14:30] VITALS: BP 103/42; PULSE 60; RESP 18; TEMP 36.7; O2SAT 97
--- NOTE | 2023-10-05 14:39 | NURSING ---
OLD NICOTINE PATCH REMOVED AND PUT IN DESTROYER,WITNESS BY SURY BENAVIDES. NEW PATCH APPLIED TO LEFT DELT.
[2023-10-05] MEDS: Iron Polysaccharide Complex 150 MG CAPSULE PO (14:40)
[2023-10-05] MEDS: Empagliflozin 10 MG Tablet PO (14:41)
[2023-10-05] MEDS: Cholecalciferol (VIT D3) 25 MCG TABLET (1,000 UNITS) PO (14:41)
[2023-10-05] MEDS: Ascorbic Acid 500 MG Tablet PO (14:41)
[2023-10-05] MEDS: Potassium Chloride Oral Tablet 10 MEQ PO (14:42)
[2023-10-05] MEDS: Furosemide 20 MG Tablet PO (14:46)
[2023-10-05 14:49] VITALS: BP 113/46; PULSE 60
[2023-10-05] MEDS: Sucralfate 1 GM Tablet PO (16:28)
--- NOTE | 2023-10-05 18:31 | NURSING ---
Daughter Emily updated on EGD report. Emily questioned how bleeding is starting for patient. This nurse educated that blood thinners can cause small areas to bleed more than usual but that daughter would need to speak with doctor for possible cause of original bleeding. Daughter denies further questions at this time.
[2023-10-05 20:31] VITALS: PULSE 60; RESP 16; O2SAT 94
[2023-10-05] MEDS: Zolpidem Tartrate 5 MG Tablet PO (22:10)
[2023-10-05] MEDS: Folic Acid 1 MG Tablet PO (22:12)
[2023-10-05] MEDS: Pantoprazole Sodium 40 MG Tablet PO (22:12)
[2023-10-06 06:12] LABS: International Normalized Ratio 1.1; Prothrombin Time (Protime)PT. 14.2 SECONDS (11.7-14.9)
[2023-10-06] MEDS: Sucralfate 1 GM Tablet PO ×3 (06:41→18:05)
[2023-10-06] MEDS: Ensure Plus High Protein 120 ML LIQUID PO ×3 (06:41→22:02)
[2023-10-06 06:44] LABS: Bedside Glucose 100 mg/dL (74-106)
[2023-10-06] MEDS: Furosemide 20 MG Tablet PO (07:53)
[2023-10-06] MEDS: Iron Polysaccharide Complex 150 MG CAPSULE PO (07:53)
[2023-10-06] MEDS: Ascorbic Acid 500 MG Tablet PO (07:53)
[2023-10-06] MEDS: Cholecalciferol (VIT D3) 25 MCG TABLET (1,000 UNITS) PO (07:53)
[2023-10-06] MEDS: Menthol/Lanolin/Calamine/Znox 113 GM Tube 1 APPLIC TOPICAL ×2 (07:53→22:03)
[2023-10-06] MEDS: Pantoprazole Sodium 40 MG Tablet PO ×2 (07:53→22:03)
[2023-10-06] MEDS: Potassium Chloride Oral Tablet 10 MEQ PO (07:53)
[2023-10-06] MEDS: Empagliflozin 10 MG Tablet PO (07:53)
[2023-10-06] MEDS: Umeclidinium Brm/Vilanterol 62.5-25 mcg Inh 1 PUFF INHALATION (07:54)
[2023-10-06] MEDS: Amiodarone 200 MG Tablet PO (07:54)
[2023-10-06] MEDS: Senna/Docusate Sodium 1 Tablet 2 TABLET PO ×2 (07:55→22:03)
[2023-10-06 08:00] VITALS: BP 103/50; PULSE 60; RESP 60; TEMP 36.7; O2SAT 94
[2023-10-06 10:00] VITALS: O2SAT 94
[2023-10-06] MEDS: Zolpidem Tartrate 5 MG Tablet PO (22:02)
[2023-10-06] MEDS: Folic Acid 1 MG Tablet PO (22:03)
[2023-10-06] MEDS: Lactulose 20 GM/30 ML UDC PO (22:03)
[2023-10-07] MEDS: Ensure Plus High Protein 120 ML LIQUID PO ×3 (05:57→22:14)
[2023-10-07 05:58] LABS: Absolute Lymphocyte Count 0.43 X10^3/uL (0.83-4.51); Absolute Neutrophil Count 2.6 X10^3/uL (2.0-7.7); Basophil# 0.04 X10^3/uL; Basophil% 1.2 % (0-1); Eosinophil# 0.06 X10^3/uL; Eosinophils% 1.7 % (0-5); Hematocrit 32.1 % (40-54); Hemoglobin 9.4 g/dL (13.0-16.5); Lymphocyte # 0.43 X10^3/ul (0.83-4.51); Lymphocyte % 12.4 % (19-41); Mean Corp Hgb Conc 29.3 g/dL (32-36); Mean Corpuscular Hgb 30.1 pg (27.0-32.0); Mean Corpuscular Volume 102.9 fL (80-94); Mean Platelet Vol. 10.8 fl (6.2-12.0); Monocyte# 0.37 X10^3/uL; Monocyte% 10.7 % (0-10); NRBC Flagged by Analyzer 0 % (0-5); Neutrophil # 2.55 X10^3/uL (2.7-7.7); Neutrophil % 73.7 % (47-70); POSITIVE DIFFERENTIAL YES; POSITIVE MORPHOLOGY YES; Platelet Count 146 K/mm3 (150-450); RBC Distribution Width CV 17.3 % (11.6-14.6); RBC Distribution Width SD 65.7 fl (35.1-43.9); Red Blood Count 3.12 M/mm3 (4.6-6.2); White Blood Count 3.5 K/mm3 (4.4-11.0)
[2023-10-07] MEDS: Sucralfate 1 GM Tablet PO ×3 (06:00→16:25)
[2023-10-07 06:12] LABS: Differential Indicated SCAN CRITERIA MET
[2023-10-07 06:35] LABS: Anion Gap 4 (5-15); BUN 35 mg/dL (7-18); Calcium,Total 8.6 mg/dL (8.5-10.1); Chloride 111 mmol/L (98-107); EST Glomerular Filtration Rate 51 mL/min (>60); Est Glom Filt Rate - Afr Amer 62 mL/min (>60); Glucose 94 mg/dL (74-106); Sodium Level 145 mmol/L (136-145)
[2023-10-07 06:48] LABS: Bedside Glucose 100 mg/dL (74-106)
[2023-10-07 07:48] LABS: Anisocytosis 1+
[2023-10-07] MEDS: Iron Polysaccharide Complex 150 MG CAPSULE PO (08:01)
[2023-10-07] MEDS: Ascorbic Acid 500 MG Tablet PO (08:01)
[2023-10-07] MEDS: Pantoprazole Sodium 40 MG Tablet PO ×2 (08:01→22:14)
[2023-10-07] MEDS: Cholecalciferol (VIT D3) 25 MCG TABLET (1,000 UNITS) PO (08:01)
[2023-10-07] MEDS: Amiodarone 200 MG Tablet PO (08:01)
[2023-10-07] MEDS: Potassium Chloride Oral Tablet 10 MEQ PO (08:01)
[2023-10-07] MEDS: Senna/Docusate Sodium 1 Tablet 2 TABLET PO (08:01)
[2023-10-07] MEDS: Empagliflozin 10 MG Tablet PO (08:01)
[2023-10-07] MEDS: Furosemide 20 MG Tablet PO (08:01)
[2023-10-07] MEDS: Umeclidinium Brm/Vilanterol 62.5-25 mcg Inh 1 PUFF INHALATION (08:02)
[2023-10-07] MEDS: Menthol/Lanolin/Calamine/Znox 113 GM Tube 1 APPLIC TOPICAL ×2 (08:03→22:17)
[2023-10-07 08:17] VITALS: BP 118/52; PULSE 61; RESP 16; TEMP 36.6; O2SAT 95
[2023-10-07] MEDS: Tuberculin,Purif.prot.deriv. 50 TU/ML Vial 0.1 ML ID (10:48)
--- NOTE | 2023-10-07 12:13 | CASEMGMT ---
Social Work BIMS () and PHQ-2 () completed MDS assessment. SW discussed DC plans. Pt requesting to DC home. SW offered 10/09 and pt agreed. Dtr can transport. Confirmed pt's preference is HHC with [facility] and has no DME needs. SW phoned [facility] Plan: DC home alone 10/09, [facility] ERICK IbarraW
--- NOTE | 2023-10-07 14:00 | NURSING ---
pt off unit for appt with [facility] at this time
--- NOTE | 2023-10-07 14:26 | PCM.DC.SUM ---
Providers Date of Admission: 09/29/23 Primary Care Physician: Dr. Guillermo Pritchard MD Consultations 10/01/23 11:01 Consult: Gastroenterology Routine Consulting Provider: [facility] Reason for Consult: Progressive anemia, +stool guaiac. EMERGENT Consult: No MD Notified: Yes Date Notified: 10/03/23 Time Notified: 09:31 Method of Notification: Text Reason For Visit: BLLE NUMBNESS, LUMBAR RADICULOPATHY Diagnosis Discharge Diagnosis (1) GI bleed: Status: Acute Code(s): K92.2 - Gastrointestinal hemorrhage, unspecified Plan 83 year old male recently hospitalized for UGIB, peptic ulcer disease, admitted for leg weakness 2/2 lumbar radiculopathy, transferred to TCU with debility, here for rehabilitation, strengthening prior to discharge home with family. Debility - PT/OT. Pain - Butrans 10mcg 2 patches td qweek. Bowel - senna/colace 2 tablets bid, Lactulose 20gm tid, Dulcolax 10mg pr x 1 prn. Adult immunization - Administer pneumonia vaccine, covid vaccine, flu vaccine as appropriate. DVT prophylaxis - on warfarin. COPD - Anoro 1 puff daily, Albuterol 2 puffs q4 prn. Atrial fibrillation - Amiodarone 200mg daily, warfarin 2mg 4 days/week, 5mg 3 days/week. Hyperlipidemia - Atorvastatin 80mg qhs. Vitamin D deficiency - D3 25mcg daily. HFrEF - Jardiance 10mg daily, Furosemide 20mg daily. Iron deficiency anemia - Hemoglobin 7.5, transfuse 2 units PRBC, check stool guaiac, Ferrex 150mg daily, Vitamin C 500mg daily, consider reconsulting Dr. Muir, consider holding warfarin. Folate deficiency - Folic acid 1mg daily. Tobacco Abuse - Nicotine 7mg td daily. Coronary artery disease - NTG 0.4mg sl q5m prn. PUD - Pantoprazole 40mg bid, Sucralfate 1gm tid. Hypokalemia - KCL 10meq daily. Insomnia - Zolpidem 5mg qhs. Medications at Discharge Home Medications albuterol sulfate 90 mcg/actuation breath activated powder inhaler 2 puff inhalation Q4H PRN Shortness Of Breath 09/25/15 cholecalciferol (vitamin D3) 25 mcg (1,000 unit) tablet 1,000 unit PO DAILY SUPPLEMENT 09/25/15 folic acid 1 mg tablet 1 mg PO QHS SUPPLEMENT 06/24/16 tiotropium 2.5 mcg-olodaterol 2.5 mcg/actuation mist for inhalation (Stiolto Respimat) 1 puff inhalation BID ASTHMA 06/18/21 nitroglycerin 0.4 mg sublingual tablet 0.4 mg sublingual Q5M PRN Chest Pain #25 tabs 09/17/22 rosuvastatin 40 mg tablet (Crestor) 40 mg PO DAILY cholesterol 03/29/23 furosemide 20 mg tablet 20 mg PO DAILY dose has been decreased. water pill #90 tabs 04/25/23 potassium chloride 10 mEq tablet,extended release 10 meq PO DAILY supplement #30 tabs 04/25/23 amiodarone 200 mg tablet 200 mg PO DAILY afib #90 tabs 04/28/23 empagliflozin 10 mg tablet (Jardiance) 10 mg PO DAILY heart health #90 tabs 04/28/23 ferrous sulfate 325 mg (65 mg iron) tablet 325 mg PO QODAY IRON SUPPLEMENT 30 days #0 tabs 09/26/23 lactulose 20 gram/30 mL oral solution 20 g (30 mL) PO TID liver 1 month #2,700 mL 09/26/23 zolpidem 10 mg tablet 5 mg (1/2 x 10 mg) PO QHS sleep 3 days #0 tabs 09/26/23 buprenorphine 20 mcg/hour weekly transdermal patch 1 patch transdermal QWEEK pain 09/27/23 warfarin 2 mg tablet See Rx Instructions PO .COMPLEX blood thinner 09/27/23 ascorbic acid (vitamin C) 500 mg tablet 500 mg PO DAILY 30 days #30 tabs 10/07/23 nicotine 7 mg/24 hr daily transdermal patch 7 mg transdermal DAILY 30 days #30 ea 10/07/23 pantoprazole 40 mg tablet,delayed release 40 mg PO BID 30 days #60 tabs 10/07/23 sucralfate 1 gram tablet 1 g PO TID@0700,1100,1600 30 days #90 tabs 10/07/23 Hospital Course Operations None Procedures EGD Summary of Care Provided Minutes Spent on Discharge: 35 Hospital Course: 83 year old male recently hospitalized for UGIB, peptic ulcer disease, admitted for leg weakness 2/2 lumbar radiculopathy, transferred to TCU with debility, here for rehabilitation, strengthening prior to discharge home with family. 10/05/2023 Dr. Muir EGD: Impressions : - Abnormal esophageal motility, suspicious for achalasia. 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 Treated with a heater probe. - A single bleeding angiodysplastic lesion in the duodenum. Treated with a heater probe. - No specimens collected. Discharge home alone 10/10/2023, [facility] PT/OT. Physical Exam Const alert General Appearance: cooperative HEENT normocephalic Eyes PERRL and EOMs intact bilaterally Neck supple, no JVD and no carotid bruits Resp normal respiratory effort, normal air movement and clear to auscultation bilaterally Cardio regular rate and regular rhythm GI normal to inspection, nondistended, normoactive bowel sounds, non-tender and non-distended Extremity normal capillary refill General Extremity: Negative for edema Skin no rashes or lesions noted General Skin Exam: no breakdown Psych affect normal Appearance: appropriate Medical Records Data Medical Nutrition Assessment Dietitian: Malnutrition Criteria Met Start: 09/30/23 12:28 Freq: Status: Active Protocol: Document 10/05/23 13:54 SLA (Rec: 10/05/23 13:54 SLA Desktop) Nutrition Malnutrition Evidence of Malnutrition Exists Yes Malnutrition (severe): Chronic Evidenced By Suboptimal Energy Intake ( Severe),Weight Loss (Severe), Physical Changes (Moderate) Clinical Problem Chronic Disease or Condition Related Malnutrition Etiology related to inadequate energy intake Signs/Symptoms as evidenced with <50% po intake of estimated nutritional needs, 8.6% unintended wt loss since adm and additional 15.4% 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 wt 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 [employer]; 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 body Status Active Problem Recommendation Dietitian Recommendations/Changes When po diet resumes, rec regular diet w/ fortified foods d/t signs and symptoms of malnutrition Rec 4 oz ensure plus high protein 4x/day w/ medpass Rec continue magic cup w/ lunch and dinner for increased nutrition if consumed Weight / BMI Weight Weight: 59.738 kg Body Mass Index (BMI) 18.8 ABG / Lab / Microbiology Data 10/07/23 05:24 10/07/23 05:24 Laboratory: Laboratory Results - last 24 hr 10/07/23 05:24: WBC 3.5 L, RBC 3.12 L, Hgb 9.4 L, Hct 32.1 L, MCV 102.9 H, MCH 30.1, MCHC 29.3 L, RDW Std Deviation 65.7 H, RDW Coeff of [place] 17.3 H, Plt Count 146 L, MPV 10.8, Immature Gran % (Auto) 0.300, Neut % (Auto) 73.7 H, Lymph % (Auto) 12.4 L, [place] % (Auto) 10.7 H, Eos % (Auto) 1.7, Baso % (Auto) 1.2 H, Absolute Neuts (auto) 2.6, Absolute Lymphs (auto) 0.43 L, Nucleated RBC % 0, Differential Comment COMMENT, Anisocytosis 1+, Sodium 145, Potassium 4.0, Chloride 111 H, Carbon Dioxide 30.0, Anion Gap 4 L, BUN 35 H, Creatinine 1.40 H, Estim Creat Clear Calc 32.60, Est GFR (MDRD) Af Amer 62, Est GFR (MDRD) Non-Af 51 L, BUN/Creatinine Ratio 25.0 H, Glucose 94, Calcium 8.6 10/07/23 06:20: POC Glucose 100 Microbiology: Microbiology 09/30/23 11:33 Stool Stool Occult Blood (CORE[facility]) - Final Occult Blood Positive D/C Instructions Discharge Diet: No restrictions Discharge Activity: Return to Normal Activity, May Shower and Use Walker Weight Bearing Status: Weight bearing as tolerated Call your doctor if you observe: Fever of 101 or Higher, Inability to urinate, Inability to have a bowel movement, Shortness of breath, Dizziness, Fainting spells, Swelling in the ankles, Chest pain and Uncontrolled pain Additional Instructions: Discharge home alone 10/10/2023, [facility] PT/OT. Please Follow Up With: Madyson Morrison MD When: As scheduled right forearm skin lesion. Meaningful Use Info Meaningful Use Diagnoses (Choose all that apply): None applicable Discharge Plan Admission Admit Date/Time: 09/29/23 18:03 Primary Reason for Your Visit: Debility. Attending Provider: Marty Robledo Chi Primary Care Provider: Guillermo Pritchard Instructions Additional Instructions / Restrictions: Discharge home alone 10/10/2023, [facility] PT/OT. Discharge Orders/Prescriptions Prescriptions: New nicotine 7 mg/24 hr Patch 24 Hour 7 mg transdermal DAILY 30 Days Qty: 30 0RF sucralfate 1 gram Tablet 1 g PO TID@0700,1100,1600 30 Days Qty: 90 0RF ascorbic acid (vitamin C) 500 mg Tablet 500 mg PO DAILY 30 Days Qty: 30 0RF pantoprazole 40 mg Tablet,Delayed Release (Dr/Ec) 40 mg PO BID 30 Days Qty: 60 0RF Continued nitroglycerin 0.4 mg tablet, sublingual 0.4 mg SUBLINGUAL Q5M PRN (Reason: Chest Pain) Qty: 25 3RF cholecalciferol (vitamin D3) 1,000 UNIT tablet 1,000 unit PO DAILY albuterol sulfate 90 MCG aerosol powdr breath activated 2 puff INHALATION Q4H PRN (Reason: Shortness Of Breath) Patient Comments: folic acid 1 MG tablet 1 mg PO QHS Stiolto Respimat 2.5-2.5 mcg/actuation Mist 1 puff INHALATION BID rosuvastatin [Crestor] 40 mg tablet 40 mg PO DAILY lactulose 20 gram/30 mL Solution 20 g PO TID 30 Days Qty: 2700 2RF Rx Instructions: For constipation. Hold if more than 2 complete BM per day ferrous sulfate 325 mg (65 mg iron) tablet 325 mg PO QODAY 30 Days Qty: 0 0RF Patient Comments: iron supplement zolpidem 10 mg tablet 5 mg PO QHS 3 Days Qty: 0 0RF Patient Comments: TAKE 1 TABLET BY MOUTH EVERY DAY warfarin 2 mg tablet See Rx Instructions PO .COMPLEX Protocol: Dose Management Condition: Tuesday Dose/Route: 4 mg Instruction: 2 x 2 mg tablets Condition: Tuesday Dose/Route: 4 mg Instruction: 2 x 2 mg tablets Condition: Tuesday Dose/Route: 4 mg Instruction: 2 x 2 mg tablets Condition: Tuesday Dose/Route: 4 mg Instruction: 2 x 2 mg tablets Condition: Dose/Route: 4 mg Instruction: 2 x 2 mg tablets Condition: Tuesday Dose/Route: 4 mg Instruction: 2 x 2 mg tablets Condition: Tuesday Dose/Route: 4 mg Instruction: 2 x 2 mg tablets Protocol Text: Adjustment Start Date: Tuesday09/26/23 INR Value: 3.2 INR Date: 09/26/23 Recheck Date: 10/03/23 Patient Comments: prescription changed to 4mg daily until INR recheck d/t patient confusion 09/26/2023 Rx Instructions: 5mg orally Tues, Thurs, and Sat; takes 2mg on Mon, Weds, Fri, and Sun as directed buprenorphine 20 mcg/hour patch weekly 1 patch transdermal QWEEK Patient Comments: has a patch on now 09/27/2023 potassium chloride 10 mEq tablet extended release 10 meq PO DAILY Qty: 30 11RF furosemide 20 mg tablet 20 mg PO DAILY Qty: 90 3RF amiodarone 200 mg tablet 200 mg PO DAILY Qty: 90 3RF Hold Instructions: not taking Jardiance 10 mg tablet 10 mg PO DAILY Qty: 90 3RF Hold Instructions: Hold for 3 days. Patient Comments: not sure when it should be restarted Discontinued ipratropium-albuterol 0.5 mg-3 mg(2.5 mg base)/3 mL solution for nebulization 3 ml INHALATION 4X/DAY sennosides-docusate sodium [Stool Softener-Stimulant Laxat] 8.6-50 mg Tablet 2 tab PO BID Qty: 0 0RF Rx Instructions: 2 tablet twice daily. pantoprazole 40 mg tablet,delayed release (DR/EC) 40 mg PO BID 30 Days Qty: 60 2RF sucralfate [Carafate] 100 mg/mL suspension 1 g PO TID 30 Days Qty: 900 2RF Rx Instructions: Please do not take medication 1 hour before or 2 hours after Carafate. nicotine [Nicoderm CQ] 7 mg/24 hr patch 24 hour 1 patch transdermal DAILY Referrals / Follow Up: [facility] [Provider Group] - 10/19/23 2:15 pm (Right forearm skin lesion, may need possible biopsy) Guillermo Pritchard MD [Primary Care Provider] - Disposition Disposition (needs filled in before D/C Order can be placed): Home Health Service
--- NOTE | 2023-10-07 14:32 | NURSING ---
pt returned from [facility] appt at this time, no new orders noted.
--- NOTE | 2023-10-07 14:38 | NURSING ---
butrans patch intact to RT upper shoulder blade area.
[2023-10-07 20:00] VITALS: PULSE 60; RESP 16; O2SAT 96
[2023-10-07] MEDS: Zolpidem Tartrate 5 MG Tablet PO (22:13)
[2023-10-07] MEDS: Folic Acid 1 MG Tablet PO (22:14)
[2023-10-08] MEDS: Sucralfate 1 GM Tablet PO ×3 (06:07→16:50)
[2023-10-08 06:34] LABS: Bedside Glucose 93 mg/dL (74-106)
[2023-10-08 08:13] VITALS: BP 114/51; PULSE 60; RESP 18; TEMP 36.6; O2SAT 94
[2023-10-08] MEDS: Iron Polysaccharide Complex 150 MG CAPSULE PO (08:18)
[2023-10-08] MEDS: Potassium Chloride Oral Tablet 10 MEQ PO (08:18)
[2023-10-08] MEDS: Umeclidinium Brm/Vilanterol 62.5-25 mcg Inh 1 PUFF INHALATION (08:18)
[2023-10-08] MEDS: Senna/Docusate Sodium 1 Tablet 2 TABLET PO (08:18)
[2023-10-08] MEDS: Cholecalciferol (VIT D3) 25 MCG TABLET (1,000 UNITS) PO (08:18)
[2023-10-08] MEDS: Pantoprazole Sodium 40 MG Tablet PO ×2 (08:18→22:13)
[2023-10-08] MEDS: Ascorbic Acid 500 MG Tablet PO (08:18)
[2023-10-08] MEDS: Amiodarone 200 MG Tablet PO (08:18)
[2023-10-08] MEDS: Furosemide 20 MG Tablet PO (08:18)
[2023-10-08] MEDS: Empagliflozin 10 MG Tablet PO (08:19)
[2023-10-08] MEDS: Menthol/Lanolin/Calamine/Znox 113 GM Tube 1 APPLIC TOPICAL ×2 (08:22→22:16)
--- NOTE | 2023-10-08 08:23 | NURSING ---
elanrans patch intact to RT upper back shoulder blade
[2023-10-08 09:26] VITALS: O2SAT 94
--- NOTE | 2023-10-08 12:30 | NURSING ---
dr martin updated on pt jantoven and Lipitor still being on hold since 10/05/23 from EGD. new order to restart medications.
[2023-10-08] MEDS: Ensure Plus High Protein 120 ML LIQUID PO ×3 (14:16→22:12)
[2023-10-08 14:50] VITALS: PULSE 62; RESP 17; O2SAT 99
[2023-10-08] MEDS: Folic Acid 1 MG Tablet PO (22:14)
[2023-10-08] MEDS: Zolpidem Tartrate 5 MG Tablet PO (22:19)
[2023-10-09] MEDS: Ensure Plus High Protein 120 ML LIQUID PO ×4 (06:04→22:02)
[2023-10-09] MEDS: Sucralfate 1 GM Tablet PO ×3 (06:05→16:40)
[2023-10-09 06:17] LABS: Bedside Glucose 83 mg/dL (74-106)
[2023-10-09] MEDS: Potassium Chloride Oral Tablet 10 MEQ PO (08:40)
[2023-10-09] MEDS: Umeclidinium Brm/Vilanterol 62.5-25 mcg Inh 1 PUFF INHALATION (08:41)
[2023-10-09] MEDS: Menthol/Lanolin/Calamine/Znox 113 GM Tube 1 APPLIC TOPICAL ×2 (08:41→22:04)
[2023-10-09] MEDS: Iron Polysaccharide Complex 150 MG CAPSULE PO (08:42)
[2023-10-09] MEDS: Amiodarone 200 MG Tablet PO (08:42)
[2023-10-09] MEDS: Empagliflozin 10 MG Tablet PO (08:43)
[2023-10-09] MEDS: Furosemide 20 MG Tablet PO (08:44)
[2023-10-09] MEDS: Pantoprazole Sodium 40 MG Tablet PO ×2 (08:48→22:03)
[2023-10-09] MEDS: Cholecalciferol (VIT D3) 25 MCG TABLET (1,000 UNITS) PO (08:49)
[2023-10-09] MEDS: Ascorbic Acid 500 MG Tablet PO (08:49)
--- NOTE | 2023-10-09 09:07 | NURSING ---
Addendum entered by Shabbir Noonan 10/09/23 09:37: THIS NURSE CALLED PHARMACY FOR BUTRANS PATCHES. PHARMACY[JUSTIN] STATED THEY ONLY HAD 1 PATCH AVAILABLE AND COULD NOT GET ANY MORE TILL 10/11/23. THIS NURSE EXPLAINED TO PT ABOUT ONLY 1 PATCH IS AVAILABLE AT THIS TIME AND IF HE WOULD LIKE THE ONE OR WAIT AND WHEN HE IS DISCHARGED TOMORROW AND PUT HIS OWN ON AT HOME. PT STATED HE WOULD BE OK AND WOULD PUT HIS OWN PATCHES ON WHEN HE WOULD GET HOME. RN AWARE Original Note: wasted old nicotine patch from rt delt and 2 old butrans patches from rt shoulder, put in destroyer and witnessed by LACE PAPER MACHINE OPERATOR. placed new nicotine patch to lt delt.
[2023-10-09 09:13] VITALS: BP 107/48; PULSE 60
[2023-10-09] MEDS: Atorvastatin Calcium 80 MG Tablet PO (10:25)
[2023-10-09 13:18] VITALS: PULSE 60; O2SAT 97
[2023-10-09 14:44] VITALS: BP 108/48; PULSE 60; RESP 16; TEMP 36.7; O2SAT 97
[2023-10-09 15:00] VITALS: BP 110/46
[2023-10-09] MEDS: Jantoven 2 MG Tablet PO (17:40)
[2023-10-09] MEDS: Zolpidem Tartrate 5 MG Tablet PO (22:02)
[2023-10-09] MEDS: Lactulose 20 GM/30 ML UDC PO (22:03)
[2023-10-09] MEDS: Folic Acid 1 MG Tablet PO (22:03)
[2023-10-09] MEDS: Senna/Docusate Sodium 1 Tablet 2 TABLET PO (22:03)
[2023-10-10 05:40] VITALS: PULSE 61; RESP 16; O2SAT 98
[2023-10-10] MEDS: Ensure Plus High Protein 120 ML LIQUID PO (05:52)
[2023-10-10 05:54] LABS: International Normalized Ratio 1.1; Prothrombin Time (Protime)PT. 13.7 SECONDS (11.7-14.9)
[2023-10-10] MEDS: Sucralfate 1 GM Tablet PO (05:57)
[2023-10-10 06:11] LABS: Bedside Glucose 89 mg/dL (74-106)
[2023-10-10] MEDS: Menthol/Lanolin/Calamine/Znox 113 GM Tube 1 APPLIC TOPICAL (08:30)
[2023-10-10 08:31] VITALS: BP 102/51; PULSE 60; RESP 18; O2SAT 98
[2023-10-10] MEDS: Potassium Chloride Oral Tablet 10 MEQ PO (08:32)
[2023-10-10] MEDS: Amiodarone 200 MG Tablet PO (08:32)
[2023-10-10] MEDS: Ascorbic Acid 500 MG Tablet PO (08:32)
[2023-10-10] MEDS: Pantoprazole Sodium 40 MG Tablet PO (08:32)
[2023-10-10] MEDS: Cholecalciferol (VIT D3) 25 MCG TABLET (1,000 UNITS) PO (08:32)
[2023-10-10] MEDS: Umeclidinium Brm/Vilanterol 62.5-25 mcg Inh 1 PUFF INHALATION (08:32)
[2023-10-10] MEDS: Empagliflozin 10 MG Tablet PO (08:33)
[2023-10-10] MEDS: Furosemide 20 MG Tablet PO (08:33)
[2023-10-10] MEDS: Iron Polysaccharide Complex 150 MG CAPSULE PO (08:33)
[2023-10-10] MEDS: Atorvastatin Calcium 80 MG Tablet PO (08:34)
--- NOTE | 2023-10-10 08:43 | NURSING ---
Box Nailer Note; MDS for 10/06/2023 Complete
[2023-10-10 11:07] VITALS: BP 109/41; PULSE 61; RESP 18; TEMP 36.8; O2SAT 97
--- NOTE | 2023-10-10 11:25 | NURSING ---
Staff accompanies pt who ambulates to front entrance, discharges to home @1120. Transported by daughter. D/C teaching/info to both pt and daughter, no further questions/comments/concerns.
== END 2023-10-10 11:20 | disposition home health service (06) | DRG 551 ==
PROVIDERS: Admitting Provider Family Medicine Geriatric Medicine; PCP Family Medicine; Visit Provider Family Medicine Geriatric Medicine
DX: M54.16 Radiculopathy, lumbar region (principal); K31.811 Angiodysplasia of stomach and duodenum with bleeding; I13.0 Hypertensive heart and chronic kidney disease with heart failure and stage 1 through stage 4 chronic kidney disease, or unspecified chronic kidney disease; I50.22 Chronic systolic (congestive) heart failure; D62 Acute posthemorrhagic anemia; J44.9 Chronic obstructive pulmonary disease, unspecified; N18.31 Chronic kidney disease, stage 3a; I48.0 Paroxysmal atrial fibrillation; D50.0 Iron deficiency anemia secondary to blood loss (chronic); D53.9 Nutritional anemia, unspecified; K22.0 Achalasia of cardia; E53.8 Deficiency of other specified B group vitamins; F17.210 Nicotine dependence, cigarettes, uncomplicated; F17.220 Nicotine dependence, chewing tobacco, uncomplicated; I25.5 Ischemic cardiomyopathy; I25.10 Atherosclerotic heart disease of native coronary artery without angina pectoris; E87.6 Hypokalemia; E55.9 Vitamin D deficiency, unspecified; E78.00 Pure hypercholesterolemia, unspecified; K59.00 Constipation, unspecified; K44.9 Diaphragmatic hernia without obstruction or gangrene; K31.819 Angiodysplasia of stomach and duodenum without bleeding; K27.9 Peptic ulcer, site unspecified, unspecified as acute or chronic, without hemorrhage or perforation; Z99.81 Dependence on supplemental oxygen; G47.00 Insomnia, unspecified; Z95.5 Presence of coronary angioplasty implant and graft; G89.29 Other chronic pain; Z79.899 Other long term (current) drug therapy; Z79.01 Long term (current) use of anticoagulants; Z95.810 Presence of automatic (implantable) cardiac defibrillator
CPT/HCPCS: 36415; 80048; 80053; 82274; 82962; 85014; 85018; 85025; 85610; 86850; 86900; 86901; 86922; 97110; 97162; 97166; 97530; 97535; 97802; A4216

== ENCOUNTER 2023-10-01 09:16 | Outpatient (CLI) | payer MEDICARE, SELFPAY ==
[2023-10-01] VITALS (7 sets, daily range): BP systolic 102–120; BP diastolic 47–55; PULSE 60–61; RESP 17–18; TEMP 36.3–36.8; O2SAT 94–98
--- NOTE | 2023-10-01 15:20 | NURSING ---
Called report to Kirsty to tell her he is on his way back after 2 units of PRBC's.
== END 2023-10-01 15:15 | disposition home or self-care (01) ==
LOC: MS3OUT 09:18 → MS3 09:19
PROVIDERS: PCP Family Medicine; Referring Provider Family Medicine Geriatric Medicine; Visit Provider Family Medicine Geriatric Medicine
DX: D64.9 Anemia, unspecified (principal)
CPT/HCPCS: 36415; 36430; 86850; 86900; 86901; 86920; 86921; 86922; J7040; P9016

== ENCOUNTER 2023-10-05 11:39 | Day surgery (SDC) | payer MEDICARE, SELFPAY ==
[2023-10-05 11:45] VITALS: BP 110/51; PULSE 59; RESP 16; TEMP 37.2; O2SAT 96
[2023-10-05] MEDS: Lactated Ringers 1,000 ML 15 ML IV (11:51)
[2023-10-05 11:54] LABS: INR Fingerstick 1.3; Prothrombin Time Fingerstick 14.2 SEC (11.7-14.9)
--- NOTE | 2023-10-05 11:57 | PCM.HP.BLA ---
History and Physical Date of Admission: 10/05/23 Reason for Consultation: Anemia HPI Narrative: REBECCA ARRIOLA, is a 83-year-old male with a past medical history as outlined was admitted through the ED on 09/27/2023 with complaint of back pain and numbness and tingling both lower extremities. Patient had just been discharged the day before admission after being managed for acute GI bleed and had an EGD which showed abnormal esophageal motility was treated with injection of botulinum toxin as well as dilation of her moderate Schatzki ring. Biopsies were done for possible eosinophilic esophagitis. Patient has not been having any more problems with esophageal dysphagia. Patient went home but apparently he was very weak at home and could not ambulate well. He also had severe back pain which was chronic so he was brought back into the ED. He was admitted and managed for debility in the setting of chronic back pain. Patient was too weak to go home and so he and family opted for placement option. Physical therapy was consulted and he did work with physical therapy. He had CT of the lumbar spine which showed posterior spinal fusion with pedicle screws and rods from L4 through to S1 which appeared intact with no loosening of the hardware seen. Of note, patient was noted to be hypotensive during admission. This was asymptomatic. His blood pressure was mainly in the 90s and low 100 systolic. Of note it was also found that patient had on 2 buprenorphine patches when he came on instead of 1 patch. And on side effects of buprenorphine is hypotension so my concern was that hypotension may have been due to the 2 buprenorphine patches that he had on. His metoprolol was discontinued and patient was continued on his amiodarone and Lasix. He was discharged to nursing home facility on 09/29/2023. I was asked to see him on consult again because of decreasing hemoglobin. As per his significant other he still continues to smoke. He does have a history of thrombocytopenia along with anemia and leukopenia. His anemia is a macrocytic anemia. He still remains on blood thinners at this time. His hemoglobin was 6.7 and is up to 8.7 after blood transfusion. [facility] Medical History (Updated 09/29/23 @ 22:[address] Marty Robledo MD) Ambulates with cane Anemia Anemia due to chronic blood loss Anticoagulant long-term use Arthritis Asthma Atherosclerotic heart disease of [place] coronary artery without angina pectoris Atrial fibrillation Back pain due to injury CHF (congestive heart failure) Chronic airway obstruction Chronic anticoagulation Chronic cough Chronic pain Chronic pain syndrome CKD (chronic kidney disease) COPD (chronic obstructive pulmonary disease) COPD (chronic obstructive pulmonary disease) Coronary artery disease Erosion of pacemaker pocket due to and not concurrent with implantation of cardiac pacemaker Essential hypertension Former smoker GERD (gastroesophageal reflux disease) Heart attack HFrEF (heart failure with reduced ejection fraction) High cholesterol History of edema History of GI bleed History of heart attack History of pain when walking History of stress test Hx of fracture of ankle Hx of fracture of ankle Hypertension ICD (implantable cardioverter-defibrillator) in place Injury of back Injury of head and neck Intermittent complete heart block Ischemic cardiomyopathy Kidney disease senior living current use of anticoagulant 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 On home oxygen therapy Osteoporosis Paroxysmal atrial fibrillation Pericardial effusion after operative procedure Persistent atrial fibrillation Pure hypercholesterolemia Restless legs Secondary pulmonary arterial hypertension Sick sinus syndrome Spinal stenosis of lumbar region Stage 3a chronic kidney disease (CKD) Stroke Symptomatic bradycardia TIA (transient ischemic attack) Tobacco use disorder Wears dentures Wears glasses Home Medications albuterol sulfate 90 mcg/actuation breath activated powder inhaler 2 puff inhalation Q4H PRN Shortness Of Breath 09/25/15 [History Last Taken 08/23/22] cholecalciferol (vitamin D3) 25 mcg (1,000 unit) tablet 1,000 unit PO DAILY SUPPLEMENT 09/25/15 [History Last Taken 08/24/22] folic acid 1 mg tablet 1 mg PO QHS SUPPLEMENT 06/24/16 [History Last Taken 08/23/22] tiotropium 2.5 mcg-olodaterol 2.5 mcg/actuation mist for inhalation (Stiolto Respimat) 1 puff inhalation BID ASTHMA 06/18/21 [History Last Taken 08/24/22] ipratropium 0.5 mg-albuterol 3 mg (2.5 mg base)/3 mL nebulization soln 3 ml inhalation 4X/DAY SHORTNESS OF BREATH 11/25/21 [History Last Taken 04/06/22] nitroglycerin 0.4 mg sublingual tablet 0.4 mg sublingual Q5M PRN Chest Pain #25 tabs 09/17/22 [Rx Last Taken Unknown] rosuvastatin 40 mg tablet (Crestor) 40 mg PO DAILY cholesterol 03/29/23 [History Last Taken Unknown] furosemide 20 mg tablet 20 mg PO DAILY dose has been decreased. water pill #90 tabs 04/25/23 [Rx Last Taken Unknown] potassium chloride 10 mEq tablet,extended release 10 meq PO DAILY supplement #30 tabs 04/25/23 [Rx Last Taken Unknown] amiodarone 200 mg tablet 200 mg PO DAILY afib #90 tabs 04/28/23 [Rx Last Taken Unknown] empagliflozin 10 mg tablet (Jardiance) 10 mg PO DAILY heart health #90 tabs 04/28/23 [Rx Last Taken Unknown] ferrous sulfate 325 mg (65 mg iron) tablet 325 mg PO QODAY IRON SUPPLEMENT 30 days #0 tabs 09/26/23 [Rx Last Taken Unknown] lactulose 20 gram/30 mL oral solution 20 g (30 mL) PO TID liver 1 month #2,700 mL 09/26/23 [Rx Last Taken Unknown] pantoprazole 40 mg tablet,delayed release 40 mg PO BID ACID REFLUX 30 days #60 tabs 09/26/23 [Rx Last Taken Unknown] sennosides 8.6 mg-docusate sodium 50 mg tablet (Stool Softener-Stimulant Laxative) 2 tab PO BID stool softener #0 tabs 09/26/23 [Rx Last Taken Unknown] sucralfate 100 mg/mL oral suspension (Carafate) 1 g (10 mL) PO TID gerd 1 month #900 mL 09/26/23 [Rx Last Taken Unknown] zolpidem 10 mg tablet 5 mg (1/2 x 10 mg) PO QHS sleep 3 days #0 tabs 09/26/23 [Rx Last Taken Unknown] buprenorphine 20 mcg/hour weekly transdermal patch 1 patch transdermal QWEEK pain 09/27/23 [History Last Taken Unknown] nicotine 7 mg/24 hr daily transdermal patch (Nicoderm CQ) 1 patch transdermal DAILY smoking 09/27/23 [History Last Taken Unknown] warfarin 2 mg tablet See Rx Instructions PO .COMPLEX blood thinner 09/27/23 [History Last Taken Unknown] Allergy/AdvReac Type Severity Reaction Status Date / Time No Known Allergies Allergy Verified 09/26/23 22:26 Family History Son , age 44 from [place] CAD (coronary artery disease) Myocardial infarction Sudden cardiac deathBrother CAD (coronary artery disease) Pt states all nine of his siblings have heart problemsSister CAD (coronary artery disease) Patient states all nine of his siblings have heart problemsOther History of mechanical aortic valve replacement Surgical History Cardiac pacemaker in situ H/O cardiac catheterization H/O prosthetic aortic valve replacement History of coronary artery stent placement (~06/28/11) History of coronary artery stent placement History of esophagogastroduodenoscopy (EGD) (~10/2021) History of left heart catheterization History of lumbar fusion History of mechanical aortic valve replacement (~03/27/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 Hx of CABG Presence of biventricular implantable cardioverter-defibrillator (ICD) S/P CABG x 1 (~03/27/93) Status post cardiac surgery Social History household members: family and none housing: house Smoking Status: Current every day smoker tobacco type: cigarettes and smokeless tobacco alcohol intake: never substance use type: does not use caffeine: No ROS Constitutional Constitutional: Denies chills, fever(s) or weight gain ENT HEENT: Denies headache(s), nasal congestion or nasal discharge Cardiovascular Cardiovascular: Denies chest pain or palpitations Respiratory/Chest Respiratory/Chest: Denies cough, excessive phlegm production or shortness of breath with exertion Gastrointestinal Gastrointestinal: Denies abdominal pain, nausea or vomiting Genitourinary Genitourinary: Denies dysuria Musculoskeletal Musculoskeletal: Denies joint pain or joint swelling Integumentary Integumentary: Denies rash or wounds Neurologic Neurologic: Reports numbness, tingling and weakness; Denies focal weakness Psychiatric Psychiatric: Denies anxiety, auditory hallucinations, depression, homicidal ideation or suicidal ideation Physical Exam Const alert Constitutional Narrative: frail General Appearance: cooperative HEENT normocephalic Mouth: oral and palatal mucosa normal Eyes PERRL and EOMs intact bilaterally Neck supple, no JVD and no carotid bruits Lymph Lymphatic: no lymphadenopathy noted and no lymphedema noted Resp normal respiratory effort, normal air movement and clear to auscultation bilaterally Resp Narrative: mildly diminished breath sounds bibasally, no wheezes or crackles. On room air. Cardio regular rate and regular rhythm GI normal to inspection, nondistended, normoactive bowel sounds, non-tender and non-distended Extremity normal capillary refill General Extremity: Negative for edema Skin no rashes or lesions noted Skin Narrative: General Skin Exam: no breakdown Neuro oriented x3, CN's II-XII intact bilaterally, moves all extremities, no focal motor deficits, no sensory deficits noted and deep tendon reflexes 2+ bilaterally Sensorium / Orientation: awake, alert, oriented to person, oriented to place and oriented to time Speech: speech normal Motor Exam: strength 5/5 throughout and general weakness Psych affect normal Appearance: appropriate Medical Records Data Medical Nutrition Assessment Dietitian: Malnutrition Criteria Met Start: 09/30/23 12:28 Freq: Status: Active Protocol: Document 09/30/23 12:28 SLA (Rec: 09/30/23 12:28 SLA Desktop) Nutrition Malnutrition Evidence of Malnutrition Exists Yes Malnutrition (severe): Chronic Evidenced By Suboptimal Energy Intake ( Severe),Weight Loss (Severe), Physical Changes (Moderate) Clinical Problem Chronic Disease or Condition Related Malnutrition Etiology related to inadequate energy intake Signs/Symptoms as evidenced with <50% po intake of estimated nutritional needs and 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; 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 body Status Active Problem Recommendation Dietitian Recommendations/Changes Will liberalize diet to regular d/t signs and symptoms of malnutrition Will order 4 oz ensure plus high protein 4x/day w/ medpass Will order magic cup w/ lunch and dinner for increased nutrition if consumed Lab / Micro Data 10/02/23 15:55 10/03/23 05:17 Labs: Laboratory Results - last 24 hr 10/03/23 05:17: PT 17.9 H, INR 1.5, Sodium 145, Potassium 4.3, Chloride 111 H, Carbon Dioxide 29.0, Anion Gap 5, BUN 32 H, Creatinine 1.40 H, Estim Creat Clear Calc 34.55, Est GFR (MDRD) Af Amer 62, Est GFR (MDRD) Non-Af 51 L, BUN/Creatinine Ratio 22.9 H, Glucose 92, Calcium 8.6, Total Bilirubin 0.70, AST 73 H, ALT 129 H, Alkaline Phosphatase 134 H, Total Protein 5.2 L, Albumin 2.5 L, Globulin 2.7, Albumin/Globulin Ratio 0.9 10/03/23 06:29: POC Glucose 93 Assessment & Plan Assessment/Plan (1) GI bleed: PLAN: Plan The patient is an 83 y/o M came to ED for shortness of breath At rest, worse with exertion/Dyspnea on exertion and generalized weakness getting worse over the past 4 days. Patient could not walk after few steps . No nausea or vomiting. Denies hematemesis or coffee-ground emesis, melena or hematochezia. History of GI bleed in the past with anemia. Acute GI Bleed w/ resultant Acute Blood Loss Anemia on Chronic anemia/Fe deficiency anemia with associated mild hypotension with ongoing outpatient evaluation of note for possible liver fibrosis: EGD on 06/16/2023 Impressions : - Abnormal esophageal motility, suspicious for esophageal spasm. Injected with botulinum toxin. - Moderate Schatzki ring. Dilated. - Small hiatal hernia. - Normal second portion of the duodenum. - Biopsies were taken with a cold forceps for evaluation of eosinophilic esophagitis. Ordered CT abdomen/pelvis with oral contrast. Continue IV PPI. Hemoglobin 6.2/27%. Platelet count 117,000. Impression: - Normal esophagus. - A medium amount of food (residue) in the stomach. - Oozing gastric ulcers with pigmented material. Injected. Treated with a heater probe. - No gross lesions in the duodenal bulb. - Retained food in the duodenum. - No specimens collected. Severe constipation: Patient had multiple oral, rectal suppository including MiraLAX, senna S, Dulcolax 10 mg oral and suppository and soapsuds enema. Patient had 1 bowel movement. General surgery was consulted and they recommended CT scan abdomen pelvis. CT abdomen and pelvis individually reviewed and discussed with the surgeon. Left-sided fecal matter with the stretching of splenic flexure and left side of the colon. Patient has tenderness on the left side coincides with the CT findings. Soapsuds enema today. Lactulose added and discontinue MiraLAX as both are osmotic laxatives Patient had a capsule endoscopy that did show some signs of bleeding in the mid small bowel. He would benefit from a repeat upper endoscopy and he will need to go to tertiary care center for deep enteroscopy or IR guided therapy. I have examined the patient and the H&P has been reviewed. There are no clinical changes since date of exam.
[2023-10-05 13:00] VITALS: BP 110/51; BP 114/56; PULSE 60; RESP 16; TEMP 36.5; O2SAT 96
--- NOTE | 2023-10-05 13:02 | OP.EGD_ITS ---
Patient Name: Kash Montejo Procedure Date: 10/05/2023 12:33 PM Date of : 1940 Age: 83 Procedure: Upper GI endoscopy Indications: Iron deficiency anemia, Heme positive stool, Suspected upper gastrointestinal bleeding Providers: Fazal Muir DO Medicines: Monitored Anesthesia Care Patient Profile: This is an 83 year old male. Refer to note in patient chart for documentation of history and physical. Patient has symptoms. Complications: No immediate complications. Procedure: Pre-Anesthesia Assessment: - Prior to the procedure, a History and Physical was performed, and patient medications and allergies were reviewed. The patient is competent. The risks and benefits of the procedure and the sedation options and risks were discussed with the patient. All questions were answered and informed consent was obtained. Patient identification and proposed procedure were verified by the physician in the pre-procedure area. Mental Status Examination: alert and oriented. Airway Examination: normal oropharyngeal airway and neck mobility. Respiratory Examination: clear to auscultation. CV Examination: normal. Prophylactic Antibiotics: The patient does not require prophylactic antibiotics. Prior Anticoagulants: The patient has taken no anticoagulant or antiplatelet agents. ASA Grade Assessment: III - A patient with severe systemic disease. After reviewing the risks and benefits, the patient was deemed in satisfactory condition to undergo the procedure. The anesthesia plan was to use monitored anesthesia care (MAC). Immediately prior to administration of medications, the patient was re-assessed for adequacy to receive sedatives. The heart rate, respiratory rate, oxygen saturations, blood pressure, adequacy of pulmonary ventilation, and response to care were monitored throughout the procedure. The physical status of the patient was re-assessed after the procedure. After obtaining informed consent, the endoscope was passed under direct vision. Throughout the procedure, the patient's blood pressure, pulse, and oxygen saturations were monitored continuously. The Endoscope was introduced through the mouth, and advanced to the second part of duodenum. The upper GI endoscopy was accomplished without difficulty. The patient tolerated the procedure well. Scope In: 12:48:30 PM Scope Out: 12:53:31 PM Total Procedure Duration Time 0 hours 5 minutes 1 second Findings: Abnormal motility was noted in the lower third of the esophagus. The cricopharyngeus was normal. There is spasticity of the esophageal body. The distal esophagus/lower esophageal sphincter is spastic, but gives up passage to the endoscope. Tertiary peristaltic waves are noted. One 5 mm angiodysplastic lesion with no bleeding was found in the gastric body. Coagulation for bleeding prevention using heater probe was successful. A single 5 mm angiodysplastic lesion with bleeding was found in the duodenal bulb. Coagulation for hemostasis using heater probe was successful. Estimated blood loss was minimal. Impression: - Abnormal esophageal motility, suspicious for achalasia. 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 Treated with a heater probe. - A single bleeding angiodysplastic lesion in the duodenum. Treated with a heater probe. - No specimens collected. Recommendation: - Discharge patient to a residential. - Resume regular diet. - Continue present medications. Procedure Code(s): --- Professional --- 50698, Esophagogastroduodenoscopy, flexible, transoral; with control of bleeding, any method CPT copyright 2021 [employer]. All rights reserved. The codes documented in this report are preliminary and upon product craftsman review may be revised to meet current compliance requirements. Fazal Muir DO 10/05/2023 1:01:20 PM This report has been signed electronically. Number of Addenda: 0 Note Initiated On: 10/05/2023 12:33 PM
--- NOTE | 2023-10-05 13:02 | OP.CCLET_ITS ---
10/05/2023 Guillermo Pritchard MD [address] [place] [address] Re : Upper GI endoscopy procedure for Kash Montejo Dear Dr. Pritchard This procedure was performed on Thursday, October 05, 2023. My impressions and recommendations are as follows: Impressions : - Abnormal esophageal motility, suspicious for achalasia. 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 Treated with a heater probe. - A single bleeding angiodysplastic lesion in the duodenum. Treated with a heater probe. - No specimens collected. Recommendations : - Discharge patient to a intermediate. - Resume regular diet. - Continue present medications. My findings are described in the full procedure note, which is enclosed. If I can be of further assistance, please feel free to contact me at . Sincerely, Fazal Muir, 10/05/2023 1:01:20 PM This report has been signed electronically.
[2023-10-05 13:05] VITALS: BP 110/51; BP 111/55; PULSE 60; RESP 14; O2SAT 96
[2023-10-05 13:10] VITALS: BP 110/51; BP 112/52; PULSE 60; RESP 14; O2SAT 95
[2023-10-05 13:22] VITALS: BP 110/51; BP 112/52; PULSE 60; RESP 14; TEMP 36.5; O2SAT 95
[2023-10-05 13:34] VITALS: BP 110/51
--- NOTE | 2023-10-05 13:38 | SUR.PHASEII ---
report called to TCU nurse
== END 2023-10-05 13:41 | disposition home or self-care (01) ==
LOC: EN 11:41 → AC 11:41
PROVIDERS: PCP Family Medicine; Referring Provider Family Medicine; Visit Provider Internal Medicine Gastroenterology
PROC: 0DJ08ZZ Inspection of Upper Intestinal Tract, Via Natural or Artificial Opening Endoscopic (ICD-10-PCS; CPT 43235; principal; 2023-10-05 12:40)
DX: K31.811 Angiodysplasia of stomach and duodenum with bleeding (principal); J44.9 Chronic obstructive pulmonary disease, unspecified; I13.0 Hypertensive heart and chronic kidney disease with heart failure and stage 1 through stage 4 chronic kidney disease, or unspecified chronic kidney disease; I50.22 Chronic systolic (congestive) heart failure; I48.19 Other persistent atrial fibrillation; N18.31 Chronic kidney disease, stage 3a; M54.9 Dorsalgia, unspecified; I25.10 Atherosclerotic heart disease of native coronary artery without angina pectoris; D50.0 Iron deficiency anemia secondary to blood loss (chronic); E78.00 Pure hypercholesterolemia, unspecified; G89.29 Other chronic pain; Z98.1 Arthrodesis status; Z79.899 Other long term (current) drug therapy; Z79.01 Long term (current) use of anticoagulants; F17.210 Nicotine dependence, cigarettes, uncomplicated; F17.220 Nicotine dependence, chewing tobacco, uncomplicated; Z79.85 Long-term (current) use of injectable non-insulin antidiabetic drugs
CPT/HCPCS: 43255; 36416; 85610; J7120; J2405

== ENCOUNTER → 2023-10-13 | Outpatient (CLI) | payer MEDICARE, SELFPAY ==
[2023-10-13 15:28] LABS: Absolute Lymphocyte Count 0.47 X10^3/uL (0.83-4.51); Basophil# 0.06 X10^3/uL; Basophil% 1.2 % (0-1); Eosinophil# 0.09 X10^3/uL; Eosinophils% 1.8 % (0-5); Hematocrit 38.5 % (40-54); Hemoglobin 11.1 g/dL (13.0-16.5); Lymphocyte # 0.47 X10^3/ul (0.83-4.51); Lymphocyte % 9.3 % (19-41); Mean Corp Hgb Conc 28.8 g/dL (32-36); Mean Corpuscular Hgb 29.6 pg (27.0-32.0); Mean Corpuscular Volume 102.7 fL (80-94); Mean Platelet Vol. 11.5 fl (6.2-12.0); Monocyte# 0.39 X10^3/uL; Monocyte% 7.7 % (0-10); NRBC Flagged by Analyzer 0 % (0-5); Neutrophil # 4.02 X10^3/uL (2.7-7.7); Neutrophil % 79.6 % (47-70); POSITIVE DIFFERENTIAL YES; POSITIVE MORPHOLOGY YES; Platelet Count 188 K/mm3 (150-450); RBC Distribution Width CV 17.2 % (11.6-14.6); RBC Distribution Width SD 65.1 fl (35.1-43.9); Red Blood Count 3.75 M/mm3 (4.6-6.2); White Blood Count 5.1 K/mm3 (4.4-11.0)
[2023-10-13 15:51] LABS: Differential Indicated SCAN CRITERIA MET
[2023-10-13 15:55] LABS: PSA,Total- Diagnostic 1.57 ng/mL (0.0-4.0)
[2023-10-13 16:04] LABS: Platelet Estimate ADEQUATE (ADEQ); Platelet Morphology LARGE
[2023-10-13 16:05] LABS: Anisocytosis 1+; Macrocytosis 1+; Red Cell Morphology N CHROM NORMAL (NORM C&C)
== END | disposition home or self-care (01) ==
LOC: MFPLAB 12:10
PROVIDERS: PCP Family Medicine; Visit Provider Family Medicine
DX: N40.0 Benign prostatic hyperplasia without lower urinary tract symptoms (principal); D64.9 Anemia, unspecified
CPT/HCPCS: 36415; 84153; 85025

== ENCOUNTER → 2023-10-27 | Outpatient (CLI) | payer MEDICARE, SELFPAY ==
--- NOTE | 2023-10-27 14:00 | CT_ITS ---
STUDY: LOW DOSE CT LUNG CANCER SCREENING REASON FOR EXAM: Male, 83 years old. TOBACCO USE RADIATION DOSAGE (If Supplied By Facility): CTDIvol = ( 2.39 ) mGy, DLP = ( 89.36 ) mGycm TECHNIQUE: No contrast was administered. Low dose technique was utilized (average mAS-38 and kVp 120). 1.25 mm axial source images with a slice interval of 1.25-mm were reconstructed in lung windows. 2.5 mm axial source images with a slice interval of 2.5-mm were reconstructed in lung windows. 5.0 mm axial source images with a slice interval of 5.0-mm were reconstructed in soft tissue windows. COMPARISON: Comparison is made with prior examination dated August 16, 2021. NODULES: There is a 1.2 cm x 3 cm irregular density with areas of air bronchograms in the peripheral lateral aspect of the right upper lobe. This has progressed as compared to prior study. This may represent a focal area of scarring although a neoplastic process cannot be excluded. Correlation with the PET scan recommended. Emphysema: Scarring in the anterior aspect of the lingular segment of the left upper lobe. Emphysematous changes. Bullous formation in the right lower lobe with scarring in the right lower lobe. Endobronchial lesion: None Aorta: Atherosclerotic plaque formation. CORONARY ARTERIES: Coronary artery calcification is seen. Heart: A right-sided dual-chamber pacemaker is seen. Pulmonary artery: Unremarkable Mediastinal nodes: Unremarkable Other chest and abdominal findings: CT/Low Dose CT Lung Screening IMPRESSION: Lung-RADS category 4B - Chest CT with or without contrast, PET/CT and/or tissue sampling can be obtained depending on the probability of malignancy and comorbidities. IMPORTANT NOTES FOR USE: ACR Lung-RADS Version 1.1 Assessment Categories Release Date: 2018 Category: Coded 0-4 bases on nodule(s) with highest degree of suspicion. Negative screen is defined as categories 1 and 2; a positive screen is defined as categories 3 and 4. Category 3 and 4A nodules that are unchanged on interval CT should be coded as category 2, and individuals returned to screening in 12 months. Category 4X: Category 3 or 4 nodules with additional imaging findings that increase the suspicion of lung cancer, such as spiculation, GGN that doubles in size in 1 year, enlarged lymph notes, etc. Category Modifiers: S (significant finding unrelated to lung cancer) Electronically Signed: Tyler Early MD at 15:31 EDT ,
== END | disposition home or self-care (01) ==
LOC: CT 13:53
PROVIDERS: PCP Family Medicine; Referring Provider Family Medicine; Visit Provider Family Medicine
DX: F17.210 Nicotine dependence, cigarettes, uncomplicated (principal)
CPT/HCPCS: 71271

== ENCOUNTER → 2023-11-01 | Outpatient (CLI) | payer MEDICARE, SELFPAY ==
[2023-11-01 12:21] LABS: Platelet Count 127 K/mm3 (150-450)
[2023-11-01 12:26] LABS: International Normalized Ratio 2.2; Prothrombin Time (Protime)PT. 24.6 SECONDS (11.7-14.9)
[2023-11-01 12:27] LABS: Partial Thromboplast Time 31.2 Seconds (24.1-36.2)
== END | disposition home or self-care (01) ==
LOC: LAB 11:46
PROVIDERS: PCP Family Medicine; Referring Provider Internal Medicine Critical Care Medicine; Visit Provider Internal Medicine Critical Care Medicine
DX: R91.1 Solitary pulmonary nodule (principal); I50.9 Heart failure, unspecified
CPT/HCPCS: 36415; 85049; 85610; 85730

== ENCOUNTER 2023-11-04 09:00 | Day surgery (SDC) | payer MEDICARE, SELFPAY ==
--- NOTE | 2023-11-04 | LES_PTH ---
PATIENT: REBECCA ARRIOLA I LOC: [facility] [place] U#:[id number] AGE/SX: 83/M ROOM: RE11/04/[address]: Dr. Madyson Morrison MD : [id number] BED: DIS: 11/04/2023 SPEC #: [id number] RECD: 11/04/23 13:55 STATUS: ANYI REStefan #: [id number] ANGEL: 11/04/23 00:[address]: Madyson Morrison DEPT: SURGICAL PATHOLOGY RECD BY: [place] ENTERED: 11/07/23 10:20 SP TYPE: Lesion OTHR DR: Dr. Guillermo Pritchard MD Tissues: Skin of forearm, NOS Procedures: Surgery Specimen Level IV HEADER OPERATION: Excision lesion right forearm (2.0cm) PRE-OP DIAGNOSIS: Neoplasm of uncertain behavior TISSUE SUBMITTED: Right forearm lesion MICROSCOPIC DIAGNOSIS Right forearm lesion, excisional biopsy: Basal cell carcinoma with extensive ulceration and associated acute inflammation, completely excised. Extensive solar elastosis. / 11/08/2023 MICROSCOPIC DESCRIPTION Slides are reviewed. GROSS DESCRIPTION Received in fixative is one container labeled with the patient's name and designated Right forearm lesion. The specimen consists of a frausto white skin ellipse measuring 1.5 x 1.0 x 0.4cm. An ulcerated lesion is noted on the surface measuring 0.7 x 0.5cm. The specimen is inked, serially sectioned and submitted entirely in one cassette. / 11/07/2023 TC:0 CPT:66757
[2023-11-04 09:23] VITALS: BP 132/61; PULSE 60; RESP 16; TEMP 36.7; O2SAT 99; BMI 19.3
--- NOTE | 2023-11-04 10:23 | PCM.HP.BLA ---
History and Physical Date of Admission: 11/04/23 The patient is examined and there are no changes from the H&P dated 10/19/2023. The patient presents for excision of a suspicious lesion of his right forearm. Informed consent is obtained. Assessment & Plan Assessment/Plan (1) Neoplasm of uncertain behavior of skin: PLAN: For excision lesion of right forearm with submission for pathologic evaluation. The patient is aware that further intervention may be necessary depending on the resulting pathology.
[2023-11-04] MEDS: Lidocaine 1% /Epi 1:100 9 ML, Sodium Bicarbonate 1 MEQ OPERA.SITE (11:09)
[2023-11-04 11:13] VITALS: BP 119/62; BP 124/81; O2SAT 96; O2SAT 97; O2SAT 98; O2SAT 99
--- NOTE | 2023-11-04 11:23 | DCINST_ITS ---
Discharge Instructions Dressing / Incision Additional Dressing/Incision Instructions:: Elevate your right arm is much as possible to help reduce swelling. May loosen the wrap if it is too tight. Keep the wrap dry. Take the oral antibiotic (Keflex) 2 times a day until finished. Follow Up Care Please Follow Up With: Madyson Morrison MD When: 1 week Test Results: Test results from this visit will be discussed in further detail at your follow- up appointment, if applicable. Discharge Plan Admission Attending Provider: Madyson Morrison Primary Care Provider: Guillermo Pritchard Discharge Orders/Prescriptions Prescriptions: New cephalexin 500 mg capsule 500 mg PO BID 5 Days Qty: 10 0RF No Action nitroglycerin 0.4 mg tablet, sublingual 0.4 mg SUBLINGUAL Q5M PRN (Reason: Chest Pain) Qty: 25 3RF metoprolol succinate 100 mg tablet extended release 24 hr 100 mg PO BID pregabalin 75 mg capsule 75 mg PO TID acetaminophen [Tylenol] 325 mg tablet 650 mg PO Q6H PRN clopidogrel 75 mg tablet 75 mg PO DAILY Rx Instructions: 03/24/23- 03/19/2024 Asmanex HFA 100 mcg/actuation HFA aerosol inhaler 2 puff inhalation BID Rx Instructions: taken starting 06/18/2021. isosorbide mononitrate 30 mg tablet extended release 24 hr 30 mg PO DAILY ipratropium-albuterol 0.5 mg-3 mg(2.5 mg base)/3 mL solution for nebulization 3 ml inhalation Q6H PRN Rx Instructions: starting 11/02/2016. cholecalciferol (vitamin D3) 1,000 UNIT tablet 1,000 unit PO DAILY albuterol sulfate 90 MCG aerosol powdr breath activated 2 puff INHALATION Q4H PRN (Reason: Shortness Of Breath) Patient Comments: folic acid 1 MG tablet 1 mg PO QHS Stiolto Respimat 2.5-2.5 mcg/actuation Mist 1 puff INHALATION BID rosuvastatin [Crestor] 40 mg tablet 40 mg PO DAILY lactulose 20 gram/30 mL Solution 20 g PO TID 30 Days Qty: 2700 2RF Rx Instructions: For constipation. Hold if more than 2 complete BM per day ferrous sulfate 325 mg (65 mg iron) tablet 325 mg PO QODAY 30 Days Qty: 0 0RF Patient Comments: iron supplement zolpidem 10 mg tablet 5 mg PO QHS 3 Days Qty: 0 0RF Patient Comments: TAKE 1 TABLET BY MOUTH EVERY DAY warfarin 2 mg tablet See Rx Instructions PO .COMPLEX Protocol: Dose Management Condition: Tuesday Dose/Route: 2 mg Instruction: 1 x 2 mg tablet Condition: Tuesday Dose/Route: 2 mg Instruction: 1 x 2 mg tablet Condition: Tuesday Dose/Route: 5 mg Instruction: 1 x 5 mg tablet Condition: Tuesday Dose/Route: 2 mg Instruction: 1 x 2 mg tablet Condition: Dose/Route: 5 mg Instruction: 1 x 5 mg tablet Condition: Tuesday Dose/Route: 2 mg Instruction: 1 x 2 mg tablet Condition: Tuesday Dose/Route: 5 mg Instruction: 1 x 5 mg tablet Protocol Text: Adjustment Start Date: 11/03/23 INR Value: 2.2 INR Date: 11/01/23 Recheck Date: 11/10/23 Patient Comments: prescription changed to 4mg daily until INR recheck d/t patient confusion 0 09/26/2023 Rx Instructions: 5mg orally , , and Tue; takes 2mg on Tue, , Tue, and Sun as directed buprenorphine 20 mcg/hour patch weekly 1 patch transdermal QWEEK Patient Comments: has a patch on now 09/27/2023 nicotine 7 mg/24 hr Patch 24 Hour 7 mg transdermal DAILY 30 Days Qty: 30 0RF sucralfate 1 gram Tablet 1 g PO TID@0700,1100,1600 30 Days Qty: 90 0RF ascorbic acid (vitamin C) 500 mg Tablet 500 mg PO DAILY 30 Days Qty: 30 0RF pantoprazole 40 mg Tablet,Delayed Release (Dr/Ec) 40 mg PO BID 30 Days Qty: 60 0RF potassium chloride 10 mEq tablet extended release 10 meq PO DAILY Qty: 30 11RF amiodarone 200 mg tablet 200 mg PO DAILY Qty: 90 3RF Hold Instructions: not taking Jardiance 10 mg tablet 10 mg PO DAILY Qty: 90 3RF Hold Instructions: Hold for 3 days. Patient Comments: not sure when it should be restarted warfarin 5 mg tablet 5 mg PO .COMPLEX Protocol: Dose Management Condition: Tuesday Dose/Route: 2 mg Instruction: 1 x 2 mg tablet Condition: Tuesday Dose/Route: 2 mg Instruction: 1 x 2 mg tablet Condition: Tuesday Dose/Route: 5 mg Instruction: 1 x 5 mg tablet Condition: Tuesday Dose/Route: 2 mg Instruction: 1 x 2 mg tablet Condition: Dose/Route: 5 mg Instruction: 1 x 5 mg tablet Condition: Tuesday Dose/Route: 2 mg Instruction: 1 x 2 mg tablet Condition: Tuesday Dose/Route: 5 mg Instruction: 1 x 5 mg tablet Protocol Text: Adjustment Start Date: 11/03/23 INR Value: 2.2 INR Date: 11/01/23 Recheck Date: 11/10/23 Rx Instructions: 5 mg orally on , , Sat: takes a 2mg tablet all other days: or as directed; enoxaparin 60 mg/0.6 mL syringe 60 mg subcut Q12H Qty: 6 3RF Referrals / Follow Up: Guillermo Pritchard MD [Primary Care Provider] - Disposition Disposition (needs filled in before D/C Order can be placed): Home, Self Care
--- NOTE | 2023-11-04 11:26 | PCM.OPRPT ---
Problems Associated Problem List Diagnoses (1) Neoplasm of uncertain behavior of skin: Report of Operation Date of Procedure: 11/04/23 Pre-Operative Diagnosis: Neoplasm uncertain behavior right forearm Post-Operative Diagnosis: Same Surgery/Procedure Performed:: Excision lesion right forearm (2.0 cm) Surgeon: Madyson Morrison Type of Anesthesia: Local Specimen's removed: Neoplasm right forearm Estimated Blood Loss (mL): Minimal Description of Procedure: The patient presents with a new onset of a lesion of the right forearm. He presents for excision of the lesion with submission for pathologic evaluation. The patient is brought to the operating room and placed on the operative room table in the supine position. The right forearm is prepped and draped in the usual sterile fashion. 1% Xylocaine with epinephrine is used for local anesthetic. Following this, the site is elliptically excised and passed off the operative field to be sent to pathology. Hemostasis is controlled with cautery. The incision is then closed with a combination of running horizontal mattress along with a running simple suture using 4-0 chromic. Xeroform gauze and Coban wrap is used to dress the site. He tolerated the procedure well was taken to the recovery area in an awake and stable condition. Needle and sponge counts are correct. Complications None Admit VTE Documentation VTE Mechan Device Prophylaxis: None Reason prophylaxis not ordered:: Treatment Not Indicated
[2023-11-04 11:31] VITALS: BP 106/58; BP 132/61; PULSE 60; RESP 16; TEMP 36.8; O2SAT 97
[2023-11-04 11:45] VITALS: BP 132/61
== END 2023-11-04 11:56 | disposition home or self-care (01) ==
LOC: SDC 09:01 → AC 09:02
PROVIDERS: PCP Family Medicine; Referring Provider Plastic Surgery; Visit Provider Plastic Surgery
PROC: (CPT 11602; principal; 2023-11-04 10:45)
DX: C44.612 Basal cell carcinoma of skin of right upper limb, including shoulder (principal); L98.499 Non-pressure chronic ulcer of skin of other sites with unspecified severity; I13.0 Hypertensive heart and chronic kidney disease with heart failure and stage 1 through stage 4 chronic kidney disease, or unspecified chronic kidney disease; I50.22 Chronic systolic (congestive) heart failure; J44.9 Chronic obstructive pulmonary disease, unspecified; I48.0 Paroxysmal atrial fibrillation; N18.31 Chronic kidney disease, stage 3a; L57.8 Other skin changes due to chronic exposure to nonionizing radiation; Z79.899 Other long term (current) drug therapy; Z79.01 Long term (current) use of anticoagulants; I25.10 Atherosclerotic heart disease of native coronary artery without angina pectoris; E78.00 Pure hypercholesterolemia, unspecified; Z95.5 Presence of coronary angioplasty implant and graft; F17.210 Nicotine dependence, cigarettes, uncomplicated; F17.220 Nicotine dependence, chewing tobacco, uncomplicated; Z95.2 Presence of prosthetic heart valve; Z95.0 Presence of cardiac pacemaker
CPT/HCPCS: 11602; 00400; 88305

== ENCOUNTER → 2023-11-17 | Outpatient (CLI) | payer MEDICARE, SELFPAY ==
[2023-11-17 10:52] LABS: International Normalized Ratio 2.9; Prothrombin Time (Protime)PT. 29.8 SECONDS (11.7-14.9)
== END | disposition home or self-care (01) ==
PROVIDERS: PCP Family Medicine; Referring Provider Internal Medicine Cardiovascular Disease; Visit Provider Internal Medicine Cardiovascular Disease
DX: I25.10 Atherosclerotic heart disease of native coronary artery without angina pectoris (principal); Z79.01 Long term (current) use of anticoagulants
CPT/HCPCS: 36415; 85610

== ENCOUNTER 2023-11-30 08:10 | Outpatient (CLI) | payer MEDICARE, SELFPAY ==
--- NOTE | 2023-11-30 08:20 | CT_ITS ---
STUDY: CT CHEST WITHOUT CONTRAST REASON FOR EXAM: Male, 83 years old. Lung Nodule RADIATION DOSAGE (If Supplied By Facility): CTDIvol = ( 10 ) mGy, DLP = ( 454.54 ) mGycm TECHNIQUE: Transaxial imaging was performed without the administration of intravenous contrast material. Individualized dose optimization techniques were used for this CT. COMPARISON: No relevant priors. FINDINGS: CHEST The patient was scheduled for biopsy of a irregular nodular density in the right upper lobe. Due to overlying right sided pacemaker and wires connected to the pacemaker, access was not possible. CT/Biopsy/Inj or Needle Placement IMPRESSION: Due to the location of the nodule in the right upper lobe and the overlying right anterior pacemaker, no safe access was available for safe biopsy. Electronically Signed: Tyler Early MD at 8:57 EDT ,
[2023-11-30 08:39] LABS: Platelet Count 157 K/mm3 (150-450)
[2023-11-30 08:48] VITALS: BP 136/52; PULSE 60; RESP 17; TEMP 36.6; O2SAT 99; BMI 19.1
[2023-11-30 08:49] LABS: International Normalized Ratio 1.5; Partial Thromboplast Time 37.5 Seconds (24.1-36.2); Prothrombin Time (Protime)PT. 18.4 SECONDS (11.7-14.9)
== END 2023-11-30 23:59 | disposition home or self-care (01) ==
PROVIDERS: Nurse Practitioner Acute Care; PCP Family Medicine; Referring Provider Internal Medicine Critical Care Medicine; Visit Provider Internal Medicine Critical Care Medicine
DX: R91.1 Solitary pulmonary nodule (principal); Z79.02 Long term (current) use of antithrombotics/antiplatelets; Z79.01 Long term (current) use of anticoagulants; Z95.0 Presence of cardiac pacemaker
CPT/HCPCS: 32408; 36415; 77012; 85049; 85610; 85730; J7050

== ENCOUNTER → 2024-01-27 | Outpatient (CLI) | payer MEDICARE, SELFPAY | END | disposition home or self-care (01) | LOC: PSN 07:52 | PROVIDERS: PCP Family Medicine; Referring Provider Thoracic Surgery (Cardiothoracic Vascular Surgery); Visit Provider Thoracic Surgery (Cardiothoracic Vascular Surgery) | DX: R91.1 Solitary pulmonary nodule (principal) | CPT/HCPCS: 94060; 94726; 94729 ==

== ENCOUNTER → 2024-07-05 | Outpatient (CLI) | payer MEDICARE, SELFPAY ==
--- NOTE | 2024-07-05 15:03 | RAD_ITS ---
EXAM: XR LEFT ANKLE COMPLETE, 3 OR MORE VIEWS CLINICAL INDICATION: PAIN TECHNIQUE: Frontal, lateral and oblique views of the left ankle. COMPARISON: No relevant prior studies available. FINDINGS: BONES/JOINTS: Chronic appearing deformity of the medial lateral malleoli related to old fractures. Defects within the distal fibular shaft related to prior surgical fixation. No acute fracture or subluxation. No significant arthritic change. SOFT TISSUES: Normal. No soft tissue swelling or gas. No radiopaque foreign body. RAD/Ankle min 3 Views IMPRESSION: No acute abnormality. Electronically Signed: Yong Alberto MD at 16:18 EST ,
== END | disposition home or self-care (01) ==
LOC: MTRAD 15:02
PROVIDERS: PCP Family Medicine; Referring Provider Family Medicine; Visit Provider Family Medicine
DX: M25.572 Pain in left ankle and joints of left foot (principal)
CPT/HCPCS: 73610

== ENCOUNTER 2024-07-24 18:11 | Emergency (ER) | payer MEDICARE, SELFPAY ==
[2024-07-24 18:12] VITALS: PULSE 62; RESP 22; TEMP 36.7; O2SAT 94; BMI 19.2
[2024-07-24] MEDS: Ondansetron 4 MG/2 ML Vial IV (18:50)
--- NOTE | 2024-07-24 18:50 | CT_ITS ---
STUDY: CT LUMBAR SPINE WITHOUT CONTRAST REASON FOR EXAM: Male, 84 years old. Back pain, lung cancer, weakness lower extremities -- Absent reflex patella and ankle, decreased rectal RADIATION DOSAGE (If Supplied By Facility): CTDIvol = ( 13.82 ) mGy, DLP = ( 563.80 ) mGycm TECHNIQUE: The patient was scanned in a multi detector CT scanner. High resolution transaxial imaging was performed. Images were obtained from T12 to sacrum. Sagittal and coronal images were reconstructed. Individualized dose optimization techniques were used for this CT. COMPARISON: September 27, 2023 FINDINGS: Normal lumbar lordosis. There is stable grade 1 retrolisthesis at L5-S1 There is no substantial scoliosis. There is demineralization of the vertebrae of the lumbar spine. There is no acute fracture. There is posterior fusion with bilateral pedicle screws from L4 through S1. L1-2: Mild spurring. Facet spurring. No canal stenosis. Neural foramina are patent L2-3: Spurring. Facet spurring. No canal stenosis. Neural foramina are patent. L3-4: Spurring. Facet spurring. No canal stenosis. Neural foramina are patent L4-5: Posterior fusion. Mild spurring. No canal stenosis. Neural foramina are patent. L5-S1: Posterior fusion. Mild spurring. No canal stenosis. Neural foramina are patent. There is postoperative change in the soft tissues. There is a horseshoe kidney. There is 0.6 cm stone on the right. There is atherosclerotic calcification of the aorta. CT/Spine Lumbar without Contrast IMPRESSION: Degenerative and postoperative change. No acute fracture. Electronically Signed: Yusuf Lo MD at 20:46 EST ,
--- NOTE | 2024-07-24 18:50 | CT_ITS ---
STUDY: CT THORACIC SPINE WITHOUT CONTRAST REASON FOR EXAM: Male, 84 years old. Evaluate for metastatic lesion, neurodeficit lower RADIATION DOSAGE (If Supplied By Facility): CTDIvol = ( 18.42 ) mGy, DLP = ( 691.71 ) mGycm TECHNIQUE: The patient was scanned in a multi detector CT scanner. High resolution imaging was performed. Images were obtained from C7-L1 . Sagittal and coronal images were reconstructed. Individualized dose optimization techniques were used for this CT. COMPARISON: None. FINDINGS: Normal visualized cervical spine. Normal kyphosis of the thoracic spine. There is no substantial scoliosis. There is demineralization of the thoracic vertebrae. There is a T7 compression fracture with 20% loss of height. There is multilevel degenerative disc disease with loss of the disc space heights. There is emphysema and fibrotic densities. There is right upper lung mass and/or consolidation. Sternotomy wires and pacemaker wires. There is aortic valve prosthesis. There are coronary artery calcifications. There is 4.5 cm aneurysmal dilatation of the ascending aorta. CT/Spine Thoracic without Contras IMPRESSION: Degenerative change. T7 compression fracture of uncertain age. Electronically Signed: Yusuf Lo MD at 21:00 EST ,
[2024-07-24] MEDS: Morphine 4 MG/ML Syringe IV (18:52)
[2024-07-24 19:02] LABS: Absolute Lymphocyte Count 0.33 X10^3/uL (0.83-4.51); Absolute Neutrophil Count 7.8 X10^3/uL (2.0-7.7); Basophil# 0.01 X10^3/uL; Basophil% 0.1 % (0-1); Hematocrit 28.5 % (40-54); Hemoglobin 8.6 g/dL (13.0-16.5); Lymphocyte # 0.33 X10^3/ul (0.83-4.51); Lymphocyte % 3.8 % (19-41); Mean Corp Hgb Conc 30.2 g/dL (32-36); Mean Corpuscular Hgb 29.1 pg (27.0-32.0); Mean Corpuscular Volume 96.3 fL (80-94); Mean Platelet Vol. 11.1 fl (6.2-12.0); Monocyte# 0.51 X10^3/uL; Monocyte% 5.8 % (0-10); NRBC Flagged by Analyzer 0 % (0-5); Neutrophil # 7.84 X10^3/uL (2.7-7.7); Neutrophil % 89.3 % (47-70); POSITIVE DIFFERENTIAL YES; Platelet Count 147 K/mm3 (150-450); RBC Distribution Width CV 17.5 % (11.6-14.6); RBC Distribution Width SD 59.7 fl (35.1-43.9); Red Blood Count 2.96 M/mm3 (4.6-6.2); White Blood Count 8.8 K/mm3 (4.4-11.0)
--- NOTE | 2024-07-24 19:06 | ED.RN ---
Patient transported to CT
[2024-07-24 19:27] LABS: ALB/GLOB Ratio 0.7 RATIO (0.9-2.4); AST(SGOT) 444 U/L (15-37); Alanine Aminotransfer ALT/SGPT 244 U/L (16-61); Albumin, Serum 2.6 g/dL (3.2-5.0); Alkaline Phosphatase 120 U/L (45-117); Anion Gap 7 (5-15); BUN 64 mg/dL (7-18); BUN/Creat Ratio 16.9 RATIO (10-20); Calcium,Total 9.1 mg/dL (8.5-10.1); Chloride 108 mmol/L (98-107); Creatinine, Serum 3.79 mg/dL (0.70-1.30); EST Glomerular Filtration Rate 16 mL/min (>60); Est Glom Filt Rate - Afr Amer 20 mL/min (>60); Estimated Creatinine Clearance 12.03 ml/min; Globulin 3.5 g/dL (2.2-4.2); Glucose 113 mg/dL (74-106); Potassium 4.2 mmol/L (3.5-5.1); Protein, Total 6.1 g/dL (6.4-8.2); Sodium Level 141 mmol/L (136-145)
[2024-07-24 20:11] VITALS: BP 134/60; PULSE 60; RESP 14; O2SAT 97
--- NOTE | 2024-07-24 20:27 | EDS_ITS ---
HPI History of Present Illness Chief Complaint: General Illness Detail of Chief Complaint: Generalized weakness, difficulty using legs history of cancer Informant: patient and family Onset/Context/Timing Onset: Days (Weakness and trouble walking past couple of days.) Context: Sudden Onset Timing: Continuous Quality: Generalized weakness, difficulty ambulating, 45 pound weight loss, also com Location: Generalized Current Severity: Mild Maximum Severity: Moderate Worsened by: Unknown Relieved by: Nothing Associated Symptoms Associated Symptoms: Per HPI narrative Narrative Narrative: Patient is an 84-year-old male. He was diagnosed with a right upper lobe nodule. He did not proceed with workup and biopsy. He declined therapy. He presents because of generalized weakness, poor p.o. intake, difficulty using his legs with altered sensation of his legs. This started a couple days ago. He denies incontinence of stool. He does endorse difficulty urinating. No known history of BPH. He denies fever, chills night sweats. He denies headache, visual, ocular auditory symptoms. He denies chest pain, shortness of breath. Does have a cough which is chronic. He denies abdominal pain. He does endorse low back pain. He had surgery in the 90s. Prior similar symptoms: No Recent Illness/Hospitalization: No PFSH PFS Medical History Acute insomnia Lung mass History of bleeding ulcers History of echocardiogram Cardiology follow-up encounter Anemia CKD (chronic kidney disease) HFrEF (heart failure with reduced ejection fraction) Kidney disease GERD (gastroesophageal reflux disease) Former smoker ICD (implantable cardioverter-defibrillator) in place Coronary artery disease Anemia Intermittent complete heart block Pericardial effusion after operative procedure Erosion of pacemaker pocket due to and not concurrent with implantation of cardiac pacemaker Chronic pain COPD (chronic obstructive pulmonary disease) Asthma Symptomatic bradycardia Persistent atrial fibrillation Sick sinus syndrome Osteoporosis On home oxygen therapy Atrial fibrillation Stage 3a chronic kidney disease (CKD) Chronic anticoagulation Back pain due to injury Stroke Injury of head and neck CHF (congestive heart failure) Heart attack Macrocytic anemia Anticoagulant long-term use Wears glasses Wears dentures Ambulates with cane Arthritis High cholesterol Restless legs Injury of back TIA (transient ischemic attack) Chronic cough History of pain when walking History of edema History of stress test Hypertension History of heart attack Hx of fracture of ankle Hx of fracture of ankle Paroxysmal atrial fibrillation Pure hypercholesterolemia Essential hypertension Non-rheumatic tricuspid valve insufficiency Secondary pulmonary arterial hypertension Ischemic cardiomyopathy Atherosclerotic heart disease of [place] coronary artery without angina pectoris retirement current use of anticoagulant History of GI bleed COPD (chronic obstructive pulmonary disease) Chronic pain syndrome Tobacco use disorder Spinal stenosis of lumbar region Chronic airway obstruction Anemia due to chronic blood loss Home Medications ?Medication ?Instructions ?Recorded ?Last Taken ?Type albuterol sulfate 90 mcg/actuation 2 puff inhalation Q4H PRN 09/25/15 08/23/22 History breath activated powder inhaler Shortness Of Breath folic acid 1 mg tablet 1 mg PO QHS SUPPLEMENT 06/24/16 08/23/22 History tiotropium 2.5 mcg-olodaterol 2.5 1 puff inhalation BID ASTHMA 06/18/21 08/24/22 History mcg/actuation mist for inhalation (Stiolto Respimat) nitroglycerin 0.4 mg sublingual 0.4 mg sublingual Q5M PRN Chest 09/17/22 Unknown Rx tablet Pain #25 tabs rosuvastatin 40 mg tablet (Crestor) 40 mg PO DAILY cholesterol 03/29/23 Unknown History amiodarone 200 mg tablet 200 mg PO DAILY afib #90 tabs 04/28/23 11/04/23 Rx buprenorphine 20 mcg/hour weekly 1 patch transdermal QWEEK pain 09/27/23 Unknown History transdermal patch pantoprazole 40 mg tablet,delayed 40 mg PO BID 30 days #60 tabs 10/07/23 Unknown Rx release acetaminophen 325 mg tablet 650 mg PO Q6H PRN 10/31/23 Unknown History (Tylenol) clopidogrel 75 mg tablet 75 mg PO DAILY 10/31/23 11/04/23 History mometasone 100 mcg/actuation HFA 2 puff inhalation BID 10/31/23 Unknown History aerosol inhaler (Asmanex HFA) ferrous sulfate 325 mg (65 mg 325 mg PO BID IRON SUPPLEMENT 11/17/23 Unknown History iron) tablet zolpidem 10 mg tablet 10 mg PO QHS sleep 11/30/23 Unknown History furosemide 20 mg tablet 20 mg PO DAILY #90 tabs 01/11/24 Unknown Rx potassium chloride 10 mEq 10 meq PO DAILY supplement #90 tabs 01/11/24 Unknown Rx tablet,extended release sucralfate 1 gram tablet 1 g PO TID #90 TABLETS 01/11/24 Unknown Rx warfarin 2 mg tablet 2 mg PO .COMPLEX blood thinner #90 01/24/24 Unknown Rx tabs warfarin 5 mg tablet 5 mg PO .COMPLEX #90 tabs 05/31/24 Unknown Rx albuterol sulfate 2.5 mg/3 mL 2.5 mg inhalation Q6H 06/07/24 Unknown History (0.083 %) solution for nebulization ascorbic acid (vitamin C) 500 mg 500 mg PO BID 06/07/24 Unknown History tablet cholecalciferol (vitamin D3) 50 50 mcg PO QDAY 06/07/24 Unknown History mcg (2,000 unit) tablet empagliflozin 25 mg tablet 12.5 mg PO QAM 06/07/24 Unknown History (Jardiance) lactulose 10 gram/15 mL oral 30 ml PO TID PRN 06/07/24 Unknown History solution metoprolol succinate 50 mg 50 mg PO QHS 06/07/24 Unknown History tablet,extended release 24 hr oxycodone-acetaminophen 5 mg-325 1 tab PO Q6H PRN PRN pain 5 days 07/24/24 Unknown Rx mg tablet #20 TABLETS Allergy/AdvReac Type Severity Reaction Status Date / Time colestipol AdvReac Other Verified 06/07/24 10:05 levofloxacin AdvReac Other Verified 06/07/24 10:05 sulfamethoxazole (From AdvReac Other Verified 06/07/24 10:05 Sulfamethoxazole-Trimethoprim) trimethoprim (From AdvReac Other Verified 06/07/24 10:05 Sulfamethoxazole-Trimethoprim) Family History Son , age 44 from [place] CAD (coronary artery disease) Myocardial infarction Sudden cardiac Brother CAD (coronary artery disease) Pt states all nine of his siblings have heart problems Hypertension Heart disease Kidney disease Sister CAD (coronary artery disease) Patient states all nine of his siblings have heart problems Heart disease Hypertension Father Heart disease Hypertension Other History of mechanical aortic valve replacement Surgical History History of ankle surgery Hx of esophagogastroduodenoscopy Presence of biventricular implantable cardioverter-defibrillator (ICD) (03/22/23) Hx of CABG Cardiac pacemaker in situ H/O prosthetic aortic valve replacement History of prosthetic heart valve History of esophagogastroduodenoscopy (EGD) (~10/2021) Status post cardiac surgery H/O cardiac catheterization History of lumbar fusion History of mechanical aortic valve replacement (~03/27/93) History of coronary artery stent placement (03/11/23) History of left heart catheterization History of aortic valve replacement (~03/27/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) Social History household members: none housing: house Smoking Status: Current every day smoker tobacco type: cigarettes and smokeless tobacco how long ago did patient quit smokin/2 pack daily alcohol intake: never substance use type: does not use caffeine: No seatbelt use: always additional social history: pt denies marijuana use, denies vaping, denies edibles, denies aspirin use, denies ibuprofen use. ROS ROS ED Constitutional Constitutional ED: Reports sweats and weight loss; Denies chills, fever(s) or subjective Eyes Eyes: Denies blurry vision or change in vision ENT ENT ED: Denies ear pain, rhinorrhea or sore throat Cardiovascular Cardiovascular: Denies chest pain, orthopnea, palpitations or paroxysmal nocturnal dyspnea Respiratory/Chest Respiratory/Chest: Reports cough and dyspnea; Denies dyspnea on exertion, orthopnea or paroxysmal nocturnal dyspnea Gastrointestinal Gastrointestinal: Reports diarrhea; Denies abdominal pain, nausea or vomiting Genitourinary Genitourinary ED: Reports other Details: Endorses decreased urine output and difficulty urinating. ; Denies dysuria, hematuria or urinary frequency Musculoskeletal Musculoskeletal: Reports back pain and neck pain; Denies arthralgias or myalgias Integumentary Denies abscess or rash Neurologic Neurologic: Reports paresthesias RLE and LLE and weakness; Denies headache(s) Endocrine Endocrinology: Denies cold intolerance or heat intolerance Hematologic/Lymphatic Hematologic/Lymphatic: Reports systems reviewed and no addt'l complaints, except as documented EXAM Physical Exam Const Vital Signs: 07/24/24 18:12 07/24/24 20:11 07/24/24 22:00 Temperature 98.1 F Temperature Source Oral Pulse Rate 62 60 60 Respiratory Rate 22 H 14 15 Blood Pressure 134/60 H 117/58 L Blood Pressure Mean 84 77 Pulse Ox 94 97 98 Oxygen Delivery Method Nasal Cannula Nasal Cannula Nasal Cannula Oxygen Flow Rate (L/min) 2 2 2 Positive well developed and cachectic General Appearance ED: well developed, cachectic, NAD and pallor; Negative for cyanotic or diaphoretic Nutritional Appearance: cachectic HEENT Reports dry mucous membranes HEENT Narrative: Atrophy noted temporal region. Ears normal. Nares patent. Mucosas dry. Uvula is midline. No deviation with protrusion. Mouth ED: Yes dry mucous membranes Mouth: dry mucous membranes Eyes PERRL and EOMs intact bilaterally General Eye ED: Yes pale conjunctiva; Negative for scleral icterus Neck no lymphadenopathy, supple and no JVD Neck Narrative: Trachea is midline. Chest Wall inspection of chest normal and palpation of chest normal Resp normal respiratory effort and No clear to auscultation bilaterally Auscultation: rales diffuse (Diffused and inspiratory rales noted greater at the lower lung penn.) Cardio regular rate, regular rhythm, S1 normal heart sound, S2 normal heart sound and no murmurs GI non-tender, non-distended and no masses; Negative for hepatosplenomegaly GI Narrative: There is no palpable pulsatile mass. Rectal tone was decreased. Plus minus anal wink. Auscultation: hypoactive bowel sounds Palpation: soft Back/Spine no CVA tenderness Thoracic Spine / Upper Back: thoracic spinal tenderness Lumbar Spine / Lower Back: lumbar spinal tenderness Extremity Negative for normal to inspection Extremity Narrative: Stigmata of peripheral arterial disease. He has decreased sensation of both right and left lower extremity. Neuro oriented x3, CN's II-XII intact bilaterally and No no sensory deficits noted Neuro Narrative: Patient has weakness of both right and left leg. Altered sensation right and left lower extremity. Patella and ankle reflex are absent. He has 1-2+ bicep, brachialis and tricep reflex and they are symmetric. Sensorium / Orientation: alert Psych Mood & Affect: depressed Skin no rashes or lesions noted, no wounds and No skin turgor normal General Skin Exam: pallor; Negative for elasticity normal or jaundice MDM MDM MDM Narrative Medical decision making narrative: With history of lung cancer 45 pound weight loss back pain decreased rectal tone altered sensation lower extremity exam absent reflexes concern for metastatic lesion to the dorsal or lumbar spine. Initially an MRI was ordered with or without contrast however patient has a pacemaker. MRI was canceled and CT was ordered. CBC was obtained assess white count and evaluate H&H since clinically he appears pale. Competence of metabolic panel to assess renal function, liver enzymes to determine if there is mets to his liver or potentially spine and to evaluate for hypercalcemia. History & Record Review Additional record(s) reviewed:: Prior outpatient record (Dr. Pancho Moralez's note from [facility] was reviewed. There is a 1.2 x 3 cm irregular density with areas of air bronchograms in the peripheral lateral aspect the right upper lobe. Dr. Moralez noted this had progressed since prior study. Recommended PET scan. Apparently was not candidate) and Prior labs Lab Data Attestation: I reviewed the patient's lab results. Lab results narrative: White count is normal with a slight shift. There is no bandemia. H&H is 8.6 and 20.5 with an MCV of 96. This is a 2 g drop from prior. BUN and creatinine are elevated from baseline and essentially doubled from several months ago. Today they are 64 and 3.79. Estimated GFR is 16. Glucose is slightly evaded 113 with a normal CO2 anion gap. AST and ALT are elevated at 400 4224. Alkaline phosphatase is elevated 120. Calcium is normal. Albumin is low which raises concern for this to be elevated once corrected. This raises concern for metastasis to bone specially with alkaline phosphatase being elevated. Labs: Laboratory Results - last 24 hr 07/24/24 18:16 WBC 8.8 RBC 2.96 L Hgb 8.6 L Hct 28.5 L MCV 96.3 H MCH 29.1 MCHC 30.2 L RDW Std Deviation 59.7 H RDW Coeff of [place] 17.5 H Plt Count 147 L MPV 11.1 Immature Gran % (Auto) 1.000 H Neut % (Auto) 89.3 H Lymph % (Auto) 3.8 L [place] % (Auto) 5.8 Eos % (Auto) 0.0 Baso % (Auto) 0.1 Absolute Neuts (auto) 7.8 H Absolute Lymphs (auto) 0.33 L Nucleated RBC % 0 Sodium 141 Potassium 4.2 Chloride 108 H Carbon Dioxide 25.0 Anion Gap 7 BUN 64 H Creatinine 3.79 H Estim Creat Clear Calc 12.03 Est GFR (MDRD) Af Amer 20 L Est GFR (MDRD) Non-Af 16 L BUN/Creatinine Ratio 16.9 Glucose 113 H Calcium 9.1 Total Bilirubin 0.50 AST 444 H ALT 244 H Alkaline Phosphatase 120 H Total Protein 6.1 L Albumin 2.6 L Globulin 3.5 Albumin/Globulin Ratio 0.7 L Radiography Diagnostic Testing: Clinical Impression(s) from Imaging Studies Lumbar Spine CT 07/24/24 18:50 IMPRESSION: Degenerative and postoperative change. No acute fracture. Electronically Signed: Yusuf Lo MD at 20:46 EST Reading Location ID and State: [facility] / [place] , Service support , Thoracic Spine CT 07/24/24 18:50 IMPRESSION: Degenerative change. T7 compression fracture of uncertain age. Electronically Signed: Yusuf Lo MD at 21:00 EST , CT reports were read. Patient has no findings suggestive of metastatic disease to the spine. There is evidence of a compression fracture of T7 which would not explain his symptoms. Discharge Plan Triage Chief Complaint: General Illness ED Provider: Michele Sosa Dx/Rx/DC Orders Clinical Impression: Lung cancer, upper lobe, Presence of cardiac pacemaker, Fatigue, Bilateral leg numbness, Ambulatory dysfunction, Tobacco abuse, Essential hypertension, Pure hypercholesterolemia, Elevated liver transaminase level, Unintentional weight loss of 7.5% body weight or less within 3 months, Anticoagulant long-term use, Compression fracture of T7 vertebra Instructions: Cancer: Managing Fatigue, ED Fracture, Vertebral Compression Prescriptions: New oxycodone-acetaminophen 5-325 mg tablet 1 tab PO Q6H PRN PRN (Reason: pain) 5 Days Qty: 20 0RF No Action nitroglycerin 0.4 mg tablet, sublingual 0.4 mg SUBLINGUAL Q5M PRN (Reason: Chest Pain) Qty: 25 3RF ferrous sulfate 325 mg (65 mg iron) tablet 325 mg PO BID Patient Comments: iron supplement acetaminophen [Tylenol] 325 mg tablet 650 mg PO Q6H PRN clopidogrel 75 mg tablet 75 mg PO DAILY Rx Instructions: 03/24/23- 03/19/2024 Asmanex HFA 100 mcg/actuation HFA aerosol inhaler 2 puff inhalation BID Rx Instructions: taken starting 06/18/2021. ascorbic acid (vitamin C) 500 mg tablet 500 mg PO BID cholecalciferol (vitamin D3) 50 mcg (2,000 unit) tablet 50 mcg PO QDAY Jardiance 25 mg tablet 12.5 mg PO QAM lactulose 10 gram/15 mL solution 30 ml PO TID PRN albuterol sulfate 2.5 mg /3 mL (0.083 %) solution for nebulization 2.5 mg inhalation Q6H albuterol sulfate 90 MCG aerosol powdr breath activated 2 puff INHALATION Q4H PRN (Reason: Shortness Of Breath) Patient Comments: folic acid 1 MG tablet 1 mg PO QHS Stiolto Respimat 2.5-2.5 mcg/actuation Mist 1 puff INHALATION BID rosuvastatin [Crestor] 40 mg tablet 40 mg PO DAILY buprenorphine 20 mcg/hour patch weekly 1 patch transdermal QWEEK Patient Comments: has a patch on now 09/27/2023 pantoprazole 40 mg Tablet,Delayed Release (Dr/Ec) 40 mg PO BID 30 Days Qty: 60 0RF zolpidem 10 mg tablet 10 mg PO QHS Patient Comments: TAKE 1 TABLET BY MOUTH EVERY DAY amiodarone 200 mg tablet 200 mg PO DAILY Qty: 90 3RF sucralfate 1 gram tablet 1 g PO TID Qty: 90 4RF potassium chloride 10 mEq tablet extended release 10 meq PO DAILY Qty: 90 3RF furosemide 20 mg tablet 20 mg PO DAILY Qty: 90 3RF warfarin 2 mg tablet 2 mg PO .COMPLEX Qty: 90 3RF Protocol: Dose Management Condition: Tuesday Dose/Route: 2 mg Instruction: 1 x 2 mg tablet Condition: Tuesday Dose/Route: 5 mg Instruction: 1 x 5 mg tablet Condition: Tuesday Dose/Route: 2 mg Instruction: 1 x 2 mg tablet Condition: Tuesday Dose/Route: 2 mg Instruction: 1 x 2 mg tablet Condition: Dose/Route: 2 mg Instruction: 1 x 2 mg tablet Condition: Tuesday Dose/Route: 5 mg Instruction: 1 x 5 mg tablet Condition: Tuesday Dose/Route: 2 mg Instruction: 1 x 2 mg tablet Protocol Text: Adjustment Start Date: Tuesday07/17/24 INR Value: 3.7 INR Date: 07/17/24 Recheck Date: 07/20/24 Rx Instructions: Daily Tuesday and Tuesday: Takes a 5mg tablet Tuesday through Tuesday; OR as directed warfarin 5 mg tablet 5 mg PO .COMPLEX Qty: 90 3RF Protocol: Dose Management Condition: Tuesday Dose/Route: 2 mg Instruction: 1 x 2 mg tablet Condition: Tuesday Dose/Route: 5 mg Instruction: 1 x 5 mg tablet Condition: Tuesday Dose/Route: 2 mg Instruction: 1 x 2 mg tablet Condition: Tuesday Dose/Route: 2 mg Instruction: 1 x 2 mg tablet Condition: Dose/Route: 2 mg Instruction: 1 x 2 mg tablet Condition: Tuesday Dose/Route: 5 mg Instruction: 1 x 5 mg tablet Condition: Tuesday Dose/Route: 2 mg Instruction: 1 x 2 mg tablet Protocol Text: Adjustment Start Date: Tuesday07/17/24 INR Value: 3.7 INR Date: 07/17/24 Recheck Date: 07/20/24 Rx Instructions: Take one tablet by mouth on Tuesday, Tuesday, and Tuesday; OR as directed metoprolol succinate 50 mg tablet extended release 24 hr 50 mg PO [facility] Primary Care Provider: Guillermo Pritchard Referrals: Guillermo Pritchard MD [Primary Care Provider] - 5-7 Days Print Language: French Disposition Disposition: Home, Self Care
--- NOTE | 2024-07-24 20:37 | CM.ED ---
Social Work Reason for visit: Verify Advanced Directives SW was able to verify that patient has both HPOA and Living Will on file at [facility]. No further needs identified. Lizzette Cosby, SCHOOL STANDARDS COACH, GEOTHERMAL OPERATIONS ENGINEER
[2024-07-24 22:00] VITALS: BP 117/58; PULSE 60; RESP 15; O2SAT 98
[2024-07-24 22:30] VITALS: BP 133/58; PULSE 60; RESP 16; O2SAT 97
== END 2024-07-24 23:04 | disposition home or self-care (01) ==
PROVIDERS: Emergency Provider Emergency Medicine; PCP Family Medicine; Visit Provider Emergency Medicine
DX: C34.11 Malignant neoplasm of upper lobe, right bronchus or lung (principal); S22.060A Wedge compression fracture of T7-T8 vertebra, initial encounter for closed fracture; I13.0 Hypertensive heart and chronic kidney disease with heart failure and stage 1 through stage 4 chronic kidney disease, or unspecified chronic kidney disease; I50.22 Chronic systolic (congestive) heart failure; J44.9 Chronic obstructive pulmonary disease, unspecified; I48.0 Paroxysmal atrial fibrillation; N18.31 Chronic kidney disease, stage 3a; F17.210 Nicotine dependence, cigarettes, uncomplicated; Z95.0 Presence of cardiac pacemaker; E78.00 Pure hypercholesterolemia, unspecified; I25.10 Atherosclerotic heart disease of native coronary artery without angina pectoris; F17.220 Nicotine dependence, chewing tobacco, uncomplicated; Z79.01 Long term (current) use of anticoagulants; R53.83 Other fatigue; R20.0 Anesthesia of skin; R26.89 Other abnormalities of gait and mobility; R74.01 Elevation of levels of liver transaminase levels; X58.XXXA Exposure to other specified factors, initial encounter
CPT/HCPCS: 72128; 72131; 80053; 85025; 96374; 96375; 99285; A4216; J2405

== ENCOUNTER 2024-07-27 10:12 | Inpatient (IN) | payer OTHER, SELFPAY ==
[2024-07-27] VITALS (9 sets, daily range): BP systolic 101–133; BP diastolic 55–84; PULSE 56–66; RESP 14–18; TEMP 35.7–36.6; O2SAT 76–100; BMI 18.7; BMI 17.4
--- NOTE | 2024-07-27 10:24 | CT_ITS ---
STUDY: CT THORACIC SPINE WITHOUT CONTRAST REASON FOR EXAM: Male, 84 years old. Back pain following a fall. RADIATION DOSAGE (If Supplied By Facility): CTDIvol = ( 18.42 ) mGy, DLP = ( 737.77 ) mGycm TECHNIQUE: The patient was scanned in a multi detector CT scanner. High resolution imaging was performed. Images were obtained from T1 to L1 vertebral level. Sagittal and coronal images were reconstructed. Individualized dose optimization techniques were used for this CT. COMPARISON: Comparison is made with prior study July 24, 2024. FINDINGS: Normal kyphosis of the thoracic spine. There is no substantial scoliosis. There is multilevel endplate spondylosis of the thoracic spine. There is multilevel degenerative disc disease with loss of the disc space heights. The mineralization of the thoracic vertebrae. Loss of height of mid dorsal vertebrae suggestive possible compression fractures. Heterogeneous appearance of the mid dorsal vertebrae. Neoplastic involvement should be ruled out. Calcification of the thoracic aorta. Increased markings at the lung bases suggestive of dependent atelectasis and/or infiltrate superimposed on COPD and scarring with bullous formation.. Stable aneurysmal dilatation of the descending thoracic aorta. CT/Spine Thoracic without Contras IMPRESSION: Multilevel disc space narrowing with heterogeneous appearance of the thoracic vertebrae suggestive possible metastatic deposits. Loss of height of 2 mid dorsal vertebrae. Electronically Signed: Tyler Early MD at 12:38 EST ,
--- NOTE | 2024-07-27 10:24 | CT_ITS ---
EXAM: CT LUMBAR SPINE WITHOUT INTRAVENOUS CONTRAST CLINICAL INDICATION: fall, pain TECHNIQUE: Helically acquired images were obtained of the lumbar spine without intravenous contrast. 2D reformats were reviewed. CTDIvol = ( 15.51 ) mGy, DLP = ( 601.94 ) mGycm This CT exam was performed using one or more of the following dose reduction techniques: automated exposure control, adjustment of the mA and/or kV according to patient size, and/or use of iterative reconstruction technique. COMPARISON: Jul 24, 2024 FINDINGS: VERTEBRAE: Osteopenia. No traumatic subluxation. No discrete lytic or blastic abnormality. No acute or healing fracture or malalignment. DISCS/SPINAL CANAL/NEURAL FORAMINA: Multilevel degenerative changes of the spine. Lumbosacral fusion hardware identified with no complications. No critical stenosis. VASCULATURE: Atherosclerotic calcifications of the aorta and iliac arteries. LYMPH NODES: Unremarkable. No retroperitoneal adenopathy. LUNGS AND PLEURAL SPACES: Evidence of bronchitis. SPLEEN: Borderline splenomegaly. KIDNEYS AND URETERS: Right renal moiety moderate hydronephrosis suspected although the right ureter is not visualized on this study. 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 BLADDER: Visualize incompletely imaged bladder is unremarkable. CT/Spine Lumbar without Contrast IMPRESSION: 1. No acute or healing fracture or malalignment. 2. 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 3. Right renal moiety moderate hydronephrosis suspected although the right ureter is not visualized on this study. Electronically Signed: Danny Farmer MD at 12:20 EST ,
--- NOTE | 2024-07-27 10:26 | ED.VIS.FALL ---
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 Of note, he was seen in the emergency department previously after a fall. He was diagnosed with a thoracic vertebra compression fracture. He lives at home alone and reportedly fell again. He is having pain in his thoracic back. He presents with continued pain, and is having difficulty walking. Past medical history also includes mechanical heart valve, on Coumadin. His daughter states that he does not want anything done and does not want to know anything more about his cancer, but he is not managing well at home. [facility] Medical History Acute insomnia Lung mass History of bleeding ulcers History of echocardiogram Cardiology follow-up encounter Anemia CKD (chronic kidney disease) HFrEF (heart failure with reduced ejection fraction) Kidney disease GERD (gastroesophageal reflux disease) Former smoker ICD (implantable cardioverter-defibrillator) in place Coronary artery disease Anemia Intermittent complete heart block Pericardial effusion after operative procedure Erosion of pacemaker pocket due to and not concurrent with implantation of cardiac pacemaker Chronic pain COPD (chronic obstructive pulmonary disease) Asthma Symptomatic bradycardia Persistent atrial fibrillation Sick sinus syndrome Osteoporosis On home oxygen therapy Atrial fibrillation Stage 3a chronic kidney disease (CKD) Chronic anticoagulation Back pain due to injury Stroke Injury of head and neck CHF (congestive heart failure) Heart attack Macrocytic anemia Anticoagulant long-term use Wears glasses Wears dentures Ambulates with cane Arthritis High cholesterol Restless legs Injury of back TIA (transient ischemic attack) Chronic cough History of pain when walking History of edema History of stress test Hypertension History of heart attack Hx of fracture of ankle Hx of fracture of ankle Paroxysmal atrial fibrillation Pure hypercholesterolemia Essential hypertension Non-rheumatic tricuspid valve insufficiency Secondary pulmonary arterial hypertension Ischemic cardiomyopathy Atherosclerotic heart disease of [place] coronary artery without angina 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 History of GI bleed COPD (chronic obstructive pulmonary disease) Chronic pain syndrome Tobacco use disorder Spinal stenosis of lumbar region Chronic airway obstruction Anemia due to chronic blood loss Home Medications ?Medication ?Instructions ?Recorded ?Last Taken ?Type albuterol sulfate 90 mcg/actuation 2 puff inhalation Q4H PRN 09/25/15 08/23/22 History breath activated powder inhaler Shortness Of Breath folic acid 1 mg tablet 1 mg PO QHS SUPPLEMENT 06/24/16 08/23/22 History tiotropium 2.5 mcg-olodaterol 2.5 1 puff inhalation BID ASTHMA 06/18/21 08/24/22 History mcg/actuation mist for inhalation (Stiolto Respimat) nitroglycerin 0.4 mg sublingual 0.4 mg sublingual Q5M PRN Chest 09/17/22 Unknown Rx tablet Pain #25 tabs rosuvastatin 40 mg tablet (Crestor) 40 mg PO DAILY cholesterol 03/29/23 Unknown History amiodarone 200 mg tablet 200 mg PO DAILY afib #90 tabs 04/28/23 11/04/23 Rx buprenorphine 20 mcg/hour weekly 1 patch transdermal QWEEK pain 09/27/23 Unknown History transdermal patch pantoprazole 40 mg tablet,delayed 40 mg PO BID 30 days #60 tabs 10/07/23 Unknown Rx release acetaminophen 325 mg tablet 650 mg PO Q6H PRN fever or pain 10/31/23 Unknown History (Tylenol) clopidogrel 75 mg tablet 75 mg PO DAILY 10/31/23 11/04/23 History mometasone 100 mcg/actuation HFA 2 puff inhalation BID 10/31/23 Unknown History aerosol inhaler (Asmanex HFA) ferrous sulfate 325 mg (65 mg 325 mg PO BID IRON SUPPLEMENT 11/17/23 Unknown History iron) tablet zolpidem 10 mg tablet 10 mg PO QHS sleep 11/30/23 Unknown History furosemide 20 mg tablet 20 mg PO DAILY #90 tabs 01/11/24 Unknown Rx sucralfate 1 gram tablet 1 g PO TID #90 TABLETS 01/11/24 Unknown Rx warfarin 2 mg tablet 2 mg PO .COMPLEX blood thinner #90 01/24/24 Unknown Rx tabs warfarin 5 mg tablet 5 mg PO .COMPLEX #90 tabs 05/31/24 Unknown Rx albuterol sulfate 2.5 mg/3 mL 2.5 mg inhalation Q6H 06/07/24 Unknown History (0.083 %) solution for nebulization ascorbic acid (vitamin C) 500 mg 500 mg PO BID 06/07/24 Unknown History tablet cholecalciferol (vitamin D3) 50 50 mcg PO QDAY 06/07/24 Unknown History mcg (2,000 unit) tablet empagliflozin 25 mg tablet 12.5 mg PO QAM 06/07/24 Unknown History (Jardiance) lactulose 10 gram/15 mL oral 30 ml PO TID PRN stools 06/07/24 Unknown History solution metoprolol succinate 50 mg 50 mg PO QHS 06/07/24 Unknown History tablet,extended release 24 hr oxycodone-acetaminophen 5 mg-325 1 tab PO Q6H PRN PRN pain 5 days 07/24/24 Unknown Rx mg tablet #20 TABLETS Allergy/AdvReac Type Severity Reaction Status Date / Time colestipol AdvReac Other Verified 07/27/24 10:13 levofloxacin AdvReac Other Verified 07/27/24 10:13 sulfamethoxazole (From AdvReac Other Verified 07/27/24 10:13 Sulfamethoxazole-Trimethoprim) trimethoprim (From AdvReac Other Verified 07/27/24 10:13 Sulfamethoxazole-Trimethoprim) Family History Son , age 44 from [place] CAD (coronary artery disease) Myocardial infarction Sudden cardiac Brother CAD (coronary artery disease) Pt states all nine of his siblings have heart problems Hypertension Heart disease Kidney disease Sister CAD (coronary artery disease) Patient states all nine of his siblings have heart problems Heart disease Hypertension Father Heart disease Hypertension Other History of mechanical aortic valve replacement Surgical History History of ankle surgery Hx of esophagogastroduodenoscopy Presence of biventricular implantable cardioverter-defibrillator (ICD) (03/22/23) Hx of CABG Cardiac pacemaker in situ H/O prosthetic aortic valve replacement History of prosthetic heart valve History of esophagogastroduodenoscopy (EGD) (~10/2021) Status post cardiac surgery H/O cardiac catheterization History of lumbar fusion History of mechanical aortic valve replacement (~03/27/93) History of coronary artery stent placement (03/11/23) History of left heart catheterization History of aortic valve replacement (~03/27/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) Social History household members: none housing: house Smoking Status: Current every day smoker tobacco type: cigarettes and smokeless tobacco how long ago did patient quit smokin/2 pack daily alcohol intake: never substance use type: does not use caffeine: No seatbelt use: always additional social history: pt denies marijuana use, denies vaping, denies edibles, denies aspirin use, denies ibuprofen use. ROS ROS ED ROS Narrative Review of systems positive for back pain. More the thoracic area. Having difficulty walking. Generalized weakness. Dark urine. No fevers or chills. EXAM Physical Exam Narrative Exam Narrative: Afebrile. Vital signs noted. Nontoxic-appearing. Cardiovascular examination regular rate and rhythm. Lungs clear to auscultation bilaterally. Abdomen is soft with positive bowel sounds. He is able to stand and was buckling his belt. He is able to sit on the bedside/cot. Mild tenderness to palpation diffusely throughout thoracic spine. Decreased reflexes patellar. Const Vital Signs: 07/27/24 10:13 07/27/24 10:16 07/27/24 12:13 Temperature 97.6 F L Temperature Source Oral Pulse Rate 66 60 Respiratory Rate 18 18 Respiratory Effort Normal Non-Labored Respiratory Depth Normal Respiratory Pattern Normal Blood Pressure 110/58 L 114/59 L Blood Pressure Mean 75 77 Pulse Ox 98 96 Oxygen Delivery Method Room Air Room Air Oxygen Flow Rate (L/min) 07/27/24 13:03 07/27/24 13:03 07/27/24 13:33 Temperature Temperature Source Pulse Rate 63 59 L Respiratory Rate 14 16 Respiratory Effort Respiratory Depth Respiratory Pattern Blood Pressure 133/62 H 122/84 H Blood Pressure Mean 85 96 Pulse Ox 76 93 96 Oxygen Delivery Method Room Air Nasal Cannula Nasal Cannula Oxygen Flow Rate (L/min) 2 2 MDM MDM MDM Narrative Medical decision making narrative: Differential diagnosis includes but not limited to new fracture of thoracic spine versus lumbar spine. I reviewed his last visit on the seventh, 3 days ago and he had an age-indeterminate T7 compression fracture. I doubt spinal cord compression. Given his generalized weakness, he may be dehydrated versus other electrolyte imbalance versus urinary tract infection. I doubt sepsis based on his initial vital signs. I discussion with the patient and his relative regarding previous PT and OT at home versus placement in rehab. He is not quite sure that he wants to go to a [facility] facility. I also discussed with him the possibility of consult for palliative care and hospice given that he has lung carcinoma with probable metastasis but does not want anything performed as far as treatment is concerned. I reviewed his laboratory work and he has normal white count of 8.5 with hemoglobin stable at 9.3, platelet count slightly low at 146. In review of his prior laboratories he has had chronic thrombocytopenia intermittently. His INR is elevated at 5.4. In discussion with his daughter, his target range for his mechanical valve is between 2.5 and 3.5. I do not feel that he needs vitamin K because he is not experiencing any bleeding. Review of his electrolyte panel chloride is elevated at 108 which I think is nonspecific, BUN of 68 and creatinine increased to 4.16 but he has history of chronic kidney disease. Glucose is elevated at 116 with a normal anion gap of 5. He has elevated AST of 585 and ALT of 315 and an alk phos of 121. He has had elevated LFTs in the past as well. Urinalysis obtained and reviewed and is negative for infection. I do not feel antibiotics are indicated. I reviewed the radiology reports of the CT of the lumbar spine and the thoracic spine. CT lumbar spine does not show any evidence of an acute fracture. While I reviewed the previous CT and they commented on age indeterminant T7 fracture, radiologist today comments on 2 midthoracic dorsal lumbar vertebrae which may have loss of height and be compression fractures. There is concern for metastasis deposits throughout the spine. Initially, patient had been given morphine, but his daughter states that Dilaudid is usually more effective in treating his pain. Given that he may have metastasis to the spine of his lung cancer, he was administered Dilaudid 1 mg intravenously. I had a discussion with the patient and his daughter. Patient was stating how he would like to go home and that he is not necessarily a good physical therapy candidate. I discussed patient with social work/case management. They state the patient did say that he wanted to go home and not be admitted to the hospital. I do feel that given the findings of today and his intractable back pain that palliative care and hospice consults would be appropriate. Social work is awaiting hospice consultation for arrangements for home hospice. Additionally, patient did sign the [facility] DO NOT RESUSCITATE comfort care only form. Hospice has arrived and performed the evaluation. They told social work that they are unable to arrange for full enrollment today and request that he be admitted for further pain control initially. Patient was made DO NOT RESUSCITATE comfort care only. I will discuss the patient with the hospitalist for admission. Patient discussed with Dr. Tejada. Disposition is admitted. Patient is in stable condition. History & Record Review Discussion w/independent historian: Patient and Family Additional record(s) reviewed:: Prior labs Lab Data Attestation: I reviewed the patient's lab results. Labs: Laboratory Results - last 24 hr 07/27/24 07/27/24 10:40 12:40 WBC 8.5 RBC 3.25 L Hgb 9.3 L Hct 31.6 L MCV 97.2 H MCH 28.6 MCHC 29.4 L RDW Std Deviation 60.4 H RDW Coeff of [place] 17.2 H Plt Count 146 L MPV 11.0 Immature Gran % (Auto) 0.800 Neut % (Auto) 87.3 H Lymph % (Auto) 4.7 L [place] % (Auto) 6.5 Eos % (Auto) 0.5 Baso % (Auto) 0.2 Absolute Neuts (auto) 7.4 Absolute Lymphs (auto) 0.40 L Nucleated RBC % 0 PT 50.6 H INR 5.4 H* Sodium 140 Potassium 4.7 Chloride 108 H Carbon Dioxide 27.0 Anion Gap 5 BUN 68 H Creatinine 4.16 H Estim Creat Clear Calc 10.69 Est GFR (MDRD) Af Amer 18 L Est GFR (MDRD) Non-Af 15 L BUN/Creatinine Ratio 16.3 Glucose 116 H Calcium 9.1 Total Bilirubin 0.50 AST 585 H ALT 315 H Alkaline Phosphatase 121 H Total Protein 6.1 L Albumin 2.7 L Globulin 3.4 Albumin/Globulin Ratio 0.8 L Urine Color Yellow Urine Clarity Sl. Cloudy Urine pH 6.5 Ur Specific [place] 1.010 Urine Protein 100 H Urine Glucose (UA) 1000 H Urine Ketones Negative Urine Occult Blood 250 H Urine Nitrite Negative Urine Bilirubin Negative Urine Urobilinogen Normal Ur Leukocyte Esterase Negative Urine RBC 0 SEEN Urine WBC 0 SEEN Ur Squamous Epith Cells 0 SEEN Urine Bacteria 0 SEEN Coarse Granular Casts 0-5 SEEN Urine Mucus 0 SEEN Radiography Diagnostic Testing: Clinical Impression(s) from Imaging Studies Lumbar Spine CT 07/27/24 10:24 IMPRESSION: 1. No acute or healing fracture or malalignment. 2. 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 3. Right renal moiety moderate hydronephrosis suspected although the right ureter is not visualized on this study. Electronically Signed: Danny Farmer MD at 12:20 EST , Thoracic Spine CT 07/27/24 10:24 IMPRESSION: Multilevel disc space narrowing with heterogeneous appearance of the thoracic vertebrae suggestive possible metastatic deposits. Loss of height of 2 mid dorsal vertebrae. Electronically Signed: Tyler Early MD at 12:38 EST , Management Discussion w/another healthcare provider: Hospitalist, carnival worker/Case management and Other (Hospice.) Discharge Plan Triage Chief Complaint: Fall ED Provider: Epifanio Tobar Dx/Rx/DC Orders Clinical Impression: Lung cancer, upper lobe, Supratherapeutic INR, Compression fracture of T7 vertebra, Generalized weakness, DNR (do not resuscitate) discussion, Intractable back pain Prescriptions: No Action nitroglycerin 0.4 mg tablet, sublingual 0.4 mg SUBLINGUAL Q5M PRN (Reason: Chest Pain) Qty: 25 3RF ferrous sulfate 325 mg (65 mg iron) tablet 325 mg PO BID Patient Comments: iron supplement acetaminophen [Tylenol] 325 mg tablet 650 mg PO Q6H PRN (Reason: fever or pain) clopidogrel 75 mg tablet 75 mg PO DAILY Rx Instructions: 03/24/23- 03/19/2024 Asmanex HFA 100 mcg/actuation HFA aerosol inhaler 2 puff inhalation BID Rx Instructions: taken starting 06/18/2021. ascorbic acid (vitamin C) 500 mg tablet 500 mg PO BID cholecalciferol (vitamin D3) 50 mcg (2,000 unit) tablet 50 mcg PO QDAY Jardiance 25 mg tablet 12.5 mg PO QAM lactulose 10 gram/15 mL solution 30 ml PO TID PRN (Reason: stools) albuterol sulfate 2.5 mg /3 mL (0.083 %) solution for nebulization 2.5 mg inhalation Q6H albuterol sulfate 90 MCG aerosol powdr breath activated 2 puff INHALATION Q4H PRN (Reason: Shortness Of Breath) Patient Comments: folic acid 1 MG tablet 1 mg PO QHS Stiolto Respimat 2.5-2.5 mcg/actuation Mist 1 puff INHALATION BID rosuvastatin [Crestor] 40 mg tablet 40 mg PO DAILY buprenorphine 20 mcg/hour patch weekly 1 patch transdermal QWEEK Patient Comments: has a patch on now 09/27/2023 pantoprazole 40 mg Tablet,Delayed Release (Dr/Ec) 40 mg PO BID 30 Days Qty: 60 0RF zolpidem 10 mg tablet 10 mg PO QHS Patient Comments: TAKE 1 TABLET BY MOUTH EVERY DAY oxycodone-acetaminophen 5-325 mg tablet 1 tab PO Q6H PRN PRN (Reason: pain) 5 Days Qty: 20 0RF amiodarone 200 mg tablet 200 mg PO DAILY Qty: 90 3RF sucralfate 1 gram tablet 1 g PO TID Qty: 90 4RF furosemide 20 mg tablet 20 mg PO DAILY Qty: 90 3RF warfarin 2 mg tablet 2 mg PO .COMPLEX Qty: 90 3RF Protocol: Dose Management Condition: Tuesday Dose/Route: 2 mg Instruction: 1 x 2 mg tablet Condition: Tuesday Dose/Route: 5 mg Instruction: 1 x 5 mg tablet Condition: Tuesday Dose/Route: 2 mg Instruction: 1 x 2 mg tablet Condition: Tuesday Dose/Route: 2 mg Instruction: 1 x 2 mg tablet Condition: Dose/Route: 2 mg Instruction: 1 x 2 mg tablet Condition: Tuesday Dose/Route: 5 mg Instruction: 1 x 5 mg tablet Condition: Tuesday Dose/Route: 2 mg Instruction: 1 x 2 mg tablet Protocol Text: Adjustment Start Date: Tuesday07/17/24 INR Value: 3.7 INR Date: 07/17/24 Recheck Date: 07/20/24 Rx Instructions: Daily Tuesday and Tuesday: Takes a 5mg tablet Tuesday through Tuesday; OR as directed warfarin 5 mg tablet 5 mg PO .COMPLEX Qty: 90 3RF Protocol: Dose Management Condition: Tuesday Dose/Route: 2 mg Instruction: 1 x 2 mg tablet Condition: Tuesday Dose/Route: 5 mg Instruction: 1 x 5 mg tablet Condition: Tuesday Dose/Route: 2 mg Instruction: 1 x 2 mg tablet Condition: Tuesday Dose/Route: 2 mg Instruction: 1 x 2 mg tablet Condition: Dose/Route: 2 mg Instruction: 1 x 2 mg tablet Condition: Tuesday Dose/Route: 5 mg Instruction: 1 x 5 mg tablet Condition: Tuesday Dose/Route: 2 mg Instruction: 1 x 2 mg tablet Protocol Text: Adjustment Start Date: Tuesday07/17/24 INR Value: 3.7 INR Date: 07/17/24 Recheck Date: 07/20/24 Rx Instructions: Take one tablet by mouth on Tuesday, Tuesday, and Tuesday; OR as directed metoprolol succinate 50 mg tablet extended release 24 hr 50 mg PO QHS Primary Care Provider: Guillermo Pritchard Referrals: Guillermo Pritchard MD [Primary Care Provider] - Print Language: Malawian
[2024-07-27] MEDS: Morphine 4 MG/ML Syringe IV (10:44)
[2024-07-27] MEDS: Ondansetron 4 MG/2 ML Vial IV (10:44)
[2024-07-27 10:50] LABS: Absolute Neutrophil Count 7.4 X10^3/uL (2.0-7.7); Basophil# 0.02 X10^3/uL; Basophil% 0.2 % (0-1); Eosinophil# 0.04 X10^3/uL; Eosinophils% 0.5 % (0-5); Hematocrit 31.6 % (40-54); Hemoglobin 9.3 g/dL (13.0-16.5); Lymphocyte % 4.7 % (19-41); Mean Corp Hgb Conc 29.4 g/dL (32-36); Mean Corpuscular Hgb 28.6 pg (27.0-32.0); Mean Corpuscular Volume 97.2 fL (80-94); Monocyte# 0.55 X10^3/uL; Monocyte% 6.5 % (0-10); NRBC Flagged by Analyzer 0 % (0-5); Neutrophil # 7.39 X10^3/uL (2.7-7.7); Neutrophil % 87.3 % (47-70); POSITIVE DIFFERENTIAL YES; Platelet Count 146 K/mm3 (150-450); RBC Distribution Width CV 17.2 % (11.6-14.6); RBC Distribution Width SD 60.4 fl (35.1-43.9); Red Blood Count 3.25 M/mm3 (4.6-6.2); White Blood Count 8.5 K/mm3 (4.4-11.0)
[2024-07-27] MEDS: 0.9% Normal Saline (1000mL) 1,000 ML 999 ML IV (11:00)
[2024-07-27 11:04] LABS: ALB/GLOB Ratio 0.8 RATIO (0.9-2.4); AST(SGOT) 585 U/L (15-37); Alanine Aminotransfer ALT/SGPT 315 U/L (16-61); Albumin, Serum 2.7 g/dL (3.2-5.0); Alkaline Phosphatase 121 U/L (45-117); Anion Gap 5 (5-15); BUN 68 mg/dL (7-18); BUN/Creat Ratio 16.3 RATIO (10-20); Calcium,Total 9.1 mg/dL (8.5-10.1); Chloride 108 mmol/L (98-107); Creatinine, Serum 4.16 mg/dL (0.70-1.30); EST Glomerular Filtration Rate 15 mL/min (>60); Est Glom Filt Rate - Afr Amer 18 mL/min (>60); Estimated Creatinine Clearance 10.69 ml/min; Globulin 3.4 g/dL (2.2-4.2); Glucose 116 mg/dL (74-106); Potassium 4.7 mmol/L (3.5-5.1); Protein, Total 6.1 g/dL (6.4-8.2); Sodium Level 140 mmol/L (136-145)
[2024-07-27 11:16] LABS: Prothrombin Time (Protime)PT. 50.6 SECONDS (11.7-14.9)
[2024-07-27 11:28] LABS: International Normalized Ratio 5.4
[2024-07-27 12:45] LABS: Bacteria 0 SEEN /hpf (None Seen); Mucous, Urine 0 SEEN /hpf (<or=2+); Red Blood Cells-Urine 0 SEEN /hpf (0-5); Squamous Epithelial Cells - UA 0 SEEN /hpf (0-5); White Blood Cells 0 SEEN /hpf (0-5)
[2024-07-27 12:47] LABS: Color, Urine Yellow (Yellow); Glucose, Dipstick 1000 mg/dl (Normal); Ketone-Dipstick Negative (Negative); Leukocyte Esterase-Dipstick Negative /ul (Negative); Nitrite-Dipstick Negative (Negative); Occult Blood-Urine 250 /ul (Negative); Protein-Dipstick 100 mg/dl (Negative); Urine Bilirubin Dipstick Negative (Negative); Urine Clarity Sl. Cloudy (Clear); Urine Urobilinogen Normal (Normal); Urine pH 6.5 (5.0 - 8.0)
[2024-07-27 12:54] LABS: Coarse Granular Cast 0-5 SEEN /lpf (0-5 /lpf)
[2024-07-27] MEDS: HYDROmorphone 1 MG/ML Syringe IV ×2 (12:57→17:44)
--- NOTE | 2024-07-27 14:09 | CM.ED ---
Social Work SW spoke with patient and daughter regarding wishes regarding end of life care. Patient stated that he would like to go home, that he did not want anymore treatments or hospitalizations. SW asked if patient would like a hospice referral to be made, patient stated he did know what hospice was and that he was interested in a referral. Daughter in agreement with same and both would like [facility] to be contacted. ER physician consulted and agreed with hospice referral. Referral made to [facility] and request made for patient to be evaluated in the ER. [facility] to call SW back to inform of time that hospice intake nurse will be in the ER. Lizzette Cosby, GENERAL MACHINE OPERATOR, [employer]
--- NOTE | 2024-07-27 17:26 | HP.PCM.HOS_ITS ---
HPI - General General Date of Admission: 07/27/24 Date of Service: 07/27/24 Chief Complaint: Family requesting set-up of home hospice. HPI Narrative The patient is an 83 y/o M w/ PMHx: CKD stage III unclear subtype, PAF, Asthma/COPD, Chronic anemia/Fe deficiency anemia, HTN, HLD, Valvular Heart Disease s/p mechanical aortic valve replacement, tobacco use, Chronic pain syndrome, Hx GI bleed, Ongoing evaluation with GI for possible Liver fibrosis, Chronic dysphagia, HFrEF, Hx Intermittent Complete HB/sick sinus syndrome s/p history of pacemaker infection s/p pacemaker extraction and replacement on contralateral side (ECHO 02/2023 showed an EF of 20 to 30%), CAD s/p CABG and PCI x 2 on 02/2023, right upper lobe lung cancer presumed with metastatic disease including to the kidneys now per family report with decision to defer any workup or biopsy and declined all therapy related with recent ED visit 07/24/2024 following mechanical fall with notable weakness, poor intake, difficulty using his legs secondary to severe paresthesias with difficulty urinating however does have BPH history with significant weight loss over the last several months with diagnosis during that evaluation of thoracic T7 vertebral compression fracture at that time eventually returning to home however he is alone and reportedly fell again prompting ED return 07/27/2024 with persistent ongoing thoracic back discomfort with continued pain and difficulty ambulating prompting ED reevaluation. Family does not want any aggressive care or any further evaluation about his cancer but notes he is unable to safely be at home and needs placement. Workup in the ED included T97.6, heart rate 66, BP 110/58, respiratory rate 18, 90% on room air desaturating down to 76% placed on 2 L nasal cannula noted to be 96% on 2 L nasal cannula, CBC with WBC 8.5, he will 9.3, MCV 97.2, platelet 146 with lymphopenia, coags with INR 5.4, CMP with chloride 108, BUN/creatinine 68/4.16, GFR 15, creatinine clearance 10.69, glucose 116, hepatic profile with T. bili 0.50, AST/ALT 585/315, alk phos 121, urinalysis noted be cloudy, specific [place] 1.010, protein 100, glucose of thousand, negative ketone, occult blood 250 however no marked urine RBCs or WBCs and no urine bacteria noted, CT of the lumbar spine with no acute or healing fracture or malalignment, evidence of horseshoe kidney with right renal moiety nonobstructing calyceal calculus that measures up to 6 mm, right renal moiety moderate hydronephrosis suspected although the right ureter is not visualized on this study, CT thoracic spine with multilevel disc space narrowing with heterogeneous appearance of the thoracic vertebrae suggestive of possible metastatic deposits, loss of height of to mid dorsal vertebrae. The patient was evaluated by Hospice given patient family preference to return to home only but they were unable to set-up today, thus requested admission until able to transition to hospice in the home. In the ED patient ministered 1 L normal saline, hydromorphone 1 mg IV x 2, morphine 4 mg IV x 1, Zofran 4 mg IV x 1. [facility] Medical History Acute insomnia Lung mass History of bleeding ulcers History of echocardiogram Cardiology follow-up encounter Anemia CKD (chronic kidney disease) HFrEF (heart failure with reduced ejection fraction) Kidney disease GERD (gastroesophageal reflux disease) Former smoker ICD (implantable cardioverter-defibrillator) in place Coronary artery disease Anemia Intermittent complete heart block Pericardial effusion after operative procedure Erosion of pacemaker pocket due to and not concurrent with implantation of cardiac pacemaker Chronic pain COPD (chronic obstructive pulmonary disease) Asthma Symptomatic bradycardia Persistent atrial fibrillation Sick sinus syndrome Osteoporosis On home oxygen therapy Atrial fibrillation Stage 3a chronic kidney disease (CKD) Chronic anticoagulation Back pain due to injury Stroke Injury of head and neck CHF (congestive heart failure) Heart attack Macrocytic anemia Anticoagulant long-term use Wears glasses Wears dentures Ambulates with cane Arthritis High cholesterol Restless legs Injury of back TIA (transient ischemic attack) Chronic cough History of pain when walking History of edema History of stress test Hypertension History of heart attack Hx of fracture of ankle Hx of fracture of ankle Paroxysmal atrial fibrillation Pure hypercholesterolemia Essential hypertension Non-rheumatic tricuspid valve insufficiency Secondary pulmonary arterial hypertension Ischemic cardiomyopathy 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 History of GI bleed COPD (chronic obstructive pulmonary disease) Chronic pain syndrome Tobacco use disorder Spinal stenosis of lumbar region Chronic airway obstruction Anemia due to chronic blood loss Home Medications ?Medication ?Instructions ?Recorded ?Last Taken ?Type albuterol sulfate 90 mcg/actuation 2 puff inhalation Q4H PRN 09/25/15 08/23/22 History breath activated powder inhaler Shortness Of Breath folic acid 1 mg tablet 1 mg PO QHS SUPPLEMENT 06/24/16 08/23/22 History tiotropium 2.5 mcg-olodaterol 2.5 1 puff inhalation BID ASTHMA 06/18/21 08/24/22 History mcg/actuation mist for inhalation (Stiolto Respimat) nitroglycerin 0.4 mg sublingual 0.4 mg sublingual Q5M PRN Chest 09/17/22 Unknown Rx tablet Pain #25 tabs rosuvastatin 40 mg tablet (Crestor) 40 mg PO DAILY cholesterol 03/29/23 Unknown History amiodarone 200 mg tablet 200 mg PO DAILY afib #90 tabs 04/28/23 11/04/23 Rx buprenorphine 20 mcg/hour weekly 1 patch transdermal QWEEK pain 09/27/23 Unknown History transdermal patch pantoprazole 40 mg tablet,delayed 40 mg PO BID 30 days #60 tabs 10/07/23 Unknown Rx release acetaminophen 325 mg tablet 650 mg PO Q6H PRN fever or pain 10/31/23 Unknown History (Tylenol) clopidogrel 75 mg tablet 75 mg PO DAILY 10/31/23 11/04/23 History mometasone 100 mcg/actuation HFA 2 puff inhalation BID 10/31/23 Unknown History aerosol inhaler (Asmanex HFA) ferrous sulfate 325 mg (65 mg 325 mg PO BID IRON SUPPLEMENT 11/17/23 Unknown History iron) tablet zolpidem 10 mg tablet 10 mg PO QHS sleep 11/30/23 Unknown History furosemide 20 mg tablet 20 mg PO DAILY #90 tabs 01/11/24 Unknown Rx sucralfate 1 gram tablet 1 g PO TID #90 TABLETS 01/11/24 Unknown Rx warfarin 2 mg tablet 2 mg PO .COMPLEX blood thinner #90 01/24/24 Unknown Rx tabs warfarin 5 mg tablet 5 mg PO .COMPLEX #90 tabs 05/31/24 Unknown Rx albuterol sulfate 2.5 mg/3 mL 2.5 mg inhalation Q6H 06/07/24 Unknown History (0.083 %) solution for nebulization ascorbic acid (vitamin C) 500 mg 500 mg PO BID 06/07/24 Unknown History tablet cholecalciferol (vitamin D3) 50 50 mcg PO QDAY 06/07/24 Unknown History mcg (2,000 unit) tablet empagliflozin 25 mg tablet 12.5 mg PO QAM 06/07/24 Unknown History (Jardiance) lactulose 10 gram/15 mL oral 30 ml PO TID PRN stools 06/07/24 Unknown History solution metoprolol succinate 50 mg 50 mg PO QHS 06/07/24 Unknown History tablet,extended release 24 hr oxycodone-acetaminophen 5 mg-325 1 tab PO Q6H PRN PRN pain 5 days 07/24/24 Unknown Rx mg tablet #20 TABLETS Allergy/AdvReac Type Severity Reaction Status Date / Time colestipol AdvReac Other Verified 07/27/24 10:13 levofloxacin AdvReac Other Verified 07/27/24 10:13 sulfamethoxazole (From AdvReac Other Verified 07/27/24 10:13 Sulfamethoxazole-Trimethoprim) trimethoprim (From AdvReac Other Verified 07/27/24 10:13 Sulfamethoxazole-Trimethoprim) Family History Son , age 44 from [place] CAD (coronary artery disease) Myocardial infarction Sudden cardiac Brother CAD (coronary artery disease) Pt states all nine of his siblings have heart problems Hypertension Heart disease Kidney disease Sister CAD (coronary artery disease) Patient states all nine of his siblings have heart problems Heart disease Hypertension Father Heart disease Hypertension Other History of mechanical aortic valve replacement Surgical History History of ankle surgery Hx of esophagogastroduodenoscopy Presence of biventricular implantable cardioverter-defibrillator (ICD) (03/22/23) Hx of CABG Cardiac pacemaker in situ H/O prosthetic aortic valve replacement History of prosthetic heart valve History of esophagogastroduodenoscopy (EGD) (~10/2021) Status post cardiac surgery H/O cardiac catheterization History of lumbar fusion History of mechanical aortic valve replacement (~03/27/93) History of coronary artery stent placement (03/11/23) History of left heart catheterization History of aortic valve replacement (~03/27/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) Social History household members: none housing: house Smoking Status: Current every day smoker tobacco type: cigarettes and smokeless tobacco how long ago did patient quit smokin/2 pack daily alcohol intake: never substance use type: does not use caffeine: No seatbelt use: always additional social history: pt denies marijuana use, denies vaping, denies edibles, denies aspirin use, denies ibuprofen use. ROS ROS Narrative dmission Review of Systems: CONSTITUTIONAL: No weight loss, fever, chills, + weakness or fatigue. HEENT: Eyes: No visual loss, blurred vision, double vision or yellow sclerae. Ears, Nose, Throat: No hearing loss, sneezing, congestion, runny nose or sore throat. SKIN: No rash or itching, lesions, wounds. CARDIOVASCULAR: No chest pain, chest pressure or chest discomfort, palpitations, edema, orthopnea, syncopal events. RESPIRATORY: + Chronic dyspnea, worse with exertion. No marked cough or sputum, wheezing, hemoptysis. GASTROINTESTINAL: + Anorexia. No nausea, vomiting, diarrhea, abdominal pain, BRBPR or recurrent melanotic stools. GENITOURINARY: No dysuria, frequency, urgency or retention. NEUROLOGICAL: + Worsening generalized weakness, falls, paresthesias chronically. No headache, dizziness, syncope, paralysis, ataxia, focal weakness, change in bowel or bladder control, seizure. MUSCULOSKELETAL: + muscle, back pain, joint pain or stiffness. HEMATOLOGIC: + anemia, easy bleeding/bruising, history of GI bleed. LYMPHATICS: No enlarged nodes. No history of splenectomy. PSYCHIATRIC: No history of depression or anxiety. ENDOCRINOLOGIC: No reports of sweating, cold or heat intolerance. No polyuria or polydipsia. ALLERGIES: No history of asthma, hives, eczema or rhinitis. Vital Signs Vital Signs Vital Signs: 07/27/24 10:13 07/27/24 10:16 07/27/24 12:13 Temperature 97.6 F L Temperature Source Oral Pulse Rate 66 60 Respiratory Rate 18 18 Respiratory Effort Normal Non-Labored Respiratory Depth Normal Respiratory Pattern Normal Blood Pressure 110/58 L 114/59 L Blood Pressure Mean 75 77 Pulse Ox 98 96 Oxygen Delivery Method Room Air Room Air Oxygen Flow Rate (L/min) 07/27/24 13:03 07/27/24 13:03 07/27/24 13:33 Temperature Temperature Source Pulse Rate 63 59 L Respiratory Rate 14 16 Respiratory Effort Respiratory Depth Respiratory Pattern Blood Pressure 133/62 H 122/84 H Blood Pressure Mean 85 96 Pulse Ox 76 93 96 Oxygen Delivery Method Room Air Nasal Cannula Nasal Cannula Oxygen Flow Rate (L/min) 2 2 Weight Weight: 130 lb 11.746 oz Body Mass Index (BMI) 18.7 Physical Exam Narrative Physical Examination: General: Awake, alert, oriented to self, place and recent events, extremely frail appearing, seated in the ED bed, notes he has ongoing lumbar and thoracic back discomfort, currently 4 out of 10 in severity. Skin: Normal color, normal turgor, no icterus, no cyanosis except for occasional staged ecchymoses, abrasions. HEENT: AT/NC, EOMI, PERRLA, dry MM, no carotid bruits or JVD noted. Lungs: Diminished, greater bases, decreased effort, occasional expiratory wheeze but rare, no rales or rhonchi. Heart: Currently regular/status post pacemaker; no gallop, rub audible, + notable valve click. Abdomen: Soft, thin cachectic habitus, NTTP, ND, mildly hyperactive BS, no appreciated HSM. Extremities: No cyanosis, clubbing, or edema, evidence of muscle and fat loss/least. Neurological: Patient awake, alert, oriented as noted, cognitive function intact; pupils equally reactive to light and accommodation, cranial nerves II- XII grossly normal, moving all 4 extremities although limited especially given recent fall with increased back pain, no focal deficits, strength severely decreased secondary to acute presentation. Psychiatric: Affect appears flat, fatigued, no acute evidence of depressive or anxiety feelings. Results Lab / Micro Data 07/27/24 10:40 07/27/24 10:40 Labs: Laboratory Results - last 24 hr 07/27/24 10:40: WBC 8.5, RBC 3.25 L, Hgb 9.3 L, Hct 31.6 L, MCV 97.2 H, MCH 28.6, MCHC 29.4 L, RDW Std Deviation 60.4 H, RDW Coeff of [place] 17.2 H, Plt Count 146 L, MPV 11.0, Immature Gran % (Auto) 0.800, Neut % (Auto) 87.3 H, Lymph % (Auto) 4.7 L, [place] % (Auto) 6.5, Eos % (Auto) 0.5, Baso % (Auto) 0.2, Absolute Neuts (auto) 7.4, Absolute Lymphs (auto) 0.40 L, Nucleated RBC % 0, PT 50.6 H, I NR 5.4 H*, Sodium 140, Potassium 4.7, Chloride 108 H, Carbon Dioxide 27.0, Anion Gap 5, BUN 68 H, Creatinine 4.16 H, Estim Creat Clear Calc 10.69, Est GFR (MDRD) Af Amer 18 L, Est GFR (MDRD) Non-Af 15 L, BUN/Creatinine Ratio 16.3, Glucose 116 H, Calcium 9.1, Total Bilirubin 0.50, AST 585 H, ALT 315 H, Alkaline Phosphatase 121 H, Total Protein 6.1 L, Albumin 2.7 L, Globulin 3.4, Albumin/Globulin Ratio 0.8 L 07/27/24 12:40: Urine Color Yellow, Urine Clarity Sl. Cloudy, Urine pH 6.5, Ur Specific [place] 1.010, Urine Protein 100 H, Urine Glucose (UA) 1000 H, Urine Ketones Negative, Urine Occult Blood 250 H, Urine Nitrite Negative, Urine Bilirubin Negative, Urine Urobilinogen Normal, Ur Leukocyte Esterase Negative, Urine RBC 0 SEEN, Urine WBC 0 SEEN, Ur Squamous Epith Cells 0 SEEN, Urine Bacteria 0 SEEN, Coarse Granular Casts 0-5 SEEN, Urine Mucus 0 SEEN Imaging Radiology Impression Lumbar Spine CT 07/27/24 10:24 IMPRESSION: 1. No acute or healing fracture or malalignment. 2. 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 3. Right renal moiety moderate hydronephrosis suspected although the right ureter is not visualized on this study. Electronically Signed: Danny Farmer MD at 12:20 EST , Thoracic Spine CT 07/27/24 10:24 IMPRESSION: Multilevel disc space narrowing with heterogeneous appearance of the thoracic vertebrae suggestive possible metastatic deposits. Loss of height of 2 mid dorsal vertebrae. Electronically Signed: Tyler Early MD at 12:38 EST , Assessment & Plan Assessment/Plan (1) Intractable back pain: PLAN: Plan The patient is an 83 y/o M w/ PMHx: CKD stage III unclear subtype, PAF, Asthma/COPD, Chronic anemia/Fe deficiency anemia, HTN, HLD, Valvular Heart Disease s/p mechanical aortic valve replacement, tobacco use, Chronic pain syndrome, Hx GI bleed, Ongoing evaluation with GI for possible Liver fibrosis, Chronic dysphagia, HFrEF, Hx Intermittent Complete HB/sick sinus syndrome s/p history of pacemaker infection s/p pacemaker extraction and replacement on contralateral side (ECHO 02/2023 showed an EF of 20 to 30%), CAD s/p CABG and PCI x 2 on 02/2023, right upper lobe lung cancer presumed with metastatic disease including to the kidneys now per family report with decision to defer any workup or biopsy and declined all therapy related with recent ED visit 07/24/2024 following mechanical fall with notable weakness, poor intake, difficulty using his legs secondary to severe paresthesias with difficulty urinating however does have BPH history with significant weight loss over the last several months with diagnosis during that evaluation of thoracic T7 vertebral compression fracture at that time eventually returning to home however he is alone and reportedly fell again prompting ED return 07/27/2024 with persistent ongoing thoracic back discomfort with continued pain and difficulty ambulating prompting ED reevaluation. #1. Adult failure to thrive with significant recurrent falls, debility, acute on chronic intractable pain secondary to recently noted acute T7 vertebral compression fracture with questionable metastatic deposits in the thoracic spine concurrently w/ initially noted prior RUL suspected lung cancer with evaluation/diagnosis deferred per Family: Patient was evaluated in the ED by hospice with patient and family preference for return to home with hospice however it is unable to be immediately set up therefore will admit patient to medical surgical floor while awaiting hospice to see his family and setting up all home health care needs for transition to home with hospice, in the interim will place patient on hospice order set with continued as needed pain regimen, encourage offloading, ambulation and activity per patient preference given hospice, defer therapies again secondary to planned hospice transition. Discussed home medications and continuation versus hold given planned hospice transition and DNRCC status now on these with patient family and at this time they would prefer to continue his home medications. #2. Acute kidney injury, progressively worsening on previous CKD stage III unclear subtype, progressive decline likely secondary to poor intake, dehydration, metastatic cancer including to the kidney in the setting of also horseshoe kidney: Admission BUN/Cr 68/4.16, GFR 15, prior baseline creatinine noted to be up to 2.41 05/01/2024 however since July he is significantly declined with creatinine 07/24/2024 3.79 upon his ED evaluation following fall now currently further even increase. Will hydrate, hold nephrotoxic medication. Will defer aggressive treatments and evaluations per family preference. #3. Supratherapeutic INR on Coumadin: Admission INR 5.4, will hold coumadin, continue to trend INR, no obvious evidence of bleeding, need to closely monitor and restart once appropriate given mechanical aortic valve replacement. #4. Chronic macrocytic anemia/iron deficiency anemia: Admission hemoglobin 9.3, MCV 97.2, baseline hemoglobin similar with recent - primarily, continue to trend, continue oral iron supplementation with orange juice per most recent hematology note, has declined any further aggressive evaluation or treatments. #5. Chronic thrombocytopenia: Unclear etiology, likely related with underlying medications and metastatic cancer, admission Plts 146, baseline ranges 120-140, similar to prior, stable, continue to trend. #6. CAD: CAD s/p CABG and PCI x 2 mid LAD with drug-eluting stents on 02/2023, ECHO 02/2023 showed an EF of 20 to 30%, Intermittent Complete HB/sick sinus syndrome s/p history of pacemaker infection s/p pacemaker extraction and replacement on contralateral side 03/2023, continue home Plavix, holding Coumadin with INR trending as noted, metoprolol as BP allows, statin therapy. #7. Severe dysphagia: Most recent GI evaluation noted 10/05/2023 with upper endoscopy with abnormal esophageal motility consistent or suspicious for achalasia, nonbleeding angiodysplastic lesion in the stomach treated with heater probe, single bleeding angiodysplastic lesion in the duodenum treated also with heater probe. In the past patient had also had noted esophageal spasms which had previously been treated with botulinum toxin. Encourage continued outpatient follow-up with GI per patient and family preference given plan transition to hospice. #8. Chronic pain syndrome, complicated by recent falls with thoracic compression fracture and possibly metastatic disease: Continue home buprenorphine patch especially given plan transition to comfort care with as needed home oral regimen as well as breakthrough morphine per hospice order set. #9. PAF: We will continue patient home amiodarone and metoprolol regimen, holding Coumadin given supratherapeutic INR, trend INR and resume once clinically appropriate. Will place hold parameters on patient's metoprolol regimen. #10. Chronic COPD/Asthma with chronic hypoxic respiratory failure: Will maintain on home 2 L nasal cannula chronic supplementation hold home inhalers, maintain on ATC budesonide, PRN albuterol, HOB, IS parameters. #11. Valvular Heart Disease s/p mechanical aortic valve replacement: As noted temporally holding Coumadin given supratherapeutic INR, will continue to trend INR and resume Coumadin once clinically appropriate. #12. HFrEF: Most recently noted ECHO 02/2023 showed an EF of 20 to 30%, s/p AICD placement, holding patient home Coumadin given supratherapeutic INR, resume once INR appropriate, continued on Plavix, continue metoprolol with hold parameters, holding nephrotoxic medications including Lasix given [place] as noted. Will judiciously hydrate given history. #13. Hx Intermittent Complete HB/sick sinus syndrome: s/p history of pacemaker infection s/p pacemaker extraction and replacement on contralateral side. #14. Hypertension: Will place hold parameters on metoprolol, holding Lasix given [place] as noted. #15. Hyperlipidemia: We will continue patient on statin therapy. #16. Tobacco Abuse: Encouraged cessation, inpatient consultation per RT, NR if desired. #17. CODE status: Patient YONATAN is his daughter Emily who is present and living will is currently in place. Discussed CODE status at length including difference between FULL code, DNR-CCA and DNR-CC status. Following discussions about the differences in these status, given plan transition to hospice at home at this time we will transition from previous DNR-CCA, no intubation status to DNR-CC status. Advanced Care Planning Face to Face Time: 16 minutes. Charges/Coding Visit Charges Inpatient E&M: 19085 Init Hosp L3 Procedures Hospitalists Procedures: 18688 Advncd Care Plan 30 Min
[2024-07-27] MEDS: 0.9% Normal Saline (1000mL) 1,000 ML 100 ML IV (20:44)
--- NOTE | 2024-07-27 22:12 | NURSING ---
patient arrived to floor. [id number]
[2024-07-27] MEDS: Pantoprazole Sodium 40 MG Tablet PO (22:28)
[2024-07-27] MEDS: Metoprolol(XL)Succ 50 MG Tablet PO (22:28)
[2024-07-27] MEDS: Menthol/Lanolin/Calamine/Znox 113 GM Tube 1 APPLIC TOPICAL (22:28)
[2024-07-27] MEDS: Ascorbic Acid 500 MG Tablet PO (22:28)
[2024-07-27] MEDS: Folic Acid 1 MG Tablet PO (22:28)
[2024-07-27] MEDS: Zolpidem Tartrate 5 MG Tablet PO (23:21)
[2024-07-28] VITALS (7 sets, daily range): BP systolic 101–122; BP diastolic 54–76; PULSE 59–70; RESP 15–20; TEMP 36.3–36.9; O2SAT 93–98
[2024-07-28] MEDS: Bisacodyl 10 MG Suppository RC (03:22)
[2024-07-28] MEDS: Sucralfate 1 GM Tablet PO ×3 (05:36→16:41)
[2024-07-28 06:40] LABS: Prothrombin Time (Protime)PT. 58.5 SECONDS (11.7-14.9)
[2024-07-28 06:49] LABS: International Normalized Ratio 6.5
[2024-07-28 07:07] LABS: ALB/GLOB Ratio 0.8 RATIO (0.9-2.4); AST(SGOT) 461 U/L (15-37); Alanine Aminotransfer ALT/SGPT 252 U/L (16-61); Albumin, Serum 2.2 g/dL (3.2-5.0); Alkaline Phosphatase 105 U/L (45-117); Anion Gap 4 (5-15); BUN 68 mg/dL (7-18); BUN/Creat Ratio 17.9 RATIO (10-20); Calcium,Total 8.3 mg/dL (8.5-10.1); Chloride 114 mmol/L (98-107); Creatinine, Serum 3.79 mg/dL (0.70-1.30); EST Glomerular Filtration Rate 16 mL/min (>60); Est Glom Filt Rate - Afr Amer 20 mL/min (>60); Estimated Creatinine Clearance 10.94 ml/min; Globulin 2.9 g/dL (2.2-4.2); Glucose 109 mg/dL (74-106); Potassium 4.2 mmol/L (3.5-5.1); Protein, Total 5.1 g/dL (6.4-8.2); Sodium Level 142 mmol/L (136-145)
[2024-07-28] MEDS: Budesonide Respules 0.5 MG/2 ML AMPUL.NEB. INHALATION ×2 (07:34→19:32)
[2024-07-28] MEDS: Ferrous Sulfate 325 MG Tablet PO ×2 (10:03→16:41)
[2024-07-28] MEDS: Ascorbic Acid 500 MG Tablet PO ×2 (10:04→21:56)
[2024-07-28] MEDS: Pantoprazole Sodium 40 MG Tablet PO ×2 (10:04→21:56)
[2024-07-28] MEDS: Menthol/Lanolin/Calamine/Znox 113 GM Tube 1 APPLIC TOPICAL ×4 (10:04→21:54)
[2024-07-28] MEDS: Amiodarone 200 MG Tablet PO (10:05)
--- NOTE | 2024-07-28 10:38 | CASEMGMT ---
Social Work Phone call to [facility] and spoke with Reema. Pt and family were seen by [facility] on 07/27 at 1630 while in the ED. Family signed papers for hospice, but did refuse for pt to be transferred to the [facility]. Family choosing to take pt home with hospice. Pt's dgt is out of town today 07/28 and therefore pt cannot return home today. Hospice nurse will see patient tomorrow 07/29 at 0930 and will facility discharge home at this time. Pt will need DME set up in the home and hospice confirms they can do this on Tuesday. Physician and charge nurse updated. Plan: Reevaluation by [facility] nurse on Saturday 07/29 at 0930 for planned dc home on 07/29 DRISS Ford
--- NOTE | 2024-07-28 13:31 | PCM.PN.HOSP ---
Reason for Visit Reason for Visit: Diagnoses Dorsalgia, unspecified (07/27/24) Subjective Subjective Patient resting in bed, denies shortness of breath, reports slight cough but has no other acute complaints Objective Data Objective Data Vital Signs: Vital Signs Temp Pulse Resp BP Pulse Ox O2 Del Method O2 Flow Rate 98.5 F 60 16 111/76 93 Nasal Cannula 2 07/28/24 09:11 07/28/24 09:11 07/28/24 09:11 07/28/24 09:11 07/28/24 09:11 07/28/24 09:12 07/28/24 09:12 Oxygen Flow Rate (L/min) 2 Oxygen Delivery Method Nasal Cannula Weight: 55.3 kg Body Mass Index (BMI) 17.4 Intake & Output: Intake and Output for Last 24 Hours 07/26/24 07/27/24 07/28/24 23:59 23:59 23:59 Intake Total 1000 / 1200 1600 / 1600 Output Total 1150 / 1150 Balance 1000 / 800 450 / 450 Medical Nutrition Assessment Dietitian: Malnutrition Criteria Met Start: 07/28/24 10:41 Freq: Status: Active Protocol: Document 07/28/24 10:41 SB (Rec: 07/28/24 10:41 SB [id number]) Nutrition Malnutrition Evidence of Malnutrition Exists Yes Malnutrition (severe): Acute Illness/Injury Evidenced By Suboptimal Energy Intake ( Severe),Weight Loss (Severe), Physical Changes (Moderate), Physical Changes (Severe) Clinical Problem Acute Disease or Injury Related Malnutrition Etiology severe related to inadequate oral intake and increased energy expenditure d/t lung cancer/COPD Signs/Symptoms as evidenced by PO meeting <50 % of estimated nutrition needs x 2-3 weeks, 10% unintentional weight loss x <2 months, and moderate/severe muscle wasting in temples, thigh, and calf. BMI 17.5kg/m2 . Status Active Problem Recommendation Dietitian Recommendations/Changes Continue regular diet. Will order 120ml chocolate ensure plus high protein 4x daily with medpass. Will adjust ONS, as needed. Will monitor weight, as available. Reviewed and approved by Susanna Li RD, LD. Lab / Micro Data 07/27/24 10:40 07/28/24 06:05 Labs: Laboratory Results - last 24 hr 07/28/24 06:05: PT 58.5 H, INR 6.5 H*, Sodium 142, Potassium 4.2, Chloride 114 H, Carbon Dioxide 24.0, Anion Gap 4 L, BUN 68 H, Creatinine 3.79 H, Estim Creat Clear Calc 10.94, Est GFR (MDRD) Af Amer 20 L, Est GFR (MDRD) Non-Af 16 L, BUN/Creatinine Ratio 17.9, Glucose 109 H, Calcium 8.3 L, Total Bilirubin 0.40, AST 461 H, ALT 252 H, Alkaline Phosphatase 105, Total Protein 5.1 L, Albumin 2.2 L, Globulin 2.9, Albumin/Globulin Ratio 0.8 L Physical Exam Narrative General: Alert, resting comfortably with no acute distress HEENT: normocephalic Eyes: Anicteric Neck: Supple Respiratory: Slight increased respiratory effort, diminished bilaterally Cardiovascular: Regular rate GI: Soft Extremities: No edema Musculoskeletal: Moving all extremities Neuro: No overt focal neurological deficits Skin: No rashes appreciated Psych: Cooperative Assessment & Plan Assessment/Plan (1) Failure to thrive: PLAN: Plan # Metastatic right upper lobe lung cancer -Patient evaluated by hospice, patient to go home with hospice once everything is set up # Compression fracture of T7 -Possibly pathologic -Pain control -Patient to go hospice once everything is set up, likely in the a.m. 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
[2024-07-28] MEDS: Ensure Plus High Protein 120 ML LIQUID PO ×3 (14:13→21:55)
[2024-07-28] MEDS: Folic Acid 1 MG Tablet PO (21:56)
[2024-07-28] MEDS: Zolpidem Tartrate 5 MG Tablet PO (21:58)
[2024-07-29 07:45] VITALS: PULSE 60; RESP 18; O2SAT 99
[2024-07-29] MEDS: Budesonide Respules 0.5 MG/2 ML AMPUL.NEB. INHALATION (07:45)
[2024-07-29] MEDS: Acetaminophen 325 MG Tablet 650 MG PO (07:56)
[2024-07-29] MEDS: Amiodarone 200 MG Tablet PO (07:57)
[2024-07-29] MEDS: Menthol/Lanolin/Calamine/Znox 113 GM Tube 1 APPLIC TOPICAL (07:57)
[2024-07-29] MEDS: Ferrous Sulfate 325 MG Tablet PO (07:57)
[2024-07-29] MEDS: Sucralfate 1 GM Tablet PO (07:57)
[2024-07-29] MEDS: Pantoprazole Sodium 40 MG Tablet PO (07:58)
[2024-07-29] MEDS: Ascorbic Acid 500 MG Tablet PO (07:58)
[2024-07-29] MEDS: Ensure Plus High Protein 120 ML LIQUID PO (07:58)
[2024-07-29 08:00] VITALS: BP 110/57; PULSE 62; RESP 18; TEMP 36.3; O2SAT 100
[2024-07-29] MEDS: morphine (oral solution) 10MG/0.5ML Syringe 5 MG SL/PO ×2 (08:24→11:47)
--- NOTE | 2024-07-29 10:31 | PCM.DC.SUM ---
Providers Date of Admission: 07/27/24 Date of Discharge: 07/29/24 Primary Care Physician: Dr. Guillermo Pritchard MD Consultations 07/27/24 18:52 Consult: Hospice / Palliative Care Routine Consulting Provider: [facility] Reason for Consult: Plan hospice home discharge once set-up, hospice arranging. 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 # Chronic heart failure with reduced ejection fraction # History of COPD Medications at Discharge Home Medications albuterol sulfate 90 mcg/actuation breath activated powder inhaler 2 puff inhalation Q4H PRN Shortness Of Breath 09/25/15 tiotropium 2.5 mcg-olodaterol 2.5 mcg/actuation mist for inhalation (Stiolto Respimat) 1 puff inhalation BID ASTHMA 06/18/21 rosuvastatin 40 mg tablet (Crestor) 40 mg PO DAILY cholesterol 03/29/23 amiodarone 200 mg tablet 200 mg PO DAILY afib #90 tabs 04/28/23 buprenorphine 20 mcg/hour weekly transdermal patch 1 patch transdermal QWEEK pain 09/27/23 pantoprazole 40 mg tablet,delayed release 40 mg PO BID 30 days #60 tabs 10/07/23 acetaminophen 325 mg tablet (Tylenol) 650 mg PO Q6H PRN fever or pain 10/31/23 mometasone 100 mcg/actuation HFA aerosol inhaler (Asmanex HFA) 2 puff inhalation BID 10/31/23 zolpidem 10 mg tablet 10 mg PO QHS sleep 11/30/23 furosemide 20 mg tablet 20 mg PO DAILY #90 tabs 01/11/24 sucralfate 1 gram tablet 1 g PO TID #90 TABLETS 01/11/24 lactulose 10 gram/15 mL oral solution 30 ml PO TID PRN stools 06/07/24 metoprolol succinate 50 mg tablet,extended release 24 hr 50 mg PO QHS 06/07/24 oxycodone-acetaminophen 5 mg-325 mg tablet 1 tab PO Q6H PRN PRN pain 5 days #20 TABLETS 07/24/24 Hospital Course Summary of Care Provided Hospital Course: # Metastatic right upper lobe lung cancer # Compression fracture of T7 # SALVADOR #Supratherapeutic INR/patient with history of mechanical aortic valve # History of coronary disease status post CABG # History of sick sinus syndrome and 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 intake, and back pain. Patient had SALVADOR and was also placed on 2 L nasal cannula due to be hypoxic, additionally INR supratherapeutic. CT of the lumbar spine showed possible metastatic deposits in the thoracic vertebrae and loss of height to mid dorsal vertebra. Patient evaluated by hospice and plans home with hospice however this was unable to be set up that day and is requested patient be admitted while all of this was being coordinated. Patient was admitted and supportive care provided. Patient was discharged home with home hospice 07/29/2024. Medical Records Data Medical Nutrition Assessment Dietitian: Malnutrition Criteria Met Start: 07/28/24 10:41 Freq: Status: Active Protocol: Document 07/28/24 10:41 SB (Rec: 07/28/24 10:41 SB [id number]) Nutrition Malnutrition Evidence of Malnutrition Exists Yes Malnutrition (severe): Acute Illness/Injury Evidenced By Suboptimal Energy Intake ( Severe),Weight Loss (Severe), Physical Changes (Moderate), Physical Changes (Severe) Clinical Problem Acute Disease or Injury Related Malnutrition Etiology severe related to inadequate oral intake and increased energy expenditure d/t lung cancer/COPD Signs/Symptoms as evidenced by PO meeting <50 % of estimated nutrition needs x 2-3 weeks, 10% unintentional weight loss x <2 months, and moderate/severe muscle wasting in temples, thigh, and calf. BMI 17.5kg/m2 . Status Active Problem Recommendation Dietitian Recommendations/Changes Continue regular diet. Will order 120ml chocolate ensure plus high protein 4x daily with medpass. Will adjust ONS, as needed. Will monitor weight, as available. Reviewed and approved by Susanna Li, RD, LD. Weight / BMI Weight Weight: 55.3 kg Body Mass Index (BMI) 17.4 ABG / Lab / Microbiology Data 07/27/24 10:40 07/28/24 06:05 D/C Instructions Discharge Diet: No restrictions DC O2, CPAP, BIPAP Needs Home O2 Discharge instructions: No Meaningful Use Info Meaningful Use Meaningful Use Diagnoses (Choose all that apply): None applicable Ischemic Stroke Statin Dosing Therapy Reference: STATIN DOSE THERAPY REFERENCE: * Patients > 75 years receive moderate or high dose statin therapy. * Patients 75 years or YOUNGER should receive HIGH intensity statin dose unless contraindicated. You will be required to document reason for non-treatment if statin daily dose does not meet guidelines. HIGH DOSE STATIN THERAPY DAILY Atorvastatin > than or = to 40 mg Rosuvastatin > than or = to 20 mg Amlodipine + Atorvastatin > than or = to 2.5/40 mg Ezetimibe + Simvastatin 10/80 mg Simvastatin 80mg Discharge Plan Admission Admit Date/Time: 07/27/24 17:37 Primary Reason for Your Visit: Fall and pain Attending Provider: Kaitlynn Dasilva Primary Care Provider: Guillermo Pritchard Consulting Providers: Chichi Tejada; Darrell Gross; Marlyn Sheth; Radha Holland; Martina Tse; Sonia Barriga PSYCHOLOGICAL STRESS EVALUATOR; Jaymie Heard Discharge Orders/Prescriptions Prescriptions: Continued acetaminophen [Tylenol] 325 mg tablet 650 mg PO Q6H PRN (Reason: fever or pain) Asmanex HFA 100 mcg/actuation HFA aerosol inhaler 2 puff inhalation BID Rx Instructions: taken starting 06/18/2021. lactulose 10 gram/15 mL solution 30 ml PO TID PRN (Reason: stools) albuterol sulfate 90 MCG aerosol powdr breath activated 2 puff INHALATION Q4H PRN (Reason: Shortness Of Breath) Patient Comments: Stiolto Respimat 2.5-2.5 mcg/actuation Mist 1 puff INHALATION BID rosuvastatin [Crestor] 40 mg tablet 40 mg PO DAILY buprenorphine 20 mcg/hour patch weekly 1 patch transdermal QWEEK Patient Comments: has a patch on now 09/27/2023 pantoprazole 40 mg Tablet,Delayed Release (Dr/Ec) 40 mg PO BID 30 Days Qty: 60 0RF zolpidem 10 mg tablet 10 mg PO QHS Patient Comments: TAKE 1 TABLET BY MOUTH EVERY DAY oxycodone-acetaminophen 5-325 mg tablet 1 tab PO Q6H PRN PRN (Reason: pain) 5 Days Qty: 20 0RF amiodarone 200 mg tablet 200 mg PO DAILY Qty: 90 3RF sucralfate 1 gram tablet 1 g PO TID Qty: 90 4RF furosemide 20 mg tablet 20 mg PO DAILY Qty: 90 3RF metoprolol succinate 50 mg tablet extended release 24 hr 50 mg PO QHS Discontinued nitroglycerin 0.4 mg tablet, sublingual 0.4 mg SUBLINGUAL Q5M PRN (Reason: Chest Pain) Qty: 25 3RF ferrous sulfate 325 mg (65 mg iron) tablet 325 mg PO BID Patient Comments: iron supplement clopidogrel 75 mg tablet 75 mg PO DAILY Rx Instructions: 03/24/23- 03/19/2024 ascorbic acid (vitamin C) 500 mg tablet 500 mg PO BID cholecalciferol (vitamin D3) 50 mcg (2,000 unit) tablet 50 mcg PO QDAY Jardiance 25 mg tablet 12.5 mg PO QAM albuterol sulfate 2.5 mg /3 mL (0.083 %) solution for nebulization 2.5 mg inhalation Q6H folic acid 1 MG tablet 1 mg PO QHS warfarin 2 mg tablet 2 mg PO .COMPLEX Qty: 90 3RF Protocol: Dose Management Condition: Tuesday Dose/Route: 2 mg Instruction: 1 x 2 mg tablet Condition: Tuesday Dose/Route: 5 mg Instruction: 1 x 5 mg tablet Condition: Tuesday Dose/Route: 2 mg Instruction: 1 x 2 mg tablet Condition: Tuesday Dose/Route: 2 mg Instruction: 1 x 2 mg tablet Condition: Dose/Route: 2 mg Instruction: 1 x 2 mg tablet Condition: Tuesday Dose/Route: 5 mg Instruction: 1 x 5 mg tablet Condition: Tuesday Dose/Route: 2 mg Instruction: 1 x 2 mg tablet Protocol Text: Adjustment Start Date: Tuesday07/17/24 INR Value: 3.7 INR Date: 07/17/24 Recheck Date: 07/20/24 Rx Instructions: Daily Tuesday and Tuesday: Takes a 5mg tablet Tuesday through Tuesday; OR as directed warfarin 5 mg tablet 5 mg PO .COMPLEX Qty: 90 3RF Protocol: Dose Management Condition: Tuesday Dose/Route: 2 mg Instruction: 1 x 2 mg tablet Condition: Tuesday Dose/Route: 5 mg Instruction: 1 x 5 mg tablet Condition: Tuesday Dose/Route: 2 mg Instruction: 1 x 2 mg tablet Condition: Tuesday Dose/Route: 2 mg Instruction: 1 x 2 mg tablet Condition: Dose/Route: 2 mg Instruction: 1 x 2 mg tablet Condition: Tuesday Dose/Route: 5 mg Instruction: 1 x 5 mg tablet Condition: Tuesday Dose/Route: 2 mg Instruction: 1 x 2 mg tablet Protocol Text: Adjustment Start Date: Tuesday07/17/24 INR Value: 3.7 INR Date: 07/17/24 Recheck Date: 07/20/24 Rx Instructions: Take one tablet by mouth on Tuesday, Tuesday, and Tuesday; OR as directed Referrals / Follow Up: Guillermo Pritchard MD [Primary Care Provider] - Disposition Disposition (needs filled in before D/C Order can be placed): Hospice in Home
--- NOTE | 2024-07-29 12:02 | NURSING ---
per hospice request. magnet placed over pacer to turn pacer off.
== END 2024-07-29 12:10 | disposition hospice, home (50) | DRG 683 ==
LOC: ED 17:40 → PCU 18:22 → MS3 22:15
PROVIDERS: Admitting Provider Family Medicine; Emergency Provider Emergency Medicine; PCP Family Medicine; Referring Provider Family Medicine; Visit Provider Internal Medicine
DX: N17.9 Acute kidney failure, unspecified (principal); C78.01 Secondary malignant neoplasm of right lung; E46 Unspecified protein-calorie malnutrition; M48.54XA Collapsed vertebra, not elsewhere classified, thoracic region, initial encounter for fracture; I13.0 Hypertensive heart and chronic kidney disease with heart failure and stage 1 through stage 4 chronic kidney disease, or unspecified chronic kidney disease; Z68.43 Body mass index [BMI] 50.0-59.9, adult; J96.11 Chronic respiratory failure with hypoxia; I50.22 Chronic systolic (congestive) heart failure; D69.6 Thrombocytopenia, unspecified; R62.7 Adult failure to thrive; J44.9 Chronic obstructive pulmonary disease, unspecified; N18.31 Chronic kidney disease, stage 3a; D50.9 Iron deficiency anemia, unspecified; Z95.4 Presence of other heart-valve replacement; I48.0 Paroxysmal atrial fibrillation; F17.210 Nicotine dependence, cigarettes, uncomplicated; K21.9 Gastro-esophageal reflux disease without esophagitis; F17.220 Nicotine dependence, chewing tobacco, uncomplicated; E78.00 Pure hypercholesterolemia, unspecified; I25.10 Atherosclerotic heart disease of native coronary artery without angina pectoris; R53.81 Other malaise; Z79.01 Long term (current) use of anticoagulants; Z79.51 Long term (current) use of inhaled steroids; Q63.1 Lobulated, fused and horseshoe kidney; G89.4 Chronic pain syndrome; R79.1 Abnormal coagulation profile; Z95.5 Presence of coronary angioplasty implant and graft; Z79.02 Long term (current) use of antithrombotics/antiplatelets; Z95.0 Presence of cardiac pacemaker; Z95.1 Presence of aortocoronary bypass graft; Z86.73 Personal history of transient ischemic attack (TIA), and cerebral infarction without residual deficits; Z79.899 Other long term (current) drug therapy; R29.6 Repeated falls; Z85.528 Personal history of other malignant neoplasm of kidney; R13.10 Dysphagia, unspecified; G47.00 Insomnia, unspecified
CPT/HCPCS: 36415; 72128; 72131; 80053; 81001; 85025; 85610; 94640; 97802; 99285; A4216; J2405